=== PATIENT | female | born 1990 | race Caucasian/White ===

== ENCOUNTER 2023-04-08 10:06 | Outpatient (OUT) | payer OTHER, SELFPAY ==
--- NOTE | 2023-04-08 10:07 | US_ITS ---
[address] [address] Patient Name: AUDREY DOZIER MRN: [id number] date: 1990 Sex: F Assigned Patient Location: US Current Patient Location: US Accession/Order Number: [id number] Exam Date: 04/08/2023 10:09 Report Date: 04/08/2023 11:36 At the request of: CHEYENNE BLOOM Procedure: US OB transvaginal EXAMINATION: US OB transvaginal HISTORY: Missed menses COMPARISON: No relevant comparison available. FINDINGS: Torres intrauterine gestation Gestational sac: 3.4 cm, 8 weeks 4 days CRL: 1.9 cm, 8 weeks 3 days Yolk sac: 3.3 mm Heart rate: 160 beats minute Cervix: Closed, 4.6 cm The uterus is normal, anteverted The ovaries are normal. 2.2 cm right ovarian cystic lesion, favor a corpus luteal cyst Clinical age: 8 weeks 1 day Clinical GUNJAN: 11/17/2023 Ultrasound age: 8 weeks 3 days Ultrasound GUNJAN: 11/15/2023 US/US OB transvaginal IMPRESSION: Viable torres intrauterine gestation measuring 8 weeks 3 days Electronically authenticated by: ROSARIO GARRISON Date: 04/08/2023 11:36
[2023-04-08 14:03] LABS: Basophils Percent Auto 0.3 % (0.2-2.0); Eosinophils Absolute Auto 0.1 10^3/uL (0.0-0.7); Eosinophils Percent Auto 0.9 % (0.9-7.0); Hematocrit 36.7 % (36.0-48.0); Hemoglobin 12.5 g/dL (12.0-16.0); Immature Granulocytes Abs Auto 0.03 10^3/uL (0.00-0.03); Immature Granulocytes Pct Auto 0.3 % (0.0-0.5); Lymphocytes Absolute Auto 2.3 10^3/uL (1.2-3.8); Lymphocytes Percent Auto 20.1 % (20.5-60.0); Mean Corpuscular HGB Conc 34.1 g/dL (29.9-35.2); Mean Corpuscular Hemoglobin 29.1 pg (26.7-34.0); Mean Corpuscular Volume 85.3 fL (81.0-99.0); Mean Platelet Volume 10.6 fL (9.5-13.5); Monocytes Absolute Auto 0.6 10^3/uL (0.3-0.8); Monocytes Percent Auto 4.7 % (1.7-12.0); Neutrophils Absolute Auto 8.6 10^3/uL (1.4-6.5); Neutrophils Percent Auto 73.7 % (43.0-75.0); Platelet Count 349 10^3/uL (150-450); Red Cell Distribution Width 13.4 % (11.0-15.0); White Blood Count 11.6 10^3/uL (4.0-11.0)
[2023-04-08 14:07] LABS: Estimated Average Glucose 97 mg/dL
[2023-04-08 14:47] LABS: Thyroid Stimulating Hormone 1.054 uIU/mL (0.358-3.740)
[2023-04-09 07:41] LABS: Rubella Antibodies, IgG 1.45 index (Immune >0.99)
[2023-04-09 10:49] LABS: HBsAg Screen Negative (Negative); HCV Ab Non Reactive (Non Reactive); HIV Ab/p24 Ag Screen Non Reactive (Non Reactive)
[2023-04-09 11:04] LABS: Rapid Plasma Reagin, Quant Non Reactive titer (NonRea<1:1)
== END 2023-04-08 10:07 | disposition home or self-care (01) ==
LOC: US 10:06
PROVIDERS: Visit Provider Obstetrics & Gynecology
DX: Z34.91 Encounter for supervision of normal pregnancy, unspecified, first trimester (principal); Z3A.08 8 weeks gestation of pregnancy; N92.6 Irregular menstruation, unspecified
CPT/HCPCS: 36415; 76817; 83036; 84443; 85025; 86592; 86762; 86803; 86850; 86900; 86901; 87086; 87340; 87389

== ENCOUNTER 2023-05-17 20:18 | Emergency (ER) | payer OTHER, SELFPAY ==
[2023-05-17] VITALS (11 sets, daily range): BP systolic 99–110; BP diastolic 58–67; PULSE 76–96; RESP 13–20; O2SAT 96–100; BMI 25.1
--- OUTSIDE RECORDS SUMMARY | 2023-05-17 20:32 | XMS_ITS | CCD ---
Author Name Unknown Address [address] [place] [address] Organization [facility] Care Team Providers Care Customer Operations Manager Name Role Phone Nick Leonardo DO Primary Care Provider NICK LEONARDO Primary Care Unavailable YOGI MARQUEZ Referring Unavailable NICK LEONARDO Primary Care Unavailable YOGI MARQUEZ Referring Unavailable YOGI MARQUEZ Referring Unavailable JORDEN, NICK Abdullahi Primary Care Unavailable NICK LEONARDO Primary Care Unavailable YOGI MARQUEZ Referring Unavailable Cristal Guidry Unavailable WOLF ., DR QUINN Attending Unavailable WOLF ., DR QUINN Admitting Unavailable WOLF ., DR QUINN Consulting Unavailable JORDEN, DR TUCKER Primary Care Unavailable WOLF ., DR QUINN Consulting Unavailable WOLF ., DR QUINN Attending Unavailable JORDEN, DR TUCKER Primary Care Unavailable WOLF ., DR QUINN Admitting Unavailable WOLF ., DR QUINN Admitting Unavailable WOLF ., DR QUINN Attending Unavailable WOLF ., DR QUINN Consulting Unavailable JORDEN, DR TUCKER Primary Care Unavailable WOLF ., DR QUINN Consulting Unavailable WOLF ., DR QUINN Attending Unavailable WOLF ., DR QUINN Admitting Unavailable JORDEN, DR TUCKER Primary Care Unavailable ZIEBER, DR YOGI Witt Consulting Unavailable WOLF ., DR QUINN Consulting Unavailable WOLF ., DR QUINN Attending Unavailable WOLF ., DR QUINN Admitting Unavailable JORDEN, DR TUCKER Primary Care Unavailable WOLF ., DR QUINN Admitting Unavailable WOLF ., DR QUINN Attending Unavailable WOLF ., DR QUINN Consulting Unavailable JORDEN, DR TUCKER Primary Care Unavailable WOLF ., DR QUINN Admitting Unavailable WOLF ., DR QUINN Attending Unavailable JORDEN, DR TUCKER Primary Care Unavailable JC, DR CAMILO Witt Consulting Unavailable JC, DR CAMILO Witt Attending Unavailable JC, DR CAMILO Witt Admitting Unavailable JORDEN, DR TUCKER Primary Care Unavailable DERIC VO Consulting Unavailable GLENN ., BRENT Consulting Unavailable MARY, ROSARIO Consulting Unavailable JORDEN, DR TUCKER Primary Care Unavailable KARASIK ., DR DURHAM Admitting Unavailabl e KARASIK ., DR DURHAM Consulting Unavailabl e KARASIK ., DR DURHAM Attending Unavailabl e WOLF ., DR QUINN Consulting Unavailable GEMBUS, HOSEA Consulting Unavailable WOLF ., DR QUINN Procedure Practitioner Unavail able WOLF ., DR QUINN Consulting Unavailable WOLF ., DR QUINN Attending Unavailable WOLF ., DR QUINN Admitting Unavailable REQUEST, DR FLORES LISTED Primary Care Unavaila ana ZIALISA, DR YOGI Witt Consulting Unavailable WOLF ., DR QUINN Admitting Unavailable WOLF ., DR QUINN Consulting Unavailable WOLF ., DR QUINN Attending Unavailable BALL, DR TUCKER Primary Care Unavailable WOLF ., DR QUINN Attending Unavailable WOLF ., DR QUINN Admitting Unavailable WOLF ., DR QUINN Consulting Unavailable JORDEN, DR TUCKER Primary Care Unavailable GILBERTOEBGOKUL, DR YOGI Witt Consulting Unavailable WOLF ., DR QUINN Attending Unavailable WOLF ., DR QUINN Admitting Unavailable WOLF ., DR QUINN Consulting Unavailable JORDEN, DR TUCKER Primary Care Unavailable WAYNE, DR YOGI Witt Consulting Unavailable Jorden, Nick Unavailable CHEYENNE MEADE Attending Unavailable Medications Current Medications Medication Drug Class(es) Dates Sig (Normalized) Sig (Original) 24 hr metoprolol succinate 25 mg extended release oral tablet (3 sources) beta-Adrenergic Ekta take 1 tablet by mouth every twenty-four hours Metoprolol Succinate ER 25 MG 1 tablet Orally Once a day Active Metoprolol Succi brooke Active predniSONE 20 mg oral tablet (2 sources) Start: 07-28-2022 take 1 tablet by mouth twice daily predniSONE 20 MG 1 tablet Orally bid w/ food for 5 days July, Active (3 sources) Active Vit-Fe Fumarate-FA (PREPLUS) 27-1 MG TABS (1 source) Start: 02-10-2021 take 1 tablet by mouth once daily Vit-Fe Fumarate-FA (PREPLUS) 27-1 MG TABS TAKE ONE TABLET BY MOUTH ONCE DAILY FOR 30 DAYS 0 02/10/2021 Active Completed/Discontinued Medications Medication Drug Class(es) Dates Sig (Normalized) Sig (Original) omeprazole 20 mg delayed release oral capsule (2 sources) Proton Pump Inhibitor take 1 capsule by mouth once daily Omeprazole 20 MG 1 capsule 30 minutes before morning meal Orally Once a day Not-Taking Problems Active Problems Problem Classification Problem Date Documented Date Episodic/Chronic Anxiety disorders (2 sources) Generalized anxiety disorder; Translations: [Generalized anxiety disorder] Chronic Cardiac dysrhythmias (2 sources) Palpitations; Translations: [Palpitations] Episodic Conditions associated with dizziness or vertigo (2 sources) Lightheadedness; Translations: [Dizziness and giddiness] Episodic Immunizations and screening for infectious disease (6 sources) Contact with and (suspected) exposure to other viral communicable diseases; Translations: [Encounter for screening for human papillomavirus (HPV)] Onset: 08-20-2021 Episodic Lymphadenitis (1 source) Localized enlarged lymph nodes Episodic Other infections; including parasitic (1 source) 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; Translations: [Post-COVID syndrome] 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-2021 03-09-2021 Chronic Other skin disorders (1 source) Sebaceous cyst Episodic Other upper respiratory infections (2 sources) Acute pharyngitis, unspecified; Translations: [Acute upper respiratory infection, unspecified] Episodic Sprains and strains (1 source) Strain of muscle, fascia and tendon at neck level, initial encounter Episodic Unclassified (1 source) CONTACT W/AND (SUSP) EXPOS COVID-19; Translations: [CONTACT W/AND (SUSP) EXPOS COVID-19] Onset: 09-03-2021 Past or Other Problems Problem Classification Problem Date Documented Date Episodic/Chronic Diabetes mellitus without complication (4 sources) Other abnormal glucose; Translations: [OTHER ABNORMAL GLUCOSE] Onset: 12-11-2021 Episodic Hemorrhage during ; abruptio placenta; placenta previa (5 sources) Low lying placenta NOS or without hemorrhage, unspecified trimester; Translations: [Low lying placenta NOS or without hemorrhage, second trimester] Onset: 09-18-2021 Episodic OB-related trauma to perineum and vulva (1 source) Fourth degree perineal laceration during delivery; Translations: [FOURTH DEG PERINEAL LAC DUR DELIV] Onset: 02-04-2022 Episodic Other complications of (4 sources) Maternal care for excessive growth, third trimester, not applicable or unspecified; Translations: [MAT CARE EXCSS FTL GRTH 3RD TRI UNS] Onset: 01-15-2022 Episodic Other complications of (1 source) Other specified related conditions, second trimester; Translations: [OTH SPEC PREG RELATED COND 2ND TRI] Onset: 09-03-2021 Episodic Other female genital disorders (1 source) Other specified noninflammatory disorders of vagina; Translations: [OTH SPEC NONINFLAMMATORY D/O VAGINA] Onset: 08-20-2021 Episodic Other lower respiratory disease (2 sources) Dyspnea; Translations: [Shortness of breath] Onset: 08-22-2021 Episodic Other lower respiratory disease (2 sources) Shortness of breath; Translations: [SHORTNESS OF BREATH] Onset: 09-03-2021 Episodic Other lower respiratory disease (1 source) Other forms of dyspnea; Translations: [OTHER FORMS OF DYSPNEA] Onset: 09-03-2021 Episodic Other and delivery including normal (9 sources) Encounter for routine follow-up; Translations: [Single live ] Onset: 09-04-2021 Episodic Other screening for suspected conditions (not mental disorders or infectious disease) (16 sources) Encounter for screening for Streptococcus B; Translations: [Encounter for screening for diabetes mellitus] Onset: 08-18-2021 Episodic Residual codes; unclassified (1 source) 38 weeks gestation of ; Translations: [38 WEEKS GESTATION OF ] Onset: 02-04-2022 Episodic Residual codes; unclassified (1 source) 37 weeks gestation of ; Translations: [37 WEEKS GESTATION OF ] Onset: 01-15-2022 Episodic Residual codes; unclassified (1 source) 32 weeks gestation of ; Translations: [32 WEEKS GESTATION OF ] Onset: 12-13-2021 Episodic Residual codes; unclassified (1 source) 20 weeks gestation of ; Translations: [20 WEEKS GESTATION OF ] Onset: 09-18-2021 Episodic Residual codes; unclassified (1 source) 17 weeks gestation of ; Translations: [17 WEEKS GESTATION OF ] Onset: 09-03-2021 Episodic Results Test Name Value Interpretation Reference Range Facility COVID/FLU/RSV RT-PCRon 03-10 -2023 SARS-CoV-2 (COVID-19) RNA DEVIN+probe Ql (Unsp spec) Negative [facility] Other COVID/FLU/RSV RT-PCR Negative [employer] Other [facility] 06-04-2022 S. pyogenes Org specific cx Ql (Throat) Negative [facility] Other Quick St[facility] Other CBC AUTO DIFFon 01-24-2022 BASO # 0.1 103/ul Normal 0.0-0.1 [facility] Comment on above: Performed By: #### A FPTET #### [facility] [address] [place] [address] Dr. Belkys Fajardo Basophils/100 WBC (Bld) 0.3 % Normal 0.2-2.0 [facility] Comment on above: Performed By: #### A FPTET #### [facility] [address] [place] [address] Dr. Belkys Fajardo EO # 0.1 103/ul Normal 0.0-0.7 [facility] Comment on above: Performed By: #### A FPTET #### [facility] [address] [place] [address] Dr. Belkys Fajardo Eosinophils/100 WBC (Bld) 0.9 % Normal 0.9-7.0 [facility] Comment on above: Performed By: #### A FPTET #### [facility] [address] [place] [address] Dr. Belkys Fajardo Erythrocyte distribution width (RBC) [Ratio] 14.0 % Normal 11.0-15.0 [facility] Comment on above: Performed By: #### A FPTET #### [facility] [address] [place] [address] Dr. Belkys Fajardo Hematocrit (Bld) [Volume fraction] 24.8 % Critically low 36.0-48.0 [facility] Comment on above: Performed By: #### A FPTET #### [facility] [address] [place] [address] Dr. Belkys Fajardo Hemoglobin (Bld) [Mass/Vol] 8.2 g/dL Critically low 12.0-16.[address] [facility] Comment on above: Performed By: #### A FPTET #### [facility] [address] [place] [address] Dr. Belkys Fajardo IG # 0.23 10e3/ul Critically high 0.00-0.03 [facility] Comment on above: Performed By: #### A FPTET #### [facility] [address] [place] [address] Dr. Belkys Fajardo IG % 1.5 % Critically high 0.0-0.5 [facility] Comment on above: Performed By: #### A FPTET #### [facility] [address] [place] [address] Dr. Belkys Fajardo LYMPH # 2.4 103/ul Normal 1.2-3.8 [facility] Comment on above: Performed By: #### A FPTET #### [facility] [address] [place] [address] Dr. Belkys Fajardo Lymphocytes/100 WBC (Bld) 15.5 % Critically low 20.5-60.0 [facility] Comment on above: Performed By: #### A FPTET #### [facility] [address] [place] [address] Dr. Belkys Fajardo MANUAL DIFF REQ NO Normal [facility] Comment on above: Performed By: #### A FPTET #### [facility] [address] [place] [address] Dr. Belkys Fajardo MCH (RBC) [Entitic mass] 28.5 pg Normal 26.7-34.[address] [facility] Comment on above: Performed By: #### A FPTET #### [facility] [address] [place] [address] Dr. Beklys Fajardo MCHC (RBC) [Mass/Vol] 33.1 g/dL Normal 29.9-35.[address] [facility] Comment on above: Performed By: #### A FPTET #### [facility] [address] [address] [address] Belkys Fajardo MCV (RBC) [Entitic vol] 86.1 fL Normal 81.0-99.[address] [facility] Comment on above: Performed By: #### A FPTET #### [facility] [address] [address] [address] Belkys Fajardo MONO # 0.8 103/ul Normal 0.3-0.[address] [facility] Comment on above: Performed By: #### A FPTET #### [facility] [address] [place] [address] Dr. Belkys Fajardo Monocytes/100 WBC (Bld) 5.4 % Normal 1.7-12.[address] [facility] Comment on above: Performed By: #### A FPTET #### [facility] [address] [place] [address] Dr. Belkys Fajardo NEUT # 11.6 103/ul Critically high 1.4-6.[address] [facility] Comment on above: Performed By: #### A FPTET #### [facility] [address] [place] [address] Dr. Belkys Fajardo Neutrophils/100 WBC (Bld) 76.4 % Critically high 43.0-75.[address] [facility] Comment on above: Performed By: #### A FPTET #### [facility] [address] [place] [address] Dr. Belkys Fajardo Platelet mean volume (Bld) [Entitic vol] 10.2 fL Normal 9.5-13.[address] [facility] Comment on above: Performed By: #### A FPTET #### [facility] [address] [place] [address] Dr. Belkys Fajardo PLT 235 103/ul Normal 150-[address] [facility] Comment on above: Performed By: #### A FPTET #### [facility] [address] [place] [address] Dr. Belkys Fajardo RBC 2.88 106/ul Critically low 4.20-5.40 [facility] Comment on above: Performed By: #### A FPTET #### [facility] [address] [place] [address] Dr. Belkys Fajardo WBC 15.2 103/ul Critically high 4.0-11.[address] [facility] Comment on above: Performed By: #### A FPTET #### [facility] [address] [place] [address] Dr. Belkys Fajardo CBC AUTO DIFFon 01-23-2022 BASO # 0.1 103/ul Normal 0.0-0.[address] [facility] Comment on above: Performed By: #### A FPTET #### [facility] [address] [place] [address] Dr. Belkys Fajardo Basophils/100 WBC (Bld) 0.4 % Normal 0.2-2.0 [facility] Comment on above: Performed By: #### A FPTET #### [facility] [address] [place] [address] Dr. Belkys Fajardo EO # 0.1 103/ul Normal 0.0-0.7 [facility] Comment on above: Performed By: #### A FPTET #### [facility] [address] [place] [address] Dr. Belkys Fajardo Eosinophils/100 WBC (Bld) 0.5 % Critically low 0.9-7.[address] [facility] Comment on above: Performed By: #### A FPTET #### [facility] [address] [place] [address] Dr. Belkys Fajardo Erythrocyte distribution width (RBC) [Ratio] 13.8 % Normal 11.0-15.[address] [facility] Comment on above: Performed By: #### A FPTET #### [facility] [address] [place] [address] Dr. Belkys Fajardo Hematocrit (Bld) [Volume fraction] 32.5 % Critically low 36.0-48.[address] [facility] Comment on above: Performed By: #### A FPTET #### [facility] [address] [place] [address] Dr. Belkys Fajardo Hemoglobin (Bld) [Mass/Vol] 11.0 g/dL Critically low 12.0-16.0 [facility] Comment on above: Performed By: #### A FPTET #### [facility] [address] [address] [address] Belkys Fajardo IG # 0.31 10e3/ul Critically high 0.00-0.03 [facility] Comment on above: Performed By: #### A FPTET #### [facility] [address] [address] [address] Belkys Fajardo IG % 1.6 % Critically high 0.0-0.5 [facility] Comment on above: Performed By: #### A FPTET #### [facility] [address] [address] [address] Belkys Fajardo LYMPH # 2.0 103/ul Normal 1.2-3.8 [facility] Comment on above: Performed By: #### A FPTET #### [facility] [address] [place] [address] Dr. Belkys Fajardo Lymphocytes/100 WBC (Bld) 10.2 % Critically low 20.5-60.0 [facility] Comment on above: Performed By: #### A FPTET #### [facility] [address] [place] [address] Dr. Belkys Fajardo MANUAL DIFF REQ NO Normal [facility] Comment on above: Performed By: #### A FPTET #### [facility] [address] [address] [address] Belkys Fajardo MCH (RBC) [Entitic mass] 28.4 pg Normal 26.7-34.0 [facility] Comment on above: Performed By: #### A FPTET #### [facility] [address] [address] [address] Belkys Fajardo MCHC (RBC) [Mass/Vol] 33.8 g/dL Normal 29.9-35.2 [facility] Comment on above: Performed By: #### A FPTET #### [facility] [address] [place] [address] Dr. Belkys Fajardo MCV (RBC) [Entitic vol] 83.8 fL Normal 81.0-99.0 [facility] Comment on above: Performed By: #### A FPTET #### [facility] [address] [place] [address] Dr. Belkys Fajardo MONO # 0.9 103/ul Critically high 0.3-0.8 [facility] Comment on above: Performed By: #### A FPTET #### [facility] [address] [place] [address] Dr. Belkys Fajardo Monocytes/100 WBC (Bld) 4.8 % Normal 1.7-12.[address] [facility] Comment on above: Performed By: #### A FPTET #### [facility] [address] [place] [address] Dr. Belkys Fajardo NEUT # 16.0 103/ul Critically high 1.4-6.[address] [facility] Comment on above: Performed By: #### A FPTET #### [facility] [address] [place] [address] Dr. Belkys Fajardo Neutrophils/100 WBC (Bld) 82.5 % Critically high 43.0-75.[address] [facility] Comment on above: Performed By: #### A FPTET #### [facility] [address] [place] [address] Dr. Belkys Fajardo Platelet mean volume (Bld) [Entitic vol] 10.1 fL Normal 9.5-13.[address] [facility] Comment on above: Performed By: #### A FPTET #### [facility] [address] [place] [address] Dr. Belkys Fajardo PLT 301 103/ul Normal 150-[address] [facility] Comment on above: Performed By: #### A FPTET #### [facility] [address] [place] [address] Dr. Belkys Fajardo RBC 3.88 106/ul Critically low 4.20-5.40 [facility] Comment on above: Performed By: #### A FPTET #### [facility] [address] [place] [address] Dr. Belkys Fajardo WBC 19.3 103/ul Critically high 4.0-11.[address] [facility] Comment on above: Performed By: #### A FPTET #### [facility] [address] [place] [address] Dr. Belkys Fajardo CULTURE URINEon 01-23-2022 CULTURE URINE Culture Observations : LIGHT GROWTH OF MIXED GENITAL HEYDI. NO POTENTIAL PATHOGENS SEEN. Normal [facility] Comment on above: Performed By: #### U ACSIND, UMICRO #### [facility] [address] [address] [address] Belkys Fajardo Covid-19 PCR (CVDTBH)on 12-27 SARS-CoV-2 (COVID-19) RNA DEVIN+probe Ql (Unsp spec) Not detected Normal NOT DETECTED [facility] Comment on above: Result Comment: When diagnostic testing is negative, the possibility of a false negative should be considered in the context of a patient's recent exposures and the presence of clinical signs and symptoms consistent with SARS-CoV-2. This test is not yet approved or cleared by the [place] FDA. When there are no FDA-approved or cleared tests available, and other criteria are met, FDA can make tests available under an emergency access mechanism called an Emergency Use Authorization (EUA). The EUA for this test is supported by the [employer] of Health and Human Service's declaration that circumstances exist to justify the emergency use of in vitro diagnostics for the detection and/or diagnosis of the virus that causes COVID-19. This EUA will remain in effect for the duration of the COVID-19 declaration justifying emergency of IVDs, unless it is terminated or revoked by the FDA (after which the test may no longer be used). Performed By: #### C VDTBH #### [facility] [address] [place] [address] Dr. Belkys Fajardo DRUG SCREEN RAPID (URINE)on 01-23-2022 AMP Negative Normal NEGATIVE [facility] Comment on above: Performed By: #### A FPTET #### [facility] [address] [place] [address] [id number] [address] Belkys Fajardo BAR Negative Normal NEGATIVE [facility] Comment on above: Performed By: #### A FPTET #### [facility] [address] [place] [address] Dr. Belkys Fajardo BUP Negative Normal NEGATIVE [facility] Comment on above: Performed By: #### A FPTET #### [facility] [address] [place] [address] Dr. Belkys Fajardo BZO Negative Normal NEGATIVE [facility] Comment on above: Performed By: #### A FPTET #### [facility] [address] [place] [address] Dr. Belkys Fajardo VALENCIA Negative Normal NEGATIVE [facility] Comment on above: Performed By: #### A FPTET #### [facility] [address] [place] [address] Dr. Belkys Fajardo CUT-OFFS SEE BELOW Normal [facility] Comment on above: Result Comment: AMP (Amphetamine): 500ng/mL, BAR (Barbituates): 200 ng/mL, BZO (Benzodiazepines): 150 ng/mL, BUP (Buprenorphine): 10 ng/mL, VALENCIA (Cocaine): 150 ng/mL, mAMP (Methamphetamine): 500 ng/mL, MTD (Methadone): 200 ng/mL, OPI (Opiates): 100 ng/mL, OXY (Oxycodone): 100 ng/mL, PCP (Phencyclidine): 25 ng/mL, PPX (Propoxyphene): 300 ng/mL, THC (Cannabinoids): 50 ng/mL, TCA (Trycyclic Antidepressants): 300 ng/mL Performed By: #### A FPTET #### [facility] [address] [place] [address] Dr. Belkys Fajardo DRUG CUT HEADER DRUG CLASS TEST SYSTEM CUT-OFF CONCENTRATIONS ARE FOLLOWS: Normal [facility] Comment on above: Performed By: #### A FPTET #### [facility] [address] [place] [address] Dr. Belkys Fajardo mAMP Negative Normal NEGATIVE [facility] Comment on above: Performed By: #### A FPTET #### [facility] [address] [place] [address] Dr. Belkys Fajardo MTD Negative Normal NEGATIVE [facility] Comment on above: Performed By: #### A FPTET #### [facility] [address] [address] [address] Belkys Fajardo OPI Negative Normal NEGATIVE [facility] Comment on above: Performed By: #### A FPTET #### [facility] [address] [place] [address] Dr. Belkys Fajardo OXY Negative Normal NEGATIVE [facility] Comment on above: Performed By: #### A FPTET #### [facility] [address] [address] [address] Belkys Fajardo PCP Negative Normal NEGATIVE [facility] Comment on above: Performed By: #### A FPTET #### [facility] [address] [place] [address] Dr. Belkys Fajardo PPX Negative Normal NEGATIVE [facility] Comment on above: Performed By: #### A FPTET #### [facility] [address] [place] [address] Dr. Belkys Fajardo TCA Negative Normal NEGATIVE [facility] Comment on above: Performed By: #### A FPTET #### [facility] [address] [place] [address] Dr. Belkys Fajardo THC Negative Normal NEGATIVE [facility] Comment on above: Performed By: #### A FPTET #### [facility] [address] [place] [address] Dr. Belyks Fajardo TYPE AND SCREENon 01-23-2022 TYPE AND SCREEN Negative Normal [facility] Comment on above: Performed By: #### U MARIO UMICRO #### [facility] [address] [place] [address] Dr. Belkys Fajardo UA (CLEAN/CATCH) BIT SHARPENER/MICRO I F IND.on 01-23-2022 Bilirubin Ql (U) Negative Normal NEGATIVE [facility] Comment on above: Performed By: #### U MARIO UMICRO #### [facility] [address] [place] [address] Dr. Belkys Fajardo Clarity (U) CLEAR Normal CLEAR [facility] Comment on above: Performed By: #### U MARIO UMICRO #### [facility] [address] [address] [address] Belkys Fajardo Color (U) LT. YELLOW Normal YELLOW [facility] Comment on above: Performed By: #### U ACSIND, UMICRO #### [facility] [address] [address] [address] Belkys Fajardo Glucose Ql (U) Negative Normal NEGATIVE [facility] Comment on above: Performed By: #### U ACSIND, UMICRO #### [facility] [address] [address] [address] Belkys Fajardo Hemoglobin Ql (U) TRACE-INTACT Abnormal NEGATIVE [facility] Comment on above: Performed By: #### U ACSIND, UMICRO #### [facility] [address] [place] [address] Dr. Belkys Fajardo Ketones Ql (U) Negative Normal NEGATIVE [facility] Comment on above: Performed By: #### U ACSIND, UMICRO #### [facility] [address] [address] [address] Belkys Fajardo LEUKOCYTES MODERATE Abnormal NEGATIVE [facility] Comment on above: Performed By: #### U ACSTAMELA, UMICRO #### [facility] [address] [address] [address] Belkys Fajardo Nitrite Ql (U) Negative Normal NEGATIVE [facility] Comment on above: Performed By: #### U ACSIND, UMICRO #### [facility] [address] [address] [address] Belkys Fajardo pH (U) 6.5 [pH] Normal 5-9 [facility] Comment on above: Performed By: #### U ACSIND, UMICRO #### [facility] [address] [address] [address] Belkys Fajardo SPEC GRAVITY 1.015 Normal 1.005-<=1.025 [facility] Comment on above: Performed By: #### U ACSIND, UMICRO #### [facility] [address] [address] [address] Belkys Fajardo UA PROTEIN Negative Normal NEGATIVE/ TRACE [facility] Comment on above: Performed By: #### U ACSIND, UMICRO #### [facility] [address] [address] [address] Belkys Fajardo UR MICRO IND INDICATED Normal [facility] Comment on above: Performed By: #### U ACSIND, UMICRO #### [facility] [address] [address] [address] Belkys Fajardo Urobilinogen Qn (U) 0.2 {Jakob'U}/dL Normal 0.2 - 1. [address] [facility] Comment on above: Performed By: #### U ACSIND, UMICRO #### [facility] [address] [address] [address] Belkys Fajardo URINE MICROSCOPIC ONLYon BACTERIA SMALL Abnormal NONE SEEN [facility] Comment on above: Performed By: #### U ACSIND, UMICRO #### [facility] [address] [place] [address] Dr. Belkys Fajardo Bacteria identified Cx Nom (U) INDICATED Normal [facility] Comment on above: Performed By: #### U ACSIND, UMICRO #### [facility] [address] [place] [address] Dr. Belkys Fajardo CAST NONE SEEN Normal NONE SEEN [facility] Comment on above: Performed By: #### U ACSIND, UMICRO #### [facility] [address] [place] [address] Dr. Belkys Fajardo Crystals LM Nom (Urine sed) NONE SEEN Normal NONE SEEN [facility] Comment on above: Performed By: #### U ACSIND, UMICRO #### [facility] [address] [address] [address] Belkys Fajardo Epithelial cells LM Ql (Urine sed) FEW Abnormal NONE SEEN /RARE [facility] Comment on above: Performed By: #### U ACSIND, UMICRO #### [facility] [address] [address] [address] Belkys Fajardo MUCOUS NONE SEEN Normal NONE SEEN [facility] Comment on above: Performed By: #### U ACSIND, UMICRO #### [facility] [address] [address] [address] Belkys Fajardo RBC NONE SEEN Abnormal 0-2 [facility] Comment on above: Performed By: #### U JOSÉ ANTONIO MARTIN #### [facility] [address] [address] [address] Belkys Fajardo WBC 5-10 Abnormal NONE SEEN [facility] Comment on above: Performed By: #### U MARIO UMNARAYANRO #### [facility] [address] [address] [address] Belkys Fajardo US PREG GROWTHon 01-12-2022 US PREG GROWTH EXAMINATION: US PREG GROWTH HISTORY: Large for gestation age fetus COMPARISON: Ultrasound growth 12/08/2021 FINDINGS: Heart Rate: 149.0 bpm Number: 1.0 Position: CEPHALIC Amniotic Fluid Volume: 9.5 cm; between fifth and 95th percentile Maximum Vertical Pocket: 3.3 cm BIOMETRY: BPD: 8.9 cm cm; 36 weeks 0 days HC: 32.8 cmcm; 37 weeks 2 days AC: 33.8 cm cm; 37 weeks 5 days FL: 7.5 cm cm; 38 weeks 2 days EFW: 3256.7 grams; 67% FL/AC: 22.1 FL/BPD: 84.0 HC/AC: 1.0 GESTATIONAL AGE: Age by EDC: 37 weeks 2 days GUNJAN by EDC: 01/31/2022 Age by US: 37 weeks 2 days GUNJAN by US: 01/31/2022 IMPRESSION: 1. Single live intrauterine with growth detailed above. Electronically authenticated by: YOGI BLACK Date: 2022-01-12 21:[address] [facility] GROUP B STREP CULTUREon 12-26 S. agalactiae Ag Ql (Unsp spec) Culture Observations: NEGATIVE FOR GROUP B STREPTOCOCCUS. Normal [facility] Comment on above: Performed By: #### G BSCX #### [facility] [address] [place] [address] Dr. Belkys Fajardo GTT 3 HR PREGon 12-11-2021 Glucose [Mass/Vol] 91 mg/dL Normal 74-106 [facility] Comment on above: Performed By: #### G TT3P #### [facility] [address] [address] [address] Belkys Fajardo Glucose [Mass/Vol] 172 mg/dL Normal [facility] Comment on above: Performed By: #### G TT3P #### [facility] [address] [address] [address] Belkys Fajardo Glucose [Mass/Vol] 148 mg/dL Normal [facility] Comment on above: Performed By: #### G TT3P #### [facility] [address] [address] [address] Belkys Fajardo Glucose [Mass/Vol] 58 mg/dL Normal [facility] Comment on above: Performed By: #### G TT3P #### [facility] [address] [address] [address] Belkys Fajardo US PREG GROWTHon 12-08-2021 US PREG GROWTH EXAMINATION: US PREG GROWTH HISTORY: Large for gestation age fetus COMPARISON: Ultrasound anatomy 09/16/2021 FINDINGS: Heart Rate: 165.0 bpm Number: 1.0 Position: CEPHALIC Amniotic Fluid Volume: 14.4 cm Maximum Vertical Pocket: 4.9 cm BIOMETRY: BPD: 8.1 cm cm; 32 weeks 4 days; HC: 30.6 cmcm; 34 weeks 0 days AC: 29.5 cm cm; 33 weeks 3 days FL: 6.7 cm cm; 34 weeks 2 days EFW: 2247.3 grams; 82% FL/AC: 22.6 FL/BPD: 81.9 HC/AC: 1.0 GESTATIONAL AGE: Age by EDC: 32 weeks 2 days GUNJAN by EDC: 01/31/2022 Age by US: 33 weeks, 4 days GUNJAN by US: 01/22/2022 IMPRESSION: 1. Single live intrauterine with growth detailed above. Electronically authenticated by: YOGI BLACK Date: 2021-12-08 16:52 Normal [facility] GLUCOSE - 1HRon 11-12-2021 Glucose [Mass/Vol] 143 mg/dL Critically high 74-106 T [facility] Comment on above: Performed By: #### U ACSIND UMICRO #### [facility] [address] [address] [address] Belkys Fajardo HEMOGRAM AND PLATELon 2021 Hematocrit (Bld) [Volume fraction] 31.7 % Critically low 36.0-48.0 [facility] Comment on above: Performed By: #### A FPTET #### [facility] [address] [place] [address] Dr. Belkys Fajardo Hemoglobin (Bld) [Mass/Vol] 10.4 g/dL Critically low 12.0-16.[address] [facility] Comment on above: Performed By: #### A FPTET #### [facility] [address] [place] [address] Dr. Belkys Fajardo MCH (RBC) [Entitic mass] 28.8 pg Normal 26.7-34.0 [facility] Comment on above: Performed By: #### A FPTET #### [facility] [address] [place] [address] Dr. Belkys Fajardo MCHC (RBC) [Mass/Vol] 32.8 g/dL Normal 29.9-35.[address] [facility] Comment on above: Performed By: #### A FPTET #### [facility] [address] [place] [address] Dr. Belkys Fajardo MCV (RBC) [Entitic vol] 87.8 fL Normal 81.0-99.0 [facility] Comment on above: Performed By: #### A FPTET #### [facility] [address] [place] [address] Dr. Belkys Fajardo PLT 261 103/ul Normal 150-[address] [facility] Comment on above: Performed By: #### A FPTET #### [facility] [address] [place] [address] Dr. Belkys Fajardo RBC 3.61 106/ul Critically low 4.20-5.40 [facility] Comment on above: Performed By: #### A FPTET #### [facility] [address] [place] [address] Dr. Belkys Fajardo WBC 11.5 103/ul Critically high 4.0-11.[address] [facility] Comment on above: Performed By: #### A FPTET #### [facility] [address] [place] [address] Dr. Belkys Fajardo US PREG PLACENTAon 2 US PREG PLACENTA EXAMINATION: US PREG PLACENTA HISTORY: Low lying placenta COMPARISON: Ultrasound placenta 10/14/2021 FINDINGS: PLACENTA: Contains a small venous seth. Lower margin of placenta 3.5 cm from os. CERVIX LENGTH: 4.0 cm, closed. HEART RATE: 155 bpm OTHER: None. IMPRESSION: 1. Posterior placenta which is no longer low-lying. Electronically authenticated by: YOGI BLACK Date: 2021-11-10 21:[address] [facility] US PREG PLACENTAon 2 US PREG PLACENTA EXAMINATION: US PREG PLACENTA HISTORY: Low lying placenta COMPARISON: Ultrasound anatomy 09/16/2021 FINDINGS: PLACENTA: Posterior with lower margin 2.5 cm from os. CERVIX LENGTH: 4.4 cm, closed. HEART RATE: 157 bpm OTHER: None. IMPRESSION: 1. Low-lying posterior placenta; no appreciable change compared to prior study. Electronically authenticated by: YOGI BLACK Date: 2021-10-14 19:56 Normal [facility] US PREG ANATOMY SINGLEon US PREG ANATOMY SINGLE EXAMINATION: US PREG ANATOMY SINGLE HISTORY: screening COMPARISON: No relevant comparison available. TECHNIQUE: Transabdominal sonographic examination was performed for obstetrical and evaluation. FINDINGS: Number: 1 Heart Rate: 161.0 bpm H.B. /min Amniotic Fluid Volume: Subjectively normal Placental Location: POSTERIOR with lower margin 2.4 cm from internal os. Cervix Length: 4.4 cm, closed. ANATOMY: Normal Structures -cerebellum, choroid plexus, cisterna magna, lateral cerebral ventricles, orbits, midline falx, hard palate, four-chamber heart, RVOT, LVOT, stomach, kidneys, bladder, umbilical cord insertion into abdomen, three-vessel cord, cervical spine, thoracic spine, lumbar spine, sacral spine, right upper extremity, left upper extremity, right lower extremity, left lower extremity. SUBOPTIMALLY SEEN: None ABNORMALITIES: None BIOMETRY: BPD: 4.6 cm 20 weeks 0 days HC: 18.1 cm 20 weeks 4 days AC: 16.8 cm 21 weeks 6 days FL: 3.3 cm 20 weeks 3 days EFW:397.1 grams; 80% FL/AC: 19.8 FL/BPD: 71.8 HC/AC: 1.1 GESTATIONAL AGE: Age by EDC: 20 weeks 3 days GUNJAN by EDC: 01/31/2022 Age by current US: 20 weeks 5 days GUNJAN by current US: 01/29/2022 IMPRESSION: 1. Single live intrauterine with growth detailed above. 2. Low-lying posterior placenta; lower margin is 2.4 cm from internal os. Electronically authenticated by: YOGI BLACK Date: 2021-09-16 16:[address] [facility] AFP TETRA PROFILE (MATERNAL) on 09-06-2021 PDF . Normal [facility] Comment on above: Performed By: #### A FPTET #### [facility] [address] [address] [address] Belkys Fajardo AFP MoM 0.86 Normal [facility] Comment on above: Performed By: #### A FPTET #### [facility] [address] [address] [address] Belkys Fajardo AFP Value 39.7 ng/mL Normal [facility] Comment on above: Performed By: #### A FPTET #### [facility] [address] [address] [address] Belkys Fajardo Comment Comment Normal [facility] Comment on above: Result Comment: Geremias Greer, Ph.D., [facility] Director . References: Available Upon Request. . Multiples Of Median Cutoffs Abbreviation Definitions For AFP Elevations IDD- Insulin Dep Diabetes Granados 2.5 Black 2.8 OSBR- Open Spina Bifida IDD 2.0 Twins 4.5 Risk DSR Cutoff 1:270 DSR- Down Syndrome Risk T18 Cutoff 1:100 T18- Trisomy 18 . Down Syndrome and Trisomy 18 screening are considered Investigational . For further inquiries contact [employer] [facility] at [phone]. Performed By: #### A FPTET #### [facility] [address] [address] [address] Belkys Fajardo MONIE MoM 0.77 Normal [facility] Comment on above: Performed By: #### A FPTET #### [facility] [address] [place] [address] Dr. Belkys Fajardo MONIE Value 113.50 pg/mL Normal [facility] Comment on above: Performed By: #### A FPTET #### [facility] [address] [place] [address] Dr. Belkys Fajardo DSR (By Age) 1 [place] 765 Normal [facility] Comment on above: Performed By: #### A FPTET #### [facility] [address] [place] [address] Dr. Belkys Fajardo DSR (Second Trimester) 1 [place] [address] [facility] Comment on above: Performed By: #### A FPTET #### [facility] [address] [place] [address] Dr. Belkys Fajardo Gest. Age on Collection Date 18.7 WEEKS [facility] Comment on above: Performed By: #### A FPTET #### [facility] [address] [place] [address] Dr. Belkys Fajardo Gestat. Age Based On LMP [facility] Comment on above: Result Comment: 03/30 Performed By: #### A FPTET #### [facility] [address] [place] [address] Dr. Belkys Fajardo hCG MoM 0.78 Normal [facility] Comment on above: Performed By: #### A FPTET #### [facility] [address] [place] [address] [place] [address] m[IU]/mL [facility] Comment on above: Performed By: #### A FPTET #### [facility] [address] [place] [address] Dr. Belkys Fajardo Insulin Dep Diabetes No Normal [facility] Comment on above: Performed By: #### A FPTET #### [facility] [address] [place] [address] Dr. Belkys Fajardo Interpretation Comment Normal [facility] Comment on above: Result Comment: Inte rpretation: Screen Negative This result is screen negative for OSB, Down Syndrome and Trisomy 18. The AFP MoM and patient specific risks calculated are based on the gestational age and the clinical information provided. This test can identify up to 80% of open neural tube defects. Closed neural tube defects and some open defects may not be detected by this test. The combination of maternal age, AFP, hCG, uE3, and MONIE identifies 75-80% of Down Syndrome. The combination of maternal age, AFP, hCG and uE3 identifies 60% of Trisomy 18 pregnancies. The [employer] [employer] recommends amniocentesis be offered to women age 35 and older. Recalculations are not recommended when gestational dating by LMP and ultrasound are within 10 days. Performed By: #### A FPTET #### [facility] [address] [place] [address] Dr. Belkys Fajardo [age] Normal [facility] Comment on above: Performed By: #### A FPTET #### [facility] [address] [place] [address] Dr. Belkys Fajardo Multiple Gestation No Normal [facility] Comment on above: Performed By: #### A FPTET #### [facility] [address] [place] [address] Dr. Belkys Fajardo OS[place] 1 [place] [id number] Normal [facility] Comment on above: Performed By: #### A FPTET #### [facility] [address] [place] [address] Dr. Belkys Fajardo Race Normal [facility] Comment on above: Performed By: #### A FPTET #### [facility] [address] [place] [address] Dr. Belkys Fajardo Results Report Normal [facility] Comment on above: Performed By: #### A FPTET #### [facility] [address] [place] [address] Dr. Belkys Fajardo T18 (By Age) 1:2981 Normal [facility] Comment on above: Performed By: #### A FPTET #### [facility] [address] [place] [address] Dr. Belkys Fajardo T18 Risk Not increased Normal [facility] Comment on above: Performed By: #### A FPTET #### [facility] [address] [address] [address] Belkys Fajardo Test Results: Negative Normal [facility] Comment on above: Performed By: #### A FPTET #### [facility] [address] [address] [address] Belkys Fajardo uE3 MoM 1.43 [facility] Comment on above: Performed By: #### A FPTET #### [facility] [address] [address] [address] Belkys Fajardo uE3 Value 2.26 ng/mL Normal [facility] Comment on above: Performed By: #### A FPTET #### [facility] [address] [place] [address] Dr. Belkys Fajardo PAP ACOG PANEL 2: 21 to 29on 08-24-2021 . . Normal [facility] Comment on above: Result Comment: Perf ormed at: BA Performed By: #### [id number] #### [facility] [address] [place] [address] Dr. Belkys Fajardo Age Gdln ACOG Testing [facility] Comment on above: Performed By: #### [id number] #### [facility] [address] [place] [address] Dr. Belkys Fajardo DIAGNOSIS: Comment Normal [facility] Comment on above: Result Comment: NEGA TIVE FOR INTRAEPITHELIAL LESION OR MALIGNANCY. Performed at: BA Performed By: #### [id number] #### [facility] [address] [place] [address] Dr. Belkys Fajardo Methodology: Comment [facility] Comment on above: Result Comment: This liquid based ThinPrep(R) pap test was screened with the use of an image guided system. Performed at: WB Performed By: #### [id number] #### [facility] [address] [place] [address] Dr. Belkys Fajardo Note: Comment Normal [facility] Comment on above: Result Comment: The Pap smear is a screening test designed to aid in the detection of premalignant and malignant conditions of the uterine cervix. It is not a diagnostic procedure and should not be used as the sole means of detecting cervical cancer. Both false-positive and false-negative reports do occur. . Performed at: WB Performed By: #### [id number] #### [facility] [address] [place] [address] Dr. Belkys Fajardo Performed by: Comment Normal [facility] Comment on above: Result Comment: Vicky Avila, Suede Brusher (ASCP) Performed at: BA Performed By: #### [id number] #### [facility] [address] [place] [address] Dr. Belkys Fajardo Reflex Criteria: Comment Normal [facility] Comment on above: Result Comment: The HPV DNA reflex criteria were not met with this specimen result therefore, no HPV testing was performed. . Performed at: BA Performed By: #### [id number] #### [facility] [address] [place] [address] Dr. Belkys Fajardo Specimen adequacy: Comment Normal [facility] Comment on above: Result Comment: Sati sfactory for evaluation. No endocervical component is identified. Performed at: BA Performed By: #### [id number] #### [facility] [address] [place] [address] Dr. Belkys Fajardo CBC AUTO DIFFon 08-22-2021 BASO # 0.0 103/ul Normal 0.0-0.1 [facility] Comment on above: Performed By: #### C BC #### [facility] [address] [place] [address] Dr. Belkys Fajardo Basophils/100 WBC (Bld) 0.2 % Normal 0.2-2.0 [facility] Comment on above: Performed By: #### C BC #### [facility] [address] [place] [address] Dr. Belkys Fajardo EO # 0.2 103/ul Normal 0.0-0.7 [facility] Comment on above: Performed By: #### C BC #### [facility] [address] [place] [address] Dr. Belkys Fajardo Eosinophils/100 WBC (Bld) 1.9 % Normal 0.9-7.0 [facility] Comment on above: Performed By: #### C BC #### [facility] [address] [place] [address] Dr. Belkys Fajardo Erythrocyte distribution width (RBC) [Ratio] 13.4 % Normal 11.0-15.0 [facility] Comment on above: Performed By: #### C BC #### [facility] [address] [place] [address] Dr. Belkys Fajardo Hematocrit (Bld) [Volume fraction] 32.7 % Critically low 36.0-48.0 [facility] Comment on above: Performed By: #### C BC #### [facility] [address] [place] [address] Dr. Belkys Fajardo Hemoglobin (Bld) [Mass/Vol] 11.0 g/dL Critically low 12.0-16.0 [facility] Comment on above: Performed By: #### C BC #### [facility] [address] [place] [address] Dr. Belkys Fajardo IG # 0.05 10e3/ul Critically high 0.00-0.03 [facility] Comment on above: Performed By: #### C BC #### [facility] [address] [place] [address] Dr. Belkys Fajardo IG % 0.5 % Normal 0.0-0.5 [facility] Comment on above: Performed By: #### C BC #### [facility] [address] [place] [address] Dr. Belkys Fajardo LYMPH # 2.3 103/ul Normal 1.2-3.[address] [facility] Comment on above: Performed By: #### C BC #### [facility] [address] [place] [address] Dr. Belkys Fajardo Lymphocytes/100 WBC (Bld) 22.4 % Normal 20.5-60.0 [facility] Comment on above: Performed By: #### C BC #### [facility] [address] [place] [address] Dr. Belkys Fajardo MANUAL DIFF REQ NO Normal [facility] Comment on above: Performed By: #### C BC #### [facility] [address] [place] [address] Dr. Belkys Fajardo MCH (RBC) [Entitic mass] 29.3 pg Normal 26.7-34.0 [facility] Comment on above: Performed By: #### C BC #### [facility] [address] [place] [address] Dr. Belkys Fajardo MCHC (RBC) [Mass/Vol] 33.6 g/dL Normal 29.9-35.2 [facility] Comment on above: Performed By: #### C BC #### [facility] [address] [place] [address] Dr. Belkys Fajardo MCV (RBC) [Entitic vol] 87.2 fL Normal 81.0-99.0 [facility] Comment on above: Performed By: #### C BC #### [facility] [address] [place] [address] Dr. Belkys Fajardo MONO # 0.6 103/ul Normal 0.3-0.8 [facility] Comment on above: Performed By: #### C BC #### [facility] [address] [place] [address] Dr. Belkys Fajardo Monocytes/100 WBC (Bld) 5.5 % Normal 1.7-12.0 [facility] Comment on above: Performed By: #### C BC #### [facility] [address] [place] [address] Dr. Belkys Fajardo NEUT # 7.1 103/ul Critically high 1.4-6.5 [facility] [place] [facility] Comment on above: Performed By: #### C BC #### [facility] [address] [place] [address] Dr. Belkys Fajardo Neutrophils/100 WBC (Bld) 69.5 % Normal 43.0-75.0 [facility] Comment on above: Performed By: #### C BC #### [facility] [address] [place] [address] Dr. Belkys Fajardo Platelet mean volume (Bld) [Entitic vol] 10.3 fL Normal 9.5-13.5 [facility] Comment on above: Performed By: #### C BC #### [facility] [address] [place], [place] [address] Dr. Belkys Fajardo PLT 258 103/ul Normal 150-[address] [facility] Comment on above: Performed By: #### C BC #### [facility] [address] [place], [place] [address] Dr. Belkys Fajardo RBC 3.75 106/ul Critically low 4.20-5.40 [facility] [place] [facility] Comment on above: Performed By: #### C BC #### [facility] [address] [place], [place] [address] Dr. Belkys Fajardo WBC 10.2 103/ul Normal 4.0-11.0 [facility] Comment on above: Performed By: #### C BC #### [facility] [address] [place], [place] [address] Dr. Belkys Fajardo CTA CHEST WO W CONon 022 CTA CHEST WO W CON CTA CHEST WO W CON CLINICAL: CHEST PAIN, UNSPECIFIED . Shortness of breath and chest heaviness for one day. COMPARISON: Earlier same day chest radiograph, and CT 12/31/2020. TECHNIQUE: Thin section axial images were obtained from thoracic inlet to the diaphragms following the administration of intravenous contrast. CT angiographic reconstructions of the pulmonary arteries including multiple intensity projections in coronal and sagittal planes were performed. Dose reduction: mA and/or kV are were adjusted by automated exposure control software based upon patients height and weight. FINDINGS: Thoracic inlet and axillary structures are intact. Bilateral breast implants are in place. Heart size is within normal limits. No pericardial effusion or mediastinal fluid collection. Soft tissue density anterior mediastinum is consistent with thymic remnant in light of Pulmonary arterial tree is opacified and does not show filling defect to indicate pulmonary embolism. Limited upper abdominal images show no acute findings. Lung windows show no regional consolidation, pneumothorax or localizing infiltrate. Central airways are patent. Osseous structures show no acute traumatic or destructive lesion. IMPRESSION: 1. No evidence of pulmonary embolism. 2. No acute intrathoracic findings. Electronically authenticated by: ROSARIO HERNANDEZ Date: 2021-08-22 08:31 Normal [facility] Covid-19 PCR (CVDTBH)on 07-27 SARS-CoV-2 (COVID-19) RNA DEVIN+probe Ql (Unsp spec) Not detected Normal NOT DETECTED [facility] Comment on above: Result Comment: When diagnostic testing is negative, the possibility of a false negative should be considered in the context of a patient's recent exposures and the presence of clinical signs and symptoms consistent with SARS-CoV-2. This test is not yet approved or cleared by the [place] FDA. When there are no FDA-approved or cleared tests available, and other criteria are met, FDA can make tests available under an emergency access mechanism called an Emergency Use Authorization (EUA). The EUA for this test is supported by the [employer] of Health and Human Service's declaration that circumstances exist to justify the emergency use of in vitro diagnostics for the detection and/or diagnosis of the virus that causes COVID-19. This EUA will remain in effect for the duration of the COVID-19 declaration justifying emergency of IVDs, unless it is terminated or revoked by the FDA (after which the test may no longer be used). Performed By: #### C VDTB #### [facility] [address] [place] [address] Dr. Belkys Fajardo PROF 14(COMP METB)on 022 Albumin [Mass/Vol] 3.0 g/dL Critically low 3.4-5.0 [facility] Comment on above: Performed By: #### A FPTET #### [facility] [address] [place] [address] Dr. Belkys Fajardo Albumin/Globulin [Mass ratio] 0.8 {ratio} Normal [facility] Comment on above: Performed By: #### A FPTET #### [facility] [address] [place] [address] Dr. Belkys Fajardo ALP [Catalytic activity/Vol] 52 U/L Normal 46-116 [facility] Comment on above: Performed By: #### A FPTET #### [facility] [address] [place] [address] Dr. Belkys Fajardo ALT [Catalytic activity/Vol] 32 U/L Normal 14-59 [facility] Comment on above: Performed By: #### A FPTET #### [facility] [address] [address] [address] Belkys Fajardo Anion gap [Moles/Vol] 12.8 mmol/L Normal [facility] Comment on above: Performed By: #### A FPTET #### [facility] [address] [address] [address] Belkys Fajardo AST [Catalytic activity/Vol] 17 U/L Normal 15-37 [facility] Comment on above: Performed By: #### A FPTET #### [facility] [address] [address] [address] Belkys Fajardo Bilirubin [Mass/Vol] 0.3 mg/dL Normal 0.2-1.0 [facility] Comment on above: Performed By: #### A FPTET #### [facility] [address] [place] [address] Dr. Belkys Fajardo Calcium [Mass/Vol] 8.5 mg/dL Normal 8.5-10.1 [facility] Comment on above: Performed By: #### A FPTET #### [facility] [address] [place] [address] Dr. Belkys Fajardo Chloride [Moles/Vol] 103 mmol/L Normal 98-107 [facility] Comment on above: Performed By: #### A FPTET #### [facility] [address] [place] [address] Dr. Belkys Fajardo CO2 [Moles/Vol] 24.7 mmol/L Normal 21.0-32.0 [facility] Comment on above: Performed By: #### A FPTET #### [facility] [address] [place] [address] Dr. Belkys Fajardo Creatinine [Mass/Vol] 0.46 mg/dL Critically low 0.55-1.02 [facility] Comment on above: Performed By: #### A FPTET #### [facility] [address] [address] [address] Belkys Fajardo EGFR-AF SPANISH >60 Normal >=[address] [facility] Comment on above: Performed By: #### A FPTET #### [facility] [address] [address] [address] Belkys Fajardo EGFR-NON AF SPANISH >60 Normal >=60 [facility] Comment on above: Performed By: #### A FPTET #### [facility] [address] [address] [address] Belkys Fajardo Globulin (S) [Mass/Vol] 3.7 g/dL Normal [facility] Comment on above: Performed By: #### A FPTET #### [facility] [address] [address] [address] Belkys Fajardo Glucose [Mass/Vol] 84 mg/dL Normal 74-106 [facility] Comment on above: Performed By: #### A FPTET #### [facility] [address] [place] [address] Dr. Belkys Fajardo Potassium [Moles/Vol] 3.5 mmol/L Normal 3.5-5.1 [facility] Comment on above: Performed By: #### A FPTET #### [facility] [address] [place] [address] Dr. Belkys Fajardo Protein [Mass/Vol] 6.7 g/dL Normal 6.4-8.2 [facility] Comment on above: Performed By: #### A FPTET #### [facility] [address] [place] [address] Dr. Belkys Fajardo Sodium [Moles/Vol] 137 mmol/L Normal 136-145 [facility] Comment on above: Performed By: #### A FPTET #### [facility] [address] [address] [address] Belkys Fajardo Urea nitrogen [Mass/Vol] 7.0 mg/dL Normal 7.0-18.0 [facility] Comment on above: Performed By: #### A FPTET #### [facility] [address] [place] [address] Dr. Belkys Fajardo Urea nitrogen/Creatinine [Mass ratio] 15.2 mg/mg Normal [facility] Comment on above: Performed By: #### A FPTET #### [facility] [address] [place] [address] Dr. Belkys Fajardo TROPONIN, HIGH SENSITIVITYon 08-22-2021 HSTROP <4.0 Normal 4.0-51.[address] [facility] Comment on above: Result Comment: CUT- OFF POINTS HAVE BEEN ESTABLISHED BASED ON THE FOURTH UNIVERSAL DEFINITIONS OF MYOCARDIAL INFARCTION. THE UPPER REFERENCE LIMIT (URL) OF TROPONIN, DEFINED THE 99TH PERCENTILE OF cTnI DISTRIBUTION IN A REFERENCE POPULATION, HAS BEEN CONFIRMED THE DECISION THRESHOLD FOR MA DIAGNOSIS. Performed By: #### A FPTET #### [facility] [address] [place] [address] Dr. Belkys Fajardo CHLAMYDIA/GONOCOCCUS DEVIN (SW AB/URINE/PAPon 08-21-2021 Chlamydia trachomatis, DEVIN Negative Normal Negative [facility] Comment on above: Performed By: #### C T/NGNA #### [facility] [address] [place] [address] Dr. Belkys Fajardo Neisseria gonorrhoeae, DEVIN Negative Normal Negative [facility] Comment on above: Performed By: #### C T/NGNA #### [facility] [address] [place] [address] Dr. Belkys Fajardo VAGINITIS/VAGINOSIS DNA PROB Gab 08-20-2021 Lani species Negative Normal Negative [facility] Comment on above: Performed By: #### A FPTET #### [facility] [address] [place] [address] Dr. Belkys Fajardo Gardnerella vaginalis Negative Normal Negative [facility] Comment on above: Performed By: #### A FPTET #### [facility] [address] [place] [address] Dr. Belkys Fajardo Trichomonas vaginalis Negative Normal Negative [facility] Comment on above: Performed By: #### A FPTET #### [facility] [address] [place] [address] Dr. Belkys Fajardo TSH w/reflex to FT4on 2021 TSH Qn 1.58 m[IU]/L Normal 0.30-5.00 [facility] Comment on above: Performed By: #### T SHX #### [facility] [address] [place] [address] [place] [address] Housing Inspector: Rosario Linares MD TILT TABLE TESTon 04-13-2021 TILT TABLE TEST [address] [id number] TILT TABLE TEST PATIENT NAME: AUDREY DOZIER : 1990 MED REC NO: [id number] ROOM: ACCOUNT NO: [id number] ADMIT DATE: 04/10/2021 PROVIDER: Neelam Owen [facility] DATE OF PROCEDURE: 04/10/2021 ORDERING PROVIDER: Yogi Marquez MD PRIMARY CARE PROVIDER: Nick Leonardo DO INTERPRETING PHYSICIAN: Neelam Owen MD Diagnosis: Dizziness. Palpitations. PROCEDURE SUMMARY: After explaining the risk, benefits and alternatives to the procedure, informed written consent was obtained. The patient was brought to the tilt table laboratory in a fasting and resting state. The patient was placed on the tilt table in the supine position, ECG patches were applied and an IV was placed. The patient's baseline blood pressure was 110/68 mmHg with a heart rate of 89/minute. The patient was then raised to the 70 degree head upright tilt position with and pulse rate, blood pressure and cardiac rhythm were monitored and recorded each minute of the study for a maximum of 30 minutes. During the initial 20 minutes of the study, the patient's blood pressure ranged from a high of 131/72 mmHg to a low of 98/70 mmHg, while their heart rate ranged from a low of 90/minute to a high of 130/minute. During this period, the patient reported no symptoms. During the last 4 minutes of the study, nitroglycerin 0.3 mg was give sublingually. During this time, the patient's blood pressure ranged from a high of 117/88 mmHg to a low of 61/48 mmHg, while their heart rate ranged from a low of 109/minute to a high of 145/minute. During this period, the patient reported severe lightheadedness and feeling as if they were going to pass out. At this point, the patient was returned to the supine position and monitored for an additional ten minutes. Once the patient felt well enough to be discharged home, they were discharged home with instructions to follow up with their primary care physician and/or clinical research scientist as previously scheduled. STUDY CONCLUSIONS: Abnormal head upright tilt table study. The patient's heart rate, blood pressure response and symptoms were most consistent with orthostatic intolerance/postural orthostatic tachycardia syndrome. Combined with vigilant maintenance of euvolemia and maintaining a moderate salt intake, pharmacologic treatment with Florinef, and/or a Serotonin Selective Reuptake Inhibitor (SSRI) such as Lexapro, among other treatments have shown some effectiveness in the treatment of this condition. NEELAM OWEN JESSICA/DIOGENES_RICO Doc#: Unknown CC: Nick Marquez MD [facility] Vital Signs Date Time Vital Sign Value Performing Clinician Facility 07-28-2022 10:15-0400 Body height 170.18 cm Nick Jorden Other [facility] Other 07-28-2022 10:15-0400 Body mass index (BMI) [Ratio] 27.81 kg/m2 Nick Jorden Other [facility] Other 07-28-2022 10:15-0400 Body weight 80.56 kg Nick Jorden Other [facility] Other 07-28-2022 10:15-0400 Diastolic blood pressure 75 mm[Hg] Nick Jorden Other [facility] Other 07-28-2022 10:15-0400 Systolic blood pressure 112 mm[Hg] Nick Leonardo Other [facility] Other 06-04-2022 17:00-0500 Body height 170.18 cm Cristal Guidry Other [facility] Other 06-04-2022 17:00-0500 Body mass index (BMI) [Ratio] 28.19 kg/m2 Cristal Guidry Other [facility] Other 06-04-2022 17:00-0500 Body temperature 97.4 [degF] Cristal Guidry Other [facility] Other 06-04-2022 17:00-0500 Body weight 81.65 kg Cristal Guidry Other [facility] Other 06-04-2022 17:00-0500 Respiratory rate 18 /min Cristal Guidry Other [facility] Other 06-04-2022 17:00-0500 SaO2% (BldA) [Mass fraction] 98 % Cristal Guidry Other [facility] Other 09-06-2021 02:05-0400 Body weight 77.[address] CHEYENNE MEADE . [facility] Comment on above: Performed By: #### AFPTET #### [facility] [address] [place] [address] Dr. Belkys Fajardo Encounters Encounter Date Encounter Type Care Provider Facility Start: 05-16-2023 End: 05-16-2023 ambulatory CHEYENNE WOLF Not Available Start: 04-08-2023 End: 04-08-2023 ambulatory CHEYENNE WOLF Not Available Start: 07-28-2022 End: 07-28-2022 ambulatory Nick Leonardo Other [facility] Other Start: 07-28-2022 Office outpatient vi sit 15 minutes Nick Leonardo [facility] Start: 07-28-2022 Telephone encounter Nick Leonardo [facility] Start: 06-04-2022 End: 06-04-2022 ambulatory Cristal Guidry Other [facility] Other Start: 06-04-2022 Office outpatient ne w 20 minutes Cristal Guidry [facility] Start: 02-01-2022 End: 02-01-[address] CHEYENNE MEADE . Facility:[facility] Start: 01-23-2022 End: 01-27-2022 Evaluation and management of inpatient DR NICK LEONARDO Facility:[facility] Start: 01-12-2022 End: 01-13-[address] CHEYENNE MEADE . Facility:[facility] Start: 01-06-2022 End: 01-06-[address] CHEYENNE MEADE . Facility:[facility] Start: 12-11-2021 End: 12-12-[address] CHEYENNE MEADE . Facility:[facility] Start: 12-08-2021 End: 12-09-[address] CHEYENNE MEADE . Facility:[facility] Start: 11-12-2021 End: 11-13-[address] CHEYENNE MEADE . Facility:[facility] Start: 11-10-2021 End: 11-11-[address] CHEYENNE MEADE . Facility:[facility] Start: 10-14-2021 End: 10-15-[address] CHEYENNE MEADE . Facility:[facility] Start: 09-16-2021 End: 09-17-[address] CHEYENNE MEADE . Facility:[facility] Start: 09-04-2021 End: 09-05-[address] CHEYENNE MEADE . Facility:[facility] Start: 08-22-2021 End: 08-22-[address] CAMILO GREENE Facility:[facility] Start: 08-18-2021 End: 08-18-[address] CHEYENNE MEADE . Facility:[facility] Start: 04-15-2021 End: 04-16-2021 [facility] Start: 04-10-2021 End: 04-11-2021 ambulatory [facility] Start: 04-10-2021 End: 04-10-2021 Subsequent hospital visit by physician [facility] [employer] [facility] EKG Comment on above: Palpitations; Post-COVID chronic palpitations; Shortness of breath; Lightheaded; Dizziness Procedures Date Procedure Procedure Detail Performing Clinician Start: 01-23-2022 Repair Rectum, Open Approach DR CHEYENNE MEADE . Start: 01-23-2022 Delivery of Products of Conception, External Approach DR CHEYENNE MEADE . Start: 01-23-2022 Division of Female P erineum, External Approach DR CHEYENNE MEADE . Start: 01-23-2022 Drainage of Amniotic Fluid, Therapeutic from Products of Conception, Via Natural or Artificial Opening DR CHEYENNE MEADE . Plan of Treatment Date Care Activity Detail Author Start: 04-15-2021 End: 04-15-2021 Patient encounter procedure 04/15/2021 Office Visit Cardiology Yogi Marquez MD [address] [place] [address] [facility] Start: 11-26-2020 Influenza vaccination Flu vaccine (# 1) [facility] Start: 10-08-2020 DTaP/Tdap/Td vaccine (7 - Td or Tdap) DTaP/Tdap/Td vaccine (7 - Td or Tdap) [facility] Start: 2013 Screening for malign ant neoplasm of cervix Pap smear [facility] Start: 10-30-2007 HIV screening HIV screen [facility] Start: 2004 Depression Screen Depression Screen [facility] Start: 1997 COVID-19 Vaccine (1) COVID-19 Vaccin e (1) [facility] Start: 1993 Varicella vaccine (1 of 2 - 2-dose childhood series) Varicella vaccine (1 of 2 - 2-dose childhood series) [facility] Start: 1992 Hepatitis C screening Hepatitis C sc reen [facility] Payers Date Payer Category Payer Unknown [id number] 1990 Unknown [id number] 2.16.8 [id number] 1990 Unknown [id number] 2.16.8 40.1.805264.3.579.2.173 1990 Unknown [id number] 2.16.8 40.1.557221.3.579.2.173 1990 Unknown [id number] 2.16.8 40.1.614678.3.579.2.173 1990 Unknown [id number] 2.16.84 0.1.908379.3.579.2.593 1992 Unknown [id number] 2.16.84 0.1.039416.3.579.2.593 1992 Unknown [id number] 2.16.84 0.1.409855.3.579.2.593 1992 Unknown [id number] .16.84 0.1.308798.3.579.2.593 1992 Unknown [id number] 2.16.84 0.1.958791.3.579.2.593 1992 Unknown [id number] 2.16.84 0.1.492362.3.579.2.593 1992 Unknown [id number] 2.16.84 0.1.092078.3.579.2.593 1992 Unknown [id number] .16.84 0.1.141400.3.579.2.593 1992 Unknown [id number] 2.16.84 0.1.003423.3.579.2.593 1992 Unknown [id number] 2.16.84 0.1.833219.3.579.2.593 1992 Unknown [id number] .16.84 0.1.791121.3.579.2.593 1992 Unknown [id number] .16.84 0.1.670180.3.579.2.593 1992 Unknown [id number] .16.84 0.1.506677.3.579.2.593 1992 Unknown [id number] .16.84 0.1.702052.3.579.2.1259 1992 Unknown [id number] 2.16.84 0.1.263290.3.579.2.1259 1959 Unknown [id number] Social History Date Type Detail Facility Start: 08-29-2014 Tobacco smoking status NHIS Never smoked tobacco [employer] Phone: Start: 08-29-2014 Tobacco use and exposure Smokeless tobacco non-user [employer] Phone: Start: 03-09-2021 Alcohol intake Current drinke r of alcohol (finding) [employer] Phone: Start: 03-09-2021 Alcohol intake [employer] Phone: Start: 08-29-2014 History SDOH Alcohol Comment occ. [employer] Phone: Start: 1990 [facility]: Sex Assigned At Sex Assigned At Bir th [facility] Other Evaluation note 07-28-2022 Note Date & Type Note Facility 07-28-2022 Evaluation note Encounter Date Diagnosis Assessment Notes July, Strain of neck muscle, initial encounter (ICD-10 - S16.1XXA) ROM exercises, heat/ice and Tylenol Hold Motrin and trial Prednisone July, Occipital lymphadenopathy (ICD-10 - R59.0) Monitor for now. Soft and tender indicate inflammatory in character, should resolve July, Sebaceous cyst (ICD-10 - L72.3) Monitor for now may not need treatment [facility] Other Evaluation note 06-04-2022 Note Date & Type Note Facility 06-04-2022 Evaluation note Encounter Date Diagnosis Assessment Notes May, Sore throat (ICD-10 - J02.9) May, Viral URI (ICD-10 - J06.9) Advised patient that COVID/Influenza A/B test and rapid Strep test was negative today. Advised patient that will treat as viral URI. Supportive care as directed, increase fluids and rest, Tylenol/Motrin as directed, OTC cough/cold remedies as directed on packaging, cool mist humidifier, throat lozenges. Discussed infection control practices such as good hand washing and mask wearing. Patient to follow up with PCP if symptoms persist or worsen despite treatment. Immediate eval for SOB, difficulty breathing, chest pain, fevers that do not break with antipyretic or any other concerning symptoms as reviewed on patient education handout. Patient verbalizes understanding and is agreeable to treatment plan. Patient left in stable condition May, Contact with and (suspected) exposure to other viral communicable diseases (ICD-10 - Z20.828) [facility] Other Clinical Note 01-23-2022 Note Date & Type Note Facility 01-23-2022 Note OPERATIVE NOTE OPERATION DATE: 02/18/2022 PROCEDURE: Repair of fourth degree perineal laceration. PREOPERATIVE DIAGNOSIS: Fourth degree perineal laceration. POSTOPERATIVE DIAGNOSIS: Fourth degree perineal laceration. ANESTHESIA: Epidural SURGEON: Cheyenne Meade D.O. CREDIT ASSISTANT: BOBO Cole URINE OUTPUT: Yellow and clear. SPECIMEN: None. BLOOD LOSS: 400 mL. PROCEDURE: The patient was taken back to the operating room where epidural anesthesia was found to be adequate. Patient was positioned in the dorsal lithotomy position. The perineum and vagina were then prepped using Chlorhexidine. A sterile surgical drape was applied. Jacome catheter was in place. Please note that identification of the anal mucosa was identified and a running stitch with 4-0 Monocryl was then used. After the anal mucosa was re-approximated, the anal sphincter complex was identified and repaired with a simple running stitch using 3-0 Monocryl. The external anal sphincter was then identified and grasped with Allis clamps, as they has laterally retracted, and pulled toward the midline. With retraction, the external anal sphincter in an overlapping and end-to-end re-approximation using 3-0 Vicryl was then performed. The end-to-end anastomosis was then completed using a horizontal mattress stitch. Once the anal sphincter complex was then repaired, the remainder of the laceration was repaired like a typical second degree laceration. The deep layers of the vagina and perineal body were re-approximated with figure of eight sutures of 3-0 Monocryl in a running fashion. Once re-approximated, the supravaginal epithelium, perineal epithelium were repaired with single interrupted suture using 3-0 Vicryl. Hemostasis was excellent. Sponge, lap and needle counts were correct x2. Excellent repair of fourth degree laceration was performed. The patient was taken to recovery in stable condition. [facility] Clinical Note 01-23-2022 Note Date & Type Note Facility 01-23-2022 Note OP Note OPERATION DATE: 01/23/2022 PROCEDURE: Repair of fourth degree perineal laceration. PREOPERATIVE DIAGNOSIS: Fourth degree perineal laceration. POSTOPERATIVE DIAGNOSIS: Fourth degree perineal laceration. ANESTHESIA: Epidural SURGEON: Cheyenne Meade D.O. CREDIT ASSISTANT: BOBO Cole URINE OUTPUT: Yellow and clear. SPECIMEN: None. BLOOD LOSS: 400 mL. PROCEDURE: The patient was taken back to the operating room where epidural anesthesia was found to be adequate. Patient was positioned in the dorsal lithotomy position. The perineum and vagina were then prepped using Chlorhexidine. A sterile surgical drape was applied. Jacome catheter was in place. Please note that identification of the anal mucosa was identified and a running stitch with 4-0 Monocryl was then used. After the anal mucosa was re-approximated, the anal sphincter complex was identified and repaired with a simple running stitch using 3-0 Monocryl. The external anal sphincter was then identified and grasped with Allis clamps, as they has laterally retracted, and pulled toward the midline. With retraction, the external anal sphincter in an overlapping and end-to-end re-approximation using 3-0 Vicryl was then performed. The end-to-end anastomosis was then completed using a horizontal mattress stitch. Once the anal sphincter complex was then repaired, the remainder of the laceration was repaired like a typical second degree laceration. The deep layers of the vagina and perineal body were re-approximated with figure of eight sutures of 3-0 Monocryl in a running fashion. Once re-approximated, the supravaginal epithelium, perineal epithelium were repaired with single interrupted suture using 3-0 Vicryl. Hemostasis was excellent. Sponge, lap and needle counts were correct x2. Excellent repair of fourth degree laceration was performed. The patient was taken to recovery in stable condition. [facility] Clinical Note 01-23-2022 Note Date & Type Note Facility 01-23-2022 Note OPERATIVE NOTE OPERATION DATE: 02/10/2022 PROCEDURE: Repair of fourth degree laceration. PREOPERATIVE DIAGNOSIS: Fourth degree laceration. POSTOPERATIVE DIAGNOSIS: Fourth degree laceration. ANESTHESIA: General. SURGEON: Cheyenne Meade D.O. CREDIT ASSISTANT: BOBO URINE OUTPUT: Yellow and clear. BLOOD LOSS: 150 mL. SPECIMEN: None. PROCEDURE: The patient was taken back to the OR where she was given spinal anesthesia without difficulty. She was then placed in the dorsal lithotomy position. Identification of a fourth degree perineal laceration was then noted. The rectal mucosa was involved, a suture was placed 1 cm above the apex of the laceration and extended through the submucosa. The mucosa was closed in a running fashion. Next the anal sphincter was identified, the two edges were grasped with Allis clamps, these were then brought back together in the midline. When repairing the sphincter, the suture was placed through the fascial sheath and this was done in a eujzts-sp-tbtam fashion. This was performed using 3-0 Vicryl. Next the underlying rectal fascia layer was closed. This was done with 3-0 Vicryl. This was done to close space between the vaginal mucosa and rectum. At this point the procedure reached the level of repair and the need for a midline episiotomy with extension and a secondary laceration repair. A suture was placed approximately 1 cm above the apex of the vagina. The repair was made in a running locking fashion to the hymenal ring. . This was done with 3-0 Vicryl. At the hymen, careful approximation of the two edges was performed. At this point, the suture was then carried down to the perineal body in order to close any deep defect and space. At this point suture was then tied. Two sutures in an interrupted fashion were placed on both sites to repair any further defects. After this was approximated, the skin was then closed using 3-0 Vicryl in an interrupted fashion. The patient had excellent hemostasis. This repair was performed without difficulty. The patient was then taken out of the dorsal lithotomy position and placed in the supine position and taken to recovery. Sponge, lap and needle counts were correct x2. The patient tolerated this procedure well. [facility] Clinical Note 08-22-2021 Note Date & Type Note Facility 08-22-2021 Note PROCEDURE: XR CHEST 1 V, 08/22/2021 6:50 AM EDT CLINICAL INDICATIONS: Chest pain, COMPARISON: 12/31/2020 TECHNIQUE: Upright portable chest 0658 hours. Study is deemed medically necessary by the primary service. Informed consent obtained. FINDINGS: Heart and mediastinum are normal. Acute consolidation, pleural effusion, or pneumothorax is not demonstrated. No acute osseous abnormality is seen. Regional soft tissues are unremarkable. Opacity at the lung base regions considered related to breast attenuation. IMPRESSION: 1. No acute cardiopulmonary pathology Electronically authenticated by: DERIC VO Date: 2021-08-22 07:[address] [facility] Evaluation note Note Date & Type Note Facility Evaluation note Diagnosis Palpitations Post-COVID chronic palpitations Shortness of breath Lightheaded Dizziness and giddiness Dizziness Dizziness and giddiness documented in this encounter [email or web address] Phone: Evaluation note Note Date & Type Note Facility Evaluation note No Information REach Other History general Narrative - Reported Note Date & Type Note Facility History general Narrative - Reported Type Medical History POTS Medical History sinus tachycardia Surgical History 4th degree vaginal tear after g iving 2021 [employer] Other History general Narrative - Reported Note Date & Type Note Facility History general Narrative - Reported Type Medical History POTS Medical History sinus tachycardia Medical History Anxiety, generalized Surgical History 4th degree vaginal t ear after giving 2021 Surgical History MASTOPEXY OF BOTH BR EASTS WITH INSERTION OF SALINE IMPLANTS Hospitalization History SEE SURGICAL HX [employer] Other Reason for Referral Specialty Diagnoses / Procedures Referred By Willy smith Referred To Contact Cardiology Diagnoses Palpitations Post-COVID chronic palpitations Shortness of breath Lightheaded Dizziness Procedures Holter Monitor 24 Hour Yogi Marquez MD [address] [place] [id number] Referral ID Status Reason Start Date Expiration Date Visits Re quested Visits Authorized [id number] Open 03/09/2021 03/09/2022 1 1 Advance Directives No Advanced Directives Records FoundDocuments on File Type Date Recorded Patient Pastor Expl anation ACP-Advance Directive ACP-Power of Child Center Assistant Summary Purpose Family History No Family History Records FoundNo Family History Records FoundNo Family History Records Found Additional Source Comments Reason for Visit (unrecogniz ed section and content) Specialty Diagnoses / Procedures Referred By Willy smith Referred To Contact Cardiology Diagnoses Palpitations Post-COVID chronic palpitations Shortness of breath Lightheaded Dizziness Procedures Holter Monitor 24 Hour Yogi Marquez MD [address] [place] [address] Referral ID Status Reason Start Date Expiration Date Visits Re quested Visits Authorized [id number] Open 03/09/2021 03/09/2022 1 1 Care Teams (unrecognized sec tion and content) Customer Operations Manager Relationship Specialty Start Date End Date Nick Leonardo, [address] [place] [address] PCP - General Internal Medicine 03/09/21 INFORMATION SOURCE (unrecogn ized section and content) DATE CREATED AUTHOR 04/16/2021 [facility] DATE CREATED AUTHOR AUTHOR'S ORGANIZ ATION 07/01/2022 [facility] DATE CREATED AUTHOR AUTHOR'S ORGANIZ ATION 05/17/2023 [facility] Special[facility] FOR RECORDS PERTAINING TO PATIENTS WHO ARE OR HAVE BEEN ENROLLED IN A CHEMICAL DEPENDENCY/SUBSTANCEABUSE PROGRAM, SOME INFORMATION MAY BE OMITTED. This clinical summary was aggregated from multiple sources. Caution should be exercised in using it in the provision of clinical care. This summary normalizes information from multiple sources, and as a consequence, information in this document may materially change the coding, format and clinical context of patient data. In addition, data may be omitted in some cases. CLINICAL DECISIONS SHOULD BE BASED ON THE PRIMARY CLINICAL RECORDS. [facility] [employer] [facility]. provides no warranty or guarantee of the accuracy or completeness of information in this document.
--- NOTE | 2023-05-17 20:45 | ECG_ITS ---
[facility] Test Date: 2023-05-17 Pat Name: AUDREY DOZIER Department: Room: - Gender: Female Hand Laster: : 1990 Requested By: Joaquim Cespedes Order Number: [id number] Reading MD: GARRETT MCBRIDE Measurements Intervals [place] Rate: 72 P: 38 AL: 132 QRS: 91 QRSD: 74 T: 67 QT: 386 QTc: 410 Interpretive Statements 1100 Sinus rhythm 7102 Moderate right axis deviation 9110 normal ECG Compared to ECG 08/22/2021 05:37:09 Right-axis deviation now present Electronically Signed On 05-17-2023 23:16:35 EST by GARRETT MCBRIDE
--- NOTE | 2023-05-17 20:46 | ED_ITS ---
HPI - General Adult General Chief complaint: OB/Uterine Contractions Stated complaint: Hypotension and 12 weeks Time Seen by Provider: 05/17/23 20:19 Source: patient Mode of arrival: walk-in Limitations: no limitations History of Present Illness HPI narrative: Patient presents with dizziness and low BPs at home that started this morning. She has POTS and is about 12 weeks . She just saw her JEWELRY APPRAISER yesterday and had unremarkable US with normal HR. She admits to some URI symptoms - mild nasal congestion/runny nose. No ear pain or sore throat. No GI or symptoms. She has been eating normally and taking in plenty of fluids. She told me that this morning, when she stood to get ready to go to work, she felt dizzy. This continued to occur throughout the day - precipitated by turning her head and change in position. No prior history of vertigo. No current headache or blurred vision. Related Data Home Medications Medication Instructions Recorded Confirmed metoprolol succinate 25 mg 25 mg PO DAILY 05/17/23 05/17/23 tablet,extended release 24 hr ondansetron HCl 4 mg tablet 4 mg PO Q6H PRN nausea and vomiting 05/17/23 05/17/23 Allergies Allergy/AdvReac Type Severity Reaction Status Date / Time No Known Drug Allergies Allergy Verified 05/17/23 20:31 PFSH PFS Social History Smoking status: Never smoker Exam Narrative Exam Narrative: Nurses notes and vital signs reviewed and patient is not hypoxic. Afebrile General: Well-appearing and in no apparent distress. Skin: Warm, dry, no pallor noted. No rash. Head: Normocephalic, atraumatic. Neck: Supple, non-tender. No meningismus Eye: Pupils are equal, round and EOMI. No scleral icterus. No nystagmus Ears, Nose, Mouth, and Throat: Oral mucosa is moist Cardiovascular: Regular Rate and Rhythm without murmur, gallop or rub. Respiratory: No accessory muscle use or respiratory distress. Lungs are clear to auscultation, no wheezing, rales or rhonchi Musculoskeletal: normal ROM GI: Abdomen is soft, non-distended. Normal bowel sounds. No tenderness to palpation. No rebound, guarding, or rigidity noted. Neurological: A&O x4. No cranial nerve dysfunction observed. No truncal ataxia. Moves all extremities. Sensation intact. Psychiatric: Cooperative and interactive. Normal mood and affect. Constitutional Vital Signs, click to edit/add: Last Vital Signs Pulse 82 05/17/23 21:30 Resp 17 05/17/23 21:30 BP 99/64 05/17/23 21:30 Pulse Ox 97 05/17/23 21:30 O2 Del Method Room Air 05/17/23 20:32 Course Vital Signs Vital signs: Vital Signs Pulse Rate 79 05/17/23 20:32 Respiratory Rate 14 05/17/23 20:32 Blood Pressure 110/67 05/17/23 20:32 Pulse Oximetry 100 05/17/23 20:32 Oxygen Delivery Method Room Air 05/17/23 20:32 Pulse Rate 82 05/17/23 21:30 Respiratory Rate 17 05/17/23 21:30 Blood Pressure 99/64 05/17/23 21:30 Pulse Oximetry 97 05/17/23 21:30 Oxygen Delivery Method Room Air 05/17/23 20:32 Medical Decision Making MDM Narrative Medical decision making narrative: 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 Blood drawn and sent for evaluation. Urine was also ordered to be obtained and sent for testing. She was ordered to receive a liter of normal saline IV fluid while we awaited her test results. hearts tones 150s Long delay getting lab results. CBC unremarkable. CMP unremarkable. Patient's initial IV was positional - new one obtained and the patient had pressure bag for IV. She felt better after ED treatment. 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 Lab Data Lab results reviewed: Yes I reviewed the patient's lab results Labs: Lab Results 05/17/23 Range/Units 21:02 WBC 10.5 (4.0-11.0) 10^3/uL RBC 4.09 L (4.20-5.40) 10^6/uL Hgb 11.8 L (12.0-16.0) g/dL Hct 35.8 L (36.0-48.0) % MCV 87.5 (81.0-99.0) fL MCH 28.9 (26.7-34.0) pg MCHC 33.0 (29.9-35.2) g/dL RDW 13.4 (11.0-15.0) % Plt Count 285 (150-450) 10^3/uL MPV 10.9 (9.5-13.5) fL Neut % (Auto) 63.6 (43.0-75.0) % Lymph % (Auto) 28.4 (20.5-60.0) % [place] % (Auto) 5.7 (1.7-12.0) % Eos % (Auto) 1.7 (0.9-7.0) % Baso % (Auto) 0.2 (0.2-2.0) % Neut # (Auto) 6.7 H (1.4-6.5) 10^3/uL Lymph # (Auto) 3.0 (1.2-3.8) 10^3/uL [place] # (Auto) 0.6 (0.3-0.8) 10^3/uL Eos # (Auto) 0.2 (0.0-0.7) 10^3/uL Baso # (Auto) 0.0 (0.0-0.1) 10^3/uL Abs Immat Gran (auto) 0.04 H (0.00-0.03) 10^3/uL Imm/Tot Granulo (auto) 0.4 (0.0-0.5) % Sodium 141 (136-145) mmol/L Potassium 3.5 (3.5-5.1) mmol/L Chloride 105 (98-107) mmol/L Carbon Dioxide 24.3 (21.0-32.0) mmol/L Anion Gap 15.2 BUN 12.0 (7.0-18.0) mg/dL Creatinine 0.48 L (0.55-1.02) mg/dL Est GFR ( Amer) >60 (>=60) Est GFR (Non-Af Amer) >60 (>=60) BUN/Creatinine Ratio 25.0 Glucose 91 (74-106) mg/dL Calcium 9.0 (8.5-10.1) mg/dL Total Bilirubin 0.2 (0.2-1.0) mg/dL AST 14 L (15-37) U/L ALT 26 (14-59) U/L Alkaline Phosphatase 62 (46-116) U/L Total Protein 7.6 (6.4-8.2) g/dL Albumin 3.3 L (3.4-5.0) g/dL Globulin 4.3 g/dL Albumin/Globulin Ratio 0.8 ECG Data Attestation: I personally reviewed and interpreted this ECG as follows: Interpretation: EKG interpretation: Emergency Department physician interpretation. Normal sinus rhythm at 72bpm. Moderate right axis, normal intervals and no ST segment elevation or depression. Discharge Plan Discharge Chief Complaint: OB/Uterine Contractions Clinical Impression: Dizziness, POTS (postural orthostatic tachycardia syndrome) Patient Disposition: Home, Self-Care Time of Disposition Decision: 22:37 Prescriptions / Home Meds: No Action metoprolol succinate 25 mg tablet extended release 24 hr 25 mg PO DAILY ondansetron HCl 4 mg tablet 4 mg PO Q6H PRN (Reason: nausea and vomiting) Instructions: Dizziness (ED), POTS (Postural Orthostatic Tachycardia Syndrome) (ED) Stand Alone Forms: Portal Instructions Referrals: Physician,Non-Staff, MD [Primary Care Provider] - 1 week
[2023-05-17] MEDS: 0.9 % SODIUM CHLORIDE 1,000 ML 999 ML IV (21:19)
[2023-05-17 21:47] LABS: Basophils Percent Auto 0.2 % (0.2-2.0); Eosinophils Absolute Auto 0.2 10^3/uL (0.0-0.7); Eosinophils Percent Auto 1.7 % (0.9-7.0); Hematocrit 35.8 % (36.0-48.0); Hemoglobin 11.8 g/dL (12.0-16.0); Immature Granulocytes Abs Auto 0.04 10^3/uL (0.00-0.03); Immature Granulocytes Pct Auto 0.4 % (0.0-0.5); Lymphocytes Percent Auto 28.4 % (20.5-60.0); Mean Corpuscular Hemoglobin 28.9 pg (26.7-34.0); Mean Corpuscular Volume 87.5 fL (81.0-99.0); Mean Platelet Volume 10.9 fL (9.5-13.5); Monocytes Absolute Auto 0.6 10^3/uL (0.3-0.8); Monocytes Percent Auto 5.7 % (1.7-12.0); Neutrophils Absolute Auto 6.7 10^3/uL (1.4-6.5); Neutrophils Percent Auto 63.6 % (43.0-75.0); Platelet Count 285 10^3/uL (150-450); Red Blood Count 4.09 10^6/uL (4.20-5.40); Red Cell Distribution Width 13.4 % (11.0-15.0); White Blood Count 10.5 10^3/uL (4.0-11.0)
[2023-05-17 22:17] LABS: Alanine Aminotransferase 26 U/L (14-59); Albumin Globulin Ratio 0.8; Albumin Level 3.3 g/dL (3.4-5.0); Alkaline Phosphatase 62 U/L (46-116); Anion Gap 15.2; Aspartate Amino Transferase 14 U/L (15-37); Bilirubin Total 0.2 mg/dL (0.2-1.0); Carbon Dioxide 24.3 mmol/L (21.0-32.0); Chloride 105 mmol/L (98-107); Estimated GFR (African America >60 (>=60); Estimated GFR (Non-African Ame >60 (>=60); Globulin 4.3 g/dL; Glucose 91 mg/dL (74-106); Potassium 3.5 mmol/L (3.5-5.1); Sodium 141 mmol/L (136-145); Total Protein 7.6 g/dL (6.4-8.2)
== END 2023-05-17 22:58 | disposition home or self-care (01) ==
PROVIDERS: Emergency Provider Emergency Medicine
DX: O26.891 Other specified pregnancy related conditions, first trimester (principal); R42 Dizziness and giddiness; G90.A Postural orthostatic tachycardia syndrome [POTS]; Z3A.12 12 weeks gestation of pregnancy; Z79.899 Other long term (current) drug therapy
CPT/HCPCS: 36415; 80053; 85025; 93005; 99284

== ENCOUNTER 2023-06-15 21:01 | Outpatient (REF) | payer OTHER, SELFPAY ==
--- OUTSIDE RECORDS SUMMARY | 2023-06-15 21:07 | XMS_ITS | CCD ---
Author Organization [facility] Care Team Providers Care Fur Dry Cleaner Name Role Phone Nick Leonardo DO Primary Care Provider [phone] NICK LEONARDO Primary Care Unavailable YOGI MARQUEZ Referring Unavailable NICK LEONARDO Primary Care Unavailable YOGI MARQUEZ Referring Unavailable YOGI MARQUEZ Referring Unavailable NICK LEONARDO Primary Care Unavailable JORDEN, NICK Abdullahi Primary Care Unavailable YOGI MARQUEZ Referring Unavailable [...] Consulting Unavailable GLENN ., BRENT Consulting Unavailable ROSARIO HERNANDEZ Consulting Unavailable JORDEN, DR TUCKER Primary Care [...] Unavailable WOLF ., DR QUINN Consulting Unavailable BALL, DR TUCKER Primary Care Unavailable ZIEBER, DR [...] Value Interpretation Reference Range Facility COVID/FLU/RSV RT-PCRon 06-04 SARS-CoV-2 (COVID-19) RNA DEVIN+probe Ql (Unsp spec) Negative [facility] Other COVID/FLU/RSV RT-PCR Negative [facility] Other Quick Strepon 06-04-2022 S. pyogenes Org specific cx Ql (Throat) Negative [facility] Other Quick Strep Entrec [facility] Other CBC AUTO DIFFon 01-24-2022 BASO # 0.1 103/ul Normal 0.0-0.1 [facility] Comment on above: Performed By: #### A FPTET #### [facility] [address] [place] [address] Dr. Belkys Fajardo Basophils/100 WBC (Bld) 0.3 % Normal 0.2-2.0 [facility] Comment on above: Performed By: #### A FPTET #### [facility] [address] [place] [address] Dr. Belkys Fajardo EO # 0.1 103/ul Normal 0.0-0.7 [facility] Comment on above: Performed By: #### A FPTET #### [facility] [address] [address] [address] Belkys Fajardo Eosinophils/100 WBC (Bld) 0.9 % Normal 0.9-7.0 [facility] Comment on above: Performed By: #### A FPTET #### [facility] [address] [place] [address] Dr. Belkys Fajardo Erythrocyte distribution width (RBC) [Ratio] 14.0 % Normal 11.0-15.0 [facility] Comment on above: Performed By: #### A FPTET #### [facility] [address] [place] [address] Dr. Belkys Fajardo Hematocrit (Bld) [Volume fraction] 24.8 % Critically low 36.0-48.0 [facility] Comment on above: Performed By: #### A FPTET #### [facility] [address] [place] [address] Dr. Belkys Fajardo Hemoglobin (Bld) [Mass/Vol] 8.2 g/dL Critically low 12.0-16.0 [facility] Comment on above: Performed By: #### A FPTET #### [facility] [address] [place] [address] Dr. Belkys Fajardo IG # 0.23 10e3/ul Critically high 0.00-0.03 [facility] Comment on above: Performed By: #### A FPTET #### [facility] [address] [place] [address] Dr. Belkys Fajardo IG % 1.5 % Critically high 0.0-0.5 [facility] Comment on above: Performed By: #### A FPTET #### [facility] [address] [place] [address] Dr. Belkys Fajardo LYMPH # 2.4 103/ul Normal 1.2-3.8 [facility] Comment on above: Performed By: #### A FPTET #### [facility] [address] [place] [address] Dr. Belkys Fajardo Lymphocytes/100 WBC (Bld) 15.5 % Critically low 20.5-60.0 [facility] Comment on above: Performed By: #### A FPTET #### [facility] [address] [place] [address] Dr. Belkys Fajardo MANUAL DIFF REQ NO Normal [facility] Comment on above: Performed By: #### A FPTET #### [facility] [address] [place] [address] Dr. Belkys Fajardo MCH (RBC) [Entitic mass] 28.5 pg Normal 26.7-34.0 [facility] Comment on above: Performed By: #### A FPTET #### [facility] [address] [place] [address] Dr. Belkys Fajardo MCHC (RBC) [Mass/Vol] 33.1 g/dL Normal 29.9-35.2 [facility] Comment on above: Performed By: #### A FPTET #### [facility] [address] [place] [address] Dr. Belkys Fajardo MCV (RBC) [Entitic vol] 86.1 fL Normal 81.0-99.0 [facility] Comment on above: Performed By: #### A FPTET #### [facility] [address] [place] [address] Dr. Belkys Fajardo MONO # 0.8 103/ul Normal 0.3-0.8 [facility] Comment on above: Performed By: #### A FPTET #### [facility] [address] [place] [address] Dr. Belkys Fajardo Monocytes/100 WBC (Bld) 5.4 % Normal 1.7-12.0 [facility] Comment on above: Performed By: #### A FPTET #### [facility] [address] [place] [address] Dr. Belkys Fajardo NEUT # 11.6 103/ul Critically high 1.4-6.5 [facility] Comment on above: Performed By: #### A FPTET #### [facility] [address] [place] [address] Dr. Belkys Fajardo Neutrophils/100 WBC (Bld) 76.4 % Critically high 43.0-75.0 [facility] Comment on above: Performed By: #### A FPTET #### [facility] [address] [place] [address] Dr. Belkys Fajardo Platelet mean volume (Bld) [Entitic vol] 10.2 fL Normal 9.5-13.5 [facility] Comment on above: Performed By: #### A FPTET #### [facility] [address] [place] [address] Dr. Belkys Fajardo PLT 235 103/ul Normal 150-450 [facility] Comment on above: Performed By: #### A FPTET #### [facility] [address] [place] [address] Dr. Belkys Fajardo RBC 2.88 106/ul Critically low 4.20-5.40 [facility] Comment on above: Performed By: #### A FPTET #### [facility] [address] [place] [address] Dr. Belkys Fajardo WBC 15.2 103/ul Critically high 4.0-11.0 The [facility] Comment on above: Performed By: #### A FPTET #### [facility] [address] [place] [address] Dr. Belkys Fajardo CBC AUTO DIFFon 01-23-2022 BASO # 0.1 103/ul Normal 0.0-0.1 [facility] Comment on above: Performed By: #### A FPTET #### [facility] [address] [place] [address] Dr. Belkys Fajardo Basophils/100 WBC (Bld) 0.4 % Normal 0.2-2.0 [facility] Comment on above: Performed By: #### A FPTET #### [facility] [address] [place] [address] Dr. Belkys Fajardo EO # 0.1 103/ul Normal 0.0-0.7 [facility] Comment on above: Performed By: #### A FPTET #### [facility] [address] [place] [address] Dr. Belkys Fajardo Eosinophils/100 WBC (Bld) 0.5 % Critically low 0.9-7.0 [facility] Comment on above: Performed By: #### A FPTET #### [facility] [address] [place] [address] Dr. Belkys Fajardo Erythrocyte distribution width (RBC) [Ratio] 13.8 % Normal 11.0-15.0 [facility] Comment on above: Performed By: #### A FPTET #### [facility] [address] [place] [address] Dr. Belkys Fajardo Hematocrit (Bld) [Volume fraction] 32.5 % Critically low 36.0-48.0 [facility] Comment on above: Performed By: #### A FPTET #### [facility] [address] [place] [address] Dr. Belkys Fajardo Hemoglobin (Bld) [Mass/Vol] 11.0 g/dL Critically low 12.0-16.0 [facility] Comment on above: Performed By: #### A FPTET #### [facility] [address] [address] [address] Belkys Fajardo IG # 0.31 10e3/ul Critically high 0.00-0.03 [facility] Comment on above: Performed By: #### A FPTET #### [facility] [address] [address] [address] Belkys Fajardo IG % 1.6 % Critically high 0.0-0.5 [facility] Comment on above: Performed By: #### A FPTET #### [facility] [address] [address] [address] Belkys Fajardo LYMPH # 2.0 103/ul Normal 1.2-3.8 [facility] Comment on above: Performed By: #### A FPTET #### [facility] [address] [place] [address] Dr. Belkys Fajardo Lymphocytes/100 WBC (Bld) 10.2 % Critically low 20.5-60.0 [facility] Comment on above: Performed By: #### A FPTET #### [facility] [address] [place] [address] Dr. Belkys Fajardo MANUAL DIFF REQ NO Normal [facility] Comment on above: Performed By: #### A FPTET #### [facility] [address] [place] [address] Dr. Belkys Fajardo MCH (RBC) [Entitic mass] 28.4 pg Normal 26.7-34.0 [facility] Comment on above: Performed By: #### A FPTET #### [facility] [address] [place] [address] Dr. Belkys Fajardo MCHC (RBC) [Mass/Vol] 33.8 g/dL Normal 29.9-35.2 [facility] Comment on above: Performed By: #### A FPTET #### [facility] [address] [place] [address] Dr. Belkys Fajardo MCV (RBC) [Entitic vol] 83.8 fL Normal 81.0-99.0 [facility] Comment on above: Performed By: #### A FPTET #### [facility] [address] [address] [address] Belkys Fajardo MONO # 0.9 103/ul Critically high 0.3-0.8 [facility] Comment on above: Performed By: #### A FPTET #### [facility] [address] [address] [address] Belkys Fajardo Monocytes/100 WBC (Bld) 4.8 % Normal 1.7-12.0 [facility] Comment on above: Performed By: #### A FPTET #### [facility] [address] [place] [address] Dr. Belkys Fajardo NEUT # 16.0 103/ul Critically high 1.4-6.5 The [facility] Comment on above: Performed By: #### A FPTET #### [facility] [address] [place] [address] Dr. Belkys Fajardo Neutrophils/100 WBC (Bld) 82.5 % Critically high 43.0-75.0 [facility] Comment on above: Performed By: #### A FPTET #### [facility] [address] [place] [address] Dr. Belkys Fajardo Platelet mean volume (Bld) [Entitic vol] 10.1 fL Normal 9.5-13.5 [facility] Comment on above: Performed By: #### A FPTET #### [facility] [address] [place] [address] Dr. Belkys Fajardo PLT 301 103/ul Normal 150-450 [facility] Comment on above: Performed By: #### A FPTET #### [facility] [address] [place] [address] Dr. Belkys Fajardo RBC 3.88 106/ul Critically low 4.20-5.40 [facility] Comment on above: Performed By: #### A FPTET #### [facility] [address] [place] [address] Dr. Belkys Fajardo WBC 19.3 103/ul Critically high 4.0-11.0 The [facility] Comment on above: Performed By: #### A FPTET #### [facility] [address] [place] [address] Dr. Belkys Fajardo CULTURE URINEon 01-23-2022 CULTURE URINE Culture Observations : LIGHT GROWTH OF MIXED GENITAL HEYDI. NO POTENTIAL PATHOGENS SEEN. Normal [facility] Comment on above: Performed By: #### U ACSIND, UMICRO #### [facility] [address] [address] [address] Belkys Fajardo [facility] SARS-CoV-2 (COVID-19) RNA DEVIN+probe Ql (Unsp spec) Not detected Normal NOT DETECTED [facility] Comment on above: Result Comment: When [...] for this test is supported by the Depue of Health and Human Service's declaration that [...] used). Performed By: #### C VDTBH #### [facility] [address] [place] [address] Dr. Belkys Fajardo DRUG SCREEN RAPID (URINE)on 01-23-2022 AMP Negative Normal NEGATIVE [facility] Comment on above: Performed By: #### A FPTET #### [facility] [address] [place] [address] Dr. Belkys Fajardo BAR Negative Normal NEGATIVE [facility] Comment on above: Performed By: #### A FPTET #### [facility] [address] [place] [address] Dr. Belkys Fajardo BUP Negative Normal NEGATIVE [facility] Comment on above: Performed By: #### A FPTET #### [facility] [address] [place] [address] Dr. Belkys Fajardo BZO Negative Normal NEGATIVE [facility] Comment on above: Performed By: #### A FPTET #### [facility] [address] [place] [address] Dr. Belkys Fajardo VALENCIA Negative Normal NEGATIVE [facility] Comment on above: Performed By: #### A FPTET #### [facility] [address] [place] [address] Dr. Belkys Fajardo CUT-OFFS SEE BELOW Normal [facility] Comment on above: Result Comment: AMP [...] ng/mL Performed By: #### A FPTET #### [facility] [address] [place] [address] Dr. Belkys Fajardo DRUG CUT HEADER DRUG CLASS TEST SYSTEM CUT-OFF CONCENTRATIONS ARE FOLLOWS: Normal [facility] Comment on above: Performed By: #### A FPTET #### [facility] [address] [place] [address] Dr. Belkys Fajardo mAMP Negative Normal NEGATIVE [facility] Comment on above: Performed By: #### A FPTET #### [facility] [address] [place] [address] Dr. Belkys Fajardo MTD Negative Normal NEGATIVE [facility] Comment on above: Performed By: #### A FPTET #### [facility] [address] [place] [address] Dr. Belkys Fajardo OPI Negative Normal NEGATIVE [facility] Comment on above: Performed By: #### A FPTET #### [facility] [address] [place] [address] Dr. Belkys Fajardo OXY Negative Normal NEGATIVE [facility] Comment on above: Performed By: #### A FPTET #### [facility] [address] [place] [address] Dr. Belkys Fajardo PCP Negative Normal NEGATIVE [facility] Comment on above: Performed By: #### A FPTET #### [facility] [address] [place] [address] Dr. Belkys Fajardo PPX Negative Normal NEGATIVE [facility] Comment on above: Performed By: #### A FPTET #### [facility] [address] [place] [address] Dr. Belkys Fajardo TCA Negative Normal NEGATIVE [facility] Comment on above: Performed By: #### A FPTET #### [facility] [address] [place] [address] Dr. Belkys Fajardo THC Negative Normal NEGATIVE [facility] Comment on above: Performed By: #### A FPTET #### [facility] [address] [place] [address] Dr. Belkys Fajardo TYPE AND SCREENon 01-23-2022 TYPE AND SCREEN Negative Normal [facility] Comment on above: Performed By: #### U ACSTAMELA UMICRO #### [facility] [address] [place] [address] Dr. Belkys Fajardo UA (CLEAN/CATCH) CHALK MOLDING MACHINE OPERATOR/MICRO I F IND.on 01-23-2022 Bilirubin Ql (U) Negative Normal NEGATIVE [facility] Comment on above: Performed By: #### U ACSTAMELA UMICRO #### [facility] [address] [place] [address] Dr. Belkys Fajardo Clarity (U) CLEAR Normal CLEAR [facility] Comment on above: Performed By: #### U ACSIND, UMICRO #### [facility] [address] [place] [address] Dr. Belkys Fajardo Color (U) LT. YELLOW Normal YELLOW [facility] Comment on above: Performed By: #### U ACSIND, UMICRO #### [facility] [address] [address] [address] Belkys Fajardo Glucose Ql (U) Negative Normal NEGATIVE [facility] Comment on above: Performed By: #### U ACSIND, UMICRO #### [facility] [address] [address] [address] Belkys Fajardo Hemoglobin Ql (U) TRACE-INTACT Abnormal NEGATIVE [facility] Comment on above: Performed By: #### U ACSIND, UMICRO #### [facility] [address] [address] [address] Belkys Fajardo Ketones Ql (U) Negative Normal NEGATIVE [facility] Comment on above: Performed By: #### U ACSIND, UMICRO #### [facility] [address] [address] [address] Belkys Fajardo LEUKOCYTES MODERATE Abnormal NEGATIVE [facility] Comment on above: Performed By: #### U ACSIND, UMICRO #### [facility] [address] [address] [address] Belkys Fajardo Nitrite Ql (U) Negative Normal NEGATIVE [facility] Comment on above: Performed By: #### U ACSIND, UMICRO #### [facility] [address] [address] [address] Belkys Fajardo pH (U) 6.5 [pH] Normal 5-9 [facility] Comment on above: Performed By: #### U ACSIND, UMICRO #### [facility] [address] [address] [address] Belkys Fajardo SPEC GRAVITY 1.015 Normal 1.005-<=1.025 [facility] Comment on above: Performed By: #### U ACSIND, UMICRO #### [facility] [address] [address] [address] Belkys Fajardo UA PROTEIN Negative Normal NEGATIVE/ TRACE [facility] Comment on above: Performed By: #### U ACSIND, UMICRO #### [facility] [address] [place] [address] Dr. Belkys Fajardo UR MICRO IND INDICATED Normal [facility] Comment on above: Performed By: #### U ACSTAMELA, UMICRO #### [facility] [address] [place] [address] Dr. Belkys Fajardo Urobilinogen Qn (U) 0.2 {Jakob'U}/dL Normal 0.2 - 1. 0 [facility] Comment on above: Performed By: #### U ACSTAMELA, UMICRO #### [facility] [address] [place] [address] Dr. Belkys Fajardo URINE MICROSCOPIC ONLYon BACTERIA SMALL Abnormal NONE SEEN [facility] Comment on above: Performed By: #### U ACSTAMELA, UMICRO #### [facility] [address] [place] [address] Dr. Belkys Fajardo Bacteria identified Cx Nom (U) INDICATED Normal [facility] Comment on above: Performed By: #### U ACSTAMELA, UMICRO #### [facility] [address] [place] [address] Dr. Belkys Fajardo CAST NONE SEEN Normal NONE SEEN [facility] Comment on above: Performed By: #### U ACSTAMELA, UMICRO #### [facility] [address] [place] [address] Dr. Belkys Fajardo Crystals LM Nom (Urine sed) NONE SEEN Normal NONE SEEN [facility] Comment on above: Performed By: #### U ACSTAMELA, UMICRO #### [facility] [address] [place] [address] Dr. Belkys Fajardo Epithelial cells LM Ql (Urine sed) FEW Abnormal NONE SEEN /RARE [facility] Comment on above: Performed By: #### U ACSTAMELA, UMICRO #### [facility] [address] [place] [address] Dr. Belkys Fajardo MUCOUS NONE SEEN Normal NONE SEEN [facility] Comment on above: Performed By: #### U ACSIND, UMICRO #### [facility] [address] [place] [address] Dr. Belkys Fajardo RBC NONE SEEN Abnormal 0-2 [facility] Comment on above: Performed By: #### U ACSIND, UMICRO #### [facility] [address] [address] [address] Belkys Fajardo WBC 5-10 Abnormal NONE SEEN [facility] Comment on above: Performed By: #### U ACSIND, UMICRO #### [facility] [address] [address] [address] Belkys Fajardo US PREG GROWTHon 01-12-2022 [...] YOGI BLACK Date: 2022-01-12 21:15 Normal [facility] GROUP B STREP CULTUREon 12-26 S. agalactiae Ag Ql (Unsp spec) Culture Observations: NEGATIVE FOR GROUP B STREPTOCOCCUS. Normal [facility] Comment on above: Performed By: #### G BSCX #### [facility] [address] [place] [address] Dr. Belkys Fajardo GTT 3 HR PREGon 12-11-2021 Glucose [Mass/Vol] 91 mg/dL Normal 74-106 [facility] Comment on above: Performed By: #### G TT3P #### [facility] [address] [place] [address] Dr. Belkys Fajardo Glucose [Mass/Vol] 172 mg/dL Normal [facility] Comment on above: Performed By: #### G TT3P #### [facility] [address] [address] [address] Belkys Fajardo Glucose [Mass/Vol] 148 mg/dL Normal [facility] Comment on above: Performed By: #### G TT3P #### [facility] [address] [address] [address] Belkys Fajardo Glucose [Mass/Vol] 58 mg/dL Normal [facility] Comment on above: Performed By: #### G TT3P #### [facility] [address] [address] [address] Belkys Fajardo US PREG GROWTHon 12-08-2021 [...] by: YOGI BLACK Date: 2021-12-08 16:52 Normal [facility] GLUCOSE - 1HRon 11-12-2021 Glucose [Mass/Vol] 143 mg/dL Critically high 74-106 [facility] Comment on above: Performed By: #### U ACSIND, UMICRO #### [facility] [address] [address] [address] Belkys Fajardo HEMOGRAM AND PLATELon 2021 Hematocrit (Bld) [Volume fraction] 31.7 % Critically low 36.0-48.0 [facility] Comment on above: Performed By: #### A FPTET #### [facility] [address] [place] [address] Dr. Belkys Fajardo Hemoglobin (Bld) [Mass/Vol] 10.4 g/dL Critically low 12.0-16.0 [facility] Comment on above: Performed By: #### A FPTET #### [facility] [address] [place] [address] Dr. Belkys Fajardo MCH (RBC) [Entitic mass] 28.8 pg Normal 26.7-34.0 [facility] Comment on above: Performed By: #### A FPTET #### [facility] [address] [place] [address] Dr. Belkys Fajardo MCHC (RBC) [Mass/Vol] 32.8 g/dL Normal 29.9-35.2 [facility] Comment on above: Performed By: #### A FPTET #### [facility] [address] [place] [address] Dr. Belkys Fajardo MCV (RBC) [Entitic vol] 87.8 fL Normal 81.0-99.0 [facility] Comment on above: Performed By: #### A FPTET #### [facility] [address] [place] [address] Dr. Belkys Fajardo PLT 261 103/ul Normal 150-450 [facility] Comment on above: Performed By: #### A FPTET #### [facility] [address] [place] [address] Dr. Belkys Fajardo RBC 3.61 106/ul Critically low 4.20-5.40 [facility] Comment on above: Performed By: #### A FPTET #### [facility] [address] [place] [address] Dr. Belkys Fajardo WBC 11.5 103/ul Critically high 4.0-11.0 The [facility] Comment on above: Performed By: #### A FPTET #### [facility] [address] [place] [address] Dr. Belkys Fajardo US PREG PLACENTAon 2 [...] by: YOGI BLACK Date: 2021-11-10 21:07 Normal [facility] US PREG PLACENTAon 2 US PREG PLACENTA EXAMINATION: US PREG PLACENTA HISTORY: Low lying placenta COMPARISON: Ultrasound anatomy 09/16/2021 FINDINGS: PLACENTA: Posterior with lower margin 2.5 cm from os. CERVIX LENGTH: 4.4 cm, closed. HEART RATE: 157 bpm OTHER: None. IMPRESSION: 1. Low-lying posterior placenta; no appreciable change compared to prior study. Electronically authenticated by: YOGI BLACK Date: 2021-10-14 19:56 Normal [facility] US PREG ANATOMY SINGLEon US PREG [...] YOGI BLACK Date: 2021-09-16 16:54 Normal [facility] AFP TETRA PROFILE (MATERNAL) on 09-06-2021 PDF . Normal [facility] Comment on above: Performed By: #### A FPTET #### [facility] [address] [address] [address] Belkys Fajardo AFP MoM 0.86 Normal [facility] Comment on above: Performed By: #### A FPTET #### [facility] [address] [address] [address] Belkys Fajardo AFP Value 39.7 ng/mL Normal [facility] Comment on above: Performed By: #### A FPTET #### [facility] [address] [address] [address] Belkys Fajardo Comment Comment Normal [facility] Comment on above: Result Comment: Geremias Greer, Ph.D., [facility] Director . References: Available Upon Request. . Multiples Of Median Cutoffs Abbreviation Definitions For AFP Elevations IDD- Insulin Dep Diabetes Granados 2.5 Black 2.8 OSBR- Open Spina Bifida IDD 2.0 Twins 4.5 Risk DSR Cutoff 1:270 DSR- Down Syndrome Risk T18 Cutoff 1:100 T18- Trisomy 18 . Down Syndrome and Trisomy 18 screening are considered Investigational . For further inquiries contact [facility] at [phone]. Performed By: #### A FPTET #### [facility] [address] [address] [address] Belkys Fajardo MONIE MoM 0.77 Normal [facility] Comment on above: Performed By: #### A FPTET #### [facility] [address] [address] [address] Belkys Fajardo MONIE Value 113.50 pg/mL Normal [facility] Comment on above: Performed By: #### A FPTET #### [facility] [address] [place] [address] Dr. Belkys Fajardo DSR (By Age) 1 [place] 765 Normal [facility] Comment on above: Performed By: #### A FPTET #### [facility] [address] [place] [address] Dr. Belkys Fajardo DSR (Second Trimester) 1 [place] [address] [facility] Comment on above: Performed By: #### A FPTET #### [facility] [address] [place] [address] Dr. Belkys Fajardo Gest. Age on Collection Date 20.7 WEEKS [facility] Comment on above: Performed By: #### A FPTET #### [facility] [address] [place] [address] Dr. Belkys Fajardo Gestat. Age Based On LMP [facility] Comment on above: Result Comment: 03/30 Performed By: #### A FPTET #### [facility] [address] [place] [address] Dr. Belkys Fajardo hCG MoM 0.78 Normal [facility] Comment on above: Performed By: #### A FPTET #### [facility] [address] [place] [address] [place] [address] m[IU]/mL [facility] Comment on above: Performed By: #### A FPTET #### [facility] [address] [place] [address] Dr. Belkys Fajardo Insulin Dep Diabetes No Normal [facility] Comment on above: Performed By: #### A FPTET #### [facility] [address] [place] [address] Dr. Belkys Fajardo Interpretation Comment Normal [facility] Comment on above: Result Comment: Inte [...] identifies 60% of Trisomy 18 pregnancies. The [employer] recommends amniocentesis be offered to women age 35 and older. Recalculations are not recommended when gestational dating by LMP and ultrasound are within 10 days. Performed By: #### A FPTET #### [facility] [address] [place] [address] Dr. Belkys Fajardo [age] Normal [facility] Comment on above: Performed By: #### A FPTET #### [facility] [address] [place] [address] Dr. Belkys Fajardo Multiple Gestation No Normal [facility] Comment on above: Performed By: #### A FPTET #### [facility] [address] [place] [address] Dr. Belkys [place] [address] Normal [facility] Comment on above: Performed By: #### A FPTET #### [facility] [address] [place] [address] Dr. Belkys Fajardo Race Normal [facility] Comment on above: Performed By: #### A FPTET #### [facility] [address] [place] [address] Dr. Belkys Fajardo Results Report Normal [facility] Comment on above: Performed By: #### A FPTET #### [facility] [address] [place] [address] Dr. Belkys Fajardo T18 (By Age) 1:2981 Normal [facility] Comment on above: Performed By: #### A FPTET #### [facility] [address] [place] [address] Dr. Belkys Fajardo T18 Risk Not increased Normal [facility] Comment on above: Performed By: #### A FPTET #### [facility] [address] [place] [address] Dr. Belkys Fajardo Test Results: Negative Normal [facility] Comment on above: Performed By: #### A FPTET #### [facility] [address] [address] [address] Belkys Fajardo uE3 MoM 1.43 [facility] Comment on above: Performed By: #### A FPTET #### [facility] [address] [place] [address] Dr. Belkys Fajardo uE3 Value 2.26 ng/mL [facility] Comment on above: Performed By: #### A FPTET #### [facility] [address] [place] [address] Dr. Belkys Fajardo PAP ACOG PANEL 2: 21 to 29on 08-24-2021 . . Normal [facility] Comment on above: Result Comment: Perf ormed at: BA Performed By: #### [id number] #### [facility] [address] [place] [address] Dr. Belkys Fajardo Age Gdln ACOG Testing - [facility] Comment on above: Performed By: #### [id number] #### [facility] [address] [place] [address] Dr. eBlkys Fajardo DIAGNOSIS: Comment [facility] Comment on above: Result Comment: NEGA TIVE FOR INTRAEPITHELIAL LESION OR MALIGNANCY. Performed at: BA Performed By: #### [id number] #### [facility] [address] [place] [address] Dr. Belkys Fajardo Methodology: Comment [facility] Comment on above: Result Comment: This liquid based ThinPrep(R) pap test was screened with the use of an image guided system. Performed at: WB Performed By: #### [id number] #### [facility] [address] [place] [address] Dr. Belkys Fajardo Note: Comment Normal [facility] Comment on above: Result Comment: The Pap smear is a screening test designed to aid in the detection of premalignant and malignant conditions of the uterine cervix. It is not a diagnostic procedure and should not be used as the sole means of detecting cervical cancer. Both false-positive and false-negative reports do occur. . Performed at: WB Performed By: #### [id number] #### [facility] [address] [place] [address] Dr. Belkys Fajardo Performed by: Comment Normal [facility] Comment on above: Result Comment: Vicky Avila, Director Veterinary (ASCP) Performed at: BA Performed By: #### [id number] #### [facility] [address] [place] [address] Dr. Belkys Fajardo Reflex Criteria: Comment Normal [facility] Comment on above: Result Comment: The HPV DNA reflex criteria were not met with this specimen result therefore, no HPV testing was performed. . Performed at: BA Performed By: #### [id number] #### [facility] [address] [place] [address] Dr. Belkys Fajardo Specimen adequacy: Comment Normal [facility] Comment on above: Result Comment: Sati sfactory for evaluation. No endocervical component is identified. Performed at: BA Performed By: #### [id number] #### [facility] [address] [place] [address] Dr. Belkys Fajardo CBC AUTO DIFFon 08-22-2021 BASO # 0.0 103/ul Normal 0.0-0.1 [facility] Comment on above: Performed By: #### C BC #### [facility] [address] [place] [address] Dr. Belkys Fajardo Basophils/100 WBC (Bld) 0.2 % Normal 0.2-2.0 [facility] Comment on above: Performed By: #### C BC #### [facility] [address] [place] [address] Dr. Belkys Fajardo EO # 0.2 103/ul Normal 0.0-0.7 [facility] Comment on above: Performed By: #### C BC #### [facility] [address] [place] [address] Dr. Belkys Fajardo Eosinophils/100 WBC (Bld) 1.9 % Normal 0.9-7.0 [facility] Comment on above: Performed By: #### C BC #### [facility] [address] [place] [address] Dr. Belkys Fajardo Erythrocyte distribution width (RBC) [Ratio] 13.4 % Normal 11.0-15.0 [facility] Comment on above: Performed By: #### C BC #### [facility] [address] [place] [address] Dr. Belkys Fajardo Hematocrit (Bld) [Volume fraction] 32.7 % Critically low 36.0-48.0 [facility] Comment on above: Performed By: #### C BC #### [facility] [address] [place] [address] Dr. Belkys Fajardo Hemoglobin (Bld) [Mass/Vol] 11.0 g/dL Critically low 12.0-16.0 [facility] Comment on above: Performed By: #### C BC #### [facility] [address] [place] [address] Dr. Belkys Fajardo IG # 0.05 10e3/ul Critically high 0.00-0.03 [facility] Comment on above: Performed By: #### C BC #### [facility] [address] [place] [address] Dr. Belkys Fajardo IG % 0.5 % Normal 0.0-0.5 [facility] Comment on above: Performed By: #### C BC #### [facility] [address] [place] [address] Dr. Belkys Fajardo LYMPH # 2.3 103/ul Normal 1.2-3.8 [facility] Comment on above: Performed By: #### C BC #### [facility] [address] [place] [address] Dr. Belkys Fajardo Lymphocytes/100 WBC (Bld) 22.4 % Normal 20.5-60.0 [facility] Comment on above: Performed By: #### C BC #### [facility] [address] [place] [address] Dr. Belkys Fajardo MANUAL DIFF REQ NO Normal [facility] Comment on above: Performed By: #### C BC #### [facility] [address] [address] [address] Belkys Fajardo MCH (RBC) [Entitic mass] 29.3 pg Normal 26.7-34.0 [facility] Comment on above: Performed By: #### C BC #### [facility] [address] [place] [address] Dr. Belkys Fajardo MCHC (RBC) [Mass/Vol] 33.6 g/dL Normal 29.9-35.2 [facility] Comment on above: Performed By: #### C BC #### [facility] [address] [place] [address] Dr. Belkys Fajardo MCV (RBC) [Entitic vol] 87.2 fL Normal 81.0-99.0 [facility] Comment on above: Performed By: #### C BC #### [facility] [address] [place] [address] Dr. Belkys Fajardo MONO # 0.6 103/ul Normal 0.3-0.8 [facility] Comment on above: Performed By: #### C BC #### [facility] [address] [place] [address] Dr. Belkys Fajardo Monocytes/100 WBC (Bld) 5.5 % Normal 1.7-12.0 [facility] Comment on above: Performed By: #### C BC #### [facility] [address] [place] [address] Dr. Belkys Fajardo NEUT # 7.1 103/ul Critically high 1.4-6.5 [facility] Comment on above: Performed By: #### C BC #### [facility] [address] [place] [address] Dr. Belkys Fajardo Neutrophils/100 WBC (Bld) 69.5 % Normal 43.0-75.0 [facility] Comment on above: Performed By: #### C BC #### [facility] [address] [place] [address] Dr. Belkys Fajardo Platelet mean volume (Bld) [Entitic vol] 10.3 fL Normal 9.5-13.5 [facility] Comment on above: Performed By: #### C BC #### [facility] [address] [place], [place] [address] Dr. Belkys Fajardo PLT 258 103/ul Normal 150-450 [facility] Comment on above: Performed By: #### C BC #### [facility] [address] [place], [place] [address] Dr. Belkys Fajardo RBC 3.75 106/ul Critically low 4.20-5.40 [facility] Comment on above: Performed By: #### C BC #### [facility] [address] [place], [place] [address] Dr. Belkys Fajardo WBC 10.2 103/ul Normal 4.0-11.0 [facility] Comment on above: Performed By: #### C BC #### [facility] [address] [place], [place] [address] Dr. Belkys Fajardo CTA CHEST WO W [...] by: ROSARIO HERNANDEZ Date: 2021-08-22 08:31 Normal [facility] SARS-CoV-2 (COVID-19) RNA DEVIN+probe Ql (Unsp spec) Not detected Normal NOT DETECTED [facility] Comment on above: Result Comment: When [...] for this test is supported by the [employer] of Health and Human Service's declaration that [...] used). Performed By: #### C VDTB #### [facility] [address] [place] [address] Dr. Belkys Fajardo PROF 14(COMP METB)on 022 Albumin [Mass/Vol] 3.0 g/dL Critically low 3.4-5.0 [facility] Comment on above: Performed By: #### A FPTET #### [facility] [address] [place] [address] Dr. Belkys Fajardo Albumin/Globulin [Mass ratio] 0.8 {ratio} Normal [facility] Comment on above: Performed By: #### A FPTET #### [facility] [address] [place] [address] Dr. Belkys Fajardo ALP [Catalytic activity/Vol] 52 U/L Normal 46-116 [facility] Comment on above: Performed By: #### A FPTET #### [facility] [address] [place] [address] Dr. Belkys Fajardo ALT [Catalytic activity/Vol] 32 U/L Normal 14-59 [facility] Comment on above: Performed By: #### A FPTET #### [facility] [address] [place] [address] Dr. Belkys Fajardo Anion gap [Moles/Vol] 12.8 mmol/L Normal [facility] Comment on above: Performed By: #### A FPTET #### [facility] [address] [place] [address] Dr. Belkys Fajardo AST [Catalytic activity/Vol] 17 U/L Normal 15-37 [facility] Comment on above: Performed By: #### A FPTET #### [facility] [address] [place] [address] Dr. Belkys Fajardo Bilirubin [Mass/Vol] 0.3 mg/dL Normal 0.2-1.0 [facility] Comment on above: Performed By: #### A FPTET #### [facility] [address] [place] [address] Dr. Belkys Fajardo Calcium [Mass/Vol] 8.5 mg/dL Normal 8.5-10.1 [facility] Comment on above: Performed By: #### A FPTET #### [facility] [address] [place] [address] Dr. Belkys Fajardo Chloride [Moles/Vol] 103 mmol/L Normal 98-107 [facility] Comment on above: Performed By: #### A FPTET #### [facility] [address] [place] [address] Dr. Belkys Fajardo CO2 [Moles/Vol] 24.7 mmol/L Normal 21.0-32.0 The [facility] Comment on above: Performed By: #### A FPTET #### [facility] [address] [place] [address] Dr. Belkys Fajardo Creatinine [Mass/Vol] 0.46 mg/dL Critically low 0.55-1.02 [facility] Comment on above: Performed By: #### A FPTET #### [facility] [address] [place] [address] Dr. Belkys Fajardo EGFR-AF FIJIAN >60 Normal >=60 The [facility] Comment on above: Performed By: #### A FPTET #### [facility] [address] [place] [address] Dr. Belkys Fajardo EGFR-NON AF FIJIAN >60 Normal >=60 [facility] Comment on above: Performed By: #### A FPTET #### [facility] [address] [place] [address] Dr. Belkys Fajardo Globulin (S) [Mass/Vol] 3.7 g/dL Normal [facility] Comment on above: Performed By: #### A FPTET #### [facility] [address] [address] [address] Belkys Fajardo Glucose [Mass/Vol] 84 mg/dL Normal 74-106 [facility] Comment on above: Performed By: #### A FPTET #### [facility] [address] [place] [address] Dr. Belkys Fajardo Potassium [Moles/Vol] 3.5 mmol/L Normal 3.5-5.1 [facility] Comment on above: Performed By: #### A FPTET #### [facility] [address] [place] [address] Dr. Belkys Fajardo Protein [Mass/Vol] 6.7 g/dL Normal 6.4-8.2 [facility] Comment on above: Performed By: #### A FPTET #### [facility] [address] [place] [address] Dr. Belkys Fajardo Sodium [Moles/Vol] 137 mmol/L Normal 136-145 [facility] Comment on above: Performed By: #### A FPTET #### [facility] [address] [place] [address] Dr. Belkys Fajardo Urea nitrogen [Mass/Vol] 7.0 mg/dL Normal 7.0-18.0 [facility] Comment on above: Performed By: #### A FPTET #### [facility] [address] [place] [address] Dr. Belkys Fajardo Urea nitrogen/Creatinine [Mass ratio] 15.2 mg/mg Normal [facility] Comment on above: Performed By: #### A FPTET #### [facility] [address] [place] [address] Dr. Belkys Fajardo TROPONIN, HIGH SENSITIVITYon 08-22-2021 HSTROP <4.0 Normal 4.0-51.3 [facility] Comment on above: Result Comment: CUT- OFF POINTS HAVE BEEN ESTABLISHED BASED ON THE FOURTH UNIVERSAL DEFINITIONS OF MYOCARDIAL INFARCTION. THE UPPER REFERENCE LIMIT (URL) OF TROPONIN, DEFINED THE 99TH PERCENTILE OF cTnI DISTRIBUTION IN A REFERENCE POPULATION, HAS BEEN CONFIRMED THE DECISION THRESHOLD FOR [place] DIAGNOSIS. Performed By: #### A FPTET #### [facility] [address] [place] [address] Dr. Belkys Fajardo CHLAMYDIA/GONOCOCCUS DEVIN (SW AB/URINE/PAPon 08-21-2021 Chlamydia trachomatis, DEVIN Negative Normal Negative [facility] Comment on above: Performed By: #### C T/NGNA #### [facility] [address] [place] [address] Dr. Belkys Fajardo Neisseria gonorrhoeae, DEVIN Negative Normal Negative [facility] Comment on above: Performed By: #### C T/NGNA #### [facility] [address] [place] [address] Dr. Belkys Fajardo VAGINITIS/VAGINOSIS DNA PROB Gab 08-20-2021 Lani species Negative Normal Negative [facility] Comment on above: Performed By: #### A FPTET #### [facility] [address] [place] [address] Dr. Belkys Fajardo Gardnerella vaginalis Negative Normal Negative [facility] Comment on above: Performed By: #### A FPTET #### [facility] [address] [place] [address] Dr. Belkys Fajardo Trichomonas vaginalis Negative Normal Negative [facility] Comment on above: Performed By: #### A FPTET #### [facility] [address] [place] [address] Dr. Belkys Fajardo TSH w/reflex to FT4on 2021 TSH Qn 1.58 m[IU]/L Normal 0.30-5.00 [facility] Comment on above: Performed By: #### T SHX #### [facility] [address] [place] [address] [place] [address] Utilization Management Manager: Rosario Linares MD TILT TABLE TESTon 04-13-2021 TILT TABLE TEST [address] [id number] TILT TABLE TEST PATIENT NAME: AUDREY DOZIER : 1990 MED REC NO: [id number] ROOM: ACCOUNT NO: [id number] ADMIT DATE: 04/10/2021 PROVIDER: Neelam Owen Cardiovascular [...] up with their primary care physician and/or sponge maker as previously scheduled. STUDY CONCLUSIONS: Abnormal head [...] the treatment of this condition. NEELAM OWEN JESSICA/WADE Doc#: Unknown CC: [facility] Vital Signs Date Time Vital Sign Value Performing Clinician Facility 07-28-2022 10:15-0400 Body height 170.18 cm Nick Leonardo Other [facility] Other 07-28-2022 10:15-0400 Body mass index (BMI) [Ratio] 27.81 kg/m2 Nick Jorden Other [facility] Other 07-28-2022 10:15-0400 Body weight 80.56 kg Nick Leonardo Other [facility] Other 07-28-2022 10:15-0400 Diastolic blood pressure 75 mm[Hg] Nick Jorden Other [facility] Other 07-28-2022 10:15-0400 Systolic blood pressure 112 mm[Hg] Nick Leonardo Other [facility] Other 06-04-2022 17:00-0500 Body height 170.18 cm Cristal Guidry Other [facility] Other 06-04-2022 17:00-0500 Body mass index (BMI) [Ratio] 28.19 kg/m2 Cristal Guidry Other [facility] Other 06-04-2022 17:00-0500 Body temperature 97.4 [degF] Cristal Guidry Other [facility] Other 06-04-2022 17:00-0500 Body weight 81.65 kg Cristal Guidry Other [facility] Other 06-04-2022 17:00-0500 Respiratory rate 18 /min Cristal Guidry Other [facility] Other 06-04-2022 17:00-0500 SaO2% (BldA) [Mass fraction] 98 % Cristal Guidry Other [facility] Other 09-06-2021 02:05-0400 Body weight 77.[address] CHEYENNE MEADE . [facility] Comment on above: Performed By: #### AFPTET #### [facility] [address] [place] [address] Dr. Belkys Fajardo Encounters Encounter Date Encounter Type Care Provider Facility Start: 05-16-2023 End: 05-16-2023 ambulatory CHEYENNE MEADE Not Available Start: 04-08-2023 End: 04-08-2023 ambulatory CHEYENNE MEADE Not Available Start: 07-28-2022 End: 07-28-2022 ambulatory Nick Leonardo Other [facility] Other Start: 07-28-2022 Office outpatient vi sit 15 minutes Nick Leonardo [facility] Start: 07-28-2022 Telephone encounter Nick Leonardo [facility] Start: 06-04-2022 End: 06-04-2022 ambulatory Cristal Guidry Other [facility] Other Start: 06-04-2022 Office outpatient ne w 20 minutes Cristal Guidry [facility] Start: 02-01-2022 End: 02-01-[address] CHEYENNE MEADE . Facility: Start: 01-23-2022 End: 01-27-2022 Evaluation and management [...] End: 08-18-[address] CHEYENNE MEADE . Facility: Start: 04-15-2021 End: 04-16-2021 ambulatory NICK Gonzales [facility] Start: 04-10-2021 End: 04-11-2021 ambulatory NICK Gonzales [facility] Start: 04-10-2021 End: 04-10-2021 Subsequent hospital visit by physician [facility] [employer] [facility] EKG Comment on above: Palpitations; Post-COVID chronic [...] 04/15/2021 Office Visit Cardiology Yogi Marquez MD [address] [place] [address] [facility] Start: 11-26-2020 Influenza vaccination Flu vaccine (# 1) [facility] Start: 10-08-2020 DTaP/Tdap/Td vaccine (7 - Td or Tdap) DTaP/Tdap/Td vaccine (7 - Td or Tdap) [facility] Start: 2013 Screening for malign ant neoplasm of cervix Pap smear [facility] Start: 10-30-2007 HIV screening HIV screen [facility] Start: 2004 Depression Screen Depression Screen [facility] Start: 1997 COVID-19 Vaccine (1) COVID-19 Vaccin e (1) [facility] Start: 1993 Varicella vaccine (1 of 2 - 2-dose childhood series) Varicella vaccine (1 of 2 - 2-dose childhood series) [facility] Start: 1992 Hepatitis C screening Hepatitis C sc reen [facility] Payers Date Payer Category Payer Unknown [id number] 1990 Unknown [id number] 2.16.8 [id number] 1990 Unknown [id number] 2.16.8 40.1.277229.3.579.2.173 1990 Unknown [id number] 2.16.8 40.1.814801.3.579.2.173 1992 Unknown [id number] 2.16.8 40.1.171270.3.579.2.173 1992 Unknown [id number] 2.16.84 0.1.841690.3.579.2.593 1992 Unknown [id number] 2.16.84 0.1.742486.3.579.2.593 1992 Unknown [id number] 2.16.84 0.1.799446.3.579.2.593 1992 Unknown [id number] 2.16.84 0.1.782367.3.579.2.593 1992 Unknown [id number] 2.16.84 0.1.627340.3.579.2.593 1992 Unknown [id number] 2.16.84 0.1.784209.3.579.2.593 1992 Unknown [id number] 2.16.84 0.1.806573.3.579.2.593 1992 Unknown [id number] 2.16.84 0.1.511619.3.579.2.593 1992 Unknown [id number] 2.16.84 0.1.492583.3.579.2.593 1992 Unknown [id number] 2.16.84 0.1.700342.3.579.2.593 1992 Unknown [id number] 2.16.84 0.1.432248.3.579.2.593 1992 Unknown [id number] 2.16.84 0.1.585922.3.579.2.593 1992 Unknown [id number] 2.16.84 0.1.732420.3.579.2.593 1992 Unknown [id number] 2.16.84 0.1.653151.3.579.2.1259 1992 Unknown [id number] 2.16.84 0.1.710978.3.579.2.1259 1959 Unknown [id number] Social History Date Type Detail Facility Start: 08-29-2014 Tobacco smoking status UTIS Never smoked tobacco [employer] Phone: Start: 08-29-2014 Tobacco use and exposure Smokeless tobacco non-user [employer] Phone: Start: 03-09-2021 Alcohol intake Current drinke r of alcohol (finding) [employer] Phone: Start: 03-09-2021 Alcohol intake [employer] Phone: Start: 08-29-2014 History SDOH Alcohol Comment occ. [employer] Phone: Start: 1990 Sex Assigned At Not on file [facility] [facility]: Sex Assigned At Sex Assigned At Bir th [facility] Other Evaluation note 07-28-2022 Note Date & [...] Monitor for now may not need treatment [facility] Other Evaluation note 06-04-2022 Note Date & [...] other viral communicable diseases (ICD-10 - Z20.828) [facility] Other Clinical Note 01-23-2022 Note Date & Type Note Facility 01-23-2022 Note OPERATIVE NOTE OPERATION DATE: 02/18/2022 PROCEDURE: Repair of fourth degree perineal laceration. PREOPERATIVE DIAGNOSIS: Fourth degree perineal laceration. POSTOPERATIVE DIAGNOSIS: Fourth degree perineal laceration. ANESTHESIA: Epidural SURGEON: Cheyenne Meade D.O. RETAIL LOSS PREVENTION INVESTIGATOR: BOBO Cole URINE OUTPUT: Yellow and clear. [...] taken to recovery in stable condition. [facility] Clinical Note 2022 Note Date & Type Note Facility 01-23-2022 Note OP Note OPERATION DATE: 01/23/2022 PROCEDURE: Repair of fourth degree perineal laceration. PREOPERATIVE DIAGNOSIS: Fourth degree perineal laceration. POSTOPERATIVE DIAGNOSIS: Fourth degree perineal laceration. ANESTHESIA: Epidural SURGEON: Cheyenne Meade D.O. RETAIL LOSS PREVENTION INVESTIGATOR: BOBO Cole URINE OUTPUT: Yellow and clear. [...] taken to recovery in stable condition. [facility] Clinical Note 01-23-2022 Note Date & Type Note Facility 01-23-2022 Note OPERATIVE NOTE OPERATION DATE: 02/10/2022 PROCEDURE: Repair of fourth degree laceration. PREOPERATIVE DIAGNOSIS: Fourth degree laceration. POSTOPERATIVE DIAGNOSIS: Fourth degree laceration. ANESTHESIA: General. SURGEON: Cheyenne Meade D.O. RETAIL LOSS PREVENTION INVESTIGATOR: BOBO URINE OUTPUT: Yellow and clear. BLOOD [...] sheath and this was done in a [id number] fashion. This was performed using 3-0 Vicryl. [...] The patient tolerated this procedure well. [facility] Clinical Note 08-22-2021 Note Date & [...] by: DERIC VO Date: 2021-08-22 07:30 [facility] Evaluation note Note Date & Type Note Facility Evaluation note Diagnosis Palpitations Post-COVID chronic palpitations Shortness of breath Lightheaded Dizziness and giddiness Dizziness Dizziness and giddiness documented in this encounter [employer]: Evaluation note Note Date & Type Note Facility Evaluation note No Information [employer] [facility] Other History general Narrative - Reported Note Date & Type Note Facility History general Narrative - Reported Type Medical History POTS Medical History sinus tachycardia Surgical History 4th degree vaginal tear after g iving 2021 [facility] Other History general Narrative - Reported Note Date & Type Note Facility History general Narrative - Reported Type Medical History POTS Medical History sinus tachycardia Medical History Anxiety, generalized Surgical History 4th degree vaginal t ear after giving 2021 Surgical History MASTOPEXY OF BOTH BR EASTS WITH INSERTION OF SALINE IMPLANTS Hospitalization History SEE SURGICAL HX [facility] Other Reason for Referral Specialty Diagnoses / Procedures Referred By Willy smith Referred To Contact Cardiology Diagnoses Palpitations Post-COVID chronic palpitations Shortness of breath Lightheaded Dizziness Procedures Holter Monitor 24 Hour Yogi Marquez MD [address] [place] [address] Referral ID Status Reason Start Date Expiration Date Visits Re quested Visits Authorized [id number] Open 03/09/2021 03/09/2022 1 1 Advance Directives No Advanced Directives Records FoundDocuments on File Type Date Recorded Patient Supervisor Force Adjustment Expl anation ACP-Advance Directive ACP-Power of Tableau Analyst Summary Purpose Family History No Family History Records FoundNo Family History Records FoundNo Family History Records Found Additional Source Comments Reason for Visit (unrecogniz ed section and content) Specialty Diagnoses / Procedures Referred By Willy smith Referred To Contact Cardiology Diagnoses Palpitations Post-COVID chronic palpitations Shortness of breath Lightheaded Dizziness Procedures Holter Monitor 24 Hour Yogi Marquez MD [address] [place] [address] Referral ID Status Reason Start Date Expiration Date Visits Re quested Visits Authorized [id number] Open 03/09/2021 03/09/2022 1 1 Care Teams (unrecognized sec tion and content) [employer] Relationship Specialty Start Date End Date Nick Leonardo DO [address] [facility] [place] [address] PCP - General Internal Medicine 03/09/21 INFORMATION SOURCE (unrecogn ized section and content) DATE CREATED AUTHOR 04/16/2021 [facility] DATE CREATED AUTHOR AUTHOR'S ORGANIZ ATION 07/01/2022 [facility] DATE CREATED AUTHOR AUTHOR'S ORGANIZ ATION 05/17/2023 [facility] FOR RECORDS PERTAINING TO PATIENTS WHO ARE [...] BE BASED ON THE PRIMARY CLINICAL RECORDS. [employer] provides no warranty or guarantee of the accuracy or completeness of information in this document.
[2023-06-21 10:13] LABS: Age Gdln ACOG Testing Note (.); HPV Aptima Negative (Negative); IGP, Aptima HPV, rfx 16/18,45 Note (.)
== END 2023-06-15 21:02 | disposition home or self-care (01) ==
LOC: LAB 21:01
PROVIDERS: Visit Provider Obstetrics & Gynecology
DX: Z01.419 Encounter for gynecological examination (general) (routine) without abnormal findings (principal)
CPT/HCPCS: 87624; G0145

== ENCOUNTER 2023-06-30 16:44 | Outpatient (OUT) | payer OTHER, SELFPAY ==
--- NOTE | 2023-06-30 17:22 | US_ITS ---
[address] [address] Patient Name: AUDREY DOZIER MRN: [id number] date: 1990 Sex: F Assigned Patient Location: US Current Patient Location: Accession/Order Number: [id number] Exam Date: 06/30/2023 17:25 Report Date: 07/01/2023 09:17 At the request of: CHEYENNE BLOOM Procedure: US OB anatomy EXAMINATION: US OB anatomy, US OB cervical length HISTORY: SCREENING FOR ANATOMIC SURVEY Z36.89 COMPARISON: No relevant comparison available. TECHNIQUE: Transabdominal sonographic examination was performed for obstetrical and evaluation. FINDINGS: Number: 1 Heart Rate: 150.8 bpm H.B. /min Amniotic Fluid Volume: Subjectively normal Placental Location: POSTERIOR , grade 1, with lower margin 1.2 cm from os. 2.8 x 2.2 x 1.4 cm hypoechoic area suspected to represent a venous seth. Cervix Length: 6.0 cm, closed. ANATOMY: Normal Structures -cerebellum, choroid plexus, cisterna magna, lateral cerebral ventricles, orbits, midline falx, hard palate, four-chamber heart, RVOT, LVOT, stomach, kidneys, bladder, umbilical cord insertion into abdomen, three-vessel cord, cervical spine, thoracic spine, lumbar spine, sacral spine, right upper extremity, left upper extremity, right lower extremity, left lower extremity. SUBOPTIMALLY SEEN: None ABNORMALITIES: None BIOMETRY: BPD: 4.4 cm 19 weeks 3 days HC: 16.9 cm 19 weeks 4 days AC: 14.6 cm 19 weeks 6 days FL: 3.3 cm 20 weeks 2 days EFW:326.4 grams; 46% FL/AC: 22.5 FL/BPD: 74.2 HC/AC: 1.2 GESTATIONAL AGE: Age by EDC: 20 weeks 0 days GUNJAN by EDC: 11/17/2023 Age by current US: 19 weeks 6 days GUNJAN by current US: 11/18/2023 US/US OB anatomy IMPRESSION: 1. Single live intrauterine with growth detailed above. 2. Posterior low-lying placenta. Electronically authenticated by: AILYN BLACK Date: 07/01/2023 09:17
--- NOTE | 2023-06-30 17:22 | US_ITS ---
[address] [address] Patient Name: AUDREY DOZIER MRN: [id number] date: 1990 Sex: F Assigned Patient Location: US Current Patient Location: Accession/Order Number: [id number] Exam Date: 06/30/2023 17:25 Report Date: 07/01/2023 09:17 At the request of: CHEYENNE BLOOM Procedure: US OB cervical length EXAMINATION: US OB anatomy, US OB cervical length HISTORY: SCREENING FOR ANATOMIC SURVEY Z36.89 COMPARISON: No relevant comparison available. TECHNIQUE: Transabdominal sonographic examination was performed for obstetrical and evaluation. FINDINGS: Number: 1 Heart Rate: 150.8 bpm H.B. /min Amniotic Fluid Volume: Subjectively normal Placental Location: POSTERIOR , grade 1, with lower margin 1.2 cm from os. 2.8 x 2.2 x 1.4 cm hypoechoic area suspected to represent a venous seth. Cervix Length: 6.0 cm, closed. ANATOMY: Normal Structures -cerebellum, choroid plexus, cisterna magna, lateral cerebral ventricles, orbits, midline falx, hard palate, four-chamber heart, RVOT, LVOT, stomach, kidneys, bladder, umbilical cord insertion into abdomen, three-vessel cord, cervical spine, thoracic spine, lumbar spine, sacral spine, right upper extremity, left upper extremity, right lower extremity, left lower extremity. SUBOPTIMALLY SEEN: None ABNORMALITIES: None BIOMETRY: BPD: 4.4 cm 19 weeks 3 days HC: 16.9 cm 19 weeks 4 days AC: 14.6 cm 19 weeks 6 days FL: 3.3 cm 20 weeks 2 days EFW:326.4 grams; 46% FL/AC: 22.5 FL/BPD: 74.2 HC/AC: 1.2 GESTATIONAL AGE: Age by EDC: 20 weeks 0 days GUNJAN by EDC: 11/17/2023 Age by current US: 19 weeks 6 days GUNJAN by current US: 11/18/2023 US/US OB cervical length IMPRESSION: 1. Single live intrauterine with growth detailed above. 2. Posterior low-lying placenta. Electronically authenticated by: AILYN BLACK Date: 07/01/2023 09:17
== END 2023-06-30 16:45 | disposition home or self-care (01) ==
PROVIDERS: Visit Provider Obstetrics & Gynecology
DX: Z36.89 Encounter for other specified antenatal screening (principal); Z3A.19 19 weeks gestation of pregnancy; O44.42 Low lying placenta NOS or without hemorrhage, second trimester
CPT/HCPCS: 76805; 76817

== ENCOUNTER 2023-07-28 14:46 | Outpatient (OUT) | payer OTHER, SELFPAY ==
--- NOTE | 2023-07-28 14:50 | US_ITS ---
[address] [address] Patient Name: AUDREY DOZIER MRN: [id number] date: 1990 Sex: F Assigned Patient Location: [facility] Current Patient Location: [facility] Accession/Order Number: [id number] Exam Date: 07/28/2023 14:51 Report Date: 07/28/2023 15:58 At the request of: CHEYENNE BLOOM Procedure: US OB cervical length EXAM: US OB placenta, US OB cervical length HISTORY: LOW LYING PLACENTA COMPARISON: None. TECHNIQUE: Transabdominal and transvaginal images FINDINGS: position: Cephalic presentation, longitudinal lie The cervix is closed measuring 4.9 cm in length The placenta is posterior in location. No retroplacental echogenic abnormality to suggest abruption. Area of hypoechogenicity in the superficial placenta measuring 1.9 x 1.2 x 3.0 cm likely a placental seth. The placental edge is 3.7 cm from the internal cervical os Heart rate: 151 beats minute Clinical age: 24 weeks 0 days Clinical GUNJAN: 11/17/2023 US/US OB cervical length IMPRESSION: The placental edge is 3.7 cm from the internal cervical os The cervix is closed measuring 4.9 cm in length Electronically authenticated by: ROSARIO GARRISON Date: 07/28/2023 15:58
--- NOTE | 2023-07-28 14:50 | US_ITS ---
[address] [address] Patient Name: AUDREY DOZIER MRN: [id number] date: 1990 Sex: F Assigned Patient Location: [facility] Current Patient Location: [facility] Accession/Order Number: [id number] Exam Date: 07/28/2023 14:51 Report Date: 07/28/2023 15:58 At the request of: CHEYENNE BLOOM Procedure: US OB placenta EXAM: US OB placenta, US OB cervical length HISTORY: LOW LYING PLACENTA COMPARISON: None. TECHNIQUE: Transabdominal and transvaginal images FINDINGS: position: Cephalic presentation, longitudinal lie The cervix is closed measuring 4.9 cm in length The placenta is posterior in location. No retroplacental echogenic abnormality to suggest abruption. Area of hypoechogenicity in the superficial placenta measuring 1.9 x 1.2 x 3.0 cm likely a placental seth. The placental edge is 3.7 cm from the internal cervical os Heart rate: 151 beats minute Clinical age: 24 weeks 0 days Clinical GUNJAN: 11/17/2023 US/US OB placenta IMPRESSION: The placental edge is 3.7 cm from the internal cervical os The cervix is closed measuring 4.9 cm in length Electronically authenticated by: ROSARIO GARRISON Date: 07/28/2023 15:58
== END 2023-07-28 14:47 | disposition home or self-care (01) ==
LOC: NOMS 14:46
PROVIDERS: Visit Provider Obstetrics & Gynecology
DX: O44.40 Low lying placenta NOS or without hemorrhage, unspecified trimester (principal); Z3A.24 24 weeks gestation of pregnancy
CPT/HCPCS: 76815; 76817

== ENCOUNTER 2023-09-06 10:41 | Outpatient (OUT) | payer OTHER, SELFPAY ==
[2023-09-06 12:01] LABS: Basophils Percent Auto 0.3 % (0.2-2.0); Eosinophils Absolute Auto 0.1 10^3/uL (0.0-0.7); Eosinophils Percent Auto 0.7 % (0.9-7.0); Hematocrit 32.2 % (36.0-48.0); Hemoglobin 10.7 g/dL (12.0-16.0); Immature Granulocytes Abs Auto 0.11 10^3/uL (0.00-0.03); Lymphocytes Absolute Auto 1.9 10^3/uL (1.2-3.8); Lymphocytes Percent Auto 17.2 % (20.5-60.0); Mean Corpuscular HGB Conc 33.2 g/dL (29.9-35.2); Mean Corpuscular Hemoglobin 28.8 pg (26.7-34.0); Mean Corpuscular Volume 86.8 fL (81.0-99.0); Mean Platelet Volume 10.1 fL (9.5-13.5); Monocytes Absolute Auto 0.5 10^3/uL (0.3-0.8); Monocytes Percent Auto 4.7 % (1.7-12.0); Neutrophils Absolute Auto 8.3 10^3/uL (1.4-6.5); Neutrophils Percent Auto 76.1 % (43.0-75.0); Platelet Count 246 10^3/uL (150-450); Red Blood Count 3.71 10^6/uL (4.20-5.40); Red Cell Distribution Width 12.9 % (11.0-15.0); White Blood Count 10.9 10^3/uL (4.0-11.0)
[2023-09-06 12:03] LABS: Glucose 1 Hour 156 mg/dL (<130)
== END 2023-09-06 10:42 | disposition home or self-care (01) ==
LOC: LAB 10:41
PROVIDERS: Visit Provider Obstetrics & Gynecology
DX: Z13.1 Encounter for screening for diabetes mellitus (principal)
CPT/HCPCS: 36415; 82950; 85025

== ENCOUNTER 2023-09-17 08:13 | Outpatient (OUT) | payer OTHER, SELFPAY ==
--- OUTSIDE RECORDS SUMMARY | 2023-09-17 08:15 | XMS_ITS ---
Patient Summarization (C-CDA 2.1 CCD) Created on: September 17, 2023 TASIA VENTURA, Jess AUDREY N~TASIA : 1990 Sex: Female Author Organization Sample organization Care Team Providers Care Domestic Housekeeper Name Role Phone Jorden Nick Primary Care Provider [phone] Cristal Guidry Unavailable WOLF ., DR QUINN [...] Unavailable WOLF ., DR QUINN Admitting Unavailable BALL, DR TUCKER Primary Care Unavailable ZIEBER, DR YOGI Witt Consulting Unavailable WOLF ., DR QUINN Consulting Unavailable WOLF ., DR QUINN Attending Unavailable WOLF ., DR QUINN Admitting Unavailable BALL, DR TUCKER Primary Care Unavailable [...] ., DR QUINN Admitting Unavailable REQUEST, DR MARK LISTED Primary Care Unavaila ble ZIEBER, DR YOGI [employer] Unavailable WOLF [...] Unavailable ZIEBER, DR YOGI Witt Consulting Unavailable Ball, Nick Unavailable YOGI MARQUEZ Attending Unavailable DIANNE, YOGI Referring Unavailable DE LEON, LIS A Primary Care Unavailable BRUKE, YOGI Attending Unavailable BRUHL, YOGI Referring Unavailable DE LEON, LIS A Primary Care Unavailable DE LEON, LIS A Primary Care Unavailable WOLF, CHEYENNE Attending Unavailable WOLF, CHEYENNE Attending Unavailable WOLF, CHEYENNE Attending Unavailable WOLF, CHEYENNE Attending Unavailable WOLF, CHEYENNE Attending Unavailable WOLF, CHEYENNE Attending Unavailable Encounters Encounter Date Encounter Type Care Provider Facility Start: 09-07-2023 End: 09-07-2023 ambulatory CHEYENNE OWLF Not Available Start: 08-24-2023 End: 08-24-2023 ambulatory CHEYENNE WOLF Not Available Start: 08-10-2023 End: 08-10-2023 ambulatory CHEYENNE WOLF Not Available Start: 07-28-2023 End: 07-31-2023 ambulatory [facility] Start: 07-26-2023 End: 07-27-2023 Emergency department patient visit [facility] Start: 07-25-2023 End: 07-28-2023 ambulatory [facility] Start: 07-13-2023 End: 07-13-2023 ambulatory CHEYENNE WOLF Not Available Start: 06-15-2023 End: 06-15-2023 ambulatory CHEYENNE WOLF Not Available Start: 05-16-2023 End: 05-16-2023 ambulatory CHEYENNE WOLF Not Available Start: 04-08-2023 End: 04-08-2023 ambulatory CHEYENNE WOLF Not Available Start: 07-28-2022 End: 07-28-2022 ambulatory Nick Leonardo Other [email or web address] Other Start: 07-28-2022 Office outpatient vi sit 15 minutes Nick Leonardo [facility] Start: 07-28-2022 Telephone encounter Nick Leonardo [facility] Start: 06-04-2022 End: 06-04-2022 ambulatory Cristal Guidry Other [email or web address] Other Start: 06-04-2022 Office outpatient ne w 20 minutes Cristal Guidry [facility] Start: 02-01-2022 End: 02-01-2022 [...] ambulatory DR CHEYENNE MEADE . Facility:[facility] Start: 04-10-2021 End: 04-10-2021 Subsequent hospital visit by physician [facility] [employer] [facility] EKG Comment on above: Palpitations; Post-COVID chronic palpitations; Shortness of breath; Lightheaded; Dizziness Medications Current Medications Medication Drug Class(es) Dates [...] morning meal Orally Once a day Not-Taking Payers Date Payer Category Payer Unknown [id number] 1990 Unknown [id number] 2.16.84 [id number] 1990 Unknown [id number] 2.16.84 0.1.826235.3.579.2.593 1990 Unknown [id number] 2.16.84 0.1.903967.3.579.2.593 1990 Unknown [id number] 2.16.84 0.1.242753.3.579.2.593 1992 Unknown [id number] 2.16.84 0.1.505372.3.579.2.593 1992 Unknown [id number] 2.16.84 0.1.425508.3.579.2.593 1992 Unknown [id number] 2.16.84 0.1.140672.3.579.2.593 1992 Unknown [id number] 2.16.84 0.1.473266.3.579.2.593 1992 Unknown [id number] 2.16.84 0.1.441437.3.579.2.593 1990 Unknown [id number] 2.16.84 0.1.552877.3.579.2.593 1992 Unknown [id number] 2.16.84 0.1.689367.3.579.2.593 1992 Unknown [id number] 2.16.84 0.1.057957.3.579.2.593 1992 Unknown [id number] 2.16.84 0.1.179028.3.579.2.593 1992 Unknown [id number] 2.16.8 40.1.973826.3.579.2.173 1990 Unknown [id number] 2.16.8 40.1.937805.3.579.2.173 1990 Unknown [id number] 2.16.8 40.1.039685.3.579.2.173 1990 Unknown [id number] 2.16.84 0.1.644331.3.579.2.1259 1992 Unknown [id number] 2.16.84 0.1.228372.3.579.2.1259 1992 Unknown [id number] 2.16.84 0.1.689978.3.579.2.9 1992 Unknown [id number] 2.16.84 0.1.499890.3.579.2.9 1992 Unknown [id number] 2.16.84 0.1.157717.3.579.2.9 1992 Unknown [id number] 2.16.84 0.1.145392.3.579.2.9 1992 Unknown [id number] 2.16.84 0.1.198483.3.579.2.1259 1959 Unknown [id number] Plan of Treatment Date Care Activity Detail Author Start: 04-15-2021 End: 04-15-2021 Patient encounter procedure 04/15/2021 Office Visit Cardiology Yogi Marquez MD [address] [place] [address] [facility] Start: 11-26-2020 Influenza vaccination Flu vaccine (# 1) [facility] Start: 10-08-2020 DTaP/Tdap/Td vaccine (7 - Td or Tdap) DTaP/Tdap/Td vaccine (7 - Td or Tdap) [facility] Start: 2013 Screening for malign ant neoplasm of cervix Pap smear [facility] Start: 10-30-2007 HIV screening HIV screen [facility] Start: 2004 Depression Screen Depression Screen [facility] Start: 1997 COVID-19 Vaccine (1) COVID-19 Vaccin e (1) [facility] Start: 1993 Varicella vaccine (1 of 2 - 2-dose childhood series) Varicella vaccine (1 of 2 - 2-dose childhood series) [facility] Start: 1992 Hepatitis C [facility] Active Problems Problem Classification Problem Date Documented Date Episodic/Chronic Anxiety disorders (2 sources) Generalized anxiety disorder; Translations: [Generalized anxiety disorder] Chronic Cardiac dysrhythmias (2 sources) Palpitations; Translations: [Palpitations] Episodic Fluid and electrolyte disorders (2 sources) Hypokalemia; Translations: [Hypo-osmolality and hyponatremia] Onset: 07-26-2023 Episodic Immunizations and screening for infectious disease (6 sources) Contact with and (suspected) exposure to other viral communicable diseases; Translations: [Encounter for screening for human papillomavirus (HPV)] Onset: 08-20-2021 Episodic Lymphadenitis (1 source) Localized enlarged lymph nodes Episodic Nonspecific chest pain (1 source) Chest pain, unspecified; Translations: [Chest pain, unspecified] Onset: 07-28-2023 Episodic Other circulatory disease (1 source) Postural orthostatic tachycardia syndrome ; Translations: [Postural orthostatic tachycardia syndrome (POTS)] Onset: 07-25-2023 Episodic Other infections; including parasitic (1 source) 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; Translations: [Post-COVID syndrome] 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-2021 03-09-2021 Chronic Other and delivery including normal (10 sources) Encounter for routine follow-up; Translations: [Single live ] Onset: 09-04-2021 Episodic Other skin disorders (1 source) Sebaceous cyst Episodic Other upper respiratory infections (2 sources) Acute pharyngitis, unspecified; Translations: [Acute upper respiratory infection, unspecified] Episodic Residual codes; unclassified (1 source) Personal history of other specified conditions; Translations: [Personal history of other specified conditions] Onset: 07-25-2023 Episodic Sprains and strains (1 source) Strain of muscle, fascia and tendon at neck level, initial encounter Episodic Unclassified (1 source) CONTACT W/AND (SUSP) EXPOS COVID-19; Translations: [CONTACT W/AND (SUSP) EXPOS COVID-19] Onset: 09-03-2021 Past or Other Problems Problem Classification Problem Date Documented Date Episodic/Chronic Conditions associated with dizziness or vertigo (3 sources) Lightheadedness; Translations: [Dizziness and giddiness] 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-2023 Episodic Diabetes mellitus without complication (4 sources) Other [...] FORMS OF DYSPNEA] Onset: 09-03-2021 Episodic Other screening for suspected conditions (not [...] WEEKS GESTATION OF ] Onset: 09-03-2021 Episodic Procedures Date Procedure Procedure Detail Performing Clinician Start: 01-23-2022 Repair Rectum, Open Approach DR CHEYENNE MEADE . Start: 01-23-2022 Delivery of Products of Conception, External Approach DR CHEYENNE MEADE . Start: 01-23-2022 Division of Female P erineum, External Approach DR CHEYENNE MEADE . Start: 01-23-2022 Drainage of Amniotic Fluid, Therapeutic from Products of Conception, Via Natural or Artificial Opening DR CHEYENNE MEADE . Results Test Name Value Interpretation Reference Range Facility UA w/Reflex Cultureon 2023 Bilirubin, SemiQt,Ur Negative Normal NEG [facility] Comment on above: Performed By: #### U MICAO, UAX #### [facility] [address] [place] [address] [place] [address] Geology Professor: Rosario Linares MD Blood, Urine Negative Normal NEG [facility] Comment on above: Performed By: #### U MICAO, UAX #### [facility] [address] [place] [address] Dr. [place], [place] [id number] Geology Professor: Rosario Linares MD Clarity (U) Clear Normal CLEAR [facility] Comment on above: Performed By: #### U MICAO, UAX #### [facility] [address] [place] [address] Dr. [place], [place] [id number] Geology Professor: Rosario Linares MD Color (U) Yellow Normal YEL [facility] Comment on above: Performed By: #### U MICAO, UAX #### [facility] [address] [place], [place] [id number] Geology Professor: Rosario Linares MD Glucose Ql (U) Negative Normal NEG [facility] Comment on above: Performed By: #### U MICAO, UAX #### [facility] [address] [place] [address] Dr. [place], [place] 9992783 Geology Professor: Rosario Linares MD Ketones Ql (U) Negative Normal NEG [facility] Comment on above: Performed By: #### U MICAO, UAX #### [facility] [address] [place] [address] Geology Professor: Rosario Linares MD Leukocyte esterase Test strip Ql (U) SMALL Abnormal NEG [facility] Comment on above: Performed By: #### U MICAO, UAX #### [facility] [address] [place], [place] [id number] Geology Professor: Rosario Linares MD Nitrite,Ur Negative Normal NEG [facility] Comment on above: Performed By: #### U MICAO, UAX #### [facility] [address] [place], [place] 6463483 Geology Professor: Rosario Linares MD PH,Ur 8.0 Normal 5.0-9.0 [facility] Comment on above: Performed By: #### U MICAO, UAX #### [facility] [address] [place] [address] [place] [address] Geology Professor: Rosario Linares MD Protein Ql (U) Negative Normal NEG [facility] Comment on above: Performed By: #### U MICAO, UAX #### [address] [place], [place] 0085483 Geology Professor: Rosario Linares MD Spec. [place],Ur 1.015 Normal 1.010-1.020 [facility] Comment on above: Performed By: #### U MICAO, UAX #### [facility] [address] [place] [address] Dr. [place], [place] 3520983 Geology Professor: Rosario Linares MD Urobilinogen,Ur Normal Normal 0.0-1.0 [facility] Comment on above: Performed By: #### U MICAO, UAX #### [address] [place], [place] 8010183 Geology Professor: Rosario Linares MD Urinalysis,Microon 4 Bacteria TRACE Abnormal NONE [facility] Comment on above: Performed By: #### U MICAO, UAX #### [facility] [address] [place], [place] [phone] Geology Professor: Rosario Linares MD Epithelial cells LM Ql (Urine sed) 5 TO 10 Normal 0-25 [facility] Comment on above: Performed By: #### U MICAO, UAX #### [facility] [address] [place], [place] 3931983 Geology Professor: Rosario Linares MD Urine RBC's None Normal 0-2 [facility] Comment on above: Performed By: #### U MICAO, UAX #### [facility] [address] [place], [place] 4655183 Geology Professor: Rosario Linares MD Urine WBC's 2 TO 5 Normal 0-5 [facility] Comment on above: Performed By: #### U PAOLAO, UAX #### [facility] [address] [place], [place] [phone] Geology Professor: Rosario Linares MD Basic Metabolic Profon 07-25 Anion gap [Moles/Vol] 13 mmol/L Normal 9-17 [facility] Comment on above: Performed By: #### B MP, CDP #### [facility] [address] [place], [place] 9202983 Geology Professor: Rosario Linares MD BUN/CRE Ratio 18 Normal 9-20 [facility] Comment on above: Performed By: #### B MP, CDP #### [facility] [address] [place], [place] 2216083 Geology Professor: Rosario Linares MD Calcium [Mass/Vol] 8.7 mg/dL Normal 8.6-10.4 [facility] Comment on above: Performed By: #### B MP, CDP #### [facility] [address] [place] [address] Geology Professor: Rosario Linares MD Chloride [Moles/Vol] 100 mmol/L Normal 98-107 [facility] Comment on above: Performed By: #### B LAZ, CDP #### [facility] [address] [place] [address] Geology Professor: Rosario Linares MD CO2 [Moles/Vol] 21 mmol/L Normal 20-31 [facility] Comment on above: Performed By: #### B LAZ, CDP #### [facility] [address] [place] [address] Geology Professor: Rosario Linares MD Creatinine [Mass/Vol] 0.4 mg/dL Low 0.5-0.9 [facility] Comment on above: Performed By: #### B LAZ, CDP #### [facility] [address] [place] [address] Geology Professor: Rosario Linares MD GFR/1.73 sq M.predicted among non-blacks MDRD (S/P/Bld) [Vol rate/Area] mL/min/{1.73_m2} Normal >60 [facility] Comment on above: Result Comment: These results are not intended for use in patients <18 years of age. eGFR results are calculated without a race factor using the 2020 CKD-EPI equation. Careful clinical correlation is recommended, particularly when comparing to results calculated using previous equations. The CKD-EPI equation is less accurate in patients with extremes of muscle mass, extra-renal metabolism of creatine, excessive creatine ingestion, or following therapy that affects renal tubular secretion. Performed By: #### B LAZ, CDP #### [facility] [address] [place] [address] Geology Professor: Rosario Linares MD Glucose [Mass/Vol] 115 mg/dL High 70-99 [facility] Comment on above: Performed By: #### B LAZ, CDP #### [facility] [address] [place] [address] Geology Professor: Rosario Linares MD Potassium [Moles/Vol] 3.4 mmol/L Low 3.7-5.3 [facility] Comment on above: Performed By: #### B LAZ, CDP #### [facility] [address] [place], [place] 7142583 Geology Professor: Rosario Linares MD Sodium [Moles/Vol] 134 mmol/L Low 135-144 [facility] Comment on above: Performed By: #### B LAZ, CDP #### [facility] [address] [place], [place] [phone] Geology Professor: Rosario Linares MD Urea nitrogen [Mass/Vol] 7 mg/dL Normal 6-20 [facility] Comment on above: Performed By: #### B LAZ, CDP #### [facility] [address] [place] [address] Dr. [place], [place] [phone] Geology Professor: Rosario Linares MD CBC with Diffon 07-26-2023 Abs. Basophil 0.04 k/uL Normal 0.00-0.20 [facility] Comment on above: Performed By: #### B LAZ, CDP #### [facility] [address] [place] [address] [place] [address] Geology Professor: Rosario Linares MD Abs.Imm.Granulocyte 0.07 k/uL Normal 0.00-0.30 [facility] Comment on above: Performed By: #### B LAZ, CDP #### [facility] [address] [place] [address] [place] [address] Geology Professor: Rosario Linares MD Abs.Neutrophil (Seg) 8.51 k/uL High 1.50-8.10 [facility] Comment on above: Performed By: #### B LAZ, CDP #### [facility] [address] [place], [place] 3968183 Geology Professor: Rosario Linares MD Basophils/100 WBC (Bld) 0 % Normal 0-2 [facility] Comment on above: Performed By: #### B LAZ, CDP #### [facility] [address] [place] [address] Dr. [place], [place] [phone] Geology Professor: Rosario Linares MD Eosinophils (Bld) [#/Vol] 0.11 10*3/uL Normal 0.00-0.44 [facility] Comment on above: Performed By: #### B MP, CDP #### [address] [place], [facility] Geology Professor: Rosario Linares MD Eosinophils/100 WBC (Bld) 1 % Normal 1-4 [facility] Comment on above: Performed By: #### B MP, CDP #### [address] [place], [facility] Geology Professor: Rosario Linares MD Erythrocyte distribution width (RBC) [Ratio] 13.0 % Normal 11.8-14.4 [facility] Comment on above: Performed By: #### B MP, CDP #### [address] [place], [facility] Geology Professor: Rosario Linares MD Hematocrit (Bld) [Volume fraction] 36.2 % Low 36.3-47.1 [facility] Comment on above: Performed By: #### B MP, CDP #### [address] [place], [place] 2725383 Geology Professor: Rosario Linares MD Hemoglobin (Bld) [Mass/Vol] 12.2 g/dL Normal 11.9-15.1 [facility] Comment on above: Performed By: #### B MP, CDP #### [address] [place], [place] 7357983 Geology Professor: Rosario Linares MD Immature granulocytes/100 WBC (Bld) 1 % High 0 [facility] Comment on above: Performed By: #### B MP, CDP #### [address] [place], [facility] Geology Professor: Rosario Linares MD Lymphocytes (Bld) [#/Vol] 2.63 10*3/uL Normal 1.10-3.70 [facility] Comment on above: Performed By: #### B MP, CDP #### [facility] [address] [place], [place] 5880583 Geology Professor: Rosario Linares MD Lymphocytes/100 WBC (Bld) 22 % Low 24-43 [facility] Comment on above: Performed By: #### B MP, CDP #### [facility] [address] [place], [place] 4250183 Geology Professor: Rosario Linares MD MCH (RBC) [Entitic mass] 29.8 pg Normal 25.2-33.5 [facility] Comment on above: Performed By: #### B LAZ, CDP #### [address] [place], [facility] ( Geology Professor: Rosario Linares MD MCHC (RBC) [Mass/Vol] 33.7 g/dL Normal 28.4-34.8 [facility] Comment on above: Performed By: #### B LAZ, CDP #### [address] [place] [address] Geology Professor: Rosario Linares MD MCV (RBC) [Entitic vol] 88.5 fL Normal 82.6-102.9 [facility] Comment on above: Performed By: #### B MP, CDP #### [facility] [address] [place] [address] [place] [address] Geology Professor: Rosario Linares MD Monocytes (Bld) [#/Vol] 0.44 10*3/uL Normal 0.10-1.20 [facility] Comment on above: Performed By: #### B LAZ, CDP #### [facility] [address] [place], [place] 1317283 Geology Professor: Rosario Linares MD Monocytes/100 WBC (Bld) 4 % Normal 3-12 [facility] Comment on above: Performed By: #### B LAZ, CDP #### [facility] [address] [place], [place] 4012283 Geology Professor: Rosario Linares MD Neutrophil (Seg) 72 % High 36-65 [facility] Comment on above: Performed By: #### B MP, CDP #### [facility] [address] [place], [place] 9827283 Geology Professor: Rosario Linares MD NRBC Automated 0.0 per 100 WBC Normal 0.0 [facility] Comment on above: Performed By: #### B LAZ, CDP #### [facility] [address] [place], [place] 9640883 Geology Professor: Rosario Linares MD Platelet mean volume (Bld) [Entitic vol] 10.3 fL Normal 8.1-13.5 [facility] Comment on above: Performed By: #### B LAZ, CDP #### [address] [place], [place] 2352083 Geology Professor: Rosario Linares MD Platelets (Bld) [#/Vol] 289 10*3/uL Normal 138-453 [facility] Comment on above: Performed By: #### B LAZ, CDP #### [facility] [address] [place] [address] [place] [address] Geology Professor: Rosario Linares MD RBC (Bld) [#/Vol] 4.09 10*6/uL Normal 3.95-5.11 [facility] Comment on above: Performed By: #### B MP, CDP #### [address] [place], [place] 5190683 Geology Professor: Rosario Linares MD WBC (Bld) [#/Vol] 11.8 10*3/uL High 3.5-11.3 [facility] Comment on above: Performed By: #### B MP, CDP #### [facility] [address] [place] [address] Geology Professor: Rosario Linares MD Troponinon 07-26-2023 Troponin, High Sens 6 ng/L Normal 0-14 [facility] Comment on above: Result Comment: High Sensitivity Troponin values cannot be compared with other Troponin methodologies. Performed By: #### T ROPI #### [facility] [address] [place] [address] Geology Professor: Rosario Linares MD COVID/FLU/RSV RT-PCRon 06-04 SARS-CoV-2 (COVID-19) RNA DEVIN+probe Ql (Unsp spec) Negative [facility] [employer] Other COVID/FLU/RSV RT-PCR Negative [facility] [employer] Other Quick Strepon 06-04-2022 S. pyogenes Org specific cx Ql (Throat) Negative [facility] [employer] Other Quick Strep [facility] [employer] Other CBC AUTO DIFFon 01-24-2022 BASO # 0.1 103/ul Normal 0.0-0.1 [facility] Comment on above: Performed By: #### A FPTET #### [facility] [address] [place] [address] Dr. Belkys Fajardo Basophils/100 WBC (Bld) 0.3 % Normal 0.2-2.0 [facility] Comment on above: Performed By: #### A FPTET #### [facility] [address] [address] [address] Belkys Fajardo EO # 0.1 103/ul Normal 0.0-0.7 [facility] Comment on above: Performed By: #### A FPTET #### [facility] [address] [place] [address] Dr. Belkys Fajardo Eosinophils/100 WBC (Bld) 0.9 % Normal 0.9-7.0 [facility] Comment on above: Performed By: #### A FPTET #### [facility] [address] [address] [address] Belkys Fajardo Erythrocyte distribution width (RBC) [Ratio] 14.0 % Normal 11.0-15.0 [facility] Comment on above: Performed By: #### A FPTET #### [facility] [address] [place] [address] Dr. Belkys Fajardo Hematocrit (Bld) [Volume fraction] 24.8 % Critically low 36.0-48.0 [facility] Comment on above: Performed By: #### A FPTET #### [facility] [address] [place] [address] Dr. Belkys Fajardo Hemoglobin (Bld) [Mass/Vol] 8.2 g/dL Critically low 12.0-16.0 [facility] Comment on above: Performed By: #### A FPTET #### [facility] [address] [place] [address] Dr. Belkys Fajardo IG # 0.23 10e3/ul Critically high 0.00-0.03 [facility] Comment on above: Performed By: #### A FPTET #### [facility] [address] [place] [address] Dr. Belkys Fajardo IG % 1.5 % Critically high 0.0-0.5 [facility] Comment on above: Performed By: #### A FPTET #### [facility] [address] [place] [address] Dr. Belkys Fajardo LYMPH # 2.4 103/ul Normal 1.2-3.8 [facility] Comment on above: Performed By: #### A FPTET #### [facility] [address] [place] [address] Dr. Belkys Fajardo Lymphocytes/100 WBC (Bld) 15.5 % Critically low 20.5-60.0 [facility] Comment on above: Performed By: #### A FPTET #### [facility] [address] [place] [address] Dr. Belkys Fajardo MANUAL DIFF REQ NO Normal [facility] Comment on above: Performed By: #### A FPTET #### [facility] [address] [place] [address] Dr. Belkys Fajardo MCH (RBC) [Entitic mass] 28.5 pg Normal 26.7-34.0 [facility] Comment on above: Performed By: #### A FPTET #### [facility] [address] [place] [address] Dr. Belkys Fajardo MCHC (RBC) [Mass/Vol] 33.1 g/dL Normal 29.9-35.2 [facility] Comment on above: Performed By: #### A FPTET #### [facility] [address] [place] [address] Dr. Belkys Fajardo MCV (RBC) [Entitic vol] 86.1 fL Normal 81.0-99.0 [facility] Comment on above: Performed By: #### A FPTET #### [facility] [address] [place] [address] Dr. Belkys Fajardo MONO # 0.8 103/ul Normal 0.3-0.8 [facility] Comment on above: Performed By: #### A FPTET #### [facility] [address] [place] [address] Dr. Belkys Fajardo Monocytes/100 WBC (Bld) 5.4 % Normal 1.7-12.0 [facility] Comment on above: Performed By: #### A FPTET #### [facility] [address] [place] [address] Dr. Belkys Fajardo NEUT # 11.6 103/ul Critically high 1.4-6.5 [facility] Comment on above: Performed By: #### A FPTET #### [facility] [address] [place] [address] Dr. Belkys Fajardo Neutrophils/100 WBC (Bld) 76.4 % Critically high 43.0-75.0 [facility] Comment on above: Performed By: #### A FPTET #### [facility] [address] [place] [address] Dr. Belkys Fajardo Platelet mean volume (Bld) [Entitic vol] 10.2 fL Normal 9.5-13.5 [facility] Comment on above: Performed By: #### A FPTET #### [facility] [address] [place] [address] Dr. Belkys Fajardo PLT 235 103/ul Normal 150-[address] [facility] Comment on above: Performed By: #### A FPTET #### [facility] [address] [place] [address] Dr. Belkys Fajardo RBC 2.88 106/ul Critically low 4.20-5.40 [facility] Comment on above: Performed By: #### A FPTET #### [facility] [address] [place] [address] Dr. Belkys Fajardo WBC 15.2 103/ul Critically high 4.0-11.0 [facility] Comment on above: Performed By: #### A FPTET #### [facility] [address] [place] [address] Dr. Belkys Fajardo CBC AUTO DIFFon 01-23-2022 BASO # 0.1 103/ul Normal 0.0-0.1 [facility] Comment on above: Performed By: #### A FPTET #### [facility] [address] [place] [address] Dr. Belkys Fajardo Basophils/100 WBC (Bld) 0.4 % Normal 0.2-2.[address] [facility] Comment on above: Performed By: #### A FPTET #### [facility] [address] [place] [address] Dr. Belkys Fajardo EO # 0.1 103/ul Normal 0.0-0.[address] [facility] Comment on above: Performed By: #### A FPTET #### [facility] [address] [place] [address] Dr. Belkys Fajardo Eosinophils/100 WBC (Bld) 0.5 % Critically low 0.9-7.0 [facility] Comment on above: Performed By: #### A FPTET #### [facility] [address] [place] [address] Dr. Belkys Fajardo Erythrocyte distribution width (RBC) [Ratio] 13.8 % Normal 11.0-15.0 [facility] Comment on above: Performed By: #### A FPTET #### [facility] [address] [place] [address] Dr. Belkys Fajardo Hematocrit (Bld) [Volume fraction] 32.5 % Critically low 36.0-48.0 [facility] Comment on above: Performed By: #### A FPTET #### [facility] [address] [place] [address] Dr. Belkys Fajardo Hemoglobin (Bld) [Mass/Vol] 11.0 g/dL Critically low 12.0-16.0 [facility] Comment on above: Performed By: #### A FPTET #### [facility] [address] [place] [address] Dr. Belkys Fajardo IG # 0.31 10e3/ul Critically high 0.00-0.03 [facility] Comment on above: Performed By: #### A FPTET #### [facility] [address] [place] [address] Dr. Belkys Fajardo IG % 1.6 % Critically high 0.0-0.5 [facility] Comment on above: Performed By: #### A FPTET #### [facility] [address] [place] [address] Dr. Belkys Fajardo LYMPH # 2.0 103/ul Normal 1.2-3.[address] [facility] Comment on above: Performed By: #### A FPTET #### [facility] [address] [place] [address] Dr. Belkys Fajardo Lymphocytes/100 WBC (Bld) 10.2 % Critically low 20.5-60.0 [facility] Comment on above: Performed By: #### A FPTET #### [facility] [address] [place] [address] Dr. Belkys Fajardo MANUAL DIFF REQ NO Normal [facility] Comment on above: Performed By: #### A FPTET #### [facility] [address] [address] [address] Belkys Fajardo MCH (RBC) [Entitic mass] 28.4 pg Normal 26.7-34.[address] [facility] Comment on above: Performed By: #### A FPTET #### [facility] [address] [place] [address] Dr. Belkys Fajardo MCHC (RBC) [Mass/Vol] 33.8 g/dL Normal 29.9-35.[address] [facility] Comment on above: Performed By: #### A FPTET #### [facility] [address] [place] [address] Dr. Belkys Fajardo MCV (RBC) [Entitic vol] 83.8 fL Normal 81.0-99.[address] [facility] Comment on above: Performed By: #### A FPTET #### [facility] [address] [place] [address] Dr. Belkys Fajardo MONO # 0.9 103/ul Critically high 0.3-0.8 [facility] Comment on above: Performed By: #### A FPTET #### [facility] [address] [place] [address] Dr. Belkys Fajardo Monocytes/100 WBC (Bld) 4.8 % Normal 1.7-12.0 [facility] Comment on above: Performed By: #### A FPTET #### [facility] [address] [place] [address] Dr. Belkys Fajardo NEUT # 16.0 103/ul Critically high 1.4-6.5 [facility] Comment on above: Performed By: #### A FPTET #### [facility] [address] [place] [address] Dr. Belkys Fajardo Neutrophils/100 WBC (Bld) 82.5 % Critically high 43.0-75.[address] [facility] Comment on above: Performed By: #### A FPTET #### [facility] [address] [place] [address] Dr. Belkys Fajardo Platelet mean volume (Bld) [Entitic vol] 10.1 fL Normal 9.5-13.[address] [facility] Comment on above: Performed By: #### A FPTET #### [facility] [address] [place], [place] [address] Dr. Belkys Fajardo PLT 301 103/ul Normal 150-[address] [facility] Comment on above: Performed By: #### A FPTET #### [facility] [address] [place], [place] [address] Dr. Belkys Fajardo RBC 3.88 106/ul Critically low 4.20-5.40 [facility] Comment on above: Performed By: #### A FPTET #### [facility] [address] [place], [place] [address] Dr. Belkys Fajardo WBC 19.3 103/ul Critically high 4.0-11.0 [facility] Comment on above: Performed By: #### A FPTET #### [facility] [address] [address] [address] Belkys Fajrado CULTURE URINEon 01-23-2022 CULTURE URINE Culture Observations : LIGHT GROWTH OF MIXED GENITAL HEYDI. NO POTENTIAL PATHOGENS SEEN. Normal [facility] Comment on above: Performed By: #### U ACSIND, UMICRO #### [facility] [address] [address] [address] Belkys Fajardo [facility]27 SARS-CoV-2 (COVID-19) RNA DEVIN+probe Ql (Unsp spec) Not detected Normal NOT DETECTED [facility] Comment on above: Result Comment: When [...] for this test is supported by the [place] of Health and Human Service's declaration that [...] Performed By: #### C VDTBH #### [facility] [address] [place] [address] Dr. Belkys Fajardo DRUG SCREEN RAPID (URINE)on 01-23-2022 AMP Negative Normal NEGATIVE [facility] Comment on above: Performed By: #### A FPTET #### [facility] [address] [place] [address] Dr. Belkys Fajardo BAR Negative Normal NEGATIVE [facility] Comment on above: Performed By: #### A FPTET #### [facility] [address] [place] [address] Dr. Belkys Fajardo BUP Negative Normal NEGATIVE [facility] Comment on above: Performed By: #### A FPTET #### [facility] [address] [place] [address] Dr. Belkys Fajardo BZO Negative Normal NEGATIVE [facility] Comment on above: Performed By: #### A FPTET #### [facility] [address] [place] [address] Dr. Belkys Fajardo VALENCIA Negative Normal NEGATIVE [facility] Comment on above: Performed By: #### A FPTET #### [facility] [address] [place] [address] Dr. Belkys Fajardo CUT-OFFS SEE BELOW Normal [facility] Comment on above: Result Comment: AMP [...] Performed By: #### A FPTET #### [facility] [address] [place] [address] Dr. Belkys Fajardo DRUG CUT HEADER DRUG CLASS TEST SYSTEM CUT-OFF CONCENTRATIONS ARE FOLLOWS: Normal [facility] Comment on above: Performed By: #### A FPTET #### [facility] [address] [place] [address] Dr. Belkys Fajardo mAMP Negative Normal NEGATIVE [facility] Comment on above: Performed By: #### A FPTET #### [facility] [address] [place] [address] Dr. Belkys Fajardo MTD Negative Normal NEGATIVE [facility] Comment on above: Performed By: #### A FPTET #### [facility] [address] [place] [address] Dr. Belkys Fajardo OPI Negative Normal NEGATIVE [facility] Comment on above: Performed By: #### A FPTET #### [facility] [address] [place] [address] Dr. Belkys Fajardo OXY Negative Normal NEGATIVE [facility] Comment on above: Performed By: #### A FPTET #### [facility] [address] [address] [address] Belkys Fajardo PCP Negative Normal NEGATIVE [facility] Comment on above: Performed By: #### A FPTET #### [facility] [address] [place] [address] Dr. Belkys Fajardo PPX Negative Normal NEGATIVE [facility] Comment on above: Performed By: #### A FPTET #### [facility] [address] [place] [address] Dr. Belkys Fajardo TCA Negative Normal NEGATIVE [facility] Comment on above: Performed By: #### A FPTET #### [facility] [address] [place] [address] Dr. Belkys Fajardo THC Negative Normal NEGATIVE [facility] Comment on above: Performed By: #### A FPTET #### [facility] [address] [place] [address] Dr. Belkys Fajardo TYPE AND SCREENon 01-23-2022 TYPE AND SCREEN Negative Normal [facility] Comment on above: Performed By: #### U ACSIND, UMICRO #### [facility] [address] [address] [address] Belkys Fajardo UA (CLEAN/CATCH) COOK HELPER JUICE/MICRO I F IND.on 01-23-2022 Bilirubin Ql (U) Negative Normal NEGATIVE [facility] Comment on above: Performed By: #### U ACSIND, UMICRO #### [facility] [address] [address] [address] Belkys Fajardo Clarity (U) CLEAR Normal CLEAR [facility] Comment on above: Performed By: #### U ACSIND, UMICRO #### [facility] [address] [place] [address] Dr. Belkys Fajardo Color (U) LT. YELLOW Normal YELLOW [facility] Comment on above: Performed By: #### U ACSIND, UMICRO #### [facility] [address] [place] [address] Dr. Belkys Fajardo Glucose Ql (U) Negative Normal NEGATIVE [facility] Comment on above: Performed By: #### U ACSIND, UMICRO #### [facility] [address] [address] [address] Belkys Fajardo Hemoglobin Ql (U) TRACE-INTACT Abnormal NEGATIVE [facility] Comment on above: Performed By: #### U ACSIND, UMICRO #### [facility] [address] [place] [address] Dr. Belkys Fajardo Ketones Ql (U) Negative Normal NEGATIVE [facility] Comment on above: Performed By: #### U ACSIND, UMICRO #### [facility] [address] [address] [address] Belkys Fajardo LEUKOCYTES MODERATE Abnormal NEGATIVE [facility] Comment on above: Performed By: #### U ACSIND, UMICRO #### [facility] [address] [place] [address] Dr. Belkys Fajardo Nitrite Ql (U) Negative Normal NEGATIVE [facility] Comment on above: Performed By: #### U ACSIND, UMICRO #### [facility] [address] [address] [address] Belkys Fajardo pH (U) 6.5 [pH] Normal 5-[address] [facility] Comment on above: Performed By: #### U ACSTAMELA, UMICRO #### [facility] [address] [address] [address] Belkys Fajardo SPEC GRAVITY 1.015 Normal 1.005-<=1.025 [facility] Comment on above: Performed By: #### U ACSTAMELA, UMICRO #### [facility] [address] [address] [address] Belkys Fajardo UA PROTEIN Negative Normal NEGATIVE/ TRACE [facility] Comment on above: Performed By: #### U ACSTAMELA UMICRO #### [facility] [address] [place] [address] Dr. Belkys Fajardo UR MICRO IND INDICATED Normal [facility] Comment on above: Performed By: #### U ACSTAMELA UMICRO #### [facility] [address] [place] [address] Dr. Belkys Fajardo Urobilinogen Qn (U) 0.2 {Jakob'U}/dL Normal 0.2 - 1. 0 [facility] Comment on above: Performed By: #### U ACSTAMELA UMICRO #### [facility] [address] [place] [address] Dr. Belkys Fajardo URINE MICROSCOPIC ONLYon BACTERIA SMALL Abnormal NONE SEEN [facility] Comment on above: Performed By: #### U ACSTAMELA UMICRO #### [facility] [address] [place] [address] Dr. Belkys Fajardo Bacteria identified Cx Nom (U) INDICATED Normal [facility] Comment on above: Performed By: #### U ACSTAMELA UMICRO #### [facility] [address] [place] [address] Dr. Belkys Fajardo CAST NONE SEEN Normal NONE SEEN [facility] Comment on above: Performed By: #### U ACSTAMELA UMICRO #### [facility] [address] [place] [address] Dr. Belkys Fajardo Crystals LM Nom (Urine sed) NONE SEEN Normal NONE SEEN [facility] Comment on above: Performed By: #### U ACSIND, UMICRO #### [facility] [address] [address] [address] Belkys Fajardo Epithelial cells LM Ql (Urine sed) FEW Abnormal NONE SEEN /RARE [facility] Comment on above: Performed By: #### U ACSIND, UMICRO #### [facility] [address] [address] [address] Belkys Fajardo MUCOUS NONE SEEN Normal NONE SEEN [facility] Comment on above: Performed By: #### U ACSIND, UMICRO #### [facility] [address] [address] [address] Belkys Fajardo RBC NONE SEEN Abnormal 0-[address] [facility] Comment on above: Performed By: #### U ACSIND, UMICRO #### [facility] [address] [address] [address] Belkys Fajardo WBC 5-10 Abnormal NONE SEEN [facility] Comment on above: Performed By: #### U ACSIND, UMICRO #### [facility] [address] [place] [address] Dr. Belkys Fajardo US PREG GROWTHon 01-12-2022 [...] BLACK Date: 2022-01-12 21:[address] [facility] GROUP B STREP CULTUREon 12-26 S. agalactiae Ag Ql (Unsp spec) Culture Observations: NEGATIVE FOR GROUP B STREPTOCOCCUS. Normal [facility] Comment on above: Performed By: #### G BSCX #### [facility] [address] [place] [address] Dr. Belkys Fajardo GTT 3 HR PREGon 12-11-2021 Glucose [Mass/Vol] 91 mg/dL Normal 74-106 [facility] Comment on above: Performed By: #### G TT3P #### [facility] [address] [place] [address] Dr. Belkys Fajardo Glucose [Mass/Vol] 172 mg/dL Normal [facility] Comment on above: Performed By: #### G TT3P #### [facility] [address] [place] [address] Dr. Belkys Fajardo Glucose [Mass/Vol] 148 mg/dL Normal [facility] Comment on above: Performed By: #### G TT3P #### [facility] [address] [place] [address] Dr. Belkys Fajardo Glucose [Mass/Vol] 58 mg/dL Normal [facility] Comment on above: Performed By: #### G TT3P #### [facility] [address] [place] [address] Dr. Belkys Fajardo US PREG GROWTHon 12-08-2021 [...] YOGI BLACK Date: 2021-12-08 16:[address] [facility] GLUCOSE - 1HRon 11-12-2021 Glucose [Mass/Vol] 143 mg/dL Critically high 74-[address] [facility] Comment on above: Performed By: #### U ACSIND, UMICRO #### [facility] [address] [address] [address] Belkys Fajardo HEMOGRAM AND PLATELon 2021 Hematocrit (Bld) [Volume fraction] 31.7 % Critically low 36.0-48.0 [facility] Comment on above: Performed By: #### A FPTET #### [facility] [address] [place] [address] Dr. Belkys Fajardo Hemoglobin (Bld) [Mass/Vol] 10.4 g/dL Critically low 12.0-16.[address] [facility] Comment on above: Performed By: #### A FPTET #### [facility] [address] [place] [address] Dr. Belkys Fajardo MCH (RBC) [Entitic mass] 28.8 pg Normal 26.7-34.0 [facility] Comment on above: Performed By: #### A FPTET #### [facility] [address] [place] [address] Dr. Belkys Fajardo MCHC (RBC) [Mass/Vol] 32.8 g/dL Normal 29.9-35.[address] [facility] Comment on above: Performed By: #### A FPTET #### [facility] [address] [place] [address] Dr. Belyks Fajardo MCV (RBC) [Entitic vol] 87.8 fL Normal 81.0-99.0 [facility] Comment on above: Performed By: #### A FPTET #### [facility] [address] [address] [address] Belkys Fajardo PLT 261 103/ul Normal 150-450 [facility] Comment on above: Performed By: #### A FPTET #### [facility] [address] [address] [address] Belkys Fajardo RBC 3.61 106/ul Critically low 4.20-5.40 [facility] Comment on above: Performed By: #### A FPTET #### [facility] [address] [address] [address] Belkys Fajardo WBC 11.5 103/ul Critically high 4.0-11.0 [facility] Comment on above: Performed By: #### A FPTET #### [facility] [address] [address] [address] Belkys Fajardo US PREG PLACENTAon 2 [...] by: YOGI BLACK Date: 2021-11-10 21:07 Normal [facility] US PREG PLACENTAon 2 US PREG PLACENTA EXAMINATION: US PREG PLACENTA HISTORY: Low lying placenta COMPARISON: Ultrasound anatomy 09/16/2021 FINDINGS: PLACENTA: Posterior with lower margin 2.5 cm from os. CERVIX LENGTH: 4.4 cm, closed. HEART RATE: 157 bpm OTHER: None. IMPRESSION: 1. Low-lying posterior placenta; no appreciable change compared to prior study. Electronically authenticated by: YOGI BLACK Date: 2021-10-14 19:56 Normal [facility] US PREG ANATOMY SINGLEon US PREG ANATOMY [...] BLACK Date: 2021-09-16 16:[address] [facility] AFP TETRA PROFILE (MATERNAL) on 09-06-2021 AFP MoM 0.[address] [facility] Comment on above: Performed By: #### A FPTET #### [facility] [address] [address] [address] Belkys Fajardo AFP Value 39.7 ng/mL Normal [facility] Comment on above: Performed By: #### A FPTET #### [facility] [address] [address] [address] Belkys Fajardo Comment Comment Normal [facility] Comment on above: Result Comment: eGremias Greer, Ph.D., [facility] Director . References: [...] considered Investigational . For further inquiries contact [facility] at [phone]. Performed By: #### A FPTET #### [facility] [address] [place] [address] Dr. Belkys Fajardo MONIE MoM 0.77 Normal [facility] Comment on above: Performed By: #### A FPTET #### [facility] [address] [place] [address] Dr. Belkys Fajardo MONIE Value 113.50 pg/mL Normal [facility] Comment on above: Performed By: #### A FPTET #### [facility] [address] [place] [address] Dr. Belkys Fajardo DSR (By Age) 1 [place] 765 Normal [facility] Comment on above: Performed By: #### A FPTET #### [facility] [address] [place] [address] Dr. Belkys Fajardo DSR (Second Trimester) 1 [place] [address] [facility] Comment on above: Performed By: #### A FPTET #### [facility] [address] [place] [address] Dr. Belkys Gilliland [age] on Collection Date 20.7 WEE[age] Normal [facility] Comment on above: Performed By: #### A FPTET #### [facility] [address] [place] [address] Dr. Belkys Pablo. Age Based On LMP Normal [facility] Comment on above: Result Comment: 03/30 Performed By: #### A FPTET #### [facility] [address] [place] [address] Dr. Belkys Fajardo hCG MoM 0.78 Normal [facility] Comment on above: Performed By: #### A FPTET #### [facility] [address] [place] [address] [place] [address] m[IU]/mL Normal [facility] Comment on above: Performed By: #### A FPTET #### [facility] [address] [place] [address] Dr. Belkys Fajardo Insulin Dep Diabetes No Normal [facility] Comment on above: Performed By: #### A FPTET #### [facility] [address] [place] [address] Dr. Belkys Fajardo Interpretation Comment Normal [facility] Comment on above: Result Comment: Inte [...] identifies 60% of Trisomy 18 pregnancies. The [employer] recommends amniocentesis be offered to women age 35 and older. Recalculations are not recommended when gestational dating by LMP and ultrasound are within 10 days. Performed By: #### A FPTET #### [facility] [address] [place] [address] Dr. Belkys Fajardo [age] Normal [facility] Comment on above: Performed By: #### A FPTET #### [facility] [address] [place] [address] Dr. Belkys Fajardo Multiple Gestation No Normal [facility] Comment on above: Performed By: #### A FPTET #### [facility] [address] [place] [address] Dr. Belkys Fajardo OSBR Risk 1 [place] [id number] [facility] Comment on above: Performed By: #### A FPTET #### [facility] [address] [place] [address] Dr. Belkys Fajardo PDF . Normal [facility] Comment on above: Performed By: #### A FPTET #### [facility] [address] [place] [address] Dr. Belkys Fajardo Race Normal [facility] Comment on above: Performed By: #### A FPTET #### [facility] [address] [address] [address] Belkys Fajardo Results Report Normal [facility] Comment on above: Performed By: #### A FPTET #### [facility] [address] [place] [address] Dr. Belkys Fajardo T18 (By Age) 1:2981 Normal [facility] Comment on above: Performed By: #### A FPTET #### [facility] [address] [address] [address] Belkys Fajardo T18 Risk Not increased Normal [facility] Comment on above: Performed By: #### A FPTET #### [facility] [address] [place] [address] Dr. Belkys Fajardo Test Results: Negative Normal [facility] Comment on above: Performed By: #### A FPTET #### [facility] [address] [address] [address] Belkys Fajardo uE3 MoM 1.43 [facility] Comment on above: Performed By: #### A FPTET #### [facility] [address] [address] [address] Belkys Fajardo uE3 Value 2.26 ng/mL [facility] Comment on above: Performed By: #### A FPTET #### [facility] [address] [place] [address] Dr. Belkys Fajardo PAP ACOG PANEL 2: 21 to 29on 08-24-2021 . . Normal [facility] Comment on above: Result Comment: Perf ormed at: BA Performed By: #### [id number] #### [facility] [address] [place] [address] Dr. Belkys Fajardo Age Gdln ACOG Testing - [facility] Comment on above: Performed By: #### [id number] #### [facility] [address] [place] [address] Dr. Belkys Fajardo DIAGNOSIS: Comment Normal [facility] Comment on above: Result Comment: NEGA TIVE FOR INTRAEPITHELIAL LESION OR MALIGNANCY. Performed at: BA Performed By: #### [id number] #### [facility] [address] [place] [address] Dr. Belkys Fajardo Methodology: Comment Normal [facility] Comment on above: Result Comment: This liquid based ThinPrep(R) pap test was screened with the use of an image guided system. Performed at: WB Performed By: #### [id number] #### [facility] [address] [place] [address] Dr. Belkys Fajardo Note: Comment Normal [facility] Comment on above: Result Comment: The Pap smear is a screening test designed to aid in the detection of premalignant and malignant conditions of the uterine cervix. It is not a diagnostic procedure and should not be used as the sole means of detecting cervical cancer. Both false-positive and false-negative reports do occur. . Performed at: WB Performed By: #### [id number] #### [facility] [address] [place] [address] Dr. Belkys Fajardo Performed by: Comment Normal [facility] Comment on above: Result Comment: Vicky Avila, Senior Technical Support Engineer (ASCP) Performed at: BA Performed By: #### [id number] #### [facility] [address] [place] [address] Dr. Belkys Fajardo Reflex Criteria: Comment Normal [facility] Comment on above: Result Comment: The HPV DNA reflex criteria were not met with this specimen result therefore, no HPV testing was performed. . Performed at: BA Performed By: #### [id number] #### [facility] [address] [place] [address] Dr. Belkys Fajardo Specimen adequacy: Comment Normal [facility] Comment on above: Result Comment: Sati sfactory for evaluation. No endocervical component is identified. Performed at: BA Performed By: #### [id number] #### [facility] [address] [place] [address] Dr. Belkys Fajardo CBC AUTO DIFFon 08-22-2021 BASO # 0.0 103/ul Normal 0.0-0.1 [facility] Comment on above: Performed By: #### C BC #### [facility] [address] [address] [address] Belkys Fajardo Basophils/100 WBC (Bld) 0.2 % Normal 0.2-2.0 [facility] Comment on above: Performed By: #### C BC #### [facility] [address] [address] [address] Belkys Fajardo EO # 0.2 103/ul Normal 0.0-0.[address] [facility] Comment on above: Performed By: #### C BC #### [facility] [address] [address] [address] Belkys Fajardo Eosinophils/100 WBC (Bld) 1.9 % Normal 0.9-7.0 [facility] Comment on above: Performed By: #### C BC #### [facility] [address] [address] [address] Belkys Fajardo Erythrocyte distribution width (RBC) [Ratio] 13.4 % Normal 11.0-15.0 [facility] Comment on above: Performed By: #### C BC #### [facility] [address] [address] [address] Belkys Fajardo Hematocrit (Bld) [Volume fraction] 32.7 % Critically low 36.0-48.0 [facility] Comment on above: Performed By: #### C BC #### [facility] [address] [address] [address] Belkys Fajardo Hemoglobin (Bld) [Mass/Vol] 11.0 g/dL Critically low 12.0-16.0 [facility] Comment on above: Performed By: #### C BC #### [facility] [address] [address] [address] Belkys Fajardo IG # 0.05 10e3/ul Critically high 0.00-0.03 [facility] Comment on above: Performed By: #### C BC #### [facility] [address] [address] [address] Belkys Fajardo IG % 0.5 % Normal 0.0-0.5 [facility] Comment on above: Performed By: #### C BC #### [facility] [address] [place] [address] Dr. Belksy Fajardo LYMPH # 2.3 103/ul Normal 1.2-3.8 [facility] Comment on above: Performed By: #### C BC #### [facility] [address] [place] [address] Dr. Belkys Fajardo Lymphocytes/100 WBC (Bld) 22.4 % Normal 20.5-60.0 [facility] Comment on above: Performed By: #### C BC #### [facility] [address] [place] [address] Dr. Belkys Fajardo MANUAL DIFF REQ NO Normal [facility] Comment on above: Performed By: #### C BC #### [facility] [address] [place] [address] Dr. Belkys Fajardo MCH (RBC) [Entitic mass] 29.3 pg Normal 26.7-34.0 [facility] Comment on above: Performed By: #### C BC #### [facility] [address] [place] [address] Dr. Belkys Fajardo MCHC (RBC) [Mass/Vol] 33.6 g/dL Normal 29.9-35.2 [facility] Comment on above: Performed By: #### C BC #### [facility] [address] [place] [address] Dr. Belkys Fajardo MCV (RBC) [Entitic vol] 87.2 fL Normal 81.0-99.0 [facility] Comment on above: Performed By: #### C BC #### [facility] [address] [place] [address] Dr. Belkys Fajardo MONO # 0.6 103/ul Normal 0.3-0.[address] [facility] Comment on above: Performed By: #### C BC #### [facility] [address] [place] [address] Dr. Belkys Fajardo Monocytes/100 WBC (Bld) 5.5 % Normal 1.7-12.0 [facility] Comment on above: Performed By: #### C BC #### [facility] [address] [place] [address] Dr. Belkys Fajardo NEUT # 7.1 103/ul Critically high 1.4-6.5 [facility] Comment on above: Performed By: #### C BC #### [facility] [address] [place] [address] Dr. Belkys Fajardo Neutrophils/100 WBC (Bld) 69.5 % Normal 43.0-75.[address] [facility] Comment on above: Performed By: #### C BC #### [facility] [address] [place] [address] Dr. Belkys Fajardo Platelet mean volume (Bld) [Entitic vol] 10.3 fL Normal 9.5-13.5 [facility] Comment on above: Performed By: #### C BC #### [facility] [address] [place] [address] Dr. Belkys Fajardo PLT 258 103/ul Normal 150-[address] [facility] Comment on above: Performed By: #### C BC #### [facility] [address] [place] [address] Dr. Belkys Fajardo RBC 3.75 106/ul Critically low 4.20-5.40 [facility] Comment on above: Performed By: #### C BC #### [facility] [address] [place] [address] Dr. Belkys Fajardo WBC 10.2 103/ul Normal 4.0-11.[address] [facility] Comment on above: Performed By: #### C BC #### [facility] [address] [place] [address] Dr. Belkys Fajardo CTA CHEST WO W CONon 05-28-2 022 CTA CHEST WO W CON CTA [...] ROSARIO HERNANDEZ Date: 2021-08-22 08:[address] [facility] Covid-19 PCR (CVDTBH)on 07-27 SARS-CoV-2 (COVID-19) RNA DEVIN+probe Ql (Unsp spec) Not detected Normal NOT DETECTED [facility] Comment on above: Result Comment: When [...] for this test is supported by the [place] of Health and Human Service's declaration that [...] Performed By: #### C VDTBH #### [facility] [address] [place] [address] [id number] [address] Belkys Fajardo PROF 14(COMP METB)on 022 Albumin [Mass/Vol] 3.0 g/dL Critically low 3.4-5.0 [facility] Comment on above: Performed By: #### A FPTET #### [facility] [address] [place] [address] Dr. Belkys Fajardo Albumin/Globulin [Mass ratio] 0.8 {ratio} Normal [facility] Comment on above: Performed By: #### A FPTET #### [facility] [address] [place] [address] Dr. Belkys Fajardo ALP [Catalytic activity/Vol] 52 U/L Normal 46-116 [facility] Comment on above: Performed By: #### A FPTET #### [facility] [address] [place] [address] Dr. Belkys Fajardo ALT [Catalytic activity/Vol] 32 U/L Normal 14-59 [facility] Comment on above: Performed By: #### A FPTET #### [facility] [address] [place] [address] Dr. Belkys Fajardo Anion gap [Moles/Vol] 12.8 mmol/L Normal [facility] Comment on above: Performed By: #### A FPTET #### [facility] [address] [place] [address] Dr. Belkys Fajardo AST [Catalytic activity/Vol] 17 U/L Normal 15-37 [facility] Comment on above: Performed By: #### A FPTET #### [facility] [address] [place] [address] Dr. Belkys Fajardo Bilirubin [Mass/Vol] 0.3 mg/dL Normal 0.2-1.0 [facility] Comment on above: Performed By: #### A FPTET #### [facility] [address] [place] [address] Dr. Belkys Fajardo Calcium [Mass/Vol] 8.5 mg/dL Normal 8.5-10.1 [facility] Comment on above: Performed By: #### A FPTET #### [facility] [address] [place] [address] Dr. Belkys Fajardo Chloride [Moles/Vol] 103 mmol/L Normal 98-[address] [facility] Comment on above: Performed By: #### A FPTET #### [facility] [address] [place] [address] Dr. Belkys Fajardo CO2 [Moles/Vol] 24.7 mmol/L Normal 21.0-32.0 [facility] Comment on above: Performed By: #### A FPTET #### [facility] [address] [place] [address] Dr. Belkys Fajardo Creatinine [Mass/Vol] 0.46 mg/dL Critically low 0.55-1.[address] [facility] Comment on above: Performed By: #### A FPTET #### [facility] [address] [place] [address] Dr. Belkys Fajardo EGFR-AF GABONESE >60 Normal >=60 [facility] Comment on above: Performed By: #### A FPTET #### [facility] [address] [place] [address] Dr. Belkys Fajardo EGFR-NON AF GABONESE >60 Normal >=[address] [facility] Comment on above: Performed By: #### A FPTET #### [facility] [address] [place] [address] Dr. Belkys Fajardo Globulin (S) [Mass/Vol] 3.7 g/dL Normal [facility] Comment on above: Performed By: #### A FPTET #### [facility] [address] [place] [address] Dr. Belkys Fajardo Glucose [Mass/Vol] 84 mg/dL Normal 74-106 [facility] Comment on above: Performed By: #### A FPTET #### [facility] [address] [place] [address] Dr. Belkys Fajardo Potassium [Moles/Vol] 3.5 mmol/L Normal 3.5-5.[address] [facility] Comment on above: Performed By: #### A FPTET #### [facility] [address] [place] [address] Dr. Belkys Fajardo Protein [Mass/Vol] 6.7 g/dL Normal 6.4-8.2 [facility] Comment on above: Performed By: #### A FPTET #### [facility] [address] [place] [address] Dr. Belkys Fajardo Sodium [Moles/Vol] 137 mmol/L Normal 136-145 [facility] Comment on above: Performed By: #### A FPTET #### [facility] [address] [place] [address] Dr. Belkys Fajardo Urea nitrogen [Mass/Vol] 7.0 mg/dL Normal 7.0-18.0 [facility] Comment on above: Performed By: #### A FPTET #### [facility] [address] [place] [address] Dr. Belkys Fajardo Urea nitrogen/Creatinine [Mass ratio] 15.2 mg/mg Normal [facility] Comment on above: Performed By: #### A FPTET #### [facility] [address] [place] [address] Dr. Belkys Fajardo TROPONIN, HIGH SENSITIVITYon 08-22-2021 HSTROP <4.0 Normal 4.0-51.3 [facility] Comment on above: Result Comment: CUT- OFF POINTS HAVE BEEN ESTABLISHED BASED ON THE FOURTH UNIVERSAL DEFINITIONS OF MYOCARDIAL INFARCTION. THE UPPER REFERENCE LIMIT (URL) OF TROPONIN, DEFINED THE 99TH PERCENTILE OF cTnI DISTRIBUTION IN A REFERENCE POPULATION, HAS BEEN CONFIRMED THE DECISION THRESHOLD FOR [place] DIAGNOSIS. Performed By: #### A FPTET #### [facility] [address] [place] [address] Dr. Belkys Fajardo CHLAMYDIA/GONOCOCCUS DEVIN (SW AB/URINE/PAPon 08-21-2021 Chlamydia trachomatis, DEVIN Negative Normal Negative [facility] Comment on above: Performed By: #### C T/NGNA #### [facility] [address] [place] [address] Dr. Belkys Fajardo Neisseria gonorrhoeae, DEVIN Negative Normal Negative [facility] Comment on above: Performed By: #### C T/NGNA #### [facility] [address] [place], [place] [id number] Dr. Belkys Fajardo VAGINITIS/VAGINOSIS DNA PROB Gab 08-20-2021 Lani species Negative Normal Negative [facility] Comment on above: Performed By: #### A FPTET #### [facility] [address] [address] [address] Belkys Fajardo Gardnerella vaginalis Negative Normal Negative [facility] Comment on above: Performed By: #### A FPTET #### [facility] [address] [address] [address] Belkys Fajardo Trichomonas vaginalis Negative Normal Negative [facility] Comment on above: Performed By: #### A FPTET #### [facility] [address] [address] [address] Belkys Fajardo Social History Date Type Detail Facility Start: 03-09-2021 Alcohol intake Current drinke r of alcohol (finding) [employer] Phone: Start: 03-09-2021 Alcohol intake [employer] Phone: Start: 08-29-2014 Tobacco smoking status NHIS Never smoked tobacco [employer] Phone: Start: 08-29-2014 Tobacco use and exposure Smokeless tobacco non-user [employer] Phone: Start: 08-29-2014 History SDOH Alcohol Comment occ. [employer] Phone: Start: 1990 Sex Assigned At Not on file M [facility] of [facility] [employer] Phone: Sex Assigned At Sex Assigned At Bir th [email or web address] Other Vital Signs Date Time Vital Sign Value Performing Clinician Facility 07-28-2022 10:15-0400 Body height 170.18 cm [employer] Other [email or web address] Other 07-28-2022 10:15-0400 Body mass index (BMI) [Ratio] 27.81 kg/m2 [employer] Other [email or web address] Other 07-28-2022 10:15-0400 Body weight 80.56 kg Nick Cuipo Other [email or web address] Other 07-28-2022 10:15-0400 Diastolic blood pressure 75 mm[Hg] Nick Ball Other [email or web address] Other 07-28-2022 10:15-0400 Systolic blood pressure 112 mm[Hg] Nick Ball Other [email or web address] Other 06-04-2022 17:00-0500 Body height 170.18 cm Cristal Guidry Other [email or web address] Other 06-04-2022 17:00-0500 Body mass index (BMI) [Ratio] 28.19 kg/m2 Cristal Guidry Other [email or web address] Other 06-04-2022 17:00-0500 Body temperature 97.4 [degF] Cristal Guidry Other [email or web address] Other 06-04-2022 17:00-0500 Body weight 81.65 kg Cristal Chao Other [email or web address] Other 06-04-2022 17:00-0500 Respiratory rate 18 /min Cristal Guidry Other [email or web address] Other 06-04-2022 17:00-0500 SaO2% (BldA) [Mass fraction] 98 % Cristal Guidry Other [email or web address] Other 09-06-2021 02:05-0400 Body weight 77.[address] CHEYENNE MEADE . [facility] Comment on above: Performed By: #### AFPTET #### [facility] [address] [place] [address] Dr. Belkys Fajardo Evaluation note 07-28-2022 Note Date & Type [...] Monitor for now may not need treatment [email or web address] Other Evaluation note 06-04-2022 Note Date & [...] other viral communicable diseases (ICD-10 - Z20.828) [email or web address] Other Clinical Note 01-23-2022 Note Date & Type Note Facility 01-23-2022 Note OPERATIVE NOTE OPERATION DATE: 02/18/2022 PROCEDURE: Repair of fourth degree perineal laceration. PREOPERATIVE DIAGNOSIS: Fourth degree perineal laceration. POSTOPERATIVE DIAGNOSIS: Fourth degree perineal laceration. ANESTHESIA: Epidural SURGEON: Cheyenne Meade D.O. HOOD FITTER: BOBO Cole URINE OUTPUT: Yellow and clear. [...] to recovery in stable condition. [facility] Clinical Note 01-23-2022 Note Date & Type Note Facility 01-23-2022 Note OP Note OPERATION DATE: 01/23/2022 PROCEDURE: Repair of fourth degree perineal laceration. PREOPERATIVE DIAGNOSIS: Fourth degree perineal laceration. POSTOPERATIVE DIAGNOSIS: Fourth degree perineal laceration. ANESTHESIA: Epidural SURGEON: Cheyenne Meade D.O. HOOD FITTER: BOBO Cole URINE OUTPUT: Yellow and clear. [...] to recovery in stable condition. [facility] Clinical Note 01-23-2022 Note Date & Type Note Facility 01-23-2022 Note OPERATIVE NOTE OPERATION DATE: 02/10/2022 PROCEDURE: Repair of fourth degree laceration. PREOPERATIVE DIAGNOSIS: Fourth degree laceration. POSTOPERATIVE DIAGNOSIS: Fourth degree laceration. ANESTHESIA: General. SURGEON: Cheyenne Meade D.O. HOOD FITTER: BOBO URINE OUTPUT: Yellow and clear. BLOOD [...] sheath and this was done in a egroca-vq-[id number] fashion. This was performed using 3-0 Vicryl. [...] patient tolerated this procedure well. [facility] Clinical Note 08-22-2021 Note Date & [...] DERIC VO Date: 2021-08-22 07:[address] [facility] Evaluation note Note Date & Type Note Facility Evaluation note Diagnosis Palpitations Post-COVID chronic palpitations Shortness of breath Lightheaded Dizziness and giddiness Dizziness Dizziness and giddiness documented in this encounter [employer] Phone: Evaluation note Note Date & Type Note Facility Evaluation note No Information [email or web address] Other History general Narrative - Reported Note Date & Type Note Facility History general Narrative - Reported Type Medical History POTS Medical History sinus tachycardia Surgical History 4th degree vaginal tear after g iving 2021 [email or web address] Other History general Narrative - Reported Note Date & Type Note Facility History general Narrative - Reported Type Medical History POTS Medical History sinus tachycardia Medical History Anxiety, generalized Surgical History 4th degree vaginal t ear after giving 2021 Surgical History MASTOPEXY OF BOTH BR EASTS WITH INSERTION OF SALINE IMPLANTS Hospitalization History SEE SURGICAL HX [email or web address] Other Reason for Referral Specialty Diagnoses / Procedures Referred By Willy smith Referred To Contact Cardiology Diagnoses Palpitations Post-COVID chronic palpitations Shortness of breath Lightheaded Dizziness Procedures Holter Monitor 24 Hour Yogi Marquez MD [address] [place] [id number] Referral ID Status Reason Start Date Expiration Date Visits Re quested Visits Authorized [id number] Open 03/09/2021 03/09/2022 1 1 Advance Directives No Advanced Directives Records FoundDocuments on File Type Date Recorded 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 ACP-Advance Directive 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 Summary Purpose Family History No Family History Records FoundNo Family History Records FoundNo Family History Records Found Additional Source Comments Reason for Visit (unrecogniz ed section and content) Specialty Diagnoses / Procedures Referred By Willy smith Referred To Contact Cardiology Diagnoses Palpitations Post-COVID chronic palpitations Shortness of breath Lightheaded Dizziness Procedures Holter Monitor 24 Hour Yogi Marquez MD [address] [place] [id number] Referral ID Status Reason Start Date Expiration Date Visits Re quested Visits Authorized [id number] Open 03/09/2021 03/09/2022 1 1 Care Teams (unrecognized sec tion and content) Domestic Housekeeper Relationship Specialty Start Date End Date Nick Leonardo DO [address] [place] [address] PCP - General Internal Medicine 03/09/21 INFORMATION SOURCE (unrecogn ized section and content) DATE CREATED AUTHOR 07/01/2022 [facility] DATE CREATED AUTHOR AUTHOR'S ORGANIZ ATION 08/15/[address] [facility] DATE CREATED AUTHOR AUTHOR'S ORGANIZ ATION 09/08/2023 [facility] EPIC FOR RECORDS PERTAINING TO PATIENTS WHO ARE [...] BE BASED ON THE PRIMARY CLINICAL RECORDS. [employer] [facility]. provides no warranty or guarantee of the accuracy or completeness of information in this document.
[2023-09-17 08:45] LABS: Glucose Fasting 104 mg/dL (<95)
[2023-09-17 10:02] LABS: Glucose 1 Hour 116 mg/dL (<180)
[2023-09-17 10:52] LABS: Glucose 2 Hour 101 mg/dL (<155)
[2023-09-17 12:06] LABS: Glucose 3 Hour 66 mg/dL (<140)
== END 2023-09-17 08:14 | disposition home or self-care (01) ==
PROVIDERS: Visit Provider Obstetrics & Gynecology
DX: R73.09 Other abnormal glucose (principal)
CPT/HCPCS: 36415; 82951; 82952

== ENCOUNTER 2023-10-05 07:16 | Outpatient (OUT) | payer OTHER, SELFPAY ==
--- NOTE | 2023-10-05 19:11 | US_ITS ---
[address] [address] Patient Name: AUDREY DOZIER MRN: [id number] date: 1990 Sex: F Assigned Patient Location: [facility] Current Patient Location: Accession/Order Number: [id number] Exam Date: 10/05/2023 19:15 Report Date: 10/06/2023 07:13 At the request of: CHEYENNE BLOOM Procedure: US OB BPP w non-stress EXAMINATION: US OB BPP w non-stress HISTORY: POTS COMPARISON: No relevant comparison available. TECHNIQUE: Ultrasound biophysical profile was performed in the radiology department. non-reactive stress testing was performed by nursing staff in the birthing center. FINDINGS: BREATHING MOVEMENTS: 2 GROSS BODY MOVEMENTS: 2 TONE: 2 QUALITATIVE AMNIOTIC FLUID VOLUME: 2 PRESENTATION: CEPHALIC HEART RATE: 132.35 bpm AMNIOTIC FLUID VOLUME: 17.1 cm GESTATIONAL AGE: 33 weeks 6 days US/US OB BPP w non-stress IMPRESSION: Total biophysical profile score: 8 Electronically authenticated by: ROSARIO GARRISON Date: 10/06/2023 07:13
[2023-10-05 19:42] VITALS: TEMP 36.2
[2023-10-05 19:43] VITALS: BP 111/65; PULSE 89
== END 2023-10-05 20:42 | disposition home or self-care (01) ==
LOC: US 07:16 → FBC 19:10
PROVIDERS: Visit Provider Obstetrics & Gynecology
DX: O26.893 Other specified pregnancy related conditions, third trimester (principal); G90.A Postural orthostatic tachycardia syndrome [POTS]; Z3A.33 33 weeks gestation of pregnancy
CPT/HCPCS: 59025; 76818

== ENCOUNTER 2023-10-08 08:00 | Outpatient (OUT) | payer OTHER, SELFPAY ==
[2023-10-08 08:19] VITALS: BP 109/61; PULSE 93
== END 2023-10-08 08:50 | disposition home or self-care (01) ==
LOC: FBCO 08:15 → FBC 08:15
PROVIDERS: Visit Provider Obstetrics & Gynecology
DX: O26.893 Other specified pregnancy related conditions, third trimester (principal); G90.A Postural orthostatic tachycardia syndrome [POTS]; Z3A.34 34 weeks gestation of pregnancy
CPT/HCPCS: 59025

== ENCOUNTER 2023-10-11 20:01 | Observation (INO) | payer OTHER, SELFPAY ==
[2023-10-11 20:35] VITALS: BP 111/70; PULSE 101; TEMP 36.7
[2023-10-11 20:50] LABS: Bilirubin Urine NEGATIVE (NEGATIVE); Blood Urine NEGATIVE (NEGATIVE); Clarity Urine CLEAR (CLEAR); Color Urine LT. YELLOW (YELLOW); Glucose Urine UA 100 mg/dL (NEGATIVE); Ketones Urine 15 mg/dL (NEGATIVE); Leukocyte Esterase Urine NEGATIVE (NEGATIVE); Nitrite Urine NEGATIVE (NEGATIVE); Protein Urine NEGATIVE (NEG/TRACE); Urine Microscopic Indicated NO; Urobilinogen Urine 0.2 EU/dL (0.2-1.0)
--- NOTE | 2023-10-11 21:24 | US_ITS ---
[address] [address] Patient Name: AUDREY DOZIER MRN: [id number] date: 1990 Sex: F Assigned Patient Location: [facility] Current Patient Location: Accession/Order Number: [id number] Exam Date: 10/11/2023 21:33 Report Date: 10/12/2023 00:18 At the request of: [facility] [facility] Procedure: US OB cervical length ULTRASOUND OB CERVICAL LENGTH AND US OB BPPWITH NON-STRESS TEST HISTORY: . COMPARISON: Ultrasound OB 10/05/2023. FINDINGS: There is a single intrauterine in the cephalic presentation and longitudinal lie. The cervix measures 3.5 cm and is closed. There is a minimal amount of fluid in the cervical canal. There are heart tones of 147 bpm. The placenta tip is located 2.3 cm from the cervical os. Movement 2 Tone 2 Breathing 2 Fluid 2 US/US OB cervical length IMPRESSION: Single viable intrauterine privacy; BPP 8/8. Cervix measures 3.5 cm and is closed; minimal amount of fluid within the cervical canal. Electronically authenticated by: OLYA COLLINS Date: 10/12/2023 00:18
[2023-10-11 21:30] VITALS: BP 111/70; PULSE 101; TEMP 36.7
[2023-10-11] MEDS: 0.9 % SODIUM CHLORIDE 1,000 ML 999 ML IV (21:30)
--- NOTE | 2023-10-11 21:54 | US_ITS ---
[address] [address] Patient Name: AUDREY DOZIER MRN: [id number] date: 1990 Sex: F Assigned Patient Location: [facility] Current Patient Location: Accession/Order Number: [id number] Exam Date: 10/11/2023 21:57 Report Date: 10/12/2023 00:18 At the request of: [place] BLOOM Procedure: US OB BPP w non-stress ULTRASOUND OB CERVICAL LENGTH AND US OB BPPWITH NON-STRESS TEST HISTORY: . COMPARISON: Ultrasound OB 10/05/2023. FINDINGS: There is a single intrauterine in the cephalic presentation and longitudinal lie. The cervix measures 3.5 cm and is closed. There is a minimal amount of fluid in the cervical canal. There are heart tones of 147 bpm. The placenta tip is located 2.3 cm from the cervical os. Movement 2 Tone 2 Breathing 2 Fluid 2 US/US OB BPP w non-stress IMPRESSION: Single viable intrauterine privacy; BPP 8/8. Cervix measures 3.5 cm and is closed; minimal amount of fluid within the cervical canal. Electronically authenticated by: OLYA COLLINS Date: 10/12/2023 00:18
[2023-10-11 21:57] VITALS: BP 111/70
[2023-10-11] MEDS: NIFEdipine 10 MG CAPSULE 20 MG PO (21:57)
--- NOTE | 2023-10-11 22:23 | PC.NURSE ---
cervical length US cervix 3.5 and closed
== END 2023-10-11 23:00 | disposition home or self-care (01) ==
PROVIDERS: Admitting Provider Obstetrics & Gynecology; PCP Family Medicine; Visit Provider Obstetrics & Gynecology
DX: O47.9 False labor, unspecified (principal); Z3A.00 Weeks of gestation of pregnancy not specified
CPT/HCPCS: 59025; 76817; 76818; 81003; G0378; G0379

== ENCOUNTER 2023-10-15 08:12 | Outpatient (OUT) | payer OTHER, SELFPAY ==
--- OUTSIDE RECORDS SUMMARY | 2023-10-15 08:16 | XMS_ITS | CCD ---
Author Organization [facility] Care Team Providers Care Fire Services Plumber Name Role Phone Nick Leonardo DO Primary Care Provider Cristal Guidry Unavailable WOLF ., DR QUINN [...] DURHAM Attending Unavailabl e WOLF ., DR QIUNN Consulting Unavailable HOSEA FRAZIER Consulting Unavailable WOLF ., DR QUINN Procedure Practitioner Unavail able WOLF ., DR QUINN Consulting Unavailable WOLF ., DR QUINN Attending Unavailable WOLF ., DR QUINN Admitting Unavailable REQUEST, DR NONE LISTED Primary Care Unavaila ble ZIALISA, DR YOGI Witt Consulting Unavailable WOLF ., DR QUINN Admitting Unavailable WOLF ., DR QUINN Consulting Unavailable WOLF ., DR QUINN Attending Unavailable BALL, DR TUCKER Primary Care Unavailable WOLF ., DR QUINN Attending Unavailable WOLF ., DR QUINN Admitting Unavailable WOLF ., DR QUNIN Consulting Unavailable BALL, DR TUCKER Primary Care Unavailable ZIEBER, DR YOGI Witt Consulting Unavailable WOLF ., DR QUINN Attending Unavailable WOLF ., DR QUINN Admitting Unavailable WOLF ., DR QUINN Consulting Unavailable JORDEN, DR TUCKER Primary Care Unavailable ZIEBGOKUL, DR YOGI Witt Consulting Unavailable Jorden Nick Unavailable YOGI MARQUEZ Attending Unavailable YOGI MARQUEZ Referring Unavailable MOISES, LIS A Primary Care Unavailable DE LEON, LIS A Primary Care Unavailable SUSANNA WILLIAM Attending Unavailable MOISES, LIS A Primary Care Unavailable YOGI MARQUEZ Attending Unavailable YOGI MARQUEZ Referring Unavailable MOISES, LIS A Primary Care Unavailable CHEYENNE MEADE Attending Unavailable CHEYENNE MEADE Attending Unavailable CHEYENNE MEADE Attending Unavailable CHEYENNE MEADE Attending Unavailable CHEYENNE MEADE Attending Unavailable CHEYENNE MEADE Attending Unavailable WOLF, CHEYENNE Attending Unavailable WOLF, CHEYENNE Attending Unavailable Medications Current Medications Medication Drug [...] Translations: [Generalized anxiety disorder] Chronic Cardiac dysrhythmias (3 sources) Palpitations; Translations: [Palpitations] Onset: 09-20-2023 Episodic Fluid and electrolyte disorders (2 sources) [...] Translations: [Postural orthostatic tachycardia syndrome (POTS)] Onset: 07-28-2023 Episodic Other infections; including parasitic (1 source) [...] [Personal history of other specified conditions] Onset: 05-02-2024 Episodic Sprains and strains (1 source) Strain of muscle, fascia and tendon at neck level, initial encounter Episodic Unclassified (1 source) CONTACT W/AND (SUSP) EXPOS COVID-19; Translations: [CONTACT W/AND (SUSP) EXPOS COVID-19] Onset: 09-03-2021 Past or Other Problems Problem Classification Problem Date Documented Date Episodic/Chronic Conditions associated with dizziness or vertigo (3 sources) Lightheadedness; Translations: [Dizziness and giddiness] Onset: 03-08-2023 Episodic Diabetes mellitus without complication (4 sources) [...] Test Name Value Interpretation Reference Range Facility CT CHEST PULMONARY EMBOLISM W CONTRASTon 09-21-2023 CT CHEST PULMONARY EMBOLISM W CONTRAST EXAMINATION: CTA OF THE CHEST 09/20/2023 9:46 pm TECHNIQUE: CTA of the chest was performed after the administration of intravenous contrast. Multiplanar reformatted images are provided for review. MIP images are provided for review. Automated exposure control, iterative reconstruction, and/or weight based adjustment of the mA/kV was utilized to reduce the radiation dose to as low as reasonably achievable. COMPARISON: None. HISTORY: ORDERING SYSTEM PROVIDED HISTORY: Tachycardia; SOB; 32 wks TECHNOLOGIST PROVIDED HISTORY: Tachycardia; SOB; 32 wks Additional Contrast?->1 FINDINGS: Pulmonary Arteries: Pulmonary arteries are adequately opacified for evaluation. No evidence of intraluminal filling defect to suggest pulmonary embolism. Main pulmonary artery is normal in caliber. Mediastinum: No evidence of mediastinal lymphadenopathy. The heart and pericardium demonstrate no acute abnormality. There is no acute abnormality of the thoracic aorta. Lungs/pleura: The lungs are without acute process. No focal consolidation or pulmonary edema. No evidence of pleural effusion or pneumothorax. Upper Abdomen: Mild left hydronephrosis is likely related to gravid uterus. Soft Tissues/Bones: No acute bone or soft tissue abnormality. Bilateral breast implants are present. IMPRESSION: 1. No evidence of pulmonary embolism or acute pulmonary abnormality. 2. Mild left hydronephrosis is likely related to gravid uterus. Interpreted by: Cayla Thornton MD Signed by: Cayla Thornton MD 09/21/23 Final result Normal [facility] CBC with Diffon 09-20-2023 Abs. Basophil 0.05 k/uL Normal 0.00-0.20 [facility] Comment on above: Performed By: #### C DP, PT, MG #### [facility] [address] [place] [address] Boiler Tube Reamer: Rosario Linares MD Abs.Imm.Granulocyte 0.20 k/uL Normal 0.00-0.30 [facility] Comment on above: Performed By: #### C DP, PT, MG #### [facility] [address] [place] [address] Boiler Tube Reamer: Rosario Linares MD Abs.Neutrophil (Seg) 9.90 k/uL High 1.50-8.10 [facility] Comment on above: Performed By: #### C DP, PT, MG #### [address] [place], [place] [address] Boiler Tube Reamer: Rosario Linares MD Basophils/100 WBC (Bld) 0 % Normal 0-2 [facility] Comment on above: Performed By: #### C DP, PT, MG #### [address] [place], [place] [address] Boiler Tube Reamer: Rosario Linares MD Eosinophils (Bld) [#/Vol] 0.15 10*3/uL Normal 0.00-0.44 [facility] Comment on above: Performed By: #### C DP, PT, MG #### [facility] [address] [place] [address] Dr. [place], [place] [address] Boiler Tube Reamer: Rosario Linares MD Eosinophils/100 WBC (Bld) 1 % Normal 1-4 [facility] Comment on above: Performed By: #### C DP, PT, MG #### [facility] [address] [place], [facility]83 Boiler Tube Reamer: Rosario Linares MD Erythrocyte distribution width (RBC) [Ratio] 12.8 % Normal 11.8-14.4 [facility] Comment on above: Performed By: #### C DP, PT, MG #### [facility] [address] [place] [address] Dr. [place], [place] [address] Boiler Tube Reamer: Rosario Linares MD Hematocrit (Bld) [Volume fraction] 32.7 % Low 36.3-47.1 [facility] Comment on above: Performed By: #### C DP, PT, MG #### [address] [place], [place] [address] Boiler Tube Reamer: Rosario Linares MD Hemoglobin (Bld) [Mass/Vol] 11.3 g/dL Low 11.9-15.1 [facility] Comment on above: Performed By: #### C DP, PT, MG #### [address] [place], [place] [address] Boiler Tube Reamer: Rosario Linares MD Immature granulocytes/100 WBC (Bld) 2 % High 0 [facility] Comment on above: Performed By: #### C DP, PT, MG #### [address] [place], [place] [address] Boiler Tube Reamer: Rosario Linares MD Lymphocytes (Bld) [#/Vol] 2.23 10*3/uL Normal 1.10-3.70 [facility] Comment on above: Performed By: #### C DP, PT, MG #### [facility] [address] [place] [address] Dr. [place], [facility]83 Boiler Tube Reamer: Rosario Linares MD Lymphocytes/100 WBC (Bld) 17 % Low 24-43 [facility] Comment on above: Performed By: #### C DP, PT, MG #### [address] [place], [place] [id number] Boiler Tube Reamer: Rosario Linares MD MCH (RBC) [Entitic mass] 29.7 pg Normal 25.2-33.5 [facility] Comment on above: Performed By: #### C DP, PT, MG #### [address] [place], [place] 76[address]83 Boiler Tube Reamer: Rosario Linares MD MCHC (RBC) [Mass/Vol] 34.6 g/dL Normal 28.4-34.8 [facility] Comment on above: Performed By: #### C DP, PT, MG #### [address] [place], [facility]83 Boiler Tube Reamer: Rosario Linares MD MCV (RBC) [Entitic vol] 85.8 fL Normal 82.6-102.9 [facility] Comment on above: Performed By: #### C DP, PT, MG #### [address] [place] [address] Boiler Tube Reamer: Rosario Linaers MD Monocytes (Bld) [#/Vol] 0.72 10*3/uL Normal 0.10-1.20 [facility] Comment on above: Performed By: #### C DP, PT, MG #### [address] [place], [place] 1463783 Boiler Tube Reamer: Rosario Linares MD Monocytes/100 WBC (Bld) 5 % Normal 3-12 [facility] Comment on above: Performed By: #### C DP, PT, MG #### [address] [place], [facility]83 Boiler Tube Reamer: Rosario Linares MD Neutrophil (Seg) 75 % High 36-65 [facility] Comment on above: Performed By: #### C DP, PT, MG #### [address] [place] [address] Boiler Tube Reamer: Rosario Linares MD NRBC Automated 0.0 per 100 WBC Normal 0.0 [facility] Comment on above: Performed By: #### C DP, PT, MG #### [facility] [address] [place], [place] [id number] Boiler Tube Reamer: Rosario Linares MD Platelet mean volume (Bld) [Entitic vol] 10.2 fL Normal 8.1-13.5 [facility] Comment on above: Performed By: #### C DP, PT, MG #### [facility] [address] [place], [place] [address]8383 Boiler Tube Reamer: Rosario Linares MD Platelets (Bld) [#/Vol] 293 10*3/uL Normal 138-453 [facility] Comment on above: Performed By: #### C DP, PT, MG #### [address] [place], [place] 7077983 Boiler Tube Reamer: Rosario Linares MD RBC (Bld) [#/Vol] 3.81 10*6/uL Low 3.95-5.11 [facility] Comment on above: Performed By: #### C DP, PT, MG #### [address] [place], [place] 383[address]83 Boiler Tube Reamer: Rosario Linares MD WBC (Bld) [#/Vol] 13.3 10*3/uL High 3.5-11.3 [facility] Comment on above: Performed By: #### C DP, PT, MG #### [address] [place], [place] 5206783 Boiler Tube Reamer: Rosario Linares MD Comp Metabolic Profon 2023 Albumin [Mass/Vol] 3.5 g/dL Normal 3.5-5.2 [facility] Comment on above: Performed By: #### C P #### [address] [place], [place] [address]99883 Boiler Tube Reamer: Rosario Linares MD Albumin/Glob Ratio 1.1 Normal 1.0-2.5 [facility] Comment on above: Performed By: #### C P #### [facility] [address] [place], [place] [address]83 Boiler Tube Reamer: Rosario Linares MD Alkaline Phos 103 U/L Normal 35-104 [facility] Comment on above: Performed By: #### C P #### [facility] [address] [place], [place] [id number] Boiler Tube Reamer: Rosario Linares MD ALT [Catalytic activity/Vol] 16 U/L Normal 5-33 [facility] Comment on above: Performed By: #### C P #### [facility] [address] [place], [place] [address]4783 Boiler Tube Reamer: Rosario Linares MD Anion gap [Moles/Vol] 10 mmol/L Normal 9-17 [facility] Comment on above: Performed By: #### C P #### [facility] [address] [place], [place] 1508083 Boiler Tube Reamer: Rosario Linares MD AST [Catalytic activity/Vol] 16 U/L Normal <32 [facility] Comment on above: Performed By: #### C P #### [facility] [address] [place], [place] [address]83 Boiler Tube Reamer: Rosario Linares MD Bilirubin [Mass/Vol] 0.2 mg/dL Low 0.3-1.2 [facility] Comment on above: Performed By: #### C P #### [facility] [address] [place], [place] [address]168183 Boiler Tube Reamer: Rosario Linares MD BUN/CRE Ratio 18 Normal 9-20 [facility] Comment on above: Performed By: #### C P #### [facility] [address] [place], [place] 0390683 Boiler Tube Reamer: Rosario Linares MD Calcium [Mass/Vol] 8.4 mg/dL Low 8.6-10.4 [facility] Comment on above: Performed By: #### C P #### [facility] [address] [place] [address] Boiler Tube Reamer: Rosario Linares MD Chloride [Moles/Vol] 101 mmol/L Normal 98-107 [facility] Comment on above: Performed By: #### C P #### [facility] [address] [place] [address] Boiler Tube Reamer: Rosario Linares MD CO2 [Moles/Vol] 22 mmol/L Normal 20-31 [facility] Comment on above: Performed By: #### C P #### [facility] [address] [place] [address] Boiler Tube Reamer: Rosario Linares MD Creatinine [Mass/Vol] 0.4 mg/dL Low 0.5-0.9 [facility] Comment on above: Performed By: #### C P #### [facility] [address] [place] [address] Boiler Tube Reamer: Rosario Linares MD GFR/1.73 sq M.predicted among non-blacks MDRD (S/P/Bld) [Vol rate/Area] mL/min/{1.73_m2} Normal >60 [facility] Comment on above: Result Comment: These results [...] affects renal tubular secretion. Performed By: #### C P #### [facility] [address] [place] [address] Boiler Tube Reamer: Rosario Linares MD Glucose [Mass/Vol] 89 mg/dL Normal 70-99 [facility] Comment on above: Performed By: #### C P #### [facility] [address] [place], [place] 1874983 Boiler Tube Reamer: Rosario Linares MD Potassium [Moles/Vol] 3.7 mmol/L Normal 3.7-5.3 [facility] Comment on above: Performed By: #### C P #### [facility] [address] [place] [id number] Boiler Tube Reamer: Rosario Linares MD Protein [Mass/Vol] 6.7 g/dL Normal 6.4-8.3 [facility] Comment on above: Performed By: #### C P #### [facility] [address] [place] [address] [place] [address] Boiler Tube Reamer: Rosario Linares MD Sodium [Moles/Vol] 133 mmol/L Low 135-144 [facility] Comment on above: Performed By: #### C P #### [facility] [address] [place] [address] [place] [address] Boiler Tube Reamer: Rosario Linares MD Urea nitrogen [Mass/Vol] 7 mg/dL Normal 6-20 [facility] Comment on above: Performed By: #### C P #### [facility] [address] [place] [address] Dr. [place] [id number] Boiler Tube Reamer: Rosario Linares MD D-Dimer Teston 09-20-2023 D-Dimer Test 1.32 ug/mL FEU High 0.00-0.59 [facility] Comment on above: Result Comment: When combined with a low clinical probability, a D dimer value of <0.50 ug/mL FEU is considered negative for DVT and PE (negative predictive value of 98%, sensitivity of 97%). If this test is not being used to help rule out DVT and PE, then the following reference range should be utilized: 0.00 - 0.59 ug/mL FEU. The D-Dimer assay is intended for use as an aid in the diagnosis of venous thromboembolism (DVT and PE) and the results should be interpreted in conjunction with the patient's medical history, clinical presentation, and other findings. Elevated levels of D-dimer activity can be seen in any state of coagulation activation and is not recommended in patients with therapeutic dose anticoagulant therapy for >24 hours, fibrinolytic therapy within the previous 7 days, trauma or surgery within the previous 4 weeks, disseminated malignancies, aortic aneurysm, sepsis, severe infections, pneumonia, severe skin infections, liver cirrhosis, advanced age, coronary disease, diabetes, and . A very low percentage of patients with DVT may yield D-dimer results below the cutoff of 0.5 ug/mL FEU. This is known to be more prevalent in patients with distal DVT. Performed By: #### D PATI #### [address] [place] [id number] Boiler Tube Reamer: Rosario Linares MD Magnesiumon 09-20-2023 Magnesium [Mass/Vol] 1.8 mg/dL Normal 1.6-2.6 [facility] Comment on above: Performed By: #### C DP, PT, MG #### [address] [place], [facility]83 Boiler Tube Reamer: Rosario Linares MD PTon 09-20-2023 INR Coag (PPP) [Relative time] 1.0 {INR} Normal [facility] Comment on above: Result Comment: Therapeutic Range: Moderate Anticoagulant Intensity: INR = 2.0-3.0 High Anticoagulant Intensity: INR = 2.5-3.5 Performed By: #### C DP, PT, MG #### [address] [place], [facility]83 Boiler Tube Reamer: Rosario Linares MD PT Coag (PPP) [Time] 12.8 s Normal 11.7-14.1 [facility] Comment on above: Performed By: #### C DP, PT, MG #### [address] [place] [address] Boiler Tube Reamer: Rosario Linares MD Thyroid Stim. Horm.on 2023 Thyroid Stim. Horm. 2.11 uIU/mL Normal 0.30-5.00 [facility] Comment on above: Performed By: #### T SH #### [facility] [address] [place], [place] 8[address]83 Boiler Tube Reamer: Rosario Linares MD Troponinon 09-20-2023 Troponin, High Sens <6 Normal 0-14 [facility] Comment on above: Result Comment: High Sensitivity Troponin values cannot be compared with other Troponin methodologies. Performed By: #### T ROPI #### [facility] [address] [place], [place] [id number] Boiler Tube Reamer: Rosario Linares MD Basic Metabolic Profon 07-25 Anion gap [Moles/Vol] 13 mmol/L Normal 9-17 [facility] Comment on above: Performed By: #### C DP, BMP #### [facility] [address] [place] [address] Boiler Tube Reamer: Rosario Linares MD BUN/CRE Ratio 18 Normal 9-20 [facility] Comment on above: Performed By: #### C DP, BMP #### [facility] [address] [place] [address] Boiler Tube Reamer: Rosario Linares MD Calcium [Mass/Vol] 8.7 mg/dL Normal 8.6-10.4 [facility] Comment on above: Performed By: #### C DP, BMP #### [facility] [address] [place], [place] [id number] Boiler Tube Reamer: Rosario Linares MD Chloride [Moles/Vol] 100 mmol/L Normal 98-107 [facility] Comment on above: Performed By: #### C DP, BMP #### [facility] [address] [place] [address] Boiler Tube Reamer: Rosario Linares MD CO2 [Moles/Vol] 21 mmol/L Normal 20-31 [facility] Comment on above: Performed By: #### C DP, BMP #### [facility] [address] [place] [address] Boiler Tube Reamer: Rosario Linares MD Creatinine [Mass/Vol] 0.4 mg/dL Low 0.5-0.9 [facility] Comment on above: Performed By: #### C DP, BMP #### [facility] [address] [place] [address] Boiler Tube Reamer: Rosario Linares MD GFR/1.73 sq M.predicted among non-blacks MDRD (S/P/Bld) [Vol rate/Area] mL/min/{1.73_m2} Normal >60 [facility] Comment on above: Result Comment: These results [...] affects renal tubular secretion. Performed By: #### C DP, BMP #### [facility] [address] [place] [address] Boiler Tube Reamer: Rosario Linares MD Glucose [Mass/Vol] 115 mg/dL High 70-99 [facility] Comment on above: Performed By: #### C DP, BMP #### [facility] [address] [place], [place] 958[address]83 Boiler Tube Reamer: Rosario Linares MD Potassium [Moles/Vol] 3.4 mmol/L Low 3.7-5.3 [facility] Comment on above: Performed By: #### C DP, BMP #### [facility] [address] [place] [address] Boiler Tube Reamer: Rosario Linares MD Sodium [Moles/Vol] 134 mmol/L Low 135-144 [facility] Comment on above: Performed By: #### C DP, BMP #### [facility] [address] [place] [address] Boiler Tube Reamer: Rosario Linares MD Urea nitrogen [Mass/Vol] 7 mg/dL Normal 6-20 [facility] Comment on above: Performed By: #### C DP, BMP #### [facility] [address] [place], [place] [id number] Boiler Tube Reamer: Rosario Linares MD CBC with Diffon 07-26-2023 Abs. Basophil 0.04 k/uL Normal 0.00-0.20 [facility] Comment on above: Performed By: #### C DP, BMP #### [address] [place], [place] [address]68[address] Boiler Tube Reamer: Rosario Linares MD Abs.Imm.Granulocyte 0.07 k/uL Normal 0.00-0.30 [facility] Comment on above: Performed By: #### C DP, BMP #### [address] [place], [place] [address] Boiler Tube Reamer: Rosario Linares MD Abs.Neutrophil (Seg) 8.51 k/uL High 1.50-8.10 [facility] Comment on above: Performed By: #### C DP, BMP #### [address] [place], [place] 0491783 Boiler Tube Reamer: Rosario Linares MD Basophils/100 WBC (Bld) 0 % Normal 0-2 [facility] Comment on above: Performed By: #### C DP, BMP #### [facility] [address] [place] [address] Dr. [place], [place] 0345[address] Boiler Tube Reamer: Rosario Linares MD Eosinophils (Bld) [#/Vol] 0.11 10*3/uL Normal 0.00-0.44 [facility] Comment on above: Performed By: #### C DP, BMP #### [address] [place], [place] 4371083 Boiler Tube Reamer: Rosario Linares MD Eosinophils/100 WBC (Bld) 1 % Normal 1-4 [facility] Comment on above: Performed By: #### C DP, BMP #### [facility] [address] [place], [place] [address] Boiler Tube Reamer: Rosario Linares MD Erythrocyte distribution width (RBC) [Ratio] 13.0 % Normal 11.8-14.4 [facility] Comment on above: Performed By: #### C DP, BMP #### [address] [place], [place] [address] Boiler Tube Reamer: Rosario Linares MD Hematocrit (Bld) [Volume fraction] 36.2 % Low 36.3-47.1 [facility] Comment on above: Performed By: #### C DP, BMP #### [address] [place], [place] [address] Boiler Tube Reamer: Rosario Linares MD Hemoglobin (Bld) [Mass/Vol] 12.2 g/dL Normal 11.9-15.1 [facility] Comment on above: Performed By: #### C DP, BMP #### [address] [place], [place] [address] Boiler Tube Reamer: Rosario Linares MD Immature granulocytes/100 WBC (Bld) 1 % High 0 [facility] Comment on above: Performed By: #### C DP, BMP #### [address] [place], [place] [address] Boiler Tube Reamer: Rosario Linares MD Lymphocytes (Bld) [#/Vol] 2.63 10*3/uL Normal 1.10-3.70 [facility] Comment on above: Performed By: #### C DP, BMP #### [address] [place] [address] Boiler Tube Reamer: Rosario Linares MD Lymphocytes/100 WBC (Bld) 22 % Low 24-43 [facility] Comment on above: Performed By: #### C DP, BMP #### [facility] [address] [place] [address] Boiler Tube Reamer: Rosario Linares MD MCH (RBC) [Entitic mass] 29.8 pg Normal 25.2-33.5 [facility] Comment on above: Performed By: #### C DP, BMP #### [facility] [address] [place], [place] 4463583 Boiler Tube Reamer: Rosario Linares MD MCHC (RBC) [Mass/Vol] 33.7 g/dL Normal 28.4-34.8 [facility] Comment on above: Performed By: #### C DP, BMP #### [address] [place], [facility]83 Boiler Tube Reamer: Rosario Linares MD MCV (RBC) [Entitic vol] 88.5 fL Normal 82.6-102.9 [facility] Comment on above: Performed By: #### C DP, BMP #### [address] [place], [facility]83 [employer] Tube Reamer: Rosario Linares MD Monocytes (Bld) [#/Vol] 0.44 10*3/uL Normal 0.10-1.20 [facility] Comment on above: Performed By: #### C DP, BMP #### [address] [place] [address] Boiler Tube Reamer: Rosario Linares MD Monocytes/100 WBC (Bld) 4 % Normal 3-12 [facility] Comment on above: Performed By: #### C DP, BMP #### [facility] [address] [place], [place] [id number] Boiler Tube Reamer: Rosario Linares MD Neutrophil (Seg) 72 % High 36-65 [facility] Comment on above: Performed By: #### C DP, BMP #### [facility] [address] [place], [facility]83 Boiler Tube Reamer: Rosario Linares MD NRBC Automated 0.0 per 100 WBC Normal 0.0 [facility] Comment on above: Performed By: #### C DP, BMP #### [facility] [address] [place], [place] [id number] Boiler Tube Reamer: Rosario Linares MD Platelet mean volume (Bld) [Entitic vol] 10.3 fL Normal 8.1-13.5 [facility] Comment on above: Performed By: #### C DP, BMP #### [facility] [address] [place], [place] [id number] Boiler Tube Reamer: Rosario Linares MD Platelets (Bld) [#/Vol] 289 10*3/uL Normal 138-453 [facility] Comment on above: Performed By: #### C DP, BMP #### [address] [place], [place] [id number] [employer] Tube Reamer: Rosario Linares MD RBC (Bld) [#/Vol] 4.09 10*6/uL Normal 3.95-5.11 [facility] Comment on above: Performed By: #### C DP, BMP #### [address] [place], [place] [id number] [employer] Tube Reamer: Rosario Linares MD WBC (Bld) [#/Vol] 11.8 10*3/uL High 3.5-11.3 [facility] Comment on above: Performed By: #### C DP, BMP #### [address] [place], [place] [id number] [employer] Tube Reamer: Rosario Linares MD Troponinon 07-26-2023 Troponin, High Sens 6 ng/L Normal 0-14 [facility] Comment on above: Result Comment: High Sensitivity Troponin values cannot be compared with other Troponin methodologies. Performed By: #### T ROPI #### [facility] [address] [place], [place] [id number] Boiler Tube Reamer: Rosario Linares MD UA w/Reflex Cultureon 2023 Bilirubin, SemiQt,Ur Negative Normal [facility] Comment on above: Performed By: #### C DP, BMP #### [facility] [address] [place] [address] Dr. [place], [place] [id number] Boiler Tube Reamer: Rosario Linares MD Blood, Urine Negative Normal NEG [facility] Comment on above: Performed By: #### C DP, BMP #### [facility] [address] [place] [address] Bo[employer] Tube Reamer: Rosario Linares MD Clarity (U) Clear Normal CLEAR [facility] Comment on above: Performed By: #### C DP, BMP #### [address] [place], [place] [id number] Boiler Tube Reamer: Rosario Linares MD Color (U) Yellow Normal YEL [facility] Comment on above: Performed By: #### C DP, BMP #### [address] [place] [address] Boiler Tube Reamer: Rosario Linares MD Glucose Ql (U) Negative Normal NEG [facility] [place] [facility] Comment on above: Performed By: #### C DP, BMP #### [address] [place] [address] Boiler Tube Reamer: Rosario Linares MD Ketones Ql (U) Negative Normal NEG [facility] Comment on above: Performed By: #### C DP, BMP #### [facility] [address] [place] [address] [place] [address] Boiler Tube Reamer: Rosario Linares MD Leukocyte esterase Test strip Ql (U) SMALL Abnormal NEG [facility] Comment on above: Performed By: #### C DP, BMP #### [facility] [address] [place] [address] Dr. [place], [place] [id number] Boiler Tube Reamer: Rosario Linares MD Nitrite,Ur Negative Normal [facility] Comment on above: Performed By: #### C DP, BMP #### [facility] [address] [place], [place] 0111783 Boiler Tube Reamer: Rosario Linares MD PH,Ur 8.0 Normal 5.0-9.0 [facility] Comment on above: Performed By: #### C DP, BMP #### [facility] [address] [place], [place] [id number] Boiler Tube Reamer: Rosario Linares MD Protein Ql (U) Negative Normal NEG [facility] [place] [facility] Comment on above: Performed By: #### C DP, BMP #### [facility] [address] [place], [place] [id number] Boiler Tube Reamer: Rosario Linares MD Spec. [place],Ur 1.015 Normal 1.010-1.020 [facility] Comment on above: Performed By: #### C DP, BMP #### [facility] [address] [place], [place] 5892283 Boiler Tube Reamer: Rosario Linares MD Urobilinogen,Ur Normal Normal 0.0-1.0 [facility] Comment on above: Performed By: #### C DP, BMP #### [facility] [address] [place] [address] Dr. [place], [place] [id number] Boiler Tube Reamer: Rosario Linares MD Urinalysis,Microon 4 Bacteria TRACE Abnormal NONE [facility] Comment on above: Performed By: #### C DP, BMP #### [facility] [address] [place], [place] 7641983 Boiler Tube Reamer: Rosario Linares MD Epithelial cells LM Ql (Urine sed) 5 TO 10 Normal 0-25 [facility] Comment on above: Performed By: #### C DP, BMP #### [facility] [address] [place], [place] 2294083 [employer] Tube Reamer: Rosario Linares MD Urine RBC's None Normal 0-2 [facility] Comment on above: Performed By: #### C DP, BMP #### [facility] [address] [place] [address] Boiler Tube Reamer: Rosario Linares MD Urine WBC's 2 TO 5 Normal 0-5 [facility] Comment on above: Performed By: #### C DP, BMP #### [facility] [address] [place] [address] Boiler Tube Reamer: Rosario Linares MD COVID/FLU/RSV RT-PCRon 06-046 SARS-CoV-2 (COVID-19) RNA DEVIN+probe Ql (Unsp spec) Negative [facility] [employer] Other COVID/FLU/RSV RT-PCR Negative [facility] [employer] Other Quick Strepon 06-04-2022 S. pyogenes Org specific cx Ql (Throat) Negative [facility] [employer] Other Quick Strep [facility] [employer] Other CBC AUTO DIFFon 01-24-2022 BASO # 0.1 103/ul Normal 0.0-0.1 [facility] Comment on above: Performed By: #### A FPTET #### [facility] [address] [place] [address] Dr. Belkys Fajardo Basophils/100 WBC (Bld) 0.3 % Normal 0.2-2.0 [facility] Comment on above: Performed By: #### A FPTET #### [facility] [address] [place] [address] Dr. Belkys Fajardo EO # 0.1 103/ul Normal 0.0-0.7 [facility] Comment on above: Performed By: #### A FPTET #### [facility] [address] [place] [address] Dr. Belkys Fajardo Eosinophils/100 WBC (Bld) 0.9 % Normal 0.9-7.0 [facility] Comment on above: Performed By: #### A FPTET #### [facility] [address] [place] [address] Dr. Belkys Fajardo Erythrocyte distribution width (RBC) [Ratio] 14.0 % Normal 11.0-15.0 [facility] Comment on above: Performed By: #### A FPTET #### [facility] [address] [place] [address] Dr. Belkys Fajardo Hematocrit (Bld) [Volume fraction] 24.8 % Critically low 36.0-48.0 [facility] Comment on above: Performed By: #### A FPTET #### [facility] [address] [place] [address] Dr. Belkys Fajardo Hemoglobin (Bld) [Mass/Vol] 8.2 g/dL Critically low 12.0-16.0 [facility] Comment on above: Performed By: #### A FPTET #### [facility] [address] [place] [address] Dr. Belkys Fajardo IG # 0.23 10e3/ul Critically high 0.00-0.03 [facility] Comment on above: Performed By: #### A FPTET #### [facility] [address] [place] [address] Dr. Belkys Fajardo IG % 1.5 % Critically high 0.0-0.5 [facility] Comment on above: Performed By: #### A FPTET #### [facility] [address] [place] [address] Dr. Belkys Fajardo LYMPH # 2.4 103/ul Normal 1.2-3.8 [facility] Comment on above: Performed By: #### A FPTET #### [facility] [address] [place] [address] Dr. Belkys Fajardo Lymphocytes/100 WBC (Bld) 15.5 % Critically low 20.5-60.0 [facility] Comment on above: Performed By: #### A FPTET #### [facility] [address] [place] [address] Dr. Belkys Fajardo MANUAL DIFF REQ NO Normal [facility] Comment on above: Performed By: #### A FPTET #### [facility] [address] [address] [address] Belkys Fajardo MCH (RBC) [Entitic mass] 28.5 pg Normal 26.7-34.0 [facility] Comment on above: Performed By: #### A FPTET #### [facility] [address] [place] [address] Dr. Belkys Fajardo MCHC (RBC) [Mass/Vol] 33.1 g/dL Normal 29.9-35.2 [facility] Comment on above: Performed By: #### A FPTET #### [facility] [address] [place] [address] Dr. Belkys Fajardo MCV (RBC) [Entitic vol] 86.1 fL Normal 81.0-99.0 [facility] Comment on above: Performed By: #### A FPTET #### [facility] [address] [place] [address] Dr. Belkys Fajardo MONO # 0.8 103/ul Normal 0.3-0.8 [facility] Comment on above: Performed By: #### A FPTET #### [facility] [address] [place] [address] Dr. Belkys Fajardo Monocytes/100 WBC (Bld) 5.4 % Normal 1.7-12.0 [facility] Comment on above: Performed By: #### A FPTET #### [facility] [address] [place] [address] Dr. Belkys Fajardo NEUT # 11.6 103/ul Critically high 1.4-6.5 [facility] Comment on above: Performed By: #### A FPTET #### [facility] [address] [place] [address] Dr. Belkys Fajardo Neutrophils/100 WBC (Bld) 76.4 % Critically high 43.0-75.0 [facility] Comment on above: Performed By: #### A FPTET #### [facility] [address] [place] [address] Dr. Belkys Fajardo Platelet mean volume (Bld) [Entitic vol] 10.2 fL Normal 9.5-13.5 [facility] Comment on above: Performed By: #### A FPTET #### [facility] [address] [place] [address] Dr. Belkys Fajardo PLT 235 103/ul Normal 150-450 [facility] Comment on above: Performed By: #### A FPTET #### [facility] [address] [place] [address] Dr. Belkys Fajardo RBC 2.88 106/ul Critically low 4.20-5.40 [facility] Comment on above: Performed By: #### A FPTET #### [facility] [address] [place] [address] Dr. Belkys Fajardo WBC 15.2 103/ul Critically high 4.0-11.0 [facility] Comment on above: Performed By: #### A FPTET #### [facility] [address] [place] [address] Dr. Belkys Fajardo CBC AUTO DIFFon 01-23-2022 BASO # 0.1 103/ul Normal 0.0-0.1 [facility] Comment on above: Performed By: #### A FPTET #### [facility] [address] [place] [address] Dr. Belkys Fajardo Basophils/100 WBC (Bld) 0.4 % Normal 0.2-2.0 [facility] Comment on above: Performed By: #### A FPTET #### [facility] [address] [place] [address] Dr. Belkys Fajardo EO # 0.1 103/ul Normal 0.0-0.7 [facility] Comment on above: Performed By: #### A FPTET #### [facility] [address] [place] [address] Dr. Belkys Fajardo Eosinophils/100 WBC (Bld) 0.5 % Critically low 0.9-7.0 [facility] Comment on above: Performed By: #### A FPTET #### [facility] [address] [place] [address] Dr. Belkys Fajardo Erythrocyte distribution width (RBC) [Ratio] 13.8 % Normal 11.0-15.0 [facility] Comment on above: Performed By: #### A FPTET #### [facility] [address] [place] [address] Dr. Belkys Fajardo Hematocrit (Bld) [Volume fraction] 32.5 % Critically low 36.0-48.0 [facility] Comment on above: Performed By: #### A FPTET #### [facility] [address] [place] [address] Dr. Belkys Fajardo Hemoglobin (Bld) [Mass/Vol] 11.0 g/dL Critically low 12.0-16.0 [facility] Comment on above: Performed By: #### A FPTET #### [facility] [address] [place] [address] Dr. Belkys Fajardo IG # 0.31 10e3/ul Critically high 0.00-0.03 [facility] Comment on above: Performed By: #### A FPTET #### [facility] [address] [place] [address] Dr. Belkys Fajardo IG % 1.6 % Critically high 0.0-0.5 [facility] Comment on above: Performed By: #### A FPTET #### [facility] [address] [place] [address] Dr. Belkys Fajardo LYMPH # 2.0 103/ul Normal 1.2-3.8 [facility] Comment on above: Performed By: #### A FPTET #### [facility] [address] [place] [address] Dr. Belkys Fajardo Lymphocytes/100 WBC (Bld) 10.2 % Critically low 20.5-60.0 [facility] Comment on above: Performed By: #### A FPTET #### [facility] [address] [place] [address] Dr. Belkys Fajardo MANUAL DIFF REQ NO Normal [facility] Comment on above: Performed By: #### A FPTET #### [facility] [address] [place] [address] Dr. Belkys Fajardo MCH (RBC) [Entitic mass] 28.4 pg Normal 26.7-34.0 [facility] Comment on above: Performed By: #### A FPTET #### [facility] [address] [place] [address] Dr. Belkys Fajardo MCHC (RBC) [Mass/Vol] 33.8 g/dL Normal 29.9-35.2 [facility] Comment on above: Performed By: #### A FPTET #### [facility] [address] [place] [address] Dr. Belkys Fajardo MCV (RBC) [Entitic vol] 83.8 fL Normal 81.0-99.0 [facility] Comment on above: Performed By: #### A FPTET #### [facility] [address] [place] [address] Dr. Belkys Fajardo MONO # 0.9 103/ul Critically high 0.3-0.8 [facility] Comment on above: Performed By: #### A FPTET #### [facility] [address] [place] [address] Dr. Belkys Fajardo Monocytes/100 WBC (Bld) 4.8 % Normal 1.7-12.0 [facility] Comment on above: Performed By: #### A FPTET #### [facility] [address] [place] [address] Dr. Belkys Fajardo NEUT # 16.0 103/ul Critically high 1.4-6.5 [facility] Comment on above: Performed By: #### A FPTET #### [facility] [address] [place] [address] Dr. Belkys Fajardo Neutrophils/100 WBC (Bld) 82.5 % Critically high 43.0-75.0 [facility] Comment on above: Performed By: #### A FPTET #### [facility] [address] [place] [address] Dr. Belkys Fajardo Platelet mean volume (Bld) [Entitic vol] 10.1 fL Normal 9.5-13.5 [facility] Comment on above: Performed By: #### A FPTET #### [facility] [address], [place] [address] Dr. Belkys Fajardo PLT 301 103/ul Normal 150-450 [facility] Comment on above: Performed By: #### A FPTET #### [facility] [address], [place] [address] Dr. Belkys Fajardo RBC 3.88 106/ul Critically low 4.20-5.40 [facility] Comment on above: Performed By: #### A FPTET #### [facility] [address] [address] [address] Belkys Fajardo WBC 19.3 103/ul Critically high 4.0-11.0 [facility] Comment on above: Performed By: #### A FPTET #### [facility] [address] [address] [address] Belkys Fajardo CULTURE URINEon 01-23-2022 CULTURE URINE Culture Observations : LIGHT GROWTH OF MIXED GENITAL HEYDI. NO POTENTIAL PATHOGENS SEEN. Normal [facility] Comment on above: Performed By: #### U ACSIND, UMICRO #### [facility] [address], [place] [address] Dr. Belkys Fajardo Covid-19 PCR ([facility])on 12-27 SARS-CoV-2 (COVID-19) RNA DEVIN+probe Ql (Unsp spec) Not detected Normal NOT DETECTED [facility] Comment on above: Result Comment: When diagnostic [...] for this test is supported by the Rib Puller of Health and Human Service's declaration that [...] used). Performed By: #### C VDTBH #### [facility] [address] [place] [address] Dr. Belkys Fajardo DRUG SCREEN RAPID (URINE)on 01-23-2022 AMP Negative Normal NEGATIVE [facility] Comment on above: Performed By: #### A FPTET #### [facility] [address] [place] [address] Dr. Belkys Fajardo BAR Negative Normal NEGATIVE [facility] Comment on above: Performed By: #### A FPTET #### [facility] [address] [place] [address] Dr. Belkys Fajardo BUP Negative Normal NEGATIVE [facility] Comment on above: Performed By: #### A FPTET #### [facility] [address] [place] [address] Dr. Belkys Fajardo BZO Negative Normal NEGATIVE [facility] Comment on above: Performed By: #### A FPTET #### [facility] [address] [place] [address] Dr. Belkys Fajardo VALENCIA Negative Normal NEGATIVE [facility] Comment on above: Performed By: #### A FPTET #### [facility] [address] [place] [address] Dr. Belkys Fajardo CUT-OFFS SEE BELOW Normal [facility] Comment on above: Result Comment: AMP (Amphetamine): 500ng/mL, BAR (Barbituates): 200 ng/mL, BZO (Benzodiazepines): 150 ng/mL, BUP (Buprenorphine): 10 ng/mL, VALENCIA (Cocaine): 150 ng/mL, mAMP (Methamphetamine): 500 ng/mL, MTD (Methadone): 200 ng/mL, OPI (Opiates): 100 ng/mL, OXY (Oxycodone): 100 ng/mL, PCP (Phencyclidine): 25 ng/mL, PPX (Propoxyphene): 300 ng/mL, THC (Cannabinoids): 50 ng/mL, TCA (Trycyclic Antidepressants): 300 ng/mL Performed By: #### A FPTET #### [facility] [address] [place] [address] Dr. Belkys Fajardo DRUG CUT HEADER DRUG CLASS TEST SYSTEM CUT-OFF CONCENTRATIONS ARE FOLLOWS: Normal [facility] Comment on above: Performed By: #### A FPTET #### [facility] [address] [place] [address] Dr. Belkys Fajardo mAMP Negative Normal NEGATIVE [facility] Comment on above: Performed By: #### A FPTET #### [facility] [address] [address] [address] Belkys Fajardo MTD Negative Normal NEGATIVE [facility] Comment on above: Performed By: #### A FPTET #### [facility] [address] [place] [address] Dr. Belkys Fajardo OPI Negative Normal NEGATIVE [facility] Comment on above: Performed By: #### A FPTET #### [facility] [address] [place] [address] Dr. Belkys Fajardo OXY Negative Normal NEGATIVE [facility] Comment on above: Performed By: #### A FPTET #### [facility] [address] [place] [address] Dr. Belkys Fajardo PCP Negative Normal NEGATIVE [facility] Comment on above: Performed By: #### A FPTET #### [facility] [address] [place] [address] Dr. Belkys Fajardo PPX Negative Normal NEGATIVE [facility] Comment on above: Performed By: #### A FPTET #### [facility] [address] [place] [address] Dr. Belkys Fajardo TCA Negative Normal NEGATIVE [facility] Comment on above: Performed By: #### A FPTET #### [facility] [address] [address] [address] Belkys Fajardo THC Negative Normal NEGATIVE [facility] Comment on above: Performed By: #### A FPTET #### [facility] [address] [place] [address] Dr. Belkys Fajardo TYPE AND SCREENon 01-23-2022 TYPE AND SCREEN Negative Normal [facility] Comment on above: Performed By: #### U ACSIND, UMICRO #### [facility] [address] [address] [address] Belkys Fajardo UA (CLEAN/CATCH) METAL LOADER/MICRO I F IND.on 01-23-2022 Bilirubin Ql (U) Negative Normal NEGATIVE [facility] Comment on above: Performed By: #### U ACSIND, UMICRO #### [facility] [address] [address] [address] Belkys Fajardo Clarity (U) CLEAR Normal CLEAR [facility] Comment on above: Performed By: #### U ACSIND, UMICRO #### [facility] [address] [address] [address] Belkys Fajardo Color (U) LT. YELLOW Normal YELLOW [facility] Comment on above: Performed By: #### U ACSIND, UMICRO #### [facility] [address] [address] [address] Belkys Fajardo Glucose Ql (U) Negative Normal NEGATIVE [facility] Comment on above: Performed By: #### U ACSIND, UMICRO #### [facility] [address] [address] [address] Belkys Fajardo Hemoglobin Ql (U) TRACE-INTACT Abnormal NEGATIVE [facility] Comment on above: Performed By: #### U ACSIND, UMICRO #### [facility] [address] [address] [address] Belkys Fajardo Ketones Ql (U) Negative Normal NEGATIVE [facility] Comment on above: Performed By: #### U ACSIND, UMICRO #### [facility] [address] [address] [address] Belkys Fajardo LEUKOCYTES MODERATE Abnormal NEGATIVE [facility] Comment on above: Performed By: #### U ACSIND, UMICRO #### [facility] [address] [address] [address] Belkys Fajardo Nitrite Ql (U) Negative Normal NEGATIVE [facility] Comment on above: Performed By: #### U ACSIND, UMICRO #### [facility] [address] [address] [address] Belkys Fajardo pH (U) 6.5 [pH] Normal 5-9 [facility] Comment on above: Performed By: #### U ACSTAMELA UMICRO #### [facility] [address] [place] [address] Dr. Belkys Fajardo SPEC GRAVITY 1.015 Normal 1.005-<=1.025 [facility] Comment on above: Performed By: #### U ACSTAMELA UMICRO #### [facility] [address] [place] [address] Dr. Belkys Fajardo UA PROTEIN Negative Normal NEGATIVE/ TRACE [facility] Comment on above: Performed By: #### U ACSTAMELA UMICRO #### [facility] [address] [place] [address] Dr. Belkys Fajardo UR MICRO IND INDICATED Normal [facility] [place] Comment on above: Performed By: #### U ACSTAMELA UMICRO #### [facility] [place] [address] [place] [address] Dr. Belkys Fajardo Urobilinogen Qn (U) 0.2 {Jakob'U}/dL Normal 0.2 - 1. 0 [facility] [place] Comment on above: Performed By: #### U ACSTAMELA UMICRO #### [facility] [place] [facility] [address] [place] [address] Dr. Belkys Fajrado URINE MICROSCOPIC ONLYon BACTERIA SMALL Abnormal NONE SEEN The [facility] [place] Comment on above: Performed By: #### U ACSTAMELA UMICRO #### [facility] [place] [facility] [address] [place] [address] Dr. Belkys Fajardo Bacteria identified Cx Nom (U) INDICATED Normal [facility] [place] Comment on above: Performed By: #### U ACSTAMELA UMICRO #### [facility] [place] [facility] [address] [place] [address] Dr. Belkys Fajardo CAST NONE SEEN Normal NONE SEEN The [facility] [place] Comment on above: Performed By: #### U ACSTAMELA UMICRO #### [facility] [place] [facility] [address] [place] [address] Dr. Belkys Fajardo Crystals LM Nom (Urine sed) NONE SEEN Normal NONE SEEN The [facility] [place] Comment on above: Performed By: #### U ACSIND, UMICRO #### [facility] [place] [facility] [address] [address] [address] Belkys Fajardo Epithelial cells LM Ql (Urine sed) FEW Abnormal NONE SEEN /RARE The [facility] [place] Comment on above: Performed By: #### U ACSIND, UMICRO #### [facility] [place] [facility] [address] [address] [address] Belkys Fajardo MUCOUS NONE SEEN Normal NONE SEEN The [facility] [place] Comment on above: Performed By: #### U ACSIND, UMICRO #### [facility] [place] [facility] [address] [address] [address] Belkys Fajardo RBC NONE SEEN Abnormal 0-2 The [facility] [place] Comment on above: Performed By: #### U ACSIND, UMICRO #### [facility] [place] [facility] [address] [address] [address] Belkys Fajardo WBC 5-10 Abnormal NONE SEEN The [facility] [place] Comment on above: Performed By: #### U ACSIND, UMICRO #### [facility] [place] [facility] [address] [address] [address] Belkys Fajardo US PREG GROWTHon 01-12-2022 [...] by: YOGI BLACK Date: 2022-01-12 21:15 Normal [facility] GROUP B STREP CULTUREon 12-26 S. agalactiae Ag Ql (Unsp spec) Culture Observations: NEGATIVE FOR GROUP B STREPTOCOCCUS. Normal The [facility] [place] Comment on above: Performed By: #### G BSCX #### [facility] [place] [facility] [address] [address] [address] Belkys Fajardo GTT 3 HR PREGon 12-11-2021 Glucose [Mass/Vol] 91 mg/dL Normal 74-106 [facility] Comment on above: Performed By: #### G TT3P #### [facility] [place] [facility] [address] [address] [address] Belkys Fajardo Glucose [Mass/Vol] 172 mg/dL Normal [facility] Comment on above: Performed By: #### G TT3P #### [facility] [place] [facility] [address] [address] [address] Belkys Fajardo Glucose [Mass/Vol] 148 mg/dL Normal [facility] Comment on above: Performed By: #### G TT3P #### [facility] [place] [facility] [address] [address] [address] Belkys Fajardo Glucose [Mass/Vol] 58 mg/dL Normal [facility] Comment on above: Performed By: #### G TT3P #### [facility] [place] [facility] [address] [address] [address] Belkys Fajardo US PREG GROWTHon 12-08-2021 [...] growth detailed above. Electronically authenticated by: YOGI LEOBARDOGOKUL Date: 2021-12-08 16:52 Normal The [facility] [place] GLUCOSE - 1HRon 11-12-2021 Glucose [Mass/Vol] 143 mg/dL Critically high 74-106 [facility] Comment on above: Performed By: #### U ACSIND, UMICRO #### [facility] [place] [facility] [address] [place] [address] Dr. Belkys Fajardo HEMOGRAM AND PLATELon 2021 Hematocrit (Bld) [Volume fraction] 31.7 % Critically low 36.0-48.0 [facility] Comment on above: Performed By: #### A FPTET #### [facility] [place] [facility] [address] [place] [address] Dr. Belkys Fajardo Hemoglobin (Bld) [Mass/Vol] 10.4 g/dL Critically low 12.0-16.0 The [facility] [place] Comment on above: Performed By: #### A FPTET #### [facility] [place] [facility] [address] [place] [address] Dr. Belkys Fajardo MCH (RBC) [Entitic mass] 28.8 pg Normal 26.7-34.0 [facility] Comment on above: Performed By: #### A FPTET #### [facility] [place] [facility] [address] [place] [address] Dr. Belkys Fajardo MCHC (RBC) [Mass/Vol] 32.8 g/dL Normal 29.9-35.2 [facility] [place] Comment on above: Performed By: #### A FPTET #### [facility] [place] [facility] [address] [place] [address] Dr. Belkys Fajardo MCV (RBC) [Entitic vol] 87.8 fL Normal 81.0-99.0 [facility] Comment on above: Performed By: #### A FPTET #### [facility] [place] [facility] [address] [place] [address] Dr. Belkys Fajardo PLT 261 103/ul Normal 150-450 [facility] Comment on above: Performed By: #### A FPTET #### [facility] [place] [facility] [address] [place], [place] [address] Dr. Belkys Fajardo RBC 3.61 106/ul Critically low 4.20-5.40 [facility] Comment on above: Performed By: #### A FPTET #### [facility] [place] [facility] [address] [place], [place] [address] Dr. Belkys Fajardo WBC 11.5 103/ul Critically high 4.0-11.0 [facility] Comment on above: Performed By: #### A FPTET #### [facility] [place] [facility] [address] [address] [address] Belkys Fajardo US PREG PLACENTAon 2 [...] by: YOGI BLACK Date: 2021-11-10 21:07 Normal [facility] US PREG PLACENTAon 2 US PREG PLACENTA EXAMINATION: US PREG PLACENTA HISTORY: Low lying placenta COMPARISON: Ultrasound anatomy 09/16/2021 FINDINGS: PLACENTA: Posterior with lower margin 2.5 cm from os. CERVIX LENGTH: 4.4 cm, closed. HEART RATE: 157 bpm OTHER: None. IMPRESSION: 1. Low-lying posterior placenta; no appreciable change compared to prior study. Electronically authenticated by: YOGI BLACK Date: 2021-10-14 19:56 Normal [facility] US PREG ANATOMY SINGLEon US PREG [...] YOGI BLACK Date: 2021-09-16 16:54 Normal [facility] [place] AFP TETRA PROFILE (MATERNAL) on 09-06-2021 PDF . Normal [facility] [place] Comment on above: Performed By: #### A FPTET #### [facility] [place] [facility] [address] [address] [address] Belkys Fajardo AFP MoM 0.86 Normal [facility] [place] Comment on above: Performed By: #### A FPTET #### [facility] [place] [facility] [address] [address] [address] Belkys Fajardo AFP Value 39.7 ng/mL Normal [facility] Comment on above: Performed By: #### A FPTET #### [facility] [place] [facility] [address] [address] [address] Blekys Fajardo Comment Comment Normal [facility] Comment on above: Result Comment: Geremias Greer, Ph.D., [facility] Director . References: Available Upon Request. . Multiples Of Median Cutoffs Abbreviation Definitions For AFP Elevations IDD- Insulin Dep Diabetes Granados 2.5 Black 2.8 OSBR- Open Spina Bifida IDD 2.0 Twins 4.5 Risk DSR Cutoff 1:270 DSR- Down Syndrome Risk T18 Cutoff 1:100 T18- Trisomy 18 . Down Syndrome and Trisomy 18 screening are considered Investigational . For further inquiries contact [facility] at [phone]. Performed By: #### A FPTET #### [facility] [place] [facility] [address] [address] [address] Belkys Fajardo MONIE MoM 0.77 Normal [facility] Comment on above: Performed By: #### A FPTET #### [facility] [place] [facility] [address] [place] [address] Dr. Belkys Fajardo MONIE Value 113.50 pg/mL Normal [facility] Comment on above: Performed By: #### A FPTET #### [facility] [place] [facility] [address] [place] [address] Dr. Belkys Fajardo DSR (By Age) 1 IN 765 Normal [facility] Comment on above: Performed By: #### A FPTET #### [facility] [place] [facility] [address] [place] [address] Dr. Belkys Fajardo DSR (Second Trimester) 1 [place] [address] [facility] Comment on above: Performed By: #### A FPTET #### [facility] [place] [facility] [address] [place] [address] Dr. Belkys Doe. [age] on Collection Date 18.7 WEEKS Normal [facility] Comment on above: Performed By: #### A FPTET #### [facility] [place] [facility] [address] [place] [address] Dr. Belkys Pablo. Age Based On LMP [facility] Comment on above: Result Comment: 03/30 Performed By: #### A FPTET #### [facility] [place] [facility] [address] [place] [address] Dr. Belkys Fajardo hCG MoM 0.78 Normal [facility] Comment on above: Performed By: #### A FPTET #### [facility] [place] [facility] [address] [place] [address] [place] [address] m[IU]/mL Normal [facility] Comment on above: Performed By: #### A FPTET #### [facility] [place] [facility] [address] [place] [address] Dr. Belkys Fajardo Insulin Dep Diabetes No Normal [facility] Comment on above: Performed By: #### A FPTET #### [facility] [place] [facility] [address] [place] [address] Dr. Belkys Fajardo Interpretation Comment Normal [facility] Comment on above: Result Comment: Inte rpretation: [...] identifies 60% of Trisomy 18 pregnancies. The [employer] recommends amniocentesis be offered to women age 35 and older. Recalculations are not recommended when gestational dating by LMP and ultrasound are within 10 days. Performed By: #### A FPTET #### [facility] [place] [facility] [address] [place] [address] Dr. Belkys Fajardo [age] Normal [facility] Comment on above: Performed By: #### A FPTET #### [facility] [place] [facility] [address] [place] [address] Dr. Belkys Fajardo Multiple Gestation No Normal [facility] Comment on above: Performed By: #### A FPTET #### [facility] [place] [facility] [address] [place] [address] Dr. Belkys Fajardo OSBR [place] 1 [place] [address] Normal [facility] Comment on above: Performed By: #### A FPTET #### [facility] [place] [facility] [address] [place] [address] Dr. Belkys Fajardo Race Normal [facility] Comment on above: Performed By: #### A FPTET #### [facility] [place] [facility] [address] [place] [address] Dr. Belkys Fajardo Results Report Normal [facility] Comment on above: Performed By: #### A FPTET #### [facility] [place] [facility] [address] [place] [address] Dr. Belkys Fajardo T18 (By Age) 1:2981 Normal [facility] Comment on above: Performed By: #### A FPTET #### [facility] [place] [facility] [address] [place] [address] Dr. Belkys Fajardo T18 Risk Not increased [facility] Comment on above: Performed By: #### A FPTET #### [facility] [place] [facility] [address] [place] [address] Dr. Belkys Fajardo Test Results: Negative Normal [facility] Comment on above: Performed By: #### A FPTET #### [facility] [place] [facility] [address] [place] [address] Dr. Belkys Fajardo uE3 MoM 1.43 [facility] Comment on above: Performed By: #### A FPTET #### [facility] [place] [facility] [address] [place] [address] Dr. Belkys Fajardo uE3 Value 2.26 ng/mL [facility] Comment on above: Performed By: #### A FPTET #### [facility] [place] [facility] [address] [place] [address] Dr. Belkys Fajardo PAP ACOG PANEL 2: 21 to 29on 08-24-2021 . . Normal [facility] Comment on above: Result Comment: Perf ormed at: [facility] Performed By: #### [id number] #### [facility] [place] [facility] [address] [place] [address] Dr. Belkys Fajardo Age Gdln ACOG Testing - [facility] Comment on above: Performed By: #### [id number] #### [facility] [place] [facility] [address] [place] [address] Dr. Belkys Fajardo DIAGNOSIS: Comment Normal [facility] Comment on above: Result Comment: NEGA TIVE FOR INTRAEPITHELIAL LESION OR MALIGNANCY. Performed at: [facility] Performed By: #### [id number] #### [facility] [place] [facility] [address] [place] [address] Dr. Belkys Fajardo Methodology: Comment [facility] Comment on above: Result Comment: This liquid based ThinPrep(R) pap test was screened with the use of an image guided system. Performed at: [facility] Performed By: #### [id number] #### [facility] [place] [facility] [address] [place] [address] Dr. Belkys Fajardo Note: Comment Normal [facility] Comment on above: Result Comment: The Pap smear is a screening test designed to aid in the detection of premalignant and malignant conditions of the uterine cervix. It is not a diagnostic procedure and should not be used as the sole means of detecting cervical cancer. Both false-positive and false-negative reports do occur. . Performed at: [facility] Performed By: #### [id number] #### [facility] [place] [facility] [address] [place] [address] Dr. Belkys Fajardo Performed by: Comment Normal [facility] Comment on above: Result Comment: Vicky Avila, Shot Peening Operator (ASCP) Performed at: [facility] Performed By: #### [id number] #### [facility] [place] [facility] [address] [place] [address] Dr. Belkys Fajardo Reflex Criteria: Comment Normal [facility] Comment on above: Result Comment: The HPV DNA reflex criteria were not met with this specimen result therefore, no HPV testing was performed. . Performed at: [facility] Performed By: #### [id number] #### [facility] [place] [facility] [address] [place] [address] Dr. Belkys Fajardo Specimen adequacy: Comment Normal [facility] Comment on above: Result Comment: Sati sfactory for evaluation. No endocervical component is identified. Performed at: [facility] Performed By: #### [id number] #### [facility] [place] [facility] [address] [place] [address] Dr. Belkys Fajardo CBC AUTO DIFFon 08-22-2021 BASO # 0.0 103/ul Normal 0.0-0.1 [facility] Comment on above: Performed By: #### C BC #### [facility] [place] [facility] [address] [address] [address] Belkys Fajardo Basophils/100 WBC (Bld) 0.2 % Normal 0.2-2.0 [facility] Comment on above: Performed By: #### C BC #### [facility] [place] [facility] [address] [place] [address] Dr. Belkys Fajardo EO # 0.2 103/ul Normal 0.0-0.7 [facility] Comment on above: Performed By: #### C BC #### [facility] [place] [facility] [address] [place] [address] Dr. Belkys Fajardo Eosinophils/100 WBC (Bld) 1.9 % Normal 0.9-7.0 [facility] Comment on above: Performed By: #### C BC #### [facility] [place] [facility] [address] [place] [address] Dr. Belkys Fajardo Erythrocyte distribution width (RBC) [Ratio] 13.4 % Normal 11.0-15.0 [facility] Comment on above: Performed By: #### C BC #### [facility] [place] [facility] [address] [place] [address] Dr. Belkys Fajardo Hematocrit (Bld) [Volume fraction] 32.7 % Critically low 36.0-48.0 [facility] Comment on above: Performed By: #### C BC #### [facility] [place] [facility] [address] [place] [address] Dr. Belkys Fajardo Hemoglobin (Bld) [Mass/Vol] 11.0 g/dL Critically low 12.0-16.0 [facility] Comment on above: Performed By: #### C BC #### [facility] [place] [facility] [address] [place] [address] Dr. Belkys Fajardo IG # 0.05 10e3/ul Critically high 0.00-0.03 [facility] Comment on above: Performed By: #### C BC #### [facility] [place] [facility] [address] [place] [address] Dr. Belkys Fajardo IG % 0.5 % Normal 0.0-0.5 [facility] Comment on above: Performed By: #### C BC #### [facility] [place] [facility] [address] [place] [address] Dr. Belkys Fajardo LYMPH # 2.3 103/ul Normal 1.2-3.8 [facility] [place] Comment on above: Performed By: #### C BC #### [facility] [place] [address] [place] [address] Dr. Belkys Fajardo Lymphocytes/100 WBC (Bld) 22.4 % Normal 20.5-60.0 [facility] Comment on above: Performed By: #### C BC #### [facility] [place] [facility] [address] [place] [address] Dr. Belkys Fajardo MANUAL DIFF REQ NO Normal [facility] Comment on above: Performed By: #### C BC #### [facility] [place] [facility] [address] [place] [address] Dr. Belkys Fajardo MCH (RBC) [Entitic mass] 29.3 pg Normal 26.7-34.0 [facility] Comment on above: Performed By: #### C BC #### [facility] [place] [facility] [address] [place] [address] Dr. Belkys Fajardo MCHC (RBC) [Mass/Vol] 33.6 g/dL Normal 29.9-35.2 [facility] Comment on above: Performed By: #### C BC #### [facility] [place] [facility] [address] [place] [address] Dr. Belkys Fajardo MCV (RBC) [Entitic vol] 87.2 fL Normal 81.0-99.0 [facility] Comment on above: Performed By: #### C BC #### [facility] [place] [facility] [address] [place] [address] Dr. Belkys Fajardo MONO # 0.6 103/ul Normal 0.3-0.8 [facility] [place] Comment on above: Performed By: #### C BC #### [facility] [place] [facility] [address] [place] [address] Dr. Belkys Fajardo Monocytes/100 WBC (Bld) 5.5 % Normal 1.7-12.0 [facility] Comment on above: Performed By: #### C BC #### [facility] [place] [address] [place] [address] Dr. Belkys Fajardo NEUT # 7.1 103/ul Critically high 1.4-6.5 The [facility] Comment on above: Performed By: #### C BC #### [facility] [place] [address] [place] [address] Dr. Belkys Fajardo Neutrophils/100 WBC (Bld) 69.5 % Normal 43.0-75.0 [facility] [place] Comment on above: Performed By: #### C BC #### [facility] [place] [facility] [address] [place] [address] Dr. Belkys Fajardo Platelet mean volume (Bld) [Entitic vol] 10.3 fL Normal 9.5-13.5 [facility] [place] Comment on above: Performed By: #### C BC #### [facility] [place] [facility] [address] [place] [address] Dr. Belkys Fajardo PLT 258 103/ul Normal 150-450 [facility] [place] Comment on above: Performed By: #### C BC #### [facility] [place] [facility] [address] [place] [address] Dr. Belkys Fajardo RBC 3.75 106/ul Critically low 4.20-5.40 The [facility] Comment on above: Performed By: #### C BC #### [facility] [place] [facility] [address] [place] [address] Dr. Belkys Fajardo WBC 10.2 103/ul Normal 4.0-11.0 [facility] [place] Comment on above: Performed By: #### C BC #### [facility] [place] [facility] [address] [place] [address] Dr. Belkys Fajardo CTA CHEST WO W [...] ROSARIO HERNANDEZ Date: 2021-08-22 08:31 Normal [facility] [place] Covid-19 PCR (CVDTBH)on 07-27 SARS-CoV-2 (COVID-19) RNA DEVIN+probe Ql (Unsp spec) Not detected Normal NOT DETECTED [facility] [place] Comment on above: Result Comment: When diagnostic [...] for this test is supported by the [employer] of [employer] and Human Service's declaration that [...] used). Performed By: #### C VDTBH #### [facility] [place] [facility] [address] [place] [address] Dr. Belkys Fajardo PROF 14(COMP METB)on 022 Albumin [Mass/Vol] 3.0 g/dL Critically low 3.4-5.0 Th e [facility] [place] Comment on above: Performed By: #### A FPTET #### [facility] [place] [facility] [address] [address] [address] Belkys Fajardo Albumin/Globulin [Mass ratio] 0.8 {ratio} Normal [facility] Comment on above: Performed By: #### A FPTET #### [facility] [place] [facility] [address] [place] [address] Dr. Belkys Fajardo ALP [Catalytic activity/Vol] 52 U/L Normal 46-116 [facility] Comment on above: Performed By: #### A FPTET #### [facility] [place] [facility] [address] [place] [address] Dr. Belkys Fajardo ALT [Catalytic activity/Vol] 32 U/L Normal 14-59 [facility] Comment on above: Performed By: #### A FPTET #### [facility] [place] [facility] [address] [place] [address] Dr. Belkys Fajardo Anion gap [Moles/Vol] 12.8 mmol/L Normal [facility] Comment on above: Performed By: #### A FPTET #### [facility] [place] [facility] [address] [place] [address] Dr. Belkys Fajardo AST [Catalytic activity/Vol] 17 U/L Normal 15-37 [facility] Comment on above: Performed By: #### A FPTET #### [facility] [place] [facility] [address] [place] [address] Dr. Belkys Fajardo Bilirubin [Mass/Vol] 0.3 mg/dL Normal 0.2-1.0 [facility] Comment on above: Performed By: #### A FPTET #### [facility] [place] [address] [place] [address] Dr. Belkys Fajardo Calcium [Mass/Vol] 8.5 mg/dL Normal 8.5-10.1 [facility] Comment on above: Performed By: #### A FPTET #### [facility] [place] [address] [place] [address] Dr. Belkys Fajardo Chloride [Moles/Vol] 103 mmol/L Normal 98-107 [facility] Comment on above: Performed By: #### A FPTET #### [facility] [place] [address] [place] [address] Dr. Belkys Fajardo CO2 [Moles/Vol] 24.7 mmol/L Normal 21.0-32.0 [facility] Comment on above: Performed By: #### A FPTET #### [facility] [place] [address] [place] [address] Dr. Belkys Fajardo Creatinine [Mass/Vol] 0.46 mg/dL Critically low 0.55-1.02 [facility] Comment on above: Performed By: #### A FPTET #### [facility] [place] [address] [address] [address] Belkys Fajardo EGFR-AF TURKS AND CAICOS ISLANDER >60 Normal >=60 [facility] Comment on above: Performed By: #### A FPTET #### [facility] [place] [address] [place] [address] Dr. Belkys Fajardo EGFR-NON AF TURKS AND CAICOS ISLANDER >60 Normal >=60 [facility] Comment on above: Performed By: #### A FPTET #### [facility] [place] [address] [place] [address] Dr. Belkys Fajardo Globulin (S) [Mass/Vol] 3.7 g/dL Normal [facility] Comment on above: Performed By: #### A FPTET #### [facility] [place] [address] [address] [address] Belkys Fajardo Glucose [Mass/Vol] 84 mg/dL Normal 74-106 [facility] Comment on above: Performed By: #### A FPTET #### [facility] [place] [address] [place] [address] Dr. Belkys Fajardo Potassium [Moles/Vol] 3.5 mmol/L Normal 3.5-5.1 [facility] [place] Comment on above: Performed By: #### A FPTET #### [facility] [place] [address] [place] [address] Dr. Belkys Fajardo Protein [Mass/Vol] 6.7 g/dL Normal 6.4-8.2 [facility] Comment on above: Performed By: #### A FPTET #### [facility] [place] [address] [place] [address] Dr. Belkys Fajardo Sodium [Moles/Vol] 137 mmol/L Normal 136-145 [facility] Comment on above: Performed By: #### A FPTET #### [facility] [place] [address] [place] [address] Dr. Belkys Fajardo Urea nitrogen [Mass/Vol] 7.0 mg/dL Normal 7.0-18.0 [facility] Comment on above: Performed By: #### A FPTET #### [facility] [place] [address] [place] [address] Dr. Belkys Fajardo Urea nitrogen/Creatinine [Mass ratio] 15.2 mg/mg Normal [facility] Comment on above: Performed By: #### A FPTET #### [facility] [address] [place] [address] Dr. Belkys Fajardo TROPONIN, HIGH SENSITIVITYon 08-22-2021 HSTROP <4.0 Normal 4.0-51.3 [facility] Comment on above: Result Comment: CUT- OFF POINTS HAVE BEEN ESTABLISHED BASED ON THE FOURTH UNIVERSAL DEFINITIONS OF MYOCARDIAL INFARCTION. THE UPPER REFERENCE LIMIT (URL) OF TROPONIN, DEFINED THE 99TH PERCENTILE OF cTnI DISTRIBUTION IN A REFERENCE POPULATION, HAS BEEN CONFIRMED THE DECISION THRESHOLD FOR VA DIAGNOSIS. Performed By: #### A FPTET #### [facility] [address] [place] [address] Dr. Belkys Fajardo CHLAMYDIA/GONOCOCCUS DEVIN (SW AB/URINE/PAPon 08-21-2021 Chlamydia trachomatis, DEVIN Negative Normal Negative [facility] Comment on above: Performed By: #### C T/NGNA #### [facility] [address] [place] [address] Dr. Belkys Fajardo Neisseria gonorrhoeae, DEVIN Negative Normal Negative [facility] Comment on above: Performed By: #### C T/NGNA #### [facility] [address] [place] [address] Dr. Belkys Fajardo VAGINITIS/VAGINOSIS DNA PROB Gab 08-20-2021 Lani species Negative Normal Negative [facility] Comment on above: Performed By: #### A FPTET #### [facility] [address] [place] [address] Dr. eBlkys Fajardo Gardnerella vaginalis Negative Normal Negative [facility] Comment on above: Performed By: #### A FPTET #### [facility] [address] [address] [address] Belkys Fajardo Trichomonas vaginalis Negative Normal Negative [facility] Comment on above: Performed By: #### A FPTET #### [facility] [address] [place], [place] [address] Dr. Belkys Fajardo Vital Signs Date Time Vital Sign Value Performing Clinician Facility 07-28-2022 10:15-0400 Body height 170.18 cm Nick Ball Other [facility] Other 07-28-2022 10:15-0400 Body mass index (BMI) [Ratio] 27.81 kg/m2 Nick Ball Other [facility] Other 07-28-2022 10:15-0400 Body weight 80.56 kg Nick Ball Other [facility] Other 07-28-2022 10:15-0400 Diastolic blood pressure 75 mm[Hg] Nick Ball Other [facility] Other 07-28-2022 10:15-0400 Systolic blood pressure 112 mm[Hg] Nick Ball Other [facility] Other 06-04-2022 17:00-0500 Body height 170.18 cm Cristal Guidry Other [facility] Other 06-04-2022 17:00-0500 Body mass index (BMI) [Ratio] 28.19 kg/m2 Cristal Guidry Other [facility] Other 06-04-2022 17:00-0500 Body temperature 97.4 [degF] Cristal Guidry Other [facility] Other 06-04-2022 17:00-0500 Body weight 81.65 kg Cristal Guidry Other [facility] Other 06-04-2022 17:00-0500 Respiratory rate 18 /min Cristal Guidry Other [facility] Other 06-04-2022 17:00-0500 SaO2% (BldA) [Mass fraction] 98 % Cristal Guidry Other [facility] Other 09-06-2021 02:05-0400 Body weight 77.[address] CHEYENNE MEADE . [facility] Comment on above: Performed By: #### AFPTET #### [facility] [address] [place] [address] Dr. Belkys Fajardo Encounters Encounter Date Encounter Type Care Provider Facility Start: 10-05-2023 End: 10-05-2023 ambulatory CHEYENNE WOLF Not Available Start: 09-21-2023 End: 09-21-2023 ambulatory CHEYENNE WOLF Not Available Start: 09-20-2023 End: 09-21-2023 Emergency department patient visit [facility] Start: 09-07-2023 End: 09-07-2023 ambulatory CHEYENNE WOLF Not Available Start: 08-24-2023 End: 08-24-2023 ambulatory CHEYENNE WOLF Not Available Start: 08-10-2023 End: 08-10-2023 ambulatory CHEYENNE WOLF Not Available Start: 07-28-2023 End: 07-30-2023 ambulatory [facility] Start: 07-26-2023 End: 07-26-2023 Emergency department patient visit [facility] Start: 07-25-2023 End: 07-27-2023 ambulatory [facility] Start: 07-13-2023 End: 07-13-2023 ambulatory CHEYENNE WOLF Not Available Start: 06-15-2023 End: 06-15-2023 ambulatory CHEYENNE WOLF Not Available Start: 05-16-2023 End: 05-16-2023 ambulatory CHEYENNE CESPEDESO Not Available Start: 04-08-2023 End: 04-08-2023 ambulatory CHEYENNE CESPEDESO Not Available Start: 07-28-2022 End: 07-28-2022 ambulatory Nick Leonardo Other [facility] Other Start: 07-28-2022 Office outpatient vi sit 15 minutes Nick Leonardo [facility] Start: 07-28-2022 Telephone encounter Nick Leonardo [facility] Start: 06-04-2022 End: 06-04-2022 ambulatory Cristal Guidry Other [facility] Other Start: 06-04-2022 Office outpatient ne w 20 minutes Cristal Guidry [facility] Start: 02-01-2022 End: 02-01-[address] CHEYENNE MEADE . Facility:[facility] Start: 01-23-2022 End: 01-27-2022 Evaluation and management of inpatient DR NICK ELONARDO Facility:[facility] Start: 01-12-2022 End: 01-13-[address] [...] End: 04-10-2021 Subsequent hospital visit by physician [facility] Office Copy [employer] [facility] EKG Comment on above: Palpitations; Post-COVID chronic palpitations; Shortness of breath; Lightheaded; Dizziness Procedures Date Procedure Procedure Detail Performing Clinician Start: 01-23-2022 Repair Rectum, Open Approach DR CHEYENNE MEDAE . Start: 01-23-2022 Delivery of Products of [...] 04/15/2021 Office Visit Cardiology Yogi Marquez MD [address] [place] [address] [facility] Start: 11-26-2020 Influenza vaccination Flu vaccine (# 1) [facility] Start: 10-08-2020 DTaP/Tdap/Td vaccine (7 - Td or Tdap) DTaP/Tdap/Td vaccine (7 - Td or Tdap) [facility] Start: 2013 Screening for malign ant neoplasm of cervix Pap smear [facility] Start: 10-30-2007 HIV screening HIV screen [facility] Start: 2004 Depression Screen Depression Screen [facility] Start: 1997 COVID-19 Vaccine (1) COVID-19 Vaccin e (1) [facility] Start: 1993 Varicella vaccine (1 of 2 - 2-dose childhood series) Varicella vaccine (1 of 2 - 2-dose childhood series) [facility] Start: 1992 Hepatitis C screening Hepatitis C sc reen [facility] Payers Date Payer Category Payer Unknown [id number] 1992 Unknown [id number] 2.16.84 0.1.561073.3.579.2.593 1992 Unknown [id number] 2.16.84 0.1.557420.3.579.2.593 1992 Unknown [id number] 2.16.84 0.1.037269.3.579.2.593 1992 Unknown [id number] 2.16.84 0.1.101788.3.579.2.593 1992 Unknown [id number] 2.16.84 0.1.318622.3.579.2.593 1992 Unknown [id number] 2.16.84 0.1.186349.3.579.2.593 1992 Unknown [id number] 2.16.84 0.1.464710.3.579.2.593 1992 Unknown [id number] 2.16.84 0.1.143776.3.579.2.593 1992 Unknown [id number] 2.16.84 0.1.607499.3.579.2.593 1992 Unknown [id number] 2.16.84 0.1.141681.3.579.2.593 1992 Unknown [id number] 2.16.84 0.1.471957.3.579.2.593 1992 Unknown [id number] 2.16.84 0.1.236909.3.579.2.593 1992 Unknown [id number] 2.16.84 0.1.399816.3.579.2.593 1992 Unknown [id number] 2.16.8 40.1.739509.3.579.2.173 1992 Unknown [id number] 2.16.8 40.1.369394.3.579.2.173 1992 Unknown [id number] 2.16.8 40.1.891765.3.579.2.173 1992 Unknown [id number] 2.16.8 40.1.135709.3.579.2.173 1992 Unknown [id number] 2.16.84 0.1.588359.3.579.2.9 1992 Unknown [id number] 2.16.84 0.1.811168.3.579.2.9 1992 Unknown [id number] 2.16.84 0.1.399535.3.579.2.1258 1992 Unknown [id number] 2.16.84 0.1.338441.3.579.2.1258 1992 Unknown [id number] 2.16.84 0.1.399510.3.579.2.1258 1992 Unknown [id number] 2.16.84 0.1.589342.3.579.2.9 1992 Unknown [id number] 2.16.84 0.1.177749.3.579.2.1258 1992 Unknown [id number] 2.16.84 0.1.903352.3.579.2.9 1992 Unknown [id number] 2.16.84 0.1.464491.3.579.2.1259 1959 Unknown [id number] Social History Date Type Detail Facility Start: 08-29-2014 Tobacco smoking status [facility] Never smoked tobacco [facility] Phone: Start: 08-29-2014 Tobacco use and exposure Smokeless tobacco non-user [facility] Phone: Start: 03-09-2021 Alcohol intake Current drinke r of alcohol (finding) [facility] Phone: Start: 03-09-2021 Alcohol intake [employer] Phone: Start: 08-29-2014 History SDOH Alcohol Comment occ. Janet Swyzzle Work Phone: Start: 1990 Sex Assigned At Not on file M araceli [employer] Phone: Sex Assigned At Sex Assigned At Bir th [facility] Other Evaluation note 07-28-2022 Note Date & [...] Monitor for now may not need treatment [facility] Other Evaluation note 06-04-2022 Note Date & [...] other viral communicable diseases (ICD-10 - Z20.828) [facility] Other Clinical Note 01-23-2022 Note Date & Type Note Facility 01-23-2022 Note OPERATIVE NOTE OPERATION DATE: 02/18/2022 PROCEDURE: Repair of fourth degree perineal laceration. PREOPERATIVE DIAGNOSIS: Fourth degree perineal laceration. POSTOPERATIVE DIAGNOSIS: Fourth degree perineal laceration. ANESTHESIA: Epidural SURGEON: Cheyenne Meade D.O. LIGHT COIL WINDER: BOBO Cole URINE OUTPUT: Yellow and clear. [...] taken to recovery in stable condition. [facility] Note 01-23-2022 Note Date & Type Note Facility 01-23-2022 Note OP Note OPERATION DATE: 01/23/2022 PROCEDURE: Repair of fourth degree perineal laceration. PREOPERATIVE DIAGNOSIS: Fourth degree perineal laceration. POSTOPERATIVE DIAGNOSIS: Fourth degree perineal laceration. ANESTHESIA: Epidural SURGEON: Cheyenne Meade D.O. LIGHT COIL WINDER: BOBO Cole URINE OUTPUT: Yellow and clear. [...] taken to recovery in stable condition. [facility] Note 01-23-2022 Note Date & Type Note Facility 01-23-2022 Note OPERATIVE NOTE OPERATION DATE: 02/10/2022 PROCEDURE: Repair of fourth degree laceration. PREOPERATIVE DIAGNOSIS: Fourth degree laceration. POSTOPERATIVE DIAGNOSIS: Fourth degree laceration. ANESTHESIA: General. SURGEON: Cheyenne Meade D.O. LIGHT COIL WINDER: BOBO URINE OUTPUT: Yellow and clear. BLOOD [...] sheath and this was done in a [id number] fashion. This was performed using 3-0 Vicryl. [...] The patient tolerated this procedure well. [facility] Note 08-22-2021 Note Date & Type [...] by: DERIC VO Date: 2021-08-22 07:30 [facility] Evaluation note Note Date & Type Note Facility Evaluation note Diagnosis Palpitations Post-COVID chronic palpitations Shortness of breath Lightheaded Dizziness and giddiness Dizziness Dizziness and giddiness documented in this encounter [facility]: Evaluation note Note Date & Type Note Facility Evaluation note No Information [facility] Other History general Narrative - Reported Note Date & Type Note Facility History general Narrative - Reported Type Medical History POTS Medical History sinus tachycardia Surgical History 4th degree vaginal tear after g iving 2021 [facility] Other History general Narrative - Reported Note Date & Type Note Facility History general Narrative - Reported Type Medical History POTS Medical History sinus tachycardia Medical History Anxiety, generalized Surgical History 4th degree vaginal t ear after giving 2021 Surgical History MASTOPEXY OF BOTH BR EASTS WITH INSERTION OF SALINE IMPLANTS Hospitalization History SEE SURGICAL HX [facility] Other Reason for Referral Specialty Diagnoses / Procedures Referred By Willy smith Referred To Contact Cardiology Diagnoses Palpitations Post-COVID chronic palpitations Shortness of breath Lightheaded Dizziness Procedures Holter Monitor 24 Hour Yogi Marquez MD [address] [place] [id number] Referral ID Status Reason Start Date Expiration Date Visits Re quested Visits Authorized [id number] Open 03/09/2021 03/09/2022 1 1 Advance Directives No Advanced Directives Records FoundDocuments on File Type Date Recorded Patient Suspect Artist Expl anation ACP-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 Summary Purpose Family History No Family History Records FoundNo Family History Records FoundNo Family History Records Found Additional Source Comments Reason for Visit (unrecogniz ed section and content) Specialty Diagnoses / Procedures Referred By Willy smith Referred To Contact Cardiology Diagnoses Palpitations Post-COVID chronic palpitations Shortness of breath Lightheaded Dizziness Procedures Holter Monitor 24 Hour Yogi Marquez MD [address] [place] [id number] Referral ID Status Reason Start Date Expiration Date Visits Re quested Visits Authorized [id number] Open 03/09/2021 03/09/2022 1 1 Care Teams (unrecognized sec tion and content) Fire Services Plumber Relationship Specialty Start Date End Date Nick eLonardo DO [address] [place] [address] PCP - General Internal Medicine 03/09/21 INFORMATION SOURCE (unrecogn ized section and content) DATE CREATED AUTHOR 07/01/2022 [facility] DATE CREATED AUTHOR AUTHOR'S ORGANIZ ATION 09/22/2023 [facility] DATE CREATED AUTHOR AUTHOR'S ORGANIZ ATION 10/12/2023 [facility] [employer] FOR RECORDS PERTAINING TO PATIENTS [...] BE BASED ON THE PRIMARY CLINICAL RECORDS. [facility] [employer] [facility]. provides no warranty or guarantee of the accuracy or completeness of information in this document.
[2023-10-15 08:31] VITALS: BP 108/61; PULSE 85
== END 2023-10-15 09:04 | disposition home or self-care (01) ==
LOC: FBCO 08:14 → FBC 08:15
PROVIDERS: PCP Family Medicine; Visit Provider Obstetrics & Gynecology
DX: O99.283 Endocrine, nutritional and metabolic diseases complicating pregnancy, third trimester (principal)
CPT/HCPCS: 59025

== ENCOUNTER 2023-10-17 07:52 | Outpatient (OUT) | payer OTHER, SELFPAY ==
--- NOTE | 2023-10-17 17:25 | US_ITS ---
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 BREATHING MOVEMENTS: 2 GROSS BODY MOVEMENTS: 2 TONE: 2 QUALITATIVE AMNIOTIC FLUID VOLUME: 2 PRESENTATION: CEPHALIC HEART RATE: 128.57 bpm AMNIOTIC FLUID VOLUME: 13.09 cm GESTATIONAL AGE: 249 Day US/US OB BPP w non-stress IMPRESSION: Total biophysical profile score: 8 Electronically authenticated by: AILYN BLACK Date: 10/18/2023 07:50
[2023-10-17 17:59] VITALS: BP 110/69; PULSE 77
== END 2023-10-17 18:34 | disposition home or self-care (01) ==
LOC: US 07:52 → FBC 17:28
PROVIDERS: PCP Family Medicine; Visit Provider Obstetrics & Gynecology
DX: O99.413 Diseases of the circulatory system complicating pregnancy, third trimester (principal); G90.A Postural orthostatic tachycardia syndrome [POTS]; Z3A.00 Weeks of gestation of pregnancy not specified
CPT/HCPCS: 76818

== ENCOUNTER 2023-10-18 13:07 | Outpatient (OUT) | payer OTHER, SELFPAY ==
--- NOTE | 2023-10-18 13:10 | US_ITS ---
[address] [address] Patient Name: AUDREY DOZIER MRN: [id number] date: 1990 Sex: F Assigned Patient Location: [facility] Current Patient Location: [facility] Accession/Order Number: [id number] Exam Date: 10/18/2023 13:10 Report Date: 10/18/2023 14:11 At the request of: CHEYENNE BLOOM Procedure: US OB growth EXAMINATION: US OB growth HISTORY: SIZE INCONSISTENT WITH DATES COMPARISON: No relevant comparison available. FINDINGS: Heart Rate: 166 bpm Amniotic Fluid Volume: 10.0 cm; normal range. Number: 1 Position: CEPHALIC BIOMETRY: BPD: 8.70 cm; 35 weeks 1 day; 39 % HC: 32.11 cm; 36 weeks 2 days; 30.20 % AC: 33.28 cm; 37 weeks 1 day; 91.10 % FL: 7.25 cm; 37 weeks 1 day; 79.50 % EFW: 2882.49 g; 79.60 % FL/AC: 21.78 FL/BPD: 83.33 HC/AC: 0.96 GESTATIONAL AGE: Age by EDC: 35 weeks 5 days GUNJAN by EDC: 2023-11-17 Age by US: 36 weeks 3 days GUNJAN by US: 2023-11-12 US/US OB growth IMPRESSION: 1. Single live intrauterine with growth detailed above. Electronically authenticated by: AILYN BLACK Date: 10/18/2023 14:11
== END 2023-10-18 13:08 | disposition home or self-care (01) ==
LOC: NOMS 13:08
PROVIDERS: PCP Family Medicine; Visit Provider Obstetrics & Gynecology
DX: Z34.93 Encounter for supervision of normal pregnancy, unspecified, third trimester (principal); O26.843 Uterine size-date discrepancy, third trimester; Z3A.37 37 weeks gestation of pregnancy
CPT/HCPCS: 36415; 76816

== ENCOUNTER 2023-10-18 19:22 | Outpatient (REF) | payer OTHER, SELFPAY ==
--- OUTSIDE RECORDS SUMMARY | 2023-10-18 19:25 | XMS_ITS | CCD ---
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 Basophil 0.05 k/uL Normal 0.00-0.20 [facility] Comment on above: Performed By: #### C DP, PT, MG #### [facility] [address] [place] [address] Attendant [employer] Operated Laundry: Rosario Linares MD Abs.Imm.Granulocyte 0.20 k/uL Normal 0.00-0.30 [facility] Comment on above: Performed By: #### C DP, PT, MG #### [facility] [address] [place] [address] Attendant [employer] Operated Laundry: Rosario Linares MD Abs.Neutrophil (Seg) 9.90 k/uL High 1.50-8.10 [facility] Comment on above: Performed By: #### C DP, PT, MG #### [address] Chen, [place] [address] Attendant [employer] Operated Laundry: Rosario Linares MD Basophils/100 WBC (Bld) 0 % Normal 0-2 [facility] Comment on above: Performed By: #### C DP, PT, MG #### [address] Chen, [place] [address] Attendant [employer] Operated Laundry: Rosario Linares MD Eosinophils (Bld) [#/Vol] 0.15 10*3/uL Normal 0.00-0.44 [facility] Comment on above: Performed By: #### C DP, PT, MG #### [facility] [address] [place] [address] Dr. Chen, [place] [address] Attendant [employer] Operated Laundry: Rosario Linares MD Eosinophils/100 WBC (Bld) 1 % Normal 1-4 [facility] Comment on above: Performed By: #### C DP, PT, MG #### [facility] [address] [place], [facility] Attendant [employer] Operated Laundry: Rosario Linares MD Erythrocyte distribution width (RBC) [Ratio] 12.8 % Normal 11.8-14.4 [facility] Comment on above: Performed By: #### C DP, PT, MG #### [facility] [address] [place] [address] Dr. Chen, [place] [address] Attendant [employer] Operated Laundry: Rosario Linares MD Hematocrit (Bld) [Volume fraction] 32.7 % Low 36.3-47.1 [facility] Comment on above: Performed By: #### C DP, PT, MG #### [address] Chen, [place] [address] Attendant [employer] Operated Laundry: Rosario Linares MD Hemoglobin (Bld) [Mass/Vol] 11.3 g/dL Low 11.9-15.1 [facility] Comment on above: Performed By: #### C DP, PT, MG #### [address] Chen, [place] [address] Attendant [employer] Operated Laundry: Rosario Linares MD Immature granulocytes/100 WBC (Bld) 2 % High 0 [facility] Comment on above: Performed By: #### C DP, PT, MG #### [address] Chen, [place] [address] Attendant [employer] Operated Laundry: Rosario Linares MD Lymphocytes (Bld) [#/Vol] 2.23 10*3/uL Normal 1.10-3.70 [facility] Comment on above: Performed By: #### C DP, PT, MG #### [facility] [address] [place] [address] Dr. Chen, [facility]83 Attendant [employer] Operated [employer]undry: Rosario Linares MD Lymphocytes/100 WBC (Bld) 17 % Low 24-43 [facility] Comment on above: Performed By: #### C DP, PT, MG #### [address] [place], [place] 7675683 Attendant [employer] Operated Laundry: Rosario Linares MD MCH (RBC) [Entitic mass] 29.7 pg Normal 25.2-33.5 [facility] Comment on above: Performed By: #### C DP, PT, MG #### [address] [place], [place] [id number] Attendant [employer] Operated Laundry: Rosario Linares MD MCHC (RBC) [Mass/Vol] 34.6 g/dL Normal 28.4-34.8 [facility] Comment on above: Performed By: #### C DP, PT, MG #### [address] Chen, [facility]83 Attendant [employer] Operated Laundry: Rosario Linares MD MCV (RBC) [Entitic vol] 85.8 fL Normal 82.6-102.9 [facility] Comment on above: Performed By: #### C DP, PT, MG #### [address] [place] [address] Attendant Coin Operated Laundry: Rosario Linares MD Monocytes (Bld) [#/Vol] 0.72 10*3/uL Normal 0.10-1.20 [facility] Comment on above: Performed By: #### C DP, PT, MG #### [address] [place], [place] 4954383 Attendant [employer] Operated Laundry: Rosario Linares MD Monocytes/100 WBC (Bld) 5 % Normal 3-12 [facility] Comment on above: Performed By: #### C DP, PT, MG #### [address] Chen, [facility]83 Attendant [employer] Operated Laundry: Rosario Linares MD Neutrophil (Seg) 75 % High 36-65 [facility] Comment on above: Performed By: #### C DP, PT, MG #### [address] [place] [address] Attendant Coin Operated Laundry: Rosario Linares MD NRBC Automated 0.0 per 100 WBC Normal 0.0 [facility] Comment on above: Performed By: #### C DP, PT, MG #### [facility] [address] [place], [place] 4269983 Attendant [employer] Operated Laundry: Rosario Linares MD Platelet mean volume (Bld) [Entitic vol] 10.2 fL Normal 8.1-13.5 [facility] Comment on above: Performed By: #### C DP, PT, MG #### [facility] [address] [place], [place] 8942083 Attendant [employer] Operated Laundry: Rosario Linares MD Platelets (Bld) [#/Vol] 293 10*3/uL Normal 138-453 [facility] Comment on above: Performed By: #### C DP, PT, MG #### [address] [place], [place] 0045283 Attendant Coin Operated Laundry: Rosario Linares MD RBC (Bld) [#/Vol] 3.81 10*6/uL Low 3.95-5.11 [facility] Comment on above: Performed By: #### C DP, PT, MG #### [address] [place], [place] 8822383 Attendant [employer] Operated Laundry: Rosario Linares MD WBC (Bld) [#/Vol] 13.3 10*3/uL High 3.5-11.3 [facility] Comment on above: Performed By: #### C DP, PT, MG #### [address] [place], [place] 2010783 Attendant [employer] Operated Laundry: Rosario Linares MD Comp Metabolic Profon 2023 Albumin [Mass/Vol] 3.5 g/dL Normal 3.5-5.2 [facility] Comment on above: Performed By: #### C P #### [address] [place], [place] 8796083 Attendant [employer] Operated Laundry: Rosario Linares MD Albumin/Glob Ratio 1.1 Normal 1.0-2.5 [facility] Comment on above: Performed By: #### C P #### [facility] [address] [place], [place] 0029083 Attendant Coin Operated Laundry: Rosario Linares MD Alkaline Phos 103 U/L Normal 35-104 [facility] Comment on above: Performed By: #### C P #### [facility] [address] [place], [place] [id number] Attendant [employer] Operated Laundry: Rosario Linares MD ALT [Catalytic activity/Vol] 16 U/L Normal 5-33 [facility] Comment on above: Performed By: #### C P #### [facility] [address] [place], [place] 9393383 Attendant [employer] Operated Laundry: Rosario Linares MD Anion gap [Moles/Vol] 10 mmol/L Normal 9-17 [facility] Comment on above: Performed By: #### C P #### [facility] [address] [place], [place] 3627183 Attendant [employer] Operated Laundry: Rosario Linares MD AST [Catalytic activity/Vol] 16 U/L Normal <32 [facility] Comment on above: Performed By: #### C P #### [facility] [address] [place], [place] 3895483 Attendant [employer] Operated Laundry: Rosario Linares MD Bilirubin [Mass/Vol] 0.2 mg/dL Low 0.3-1.2 [facility] Comment on above: Performed By: #### C P #### [facility] [address] [place], [place] 7066583 Attendant [employer] Operated Laundry: Rosario Linares MD BUN/CRE Ratio 18 Normal 9-20 [facility] Comment on above: Performed By: #### C P #### [facility] [address] [place], [place] 0129383 Attendant [employer] Operated Laundry: Rosario Linares MD Calcium [Mass/Vol] 8.4 mg/dL Low 8.6-10.4 [facility] Comment on above: Performed By: #### C P #### [facility] [address] [place] [address] Attendant Coin Operated Laundry: Rosario Linares MD Chloride [Moles/Vol] 101 mmol/L Normal 98-107 [facility] Comment on above: Performed By: #### C P #### [facility] [address] [place] [address] Attendant Coin Operated Laundry: Rosario Linares MD CO2 [Moles/Vol] 22 mmol/L Normal 20-31 [facility] Comment on above: Performed By: #### C P #### [facility] [address] [place] [address] Attendant Coin Operated Laundry: Rosario Linares MD Creatinine [Mass/Vol] 0.4 mg/dL Low 0.5-0.9 [facility] Comment on above: Performed By: #### C P #### [facility] [address] [place] [address] Attendant Coin Operated Laundry: Rosario Linares MD GFR/1.73 sq M.predicted among non-blacks MDRD (S/P/Bld) [Vol rate/Area] mL/min/{1.73_m2} Normal >60 [facility] Comment on above: Result Comment: These [...] secretion. Performed By: #### C P #### [facility] [address] [place] [address] Attendant [employer] Operated Laundry: Rosario Linares MD Glucose [Mass/Vol] 89 mg/dL Normal 70-99 [facility] Comment on above: Performed By: #### C P #### [facility] [address] [place], [place] 4107483 Attendant [employer] Operated [employer]undry: Rosario Linares MD Potassium [Moles/Vol] 3.7 mmol/L Normal 3.7-5.3 [facility] Comment on above: Performed By: #### C P #### [facility] [address] [place] 4793783 Attendant [employer] Oper[employer]undry: Rosario Linares MD Protein [Mass/Vol] 6.7 g/dL Normal 6.4-8.3 [facility] Comment on above: Performed By: #### C P #### [facility] [address] [place] [address] [place] [address] Attendant [employer] Operated [employer]undry: Rosario Linares MD Sodium [Moles/Vol] 133 mmol/L Low 135-144 [facility] Comment on above: Performed By: #### C P #### [facility] [address] [place] [address] [place] [address] Attendant [employer] Operated Laundry: Rosario Linares MD Urea nitrogen [Mass/Vol] 7 mg/dL Normal 6-20 [facility] Comment on above: Performed By: #### C P #### [facility] [address] [place] [address] Dr. [place] 0459083 Attendant [employer] Operated Laundry: Rosario Linares MD D-Dimer Teston 09-20-2023 D-Dimer Test 1.32 ug/mL FEU High 0.00-0.59 [facility] Comment on above: Result Comment: When combined [...] DVT. Performed By: #### D PATI #### [address] [place] [id number] Attendant Coin Operated Laundry: Rosario Linares MD Magnesiumon 09-20-2023 Magnesium [Mass/Vol] 1.8 mg/dL Normal 1.6-2.6 [facility] Comment on above: Performed By: #### C DP, PT, MG #### [address] [place], [facility]83 Attendant [employer] Operated Laundry: Rosario Linares MD PTon 09-20-2023 INR Coag (PPP) [Relative time] 1.0 {INR} Normal [facility] Comment on above: Result Comment: Therapeutic Range: Moderate Anticoagulant Intensity: INR = 2.0-3.0 High Anticoagulant Intensity: INR = 2.5-3.5 Performed By: #### C DP, PT, MG #### [address] [place], [facility]83 Attendant [employer] Oper[employer] Laundry: Rosario Linares MD PT Coag (PPP) [Time] 12.8 s Normal 11.7-14.1 [facility] Comment on above: Performed By: #### C DP, PT, MG #### [address] [place] [address] Attendant [employer] Operated Laundry: Rosario Linares MD Thyroid Stim. Horm.on 2023 Thyroid Stim. Horm. 2.11 uIU/mL Normal 0.30-5.00 [facility] Comment on above: Performed By: #### T SH #### [facility] [address] [place], [place] 2096183 Attendant [employer] Operated Laundry: Rosario Linares MD Troponinon 09-20-2023 Troponin, High Sens <6 Normal 0-14 [facility] Comment on above: Result Comment: High Sensitivity Troponin values cannot be compared with other Troponin methodologies. Performed By: #### T ROPI #### [facility] [address] [place], [place] 3766883 Attendant Coin Operated Laundry: Rosario Linares MD Basic Metabolic Profon 07-25 Anion gap [Moles/Vol] 13 mmol/L Normal 9-17 [facility] Comment on above: Performed By: #### C DP, BMP #### [facility] [address] [place] [address] Attendant Coin Operated Laundry: Rosario Linares MD BUN/CRE Ratio 18 Normal 9-20 [facility] Comment on above: Performed By: #### C DP, BMP #### [facility] [address] [place] [address] Attendant [employer] Operated Laundry: Rosario Linares MD Calcium [Mass/Vol] 8.7 mg/dL Normal 8.6-10.4 [facility] Comment on above: Performed By: #### C DP, BMP #### [facility] [address] [place], [place] 0497583 Attendant Coin Operated Laundry: Rosario Linares MD Chloride [Moles/Vol] 100 mmol/L Normal 98-107 [facility] Comment on above: Performed By: #### C DP, BMP #### [facility] [address] [place] [address] Attendant Coin Operated Laundry: Rosario Linares MD CO2 [Moles/Vol] 21 mmol/L Normal 20-31 [facility] Comment on above: Performed By: #### C DP, BMP #### [facility] [address] [place] [address] Attendant Coin Operated Laundry: Rosario Linares MD Creatinine [Mass/Vol] 0.4 mg/dL Low 0.5-0.9 [facility] Comment on above: Performed By: #### C DP, BMP #### [facility] [address] [place] [address] Attendant Coin Operated Laundry: Rosario Linares MD GFR/1.73 sq M.predicted among non-blacks MDRD (S/P/Bld) [Vol rate/Area] mL/min/{1.73_m2} Normal >60 [facility] Comment on above: Result Comment: These [...] Performed By: #### C DP, BMP #### [facility] [address] [place] [address] Attendant [employer] Operated Laundry: Rosario Linares MD Glucose [Mass/Vol] 115 mg/dL High 70-99 [facility] Comment on above: Performed By: #### C DP, BMP #### [facility] [address] [place], [place] 8329683 Attendant [employer] Operated Laundry: Rosario Linares MD Potassium [Moles/Vol] 3.4 mmol/L Low 3.7-5.3 [facility] Comment on above: Performed By: #### C DP, BMP #### [facility] [address] [place] [address] Attendant [employer] Operated Laundry: Rosario Linares MD Sodium [Moles/Vol] 134 mmol/L Low 135-144 [facility] Comment on above: Performed By: #### C DP, BMP #### [facility] [address] [place] [address] Attendant [employer] Operated [employer]undry: Rosario Linares MD Urea nitrogen [Mass/Vol] 7 mg/dL Normal 6-20 [facility] Comment on above: Performed By: #### C DP, BMP #### [facility] [address] [place], [place] [address]999983 Attendant Coin Operated Laundry: Roasrio Linares MD CBC with Diffon 07-26-2023 Abs. Basophil 0.04 k/uL Normal 0.00-0.20 [facility] Comment on above: Performed By: #### C DP, BMP #### [address] [place], [place] 9079783 Attendant [employer] Operated Laundry: Rosario Linares MD Abs.Imm.Granulocyte 0.07 k/uL Normal 0.00-0.30 [facility] Comment on above: Performed By: #### C DP, BMP #### [address] [place], [place] [address] Attendant [employer] Operated Laundry: Rosario Linares MD Abs.Neutrophil (Seg) 8.51 k/uL High 1.50-8.10 [facility] Comment on above: Performed By: #### C DP, BMP #### [address] [place], [place] 4047883 Attendant [employer] Oper[employer] Laundry: Rosario Linares MD Basophils/100 WBC (Bld) 0 % Normal 0-2 [facility] Comment on above: Performed By: #### C DP, BMP #### [facility] [address] [place] [address] Dr. [place], [place] 7755583 Attendant [employer] Oper[employer]undry: Rosario Linares MD Eosinophils (Bld) [#/Vol] 0.11 10*3/uL Normal 0.00-0.44 [facility] Comment on above: Performed By: #### C DP, BMP #### [address] [place], [place] 7267883 Attendant [employer] Oper[employer]undry: Rosario Linares MD Eosinophils/100 WBC (Bld) 1 % Normal 1-4 [facility] Comment on above: Performed By: #### C DP, BMP #### [facility] [address] [place], [place] [address] Attendant [employer] Operated [employer]undry: Rosario Linares MD Erythrocyte distribution width (RBC) [Ratio] 13.0 % Normal 11.8-14.4 [facility] Comment on above: Performed By: #### C DP, BMP #### [address] [place], [place] [address] Attendant [employer] Operated Laundry: Rosario Linares MD Hematocrit (Bld) [Volume fraction] 36.2 % Low 36.3-47.1 [facility] Comment on above: Performed By: #### C DP, BMP #### [address] [place], [place] [address] Attendant [employer] Operated Laundry: Rosario Linares MD Hemoglobin (Bld) [Mass/Vol] 12.2 g/dL Normal 11.9-15.1 [facility] Comment on above: Performed By: #### C DP, BMP #### [address] [place], [place] [address] Attendant [employer] Operated Laundry: Rosario Linares MD Immature granulocytes/100 WBC (Bld) 1 % High 0 [facility] Comment on above: Performed By: #### C DP, BMP #### [address] [place], [place] [address] Attendant [employer] Operated Laundry: Rosario Linares MD Lymphocytes (Bld) [#/Vol] 2.63 10*3/uL Normal 1.10-3.70 [facility] Comment on above: Performed By: #### C DP, BMP #### [address] [place] [address] Attendant [employer] Oper[employer]undry: Rosario Linares MD Lymphocytes/100 WBC (Bld) 22 % Low 24-43 [facility] Comment on above: Performed By: #### C DP, BMP #### [facility] [address] [place] [address] Attendant [employer] Operated [employer]undry: Rosario Linares MD MCH (RBC) [Entitic mass] 29.8 pg Normal 25.2-33.5 [facility] Comment on above: Performed By: #### C DP, BMP #### [facility] [address] [place], [place] 2261883 Attendant [employer] Operated Laundry: Rosario Linares MD MCHC (RBC) [Mass/Vol] 33.7 g/dL Normal 28.4-34.8 [facility] Comment on above: Performed By: #### C DP, BMP #### [address] [place], [facility]83 Attendant [employer] Operated Laundry: Rosario Linares MD MCV (RBC) [Entitic vol] 88.5 fL Normal 82.6-102.9 [facility] Comment on above: Performed By: #### C DP, BMP #### [address] [place], [facility]83 Attendant [employer] Oper[employer] Laundry: Rosario Linares MD Monocytes (Bld) [#/Vol] 0.44 10*3/uL Normal 0.10-1.20 [facility] Comment on above: Performed By: #### C DP, BMP #### [address] [place] [address] Attendant [employer]: Rosario Linares MD Monocytes/100 WBC (Bld) 4 % Normal 3-12 [facility] Comment on above: Performed By: #### C DP, BMP #### [facility] [address] [place], [place] 8688583 Attendant [employer] Oper[employer]undry: Rosario Linares MD Neutrophil (Seg) 72 % High 36-65 [facility] Comment on above: Performed By: #### C DP, BMP #### [facility] [address] [place], [facility]83 Attendant [employer] Oper[employer]undry: Rosario Linares MD NRBC Automated 0.0 per 100 WBC Normal 0.0 [facility] Comment on above: Performed By: #### C DP, BMP #### [facility] [address] [place], [place] 0645883 Attendant [employer]: Rosario Linares MD Platelet mean volume (Bld) [Entitic vol] 10.3 fL Normal 8.1-13.5 [facility] Comment on above: Performed By: #### C DP, BMP #### [facility] [address] [place], [place] 0388983 Attendant [employer]undry: Rosario Linares MD Platelets (Bld) [#/Vol] 289 10*3/uL Normal 138-453 [facility] Comment on above: Performed By: #### C DP, BMP #### [address] [place], [place] 9248083 Attendant [employer] Oper[employer] Laundry: Rosario Linares MD RBC (Bld) [#/Vol] 4.09 10*6/uL Normal 3.95-5.11 [facility] Comment on above: Performed By: #### C DP, BMP #### [address] [place], [place] 3996383 Attendant [employer] Oper[employer]undry: Rosario Linares MD WBC (Bld) [#/Vol] 11.8 10*3/uL High 3.5-11.3 [facility] Comment on above: Performed By: #### C DP, BMP #### [address] [place], [place] 6091683 Attendant [employer]undry: Rosario Linares MD Troponinon 07-26-2023 Troponin, High Sens 6 ng/L Normal 0-14 [facility] Comment on above: Result Comment: High Sensitivity Troponin values cannot be compared with other Troponin methodologies. Performed By: #### T ROPI #### [facility] [address] [place], [place] 7081483 Attendant [employer]undry: Rosario Lianres MD UA w/Reflex Cultureon 2023 Bilirubin, SemiQt,Ur Negative Normal [facility] Comment on above: Performed By: #### C DP, BMP #### [facility] [address] [place] [address] Dr. [place], [place] 6315883 Attendant [employer] Oper[employer]undry: Rosario Linares MD Blood, Urine Negative Normal NEG [facility] Comment on above: Performed By: #### C DP, BMP #### [facility] [address] [place] [address] Attendant [employer]undry: Rosario Linares MD Clarity (U) Clear Normal CLEAR [facility] Comment on above: Performed By: #### C DP, BMP #### [address] [place], [place] 7710383 Attendant [employer]: Rosario Linares MD Color (U) Yellow Normal YEL [facility] Comment on above: Performed By: #### C DP, BMP #### [address] [place] [address] Attendant [employer]: Rosario Linares MD Glucose Ql (U) Negative Normal NEG [facility] Comment on above: Performed By: #### C DP, BMP #### [address] [place] [address] Attendant [employer]undry: Rosario Linares MD Ketones Ql (U) Negative Normal NEG [facility] Comment on above: Performed By: #### C DP, BMP #### [facility] [address] [place] [address] [place] [address] Attendant [employer]: Rosario Linares MD Leukocyte esterase Test strip Ql (U) SMALL Abnormal NEG [facility] Comment on above: Performed By: #### C DP, BMP #### [facility] [address] [place] [address] Dr. [place], [place] 9845483 Attendant [employer]undry: Rosario Linares MD Nitrite,Ur Negative Normal [facility] Comment on above: Performed By: #### C DP, BMP #### [facility] [address] [place], [place] 4763683 Attendant [employer] Laundry: Rosario Linares MD PH,Ur 8.0 Normal 5.0-9.0 [facility] Comment on above: Performed By: #### C DP, BMP #### [facility] [address] [place], [place] 6560083 Attendant [employer]undry: Rosario Linares MD Protein Ql (U) Negative Normal NEG [facility] Comment on above: Performed By: #### C DP, BMP #### [facility] [address] [place], [place] 5604283 Attendant [employer] Oper[employer] Laundry: Rosario Linares MD Spec. Breese,Ur 1.015 Normal 1.010-1.020 [facility] Comment on above: Performed By: #### C DP, BMP #### [facility] [address] [place], [place] 7820883 Attendant [employer]undry: Rosario Linares MD Urobilinogen,Ur Normal Normal 0.0-1.0 [facility] Comment on above: Performed By: #### C DP, BMP #### [facility] [address] [place] [address] Dr. [place], [place] 6476983 Attendant [employer]: Rosario Linares MD Urinalysis,Microon 4 Bacteria TRACE Abnormal NONE [facility] Comment on above: Performed By: #### C DP, BMP #### [facility] [address] [place], [place] 3352783 Attendant [employer]: Rosario Linares MD Epithelial cells LM Ql (Urine sed) 5 TO 10 Normal 0-25 [facility] Comment on above: Performed By: #### C DP, BMP #### [facility] [address] [place], [place] 2934683 Attendant [employer]undry: Rosario Linares MD Urine RBC's None Normal 0-2 [facility] Comment on above: Performed By: #### C DP, BMP #### [facility] [address] [place] [address] Attendant [employer]: Rosario Linares MD Urine WBC's 2 TO 5 Normal 0-5 [facility] Comment on above: Performed By: #### C DP, BMP #### [facility] [address] [place] [address] Attendant [employer]: Rosario Linares MD COVID/FLU/RSV RT-PCRon 06-045 SARS-CoV-2 (COVID-19) RNA DEVIN+probe Ql (Unsp spec) Negative [facility] Other COVID/FLU/RSV RT-PCR Negative [facility] Other Quick Strepon 06-04-2022 S. pyogenes Org specific cx Ql (Throat) Negative [facility] Other Quick Strep [facility] Other CBC AUTO DIFFon 01-24-2022 BASO # 0.1 103/ul Normal 0.0-0.1 [facility] Comment on above: Performed By: #### A FPTET #### [facility] [address] [place] [address] Dr. Belkys Fajardo Basophils/100 WBC (Bld) 0.3 % Normal 0.2-2.0 [facility] Comment on above: Performed By: #### A FPTET #### [facility] [address] [place] [address] Dr. Belkys Fajardo EO # 0.1 103/ul Normal 0.0-0.7 [facility] Comment on above: Performed By: #### A FPTET #### [facility] [address] [place] [address] Dr. Belkys Fajardo Eosinophils/100 WBC (Bld) 0.9 % Normal 0.9-7.0 [facility] Comment on above: Performed By: #### A FPTET #### [facility] [address] [place] [address] Dr. Belkys Fajardo Erythrocyte distribution width (RBC) [Ratio] 14.0 % Normal 11.0-15.0 [facility] Comment on above: Performed By: #### A FPTET #### [facility] [address] [place] [address] Dr. Belkys Fajardo Hematocrit (Bld) [Volume fraction] 24.8 % Critically low 36.0-48.0 [facility] Comment on above: Performed By: #### A FPTET #### [facility] [address] [place] [address] Dr. Belkys Fajardo Hemoglobin (Bld) [Mass/Vol] 8.2 g/dL Critically low 12.0-16.0 [facility] Comment on above: Performed By: #### A FPTET #### [facility] [address] [place] [address] Dr. Belkys Fajardo IG # 0.23 10e3/ul Critically high 0.00-0.03 [facility] Comment on above: Performed By: #### A FPTET #### [facility] [address] [place] [address] Dr. Belkys Fajardo IG % 1.5 % Critically high 0.0-0.5 [facility] Comment on above: Performed By: #### A FPTET #### [facility] [address] [place] [address] Dr. Belkys Fajardo LYMPH # 2.4 103/ul Normal 1.2-3.8 [facility] Comment on above: Performed By: #### A FPTET #### [facility] [address] [place] [address] Dr. Belkys Fajardo Lymphocytes/100 WBC (Bld) 15.5 % Critically low 20.5-60.0 [facility] Comment on above: Performed By: #### A FPTET #### [facility] [address] [place] [address] Dr. Belkys Fajardo MANUAL DIFF REQ NO Normal [facility] Comment on above: Performed By: #### A FPTET #### [facility] [address] [address] [address] Belkys Fajardo MCH (RBC) [Entitic mass] 28.5 pg Normal 26.7-34.0 [facility] Comment on above: Performed By: #### A FPTET #### [facility] [address] [place] [address] Dr. Belkys Fajardo MCHC (RBC) [Mass/Vol] 33.1 g/dL Normal 29.9-35.2 [facility] Comment on above: Performed By: #### A FPTET #### [facility] [address] [place] [address] Dr. Belkys Fajardo MCV (RBC) [Entitic vol] 86.1 fL Normal 81.0-99.0 [facility] Comment on above: Performed By: #### A FPTET #### [facility] [address] [place] [address] Dr. Belkys Fajardo MONO # 0.8 103/ul Normal 0.3-0.8 [facility] Comment on above: Performed By: #### A FPTET #### [facility] [address] [place] [address] Dr. Belkys Fajardo Monocytes/100 WBC (Bld) 5.4 % Normal 1.7-12.0 [facility] Comment on above: Performed By: #### A FPTET #### [facility] [address] [place] [address] Dr. Belkys Fajardo NEUT # 11.6 103/ul Critically high 1.4-6.5 [facility] Comment on above: Performed By: #### A FPTET #### [facility] [address] [place] [address] Dr. Belkys Fajardo Neutrophils/100 WBC (Bld) 76.4 % Critically high 43.0-75.0 [facility] Comment on above: Performed By: #### A FPTET #### [facility] [address] [place] [address] Dr. Belkys Fajardo Platelet mean volume (Bld) [Entitic vol] 10.2 fL Normal 9.5-13.5 [facility] Comment on above: Performed By: #### A FPTET #### [facility] [address] [place] [address] Dr. Belkys Fajardo PLT 235 103/ul Normal 150-450 [facility] Comment on above: Performed By: #### A FPTET #### [facility] [address] [place] [address] Dr. Belkys Fajardo RBC 2.88 106/ul Critically low 4.20-5.40 [facility] Comment on above: Performed By: #### A FPTET #### [facility] [address] [place] [address] Dr. Belkys Fajardo WBC 15.2 103/ul Critically high 4.0-11.0 [facility] Comment on above: Performed By: #### A FPTET #### [facility] [address] [place] [address] Dr. Belkys Fajardo CBC AUTO DIFFon 01-23-2022 BASO # 0.1 103/ul Normal 0.0-0.1 [facility] Comment on above: Performed By: #### A FPTET #### [facility] [address] [place] [address] Dr. Belkys Fajardo Basophils/100 WBC (Bld) 0.4 % Normal 0.2-2.0 [facility] Comment on above: Performed By: #### A FPTET #### [facility] [address] [place] [address] Dr. Belkys Fajardo EO # 0.1 103/ul Normal 0.0-0.7 [facility] Comment on above: Performed By: #### A FPTET #### [facility] [address] [place] [address] Dr. Belkys Fajardo Eosinophils/100 WBC (Bld) 0.5 % Critically low 0.9-7.0 [facility] Comment on above: Performed By: #### A FPTET #### [facility] [address] [place] [address] Dr. Belkys Fajardo Erythrocyte distribution width (RBC) [Ratio] 13.8 % Normal 11.0-15.0 [facility] Comment on above: Performed By: #### A FPTET #### [facility] [address] [place] [address] Dr. Belkys Fajardo Hematocrit (Bld) [Volume fraction] 32.5 % Critically low 36.0-48.0 [facility] Comment on above: Performed By: #### A FPTET #### [facility] [address] [place] [address] Dr. Belkys Fajardo Hemoglobin (Bld) [Mass/Vol] 11.0 g/dL Critically low 12.0-16.0 [facility] Comment on above: Performed By: #### A FPTET #### [facility] [address] [place] [address] Dr. Belkys Fajardo IG # 0.31 10e3/ul Critically high 0.00-0.03 [facility] Comment on above: Performed By: #### A FPTET #### [facility] [address] [place] [address] Dr. Belkys Fajardo IG % 1.6 % Critically high 0.0-0.5 [facility] Comment on above: Performed By: #### A FPTET #### [facility] [address] [place] [address] Dr. Belkys Fajardo LYMPH # 2.0 103/ul Normal 1.2-3.8 [facility] Comment on above: Performed By: #### A FPTET #### [facility] [address] [place] [address] Dr. Belkys Fajardo Lymphocytes/100 WBC (Bld) 10.2 % Critically low 20.5-60.0 [facility] Comment on above: Performed By: #### A FPTET #### [facility] [address] [place] [address] Dr. Belkys Fajardo MANUAL DIFF REQ NO Normal [facility] Comment on above: Performed By: #### A FPTET #### [facility] [address] [place] [address] Dr. Belkys Fajardo MCH (RBC) [Entitic mass] 28.4 pg Normal 26.7-34.0 [facility] Comment on above: Performed By: #### A FPTET #### [facility] [address] [place] [address] Dr. Belkys Fajardo MCHC (RBC) [Mass/Vol] 33.8 g/dL Normal 29.9-35.2 [facility] Comment on above: Performed By: #### A FPTET #### [facility] [address] [place] [address] Dr. Belkys Fajardo MCV (RBC) [Entitic vol] 83.8 fL Normal 81.0-99.0 [facility] Comment on above: Performed By: #### A FPTET #### [facility] [address] [place] [address] Dr. Belkys Fajardo MONO # 0.9 103/ul Critically high 0.3-0.8 [facility] Comment on above: Performed By: #### A FPTET #### [facility] [address] [place] [address] Dr. Belkys Fajardo Monocytes/100 WBC (Bld) 4.8 % Normal 1.7-12.0 [facility] Comment on above: Performed By: #### A FPTET #### [facility] [address] [place] [address] Dr. Belkys Fajardo NEUT # 16.0 103/ul Critically high 1.4-6.5 [facility] Comment on above: Performed By: #### A FPTET #### [facility] [address] [place] [address] Dr. Belkys Fajardo Neutrophils/100 WBC (Bld) 82.5 % Critically high 43.0-75.0 [facility] Comment on above: Performed By: #### A FPTET #### [facility] [address] [place] [address] Dr. Belkys Fajardo Platelet mean volume (Bld) [Entitic vol] 10.1 fL Normal 9.5-13.5 [facility] Comment on above: Performed By: #### A FPTET #### [facility] [address] [place], [place] [address] Dr. Belkys Fajardo PLT 301 103/ul Normal 150-450 [facility] Comment on above: Performed By: #### A FPTET #### [facility] [address] [place], [place] [address] Dr. Belkys Fajardo RBC 3.88 106/ul Critically low 4.20-5.40 [facility] Comment on above: Performed By: #### A FPTET #### [facility] [address] [address] [address] Belkys Fajardo WBC 19.3 103/ul Critically high 4.0-11.0 [facility] Comment on above: Performed By: #### A FPTET #### [facility] [address] [address] [address] Belkys Fajardo CULTURE URINEon 01-23-2022 CULTURE URINE Culture Observations : LIGHT GROWTH OF MIXED GENITAL HEYDI. NO POTENTIAL PATHOGENS SEEN. Normal [facility] Comment on above: Performed By: #### U ACSIND, UMICRO #### [facility] [address] [place], [place] [address] Dr. Belkys Fajardo Covid-19 PCR ([facility])on 12-27 SARS-CoV-2 (COVID-19) RNA DEVIN+probe Ql (Unsp spec) Not detected Normal NOT DETECTED [facility] Comment on above: Result Comment: When diagnostic [...] for this test is supported by the [employer] of Health and Human Service's declaration that [...] By: #### C VDTBH #### [facility] [address] [place] [address] Dr. Belkys Fajardo DRUG SCREEN RAPID (URINE)on 01-23-2022 AMP Negative Normal NEGATIVE [facility] Comment on above: Performed By: #### A FPTET #### [facility] [address] [place] [address] Dr. Belkys Fajardo BAR Negative Normal NEGATIVE [facility] Comment on above: Performed By: #### A FPTET #### [facility] [address] [place] [address] Dr. Belkys Fajardo BUP Negative Normal NEGATIVE [facility] Comment on above: Performed By: #### A FPTET #### [facility] [address] [place] [address] Dr. Belkys Fajardo BZO Negative Normal NEGATIVE [facility] Comment on above: Performed By: #### A FPTET #### [facility] [address] [place] [address] Dr. Belkys Fajardo VALENCIA Negative Normal NEGATIVE [facility] Comment on above: Performed By: #### A FPTET #### [facility] [address] [place] [address] Dr. Belkys Fajardo CUT-OFFS SEE BELOW Normal [facility] Comment on above: Result Comment: AMP (Amphetamine): [...] By: #### A FPTET #### [facility] [address] [place] [address] Dr. Belkys Fajardo DRUG CUT HEADER DRUG CLASS TEST SYSTEM CUT-OFF CONCENTRATIONS ARE FOLLOWS: Normal [facility] Comment on above: Performed By: #### A FPTET #### [facility] [address] [place] [address] Dr. Belkys Fajardo mAMP Negative Normal NEGATIVE [facility] Comment on above: Performed By: #### A FPTET #### [facility] [address] [address] [address] Belkys Fajardo MTD Negative Normal NEGATIVE [facility] Comment on above: Performed By: #### A FPTET #### [facility] [address] [place] [address] Dr. Belkys Fajardo OPI Negative Normal NEGATIVE [facility] Comment on above: Performed By: #### A FPTET #### [facility] [address] [place] [address] Dr. Belkys Fajardo OXY Negative Normal NEGATIVE [facility] Comment on above: Performed By: #### A FPTET #### [facility] [address] [place] [address] Dr. Belkys Fajardo PCP Negative Normal NEGATIVE [facility] Comment on above: Performed By: #### A FPTET #### [facility] [address] [place] [address] Dr. Belkys Fajardo PPX Negative Normal NEGATIVE [facility] Comment on above: Performed By: #### A FPTET #### [facility] [address] [place] [address] Dr. Belkys Fajardo TCA Negative Normal NEGATIVE [facility] Comment on above: Performed By: #### A FPTET #### [facility] [address] [address] [address] Belkys Fajardo THC Negative Normal NEGATIVE [facility] Comment on above: Performed By: #### A FPTET #### [facility] [address] [place] [address] Dr. Belkys Fajardo TYPE AND SCREENon 01-23-2022 TYPE AND SCREEN Negative Normal [facility] Comment on above: Performed By: #### U ACSIND, UMICRO #### [facility] [address] [address] [address] Belkys Fajardo UA (CLEAN/CATCH) PILOT CONTROL OPERATOR/MICRO I F IND.on 01-23-2022 Bilirubin Ql (U) Negative Normal NEGATIVE [facility] Comment on above: Performed By: #### U ACSIND, UMICRO #### [facility] [address] [address] [address] Belkys Fajardo Clarity (U) CLEAR Normal CLEAR [facility] Comment on above: Performed By: #### U ACSIND, UMICRO #### [facility] [address] [address] [address] Belkys Fajardo Color (U) LT. YELLOW Normal YELLOW [facility] Comment on above: Performed By: #### U ACSIND, UMICRO #### [facility] [address] [address] [address] Belkys Fajardo Glucose Ql (U) Negative Normal NEGATIVE [facility] Comment on above: Performed By: #### U ACSIND, UMICRO #### [facility] [address] [address] [address] Belkys Fajardo Hemoglobin Ql (U) TRACE-INTACT Abnormal NEGATIVE [facility] Comment on above: Performed By: #### U ACSIND, UMICRO #### [facility] [address] [address] [address] Belkys Fajardo Ketones Ql (U) Negative Normal NEGATIVE [facility] Comment on above: Performed By: #### U ACSIND, UMICRO #### [facility] [address] [address] [address] Belkys Fajardo LEUKOCYTES MODERATE Abnormal NEGATIVE [facility] Comment on above: Performed By: #### U ACSIND, UMICRO #### [facility] [address] [address] [address] Belkys Fajardo Nitrite Ql (U) Negative Normal NEGATIVE [facility] Comment on above: Performed By: #### U ACSIND, UMICRO #### [facility] [address] [address] [address] Belkys Fajardo pH (U) 6.5 [pH] Normal 5-9 [facility] Comment on above: Performed By: #### U ACSTAMELA UMICRO #### [facility] [address] [place] [address] Dr. Belkys Fajardo SPEC GRAVITY 1.015 Normal 1.005-<=1.025 [facility] Comment on above: Performed By: #### U ACSTAMELA UMICRO #### [facility] [address] [place] [address] Dr. Belkys Fajardo UA PROTEIN Negative Normal NEGATIVE/ TRACE [facility] Comment on above: Performed By: #### U ACSTAMELA UMICRO #### [facility] [address] [place] [address] Dr. Belkys Fajardo UR MICRO IND INDICATED Normal [facility] Comment on above: Performed By: #### U ACSTAMELA UMICRO #### [facility] [address] [place] [address] Dr. Belkys Fajardo Urobilinogen Qn (U) 0.2 {Jakob'U}/dL Normal 0.2 - 1. 0 [facility] Comment on above: Performed By: #### U ACSTAMELA UMICRO #### [facility] [address] [place] [address] Dr. Belkys Fajardo URINE MICROSCOPIC ONLYon BACTERIA SMALL Abnormal NONE SEEN [facility] Comment on above: Performed By: #### U ACSTAMELA UMICRO #### [facility] [address] [place] [address] Dr. Belkys Fajardo Bacteria identified Cx Nom (U) INDICATED Normal [facility] Comment on above: Performed By: #### U ACSTAMELA UMICRO #### [facility] [address] [place] [address] Dr. Belkys Fajardo CAST NONE SEEN Normal NONE SEEN [facility] Comment on above: Performed By: #### U ACSTAMELA UMICRO #### [facility] [address] [place] [address] Dr. Belkys Fajardo Crystals LM Nom (Urine sed) NONE SEEN Normal NONE SEEN [facility] Comment on above: Performed By: #### U ACSIND, UMICRO #### [facility] [address] [address] [address] Belkys Fajardo Epithelial cells LM Ql (Urine sed) FEW Abnormal NONE SEEN /RARE [facility] Comment on above: Performed By: #### U ACSIND, UMICRO #### [facility] [address] [address] [address] Belkys Fajardo MUCOUS NONE SEEN Normal NONE SEEN [facility] Comment on above: Performed By: #### U ACSIND, UMICRO #### [facility] [address] [address] [address] Belkys Fajardo RBC NONE SEEN Abnormal 0-2 [facility] Comment on above: Performed By: #### U ACSIND, UMICRO #### [facility] [address] [address] [address] Belkys Fajardo WBC 5-10 Abnormal NONE SEEN [facility] Comment on above: Performed By: #### U ACSIND, UMICRO #### [facility] [address] [address] [address] Belkys Fajardo US PREG GROWTHon 01-12-2022 [...] by: YOGI BLACK Date: 2022-01-12 21:15 Normal [facility] GROUP B STREP CULTUREon 12-26 S. agalactiae Ag Ql (Unsp spec) Culture Observations: NEGATIVE FOR GROUP B STREPTOCOCCUS. Normal [facility] Comment on above: Performed By: #### G BSCX #### [facility] [address] [address] [address] Belkys Fajardo GTT 3 HR PREGon 12-11-2021 Glucose [Mass/Vol] 91 mg/dL Normal 74-106 [facility] Comment on above: Performed By: #### G TT3P #### [facility] [address] [address] [address] Belkys Fajardo Glucose [Mass/Vol] 172 mg/dL Normal [facility] Comment on above: Performed By: #### G TT3P #### [facility] [address] [address] [address] Belkys Fajardo Glucose [Mass/Vol] 148 mg/dL Normal [facility] Comment on above: Performed By: #### G TT3P #### [facility] [address] [address] [address] Belkys Fajardo Glucose [Mass/Vol] 58 mg/dL Normal [facility] Comment on above: Performed By: #### G TT3P #### [facility] [address] [address] [address] Belkys Fajardo US PREG GROWTHon 12-08-2021 [...] Date: 2021-12-08 16:52 Normal [facility] GLUCOSE - 1HRon 11-12-2021 Glucose [Mass/Vol] 143 mg/dL Critically high 74-106 [facility] Comment on above: Performed By: #### U ACSIND, UMICRO #### [facility] [address] [place] [address] Dr. Belkys Fajardo HEMOGRAM AND PLATELon 2021 Hematocrit (Bld) [Volume fraction] 31.7 % Critically low 36.0-48.0 [facility] Comment on above: Performed By: #### A FPTET #### [facility] [address] [place] [address] Dr. Belkys Fajardo Hemoglobin (Bld) [Mass/Vol] 10.4 g/dL Critically low 12.0-16.0 [facility] Comment on above: Performed By: #### A FPTET #### [facility] [address] [place] [address] Dr. Belkys Fajardo MCH (RBC) [Entitic mass] 28.8 pg Normal 26.7-34.0 [facility] Comment on above: Performed By: #### A FPTET #### [facility] [address] [place] [address] Dr. Belkys Fajardo MCHC (RBC) [Mass/Vol] 32.8 g/dL Normal 29.9-35.2 [facility] Comment on above: Performed By: #### A FPTET #### [facility] [address] [place] [address] Dr. Belkys Fajardo MCV (RBC) [Entitic vol] 87.8 fL Normal 81.0-99.0 [facility] Comment on above: Performed By: #### A FPTET #### [facility] [address] [place] [address] Dr. Belkys Fajardo PLT 261 103/ul Normal 150-450 [facility] Comment on above: Performed By: #### A FPTET #### [facility] [address] [place], [place] [address] Dr. Belkys Fajardo RBC 3.61 106/ul Critically low 4.20-5.40 [facility] Comment on above: Performed By: #### A FPTET #### [facility] [address] [place], [place] [address] Dr. Belkys Fajardo WBC 11.5 103/ul Critically high 4.0-11.0 [facility] Comment on above: Performed By: #### A FPTET #### [facility] [address] [address] [address] Belkys Fajardo US PREG PLACENTAon 2 [...] by: YOGI BLACK Date: 2021-11-10 21:07 Normal [facility] US PREG PLACENTAon 2 US PREG PLACENTA EXAMINATION: US PREG PLACENTA HISTORY: Low lying placenta COMPARISON: Ultrasound anatomy 09/16/2021 FINDINGS: PLACENTA: Posterior with lower margin 2.5 cm from os. CERVIX LENGTH: 4.4 cm, closed. HEART RATE: 157 bpm OTHER: None. IMPRESSION: 1. Low-lying posterior placenta; no appreciable change compared to prior study. Electronically authenticated by: YOGI BLACK Date: 2021-10-14 19:56 Normal [facility] US PREG ANATOMY SINGLEon US PREG [...] Date: 2021-09-16 16:54 Normal [facility] AFP TETRA PROFILE (MATERNAL) on 09-06-2021 PDF . Normal [facility] Comment on above: Performed By: #### A FPTET #### [facility] [address] [address] [address] Belkys Fajardo AFP MoM 0.86 Normal [facility] Comment on above: Performed By: #### A FPTET #### [facility] [address] [address] [address] Belkys Fajardo AFP Value 39.7 ng/mL Normal [facility] Comment on above: Performed By: #### A FPTET #### [facility] [address] [address] [address] Belkys Fajardo Comment Comment Normal [facility] Comment on above: Result Comment: Geremias Greer, Ph.D., [employer] Director . References: Available Upon Request. . Multiples Of Median Cutoffs Abbreviation Definitions For AFP Elevations IDD- Insulin Dep Diabetes Granados 2.5 Black 2.8 OSBR- Open Spina Bifida IDD 2.0 Twins 4.5 Risk DSR Cutoff 1:270 DSR- Down Syndrome Risk T18 Cutoff 1:100 T18- Trisomy 18 . Down Syndrome and Trisomy 18 screening are considered Investigational . For further inquiries contact [facility] at [phone]. Performed By: #### A FPTET #### [facility] [address] [address] [address] Belkys Fajardo MONIE MoM 0.77 Normal [facility] Comment on above: Performed By: #### A FPTET #### [facility] [address] [place] [address] Dr. Belkys Fajardo MONIE Value 113.50 pg/mL Normal [facility] Comment on above: Performed By: #### A FPTET #### [facility] [address] [place] [address] Dr. Belkys Fajardo DSR (By Age) 1 [place] 765 Normal [facility] Comment on above: Performed By: #### A FPTET #### [facility] [address] [place] [address] Dr. Belkys Fajardo DSR (Second Trimester) 1 [place] [address] [facility] Comment on above: Performed By: #### A FPTET #### [facility] [address] [place] [address] Dr. Belkys Doe. Age on Collection Date 18.7 WEEKS Normal [facility] Comment on above: Performed By: #### A FPTET #### [facility] [address] [place] [address] Dr. Belkys Pablo. Age Based On LMP [facility] Comment on above: Result Comment: 03/30 Performed By: #### A FPTET #### [facility] [address] [place] [address] Dr. Belkys Fajardo hCG MoM 0.78 Normal [facility] Comment on above: Performed By: #### A FPTET #### [facility] [address] [place] [address] [place] [address] m[IU]/mL Normal [facility] Comment on above: Performed By: #### A FPTET #### [facility] [address] [place] [address] Dr. Belkys Fajardo Insulin Dep Diabetes No Normal [facility] Comment on above: Performed By: #### A FPTET #### [facility] [address] [place] [address] Dr. Belkys Fajardo Interpretation Comment Normal [facility] Comment on above: Result Comment: Inte rpretation: [...] identifies 60% of Trisomy 18 pregnancies. The [employer] recommends amniocentesis be offered to women age 35 and older. Recalculations are not recommended when gestational dating by LMP and ultrasound are within 10 days. Performed By: #### A FPTET #### [facility] [address] [place] [address] Dr. Belkys Fajardo [age] Normal [facility] Comment on above: Performed By: #### A FPTET #### [facility] [address] [place] [address] Dr. Belkys Fajardo Multiple Gestation No Normal [facility] Comment on above: Performed By: #### A FPTET #### [facility] [address] [place] [address] Dr. Belkys Fajardo [place] 1 [place] [address] Normal [facility] Comment on above: Performed By: #### A FPTET #### [facility] [address] [place] [address] Dr. Belkys Fajardo Race Normal [facility] Comment on above: Performed By: #### A FPTET #### [facility] [address] [place] [address] Dr. Belkys Fajardo Results Report Normal [facility] Comment on above: Performed By: #### A FPTET #### [facility] [address] [place] [address] Dr. Belkys Fajardo T18 (By Age) 1:2981 Normal [facility] Comment on above: Performed By: #### A FPTET #### [facility] [address] [place] [address] Dr. Belkys Fajardo T18 Risk Not increased [facility] Comment on above: Performed By: #### A FPTET #### [facility] [address] [place] [address] Dr. Belkys Fajardo Test Results: Negative Normal [facility] Comment on above: Performed By: #### A FPTET #### [facility] [address] [place] [address] Dr. Belkys Fajardo uE3 MoM 1.43 [facility] Comment on above: Performed By: #### A FPTET #### [facility] [address] [place] [address] Dr. Belkys Fajardo uE3 Value 2.26 ng/mL [facility] Comment on above: Performed By: #### A FPTET #### [facility] [address] [place] [address] Dr. Belkys Fajardo PAP ACOG PANEL 2: 21 to 29on 08-24-2021 . . Normal [facility] Comment on above: Result Comment: Perf ormed at: BA Performed By: #### [id number] #### [facility] [address] [place] [address] Dr. Belkys Fajardo Age Gdln ACOG Testing - [facility] Comment on above: Performed By: #### [id number] #### [facility] [address] [place] [address] Dr. Belkys Fajardo DIAGNOSIS: Comment Normal [facility] Comment on above: Result Comment: NEGA TIVE FOR INTRAEPITHELIAL LESION OR MALIGNANCY. Performed at: BA Performed By: #### [id number] #### [facility] [address] [place] [address] Dr. Belkys Fajardo Methodology: Comment [facility] Comment on above: Result Comment: This liquid based ThinPrep(R) pap test was screened with the use of an image guided system. Performed at: WB Performed By: #### [id number] #### [facility] [address] [place] [address] Dr. Belkys Fajardo Note: Comment Normal [facility] Comment on above: Result Comment: The Pap smear is a screening test designed to aid in the detection of premalignant and malignant conditions of the uterine cervix. It is not a diagnostic procedure and should not be used as the sole means of detecting cervical cancer. Both false-positive and false-negative reports do occur. . Performed at: WB Performed By: #### [id number] #### [facility] [address] [place] [address] Dr. Belkys Fjaardo Performed by: Comment Normal [facility] Comment on above: Result Comment: Vicky Avila, Se[employer] Delivery Vehicle Team Technician (ASCP) Performed at: BA Performed By: #### [id number] #### [facility] [address] [place] [address] Dr. Belkys Fajardo Reflex Criteria: Comment Normal [facility] Comment on above: Result Comment: The HPV DNA reflex criteria were not met with this specimen result therefore, no HPV testing was performed. . Performed at: BA Performed By: #### [id number] #### [facility] [address] [place] [address] Dr. Belkys Fajardo Specimen adequacy: Comment Normal [facility] Comment on above: Result Comment: Sati sfactory for evaluation. No endocervical component is identified. Performed at: BA Performed By: #### [id number] #### [facility] [address] [place] [address] Dr. Belkys Fajardo CBC AUTO DIFFon 08-22-2021 BASO # 0.0 103/ul Normal 0.0-0.1 [facility] Comment on above: Performed By: #### C BC #### [facility] [address] [address] [address] Belkys Fajardo Basophils/100 WBC (Bld) 0.2 % Normal 0.2-2.0 [facility] Comment on above: Performed By: #### C BC #### [facility] [address] [place] [address] Dr. Belkys Fajardo EO # 0.2 103/ul Normal 0.0-0.7 [facility] Comment on above: Performed By: #### C BC #### [facility] [address] [place] [address] Dr. Belkys Fajardo Eosinophils/100 WBC (Bld) 1.9 % Normal 0.9-7.0 [facility] Comment on above: Performed By: #### C BC #### [facility] [address] [place] [address] Dr. Belkys Fajardo Erythrocyte distribution width (RBC) [Ratio] 13.4 % Normal 11.0-15.0 [facility] Comment on above: Performed By: #### C BC #### [facility] [address] [place] [address] Dr. Belkys Fajardo Hematocrit (Bld) [Volume fraction] 32.7 % Critically low 36.0-48.0 [facility] Comment on above: Performed By: #### C BC #### [facility] [address] [place] [address] Dr. Belkys Fajardo Hemoglobin (Bld) [Mass/Vol] 11.0 g/dL Critically low 12.0-16.0 [facility] Comment on above: Performed By: #### C BC #### [facility] [address] [place] [address] Dr. Belkys Fajardo IG # 0.05 10e3/ul Critically high 0.00-0.03 [facility] Comment on above: Performed By: #### C BC #### [facility] [address] [place] [address] Dr. Belkys Fajardo IG % 0.5 % Normal 0.0-0.5 [facility] Comment on above: Performed By: #### C BC #### [facility] [address] [place] [address] Dr. Belkys Fajardo LYMPH # 2.3 103/ul Normal 1.2-3.8 [facility] Comment on above: Performed By: #### C BC #### [facility] [address] [place] [address] Dr. Belkys Fajardo Lymphocytes/100 WBC (Bld) 22.4 % Normal 20.5-60.0 [facility] Comment on above: Performed By: #### C BC #### [facility] [address] [place] [address] Dr. Belkys Fajardo MANUAL DIFF REQ NO Normal [facility] Comment on above: Performed By: #### C BC #### [facility] [address] [place] [address] Dr. Belkys Fajardo MCH (RBC) [Entitic mass] 29.3 pg Normal 26.7-34.0 [facility] Comment on above: Performed By: #### C BC #### [facility] [address] [place] [address] Dr. Belkys Fajardo MCHC (RBC) [Mass/Vol] 33.6 g/dL Normal 29.9-35.2 [facility] Comment on above: Performed By: #### C BC #### [facility] [address] [place] [address] Dr. Belkys Fajardo MCV (RBC) [Entitic vol] 87.2 fL Normal 81.0-99.0 [facility] Comment on above: Performed By: #### C BC #### [facility] [address] [place] [address] Dr. Belkys Fajardo MONO # 0.6 103/ul Normal 0.3-0.8 [facility] Comment on above: Performed By: #### C BC #### [facility] [address] [place] [address] Dr. Belkys Fajardo Monocytes/100 WBC (Bld) 5.5 % Normal 1.7-12.0 [facility] Comment on above: Performed By: #### C BC #### [facility] [address] [place] [address] Dr. Belkys Fajardo NEUT # 7.1 103/ul Critically high 1.4-6.5 [facility] Comment on above: Performed By: #### C BC #### [facility] [address] [place] [address] Dr. Belkys Fajardo Neutrophils/100 WBC (Bld) 69.5 % Normal 43.0-75.0 [facility] Comment on above: Performed By: #### C BC #### [facility] [address] [place] [address] Dr. Belkys Fajardo Platelet mean volume (Bld) [Entitic vol] 10.3 fL Normal 9.5-13.5 [facility] Comment on above: Performed By: #### C BC #### [facility] [address] [place] [address] Dr. Belkys Fajardo PLT 258 103/ul Normal 150-450 [facility] Comment on above: Performed By: #### C BC #### [facility] [address] [place] [address] Dr. Belkys Fajardo RBC 3.75 106/ul Critically low 4.20-5.40 [facility] Comment on above: Performed By: #### C BC #### [facility] [address] [place] [address] Dr. Belkys Fajardo WBC 10.2 103/ul Normal 4.0-11.0 [facility] Comment on above: Performed By: #### C BC #### [facility] [address] [place] [address] Dr. Belkys Fajardo CTA CHEST WO W [...] Date: 2021-08-22 08:31 Normal [facility] Covid-19 PCR (CVDTBH)on 07-27 SARS-CoV-2 (COVID-19) RNA DEVIN+probe Ql (Unsp spec) Not detected Normal NOT DETECTED [facility] Comment on above: Result Comment: When diagnostic [...] for this test is supported by the [employer] of Health and Human Service's declaration that [...] By: #### C VDTBH #### [facility] [address] [place] [address] Dr. Belkys Fajardo PROF 14(COMP METB)on 022 Albumin [Mass/Vol] 3.0 g/dL Critically low 3.4-5.0 Th e [facility] Comment on above: Performed By: #### A FPTET #### [facility] [address] [address] [address] Belkys Fajardo Albumin/Globulin [Mass ratio] 0.8 {ratio} Normal [facility] Comment on above: Performed By: #### A FPTET #### [facility] [address] [place] [address] Dr. Belkys Fajardo ALP [Catalytic activity/Vol] 52 U/L Normal 46-116 [facility] Comment on above: Performed By: #### A FPTET #### [facility] [address] [place] [address] Dr. Belkys Fajardo ALT [Catalytic activity/Vol] 32 U/L Normal 14-59 [facility] Comment on above: Performed By: #### A FPTET #### [facility] [address] [place] [address] Dr. Belkys Fajardo Anion gap [Moles/Vol] 12.8 mmol/L Normal [facility] Comment on above: Performed By: #### A FPTET #### [facility] [address] [place] [address] Dr. Belkys Fajardo AST [Catalytic activity/Vol] 17 U/L Normal 15-37 [facility] Comment on above: Performed By: #### A FPTET #### [facility] [address] [place] [address] Dr. Belkys Fajardo Bilirubin [Mass/Vol] 0.3 mg/dL Normal 0.2-1.0 [facility] Comment on above: Performed By: #### A FPTET #### [facility] [address] [place] [address] Dr. Belkys Fajardo Calcium [Mass/Vol] 8.5 mg/dL Normal 8.5-10.1 [facility] Comment on above: Performed By: #### A FPTET #### [facility] [address] [place] [address] Dr. Belkys Fajardo Chloride [Moles/Vol] 103 mmol/L Normal 98-107 [facility] Comment on above: Performed By: #### A FPTET #### [facility] [address] [place] [address] Dr. Belkys Fajardo CO2 [Moles/Vol] 24.7 mmol/L Normal 21.0-32.0 [facility] Comment on above: Performed By: #### A FPTET #### [facility] [address] [place] [address] Dr. Belkys Fajardo Creatinine [Mass/Vol] 0.46 mg/dL Critically low 0.55-1.02 [facility] Comment on above: Performed By: #### A FPTET #### [facility] [address] [address] [address] Belkys Fajardo EGFR-AF DOMINICAN >60 Normal >=60 The [facility] Comment on above: Performed By: #### A FPTET #### [facility] [address] [place] [address] Dr. Belkys Fajardo EGFR-NON AF DOMINICAN >60 Normal >=60 [facility] Comment on above: Performed By: #### A FPTET #### [facility] [address] [place] [address] Dr. Belkys Fajardo Globulin (S) [Mass/Vol] 3.7 g/dL Normal [facility] Comment on above: Performed By: #### A FPTET #### [facility] [address] [address] [address] Belkys Fajardo Glucose [Mass/Vol] 84 mg/dL Normal 74-106 [facility] Comment on above: Performed By: #### A FPTET #### [facility] [address] [place] [address] Dr. Belkys Fajardo Potassium [Moles/Vol] 3.5 mmol/L Normal 3.5-5.1 [facility] Comment on above: Performed By: #### A FPTET #### [facility] [address] [place] [address] Dr. Belkys Fajardo Protein [Mass/Vol] 6.7 g/dL Normal 6.4-8.2 [facility] Comment on above: Performed By: #### A FPTET #### [facility] [address] [place] [address] Dr. Belkys Fajardo Sodium [Moles/Vol] 137 mmol/L Normal 136-145 [facility] Comment on above: Performed By: #### A FPTET #### [facility] [address] [place] [address] Dr. Belkys Fajardo Urea nitrogen [Mass/Vol] 7.0 mg/dL Normal 7.0-18.0 [facility] Comment on above: Performed By: #### A FPTET #### [facility] [address] [place] [address] Dr. Belkys Fajardo Urea nitrogen/Creatinine [Mass ratio] 15.2 mg/mg Normal [facility] Comment on above: Performed By: #### A FPTET #### [facility] [address] [place] [address] Dr. Belkys Fajardo TROPONIN, HIGH SENSITIVITYon 08-22-2021 HSTROP <4.0 Normal 4.0-51.3 [facility] Comment on above: Result Comment: CUT- OFF POINTS HAVE BEEN ESTABLISHED BASED ON THE FOURTH UNIVERSAL DEFINITIONS OF MYOCARDIAL INFARCTION. THE UPPER REFERENCE LIMIT (URL) OF TROPONIN, DEFINED THE 99TH PERCENTILE OF cTnI DISTRIBUTION IN A REFERENCE POPULATION, HAS BEEN CONFIRMED THE DECISION THRESHOLD FOR PA DIAGNOSIS. Performed By: #### A FPTET #### [facility] [address] [place] [address] Dr. Belkys Fajardo CHLAMYDIA/GONOCOCCUS DEVIN (SW AB/URINE/PAPon 08-21-2021 Chlamydia trachomatis, DEVIN Negative Normal Negative [facility] Comment on above: Performed By: #### C T/NGNA #### [facility] [address] [place] [address] Dr. Belkys Fajardo Neisseria gonorrhoeae, DEVIN Negative Normal Negative [facility] Comment on above: Performed By: #### C T/NGNA #### [facility] [address] [place] [address] Dr. Belkys Fajardo VAGINITIS/VAGINOSIS DNA PROB Gab 08-20-2021 Lani species Negative Normal Negative [facility] Comment on above: Performed By: #### A FPTET #### [facility] [address] [place] [address] Dr. Belkys Fajardo Gardnerella vaginalis Negative Normal Negative [facility] Comment on above: Performed By: #### A FPTET #### [facility] [address] [address] [address] Belkys Fajardo Trichomonas vaginalis Negative Normal Negative [facility] Comment on above: Performed By: #### A FPTET #### [facility] [address] [place], [place] [address] Dr. Belkys Fajardo Vital Signs Date Time Vital Sign Value Performing Clinician Facility 07-28-2022 10:15-0400 Body height 170.18 cm Nick Ball Other [facility] Other 07-28-2022 10:15-0400 Body mass index (BMI) [Ratio] 27.81 kg/m2 Nick Ball Other [facility] Other 07-28-2022 10:15-0400 Body weight 80.56 kg Nick Ball Other [facility] Other 07-28-2022 10:15-0400 Diastolic blood pressure 75 mm[Hg] Nick Ball Other [facility] Other 07-28-2022 10:15-0400 Systolic blood pressure 112 mm[Hg] Nick Ball Other [facility] Other 06-04-2022 17:00-0500 Body height 170.18 cm Cristal Guidry Other [facility] Other 06-04-2022 17:00-0500 Body mass index (BMI) [Ratio] 28.19 kg/m2 Cristal Guidry Other [facility] Other 06-04-2022 17:00-0500 Body temperature 97.4 [degF] Cristal Guidry Other [facility] Other 06-04-2022 17:00-0500 Body weight 81.65 kg Cristal Guidry Other [facility] Other 06-04-2022 17:00-0500 Respiratory rate 18 /min Cristal Guidry Other [facility] Other 06-04-2022 17:00-0500 SaO2% (BldA) [Mass fraction] 98 % Cristal Guidry Other [facility] Other 09-06-2021 02:05-0400 Body weight 77.[address] CHEYENNE MEADE . [facility] Comment on above: Performed By: #### AFPTET #### [facility] [address] [place] [address] Dr. Belkys Fajardo Encounters Encounter Date Encounter Type Care Provider Facility Start: 10-05-2023 End: 10-05-2023 ambulatory CHEYENNE WOLF Not Available Start: 09-21-2023 End: 09-21-2023 ambulatory CHEYENNE WOLF Not Available Start: 09-20-2023 End: 09-21-2023 Emergency department patient visit [facility] Start: 09-07-2023 End: 09-07-2023 ambulatory CHEYENNE WOLF Not Available Start: 08-24-2023 End: 08-24-2023 ambulatory CHEYENNE WOLF Not Available Start: 08-10-2023 End: 08-10-2023 ambulatory CHEYENNE WOLF Not Available Start: 07-28-2023 End: 07-30-2023 ambulatory [facility] Start: 07-26-2023 End: 07-26-2023 Emergency department patient visit [facility] Start: 07-25-2023 End: 07-27-2023 ambulatory [facility] Start: 07-13-2023 End: 07-13-2023 ambulatory CHEYENNE WOLF Not Available Start: 06-15-2023 End: 06-15-2023 ambulatory CHEYENNE WOLF Not Available Start: 05-16-2023 End: 05-16-2023 ambulatory CHEYENNE CESPEDESO Not Available Start: 04-08-2023 End: 04-08-2023 ambulatory CHEYENNE CESPEDESO Not Available Start: 07-28-2022 End: 07-28-2022 ambulatory Nick Leonardo Other [facility] Other Start: 07-28-2022 Office outpatient vi sit 15 minutes Nikc Leonardo [facility] Start: 07-28-2022 Telephone encounter Nick Leonardo FP [facility] Start: 06-04-2022 End: 06-04-2022 ambulatory Cristal Guidry Other [facility] Other Start: 06-04-2022 Office outpatient ne w [...] End: 04-10-2021 Subsequent hospital visit by physician [facility] Supervisor [employer] [facility] EKG Comment on above: Palpitations; Post-COVID [...] 04/15/2021 Office Visit Cardiology Yogi Marquez MD [address] [place] [address] [facility] Start: 11-26-2020 Influenza vaccination Flu vaccine (# 1) [facility] Start: 10-08-2020 DTaP/Tdap/Td vaccine (7 - Td or Tdap) DTaP/Tdap/Td vaccine (7 - Td or Tdap) [facility] Start: 2013 Screening for malign ant neoplasm of cervix Pap smear [facility] Start: 10-30-2007 HIV screening HIV screen [facility] Start: 2004 Depression Screen Depression Screen [facility] Start: 1997 COVID-19 Vaccine (1) COVID-19 Vaccin e (1) [facility] Start: 1993 Varicella vaccine (1 of 2 - 2-dose childhood series) Varicella vaccine (1 of 2 - 2-dose childhood series) [facility] Start: 1992 Hepatitis C screening Hepatitis C sc reen [facility] Payers Date Payer Category Payer Unknown [id number]. [id number] 1992 Unknown [id number] 2.16.84 [id number] 1992 Unknown [id number] 2.16.84 [id number] 1992 Unknown [id number] 2.16.84 0.1.944527.3.579.2.593 1992 Unknown [id number] 2.16.84 0.1.682714.3.579.2.593 1992 Unknown [id number] 2.16.84 0.1.705220.3.579.2.593 1992 Unknown [id number] 2.16.84 0.1.773614.3.579.2.593 1992 Unknown [id number] 2.16.84 0.1.023134.3.579.2.593 1992 Unknown [id number] 2.16.84 0.1.625189.3.579.2.593 1992 Unknown [id number] 2.16.84 0.1.035822.3.579.2.593 1992 Unknown [id number] 2.16.84 0.1.700657.3.579.2.593 1992 Unknown [id number] 2.16.84 0.1.541466.3.579.2.593 1992 Unknown [id number] 2.16.84 0.1.534476.3.579.2.593 1992 Unknown [id number] 2.16.84 0.1.061061.3.579.2.593 1992 Unknown [id number] 2.16.8 40.1.779492.3.579.2.173 1992 Unknown [id number] 2.16.8 40.1.646983.3.579.2.173 1992 Unknown [id number] 2.16.8 40.1.457808.3.579.2.173 1992 Unknown [id number] 2.16.8 [id number] 1992 Unknown [id number] 2.16.84 [id number] 1992 Unknown [id number] 2.16.84 0.1.142009.3.579.2.9 1992 Unknown [id number] 2.16.84 0.1.749720.3.579.2.1258 1992 Unknown [id number] 2.16.84 0.1.072579.3.579.2.1258 1992 Unknown [id number] 2.16.84 0.1.329187.3.579.2.1258 1992 Unknown [id number] 2.16.84 0.1.030778.3.579.2.9 1992 Unknown [id number] 2.16.84 0.1.250958.3.579.2.1258 1992 Unknown [id number] 2.16.84 0.1.136789.3.579.2.9 1992 Unknown [id number] 2.16.84 0.1.647248.3.579.2.1259 1959 Unknown [id number] Social History Date Type Detail Facility Start: 08-29-2014 Tobacco smoking status [facility] Never smoked tobacco #[facility] Phone: Start: 08-29-2014 Tobacco use and exposure Smokeless tobacco non-user #[employer] Phone: Start: 03-09-2021 Alcohol intake Current drinke r of alcohol (finding) #[facility] Phone: Start: 03-09-2021 Alcohol intake [employer] Phone: Start: 08-29-2014 History SDOH Alcohol Comment occ. [employer] Phone: Start: 1990 Sex Assigned At Not on file M araceli [facility] Phone: Sex Assigned At Sex Assigned At Bir th [employer] [facility] Other Evaluation note 07-28-2022 Note Date & [...] Monitor for now may not need treatment [facility] Other Evaluation note 06-04-2022 Note Date & [...] other viral communicable diseases (ICD-10 - Z20.828) [facility] Other Clinical Note 01-23-2022 Note Date & Type Note Facility 01-23-2022 Note OPERATIVE NOTE OPERATION DATE: 02/18/2022 PROCEDURE: Repair of fourth degree perineal laceration. PREOPERATIVE DIAGNOSIS: Fourth degree perineal laceration. POSTOPERATIVE DIAGNOSIS: Fourth degree perineal laceration. ANESTHESIA: Epidural SURGEON: Cheyenne Meade D.O. SEISMOGRAPHER: BOBO Cole URINE OUTPUT: Yellow and clear. [...] recovery in stable condition. [facility] Clinical Note 01-23-2022 Note Date & Type Note Facility 01-23-2022 Note OP Note OPERATION DATE: 01/23/2022 PROCEDURE: Repair of fourth degree perineal laceration. PREOPERATIVE DIAGNOSIS: Fourth degree perineal laceration. POSTOPERATIVE DIAGNOSIS: Fourth degree perineal laceration. ANESTHESIA: Epidural SURGEON: Cheyenne Meade D.O. SEISMOGRAPHER: BOBO Cole URINE OUTPUT: Yellow and clear. [...] recovery in stable condition. [facility] Clinical Note 01-23-2022 Note Date & Type Note Facility 01-23-2022 Note OPERATIVE NOTE OPERATION DATE: 02/10/2022 PROCEDURE: Repair of fourth degree laceration. PREOPERATIVE DIAGNOSIS: Fourth degree laceration. POSTOPERATIVE DIAGNOSIS: Fourth degree laceration. ANESTHESIA: General. SURGEON: Cheyenne Meade D.O. SEISMOGRAPHER: BOBO URINE OUTPUT: Yellow and clear. BLOOD [...] sheath and this was done in a [id number]-xi-[id number] fashion. This was performed using 3-0 Vicryl. [...] tolerated this procedure well. [facility] Clinical Note 08-22-2021 Note Date & Type [...] VO Date: 2021-08-22 07:30 [facility] Evaluation note Note Date & Type Note Facility Evaluation note Diagnosis Palpitations Post-COVID chronic palpitations Shortness of breath Lightheaded Dizziness and giddiness Dizziness Dizziness and giddiness documented in this encounter #[facility] Phone: Evaluation note Note Date & Type Note Facility Evaluation note No Information [employer] Other History general Narrative - Reported Note Date & Type Note Facility History general Narrative - Reported Type Medical History POTS Medical History sinus tachycardia Surgical History 4th degree vaginal tear after g iving 2021 [employer] Other History general Narrative - Reported Note Date & Type Note Facility History general Narrative - Reported Type Medical History POTS Medical History sinus tachycardia Medical History Anxiety, generalized Surgical History 4th degree vaginal t ear after giving 2021 Surgical History MASTOPEXY OF BOTH BR EASTS WITH INSERTION OF SALINE IMPLANTS Hospitalization History SEE SURGICAL HX [facility] [facility] Other Reason for Referral Specialty Diagnoses / Procedures Referred By Willy smith Referred To Contact Cardiology Diagnoses Palpitations Post-COVID chronic palpitations Shortness of breath Lightheaded Dizziness Procedures Holter Monitor 24 Hour Yogi Marquez MD [address] [place] [id number] Referral ID Status Reason Start Date Expiration Date Visits Re quested Visits Authorized [id number] Open 03/09/2021 03/09/2022 1 1 Advance Directives No Advanced Directives Records FoundDocuments on File Type Date Recorded 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 Summary Purpose Family History No Family History Records FoundNo Family History Records FoundNo Family History Records Found Additional Source Comments Reason for Visit (unrecogniz ed section and content) Specialty Diagnoses / Procedures Referred By Willy smith Referred To Contact Cardiology Diagnoses Palpitations Post-COVID chronic palpitations Shortness of breath Lightheaded Dizziness Procedures Holter Monitor 24 Hour Yogi Marquez MD [address] [place] [id number] Referral ID Status Reason Start Date Expiration Date Visits Re quested Visits Authorized [id number] Open 03/09/2021 03/09/2022 1 1 Care Teams (unrecognized sec tion and content) 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 [facility] [employer] [facility]. provides no warranty or guarantee of the accuracy or completeness of information in this document.
== END 2023-10-18 19:23 | disposition home or self-care (01) ==
LOC: LAB 19:22
PROVIDERS: PCP Family Medicine; Visit Provider Physician Assistant
DX: Z34.93 Encounter for supervision of normal pregnancy, unspecified, third trimester (principal); Z3A.35 35 weeks gestation of pregnancy
CPT/HCPCS: 36415

== ENCOUNTER 2023-10-21 07:38 | Outpatient (OUT) | payer OTHER, SELFPAY ==
--- OUTSIDE RECORDS SUMMARY | 2023-10-21 07:41 | XMS_ITS | CCD ---
Author Organization [facility] Care Team Providers Care Job Order Clerk Name Role Phone Nick Leonardo DO Primary [...] Unavailable WOLF ., DR QUINN Consulting Unavailable WOFL ., DR QUINN Attending Unavailable WOLF ., [...] Unavailable WOLF ., DR QUINN Consulting Unavailable RAE, DR TUCKER Primary Care Unavailable WOLF ., DR QUINN Admitting Unavailable WOLF ., DR QUINN Attending Unavailable RAE, DR TUCKER Primary Care Unavailable JC, DR CAMILO Witt Consulting Unavailable JC, DR CAMILO Witt Attending Unavailable JC, DR CAMILO Witt Admitting Unavailable RAE, DR TUCKER Primary Care Unavailable DERIC VO Consulting Unavailable GLENN ., BRENT Consulting Unavailable ROSARIO HERNANDEZ Consulting Unavailable RAE, DR TUCKER Primary Care Unavailable KARASIK ., [...] Unavailable WOLF ., DR QUINN Consulting Unavailable RAE, DR TUCKER Primary Care Unavailable ZIEBGOKUL, DR YOGI Witt Consulting Unavailable Nick Leonardo Unavailable YOGI MARQUEZ Attending Unavailable YOGI MARQUEZ [...] MEADE Attending Unavailable CHEYENNE MEADE Attending Unavailable WOLFCHEYENNE Attending Unavailable WOLF, CHEYENNE Attending Unavailable VALERIE SADLER Attending Unavailable Medications Current Medications Medication Drug [...] [Personal history of other specified conditions] Onset: 07-28-2023 Episodic Sprains and strains (1 source) Strain [...] Cayla Thornton MD 09/21/23 Final result Normal [facility] CBC with Diffon 09-20-2023 Abs. Basophil 0.05 k/uL Normal 0.00-0.20 [facility] Comment on above: Performed By: #### C DP, PT, MG #### [facility] [address] [place] [address] [place] [address] [employer] Consultant: Rosario Linares MD Abs.Imm.Granulocyte 0.20 k/uL Normal 0.00-0.30 [facility] Comment on above: Performed By: #### C DP, PT, MG #### [address] [place] [id number] [employer] Consultant: Rosario Linares MD Abs.Neutrophil (Seg) 9.90 k/uL High 1.50-8.10 [facility] Comment on above: Performed By: #### C DP, PT, MG #### [facility] [address] [place] [address] [place] [address] [employer]: Rosario Linares MD Basophils/100 WBC (Bld) 0 % Normal 0-2 [facility] Comment on above: Performed By: #### C DP, PT, MG #### [address] [place], [facility]83 [employer] Consult[employer]: Rosario Linares MD Eosinophils (Bld) [#/Vol] 0.15 10*3/uL Normal 0.00-0.44 [facility] Comment on above: Performed By: #### C DP, PT, MG #### [facility] [address] [place] [address] Dr. [place], [facility]83 [employer]ant: Rosario Linares MD Eosinophils/100 WBC (Bld) 1 % Normal 1-4 [facility] Comment on above: Performed By: #### C DP, PT, MG #### [facility] [address] [place] [address] Dr. [place] [id number] [employer] Consultant: Rosario Linares MD Erythrocyte distribution width (RBC) [Ratio] 12.8 % Normal 11.8-14.4 [facility] Comment on above: Performed By: #### C DP, PT, MG #### [facility] [address] [place] [address] Dr. [place], [place] [id number] [employer] Consultant: Rosario Linares MD Hematocrit (Bld) [Volume fraction] 32.7 % Low 36.3-47.1 [facility] Comment on above: Performed By: #### C DP, PT, MG #### [facility] [address] [place] [address] Dr. [place], [place] [address] [employer] Consultant: Rosario Linares MD Hemoglobin (Bld) [Mass/Vol] 11.3 g/dL Low 11.9-15.1 [facility] Comment on above: Performed By: #### C DP, PT, MG #### [address] [place], [place] [address] [employer] Consultant: Rosario Linares MD Immature granulocytes/100 WBC (Bld) 2 % High 0 [facility] Comment on above: Performed By: #### C DP, PT, MG #### [address] [place], [facility]83 [employer] Consultant: Rosario Linares MD Lymphocytes (Bld) [#/Vol] 2.23 10*3/uL Normal 1.10-3.70 [facility] Comment on above: Performed By: #### C DP, PT, MG #### [facility] [address] [place] [address] [place] [address] [employer]: Rosario Linares MD Lymphocytes/100 WBC (Bld) 17 % Low 24-43 [facility] Comment on above: Performed By: #### C DP, PT, MG #### [facility] [address] [place] [address] Dr. [place], [place] [phone] [employer]: Rosario Linares MD MCH (RBC) [Entitic mass] 29.7 pg Normal 25.2-33.5 [facility] Comment on above: Performed By: #### C DP, PT, MG #### [address] [place], [place] [phone] [employer]: Rosario Linares MD MCHC (RBC) [Mass/Vol] 34.6 g/dL Normal 28.4-34.8 [facility] Comment on above: Performed By: #### C DP, PT, MG #### [address] [place] [address] [employer]: Rosario Linares MD MCV (RBC) [Entitic vol] 85.8 fL Normal 82.6-102.9 [facility] Comment on above: Performed By: #### C DP, PT, MG #### [address] [place], [facility]83 [employer] Consultant: Rosario Linares MD Monocytes (Bld) [#/Vol] 0.72 10*3/uL Normal 0.10-1.20 [facility] Comment on above: Performed By: #### C DP, PT, MG #### [address] [place], [place] [id number] [employer]: Rosario Linares MD Monocytes/100 WBC (Bld) 5 % Normal 3-12 [facility] Comment on above: Performed By: #### C DP, PT, MG #### [address] [place], [facility]83 [employer] Consultant: Rosario Linares MD Neutrophil (Seg) 75 % High 36-65 [facility] Comment on above: Performed By: #### C DP, PT, MG #### [address] [place] [address] [employer]ant: Rosario Linares MD NRBC Automated 0.0 per 100 WBC Normal 0.0 [facility] Comment on above: Performed By: #### C DP, PT, MG #### [facility] [address] [place], [place] [id number] [employer]: Rosario Linares MD Platelet mean volume (Bld) [Entitic vol] 10.2 fL Normal 8.1-13.5 [facility] Comment on above: Performed By: #### C DP, PT, MG #### [facility] [address] [place], [facility]83 [employer]ant: Rosario Linares MD Platelets (Bld) [#/Vol] 293 10*3/uL Normal 138-453 [facility] Comment on above: Performed By: #### C DP, PT, MG #### [address] [place], [place] [id number] [employer]: Rosario Linares MD RBC (Bld) [#/Vol] 3.81 10*6/uL Low 3.95-5.11 [facility] Comment on above: Performed By: #### C DP, PT, MG #### [address] [place], [place] 9809883 [employer]: Rosario Linares MD WBC (Bld) [#/Vol] 13.3 10*3/uL High 3.5-11.3 [facility] Comment on above: Performed By: #### C DP, PT, MG #### [address] [place], [place] 9673983 [employer]: Rosario Linares MD Comp Metabolic Profon 2023 Albumin [Mass/Vol] 3.5 g/dL Normal 3.5-5.2 [facility] Comment on above: Performed By: #### C P #### [address] [place], [place] 3096183 [employer]: Rosario Linares MD Albumin/Glob Ratio 1.1 Normal 1.0-2.5 [facility] Comment on above: Performed By: #### C P #### [facility] [address] [place] [address] [employer]: Rosario Linares MD Alkaline Phos 103 U/L Normal 35-104 [facility] Comment on above: Performed By: #### C P #### [facility] [address] [place] [address] [employer]ant: Rosario Linares MD ALT [Catalytic activity/Vol] 16 U/L Normal 5-33 [facility] Comment on above: Performed By: #### C P #### [facility] [address] [place], [place] 4469783 [employer]: Rosario Linares MD Anion gap [Moles/Vol] 10 mmol/L Normal 9-17 [facility] Comment on above: Performed By: #### C P #### [facility] [address] [place], [place] [phone] [employer]: Rosario Linares MD AST [Catalytic activity/Vol] 16 U/L Normal <32 [facility] Comment on above: Performed By: #### C P #### [facility] [address] [place], [place] [phone] [employer] Consultant: Rosario Linares MD Bilirubin [Mass/Vol] 0.2 mg/dL Low 0.3-1.2 [facility] Comment on above: Performed By: #### C P #### [facility] [address] [place], [place] 1698683 [employer] Consultant: Rosario Linares MD BUN/CRE Ratio 18 Normal 9-20 [facility] Comment on above: Performed By: #### C P #### [facility] [address] [place] [address] [employer]ant: Rosario Linares MD Calcium [Mass/Vol] 8.4 mg/dL Low 8.6-10.4 [facility] Comment on above: Performed By: #### C P #### [facility] [address] [place] [address] [employer] Consultant: Rosario Linares MD Chloride [Moles/Vol] 101 mmol/L Normal 98-107 [facility] Comment on above: Performed By: #### C P #### [facility] [address] [place] [address] [employer] Consultant: Rosario Linares MD CO2 [Moles/Vol] 22 mmol/L Normal 20-31 [facility] Comment on above: Performed By: #### C P #### [facility] [address] [place] [address] [employer] Consultant: Rosario Linares MD Creatinine [Mass/Vol] 0.4 mg/dL Low 0.5-0.9 [facility] Comment on above: Performed By: #### C P #### [facility] [address] [place] [address] [employer]ant: Rosario Linares MD GFR/1.73 sq M.predicted among non-blacks MDRD (S/P/Bld) [Vol rate/Area] mL/min/{1.73_m2} Normal >60 [facility] Comment on above: Result Comment: These [...] secretion. Performed By: #### C P #### [facility] [address] [place] [address] [employer]ant: Rosario Linares MD Glucose [Mass/Vol] 89 mg/dL Normal 70-99 [facility] Comment on above: Performed By: #### C P #### [facility] [address] [place] [address] [employer]ant: Rosario Linares MD Potassium [Moles/Vol] 3.7 mmol/L Normal 3.7-5.3 [facility] Comment on above: Performed By: #### C P #### [facility] [address] [place] [phone] [employer]: Rosario Linares MD Protein [Mass/Vol] 6.7 g/dL Normal 6.4-8.3 [facility] Comment on above: Performed By: #### C P #### [facility] [address] [place] [address] [employer]ant: Rosario Linares MD Sodium [Moles/Vol] 133 mmol/L Low 135-144 [facility] Comment on above: Performed By: #### C P #### [facility] [address] [place] [address] [place] [address] [employer]: Rosario Linares MD Urea nitrogen [Mass/Vol] 7 mg/dL Normal 6-20 [facility] Comment on above: Performed By: #### C P #### [facility] [address] [place] [address] Dr. [place], [place] 7429983 [employer]: Rosario Linares MD D-Dimer Teston 09-20-2023 D-Dimer Test 1.32 ug/mL FEU High 0.00-0.59 [facility] Comment on above: Result Comment: When [...] DVT. Performed By: #### D PATI #### [address] [place] [address] [employer]: Rosario Linares MD Magnesiumon 09-20-2023 Magnesium [Mass/Vol] 1.8 mg/dL Normal 1.6-2.6 [facility] Comment on above: Performed By: #### C DP, PT, MG #### [address] [place] [address] [employer]ant: Rosario Linares MD PTon 09-20-2023 INR Coag (PPP) [Relative time] 1.0 {INR} Normal [facility] Comment on above: Result Comment: Therapeutic Range: Moderate Anticoagulant Intensity: INR = 2.0-3.0 High Anticoagulant Intensity: INR = 2.5-3.5 Performed By: #### C DP, PT, MG #### [address] [place] [address] [employer]: Rosario Linares MD PT Coag (PPP) [Time] 12.8 s Normal 11.7-14.1 [facility] Comment on above: Performed By: #### C DP, PT, MG #### [address] [place] [address] [employer]: Rosario Linares MD Thyroid Stim. Horm.on 2023 Thyroid Stim. Horm. 2.11 uIU/mL Normal 0.30-5.00 [facility] Comment on above: Performed By: #### T SH #### [facility] [address] [place], [place] [phone] [employer]: Rosario Linares MD Troponinon 09-20-2023 Troponin, High Sens <6 Normal 0-14 [facility] Comment on above: Result Comment: High Sensitivity Troponin values cannot be compared with other Troponin methodologies. Performed By: #### T ROPI #### [facility] [address] [place], [place] [phone] [employer]: Rosario Linares MD Basic Metabolic Profon 07-25 Anion gap [Moles/Vol] 13 mmol/L Normal 9-17 [facility] Comment on above: Performed By: #### C DP, BMP #### [facility] [address] [place], [place] 3348283 [employer]ant: Rosario Linares MD BUN/CRE Ratio 18 Normal 9-20 [facility] Comment on above: Performed By: #### C DP, BMP #### [facility] [address] [place], [place] [phone] [employer]ant: Rosario Linares MD Calcium [Mass/Vol] 8.7 mg/dL Normal 8.6-10.4 [facility] Comment on above: Performed By: #### C DP, BMP #### [facility] [address] [place], [place] 6806383 [employer]ant: Rosario Linares MD Chloride [Moles/Vol] 100 mmol/L Normal 98-107 [facility] Comment on above: Performed By: #### C DP, BMP #### [facility] [address] [place] [address] [employer] Consultant: Rosario Linares MD CO2 [Moles/Vol] 21 mmol/L Normal 20-31 [facility] Comment on above: Performed By: #### C DP, BMP #### [facility] [address] [place] [address] [employer] Consultant: Rosario Linares MD Creatinine [Mass/Vol] 0.4 mg/dL Low 0.5-0.9 [facility] Comment on above: Performed By: #### C DP, BMP #### [facility] [address] [place], [place] 4488683 [employer] Consultant: Rosario Linares MD GFR/1.73 sq M.predicted among non-blacks MDRD (S/P/Bld) [Vol rate/Area] mL/min/{1.73_m2} Normal >60 [facility] Comment on above: Result Comment: These [...] Performed By: #### C DP, BMP #### [facility] [address] [place] [address] [employer] Consultant: Rosario Linares MD Glucose [Mass/Vol] 115 mg/dL High 70-99 [facility] Comment on above: Performed By: #### C DP, BMP #### [address] [place] [address] [employer] Consultant: Rosario Linares MD Potassium [Moles/Vol] 3.4 mmol/L Low 3.7-5.3 [facility] Comment on above: Performed By: #### C DP, BMP #### [facility] [address] [place] [address] [employer] Consultant: Rosario Linares MD Sodium [Moles/Vol] 134 mmol/L Low 135-144 [facility] Comment on above: Performed By: #### C DP, BMP #### [facility] [address] [place] [address] [employer]ant: Rosario Linares MD Urea nitrogen [Mass/Vol] 7 mg/dL Normal 6-20 [facility] Comment on above: Performed By: #### C DP, BMP #### [address] [place], [place] 2434883 [employer] Consultant: Rosario Linares MD CBC with Diffon 07-26-2023 Abs. Basophil 0.04 k/uL Normal 0.00-0.20 [facility] Comment on above: Performed By: #### C DP, BMP #### [address] [place], [place] 4173483 [employer]ant: Rosario Linares MD Abs.Imm.Granulocyte 0.07 k/uL Normal 0.00-0.30 [facility] Comment on above: Performed By: #### C DP, BMP #### [address] [place], [place] 9245583 [employer]: Rosario Linares MD Abs.Neutrophil (Seg) 8.51 k/uL High 1.50-8.10 [facility] Comment on above: Performed By: #### C DP, BMP #### [address] [place], [place] 0960983 [employer]ant: Rosario Linares MD Basophils/100 WBC (Bld) 0 % Normal 0-2 [facility] Comment on above: Performed By: #### C DP, BMP #### [address] [place], [place] 2449383 [employer] Consultant: Rosario Linares MD Eosinophils (Bld) [#/Vol] 0.11 10*3/uL Normal 0.00-0.44 [facility] Comment on above: Performed By: #### C DP, BMP #### [address] [place], [place] 7031383 [employer]ant: Rosario Linares MD Eosinophils/100 WBC (Bld) 1 % Normal 1-4 [facility] Comment on above: Performed By: #### C DP, BMP #### [facility] [address] [place] [address] [employer] Consultant: Rosario Linares MD Erythrocyte distribution width (RBC) [Ratio] 13.0 % Normal 11.8-14.4 [facility] Comment on above: Performed By: #### C DP, BMP #### [address] [place] [address] [employer] Consultant: Rosario Linares MD Hematocrit (Bld) [Volume fraction] 36.2 % Low 36.3-47.1 [facility] Comment on above: Performed By: #### C DP, BMP #### [address] [place] [address] [employer] Consultant: Rosario Linares MD Hemoglobin (Bld) [Mass/Vol] 12.2 g/dL Normal 11.9-15.1 [facility] Comment on above: Performed By: #### C DP, BMP #### [address] [place] [address] [employer] Consultant: Rosario Linares MD Immature granulocytes/100 WBC (Bld) 1 % High 0 [facility] Comment on above: Performed By: #### C DP, BMP #### [address] [place], [place] [address] [employer] Consultant: Rosario iLnares MD Lymphocytes (Bld) [#/Vol] 2.63 10*3/uL Normal 1.10-3.70 [facility] Comment on above: Performed By: #### C DP, BMP #### [address] [place] [address] [employer] Consultant: Rosario Linares MD Lymphocytes/100 WBC (Bld) 22 % Low 24-43 [facility] Comment on above: Performed By: #### C DP, BMP #### [facility] [address] [place] [address] [employer] Consultant: Rosario Linares MD MCH (RBC) [Entitic mass] 29.8 pg Normal 25.2-33.5 [facility] Comment on above: Performed By: #### C DP, BMP #### [facility] [address] [place] [address] [employer] Consultant: Rosario Linares MD MCHC (RBC) [Mass/Vol] 33.7 g/dL Normal 28.4-34.8 [facility] Comment on above: Performed By: #### C DP, BMP #### [address] [place] [address] [employer] Consultant: Roasrio Linares MD MCV (RBC) [Entitic vol] 88.5 fL Normal 82.6-102.9 [facility] Comment on above: Performed By: #### C DP, BMP #### [address] [place], [facility]83 [employer] Consultant: Rosario Linares MD Monocytes (Bld) [#/Vol] 0.44 10*3/uL Normal 0.10-1.20 [facility] Comment on above: Performed By: #### C DP, BMP #### [address] [place], [facility]83 [employer] Consultant: Rosario Linares MD Monocytes/100 WBC (Bld) 4 % Normal 3-12 [facility] Comment on above: Performed By: #### C DP, BMP #### [facility] [address] [place], [facility]83 [employer] Consultant: Rosario Linares MD Neutrophil (Seg) 72 % High 36-65 [facility] Comment on above: Performed By: #### C DP, BMP #### [facility] [address] [place], [facility]83 [employer] Consultant: Rosario Linares MD NRBC Automated 0.0 per 100 WBC Normal 0.0 [facility] Comment on above: Performed By: #### C DP, BMP #### [facility] [address] [place], [place] 0134683 [employer] Consultant: Rosario Linares MD Platelet mean volume (Bld) [Entitic vol] 10.3 fL Normal 8.1-13.5 [facility] Comment on above: Performed By: #### C DP, BMP #### [facility] [address] [place] [address] [employer] Consultant: Rosario Linares MD Platelets (Bld) [#/Vol] 289 10*3/uL Normal 138-453 [facility] Comment on above: Performed By: #### C DP, BMP #### [facility] [address] [place], [place] 77[address] ([address] [employer]ant: Rosario Linares MD RBC (Bld) [#/Vol] 4.09 10*6/uL Normal 3.95-5.11 [facility] Comment on above: Performed By: #### C DP, BMP #### [address] [place] [address] [employer]: Rosario Linares MD WBC (Bld) [#/Vol] 11.8 10*3/uL High 3.5-11.3 [facility] Comment on above: Performed By: #### C DP, BMP #### [facility] [address] [place] [address] [employer] Consultant: Rosario Linares MD Troponinon 07-26-2023 Troponin, High Sens 6 ng/L Normal 0-14 [facility] Comment on above: Result Comment: High Sensitivity Troponin values cannot be compared with other Troponin methodologies. Performed By: #### T ROPI #### [facility] [address] [place], [place] 4609183 [employer]: Rosario Linares MD UA w/Reflex Cultureon 2023 Bilirubin, SemiQt,Ur Negative Normal [facility] Comment on above: Performed By: #### C DP, BMP #### [facility] [address] [place], [place] [phone] [employer]: Rosario Linares MD Blood, Urine Negative Normal NEG [facility] Comment on above: Performed By: #### C DP, BMP #### [facility] [address] [place], [place] 0251683 [employer]: Rosario Linares MD Clarity (U) Clear Normal CLEAR [facility] Comment on above: Performed By: #### C DP, BMP #### [facility] [address] [place], [place] 9006383 [employer]: Rosario Linares MD Color (U) Yellow Normal YEL [facility] Comment on above: Performed By: #### C DP, BMP #### [facility] [address] [place], [place] 6274483 [employer]: Rosario Linares MD Glucose Ql (U) Negative Normal NEG [facility] Comment on above: Performed By: #### C DP, BMP #### [facility] [address] [place], [place] 7091883 [employer] Consultant: Rosario Linares MD Ketones Ql (U) Negative Normal NEG [facility] Comment on above: Performed By: #### C DP, BMP #### [facility] [address] [place], [place] 6606083 [employer]: Rosario Linares MD Leukocyte esterase Test strip Ql (U) SMALL Abnormal NEG [facility] Comment on above: Performed By: #### C DP, BMP #### [facility] [address] [place], [place] 8444783 [employer]ant: Rosario Linares MD Nitrite,Ur Negative Normal [facility] Comment on above: Performed By: #### C DP, BMP #### [facility] [address] [place], [place] 0353383 [employer]: Rosario Linares MD PH,Ur 8.0 Normal 5.0-9.0 [facility] Comment on above: Performed By: #### C DP, BMP #### [facility] [address] [place], [facility]83 [employer] Consultant: Rosario Linares MD Protein Ql (U) Negative Normal NEG [facility] Comment on above: Performed By: #### C DP, BMP #### [address] [place], [place] 2299783 [employer]: Rosario Linares MD Spec. [place],Ur 1.015 Normal 1.010-1.020 [facility] Comment on above: Performed By: #### C DP, BMP #### [facility] [address] [place] [address] Dr. [place], [place] 8078083 [employer]: Rosario Linares MD Urobilinogen,Ur Normal Normal 0.0-1.0 [facility] Comment on above: Performed By: #### C DP, BMP #### [address] [place] [address] [employer] Consult[employer]: Rosario Linares MD Urinalysis,Microon 4 Bacteria TRACE Abnormal NONE [facility] Comment on above: Performed By: #### C DP, BMP #### [facility] [address] [place], [place] 9343083 [employer]: Rosario Linares MD Epithelial cells LM Ql (Urine sed) 5 TO 10 Normal 0-25 [facility] Comment on above: Performed By: #### C DP, BMP #### [facility] [address] [place], [place] 7305483 [employer] Consult[employer]: Rosario Linares MD Urine RBC's None Normal 0-2 [facility] Comment on above: Performed By: #### C DP, BMP #### [facility] [address] [place] [address] [employer] Consultant: Rosario Linares MD Urine WBC's 2 TO 5 Normal 0-5 [facility] Comment on above: Performed By: #### C DP, BMP #### [facility] [address] [place] [address] [employer] Consultant: Rosario Linares MD COVID/FLU/RSV RT-PCRon 06-04 SARS-CoV-2 (COVID-19) RNA DEIVN+probe Ql (Unsp spec) Negative [facility] Other COVID/FLU/RSV RT-PCR Negative [facility] Other Quick Strepon 06-04-2022 S. pyogenes Org specific cx Ql (Throat) Negative [facility] Other Quick Strep [facility] Other CBC AUTO DIFFon 01-24-2022 BASO # 0.1 103/ul Normal 0.0-0.1 [facility] Comment on above: Performed By: #### A FPTET #### [facility] [address] [place] [address] Dr. Belkys Fajardo Basophils/100 WBC (Bld) 0.3 % Normal 0.2-2.0 [facility] Comment on above: Performed By: #### A FPTET #### [facility] [address] [address] [address] Belkys Fajardo EO # 0.1 103/ul Normal 0.0-0.7 [facility] Comment on above: Performed By: #### A FPTET #### [facility] [address] [place] [address] Dr. Belkys Fajardo Eosinophils/100 WBC (Bld) 0.9 % Normal 0.9-7.0 [facility] Comment on above: Performed By: #### A FPTET #### [facility] [address] [address] [address] Belkys Fajardo Erythrocyte distribution width (RBC) [Ratio] 14.0 % Normal 11.0-15.0 [facility] Comment on above: Performed By: #### A FPTET #### [facility] [address] [place] [address] Dr. Belkys Fajardo Hematocrit (Bld) [Volume fraction] 24.8 % Critically low 36.0-48.0 [facility] Comment on above: Performed By: #### A FPTET #### [facility] [address] [place] [address] Dr. Belkys Fajardo Hemoglobin (Bld) [Mass/Vol] 8.2 g/dL Critically low 12.0-16.0 [facility] Comment on above: Performed By: #### A FPTET #### [facility] [address] [place] [address] Dr. Belkys Fajardo IG # 0.23 10e3/ul Critically high 0.00-0.03 [facility] Comment on above: Performed By: #### A FPTET #### [facility] [address] [place] [address] Dr. Belkys Fajardo IG % 1.5 % Critically high 0.0-0.5 [facility] Comment on above: Performed By: #### A FPTET #### [facility] [address] [place] [address] Dr. Belkys Fajardo LYMPH # 2.4 103/ul Normal 1.2-3.8 [facility] Comment on above: Performed By: #### A FPTET #### [facility] [address] [place] [address] Dr. Belkys Fajardo Lymphocytes/100 WBC (Bld) 15.5 % Critically low 20.5-60.0 [facility] Comment on above: Performed By: #### A FPTET #### [facility] [address] [place] [address] Dr. Belkys Fajardo MANUAL DIFF REQ NO Normal [facility] Comment on above: Performed By: #### A FPTET #### [facility] [address] [place] [address] Dr. Belkys Fajardo MCH (RBC) [Entitic mass] 28.5 pg Normal 26.7-34.0 [facility] Comment on above: Performed By: #### A FPTET #### [facility] [address] [place] [address] Dr. Belkys Fajardo MCHC (RBC) [Mass/Vol] 33.1 g/dL Normal 29.9-35.2 [facility] Comment on above: Performed By: #### A FPTET #### [facility] [address] [place] [address] Dr. Belkys Faajrdo MCV (RBC) [Entitic vol] 86.1 fL Normal 81.0-99.0 [facility] Comment on above: Performed By: #### A FPTET #### [facility] [address] [place] [address] Dr. Belkys Fajardo MONO # 0.8 103/ul Normal 0.3-0.8 [facility] Comment on above: Performed By: #### A FPTET #### [facility] [address] [place] [address] Dr. Belkys Fajardo Monocytes/100 WBC (Bld) 5.4 % Normal 1.7-12.0 [facility] Comment on above: Performed By: #### A FPTET #### [facility] [address] [place] [address] Dr. Belkys Fajardo NEUT # 11.6 103/ul Critically high 1.4-6.5 [facility] Comment on above: Performed By: #### A FPTET #### [facility] [address] [place] [address] Dr. Belkys Fajardo Neutrophils/100 WBC (Bld) 76.4 % Critically high 43.0-75.0 [facility] Comment on above: Performed By: #### A FPTET #### [facility] [address] [place] [address] Dr. Belkys Fajardo Platelet mean volume (Bld) [Entitic vol] 10.2 fL Normal 9.5-13.5 [facility] Comment on above: Performed By: #### A FPTET #### [facility] [address] [place] [address] Dr. Belkys Fajardo PLT 235 103/ul Normal 150-450 [facility] Comment on above: Performed By: #### A FPTET #### [facility] [address] [place] [address] Dr. Belkys Fajardo RBC 2.88 106/ul Critically low 4.20-5.40 [facility] Comment on above: Performed By: #### A FPTET #### [facility] [address] [place] [address] Dr. Belkys Fajardo WBC 15.2 103/ul Critically high 4.0-11.0 [facility] Comment on above: Performed By: #### A FPTET #### [facility] [address] [place] [address] Dr. Belkys Fajardo CBC AUTO DIFFon 01-23-2022 BASO # 0.1 103/ul Normal 0.0-0.1 [facility] Comment on above: Performed By: #### A FPTET #### [facility] [address] [place] [address] Dr. Belkys Fajardo Basophils/100 WBC (Bld) 0.4 % Normal 0.2-2.0 [facility] Comment on above: Performed By: #### A FPTET #### [facility] [address] [place] [address] Dr. Belkys Fajardo EO # 0.1 103/ul Normal 0.0-0.7 [facility] Comment on above: Performed By: #### A FPTET #### [facility] [address] [place] [address] Dr. Belkys Fajarod Eosinophils/100 WBC (Bld) 0.5 % Critically low 0.9-7.0 [facility] Comment on above: Performed By: #### A FPTET #### [facility] [address] [place] [address] Dr. Belkys Fajardo Erythrocyte distribution width (RBC) [Ratio] 13.8 % Normal 11.0-15.0 [facility] Comment on above: Performed By: #### A FPTET #### [facility] [address] [place] [address] Dr. Belkys Fajardo Hematocrit (Bld) [Volume fraction] 32.5 % Critically low 36.0-48.0 [facility] Comment on above: Performed By: #### A FPTET #### [facility] [address] [place] [address] Dr. Belkys Fajardo Hemoglobin (Bld) [Mass/Vol] 11.0 g/dL Critically low 12.0-16.0 [facility] Comment on above: Performed By: #### A FPTET #### [facility] [address] [place] [address] Dr. Belkys Fajardo IG # 0.31 10e3/ul Critically high 0.00-0.03 [facility] Comment on above: Performed By: #### A FPTET #### [facility] [address] [place] [address] Dr. Belkys Fajardo IG % 1.6 % Critically high 0.0-0.5 [facility] Comment on above: Performed By: #### A FPTET #### [facility] [address] [place] [address] Dr. Belkys Fajardo LYMPH # 2.0 103/ul Normal 1.2-3.8 [facility] Comment on above: Performed By: #### A FPTET #### [facility] [address] [place] [address] Dr. Belkys Fajardo Lymphocytes/100 WBC (Bld) 10.2 % Critically low 20.5-60.0 [facility] Comment on above: Performed By: #### A FPTET #### [facility] [address] [place] [address] Dr. Belkys Fajardo MANUAL DIFF REQ NO Normal [facility] Comment on above: Performed By: #### A FPTET #### [facility] [address] [place] [address] Dr. Belkys Fajardo MCH (RBC) [Entitic mass] 28.4 pg Normal 26.7-34.0 [facility] Comment on above: Performed By: #### A FPTET #### [facility] [address] [place] [address] Dr. Belkys Fajardo MCHC (RBC) [Mass/Vol] 33.8 g/dL Normal 29.9-35.2 [facility] Comment on above: Performed By: #### A FPTET #### [facility] [address] [place] [address] Dr. Belkys Fajardo MCV (RBC) [Entitic vol] 83.8 fL Normal 81.0-99.0 [facility] Comment on above: Performed By: #### A FPTET #### [facility] [address] [place] [address] Dr. Belkys Fajardo MONO # 0.9 103/ul Critically high 0.3-0.8 [facility] Comment on above: Performed By: #### A FPTET #### [facility] [address] [place] [address] Dr. Belkys Fajardo Monocytes/100 WBC (Bld) 4.8 % Normal 1.7-12.0 [facility] Comment on above: Performed By: #### A FPTET #### [facility] [address] [place] [address] Dr. Belkys Fajardo NEUT # 16.0 103/ul Critically high 1.4-6.5 [facility] Comment on above: Performed By: #### A FPTET #### [facility] [address] [place] [address] Dr. Belkys Fajardo Neutrophils/100 WBC (Bld) 82.5 % Critically high 43.0-75.0 [facility] Comment on above: Performed By: #### A FPTET #### [facility] [address] [place] [address] Dr. Belkys Fajardo Platelet mean volume (Bld) [Entitic vol] 10.1 fL Normal 9.5-13.5 [facility] Comment on above: Performed By: #### A FPTET #### [facility] [address], [place] [address] Dr. eBlkys Fajardo PLT 301 103/ul Normal 150-450 [facility] Comment on above: Performed By: #### A FPTET #### [facility] [address], [place] [address] Dr. Belkys Fajardo RBC 3.88 106/ul Critically low 4.20-5.40 [facility] Comment on above: Performed By: #### A FPTET #### [facility] [address], [place] [address] Dr. Belkys Fajardo WBC 19.3 103/ul Critically high 4.0-11.0 [facility] Comment on above: Performed By: #### A FPTET #### [facility] [address] [address] [address] Belkys Fajardo CULTURE URINEon 01-23-2022 CULTURE URINE Culture Observations : LIGHT GROWTH OF MIXED GENITAL HEYDI. NO POTENTIAL PATHOGENS SEEN. Normal [facility] Comment on above: Performed By: #### U ACSIND, UMICRO #### [facility] [address], [place] [address] Dr. Belkys Fajardo Covid-19 PCR ([facility])on 12-27 SARS-CoV-2 (COVID-19) RNA DEVIN+probe Ql (Unsp spec) Not detected Normal NOT DETECTED [facility] Comment on above: Result Comment: When diagnostic [...] for this test is supported by the [place] of Health and Human Service's declaration that [...] used). Performed By: #### C VDTBH #### [facility] [address] [place] [address] Dr. Belkys Fajardo DRUG SCREEN RAPID (URINE)on 01-23-2022 AMP Negative Normal NEGATIVE [facility] Comment on above: Performed By: #### A FPTET #### [facility] [address] [place] [address] Dr. Belkys Fajardo BAR Negative Normal NEGATIVE [facility] Comment on above: Performed By: #### A FPTET #### [facility] [address] [place] [address] Dr. Belkys Fajardo BUP Negative Normal NEGATIVE [facility] Comment on above: Performed By: #### A FPTET #### [facility] [address] [place] [address] Dr. Belkys Fajardo BZO Negative Normal NEGATIVE [facility] Comment on above: Performed By: #### A FPTET #### [facility] [address] [place] [address] Dr. Belkys Fajardo VALENCIA Negative Normal NEGATIVE [facility] Comment on above: Performed By: #### A FPTET #### [facility] [address] [place] [address] Dr. Belkys Fajardo CUT-OFFS SEE BELOW Normal [facility] Comment on above: Result Comment: AMP (Amphetamine): 500ng/mL, BAR (Barbituates): 200 ng/mL, BZO (Benzodiazepines): 150 ng/mL, BUP (Buprenorphine): 10 ng/mL, VALENCIA (Cocaine): 150 ng/mL, mAMP (Methamphetamine): 500 ng/mL, MTD (Methadone): 200 ng/mL, OPI (Opiates): 100 ng/mL, OXY (Oxycodone): 100 ng/mL, PCP (Phencyclidine): 25 ng/mL, PPX (Propoxyphene): 300 ng/mL, THC (Cannabinoids): 50 ng/mL, TCA (Trycyclic Antidepressants): 300 ng/mL Performed By: #### A FPTET #### [facility] [address] [address] [address] Belkys Fajardo DRUG CUT HEADER DRUG CLASS TEST SYSTEM CUT-OFF CONCENTRATIONS ARE FOLLOWS: Normal [facility] Comment on above: Performed By: #### A FPTET #### [facility] [address] [address] [address] Belkys Fajardo mAMP Negative Normal NEGATIVE [facility] Comment on above: Performed By: #### A FPTET #### [facility] [address] [address] [address] Belkys Fajardo MTD Negative Normal NEGATIVE [facility] Comment on above: Performed By: #### A FPTET #### [facility] [address] [address] [address] Belkys Fajardo OPI Negative Normal NEGATIVE [facility] Comment on above: Performed By: #### A FPTET #### [facility] [address] [place] [address] Dr. Belkys Fajardo OXY Negative Normal NEGATIVE [facility] Comment on above: Performed By: #### A FPTET #### [facility] [address] [address] [address] Belkys Fajardo PCP Negative Normal NEGATIVE [facility] Comment on above: Performed By: #### A FPTET #### [facility] [address] [place] [address] Dr. Belkys Fajardo PPX Negative Normal NEGATIVE [facility] Comment on above: Performed By: #### A FPTET #### [facility] [address] [address] [address] Belkys Fajardo TCA Negative Normal NEGATIVE [facility] Comment on above: Performed By: #### A FPTET #### [facility] [address] [address] [address] Belkys Fajardo THC Negative Normal NEGATIVE [facility] Comment on above: Performed By: #### A FPTET #### [facility] [address] [address] [address] Belkys Fajardo TYPE AND SCREENon 01-23-2022 TYPE AND SCREEN Negative Normal [facility] Comment on above: Performed By: #### U ACSIND, UMICRO #### [facility] [address] [address] [address] Belkys Fajardo UA (CLEAN/CATCH) CAN MAKER/MICRO I F IND.on 01-23-2022 Bilirubin Ql (U) Negative Normal NEGATIVE [facility] Comment on above: Performed By: #### U ACSIND, UMICRO #### [facility] [address] [address] [address] Belkys Fajardo Clarity (U) CLEAR Normal CLEAR [facility] Comment on above: Performed By: #### U ACSIND, UMICRO #### [facility] [address] [address] [address] Belkys Fajardo Color (U) LT. YELLOW Normal YELLOW [facility] Comment on above: Performed By: #### U ACSIND, UMICRO #### [facility] [address] [address] [address] Belkys Fajardo Glucose Ql (U) Negative Normal NEGATIVE [facility] Comment on above: Performed By: #### U ACSIND, UMICRO #### [facility] [address] [address] [address] Belkys Fajardo Hemoglobin Ql (U) TRACE-INTACT Abnormal NEGATIVE [facility] Comment on above: Performed By: #### U ACSIND, UMICRO #### [facility] [address] [address] [address] Belkys Fajardo Ketones Ql (U) Negative Normal NEGATIVE [facility] Comment on above: Performed By: #### U ACSIND, UMICRO #### [facility] [address] [address] [address] Belkys Fajardo LEUKOCYTES MODERATE Abnormal NEGATIVE [facility] Comment on above: Performed By: #### U ACSIND, UMICRO #### [facility] [address] [address] [address] Belkys Fajardo Nitrite Ql (U) Negative Normal NEGATIVE [facility] Comment on above: Performed By: #### U ACSIND, UMICRO #### [facility] [address] [place] [address] Dr. Belkys Fajardo pH (U) 6.5 [pH] Normal 5-9 [facility] Comment on above: Performed By: #### U ACSTAMELA UMICRO #### [facility] [address] [place] [address] Dr. Belkys Fajardo SPEC GRAVITY 1.015 Normal 1.005-<=1.025 [facility] Comment on above: Performed By: #### U ACSTAMELA UMICRO #### [facility] [address] [place] [address] Dr. Belkys Fajardo UA PROTEIN Negative Normal NEGATIVE/ TRACE [facility] Comment on above: Performed By: #### U ACSTAMELA UMICRO #### [facility] [address] [place] [address] Dr. Belkys Fajardo UR MICRO IND INDICATED Normal [facility] Comment on above: Performed By: #### U ACSTAMELA UMICRO #### [facility] [address] [place] [address] Dr. Belkys Fajardo Urobilinogen Qn (U) 0.2 {Jakob'U}/dL Normal 0.2 - 1. 0 [facility] Comment on above: Performed By: #### U ACSTAMELA UMICRO #### [facility] [address] [place] [address] Dr. Belkys Fajardo URINE MICROSCOPIC ONLYon BACTERIA SMALL Abnormal NONE SEEN [facility] Comment on above: Performed By: #### U ACSTAMELA UMICRO #### [facility] [address] [place] [address] Dr. Belkys Fajardo Bacteria identified Cx Nom (U) INDICATED Normal [facility] Comment on above: Performed By: #### U ACSTAMELA UMICRO #### [facility] [address] [place] [address] Dr. Belkys Fajardo CAST NONE SEEN Normal NONE SEEN [facility] Comment on above: Performed By: #### U ACSTAMELA UMICRO #### [facility] [address] [place] [address] Dr. Belkys Fajardo Crystals LM Nom (Urine sed) NONE SEEN Normal NONE SEEN [facility] Comment on above: Performed By: #### U ACSIND, UMICRO #### [facility] [address] [address] [address] Belkys Fajardo Epithelial cells LM Ql (Urine sed) FEW Abnormal NONE SEEN /RARE [facility] Comment on above: Performed By: #### U ACSIND, UMICRO #### [facility] [address] [address] [address] Belkys Fajardo MUCOUS NONE SEEN Normal NONE SEEN [facility] Comment on above: Performed By: #### U ACSIND, UMICRO #### [facility] [address] [address] [address] Belkys Fajardo RBC NONE SEEN Abnormal 0-2 [facility] Comment on above: Performed By: #### U ACSIND, UMICRO #### [facility] [address] [address] [address] Belkys Fajardo WBC 5-10 Abnormal NONE SEEN [facility] Comment on above: Performed By: #### U ACSIND, UMICRO #### [facility] [address] [address] [address] Belkys Fajardo US PREG GROWTHon 01-12-2022 [...] YOGI BLACK Date: 2022-01-12 21:15 Normal [facility] GROUP B STREP CULTUREon 12-26 S. agalactiae Ag Ql (Unsp spec) Culture Observations: NEGATIVE FOR GROUP B STREPTOCOCCUS. Normal [facility] Comment on above: Performed By: #### G BSCX #### [facility] [address] [place] [address] Dr. Belkys Fajardo GTT 3 HR PREGon 12-11-2021 Glucose [Mass/Vol] 91 mg/dL Normal 74-106 [facility] Comment on above: Performed By: #### G TT3P #### [facility] [address] [place] [address] Dr. Belkys Fajardo Glucose [Mass/Vol] 172 mg/dL Normal [facility] Comment on above: Performed By: #### G TT3P #### [facility] [address] [place] [address] Dr. Belkys Fajardo Glucose [Mass/Vol] 148 mg/dL Normal [facility] Comment on above: Performed By: #### G TT3P #### [facility] [address] [address] [address] Belkys Fajardo Glucose [Mass/Vol] 58 mg/dL Normal [facility] Comment on above: Performed By: #### G TT3P #### [facility] [address] [place] [address] Dr. Belkys Fajardo US PREG GROWTHon 12-08-2021 [...] with growth detailed above. Electronically authenticated by: YOGIHERRERA BLACK Date: 2021-12-08 16:52 Normal [facility] GLUCOSE - 1HRon 11-12-2021 Glucose [Mass/Vol] 143 mg/dL Critically high 74-106 [facility] Comment on above: Performed By: #### U ACSIND, UMICRO #### [facility] [address] [place] [address] Dr. Belkys Fajardo HEMOGRAM AND PLATELon 2021 Hematocrit (Bld) [Volume fraction] 31.7 % Critically low 36.0-48.0 [facility] Comment on above: Performed By: #### A FPTET #### [facility] [address] [place] [address] Dr. Belkys Fajardo Hemoglobin (Bld) [Mass/Vol] 10.4 g/dL Critically low 12.0-16.0 [facility] Comment on above: Performed By: #### A FPTET #### [facility] [address] [place] [address] Dr. Belkys Fajardo MCH (RBC) [Entitic mass] 28.8 pg Normal 26.7-34.0 [facility] Comment on above: Performed By: #### A FPTET #### [facility] [address] [address] [address] Belkys Fajardo MCHC (RBC) [Mass/Vol] 32.8 g/dL Normal 29.9-35.2 [facility] Comment on above: Performed By: #### A FPTET #### [facility] [address] [place] [address] Dr. Belkys Fajardo MCV (RBC) [Entitic vol] 87.8 fL Normal 81.0-99.0 [facility] Comment on above: Performed By: #### A FPTET #### [facility] [address] [place], [place] [id number] Dr. Belkys Fajardo PLT 261 103/ul Normal 150-450 [facility] Comment on above: Performed By: #### A FPTET #### [facility] [address], [place] [address] Dr. Belkys Fajardo RBC 3.61 106/ul Critically low 4.20-5.40 [facility] Comment on above: Performed By: #### A FPTET #### [facility] [address], [place] [address] Dr. Belkys Fajardo WBC 11.5 103/ul Critically high 4.0-11.0 [facility] Comment on above: Performed By: #### A FPTET #### [facility] [address] [address] [address] Belkys Fajardo US PREG PLACENTAon 2 [...] by: YOGI BLACK Date: 2021-11-10 21:07 Normal [facility] US PREG PLACENTAon 2 US PREG PLACENTA EXAMINATION: US PREG PLACENTA HISTORY: Low lying placenta COMPARISON: Ultrasound anatomy 09/16/2021 FINDINGS: PLACENTA: Posterior with lower margin 2.5 cm from os. CERVIX LENGTH: 4.4 cm, closed. HEART RATE: 157 bpm OTHER: None. IMPRESSION: 1. Low-lying posterior placenta; no appreciable change compared to prior study. Electronically authenticated by: YOGI BLACK Date: 2021-10-14 19:56 Normal [facility] US PREG ANATOMY SINGLEon US PREG [...] YOGI BLACK Date: 2021-09-16 16:54 Normal [facility] AFP TETRA PROFILE (MATERNAL) on 09-06-2021 PDF . Normal [facility] Comment on above: Performed By: #### A FPTET #### [facility] [address] [address] [address] Belkys Fajardo AFP MoM 0.86 Normal [facility] Comment on above: Performed By: #### A FPTET #### [facility] [address], [place] [address] Dr. Belkys Fajardo AFP Value 39.7 ng/mL Normal [facility] Comment on above: Performed By: #### A FPTET #### [facility] [id number] Belkys Fajardo Comment Comment Normal [facility] Comment on above: Result Comment: Geremias Greer, Ph.D., [facility] Director . References: Available Upon Request. . Multiples Of Median Cutoffs Abbreviation Definitions For AFP Elevations IDD- Insulin Dep Diabetes Granados 2.5 Black 2.8 OSBR- Open Spina Bifida IDD 2.0 Twins 4.5 Risk DSR Cutoff 1:270 DSR- Down Syndrome Risk T18 Cutoff 1:100 T18- Trisomy 18 . Down Syndrome and Trisomy 18 screening are considered Investigational . For further inquiries contact [facility] at [phone]. Performed By: #### A FPTET #### [facility] [address] [address] [address] Belkys Fajardo MONIE MoM 0.77 Normal [facility] Comment on above: Performed By: #### A FPTET #### [facility] [address] [place] [address] Dr. Belkys Fajardo MONIE Value 113.50 pg/mL Normal [facility] Comment on above: Performed By: #### A FPTET #### [facility] [address] [place] [address] Dr. Belkys Fajardo DSR (By Age) 1 [place] 765 Normal [facility] Comment on above: Performed By: #### A FPTET #### [facility] [address] [place] [address] Dr. Belkys Fajardo DSR (Second Trimester) 1 [place] [address] [facility] Comment on above: Performed By: #### A FPTET #### [facility] [address] [place] [address] Dr. Belkys Gilliland Age on Collection Date 18.7 WEEKS Normal [facility] Comment on above: Performed By: #### A FPTET #### [facility] [address] [place] [address] Dr. Belkys Pablo. Age Based On LMP [facility] Comment on above: Result Comment: 03/30 Performed By: #### A FPTET #### [facility] [address] [place] [address] Dr. Belkys Fajardo hCG MoM 0.78 Normal [facility] Comment on above: Performed By: #### A FPTET #### [facility] [address] [place], [place] [id number] [place] [address] m[IU]/mL Normal [facility] Comment on above: Performed By: #### A FPTET #### [facility] [address] [place] [address] Dr. Belkys Fajardo Insulin Dep Diabetes No Normal [facility] Comment on above: Performed By: #### A FPTET #### [facility] [address] [place] [address] Dr. Belkys Fajardo Interpretation Comment Normal [facility] Comment on above: Result Comment: Inte rpretation: [...] identifies 60% of Trisomy 18 pregnancies. The [employer] recommends amniocentesis be offered to women age 35 and older. Recalculations are not recommended when gestational dating by LMP and ultrasound are within 10 days. Performed By: #### A FPTET #### [facility] [address] [place] [address] Dr. Belkys Fajardo Maternal Age At GUNJAN 31.[address] [facility] Comment on above: Performed By: #### A FPTET #### [facility] [address] [place] [address] Dr. Belkys Fajardo Multiple Gestation No Normal [facility] Comment on above: Performed By: #### A FPTET #### [facility] [address] [place] [address] Dr. Belkys Fajardo [place] 1 [place] [address] Normal [facility] Comment on above: Performed By: #### A FPTET #### [facility] [address] [place] [address] Dr. Belkys Fajardo Race Normal [facility] Comment on above: Performed By: #### A FPTET #### [facility] [address] [address] [address] Belkys Fajardo Results Report Normal [facility] Comment on above: Performed By: #### A FPTET #### [facility] [address] [address] [address] Belkys Fajardo T18 (By Age) 1:2981 Normal [facility] Comment on above: Performed By: #### A FPTET #### [facility] [address] [address] [address] Belkys Fajardo T18 Risk Not increased [facility] Comment on above: Performed By: #### A FPTET #### [facility] [address] [address] [address] Belkys Fajardo Test Results: Negative Normal [facility] Comment on above: Performed By: #### A FPTET #### [facility] [address] [place] [address] Dr. Belkys Fajardo uE3 MoM 1.43 [facility] Comment on above: Performed By: #### A FPTET #### [facility] [address] [place] [address] Dr. Belkys Fajardo uE3 Value 2.26 ng/mL [facility] Comment on above: Performed By: #### A FPTET #### [facility] [address] [place] [address] Dr. Belkys Fajardo PAP ACOG PANEL 2: 21 to 29on 08-24-2021 . . Normal [facility] Comment on above: Result Comment: Perf ormed at: BA Performed By: #### [id number] #### [facility] [address] [place] [address] Dr. Belkys Fajardo Age Gdln ACOG Testing - [facility] Comment on above: Performed By: #### [id number] #### [facility] [address] [place] [address] Dr. Belkys Fajardo DIAGNOSIS: Comment Normal [facility] Comment on above: Result Comment: NEGA TIVE FOR INTRAEPITHELIAL LESION OR MALIGNANCY. Performed at: BA Performed By: #### [id number] #### [facility] [address] [place] [address] Dr. Belkys Fajardo Methodology: Comment Normal [facility] Comment on above: Result Comment: This liquid based ThinPrep(R) pap test was screened with the use of an image guided system. Performed at: WB Performed By: #### [id number] #### [facility] [address] [place] [address] Dr. Belkys Fajardo Note: Comment Normal [facility] Comment on above: Result Comment: The Pap smear is a screening test designed to aid in the detection of premalignant and malignant conditions of the uterine cervix. It is not a diagnostic procedure and should not be used as the sole means of detecting cervical cancer. Both false-positive and false-negative reports do occur. . Performed at: WB Performed By: #### [id number] #### [facility] [address] [place] [address] Dr. Belkys Fajardo Performed by: Comment Normal [facility] Comment on above: Result Comment: Vicky Avila, Biomedical Engineering Technician (ASCP) Performed at: BA Performed By: #### [id number] #### [facility] [address] [place] [address] Dr. Belkys Fajardo Reflex Criteria: Comment [facility] Comment on above: Result Comment: The HPV DNA reflex criteria were not met with this specimen result therefore, no HPV testing was performed. . Performed at: BA Performed By: #### [id number] #### [facility] [address] [place] [address] Dr. Belkys Fajardo Specimen adequacy: Comment Normal [facility] Comment on above: Result Comment: Sati sfactory for evaluation. No endocervical component is identified. Performed at: BA Performed By: #### [id number] #### [facility] [address] [place] [address] Dr. Belkys Fajardo CBC AUTO DIFFon 08-22-2021 BASO # 0.0 103/ul Normal 0.0-0.1 [facility] Comment on above: Performed By: #### C BC #### [facility] [address] [place] [address] Dr. Belkys Fajardo Basophils/100 WBC (Bld) 0.2 % Normal 0.2-2.0 [facility] Comment on above: Performed By: #### C BC #### [facility] [address] [place] [address] Dr. Belkys Fajardo EO # 0.2 103/ul Normal 0.0-0.7 [facility] Comment on above: Performed By: #### C BC #### [facility] [address] [place] [address] Dr. Belkys Fajardo Eosinophils/100 WBC (Bld) 1.9 % Normal 0.9-7.0 [facility] Comment on above: Performed By: #### C BC #### [facility] [address] [place] [address] Dr. Belkys Fajardo Erythrocyte distribution width (RBC) [Ratio] 13.4 % Normal 11.0-15.0 [facility] Comment on above: Performed By: #### C BC #### [facility] [address] [place] [address] Dr. Belkys Fajardo Hematocrit (Bld) [Volume fraction] 32.7 % Critically low 36.0-48.0 [facility] Comment on above: Performed By: #### C BC #### [facility] [address] [place] [address] Dr. Belkys Fajardo Hemoglobin (Bld) [Mass/Vol] 11.0 g/dL Critically low 12.0-16.0 [facility] Comment on above: Performed By: #### C BC #### [facility] [address] [place] [address] Dr. Belkys Fajardo IG # 0.05 10e3/ul Critically high 0.00-0.03 [facility] Comment on above: Performed By: #### C BC #### [facility] [address] [place] [address] Dr. Belkys Fajardo IG % 0.5 % Normal 0.0-0.5 [facility] Comment on above: Performed By: #### C BC #### [facility] [address] [place] [address] Dr. Belkys Fajardo LYMPH # 2.3 103/ul Normal 1.2-3.8 [facility] Comment on above: Performed By: #### C BC #### [facility] [address] [place] [address] Dr. Belkys Fajardo Lymphocytes/100 WBC (Bld) 22.4 % Normal 20.5-60.0 [facility] Comment on above: Performed By: #### C BC #### [facility] [address] [place] [address] Dr. Belkys Fajardo MANUAL DIFF REQ NO Normal [facility] Comment on above: Performed By: #### C BC #### [facility] [address] [place] [address] Dr. Belkys Fajardo MCH (RBC) [Entitic mass] 29.3 pg Normal 26.7-34.0 [facility] Comment on above: Performed By: #### C BC #### [facility] [address] [place] [address] Dr. Belkys Fajardo MCHC (RBC) [Mass/Vol] 33.6 g/dL Normal 29.9-35.2 [facility] Comment on above: Performed By: #### C BC #### [facility] [address] [place] [address] Dr. Belkys Fajardo MCV (RBC) [Entitic vol] 87.2 fL Normal 81.0-99.0 [facility] Comment on above: Performed By: #### C BC #### [facility] [address] [place] [address] Dr. Belkys Fajardo MONO # 0.6 103/ul Normal 0.3-0.8 [facility] Comment on above: Performed By: #### C BC #### [facility] [address] [place] [address] Dr. Belkys Fajardo Monocytes/100 WBC (Bld) 5.5 % Normal 1.7-12.0 [facility] Comment on above: Performed By: #### C BC #### [facility] [address] [address] [address] Belkys Fajardo NEUT # 7.1 103/ul Critically high 1.4-6.5 [facility] Comment on above: Performed By: #### C BC #### [facility] [address] [place] [address] Dr. Belkys Fajardo Neutrophils/100 WBC (Bld) 69.5 % Normal 43.0-75.0 [facility] Comment on above: Performed By: #### C BC #### [facility] [address] [place] [address] Dr. Belkys Fajardo Platelet mean volume (Bld) [Entitic vol] 10.3 fL Normal 9.5-13.5 [facility] Comment on above: Performed By: #### C BC #### [facility] [address] [place] [address] Dr. Belkys Fajardo PLT 258 103/ul Normal 150-450 [facility] Comment on above: Performed By: #### C BC #### [facility] [address] [place] [address] Dr. Belkys Fajardo RBC 3.75 106/ul Critically low 4.20-5.40 [facility] Comment on above: Performed By: #### C BC #### [facility] [address] [place] [address] Dr. Belkys Fajardo WBC 10.2 103/ul Normal 4.0-11.0 [facility] Comment on above: Performed By: #### C BC #### [facility] [address] [place] [address] Dr. Belkys Fajardo CTA CHEST WO W [...] ROSARIO HERNANDEZ Date: 2021-08-22 08:31 Normal [facility] Covid-19 PCR (CVDTBH)on 07-27 SARS-CoV-2 (COVID-19) RNA DEVIN+probe Ql (Unsp spec) Not detected Normal NOT DETECTED [facility] Comment on above: Result Comment: When diagnostic [...] for this test is supported by the [employer] of Health and Human Service's declaration that [...] used). Performed By: #### C VDTBH #### [facility] [address] [place] [address] Dr. Belkys Fajardo PROF 14(COMP METB)on 022 Albumin [Mass/Vol] 3.0 g/dL Critically low 3.4-5.0 [facility] Comment on above: Performed By: #### A FPTET #### [facility] [address], [place] [address] Dr. Belkys Fajardo Albumin/Globulin [Mass ratio] 0.8 {ratio} Normal [facility] Comment on above: Performed By: #### A FPTET #### [facility] [address] [place] [address] Dr. Belkys Fajardo ALP [Catalytic activity/Vol] 52 U/L Normal 46-116 [facility] Comment on above: Performed By: #### A FPTET #### [facility] [address] [address] [address] Belkys Fajardo ALT [Catalytic activity/Vol] 32 U/L Normal 14-59 [facility] Comment on above: Performed By: #### A FPTET #### [facility] [address] [place] [address] Dr. Belkys Fajardo Anion gap [Moles/Vol] 12.8 mmol/L Normal [facility] Comment on above: Performed By: #### A FPTET #### [facility] [address] [place] [address] Dr. Belkys Fajardo AST [Catalytic activity/Vol] 17 U/L Normal 15-37 [facility] Comment on above: Performed By: #### A FPTET #### [facility] [address] [place] [address] Dr. Belkys Fajardo Bilirubin [Mass/Vol] 0.3 mg/dL Normal 0.2-1.0 [facility] Comment on above: Performed By: #### A FPTET #### [facility] [address] [place] [address] Dr. Belkys Fajardo Calcium [Mass/Vol] 8.5 mg/dL Normal 8.5-10.1 [facility] Comment on above: Performed By: #### A FPTET #### [facility] [address] [place] [address] Dr. Belkys Fajardo Chloride [Moles/Vol] 103 mmol/L Normal 98-107 [facility] Comment on above: Performed By: #### A FPTET #### [facility] [address] [place] [address] Dr. Belkys Fajardo CO2 [Moles/Vol] 24.7 mmol/L Normal 21.0-32.0 [facility] Comment on above: Performed By: #### A FPTET #### [facility] [address] [place] [address] Dr. Belkys Fajardo Creatinine [Mass/Vol] 0.46 mg/dL Critically low 0.55-1.02 [facility] Comment on above: Performed By: #### A FPTET #### [facility] [address] [address] [address] Belkys Fajardo EGFR-AF BELGIAN >60 Normal >=60 [facility] Comment on above: Performed By: #### A FPTET #### [facility] [address] [place] [address] Dr. Belkys Fajardo EGFR-NON AF BELGIAN >60 Normal >=60 [facility] Comment on above: Performed By: #### A FPTET #### [facility] [address] [place] [address] Dr. Belkys Fajardo Globulin (S) [Mass/Vol] 3.7 g/dL Normal [facility] Comment on above: Performed By: #### A FPTET #### [facility] [address] [place] [address] Dr. Belkys Fajardo Glucose [Mass/Vol] 84 mg/dL Normal 74-106 [facility] Comment on above: Performed By: #### A FPTET #### [facility] [address] [place] [address] Dr. Belkys Fajardo Potassium [Moles/Vol] 3.5 mmol/L Normal 3.5-5.1 [facility] Comment on above: Performed By: #### A FPTET #### [facility] [address] [place] [address] Dr. Belkys Fajardo Protein [Mass/Vol] 6.7 g/dL Normal 6.4-8.2 [facility] Comment on above: Performed By: #### A FPTET #### [facility] [address] [place] [address] Dr. Belkys Fajardo Sodium [Moles/Vol] 137 mmol/L Normal 136-145 [facility] Comment on above: Performed By: #### A FPTET #### [facility] [address] [place] [address] Dr. Belkys Fajardo Urea nitrogen [Mass/Vol] 7.0 mg/dL Normal 7.0-18.0 [facility] Comment on above: Performed By: #### A FPTET #### [facility] [address] [place] [address] Dr. Belkys Fajardo Urea nitrogen/Creatinine [Mass ratio] 15.2 mg/mg Normal [facility] Comment on above: Performed By: #### A FPTET #### [facility] [address] [place] [address] Dr. Belkys Fajardo TROPONIN, HIGH SENSITIVITYon 08-22-2021 HSTROP <4.0 Normal 4.0-51.3 [facility] Comment on above: Result Comment: CUT- OFF POINTS HAVE BEEN ESTABLISHED BASED ON THE FOURTH UNIVERSAL DEFINITIONS OF MYOCARDIAL INFARCTION. THE UPPER REFERENCE LIMIT (URL) OF TROPONIN, DEFINED THE 99TH PERCENTILE OF cTnI DISTRIBUTION IN A REFERENCE POPULATION, HAS BEEN CONFIRMED THE DECISION THRESHOLD FOR RI DIAGNOSIS. Performed By: #### A FPTET #### [facility] [address] [place] [address] Dr. Belkys Fajardo CHLAMYDIA/GONOCOCCUS DEVIN (SW AB/URINE/PAPon 08-21-2021 Chlamydia trachomatis, DEVIN Negative Normal Negative [facility] Comment on above: Performed By: #### C T/NGNA #### [facility] [address] [place] [address] Dr. Belkys Fajardo Neisseria gonorrhoeae, DEVIN Negative Normal Negative [facility] Comment on above: Performed By: #### C T/NGNA #### [facility] [address] [place] [address] Dr. Belkys Fajardo VAGINITIS/VAGINOSIS DNA PROB Gab 08-20-2021 Lani species Negative Normal Negative [facility] Comment on above: Performed By: #### A FPTET #### [facility] [address] [place] [address] Dr. Belkys Fajardo Gardnerella vaginalis Negative Normal Negative [facility] Comment on above: Performed By: #### A FPTET #### [facility] [address] [address] [address] Belkys Fajardo Trichomonas vaginalis Negative Normal Negative [facility] Comment on above: Performed By: #### A FPTET #### [facility] [address] [address] [address] Belkys Fajardo Vital Signs Date Time Vital Sign Value Performing Clinician Facility 07-28-2022 10:15-0400 Body height 170.18 cm Nick Engiver Other [facility] Other 07-28-2022 10:15-0400 Body mass index (BMI) [Ratio] 27.81 kg/m2 Nick Ball Other [facility] Other 07-28-2022 10:15-0400 Body weight 80.56 kg Nick Ball Other [facility] Other 07-28-2022 10:15-0400 Diastolic blood pressure 75 mm[Hg] Nick Ball Other [facility] Other 07-28-2022 10:15-0400 Systolic blood pressure 112 mm[Hg] Nick Ball Other [facility] Other 06-04-2022 17:00-0500 Body height 170.18 cm Cristal Guidry Other [facility] Other 06-04-2022 17:00-0500 Body mass index (BMI) [Ratio] 28.19 kg/m2 Cristal Guidry Other [facility] Other 06-04-2022 17:00-0500 Body temperature 97.4 [degF] Cristal Guidry Other [facility] Other 06-04-2022 17:00-0500 Body weight 81.65 kg Cristal Guidry Other [facility] Other 06-04-2022 17:00-0500 Respiratory rate 18 /min Cristal Guidry Other [facility] Other 06-04-2022 17:00-0500 SaO2% (BldA) [Mass fraction] 98 % Cristal Guidry Other [facility] Other 09-06-2021 02:05-0400 Body weight 77.[address] CHEYENNE MEADE . [facility] Comment on above: Performed By: #### AFPTET #### [facility] [address] [place] [address] Dr. Belkys Fajardo Encounters Encounter Date Encounter Type Care Provider Facility Start: 10-18-2023 End: 10-18-2023 ambulatory VALERIE DOROTEO Not Available Start: 10-05-2023 End: 10-05-2023 ambulatory CHEYENNE WOLF Not Available Start: 09-21-2023 End: 09-21-2023 ambulatory CHEYENNE WOLF Not Available Start: 09-20-2023 End: 09-21-2023 Emergency department patient visit [facility] Start: 09-07-2023 End: 09-07-2023 ambulatory CHEYENNE WOLF Not Available Start: 08-24-2023 End: 08-24-2023 ambulatory CHEYENNE WOLF Not Available Start: 08-10-2023 End: 08-10-2023 ambulatory CHEYENNE WOLF Not Available Start: 07-28-2023 End: 07-30-2023 ambulatory [facility] Start: 07-26-2023 End: 07-26-2023 Emergency department patient visit [facility] Start: 07-25-2023 End: 07-27-2023 ambulatory [facility] Start: 07-13-2023 End: 07-13-2023 ambulatory CHEYENNE WOLF Not Available Start: 06-15-2023 End: 06-15-2023 ambulatory CHEYENNE WOLF Not Available Start: 05-16-2023 End: 05-16-2023 ambulatory CHEYENNE WOLF Not Available Start: 04-08-2023 End: 04-08-2023 ambulatory CHEYENNE WOLF Not Available Start: 07-28-2022 End: 07-28-2022 ambulatory Nick Leonardo Other [facility] Other Start: 07-28-2022 Office outpatient vi sit 15 minutes Nick Leonardo [facility] Start: 07-28-2022 Telephone encounter Nick Leonardo FP G [facility] Start: 06-04-2022 End: 06-04-2022 ambulatory Cristal Guidry Other [facility] Other Start: 06-04-2022 Office outpatient ne w [...] End: 04-10-2021 Subsequent hospital visit by physician [facility] EKG Comment on above: Palpitations; Post-COVID [...] 04/15/2021 Office Visit Cardiology Yogi Marquez MD [address] [place] [address] [facility] Start: 11-26-2020 Influenza vaccination Flu vaccine (# 1) [facility] Start: 10-08-2020 DTaP/Tdap/Td vaccine (7 - Td or Tdap) DTaP/Tdap/Td vaccine (7 - Td or Tdap) [facility] Start: 2013 Screening for malign ant neoplasm of cervix Pap smear [facility] Start: 10-30-2007 HIV screening HIV screen [facility] Start: 2004 Depression Screen Depression Screen [facility] Start: 1997 COVID-19 Vaccine (1) COVID-19 Vaccin e (1) [facility] Start: 1993 Varicella vaccine (1 of 2 - 2-dose childhood series) Varicella vaccine (1 of 2 - 2-dose childhood series) [facility] Start: 1992 Hepatitis C screening Hepatitis C [facility] Payers Date Payer Category Payer Unknown [id number] 1992 Unknown [id number] [id number] 1992 Unknown [id number] 1992 Unknown [id number] [id number] 1992 Unknown [id number] 2.16.84 0.1.633398.3.579.2.593 1992 Unknown [id number] 2.16.84 0.1.012398.3.579.2.593 1992 Unknown [id number] 2.16.84 0.1.977963.3.579.2.593 1992 Unknown [id number] 2.16.84 0.1.483284.3.579.2.593 1992 Unknown [id number] 2.16.84 0.1.920791.3.579.2.593 1992 Unknown [id number] 2.16.84 0.1.470383.3.579.2.593 1992 Unknown [id number] 2.16.84 0.1.248235.3.579.2.593 1992 Unknown [id number] 2.16.84 0.1.773369.3.579.2.593 1992 Unknown [id number] 2.16.84 0.1.057769.3.579.2.593 1992 Unknown [id number] 2.16.84 0.1.276266.3.579.2.593 1992 Unknown [id number] 2.16.8 40.1.700188.3.579.2.173 1992 Unknown [id number] 2.16.8 40.1.789293.3.579.2.173 1992 Unknown [id number] 2.16.8 40.1.710219.3.579.2.173 1992 Unknown [id number] 2.16.8 40.1.263988.3.579.2.173 1992 Unknown [id number] 2.16.84 0.1.499628.3.579.2.1259 1992 Unknown [id number] 2.16.84 0.1.162518.3.579.2.1258 1992 Unknown [id number] 2.16.84 0.1.863288.3.579.2.9 1992 Unknown [id number] 2.16.84 0.1.430225.3.579.2.1258 1992 Unknown [id number] 2.16.84 0.1.487767.3.579.2.9 1992 Unknown [id number] 2.16.84 0.1.923466.3.579.2.1258 1992 Unknown [id number] 2.16.84 0.1.747209.3.579.2.9 1992 Unknown [id number] 2.16.84 0.1.436432.3.579.2.9 1992 Unknown [id number] 2.16.84 0.1.026068.3.579.2.9 1992 Unknown [id number] 2.16.84 0.1.218189.3.579.2.1259 1959 Unknown [id number] Social History Date Type Detail Facility Start: 08-29-2014 Tobacco smoking status [facility] Never smoked tobacco [facility] Phone: Start: 08-29-2014 Tobacco use and exposure Smokeless tobacco non-user [facility] Phone: Start: 03-09-2021 Alcohol intake Current drinke r of alcohol (finding) [facility] Phone: Start: 03-09-2021 Alcohol intake [facility] Phone: Start: 08-29-2014 History SDOH Alcohol Comment occ. [facility] Phone: Start: 1990 Sex Assigned At Not on file M Interview Phone: Sex Assigned At Sex Assigned At Bir th [facility] Other Evaluation note 07-28-2022 Note Date & [...] Monitor for now may not need treatment [facility] Other Evaluation note 06-04-2022 Note Date & [...] other viral communicable diseases (ICD-10 - Z20.828) [facility] Other Clinical Note 01-23-2022 Note Date & Type Note Facility 01-23-2022 Note OPERATIVE NOTE OPERATION DATE: 02/18/2022 PROCEDURE: Repair of fourth degree perineal laceration. PREOPERATIVE DIAGNOSIS: Fourth degree perineal laceration. POSTOPERATIVE DIAGNOSIS: Fourth degree perineal laceration. ANESTHESIA: Epidural SURGEON: Cheyenne Meade D.O. OUTREACH WORKER: BOBO Cole URINE OUTPUT: Yellow and clear. [...] taken to recovery in stable condition. [facility] Clinical Note 01-23-2022 Note Date & Type Note Facility 01-23-2022 Note OP Note OPERATION DATE: 01/23/2022 PROCEDURE: Repair of fourth degree perineal laceration. PREOPERATIVE DIAGNOSIS: Fourth degree perineal laceration. POSTOPERATIVE DIAGNOSIS: Fourth degree perineal laceration. ANESTHESIA: Epidural SURGEON: Cheyenne Meade D.O. OUTREACH WORKER: BOBO Cole URINE OUTPUT: Yellow and clear. [...] taken to recovery in stable condition. [facility] Clinical Note 01-23-2022 Note Date & Type Note Facility 01-23-2022 Note OPERATIVE NOTE OPERATION DATE: 02/10/2022 PROCEDURE: Repair of fourth degree laceration. PREOPERATIVE DIAGNOSIS: Fourth degree laceration. POSTOPERATIVE DIAGNOSIS: Fourth degree laceration. ANESTHESIA: General. SURGEON: Cheyenne Meade D.O. OUTREACH WORKER: BOBO URINE OUTPUT: Yellow and clear. BLOOD [...] sheath and this was done in a [id number]-at-[id number] fashion. This was performed using 3-0 Vicryl. [...] The patient tolerated this procedure well. [facility] Clinical Note 08-22-2021 Note Date & Type [...] by: DERIC VO Date: 2021-08-22 07:30 [facility] Evaluation note Note Date & Type Note Facility Evaluation note Diagnosis Palpitations Post-COVID chronic palpitations Shortness of breath Lightheaded Dizziness and giddiness Dizziness Dizziness and giddiness documented in this encounter [facility] Phone: Evaluation note Note Date & Type Note Facility Evaluation note No Information [facility] Other History general Narrative - Reported Note Date & Type Note Facility History general Narrative - Reported Type Medical History POTS Medical History sinus tachycardia Surgical History 4th degree vaginal tear after g iving 2021 [facility] Other History general Narrative - Reported Note Date & Type Note Facility History general Narrative - Reported Type Medical History POTS Medical History sinus tachycardia Medical History Anxiety, generalized Surgical History 4th degree vaginal t ear after giving 2021 Surgical History MASTOPEXY OF BOTH BR EASTS WITH INSERTION OF SALINE IMPLANTS Hospitalization History SEE SURGICAL HX [facility] Other Reason for Referral Specialty Diagnoses / Procedures Referred By Willy smith Referred To Contact Cardiology Diagnoses Palpitations Post-COVID chronic palpitations Shortness of breath Lightheaded Dizziness Procedures Holter Monitor 24 Hour Yogi Marquez MD [address] [place] [id number] Referral ID Status Reason Start Date Expiration Date Visits Re quested Visits Authorized [id number] Open 03/09/2021 03/09/2022 1 1 Advance Directives No Advanced Directives Records FoundDocuments on File Type Date Recorded 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 Expl anation ACP-Advance Directive ACP-Power of Process Improvement Analyst Summary Purpose Family History No Family History Records FoundNo Family History Records FoundNo Family History Records Found Additional Source Comments Reason for Visit (unrecogniz ed section and content) Specialty Diagnoses / Procedures Referred By Willy smith Referred To Contact Cardiology Diagnoses Palpitations Post-COVID chronic palpitations Shortness of breath Lightheaded Dizziness Procedures Holter Monitor 24 Hour Yogi Marquez MD [address] [place] [id number] Referral ID Status Reason Start Date Expiration Date Visits Re quested Visits Authorized [id number] Open 03/09/2021 03/09/2022 1 1 Care Teams (unrecognized sec tion and content) 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 FOR RECORDS PERTAINING TO PATIENTS WHO ARE [...] BE BASED ON THE PRIMARY CLINICAL RECORDS. [facility] [employer] [facility] provides no warranty or guarantee of the accuracy or completeness of information in this document.
[2023-10-21 17:20] VITALS: BP 116/68; PULSE 93
== END 2023-10-21 17:55 | disposition home or self-care (01) ==
LOC: FBCO 07:38 → FBC 17:16
PROVIDERS: PCP Family Medicine; Visit Provider Obstetrics & Gynecology
DX: O26.893 Other specified pregnancy related conditions, third trimester (principal)
CPT/HCPCS: 59025

== ENCOUNTER 2023-10-26 07:02 | Outpatient (OUT) | payer OTHER, SELFPAY ==
--- OUTSIDE RECORDS SUMMARY | 2023-10-26 07:05 | XMS_ITS ---
Patient Summarization (C-CDA 2.1 CCD) Created on: October 26, 2023 TASIA VENTURA, Jess AUDREY N~TASIA : 1990 Sex: Female Author Organization Sample organization Care Team Providers Care Chart Computer Name Role Phone Jorden Nick Primary Care Provider Cristal Guidry Unavailable WOLF ., DR QUINN Attending Unavailable WOLF ., DR QUINN Admitting Unavailable WOLF ., DR QUINN Consulting Unavailable BALL, DR TUCKER Primary Care Unavailable WOLF ., DR QUINN Consulting Unavailable WOLF ., DR QUINN Attending Unavailable BALL, DR TUCKER Primary Care Unavailable WOLF ., DR QUINN Admitting Unavailable WOLF ., DR QUINN Admitting Unavailable WOLF ., DR QIUNN Attending Unavailable WOLF ., DR QUINN Consulting [...] Unavailable JORDEN, DR TUCKER Primary Care Unavailable RAOUL ., DR DURHAM Admitting Unavailabl e KARJOHNNIE ., DR DURHAM Consulting Unavailabl e KARASIK [...] Unavailable ZIEBER, DR YOGI Witt Consulting Unavailable Jorden, Nick Unavailable YOGI MARQUEZ Attending Unavailable YOGI MARQUEZ Referring Unavailable DE LEON, LIS A Primary Care Unavailable DE LEON, LIS A Primary Care Unavailable WILLIAMSUSANNA Attending Unavailable DE LEON, LIS A Primary Care Unavailable DIANNE, YOGI Attending Unavailable YOGI MARQUEZ Referring Unavailable DE LEON, LIS A Primary Care Unavailable WOLF, CHEYENNE Attending Unavailable WOLF, CHEYENNE Attending Unavailable WOLF, CHEYENNE Attending Unavailable OWLF, CHEYENNE Attending Unavailable WOLF, CHEYENNE Attending Unavailable WOLF, CHEYENNE Attending Unavailable WOLF, CHEYENNE Attending Unavailable WOLF, CHEYENNE Attending Unavailable DOROTEO, VALERIE Attending Unavailable Encounters Encounter Date Encounter Type Care Provider Facility Start: 10-18-2023 End: 10-18-2023 ambulatory VALERIE SADLER Not Available Start: 10-05-2023 End: 10-05-2023 ambulatory CHEYENNE WOLF Not Available Start: 09-21-2023 End: 09-21-2023 ambulatory [place] WOLF Not Available Start: 09-20-2023 End: 09-21-2023 [facility]: 09-07-2023 End: 09-07-2023 ambulatory CHE[place]NE WOLF Not Available Start: 08-24-2023 End: 08-24-2023 ambulatory CHE[place]NE WOLF Not Available Start: 08-10-2023 End: 08-10-2023 ambulatory [place] WOLF Not Available Start: 07-28-2023 End: 07-30-2023 ambulatory YOGI [facility] Start: 07-26-2023 End: 07-26-2023 [facility]: 07-25-2023 End: 07-27-2023 ambulatory [facility] Start: 07-13-2023 End: 07-13-2023 ambulatory CHEY[place]NE WOLF Not Available Start: 06-15-2023 End: 06-15-2023 ambulatory [place]NE WOLF Not Available Start: 05-16-2023 End: 05-16-2023 ambulatory CHE[place]NE WOLF Not Available Start: 04-08-2023 End: 04-08-2023 ambulatory [place] WOLF Not Available Start: 07-28-2022 End: 07-28-2022 ambulatory Nick Leonardo Other [email or web address] Other Start: 07-28-2022 Office outpatient vi sit 15 minutes Nick Leonardo [facility] Start: 07-28-2022 Telephone encounter Nick Leonardo FP [facility] Start: 06-04-2022 End: 06-04-2022 ambulatory Cristal Guidry Other [email or web address] Other Start: 06-04-2022 Office outpatient ne w [...] End: 04-10-2021 Subsequent hospital visit by physician [facility] EKG Comment on above: Palpitations; Post-COVID chronic [...] Not-Taking Payers Date Payer Category Payer Unknown [id number] [id number]. [id number] 1990 Unknown [id number] 2.16.84 0.1.551750.3.579.2.593 1990 Unknown [id number] 2.16.84 0.1.302047.3.579.2.593 1992 Unknown [id number] 2.16.84 0.1.800170.3.579.2.593 1992 Unknown [id number] 2.16.84 0.1.685076.3.579.2.593 1992 Unknown [id number] 2.16.84 0.1.093706.3.579.2.593 1992 Unknown [id number] 2.16.84 0.1.462297.3.579.2.593 1992 Unknown [id number] 2.16.84 0.1.459323.3.579.2.593 1992 Unknown [id number] 2.16.84 0.1.960599.3.579.2.593 1992 Unknown [id number] 2.16.84 0.1.524130.3.579.2.593 1992 Unknown [id number] 2.16.84 0.1.835178.3.579.2.593 1992 Unknown [id number] 2.16.84 0.1.793304.3.579.2.593 1992 Unknown [id number] 2.16.84 0.1.406696.3.579.2.593 1992 Unknown [id number] 2.16.84 0.1.113776.3.579.2.593 1992 Unknown [id number] 2.16.8 40.1.331234.3.579.2.173 1992 Unknown [id number] 2.16.8 40.1.766160.3.579.2.173 1992 Unknown [id number] 2.16.8 40.1.511174.3.579.2.173 1992 Unknown [id number] 2.16.8 40.1.067717.3.579.2.173 1992 Unknown [id number] 2.16.84 0.1.319319.3.579.2.1259 1992 Unknown [id number] 2.16.84 0.1.420209.3.579.2.9 1992 Unknown [id number] 2.16.84 0.1.463905.3.579.2.9 1992 Unknown [id number] 2.16.84 0.1.235793.3.579.2.9 1992 Unknown [id number] 2.16.84 0.1.334106.3.579.2.1259 1992 Unknown [id number] 2.16.84 0.1.098603.3.579.2.9 1992 Unknown [id number] 2.16.84 0.1.037577.3.579.2.9 1992 Unknown [id number] 2.16.84 0.1.396722.3.579.2.9 1992 Unknown [id number] 2.16.84 0.1.116820.3.579.2.1259 1992 Unknown [id number] 2.16.84 0.1.899154.3.579.2.1259 1959 Unknown [id number] Plan of Treatment Date Care Activity Detail Author Start: 04-15-2021 End: 04-15-2021 Patient encounter procedure 04/15/2021 Office Visit Cardiology Yogi Marquez MD [address] [place] [id number] [facility] Start: 11-26-2020 Influenza vaccination Flu vaccine (# 1) [facility] Start: 10-08-2020 DTaP/Tdap/Td vaccine (7 - Td or Tdap) DTaP/Tdap/Td vaccine (7 - Td or Tdap) [facility] Start: 2013 Screening for malign ant neoplasm of cervix Pap smear [facility] Start: 10-30-2007 HIV screening HIV screen [facility] Start: 2004 Depression Screen Depression Screen [facility] Start: 1997 COVID-19 Vaccine (1) COVID-19 Vaccin e (1) [facility] Start: 1993 Varicella vaccine (1 of 2 - 2-dose childhood series) Varicella vaccine (1 of 2 - 2-dose childhood series) [facility] Start: 1992 Hepatitis C screening Hepatitis C sc reen [facility] Problems Active Problems Problem Classification Problem Date [...] Cayla Thornton MD 09/21/23 Final result Normal [facility] CBC with Diffon 09-20-2023 Abs. Basophil 0.05 k/uL Normal 0.00-0.20 [facility] Comment on above: Performed By: #### C DP, PT, MG #### [address] [place] [address] Treatment Specialist: Rosario Linares MD Abs.Imm.Granulocyte 0.20 k/uL Normal 0.00-0.30 [facility] Comment on above: Performed By: #### C DP, PT, MG #### [address] [place] [id number] Treatment Specialist: Rosario Linares MD Abs.Neutrophil (Seg) 9.90 k/uL High 1.50-8.10 [facility] Comment on above: Performed By: #### C DP, PT, MG #### [address] [place] [id number] Treatment Specialist: Rosario Linares MD Basophils/100 WBC (Bld) 0 % Normal 0-2 [facility] Comment on above: Performed By: #### C DP, PT, MG #### [address] [place], [facility] Treatment Specialist: Rosario Linares MD Eosinophils (Bld) [#/Vol] 0.15 10*3/uL Normal 0.00-0.44 [facility] Comment on above: Performed By: #### C DP, PT, MG #### [address] [place], [facility] Treatment Specialist: Rosario Linares MD Eosinophils/100 WBC (Bld) 1 % Normal 1-4 [facility] Comment on above: Performed By: #### C DP, PT, MG #### [address] [place], [facility] Treatment Specialist: Rosario Linares MD Erythrocyte distribution width (RBC) [Ratio] 12.8 % Normal 11.8-14.4 [facility] Comment on above: Performed By: #### C DP, PT, MG #### [address] [place], [facility] Treatment Specialist: Rosario Linares MD Hematocrit (Bld) [Volume fraction] 32.7 % Low 36.3-47.1 [facility] Comment on above: Performed By: #### C DP, PT, MG #### [address] [place], [facility] Treatment Specialist: Rosario Linares MD Hemoglobin (Bld) [Mass/Vol] 11.3 g/dL Low 11.9-15.1 [facility] Comment on above: Performed By: #### C DP, PT, MG #### [address] [place] [id number] Treatment Specialist: Rosario Linares MD Immature granulocytes/100 WBC (Bld) 2 % High 0 [facility] Comment on above: Performed By: #### C DP, PT, MG #### [address] [place], [place] [address] Treatment Specialist: Rosario Linares MD Lymphocytes (Bld) [#/Vol] 2.23 10*3/uL Normal 1.10-3.70 [facility] Comment on above: Performed By: #### C DP, PT, MG #### [facility] [address] [place] [address] Dr. [place], [place] [address] Treatment Specialist: Rosario Linares MD Lymphocytes/100 WBC (Bld) 17 % Low 24-43 [facility] Comment on above: Performed By: #### C DP, PT, MG #### [address] [place] [address] Treatment Specialist: Rosario Linares MD MCH (RBC) [Entitic mass] 29.7 pg Normal 25.2-33.5 [facility] Comment on above: Performed By: #### C DP, PT, MG #### [address] [place], [place] [address] Treatment Specialist: Rosario Linares MD MCHC (RBC) [Mass/Vol] 34.6 g/dL Normal 28.4-34.8 [facility] Comment on above: Performed By: #### C DP, PT, MG #### [address] [place] [id number] Treatment Specialist: Rosario Linares MD MCV (RBC) [Entitic vol] 85.8 fL Normal 82.6-102.9 [facility] Comment on above: Performed By: #### C DP, PT, MG #### [address] [place], [facility] Treatment Specialist: Rosario Linares MD Monocytes (Bld) [#/Vol] 0.72 10*3/uL Normal 0.10-1.20 [facility] Comment on above: Performed By: #### C DP, PT, MG #### [address] [place], [facility] Treatment Specialist: Rosario Linares MD Monocytes/100 WBC (Bld) 5 % Normal 3-12 [facility] Comment on above: Performed By: #### C DP, PT, MG #### [facility] [address] [place], [place] [id number] Treatment Specialist: Rosario Linares MD Neutrophil (Seg) 75 % High 36-65 [facility] Comment on above: Performed By: #### C DP, PT, MG #### [facility] [address] [place], [place] [id number] Treatment Specialist: Rosario Linares MD NRBC Automated 0.0 per 100 WBC Normal 0.0 [facility] Comment on above: Performed By: #### C DP, PT, MG #### [address] [place], [facility] Treatment Specialist: Rosario Linares MD Platelet mean volume (Bld) [Entitic vol] 10.2 fL Normal 8.1-13.5 [facility] Comment on above: Performed By: #### C DP, PT, MG #### [address] [place], [place] [id number] Treatment Specialist: Rosario Linares MD Platelets (Bld) [#/Vol] 293 10*3/uL Normal 138-453 [facility] Comment on above: Performed By: #### C DP, PT, MG #### [facility] [address] [place] [address] Dr. [place], [place] [id number] Treatment Specialist: Rosario Linares MD RBC (Bld) [#/Vol] 3.81 10*6/uL Low 3.95-5.11 [facility] Comment on above: Performed By: #### C DP, PT, MG #### [address] [place], [place] [id number] Treatment Specialist: Rosario Linares MD WBC (Bld) [#/Vol] 13.3 10*3/uL High 3.5-11.3 [facility] Comment on above: Performed By: #### C DP, PT, MG #### [facility] [address] [place], [place] [id number] Treatment Specialist: Rosario Linares MD Comp Metabolic Profon 2023 Albumin [Mass/Vol] 3.5 g/dL Normal 3.5-5.2 [facility] Comment on above: Performed By: #### C P #### [facility] [address] [place], [place] [id number] Treatment Specialist: Rosario Linares MD Albumin/Glob Ratio 1.1 Normal 1.0-2.5 [facility] Comment on above: Performed By: #### C P #### [facility] [address] [place], [place] [id number] Treatment Specialist: Rosario Linares MD Alkaline Phos 103 U/L Normal 35-104 [facility] Comment on above: Performed By: #### C P #### [facility] [address] [place] [address] Treatment Specialist: Rosario Linares MD ALT [Catalytic activity/Vol] 16 U/L Normal 5-33 [facility] Comment on above: Performed By: #### C P #### [facility] [address] [place], [place] 7[address]83 Treatment Specialist: Rosario Linares MD Anion gap [Moles/Vol] 10 mmol/L Normal 9-17 [facility] Comment on above: Performed By: #### C P #### [facility] [address] [place], [place] [phone] Treatment Specialist: Rosario Linares MD AST [Catalytic activity/Vol] 16 U/L Normal <32 [facility] Comment on above: Performed By: #### C P #### [facility] [address] [place] [address] Treatment Specialist: Rosario Linares MD Bilirubin [Mass/Vol] 0.2 mg/dL Low 0.3-1.2 [facility] Comment on above: Performed By: #### C P #### [facility] [address] [place], [place] [phone] Treatment Specialist: Rosario Linares MD BUN/CRE Ratio 18 Normal 9-20 [facility] Comment on above: Performed By: #### C P #### [facility] [address] [place], [place] [phone] Treatment Specialist: Rosario Linares MD Calcium [Mass/Vol] 8.4 mg/dL Low 8.6-10.4 [facility] Comment on above: Performed By: #### C P #### [facility] [address] [place], [place] [phone] Treatment Specialist: Rosario Linares MD Chloride [Moles/Vol] 101 mmol/L Normal 98-107 [facility] Comment on above: Performed By: #### C P #### [facility] [address] [place], [place] [phone] Treatment Specialist: Rosario Linares MD CO2 [Moles/Vol] 22 mmol/L Normal 20-31 [facility] Comment on above: Performed By: #### C P #### [facility] [address] [place], [place] [phone] Treatment Specialist: Rosario Linares MD Creatinine [Mass/Vol] 0.4 mg/dL Low 0.5-0.9 [facility] Comment on above: Performed By: #### C P #### [facility] [address] [place], [place] [phone] Treatment Specialist: Rosario Linares MD GFR/1.73 sq M.predicted among non-blacks MDRD (S/P/Bld) [Vol rate/Area] mL/min/{1.73_m2} Normal >60 [facility] Comment on above: Result Comment: These [...] secretion. Performed By: #### C P #### [facility] [address] [place] [address] Treatment Specialist: Rosario Linares MD Glucose [Mass/Vol] 89 mg/dL Normal 70-99 [facility] Comment on above: Performed By: #### C P #### [address] [place], [place] [phone] Treatment Specialist: Rosario Linares MD Potassium [Moles/Vol] 3.7 mmol/L Normal 3.7-5.3 [facility] Comment on above: Performed By: #### C P #### [address] [place], [place] [phone] Treatment Specialist: Rosario Linares MD Protein [Mass/Vol] 6.7 g/dL Normal 6.4-8.3 [facility] Comment on above: Performed By: #### C P #### [facility] [address] [place] [address] Dr. [place], [place] 1403683 Treatment Specialist: Rosario Linares MD Sodium [Moles/Vol] 133 mmol/L Low 135-144 [facility] Comment on above: Performed By: #### C P #### [facility] [address] [place] [address] Treatment Specialist: Rosario Linares MD Urea nitrogen [Mass/Vol] 7 mg/dL Normal 6-20 [facility] Comment on above: Performed By: #### C P #### [facility] [address] [place] [address] [place] [address] Treatment Specialist: Rosario Linares MD D-Dimer Teston 09-20-2023 D-Dimer Test 1.32 ug/mL FEU High 0.00-0.59 [facility] Comment on above: Result Comment: When [...] DVT. Performed By: #### D PATI #### [address] [place] [address] Treatment Specialist: Rosario Linares MD Magnesiumon 09-20-2023 Magnesium [Mass/Vol] 1.8 mg/dL Normal 1.6-2.6 [facility] Comment on above: Performed By: #### C DP, PT, MG #### [facility] [address] [place] [address] [place] [address] Treatment Specialist: Rosario Linares MD PTon 09-20-2023 INR Coag (PPP) [Relative time] 1.0 {INR} Normal [facility] Comment on above: Result Comment: Therapeutic Range: Moderate Anticoagulant Intensity: INR = 2.0-3.0 High Anticoagulant Intensity: INR = 2.5-3.5 Performed By: #### C DP, PT, MG #### [address] [place] [address] Treatment Specialist: Rosario Linares MD PT Coag (PPP) [Time] 12.8 s Normal 11.7-14.1 [facility] Comment on above: Performed By: #### C DP, PT, MG #### [address] [place], [place] [phone] Treatment Specialist: Rosario Linares MD Thyroid Stim. Horm.on 2023 Thyroid Stim. Horm. 2.11 uIU/mL Normal 0.30-5.00 [facility] Comment on above: Performed By: #### T SH #### [address] [place], [place] [phone] Treatment Specialist: Rosario Linares MD Troponinon 09-20-2023 Troponin, High Sens <6 Normal 0-14 [facility] Comment on above: Result Comment: High Sensitivity Troponin values cannot be compared with other Troponin methodologies. Performed By: #### T ROPI #### [address] [place] [address] Treatment Specialist: Rosario Linares MD Basic Metabolic Profon 07-25 Anion gap [Moles/Vol] 13 mmol/L Normal 9- [facility] Comment on above: Performed By: #### C DP, BMP #### [facility] [address] [place] [address] [place] [address] Treatment Specialist: Rosario Linares MD BUN/CRE Ratio 18 Normal - [facility] Comment on above: Performed By: #### C DP, BMP #### [address] [place] [address] Treatment Specialist: Rosario Linares MD Calcium [Mass/Vol] 8.7 mg/dL Normal 8.6-10.4 [facility] Comment on above: Performed By: #### C DP, BMP #### [facility] [address] [place], [place] [phone] Treatment Specialist: Rosario Linares MD Chloride [Moles/Vol] 100 mmol/L Normal 98-107 [facility] Comment on above: Performed By: #### C DP, BMP #### [facility] [address] [place] [address] Treatment Specialist: Rosario Linares MD CO2 [Moles/Vol] 21 mmol/L Normal 20-31 [facility] Comment on above: Performed By: #### C DP, BMP #### [facility] [address] [place], [place] [phone] Treatment Specialist: Rosario Linares MD Creatinine [Mass/Vol] 0.4 mg/dL Low 0.5-0.9 [facility] Comment on above: Performed By: #### C DP, BMP #### [facility] [address] [place] [address] Treatment Specialist: Rosario Linares MD GFR/1.73 sq M.predicted among non-blacks MDRD (S/P/Bld) [Vol rate/Area] mL/min/{1.73_m2} Normal >60 [facility] Comment on above: Result Comment: These [...] Performed By: #### C DP, BMP #### [facility] [address] [place] [address] Treatment Specialist: Rosario Linares MD Glucose [Mass/Vol] 115 mg/dL High 70-99 [facility] Comment on above: Performed By: #### C DP, BMP #### [facility] [address] [place], [place] [phone] Treatment Specialist: Rosario Linares MD Potassium [Moles/Vol] 3.4 mmol/L Low 3.7-5.3 [facility] Comment on above: Performed By: #### C DP, BMP #### [facility] [address] [place], [place] [phone] Treatment Specialist: Rosario Linares MD Sodium [Moles/Vol] 134 mmol/L Low 135-144 [facility] Comment on above: Performed By: #### C DP, BMP #### [address] [place], [place] [phone] Treatment Specialist: Rosario Linares MD Urea nitrogen [Mass/Vol] 7 mg/dL Normal 6-20 [facility] Comment on above: Performed By: #### C DP, BMP #### [address] [place], [place] 2955583 Treatment Specialist: Rosario Linares MD CBC with Diffon 07-26-2023 Abs. Basophil 0.04 k/uL Normal 0.00-0.20 [facility] Comment on above: Performed By: #### C DP, BMP #### [address] [place], [facility] Treatment Specialist: Rosario Linares MD Abs.Imm.Granulocyte 0.07 k/uL Normal 0.00-0.30 [facility] Comment on above: Performed By: #### C DP, BMP #### [address] [place], [place] [phone] Treatment Specialist: Rosario Linares MD Abs.Neutrophil (Seg) 8.51 k/uL High 1.50-8.10 [facility] Comment on above: Performed By: #### C DP, BMP #### [address] [place], [place] [phone] Treatment Specialist: Rosario Linares MD Basophils/100 WBC (Bld) 0 % Normal 0-2 [facility] Comment on above: Performed By: #### C DP, BMP #### [address] [place], [place] [phone] Treatment Specialist: Rosario Linares MD Eosinophils (Bld) [#/Vol] 0.11 10*3/uL Normal 0.00-0.44 [facility] Comment on above: Performed By: #### C DP, BMP #### [address] [place] [address] Treatment Specialist: Rosario Linares MD Eosinophils/100 WBC (Bld) 1 % Normal 1-4 [facility] Comment on above: Performed By: #### C DP, BMP #### [address] [place], [facility] Treatment Specialist: Rosario Linares MD Erythrocyte distribution width (RBC) [Ratio] 13.0 % Normal 11.8-14.4 [facility] Comment on above: Performed By: #### C DP, BMP #### [address] [place], [facility] Treatment Specialist: Rosario Linares MD Hematocrit (Bld) [Volume fraction] 36.2 % Low 36.3-47.1 [facility] Comment on above: Performed By: #### C DP, BMP #### [address] [place], [facility] Treatment Specialist: Rosario Linares MD Hemoglobin (Bld) [Mass/Vol] 12.2 g/dL Normal 11.9-15.1 [facility] Comment on above: Performed By: #### C DP, BMP #### [address] [place] [address] Treatment Specialist: Rosario Linares MD Immature granulocytes/100 WBC (Bld) 1 % High 0 [facility] Comment on above: Performed By: #### C DP, BMP #### [facility] [address] [place], [place] [phone] Treatment Specialist: Rosario Linares MD Lymphocytes (Bld) [#/Vol] 2.63 10*3/uL Normal 1.10-3.70 [facility] Comment on above: Performed By: #### C DP, BMP #### [facility] [address] [place] [address] Treatment Specialist: Rosario Linares MD Lymphocytes/100 WBC (Bld) 22 % Low 24-43 [facility] Comment on above: Performed By: #### C DP, BMP #### [address] [place], [place] [phone] Treatment Specialist: Rosario Linares MD MCH (RBC) [Entitic mass] 29.8 pg Normal 25.2-33.5 [facility] Comment on above: Performed By: #### C DP, BMP #### [address] [place], [place] 7103983 Treatment Specialist: Rosario Linares MD MCHC (RBC) [Mass/Vol] 33.7 g/dL Normal 28.4-34.8 [facility] Comment on above: Performed By: #### C DP, BMP #### [address] [place], [place] [phone] Treatment Specialist: Rosario Linares MD MCV (RBC) [Entitic vol] 88.5 fL Normal 82.6-102.9 [facility] Comment on above: Performed By: #### C DP, BMP #### [address] [place] [address] Treatment Specialist: Rosario Linares MD Monocytes (Bld) [#/Vol] 0.44 10*3/uL Normal 0.10-1.20 [facility] Comment on above: Performed By: #### C DP, BMP #### [facility] [address] [place], [place] 8952683 Treatment Specialist: Rosario Linares MD Monocytes/100 WBC (Bld) 4 % Normal 3-12 [facility] Comment on above: Performed By: #### C DP, BMP #### [facility] [address] [place], [place] [phone] Treatment Specialist: Rosario Linares MD Neutrophil (Seg) 72 % High 36-65 [facility] Comment on above: Performed By: #### C DP, BMP #### [facility] [address] [place], [place] 4563783 Treatment Specialist: Rosario Linares MD NRBC Automated 0.0 per 100 WBC Normal 0.0 [facility] Comment on above: Performed By: #### C DP, BMP #### [facility] [address] [place], [place] 6666083 Treatment Specialist: Rosario Linares MD Platelet mean volume (Bld) [Entitic vol] 10.3 fL Normal 8.1-13.5 [facility] Comment on above: Performed By: #### C DP, BMP #### [address] [place], [place] 2346983 Treatment Specialist: Rosario Linares MD Platelets (Bld) [#/Vol] 289 10*3/uL Normal 138-453 [facility] Comment on above: Performed By: #### C DP, BMP #### [facility] [address] [place], [place] [phone] Treatment Specialist: Rosario Linares MD RBC (Bld) [#/Vol] 4.09 10*6/uL Normal 3.95-5.11 [facility] Comment on above: Performed By: #### C DP, BMP #### [facility] [address] [place], [place] [id number] Treatment Specialist: Rosario Linares MD WBC (Bld) [#/Vol] 11.8 10*3/uL High 3.5-11.3 [facility] Comment on above: Performed By: #### C DP, BMP #### [facility] [address] [place], [place] [id number] Treatment Specialist: Rosario Linares MD Troponinon 07-26-2023 Troponin, High Sens 6 ng/L Normal 0-14 [facility] Comment on above: Result Comment: High Sensitivity Troponin values cannot be compared with other Troponin methodologies. Performed By: #### T ROPI #### [facility] [address] [place], [place] [id number] Treatment Specialist: Rosario Linares MD UA w/Reflex Cultureon 2023 Bilirubin, SemiQt,Ur Negative Normal NEG [facility] Comment on above: Performed By: #### C DP, BMP #### [facility] [address] [place], [place] [id number] Treatment Specialist: Rosario Linares MD Blood, Urine Negative Normal NEG [facility] Comment on above: Performed By: #### C DP, BMP #### [facility] [address] [place] [address] Dr. [place], [place] [id number] Treatment Specialist: Rosario Linares MD Clarity (U) Clear Normal CLEAR [facility] Comment on above: Performed By: #### C DP, BMP #### [facility] [address] [place], [place] [id number] Treatment Specialist: Rosario Linares MD Color (U) Yellow Normal YEL [facility] Comment on above: Performed By: #### C DP, BMP #### [facility] [address] [place], [place] [id number] Treatment Specialist: Rosario Linares MD Glucose Ql (U) Negative Normal NEG [facility] Comment on above: Performed By: #### C DP, BMP #### [facility] [address] [place] [address] Dr. [place], [facility] Treatment Specialist: Rosario Linares MD Ketones Ql (U) Negative Normal NEG [facility] Comment on above: Performed By: #### C DP, BMP #### [facility] [address] [place] [address] Dr. [place], [facility] Treatment Specialist: Rosario Linares MD Leukocyte esterase Test strip Ql (U) SMALL Abnormal NEG [facility] Comment on above: Performed By: #### C DP, BMP #### [address] [place] [address] Treatment Specialist: Rosario Linares MD Nitrite,Ur Negative Normal NEG [facility] Comment on above: Performed By: #### C DP, BMP #### [facility] [address] [place] [address] [place] [address] Treatment Specialist: Rosario Linares MD PH,Ur 8.0 Normal 5.0-9.0 [facility] Comment on above: Performed By: #### C DP, BMP #### [address] [place] [address] Treatment Specialist: Rosario Linares MD Protein Ql (U) Negative Normal NEG [facility] Comment on above: Performed By: #### C DP, BMP #### [facility] [address] [place] [address] Dr. [place], [place] [address] Treatment Specialist: Rosario Linares MD Spec. [place],Ur 1.015 Normal 1.010-1.020 [facility] Comment on above: Performed By: #### C DP, BMP #### [address] [place] [id number] Treatment Specialist: Rosario Linares MD Urobilinogen,Ur Normal Normal 0.0-1.0 [facility] Comment on above: Performed By: #### C DP, BMP #### [facility] [address] [place] [address] Treatment Specialist: Rosario Linares MD Urinalysis,Microon 4 Bacteria TRACE Abnormal NONE [facility] Comment on above: Performed By: #### C DP, BMP #### [facility] [address] [place], [place] [id number] Treatment Specialist: Rosario Linares MD Epithelial cells LM Ql (Urine sed) 5 TO 10 Normal 0-25 [facility] Comment on above: Performed By: #### C DP, BMP #### [facility] [address] [place], [place] [id number] Treatment Specialist: Rosario Linares MD Urine RBC's None Normal 0-2 [facility] Comment on above: Performed By: #### C DP, BMP #### [facility] [address] [place] [address] Treatment Specialist: Rosario Linares MD Urine WBC's 2 TO 5 Normal 0-5 [facility] Comment on above: Performed By: #### C DP, BMP #### [facility] [address] [place] [address] Treatment Specialist: Rosario Linares MD COVID/FLU/RSV RT-PCRon 06-04 SARS-CoV-2 (COVID-19) RNA DEVIN+probe Ql (Unsp spec) Negative [facility] Other COVID/FLU/RSV RT-PCR Negative [facility] Other Quick Strepon 06-04-2022 S. pyogenes Org specific cx Ql (Throat) Negative [facility] Other Quick Strep [facility] Other CBC AUTO DIFFon 01-24-2022 BASO # 0.1 103/ul Normal 0.0-0.1 [facility] Comment on above: Performed By: #### A FPTET #### [facility] [address] [place] [address] Dr. Belkys Fajardo Basophils/100 WBC (Bld) 0.3 % Normal 0.2-2.0 [facility] Comment on above: Performed By: #### A FPTET #### [facility] [address] [place] [address] Dr. Belkys Fajardo EO # 0.1 103/ul Normal 0.0-0.7 [facility] Comment on above: Performed By: #### A FPTET #### [facility] [address] [place] [address] Dr. Belkys Fajardo Eosinophils/100 WBC (Bld) 0.9 % Normal 0.9-7.0 [facility] Comment on above: Performed By: #### A FPTET #### [facility] [address] [place] [address] Dr. Belkys Fajardo Erythrocyte distribution width (RBC) [Ratio] 14.0 % Normal 11.0-15.0 [facility] Comment on above: Performed By: #### A FPTET #### [facility] [address] [place] [address] Dr. Belkys Fajardo Hematocrit (Bld) [Volume fraction] 24.8 % Critically low 36.0-48.0 [facility] Comment on above: Performed By: #### A FPTET #### [facility] [address] [place] [address] Dr. Belkys Fajardo Hemoglobin (Bld) [Mass/Vol] 8.2 g/dL Critically low 12.0-16.0 [facility] Comment on above: Performed By: #### A FPTET #### [facility] [address] [place] [address] Dr. Belkys Fajardo IG # 0.23 10e3/ul Critically high 0.00-0.03 [facility] Comment on above: Performed By: #### A FPTET #### [facility] [address] [place] [address] Dr. Belkys Fajardo IG % 1.5 % Critically high 0.0-0.5 [facility] Comment on above: Performed By: #### A FPTET #### [facility] [address] [address] [address] Belkys Fajardo LYMPH # 2.4 103/ul Normal 1.2-3.8 [facility] Comment on above: Performed By: #### A FPTET #### [facility] [address] [place] [address] [address] Belkys Fajardo Lymphocytes/100 WBC (Bld) 15.5 % Critically low 20.5-60.0 [facility] Comment on above: Performed By: #### A FPTET #### [facility] [address] [place] [address] Dr. Belkys Fajardo MANUAL DIFF REQ NO Normal [facility] Comment on above: Performed By: #### A FPTET #### [facility] [address] [place] [address] Dr. Belkys Fajardo MCH (RBC) [Entitic mass] 28.5 pg Normal 26.7-34.0 [facility] Comment on above: Performed By: #### A FPTET #### [facility] [address] [place] [address] Dr. Belkys Fajardo MCHC (RBC) [Mass/Vol] 33.1 g/dL Normal 29.9-35.2 [facility] Comment on above: Performed By: #### A FPTET #### [facility] [address] [place] [address] Dr. Belkys Fajardo MCV (RBC) [Entitic vol] 86.1 fL Normal 81.0-99.0 [facility] Comment on above: Performed By: #### A FPTET #### [facility] [address] [place] [address] Dr. Belkys Fajardo MONO # 0.8 103/ul Normal 0.3-0.8 [facility] Comment on above: Performed By: #### A FPTET #### [facility] [address] [place] [address] Dr. Belkys Fajardo Monocytes/100 WBC (Bld) 5.4 % Normal 1.7-12.0 [facility] Comment on above: Performed By: #### A FPTET #### [facility] [address] [place] [address] Dr. Belkys Fajardo NEUT # 11.6 103/ul Critically high 1.4-6.5 [facility] Comment on above: Performed By: #### A FPTET #### [facility] [address] [place] [address] Dr. Belkys Fajardo Neutrophils/100 WBC (Bld) 76.4 % Critically high 43.0-75.0 [facility] Comment on above: Performed By: #### A FPTET #### [facility] [address] [place] [address] Dr. Belkys Fajardo Platelet mean volume (Bld) [Entitic vol] 10.2 fL Normal 9.5-13.5 [facility] Comment on above: Performed By: #### A FPTET #### [facility] [address] [place] [address] Dr. Belkys Fajardo PLT 235 103/ul Normal 150-450 [facility] Comment on above: Performed By: #### A FPTET #### [facility] [address] [place] [address] Dr. Belkys Fajardo RBC 2.88 106/ul Critically low 4.20-5.40 [facility] Comment on above: Performed By: #### A FPTET #### [facility] [address] [place] [address] Dr. Belkys Fajardo WBC 15.2 103/ul Critically high 4.0-11.0 [facility] Comment on above: Performed By: #### A FPTET #### [facility] [address] [place] [address] Dr. Belkys Fajardo CBC AUTO DIFFon 01-23-2022 BASO # 0.1 103/ul Normal 0.0-0.1 [facility] Comment on above: Performed By: #### A FPTET #### [facility] [address] [place] [address] Dr. Belkys Fajardo Basophils/100 WBC (Bld) 0.4 % Normal 0.2-2.0 [facility] Comment on above: Performed By: #### A FPTET #### [facility] [address] [place] [address] Dr. Belkys Fajardo EO # 0.1 103/ul Normal 0.0-0.7 [facility] Comment on above: Performed By: #### A FPTET #### [facility] [address] [place] [address] Dr. Belkys Fajardo Eosinophils/100 WBC (Bld) 0.5 % Critically low 0.9-7.0 [facility] Comment on above: Performed By: #### A FPTET #### [facility] [address] [place] [address] Dr. Belkys Fajardo Erythrocyte distribution width (RBC) [Ratio] 13.8 % Normal 11.0-15.0 [facility] Comment on above: Performed By: #### A FPTET #### [facility] [address] [place] [address] Dr. Belkys Fajardo Hematocrit (Bld) [Volume fraction] 32.5 % Critically low 36.0-48.0 [facility] Comment on above: Performed By: #### A FPTET #### [facility] [address] [place] [address] Dr. Belkys Fajardo Hemoglobin (Bld) [Mass/Vol] 11.0 g/dL Critically low 12.0-16.0 [facility] Comment on above: Performed By: #### A FPTET #### [facility] [address] [place] [address] Dr. Belkys Fajardo IG # 0.31 10e3/ul Critically high 0.00-0.03 [facility] Comment on above: Performed By: #### A FPTET #### [facility] [address] [place] [address] Dr. Belkys Fajardo IG % 1.6 % Critically high 0.0-0.5 [facility] Comment on above: Performed By: #### A FPTET #### [facility] [address] [place] [address] [address] Belkys Fajardo LYMPH # 2.0 103/ul Normal 1.2-3.8 [facility] Comment on above: Performed By: #### A FPTET #### [facility] [address] [place] [address] Dr. Belkys Fajardo Lymphocytes/100 WBC (Bld) 10.2 % Critically low 20.5-60.0 [facility] Comment on above: Performed By: #### A FPTET #### [facility] [address] [place] [address] Dr. Belkys Fajardo MANUAL DIFF REQ NO Normal [facility] Comment on above: Performed By: #### A FPTET #### [facility] [address] [place] [address] Dr. Belkys Fajardo MCH (RBC) [Entitic mass] 28.4 pg Normal 26.7-34.0 [facility] Comment on above: Performed By: #### A FPTET #### [facility] [address] [place] [address] Dr. Belkys Fajardo MCHC (RBC) [Mass/Vol] 33.8 g/dL Normal 29.9-35.2 [facility] Comment on above: Performed By: #### A FPTET #### [facility] [address] [place] [address] Dr. Belkys Fajardo MCV (RBC) [Entitic vol] 83.8 fL Normal 81.0-99.0 [facility] Comment on above: Performed By: #### A FPTET #### [facility] [address] [place] [address] Dr. Belkys Fajardo MONO # 0.9 103/ul Critically high 0.3-0.8 [facility] Comment on above: Performed By: #### A FPTET #### [facility] [address] [place] [address] Dr. Belkys Fajardo Monocytes/100 WBC (Bld) 4.8 % Normal 1.7-12.0 [facility] Comment on above: Performed By: #### A FPTET #### [facility] [address] [address] [address] Belkys Fajardo NEUT # 16.0 103/ul Critically high 1.4-6.5 [facility] Comment on above: Performed By: #### A FPTET #### [facility] [address] [address] [address] Belkys Fajardo Neutrophils/100 WBC (Bld) 82.5 % Critically high 43.0-75.0 [facility] Comment on above: Performed By: #### A FPTET #### [facility] [address] [address] [address] Belkys Fajardo Platelet mean volume (Bld) [Entitic vol] 10.1 fL Normal 9.5-13.5 [facility] Comment on above: Performed By: #### A FPTET #### [facility] [address] [place] [address] Dr. Belkys Fajardo PLT 301 103/ul Normal 150-450 [facility] Comment on above: Performed By: #### A FPTET #### [facility] [address] [place] [address] Dr. Belkys Fajardo RBC 3.88 106/ul Critically low 4.20-5.40 [facility] Comment on above: Performed By: #### A FPTET #### [facility] [address] [place] [address] Dr. Belkys Fajardo WBC 19.3 103/ul Critically high 4.0-11.0 [facility] Comment on above: Performed By: #### A FPTET #### [facility] [address] [place] [address] Dr. Belkys Fajardo CULTURE URINEon 01-23-2022 CULTURE URINE Culture Observations : LIGHT GROWTH OF MIXED GENITAL HEYDI. NO POTENTIAL PATHOGENS SEEN. Normal [facility] Comment on above: Performed By: #### U ACSIND, UMICRO #### [facility] [address] [place] [address] Dr. Belkys Fajardo Covid-19 PCR (CVDTB)on 12-27 SARS-CoV-2 (COVID-19) RNA DEVIN+probe Ql (Unsp spec) Not detected Normal NOT DETECTED [facility] Comment on above: Result Comment: When [...] for this test is supported by the Shoulder Sawyer of Health and Human Service's declaration that [...] used). Performed By: #### C VDTBH #### [facility] [address] [place] [address] Dr. Belkys Fajardo DRUG SCREEN RAPID (URINE)on 01-23-2022 AMP Negative Normal NEGATIVE [facility] Comment on above: Performed By: #### A FPTET #### [facility] [address] [place] [address] Dr. Belkys Fajardo BAR Negative Normal NEGATIVE [facility] Comment on above: Performed By: #### A FPTET #### [facility] [address] [place] [address] Dr. Belkys Fajardo BUP Negative Normal NEGATIVE [facility] Comment on above: Performed By: #### A FPTET #### [facility] [address] [place] [address] Dr. Belkys Fajardo BZO Negative Normal NEGATIVE [facility] Comment on above: Performed By: #### A FPTET #### [facility] [address] [place] [address] Dr. Belkys Fajardo VALENCIA Negative Normal NEGATIVE [facility] Comment on above: Performed By: #### A FPTET #### [facility] [address] [place] [address] Dr. Belkys Fajardo CUT-OFFS SEE BELOW Normal [facility] Comment on above: Result Comment: [...] ng/mL Performed By: #### A FPTET #### [facility] [address] [place] [address] Dr. Belkys Fajardo DRUG CUT HEADER DRUG CLASS TEST SYSTEM CUT-OFF CONCENTRATIONS ARE FOLLOWS: Normal [facility] Comment on above: Performed By: #### A FPTET #### [facility] [address] [place] [address] Dr. Belkys Fajardo mAMP Negative Normal NEGATIVE [facility] Comment on above: Performed By: #### A FPTET #### [facility] [address] [place] [address] Dr. Belkys Fajardo MTD Negative Normal NEGATIVE [facility] Comment on above: Performed By: #### A FPTET #### [facility] [address] [place] [address] Dr. Belkys Fajardo OPI Negative Normal NEGATIVE [facility] Comment on above: Performed By: #### A FPTET #### [facility] [address] [place] [address] Dr. Belkys Fajardo OXY Negative Normal NEGATIVE [facility] Comment on above: Performed By: #### A FPTET #### [facility] [address] [place] [address] Dr. Belkys Fajardo PCP Negative Normal NEGATIVE [facility] Comment on above: Performed By: #### A FPTET #### [facility] [address] [place] [address] Dr. Belkys Fajardo PPX Negative Normal NEGATIVE [facility] Comment on above: Performed By: #### A FPTET #### [facility] [address] [place] [address] Dr. Belkys Fajardo TCA Negative Normal NEGATIVE [facility] Comment on above: Performed By: #### A FPTET #### [facility] [address] [place] [address] Dr. Belkys Fajardo THC Negative Normal NEGATIVE [facility] Comment on above: Performed By: #### A FPTET #### [facility] [address] [place] [address] Dr. Belkys Fajardo TYPE AND SCREENon 01-23-2022 TYPE AND SCREEN Negative Normal [facility] Comment on above: Performed By: #### U ACSIND, UMICRO #### [facility] [address] [place] [address] Dr. Belkys Fajardo UA (CLEAN/CATCH) DIRECTOR MULTIMEDIA/MICRO I F IND.on 01-23-2022 Bilirubin Ql (U) Negative Normal NEGATIVE [facility] Comment on above: Performed By: #### U ACSTAMELA UMICRO #### [facility] [address] [place] [address] Dr. Belkys Fajardo Clarity (U) CLEAR Normal CLEAR [facility] Comment on above: Performed By: #### U ACSIND UMICRO #### [facility] [address] [place] [address] Dr. Belkys Fajardo Color (U) LT. YELLOW Normal YELLOW [facility] Comment on above: Performed By: #### U ACSIND, UMICRO #### [facility] [address] [place] [address] Dr. Belkys Fajardo Glucose Ql (U) Negative Normal NEGATIVE [facility] Comment on above: Performed By: #### U ACSIND, UMICRO #### [facility] [address] [place] [address] Dr. Belkys Fajardo Hemoglobin Ql (U) TRACE-INTACT Abnormal NEGATIVE [facility] Comment on above: Performed By: #### U ACSIND, UMICRO #### [facility] [address] [address] [address] Belkys Fajardo Ketones Ql (U) Negative Normal NEGATIVE [facility] Comment on above: Performed By: #### U ACSIND, UMICRO #### [facility] [address] [address] [address] Belkys Fajardo LEUKOCYTES MODERATE Abnormal NEGATIVE [facility] Comment on above: Performed By: #### U ACSIND, UMICRO #### [facility] [address] [address] [address] Belkys Fajardo Nitrite Ql (U) Negative Normal NEGATIVE [facility] Comment on above: Performed By: #### U ACSIND, UMICRO #### [facility] [address] [address] [address] Belkys Fajardo pH (U) 6.5 [pH] Normal 5-9 [facility] Comment on above: Performed By: #### U ACSTAMELA, ICRO #### [facility] [address] [place] [address] Dr. Belkys Fajardo SPEC GRAVITY 1.015 Normal 1.005-<=1.025 [facility] Comment on above: Performed By: #### U ACSTAMELA, UMICRO #### [facility] [address] [place] [address] Dr. Belkys Fajardo UA PROTEIN Negative Normal NEGATIVE/ TRACE [facility] Comment on above: Performed By: #### U ACSTAMELA, UMICRO #### [facility] [address] [address] [address] Belkys Fajardo UR MICRO IND INDICATED Normal [facility] Comment on above: Performed By: #### U ACSTAMELA, UMICRO #### [facility] [address] [address] [address] Belkys Fajardo Urobilinogen Qn (U) 0.2 {Jakob'U}/dL Normal 0.2 - 1. 0 [facility] Comment on above: Performed By: #### U ACSIND, UMICRO #### [facility] [address] [address] [address] Belkys Fajardo URINE MICROSCOPIC ONLYon BACTERIA SMALL Abnormal NONE SEEN [facility] Comment on above: Performed By: #### U ACSTAMELA, UMICRO #### [facility] [address] [address] [address] Belkys Fajardo Bacteria identified Cx Nom (U) INDICATED Normal [facility] Comment on above: Performed By: #### U ACSTAMELA, UMICRO #### [facility] [address] [address] [address] Belkys Fajardo CAST NONE SEEN Normal NONE SEEN [facility] [facility] Comment on above: Performed By: #### U ACSTAMELA, UMICRO #### [facility] [address] [address] [address] Belkys Fajardo Crystals LM Nom (Urine sed) NONE SEEN Normal NONE SEEN [facility] Comment on above: Performed By: #### U ACSTAMELA UMICRO #### [facility] [address] [address] [address] Belkys Fajardo Epithelial cells LM Ql (Urine sed) FEW Abnormal NONE SEEN /RARE [facility] Comment on above: Performed By: #### U ACSTAMELA UMICRO #### [facility] [address] [address] [address] Belkys Fajardo MUCOUS NONE SEEN Normal NONE SEEN [facility] Comment on above: Performed By: #### U ACSTAMELA UMICRO #### [facility] [address] [address] [address] Belkys Fajardo RBC NONE SEEN Abnormal 0-2 [facility] Comment on above: Performed By: #### U ACSTAMELA UMICRO #### [facility] [address] [address] [address] Belkys Fajardo WBC 5-10 Abnormal NONE SEEN [facility] Comment on above: Performed By: #### U ACSTAMELA, UMICRO #### [facility] [address] [place] [address] Dr. Belkys Fajardo US PREG GROWTHon 01-12-2022 [...] YOGI BLACK Date: 2022-01-12 21:15 Normal [facility] GROUP B STREP CULTUREon 12-26 S. agalactiae Ag Ql (Unsp spec) Culture Observations: NEGATIVE FOR GROUP B STREPTOCOCCUS. Normal [facility] Comment on above: Performed By: #### G BSCX #### [facility] [address] [place] [address] Dr. Belkys Fajardo GTT 3 HR PREGon 12-11-2021 Glucose [Mass/Vol] 91 mg/dL Normal 74-106 [facility] Comment on above: Performed By: #### G TT3P #### [facility] [address] [address] [address] Belkys Fajardo Glucose [Mass/Vol] 172 mg/dL Normal [facility] Comment on above: Performed By: #### G TT3P #### [facility] [address] [address] [address] Belkys Fajardo Glucose [Mass/Vol] 148 mg/dL Normal [facility] Comment on above: Performed By: #### G TT3P #### [facility] [address] [address] [address] Belkys Fajardo Glucose [Mass/Vol] 58 mg/dL Normal [facility] Comment on above: Performed By: #### G TT3P #### [facility] [address] [address] [address] Belkys Fajardo PREG GROWTHon 12-08-2021 US PREG GROWTH EXAMINATION: [...] YOGI BLACK Date: 2021-12-08 16:52 Normal [facility] GLUCOSE - 1HRon 11-12-2021 Glucose [Mass/Vol] 143 mg/dL Critically high 74-[address] [facility] Comment on above: Performed By: #### U ACSTAMELA UMICRO #### [facility] [address] [address] [address] Belkys Fajardo HEMOGRAM AND PLATELon 2021 Hematocrit (Bld) [Volume fraction] 31.7 % Critically low 36.0-48.0 [facility] Comment on above: Performed By: #### A FPTET #### [facility] [address] [address] [address] Belkys Fajardo Hemoglobin (Bld) [Mass/Vol] 10.4 g/dL Critically low 12.0-16.0 [facility] Comment on above: Performed By: #### A FPTET #### [facility] [address] [place] [address] Dr. Belkys Fajardo MCH (RBC) [Entitic mass] 28.8 pg Normal 26.7-34.0 [facility] Comment on above: Performed By: #### A FPTET #### [facility] [address] [address] [address] Belkys Fajardo MCHC (RBC) [Mass/Vol] 32.8 g/dL Normal 29.9-35.2 [facility] Comment on above: Performed By: #### A FPTET #### [facility] [address] [address] [address] Belkys Fajardo MCV (RBC) [Entitic vol] 87.8 fL Normal 81.0-99.0 [facility] Comment on above: Performed By: #### A FPTET #### [facility] [address] [place] [address] Dr. Belkys Fajardo PLT 261 103/ul Normal 150-450 [facility] Comment on above: Performed By: #### A FPTET #### [facility] [address] [place] [address] Dr. Belkys Fajardo RBC 3.61 106/ul Critically low 4.20-5.40 [facility] Comment on above: Performed By: #### A FPTET #### [facility] [address] [place] [address] Dr. Belkys Fajardo WBC 11.5 103/ul Critically high 4.0-11.0 [facility] Comment on above: Performed By: #### A FPTET #### [facility] [address] [place] [address] Dr. Belkys Fajardo US PREG PLACENTAon 2 [...] YOGI BLACK Date: 2021-11-10 21:07 Normal [facility] US PREG PLACENTAon 2 US PREG PLACENTA EXAMINATION: US PREG PLACENTA HISTORY: Low lying placenta COMPARISON: Ultrasound anatomy 09/16/2021 FINDINGS: PLACENTA: Posterior with lower margin 2.5 cm from os. CERVIX LENGTH: 4.4 cm, closed. HEART RATE: 157 bpm OTHER: None. IMPRESSION: 1. Low-lying posterior placenta; no appreciable change compared to prior study. Electronically authenticated by: YOGI BLACK Date: 2021-10-14 19:56 Normal [facility] US PREG ANATOMY SINGLEon US [...] by: YOGI BLACK Date: 2021-09-16 16:54 Normal [facility] AFP TETRA PROFILE (MATERNAL) on 06-12-2022 AFP MoM 0.86 Normal [facility] Comment on above: Performed By: #### A FPTET #### [facility] [address] [address] [address] Belkys Fajardo AFP Value 39.7 ng/mL Normal [facility] Comment on above: Performed By: #### A FPTET #### [facility] [address] [address] [address] Belkys Fajardo Comment Comment Normal [facility] Comment on above: Result Comment: Geremias Greer, Ph.D., [facility] Director . References: Available Upon Request. . Multiples Of Median Cutoffs Abbreviation Definitions For AFP Elevations IDD- Insulin Dep Diabetes Granados 2.5 Black 2.8 OSBR- Open Spina Bifida IDD 2.0 Twins 4.5 Risk DSR Cutoff 1:270 DSR- Down Syndrome Risk T18 Cutoff 1:100 T18- Trisomy 18 . Down Syndrome and Trisomy 18 screening are considered Investigational . For further inquiries contact [facility] at [phone]. Performed By: #### A FPTET #### [facility] [address] [place] [address] Dr. Belkys Fajardo MONIE MoM 0.77 Normal [facility] Comment on above: Performed By: #### A FPTET #### [facility] [address] [place] [address] Dr. Belkys Fajardo MONIE Value 113.50 pg/mL Normal [facility] Comment on above: Performed By: #### A FPTET #### [facility] [address] [address] [address] Belkys Fajardo DSR (By Age) 1 [place] 765 Normal [facility] Comment on above: Performed By: #### A FPTET #### [facility] [address] [place] [address] Dr. Belkys Fajardo DSR (Second Trimester) 1 [place] [address] Normal [facility] Comment on above: Performed By: #### A FPTET #### [facility] [address] [place] [address] Dr. Belkys Fajardo Gest. Age on Collection Date 18.7 WEEKS Normal [facility] Comment on above: Performed By: #### A FPTET #### [facility] [address] [address] [address] Belkys Fajardo Gestat. Age Based On LMP Normal [facility] Comment on above: Result Comment: 03/30 Performed By: #### A FPTET #### [facility] [address] [place] [address] Dr. Belkys Fajardo hCG MoM 0.78 Normal [facility] Comment on above: Performed By: #### A FPTET #### [facility] [address] [address] [address] Belkys Fajardo HCG Qn m[IU]/mL Normal [facility] Comment on above: Performed By: #### A FPTET #### [facility] [address] [place] [address] Dr. Belkys Fajardo Insulin Dep Diabetes No Normal [facility] Comment on above: Performed By: #### A FPTET #### [facility] [address] [place] [address] Dr. Belkys Fajardo Interpretation Comment Normal [facility] Comment on above: Result Comment: Inte [...] identifies 60% of Trisomy 18 pregnancies. The [employer] recommends amniocentesis be offered to women age 35 and older. Recalculations are not recommended when gestational dating by LMP and ultrasound are within 10 days. Performed By: #### A FPTET #### [facility] [address] [place] [address] Dr. Belkys Fajardo [age] Normal [facility] Comment on above: Performed By: #### A FPTET #### [facility] [address] [address] [address] Belkys Fajardo Multiple Gestation No Normal [facility] Comment on above: Performed By: #### A FPTET #### [facility] [address] [address] [address] Belkys Fajardo OSBR [place] 1 [place] [address] Normal [facility] Comment on above: Performed By: #### A FPTET #### [facility] [address] [address] [address] Belkys Fajardo PDF . Normal [facility] Comment on above: Performed By: #### A FPTET #### [facility] [address] [address] [address] Belkys Fajardo Race [facility] Comment on above: Performed By: #### A FPTET #### [facility] [address] [address] [address] Belkys Fajardo Results Report [facility] Comment on above: Performed By: #### A FPTET #### [facility] [address] [address] [address] Belkys Fajardo T18 (By Age) 1:2981 Normal [facility] Comment on above: Performed By: #### A FPTET #### [facility] [address] [address] [address] Belkys Fajardo T18 Risk Not increased [facility] Comment on above: Performed By: #### A FPTET #### [facility] [address] [address] [address] Belkys Fajardo Test Results: Negative [facility] Comment on above: Performed By: #### A FPTET #### [facility] [address] [address] [address] Belkys Fajardo uE3 MoM 1.43 [facility] Comment on above: Performed By: #### A FPTET #### [facility] [address] [address] [address] Belkys Fajardo uE3 Value 2.26 ng/mL [facility] Comment on above: Performed By: #### A FPTET #### [facility] [address] [place] [address] Dr. Belkys Fajardo PAP ACOG PANEL 2: 21 to 29on 08-24-2021 . . Normal [facility] Comment on above: Result Comment: Perf ormed at: BA Performed By: #### [id number] #### [facility] [address] [place] [address] Dr. Belkys Fajardo Age Gdln ACOG Testing [facility] Comment on above: Performed By: #### [id number] #### [facility] [address] [place] [address] Dr. Belkys Fajardo DIAGNOSIS: Comment [facility] Comment on above: Result Comment: NEGA TIVE FOR INTRAEPITHELIAL LESION OR MALIGNANCY. Performed at: BA Performed By: #### [id number] #### [facility] [address] [place] [address] Dr. Belkys Fajardo Methodology: Comment [facility] Comment on above: Result Comment: This liquid based ThinPrep(R) pap test was screened with the use of an image guided system. Performed at: WB Performed By: #### [id number] #### [facility] [address] [place] [address] Dr. Belkys Fajardo Note: Comment [facility] Comment on above: Result Comment: The Pap smear is a screening test designed to aid in the detection of premalignant and malignant conditions of the uterine cervix. It is not a diagnostic procedure and should not be used as the sole means of detecting cervical cancer. Both false-positive and false-negative reports do occur. . Performed at: WB Performed By: #### [id number] #### [facility] [address] [place] [address] Dr. Belkys Fajardo Performed by: Comment Normal [facility] Comment on above: Result Comment: Vicky Avila, Certified Nutritionist (ASCP) Performed at: BA Performed By: #### [id number] #### [facility] [address] [place] [address] Dr. Belkys Fajardo Reflex Criteria: Comment Normal [facility] Comment on above: Result Comment: The HPV DNA reflex criteria were not met with this specimen result therefore, no HPV testing was performed. . Performed at: BA Performed By: #### [id number] #### [facility] [address] [place] [address] Dr. Belkys Fajardo Specimen adequacy: Comment Normal [facility] Comment on above: Result Comment: Sati sfactory for evaluation. No endocervical component is identified. Performed at: BA Performed By: #### [id number] #### [facility] [address] [place] [address] Dr. Belkys Fajardo CBC AUTO DIFFon 08-22-2021 BASO # 0.0 103/ul Normal 0.0-0.1 [facility] Comment on above: Performed By: #### C BC #### [facility] [address] [place] [address] Dr. Belkys Fajardo Basophils/100 WBC (Bld) 0.2 % Normal 0.2-2.0 [facility] Comment on above: Performed By: #### C BC #### [facility] [address] [place] [address] Dr. Belkys Fajardo EO # 0.2 103/ul Normal 0.0-0.7 [facility] Comment on above: Performed By: #### C BC #### [facility] [address] [place] [address] Dr. Belkys Fajardo Eosinophils/100 WBC (Bld) 1.9 % Normal 0.9-7.0 [facility] Comment on above: Performed By: #### C BC #### [facility] [address] [place] [address] Dr. Belkys Fajardo Erythrocyte distribution width (RBC) [Ratio] 13.4 % Normal 11.0-15.0 [facility] Comment on above: Performed By: #### C BC #### [facility] [address] [place] [address] Dr. Belkys Fajardo Hematocrit (Bld) [Volume fraction] 32.7 % Critically low 36.0-48.0 [facility] Comment on above: Performed By: #### C BC #### [facility] [address] [address] [address] Belkys Fajardo Hemoglobin (Bld) [Mass/Vol] 11.0 g/dL Critically low 12.0-16.0 [facility] Comment on above: Performed By: #### C BC #### [facility] [address] [address] [address] Belkys Fajardo IG # 0.05 10e3/ul Critically high 0.00-0.03 [facility] Comment on above: Performed By: #### C BC #### [facility] [address] [place] [address] Dr. Belkys Fajardo IG % 0.5 % Normal 0.0-0.5 [facility] Comment on above: Performed By: #### C BC #### [facility] [address] [place] [address] Dr. Belkys Fajardo LYMPH # 2.3 103/ul Normal 1.2-3.8 [facility] Comment on above: Performed By: #### C BC #### [facility] [address] [place] [address] Dr. Belkys Fajardo Lymphocytes/100 WBC (Bld) 22.4 % Normal 20.5-60.0 [facility] Comment on above: Performed By: #### C BC #### [facility] [address] [place] [address] Dr. Belkys Fajardo MANUAL DIFF REQ NO Normal [facility] Comment on above: Performed By: #### C BC #### [facility] [address] [place] [address] Dr. Belkys Fajardo MCH (RBC) [Entitic mass] 29.3 pg Normal 26.7-34.0 [facility] Comment on above: Performed By: #### C BC #### [facility] [address] [place] [address] Dr. Belkys Fajardo MCHC (RBC) [Mass/Vol] 33.6 g/dL Normal 29.9-35.2 [facility] Comment on above: Performed By: #### C BC #### [facility] [address] [address] [address] Belkys Fajardo MCV (RBC) [Entitic vol] 87.2 fL Normal 81.0-99.0 [facility] Comment on above: Performed By: #### C BC #### [facility] [address] [address] [address] Belkys Fajardo MONO # 0.6 103/ul Normal 0.3-0.8 [facility] Comment on above: Performed By: #### C BC #### [facility] [address] [address] [address] Belkys Fajardo Monocytes/100 WBC (Bld) 5.5 % Normal 1.7-12.0 [facility] Comment on above: Performed By: #### C BC #### [facility] [address] [place] [address] Dr. Belkys Fajardo NEUT # 7.1 103/ul Critically high 1.4-6.5 [facility] Comment on above: Performed By: #### C BC #### [facility] [address] [place] [address] Dr. Belkys Fajardo Neutrophils/100 WBC (Bld) 69.5 % Normal 43.0-75.0 [facility] Comment on above: Performed By: #### C BC #### [facility] [address] [place] [address] Dr. Belkys Fajardo Platelet mean volume (Bld) [Entitic vol] 10.3 fL Normal 9.5-13.5 [facility] Comment on above: Performed By: #### C BC #### [facility] [address] [place] [address] Dr. Belkys Fajardo PLT 258 103/ul Normal 150-450 [facility] Comment on above: Performed By: #### C BC #### [facility] [address] [place] [address] Dr. Belkys Fajardo RBC 3.75 106/ul Critically low 4.20-5.40 [facility] Comment on above: Performed By: #### C BC #### [facility] [address] [place], [place] [address] Dr. Belkys Fajardo WBC 10.2 103/ul Normal 4.0-11.0 [facility] Comment on above: Performed By: #### C #### [facility] [address] [place], [place] [address] Dr. Belkys Fajardo CTA CHEST WO W [...] ROSARIO HERNANDEZ Date: 2021-08-22 08:31 Normal [facility] SARS-CoV-2 (COVID-19) RNA DEVIN+probe Ql (Unsp spec) Not detected Normal NOT DETECTED [facility] Comment on above: Result Comment: When [...] for this test is supported by the Shoulder Sawyer of Health and Human Service's declaration that [...] used). Performed By: #### C VDTB #### [facility] [address] [place] [address] Dr. Belkys Fajardo PROF 14(COMP METB)on 022 Albumin [Mass/Vol] 3.0 g/dL Critically low 3.4-5.0 Th e [facility] Comment on above: Performed By: #### A FPTET #### [facility] [address] [place] [address] Dr. Belkys Fajardo Albumin/Globulin [Mass ratio] 0.8 {ratio} Normal [facility] Comment on above: Performed By: #### A FPTET #### [facility] [address] [place] [address] Dr. Belkys Fajardo ALP [Catalytic activity/Vol] 52 U/L Normal 46-116 [facility] Comment on above: Performed By: #### A FPTET #### [facility] [address] [place] [address] Dr. Belkys Fajardo ALT [Catalytic activity/Vol] 32 U/L Normal 14-59 [facility] Comment on above: Performed By: #### A FPTET #### [facility] [address] [place] [address] Dr. Belkys Fajardo Anion gap [Moles/Vol] 12.8 mmol/L Normal [facility] Comment on above: Performed By: #### A FPTET #### [facility] [address] [place] [address] Dr. Belkys Fajardo AST [Catalytic activity/Vol] 17 U/L Normal 15-37 [facility] Comment on above: Performed By: #### A FPTET #### [facility] [address] [place] [address] Dr. Belkys Fajardo Bilirubin [Mass/Vol] 0.3 mg/dL Normal 0.2-1.0 [facility] Comment on above: Performed By: #### A FPTET #### [facility] [address] [place] [address] Dr. Belkys Fajardo Calcium [Mass/Vol] 8.5 mg/dL Normal 8.5-10.1 [facility] Comment on above: Performed By: #### A FPTET #### [facility] [address] [address] [address] Belkys Fajardo Chloride [Moles/Vol] 103 mmol/L Normal 98-107 [facility] Comment on above: Performed By: #### A FPTET #### [facility] [address] [place] [address] Dr. Belkys Fajardo CO2 [Moles/Vol] 24.7 mmol/L Normal 21.0-32.0 [facility] Comment on above: Performed By: #### A FPTET #### [facility] [address] [place] [address] Dr. Belkys Fajardo Creatinine [Mass/Vol] 0.46 mg/dL Critically low 0.55-1.02 [facility] Comment on above: Performed By: #### A FPTET #### [facility] [address] [place] [address] Dr. Belkys Fajardo EGFR-AF ISRAELI >60 Normal >=60 [facility] Comment on above: Performed By: #### A FPTET #### [facility] [address] [place] [address] Dr. Belkys Fajardo EGFR-NON AF ISRAELI >60 Normal >=60 [facility] Comment on above: Performed By: #### A FPTET #### [facility] [address] [place] [address] Dr. Belkys Fajardo Globulin (S) [Mass/Vol] 3.7 g/dL Normal [facility] Comment on above: Performed By: #### A FPTET #### [facility] [address] [place] [address] Dr. Belkys Fajardo Glucose [Mass/Vol] 84 mg/dL Normal 74-106 [facility] Comment on above: Performed By: #### A FPTET #### [facility] [address] [place] [address] Dr. Belkys Fajardo Potassium [Moles/Vol] 3.5 mmol/L Normal 3.5-5.1 [facility] Comment on above: Performed By: #### A FPTET #### [facility] [address] [place] [address] Dr. Belkys Fajardo Protein [Mass/Vol] 6.7 g/dL Normal 6.4-8.2 [facility] [facility] Comment on above: Performed By: #### A FPTET #### [facility] [address] [place] [address] Dr. Belkys Fajardo Sodium [Moles/Vol] 137 mmol/L Normal 136-145 [facility] Comment on above: Performed By: #### A FPTET #### [facility] [address] [place] [address] Dr. Belkys Fajardo Urea nitrogen [Mass/Vol] 7.0 mg/dL Normal 7.0-18.0 [facility] Comment on above: Performed By: #### A FPTET #### [facility] [address] [place] [address] Dr. Belkys Fajardo Urea nitrogen/Creatinine [Mass ratio] 15.2 mg/mg Normal [facility] Comment on above: Performed By: #### A FPTET #### [facility] [address] [place] [address] Dr. Belkys Fajardo TROPONIN, HIGH SENSITIVITYon 08-22-2021 HSTROP <4.0 Normal 4.0-51.3 [facility] Comment on above: Result Comment: CUT- OFF POINTS HAVE BEEN ESTABLISHED BASED ON THE FOURTH UNIVERSAL DEFINITIONS OF MYOCARDIAL INFARCTION. THE UPPER REFERENCE LIMIT (URL) OF TROPONIN, DEFINED THE 99TH PERCENTILE OF cTnI DISTRIBUTION IN A REFERENCE POPULATION, HAS BEEN CONFIRMED THE DECISION THRESHOLD FOR WI DIAGNOSIS. Performed By: #### A FPTET #### [facility] [address] [place] [address] Dr. Belkys Fajardo CHLAMYDIA/GONOCOCCUS DEVIN (SW AB/URINE/PAPon 08-21-2021 Chlamydia trachomatis, DEVIN Negative Normal Negative [facility] Comment on above: Performed By: #### C T/NGNA #### [facility] [address] [place] [address] Dr. Belkys Fajardo Neisseria gonorrhoeae, DEVIN Negative Normal Negative [facility] Comment on above: Performed By: #### C T/NGNA #### [facility] [address] [address] [address] Belkys Fajardo VAGINITIS/VAGINOSIS DNA PROB Gab 08-20-2021 Lani species Negative Normal Negative [facility] Comment on above: Performed By: #### A FPTET #### [facility] [address] [place] [address] Dr. Belkys Fajardo Gardnerella vaginalis Negative Normal Negative [facility] Comment on above: Performed By: #### A FPTET #### [facility] [address] [address] [address] Belkys Fajardo Trichomonas vaginalis Negative Normal Negative [facility] Comment on above: Performed By: #### A FPTET #### [facility] [address] [place] [address] Dr. Belkys Fajardo Social History Date Type Detail Facility Start: 03-09-2021 Alcohol intake Current drinke r of alcohol (finding) [facility] Phone: Start: 03-09-2021 Alcohol intake [employer] Phone: Start: 08-29-2014 Tobacco smoking status NHIS Never smoked tobacco [facility] Phone: Start: 08-29-2014 Tobacco use and exposure Smokeless tobacco non-user [facility] Phone: Start: 08-29-2014 History SDOH Alcohol Comment occ. [facility] Phone: Start: 1990 [facility] Sex Assigned At Sex Assigned At Bir th [email or web address] Other Vital Signs Date Time Vital Sign Value Performing Clinician Facility 07-28-2022 10:15-0400 Body height 170.18 cm Nick Ball Other [email or web address] Other 07-28-2022 10:15-0400 Body mass index (BMI) [Ratio] 27.81 kg/m2 Nick Ball [email or web address] Other 07-28-2022 10:15-0400 Body weight 80.56 kg Nick Ball Other [email or web address] Other 07-28-2022 10:15-0400 Diastolic blood pressure 75 mm[Hg] Nick Ball Other [email or web address] Other 07-28-2022 10:15-0400 Systolic blood pressure 112 mm[Hg] Nick Ball Other [email or web address] Other 06-04-2022 17:00-0500 Body height 170.18 cm Cristal Guidry Other [email or web address] Other 06-04-2022 17:00-0500 Body mass index (BMI) [Ratio] 28.19 kg/m2 Cristal Guidry Other [email or web address] Other 06-04-2022 17:00-0500 Body temperature 97.4 [degF] Cristal Guidry Other [email or web address] Other 06-04-2022 17:00-0500 Body weight 81.65 kg Cristal Guidry Other [email or web address] Other 06-04-2022 17:00-0500 Respiratory rate 18 /min Cristal Guidry Other [email or web address] Other 06-04-2022 17:00-0500 SaO2% (BldA) [Mass fraction] 98 % Cristal Guidry Other [email or web address] Other 09-06-2021 02:05-0400 Body weight 77.[address] CHEYENNE MEADE . [facility] Comment on above: Performed By: #### AFPTET #### [facility] [address] [address] [address] Belkys Fajardo Evaluation note 07-28-2022 Note [...] Monitor for now may not need [email or web address] Other Evaluation note 06-04-2022 Note Date & [...] other viral communicable diseases (ICD-10 - Z20.828) [employer] Other Clinical Note 01-23-2022 Note Date & Type Note Facility 01-23-2022 Note OPERATIVE NOTE OPERATION DATE: 02/18/2022 PROCEDURE: Repair of fourth degree perineal laceration. PREOPERATIVE DIAGNOSIS: Fourth degree perineal laceration. POSTOPERATIVE DIAGNOSIS: Fourth degree perineal laceration. ANESTHESIA: Epidural SURGEON: Cheyenne Meade D.O. TIMBER CRUISER: BOBO Cole URINE OUTPUT: Yellow and clear. [...] taken to recovery in stable condition. [facility] Clinical Note 01-23-2022 Note Date & Type Note Facility 01-23-2022 Note OP Note OPERATION DATE: 01/23/2022 PROCEDURE: Repair of fourth degree perineal laceration. PREOPERATIVE DIAGNOSIS: Fourth degree perineal laceration. POSTOPERATIVE DIAGNOSIS: Fourth degree perineal laceration. ANESTHESIA: Epidural SURGEON: Cheyenne Meade D.O. TIMBER CRUISER: BOBO Cole URINE OUTPUT: Yellow and clear. [...] taken to recovery in stable condition. [facility] Clinical Note 01-23-2022 Note Date & Type Note Facility 01-23-2022 Note OPERATIVE NOTE OPERATION DATE: 02/10/2022 PROCEDURE: Repair of fourth degree laceration. PREOPERATIVE DIAGNOSIS: Fourth degree laceration. POSTOPERATIVE DIAGNOSIS: Fourth degree laceration. ANESTHESIA: General. SURGEON: Cheyenne Meade D.O. TIMBER CRUISER: BOBO URINE OUTPUT: Yellow and clear. BLOOD [...] sheath and this was done in a [id number] fashion. This was performed using 3-0 Vicryl. [...] The patient tolerated this procedure well. [facility] Clinical Note 08-22-2021 Note Date & [...] by: DERIC VO Date: 2021-08-22 07:30 [facility] Evaluation note Note Date & Type Note Facility Evaluation note Diagnosis Palpitations Post-COVID chronic palpitations Shortness of breath Lightheaded Dizziness and giddiness Dizziness Dizziness and giddiness documented in this encounter [facility] Phone: Evaluation note Note Date & Type Note Facility Evaluation note No Information [employer] Other History general Narrative - Reported Note Date & Type Note Facility History general Narrative - Reported Type Medical History POTS Medical History sinus tachycardia Surgical History 4th degree vaginal tear after g iving 2021 [email or web address] Other History general Narrative - Reported Note Date & Type Note Facility History general Narrative - Reported Type Medical History POTS Medical History sinus tachycardia Medical History Anxiety, generalized Surgical History 4th degree vaginal t ear after giving 2021 Surgical History MASTOPEXY OF BOTH BR EASTS WITH INSERTION OF SALINE IMPLANTS Hospitalization History SEE SURGICAL HX [facility] Other Reason for Referral Specialty Diagnoses / Procedures Referred By Willy smith Referred To Contact Cardiology Diagnoses Palpitations Post-COVID chronic palpitations Shortness of breath Lightheaded Dizziness Procedures Holter Monitor 24 Hour Yogi Marquez MD [address] [place] [id number] Referral ID Status Reason Start Date Expiration Date Visits Re quested Visits Authorized [id number] Open 03/09/2021 03/09/2022 1 1 Advance Directives No Advanced Directives Records FoundDocuments on File Type Date Recorded Patient [employer] Expl anation ACP-Advance Directive ACP-Power of Hand [employer] Summary Purpose Family History No Family History Records FoundNo Family History Records FoundNo Family History Records Found Additional Source Comments Reason for Visit (unrecogniz ed section and content) Specialty Diagnoses / Procedures Referred By Willy smith Referred To Contact Cardiology Diagnoses Palpitations Post-COVID chronic palpitations Shortness of breath Lightheaded Dizziness Procedures Holter Monitor 24 Hour Yogi Marquez MD [address] [place] [id number] Referral ID Status Reason Start Date Expiration Date Visits Re quested Visits Authorized [id number] Open 03/09/2021 03/09/2022 1 1 Care Teams (unrecognized sec tion and content) Chart Computer Relationship Specialty Start Date End Date Nick Leonardo, [address] [facility] [place] [address] PCP - General Internal Medicine 03/09/21 INFORMATION SOURCE (unrecogn ized section and content) DATE CREATED AUTHOR 07/01/2022 [facility] DATE CREATED AUTHOR AUTHOR'S ORGANIZ ATION 09/22/2023 [facility] DATE CREATED AUTHOR AUTHOR'S ORGANIZ ATION 10/21/2023 [facility] FOR RECORDS PERTAINING TO PATIENTS WHO [...] BE BASED ON THE PRIMARY CLINICAL RECORDS. [facility]. provides no warranty or guarantee of the accuracy or completeness of information in this document.
--- NOTE | 2023-10-26 17:16 | US_ITS ---
[address] [address] Patient Name: AUDREY DOZIER MRN: [id number] date: 1990 Sex: F Assigned Patient Location: [facility] Current Patient Location: Accession/Order Number: [id number] Exam Date: 10/26/2023 17:20 Report Date: 10/27/2023 05:29 At the request of: CHEYENNE BLOOM Procedure: US OB BPP w non-stress EXAMINATION: US OB BPP w non-stress HISTORY:THIRD TRIMESTER Z34.93 COMPARISON: Ultrasound OB biophysical 10/17/2023 TECHNIQUE: Ultrasound biophysical profile was performed in the radiology department. BREATHING MOVEMENTS: 2 GROSS BODY MOVEMENTS: 2 TONE: 2 QUALITATIVE AMNIOTIC FLUID VOLUME: 2 PRESENTATION: CEPHALIC HEART RATE: 137.06 bpm AMNIOTIC FLUID VOLUME: 12.54 cm GESTATIONAL AGE: 36 weeks 6 days US/US OB BPP w non-stress IMPRESSION: Total biophysical profile score: 8 Electronically authenticated by: AILYN BLACK Date: 10/27/2023 05:29
[2023-10-26 17:56] VITALS: BP 110/75; PULSE 94
== END 2023-10-26 18:35 | disposition home or self-care (01) ==
LOC: US 07:02 → FBC 17:12
PROVIDERS: PCP Family Medicine; Visit Provider Obstetrics & Gynecology
DX: Z34.93 Encounter for supervision of normal pregnancy, unspecified, third trimester (principal); G90.A Postural orthostatic tachycardia syndrome [POTS]; Z3A.36 36 weeks gestation of pregnancy
CPT/HCPCS: 76818

== ENCOUNTER 2023-10-29 08:04 | Outpatient (OUT) | payer OTHER, SELFPAY ==
--- OUTSIDE RECORDS SUMMARY | 2023-10-29 08:06 | XMS_ITS | CCD ---
Author Organization [facility] Care Team Providers Care Staff Anesthetist Name Role Phone Nick Leonardo DO Primary [...] DR NONE LISTED Primary Care Unavaila ble ZIEBGOKUL, DR YOGI Witt Consulting Unavailable WOLF ., [...] Unavailable BALL, DR TUCKER Primary Care Unavailable ZIEBGOKUL, DR YOGI Witt Consulting Unavailable Nick Leonardo Unavailable YOGI MARQUEZ Attending Unavailable YOGI MARQUEZ Referring Unavailable DE LEON, LIS A Primary Care Unavailable DE LEON, LIS A Primary Care Unavailable SUSANNA WILLIAM Attending Unavailable DE LEON, LIS A Primary Care Unavailable YOGI MARQUEZ Attending Unavailable YOGI MARQUEZ Referring Unavailable MOISES, LIS A Primary Care Unavailable CHEYENNE MEADE Attending Unavailable CHEYENNE MEADE Attending Unavailable CHEYENNE MEADE Attending Unavailable CHEYENNE MEADE Attending Unavailable CHEYENNE MEADE Attending Unavailable WOLFCHEYENNE Attending Unavailable WOLF, CHEYENNE Attending Unavailable WOLF, CHEYENNE Attending Unavailable VALERIE SADLER Attending Unavailable VALERIE SADLER Attending Unavailable Medications [...] Cayla Thornton MD 09/21/23 Final result Normal [facility] CBC with Diffon 09-20-2023 Abs. Basophil 0.05 k/uL Normal 0.00-0.20 [facility] Comment on above: Performed By: #### C DP, PT, MG #### [address] [place] [id number] [employer]: Rosario Linares MD Abs.Imm.Granulocyte 0.20 k/uL Normal 0.00-0.30 [facility] Comment on above: Performed By: #### C DP, PT, MG #### [address] [place] [address] [employer]: Rosario Linares MD Abs.Neutrophil (Seg) 9.90 k/uL High 1.50-8.10 [facility] Comment on above: Performed By: #### C DP, PT, MG #### [address] [place] [address] [employer]: Rosario Linares MD Basophils/100 WBC (Bld) 0 % Normal 0-2 [facility] Comment on above: Performed By: #### C DP, PT, MG #### [address] [place] [address] [employer]: Rosario Linares MD Eosinophils (Bld) [#/Vol] 0.15 10*3/uL Normal 0.00-0.44 [facility] Comment on above: Performed By: #### C DP, PT, MG #### [address] [place] [phone] [employer]: Rosario Linares MD Eosinophils/100 WBC (Bld) 1 % Normal 1-4 [facility] Comment on above: Performed By: #### C DP, PT, MG #### [address] [place] [phone] [employer]: Rosario Linares MD Erythrocyte distribution width (RBC) [Ratio] 12.8 % Normal 11.8-14.4 [facility] Comment on above: Performed By: #### C DP, PT, MG #### [facility] [address] [place] [address] [employer]: Rosario Linares MD Hematocrit (Bld) [Volume fraction] 32.7 % Low 36.3-47.1 [facility] Comment on above: Performed By: #### C DP, PT, MG #### [facility] [address] [place] [address] [employer]: Rosario Linares MD Hemoglobin (Bld) [Mass/Vol] 11.3 g/dL Low 11.9-15.1 [facility] Comment on above: Performed By: #### C DP, PT, MG #### [facility] [address] [place] [address] Dr. [place], [facility]83 [employer]: Rosario Linares MD Immature granulocytes/100 WBC (Bld) 2 % High 0 [facility] Comment on above: Performed By: #### C DP, PT, MG #### [address] [place], [facility]83 [employer]: Rosario Linares MD Lymphocytes (Bld) [#/Vol] 2.23 10*3/uL Normal 1.10-3.70 [facility] Comment on above: Performed By: #### C DP, PT, MG #### [facility] [address] [place], [place] [phone] [employer]: Rosario Linares MD Lymphocytes/100 WBC (Bld) 17 % Low 24-43 [facility] Comment on above: Performed By: #### C DP, PT, MG #### [facility] [address] [place] [address] [employer]: Rosario Linares MD MCH (RBC) [Entitic mass] 29.7 pg Normal 25.2-33.5 [facility] Comment on above: Performed By: #### C DP, PT, MG #### [address] [place], [place] [phone] [place] [employer]: Rosario Linares MD MCHC (RBC) [Mass/Vol] 34.6 g/dL Normal 28.4-34.8 [facility] Comment on above: Performed By: #### C DP, PT, MG #### [address] [place] [address] [employer]: Rosaroi Linares MD MCV (RBC) [Entitic vol] 85.8 fL Normal 82.6-102.9 [facility] Comment on above: Performed By: #### C DP, PT, MG #### [address] [place], [facility]83 [employer]: Rosario Linares MD Monocytes (Bld) [#/Vol] 0.72 10*3/uL Normal 0.10-1.20 [facility] Comment on above: Performed By: #### C DP, PT, MG #### [address] [place], [place] 2020[address] [employer]: Rosario Linares MD Monocytes/100 WBC (Bld) 5 % Normal 3-12 [facility] Comment on above: Performed By: #### C DP, PT, MG #### [address] [place], [place] [phone] [employer]: Rosario Linares MD Neutrophil (Seg) 75 % High 36-65 [facility] Comment on above: Performed By: #### C DP, PT, MG #### [address] [place] [address] [employer]: Rosario Linares MD NRBC Automated 0.0 per 100 WBC Normal 0.0 [facility] Comment on above: Performed By: #### C DP, PT, MG #### [facility] [address] [place], [place] [phone] [employer]: Rosario Linares MD Platelet mean volume (Bld) [Entitic vol] 10.2 fL Normal 8.1-13.5 [facility] Comment on above: Performed By: #### C DP, PT, MG #### [facility] [address] [place], [place] [phone] [employer]: Rosario Linares MD Platelets (Bld) [#/Vol] 293 10*3/uL Normal 138-453 [facility] Comment on above: Performed By: #### C DP, PT, MG #### [facility] [address] [place], [place] [phone] [employer]: Rosario Linares MD RBC (Bld) [#/Vol] 3.81 10*6/uL Low 3.95-5.11 [facility] Comment on above: Performed By: #### C DP, PT, MG #### [address] [place], [place] [phone] [employer]: Rosario Linares MD WBC (Bld) [#/Vol] 13.3 10*3/uL High 3.5-11.3 [facility] Comment on above: Performed By: #### C DP, PT, MG #### [facility] [address] [place] [address] Dr. [place], [facility]83 [employer]: Rosario Linares MD Comp Metabolic Profon 2023 Albumin [Mass/Vol] 3.5 g/dL Normal 3.5-5.2 [facility] Comment on above: Performed By: #### C P #### [facility] [address] [place], [place] [phone] [employer]: Rosario Linares MD Albumin/Glob Ratio 1.1 Normal 1.0-2.5 [facility] Comment on above: Performed By: #### C P #### [facility] [address] [place] [address] [employer]: Rosario Linares MD Alkaline Phos 103 U/L Normal 35-104 [facility] Comment on above: Performed By: #### C P #### [facility] [address] [place], [place] [phone] [employer]: Rosario Linares MD ALT [Catalytic activity/Vol] 16 U/L Normal 5-33 [facility] Comment on above: Performed By: #### C P #### [facility] [address] [place], [place] [id number] [employer]: Rosario Linares MD Anion gap [Moles/Vol] 10 mmol/L Normal 9-17 [facility] Comment on above: Performed By: #### C P #### [facility] [address] [place], [place] [phone] [employer]: Rosario Linares MD AST [Catalytic activity/Vol] 16 U/L Normal <32 [facility] Comment on above: Performed By: #### C P #### [facility] [address] [place], [place] [phone] [employer]: Rosario Linares MD Bilirubin [Mass/Vol] 0.2 mg/dL Low 0.3-1.2 [facility] Comment on above: Performed By: #### C P #### [facility] [address] [place], [place] [phone] [employer]: Rosario Linares MD BUN/CRE Ratio 18 Normal 9-20 [facility] Comment on above: Performed By: #### C P #### [facility] [address] [place], [place] [phone] [employer]: Rosario Linares MD Calcium [Mass/Vol] 8.4 mg/dL Low 8.6-10.4 [facility] Comment on above: Performed By: #### C P #### [facility] [address] [place] [address] [employer]: Rosario Linares MD Chloride [Moles/Vol] 101 mmol/L Normal 98-107 [facility] Comment on above: Performed By: #### C P #### [facility] [address] [place] [address] [employer]: Rosario Linares MD CO2 [Moles/Vol] 22 mmol/L Normal 20-31 [facility] Comment on above: Performed By: #### C P #### [facility] [address] [place] [address] [employer]: Rosario Linares MD Creatinine [Mass/Vol] 0.4 mg/dL Low 0.5-0.9 [facility] Comment on above: Performed By: #### C P #### [facility] [address] [place] [address] [employer]: Rosario Linares MD GFR/1.73 sq M.predicted among non-blacks MDRD (S/P/Bld) [Vol rate/Area] mL/min/{1.73_m2} Normal >60 [facility] Comment on above: Result Comment: These results [...] secretion. Performed By: #### C P #### [facility] [address] [place] [address] [employer]: Rosario Linares MD Glucose [Mass/Vol] 89 mg/dL Normal 70-99 [facility] Comment on above: Performed By: #### C P #### [facility] [address] [place] [address] [employer]: Rosario Linares MD Potassium [Moles/Vol] 3.7 mmol/L Normal 3.7-5.3 [facility] Comment on above: Performed By: #### C P #### [facility] [address] [place] [address] [employer]: Rosario Linares MD Protein [Mass/Vol] 6.7 g/dL Normal 6.4-8.3 [facility] Comment on above: Performed By: #### C P #### [facility] [address] [place] [address] [employer]: Rosario Linares MD Sodium [Moles/Vol] 133 mmol/L Low 135-144 [facility] Comment on above: Performed By: #### C P #### [facility] [address] [place] [address] [employer]: Rosario Linares MD Urea nitrogen [Mass/Vol] 7 mg/dL Normal 6-20 [facility] Comment on above: Performed By: #### C P #### [address] [place] [address] [employer]: Rosario Linares MD D-Dimer Teston 09-20-2023 D-Dimer Test 1.32 ug/mL FEU High 0.00-0.59 [facility] Comment on above: Result Comment: When combined [...] DVT. Performed By: #### D PATI #### [address] [place] [address] [employer]: Rosario Linares MD Magnesiumon 09-20-2023 Magnesium [Mass/Vol] 1.8 mg/dL Normal 1.6-2.6 [facility] Comment on above: Performed By: #### C DP, PT, MG #### [address] [place], [facility]83 [employer]: Rosario Linares MD PTon 09-20-2023 INR Coag (PPP) [Relative time] 1.0 {INR} Normal [facility] Comment on above: Result Comment: Therapeutic Range: Moderate Anticoagulant Intensity: INR = 2.0-3.0 High Anticoagulant Intensity: INR = 2.5-3.5 Performed By: #### C DP, PT, MG #### [address] [place] [address] [employer]: Rosario Linares MD PT Coag (PPP) [Time] 12.8 s Normal 11.7-14.1 [facility] Comment on above: Performed By: #### C DP, PT, MG #### [address] [place] [address] [employer]: Rosario Linares MD Thyroid Stim. Horm.on 2023 Thyroid Stim. Horm. 2.11 uIU/mL Normal 0.30-5.00 [facility] Comment on above: Performed By: #### T SH #### [facility] [address] [place], [place] [phone] [employer]: Rosario Linares MD Troponinon 09-20-2023 Troponin, High Sens <6 Normal 0-14 [facility] Comment on above: Result Comment: High Sensitivity Troponin values cannot be compared with other Troponin methodologies. Performed By: #### T ROPI #### [facility] [address] [place], [place] [phone] [employer]: Rosario Linares MD Basic Metabolic Profon 07-25 Anion gap [Moles/Vol] 13 mmol/L Normal 9-17 [facility] Comment on above: Performed By: #### C DP, BMP #### [facility] [address] [place], [place] [phone] [employer]: Rosario Linares MD BUN/CRE Ratio 18 Normal 9-20 [facility] Comment on above: Performed By: #### C DP, BMP #### [facility] [address] [place], [place] [phone] [employer]: Rosario Linares MD Calcium [Mass/Vol] 8.7 mg/dL Normal 8.6-10.4 [facility] Comment on above: Performed By: #### C DP, BMP #### [facility] [address] [place], [place] [phone] [employer]: Rosario Linares MD Chloride [Moles/Vol] 100 mmol/L Normal 98-107 [facility] Comment on above: Performed By: #### C DP, BMP #### [facility] [address] [place] [address] [employer]: Rosario Linares MD CO2 [Moles/Vol] 21 mmol/L Normal 20-31 [facility] Comment on above: Performed By: #### C DP, BMP #### [facility] [address] [place] [address] [employer]: Rosario Linares MD Creatinine [Mass/Vol] 0.4 mg/dL Low 0.5-0.9 [facility] Comment on above: Performed By: #### C DP, BMP #### [facility] [address] [place], [place] [phone] [employer]: Rosario Linares MD GFR/1.73 sq M.predicted among non-blacks MDRD (S/P/Bld) [Vol rate/Area] mL/min/{1.73_m2} Normal >60 [facility] Comment on above: Result Comment: These results [...] Performed By: #### C DP, BMP #### [facility] [address] [place] [address] [place] [address] [employer]: Rosario Linares MD Glucose [Mass/Vol] 115 mg/dL High 70-99 [facility] Comment on above: Performed By: #### C DP, BMP #### [facility] [address] [place] [address] [employer]: Rosario Linares MD Potassium [Moles/Vol] 3.4 mmol/L Low 3.7-5.3 [facility] Comment on above: Performed By: #### C DP, BMP #### [facility] [address] [place] [address] [employer]: Rosario Linares MD Sodium [Moles/Vol] 134 mmol/L Low 135-144 [facility] Comment on above: Performed By: #### C DP, BMP #### [facility] [address] [place], [place] [address] [employer]: Rosario Linares MD Urea nitrogen [Mass/Vol] 7 mg/dL Normal 6-20 [facility] Comment on above: Performed By: #### C DP, BMP #### [address] [place], [facility]83 [employer]: Rosario Linares MD CBC with Diffon 07-26-2023 Abs. Basophil 0.04 k/uL Normal 0.00-0.20 [facility] Comment on above: Performed By: #### C DP, BMP #### [address] [place], [place] [address] [employer]: Rosario Linares MD Abs.Imm.Granulocyte 0.07 k/uL Normal 0.00-0.30 [facility] Comment on above: Performed By: #### C DP, BMP #### [address] [place], [place] [address] [employer]: Rosario Linares MD Abs.Neutrophil (Seg) 8.51 k/uL High 1.50-8.10 [facility] Comment on above: Performed By: #### C DP, BMP #### [address] [place], [facility]83 [employer]: Rosario Linares MD Basophils/100 WBC (Bld) 0 % Normal 0-2 [facility] Comment on above: Performed By: #### C DP, BMP #### [facility] [address] [place] [address] Dr. [place], [facility]83 [employer]: Rosario Linares MD Eosinophils (Bld) [#/Vol] 0.11 10*3/uL Normal 0.00-0.44 [facility] Comment on above: Performed By: #### C DP, BMP #### [address] [place], [facility]83 [employer]: Rosario Linares MD Eosinophils/100 WBC (Bld) 1 % Normal 1-4 [facility] Comment on above: Performed By: #### C DP, BMP #### [facility] [address] [place] [address] [employer]: Rosario Linares MD Erythrocyte distribution width (RBC) [Ratio] 13.0 % Normal 11.8-14.4 [facility] Comment on above: Performed By: #### C DP, BMP #### [facility] [address] [place] [phone] [employer]: Rosario Linares MD Hematocrit (Bld) [Volume fraction] 36.2 % Low 36.3-47.1 [facility] Comment on above: Performed By: #### C DP, BMP #### [address] [place] [phone] [employer]: Rosario Linares MD Hemoglobin (Bld) [Mass/Vol] 12.2 g/dL Normal 11.9-15.1 [facility] Comment on above: Performed By: #### C DP, BMP #### [address] [place] [address] [employer]: Rosario Linares MD Immature granulocytes/100 WBC (Bld) 1 % High 0 [facility] Comment on above: Performed By: #### C DP, BMP #### [address] [place], [facility]83 [employer]: Rosario Linares MD Lymphocytes (Bld) [#/Vol] 2.63 10*3/uL Normal 1.10-3.70 [facility] Comment on above: Performed By: #### C DP, BMP #### [address] [place], [place] [phone] [employer]: Rosario Linares MD Lymphocytes/100 WBC (Bld) 22 % Low 24-43 [facility] Comment on above: Performed By: #### C DP, BMP #### [facility] [address] [place] [address] [employer]: Rosario Linares MD MCH (RBC) [Entitic mass] 29.8 pg Normal 25.2-33.5 [facility] Comment on above: Performed By: #### C DP, BMP #### [address] [place], [facility]83 [employer]: Rosario Linares MD MCHC (RBC) [Mass/Vol] 33.7 g/dL Normal 28.4-34.8 [facility] Comment on above: Performed By: #### C DP, BMP #### [address] [place] [phone] [employer]: Rosario Linares MD MCV (RBC) [Entitic vol] 88.5 fL Normal 82.6-102.9 [facility] Comment on above: Performed By: #### C DP, BMP #### [address] [place] [phone] [employer]: Rosario Linares MD Monocytes (Bld) [#/Vol] 0.44 10*3/uL Normal 0.10-1.20 [facility] Comment on above: Performed By: #### C DP, BMP #### [address] [place], [place] [address] [employer]: Rosario Linares MD Monocytes/100 WBC (Bld) 4 % Normal 3-12 [facility] Comment on above: Performed By: #### C DP, BMP #### [address] [place], [facility]83 [employer]: Rosario Linares MD Neutrophil (Seg) 72 % High 36-65 [facility] Comment on above: Performed By: #### C DP, BMP #### [address] [place], [place] [phone] [employer]: Rosario Linares MD NRBC Automated 0.0 per 100 WBC Normal 0.0 [facility] Comment on above: Performed By: #### C DP, BMP #### [facility] [address] [place], [place] [phone] [employer]: Rosario Linares MD Platelet mean volume (Bld) [Entitic vol] 10.3 fL Normal 8.1-13.5 [facility] Comment on above: Performed By: #### C DP, BMP #### [facility] [address] [place] [address] [employer]: Rosario Linares MD Platelets (Bld) [#/Vol] 289 10*3/uL Normal 138-453 [facility] Comment on above: Performed By: #### C DP, BMP #### [facility] [address] [place] [address] [employer]eder: Rosario Linares MD RBC (Bld) [#/Vol] 4.09 10*6/uL Normal 3.95-5.11 [facility] Comment on above: Performed By: #### C DP, BMP #### [address] [place], [place] [phone] [employer]eder: Rosario Linares MD WBC (Bld) [#/Vol] 11.8 10*3/uL High 3.5-11.3 [facility] Comment on above: Performed By: #### C DP, BMP #### [facility] [address] [place] [address] [employer]: Rosario Linares MD Troponinon 07-26-2023 Troponin, High Sens 6 ng/L Normal 0-14 [facility] Comment on above: Result Comment: High Sensitivity Troponin values cannot be compared with other Troponin methodologies. Performed By: #### T ROPI #### [facility] [address] [place], [place] [phone] [employer] [place]: Rosario Linares MD UA w/Reflex Cultureon 2023 Bilirubin, SemiQt,Ur Negative Normal NEG [facility] Comment on above: Performed By: #### C DP, BMP #### [facility] [address] [place], [place] [phone] [employer]: Rosario Linares MD Blood, Urine Negative Normal NEG [facility] Comment on above: Performed By: #### C DP, BMP #### [facility] [address] [place], [place] [phone] [employer]: Rosario Linares MD Clarity (U) Clear Normal CLEAR [facility] Comment on above: Performed By: #### C DP, BMP #### [facility] [address] [place], [place] [phone] [employer]: Rosario Linares MD Color (U) Yellow Normal YEL [facility] Comment on above: Performed By: #### C DP, BMP #### [facility] [address] [place], [place] [phone] [employer]: Rosario Linares MD Glucose Ql (U) Negative Normal NEG [facility] Comment on above: Performed By: #### C DP, BMP #### [facility] [address] [place], [place] [phone] [employer]: Rosario Linares MD Ketones Ql (U) Negative Normal NEG [facility] Comment on above: Performed By: #### C DP, BMP #### [facility] [address] [place], [place] [phone] [employer]: Rosario Linares MD Leukocyte esterase Test strip Ql (U) SMALL Abnormal NEG [facility] Comment on above: Performed By: #### C DP, BMP #### [facility] [address] [place], [place] [phone] [employer]: Rosario Linares MD Nitrite,Ur Negative Normal NEG [facility] Comment on above: Performed By: #### C DP, BMP #### [facility] [address] [place], [place] [phone] [employer]: Rosario Linares MD PH,Ur 8.0 Normal 5.0-9.0 [facility] Comment on above: Performed By: #### C DP, BMP #### [facility] [address] [place], [facility]83 [employer]: Rosario Linares MD Protein Ql (U) Negative Normal NEG [facility] Comment on above: Performed By: #### C DP, BMP #### [address] [place], [facility]83 [employer]: Rosario Linares MD Spec. [place],Ur 1.015 Normal 1.010-1.020 [facility] Comment on above: Performed By: #### C DP, BMP #### [facility] [address] [place] [address] [place] [address] [employer]: Rosario Linares MD Urobilinogen,Ur Normal Normal 0.0-1.0 [facility] Comment on above: Performed By: #### C DP, BMP #### [address] [place] [address] [employer]: Rosario Linares MD Urinalysis,Microon 4 Bacteria TRACE Abnormal NONE [facility] Comment on above: Performed By: #### C DP, BMP #### [facility] [address] [place], [place] [phone] [employer]: Rosario Linares MD Epithelial cells LM Ql (Urine sed) 5 TO 10 Normal 0-25 [facility] Comment on above: Performed By: #### C DP, BMP #### [facility] [address] [place], [place] [phone] [employer]: Rosario Linares MD Urine RBC's None Normal 0-2 [facility] Comment on above: Performed By: #### C DP, BMP #### [facility] [address] [place] [address] [employer]: Rosario Linares MD Urine WBC's 2 TO 5 Normal 0-5 [facility] Comment on above: Performed By: #### C DP, BMP #### [facility] [address] [place] [address] [employer]: Rosario Linares MD COVID/FLU/RSV RT-PCRon 06-04 SARS-CoV-2 (COVID-19) RNA DEVIN+probe Ql (Unsp spec) Negative [facility] [employer] Other COVID/FLU/RSV RT-PCR Negative [facility] [employer] Other Quick Strepon 06-04-2022 S. pyogenes Org specific cx Ql (Throat) Negative [facility] [employer] Other Quick Strep [facility] [employer] Other CBC AUTO DIFFon 01-24-2022 BASO # 0.1 103/ul Normal 0.0-0.1 [facility] [facility] Comment on above: Performed By: #### A FPTET #### [facility] [address] [place] [address] Dr. Belkys Fajardo Basophils/100 WBC (Bld) 0.3 % Normal 0.2-2.0 [facility] Comment on above: Performed By: #### A FPTET #### [facility] [address] [place] [address] Dr. Belkys Fajardo EO # 0.1 103/ul Normal 0.0-0.7 [facility] Comment on above: Performed By: #### A FPTET #### [facility] [address] [place] [address] Dr. Belkys Fajardo Eosinophils/100 WBC (Bld) 0.9 % Normal 0.9-7.0 [facility] Comment on above: Performed By: #### A FPTET #### [facility] [address] [address] [address] Belkys Fajardo Erythrocyte distribution width (RBC) [Ratio] 14.0 % Normal 11.0-15.0 [facility] Comment on above: Performed By: #### A FPTET #### [facility] [address] [place] [address] Dr. Belkys Fajardo Hematocrit (Bld) [Volume fraction] 24.8 % Critically low 36.0-48.0 [facility] Comment on above: Performed By: #### A FPTET #### [facility] [address] [place] [address] Dr. Belkys Fajardo Hemoglobin (Bld) [Mass/Vol] 8.2 g/dL Critically low 12.0-16.0 [facility] Comment on above: Performed By: #### A FPTET #### [facility] [address] [place] [address] Dr. Belkys Fajardo IG # 0.23 10e3/ul Critically high 0.00-0.03 [facility] Comment on above: Performed By: #### A FPTET #### [facility] [address] [place] [address] Dr. Belkys Fajardo IG % 1.5 % Critically high 0.0-0.5 [facility] Comment on above: Performed By: #### A FPTET #### [facility] [address] [place] [address] Dr. Belkys Fajardo LYMPH # 2.4 103/ul Normal 1.2-3.8 [facility] Comment on above: Performed By: #### A FPTET #### [facility] [address] [place] [address] Dr. Belkys Fajardo Lymphocytes/100 WBC (Bld) 15.5 % Critically low 20.5-60.0 [facility] Comment on above: Performed By: #### A FPTET #### [facility] [address] [place] [address] Dr. Belkys Fajardo MANUAL DIFF REQ NO Normal [facility] Comment on above: Performed By: #### A FPTET #### [facility] [address] [place] [address] Dr. Belkys Fajardo MCH (RBC) [Entitic mass] 28.5 pg Normal 26.7-34.0 [facility] Comment on above: Performed By: #### A FPTET #### [facility] [address] [place] [address] Dr. Belkys Fajardo MCHC (RBC) [Mass/Vol] 33.1 g/dL Normal 29.9-35.2 [facility] Comment on above: Performed By: #### A FPTET #### [facility] [address] [place] [address] Dr. Belkys Fajardo MCV (RBC) [Entitic vol] 86.1 fL Normal 81.0-99.0 [facility] Comment on above: Performed By: #### A FPTET #### [facility] [address] [place] [address] Dr. Belkys Fajardo MONO # 0.8 103/ul Normal 0.3-0.8 [facility] Comment on above: Performed By: #### A FPTET #### [facility] [address] [place] [address] Dr. Belkys Fajardo Monocytes/100 WBC (Bld) 5.4 % Normal 1.7-12.0 [facility] Comment on above: Performed By: #### A FPTET #### [facility] [address] [place] [address] Dr. Belkys Fajardo NEUT # 11.6 103/ul Critically high 1.4-6.5 [facility] Comment on above: Performed By: #### A FPTET #### [facility] [address] [place] [address] Dr. Belkys Fajardo Neutrophils/100 WBC (Bld) 76.4 % Critically high 43.0-75.0 [facility] Comment on above: Performed By: #### A FPTET #### [facility] [address] [place] [address] Dr. Belkys Fajardo Platelet mean volume (Bld) [Entitic vol] 10.2 fL Normal 9.5-13.5 [facility] Comment on above: Performed By: #### A FPTET #### [facility] [address] [place] [address] Dr. Belkys Fajardo PLT 235 103/ul Normal 150-450 [facility] Comment on above: Performed By: #### A FPTET #### [facility] [address] [place] [address] Dr. Belkys Fajardo RBC 2.88 106/ul Critically low 4.20-5.40 [facility] Comment on above: Performed By: #### A FPTET #### [facility] [address] [place] [address] Dr. Belkys Fajardo WBC 15.2 103/ul Critically high 4.0-11.0 [facility] Comment on above: Performed By: #### A FPTET #### [facility] [address] [place] [address] Dr. Belkys Fajardo CBC AUTO DIFFon 01-23-2022 BASO # 0.1 103/ul Normal 0.0-0.1 [facility] Comment on above: Performed By: #### A FPTET #### [facility] [address] [place] [address] Dr. Belkys Fajardo Basophils/100 WBC (Bld) 0.4 % Normal 0.2-2.0 [facility] Comment on above: Performed By: #### A FPTET #### [facility] [address] [place] [address] Dr. Belkys Fajardo EO # 0.1 103/ul Normal 0.0-0.7 [facility] Comment on above: Performed By: #### A FPTET #### [facility] [address] [place] [address] Dr. Belkys Fajardo Eosinophils/100 WBC (Bld) 0.5 % Critically low 0.9-7.0 [facility] Comment on above: Performed By: #### A FPTET #### [facility] [address] [place] [address] Dr. Belkys Fajardo Erythrocyte distribution width (RBC) [Ratio] 13.8 % Normal 11.0-15.0 [facility] Comment on above: Performed By: #### A FPTET #### [facility] [address] [place] [address] Dr. Belkys Fajardo Hematocrit (Bld) [Volume fraction] 32.5 % Critically low 36.0-48.0 [facility] Comment on above: Performed By: #### A FPTET #### [facility] [address] [place] [address] Dr. Belkys Fajardo Hemoglobin (Bld) [Mass/Vol] 11.0 g/dL Critically low 12.0-16.0 [facility] Comment on above: Performed By: #### A FPTET #### [facility] [address] [place] [address] Dr. Belkys Fajardo IG # 0.31 10e3/ul Critically high 0.00-0.03 [facility] Comment on above: Performed By: #### A FPTET #### [facility] [address] [place] [address] Dr. Belkys Fajardo IG % 1.6 % Critically high 0.0-0.5 [facility] Comment on above: Performed By: #### A FPTET #### [facility] [address] [place] [address] Dr. Belkys Fajardo LYMPH # 2.0 103/ul Normal 1.2-3.8 [facility] Comment on above: Performed By: #### A FPTET #### [facility] [address] [place] [address] Dr. Belkys Fajardo Lymphocytes/100 WBC (Bld) 10.2 % Critically low 20.5-60.0 [facility] Comment on above: Performed By: #### A FPTET #### [facility] [address] [place] [address] Dr. Belkys Fajardo MANUAL DIFF REQ NO Normal [facility] Comment on above: Performed By: #### A FPTET #### [facility] [address] [place], [place] [id number] Dr. Belkys Fajardo MCH (RBC) [Entitic mass] 28.4 pg Normal 26.7-34.0 [facility] Comment on above: Performed By: #### A FPTET #### [facility] [address] [place] [address] Dr. Belkys Fajardo MCHC (RBC) [Mass/Vol] 33.8 g/dL Normal 29.9-35.2 [facility] Comment on above: Performed By: #### A FPTET #### [facility] [address] [place] [address] Dr. Belkys Fajardo MCV (RBC) [Entitic vol] 83.8 fL Normal 81.0-99.0 [facility] Comment on above: Performed By: #### A FPTET #### [facility] [address] [place] [address] Dr. Belkys Fajardo MONO # 0.9 103/ul Critically high 0.3-0.8 [facility] Comment on above: Performed By: #### A FPTET #### [facility] [address] [place] [address] Dr. Belkys Fajardo Monocytes/100 WBC (Bld) 4.8 % Normal 1.7-12.0 [facility] Comment on above: Performed By: #### A FPTET #### [facility] [address] [place] [address] Dr. Belkys Fajardo NEUT # 16.0 103/ul Critically high 1.4-6.5 [facility] Comment on above: Performed By: #### A FPTET #### [facility] [address] [place] [address] Dr. Belkys Fajardo Neutrophils/100 WBC (Bld) 82.5 % Critically high 43.0-75.0 [facility] Comment on above: Performed By: #### A FPTET #### [facility] [address] [place] [address] Dr. Belkys Fajardo Platelet mean volume (Bld) [Entitic vol] 10.1 fL Normal 9.5-13.5 [facility] Comment on above: Performed By: #### A FPTET #### [facility] [address] [address] [address] Belkys Fajardo PLT 301 103/ul Normal 150-450 [facility] Comment on above: Performed By: #### A FPTET #### [facility] [address] [place], [place] [address] Dr. Belkys Fajardo RBC 3.88 106/ul Critically low 4.20-5.[address] [facility] Comment on above: Performed By: #### A FPTET #### [facility] [address] [place], [place] [address] Dr. Belkys Fajardo WBC 19.3 103/ul Critically high 4.0-11.0 [facility] Comment on above: Performed By: #### A FPTET #### [facility] [address] [address] [address] Belkys Fajardo CULTURE URINEon 01-23-2022 CULTURE URINE Culture Observations : LIGHT GROWTH OF MIXED GENITAL HEYDI. NO POTENTIAL PATHOGENS SEEN. Normal [facility] Comment on above: Performed By: #### U ACSIND, UMICRO #### [facility] [address] [address] [address] Belkys Fajardo Covid-19 PCR ([facility])on 12-27 SARS-CoV-2 (COVID-19) RNA DEVIN+probe Ql (Unsp spec) Not detected Normal NOT DETECTED [facility] Comment on above: Result Comment: When [...] for this test is supported by the [employer] of [employer] and [employer]'s declaration that [...] used). Performed By: #### C VDTBH #### [facility] [address] [place] [address] Dr. Belkys Fajardo DRUG SCREEN RAPID (URINE)on 01-23-2022 AMP Negative Normal NEGATIVE [facility] Comment on above: Performed By: #### A FPTET #### [facility] [address] [place] [address] Dr. Belkys Fajardo BAR Negative Normal NEGATIVE [facility] Comment on above: Performed By: #### A FPTET #### [facility] [address] [place] [address] Dr. Belkys Fajardo BUP Negative Normal NEGATIVE [facility] Comment on above: Performed By: #### A FPTET #### [facility] [address] [place] [address] Dr. Belkys Fajardo BZO Negative Normal NEGATIVE [facility] Comment on above: Performed By: #### A FPTET #### [facility] [address] [place] [address] Dr. Belkys Fajardo VALENCIA Negative Normal NEGATIVE [facility] Comment on above: Performed By: #### A FPTET #### [facility] [address] [place] [address] Dr. Belkys Fajardo CUT-OFFS SEE BELOW Normal [facility] Comment on above: Result Comment: AMP [...] ng/mL Performed By: #### A FPTET #### [facility] [address] [place] [address] Dr. Belkys Fajardo DRUG CUT HEADER DRUG CLASS TEST SYSTEM CUT-OFF CONCENTRATIONS ARE FOLLOWS: Normal [facility] Comment on above: Performed By: #### A FPTET #### [facility] [address] [place] [address] Dr. Belkys Fajardo mAMP Negative Normal NEGATIVE [facility] Comment on above: Performed By: #### A FPTET #### [facility] [address] [place] [address] Dr. Belkys Fajardo MTD Negative Normal NEGATIVE [facility] Comment on above: Performed By: #### A FPTET #### [facility] [address] [place] [address] Dr. Belkys Fajardo OPI Negative Normal NEGATIVE [facility] Comment on above: Performed By: #### A FPTET #### [facility] [address] [place] [address] Dr. Belkys Fajardo OXY Negative Normal NEGATIVE [facility] Comment on above: Performed By: #### A FPTET #### [facility] [address] [place] [address] Dr. Belkys Fajardo PCP Negative Normal NEGATIVE [facility] Comment on above: Performed By: #### A FPTET #### [facility] [address] [place] [address] Dr. Belkys Fajardo PPX Negative Normal NEGATIVE [facility] Comment on above: Performed By: #### A FPTET #### [facility] [address] [place] [address] Dr. Belkys Fajardo TCA Negative Normal NEGATIVE [facility] Comment on above: Performed By: #### A FPTET #### [facility] [address] [place] [address] Dr. Belkys Fajardo THC Negative Normal NEGATIVE [facility] Comment on above: Performed By: #### A FPTET #### [facility] [address] [place] [address] Dr. Belkys Fajardo TYPE AND SCREENon 2022 TYPE AND SCREEN Negative Normal [facility] Comment on above: Performed By: #### U ACSIND, UMICRO #### [facility] [address] [address] [address] Belkys Fajardo UA (CLEAN/CATCH) CONTAINER WASHER MACHINE/MICRO I F IND.on 01-23-2022 Bilirubin Ql (U) Negative Normal NEGATIVE [facility] Comment on above: Performed By: #### U ACSIND, UMICRO #### [facility] [address] [address] [address] Belkys Fajardo Clarity (U) CLEAR Normal CLEAR [facility] Comment on above: Performed By: #### U ACSIND, UMICRO #### [facility] [address] [place] [address] Dr. Belkys Fajardo Color (U) LT. YELLOW Normal YELLOW [facility] Comment on above: Performed By: #### U ACSIND, UMICRO #### [facility] [address] [address] [address] Belkys Fajardo Glucose Ql (U) Negative Normal NEGATIVE [facility] Comment on above: Performed By: #### U ACSIND, UMICRO #### [facility] [address] [address] [address] Belkys Fajardo Hemoglobin Ql (U) TRACE-INTACT Abnormal NEGATIVE [facility] Comment on above: Performed By: #### U ACSIND, UMICRO #### [facility] [address] [address] [address] Belkys Fajardo Ketones Ql (U) Negative Normal NEGATIVE [facility] Comment on above: Performed By: #### U ACSIND, UMICRO #### [facility] [address] [address] [address] Belkys Fajardo LEUKOCYTES MODERATE Abnormal NEGATIVE [facility] Comment on above: Performed By: #### U ACSIND, UMICRO #### [facility] [address] [address] [address] Belkys Fajardo Nitrite Ql (U) Negative Normal NEGATIVE [facility] Comment on above: Performed By: #### U ACSIND, UMICRO #### [facility] [address] [address] [address] Belkys Fajardo pH (U) 6.5 [pH] Normal 5-9 [facility] Comment on above: Performed By: #### U ACSTAMELA, UMICRO #### [facility] [address] [address] [address] Belkys Fajardo SPEC GRAVITY 1.015 Normal 1.005-<=1.[address] [facility] Comment on above: Performed By: #### U ACSTAMELA, UMICRO #### [facility] [address] [address] [address] Belkys Fajardo UA PROTEIN Negative Normal NEGATIVE/ TRACE [facility] Comment on above: Performed By: #### U ACSTAMELA UMICRO #### [facility] [address] [place] [address] Dr. Belkys Fajardo UR MICRO IND INDICATED Normal [facility] Comment on above: Performed By: #### U MARIO UMICRO #### [facility] [address] [address] [address] Belkys Fajardo Urobilinogen Qn (U) 0.2 {Jakob'U}/dL Normal 0.2 - 1. 0 [facility] Comment on above: Performed By: #### U ACSTAMELA, UMICRO #### [facility] [address] [place] [address] Dr. Belkys Fajardo URINE MICROSCOPIC ONLYon BACTERIA SMALL Abnormal NONE SEEN [facility] Comment on above: Performed By: #### U ACSTAMELA UMICRO #### [facility] [address] [place] [address] Dr. Belkys Fajardo Bacteria identified Cx Nom (U) INDICATED Normal [facility] Comment on above: Performed By: #### U ACSTAMELA UMICRO #### [facility] [address] [place] [address] Dr. Belkys Fajardo CAST NONE SEEN Normal NONE SEEN [facility] Comment on above: Performed By: #### U ACSTAMELA UMICRO #### [facility] [address] [place] [address] Dr. Belkys Fajardo Crystals LM Nom (Urine sed) NONE SEEN Normal NONE SEEN [facility] Comment on above: Performed By: #### U ACSIND, UMICRO #### [facility] [address] [address] [address] Belkys Fajardo Epithelial cells LM Ql (Urine sed) FEW Abnormal NONE SEEN /RARE [facility] Comment on above: Performed By: #### U ACSIND, UMICRO #### [facility] [address] [address] [address] Belkys Fajardo MUCOUS NONE SEEN Normal NONE SEEN [facility] Comment on above: Performed By: #### U ACSIND, UMICRO #### [facility] [address] [address] [address] Belkys Fajardo RBC NONE SEEN Abnormal 0-2 [facility] Comment on above: Performed By: #### U ACSIND, UMICRO #### [facility] [address] [address] [address] Belkys Fajardo WBC 5-10 Abnormal NONE SEEN [facility] Comment on above: Performed By: #### U ACSIND, UMICRO #### [facility] [address] [address] [address] Belkys Fajardo US PREG GROWTHon 01-12-2022 [...] YOGI BLACK Date: 2022-01-12 21:15 Normal [facility] GROUP B STREP CULTUREon 12-26 S. agalactiae Ag Ql (Unsp spec) Culture Observations: NEGATIVE FOR GROUP B STREPTOCOCCUS. Normal [facility] Comment on above: Performed By: #### G BSCX #### [facility] [address] [place] [address] Dr. Belkys Fajardo GTT 3 HR PREGon 12-11-2021 Glucose [Mass/Vol] 91 mg/dL Normal 74-106 [facility] Comment on above: Performed By: #### G TT3P #### [facility] [address] [place] [address] Dr. Belkys Fajardo Glucose [Mass/Vol] 172 mg/dL Normal [facility] Comment on above: Performed By: #### G TT3P #### [facility] [address] [place] [address] Dr. Belkys Fajardo Glucose [Mass/Vol] 148 mg/dL Normal [facility] Comment on above: Performed By: #### G TT3P #### [facility] [address] [place] [address] Dr. Belkys Fajardo Glucose [Mass/Vol] 58 mg/dL Normal [facility] Comment on above: Performed By: #### G TT3P #### [facility] [address] [place] [address] Dr. Belkys Fajardo US PREG GROWTHon 12-08-2021 [...] YOGI BLACK Date: 2021-12-08 16:52 Normal [facility] GLUCOSE - 1HRon 11-12-2021 Glucose [Mass/Vol] 143 mg/dL Critically high 74-106 T [facility] Comment on above: Performed By: #### U ACSIND, UMICRO #### [facility] [address] [address] [address] Belkys Fajardo HEMOGRAM AND PLATELon 2021 Hematocrit (Bld) [Volume fraction] 31.7 % Critically low 36.0-48.0 [facility] Comment on above: Performed By: #### A FPTET #### [facility] [address] [place] [address] Dr. Belkys Fajardo Hemoglobin (Bld) [Mass/Vol] 10.4 g/dL Critically low 12.0-16.0 [facility] Comment on above: Performed By: #### A FPTET #### [facility] [address] [place] [address] Dr. Belkys Fajardo MCH (RBC) [Entitic mass] 28.8 pg Normal 26.7-34.0 [facility] Comment on above: Performed By: #### A FPTET #### [facility] [address] [place] [address] Dr. Belkys Fajardo MCHC (RBC) [Mass/Vol] 32.8 g/dL Normal 29.9-35.2 [facility] Comment on above: Performed By: #### A FPTET #### [facility] [address] [place] [address] Dr. Belkys Fajardo MCV (RBC) [Entitic vol] 87.8 fL Normal 81.0-99.0 [facility] Comment on above: Performed By: #### A FPTET #### [facility] [address] [address] [address] Belkys Fajardo PLT 261 103/ul Normal 150-450 [facility] Comment on above: Performed By: #### A FPTET #### [facility] [address] [address] [address] Belkys Fajardo RBC 3.61 106/ul Critically low 4.20-5.[address] [facility] Comment on above: Performed By: #### A FPTET #### [facility] [address] [address] [address] Belkys Fajardo WBC 11.5 103/ul Critically high 4.0-11.0 [facility] Comment on above: Performed By: #### A FPTET #### [facility] [address] [address] [address] Belkys Fajardo US PREG PLACENTAon 2 [...] by: YOGI BLACK Date: 2021-11-10 21:[address] [facility] US PREG PLACENTAon 2 US PREG PLACENTA EXAMINATION: US PREG PLACENTA HISTORY: Low lying placenta COMPARISON: Ultrasound anatomy 09/16/2021 FINDINGS: PLACENTA: Posterior with lower margin 2.5 cm from os. CERVIX LENGTH: 4.4 cm, closed. HEART RATE: 157 bpm OTHER: None. IMPRESSION: 1. Low-lying posterior placenta; no appreciable change compared to prior study. Electronically authenticated by: YOGI BLACK Date: 2021-10-14 19:[address] [facility] US PREG ANATOMY SINGLEon US PREG [...] YOGI BLACK Date: 2021-09-16 16:54 Normal [facility] AFP TETRA PROFILE (MATERNAL) on 09-06-2021 PDF . Normal [facility] Comment on above: Performed By: #### A FPTET #### [facility] [address] [address] [address] Belkys Fajardo AFP MoM 0.[address] [facility] Comment on above: Performed By: #### A FPTET #### [facility] [address] [address] [address] Belkys Fajardo AFP Value 39.7 ng/mL Normal [facility] Comment on above: Performed By: #### A FPTET #### [facility] [address] [address] [address] Belkys Fajardo Comment Comment Normal [facility] Comment on above: Result Comment: Geremias Greer, Ph.D., [facility] Director . References: Available Upon Request. . Multiples Of Median Cutoffs Abbreviation Definitions For AFP Elevations IDD- Insulin Dep Diabetes Granados 2.5 Black 2.8 OSBR- Open Spina Bifida IDD 2.0 Twins 4.5 Risk DSR Cutoff 1:270 DSR- Down Syndrome Risk T18 Cutoff 1:100 T18- Trisomy 18 . Down Syndrome and Trisomy 18 screening are considered Investigational . For further inquiries contact [facility] at [phone]. Performed By: #### A FPTET #### [facility] [address] [place] [address] Dr. Belkys Fajardo MONIE MoM 0.77 [facility] Comment on above: Performed By: #### A FPTET #### [facility] [address] [place] [address] Dr. Belkys Fajardo MONIE Value 113.50 pg/mL [facility] Comment on above: Performed By: #### A FPTET #### [facility] [address] [place] [address] Dr. Belkys Fajardo DSR (By Age) 1 [place] 765 Normal [facility] Comment on above: Performed By: #### A FPTET #### [facility] [address] [place] [address] Dr. Belkys Fajardo DSR (Second Trimester) 1 [place] [address] [facility] Comment on above: Performed By: #### A FPTET #### [facility] [address] [place] [address] Dr. Belkys Gilliland Age on Collection Date 20.[address] [facility] Comment on above: Performed By: #### A FPTET #### [facility] [address] [place] [address] Dr. Belkys Pablo. Age Based On LMP [facility] Comment on above: Result Comment: 03/30 Performed By: #### A FPTET #### [facility] [address] [place] [address] Dr. Belkys Fajardo hCG MoM 0.[address] [facility] Comment on above: Performed By: #### A FPTET #### [facility] [address] [place] [address] [place] [address] m[IU]/mL Normal [facility] Comment on above: Performed By: #### A FPTET #### [facility] [address] [place] [address] Dr. Belkys Fajardo Insulin Dep Diabetes No Normal [facility] Comment on above: Performed By: #### A FPTET #### [facility] [address] [place] [address] Dr. Belkys Fajardo Interpretation Comment Normal [facility] Comment on above: Result Comment: Inte [...] identifies 60% of Trisomy 18 pregnancies. The [employer] recommends amniocentesis be offered to women age 35 and older. Recalculations are not recommended when gestational dating by LMP and ultrasound are within 10 days. Performed By: #### A FPTET #### [facility] [address] [place] [address] Dr. Belkys Fajardo [age] Normal [facility] Comment on above: Performed By: #### A FPTET #### [facility] [address] [place] [address] Dr. Belkys Fajardo Multiple Gestation No Normal [facility] Comment on above: Performed By: #### A FPTET #### [facility] [address] [place] [address] Dr. Belkys Fajardo OS[place] 1 [place] [address] Normal [facility] Comment on above: Performed By: #### A FPTET #### [facility] [address] [place] [address] Dr. Belkys Fajardo Race Normal [facility] Comment on above: Performed By: #### A FPTET #### [facility] [address] [address] [address] Belkys Fajardo Results Report Normal [facility] Comment on above: Performed By: #### A FPTET #### [facility] [address] [address] [address] Belkys Fajardo T18 (By Age) 1:[address] [facility] Comment on above: Performed By: #### A FPTET #### [facility] [address] [address] [address] Belkys Fajardo T18 Risk Not increased Normal [facility] Comment on above: Performed By: #### A FPTET #### [facility] [address] [place] [address] Dr. Belkys Fajardo Test Results: Negative Normal [facility] Comment on above: Performed By: #### A FPTET #### [facility] [address] [address] [address] Belkys Fajardo uE3 MoM 1.43 [facility] Comment on above: Performed By: #### A FPTET #### [facility] [address] [place] [address] Dr. Belkys Fajardo uE3 Value 2.26 ng/mL [facility] Comment on above: Performed By: #### A FPTET #### [facility] [address] [place] [address] Dr. Belkys Fajardo PAP ACOG PANEL 2: 21 to 29on 08-24-[address] [facility] Comment on above: Result Comment: Perf ormed at: BA Performed By: #### [id number] #### [facility] [address] [place] [address] Dr. Belkys Fajardo Age Gdln ACOG Testing - [facility] Comment on above: Performed By: #### [id number] #### [facility] [address] [place] [address] Dr. Belkys Fajardo DIAGNOSIS: Comment Normal [facility] Comment on above: Result Comment: NEGA TIVE FOR INTRAEPITHELIAL LESION OR MALIGNANCY. Performed at: BA Performed By: #### [id number] #### [facility] [address] [place] [address] Dr. Belkys Fajardo Methodology: Comment Normal [facility] Comment on above: Result Comment: This liquid based ThinPrep(R) pap test was screened with the use of an image guided system. Performed at: WB Performed By: #### [id number] #### [facility] [address] [place] [address] Dr. Belkys Fajardo Note: Comment Normal [facility] Comment on above: Result Comment: The Pap smear is a screening test designed to aid in the detection of premalignant and malignant conditions of the uterine cervix. It is not a diagnostic procedure and should not be used as the sole means of detecting cervical cancer. Both false-positive and false-negative reports do occur. . Performed at: WB Performed By: #### [id number] #### [facility] [address] [place] [address] Dr. Belkys Fajardo Performed by: Comment Normal [facility] Comment on above: Result Comment: Vicky Avila, Financial Professional (ASCP) Performed at: BA Performed By: #### [id number] #### [facility] [address] [place] [address] Dr. Belkys Fajardo Reflex Criteria: Comment Normal [facility] Comment on above: Result Comment: The HPV DNA reflex criteria were not met with this specimen result therefore, no HPV testing was performed. . Performed at: BA Performed By: #### [id number] #### [facility] [address] [place] [address] Dr. Belkys Fajardo Specimen adequacy: Comment Normal [facility] Comment on above: Result Comment: Sati sfactory for evaluation. No endocervical component is identified. Performed at: BA Performed By: #### [id number] #### [facility] [address] [place] [address] Dr. Belkys Fajardo CBC AUTO DIFFon 08-22-2021 BASO # 0.0 103/ul Normal 0.0-0.1 [facility] Comment on above: Performed By: #### C BC #### [facility] [address] [address] [address] Belkys Fajardo Basophils/100 WBC (Bld) 0.2 % Normal 0.2-2.0 [facility] Comment on above: Performed By: #### C BC #### [facility] [address] [address] [address] Belkys Fajardo EO # 0.2 103/ul Normal 0.0-0.7 [facility] Comment on above: Performed By: #### C BC #### [facility] [address] [address] [address] Belkys Fajardo Eosinophils/100 WBC (Bld) 1.9 % Normal 0.9-7.0 [facility] Comment on above: Performed By: #### C BC #### [facility] [address] [place] [address] Dr. Belkys Fajardo Erythrocyte distribution width (RBC) [Ratio] 13.4 % Normal 11.0-15.0 [facility] Comment on above: Performed By: #### C BC #### [facility] [address] [place] [address] Dr. Belkys Faajrdo Hematocrit (Bld) [Volume fraction] 32.7 % Critically low 36.0-48.0 [facility] Comment on above: Performed By: #### C BC #### [facility] [address] [address] [address] Belkys Fajardo Hemoglobin (Bld) [Mass/Vol] 11.0 g/dL Critically low 12.0-16.0 [facility] Comment on above: Performed By: #### C BC #### [facility] [address] [address] [address] Belkys Fajardo IG # 0.05 10e3/ul Critically high 0.00-0.03 [facility] Comment on above: Performed By: #### C BC #### [facility] [address] [address] [address] Belkys Fajardo IG % 0.5 % Normal 0.0-0.5 [facility] Comment on above: Performed By: #### C BC #### [facility] [address] [place] [address] Dr. Belkys Fajardo LYMPH # 2.3 103/ul Normal 1.2-3.8 [facility] Comment on above: Performed By: #### C BC #### [facility] [address] [place] [address] Dr. Belkys Fajardo Lymphocytes/100 WBC (Bld) 22.4 % Normal 20.5-60.0 [facility] Comment on above: Performed By: #### C BC #### [facility] [address] [place] [address] Dr. Belkys Fajardo MANUAL DIFF REQ NO Normal [facility] Comment on above: Performed By: #### C BC #### [facility] [address] [place] [address] Dr. Belkys Fajardo MCH (RBC) [Entitic mass] 29.3 pg Normal 26.7-34.0 [facility] Comment on above: Performed By: #### C BC #### [facility] [address] [place] [address] Dr. Belkys Fajardo MCHC (RBC) [Mass/Vol] 33.6 g/dL Normal 29.9-35.2 [facility] Comment on above: Performed By: #### C BC #### [facility] [address] [place] [address] Dr. Belkys Fajardo MCV (RBC) [Entitic vol] 87.2 fL Normal 81.0-99.0 [facility] Comment on above: Performed By: #### C BC #### [facility] [address] [place] [address] Dr. Belkys Fajardo MONO # 0.6 103/ul Normal 0.3-0.8 [facility] Comment on above: Performed By: #### C BC #### [facility] [address] [place] [address] Dr. Belkys Fajardo Monocytes/100 WBC (Bld) 5.5 % Normal 1.7-12.0 [facility] Comment on above: Performed By: #### C BC #### [facility] [address] [place] [address] Dr. Belkys Fajardo NEUT # 7.1 103/ul Critically high 1.4-6.[address] [facility] Comment on above: Performed By: #### C BC #### [facility] [address] [address] [address] Belkys Fajardo Neutrophils/100 WBC (Bld) 69.5 % Normal 43.0-75.0 [facility] Comment on above: Performed By: #### C BC #### [facility] [address] [place] [address] Dr. Belkys Fajardo Platelet mean volume (Bld) [Entitic vol] 10.3 fL Normal 9.5-13.5 [facility] Comment on above: Performed By: #### C BC #### [facility] [address] [place] [address] Dr. Belkys Fajardo PLT 258 103/ul Normal 150-450 [facility] Comment on above: Performed By: #### C BC #### [facility] [address] [place] [address] Dr. Belkys Fajardo RBC 3.75 106/ul Critically low 4.20-5.[address] [facility] Comment on above: Performed By: #### C BC #### [facility] [address] [place] [address] Dr. Belkys Fajardo WBC 10.2 103/ul Normal 4.0-11.0 [facility] Comment on above: Performed By: #### C BC #### [facility] [address] [place] [address] Dr. Belkys Fajardo CTA CHEST WO W [...] ROSARIO HERNANDEZ Date: 2021-08-22 08:31 Normal [facility] Covid-19 PCR (CVDTBH)on 07-27 SARS-CoV-2 (COVID-19) RNA DEVIN+probe Ql (Unsp spec) Not detected Normal NOT DETECTED [facility] Comment on above: Result Comment: When [...] for this test is supported by the [employer] of [employer] and Human Service's declaration that [...] used). Performed By: #### C VDTBH #### [facility] [address] [place] [address] [address] [address] Belkys Fajardo PROF 14(COMP METB)on 022 Albumin [Mass/Vol] 3.0 g/dL Critically low 3.4-5.0 [facility] Comment on above: Performed By: #### A FPTET #### [facility] [address] [place] [address] Dr. Belkys Fajardo Albumin/Globulin [Mass ratio] 0.8 {ratio} Normal [facility] Comment on above: Performed By: #### A FPTET #### [facility] [address] [place] [address] Dr. Belkys Fajardo ALP [Catalytic activity/Vol] 52 U/L Normal 46-116 [facility] Comment on above: Performed By: #### A FPTET #### [facility] [address] [place] [address] Dr. Belkys Fajardo ALT [Catalytic activity/Vol] 32 U/L Normal 14-59 [facility] Comment on above: Performed By: #### A FPTET #### [facility] [address] [place] [address] Dr. Belkys Fajardo Anion gap [Moles/Vol] 12.8 mmol/L Normal [facility] Comment on above: Performed By: #### A FPTET #### [facility] [address] [place] [address] Dr. Belkys Fajardo AST [Catalytic activity/Vol] 17 U/L Normal 15-37 [facility] Comment on above: Performed By: #### A FPTET #### [facility] [address] [place] [address] Dr. Belkys Fajardo Bilirubin [Mass/Vol] 0.3 mg/dL Normal 0.2-1.0 [facility] Comment on above: Performed By: #### A FPTET #### [facility] [address] [place] [address] Dr. Belkys Fajardo Calcium [Mass/Vol] 8.5 mg/dL Normal 8.5-10.1 [facility] Comment on above: Performed By: #### A FPTET #### [facility] [address] [place] [address] Dr. Belkys Fajardo Chloride [Moles/Vol] 103 mmol/L Normal 98-107 [facility] Comment on above: Performed By: #### A FPTET #### [facility] [address] [place] [address] Dr. Belkys Fajardo CO2 [Moles/Vol] 24.7 mmol/L Normal 21.0-32.0 [facility] Comment on above: Performed By: #### A FPTET #### [facility] [address] [place] [address] Dr. Belkys Fajardo Creatinine [Mass/Vol] 0.46 mg/dL Critically low 0.55-1.02 [facility] Comment on above: Performed By: #### A FPTET #### [facility] [address] [place] [address] Dr. Belkys Fajardo EGFR-AF [place] >60 Normal >=60 [facility] Comment on above: Performed By: #### A FPTET #### [facility] [address] [place] [address] Dr. Belkys Fajardo EGFR-NON AF [place] >60 Normal >=60 [facility] Comment on above: Performed By: #### A FPTET #### [facility] [address] [place] [address] Dr. Belkys Fajardo Globulin (S) [Mass/Vol] 3.7 g/dL Normal [facility] Comment on above: Performed By: #### A FPTET #### [facility] [address] [place] [address] Dr. Belkys Fajardo Glucose [Mass/Vol] 84 mg/dL Normal 74-106 [facility] Comment on above: Performed By: #### A FPTET #### [facility] [address] [place] [address] Dr. Belkys Fajardo Potassium [Moles/Vol] 3.5 mmol/L Normal 3.5-5.1 [facility] Comment on above: Performed By: #### A FPTET #### [facility] [address] [place] [address] Dr. Belkys Fajardo Protein [Mass/Vol] 6.7 g/dL Normal 6.4-8.2 [facility] Comment on above: Performed By: #### A FPTET #### [facility] [address] [place] [address] Dr. Belkys Fajardo Sodium [Moles/Vol] 137 mmol/L Normal 136-145 [facility] Comment on above: Performed By: #### A FPTET #### [facility] [address] [place] [address] Dr. Belkys Fajardo Urea nitrogen [Mass/Vol] 7.0 mg/dL Normal 7.0-18.0 [facility] Comment on above: Performed By: #### A FPTET #### [facility] [address] [place] [address] Dr. Belkys Fajardo Urea nitrogen/Creatinine [Mass ratio] 15.2 mg/mg Normal [facility] Comment on above: Performed By: #### A FPTET #### [facility] [address] [place] [address] Dr. Belkys Fajardo TROPONIN, HIGH SENSITIVITYon 08-22-2021 HSTROP <4.0 Normal 4.0-51.3 [facility] Comment on above: Result Comment: CUT- OFF POINTS HAVE BEEN ESTABLISHED BASED ON THE FOURTH UNIVERSAL DEFINITIONS OF MYOCARDIAL INFARCTION. THE UPPER REFERENCE LIMIT (URL) OF TROPONIN, DEFINED THE 99TH PERCENTILE OF cTnI DISTRIBUTION IN A REFERENCE POPULATION, HAS BEEN CONFIRMED THE DECISION THRESHOLD FOR [place] DIAGNOSIS. Performed By: #### A FPTET #### [facility] [address] [place] [address] Dr. Belkys Fajardo CHLAMYDIA/GONOCOCCUS DEVIN (SW AB/URINE/PAPon 08-21-2021 Chlamydia trachomatis, DEVIN Negative Normal Negative [facility] Comment on above: Performed By: #### C T/NGNA #### [facility] [address] [place] [address] Dr. Belkys Fajardo Neisseria gonorrhoeae, DEVIN Negative Normal Negative [facility] Comment on above: Performed By: #### C T/NGNA #### [facility] [address] [place] [address] Dr. Belkys Fajardo VAGINITIS/VAGINOSIS DNA PROB Gab 08-20-2021 Lani species Negative Normal Negative [facility] Comment on above: Performed By: #### A FPTET #### [facility] [address] [place] [address] Dr. Belkys Fajardo Gardnerella vaginalis Negative Normal Negative [facility] Comment on above: Performed By: #### A FPTET #### [facility] [address] [address] [address] Belkys Fajardo Trichomonas vaginalis Negative Normal Negative [facility] Comment on above: Performed By: #### A FPTET #### [facility] [address] [address] [address] Belkys Fajardo Vital Signs Date Time Vital Sign Value Performing Clinician Facility 07-28-2022 10:15-0400 Body height 170.18 cm Nick Ball Other [facility] Other 07-28-2022 10:15-0400 Body mass index (BMI) [Ratio] 27.81 kg/m2 Nick Ball Other [facility] Other 07-28-2022 10:15-0400 Body weight 80.56 kg Nick Ball Other [facility] Other 07-28-2022 10:15-0400 Diastolic blood pressure 75 mm[Hg] Nick Ball Other [facility] Other 07-28-2022 10:15-0400 Systolic blood pressure 112 mm[Hg] Nick Ball Other [facility] Other 06-04-2022 17:00-0500 Body height 170.18 cm Cristal Guidry Other [facility] Other 06-04-2022 17:00-0500 Body mass index (BMI) [Ratio] 28.19 kg/m2 Cristal Guidry Other [facility] Other 06-04-2022 17:00-0500 Body temperature 97.4 [degF] Cristal Guidry Other [facility] Other 06-04-2022 17:00-0500 Body weight 81.65 kg Cristal Guidry Other [facility] Other 06-04-2022 17:00-0500 Respiratory rate 18 /min Cristal Guidry Other [facility] Other 06-04-2022 17:00-0500 SaO2% (BldA) [Mass fraction] 98 % Cristal Guidry Other [facility] Other 09-06-2021 02:05-0400 Body weight 77.[address] CHEYENNE MEADE . [facility] Comment on above: Performed By: #### AFPTET #### [facility] [address] [place] [address] Dr. Belkys Fajardo Encounters Encounter Date Encounter Type Care Provider Facility Start: 10-26-2023 End: 10-26-2023 ambulatory VALERIE DOROTEO Not Available Start: 10-18-2023 End: 10-18-2023 ambulatory VALERIE SADLER Not Available Start: 10-05-2023 End: 10-05-2023 ambulatory CHEYENNE WOLF Not Available Start: 09-21-2023 End: 09-21-2023 ambulatory CHEYENNE WOLF Not Available Start: 09-20-2023 End: 09-21-2023 Emergency department patient visit [facility] Start: 09-07-2023 End: 09-07-2023 ambulatory CHEYENNE WOLF Not Available Start: 08-24-2023 End: 08-24-2023 ambulatory CHEYENNE WOLF Not Available Start: 08-10-2023 End: 08-10-2023 ambulatory CHEYENNE WOLF Not Available Start: 07-28-2023 End: 07-30-2023 ambulatory YOGI MARQUEZ [facility] Start: 07-26-2023 End: 07-26-2023 Emergency department patient visit [facility] Start: 07-25-2023 End: 07-27-2023 [facility] Start: 07-13-2023 End: 07-13-2023 ambulatory CHEYENNE WOLF Not Available Start: 06-15-2023 End: 06-15-2023 ambulatory CHEYENNE WOLF Not Available Start: 05-16-2023 End: 05-16-2023 ambulatory CHEYENNE WOLF Not Available Start: 04-08-2023 End: 04-08-2023 ambulatory CHEYENNE WOLF Not Available Start: 07-28-2022 End: 07-28-2022 ambulatory Nick Leonardo Other [facility] Other Start: 07-28-2022 Office outpatient vi sit 15 minutes Nick Leonardo [facility] Start: 07-28-2022 Telephone encounter Nick Leonardo [facility] Start: 06-04-2022 End: 06-04-2022 ambulatory Cristal Guidry Other [facility] Other Start: 06-04-2022 Office outpatient ne w [...] Facility:[facility] Start: 10-14-2021 End: 10-15-[address] HCEYENNE MEADE . Facility:[facility] Start: 09-16-2021 End: 09-17-[address] CHEYENNE MEADE . Facility:[facility] Start: 09-04-2021 End: 09-05-[address] CHEYENNE MEADE . Facility:[facility] Start: 08-22-2021 End: 08-22-[address] CAMILO GREENE Facility:[facility] Start: 08-18-2021 End: 08-18-[address] CHEYENNE MEADE . Facility:[facility] Start: 04-10-2021 End: 04-10-2021 Subsequent hospital visit by physician [facility] [employer] [facility] EKG Comment on above: Palpitations; Post-COVID chronic [...] 04/15/2021 Office Visit Cardiology Yogi Marquez MD [address] [place] [address] [facility] Start: 11-26-2020 Influenza vaccination Flu vaccine (# 1) [facility] Start: 10-08-2020 DTaP/Tdap/Td vaccine (7 - Td or Tdap) DTaP/Tdap/Td vaccine (7 - Td or Tdap) [facility] Start: 2013 Screening for malign ant neoplasm of cervix Pap smear [facility] Start: 10-30-2007 HIV screening HIV screen [facility] Start: 2004 Depression Screen Depression Screen [facility] Start: 1997 COVID-19 Vaccine (1) COVID-19 Vaccin e (1) [facility] Start: 1993 Varicella vaccine (1 of 2 - 2-dose childhood series) Varicella vaccine (1 of 2 - 2-dose childhood series) [facility] Start: 1992 Hepatitis C screening Hepatitis C [facility] Payers Date Payer Category Payer Unknown [id number]. [id number] 1992 Unknown [id number] 2.16.84 0.1.314856.3.579.2.593 1992 Unknown [id number] 2.16.84 0.1.831410.3.579.2.593 1992 Unknown [id number] 2.16.84 0.1.034000.3.579.2.593 1992 Unknown [id number] 2.16.84 0.1.183969.3.579.2.593 1992 Unknown [id number] 2.16.84 0.1.993493.3.579.2.593 1992 Unknown [id number] 2.16.84 0.1.735235.3.579.2.593 1992 Unknown [id number] 2.16.84 0.1.411465.3.579.2.593 1992 Unknown [id number] 2.16.84 0.1.953823.3.579.2.593 1992 Unknown [id number] 2.16.84 0.1.646783.3.579.2.593 1992 Unknown [id number] 2.16.84 0.1.003194.3.579.2.593 1992 Unknown [id number] 2.16.84 0.1.683877.3.579.2.593 1992 Unknown [id number] 2.16.84 0.1.414898.3.579.2.593 1992 Unknown [id number] 2.16.84 0.1.288580.3.579.2.593 1992 Unknown [id number] 2.16.8 40.1.401569.3.579.2.173 1992 Unknown [id number] 2.16.8 40.1.795558.3.579.2.173 1992 Unknown [id number] 2.16.8 40.1.255363.3.579.2.173 1992 Unknown [id number] 2.16.8 40.1.485683.3.579.2.173 1992 Unknown [id number] 2.16.84 0.1.565064.3.579.2.1259 1992 Unknown [id number] 2.16.84 0.1.346626.3.579.2.9 1992 Unknown [id number] 2.16.84 0.1.103493.3.579.2.1258 1992 Unknown [id number] 2.16.84 0.1.005559.3.579.2.9 1992 Unknown [id number] 2.16.84 0.1.434567.3.579.2.9 1992 Unknown [id number] 2.16.84 0.1.884969.3.579.2.9 1992 Unknown [id number] 2.16.84 0.1.818138.3.579.2.9 1992 Unknown [id number] 2.16.84 [id number] 1992 Unknown [id number] 2.16.84 [id number] 1992 Unknown [id number] 2.16.84 [id number] 1992 Unknown [id number] 2.16.84 [id number] 1959 Unknown [id number] Social History Date Type Detail Facility Start: 08-29-2014 Tobacco smoking status NHIS Never smoked tobacco [facility] Phone: Start: 08-29-2014 Tobacco use and exposure Smokeless tobacco non-user [facility] Phone: Start: 03-09-2021 Alcohol intake Current drinke r of alcohol (finding) [facility] Phone: Start: 03-09-2021 Alcohol intake [facility] [employer] [facility] Phone: Start: 08-29-2014 History SDOH Alcohol Comment occ. [facility] [facility] Phone: Start: 1990 [facility] Sex Assigned At Sex Assigned At Bir th [facility] Other Evaluation note 07-28-2022 Note Date & [...] Monitor for now may not need treatment [facility] Other Evaluation note 06-04-2022 Note Date & [...] other viral communicable diseases (ICD-10 - Z20.828) [facility] Other Clinical Note 01-23-2022 Note Date & Type Note Facility 01-23-2022 Note OPERATIVE NOTE OPERATION DATE: 02/18/2022 PROCEDURE: Repair of fourth degree perineal laceration. PREOPERATIVE DIAGNOSIS: Fourth degree perineal laceration. POSTOPERATIVE DIAGNOSIS: Fourth degree perineal laceration. ANESTHESIA: Epidural SURGEON: Cheyenne Meade D.O. HELP DESK AGENT: BOBO Cole URINE OUTPUT: Yellow and clear. [...] taken to recovery in stable condition. [facility] Clinical Note 01-23-2022 Note Date & Type Note Facility 01-23-2022 Note OP Note OPERATION DATE: 01/23/2022 PROCEDURE: Repair of fourth degree perineal laceration. PREOPERATIVE DIAGNOSIS: Fourth degree perineal laceration. POSTOPERATIVE DIAGNOSIS: Fourth degree perineal laceration. ANESTHESIA: Epidural SURGEON: Cheyenne Meade D.O. HELP DESK AGENT: BBOO Cole URINE OUTPUT: Yellow and clear. SPECIMEN: [...] taken to recovery in stable condition. [facility] Clinical Note 01-23-2022 Note Date & Type Note Facility 01-23-2022 Note OPERATIVE NOTE OPERATION DATE: 02/10/2022 PROCEDURE: Repair of fourth degree laceration. PREOPERATIVE DIAGNOSIS: Fourth degree laceration. POSTOPERATIVE DIAGNOSIS: Fourth degree laceration. ANESTHESIA: General. SURGEON: Cheyenne Meade D.O. HELP DESK AGENT: BOBO URINE OUTPUT: Yellow and clear. BLOOD [...] sheath and this was done in a [id number] fashion. This was performed using 3-0 Vicryl. [...] The patient tolerated this procedure well. [facility] Clinical Note 08-22-2021 Note Date & [...] by: DERIC VO Date: 2021-08-22 07:30 [facility] Evaluation note Note Date & Type Note Facility Evaluation note Diagnosis Palpitations Post-COVID chronic palpitations Shortness of breath Lightheaded Dizziness and giddiness Dizziness Dizziness and giddiness documented in this encounter [facility] Phone: Evaluation note Note Date & Type Note Facility Evaluation note No Information [employer] Other History general Narrative - Reported Note Date & Type Note Facility History general Narrative - Reported Type Medical History POTS Medical History sinus tachycardia Surgical History 4th degree vaginal tear after g iving 2021 [facility] Other History general Narrative - Reported Note Date & Type Note Facility History general Narrative - Reported Type Medical History POTS Medical History sinus tachycardia Medical History Anxiety, generalized Surgical History 4th degree vaginal t ear after giving 2021 Surgical History MASTOPEXY OF BOTH BR EASTS WITH INSERTION OF SALINE IMPLANTS Hospitalization History SEE SURGICAL HX [facility] Other Reason for Referral Specialty Diagnoses / Procedures Referred By Willy smith Referred To Contact Cardiology Diagnoses Palpitations Post-COVID chronic palpitations Shortness of breath Lightheaded Dizziness Procedures Holter Monitor 24 Hour Yogi Marquez MD [address] [place] [id number] Referral ID Status Reason Start Date Expiration Date Visits Re quested Visits Authorized [id number] Open 03/09/2021 03/09/2022 1 1 Advance Directives No Advanced Directives Records FoundDocuments on File Type Date Recorded Patient Collection Administrator Expl anation ACP-Advance Directive ACP-Power of Human Services Manager Summary Purpose Family History No Family History Records FoundNo Family History Records FoundNo Family History Records Found Additional Source Comments Reason for Visit (unrecogniz ed section and content) Specialty Diagnoses / Procedures Referred By Willy smith Referred To Contact Cardiology Diagnoses Palpitations Post-COVID chronic palpitations Shortness of breath Lightheaded Dizziness Procedures Holter Monitor 24 Hour Yogi Marquez MD [address] [place] [address] Referral ID Status Reason Start Date Expiration Date Visits Re quested Visits Authorized [id number] Open 03/09/2021 03/09/2022 1 1 Care Teams (unrecognized sec tion and content) Staff Anesthetist Relationship Specialty Start Date End Date JordenNick, [address] [place] [address] PCP - General Internal Medicine 03/09/21 INFORMATION SOURCE (unrecogn ized section and content) DATE CREATED AUTHOR 07/01/2022 [facility] DATE CREATED AUTHOR AUTHOR'S ORGANIZ ATION 09/22/2023 [facility] DATE CREATED AUTHOR AUTHOR'S ORGANIZ ATION [address] [facility] dicme Specialists [facility] FOR RECORDS PERTAINING TO PATIENTS WHO [...] BE BASED ON THE PRIMARY CLINICAL RECORDS. [facility] [employer] [facility]. provides no warranty or guarantee of the accuracy or completeness of information in this document.
[2023-10-29 08:30] VITALS: BP 112/70; PULSE 101
== END 2023-10-29 08:59 | disposition home or self-care (01) ==
LOC: FBCO 08:05 → FBC 08:25
PROVIDERS: PCP Family Medicine; Visit Provider Obstetrics & Gynecology
DX: O26.893 Other specified pregnancy related conditions, third trimester (principal)
CPT/HCPCS: 59025

== ENCOUNTER 2023-10-30 16:12 | Observation (INO) | payer OTHER, SELFPAY ==
--- OUTSIDE RECORDS SUMMARY | 2023-10-30 16:17 | XMS_ITS | CCD ---
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 Basophil 0.05 k/uL Normal 0.00-0.20 [facility] Comment on above: Performed By: #### C DP, PT, MG #### [address] [place] [id number] [employer] Services Professional: Rosario Linares MD Abs.Imm.Granulocyte 0.20 k/uL Normal 0.00-0.30 [facility] Comment on above: Performed By: #### C DP, PT, MG #### [address] [place] [address] [employer] Services Professional: Rosario Linares MD Abs.Neutrophil (Seg) 9.90 k/uL High 1.50-8.10 [facility] Comment on above: Performed By: #### C DP, PT, MG #### [address] [place] [address] [employer] Services Professional: Rosario Linares MD Basophils/100 WBC (Bld) 0 % Normal 0-2 [facility] Comment on above: Performed By: #### C DP, PT, MG #### [address] [place] [address] [employer] Services Professional: Rosario Linares MD Eosinophils (Bld) [#/Vol] 0.15 10*3/uL Normal 0.00-0.44 [facility] Comment on above: Performed By: #### C DP, PT, MG #### [address] [place] [phone] [employer] Professional: Rosario Linares MD Eosinophils/100 WBC (Bld) 1 % Normal 1-4 [facility] Comment on above: Performed By: #### C DP, PT, MG #### [address] [place] [phone] [employer] Professional: Rosario Linares MD Erythrocyte distribution width (RBC) [Ratio] 12.8 % Normal 11.8-14.4 [facility] Comment on above: Performed By: #### C DP, PT, MG #### [facility] [address] [place] [address] [employer] Professional: Rosario Linares MD Hematocrit (Bld) [Volume fraction] 32.7 % Low 36.3-47.1 [facility] Comment on above: Performed By: #### C DP, PT, MG #### [facility] [address] [place] [address] [employer] Services Professional: Rosario Linares MD Hemoglobin (Bld) [Mass/Vol] 11.3 g/dL Low 11.9-15.1 [facility] Comment on above: Performed By: #### C DP, PT, MG #### [facility] [address] [place] [address] Dr. [place], [facility]83 [employer] Professional: Rosario Linares MD Immature granulocytes/100 WBC (Bld) 2 % High 0 [facility] Comment on above: Performed By: #### C DP, PT, MG #### [address] [place], [facility]83 [employer] Professional: Rosario Linares MD Lymphocytes (Bld) [#/Vol] 2.23 10*3/uL Normal 1.10-3.70 [facility] Comment on above: Performed By: #### C DP, PT, MG #### [facility] [address] [place], [place] [phone] [employer] Professional: Rosario Linares MD Lymphocytes/100 WBC (Bld) 17 % Low 24-43 [facility] Comment on above: Performed By: #### C DP, PT, MG #### [facility] [address] [place] [address] [employer] Services Professional: Rosario Linares MD MCH (RBC) [Entitic mass] 29.7 pg Normal 25.2-33.5 [facility] Comment on above: Performed By: #### C DP, PT, MG #### [address] [place], [place] [phone] [employer] Professional: Rosario Linares MD MCHC (RBC) [Mass/Vol] 34.6 g/dL Normal 28.4-34.8 [facility] Comment on above: Performed By: #### C DP, PT, MG #### [address] [place] [address] [employer] Professional: Rosario Linares MD MCV (RBC) [Entitic vol] 85.8 fL Normal 82.6-102.9 [facility] Comment on above: Performed By: #### C DP, PT, MG #### [address] [place], [facility]83 [employer] Professional: Rosario Linares MD Monocytes (Bld) [#/Vol] 0.72 10*3/uL Normal 0.10-1.20 [facility] Comment on above: Performed By: #### C DP, PT, MG #### [address] [place], [place] [phone] [employer] Professional: Rosario Linares MD Monocytes/100 WBC (Bld) 5 % Normal 3-12 [facility] Comment on above: Performed By: #### C DP, PT, MG #### [address] [place], [place] [phone] [employer] Services Professional: Rosario Linares MD Neutrophil (Seg) 75 % High 36-65 [facility] Comment on above: Performed By: #### C DP, PT, MG #### [address] [place] [address] [employer] Services Professional: Rosario Linares MD NRBC Automated 0.0 per 100 WBC Normal 0.0 [facility] Comment on above: Performed By: #### C DP, PT, MG #### [facility] [address] [place], [place] [phone] [employer] Services Professional: Rosario Linares MD Platelet mean volume (Bld) [Entitic vol] 10.2 fL Normal 8.1-13.5 [facility] Comment on above: Performed By: #### C DP, PT, MG #### [facility] [address] [place], [place] [phone] [employer] Services Professional: Rosario Linares MD Platelets (Bld) [#/Vol] 293 10*3/uL Normal 138-453 [facility] Comment on above: Performed By: #### C DP, PT, MG #### [facility] [address] [place], [place] [phone] [employer] Services Professional: Rosario Linares MD RBC (Bld) [#/Vol] 3.81 10*6/uL Low 3.95-5.11 [facility] Comment on above: Performed By: #### C DP, PT, MG #### [address] [place], [place] [phone] [employer] Professional: Rosario Linares MD WBC (Bld) [#/Vol] 13.3 10*3/uL High 3.5-11.3 [facility] Comment on above: Performed By: #### C DP, PT, MG #### [facility] [address] [place] [address] Dr. [place], [facility]83 [employer] Services Professional: Rosario Linares MD Comp Metabolic Profon 2023 Albumin [Mass/Vol] 3.5 g/dL Normal 3.5-5.2 [facility] Comment on above: Performed By: #### C P #### [facility] [address] [place], [place] [phone] [employer] Services Professional: Rosario Linares MD Albumin/Glob Ratio 1.1 Normal 1.0-2.5 [facility] Comment on above: Performed By: #### C P #### [facility] [address] [place] [address] [employer] Services Professional: Rosario Linares MD Alkaline Phos 103 U/L Normal 35-104 [facility] Comment on above: Performed By: #### C P #### [facility] [address] [place], [place] [phone] [employer] Services Professional: Rosario Linares MD ALT [Catalytic activity/Vol] 16 U/L Normal 5-33 [facility] Comment on above: Performed By: #### C P #### [facility] [address] [place], [place] 9[address]3983 [employer] Professional: Rosario Linares MD Anion gap [Moles/Vol] 10 mmol/L Normal 9-17 [facility] Comment on above: Performed By: #### C P #### [facility] [address] [place], [place] 0382683 [employer] Services Professional: Rosario Linares MD AST [Catalytic activity/Vol] 16 U/L Normal <32 [facility] Comment on above: Performed By: #### C P #### [facility] [address] [place], [place] 6803983 [employer] Services Professional: Rosario Linares MD Bilirubin [Mass/Vol] 0.2 mg/dL Low 0.3-1.2 [facility] Comment on above: Performed By: #### C P #### [facility] [address] [place], [place] [phone] [employer] Services Professional: Rosario Linares MD BUN/CRE Ratio 18 Normal 9-20 [facility] Comment on above: Performed By: #### C P #### [facility] [address] [place], [place] 9063083 [employer] Professional: Rosario Linares MD Calcium [Mass/Vol] 8.4 mg/dL Low 8.6-10.4 [facility] Comment on above: Performed By: #### C P #### [facility] [address] [place] [address] [employer] Services Professional: Rosario Linares MD Chloride [Moles/Vol] 101 mmol/L Normal 98-107 [facility] Comment on above: Performed By: #### C P #### [facility] [address] [place] [address] Government Services Professional: Rosario Linares MD CO2 [Moles/Vol] 22 mmol/L Normal 20-31 [facility] Comment on above: Performed By: #### C P #### [facility] [address] [place] [address] Government Services Professional: Rosario Linares MD Creatinine [Mass/Vol] 0.4 mg/dL Low 0.5-0.9 [facility] Comment on above: Performed By: #### C P #### [facility] [address] [place] [address] [employer] Services Professional: Rosario Linares MD GFR/1.73 sq M.predicted among non-blacks MDRD (S/P/Bld) [Vol rate/Area] mL/min/{1.73_m2} Normal >60 [facility] Comment on above: Result Comment: These [...] secretion. Performed By: #### C P #### [facility] [address] [place] [address] [employer] Services Professional: Rosario Linares MD Glucose [Mass/Vol] 89 mg/dL Normal 70-99 [facility] Comment on above: Performed By: #### C P #### [facility] [address] [place] [address] [employer] Services Professional: Rosario Linares MD Potassium [Moles/Vol] 3.7 mmol/L Normal 3.7-5.3 [facility] Comment on above: Performed By: #### C P #### [facility] [address] [place] [address] [employer] Services Professional: Rosario Linares MD Protein [Mass/Vol] 6.7 g/dL Normal 6.4-8.3 [facility] Comment on above: Performed By: #### C P #### [facility] [address] [place] [address] [employer] Services Professional: Rosario Linares MD Sodium [Moles/Vol] 133 mmol/L Low 135-144 [facility] Comment on above: Performed By: #### C P #### [facility] [address] [place] [address] [employer] Services Professional: Rosario Linares MD Urea nitrogen [Mass/Vol] 7 mg/dL Normal 6-20 [facility] Comment on above: Performed By: #### C P #### [address] [place] [address] [employer] Services Professional: Rosario Linares MD D-Dimer Teston 09-20-2023 D-Dimer Test 1.32 ug/mL FEU High 0.00-0.59 [facility] Comment on above: Result Comment: When [...] DVT. Performed By: #### D PATI #### [address] [place] [address] [employer] Services Professional: Rosario Linares MD Magnesiumon 09-20-2023 Magnesium [Mass/Vol] 1.8 mg/dL Normal 1.6-2.6 [facility] Comment on above: Performed By: #### C DP, PT, MG #### [address] [place], [facility]83 [employer] Services Professional: Rosario Linares MD PTon 09-20-2023 INR Coag (PPP) [Relative time] 1.0 {INR} Normal [facility] Comment on above: Result Comment: Therapeutic Range: Moderate Anticoagulant Intensity: INR = 2.0-3.0 High Anticoagulant Intensity: INR = 2.5-3.5 Performed By: #### C DP, PT, MG #### [address] [place] [address] [employer] Services Professional: Rosario Linares MD PT Coag (PPP) [Time] 12.8 s Normal 11.7-14.1 [facility] Comment on above: Performed By: #### C DP, PT, MG #### [address] [place] [address] [employer] Services Professional: Rosario Linares MD Thyroid Stim. Horm.on 2023 Thyroid Stim. Horm. 2.11 uIU/mL Normal 0.30-5.00 [facility] Comment on above: Performed By: #### T SH #### [facility] [address] [place], [place] [phone] [employer] Services Professional: Rosario Linares MD Troponinon 09-20-2023 Troponin, High Sens <6 Normal 0-14 [facility] Comment on above: Result Comment: High Sensitivity Troponin values cannot be compared with other Troponin methodologies. Performed By: #### T ROPI #### [facility] [address] [place], [place] [phone] [employer] Services Professional: Rosario Linares MD Basic Metabolic Profon 07-25 Anion gap [Moles/Vol] 13 mmol/L Normal 9-17 [facility] Comment on above: Performed By: #### C DP, BMP #### [facility] [address] [place], [place] [phone] [employer] Services Professional: Rosario Linares MD BUN/CRE Ratio 18 Normal 9-20 [facility] Comment on above: Performed By: #### C DP, BMP #### [facility] [address] [place], [place] [address]83 [employer] Services Professional: Rosario Linares MD Calcium [Mass/Vol] 8.7 mg/dL Normal 8.6-10.4 [facility] Comment on above: Performed By: #### C DP, BMP #### [facility] [address] [place], [place] [phone] [employer] Services Professional: Rosario Linares MD Chloride [Moles/Vol] 100 mmol/L Normal 98-107 [facility] Comment on above: Performed By: #### C DP, BMP #### [facility] [address] [place] [address] [employer] Services Professional: Rosario Linares MD CO2 [Moles/Vol] 21 mmol/L Normal 20-31 [facility] Comment on above: Performed By: #### C DP, BMP #### [facility] [address] [place] [address] [employer] Services Professional: Rosario Linares MD Creatinine [Mass/Vol] 0.4 mg/dL Low 0.5-0.9 [facility] Comment on above: Performed By: #### C DP, BMP #### [facility] [address] [place], [place] [phone] [employer] Services Professional: Rosario Linares MD GFR/1.73 sq M.predicted among non-blacks MDRD (S/P/Bld) [Vol rate/Area] mL/min/{1.73_m2} Normal >60 [facility] Comment on above: Result Comment: These [...] Performed By: #### C DP, BMP #### [facility] [address] [place] [address] [place] [address] [employer] Professional: Rosario Linares MD Glucose [Mass/Vol] 115 mg/dL High 70-99 [facility] Comment on above: Performed By: #### C DP, BMP #### [facility] [address] [place] [address] [employer] Services Professional: Rosario Linares MD Potassium [Moles/Vol] 3.4 mmol/L Low 3.7-5.3 [facility] Comment on above: Performed By: #### C DP, BMP #### [facility] [address] [place] [address] [employer] Services Professional: Rosario Linares MD Sodium [Moles/Vol] 134 mmol/L Low 135-144 [facility] Comment on above: Performed By: #### C DP, BMP #### [facility] [address] [place], [place] [address] [employer] Services Professional: Rosario Linares MD Urea nitrogen [Mass/Vol] 7 mg/dL Normal 6-20 [facility] Comment on above: Performed By: #### C DP, BMP #### [address] [place], [facility]83 [employer] Services Professional: Rosario Linares MD CBC with Diffon 07-26-2023 Abs. Basophil 0.04 k/uL Normal 0.00-0.20 [facility] Comment on above: Performed By: #### C DP, BMP #### [address] [place], [place] [address] [employer] Services Professional: Rosario Linares MD Abs.Imm.Granulocyte 0.07 k/uL Normal 0.00-0.30 [facility] Comment on above: Performed By: #### C DP, BMP #### [address] [place], [place] [address] [employer] Services Professional: Rosario Linares MD Abs.Neutrophil (Seg) 8.51 k/uL High 1.50-8.10 [facility] Comment on above: Performed By: #### C DP, BMP #### [address] [place], [facility]83 [employer] Services Professional: Rosario Linares MD Basophils/100 WBC (Bld) 0 % Normal 0-2 [facility] Comment on above: Performed By: #### C DP, BMP #### [facility] [address] [place] [address] Dr. [place], [facility]83 [employer] Services Professional: Rosario Linares MD Eosinophils (Bld) [#/Vol] 0.11 10*3/uL Normal 0.00-0.44 [facility] Comment on above: Performed By: #### C DP, BMP #### [address] [place], [facility]83 [employer] Services Professional: Rosario Linares MD Eosinophils/100 WBC (Bld) 1 % Normal 1-4 [facility] Comment on above: Performed By: #### C DP, BMP #### [facility] [address] [place] [address] [employer] Services Professional: Rosario Linares MD Erythrocyte distribution width (RBC) [Ratio] 13.0 % Normal 11.8-14.4 [facility] Comment on above: Performed By: #### C DP, BMP #### [facility] [address] [place] [phone] [employer] Professional: Rosario Linares MD Hematocrit (Bld) [Volume fraction] 36.2 % Low 36.3-47.1 [facility] Comment on above: Performed By: #### C DP, BMP #### [address] [place] [phone] [employer] Services Professional: Rosario Linares MD Hemoglobin (Bld) [Mass/Vol] 12.2 g/dL Normal 11.9-15.1 [facility] Comment on above: Performed By: #### C DP, BMP #### [address] [place] [address] [employer] Services Professional: Rosario Linares MD Immature granulocytes/100 WBC (Bld) 1 % High 0 [facility] Comment on above: Performed By: #### C DP, BMP #### [address] [place], [facility]83 Government Services Professional: Rosario Linares MD Lymphocytes (Bld) [#/Vol] 2.63 10*3/uL Normal 1.10-3.70 [facility] Comment on above: Performed By: #### C DP, BMP #### [address] [place], [place] 2352383 [employer] Services Professional: Rosario Linares MD Lymphocytes/100 WBC (Bld) 22 % Low 24-43 [facility] Comment on above: Performed By: #### C DP, BMP #### [facility] [address] [place] [address] [employer] Services Professional: Rosario Linares MD MCH (RBC) [Entitic mass] 29.8 pg Normal 25.2-33.5 [facility] Comment on above: Performed By: #### C DP, BMP #### [address] [place], [facility]83 [employer] Services Professional: Rosario Linares MD MCHC (RBC) [Mass/Vol] 33.7 g/dL Normal 28.4-34.8 [facility] Comment on above: Performed By: #### C DP, BMP #### [address] [place] [phone] [employer] Services Professional: Rosario Linares MD MCV (RBC) [Entitic vol] 88.5 fL Normal 82.6-102.9 [facility] Comment on above: Performed By: #### C DP, BMP #### [address] [place] [phone] [employer] Services Professional: Rosario Linares MD Monocytes (Bld) [#/Vol] 0.44 10*3/uL Normal 0.10-1.20 [facility] Comment on above: Performed By: #### C DP, BMP #### [address] [place], [place] [address] [employer] Services Professional: Rosario Linares MD Monocytes/100 WBC (Bld) 4 % Normal 3-12 [facility] Comment on above: Performed By: #### C DP, BMP #### [address] [place], [facility]83 [employer] Services Professional: Rosario Linares MD Neutrophil (Seg) 72 % High 36-65 [facility] Comment on above: Performed By: #### C DP, BMP #### [address] [place], [place] 3707383 [employer] Services Professional: Rosario Linares MD NRBC Automated 0.0 per 100 WBC Normal 0.0 [facility] Comment on above: Performed By: #### C DP, BMP #### [facility] [address] [place], [place] 9[address]83 [employer] Services Professional: Rosario Linares MD Platelet mean volume (Bld) [Entitic vol] 10.3 fL Normal 8.1-13.5 [facility] Comment on above: Performed By: #### C DP, BMP #### [facility] [address] [place] [address] [employer] Services Professional: Rosario Linares MD Platelets (Bld) [#/Vol] 289 10*3/uL Normal 138-453 [facility] Comment on above: Performed By: #### C DP, BMP #### [facility] [address] [place] [address] [employer] Services Professional: Rosario Linares MD RBC (Bld) [#/Vol] 4.09 10*6/uL Normal 3.95-5.11 [facility] Comment on above: Performed By: #### C DP, BMP #### [address] [place], [place] [address] [employer] Services Professional: Rosario Linares MD WBC (Bld) [#/Vol] 11.8 10*3/uL High 3.5-11.3 [facility] Comment on above: Performed By: #### C DP, BMP #### [facility] [address] [place] [address] [employer] Services Professional: Rosario Linares MD Troponinon 07-26-2023 Troponin, High Sens 6 ng/L Normal 0-14 [facility] Comment on above: Result Comment: High Sensitivity Troponin values cannot be compared with other Troponin methodologies. Performed By: #### T ROPI #### [facility] [address] [place], [place] 5661283 [employer] Services Professional: Rosario Linares MD UA w/Reflex Cultureon 2023 Bilirubin, SemiQt,Ur Negative Normal NEG [facility] Comment on above: Performed By: #### C DP, BMP #### [facility] [address] [place], [place] 8491383 [employer] Services Professional: Rosario Linares MD Blood, Urine Negative Normal NEG [facility] Comment on above: Performed By: #### C DP, BMP #### [facility] [address] [place], [place] [phone] [employer] Services Professional: Rosario Linares MD Clarity (U) Clear Normal CLEAR [facility] Comment on above: Performed By: #### C DP, BMP #### [facility] [address] [place], [place] 4972883 [employer] Services Professional: Rosario Linares MD Color (U) Yellow Normal YEL [facility] Comment on above: Performed By: #### C DP, BMP #### [facility] [address] [place], [place] [phone] [employer] Services Professional: Rosario Linares MD Glucose Ql (U) Negative Normal NEG [facility] Comment on above: Performed By: #### C DP, BMP #### [facility] [address] [place], [place] 1452883 [employer] Services Professional: Rosario Linares MD Ketones Ql (U) Negative Normal NEG [facility] Comment on above: Performed By: #### C DP, BMP #### [facility] [address] [place], [place] [phone] [employer] Services Professional: Rosario Linares MD Leukocyte esterase Test strip Ql (U) SMALL Abnormal NEG [facility] Comment on above: Performed By: #### C DP, BMP #### [facility] [address] [place], [place] [phone] [employer] Services Professional: Rosario Linares MD Nitrite,Ur Negative Normal NEG [facility] Comment on above: Performed By: #### C DP, BMP #### [facility] [address] [place], [place] 1435383 [employer] Services Professional: Rosario Linares MD PH,Ur 8.0 Normal 5.0-9.0 [facility] Comment on above: Performed By: #### C DP, BMP #### [facility] [address] [place], [facility]83 [employer] Services Professional: Rosario Linares MD Protein Ql (U) Negative Normal NEG [facility] Comment on above: Performed By: #### C DP, BMP #### [address] [place], [facility] [employer] Services Professional: Rosario Linares MD Spec. [place],Ur 1.015 Normal 1.010-1.020 [facility] Comment on above: Performed By: #### C DP, BMP #### [facility] [address] [place] [address] [place] [address] [employer] Services Professional: Rosario Linares MD Urobilinogen,Ur Normal Normal 0.0-1.0 [facility] Comment on above: Performed By: #### C DP, BMP #### [address] [place] [address] [employer] Services Professional: Rosario Linares MD Urinalysis,Microon 4 Bacteria TRACE Abnormal NONE [facility] Comment on above: Performed By: #### C DP, BMP #### [facility] [address] [place], [place] [phone] [employer] Services Professional: Rosario Linares MD Epithelial cells LM Ql (Urine sed) 5 TO 10 Normal 0-25 [facility] Comment on above: Performed By: #### C DP, BMP #### [facility] [address] [place], [place] 3711283 [employer] Services Professional: Rosario Linares MD Urine RBC's None Normal 0-2 [facility] Comment on above: Performed By: #### C DP, BMP #### [facility] [address] [place] [address] [employer] Services Professional: Rosario Linares MD Urine WBC's 2 TO 5 Normal 0-5 [facility] Comment on above: Performed By: #### C DP, BMP #### [facility] [address] [place] [address] Government Services Professional: Rosario Linares MD COVID/FLU/RSV RT-PCRon 06-04 SARS-CoV-2 (COVID-19) RNA DEVIN+probe Ql (Unsp spec) Negative [facility] Other COVID/FLU/RSV RT-PCR Negative [facility] Other Quick Strepon 06-04-2022 S. pyogenes Org specific cx Ql (Throat) Negative [facility] Other Quick Strep [facility] Other CBC AUTO DIFFon 01-24-2022 BASO # 0.1 103/ul Normal 0.0-0.1 [facility] Comment on above: Performed By: #### A FPTET #### [facility] [address] [place] [address] Dr. Belkys Fajardo Basophils/100 WBC (Bld) 0.3 % Normal 0.2-2.0 [facility] Comment on above: Performed By: #### A FPTET #### [facility] [address] [place] [address] Dr. Belkys Fajardo EO # 0.1 103/ul Normal 0.0-0.7 [facility] Comment on above: Performed By: #### A FPTET #### [facility] [address] [place] [address] Dr. Belkys Fajardo Eosinophils/100 WBC (Bld) 0.9 % Normal 0.9-7.0 [facility] Comment on above: Performed By: #### A FPTET #### [facility] [address] [address] [address] Belkys Fajardo Erythrocyte distribution width (RBC) [Ratio] 14.0 % Normal 11.0-15.0 [facility] Comment on above: Performed By: #### A FPTET #### [facility] [address] [place] [address] Dr. Belkys Fajardo Hematocrit (Bld) [Volume fraction] 24.8 % Critically low 36.0-48.0 [facility] Comment on above: Performed By: #### A FPTET #### [facility] [address] [place] [address] Dr. Belkys Fajardo Hemoglobin (Bld) [Mass/Vol] 8.2 g/dL Critically low 12.0-16.0 [facility] Comment on above: Performed By: #### A FPTET #### [facility] [address] [place] [address] Dr. Belkys Fajardo IG # 0.23 10e3/ul Critically high 0.00-0.03 [facility] Comment on above: Performed By: #### A FPTET #### [facility] [address] [place] [address] Dr. Belkys Fajardo IG % 1.5 % Critically high 0.0-0.5 [facility] Comment on above: Performed By: #### A FPTET #### [facility] [address] [place] [address] Dr. Belkys Fajardo LYMPH # 2.4 103/ul Normal 1.2-3.8 [facility] Comment on above: Performed By: #### A FPTET #### [facility] [address] [place] [address] Dr. Belkys Fajardo Lymphocytes/100 WBC (Bld) 15.5 % Critically low 20.5-60.0 [facility] Comment on above: Performed By: #### A FPTET #### [facility] [address] [place] [address] Dr. Belkys Fajardo MANUAL DIFF REQ NO Normal [facility] Comment on above: Performed By: #### A FPTET #### [facility] [address] [place] [address] Dr. Belkys Fajardo MCH (RBC) [Entitic mass] 28.5 pg Normal 26.7-34.0 [facility] Comment on above: Performed By: #### A FPTET #### [facility] [address] [place] [address] Dr. Belkys Fajardo MCHC (RBC) [Mass/Vol] 33.1 g/dL Normal 29.9-35.2 [facility] Comment on above: Performed By: #### A FPTET #### [facility] [address] [place] [address] Dr. Belkys Fajardo MCV (RBC) [Entitic vol] 86.1 fL Normal 81.0-99.0 [facility] Comment on above: Performed By: #### A FPTET #### [facility] [address] [place] [address] Dr. Belkys Fajardo MONO # 0.8 103/ul Normal 0.3-0.8 [facility] Comment on above: Performed By: #### A FPTET #### [facility] [address] [place] [address] Dr. Blekys Fajardo Monocytes/100 WBC (Bld) 5.4 % Normal 1.7-12.0 [facility] Comment on above: Performed By: #### A FPTET #### [facility] [address] [place] [address] Dr. Belkys Fajardo NEUT # 11.6 103/ul Critically high 1.4-6.5 [facility] Comment on above: Performed By: #### A FPTET #### [facility] [address] [place] [address] Dr. Belkys Fajardo Neutrophils/100 WBC (Bld) 76.4 % Critically high 43.0-75.0 [facility] Comment on above: Performed By: #### A FPTET #### [facility] [address] [place] [address] Dr. Belkys Fajardo Platelet mean volume (Bld) [Entitic vol] 10.2 fL Normal 9.5-13.5 [facility] Comment on above: Performed By: #### A FPTET #### [facility] [address] [place] [address] Dr. Belkys Fajardo PLT 235 103/ul Normal 150-450 [facility] Comment on above: Performed By: #### A FPTET #### [facility] [address] [place] [address] Dr. Belkys Fajardo RBC 2.88 106/ul Critically low 4.20-5.40 [facility] Comment on above: Performed By: #### A FPTET #### [facility] [address] [place] [address] Dr. Belkys Fajardo WBC 15.2 103/ul Critically high 4.0-11.0 [facility] Comment on above: Performed By: #### A FPTET #### [facility] [address] [place] [address] Dr. Belkys Fajardo CBC AUTO DIFFon 01-23-2022 BASO # 0.1 103/ul Normal 0.0-0.1 [facility] Comment on above: Performed By: #### A FPTET #### [facility] [address] [place] [address] Dr. Belkys Fajardo Basophils/100 WBC (Bld) 0.4 % Normal 0.2-2.0 [facility] Comment on above: Performed By: #### A FPTET #### [facility] [address] [place] [address] Dr. Belkys Fajardo EO # 0.1 103/ul Normal 0.0-0.7 [facility] Comment on above: Performed By: #### A FPTET #### [facility] [address] [place] [address] Dr. Belkys Fajardo Eosinophils/100 WBC (Bld) 0.5 % Critically low 0.9-7.0 [facility] Comment on above: Performed By: #### A FPTET #### [facility] [address] [place] [address] Dr. Belkys Fajardo Erythrocyte distribution width (RBC) [Ratio] 13.8 % Normal 11.0-15.0 [facility] Comment on above: Performed By: #### A FPTET #### [facility] [address] [place] [address] Dr. Belkys Fajardo Hematocrit (Bld) [Volume fraction] 32.5 % Critically low 36.0-48.0 [facility] Comment on above: Performed By: #### A FPTET #### [facility] [address] [place] [address] Dr. Belkys Fajardo Hemoglobin (Bld) [Mass/Vol] 11.0 g/dL Critically low 12.0-16.0 [facility] Comment on above: Performed By: #### A FPTET #### [facility] [address] [place] [address] Dr. Belkys Fajardo IG # 0.31 10e3/ul Critically high 0.00-0.03 [facility] Comment on above: Performed By: #### A FPTET #### [facility] [address] [place] [address] Dr. Belkys Fajardo IG % 1.6 % Critically high 0.0-0.5 [facility] Comment on above: Performed By: #### A FPTET #### [facility] [address] [place] [address] Dr. Belkys Fajardo LYMPH # 2.0 103/ul Normal 1.2-3.8 [facility] Comment on above: Performed By: #### A FPTET #### [facility] [address] [place] [address] Dr. Belkys Fajardo Lymphocytes/100 WBC (Bld) 10.2 % Critically low 20.5-60.0 [facility] Comment on above: Performed By: #### A FPTET #### [facility] [address] [place] [address] Dr. Belkys Fajardo MANUAL DIFF REQ NO Normal [facility] Comment on above: Performed By: #### A FPTET #### [facility] [address] [place], [place] [id number] Dr. Belkys Fajardo MCH (RBC) [Entitic mass] 28.4 pg Normal 26.7-34.0 [facility] Comment on above: Performed By: #### A FPTET #### [facility] [address] [place] [address] Dr. Belkys Fajardo MCHC (RBC) [Mass/Vol] 33.8 g/dL Normal 29.9-35.2 [facility] Comment on above: Performed By: #### A FPTET #### [facility] [address] [place] [address] Dr. Belkys Fajardo MCV (RBC) [Entitic vol] 83.8 fL Normal 81.0-99.0 [facility] Comment on above: Performed By: #### A FPTET #### [facility] [address] [place] [address] Dr. Belkys Fajardo MONO # 0.9 103/ul Critically high 0.3-0.8 [facility] Comment on above: Performed By: #### A FPTET #### [facility] [address] [place] [address] Dr. Belkys Fajardo Monocytes/100 WBC (Bld) 4.8 % Normal 1.7-12.0 [facility] Comment on above: Performed By: #### A FPTET #### [facility] [address] [place] [address] Dr. Belkys Fajardo NEUT # 16.0 103/ul Critically high 1.4-6.5 [facility] Comment on above: Performed By: #### A FPTET #### [facility] [address] [place] [address] Dr. Belkys Fajardo Neutrophils/100 WBC (Bld) 82.5 % Critically high 43.0-75.0 [facility] Comment on above: Performed By: #### A FPTET #### [facility] [address] [place] [address] Dr. Belkys Fajardo Platelet mean volume (Bld) [Entitic vol] 10.1 fL Normal 9.5-13.5 [facility] Comment on above: Performed By: #### A FPTET #### [facility] [address] [address] [address] Belkys Fajardo PLT 301 103/ul Normal 150-450 [facility] Comment on above: Performed By: #### A FPTET #### [facility] [address] [place], [place] [address] Dr. Belkys Fajardo RBC 3.88 106/ul Critically low 4.20-5.40 [facility] Comment on above: Performed By: #### A FPTET #### [facility] [address] [place], [place] [address] Dr. Belkys Fajardo WBC 19.3 103/ul Critically high 4.0-11.0 [facility] Comment on above: Performed By: #### A FPTET #### [facility] [address] [address] [address] Belkys Fajardo CULTURE URINEon 01-23-2022 CULTURE URINE Culture Observations : LIGHT GROWTH OF MIXED GENITAL HEYDI. NO POTENTIAL PATHOGENS SEEN. Normal [facility] Comment on above: Performed By: #### U ACSIND, UMICRO #### [facility] [address] [address] [address] Belkys Fajardo Covid-19 PCR ([facility])on 12-27 SARS-CoV-2 (COVID-19) RNA DEVIN+probe Ql (Unsp spec) Not detected Normal NOT DETECTED [facility] Comment on above: Result Comment: When diagnostic [...] for this test is supported by the [place] of Health and Human Service's declaration that [...] used). Performed By: #### C VDTBH #### [facility] [address] [place] [address] Dr. Belkys Fajardo DRUG SCREEN RAPID (URINE)on 01-23-2022 AMP Negative Normal NEGATIVE [facility] Comment on above: Performed By: #### A FPTET #### [facility] [address] [place] [address] Dr. Belkys Fajardo BAR Negative Normal NEGATIVE [facility] Comment on above: Performed By: #### A FPTET #### [facility] [address] [place] [address] Dr. Belkys Fajardo BUP Negative Normal NEGATIVE [facility] Comment on above: Performed By: #### A FPTET #### [facility] [address] [place] [address] Dr. Belkys Fajardo BZO Negative Normal NEGATIVE [facility] Comment on above: Performed By: #### A FPTET #### [facility] [address] [place] [address] Dr. Belkys Fajardo VALENCIA Negative Normal NEGATIVE [facility] Comment on above: Performed By: #### A FPTET #### [facility] [address] [place] [address] Dr. Belkys Fajardo CUT-OFFS SEE BELOW Normal [facility] Comment on above: Result Comment: AMP (Amphetamine): 500ng/mL, BAR (Barbituates): 200 ng/mL, BZO (Benzodiazepines): 150 ng/mL, BUP (Buprenorphine): 10 ng/mL, VALENCIA (Cocaine): 150 ng/mL, mAMP (Methamphetamine): 500 ng/mL, MTD (Methadone): 200 ng/mL, OPI (Opiates): 100 ng/mL, OXY (Oxycodone): 100 ng/mL, PCP (Phencyclidine): 25 ng/mL, PPX (Propoxyphene): 300 ng/mL, THC (Cannabinoids): 50 ng/mL, TCA (Trycyclic Antidepressants): 300 ng/mL Performed By: #### A FPTET #### [facility] [address] [place] [address] Dr. Belkys Fajardo DRUG CUT HEADER DRUG CLASS TEST SYSTEM CUT-OFF CONCENTRATIONS ARE FOLLOWS: Normal [facility] Comment on above: Performed By: #### A FPTET #### [facility] [address] [place] [address] Dr. Belkys Fajardo mAMP Negative Normal NEGATIVE [facility] Comment on above: Performed By: #### A FPTET #### [facility] [address] [place] [address] Dr. Belkys Fajardo MTD Negative Normal NEGATIVE [facility] Comment on above: Performed By: #### A FPTET #### [facility] [address] [place] [address] Dr. Belkys Fajardo OPI Negative Normal NEGATIVE [facility] Comment on above: Performed By: #### A FPTET #### [facility] [address] [place] [address] Dr. Belkys Fajardo OXY Negative Normal NEGATIVE [facility] Comment on above: Performed By: #### A FPTET #### [facility] [address] [place] [address] Dr. Belkys Fajardo PCP Negative Normal NEGATIVE [facility] Comment on above: Performed By: #### A FPTET #### [facility] [address] [place] [address] Dr. Belkys Fajardo PPX Negative Normal NEGATIVE [facility] Comment on above: Performed By: #### A FPTET #### [facility] [address] [place] [address] Dr. Belkys Fajardo TCA Negative Normal NEGATIVE [facility] Comment on above: Performed By: #### A FPTET #### [facility] [address] [place] [address] Dr. Belkys Fajardo THC Negative Normal NEGATIVE [facility] Comment on above: Performed By: #### A FPTET #### [facility] [address] [place] [address] Dr. Belkys Fajardo TYPE AND SCREENon 2022 TYPE AND SCREEN Negative Normal [facility] Comment on above: Performed By: #### U ACSIND, UMICRO #### [facility] [address] [address] [address] Belkys Fajardo UA (CLEAN/CATCH) FITNESS MANAGER/MICRO I F IND.on 01-23-2022 Bilirubin Ql (U) Negative Normal NEGATIVE [facility] Comment on above: Performed By: #### U ACSIND, UMICRO #### [facility] [address] [address] [address] Belkys Fajardo Clarity (U) CLEAR Normal CLEAR [facility] Comment on above: Performed By: #### U ACSIND, UMICRO #### [facility] [address] [place] [address] Dr. Belkys Fajardo Color (U) LT. YELLOW Normal YELLOW [facility] Comment on above: Performed By: #### U ACSIND, UMICRO #### [facility] [address] [address] [address] Belkys Fajardo Glucose Ql (U) Negative Normal NEGATIVE [facility] Comment on above: Performed By: #### U ACSIND, UMICRO #### [facility] [address] [address] [address] Belkys Fajardo Hemoglobin Ql (U) TRACE-INTACT Abnormal NEGATIVE [facility] Comment on above: Performed By: #### U ACSIND, UMICRO #### [facility] [address] [address] [address] Belkys Fajardo Ketones Ql (U) Negative Normal NEGATIVE [facility] Comment on above: Performed By: #### U ACSIND, UMICRO #### [facility] [address] [address] [address] Belkys Fajardo LEUKOCYTES MODERATE Abnormal NEGATIVE [facility] Comment on above: Performed By: #### U ACSIND, UMICRO #### [facility] [address] [address] [address] Belkys Fajardo Nitrite Ql (U) Negative Normal NEGATIVE [facility] Comment on above: Performed By: #### U ACSIND, UMICRO #### [facility] [address] [address] [address] Belkys Fajardo pH (U) 6.5 [pH] Normal 5-9 [facility] Comment on above: Performed By: #### U ACSTAMELA, UMICRO #### [facility] [address] [address] [address] Belkys Fajardo SPEC GRAVITY 1.015 Normal 1.005-<=1.025 [facility] Comment on above: Performed By: #### U ACSTAMELA, UMICRO #### [facility] [address] [address] [address] Belkys Fajardo UA PROTEIN Negative Normal NEGATIVE/ TRACE [facility] Comment on above: Performed By: #### U ACSTAMELA UMICRO #### [facility] [address] [place] [address] Dr. Belkys Fajardo UR MICRO IND INDICATED Normal [facility] Comment on above: Performed By: #### U MARIO UMICRO #### [facility] [address] [address] [address] Belkys Fajardo Urobilinogen Qn (U) 0.2 {Jakob'U}/dL Normal 0.2 - 1. 0 [facility] Comment on above: Performed By: #### U ACSTAMELA, UMICRO #### [facility] [address] [place] [address] Dr. Belkys Fajardo URINE MICROSCOPIC ONLYon BACTERIA SMALL Abnormal NONE SEEN [facility] Comment on above: Performed By: #### U ACSTAMELA UMICRO #### [facility] [address] [place] [address] Dr. Belkys Fajardo Bacteria identified Cx Nom (U) INDICATED Normal [facility] Comment on above: Performed By: #### U ACSTAMELA UMICRO #### [facility] [address] [place] [address] Dr. Belkys Fajardo CAST NONE SEEN Normal NONE SEEN [facility] Comment on above: Performed By: #### U ACSTAMELA UMICRO #### [facility] [address] [place] [address] Dr. Belkys Fajardo Crystals LM Nom (Urine sed) NONE SEEN Normal NONE SEEN [facility] Comment on above: Performed By: #### U ACSIND, UMICRO #### [facility] [address] [address] [address] Belkys Fajardo Epithelial cells LM Ql (Urine sed) FEW Abnormal NONE SEEN /RARE [facility] Comment on above: Performed By: #### U ACSIND, UMICRO #### [facility] [address] [address] [address] Belkys Fajardo MUCOUS NONE SEEN Normal NONE SEEN [facility] Comment on above: Performed By: #### U ACSIND, UMICRO #### [facility] [address] [address] [address] Belkys Fajardo RBC NONE SEEN Abnormal 0-2 [facility] Comment on above: Performed By: #### U ACSIND, UMICRO #### [facility] [address] [address] [address] Belkys Fajardo WBC 5-10 Abnormal NONE SEEN [facility] Comment on above: Performed By: #### U ACSIND, UMICRO #### [facility] [address] [address] [address] Belkys Fajardo US PREG GROWTHon 01-12-2022 [...] YOGI BLACK Date: 2022-01-12 21:15 Normal [facility] GROUP B STREP CULTUREon 12-26 S. agalactiae Ag Ql (Unsp spec) Culture Observations: NEGATIVE FOR GROUP B STREPTOCOCCUS. Normal [facility] Comment on above: Performed By: #### G BSCX #### [facility] [address] [place] [address] Dr. Belkys Fajardo GTT 3 HR PREGon 12-11-2021 Glucose [Mass/Vol] 91 mg/dL Normal 74-106 [facility] Comment on above: Performed By: #### G TT3P #### [facility] [address] [place] [address] Dr. Belkys Fajardo Glucose [Mass/Vol] 172 mg/dL Normal [facility] Comment on above: Performed By: #### G TT3P #### [facility] [address] [place] [address] Dr. Belkys Fajardo Glucose [Mass/Vol] 148 mg/dL Normal [facility] Comment on above: Performed By: #### G TT3P #### [facility] [address] [place] [address] Dr. Belkys Fajardo Glucose [Mass/Vol] 58 mg/dL Normal [facility] Comment on above: Performed By: #### G TT3P #### [facility] [address] [place] [address] Dr. Belkys Fajardo US PREG GROWTHon 12-08-2021 [...] YOGI BLACK Date: 2021-12-08 16:52 Normal [facility] GLUCOSE - 1HRon 11-12-2021 Glucose [Mass/Vol] 143 mg/dL Critically high 74-106 [facility] Comment on above: Performed By: #### U ACSIND, UMICRO #### [facility] [address] [address] [address] Belkys Fajardo HEMOGRAM AND PLATELon 2021 Hematocrit (Bld) [Volume fraction] 31.7 % Critically low 36.0-48.0 [facility] Comment on above: Performed By: #### A FPTET #### [facility] [address] [place] [address] Dr. Belkys Fajardo Hemoglobin (Bld) [Mass/Vol] 10.4 g/dL Critically low 12.0-16.0 [facility] Comment on above: Performed By: #### A FPTET #### [facility] [address] [place] [address] Dr. Belkys Fajardo MCH (RBC) [Entitic mass] 28.8 pg Normal 26.7-34.0 [facility] Comment on above: Performed By: #### A FPTET #### [facility] [address] [place] [address] Dr. Belkys Fajardo MCHC (RBC) [Mass/Vol] 32.8 g/dL Normal 29.9-35.2 [facility] Comment on above: Performed By: #### A FPTET #### [facility] [address] [place] [address] Dr. Belkys Fajardo MCV (RBC) [Entitic vol] 87.8 fL Normal 81.0-99.0 [facility] Comment on above: Performed By: #### A FPTET #### [facility] [address] [address] [address] Belkys Fajardo PLT 261 103/ul Normal 150-450 [facility] Comment on above: Performed By: #### A FPTET #### [facility] [address] [address] [address] Belkys Fajardo RBC 3.61 106/ul Critically low 4.20-5.40 [facility] Comment on above: Performed By: #### A FPTET #### [facility] [address] [address] [address] Belkys Fajardo WBC 11.5 103/ul Critically high 4.0-11.0 [facility] Comment on above: Performed By: #### A FPTET #### [facility] [address] [address] [address] Belkys Fajardo US PREG PLACENTAon 2 [...] by: YOGI BLACK Date: 2021-11-10 21:07 Normal [facility] US PREG PLACENTAon 2 US PREG PLACENTA EXAMINATION: US PREG PLACENTA HISTORY: Low lying placenta COMPARISON: Ultrasound anatomy 09/16/2021 FINDINGS: PLACENTA: Posterior with lower margin 2.5 cm from os. CERVIX LENGTH: 4.4 cm, closed. HEART RATE: 157 bpm OTHER: None. IMPRESSION: 1. Low-lying posterior placenta; no appreciable change compared to prior study. Electronically authenticated by: YOGI BLACK Date: 2021-10-14 19:56 Normal [facility] US PREG ANATOMY SINGLEon US [...] YOGI BLACK Date: 2021-09-16 16:54 Normal [facility] AFP TETRA PROFILE (MATERNAL) on 09-06-2021 PDF . Normal [facility] Comment on above: Performed By: #### A FPTET #### [facility] [address] [address] [address] Belkys Fajardo AFP MoM 0.86 Normal [facility] Comment on above: Performed By: #### A FPTET #### [facility] [address] [address] [address] Belkys Fajardo AFP Value 39.7 ng/mL Normal [facility] Comment on above: Performed By: #### A FPTET #### [facility] [address] [address] [address] Belkys Fajardo Comment Comment Normal [facility] Comment on above: Result Comment: Geremias Greer, Ph.D., [facility] Director . References: Available Upon Request. . Multiples Of Median Cutoffs Abbreviation Definitions For AFP Elevations IDD- Insulin Dep Diabetes Granados 2.5 Black 2.8 OSBR- Open Spina Bifida IDD 2.0 Twins 4.5 Risk DSR Cutoff 1:270 DSR- Down Syndrome Risk T18 Cutoff 1:100 T18- Trisomy 18 . Down Syndrome and Trisomy 18 screening are considered Investigational . For further inquiries contact [facility] at [phone]. Performed By: #### A FPTET #### [facility] [address] [place] [address] Dr. Belkys Fajardo MONIE MoM 0.[address] [facility] Comment on above: Performed By: #### A FPTET #### [facility] [address] [place] [address] Dr. Belkys Fajardo MONIE Value 113.50 pg/mL [facility] Comment on above: Performed By: #### A FPTET #### [facility] [address] [place] [address] Dr. Belkys Fajardo DSR (By Age) 1 [place] 765 Normal [facility] Comment on above: Performed By: #### A FPTET #### [facility] [address] [place] [address] Dr. Belkys Fajardo DSR (Second Trimester) 1 [place] [address] [facility] Comment on above: Performed By: #### A FPTET #### [facility] [address] [place] [address] Dr. Belkys Gilliland Age on Collection Date 18.7 WEEKS Normal [facility] Comment on above: Performed By: #### A FPTET #### [facility] [address] [place] [address] Dr. Belkys Pablo. Age Based On LMP [facility] Comment on above: Result Comment: 03/30 Performed By: #### A FPTET #### [facility] [address] [place] [address] Dr. Belkys Fajardo hCG MoM 0.78 Normal [facility] Comment on above: Performed By: #### A FPTET #### [facility] [address] [place] [address] [place] [address] m[IU]/mL Normal [facility] Comment on above: Performed By: #### A FPTET #### [facility] [address] [place] [address] Dr. Belkys Fajardo Insulin Dep Diabetes No Normal [facility] Comment on above: Performed By: #### A FPTET #### [facility] [address] [place] [address] Dr. Belkys Fajardo Interpretation Comment Normal [place] [...] identifies 60% of Trisomy 18 pregnancies. The [employer] recommends amniocentesis be offered to women age 35 and older. Recalculations are not recommended when gestational dating by LMP and ultrasound are within 10 days. Performed By: #### A FPTET #### [facility] [address] [place] [address] Dr. Belkys Fajardo [age] Normal [facility] Comment on above: Performed By: #### A FPTET #### [facility] [address] [place] [address] Dr. Belkys Fajardo Multiple Gestation No Normal [facility] Comment on above: Performed By: #### A FPTET #### [facility] [address] [place] [address] Dr. Belkys Fajardo OS[place] 1 [place] [address] Normal [facility] Comment on above: Performed By: #### A FPTET #### [facility] [address] [place] [address] Dr. Belkys Fajardo Race Normal [facility] Comment on above: Performed By: #### A FPTET #### [facility] [address] [address] [address] Belkys Fajardo Results Report Normal [facility] Comment on above: Performed By: #### A FPTET #### [facility] [address] [address] [address] Belkys Fajardo T18 (By Age) 1:2981 Normal [facility] Comment on above: Performed By: #### A FPTET #### [facility] [address] [address] [address] Belkys Fajardo T18 Risk Not increased Normal [facility] Comment on above: Performed By: #### A FPTET #### [facility] [address] [place] [address] Dr. Belkys Fajardo Test Results: Negative Normal [facility] Comment on above: Performed By: #### A FPTET #### [facility] [address] [address] [address] Belkys Fajardo uE3 MoM 1.[address] [facility] Comment on above: Performed By: #### A FPTET #### [facility] [address] [place] [address] Dr. Belkys Fajardo uE3 Value 2.26 ng/mL [facility] Comment on above: Performed By: #### A FPTET #### [facility] [address] [place] [address] Dr. Belkys Fajardo PAP ACOG PANEL 2: 21 to 29on 08-24-2021 . . Normal [facility] Comment on above: Result Comment: Perf ormed at: BA Performed By: #### [id number] #### [facility] [address] [place] [address] Dr. Belkys Fajardo Age Gdln ACOG Testing - [facility] Comment on above: Performed By: #### [id number] #### [facility] [address] [place] [address] Dr. Belkys Fajardo DIAGNOSIS: Comment Normal [facility] Comment on above: Result Comment: NEGA TIVE FOR INTRAEPITHELIAL LESION OR MALIGNANCY. Performed at: BA Performed By: #### [id number] #### [facility] [address] [place] [address] Dr. Belkys Fajardo Methodology: Comment Normal [facility] Comment on above: Result Comment: This liquid based ThinPrep(R) pap test was screened with the use of an image guided system. Performed at: WB Performed By: #### [id number] #### [facility] [address] [place] [address] Dr. Belkys Fajardo Note: Comment Normal [facility] Comment on above: [...] Performed at: WB Performed By: #### [id number] #### [facility] [address] [place] [address] Dr. Belkys Fajardo Performed by: Comment Normal [facility] Comment on above: Result Comment: Vicky Avila, Diagnostic Sales Specialist (ASCP) Performed at: BA Performed By: #### [id number] #### [facility] [address] [place] [address] Dr. Belkys Fajardo Reflex Criteria: Comment Normal [facility] Comment on above: Result Comment: The HPV DNA reflex criteria were not met with this specimen result therefore, no HPV testing was performed. . Performed at: BA Performed By: #### [id number] #### [facility] [address] [place] [address] Dr. Belkys Fajardo Specimen adequacy: Comment Normal [facility] Comment on above: Result Comment: Sati sfactory for evaluation. No endocervical component is identified. Performed at: BA Performed By: #### [id number] #### [facility] [address] [place] [address] Dr. Belkys Fajardo CBC AUTO DIFFon 08-22-2021 BASO # 0.0 103/ul Normal 0.0-0.1 [facility] Comment on above: Performed By: #### C BC #### [facility] [address] [address] [address] Belkys Fajardo Basophils/100 WBC (Bld) 0.2 % Normal 0.2-2.0 [facility] Comment on above: Performed By: #### C BC #### [facility] [address] [address] [address] Belkys Fajardo EO # 0.2 103/ul Normal 0.0-0.7 [facility] Comment on above: Performed By: #### C BC #### [facility] [address] [address] [address] Belkys Fajardo Eosinophils/100 WBC (Bld) 1.9 % Normal 0.9-7.0 [facility] Comment on above: Performed By: #### C BC #### [facility] [address] [place] [address] Dr. Belkys Fajardo Erythrocyte distribution width (RBC) [Ratio] 13.4 % Normal 11.0-15.0 [facility] Comment on above: Performed By: #### C BC #### [facility] [address] [place] [address] Dr. Belkys Fajardo Hematocrit (Bld) [Volume fraction] 32.7 % Critically low 36.0-48.0 [facility] Comment on above: Performed By: #### C BC #### [facility] [address] [address] [address] Belkys Fajardo Hemoglobin (Bld) [Mass/Vol] 11.0 g/dL Critically low 12.0-16.0 [facility] Comment on above: Performed By: #### C BC #### [facility] [address] [address] [address] Belkys Fajardo IG # 0.05 10e3/ul Critically high 0.00-0.03 [facility] Comment on above: Performed By: #### C BC #### [facility] [address] [address] [address] Belkys Fajardo IG % 0.5 % Normal 0.0-0.5 [facility] Comment on above: Performed By: #### C BC #### [facility] [address] [place] [address] Dr. Belkys Fajardo LYMPH # 2.3 103/ul Normal 1.2-3.8 [facility] Comment on above: Performed By: #### C BC #### [facility] [address] [place] [address] Dr. Belkys Fajardo Lymphocytes/100 WBC (Bld) 22.4 % Normal 20.5-60.0 [facility] Comment on above: Performed By: #### C BC #### [facility] [address] [place] [address] Dr. Belkys Fajardo MANUAL DIFF REQ NO Normal [facility] Comment on above: Performed By: #### C BC #### [facility] [address] [place] [address] Dr. Belkys Fajardo MCH (RBC) [Entitic mass] 29.3 pg Normal 26.7-34.0 [facility] Comment on above: Performed By: #### C BC #### [facility] [address] [place] [address] Dr. Belkys Fajardo MCHC (RBC) [Mass/Vol] 33.6 g/dL Normal 29.9-35.2 [facility] Comment on above: Performed By: #### C BC #### [facility] [address] [place] [address] Dr. Belkys Fajardo MCV (RBC) [Entitic vol] 87.2 fL Normal 81.0-99.0 [facility] Comment on above: Performed By: #### C BC #### [facility] [address] [place] [address] Dr. Belkys Fajardo MONO # 0.6 103/ul Normal 0.3-0.8 [facility] Comment on above: Performed By: #### C BC #### [facility] [address] [place] [address] Dr. Belkys Fajardo Monocytes/100 WBC (Bld) 5.5 % Normal 1.7-12.0 [facility] Comment on above: Performed By: #### C BC #### [facility] [address] [place] [address] Dr. Belkys Fajardo NEUT # 7.1 103/ul Critically high 1.4-6.5 [facility] Comment on above: Performed By: #### C BC #### [facility] [address] [address] [address] Belkys Fajardo Neutrophils/100 WBC (Bld) 69.5 % Normal 43.0-75.0 [facility] Comment on above: Performed By: #### C BC #### [facility] [address] [place] [address] Dr. Belkys Fajardo Platelet mean volume (Bld) [Entitic vol] 10.3 fL Normal 9.5-13.5 [facility] Comment on above: Performed By: #### C BC #### [facility] [address] [place] [address] Dr. Belkys Fajardo PLT 258 103/ul Normal 150-450 [facility] Comment on above: Performed By: #### C BC #### [facility] [address] [place] [address] Dr. Belkys Fajardo RBC 3.75 106/ul Critically low 4.20-5.40 [facility] Comment on above: Performed By: #### C BC #### [facility] [address] [place] [address] Dr. Belkys Fajardo WBC 10.2 103/ul Normal 4.0-11.0 [facility] Comment on above: Performed By: #### C BC #### [facility] [address] [place] [address] Dr. Belkys Fajardo CTA CHEST WO W [...] ROSARIO HERNANDEZ Date: 2021-08-22 08:31 Normal [facility] Covid-19 PCR (CVDTBH)on 07-27 SARS-CoV-2 (COVID-19) RNA DEVIN+probe Ql (Unsp spec) Not detected Normal NOT DETECTED [facility] Comment on above: Result Comment: When diagnostic [...] for this test is supported by the [place] of [employer] and Human Service's declaration that [...] used). Performed By: #### C VDTBH #### [facility] [address] [place] [address] [id number] [address] Belkys Fajardo PROF 14(COMP METB)on 022 Albumin [Mass/Vol] 3.0 g/dL Critically low 3.4-5.0 [facility] Comment on above: Performed By: #### A FPTET #### [facility] [address] [place] [address] Dr. Belkys Fajardo Albumin/Globulin [Mass ratio] 0.8 {ratio} Normal [facility] Comment on above: Performed By: #### A FPTET #### [facility] [address] [place] [address] Dr. Belkys Fajardo ALP [Catalytic activity/Vol] 52 U/L Normal 46-116 [facility] Comment on above: Performed By: #### A FPTET #### [facility] [address] [place] [address] Dr. Belkys Fajardo ALT [Catalytic activity/Vol] 32 U/L Normal 14-59 [facility] Comment on above: Performed By: #### A FPTET #### [facility] [address] [place] [address] Dr. Belkys Fajardo Anion gap [Moles/Vol] 12.8 mmol/L Normal [facility] Comment on above: Performed By: #### A FPTET #### [facility] [address] [place] [address] Dr. Belkys Fajardo AST [Catalytic activity/Vol] 17 U/L Normal 15-37 [facility] Comment on above: Performed By: #### A FPTET #### [facility] [address] [place] [address] Dr. Belkys Fajardo Bilirubin [Mass/Vol] 0.3 mg/dL Normal 0.2-1.0 [facility] Comment on above: Performed By: #### A FPTET #### [facility] [address] [place] [address] Dr. Belkys Fajardo Calcium [Mass/Vol] 8.5 mg/dL Normal 8.5-10.1 [facility] Comment on above: Performed By: #### A FPTET #### [facility] [address] [place] [address] Dr. Belkys Fajardo Chloride [Moles/Vol] 103 mmol/L Normal 98-107 [facility] Comment on above: Performed By: #### A FPTET #### [facility] [address] [place] [address] Dr. Belkys Fajardo CO2 [Moles/Vol] 24.7 mmol/L Normal 21.0-32.0 [facility] Comment on above: Performed By: #### A FPTET #### [facility] [address] [place] [address] Dr. Belkys Fajardo Creatinine [Mass/Vol] 0.46 mg/dL Critically low 0.55-1.02 [facility] Comment on above: Performed By: #### A FPTET #### [facility] [address] [place] [address] Dr. Belkys Fajardo EGFR-AF AFGHAN >60 Normal >=60 [facility] Comment on above: Performed By: #### A FPTET #### [facility] [address] [place] [address] Dr. Belkys Fajardo EGFR-NON AF AFGHAN >60 Normal >=60 [facility] Comment on above: Performed By: #### A FPTET #### [facility] [address] [place] [address] Dr. Belkys Fajardo Globulin (S) [Mass/Vol] 3.7 g/dL Normal [facility] Comment on above: Performed By: #### A FPTET #### [facility] [address] [place] [address] Dr. Belkys Fajardo Glucose [Mass/Vol] 84 mg/dL Normal 74-106 [facility] Comment on above: Performed By: #### A FPTET #### [facility] [address] [place] [address] Dr. Belkys Fajardo Potassium [Moles/Vol] 3.5 mmol/L Normal 3.5-5.1 [facility] Comment on above: Performed By: #### A FPTET #### [facility] [address] [place] [address] Dr. Belkys Fajardo Protein [Mass/Vol] 6.7 g/dL Normal 6.4-8.2 [facility] Comment on above: Performed By: #### A FPTET #### [facility] [address] [place] [address] Dr. Belkys Fajardo Sodium [Moles/Vol] 137 mmol/L Normal 136-145 [facility] Comment on above: Performed By: #### A FPTET #### [facility] [address] [place] [address] Dr. Belkys Fajardo Urea nitrogen [Mass/Vol] 7.0 mg/dL Normal 7.0-18.0 [facility] Comment on above: Performed By: #### A FPTET #### [facility] [address] [place] [address] Dr. Belkys Fajardo Urea nitrogen/Creatinine [Mass ratio] 15.2 mg/mg Normal [facility] Comment on above: Performed By: #### A FPTET #### [facility] [address] [place] [address] Dr. Belkys Fajardo TROPONIN, HIGH SENSITIVITYon 08-22-2021 HSTROP <4.0 Normal 4.0-51.3 [facility] Comment on above: Result Comment: CUT- OFF POINTS HAVE BEEN ESTABLISHED BASED ON THE FOURTH UNIVERSAL DEFINITIONS OF MYOCARDIAL INFARCTION. THE UPPER REFERENCE LIMIT (URL) OF TROPONIN, DEFINED THE 99TH PERCENTILE OF cTnI DISTRIBUTION IN A REFERENCE POPULATION, HAS BEEN CONFIRMED THE DECISION THRESHOLD FOR MA DIAGNOSIS. Performed By: #### A FPTET #### [facility] [address] [place] [address] Dr. Belkys Fajardo CHLAMYDIA/GONOCOCCUS DEVIN (SW AB/URINE/PAPon 08-21-2021 Chlamydia trachomatis, DEVIN Negative Normal Negative [facility] Comment on above: Performed By: #### C T/NGNA #### [facility] [address] [place] [address] Dr. Belkys Fajardo Neisseria gonorrhoeae, DEVIN Negative Normal Negative [facility] Comment on above: Performed By: #### C T/NGNA #### [facility] [address] [place] [address] Dr. Belkys Fajardo VAGINITIS/VAGINOSIS DNA PROB Gab 08-20-2021 Lani species Negative Normal Negative [facility] Comment on above: Performed By: #### A FPTET #### [facility] [address] [place] [address] Dr. Belkys Fajardo Gardnerella vaginalis Negative Normal Negative [facility] Comment on above: Performed By: #### A FPTET #### [facility] [address] [address] [address] Belkys Fajardo Trichomonas vaginalis Negative Normal Negative [facility] Comment on above: Performed By: #### A FPTET #### [facility] [address] [address] [address] Belkys Fajardo Vital Signs Date Time Vital Sign Value Performing Clinician Facility 07-28-2022 10:15-0400 Body height 170.18 cm Nick Ball Other [facility] Other 07-28-2022 10:15-0400 Body mass index (BMI) [Ratio] 27.81 kg/m2 Ncik Ball Other [facility] Other 07-28-2022 10:15-0400 Body weight 80.56 kg Nick Ball Other [facility] Other 07-28-2022 10:15-0400 Diastolic blood pressure 75 mm[Hg] Nick Ball Other [facility] Other 07-28-2022 10:15-0400 Systolic blood pressure 112 mm[Hg] Nick Ball Other [facility] Other 06-04-2022 17:00-0500 Body height 170.18 cm Cristal Guidry Other [facility] Other 06-04-2022 17:00-0500 Body mass index (BMI) [Ratio] 28.19 kg/m2 Cristal Guidry Other [facility] Other 06-04-2022 17:00-0500 Body temperature 97.4 [degF] Cristal Guidry Other [facility] Other 06-04-2022 17:00-0500 Body weight 81.65 kg Cristal Guidry Other [facility] Other 06-04-2022 17:00-0500 Respiratory rate 18 /min Cristal Guidry Other [facility] Other 06-04-2022 17:00-0500 SaO2% (BldA) [Mass fraction] 98 % Cristal Guidry Other [facility] Other 09-06-2021 02:05-0400 Body weight 77.[address] CHEYENNE MEADE . [facility] Comment on above: Performed By: #### AFPTET #### [facility] [address] [place] [address] Dr. Belkys Fajardo Encounters Encounter Date Encounter Type Care Provider Facility Start: 10-26-2023 End: 10-26-2023 ambulatory VALERIE DOROTEO Not Available Start: 10-18-2023 End: 10-18-2023 ambulatory VALERIE SADLER Not Available Start: 10-05-2023 End: 10-05-2023 ambulatory CHEYENNE WOLF Not Available Start: 09-21-2023 End: 09-21-2023 ambulatory CHEYENNE WOLF Not Available Start: 09-20-2023 End: 09-21-2023 Emergency department patient visit [facility] Start: 09-07-2023 End: 09-07-2023 ambulatory CHEYENNE WOLF Not Available Start: 08-24-2023 End: 08-24-2023 ambulatory CHEYENNE WOLF Not Available Start: 08-10-2023 End: 08-10-2023 ambulatory CHEYENNE WOLF Not Available Start: 07-28-2023 End: 07-30-2023 ambulatory YOGI MARQUEZ [facility] Start: 07-26-2023 End: 07-26-2023 Emergency department patient visit [facility] Start: 07-25-2023 End: 07-27-2023 [facility]ulatory [facility] Start: 07-13-2023 End: 07-13-2023 ambulatory CHEYENNE WOLF Not Available Start: 06-15-2023 End: 06-15-2023 ambulatory CHEYENNE WOLF Not Available Start: 05-16-2023 End: 05-16-2023 ambulatory CHEYENNE WOLF Not Available Start: 04-08-2023 End: 04-08-2023 ambulatory CHEYENNE WOLF Not Available Start: 07-28-2022 End: 07-28-2022 ambulatory Nick Leonrado Other [facility] Other Start: 07-28-2022 Office outpatient vi sit 15 minutes Nick Leonardo [facility] Start: 07-28-2022 Telephone encounter Nick Leonardo [facility] Start: 06-04-2022 End: 06-04-2022 ambulatory Cristal Guidry Other [facility] Other Start: 06-04-2022 Office outpatient ne w [...] End: 04-10-2021 Subsequent hospital visit by physician [facility] Data Reporting Analyst [facility] EKG Comment on above: Palpitations; Post-COVID [...] 04/15/2021 Office Visit Cardiology Yogi Marquez MD [address] [place] [address] [facility] Start: 11-26-2020 Influenza vaccination Flu vaccine (# 1) [facility] Start: 10-08-2020 DTaP/Tdap/Td vaccine (7 - Td or Tdap) DTaP/Tdap/Td vaccine (7 - Td or Tdap) [facility] Start: 2013 Screening for malign ant neoplasm of cervix Pap smear [facility] Start: 10-30-2007 HIV screening HIV screen [facility] Start: 2004 Depression Screen Depression Screen [facility] Start: 1997 COVID-19 Vaccine (1) COVID-19 Vaccin e (1) [facility] Start: 1993 Varicella vaccine (1 of 2 - 2-dose childhood series) Varicella vaccine (1 of 2 - 2-dose childhood series) [facility] Start: 1992 Hepatitis C screening Hepatitis C [facility] Payers Date Payer Category Payer Unknown [id number] 1992 Unknown [id number] 2.16.84 0.1.287607.3.579.2.593 1992 Unknown [id number] 2.16.84 0.1.189705.3.579.2.593 1992 Unknown [id number] 2.16.84 0.1.896880.3.579.2.593 1992 Unknown [id number] 2.16.84 0.1.327457.3.579.2.593 1992 Unknown [id number] 2.16.84 0.1.976584.3.579.2.593 1992 Unknown [id number] 2.16.84 0.1.351929.3.579.2.593 1992 Unknown [id number] 2.16.84 0.1.248780.3.579.2.593 1992 Unknown [id number] 2.16.84 0.1.838341.3.579.2.593 1992 Unknown [id number] 2.16.84 0.1.103641.3.579.2.593 1992 Unknown [id number] 2.16.84 0.1.922950.3.579.2.593 1992 Unknown [id number] 2.16.84 0.1.502962.3.579.2.593 1992 Unknown [id number] 2.16.84 0.1.800657.3.579.2.593 1992 Unknown [id number] 2.16.84 0.1.962147.3.579.2.593 1992 Unknown [id number] 2.16.8 40.1.946528.3.579.2.173 1992 Unknown [id number] 2.16.8 40.1.008898.3.579.2.173 1992 Unknown [id number] 2.16.8 40.1.440639.3.579.2.173 1992 Unknown [id number] 2.16.8 40.1.516028.3.579.2.173 1992 Unknown [id number] 2.16.84 0.1.956512.3.579.2.1259 1992 Unknown [id number] 2.16.84 0.1.176246.3.579.2.9 1992 Unknown [id number] 2.16.84 0.1.471412.3.579.2.1258 1992 Unknown [id number] 2.16.84 0.1.244646.3.579.2.9 1992 Unknown [id number] 2.16.84 0.1.740221.3.579.2.9 1992 Unknown [id number] 2.16.84 0.1.348469.3.579.2.9 1992 Unknown [id number] 2.16.84 0.1.913062.3.579.2.9 1992 Unknown [id number] 2.16.84 0.1.287247.3.579.2.1258 1992 Unknown [id number] 2.16.84 0.1.459148.3.579.2.1259 1992 Unknown [id number] 2.16.84 0.1.428601.3.579.2.9 1992 Unknown [id number] 2.16.84 0.1.874395.3.579.2.1259 1959 Unknown [id number] Social History Date Type Detail Facility Start: 08-29-2014 Tobacco smoking status NHIS Never smoked tobacco [employer] [facility]: Start: 08-29-2014 Tobacco use and exposure Smokeless tobacco non-user [employer] [facility]: Start: 03-09-2021 Alcohol intake Current drinke r of alcohol (finding) [facility]: Start: 03-09-2021 Alcohol intake [employer] Work Phone: Start: 08-29-2014 History SDOH Alcohol Comment occ. [employer] Work Phone: Start: 1990 [facility] Assigned At Sex Assigned At Bir th [facility] Other Evaluation note 07-28-2022 Note Date & [...] Monitor for now may not need treatment [facility] Other Evaluation note 06-04-2022 Note Date & [...] other viral communicable diseases (ICD-10 - Z20.828) [facility] Other Clinical Note 01-23-2022 Note Date & Type Note Facility 01-23-2022 Note OPERATIVE NOTE OPERATION DATE: 02/18/2022 PROCEDURE: Repair of fourth degree perineal laceration. PREOPERATIVE DIAGNOSIS: Fourth degree perineal laceration. POSTOPERATIVE DIAGNOSIS: Fourth degree perineal laceration. ANESTHESIA: Epidural SURGEON: Cheyenne Meade D.O. TWISTER TENDER: BOBO Cole URINE OUTPUT: Yellow and clear. [...] taken to recovery in stable condition. [facility] Clinical Note 01-23-2022 Note Date & Type Note Facility 01-23-2022 Note OP Note OPERATION DATE: 01/23/2022 PROCEDURE: Repair of fourth degree perineal laceration. PREOPERATIVE DIAGNOSIS: Fourth degree perineal laceration. POSTOPERATIVE DIAGNOSIS: Fourth degree perineal laceration. ANESTHESIA: Epidural SURGEON: Cheyenne Meade D.O. TWISTER TENDER: BOBO Cole URINE OUTPUT: Yellow and clear. [...] taken to recovery in stable condition. [facility] Clinical Note 01-23-2022 Note Date & Type Note Facility 01-23-2022 Note OPERATIVE NOTE OPERATION DATE: 02/10/2022 PROCEDURE: Repair of fourth degree laceration. PREOPERATIVE DIAGNOSIS: Fourth degree laceration. POSTOPERATIVE DIAGNOSIS: Fourth degree laceration. ANESTHESIA: General. SURGEON: Cheyenne Meade D.O. TWISTER TENDER: BOBO URINE OUTPUT: Yellow and clear. BLOOD [...] sheath and this was done in a [id number] fashion. This was performed using 3-0 Vicryl. [...] The patient tolerated this procedure well. [facility] Clinical Note 08-22-2021 Note Date & Type [...] by: DERIC VO Date: 2021-08-22 07:30 [facility] Evaluation note Note Date & Type Note Facility Evaluation note Diagnosis Palpitations Post-COVID chronic palpitations Shortness of breath Lightheaded Dizziness and giddiness Dizziness Dizziness and giddiness documented in this encounter Strap Phone: Evaluation note Note Date & Type Note Facility Evaluation note No Information Sent[facility] Other History general Narrative - Reported Note Date & Type Note Facility History general Narrative - Reported Type Medical History POTS Medical History sinus tachycardia Surgical History 4th degree vaginal tear after g iving 2021 [facility] Other History general Narrative - Reported Note Date & Type Note Facility History general Narrative - Reported Type Medical History POTS Medical History sinus tachycardia Medical History Anxiety, generalized Surgical History 4th degree vaginal t ear after giving 2021 Surgical History MASTOPEXY OF BOTH BR EASTS WITH INSERTION OF SALINE IMPLANTS Hospitalization History SEE SURGICAL HX [facility] Other Reason for Referral Specialty Diagnoses / Procedures Referred By Willy smith Referred To Contact Cardiology Diagnoses Palpitations Post-COVID chronic palpitations Shortness of breath Lightheaded Dizziness Procedures Holter Monitor 24 Hour Yogi Marquez MD [address] [place] [id number] Referral ID Status Reason Start Date Expiration Date Visits Re quested Visits Authorized [id number] Open 03/09/2021 03/09/2022 1 1 Advance Directives No Advanced Directives Records FoundDocuments on File Type Date Recorded Patient [employer]er [employer] anation ACP-Advance Directive ACP-Power [employer] Summary Purpose Family History No Family History Records FoundNo Family History Records FoundNo Family History Records Found Additional Source Comments Reason for Visit (unrecogniz ed section and content) Specialty Diagnoses / Procedures Referred By Willy smith Referred To Contact Cardiology Diagnoses Palpitations Post-COVID chronic palpitations Shortness of breath Lightheaded Dizziness Procedures Holter Monitor 24 Hour Yogi Marquez MD [address] [place] [address] Referral ID Status Reason Start Date Expiration Date Visits Re quested Visits Authorized [id number] Open 03/09/2021 03/09/2022 1 1 Care Teams (unrecognized sec tion and content) [employer] 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 [facility] [employer] [facility]. provides no warranty or guarantee of the accuracy or completeness of information in this document.
[2023-10-30 16:39] VITALS: BP 111/71; PULSE 92
[2023-10-30 16:50] LABS: Bilirubin Urine NEGATIVE (NEGATIVE); Blood Urine NEGATIVE (NEGATIVE); Clarity Urine CLEAR (CLEAR); Color Urine LT. YELLOW (YELLOW); Glucose Urine UA NEGATIVE (NEGATIVE); Ketones Urine NEGATIVE (NEGATIVE); Leukocyte Esterase Urine MODERATE (NEGATIVE); Nitrite Urine NEGATIVE (NEGATIVE); Protein Urine NEGATIVE (NEG/TRACE); Urobilinogen Urine 0.2 EU/dL (0.2-1.0); pH Urine 6.5 (5.0-9.0)
[2023-10-30 16:59] LABS: Urine Microscopic Indicated YES
[2023-10-30 17:04] LABS: Bacteria Urine SMALL #/HPF (NONE SEEN); Cast Seen? NONE SEEN #/LPF (NONE SEEN); Crystals Seen? None Seen #/HPF (None Seen); Mucus Urine TRACE (NONE SEEN); RBC Urine 0-2 #/HPF (0-2); Squamous Epithelial Cell Urine MANY #/LPF (NONE/RARE); Transitional Epi Cells Urine RARE #/LPF (NONE SEEN); Urine Culture Indicated YES
[2023-10-30] MEDS: CEPHALEXIN 500 MG CAPSULE PO (17:59)
== END 2023-10-30 18:43 | disposition home or self-care (01) ==
PROVIDERS: Admitting Provider Obstetrics & Gynecology; PCP Family Medicine; Visit Provider Obstetrics & Gynecology
DX: O47.1 False labor at or after 37 completed weeks of gestation (principal); Z3A.37 37 weeks gestation of pregnancy
CPT/HCPCS: 59025; 81001; 87086; G0378; G0379

== ENCOUNTER 2023-11-02 07:58 | Outpatient (OUT) | payer OTHER, SELFPAY ==
--- OUTSIDE RECORDS SUMMARY | 2023-11-02 08:02 | XMS_ITS | CCD ---
Author Organization [facility] Care Team Providers Care Cardiac Nurse Specialist Name Role Phone Nick Leonardo DO Primary [...] Primary Care Unavailable YOGI MARQUEZ Attending Unavailable OYGI MARQUEZ Referring Unavailable MOISES, LIS A Primary [...] Cayla Thornton MD 09/21/23 Final result [facility] CBC with Diffon 09-20-2023 Abs. Basophil 0.05 k/uL Normal 0.00-0.20 [facility] Comment on above: Performed By: #### C DP, PT, MG #### [address] [place] [id number] Power Lineman Technician: Rosario Linares MD Abs.Imm.Granulocyte 0.20 k/uL Normal 0.00-0.30 [facility] Comment on above: Performed By: #### C DP, PT, MG #### [address] [place] [address] Power Lineman Technician: Rosario Linares MD Abs.Neutrophil (Seg) 9.90 k/uL High 1.50-8.10 [facility] Comment on above: Performed By: #### C DP, PT, MG #### [address] [place] [address] Power Lineman Technician: Rosario Linares MD Basophils/100 WBC (Bld) 0 % Normal 0-2 [facility] Comment on above: Performed By: #### C DP, PT, MG #### [address] [place] [address] Power Lineman Technician: Rosario Linares MD Eosinophils (Bld) [#/Vol] 0.15 10*3/uL Normal 0.00-0.44 [facility] Comment on above: Performed By: #### C DP, PT, MG #### [address] [place] [id number] Power Lineman Technician: Rosario Linares MD Eosinophils/100 WBC (Bld) 1 % Normal 1-4 [facility] Comment on above: Performed By: #### C DP, PT, MG #### [address] [place] [phone] Power Lineman Technician: Rosario Linares MD Erythrocyte distribution width (RBC) [Ratio] 12.8 % Normal 11.8-14.4 [facility] Comment on above: Performed By: #### C DP, PT, MG #### [facility] [address] [place] [address] Power Lineman Technician: Rosario Linares MD Hematocrit (Bld) [Volume fraction] 32.7 % Low 36.3-47.1 [facility] Comment on above: Performed By: #### C DP, PT, MG #### [facility] [address] [place] [address] Power Lineman Technician: Rosario Linares MD Hemoglobin (Bld) [Mass/Vol] 11.3 g/dL Low 11.9-15.1 [facility] Comment on above: Performed By: #### C DP, PT, MG #### [facility] [address] [place] [address] Dr. [place], [facility]83 [employer] Lineman Technician: Rosario Linares MD Immature granulocytes/100 WBC (Bld) 2 % High 0 [facility] Comment on above: Performed By: #### C DP, PT, MG #### [address] [place], [facility]83 Power Lineman Technician: Rosario Linares MD Lymphocytes (Bld) [#/Vol] 2.23 10*3/uL Normal 1.10-3.70 [facility] Comment on above: Performed By: #### C DP, PT, MG #### [facility] [address] [place], [place] 3005783 Power Lineman Technician: Rosario Linares MD Lymphocytes/100 WBC (Bld) 17 % Low 24-43 [facility] Comment on above: Performed By: #### C DP, PT, MG #### [facility] [address] [place] [address] Power Lineman Technician: Rosario Linares MD MCH (RBC) [Entitic mass] 29.7 pg Normal 25.2-33.5 [facility] Comment on above: Performed By: #### C DP, PT, MG #### [address] [place], [place] [id number] Power Lineman Technician: Rosario Linares MD MCHC (RBC) [Mass/Vol] 34.6 g/dL Normal 28.4-34.8 [facility] Comment on above: Performed By: #### C DP, PT, MG #### [address] [place] [address] Power Lineman Technician: Rosario Linares MD MCV (RBC) [Entitic vol] 85.8 fL Normal 82.6-102.9 [facility] Comment on above: Performed By: #### C DP, PT, MG #### [address] [place], [facility]83 Power Lineman Technician: Rosario Linares MD Monocytes (Bld) [#/Vol] 0.72 10*3/uL Normal 0.10-1.20 [facility] Comment on above: Performed By: #### C DP, PT, MG #### [address] [place], [place] [id number] Power Lineman Technician: Rosario Linares MD Monocytes/100 WBC (Bld) 5 % Normal 3-12 [facility] Comment on above: Performed By: #### C DP, PT, MG #### [address] [place], [place] [phone] Power Lineman Technician: Rosario Linares MD Neutrophil (Seg) 75 % High 36-65 [facility] Comment on above: Performed By: #### C DP, PT, MG #### [address] [place] [address] Power Lineman Technician: Rosario Linares MD NRBC Automated 0.0 per 100 WBC Normal 0.0 [facility] Comment on above: Performed By: #### C DP, PT, MG #### [facility] [address] [place], [place] 9503283 Power Lineman Technician: Rosario Linares MD Platelet mean volume (Bld) [Entitic vol] 10.2 fL Normal 8.1-13.5 [facility] Comment on above: Performed By: #### C DP, PT, MG #### [facility] [address] [place], [place] [id number] Power Lineman Technician: Rosario Linares MD Platelets (Bld) [#/Vol] 293 10*3/uL Normal 138-453 [facility] Comment on above: Performed By: #### C DP, PT, MG #### [facility] [address] [place], [place] [phone] Power Lineman Technician: Rosario Linares MD RBC (Bld) [#/Vol] 3.81 10*6/uL Low 3.95-5.11 [facility] Comment on above: Performed By: #### C DP, PT, MG #### [address] [place], [place] [phone] Power Lineman Technician: Rosario Linares MD WBC (Bld) [#/Vol] 13.3 10*3/uL High 3.5-11.3 [facility] Comment on above: Performed By: #### C DP, PT, MG #### [facility] [address] [place] [address] Dr. [place], [facility]83 Power Lineman Technician: Rosario Linares MD Comp Metabolic Profon 2023 Albumin [Mass/Vol] 3.5 g/dL Normal 3.5-5.2 [facility] Comment on above: Performed By: #### C P #### [facility] [address] [place], [place] [id number] Power Lineman Technician: Rosario Linares MD Albumin/Glob Ratio 1.1 Normal 1.0-2.5 [facility] Comment on above: Performed By: #### C P #### [facility] [address] [place] [address] Power Lineman Technician: Rosario Linares MD Alkaline Phos 103 U/L Normal 35-104 [facility] Comment on above: Performed By: #### C P #### [facility] [address] [place], [place] [address]100883 Power Lineman Technician: Rosario Linares MD ALT [Catalytic activity/Vol] 16 U/L Normal 5-33 [facility] Comment on above: Performed By: #### C P #### [facility] [address] [place], [place] [id number] Power Lineman Technician: Rosario Linares MD Anion gap [Moles/Vol] 10 mmol/L Normal 9-17 [facility] Comment on above: Performed By: #### C P #### [facility] [address] [place], [place] 3741583 Power Lineman Technician: Rosario Linares MD AST [Catalytic activity/Vol] 16 U/L Normal <32 [facility] Comment on above: Performed By: #### C P #### [facility] [address] [place], [place] [phone] Power Lineman Technician: Rosario Linares MD Bilirubin [Mass/Vol] 0.2 mg/dL Low 0.3-1.2 [facility] Comment on above: Performed By: #### C P #### [facility] [address] [place], [place] 1259983 Power Lineman Technician: Rosario Linares MD BUN/CRE Ratio 18 Normal 9-20 [facility] Comment on above: Performed By: #### C P #### [facility] [address] [place], [place] 9[address]8583 Power Lineman Technician: Rosario Linares MD Calcium [Mass/Vol] 8.4 mg/dL Low 8.6-10.4 [facility] Comment on above: Performed By: #### C P #### [facility] [address] [place] [address] Power Lineman Technician: Rosario Linares MD Chloride [Moles/Vol] 101 mmol/L Normal 98-107 [facility] Comment on above: Performed By: #### C P #### [facility] [address] [place] [address] Power Lineman Technician: Rosario Linares MD CO2 [Moles/Vol] 22 mmol/L Normal 20-31 [facility] Comment on above: Performed By: #### C P #### [facility] [address] [place] [address] Power Lineman Technician: Rosario Linares MD Creatinine [Mass/Vol] 0.4 mg/dL Low 0.5-0.9 [facility] Comment on above: Performed By: #### C P #### [facility] [address] [place] [address] Power Lineman Technician: Rosario Linares MD GFR/1.73 sq M.predicted among non-blacks MDRD (S/P/Bld) [Vol rate/Area] mL/min/{1.73_m2} Normal >60 [facility] Comment on above: Result Comment: These [...] secretion. Performed By: #### C P #### [facility] [address] [place] [address] Power Lineman Technician: Rosario Linares MD Glucose [Mass/Vol] 89 mg/dL Normal 70-99 [facility] Comment on above: Performed By: #### C P #### [facility] [address] [place] [address] Power Lineman Technician: Rosario Linares MD Potassium [Moles/Vol] 3.7 mmol/L Normal 3.7-5.3 [facility] Comment on above: Performed By: #### C P #### [facility] [address] [place] [address] Power Lineman Technician: Rosario Linares MD Protein [Mass/Vol] 6.7 g/dL Normal 6.4-8.3 [facility] Comment on above: Performed By: #### C P #### [facility] [address] [place] [address] Power Lineman Technician: Rosario Linares MD Sodium [Moles/Vol] 133 mmol/L Low 135-144 [facility] Comment on above: Performed By: #### C P #### [facility] [address] [place] [address] Power Lineman Technician: Rosario Linares MD Urea nitrogen [Mass/Vol] 7 mg/dL Normal 6-20 [facility] Comment on above: Performed By: #### C P #### [address] [place] [address] Power Lineman Technician: Rosario Linares MD D-Dimer Teston 09-20-2023 D-Dimer Test 1.32 ug/mL FEU High 0.00-0.59 [facility] Comment on above: Result Comment: [...] DVT. Performed By: #### D PATI #### [address] [place] [address] Power Lineman Technician: Rosario Linares MD Magnesiumon 09-20-2023 Magnesium [Mass/Vol] 1.8 mg/dL Normal 1.6-2.6 [facility] Comment on above: Performed By: #### C DP, PT, MG #### [address] [place], [facility]83 Power Lineman Technician: Rosario Linares MD PTon 09-20-2023 INR Coag (PPP) [Relative time] 1.0 {INR} Normal [facility] Comment on above: Result Comment: Therapeutic Range: Moderate Anticoagulant Intensity: INR = 2.0-3.0 High Anticoagulant Intensity: INR = 2.5-3.5 Performed By: #### C DP, PT, MG #### [address] [place] [address] Power Lineman Technician: Rosario Linares MD PT Coag (PPP) [Time] 12.8 s Normal 11.7-14.1 [facility] Comment on above: Performed By: #### C DP, PT, MG #### [address] [place] [address] Power Lineman Technician: Rosario Linares MD Thyroid Stim. Horm.on 2023 Thyroid Stim. Horm. 2.11 uIU/mL Normal 0.30-5.00 [facility] Comment on above: Performed By: #### T SH #### [facility] [address] [place], [place] [id number] Power Lineman Technician: Rosario Linares MD Troponinon 09-20-2023 Troponin, High Sens <6 Normal 0-14 [facility] Comment on above: Result Comment: High Sensitivity Troponin values cannot be compared with other Troponin methodologies. Performed By: #### T ROPI #### [facility] [address] [place], [place] 228[address]83 Power Lineman Technician: Rosario Linares MD Basic Metabolic Profon 07-25 Anion gap [Moles/Vol] 13 mmol/L Normal 9-17 [facility] Comment on above: Performed By: #### C DP, BMP #### [facility] [address] [place], [place] [phone] Power Lineman Technician: Rosario Linares MD BUN/CRE Ratio 18 Normal 9-20 [facility] Comment on above: Performed By: #### C DP, BMP #### [facility] [address] [place], [place] [phone] Power Lineman Technician: Rosario Linares MD Calcium [Mass/Vol] 8.7 mg/dL Normal 8.6-10.4 [facility] Comment on above: Performed By: #### C DP, BMP #### [facility] [address] [place], [place] 3352883 Power Lineman Technician: Rosario Linares MD Chloride [Moles/Vol] 100 mmol/L Normal 98-107 [facility] Comment on above: Performed By: #### C DP, BMP #### [facility] [address] [place] [address] Power Lineman Technician: Rosario Linares MD CO2 [Moles/Vol] 21 mmol/L Normal 20-31 [facility] Comment on above: Performed By: #### C DP, BMP #### [facility] [address] [place] [address] Power Lineman Technician: Rosario Linares MD Creatinine [Mass/Vol] 0.4 mg/dL Low 0.5-0.9 [facility] Comment on above: Performed By: #### C DP, BMP #### [facility] [address] [place], [place] [phone] Power Lineman Technician: Rosario Linares MD GFR/1.73 sq M.predicted among non-blacks MDRD (S/P/Bld) [Vol rate/Area] mL/min/{1.73_m2} Normal >60 [facility] Comment on above: Result Comment: These [...] Performed By: #### C DP, BMP #### [facility] [address] [place] [address] [place] [address] Power Lineman Technician: Rosario Linares MD Glucose [Mass/Vol] 115 mg/dL High 70-99 [facility] Comment on above: Performed By: #### C DP, BMP #### [facility] [address] [place] [address] Power Lineman Technician: Rosario Linares MD Potassium [Moles/Vol] 3.4 mmol/L Low 3.7-5.3 [facility] Comment on above: Performed By: #### C DP, BMP #### [facility] [address] [place] [address] Power Lineman Technician: Rosario Linares MD Sodium [Moles/Vol] 134 mmol/L Low 135-144 [facility] Comment on above: Performed By: #### C DP, BMP #### [facility] [address] [place], [place] [address] Power Lineman Technician: Rosario Linares MD Urea nitrogen [Mass/Vol] 7 mg/dL Normal 6-20 [facility] Comment on above: Performed By: #### C DP, BMP #### [address] [place], [facility]83 Power Lineman Technician: Rosario Linares MD CBC with Diffon 07-26-2023 Abs. Basophil 0.04 k/uL Normal 0.00-0.20 [facility] Comment on above: Performed By: #### C DP, BMP #### [address] [place], [place] [address] Power Lineman Technician: Rosario Linares MD Abs.Imm.Granulocyte 0.07 k/uL Normal 0.00-0.30 [facility] Comment on above: Performed By: #### C DP, BMP #### [address] [place], [place] [address] Power Lineman Technician: Rosario Linares MD Abs.Neutrophil (Seg) 8.51 k/uL High 1.50-8.10 [facility] Comment on above: Performed By: #### C DP, BMP #### [address] [place], [facility]83 Power Lineman Technician: Rosario Linares MD Basophils/100 WBC (Bld) 0 % Normal 0-2 [facility] Comment on above: Performed By: #### C DP, BMP #### [facility] [address] [place] [address] Dr. [place], [facility]83 Power Lineman Technician: Rosario Linares MD Eosinophils (Bld) [#/Vol] 0.11 10*3/uL Normal 0.00-0.44 [facility] Comment on above: Performed By: #### C DP, BMP #### [address] [place], [facility]83 Power Lineman Technician: Rosario Linares MD Eosinophils/100 WBC (Bld) 1 % Normal 1-4 [facility] Comment on above: Performed By: #### C DP, BMP #### [facility] [address] [place] [address] Power Lineman Technician: Rosario Linares MD Erythrocyte distribution width (RBC) [Ratio] 13.0 % Normal 11.8-14.4 [facility] Comment on above: Performed By: #### C DP, BMP #### [facility] [address] [place] [address] Power Lineman Technician: Rosario Linares MD Hematocrit (Bld) [Volume fraction] 36.2 % Low 36.3-47.1 [facility] Comment on above: Performed By: #### C DP, BMP #### [address] [place] [address] Power Lineman Technician: Rosario Linares MD Hemoglobin (Bld) [Mass/Vol] 12.2 g/dL Normal 11.9-15.1 [facility] Comment on above: Performed By: #### C DP, BMP #### [address] [place] [address] Power Lineman Technician: Rosario Linares MD Immature granulocytes/100 WBC (Bld) 1 % High 0 [facility] Comment on above: Performed By: #### C DP, BMP #### [address] [place], [facility]83 Power Lineman Technician: Rosario Linares MD Lymphocytes (Bld) [#/Vol] 2.63 10*3/uL Normal 1.10-3.70 [facility] Comment on above: Performed By: #### C DP, BMP #### [address] [place], [place] [id number] Power Lineman Technician: Rosario Linares MD Lymphocytes/100 WBC (Bld) 22 % Low 24-43 [facility] Comment on above: Performed By: #### C DP, BMP #### [facility] [address] [place] [address] Power Lineman Technician: Rosario Linares MD MCH (RBC) [Entitic mass] 29.8 pg Normal 25.2-33.5 [facility] Comment on above: Performed By: #### C DP, BMP #### [address] [place], [facility]83 Power Lineman Technician: Rosario Linares MD MCHC (RBC) [Mass/Vol] 33.7 g/dL Normal 28.4-34.8 [facility] Comment on above: Performed By: #### C DP, BMP #### [address] [place] [address]74183 Power Lineman Technician: Rosario Linares MD MCV (RBC) [Entitic vol] 88.5 fL Normal 82.6-102.9 [facility] Comment on above: Performed By: #### C DP, BMP #### [address] [place] [address]183 Power Lineman Technician: Rosario Linares MD Monocytes (Bld) [#/Vol] 0.44 10*3/uL Normal 0.10-1.20 [facility] Comment on above: Performed By: #### C DP, BMP #### [address] [place], [place] [address] Power Lineman Technician: Rosario Linares MD Monocytes/100 WBC (Bld) 4 % Normal 3-12 [facility] Comment on above: Performed By: #### C DP, BMP #### [address] [place], [facility]83 Power Lineman Technician: Rosario Linares MD Neutrophil (Seg) 72 % High 36-65 [facility] Comment on above: Performed By: #### C DP, BMP #### [address] [place], [place] [phone] Power Lineman Technician: Rosario Linares MD NRBC Automated 0.0 per 100 WBC Normal 0.0 [facility] Comment on above: Performed By: #### C DP, BMP #### [facility] [address] [place], [place] 675[address]83 Power Lineman Technician: Rosario Linares MD Platelet mean volume (Bld) [Entitic vol] 10.3 fL Normal 8.1-13.5 [facility] Comment on above: Performed By: #### C DP, BMP #### [facility] [address] [place] [address] Power Lineman Technician: Rosario Linares MD Platelets (Bld) [#/Vol] 289 10*3/uL Normal 138-453 [facility] Comment on above: Performed By: #### C DP, BMP #### [facility] [address] [place] [address] Power Lineman Technician: Rosario Linares MD RBC (Bld) [#/Vol] 4.09 10*6/uL Normal 3.95-5.11 [facility] Comment on above: Performed By: #### C DP, BMP #### [address] [place], [place] [id number] [address] Power Lineman Technician: Rosario Linares MD WBC (Bld) [#/Vol] 11.8 10*3/uL High 3.5-11.3 [facility] Comment on above: Performed By: #### C DP, BMP #### [facility] [address] [place] [address] Power Lineman Technician: Rosario Linares MD Troponinon 07-26-2023 Troponin, High Sens 6 ng/L Normal 0-14 [facility] Comment on above: Result Comment: High Sensitivity Troponin values cannot be compared with other Troponin methodologies. Performed By: #### T ROPI #### [facility] [address] [place], [place] 4082783 Power Lineman Technician: Rosario Linares MD UA w/Reflex Cultureon 2023 Bilirubin, SemiQt,Ur Negative Normal NEG [facility] Comment on above: Performed By: #### C DP, BMP #### [facility] [address] [place], [place] [phone] Power Lineman Technician: Rosario Linares MD Blood, Urine Negative Normal NEG [facility] Comment on above: Performed By: #### C DP, BMP #### [facility] [address] [place], [place] 8397483 Power Lineman Technician: Rosario Linares MD Clarity (U) Clear Normal CLEAR [facility] Comment on above: Performed By: #### C DP, BMP #### [facility] [address] [place], [place] 9614983 Power Lineman Technician: Rosario Linares MD Color (U) Yellow Normal YEL [facility] Comment on above: Performed By: #### C DP, BMP #### [facility] [address] [place], [place] [phone] Power Lineman Technician: Rosario Linares MD Glucose Ql (U) Negative Normal NEG [facility] Comment on above: Performed By: #### C DP, BMP #### [facility] [address] [place], [place] 2922783 Power Lineman Technician: Rosario Linares MD Ketones Ql (U) Negative Normal NEG [facility] Comment on above: Performed By: #### C DP, BMP #### [facility] [address] [place], [place] 5548383 Power Lineman Technician: Rosario Linares MD Leukocyte esterase Test strip Ql (U) SMALL Abnormal NEG [facility] Comment on above: Performed By: #### C DP, BMP #### [facility] [address] [place], [place] 6046383 Power Lineman Technician: Rosario Linares MD Nitrite,Ur Negative Normal NEG [facility] Comment on above: Performed By: #### C DP, BMP #### [facility] [address] [place], [place] 1212183 Power Lineman Technician: Rosario Linares MD PH,Ur 8.0 Normal 5.0-9.0 [facility] Comment on above: Performed By: #### C DP, BMP #### [facility] [address] [place], [facility]83 Power Lineman Technician: Rosario Linares MD Protein Ql (U) Negative Normal NEG [facility] Comment on above: Performed By: #### C DP, BMP #### [address] [place], [facility]83 Power Lineman Technician: Rosario Linares MD Spec. [place],Ur 1.015 Normal 1.010-1.020 [facility] Comment on above: Performed By: #### C DP, BMP #### [facility] [address] [place] [address] [place] [address] Power Lineman Technician: Rosario Linares MD Urobilinogen,Ur Normal Normal 0.0-1.0 [facility] Comment on above: Performed By: #### C DP, BMP #### [address] [place] [address] Power Lineman Technician: Rosario Linares MD Urinalysis,Microon 4 Bacteria TRACE Abnormal NONE [facility] Comment on above: Performed By: #### C DP, BMP #### [facility] [address] [place], [place] [phone] Power Lineman Technician: Rosario Linares MD Epithelial cells LM Ql (Urine sed) 5 TO 10 Normal 0-25 [facility] Comment on above: Performed By: #### C DP, BMP #### [facility] [address] [place], [place] 932[address]83 Power Lineman Technician: Rosario Linares MD Urine RBC's None Normal 0-2 [facility] Comment on above: Performed By: #### C DP, BMP #### [facility] [address] [place] [address] Power Lineman Technician: Rosario Linares MD Urine WBC's 2 TO 5 Normal 0-5 [facility] Comment on above: Performed By: #### C DP, BMP #### [facility] [address] [place] [address] Power Lineman Technician: Rosario Linares MD COVID/FLU/RSV RT-PCRon 06-04 SARS-CoV-2 (COVID-19) RNA DEVIN+probe Ql (Unsp spec) Negative [facility] [employer] Other COVID/FLU/RSV RT-PCR Negative [facility] [employer] Other Quick Strepon 06-04-2022 S. pyogenes Org specific cx Ql (Throat) Negative [facility] [employer] Other Quick Strep [facility] [employer] Other CBC AUTO DIFFon 01-24-2022 BASO # 0.1 103/ul Normal 0.0-0.1 [facility] Comment on above: Performed By: #### A FPTET #### [facility] [address] [place] [address] Dr. Belkys Fajardo Basophils/100 WBC (Bld) 0.3 % Normal 0.2-2.0 [facility] Comment on above: Performed By: #### A FPTET #### [facility] [address] [place] [address] Dr. Belkys Fajardo EO # 0.1 103/ul Normal 0.0-0.7 [facility] Comment on above: Performed By: #### A FPTET #### [facility] [address] [place] [address] Dr. Belkys Fajardo Eosinophils/100 WBC (Bld) 0.9 % Normal 0.9-7.0 [facility] Comment on above: Performed By: #### A FPTET #### [facility] [address] [place] [address] [address] Belkys Fajardo Erythrocyte distribution width (RBC) [Ratio] 14.0 % Normal 11.0-15.0 [facility] Comment on above: Performed By: #### A FPTET #### [facility] [address] [place] [address] Dr. Belkys Fajardo Hematocrit (Bld) [Volume fraction] 24.8 % Critically low 36.0-48.0 [facility] Comment on above: Performed By: #### A FPTET #### [facility] [address] [place] [address] Dr. Belkys Fajardo Hemoglobin (Bld) [Mass/Vol] 8.2 g/dL Critically low 12.0-16.0 [facility] Comment on above: Performed By: #### A FPTET #### [facility] [address] [place] [address] Dr. Belkys Fajardo IG # 0.23 10e3/ul Critically high 0.00-0.03 [facility] Comment on above: Performed By: #### A FPTET #### [facility] [address] [place] [address] Dr. Belkys Fajardo IG % 1.5 % Critically high 0.0-0.5 [facility] Comment on above: Performed By: #### A FPTET #### [facility] [address] [place] [address] Dr. Belkys Fajardo LYMPH # 2.4 103/ul Normal 1.2-3.8 [facility] Comment on above: Performed By: #### A FPTET #### [facility] [address] [place] [address] Dr. Belkys Fajardo Lymphocytes/100 WBC (Bld) 15.5 % Critically low 20.5-60.0 [facility] Comment on above: Performed By: #### A FPTET #### [facility] [address] [place] [address] Dr. Belkys Fajardo MANUAL DIFF REQ NO Normal [facility] Comment on above: Performed By: #### A FPTET #### [facility] [address] [place] [address] Dr. Belkys Fajardo MCH (RBC) [Entitic mass] 28.5 pg Normal 26.7-34.0 [facility] Comment on above: Performed By: #### A FPTET #### [facility] [address] [place] [address] Dr. Belkys Fajardo MCHC (RBC) [Mass/Vol] 33.1 g/dL Normal 29.9-35.2 [facility] Comment on above: Performed By: #### A FPTET #### [facility] [address] [place] [address] Dr. Belkys Fajardo MCV (RBC) [Entitic vol] 86.1 fL Normal 81.0-99.0 [facility] Comment on above: Performed By: #### A FPTET #### [facility] [address] [place] [address] Dr. Belkys Fajardo MONO # 0.8 103/ul Normal 0.3-0.8 [facility] Comment on above: Performed By: #### A FPTET #### [facility] [address] [place] [address] Dr. Belkys Fajardo Monocytes/100 WBC (Bld) 5.4 % Normal 1.7-12.0 [facility] Comment on above: Performed By: #### A FPTET #### [facility] [address] [place] [address] Dr. Belkys Fajardo NEUT # 11.6 103/ul Critically high 1.4-6.5 [facility] Comment on above: Performed By: #### A FPTET #### [facility] [address] [place] [address] Dr. Belkys Fajardo Neutrophils/100 WBC (Bld) 76.4 % Critically high 43.0-75.0 [facility] Comment on above: Performed By: #### A FPTET #### [facility] [address] [place] [address] Dr. Belkys Fajardo Platelet mean volume (Bld) [Entitic vol] 10.2 fL Normal 9.5-13.5 [facility] Comment on above: Performed By: #### A FPTET #### [facility] [address] [place] [address] Dr. Belkys Fajardo PLT 235 103/ul Normal 150-450 [facility] Comment on above: Performed By: #### A FPTET #### [facility] [address] [place] [address] Dr. Belkys Fajardo RBC 2.88 106/ul Critically low 4.20-5.40 [facility] Comment on above: Performed By: #### A FPTET #### [facility] [address] [place] [address] Dr. Belkys Fajardo WBC 15.2 103/ul Critically high 4.0-11.0 [facility] Comment on above: Performed By: #### A FPTET #### [facility] [address] [place] [address] Dr. Belkys Fajardo CBC AUTO DIFFon 01-23-2022 BASO # 0.1 103/ul Normal 0.0-0.1 [facility] Comment on above: Performed By: #### A FPTET #### [facility] [address] [place] [address] Dr. Belkys Fajardo Basophils/100 WBC (Bld) 0.4 % Normal 0.2-2.0 [facility] Comment on above: Performed By: #### A FPTET #### [facility] [address] [place] [address] Dr. Belkys Fajardo EO # 0.1 103/ul Normal 0.0-0.7 [facility] Comment on above: Performed By: #### A FPTET #### [facility] [address] [place] [address] Dr. Belkys Fajardo Eosinophils/100 WBC (Bld) 0.5 % Critically low 0.9-7.0 [facility] Comment on above: Performed By: #### A FPTET #### [facility] [address] [place] [address] Dr. Belkys Fjaardo Erythrocyte distribution width (RBC) [Ratio] 13.8 % Normal 11.0-15.0 [facility] Comment on above: Performed By: #### A FPTET #### [facility] [address] [place] [address] Dr. Belkys Fajardo Hematocrit (Bld) [Volume fraction] 32.5 % Critically low 36.0-48.0 [facility] Comment on above: Performed By: #### A FPTET #### [facility] [address] [place] [address] Dr. Belkys Fajardo Hemoglobin (Bld) [Mass/Vol] 11.0 g/dL Critically low 12.0-16.0 [facility] Comment on above: Performed By: #### A FPTET #### [facility] [address] [place] [address] Dr. Belkys Fajardo IG # 0.31 10e3/ul Critically high 0.00-0.03 [facility] Comment on above: Performed By: #### A FPTET #### [facility] [address] [place] [address] Dr. Belkys Fajardo IG % 1.6 % Critically high 0.0-0.5 [facility] Comment on above: Performed By: #### A FPTET #### [facility] [address] [place] [address] Dr. Belkys Fajardo LYMPH # 2.0 103/ul Normal 1.2-3.8 [facility] Comment on above: Performed By: #### A FPTET #### [facility] [address] [place] [address] Dr. Belkys Fajardo Lymphocytes/100 WBC (Bld) 10.2 % Critically low 20.5-60.0 [facility] Comment on above: Performed By: #### A FPTET #### [facility] [address] [place] [address] Dr. Belkys Fajardo MANUAL DIFF REQ NO Normal [facility] Comment on above: Performed By: #### A FPTET #### [facility] [address] [place], [place] [id number] Dr. Belkys Fajardo MCH (RBC) [Entitic mass] 28.4 pg Normal 26.7-34.0 [facility] Comment on above: Performed By: #### A FPTET #### [facility] [address] [place] [address] Dr. Belkys Fajardo MCHC (RBC) [Mass/Vol] 33.8 g/dL Normal 29.9-35.2 [facility] Comment on above: Performed By: #### A FPTET #### [facility] [address] [place] [address] Dr. Belkys Fajardo MCV (RBC) [Entitic vol] 83.8 fL Normal 81.0-99.0 [facility] Comment on above: Performed By: #### A FPTET #### [facility] [address] [place] [address] Dr. Belkys Fajardo MONO # 0.9 103/ul Critically high 0.3-0.8 [facility] Comment on above: Performed By: #### A FPTET #### [facility] [address] [place] [address] Dr. Belkys Fajardo Monocytes/100 WBC (Bld) 4.8 % Normal 1.7-12.0 [facility] Comment on above: Performed By: #### A FPTET #### [facility] [address] [place] [address] Dr. Belkys Fajardo NEUT # 16.0 103/ul Critically high 1.4-6.5 [facility] Comment on above: Performed By: #### A FPTET #### [facility] [address] [place] [address] Dr. Belkys Fajardo Neutrophils/100 WBC (Bld) 82.5 % Critically high 43.0-75.0 [facility] Comment on above: Performed By: #### A FPTET #### [facility] [address] [place] [address] Dr. Belkys Fajardo Platelet mean volume (Bld) [Entitic vol] 10.1 fL Normal 9.5-13.5 [facility] Comment on above: Performed By: #### A FPTET #### [facility] [address] [address] [address] Belkys Fajardo PLT 301 103/ul Normal 150-450 [facility] Comment on above: Performed By: #### A FPTET #### [facility] [address] [place], [place] [address] Dr. Belkys Fajardo RBC 3.88 106/ul Critically low 4.20-5.40 [facility] Comment on above: Performed By: #### A FPTET #### [facility] [address] [place], [place] [address] Dr. Belkys Fajardo WBC 19.3 103/ul Critically high 4.0-11.0 [facility] Comment on above: Performed By: #### A FPTET #### [facility] [address] [address] [address] Belkys Fajardo CULTURE URINEon 01-23-2022 CULTURE URINE Culture Observations : LIGHT GROWTH OF MIXED GENITAL HEYDI. NO POTENTIAL PATHOGENS SEEN. Normal [facility] Comment on above: Performed By: #### U ACSIND, UMICRO #### [facility] [address] [address] [address] Belkys Fajardo Covid-19 PCR ([facility])on 12-27 SARS-CoV-2 (COVID-19) RNA DEVIN+probe Ql (Unsp spec) Not detected Normal NOT DETECTED [facility] Comment on above: Result Comment: [...] for this test is supported by the [place] of [employer] and Human Service's declaration that [...] used). Performed By: #### C VDTBH #### [facility] [address] [place] [address] Dr. Belkys Fajardo DRUG SCREEN RAPID (URINE)on 01-23-2022 AMP Negative Normal NEGATIVE [facility] Comment on above: Performed By: #### A FPTET #### [facility] [address] [place] [address] Dr. Belkys Fajardo BAR Negative Normal NEGATIVE [facility] Comment on above: Performed By: #### A FPTET #### [facility] [address] [place] [address] Dr. Belkys Fajardo BUP Negative Normal NEGATIVE [facility] Comment on above: Performed By: #### A FPTET #### [facility] [address] [place] [address] Dr. Belkys Fajardo BZO Negative Normal NEGATIVE [facility] Comment on above: Performed By: #### A FPTET #### [facility] [address] [place] [address] Dr. Belkys Fajardo VALENCIA Negative Normal NEGATIVE [facility] Comment on above: Performed By: #### A FPTET #### [facility] [address] [place] [address] Dr. Belkys Fajardo CUT-OFFS SEE BELOW Normal [facility] Comment on above: Result Comment: [...] ng/mL Performed By: #### A FPTET #### [facility] [address] [place] [address] Dr. Belkys Fajardo DRUG CUT HEADER DRUG CLASS TEST SYSTEM CUT-OFF CONCENTRATIONS ARE FOLLOWS: Normal [facility] Comment on above: Performed By: #### A FPTET #### [facility] [address] [place] [address] Dr. Belkys Fajardo mAMP Negative Normal NEGATIVE [facility] Comment on above: Performed By: #### A FPTET #### [facility] [address] [place] [address] Dr. Belkys Fajardo MTD Negative Normal NEGATIVE [facility] Comment on above: Performed By: #### A FPTET #### [facility] [address] [place] [address] Dr. Belkys Fajardo OPI Negative Normal NEGATIVE [facility] Comment on above: Performed By: #### A FPTET #### [facility] [address] [place] [address] Dr. Belkys Fajardo OXY Negative Normal NEGATIVE [facility] Comment on above: Performed By: #### A FPTET #### [facility] [address] [place] [address] Dr. Belkys Fajardo PCP Negative Normal NEGATIVE [facility] Comment on above: Performed By: #### A FPTET #### [facility] [address] [place] [address] Dr. Belkys Fajardo PPX Negative Normal NEGATIVE [facility] Comment on above: Performed By: #### A FPTET #### [facility] [address] [place] [address] Dr. Belkys Fajardo TCA Negative Normal NEGATIVE [facility] Comment on above: Performed By: #### A FPTET #### [facility] [address] [place] [address] Dr. Belkys Fajardo THC Negative Normal NEGATIVE [facility] Comment on above: Performed By: #### A FPTET #### [facility] [address] [place] [address] Dr. Belkys Fajardo TYPE AND SCREENon 2022 TYPE AND SCREEN Negative Normal [facility] Comment on above: Performed By: #### U ACSIND, UMICRO #### [facility] [address] [address] [address] Belkys Fajardo UA (CLEAN/CATCH) COMPUTER ANALYST SUPERVISOR/MICRO I F IND.on 01-23-2022 Bilirubin Ql (U) Negative Normal NEGATIVE [facility] Comment on above: Performed By: #### U ACSIND, UMICRO #### [facility] [address] [address] [address] Belkys Fajardo Clarity (U) CLEAR Normal CLEAR [facility] Comment on above: Performed By: #### U ACSIND, UMICRO #### [facility] [address] [place] [address] Dr. Belkys Fajardo Color (U) LT. YELLOW Normal YELLOW [facility] Comment on above: Performed By: #### U ACSIND, UMICRO #### [facility] [address] [address] [address] Belkys Fajardo Glucose Ql (U) Negative Normal NEGATIVE [facility] Comment on above: Performed By: #### U ACSIND, UMICRO #### [facility] [address] [address] [address] Belkys Fajardo Hemoglobin Ql (U) TRACE-INTACT Abnormal NEGATIVE [facility] Comment on above: Performed By: #### U ACSIND, UMICRO #### [facility] [address] [address] [address] Belkys Fajardo Ketones Ql (U) Negative Normal NEGATIVE [facility] Comment on above: Performed By: #### U ACSIND, UMICRO #### [facility] [address] [address] [address] Belkys Fajardo LEUKOCYTES MODERATE Abnormal NEGATIVE [facility] Comment on above: Performed By: #### U ACSIND, UMICRO #### [facility] [address] [address] [address] Belkys Fajardo Nitrite Ql (U) Negative Normal NEGATIVE [facility] Comment on above: Performed By: #### U ACSIND, UMICRO #### [facility] [address] [address] [address] Belkys Fajardo pH (U) 6.5 [pH] Normal 5-9 [facility] Comment on above: Performed By: #### U ACSTAMELA, UMICRO #### [facility] [address] [address] [address] Belkys Fajardo SPEC GRAVITY 1.015 Normal 1.005-<=1.025 [facility] Comment on above: Performed By: #### U ACSTAMELA, UMICRO #### [facility] [address] [address] [address] Belkys Fajardo UA PROTEIN Negative Normal NEGATIVE/ TRACE [facility] Comment on above: Performed By: #### U ACSTAMELA UMICRO #### [facility] [address] [place] [address] Dr. Belkys Fajardo UR MICRO IND INDICATED Normal [facility] Comment on above: Performed By: #### U MARIO UMICRO #### [facility] [address] [address] [address] Belkys Fajardo Urobilinogen Qn (U) 0.2 {Jakob'U}/dL Normal 0.2 - 1. 0 [facility] Comment on above: Performed By: #### U ACSTAMELA, UMICRO #### [facility] [address] [place] [address] Dr. Belkys Fajardo URINE MICROSCOPIC ONLYon BACTERIA SMALL Abnormal NONE SEEN [facility] Comment on above: Performed By: #### U ACSTAMELA UMICRO #### [facility] [address] [place] [address] Dr. Belkys Fajardo Bacteria identified Cx Nom (U) INDICATED Normal [facility] Comment on above: Performed By: #### U ACSTAMELA UMICRO #### [facility] [address] [place] [address] Dr. Belkys Fajardo CAST NONE SEEN Normal NONE SEEN [facility] Comment on above: Performed By: #### U ACSTAMELA UMICRO #### [facility] [address] [place] [address] Dr. Belkys Fjaardo Crystals LM Nom (Urine sed) NONE SEEN Normal NONE SEEN [facility] Comment on above: Performed By: #### U ACSIND, UMICRO #### [facility] [address] [address] [address] Belkys Fajardo Epithelial cells LM Ql (Urine sed) FEW Abnormal NONE SEEN /RARE [facility] Comment on above: Performed By: #### U ACSIND, UMICRO #### [facility] [address] [address] [address] Belkys Fajardo MUCOUS NONE SEEN Normal NONE SEEN [facility] Comment on above: Performed By: #### U ACSIND, UMICRO #### [facility] [address] [address] [address] Belkys Fajardo RBC NONE SEEN Abnormal 0-2 [facility] Comment on above: Performed By: #### U ACSIND, UMICRO #### [facility] [address] [address] [address] Belkys Fajardo WBC 5-10 Abnormal NONE SEEN [facility] Comment on above: Performed By: #### U ACSIND, UMICRO #### [facility] [address] [address] [address] Belkys Fajardo US PREG GROWTHon 01-12-2022 [...] YOGI BLACK Date: 2022-01-12 21:15 Normal [facility] GROUP B STREP CULTUREon 12-26 S. agalactiae Ag Ql (Unsp spec) Culture Observations: NEGATIVE FOR GROUP B STREPTOCOCCUS. Normal [facility] Comment on above: Performed By: #### G BSCX #### [facility] [address] [place] [address] Dr. Belkys Fajardo GTT 3 HR PREGon 12-11-2021 Glucose [Mass/Vol] 91 mg/dL Normal 74-106 [facility] Comment on above: Performed By: #### G TT3P #### [facility] [address] [place] [address] Dr. Belkys Fajardo Glucose [Mass/Vol] 172 mg/dL Normal [facility] Comment on above: Performed By: #### G TT3P #### [facility] [address] [place] [address] Dr. Belkys Fajardo Glucose [Mass/Vol] 148 mg/dL Normal [facility] Comment on above: Performed By: #### G TT3P #### [facility] [address] [place] [address] Dr. Belkys Fajardo Glucose [Mass/Vol] 58 mg/dL Normal [facility] Comment on above: Performed By: #### G TT3P #### [facility] [address] [place] [address] Dr. Belkys Fajardo US PREG GROWTHon 12-08-2021 [...] YOGI BLACK Date: 2021-12-08 16:52 Normal [facility] GLUCOSE - 1HRon 11-12-2021 Glucose [Mass/Vol] 143 mg/dL Critically high 74-106 T [facility] Comment on above: Performed By: #### U ACSIND, UMICRO #### [facility] [address] [address] [address] Belkys Fajardo HEMOGRAM AND PLATELon 2021 Hematocrit (Bld) [Volume fraction] 31.7 % Critically low 36.0-48.0 [facility] Comment on above: Performed By: #### A FPTET #### [facility] [address] [place] [address] Dr. Belkys Fajardo Hemoglobin (Bld) [Mass/Vol] 10.4 g/dL Critically low 12.0-16.0 [facility] Comment on above: Performed By: #### A FPTET #### [facility] [address] [place] [address] Dr. Belkys Fajardo MCH (RBC) [Entitic mass] 28.8 pg Normal 26.7-34.0 [facility] Comment on above: Performed By: #### A FPTET #### [facility] [address] [place] [address] Dr. Belkys Fajardo MCHC (RBC) [Mass/Vol] 32.8 g/dL Normal 29.9-35.2 [facility] Comment on above: Performed By: #### A FPTET #### [facility] [address] [place] [address] Dr. Belkys Fajardo MCV (RBC) [Entitic vol] 87.8 fL Normal 81.0-99.0 [facility] Comment on above: Performed By: #### A FPTET #### [facility] [address] [address] [address] Belkys Fajardo PLT 261 103/ul Normal 150-450 [facility] Comment on above: Performed By: #### A FPTET #### [facility] [address] [address] [address] Belkys Fajardo RBC 3.61 106/ul Critically low 4.20-5.40 [facility] Comment on above: Performed By: #### A FPTET #### [facility] [address] [address] [address] Belkys Fajardo WBC 11.5 103/ul Critically high 4.0-11.0 [facility] Comment on above: Performed By: #### A FPTET #### [facility] [address] [address] [address] Belkys Fajardo US PREG PLACENTAon 2 [...] by: YOGI BLACK Date: 2021-11-10 21:07 Normal [facility] US PREG PLACENTAon 2 US PREG PLACENTA EXAMINATION: US PREG PLACENTA HISTORY: Low lying placenta COMPARISON: Ultrasound anatomy 09/16/2021 FINDINGS: PLACENTA: Posterior with lower margin 2.5 cm from os. CERVIX LENGTH: 4.4 cm, closed. HEART RATE: 157 bpm OTHER: None. IMPRESSION: 1. Low-lying posterior placenta; no appreciable change compared to prior study. Electronically authenticated by: YOGI BLACK Date: 2021-10-14 19:56 Normal [facility] US PREG ANATOMY SINGLEon US PREG ANATOMY [...] YOGI BLACK Date: 2021-09-16 16:54 Normal [facility] AFP TETRA PROFILE (MATERNAL) on 09-06-2021 PDF . Normal [facility] Comment on above: Performed By: #### A FPTET #### [facility] [address] [address] [address] Belkys Fajardo AFP MoM 0.86 Normal [facility] Comment on above: Performed By: #### A FPTET #### [facility] [address] [address] [address] Belkys Fajardo AFP Value 39.7 ng/mL Normal [facility] Comment on above: Performed By: #### A FPTET #### [facility] [address] [address] [address] Belkys Fajardo Comment Comment Normal [facility] Comment on above: Result Comment: Geremias Greer, Ph.D., [facility] Director . References: Available Upon Request. . Multiples Of Median Cutoffs Abbreviation Definitions For AFP Elevations IDD- Insulin Dep Diabetes Granados 2.5 Black 2.8 OSBR- Open Spina Bifida IDD 2.0 Twins 4.5 Risk DSR Cutoff 1:270 DSR- Down Syndrome Risk T18 Cutoff 1:100 T18- Trisomy 18 . Down Syndrome and Trisomy 18 screening are considered Investigational . For further inquiries [facility] at [phone]. Performed By: #### A FPTET #### [facility] [address] [place] [address] Dr. Belkys Fajardo MONIE MoM 0.[address] [facility] Comment on above: Performed By: #### A FPTET #### [facility] [address] [place] [address] Dr. Belkys Fajardo MONIE Value 113.50 pg/mL [facility] Comment on above: Performed By: #### A FPTET #### [facility] [address] [place] [address] Dr. Belkys Fajardo DSR (By Age) 1 IN 765 Normal [facility] Comment on above: Performed By: #### A FPTET #### [facility] [address] [place] [address] Dr. Belkys Fajardo DSR (Second Trimester) 1 [place] [address] [facility] Comment on above: Performed By: #### A FPTET #### [facility] [address] [place] [address] Dr. Belkys Gilliland Age on Collection Date 20.7 WEEKS Normal [facility] Comment on above: Performed By: #### A FPTET #### [facility] [address] [place] [address] Dr. Belkys Pablo. Age Based On LMP [facility] Comment on above: Result Comment: 03/30 Performed By: #### A FPTET #### [facility] [address] [place] [address] Dr. Belkys Fajardo hCG MoM 0.78 Normal [facility] Comment on above: Performed By: #### A FPTET #### [facility] [address] [place] [address] [place] [address] m[IU]/mL Normal [facility] [facility] Comment on above: Performed By: #### A FPTET #### [facility] [address] [place] [address] Dr. Belkys Fajardo Insulin Dep Diabetes No Normal [facility] Comment on above: Performed By: #### A FPTET #### [facility] [address] [place] [address] Dr. Belkys Fajardo Interpretation Comment Normal [facility] Comment on above: Result Comment: Inte [...] identifies 60% of Trisomy 18 pregnancies. The [employer] recommends amniocentesis be offered to women age 35 and older. Recalculations are not recommended when gestational dating by LMP and ultrasound are within 10 days. Performed By: #### A FPTET #### [facility] [address] [place] [address] Dr. Belkys Fajardo [age] Normal [facility] Comment on above: Performed By: #### A FPTET #### [facility] [address] [place] [address] Dr. Belkys Fajardo Multiple Gestation No Normal [facility] Comment on above: Performed By: #### A FPTET #### [facility] [address] [place] [address] Dr. Belkys Fajardo [place] 1 [place] [address] Normal [facility] Comment on above: Performed By: #### A FPTET #### [facility] [address] [place] [address] Dr. Belkys Fajardo Race Normal [facility] Comment on above: Performed By: #### A FPTET #### [facility] [address] [address] [address] Belkys Fajardo Results Report Normal [facility] Comment on above: Performed By: #### A FPTET #### [facility] [address] [address] [address] Belkys Fajardo T18 (By Age) 1:2981 Normal [facility] Comment on above: Performed By: #### A FPTET #### [facility] [address] [address] [address] Belkys Fajardo T18 Risk Not increased Normal [facility] Comment on above: Performed By: #### A FPTET #### [facility] [address] [place] [address] Dr. Belkys Fajardo Test Results: Negative Normal [facility] Comment on above: Performed By: #### A FPTET #### [facility] [address] [address] [address] Belkys Fajardo uE3 MoM 1.[address] [facility] Comment on above: Performed By: #### A FPTET #### [facility] [address] [place] [address] Dr. Belkys Fajardo uE3 Value 2.26 ng/mL [facility] Comment on above: Performed By: #### A FPTET #### [facility] [address] [place] [address] Dr. Belkys Fajardo PAP ACOG PANEL 2: 21 to 29on 08-24-2021 . . Normal [facility] Comment on above: Result Comment: Perf ormed at: BA Performed By: #### [id number] #### [facility] [address] [place] [address] Dr. Belkys Fajardo Age Gdln ACOG Testing - [facility] Comment on above: Performed By: #### [id number] #### [facility] [address] [place] [address] Dr. Belkys Fajardo DIAGNOSIS: Comment Normal [facility] Comment on above: Result Comment: NEGA TIVE FOR INTRAEPITHELIAL LESION OR MALIGNANCY. Performed at: BA Performed By: #### [id number] #### [facility] [address] [place] [address] Dr. Belkys Fajardo Methodology: Comment Normal [facility] Comment on above: Result Comment: This liquid based ThinPrep(R) pap test was screened with the use of an image guided system. Performed at: WB Performed By: #### [id number] #### [facility] [address] [place] [address] Dr. Belkys Fajardo Note: Comment Normal [facility] Comment on above: Result Comment: The Pap smear is a screening test designed to aid in the detection of premalignant and malignant conditions of the uterine cervix. It is not a diagnostic procedure and should not be used as the sole means of detecting cervical cancer. Both false-positive and false-negative reports do occur. . Performed at: WB Performed By: #### [id number] #### [facility] [address] [place] [address] Dr. Belkys Fajardo Performed by: Comment Normal [facility] Comment on above: Result Comment: Vicky Avila, Benefits Advisor (ASCP) Performed at: BA Performed By: #### [id number] #### [facility] [address] [place] [address] Dr. Belkys Fajardo Reflex Criteria: Comment Normal [facility] Comment on above: Result Comment: The HPV DNA reflex criteria were not met with this specimen result therefore, no HPV testing was performed. . Performed at: BA Performed By: #### [id number] #### [facility] [address] [place] [address] Dr. Belkys Fajardo Specimen adequacy: Comment Normal [facility] Comment on above: Result Comment: Sati sfactory for evaluation. No endocervical component is identified. Performed at: BA Performed By: #### [id number] #### [facility] [address] [place] [address] Dr. Belkys Fajardo CBC AUTO DIFFon 08-22-2021 BASO # 0.0 103/ul Normal 0.0-0.1 [facility] Comment on above: Performed By: #### C BC #### [facility] [address] [address] [address] Belkys Fajardo Basophils/100 WBC (Bld) 0.2 % Normal 0.2-2.0 [facility] Comment on above: Performed By: #### C BC #### [facility] [address] [address] [address] Belkys Fajardo EO # 0.2 103/ul Normal 0.0-0.7 [facility] Comment on above: Performed By: #### C BC #### [facility] [address] [address] [address] Belkys Fajardo Eosinophils/100 WBC (Bld) 1.9 % Normal 0.9-7.0 [facility] Comment on above: Performed By: #### C BC #### [facility] [address] [place] [address] Dr. Belkys Fajardo Erythrocyte distribution width (RBC) [Ratio] 13.4 % Normal 11.0-15.0 [facility] Comment on above: Performed By: #### C BC #### [facility] [address] [place] [address] Dr. Belkys Fajardo Hematocrit (Bld) [Volume fraction] 32.7 % Critically low 36.0-48.0 [facility] Comment on above: Performed By: #### C BC #### [facility] [address] [address] [address] Belkys Fajardo Hemoglobin (Bld) [Mass/Vol] 11.0 g/dL Critically low 12.0-16.0 [facility] Comment on above: Performed By: #### C BC #### [facility] [address] [address] [address] Belkys Fajardo IG # 0.05 10e3/ul Critically high 0.00-0.03 [facility] Comment on above: Performed By: #### C BC #### [facility] [address] [address] [address] Belkys Fajardo IG % 0.5 % Normal 0.0-0.5 [facility] Comment on above: Performed By: #### C BC #### [facility] [address] [place] [address] Dr. Belkys Fajardo LYMPH # 2.3 103/ul Normal 1.2-3.8 [facility] Comment on above: Performed By: #### C BC #### [facility] [address] [place] [address] Dr. Belkys Fajardo Lymphocytes/100 WBC (Bld) 22.4 % Normal 20.5-60.0 [facility] Comment on above: Performed By: #### C BC #### [facility] [address] [place] [address] Dr. Belkys Fajardo MANUAL DIFF REQ NO Normal [facility] Comment on above: Performed By: #### C BC #### [facility] [address] [place] [address] Dr. Belkys Fajardo MCH (RBC) [Entitic mass] 29.3 pg Normal 26.7-34.0 [facility] Comment on above: Performed By: #### C BC #### [facility] [address] [place] [address] Dr. Belkys Fajardo MCHC (RBC) [Mass/Vol] 33.6 g/dL Normal 29.9-35.2 [facility] Comment on above: Performed By: #### C BC #### [facility] [address] [place] [address] Dr. Belkys Fajardo MCV (RBC) [Entitic vol] 87.2 fL Normal 81.0-99.0 [facility] Comment on above: Performed By: #### C BC #### [facility] [address] [place] [address] Dr. Belkys Fajardo MONO # 0.6 103/ul Normal 0.3-0.8 [facility] Comment on above: Performed By: #### C BC #### [facility] [address] [place] [address] Dr. Belkys Fajardo Monocytes/100 WBC (Bld) 5.5 % Normal 1.7-12.0 [facility] Comment on above: Performed By: #### C BC #### [facility] [address] [place] [address] Dr. Belkys Fajardo NEUT # 7.1 103/ul Critically high 1.4-6.5 [facility] Comment on above: Performed By: #### C BC #### [facility] [address] [address] [address] Belkys Fajardo Neutrophils/100 WBC (Bld) 69.5 % Normal 43.0-75.0 [facility] Comment on above: Performed By: #### C BC #### [facility] [address] [place] [address] Dr. Belkys Fajardo Platelet mean volume (Bld) [Entitic vol] 10.3 fL Normal 9.5-13.5 [facility] Comment on above: Performed By: #### C BC #### [facility] [address] [place] [address] Dr. Belkys Fajardo PLT 258 103/ul Normal 150-450 [facility] Comment on above: Performed By: #### C BC #### [facility] [address] [place] [address] Dr. Belkys Fajardo RBC 3.75 106/ul Critically low 4.20-5.40 [facility] Comment on above: Performed By: #### C BC #### [facility] [address] [place] [address] Dr. Belkys Fajardo WBC 10.2 103/ul Normal 4.0-11.0 [facility] Comment on above: Performed By: #### C BC #### [facility] [address] [place] [address] Dr. Belkys Fajardo CTA CHEST WO W [...] ROSARIO HERNANDEZ Date: 2021-08-22 08:31 Normal [facility] Covid-19 PCR (CVDTBH)on 07-27 SARS-CoV-2 (COVID-19) RNA DEVIN+probe Ql (Unsp spec) Not detected Normal NOT DETECTED [facility] Comment on above: Result Comment: [...] for this test is supported by the [place] of [employer] and Human Service's declaration that [...] used). Performed By: #### C VDTBH #### [facility] [address] [place] [id number] [address] Belkys Fajardo PROF 14(COMP METB)on 022 Albumin [Mass/Vol] 3.0 g/dL Critically low 3.4-5.0 [facility] Comment on above: Performed By: #### A FPTET #### [facility] [address] [place] [address] Dr. Belkys Fajardo Albumin/Globulin [Mass ratio] 0.8 {ratio} Normal [facility] Comment on above: Performed By: #### A FPTET #### [facility] [address] [place] [address] Dr. Belkys Fajardo ALP [Catalytic activity/Vol] 52 U/L Normal 46-116 [facility] Comment on above: Performed By: #### A FPTET #### [facility] [address] [place] [address] Dr. Belkys Fajardo ALT [Catalytic activity/Vol] 32 U/L Normal 14-59 [facility] Comment on above: Performed By: #### A FPTET #### [facility] [address] [place] [address] Dr. Belkys Fajardo Anion gap [Moles/Vol] 12.8 mmol/L Normal [facility] Comment on above: Performed By: #### A FPTET #### [facility] [address] [place] [address] Dr. Belkys Fajardo AST [Catalytic activity/Vol] 17 U/L Normal 15-37 [facility] Comment on above: Performed By: #### A FPTET #### [facility] [address] [place] [address] Dr. Belkys Fajardo Bilirubin [Mass/Vol] 0.3 mg/dL Normal 0.2-1.0 [facility] Comment on above: Performed By: #### A FPTET #### [facility] [address] [place] [address] Dr. Belkys Fajardo Calcium [Mass/Vol] 8.5 mg/dL Normal 8.5-10.1 [facility] Comment on above: Performed By: #### A FPTET #### [facility] [address] [place] [address] Dr. Belkys Fajardo Chloride [Moles/Vol] 103 mmol/L Normal 98-107 [facility] Comment on above: Performed By: #### A FPTET #### [facility] [address] [place] [address] Dr. Belkys Fajardo CO2 [Moles/Vol] 24.7 mmol/L Normal 21.0-32.0 [facility] Comment on above: Performed By: #### A FPTET #### [facility] [address] [place] [address] Dr. Belkys Fajardo Creatinine [Mass/Vol] 0.46 mg/dL Critically low 0.55-1.02 [facility] Comment on above: Performed By: #### A FPTET #### [facility] [address] [place] [address] Dr. Belkys Fajardo EGFR-AF PARAGUAYAN >60 Normal >=60 [facility] Comment on above: Performed By: #### A FPTET #### [facility] [address] [place] [address] Dr. Belkys Fajardo EGFR-NON AF PARAGUAYAN >60 Normal >=60 [facility] Comment on above: Performed By: #### A FPTET #### [facility] [address] [place] [address] Dr. Belkys Fajardo Globulin (S) [Mass/Vol] 3.7 g/dL Normal [facility] Comment on above: Performed By: #### A FPTET #### [facility] [address] [place] [address] Dr. Belkys Fajardo Glucose [Mass/Vol] 84 mg/dL Normal 74-106 [facility] Comment on above: Performed By: #### A FPTET #### [facility] [address] [place] [address] Dr. Belkys Fajardo Potassium [Moles/Vol] 3.5 mmol/L Normal 3.5-5.1 [facility] Comment on above: Performed By: #### A FPTET #### [facility] [address] [place] [address] Dr. Belkys Fajardo Protein [Mass/Vol] 6.7 g/dL Normal 6.4-8.2 [facility] Comment on above: Performed By: #### A FPTET #### [facility] [address] [place] [address] Dr. Belkys Fajardo Sodium [Moles/Vol] 137 mmol/L Normal 136-145 [facility] Comment on above: Performed By: #### A FPTET #### [facility] [address] [place] [address] Dr. Belkys Fajardo Urea nitrogen [Mass/Vol] 7.0 mg/dL Normal 7.0-18.0 [facility] Comment on above: Performed By: #### A FPTET #### [facility] [address] [place] [address] Dr. Belkys Fajardo Urea nitrogen/Creatinine [Mass ratio] 15.2 mg/mg Normal [facility] Comment on above: Performed By: #### A FPTET #### [facility] [address] [place] [address] Dr. Belkys Fajardo TROPONIN, HIGH SENSITIVITYon 08-22-2021 HSTROP <4.0 Normal 4.0-51.3 [facility] Comment on above: Result Comment: CUT- OFF POINTS HAVE BEEN ESTABLISHED BASED ON THE FOURTH UNIVERSAL DEFINITIONS OF MYOCARDIAL INFARCTION. THE UPPER REFERENCE LIMIT (URL) OF TROPONIN, DEFINED THE 99TH PERCENTILE OF cTnI DISTRIBUTION IN A REFERENCE POPULATION, HAS BEEN CONFIRMED THE DECISION THRESHOLD FOR ND DIAGNOSIS. Performed By: #### A FPTET #### [facility] [address] [place] [address] Dr. Belkys Fajardo CHLAMYDIA/GONOCOCCUS DEVIN (SW AB/URINE/PAPon 08-21-2021 Chlamydia trachomatis, DEVIN Negative Normal Negative [facility] Comment on above: Performed By: #### C T/NGNA #### [facility] [address] [place] [address] Dr. Belkys Fajardo Neisseria gonorrhoeae, DEVIN Negative Normal Negative [facility] Comment on above: Performed By: #### C T/NGNA #### [facility] [address] [place] [address] Dr. Belkys Fajrado VAGINITIS/VAGINOSIS DNA PROB Gab 08-20-2021 Lani species Negative Normal Negative [facility] Comment on above: Performed By: #### A FPTET #### [facility] [address] [place] [address] Dr. Belkys Fajardo Gardnerella vaginalis Negative Normal Negative [facility] Comment on above: Performed By: #### A FPTET #### [facility] [address] [address] [address] Belkys Fajardo Trichomonas vaginalis Negative Normal Negative [facility] Comment on above: Performed By: #### A FPTET #### [facility] [address] [address] [address] Belkys Fajardo Vital Signs Date Time Vital Sign Value Performing Clinician Facility 07-28-2022 10:15-0400 Body height 170.18 cm Nick Ball Other [facility] Other 07-28-2022 10:15-0400 Body mass index (BMI) [Ratio] 27.81 kg/m2 Nick Ball Other [facility] Other 07-28-2022 10:15-0400 Body weight 80.56 kg Nick Ball Other [facility] Other 07-28-2022 10:15-0400 Diastolic blood pressure 75 mm[Hg] Nick Ball Other [facility] Other 07-28-2022 10:15-0400 Systolic blood pressure 112 mm[Hg] Nick Ball Other [facility] Other 06-04-2022 17:00-0500 Body height 170.18 cm Cristal Guidry Other [facility] Other 06-04-2022 17:00-0500 Body mass index (BMI) [Ratio] 28.19 kg/m2 Cristal Guidry Other [facility] Other 06-04-2022 17:00-0500 Body temperature 97.4 [degF] Cristal Guidry Other [facility] Other 06-04-2022 17:00-0500 Body weight 81.65 kg Cristal Guidry Other [facility] Other 06-04-2022 17:00-0500 Respiratory rate 18 /min Cristal Guidry Other [facility] Other 06-04-2022 17:00-0500 SaO2% (BldA) [Mass fraction] 98 % Cristal Guidry Other [facility] Other 09-06-2021 02:05-0400 Body weight 77.[address] CHEYENNE MEADE . [facility] Comment on above: Performed By: #### AFPTET #### [facility] [address] [place] [address] Dr. Belkys Fajardo Encounters Encounter Date Encounter Type Care Provider Facility Start: 10-26-2023 End: 10-26-2023 ambulatory VALERIE DOROTEO Not Available Start: 10-18-2023 End: 10-18-2023 ambulatory VALERIE SADLER Not Available Start: 10-05-2023 End: 10-05-2023 ambulatory CHEYENNE WOLF Not Available Start: 09-21-2023 End: 09-21-2023 ambulatory CHEYENNE WOLF Not Available Start: 09-20-2023 End: 09-21-2023 Emergency department patient visit [facility] Start: 09-07-2023 End: 09-07-2023 ambulatory CHEYENNE WOLF Not Available Start: 08-24-2023 End: 08-24-2023 ambulatory CEHYENNE WOLF Not Available Start: 08-10-2023 End: 08-10-2023 ambulatory CHEYENNE WOLF Not Available Start: 07-28-2023 End: 07-30-2023 ambulatory YOGI MARQUEZ [facility] Start: 07-26-2023 End: 07-26-2023 Emergency department patient visit [facility] Start: 07-25-2023 End: 07-27-2023 [facility]ulatory [facility] Start: 07-13-2023 End: 07-13-2023 ambulatory CHEYENNE WOLF Not Available Start: 06-15-2023 End: 06-15-2023 ambulatory CHEYENNE WOLF Not Available Start: 05-16-2023 End: 05-16-2023 ambulatory CHEYENNE WOFL Not Available Start: 04-08-2023 End: 04-08-2023 ambulatory CHEYENNE WOLF Not Available Start: 07-28-2022 End: 07-28-2022 ambulatory Nick Leonardo Other [facility] Other Start: 07-28-2022 Office outpatient vi sit 15 minutes Nick Leonardo [facility] Start: 07-28-2022 Telephone encounter Nick Leonardo [facility] Start: 06-04-2022 End: 06-04-2022 ambulatory Cristal Guidry Other [facility] Other Start: 06-04-2022 Office outpatient ne w [...] End: 04-10-2021 Subsequent hospital visit by physician [facility] [employer] [facility] [facility] EKG Comment on above: Palpitations; [...] 04/15/2021 Office Visit Cardiology Yogi Marquez MD [address] [place] [address] [facility] Start: 11-26-2020 Influenza vaccination Flu vaccine (# 1) [facility] Start: 10-08-2020 DTaP/Tdap/Td vaccine (7 - Td or Tdap) DTaP/Tdap/Td vaccine (7 - Td or Tdap) [facility] Start: 2013 Screening for malign ant neoplasm of cervix Pap smear [facility] Start: 10-30-2007 HIV screening HIV screen [facility] Start: 2004 Depression Screen Depression Screen [facility] Start: 1997 COVID-19 Vaccine (1) COVID-19 Vaccin e (1) [facility] Start: 1993 Varicella vaccine (1 of 2 - 2-dose childhood series) Varicella vaccine (1 of 2 - 2-dose childhood series) [facility] Start: 1992 Hepatitis C screening Hepatitis C [facility] Payers Date Payer Category Payer Unknown [id number]. [id number] 1992 Unknown [id number] 2.16.84 0.1.792556.3.579.2.593 1992 Unknown [id number] 2.16.84 0.1.342291.3.579.2.593 1992 Unknown [id number] 2.16.84 0.1.483068.3.579.2.593 1992 Unknown [id number] 2.16.84 0.1.606948.3.579.2.593 1992 Unknown [id number] 2.16.84 0.1.657125.3.579.2.593 1992 Unknown [id number] 2.16.84 0.1.201620.3.579.2.593 1992 Unknown [id number] 2.16.84 0.1.056269.3.579.2.593 1992 Unknown [id number] 2.16.84 0.1.650955.3.579.2.593 1992 Unknown [id number] 2.16.84 0.1.452388.3.579.2.593 1992 Unknown [id number] 2.16.84 0.1.409359.3.579.2.593 1992 Unknown [id number] 2.16.84 0.1.033526.3.579.2.593 1992 Unknown [id number] 2.16.84 0.1.346979.3.579.2.593 1992 Unknown [id number] 2.16.84 0.1.634501.3.579.2.593 1992 Unknown [id number] 2.16.8 40.1.628131.3.579.2.173 1992 Unknown [id number] 2.16.8 40.1.721543.3.579.2.173 1992 Unknown [id number] 2.16.8 40.1.727359.3.579.2.173 1992 Unknown [id number] 2.16.8 40.1.324857.3.579.2.173 1992 Unknown [id number] 2.16.84 0.1.530432.3.579.2.1259 1992 Unknown [id number] 2.16.84 0.1.695995.3.579.2.9 1992 Unknown [id number] 2.16.84 0.1.184530.3.579.2.1258 1992 Unknown [id number] 2.16.84 0.1.065668.3.579.2.9 1992 Unknown [id number] 2.16.84 0.1.395375.3.579.2.9 1992 Unknown [id number] 2.16.84 0.1.922797.3.579.2.9 1992 Unknown [id number] 2.16.84 0.1.834861.3.579.2.9 1992 Unknown [id number] 2.16.84 0.1.601414.3.579.2.1258 1992 Unknown [id number] 2.16.84 0.1.349325.3.579.2.1259 1992 Unknown [id number] 2.16.84 0.1.714172.3.579.2.9 1992 Unknown [id number] 2.16.84 0.1.153486.3.579.2.1259 1959 Unknown [id number] Social History Date Type Detail Facility Start: 08-29-2014 Tobacco smoking status NHIS Never smoked tobacco [employer] Phone: Start: 08-29-2014 Tobacco use and exposure Smokeless tobacco non-user [employer] Phone: Start: 03-09-2021 Alcohol intake Current drinke r of alcohol (finding) [employer] Phone: Start: 03-09-2021 Alcohol intake [employer] Phone: Start: 08-29-2014 History SDOH Alcohol Comment occ. [employer] Work Phone: Start: 1990 [facility] At [facility] Sex Assigned At Sex Assigned At Bir th [facility] Other Evaluation note 07-28-2022 Note Date & [...] Monitor for now may not need treatment [facility] Other Evaluation note 06-04-2022 Note Date & [...] other viral communicable diseases (ICD-10 - Z20.828) [facility] Other Clinical Note 01-23-2022 Note Date & Type Note Facility 01-23-2022 Note OPERATIVE NOTE OPERATION DATE: 02/18/2022 PROCEDURE: Repair of fourth degree perineal laceration. PREOPERATIVE DIAGNOSIS: Fourth degree perineal laceration. POSTOPERATIVE DIAGNOSIS: Fourth degree perineal laceration. ANESTHESIA: Epidural SURGEON: Cheyenne Meade D.O. LABOR UTILIZATION SUPERINTENDENT: BOBO Cole URINE OUTPUT: Yellow and clear. [...] taken to recovery in stable condition. [facility] Clinical Note 01-23-2022 Note Date & Type Note Facility 01-23-2022 Note OP Note OPERATION DATE: 01/23/2022 PROCEDURE: Repair of fourth degree perineal laceration. PREOPERATIVE DIAGNOSIS: Fourth degree perineal laceration. POSTOPERATIVE DIAGNOSIS: Fourth degree perineal laceration. ANESTHESIA: Epidural SURGEON: Cheyenne Meade D.O. LABOR UTILIZATION SUPERINTENDENT: BOBO Cole URINE OUTPUT: Yellow and clear. [...] taken to recovery in stable condition. [facility] Clinical Note 01-23-2022 Note Date & Type Note Facility 01-23-2022 Note OPERATIVE NOTE OPERATION DATE: 02/10/2022 PROCEDURE: Repair of fourth degree laceration. PREOPERATIVE DIAGNOSIS: Fourth degree laceration. POSTOPERATIVE DIAGNOSIS: Fourth degree laceration. ANESTHESIA: General. SURGEON: Cheyenne Meade D.O. LABOR UTILIZATION SUPERINTENDENT: BOBO URINE OUTPUT: Yellow and clear. BLOOD [...] sheath and this was done in a [id number] fashion. This was performed using 3-0 Vicryl. [...] The patient tolerated this procedure well. [facility] Clinical Note 08-22-2021 Note Date [...] by: DERIC VO Date: 2021-08-22 07:30 [facility] Evaluation note Note Date & Type Note Facility Evaluation note Diagnosis Palpitations Post-COVID chronic palpitations Shortness of breath Lightheaded Dizziness and giddiness Dizziness Dizziness and giddiness documented in this encounter [employer]: Evaluation note Note Date & Type Note Facility Evaluation note No Information Metail Other History general Narrative - Reported Note Date & Type Note Facility History general Narrative - Reported Type Medical History POTS Medical History sinus tachycardia Surgical History 4th degree vaginal tear after g iving 2021 [facility] Other History general Narrative - Reported Note Date & Type Note Facility History general Narrative - Reported Type Medical History POTS Medical History sinus tachycardia Medical History Anxiety, generalized Surgical History 4th degree vaginal t ear after giving 2021 Surgical History MASTOPEXY OF BOTH BR EASTS WITH INSERTION OF SALINE IMPLANTS Hospitalization History SEE SURGICAL HX [facility] Other Reason for Referral Specialty Diagnoses / Procedures Referred By Willy smith Referred To Contact Cardiology Diagnoses Palpitations Post-COVID chronic palpitations Shortness of breath Lightheaded Dizziness Procedures Holter Monitor 24 Hour Yogi Marquez MD [address] [place] [id number] Referral ID Status Reason Start Date Expiration Date Visits Re quested Visits Authorized [id number] Open 03/09/2021 03/09/2022 1 1 Advance Directives No Advanced Directives Records FoundDocuments on File Type Date Recorded 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 Expl 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 ACP-Advance Directive ACP-Power of Room Manager Summary Purpose Family History No Family History Records FoundNo Family History Records FoundNo Family History Records Found Additional Source Comments Reason for Visit (unrecogniz ed section and content) Specialty Diagnoses / Procedures Referred By Willy smith Referred To Contact Cardiology Diagnoses Palpitations Post-COVID chronic palpitations Shortness of breath Lightheaded Dizziness Procedures Holter Monitor 24 Hour Yogi Marquez MD [address] [place] [address] Referral ID Status Reason Start Date Expiration Date Visits Re quested Visits Authorized [id number] Open 03/09/2021 03/09/2022 1 1 Care Teams (unrecognized sec tion and content) Cardiac Nurse Specialist Relationship Specialty Start Date End Date JordenNick, [address] [place] [address] PCP - General Internal Medicine 03/09/21 INFORMATION SOURCE (unrecogn ized section and content) DATE CREATED AUTHOR 07/01/2022 [facility] DATE CREATED AUTHOR AUTHOR'S ORGANIZ ATION 09/22/2023 [facility] DATE CREATED AUTHOR AUTHOR'S ORGANIZ ATION 2023 [facility] FOR RECORDS PERTAINING TO PATIENTS WHO [...] BE BASED ON THE PRIMARY CLINICAL RECORDS. [facility]. provides no warranty or guarantee of the accuracy or completeness of information in this document.
[2023-11-02 17:32] VITALS: BP 119/77; PULSE 83
--- NOTE | 2023-11-02 18:00 | US_ITS ---
[address] [address] Patient Name: AUDREY DOZIER MRN: [id number] date: 1990 Sex: F Assigned Patient Location: US Current Patient Location: Accession/Order Number: [id number] Exam Date: 11/02/2023 18:38 Report Date: 11/03/2023 05:37 At the request of: CHEYENNE BLOOM Procedure: US OB BPP w non-stress EXAMINATION: US OB BPP w non-stress HISTORY:THIRD TRIMESTER Z34.93 COMPARISON: Ultrasound OB biophysical 10/26/2023 TECHNIQUE: Ultrasound biophysical profile was performed in the radiology department. BREATHING MOVEMENTS: 2 GROSS BODY MOVEMENTS: 2 TONE: 2 QUALITATIVE AMNIOTIC FLUID VOLUME: 2 PRESENTATION: CEPHALIC HEART RATE: 150 bpm AMNIOTIC FLUID VOLUME: 9.39 cm GESTATIONAL AGE: 89 Day US/US OB BPP w non-stress IMPRESSION: Total biophysical profile score: 8 Electronically authenticated by: AILYN BLACK Date: 11/03/2023 05:37
== END 2023-11-02 19:15 | disposition home or self-care (01) ==
LOC: US 07:58 → FBC 17:23
PROVIDERS: PCP Family Medicine; Visit Provider Obstetrics & Gynecology
DX: Z34.93 Encounter for supervision of normal pregnancy, unspecified, third trimester (principal); G90.A Postural orthostatic tachycardia syndrome [POTS]; Z3A.37 37 weeks gestation of pregnancy
CPT/HCPCS: 76818

== ENCOUNTER 2023-11-05 06:35 | Outpatient (OUT) | payer OTHER, SELFPAY ==
--- OUTSIDE RECORDS SUMMARY | 2023-11-05 06:40 | XMS_ITS | CCD ---
Author Organization [facility] Care Team Providers Care Supervisor Type Bar And Segment Name Role Phone Nick Leonardo DO Primary Care Provider [phone] Cristal Guidry Unavailable WOLF ., DR QUINN [...] Primary Care Unavaila ble ZIEBGOKUL, DR YOGI [employer] Unavailable WOLF ., DR QUINN Admitting [...] Cayla Thornton MD 09/21/23 Final result Normal [facility] CBC with Diffon 09-20-2023 Abs. Basophil 0.05 k/uL Normal 0.00-0.20 [facility] Comment on above: Performed By: #### C DP, PT, MG #### [address] [place] [id number] Logistics Assistant: Rosario Linares MD Abs.Imm.Granulocyte 0.20 k/uL Normal 0.00-0.30 [facility] Comment on above: Performed By: #### C DP, PT, MG #### [address] [place] [address] Logistics Assistant: Rosario Linares MD Abs.Neutrophil (Seg) 9.90 k/uL High 1.50-8.10 [facility] Comment on above: Performed By: #### C DP, PT, MG #### [address] [place] [address] Logistics Assistant: Rosario Linares MD Basophils/100 WBC (Bld) 0 % Normal 0-2 [facility] Comment on above: Performed By: #### C DP, PT, MG #### [address] [place] [address] Logistics Assistant: Rosario Linares MD Eosinophils (Bld) [#/Vol] 0.15 10*3/uL Normal 0.00-0.44 [facility] Comment on above: Performed By: #### C DP, PT, MG #### [address] [place] [id number] Logistics Assistant: Rosario Linares MD Eosinophils/100 WBC (Bld) 1 % Normal 1-4 [facility] Comment on above: Performed By: #### C DP, PT, MG #### [address] [place] [id number] Logistics Assistant: Rosario Linares MD Erythrocyte distribution width (RBC) [Ratio] 12.8 % Normal 11.8-14.4 [facility] Comment on above: Performed By: #### C DP, PT, MG #### [facility] [address] [place] [address] Logistics Assistant: Rosario Linares MD Hematocrit (Bld) [Volume fraction] 32.7 % Low 36.3-47.1 [facility] Comment on above: Performed By: #### C DP, PT, MG #### [facility] [address] [place] [address] Logistics Assistant: Rosario Linares MD Hemoglobin (Bld) [Mass/Vol] 11.3 g/dL Low 11.9-15.1 [facility] Comment on above: Performed By: #### C DP, PT, MG #### [facility] [address] [place] [address] Dr. [place], [facility]83 Logistics Assistant: Rosario Linares MD Immature granulocytes/100 WBC (Bld) 2 % High 0 [facility] Comment on above: Performed By: #### C DP, PT, MG #### [address] [place], [facility]83 Logistics Assistant: Rosario Linares MD Lymphocytes (Bld) [#/Vol] 2.23 10*3/uL Normal 1.10-3.70 [facility] Comment on above: Performed By: #### C DP, PT, MG #### [facility] [address] [place], [place] [id number] Logistics Assistant: Rosario Linares MD Lymphocytes/100 WBC (Bld) 17 % Low 24-43 [facility] Comment on above: Performed By: #### C DP, PT, MG #### [facility] [address] [place] [address] Logistics Assistant: Rosario Linares MD MCH (RBC) [Entitic mass] 29.7 pg Normal 25.2-33.5 [facility] Comment on above: Performed By: #### C DP, PT, MG #### [address] [place], [place] [id number] Logistics Assistant: Rosario Linares MD MCHC (RBC) [Mass/Vol] 34.6 g/dL Normal 28.4-34.8 [facility] Comment on above: Performed By: #### C DP, PT, MG #### [address] [place] [address] Logistics Assistant: Rosario Linares MD MCV (RBC) [Entitic vol] 85.8 fL Normal 82.6-102.9 [facility] Comment on above: Performed By: #### C DP, PT, MG #### [address] [place], [facility]83 Logistics Assistant: Rosario Linares MD Monocytes (Bld) [#/Vol] 0.72 10*3/uL Normal 0.10-1.20 [facility] Comment on above: Performed By: #### C DP, PT, MG #### [address] [place], [place] 1135783 Logistics Assistant: Rosario Linares MD Monocytes/100 WBC (Bld) 5 % Normal 3-12 [facility] Comment on above: Performed By: #### C DP, PT, MG #### [address] [place], [place] [id number] Logistics Assistant: Rosario Linares MD Neutrophil (Seg) 75 % High 36-65 [facility] Comment on above: Performed By: #### C DP, PT, MG #### [address] [place] [address] Logistics Assistant: Rosario Linares MD NRBC Automated 0.0 per 100 WBC Normal 0.0 [facility] Comment on above: Performed By: #### C DP, PT, MG #### [facility] [address] [place], [place] [id number] Logistics Assistant: Rosario Linares MD Platelet mean volume (Bld) [Entitic vol] 10.2 fL Normal 8.1-13.5 [facility] Comment on above: Performed By: #### C DP, PT, MG #### [facility] [address] [place], [place] [id number] Logistics Assistant: Rosario Linares MD Platelets (Bld) [#/Vol] 293 10*3/uL Normal 138-453 [facility] Comment on above: Performed By: #### C DP, PT, MG #### [facility] [address] [place], [place] [id number] Logistics Assistant: Rosario Linares MD RBC (Bld) [#/Vol] 3.81 10*6/uL Low 3.95-5.11 [facility] Comment on above: Performed By: #### C DP, PT, MG #### [address] [place], [place] 8389083 Logistics Assistant: Rosario Linares MD WBC (Bld) [#/Vol] 13.3 10*3/uL High 3.5-11.3 [facility] Comment on above: Performed By: #### C DP, PT, MG #### [facility] [address] [place] [address] Dr. [place], [facility]83 Logistics Assistant: Rosario Linares MD Comp Metabolic Profon 2023 Albumin [Mass/Vol] 3.5 g/dL Normal 3.5-5.2 [facility] Comment on above: Performed By: #### C P #### [facility] [address] [place], [place] [id number] Logistics Assistant: Rosario Linares MD Albumin/Glob Ratio 1.1 Normal 1.0-2.5 [facility] Comment on above: Performed By: #### C P #### [facility] [address] [place] [address] Logistics Assistant: Rosario Linares MD Alkaline Phos 103 U/L Normal 35-104 [facility] Comment on above: Performed By: #### C P #### [facility] [address] [place], [place] 9997183 Logistics Assistant: Rosario Linares MD ALT [Catalytic activity/Vol] 16 U/L Normal 5-33 [facility] Comment on above: Performed By: #### C P #### [facility] [address] [place], [place] [phone] Logistics Assistant: Rosario Linares MD Anion gap [Moles/Vol] 10 mmol/L Normal 9-17 [facility] Comment on above: Performed By: #### C P #### [facility] [address] [place], [place] 6688083 Logistics Assistant: Rosario Linares MD AST [Catalytic activity/Vol] 16 U/L Normal <32 [facility] Comment on above: Performed By: #### C P #### [facility] [address] [place], [place] 8554983 Logistics Assistant: Rosario Linares MD Bilirubin [Mass/Vol] 0.2 mg/dL Low 0.3-1.2 [facility] Comment on above: Performed By: #### C P #### [facility] [address] [place], [place] 436[address] Logistics Assistant: Rosario Linares MD BUN/CRE Ratio 18 Normal 9-20 [facility] Comment on above: Performed By: #### C P #### [facility] [address] [place], [place] [id number] Logistics Assistant: Rosario Linares MD Calcium [Mass/Vol] 8.4 mg/dL Low 8.6-10.4 [facility] Comment on above: Performed By: #### C P #### [facility] [address] [place] [address] Logistics Assistant: Rosario Linares MD Chloride [Moles/Vol] 101 mmol/L Normal 98-107 [facility] Comment on above: Performed By: #### C P #### [facility] [address] [place] [address] Logistics Assistant: Rosario Linares MD CO2 [Moles/Vol] 22 mmol/L Normal 20-31 [place] Comment on above: Performed By: #### C P #### [facility] [address] [place] [address] Logistics Assistant: Rosario Linares MD Creatinine [Mass/Vol] 0.4 mg/dL Low 0.5-0.9 [facility] Comment on above: Performed By: #### C P #### [facility] [address] [place] [address] Logistics Assistant: Rosario Linares MD GFR/1.73 sq M.predicted among non-blacks MDRD (S/P/Bld) [Vol rate/Area] mL/min/{1.73_m2} Normal >60 [facility] Comment on above: Result Comment: These results [...] secretion. Performed By: #### C P #### [facility] [address] [place] [address] Logistics Assistant: Rosario Linares MD Glucose [Mass/Vol] 89 mg/dL Normal 70-99 [facility] Comment on above: Performed By: #### C P #### [facility] [address] [place] [address] Logistics Assistant: Rosario Linares MD Potassium [Moles/Vol] 3.7 mmol/L Normal 3.7-5.3 [facility] Comment on above: Performed By: #### C P #### [facility] [address] [place] [address] Logistics Assistant: Rosario Linares MD Protein [Mass/Vol] 6.7 g/dL Normal 6.4-8.3 [facility] Comment on above: Performed By: #### C P #### [facility] [address] [place] [address] Logistics Assistant: Rosario Linares MD Sodium [Moles/Vol] 133 mmol/L Low 135-144 [facility] Comment on above: Performed By: #### C P #### [facility] [address] [place] [address] Logistics Assistant: Rosario Linares MD Urea nitrogen [Mass/Vol] 7 mg/dL Normal 6-20 [facility] Comment on above: Performed By: #### C P #### [address] [place] [address] Logistics Assistant: Rosario Linares MD D-Dimer Teston 09-20-2023 D-Dimer Test 1.32 ug/mL FEU High 0.00-0.59 [facility] Comment on above: Result Comment: [...] DVT. Performed By: #### D PATI #### [address] [place] [address] Logistics Assistant: Rosario Linares MD Magnesiumon 09-20-2023 Magnesium [Mass/Vol] 1.8 mg/dL Normal 1.6-2.6 [facility] Comment on above: Performed By: #### C DP, PT, MG #### [address] [place], [facility]83 Logistics Assistant: Rosario Linares MD PTon 09-20-2023 INR Coag (PPP) [Relative time] 1.0 {INR} Normal [facility] Comment on above: Result Comment: Therapeutic Range: Moderate Anticoagulant Intensity: INR = 2.0-3.0 High Anticoagulant Intensity: INR = 2.5-3.5 Performed By: #### C DP, PT, MG #### [address] [place] [address] Logistics Assistant: Rosario Linares MD PT Coag (PPP) [Time] 12.8 s Normal 11.7-14.1 [facility] Comment on above: Performed By: #### C DP, PT, MG #### [address] [place] [address] Logistics Assistant: Rosario Linares MD Thyroid Stim. Horm.on 2023 Thyroid Stim. Horm. 2.11 uIU/mL Normal 0.30-5.00 [facility] Comment on above: Performed By: #### T SH #### [facility] [address] [place], [place] 0498383 Logistics Assistant: Rosario Linares MD Troponinon 09-20-2023 Troponin, High Sens <6 Normal 0-14 [facility] Comment on above: Result Comment: High Sensitivity Troponin values cannot be compared with other Troponin methodologies. Performed By: #### T ROPI #### [facility] [address] [place], [place] [id number] Logistics Assistant: Rosario Linares MD Basic Metabolic Profon 07-25 Anion gap [Moles/Vol] 13 mmol/L Normal 9-17 [facility] Comment on above: Performed By: #### C DP, BMP #### [facility] [address] [place], [place] [id number] Logistics Assistant: Rosario Linares MD BUN/CRE Ratio 18 Normal 9-20 [facility] Comment on above: Performed By: #### C DP, BMP #### [facility] [address] [place], [place] 9791783 Logistics Assistant: Rosario Linares MD Calcium [Mass/Vol] 8.7 mg/dL Normal 8.6-10.4 [facility] Comment on above: Performed By: #### C DP, BMP #### [facility] [address] [place], [place] 5583783 Logistics Assistant: Rosario Linares MD Chloride [Moles/Vol] 100 mmol/L Normal 98-107 [facility] Comment on above: Performed By: #### C DP, BMP #### [facility] [address] [place] [address] Logistics Assistant: Rosario Linares MD CO2 [Moles/Vol] 21 mmol/L Normal 20-31 [place] Comment on above: Performed By: #### C DP, BMP #### [facility] [address] [place] [address] Logistics Assistant: Rosario Linares MD Creatinine [Mass/Vol] 0.4 mg/dL Low 0.5-0.9 [facility] Comment on above: Performed By: #### C DP, BMP #### [facility] [address] [place], [place] 4771183 Logistics Assistant: Rosario Linares MD GFR/1.73 sq M.predicted among non-blacks MDRD (S/P/Bld) [Vol rate/Area] mL/min/{1.73_m2} Normal >60 [facility] Comment on above: Result Comment: These results [...] Performed By: #### C DP, BMP #### [facility] [address] [place] [address] [place] [address] Logistics Assistant: Rosario Linares MD Glucose [Mass/Vol] 115 mg/dL High 70-99 [facility] Comment on above: Performed By: #### C DP, BMP #### [facility] [address] [place] [address] Logistics Assistant: Rosario Linares MD Potassium [Moles/Vol] 3.4 mmol/L Low 3.7-5.3 [facility] Comment on above: Performed By: #### C DP, BMP #### [facility] [address] [place] [address] Logistics Assistant: Rosario Linares MD Sodium [Moles/Vol] 134 mmol/L Low 135-144 [facility] Comment on above: Performed By: #### C DP, BMP #### [facility] [address] [place], [place] [address] Logistics Assistant: Rosario Linares MD Urea nitrogen [Mass/Vol] 7 mg/dL Normal 6-20 [facility] Comment on above: Performed By: #### C DP, BMP #### [address] [place], [facility]83 Logistics Assistant: Rosario Linares MD CBC with Diffon 07-26-2023 Abs. Basophil 0.04 k/uL Normal 0.00-0.20 [facility] Comment on above: Performed By: #### C DP, BMP #### [address] [place], [place] [address] Logistics Assistant: Rosario Linares MD Abs.Imm.Granulocyte 0.07 k/uL Normal 0.00-0.30 [facility] Comment on above: Performed By: #### C DP, BMP #### [address] [place], [place] [address] Logistics Assistant: Rosario Linares MD Abs.Neutrophil (Seg) 8.51 k/uL High 1.50-8.10 [facility] Comment on above: Performed By: #### C DP, BMP #### [address] [place], [facility]83 Logistics Assistant: Rosario Linares MD Basophils/100 WBC (Bld) 0 % Normal 0-2 [facility] Comment on above: Performed By: #### C DP, BMP #### [facility] [address] [place] [address] Dr. [place], [facility]83 Logistics Assistant: Rosario Linares MD Eosinophils (Bld) [#/Vol] 0.11 10*3/uL Normal 0.00-0.44 [facility] Comment on above: Performed By: #### C DP, BMP #### [address] [place], [facility]83 Logistics Assistant: Rosario Linares MD Eosinophils/100 WBC (Bld) 1 % Normal 1-4 [facility] Comment on above: Performed By: #### C DP, BMP #### [facility] [address] [place] [address] Logistics Assistant: Rosario Linares MD Erythrocyte distribution width (RBC) [Ratio] 13.0 % Normal 11.8-14.4 [facility] Comment on above: Performed By: #### C DP, BMP #### [facility] [address] [place] [id number] Logistics Assistant: Rosario Linares MD Hematocrit (Bld) [Volume fraction] 36.2 % Low 36.3-47.1 [facility] Comment on above: Performed By: #### C DP, BMP #### [address] [place] [phone] Logistics Assistant: Rosario Linares MD Hemoglobin (Bld) [Mass/Vol] 12.2 g/dL Normal 11.9-15.1 [facility] Comment on above: Performed By: #### C DP, BMP #### [address] [place] [address] Logistics Assistant: Rosario Lianres MD Immature granulocytes/100 WBC (Bld) 1 % High 0 [facility] Comment on above: Performed By: #### C DP, BMP #### [address] [place], [facility]83 Logistics Assistant: Rosario Linares MD Lymphocytes (Bld) [#/Vol] 2.63 10*3/uL Normal 1.10-3.70 [facility] Comment on above: Performed By: #### C DP, BMP #### [address] [place], [place] 6592883 Logistics Assistant: Rosario Linares MD Lymphocytes/100 WBC (Bld) 22 % Low 24-43 [facility] Comment on above: Performed By: #### C DP, BMP #### [facility] [address] [place] [address] Logistics Assistant: Rosario Linares MD MCH (RBC) [Entitic mass] 29.8 pg Normal 25.2-33.5 [facility] Comment on above: Performed By: #### C DP, BMP #### [address] [place], [facility]83 Logistics Assistant: Rosario Linares MD MCHC (RBC) [Mass/Vol] 33.7 g/dL Normal 28.4-34.8 [facility] Comment on above: Performed By: #### C DP, BMP #### [address] [place] [phone] Logistics Assistant: Rosario Linares MD MCV (RBC) [Entitic vol] 88.5 fL Normal 82.6-102.9 [facility] Comment on above: Performed By: #### C DP, BMP #### [address] [place] [id number] Logistics Assistant: Rosario Linares MD Monocytes (Bld) [#/Vol] 0.44 10*3/uL Normal 0.10-1.20 [facility] Comment on above: Performed By: #### C DP, BMP #### [address] [place], [place] [address] Logistics Assistant: Rosario Linares MD Monocytes/100 WBC (Bld) 4 % Normal 3-12 [facility] Comment on above: Performed By: #### C DP, BMP #### [address] [place], [facility]83 Logistics Assistant: Rosario Linares MD Neutrophil (Seg) 72 % High 36-65 [facility] Comment on above: Performed By: #### C DP, BMP #### [address] [place], [place] 6193883 Logistics Assistant: Rosario Linares MD NRBC Automated 0.0 per 100 WBC Normal 0.0 [facility] Comment on above: Performed By: #### C DP, BMP #### [facility] [address] [place], [place] [id number] Logistics Assistant: Rosario Linares MD Platelet mean volume (Bld) [Entitic vol] 10.3 fL Normal 8.1-13.5 [facility] Comment on above: Performed By: #### C DP, BMP #### [facility] [address] [place] [address] Logistics Assistant: Rosario Linares MD Platelets (Bld) [#/Vol] 289 10*3/uL Normal 138-453 [facility] Comment on above: Performed By: #### C DP, BMP #### [facility] [address] [place] [address] Logistics Assistant: Rosario Linares MD RBC (Bld) [#/Vol] 4.09 10*6/uL Normal 3.95-5.11 [facility] Comment on above: Performed By: #### C DP, BMP #### [address] [place], [place] 575[address]15 ([address] Logistics Assistant: Rosario Linares MD WBC (Bld) [#/Vol] 11.8 10*3/uL High 3.5-11.3 [facility] Comment on above: Performed By: #### C DP, BMP #### [facility] [address] [place] [address] Logistics Assistant: Rosario Linares MD Troponinon 07-26-2023 Troponin, High Sens 6 ng/L Normal 0-14 [facility] Comment on above: Result Comment: High Sensitivity Troponin values cannot be compared with other Troponin methodologies. Performed By: #### T ROPI #### [facility] [address] [place], [place] 1803883 Logistics Assistant: Rosario Linares MD UA w/Reflex Cultureon 2023 Bilirubin, SemiQt,Ur Negative Normal NEG [facility] Comment on above: Performed By: #### C DP, BMP #### [facility] [address] [place], [place] 3282183 Logistics Assistant: Rosario Linares MD Blood, Urine Negative Normal NEG [facility] Comment on above: Performed By: #### C DP, BMP #### [facility] [address] [place], [place] 6843983 Logistics Assistant: Rosario Linares MD Clarity (U) Clear Normal CLEAR [facility] Comment on above: Performed By: #### C DP, BMP #### [facility] [address] [place], [place] 9765983 Logistics Assistant: Rosario Linares MD Color (U) Yellow Normal YEL [facility] Comment on above: Performed By: #### C DP, BMP #### [facility] [address] [place], [place] 0365083 Logistics Assistant: Rosario Linares MD Glucose Ql (U) Negative Normal NEG [facility] Comment on above: Performed By: #### C DP, BMP #### [facility] [address] [place], [place] 8328183 Logistics Assistant: Rosario Linares MD Ketones Ql (U) Negative Normal NEG [facility] Comment on above: Performed By: #### C DP, BMP #### [facility] [address] [place], [place] 4564683 Logistics Assistant: Rosario Linares MD Leukocyte esterase Test strip Ql (U) SMALL Abnormal NEG [facility] Comment on above: Performed By: #### C DP, BMP #### [facility] [address] [place], [place] 5302383 Logistics Assistant: Rosario Linares MD Nitrite,Ur Negative Normal NEG [facility] Comment on above: Performed By: #### C DP, BMP #### [facility] [address] [place], [place] 2800883 Logistics Assistant: Rosario Linares MD PH,Ur 8.0 Normal 5.0-9.0 [facility] Comment on above: Performed By: #### C DP, BMP #### [facility] [address] [place], [facility]83 Logistics Assistant: Rosario Linares MD Protein Ql (U) Negative Normal NEG [facility] [place] Comment on above: Performed By: #### C DP, BMP #### [address] [place], [facility]83 Logistics Assistant: Rosario Linares MD Spec. [place],Ur 1.015 Normal 1.010-1.020 [facility] Comment on above: Performed By: #### C DP, BMP #### [facility] [address] [place] [address] [place] [address] Logistics Assistant: Rosario Linares MD Urobilinogen,Ur Normal Normal 0.0-1.0 [place] Comment on above: Performed By: #### C DP, BMP #### [address] [place] [address] Logistics Assistant: Rosario Linares MD Urinalysis,Microon 4 Bacteria TRACE Abnormal NONE [facility] Comment on above: Performed By: #### C DP, BMP #### [facility] [address] [place], [place] 1998283 Logistics Assistant: Rosario Linares MD Epithelial cells LM Ql (Urine sed) 5 TO 10 Normal 0-25 [facility] Comment on above: Performed By: #### C DP, BMP #### [facility] [address] [place], [place] 1993283 Logistics Assistant: Rosario Linares MD Urine RBC's None Normal 0-2 [facility] Comment on above: Performed By: #### C DP, BMP #### [facility] [address] [place] [address] Logistics Assistant: Rosario Linares MD Urine WBC's 2 TO 5 Normal 0-5 [facility] Comment on above: Performed By: #### C DP, BMP #### [facility] [address] [place] [address] Logistics Assistant: Rosario Linares MD COVID/FLU/RSV RT-PCRon 06-04 SARS-CoV-2 (COVID-19) RNA DEVIN+probe Ql (Unsp spec) Negative [facility] [employer] Other COVID/FLU/RSV RT-PCR Negative [facility] [employer] Other Quick Strepon 06-04-2022 S. pyogenes Org specific cx Ql (Throat) Negative [facility] [employer] Other Quick Strep [facility] [employer] Other CBC AUTO DIFFon 01-24-2022 BASO # 0.1 103/ul Normal 0.0-0.1 [facility] Comment on above: Performed By: #### A FPTET #### [facility] [address] [place] [address] Dr. Belkys Fajardo Basophils/100 WBC (Bld) 0.3 % Normal 0.2-2.0 [facility] Comment on above: Performed By: #### A FPTET #### [facility] [address] [place] [address] Dr. Belkys Fajardo EO # 0.1 103/ul Normal 0.0-0.7 [facility] Comment on above: Performed By: #### A FPTET #### [facility] [address] [place] [address] Dr. Belkys Fajardo Eosinophils/100 WBC (Bld) 0.9 % Normal 0.9-7.0 [facility] Comment on above: Performed By: #### A FPTET #### [facility] [address] [address] [address] Belkys Fajardo Erythrocyte distribution width (RBC) [Ratio] 14.0 % Normal 11.0-15.0 [facility] Comment on above: Performed By: #### A FPTET #### [facility] [address] [place] [address] Dr. Belkys Fajardo Hematocrit (Bld) [Volume fraction] 24.8 % Critically low 36.0-48.0 [facility] Comment on above: Performed By: #### A FPTET #### [facility] [address] [place] [address] Dr. Belkys Fajardo Hemoglobin (Bld) [Mass/Vol] 8.2 g/dL Critically low 12.0-16.0 [facility] Comment on above: Performed By: #### A FPTET #### [facility] [address] [place] [address] Dr. Belkys Fajardo IG # 0.23 10e3/ul Critically high 0.00-0.03 [facility] Comment on above: Performed By: #### A FPTET #### [facility] [address] [place] [address] Dr. Belkys Fajardo IG % 1.5 % Critically high 0.0-0.5 [facility] Comment on above: Performed By: #### A FPTET #### [facility] [address] [place] [address] Dr. Belkys Fajardo LYMPH # 2.4 103/ul Normal 1.2-3.8 [facility] Comment on above: Performed By: #### A FPTET #### [facility] [address] [place] [address] Dr. Belkys Fajardo Lymphocytes/100 WBC (Bld) 15.5 % Critically low 20.5-60.0 [facility] Comment on above: Performed By: #### A FPTET #### [facility] [address] [place] [address] Dr. Belkys Fajardo MANUAL DIFF REQ NO Normal [facility] Comment on above: Performed By: #### A FPTET #### [facility] [address] [place] [address] Dr. Belkys Fajardo MCH (RBC) [Entitic mass] 28.5 pg Normal 26.7-34.0 [facility] Comment on above: Performed By: #### A FPTET #### [facility] [address] [place] [address] Dr. Belkys Fajardo MCHC (RBC) [Mass/Vol] 33.1 g/dL Normal 29.9-35.2 [facility] Comment on above: Performed By: #### A FPTET #### [facility] [address] [place] [address] Dr. Belkys Fajardo MCV (RBC) [Entitic vol] 86.1 fL Normal 81.0-99.0 [facility] Comment on above: Performed By: #### A FPTET #### [facility] [address] [place] [address] Dr. Belkys Fajardo MONO # 0.8 103/ul Normal 0.3-0.8 [facility] Comment on above: Performed By: #### A FPTET #### [facility] [address] [place] [address] Dr. Belkys Fajardo Monocytes/100 WBC (Bld) 5.4 % Normal 1.7-12.0 [facility] Comment on above: Performed By: #### A FPTET #### [facility] [address] [place] [address] Dr. Belkys Fajardo NEUT # 11.6 103/ul Critically high 1.4-6.5 [facility] Comment on above: Performed By: #### A FPTET #### [facility] [address] [place] [address] Dr. Belkys Fajardo Neutrophils/100 WBC (Bld) 76.4 % Critically high 43.0-75.0 [facility] Comment on above: Performed By: #### A FPTET #### [facility] [address] [place] [address] Dr. Belkys Fajardo Platelet mean volume (Bld) [Entitic vol] 10.2 fL Normal 9.5-13.5 [facility] Comment on above: Performed By: #### A FPTET #### [facility] [address] [place] [address] Dr. Belkys Fajardo PLT 235 103/ul Normal 150-450 [facility] Comment on above: Performed By: #### A FPTET #### [facility] [address] [place] [address] Dr. Belkys Fajardo RBC 2.88 106/ul Critically low 4.20-5.40 [facility] Comment on above: Performed By: #### A FPTET #### [facility] [address] [place] [address] Dr. Belkys Fajardo WBC 15.2 103/ul Critically high 4.0-11.0 [facility] Comment on above: Performed By: #### A FPTET #### [facility] [address] [place] [address] Dr. Belkys Fajardo CBC AUTO DIFFon 01-23-2022 BASO # 0.1 103/ul Normal 0.0-0.1 [facility] Comment on above: Performed By: #### A FPTET #### [facility] [address] [place] [address] Dr. Belkys Fajardo Basophils/100 WBC (Bld) 0.4 % Normal 0.2-2.0 [facility] Comment on above: Performed By: #### A FPTET #### [facility] [address] [place] [address] Dr. Belkys Fajardo EO # 0.1 103/ul Normal 0.0-0.7 [facility] Comment on above: Performed By: #### A FPTET #### [facility] [address] [place] [address] Dr. Belkys Fajardo Eosinophils/100 WBC (Bld) 0.5 % Critically low 0.9-7.0 [facility] Comment on above: Performed By: #### A FPTET #### [facility] [address] [place] [address] Dr. Belkys Fajardo Erythrocyte distribution width (RBC) [Ratio] 13.8 % Normal 11.0-15.0 [facility] Comment on above: Performed By: #### A FPTET #### [facility] [address] [place] [address] Dr. Belkys Fajardo Hematocrit (Bld) [Volume fraction] 32.5 % Critically low 36.0-48.0 [facility] Comment on above: Performed By: #### A FPTET #### [facility] [address] [place] [address] Dr. Belkys Fajardo Hemoglobin (Bld) [Mass/Vol] 11.0 g/dL Critically low 12.0-16.0 [facility] Comment on above: Performed By: #### A FPTET #### [facility] [address] [place] [address] Dr. Belkys Fajardo IG # 0.31 10e3/ul Critically high 0.00-0.03 [facility] Comment on above: Performed By: #### A FPTET #### [facility] [address] [place] [address] Dr. Belkys Fajardo IG % 1.6 % Critically high 0.0-0.5 [facility] Comment on above: Performed By: #### A FPTET #### [facility] [address] [place] [address] Dr. Belkys Fajardo LYMPH # 2.0 103/ul Normal 1.2-3.8 [facility] Comment on above: Performed By: #### A FPTET #### [facility] [address] [place] [address] Dr. Belkys Fajardo Lymphocytes/100 WBC (Bld) 10.2 % Critically low 20.5-60.0 [facility] Comment on above: Performed By: #### A FPTET #### [facility] [address] [place] [address] Dr. Belkys Fajardo MANUAL DIFF REQ NO Normal [facility] Comment on above: Performed By: #### A FPTET #### [facility] [address] [place], [place] [id number] Dr. Belkys Fajardo MCH (RBC) [Entitic mass] 28.4 pg Normal 26.7-34.0 [facility] Comment on above: Performed By: #### A FPTET #### [facility] [address] [place] [address] Dr. Belkys Fajardo MCHC (RBC) [Mass/Vol] 33.8 g/dL Normal 29.9-35.2 [facility] Comment on above: Performed By: #### A FPTET #### [facility] [address] [place] [address] Dr. Belkys Fajardo MCV (RBC) [Entitic vol] 83.8 fL Normal 81.0-99.0 [facility] Comment on above: Performed By: #### A FPTET #### [facility] [address] [place] [address] Dr. Belkys Fajardo MONO # 0.9 103/ul Critically high 0.3-0.8 [facility] Comment on above: Performed By: #### A FPTET #### [facility] [address] [place] [address] Dr. Belkys Fajardo Monocytes/100 WBC (Bld) 4.8 % Normal 1.7-12.0 [facility] Comment on above: Performed By: #### A FPTET #### [facility] [address] [place] [address] Dr. Belkys Fajardo NEUT # 16.0 103/ul Critically high 1.4-6.5 [facility] Comment on above: Performed By: #### A FPTET #### [facility] [address] [place] [address] Dr. Belkys Fajardo Neutrophils/100 WBC (Bld) 82.5 % Critically high 43.0-75.0 [facility] Comment on above: Performed By: #### A FPTET #### [facility] [address] [place] [address] Dr. Belkys Fajardo Platelet mean volume (Bld) [Entitic vol] 10.1 fL Normal 9.5-13.5 [facility] Comment on above: Performed By: #### A FPTET #### [facility] [address] [address] [address] Belkys Fajardo PLT 301 103/ul Normal 150-450 [facility] Comment on above: Performed By: #### A FPTET #### [facility] [address] [place], [place] [address] Dr. Belkys Fajardo RBC 3.88 106/ul Critically low 4.20-5.40 [facility] Comment on above: Performed By: #### A FPTET #### [facility] [address] [place], [place] [address] Dr. Belkys Fajardo WBC 19.3 103/ul Critically high 4.0-11.0 [facility] Comment on above: Performed By: #### A FPTET #### [facility] [address] [address] [address] Belkys Fajardo CULTURE URINEon 01-23-2022 CULTURE URINE Culture Observations : LIGHT GROWTH OF MIXED GENITAL HEYDI. NO POTENTIAL PATHOGENS SEEN. Normal [facility] Comment on above: Performed By: #### U ACSIND, UMICRO #### [facility] [address] [address] [address] Belkys Fajardo Covid-19 PCR ([facility])on 12-27 SARS-CoV-2 (COVID-19) RNA DEVIN+probe Ql (Unsp spec) Not detected Normal NOT DETECTED [facility] Comment on above: Result Comment: When diagnostic [...] for this test is supported by the [place] of Health and Human Service's declaration that [...] used). Performed By: #### C VDTBH #### [facility] [address] [place] [address] Dr. Belkys Fajardo DRUG SCREEN RAPID (URINE)on 01-23-2022 AMP Negative Normal NEGATIVE [facility] Comment on above: Performed By: #### A FPTET #### [facility] [address] [place] [address] Dr. Belkys Fajardo BAR Negative Normal NEGATIVE [facility] Comment on above: Performed By: #### A FPTET #### [facility] [address] [place] [address] Dr. Belkys Fajardo BUP Negative Normal NEGATIVE [facility] Comment on above: Performed By: #### A FPTET #### [facility] [address] [place] [address] Dr. Belkys Fajardo BZO Negative Normal NEGATIVE [facility] Comment on above: Performed By: #### A FPTET #### [facility] [address] [place] [address] Dr. Belkys Fajardo VALENCIA Negative Normal NEGATIVE [facility] Comment on above: Performed By: #### A FPTET #### [facility] [address] [place] [address] Dr. Belkys Fajardo CUT-OFFS SEE BELOW Normal [facility] Comment on above: Result Comment: AMP (Amphetamine): 500ng/mL, BAR (Barbituates): 200 ng/mL, BZO (Benzodiazepines): 150 ng/mL, BUP (Buprenorphine): 10 ng/mL, VALENCIA (Cocaine): 150 ng/mL, mAMP (Methamphetamine): 500 ng/mL, MTD (Methadone): 200 ng/mL, OPI (Opiates): 100 ng/mL, OXY (Oxycodone): 100 ng/mL, PCP (Phencyclidine): 25 ng/mL, PPX (Propoxyphene): 300 ng/mL, THC (Cannabinoids): 50 ng/mL, TCA (Trycyclic Antidepressants): 300 ng/mL Performed By: #### A FPTET #### [facility] [address] [place] [address] Dr. Belkys Fajardo DRUG CUT HEADER DRUG CLASS TEST SYSTEM CUT-OFF CONCENTRATIONS ARE FOLLOWS: Normal [facility] Comment on above: Performed By: #### A FPTET #### [facility] [address] [place] [address] Dr. Belkys Fajardo mAMP Negative Normal NEGATIVE [facility] Comment on above: Performed By: #### A FPTET #### [facility] [address] [place] [address] Dr. Belkys Fajardo MTD Negative Normal NEGATIVE [facility] Comment on above: Performed By: #### A FPTET #### [facility] [address] [place] [address] Dr. Belkys Fajardo OPI Negative Normal NEGATIVE [facility] Comment on above: Performed By: #### A FPTET #### [facility] [address] [place] [address] Dr. Belkys Fajardo OXY Negative Normal NEGATIVE [facility] Comment on above: Performed By: #### A FPTET #### [facility] [address] [place] [address] Dr. Belkys Fajardo PCP Negative Normal NEGATIVE [facility] Comment on above: Performed By: #### A FPTET #### [facility] [address] [place] [address] Dr. Belkys Fajardo PPX Negative Normal NEGATIVE [facility] Comment on above: Performed By: #### A FPTET #### [facility] [address] [place] [address] Dr. Belkys Fajardo TCA Negative Normal NEGATIVE [facility] Comment on above: Performed By: #### A FPTET #### [facility] [address] [place] [address] Dr. Belkys Fajardo THC Negative Normal NEGATIVE [facility] Comment on above: Performed By: #### A FPTET #### [facility] [address] [place] [address] Dr. Belkys Fajardo TYPE AND SCREENon 2022 TYPE AND SCREEN Negative Normal [facility] Comment on above: Performed By: #### U ACSIND, UMICRO #### [facility] [address] [address] [address] Belkys Fajardo UA (CLEAN/CATCH) DISTRIBUTION COLLECTION OPERATOR/MICRO I F IND.on 01-23-2022 Bilirubin Ql (U) Negative Normal NEGATIVE [facility] Comment on above: Performed By: #### U ACSIND, UMICRO #### [facility] [address] [address] [address] Belkys Fajardo Clarity (U) CLEAR Normal CLEAR [facility] Comment on above: Performed By: #### U ACSIND, UMICRO #### [facility] [address] [place] [address] Dr. Belkys Fajardo Color (U) LT. YELLOW Normal YELLOW [facility] Comment on above: Performed By: #### U ACSIND, UMICRO #### [facility] [address] [address] [address] Belkys Fajardo Glucose Ql (U) Negative Normal NEGATIVE [facility] Comment on above: Performed By: #### U ACSIND, UMICRO #### [facility] [address] [address] [address] Belkys Fajardo Hemoglobin Ql (U) TRACE-INTACT Abnormal NEGATIVE [facility] Comment on above: Performed By: #### U ACSIND, UMICRO #### [facility] [address] [address] [address] Belkys Fajardo Ketones Ql (U) Negative Normal NEGATIVE [facility] Comment on above: Performed By: #### U ACSIND, UMICRO #### [facility] [address] [address] [address] Belkys Fajardo LEUKOCYTES MODERATE Abnormal NEGATIVE [facility] Comment on above: Performed By: #### U ACSIND, UMICRO #### [facility] [address] [address] [address] Belkys Fajardo Nitrite Ql (U) Negative Normal NEGATIVE [facility] Comment on above: Performed By: #### U ACSIND, UMICRO #### [facility] [address] [address] [address] Belkys Fajardo pH (U) 6.5 [pH] Normal 5-9 [facility] Comment on above: Performed By: #### U ACSTAMELA, UMICRO #### [facility] [address] [address] [address] Belkys Fajardo SPEC GRAVITY 1.015 Normal 1.005-<=1.025 [facility] Comment on above: Performed By: #### U ACSTAMELA, UMICRO #### [facility] [address] [address] [address] Belkys Fajardo UA PROTEIN Negative Normal NEGATIVE/ TRACE [facility] Comment on above: Performed By: #### U ACSTAMELA UMICRO #### [facility] [address] [place] [address] Dr. Belkys Fajardo UR MICRO IND INDICATED Normal [facility] Comment on above: Performed By: #### U MARIO UMICRO #### [facility] [address] [address] [address] Belkys Fajardo Urobilinogen Qn (U) 0.2 {Jakob'U}/dL Normal 0.2 - 1. 0 [facility] Comment on above: Performed By: #### U ACSTAMELA, UMICRO #### [facility] [address] [place] [address] Dr. Belkys Fajardo URINE MICROSCOPIC ONLYon BACTERIA SMALL Abnormal NONE SEEN The [facility] Comment on above: Performed By: #### U ACSTAMELA UMICRO #### [facility] [address] [place] [address] Dr. Belkys Fajardo Bacteria identified Cx Nom (U) INDICATED Normal [facility] Comment on above: Performed By: #### U ACSTAMELA UMICRO #### [facility] [address] [place] [address] Dr. Belkys Fajardo CAST NONE SEEN Normal NONE SEEN The [facility] Comment on above: Performed By: #### U ACSTAMELA UMICRO #### [facility] [address] [place] [address] Dr. Belkys Fajardo Crystals LM Nom (Urine sed) NONE SEEN Normal NONE SEEN The [facility] Comment on above: Performed By: #### U ACSIND, UMICRO #### [facility] [address] [address] [address] Belkys Fajardo Epithelial cells LM Ql (Urine sed) FEW Abnormal NONE SEEN /RARE [facility] Comment on above: Performed By: #### U ACSIND, UMICRO #### [facility] [address] [address] [address] Belkys Fajardo MUCOUS NONE SEEN Normal NONE SEEN The [facility] Comment on above: Performed By: #### U ACSIND, UMICRO #### [facility] [address] [address] [address] Belkys Fajardo RBC NONE SEEN Abnormal 0-2 [facility] Comment on above: Performed By: #### U ACSIND, UMICRO #### [facility] [address] [address] [address] Belkys Fajardo WBC 5-10 Abnormal NONE SEEN The [facility] Comment on above: Performed By: #### U ACSIND, UMICRO #### [facility] [address] [address] [address] Belkys Fajardo US PREG GROWTHon 01-12-2022 [...] YOGI BLACK Date: 2022-01-12 21:15 Normal [facility] GROUP B STREP CULTUREon 12-26 S. agalactiae Ag Ql (Unsp spec) Culture Observations: NEGATIVE FOR GROUP B STREPTOCOCCUS. Normal The [facility] Comment on above: Performed By: #### G BSCX #### [facility] [address] [place] [address] Dr. Belkys Fajardo GTT 3 HR PREGon 12-11-2021 Glucose [Mass/Vol] 91 mg/dL Normal 74-106 [facility] Comment on above: Performed By: #### G TT3P #### [facility] [address] [place] [address] Dr. Belkys Fajardo Glucose [Mass/Vol] 172 mg/dL Normal [facility] Comment on above: Performed By: #### G TT3P #### [facility] [address] [place] [address] Dr. Belkys Fajardo Glucose [Mass/Vol] 148 mg/dL Normal [facility] Comment on above: Performed By: #### G TT3P #### [facility] [address] [place] [address] Dr. Belkys Fajardo Glucose [Mass/Vol] 58 mg/dL Normal [facility] Comment on above: Performed By: #### G TT3P #### [facility] [address] [place] [address] Dr. Belkys Fajardo US PREG GROWTHon 12-08-2021 [...] YOGI BLACK Date: 2021-12-08 16:52 Normal [facility] GLUCOSE - 1HRon 11-12-2021 Glucose [Mass/Vol] 143 mg/dL Critically high 74-106 T he [facility] Comment on above: Performed By: #### U ACSIND, UMICRO #### [facility] [address] [address] [address] Belkys Fajardo HEMOGRAM AND PLATELon 2021 Hematocrit (Bld) [Volume fraction] 31.7 % Critically low 36.0-48.0 [facility] Comment on above: Performed By: #### A FPTET #### [facility] [address] [place] [address] Dr. Belkys Fajardo Hemoglobin (Bld) [Mass/Vol] 10.4 g/dL Critically low 12.0-16.0 [facility] Comment on above: Performed By: #### A FPTET #### [facility] [address] [place] [address] Dr. Belkys Fajardo MCH (RBC) [Entitic mass] 28.8 pg Normal 26.7-34.0 [facility] Comment on above: Performed By: #### A FPTET #### [facility] [address] [place] [address] Dr. Belkys Fajardo MCHC (RBC) [Mass/Vol] 32.8 g/dL Normal 29.9-35.2 [facility] Comment on above: Performed By: #### A FPTET #### [facility] [address] [place] [address] Dr. Belkys Fajardo MCV (RBC) [Entitic vol] 87.8 fL Normal 81.0-99.0 [facility] Comment on above: Performed By: #### A FPTET #### [facility] [address] [address] [address] Belkys Fajardo PLT 261 103/ul Normal 150-450 [facility] Comment on above: Performed By: #### A FPTET #### [facility] [address] [address] [address] Belkys Fajardo RBC 3.61 106/ul Critically low 4.20-5.40 [facility] Comment on above: Performed By: #### A FPTET #### [facility] [address] [address] Dr. Belkys Fajardo WBC 11.5 103/ul Critically high 4.0-11.0 [facility] Comment on above: Performed By: #### A FPTET #### [facility] [address] [address] [address] Belkys Fajardo US PREG PLACENTAon 2 [...] by: YOGI BLACK Date: 2021-11-10 21:07 Normal [facility] US PREG PLACENTAon 2 US PREG PLACENTA EXAMINATION: US PREG PLACENTA HISTORY: Low lying placenta COMPARISON: Ultrasound anatomy 09/16/2021 FINDINGS: PLACENTA: Posterior with lower margin 2.5 cm from os. CERVIX LENGTH: 4.4 cm, closed. HEART RATE: 157 bpm OTHER: None. IMPRESSION: 1. Low-lying posterior placenta; no appreciable change compared to prior study. Electronically authenticated by: YOGI BLACK Date: 2021-10-14 19:56 Normal [facility] US PREG ANATOMY SINGLEon US PREG [...] YOGI BLACK Date: 2021-09-16 16:54 Normal [facility] AFP TETRA PROFILE (MATERNAL) on 09-06-2021 PDF . Normal [facility] Comment on above: Performed By: #### A FPTET #### [facility] [address] [address] [address] Belkys Fajardo AFP MoM 0.86 Normal [facility] Comment on above: Performed By: #### A FPTET #### [facility] [address] [address] [address] Belkys Fajardo AFP Value 39.7 ng/mL Normal [facility] Comment on above: Performed By: #### A FPTET #### [facility] [address] [address] [address] Belkys Fajardo Comment Comment Normal [facility] Comment on above: Result Comment: Geremias Greer, Ph.D., [facility] Director . References: Available Upon Request. . Multiples Of Median Cutoffs Abbreviation Definitions For AFP Elevations IDD- Insulin Dep Diabetes Granados 2.5 Black 2.8 OSBR- Open Spina Bifida IDD 2.0 Twins 4.5 Risk DSR Cutoff 1:270 DSR- Down Syndrome Risk T18 Cutoff 1:100 T18- Trisomy 18 . Down Syndrome and Trisomy 18 screening are considered Investigational . For further [facility] at [phone]. Performed By: #### A FPTET #### [facility] [address] [place] [address] Dr. Belkys Fajardo MONIE MoM 0.77 [facility] Comment on above: Performed By: #### A FPTET #### [facility] [address] [place] [address] Dr. Belkys Fajardo MONIE Value 113.50 pg/mL [facility] Comment on above: Performed By: #### A FPTET #### [facility] [address] [place] [address] Dr. Belkys Fajardo DSR (By Age) 1 IN 765 Normal [facility] Comment on above: Performed By: #### A FPTET #### [facility] [address] [place] [address] Dr. Belkys Fajardo DSR (Second Trimester) 1 [place] [address] [facility] Comment on above: Performed By: #### A FPTET #### [facility] [address] [place] [address] Dr. Belkys Gilliland Age on Collection Date 18.7 WEEKS Normal [facility] Comment on above: Performed By: #### A FPTET #### [facility] [address] [place] [address] Dr. Belkys Pablo. Age Based On LMP [facility] Comment on above: Result Comment: 03/30 Performed By: #### A FPTET #### [facility] [address] [place] [address] Dr. Belkys Fajardo hCG MoM 0.78 Normal [facility] Comment on above: Performed By: #### A FPTET #### [facility] [address] [place] [address] [place] [address] m[IU]/mL Normal [facility] Comment on above: Performed By: #### A FPTET #### [facility] [address] [place] [address] Dr. Belkys Fajardo Insulin Dep Diabetes No Normal [facility] Comment on above: Performed By: #### A FPTET #### [facility] [address] [place] [address] Dr. Belkys Fajardo Interpretation Comment Normal [facility] Comment on [...] identifies 60% of Trisomy 18 pregnancies. The [employer] [place] [employer] recommends amniocentesis be offered to women age 35 and older. Recalculations are not recommended when gestational dating by LMP and ultrasound are within 10 days. Performed By: #### A FPTET #### [facility] [address] [place] [address] Dr. Belkys Fajardo [age] Normal [facility] Comment on above: Performed By: #### A FPTET #### [facility] [address] [place] [address] Dr. Belkys Fajardo Multiple Gestation No Normal [facility] Comment on above: Performed By: #### A FPTET #### [facility] [address] [place] [address] Dr. Belkys [place]ajardo [place] 1 [place] [address] Normal [facility] Comment on above: Performed By: #### A FPTET #### [facility] [address] [place] [address] Dr. Belkys Fajardo Race Normal [facility] Comment on above: Performed By: #### A FPTET #### [facility] [address] [address] [address] Belkys Fajardo Results Report Normal [facility] Comment on above: Performed By: #### A FPTET #### [facility] [address] [address] [address] Belkys Fajardo T18 (By Age) 1:2981 Normal [facility] Comment on above: Performed By: #### A FPTET #### [facility] [address] [address] [address] Belkys Fajardo T18 Risk Not increased Normal [facility] Comment on above: Performed By: #### A FPTET #### [facility] [address] [place] [address] Dr. Belkys Fajardo Test Results: Negative Normal [facility] Comment on above: Performed By: #### A FPTET #### [facility] [address] [address] [address] Belkys Fajardo uE3 MoM 1.43 [facility] Comment on above: Performed By: #### A FPTET #### [facility] [address] [place] [address] Dr. Belkys Fajardo uE3 Value 2.26 ng/mL [facility] Comment on above: Performed By: #### A FPTET #### [facility] [address] [place] [address] Dr. Belkys Fajardo PAP ACOG PANEL 2: 21 to 29on 08-24-2021 . . Normal [facility] Comment on above: Result Comment: Perf ormed at: [facility] Performed By: #### [id number] #### [facility] [address] [place] [address] Dr. Belkys Fajardo Age Gdln ACOG Testing - [facility] Comment on above: Performed By: #### [id number] #### [facility] [address] [place] [address] Dr. Belkys Fajardo DIAGNOSIS: Comment Normal [facility] Comment on above: Result Comment: NEGA TIVE FOR INTRAEPITHELIAL LESION OR MALIGNANCY. Performed at: [facility] Performed By: #### [id number] #### [facility] [address] [place] [address] Dr. Belkys Fajardo Methodology: Comment Normal [facility] Comment on above: Result Comment: This liquid based ThinPrep(R) pap test was screened with the use of an image guided system. Performed at: WB Performed By: #### [id number] #### [facility] [address] [place] [address] Dr. Belkys Fajardo Note: Comment Normal [facility] Comment on above: Result Comment: The Pap smear is a screening test designed to aid in the detection of premalignant and malignant conditions of the uterine cervix. It is not a diagnostic procedure and should not be used as the sole means of detecting cervical cancer. Both false-positive and false-negative reports do occur. . Performed at: WB Performed By: #### [id number] #### [facility] [address] [place] [address] Dr. Belkys Fajardo Performed by: Comment Normal [facility] Comment on above: Result Comment: Vicky Avila, Human Resources Hr Representative (ASCP) Performed at: BA Performed By: #### [id number] #### [facility] [address] [place] [address] Dr. Belkys Fajardo Reflex Criteria: Comment Normal [facility] Comment on above: Result Comment: The HPV DNA reflex criteria were not met with this specimen result therefore, no HPV testing was performed. . Performed at: BA Performed By: #### [id number] #### [facility] [address] [place] [address] Dr. Belkys Fajardo Specimen adequacy: Comment Normal [facility] Comment on above: Result Comment: Sati sfactory for evaluation. No endocervical component is identified. Performed at: BA Performed By: #### [id number] #### [facility] [address] [place] [address] Dr. Belkys Fajardo CBC AUTO DIFFon 08-22-2021 BASO # 0.0 103/ul Normal 0.0-0.1 [facility] Comment on above: Performed By: #### C BC #### [facility] [address] [address] [address] Belkys Fajardo Basophils/100 WBC (Bld) 0.2 % Normal 0.2-2.0 [facility] Comment on above: Performed By: #### C BC #### [facility] [address] [address] [address] Belkys Fajardo EO # 0.2 103/ul Normal 0.0-0.7 [facility] Comment on above: Performed By: #### C BC #### [facility] [address] [address] [address] Belkys Fajardo Eosinophils/100 WBC (Bld) 1.9 % Normal 0.9-7.0 [facility] Comment on above: Performed By: #### C BC #### [facility] [address] [place] [address] Dr. Belkys Fajardo Erythrocyte distribution width (RBC) [Ratio] 13.4 % Normal 11.0-15.0 [facility] Comment on above: Performed By: #### C BC #### [facility] [address] [place] [address] Dr. Belkys Fajardo Hematocrit (Bld) [Volume fraction] 32.7 % Critically low 36.0-48.0 [facility] Comment on above: Performed By: #### C BC #### [facility] [address] [address] [address] Belkys Fajardo Hemoglobin (Bld) [Mass/Vol] 11.0 g/dL Critically low 12.0-16.0 [facility] Comment on above: Performed By: #### C BC #### [facility] [address] [address] [address] Belkys Fajardo IG # 0.05 10e3/ul Critically high 0.00-0.03 [facility] Comment on above: Performed By: #### C BC #### [facility] [address] [address] [address] Belkys Fajardo IG % 0.5 % Normal 0.0-0.5 [facility] Comment on above: Performed By: #### C BC #### [facility] [address] [place] [address] Dr. Belkys Fajardo LYMPH # 2.3 103/ul Normal 1.2-3.8 [facility] Comment on above: Performed By: #### C BC #### [facility] [address] [place] [address] Dr. Belkys Fajardo Lymphocytes/100 WBC (Bld) 22.4 % Normal 20.5-60.0 [facility] Comment on above: Performed By: #### C BC #### [facility] [address] [place] [address] Dr. Belkys Fajardo MANUAL DIFF REQ NO Normal [facility] Comment on above: Performed By: #### C BC #### [facility] [address] [place] [address] Dr. Belkys Fajardo MCH (RBC) [Entitic mass] 29.3 pg Normal 26.7-34.0 [facility] Comment on above: Performed By: #### C BC #### [facility] [address] [place] [address] Dr. Belkys Fajardo MCHC (RBC) [Mass/Vol] 33.6 g/dL Normal 29.9-35.2 [facility] Comment on above: Performed By: #### C BC #### [facility] [address] [place] [address] Dr. Belkys Fajardo MCV (RBC) [Entitic vol] 87.2 fL Normal 81.0-99.0 [facility] Comment on above: Performed By: #### C BC #### [facility] [address] [place] [address] Dr. Belkys Fajardo MONO # 0.6 103/ul Normal 0.3-0.8 [facility] Comment on above: Performed By: #### C BC #### [facility] [address] [place] [address] Dr. Belkys Fajardo Monocytes/100 WBC (Bld) 5.5 % Normal 1.7-12.0 [facility] Comment on above: Performed By: #### C BC #### [facility] [address] [place] [address] Dr. Belkys Fajardo NEUT # 7.1 103/ul Critically high 1.4-6.5 [facility] Comment on above: Performed By: #### C BC #### [facility] [address] [address] [address] Belkys Fajardo Neutrophils/100 WBC (Bld) 69.5 % Normal 43.0-75.0 [facility] Comment on above: Performed By: #### C BC #### [facility] [address] [place] [address] Dr. Belkys Fajardo Platelet mean volume (Bld) [Entitic vol] 10.3 fL Normal 9.5-13.5 [facility] Comment on above: Performed By: #### C BC #### [facility] [address] [place] [address] Dr. Belkys Fajardo PLT 258 103/ul Normal 150-450 [facility] Comment on above: Performed By: #### C BC #### [facility] [address] [place] [address] Dr. Belkys Fajardo RBC 3.75 106/ul Critically low 4.20-5.40 [facility] Comment on above: Performed By: #### C BC #### [facility] [address] [place] [address] Dr. Belkys Fajardo WBC 10.2 103/ul Normal 4.0-11.0 [facility] Comment on above: Performed By: #### C BC #### [facility] [address] [place] [address] Dr. Belkys Fajardo CTA CHEST WO W [...] ROSARIO HERNANDEZ Date: 2021-08-22 08:31 Normal [facility] Covid-19 PCR (CVDTBH)on 07-27 SARS-CoV-2 (COVID-19) RNA DEVIN+probe Ql (Unsp spec) Not detected Normal NOT DETECTED [facility] Comment on above: Result Comment: When diagnostic [...] for this test is supported by the [place] of Health and Human Service's declaration that [...] used). Performed By: #### C VDTBH #### [facility] [address] [place] [address] [address] [address] Belkys Fajardo PROF 14(COMP METB)on 022 Albumin [Mass/Vol] 3.0 g/dL Critically low 3.4-5.0 Th e [facility] Comment on above: Performed By: #### A FPTET #### [facility] [address] [place] [address] Dr. Belkys Fajardo Albumin/Globulin [Mass ratio] 0.8 {ratio} Normal [facility] Comment on above: Performed By: #### A FPTET #### [facility] [address] [place] [address] Dr. Belkys Fajardo ALP [Catalytic activity/Vol] 52 U/L Normal 46-116 [facility] Comment on above: Performed By: #### A FPTET #### [facility] [address] [place] [address] Dr. Belkys Fajardo ALT [Catalytic activity/Vol] 32 U/L Normal 14-59 [facility] Comment on above: Performed By: #### A FPTET #### [facility] [address] [place] [address] Dr. Belkys Fajardo Anion gap [Moles/Vol] 12.8 mmol/L Normal [facility] Comment on above: Performed By: #### A FPTET #### [facility] [address] [place] [address] Dr. Belkys Fajardo AST [Catalytic activity/Vol] 17 U/L Normal 15-37 [facility] Comment on above: Performed By: #### A FPTET #### [facility] [address] [place] [address] Dr. Belkys Fajardo Bilirubin [Mass/Vol] 0.3 mg/dL Normal 0.2-1.0 [facility] Comment on above: Performed By: #### A FPTET #### [facility] [address] [place] [address] Dr. Belkys Fajardo Calcium [Mass/Vol] 8.5 mg/dL Normal 8.5-10.1 [facility] Comment on above: Performed By: #### A FPTET #### [facility] [address] [place] [address] Dr. Belkys Fajardo Chloride [Moles/Vol] 103 mmol/L Normal 98-107 [facility] Comment on above: Performed By: #### A FPTET #### [facility] [address] [place] [address] Dr. Belkys Fajardo CO2 [Moles/Vol] 24.7 mmol/L Normal 21.0-32.0 [facility] Comment on above: Performed By: #### A FPTET #### [facility] [address] [place] [address] Dr. Belkys Fajardo Creatinine [Mass/Vol] 0.46 mg/dL Critically low 0.55-1.02 [facility] Comment on above: Performed By: #### A FPTET #### [facility] [address] [place] [address] Dr. Belkys Fajardo EGFR-AF CYMRO >60 Normal >=60 [facility] Comment on above: Performed By: #### A FPTET #### [facility] [address] [place] [address] Dr. Belkys Fajardo EGFR-NON AF CYMRO >60 Normal >=60 [facility] Comment on above: Performed By: #### A FPTET #### [facility] [address] [place] [address] Dr. Belkys Fajardo Globulin (S) [Mass/Vol] 3.7 g/dL Normal [facility] Comment on above: Performed By: #### A FPTET #### [facility] [address] [place] [address] Dr. Belkys Fajardo Glucose [Mass/Vol] 84 mg/dL Normal 74-106 [facility] Comment on above: Performed By: #### A FPTET #### [facility] [address] [place] [address] Dr. Belkys Fajardo Potassium [Moles/Vol] 3.5 mmol/L Normal 3.5-5.1 [facility] Comment on above: Performed By: #### A FPTET #### [facility] [address] [place] [address] Dr. Belkys Fajardo Protein [Mass/Vol] 6.7 g/dL Normal 6.4-8.2 [facility] Comment on above: Performed By: #### A FPTET #### [facility] [address] [place] [address] Dr. Belkys Fajardo Sodium [Moles/Vol] 137 mmol/L Normal 136-145 [facility] Comment on above: Performed By: #### A FPTET #### [facility] [address] [place] [address] Dr. Belkys Fajardo Urea nitrogen [Mass/Vol] 7.0 mg/dL Normal 7.0-18.0 [facility] Comment on above: Performed By: #### A FPTET #### [facility] [address] [place] [address] Dr. Belkys Fajardo Urea nitrogen/Creatinine [Mass ratio] 15.2 mg/mg Normal [facility] Comment on above: Performed By: #### A FPTET #### [facility] [address] [place] [address] Dr. Belkys Fajardo TROPONIN, HIGH SENSITIVITYon 08-22-2021 HSTROP <4.0 Normal 4.0-51.3 [facility] Comment on above: Result Comment: CUT- OFF POINTS HAVE BEEN ESTABLISHED BASED ON THE FOURTH UNIVERSAL DEFINITIONS OF MYOCARDIAL INFARCTION. THE UPPER REFERENCE LIMIT (URL) OF TROPONIN, DEFINED THE 99TH PERCENTILE OF cTnI DISTRIBUTION IN A REFERENCE POPULATION, HAS BEEN CONFIRMED THE DECISION THRESHOLD FOR MT DIAGNOSIS. Performed By: #### A FPTET #### [facility] [address] [place] [address] Dr. Belkys Fajardo CHLAMYDIA/GONOCOCCUS DEVIN (SW AB/URINE/PAPon 08-21-2021 Chlamydia trachomatis, DEVIN Negative Normal Negative [facility] Comment on above: Performed By: #### C T/NGNA #### [facility] [address] [place] [address] Dr. Belkys Fajardo Neisseria gonorrhoeae, DEVIN Negative Normal Negative [facility] Comment on above: Performed By: #### C T/NGNA #### [facility] [address] [place] [address] Dr. Belkys Fajardo VAGINITIS/VAGINOSIS DNA PROB Gab 08-20-2021 Lani species Negative Normal Negative [facility] Comment on above: Performed By: #### A FPTET #### [facility] [address] [place] [address] Dr. Belkys Fajardo Gardnerella vaginalis Negative Normal Negative [facility] Comment on above: Performed By: #### A FPTET #### [facility] [address] [address] [address] Belkys Fajardo Trichomonas vaginalis Negative Normal Negative [facility] Comment on above: Performed By: #### A FPTET #### [facility] [address] [address] [address] Belkys Fajardo Vital Signs Date Time Vital Sign Value Performing Clinician Facility 07-28-2022 10:15-0400 Body height 170.18 cm Nick Ball Other [facility] Other 07-28-2022 10:15-0400 Body mass index (BMI) [Ratio] 27.81 kg/m2 Nick Ball Other [facility] Other 07-28-2022 10:15-0400 Body weight 80.56 kg Nick Ball Other [facility] Other 07-28-2022 10:15-0400 Diastolic blood pressure 75 mm[Hg] Nick Ball Other [facility] Other 07-28-2022 10:15-0400 Systolic blood pressure 112 mm[Hg] Nick Ball Other [facility] Other 06-04-2022 17:00-0500 Body height 170.18 cm Cristal Guidry Other [facility] Other 06-04-2022 17:00-0500 Body mass index (BMI) [Ratio] 28.19 kg/m2 Cristal Guidry Other [facility] Other 06-04-2022 17:00-0500 Body temperature 97.4 [degF] Cristal Guidry Other [facility] Other 06-04-2022 17:00-0500 Body weight 81.65 kg Cristal Guidry Other [facility] Other 06-04-2022 17:00-0500 Respiratory rate 18 /min Cristal Guidry Other [facility] Other 06-04-2022 17:00-0500 SaO2% (BldA) [Mass fraction] 98 % Cristal Guidry Other [facility] Other 09-06-2021 02:05-0400 Body weight 77.[address] CHEYENNE MEADE . [facility] Comment on above: Performed By: #### AFPTET #### [facility] [address] [place] [address] Dr. Belkys Fajardo Encounters Encounter Date Encounter Type Care Provider Facility Start: 10-26-2023 End: 10-26-2023 ambulatory VALERIE DOROTEO Not Available Start: 10-18-2023 End: 10-18-2023 ambulatory VALERIE SADLER Not Available Start: 10-05-2023 End: 10-05-2023 ambulatory CHEYENNE WOLF Not Available Start: 09-21-2023 End: 09-21-2023 ambulatory CHEYENNE WOLF Not Available Start: 09-20-2023 End: 09-21-2023 Emergency department patient visit [facility] Start: 09-07-2023 End: 09-07-2023 ambulatory CHEYENNE WOLF Not Available Start: 08-24-2023 End: 08-24-2023 ambulatory CHEYENNE WOLF Not Available Start: 08-10-2023 End: 08-10-2023 ambulatory CHEYENNE WOLF Not Available Start: 07-28-2023 End: 07-30-2023 ambulatory YOGI MARQUEZ [facility] Start: 07-26-2023 End: 07-26-2023 Emergency department patient visit [facility] Start: 07-25-2023 End: 07-27-2023 [facility]ulatory [facility] Start: 07-13-2023 End: 07-13-2023 ambulatory CHEYENNE WOLF Not Available Start: 06-15-2023 End: 06-15-2023 ambulatory CHEYENNE WOLF Not Available Start: 05-16-2023 End: 05-16-2023 ambulatory CHEYENNE WOLF Not Available Start: 04-08-2023 End: 04-08-2023 ambulatory CHEYENNE WOLF Not Available Start: 07-28-2022 End: 07-28-2022 ambulatory Nick Leonardo Other [facility] Other Start: 07-28-2022 Office outpatient vi sit 15 minutes Nick Leonardo [facility] [facility] Start: 07-28-2022 Telephone encounter Nick Leonardo FP [facility] Start: 06-04-2022 End: 06-04-2022 ambulatory Cristal Guidry Other [facility] Other Start: 06-04-2022 Office outpatient ne w [...] End: 04-10-2021 Subsequent hospital visit by physician [facility] 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 [facility] EKG Comment on above: Palpitations; [...] 04/15/2021 Office Visit Cardiology Yogi Marquez MD [address] [place] [address] [facility] Start: 11-26-2020 Influenza vaccination Flu vaccine (# 1) [facility] Start: 10-08-2020 DTaP/Tdap/Td vaccine (7 - Td or Tdap) DTaP/Tdap/Td vaccine (7 - Td or Tdap) [facility] Start: 2013 Screening for malign ant neoplasm of cervix Pap smear [facility] Start: 10-30-2007 HIV screening HIV screen [facility] Start: 2004 Depression Screen Depression Screen [facility] Start: 1997 COVID-19 Vaccine (1) COVID-19 Vaccin e (1) [facility] Start: 1993 Varicella vaccine (1 of 2 - 2-dose childhood series) Varicella vaccine (1 of 2 - 2-dose childhood series) [facility] Start: 1992 Hepatitis C screening Hepatitis C [facility] Payers Date Payer Category Payer Unknown [id number] 1.2. [id number] 1992 Unknown [id number] 2.16.84 0.1.795624.3.579.2.593 1992 Unknown [id number] 2.16.84 0.1.199144.3.579.2.593 1992 Unknown [id number] 2.16.84 0.1.820903.3.579.2.593 1992 Unknown [id number] 2.16.84 0.1.448812.3.579.2.593 1992 Unknown [id number] 2.16.84 0.1.634339.3.579.2.593 1992 Unknown [id number] 2.16.84 0.1.843294.3.579.2.593 1992 Unknown [id number] 2.16.84 0.1.970725.3.579.2.593 1992 Unknown [id number] 2.16.84 0.1.404443.3.579.2.593 1992 Unknown [id number] 2.16.84 0.1.470433.3.579.2.593 1992 Unknown [id number] 2.16.84 0.1.300345.3.579.2.593 1992 Unknown [id number] 2.16.84 0.1.186905.3.579.2.593 1992 Unknown [id number] 2.16.84 0.1.882139.3.579.2.593 1992 Unknown [id number] 2.16.84 0.1.170047.3.579.2.593 1992 Unknown [id number] 2.16.8 40.1.029344.3.579.2.173 1992 Unknown [id number] 2.16.8 40.1.371443.3.579.2.173 1992 Unknown [id number] 2.16.8 40.1.467932.3.579.2.173 1992 Unknown [id number] 2.16.8 40.1.561055.3.579.2.173 1992 Unknown [id number] 2.16.84 0.1.318041.3.579.2.1259 1992 Unknown [id number] 2.16.84 0.1.101890.3.579.2.9 1992 Unknown [id number] 2.16.84 0.1.630184.3.579.2.1258 1992 Unknown [id number] 2.16.84 0.1.502465.3.579.2.9 1992 Unknown [id number] 2.16.84 0.1.591621.3.579.2.9 1992 Unknown [id number] 2.16.84 0.1.893875.3.579.2.9 1992 Unknown [id number] 2.16.84 0.1.780408.3.579.2.9 1992 Unknown [id number] 2.16.84 0.1.223664.3.579.2.1258 1992 Unknown [id number] 2.16.84 0.1.489911.3.579.2.1259 1992 Unknown [id number] 2.16.84 0.1.497972.3.579.2.9 1992 Unknown [id number] 2.16.84 0.1.050874.3.579.2.1259 1959 Unknown [id number] Social History Date Type Detail Facility Start: 08-29-2014 Tobacco smoking status NHIS Never smoked tobacco [facility] Phone: Start: 08-29-2014 Tobacco use and exposure Smokeless tobacco non-user [facility]: Start: 03-09-2021 Alcohol intake Current drinke r of alcohol (finding) [facility] Phone: Start: 03-09-2021 Alcohol intake [facility] Phone: Start: 08-29-2014 History SDOH Alcohol Comment occ. [facility] Work Phone: Start: 1992 [facility] Sex Assigned At Sex Assigned At Bir th [facility] Other Evaluation note 07-28-2022 Note Date & [...] Monitor for now may not need treatment [facility] Other Evaluation note 06-04-2022 Note Date & [...] other viral communicable diseases (ICD-10 - Z20.828) [facility] Other Clinical Note 01-23-2022 Note Date & Type Note Facility 01-23-2022 Note OPERATIVE NOTE OPERATION DATE: 02/18/2022 PROCEDURE: Repair of fourth degree perineal laceration. PREOPERATIVE DIAGNOSIS: Fourth degree perineal laceration. POSTOPERATIVE DIAGNOSIS: Fourth degree perineal laceration. ANESTHESIA: Epidural SURGEON: Cheyenne Meade D.O. [employer] BUS DRIVER: BOBO Cole URINE OUTPUT: Yellow and clear. [...] taken to recovery in stable condition. [facility] Clinical Note 01-23-2022 Note Date & Type Note Facility 01-23-2022 Note OP Note OPERATION DATE: 01/23/2022 PROCEDURE: Repair of fourth degree perineal laceration. PREOPERATIVE DIAGNOSIS: Fourth degree perineal laceration. POSTOPERATIVE DIAGNOSIS: Fourth degree perineal laceration. ANESTHESIA: Epidural SURGEON: Cheyenne Meade D.O. [employer] BUS DRIVER: BOBO Cole URINE OUTPUT: Yellow and clear. [...] taken to recovery in stable condition. [facility] Clinical Note 01-23-2022 Note Date & Type Note Facility 01-23-2022 Note OPERATIVE NOTE OPERATION DATE: 02/10/2022 PROCEDURE: Repair of fourth degree laceration. PREOPERATIVE DIAGNOSIS: Fourth degree laceration. POSTOPERATIVE DIAGNOSIS: Fourth degree laceration. ANESTHESIA: General. SURGEON: Cheyenne Meade D.O. [employer] BUS DRIVER: BOBO URINE OUTPUT: Yellow and clear. BLOOD [...] sheath and this was done in a [id number] fashion. This was performed using 3-0 Vicryl. [...] The patient tolerated this procedure well. [facility] Clinical Note 08-22-2021 Note Date & Type [...] by: DERIC VO Date: 2021-08-22 07:30 [facility] Evaluation note Note Date & Type Note Facility Evaluation note Diagnosis Palpitations Post-COVID chronic palpitations Shortness of breath Lightheaded Dizziness and giddiness Dizziness Dizziness and giddiness documented in this encounter [facility]: Evaluation note Note Date & Type Note Facility Evaluation note No Information [email or web address] Other History general Narrative - Reported Note Date & Type Note Facility History general Narrative - Reported Type Medical History POTS Medical History sinus tachycardia Surgical History 4th degree vaginal tear after g iving 2021 [facility] Other History general Narrative - Reported Note Date & Type Note Facility History general Narrative - Reported Type Medical History POTS Medical History sinus tachycardia Medical History Anxiety, generalized Surgical History 4th degree vaginal t ear after giving 2021 Surgical History MASTOPEXY OF BOTH BR EASTS WITH INSERTION OF SALINE IMPLANTS Hospitalization History SEE SURGICAL HX [facility] Other Reason for Referral Specialty Diagnoses / Procedures Referred By Willy smith Referred To Contact Cardiology Diagnoses Palpitations Post-COVID chronic palpitations Shortness of breath Lightheaded Dizziness Procedures Holter Monitor 24 Hour Yogi Marquez MD [address] [place] [id number] Referral ID Status Reason Start Date Expiration Date Visits Re quested Visits Authorized [id number] Open 03/09/2021 03/09/2022 1 1 Advance Directives No Advanced Directives Records FoundDocuments on File Type Date Recorded Patient Sanitarian Expl anation ACP-Advance Directive ACP-Power of Callisthenics Instructor Summary Purpose Family History No Family History Records FoundNo Family History Records FoundNo Family History Records Found Additional Source Comments Reason for Visit (unrecogniz ed section and content) Specialty Diagnoses / Procedures Referred By Willy smith Referred To Contact Cardiology Diagnoses Palpitations Post-COVID chronic palpitations Shortness of breath Lightheaded Dizziness Procedures Holter Monitor 24 Hour Yogi Marquez MD [address] [place] [address] Referral ID Status Reason Start Date Expiration Date Visits Re quested Visits Authorized [id number] Open 03/09/2021 03/09/2022 1 1 Care Teams (unrecognized sec tion and content) Supervisor Type Bar And Segment Relationship Specialty Start Date End Date JordenNick, [address] [place] [address] PCP - General Internal Medicine 03/09/21 INFORMATION SOURCE (unrecogn ized section and content) DATE CREATED AUTHOR 07/01/2022 [facility] DATE CREATED AUTHOR AUTHOR'S ORGANIZ ATION 09/22/2023 [facility] DATE CREATED AUTHOR AUTHOR'S ORGANIZ ATION 2023 [facility] FOR RECORDS PERTAINING [...] BE BASED ON THE PRIMARY CLINICAL RECORDS. [facility] [employer] [facility]. provides no warranty or guarantee of the accuracy or completeness of information in this document.
[2023-11-05 08:27] VITALS: BP 114/73; PULSE 96
== END 2023-11-05 08:54 | disposition home or self-care (01) ==
LOC: FBCO 06:36 → FBC 08:17
PROVIDERS: PCP Family Medicine; Visit Provider Obstetrics & Gynecology
DX: O26.893 Other specified pregnancy related conditions, third trimester (principal)
CPT/HCPCS: 59025

== ENCOUNTER 2023-11-09 07:02 | Outpatient (OUT) | payer OTHER, SELFPAY ==
--- OUTSIDE RECORDS SUMMARY | 2023-11-09 07:04 | XMS_ITS | CCD ---
Author Organization [facility] Care Team Providers Care Home Improvement Advisor Name Role Phone Nick Leonardo DO Primary [...] DE LEON, LIS A Primary Care Unavailable WOLFCHEYENNE OLGUIN Attending Unavailable CHEYENNE MEADE Attending Unavailable CHEYENNE MEADE Attending Unavailable CHEYENNE MEADE Attending Unavailable CHEYENNE MEADE Attending Unavailable WOLFCHEYENNE Attending Unavailable WOLF, CHEYENNE Attending Unavailable WOLF, CHEYENNE Attending Unavailable VALERIE SADLER Attending Unavailable VALERIE SADLER Attending Unavailable WOLF, CHEYENNE Attending Unavailable Medications [...] Cayla Thornton MD 09/21/23 Final result Normal [place] CBC with Diffon 09-20-2023 Abs. Basophil 0.05 k/uL Normal 0.00-0.20 [facility] Comment on above: Performed By: #### C DP, PT, MG #### [address] [place] [address] Mat Inspector: Rosario Linares MD Abs.Imm.Granulocyte 0.20 k/uL Normal 0.00-0.30 [place] Comment on above: Performed By: #### C DP, PT, MG #### [address] [place] [address] Mat Inspector: Rosario Linares MD Abs.Neutrophil (Seg) 9.90 k/uL High 1.50-8.10 [place] Comment on above: Performed By: #### C DP, PT, MG #### [address] [place] [place] [address] Mat Inspector: Rosario Linares MD Basophils/100 WBC (Bld) 0 % Normal 0-2 [place] Comment on above: Performed By: #### C DP, PT, MG #### [address] [place] [place] [address] Mat Inspector: Rosario Linares MD Eosinophils (Bld) [#/Vol] 0.15 10*3/uL Normal 0.00-0.44 [place] Comment on above: Performed By: #### C DP, PT, MG #### [address] [place] [place] [address] Mat Inspector: Rosario Linares MD Eosinophils/100 WBC (Bld) 1 % Normal 1-4 [place] Comment on above: Performed By: #### C DP, PT, MG #### [address] [place], [place] [id number] Mat Inspector: Rosario Linares MD Erythrocyte distribution width (RBC) [Ratio] 12.8 % Normal 11.8-14.4 [place] Comment on above: Performed By: #### C DP, PT, MG #### [facility] [address] [place], [facility] Mat Inspector: Rosario Linares MD Hematocrit (Bld) [Volume fraction] 32.7 % Low 36.3-47.1 [place] Comment on above: Performed By: #### C DP, PT, MG #### [facility] [address] [place] [address] Mat Inspector: Rosario Linares MD Hemoglobin (Bld) [Mass/Vol] 11.3 g/dL Low 11.9-15.1 [place] Comment on above: Performed By: #### C DP, PT, MG #### [facility] [address] [place] [address] Dr. [place], [place] [address] Mat Inspector: Rosario Linares MD Immature granulocytes/100 WBC (Bld) 2 % High 0 [place] Comment on above: Performed By: #### C DP, PT, MG #### [address] Chen, [facility] Mat Inspector: Rosario Linares MD Lymphocytes (Bld) [#/Vol] 2.23 10*3/uL Normal 1.10-3.70 [place] Comment on above: Performed By: #### C DP, PT, MG #### [facility] [address] [place], [facility] Mat Inspector: Rosario Linares MD Lymphocytes/100 WBC (Bld) 17 % Low 24-43 [place] Comment on above: Performed By: #### C DP, PT, MG #### [facility] [address] [place], [facility] Mat Inspector: Rosario Linares MD MCH (RBC) [Entitic mass] 29.7 pg Normal 25.2-33.5 [place] Comment on above: Performed By: #### C DP, PT, MG #### [facility] [address] [place] [address] Dr. [place], [place] [id number] Mat Inspector: Rosario Linares MD MCHC (RBC) [Mass/Vol] 34.6 g/dL Normal 28.4-34.8 [place] Comment on above: Performed By: #### C DP, PT, MG #### [address] [place], [place] 9242883 Mat Inspector: Rosario Linares MD MCV (RBC) [Entitic vol] 85.8 fL Normal 82.6-102.9 [place] Comment on above: Performed By: #### C DP, PT, MG #### [address] [place], [place] [id number] Mat Inspector: Rosario Linares MD Monocytes (Bld) [#/Vol] 0.72 10*3/uL Normal 0.10-1.20 [place] Comment on above: Performed By: #### C DP, PT, MG #### [address] [place], [place] [id number] Mat Inspector: Rosario Linares MD Monocytes/100 WBC (Bld) 5 % Normal 3-12 [place] Comment on above: Performed By: #### C DP, PT, MG #### [facility] [address] [place] [address] [place] [address] Mat Inspector: Rosario Linares MD Neutrophil (Seg) 75 % High 36-65 [facility] Comment on above: Performed By: #### C DP, PT, MG #### [facility] [address] [place], [place] [id number] Mat Inspector: Rosario Linares MD NRBC Automated 0.0 per 100 WBC Normal 0.0 [place] Comment on above: Performed By: #### C DP, PT, MG #### [facility] [address] [place], [place] [id number] Mat Inspector: Rosario Linares MD Platelet mean volume (Bld) [Entitic vol] 10.2 fL Normal 8.1-13.5 [place] Comment on above: Performed By: #### C DP, PT, MG #### [address] [place], [place] [id number] Mat Inspector: Rosario Linares MD Platelets (Bld) [#/Vol] 293 10*3/uL Normal 138-453 [place] Comment on above: Performed By: #### C DP, PT, MG #### [address] [place], [place] [id number] Mat Inspector: Rosario Linares MD RBC (Bld) [#/Vol] 3.81 10*6/uL Low 3.95-5.11 [place] Comment on above: Performed By: #### C DP, PT, MG #### [address] [place], [place] 1869083 Mat Inspector: Rosario Linares MD WBC (Bld) [#/Vol] 13.3 10*3/uL High 3.5-11.3 [place] Comment on above: Performed By: #### C DP, PT, MG #### [address] [place], [place] 1728283 Mat Inspector: Rosario Linares MD Comp Metabolic Profon 2023 Albumin [Mass/Vol] 3.5 g/dL Normal 3.5-5.2 [place] Comment on above: Performed By: #### C P #### [address] [place], [place] 7377483 Mat Inspector: Rosario Linares MD Albumin/Glob Ratio 1.1 Normal 1.0-2.5 [place] Comment on above: Performed By: #### C P #### [facility] [address] [place], [place] [id number] Mat Inspector: Rosario Linares MD Alkaline Phos 103 U/L Normal 35-104 [facility] Comment on above: Performed By: #### C P #### [facility] [address] [place], [place] 9521683 Mat Inspector: Rosario Linares MD ALT [Catalytic activity/Vol] 16 U/L Normal 5-33 [place] Comment on above: Performed By: #### C P #### [facility] [address] [place], [place] 2569983 Mat Inspector: Rosario Linares MD Anion gap [Moles/Vol] 10 mmol/L Normal 9-17 [place] Comment on above: Performed By: #### C P #### [facility] [address] [place], [place] 7384883 Mat Inspector: Rosario Linares MD AST [Catalytic activity/Vol] 16 U/L Normal <32 [place] Comment on above: Performed By: #### C P #### [facility] [address] [place], [place] [id number] Mat Inspector: Rosario Linares MD Bilirubin [Mass/Vol] 0.2 mg/dL Low 0.3-1.2 [place] Comment on above: Performed By: #### C P #### [facility] [address] [place], [place] 1217583 Mat Inspector: Rosario Linares MD BUN/CRE Ratio 18 Normal 9-20 [facility] Comment on above: Performed By: #### C P #### [facility] [address] [place], [place] 1223983 Mat Inspector: Rosario Linares MD Calcium [Mass/Vol] 8.4 mg/dL Low 8.6-10.4 [place] Comment on above: Performed By: #### C P #### [facility] [address] [place] [address] Mat Inspector: Rosario Linares MD Chloride [Moles/Vol] 101 mmol/L Normal 98-107 [place] Comment on above: Performed By: #### C P #### [facility] [address] [place] [address] Mat Inspector: Rosario Linares MD CO2 [Moles/Vol] 22 mmol/L Normal 20-31 [facility] Comment on above: Performed By: #### C P #### [facility] [address] [place] [address] Mat Inspector: Rosario Linares MD Creatinine [Mass/Vol] 0.4 mg/dL Low 0.5-0.9 [place] Comment on above: Performed By: #### C P #### [facility] [address] [place] [address] Mat Inspector: Rosario Linares MD GFR/1.73 sq M.predicted among non-blacks MDRD (S/P/Bld) [Vol rate/Area] mL/min/{1.73_m2} Normal >60 [place] Comment on above: Result Comment: These results [...] secretion. Performed By: #### C P #### [facility] [address] [place] [address] Mat Inspector: Rosario Linares MD Glucose [Mass/Vol] 89 mg/dL Normal 70-99 [place] Comment on above: Performed By: #### C P #### [facility] [address] [place] [address] Mat Inspector: Rosario Linares MD Potassium [Moles/Vol] 3.7 mmol/L Normal 3.7-5.3 [place] Comment on above: Performed By: #### C P #### [facility] [address] [place] [id number] Mat Inspector: Rosario Linares MD Protein [Mass/Vol] 6.7 g/dL Normal 6.4-8.3 [place] Comment on above: Performed By: #### C P #### [facility] [address] [place], [place] 2667683 Mat Inspector: Rosario Linares MD Sodium [Moles/Vol] 133 mmol/L Low 135-144 [place] Comment on above: Performed By: #### C P #### [facility] [address] [place] [address] Mat Inspector: Rosario Linares MD Urea nitrogen [Mass/Vol] 7 mg/dL Normal 6-20 [place] Comment on above: Performed By: #### C P #### [facility] [address] [place] [address] Dr. [place], [place] [id number] Mat Inspector: Rosario Linares MD D-Dimer Teston 09-20-2023 D-Dimer Test 1.32 ug/mL FEU High 0.00-0.59 [facility] Comment on [...] DVT. Performed By: #### D PATI #### [address] [place] [address] Mat Inspector: Rosario Linares MD Magnesiumon 09-20-2023 Magnesium [Mass/Vol] 1.8 mg/dL Normal 1.6-2.6 [place] Comment on above: Performed By: #### C DP, PT, MG #### [address] [place] [address] Mat Inspector: Rosario Linares MD PTon 09-20-2023 INR Coag (PPP) [Relative time] 1.0 {INR} Normal [place] Comment on above: Result Comment: Therapeutic Range: Moderate Anticoagulant Intensity: INR = 2.0-3.0 High Anticoagulant Intensity: INR = 2.5-3.5 Performed By: #### C DP, PT, MG #### [address] [place] [address] Mat Inspector: Rosario Linares MD PT Coag (PPP) [Time] 12.8 s Normal 11.7-14.1 [place] Comment on above: Performed By: #### C DP, PT, MG #### [address] [place] [address] Mat Inspector: Rosario Linares MD Thyroid Stim. Horm.on 2023 Thyroid Stim. Horm. 2.11 uIU/mL Normal 0.30-5.00 [facility] Comment on above: Performed By: #### T SH #### [facility] [address] [place] [address] Mat Inspector: Rosario Linares MD Troponinon 09-20-2023 Troponin, High Sens <6 Normal 0-14 [place] Comment on above: Result Comment: High Sensitivity Troponin values cannot be compared with other Troponin methodologies. Performed By: #### T ROPI #### [facility] [address] [place], [place] [id number] Mat Inspector: Rosario Linares MD Basic Metabolic Profon 07-25 Anion gap [Moles/Vol] 13 mmol/L Normal 9-17 [place] Comment on above: Performed By: #### C DP, BMP #### [facility] [address] [place], [place] 9261883 Mat Inspector: Rosario Linares MD BUN/CRE Ratio 18 Normal 9-20 [facility] Comment on above: Performed By: #### C DP, BMP #### [facility] [address] [place], [place] [id number] Mat Inspector: Rosario Linares MD Calcium [Mass/Vol] 8.7 mg/dL Normal 8.6-10.4 [place] Comment on above: Performed By: #### C DP, BMP #### [facility] [address] [place], [place] 6445683 Mat Inspector: Rosario Linares MD Chloride [Moles/Vol] 100 mmol/L Normal 98-107 [place] Comment on above: Performed By: #### C DP, BMP #### [facility] [address] [place] [address] Mat Inspector: Rosario Linares MD CO2 [Moles/Vol] 21 mmol/L Normal 20-31 [facility] Comment on above: Performed By: #### C DP, BMP #### [facility] [address] [place] [address] Mat Inspector: Rosario Linares MD Creatinine [Mass/Vol] 0.4 mg/dL Low 0.5-0.9 [place] Comment on above: Performed By: #### C DP, BMP #### [facility] [address] [place] [address] Mat Inspector: Rosario Linares MD GFR/1.73 sq M.predicted among non-blacks MDRD (S/P/Bld) [Vol rate/Area] mL/min/{1.73_m2} Normal >60 [place] Comment on above: Result Comment: These results [...] Performed By: #### C DP, BMP #### [facility] [address] [place] [address] [place] [address] Mat Inspector: Rosario Linares MD Glucose [Mass/Vol] 115 mg/dL High 70-99 [place] Comment on above: Performed By: #### C DP, BMP #### [facility] [address] [place] [address] Mat Inspector: Rosario Linares MD Potassium [Moles/Vol] 3.4 mmol/L Low 3.7-5.3 [place] Comment on above: Performed By: #### C DP, BMP #### [facility] [address] [place] [address] Mat Inspector: Rosario Linares MD Sodium [Moles/Vol] 134 mmol/L Low 135-144 [place] Comment on above: Performed By: #### C DP, BMP #### [facility] [address] [place] [address] Mat Inspector: Rosario Linares MD Urea nitrogen [Mass/Vol] 7 mg/dL Normal 6-20 [place] Comment on above: Performed By: #### C DP, BMP #### [facility] [address] [place] [address] Mat Inspector: Rosario Linares MD CBC with Diffon 07-26-2023 Abs. Basophil 0.04 k/uL Normal 0.00-0.20 [facility] Comment on above: Performed By: #### C DP, BMP #### [address] [place], [facility] Mat Inspector: Rosario Linares MD Abs.Imm.Granulocyte 0.07 k/uL Normal 0.00-0.30 [place] Comment on above: Performed By: #### C DP, BMP #### [address] [place], [facility] Mat Inspector: Rosario Linares MD Abs.Neutrophil (Seg) 8.51 k/uL High 1.50-8.10 [place] Comment on above: Performed By: #### C DP, BMP #### [address] [place] [address] Mat Inspector: Rosario Linares MD Basophils/100 WBC (Bld) 0 % Normal 0-2 [place] Comment on above: Performed By: #### C DP, BMP #### [facility] [address] [place], [place] [id number] Mat Inspector: Rosario Linares MD Eosinophils (Bld) [#/Vol] 0.11 10*3/uL Normal 0.00-0.44 [place] Comment on above: Performed By: #### C DP, BMP #### [facility] [address] [place] [address] [place] [address] Mat Inspector: Rosario Linares MD Eosinophils/100 WBC (Bld) 1 % Normal 1-4 [place] Comment on above: Performed By: #### C DP, BMP #### [facility] [address] [place], [place] [id number] Mat Inspector: Rosario Linares MD Erythrocyte distribution width (RBC) [Ratio] 13.0 % Normal 11.8-14.4 [place] Comment on above: Performed By: #### C DP, BMP #### [facility] [address] [place], [place] 9692383 Mat Inspector: Rosario Linares MD Hematocrit (Bld) [Volume fraction] 36.2 % Low 36.3-47.1 [place] Comment on above: Performed By: #### C DP, BMP #### [address] [place], [facility] Mat Inspector: Rosario Linares MD Hemoglobin (Bld) [Mass/Vol] 12.2 g/dL Normal 11.9-15.1 [place] Comment on above: Performed By: #### C DP, BMP #### [address] [place], [place] 5154683 Mat Inspector: Rosario Linares MD Immature granulocytes/100 WBC (Bld) 1 % High 0 [place] Comment on above: Performed By: #### C DP, BMP #### [facility] [address] [place] [address] Dr. [place], [facility] Mat Inspector: Rosario Linares MD Lymphocytes (Bld) [#/Vol] 2.63 10*3/uL Normal 1.10-3.70 [place] Comment on above: Performed By: #### C DP, BMP #### [address] [place] [address] Mat Inspector: Rosario Linares MD Lymphocytes/100 WBC (Bld) 22 % Low 24-43 [place] Comment on above: Performed By: #### C DP, BMP #### [facility] [address] [place] [address] Mat Inspector: Rosario Linares MD MCH (RBC) [Entitic mass] 29.8 pg Normal 25.2-33.5 [place] Comment on above: Performed By: #### C DP, BMP #### [facility] [address] [place] [address] Mat Inspector: Rosario Linares MD MCHC (RBC) [Mass/Vol] 33.7 g/dL Normal 28.4-34.8 [place] Comment on above: Performed By: #### C DP, BMP #### [facility] [address] [place] [address] Mat Inspector: Rosario Linares MD MCV (RBC) [Entitic vol] 88.5 fL Normal 82.6-102.9 [place] Comment on above: Performed By: #### C DP, BMP #### [facility] [address] [place] [address] Mat Inspector: Rosario Linares MD Monocytes (Bld) [#/Vol] 0.44 10*3/uL Normal 0.10-1.20 [place] Comment on above: Performed By: #### C DP, BMP #### [facility] [address] [place] [address] Mat Inspector: Rosario Linares MD Monocytes/100 WBC (Bld) 4 % Normal 3-12 [place] Comment on above: Performed By: #### C DP, BMP #### [facility] [address] [place] [address] Mat Inspector: Rosario Linares MD Neutrophil (Seg) 72 % High 36-65 [facility] Comment on above: Performed By: #### C DP, BMP #### [facility] [address] [place] [address] Mat Inspector: Rosario Linares MD NRBC Automated 0.0 per 100 WBC Normal 0.0 [place] Comment on above: Performed By: #### C DP, BMP #### [facility] [address] [place], [place] [id number] Mat Inspector: Rosario Linares MD Platelet mean volume (Bld) [Entitic vol] 10.3 fL Normal 8.1-13.5 [place] Comment on above: Performed By: #### C DP, BMP #### [facility] [address] [place], [place] [id number] Mat Inspector: Rosario Linares MD Platelets (Bld) [#/Vol] 289 10*3/uL Normal 138-453 [place] Comment on above: Performed By: #### C DP, BMP #### [facility] [address] [place], [place] 3906983 Mat Inspector: Rosario Linares MD RBC (Bld) [#/Vol] 4.09 10*6/uL Normal 3.95-5.11 [place] Comment on above: Performed By: #### C DP, BMP #### [facility] [address] [place], [place] 6263783 Mat Inspector: Rosario Linares MD WBC (Bld) [#/Vol] 11.8 10*3/uL High 3.5-11.3 [place] Comment on above: Performed By: #### C DP, BMP #### [facility] [address] [place], [place] 1706483 Mat Inspector: Rosario Linares MD Troponinon 07-26-2023 Troponin, High Sens 6 ng/L Normal 0-14 [place] Comment on above: Result Comment: High Sensitivity Troponin values cannot be compared with other Troponin methodologies. Performed By: #### T ROPI #### [facility] [address] [place] [address] Mat Inspector: Rosario Linares MD UA w/Reflex Cultureon 2023 Bilirubin, SemiQt,Ur Negative Normal NEG [place] Comment on above: Performed By: #### C DP, BMP #### [facility] [address] [place] [address] Mat Inspector: Rosario Linares MD Blood, Urine Negative Normal NEG [place] Comment on above: Performed By: #### C DP, BMP #### [facility] [address] [place] [address] Mat Inspector: Rosario Linares MD Clarity (U) Clear Normal CLEAR [place] Comment on above: Performed By: #### C DP, BMP #### [facility] [address] [place] [address] Mat Inspector: Rosario Linares MD Color (U) Yellow Normal YEL [place] Comment on above: Performed By: #### C DP, BMP #### [facility] [address] [place] [address] Mat Inspector: Rosario Linares MD Glucose Ql (U) Negative Normal NEG [facility] Comment on above: Performed By: #### C DP, BMP #### [facility] [address] [place] [address] Mat Inspector: Rosario Linares MD Ketones Ql (U) Negative Normal NEG [facility] Comment on above: Performed By: #### C DP, BMP #### [facility] [address] [place] [address] Mat Inspector: Rosario Linares MD Leukocyte esterase Test strip Ql (U) SMALL Abnormal NEG [place] Comment on above: Performed By: #### C DP, BMP #### [facility] [address] [place], [place] 1773483 Mat Inspector: Rosario Linares MD Nitrite,Ur Negative Normal NEG [place] Comment on above: Performed By: #### C DP, BMP #### [facility] [address] [place] [address] Dr. [place], [place] 1401983 Mat Inspector: Rosario Linares MD PH,Ur 8.0 Normal 5.0-9.0 [place] Comment on above: Performed By: #### C DP, BMP #### [facility] [address] [place], [facility] Mat Inspector: Rosario Linares MD Protein Ql (U) Negative Normal NEG [facility] Comment on above: Performed By: #### C DP, BMP #### [address] [place], [facility] Mat Inspector: Rosario Linares MD Spec. [place],Ur 1.015 Normal 1.010-1.020 [facility] Comment on above: Performed By: #### C DP, BMP #### [facility] [address] [place] [address] Dr. [place], [place] [id number] Mat Inspector: Rosario Linares MD Urobilinogen,Ur Normal Normal 0.0-1.0 [facility] Comment on above: Performed By: #### C DP, BMP #### [address] [place], [place] 1297683 Mat Inspector: Rosario Linares MD Urinalysis,Microon 4 Bacteria TRACE Abnormal NONE [place] Comment on above: Performed By: #### C DP, BMP #### [facility] [address] [place] [address] Dr. [place], [place] 5506683 Mat Inspector: Rosario Linares MD Epithelial cells LM Ql (Urine sed) 5 TO 10 Normal 0-25 [place] Comment on above: Performed By: #### C DP, BMP #### [facility] [address] [place] [address] Dr. [place], [facility] Mat Inspector: Rosario Linares MD Urine RBC's None Normal 0-2 [place] Comment on above: Performed By: #### C DP, BMP #### [facility] [address] [place] [address] Mat Inspector: Rosario Linares MD Urine WBC's 2 TO 5 Normal 0-5 [place] Comment on above: Performed By: #### C DP, BMP #### [facility] [address] [place] [address] Mat Inspector: Rosario Linares MD COVID/FLU/RSV RT-PCRon 06-049 SARS-CoV-2 (COVID-19) RNA DEVIN+probe Ql (Unsp spec) Negative [facility] [employer] Other COVID/FLU/RSV RT-PCR Negative [facility] [employer] Other Quick Strepon 06-04-2022 S. pyogenes Org specific cx Ql (Throat) Negative [facility] [employer] Other Quick Strep [facility] [employer] Other CBC AUTO DIFFon 01-24-2022 BASO # 0.1 103/ul Normal 0.0-0.1 [facility] Comment on above: Performed By: #### A FPTET #### [facility] [address] [place] [address] Dr. Belkys Fajardo Basophils/100 WBC (Bld) 0.3 % Normal 0.2-2.0 [facility] Comment on above: Performed By: #### A FPTET #### [facility] [address] [place] [address] [address] Belkys Fajardo EO # 0.1 103/ul Normal 0.0-0.7 [facility] Comment on above: Performed By: #### A FPTET #### [facility] [address] [place] [address] [address] Belkys Fajardo Eosinophils/100 WBC (Bld) 0.9 % Normal 0.9-7.0 [facility] Comment on above: Performed By: #### A FPTET #### [facility] [address] [address] [address] Belkys Fajardo Erythrocyte distribution width (RBC) [Ratio] 14.0 % Normal 11.0-15.0 [facility] Comment on above: Performed By: #### A FPTET #### [facility] [address] [place] [address] Dr. Belkys Fajardo Hematocrit (Bld) [Volume fraction] 24.8 % Critically low 36.0-48.0 [facility] Comment on above: Performed By: #### A FPTET #### [facility] [address] [place] [address] Dr. Belkys Fajardo Hemoglobin (Bld) [Mass/Vol] 8.2 g/dL Critically low 12.0-16.0 [facility] Comment on above: Performed By: #### A FPTET #### [facility] [address] [place] [address] Dr. Belkys Fajardo IG # 0.23 10e3/ul Critically high 0.00-0.03 [facility] Comment on above: Performed By: #### A FPTET #### [facility] [address] [place] [address] Dr. Belkys Fajardo IG % 1.5 % Critically high 0.0-0.5 [facility] Comment on above: Performed By: #### A FPTET #### [facility] [address] [place] [address] Dr. Belkys Fajardo LYMPH # 2.4 103/ul Normal 1.2-3.8 [facility] Comment on above: Performed By: #### A FPTET #### [facility] [address] [place] [address] Dr. Belkys Fajardo Lymphocytes/100 WBC (Bld) 15.5 % Critically low 20.5-60.0 [facility] Comment on above: Performed By: #### A FPTET #### [facility] [address] [place] [address] Dr. Belkys Fajardo MANUAL DIFF REQ NO Normal [facility] Comment on above: Performed By: #### A FPTET #### [facility] [address] [place] [address] Dr. Belkys Fajardo MCH (RBC) [Entitic mass] 28.5 pg Normal 26.7-34.0 [facility] Comment on above: Performed By: #### A FPTET #### [facility] [address] [place] [address] Dr. Belkys Fajardo MCHC (RBC) [Mass/Vol] 33.1 g/dL Normal 29.9-35.2 [facility] Comment on above: Performed By: #### A FPTET #### [facility] [address] [place] [address] Dr. Belkys Fajardo MCV (RBC) [Entitic vol] 86.1 fL Normal 81.0-99.0 [facility] Comment on above: Performed By: #### A FPTET #### [facility] [address] [place] [address] Dr. Belkys Fajardo MONO # 0.8 103/ul Normal 0.3-0.8 [facility] Comment on above: Performed By: #### A FPTET #### [facility] [address] [place] [address] Dr. Belkys Fajardo Monocytes/100 WBC (Bld) 5.4 % Normal 1.7-12.0 [facility] Comment on above: Performed By: #### A FPTET #### [facility] [address] [place] [address] Dr. Belkys Fajardo NEUT # 11.6 103/ul Critically high 1.4-6.5 [facility] Comment on above: Performed By: #### A FPTET #### [facility] [address] [place] [address] Dr. Belkys Fajardo Neutrophils/100 WBC (Bld) 76.4 % Critically high 43.0-75.0 [facility] Comment on above: Performed By: #### A FPTET #### [facility] [address] [place] [address] Dr. Belkys Fajardo Platelet mean volume (Bld) [Entitic vol] 10.2 fL Normal 9.5-13.5 [facility] Comment on above: Performed By: #### A FPTET #### [facility] [address] [place] [address] Dr. Belkys Fajardo PLT 235 103/ul Normal 150-450 [facility] Comment on above: Performed By: #### A FPTET #### [facility] [address] [place] [address] Dr. Belkys Fajardo RBC 2.88 106/ul Critically low 4.20-5.40 [facility] Comment on above: Performed By: #### A FPTET #### [facility] [address] [place] [address] Dr. Belkys Fajardo WBC 15.2 103/ul Critically high 4.0-11.0 [facility] Comment on above: Performed By: #### A FPTET #### [facility] [address] [place] [address] Dr. Belkys Fajardo CBC AUTO DIFFon 01-23-2022 BASO # 0.1 103/ul Normal 0.0-0.1 [facility] Comment on above: Performed By: #### A FPTET #### [facility] [address] [place] [address] Dr. Belkys Fajardo Basophils/100 WBC (Bld) 0.4 % Normal 0.2-2.0 [facility] Comment on above: Performed By: #### A FPTET #### [facility] [address] [place] [address] Dr. Belkys Fajardo EO # 0.1 103/ul Normal 0.0-0.7 [facility] Comment on above: Performed By: #### A FPTET #### [facility] [address] [place] [address] Dr. Belkys Fajardo Eosinophils/100 WBC (Bld) 0.5 % Critically low 0.9-7.0 [facility] Comment on above: Performed By: #### A FPTET #### [facility] [address] [place] [address] Dr. Belkys Fajardo Erythrocyte distribution width (RBC) [Ratio] 13.8 % Normal 11.0-15.0 [facility] Comment on above: Performed By: #### A FPTET #### [facility] [address] [place] [address] Dr. Belkys Fajardo Hematocrit (Bld) [Volume fraction] 32.5 % Critically low 36.0-48.0 [facility] Comment on above: Performed By: #### A FPTET #### [facility] [address] [place] [address] Dr. Belkys Fajardo Hemoglobin (Bld) [Mass/Vol] 11.0 g/dL Critically low 12.0-16.0 [facility] Comment on above: Performed By: #### A FPTET #### [facility] [address] [place] [address] Dr. Belkys Fajardo IG # 0.31 10e3/ul Critically high 0.00-0.03 [facility] Comment on above: Performed By: #### A FPTET #### [facility] [address] [place] [address] Dr. Belkys Fajardo IG % 1.6 % Critically high 0.0-0.5 [facility] Comment on above: Performed By: #### A FPTET #### [facility] [address] [place] [address] Dr. Belkys Fajardo LYMPH # 2.0 103/ul Normal 1.2-3.8 [facility] Comment on above: Performed By: #### A FPTET #### [facility] [address] [place] [address] Dr. Belkys Fajardo Lymphocytes/100 WBC (Bld) 10.2 % Critically low 20.5-60.0 [facility] Comment on above: Performed By: #### A FPTET #### [facility] [address] [place] [address] Dr. Belkys Fajardo MANUAL DIFF REQ NO Normal [facility] Comment on above: Performed By: #### A FPTET #### [facility] [address] [address] [address] Belkys Fajardo MCH (RBC) [Entitic mass] 28.4 pg Normal 26.7-34.0 [facility] Comment on above: Performed By: #### A FPTET #### [facility] [address] [place] [address] Dr. Belkys Fajardo MCHC (RBC) [Mass/Vol] 33.8 g/dL Normal 29.9-35.2 [facility] Comment on above: Performed By: #### A FPTET #### [facility] [address] [place] [address] Dr. Belkys Fajardo MCV (RBC) [Entitic vol] 83.8 fL Normal 81.0-99.0 [facility] Comment on above: Performed By: #### A FPTET #### [facility] [address] [place] [address] Dr. Belkys Fajardo MONO # 0.9 103/ul Critically high 0.3-0.8 [facility] Comment on above: Performed By: #### A FPTET #### [facility] [address] [place] [address] Dr. Belkys Fajardo Monocytes/100 WBC (Bld) 4.8 % Normal 1.7-12.0 [facility] Comment on above: Performed By: #### A FPTET #### [facility] [address] [place] [address] Dr. Belkys Fajardo NEUT # 16.0 103/ul Critically high 1.4-6.5 [facility] Comment on above: Performed By: #### A FPTET #### [facility] [address] [place] [address] Dr. Belkys Fajardo Neutrophils/100 WBC (Bld) 82.5 % Critically high 43.0-75.0 [facility] Comment on above: Performed By: #### A FPTET #### [facility] [address] [place] [address] Dr. Belkys Fajardo Platelet mean volume (Bld) [Entitic vol] 10.1 fL Normal 9.5-13.5 [facility] Comment on above: Performed By: #### A FPTET #### [facility] [address] [address] [address] Belkys Fajardo PLT 301 103/ul Normal 150-450 [facility] Comment on above: Performed By: #### A FPTET #### [facility] [address] [address] [address] Belkys Fajardo RBC 3.88 106/ul Critically low 4.20-5.40 [facility] Comment on above: Performed By: #### A FPTET #### [facility] [address] [address] [address] Belkys Fajardo WBC 19.3 103/ul Critically high 4.0-11.0 [facility] Comment on above: Performed By: #### A FPTET #### [facility] [address] [place] [address] Dr. Belkys Fajardo CULTURE URINEon 01-23-2022 CULTURE URINE Culture Observations : LIGHT GROWTH OF MIXED GENITAL HEYDI. NO POTENTIAL PATHOGENS SEEN. Normal [facility] Comment on above: Performed By: #### U ACSIND, UMICRO #### [facility] [address] [address] [address] Belkys Fajardo [facility] SARS-CoV-2 (COVID-19) RNA DEVIN+probe Ql (Unsp spec) Not detected Normal NOT DETECTED [facility] Comment on above: Result Comment: When [...] for this test is supported by the [employer] of [employer] and Human Service's declaration that [...] used). Performed By: #### C VDTBH #### [facility] [address] [place] [address] Dr. Belkys Fajardo DRUG SCREEN RAPID (URINE)on 01-23-2022 AMP Negative Normal NEGATIVE [facility] Comment on above: Performed By: #### A FPTET #### [facility] [address] [place] [address] Dr. Belkys Fajardo BAR Negative Normal NEGATIVE [facility] Comment on above: Performed By: #### A FPTET #### [facility] [address] [place] [address] Dr. Belkys Fajardo BUP Negative Normal NEGATIVE [facility] Comment on above: Performed By: #### A FPTET #### [facility] [address] [place] [address] Dr. Belkys Fajardo BZO Negative Normal NEGATIVE [facility] Comment on above: Performed By: #### A FPTET #### [facility] [address] [place] [address] Dr. Belkys Fajardo VALENCIA Negative Normal NEGATIVE [facility] Comment on above: Performed By: #### A FPTET #### [facility] [address] [place] [address] Dr. Belkys Fajardo CUT-OFFS SEE BELOW Normal [facility] Comment on above: Result Comment: AMP [...] ng/mL Performed By: #### A FPTET #### [facility] [address] [place] [address] Dr. Belkys Fajardo DRUG CUT HEADER DRUG CLASS TEST SYSTEM CUT-OFF CONCENTRATIONS ARE FOLLOWS: Normal [facility] Comment on above: Performed By: #### A FPTET #### [facility] [address] [place] [address] Dr. Belkys Fajardo mAMP Negative Normal NEGATIVE [facility] Comment on above: Performed By: #### A FPTET #### [facility] [address] [place] [address] Dr. Belkys Fajardo MTD Negative Normal NEGATIVE [facility] Comment on above: Performed By: #### A FPTET #### [facility] [address] [place] [address] Dr. Belkys Fajardo OPI Negative Normal NEGATIVE [facility] Comment on above: Performed By: #### A FPTET #### [facility] [address] [place] [address] Dr. Belkys Fajardo OXY Negative Normal NEGATIVE [facility] Comment on above: Performed By: #### A FPTET #### [facility] [address] [place] [address] Dr. Belkys Fajardo PCP Negative Normal NEGATIVE [facility] Comment on above: Performed By: #### A FPTET #### [facility] [address] [place] [address] Dr. Belkys Fajardo PPX Negative Normal NEGATIVE [facility] Comment on above: Performed By: #### A FPTET #### [facility] [address] [place] [address] Dr. eBlkys Fajardo TCA Negative Normal NEGATIVE [facility] Comment on above: Performed By: #### A FPTET #### [facility] [address] [place] [address] Dr. Belkys Fajardo THC Negative Normal NEGATIVE [facility] Comment on above: Performed By: #### A FPTET #### [facility] [address] [place] [address] Dr. Belkys Fajardo TYPE AND SCREENon 01-23-2022 TYPE AND SCREEN Negative Normal [facility] Comment on above: Performed By: #### U ACSIND, UMICRO #### [facility] [address] [place] [address] Dr. Belkys Fajardo UA (CLEAN/CATCH) ASSISTANT MEN'S LACROSSE COACH/MICRO I F IND.on 01-23-2022 Bilirubin Ql (U) Negative Normal NEGATIVE [facility] Comment on above: Performed By: #### U ACSIND, UMICRO #### [facility] [address] [address] [address] Belkys Fajardo Clarity (U) CLEAR Normal CLEAR [facility] Comment on above: Performed By: #### U ACSIND, UMICRO #### [facility] [address] [place] [address] Dr. Belkys Fajardo Color (U) LT. YELLOW Normal YELLOW [facility] Comment on above: Performed By: #### U ACSIND, UMICRO #### [facility] [address] [address] [address] Belkys Fajardo Glucose Ql (U) Negative Normal NEGATIVE [facility] Comment on above: Performed By: #### U ACSIND, UMICRO #### [facility] [address] [place] [address] Dr. Belkys Fajardo Hemoglobin Ql (U) TRACE-INTACT Abnormal NEGATIVE [facility] Comment on above: Performed By: #### U ACSIND, UMICRO #### [facility] [address] [address] [address] Belkys Fajrado Ketones Ql (U) Negative Normal NEGATIVE [facility] Comment on above: Performed By: #### U ACSIND, UMICRO #### [facility] [address] [address] [address] Belkys Fajardo LEUKOCYTES MODERATE Abnormal NEGATIVE [facility] Comment on above: Performed By: #### U ACSIND, UMICRO #### [facility] [address] [place] [address] Dr. Belkys Fajardo Nitrite Ql (U) Negative Normal NEGATIVE [facility] Comment on above: Performed By: #### U ACSIND, UMICRO #### [facility] [address] [address] [address] Belkys Fajardo pH (U) 6.5 [pH] Normal 5-9 [facility] Comment on above: Performed By: #### U ACSIND, UMICRO #### [facility] [address] [address] [address] Belkys Fajardo SPEC GRAVITY 1.015 Normal 1.005-<=1.025 [facility] Comment on above: Performed By: #### U ACSIND, UMICRO #### [facility] [address] [place] [address] Dr. Belkys Fajardo UA PROTEIN Negative Normal NEGATIVE/ TRACE [facility] Comment on above: Performed By: #### U ACSTAMELA, UMICRO #### [facility] [address] [place] [address] Dr. Belkys Fajardo UR MICRO IND INDICATED Normal [facility] Comment on above: Performed By: #### U ACSTAMELA, ICRO #### [facility] [address] [place] [address] Dr. Belkys Fajardo Urobilinogen Qn (U) 0.2 {Jakob'U}/dL Normal 0.2 - 1. 0 [facility] Comment on above: Performed By: #### U ACSTAMELA, UMICRO #### [facility] [address] [place] [address] Dr. Belkys Fajardo URINE MICROSCOPIC ONLYon BACTERIA SMALL Abnormal NONE SEEN [facility] Comment on above: Performed By: #### U ACSIND, UMICRO #### [facility] [address] [place] [address] Dr. Belkys Fajardo Bacteria identified Cx Nom (U) INDICATED Normal [facility] Comment on above: Performed By: #### U ACSTAMELA, UMICRO #### [facility] [address] [place] [address] Dr. Belkys Fajardo CAST NONE SEEN Normal NONE SEEN [facility] Comment on above: Performed By: #### U ACSIND, UMICRO #### [facility] [address] [address] [address] Belkys Fajardo Crystals LM Nom (Urine sed) NONE SEEN Normal NONE SEEN [facility] Comment on above: Performed By: #### U ACSIND, UMICRO #### [facility] [address] [place] [address] Dr. Belkys Fajardo Epithelial cells LM Ql (Urine sed) FEW Abnormal NONE SEEN /RARE [facility] Comment on above: Performed By: #### U ACSIND, UMICRO #### [facility] [address] [place] [address] Dr. Belkys Fajardo MUCOUS NONE SEEN Normal NONE SEEN [facility] Comment on above: Performed By: #### U ACSIND, UMICRO #### [facility] [address] [place] [address] Dr. Belkys Fajardo RBC NONE SEEN Abnormal 0-2 [facility] Comment on above: Performed By: #### U ACSTAMELA, UMICRO #### [facility] [address] [place] [address] Dr. Belkys Fajardo WBC 5-10 Abnormal NONE SEEN [facility] Comment on above: Performed By: #### U ACSTAMELA, UMICRO #### [facility] [address] [place] [address] Dr. Belkys Fajardo US PREG GROWTHon 01-12-2022 [...] growth detailed above. Electronically authenticated by: YOGI BLAKC Date: 2022-01-12 21:15 Normal [facility] GROUP B STREP CULTUREon 12-26 S. agalactiae Ag Ql (Unsp spec) Culture Observations: NEGATIVE FOR GROUP B STREPTOCOCCUS. Normal [facility] Comment on above: Performed By: #### G BSCX #### [facility] [address] [place] [address] Dr. Belkys Fajardo GTT 3 HR PREGon 12-11-2021 Glucose [Mass/Vol] 91 mg/dL Normal 74-106 [facility] Comment on above: Performed By: #### G TT3P #### [facility] [address] [place] [address] Dr. Belkys Fajardo Glucose [Mass/Vol] 172 mg/dL Normal [facility] Comment on above: Performed By: #### G TT3P #### [facility] [address] [place] [address] Dr. Belkys Fajardo Glucose [Mass/Vol] 148 mg/dL Normal [facility] Comment on above: Performed By: #### G TT3P #### [facility] [address] [place] [address] Dr. Belkys Fajardo Glucose [Mass/Vol] 58 mg/dL Normal [facility] Comment on above: Performed By: #### G TT3P #### [facility] [address] [place] [address] Dr. Belkys Fajardo US PREG GROWTHon 12-08-2021 [...] growth detailed above. Electronically authenticated by: YOGI WAYNE Date: 2021-12-08 16:52 Normal [facility] GLUCOSE - 1HRon 11-12-2021 Glucose [Mass/Vol] 143 mg/dL Critically high 74-106 T [facility] Comment on above: Performed By: #### U ACSIND, UMICRO #### [facility] [address] [place] [address] Dr. Belkys Fajardo HEMOGRAM AND PLATELon 2021 Hematocrit (Bld) [Volume fraction] 31.7 % Critically low 36.0-48.0 [facility] Comment on above: Performed By: #### A FPTET #### [facility] [address] [address] [address] Belkys Fajardo Hemoglobin (Bld) [Mass/Vol] 10.4 g/dL Critically low 12.0-16.0 [facility] Comment on above: Performed By: #### A FPTET #### [facility] [address] [place] [address] Dr. Belkys Fajardo MCH (RBC) [Entitic mass] 28.8 pg Normal 26.7-34.0 [facility] Comment on above: Performed By: #### A FPTET #### [facility] [address] [place] [address] Dr. Belkys Fajardo MCHC (RBC) [Mass/Vol] 32.8 g/dL Normal 29.9-35.2 [facility] Comment on above: Performed By: #### A FPTET #### [facility] [address] [place] [address] Dr. Belkys Fajardo MCV (RBC) [Entitic vol] 87.8 fL Normal 81.0-99.0 [facility] Comment on above: Performed By: #### A FPTET #### [facility] [address] [place], [place] [address] Dr. Belkys Fajardo PLT 261 103/ul Normal 150-450 [facility] Comment on above: Performed By: #### A FPTET #### [facility] [address] [place], [place] [address] Dr. Belkys Fajardo RBC 3.61 106/ul Critically low 4.20-5.40 [facility] Comment on above: Performed By: #### A FPTET #### [facility] [address] [place], [place] [address] Dr. Belkys Fajardo WBC 11.5 103/ul Critically high 4.0-11.0 [facility] Comment on above: Performed By: #### A FPTET #### [facility] [address] [address] [address] Belkys Fajardo US PREG PLACENTAon 2 [...] by: YOGI BLACK Date: 2021-11-10 21:07 Normal [facility] US PREG PLACENTAon 2 US PREG PLACENTA EXAMINATION: US PREG PLACENTA HISTORY: Low lying placenta COMPARISON: Ultrasound anatomy 09/16/2021 FINDINGS: PLACENTA: Posterior with lower margin 2.5 cm from os. CERVIX LENGTH: 4.4 cm, closed. HEART RATE: 157 bpm OTHER: None. IMPRESSION: 1. Low-lying posterior placenta; no appreciable change compared to prior study. Electronically authenticated by: YOGI BLACK Date: 2021-10-14 19:56 Normal [facility] US PREG ANATOMY SINGLEon US PREG ANATOMY [...] YOGI BLACK Date: 2021-09-16 16:54 Normal [facility] AFP TETRA PROFILE (MATERNAL) on 09-06-2021 PDF . Normal [facility] Comment on above: Performed By: #### A FPTET #### [facility] [address] [address] [address] Belkys Fajardo AFP MoM 0.86 Normal [facility] Comment on above: Performed By: #### A FPTET #### [facility] [address] [address] [address] Belkys Fajardo AFP Value 39.7 ng/mL Normal [facility] Comment on above: Performed By: #### A FPTET #### [facility] [address] [address] [address] Belkys Fajardo Comment Comment Normal [facility] Comment on above: Result Comment: Geremias Greer, Ph.D., [facility] Director . References: Available Upon Request. . Multiples Of Median Cutoffs Abbreviation Definitions For AFP Elevations IDD- Insulin Dep Diabetes Granados 2.5 Black 2.8 OSBR- Open Spina Bifida IDD 2.0 Twins 4.5 Risk DSR Cutoff 1:270 DSR- Down Syndrome Risk T18 Cutoff 1:100 T18- Trisomy 18 . Down Syndrome and Trisomy 18 screening are considered Investigational . For further inquiries contact [facility] at [phone]. Performed By: #### A FPTET #### [facility] [address] [place] [address] Dr. Belkys Fajardo MONIE MoM 0.77 [facility] Comment on above: Performed By: #### A FPTET #### [facility] [address] [place] [address] Dr. Belkys Fajardo MONIE Value 113.50 pg/mL [facility] Comment on above: Performed By: #### A FPTET #### [facility] [address] [place] [address] Dr. Belkys Fajardo DSR (By Age) 1 [place] 765 Normal [facility] Comment on above: Performed By: #### A FPTET #### [facility] [address] [place] [address] Dr. Belkys Fajardo DSR (Second Trimester) 1 [place] [address] [facility] Comment on above: Performed By: #### A FPTET #### [facility] [address] [place] [address] Dr. Belkys Gilliland Age on Collection Date 18.7 WEEKS Normal [facility] Comment on above: Performed By: #### A FPTET #### [facility] [address] [place] [address] Dr. Belkys Pablo. Age Based On LMP [facility] Comment on above: Result Comment: 03/30 Performed By: #### A FPTET #### [facility] [address] [place] [address] Dr. Belkys Fajardo hCG MoM 0.78 Normal [facility] Comment on above: Performed By: #### A FPTET #### [facility] [address] [address] [place] [address] m[IU]/mL Normal [facility] Comment on above: Performed By: #### A FPTET #### [facility] [address] [place] [address] Dr. Belkys Fajardo Insulin Dep Diabetes No Normal [facility] Comment on above: Performed By: #### A FPTET #### [facility] [address] [place] [address] Dr. Belkys Fajardo Interpretation Comment [facility] [...] identifies 60% of Trisomy 18 pregnancies. The [employer] recommends amniocentesis be offered to women age 35 and older. Recalculations are not recommended when gestational dating by LMP and ultrasound are within 10 days. Performed By: #### A FPTET #### [facility] [address] [place] [address] Dr. Belkys Fajardo Maternal Age At GUNJAN 31.[address] [age] [address] [facility] Comment on above: Performed By: #### A FPTET #### [facility] [address] [place] [address] Dr. Belkys Fajardo Multiple Gestation No Normal [facility] Comment on above: Performed By: #### A FPTET #### [facility] [address] [place] [address] Dr. Belkys Fajardo OSBR [place] 1 [place] [address] Normal [facility] Comment on above: Performed By: #### A FPTET #### [facility] [address] [place] [address] Dr. Belkys Fajardo Race Normal [facility] Comment on above: Performed By: #### A FPTET #### [facility] [address] [address] [address] Belkys Fajardo Results Report Normal [facility] Comment on above: Performed By: #### A FPTET #### [facility] [address] [place] [address] Dr. Belkys Fajardo T18 (By Age) 1:2981 Normal [facility] Comment on above: Performed By: #### A FPTET #### [facility] [address] [place] [address] Dr. Belkys Fajardo T18 Risk Not increased [facility] Comment on above: Performed By: #### A FPTET #### [facility] [address] [place] [address] Dr. Belkys Fajardo Test Results: Negative Normal [facility] Comment on above: Performed By: #### A FPTET #### [facility] [address] [place] [address] Dr. Belkys Fajardo uE3 MoM 1.43 [facility] Comment on above: Performed By: #### A FPTET #### [facility] [address] [place] [address] Dr. Belkys Fajardo uE3 Value 2.26 ng/mL [facility] Comment on above: Performed By: #### A FPTET #### [facility] [address] [place] [address] Dr. Belkys Fajardo PAP ACOG PANEL 2: 21 to 29on 08-24-2021 . . Normal [facility] Comment on above: Result Comment: Perf ormed at: BA Performed By: #### [id number] #### [facility] [address] [place] [address] Dr. Belkys Fajardo Age Gdln ACOG Testing - [facility] Comment on above: Performed By: #### [id number] #### [facility] [address] [place] [address] Dr. Belkys Fajardo DIAGNOSIS: Comment Normal [facility] Comment on above: Result Comment: NEGA TIVE FOR INTRAEPITHELIAL LESION OR MALIGNANCY. Performed at: BA Performed By: #### [id number] #### [facility] [address] [place] [address] Dr. Belkys Fajardo Methodology: Comment Normal [facility] Comment on above: Result Comment: This liquid based ThinPrep(R) pap test was screened with the use of an image guided system. Performed at: WB Performed By: #### [id number] #### [facility] [address] [place] [address] Dr. Belkys Fajardo Note: Comment Normal [facility] Comment on above: Result Comment: The Pap smear is a screening test designed to aid in the detection of premalignant and malignant conditions of the uterine cervix. It is not a diagnostic procedure and should not be used as the sole means of detecting cervical cancer. Both false-positive and false-negative reports do occur. . Performed at: WB Performed By: #### [id number] #### [facility] [address] [place] [address] Dr. Belkys Fajardo Performed by: Comment Normal [facility] Comment on above: Result Comment: Vicky Avila, Substance Abuse Clinician (ASCP) Performed at: BA Performed By: #### [id number] #### [facility] [address] [place] [address] Dr. Belkys Fajardo Reflex Criteria: Comment Normal [facility] Comment on above: Result Comment: The HPV DNA reflex criteria were not met with this specimen result therefore, no HPV testing was performed. . Performed at: BA Performed By: #### [id number] #### [facility] [address] [place] [address] Dr. Belkys Fajardo Specimen adequacy: Comment Normal [facility] Comment on above: Result Comment: Sati sfactory for evaluation. No endocervical component is identified. Performed at: BA Performed By: #### [id number] #### [facility] [address] [place] [address] Dr. Belkys Fajardo CBC AUTO DIFFon 08-22-2021 BASO # 0.0 103/ul Normal 0.0-0.1 [facility] Comment on above: Performed By: #### C BC #### [facility] [address] [address] [address] Belkys Fajardo Basophils/100 WBC (Bld) 0.2 % Normal 0.2-2.0 [facility] Comment on above: Performed By: #### C BC #### [facility] [address] [address] [address] Belkys Fajardo EO # 0.2 103/ul Normal 0.0-0.7 [facility] Comment on above: Performed By: #### C BC #### [facility] [address] [address] [address] Belkys Fajardo Eosinophils/100 WBC (Bld) 1.9 % Normal 0.9-7.0 [facility] Comment on above: Performed By: #### C BC #### [facility] [address] [place] [address] Dr. Belkys Fajardo Erythrocyte distribution width (RBC) [Ratio] 13.4 % Normal 11.0-15.0 [facility] Comment on above: Performed By: #### C BC #### [facility] [address] [place] [address] Dr. Belkys Fajardo Hematocrit (Bld) [Volume fraction] 32.7 % Critically low 36.0-48.0 [facility] Comment on above: Performed By: #### C BC #### [facility] [address] [place] [address] Dr. Belkys Fajardo Hemoglobin (Bld) [Mass/Vol] 11.0 g/dL Critically low 12.0-16.0 [facility] Comment on above: Performed By: #### C BC #### [facility] [address] [place] [address] Dr. Belkys Fajardo IG # 0.05 10e3/ul Critically high 0.00-0.03 [facility] Comment on above: Performed By: #### C BC #### [facility] [address] [address] [address] Belkys Fajardo IG % 0.5 % Normal 0.0-0.5 [facility] Comment on above: Performed By: #### C BC #### [facility] [address] [place] [address] Dr. Belkys Fajardo LYMPH # 2.3 103/ul Normal 1.2-3.8 [facility] Comment on above: Performed By: #### C BC #### [facility] [address] [place] [address] Dr. Belkys Fajardo Lymphocytes/100 WBC (Bld) 22.4 % Normal 20.5-60.0 [facility] Comment on above: Performed By: #### C BC #### [facility] [address] [place] [address] Dr. Belkys Fajardo MANUAL DIFF REQ NO Normal [facility] Comment on above: Performed By: #### C BC #### [facility] [address] [place] [address] Dr. Belkys Fajardo MCH (RBC) [Entitic mass] 29.3 pg Normal 26.7-34.0 [facility] Comment on above: Performed By: #### C BC #### [facility] [address] [place] [address] Dr. Belkys Fajardo MCHC (RBC) [Mass/Vol] 33.6 g/dL Normal 29.9-35.2 [facility] Comment on above: Performed By: #### C BC #### [facility] [address] [place] [address] Dr. Belkys Fajardo MCV (RBC) [Entitic vol] 87.2 fL Normal 81.0-99.0 [facility] Comment on above: Performed By: #### C BC #### [facility] [address] [place] [address] Dr. Belkys Fajardo MONO # 0.6 103/ul Normal 0.3-0.8 [facility] Comment on above: Performed By: #### C BC #### [facility] [address] [place] [address] Dr. Belkys Fajardo Monocytes/100 WBC (Bld) 5.5 % Normal 1.7-12.0 [facility] Comment on above: Performed By: #### C BC #### [facility] [address] [address] [address] Belkys Fajardo NEUT # 7.1 103/ul Critically high 1.4-6.5 [facility] Comment on above: Performed By: #### C BC #### [facility] [address] [address] [address] Belkys Fajardo Neutrophils/100 WBC (Bld) 69.5 % Normal 43.0-75.0 [facility] Comment on above: Performed By: #### C BC #### [facility] [address] [place] [address] Dr. Belkys Fajardo Platelet mean volume (Bld) [Entitic vol] 10.3 fL Normal 9.5-13.5 [facility] Comment on above: Performed By: #### C BC #### [facility] [address] [place] [address] Dr. Belkys Fajardo PLT 258 103/ul Normal 150-450 [facility] Comment on above: Performed By: #### C BC #### [facility] [address] [place] [address] Dr. Belkys Fajardo RBC 3.75 106/ul Critically low 4.20-5.40 [facility] Comment on above: Performed By: #### C BC #### [facility] [address] [place] [address] Dr. Belkys Fajardo WBC 10.2 103/ul Normal 4.0-11.0 [facility] Comment on above: Performed By: #### C BC #### [facility] [address] [place] [address] Dr. Belkys Fajardo CTA CHEST WO W [...] ROSARIO HERNANDEZ Date: 2021-08-22 08:31 Normal [facility] Covid-19 PCR (CVDTB)on 07-27 SARS-CoV-2 (COVID-19) RNA DEVIN+probe Ql (Unsp spec) Not detected Normal NOT DETECTED [facility] Comment on above: Result Comment: When [...] for this test is supported by the [employer] and Human Service's declaration that [...] used). Performed By: #### C VDTBH #### [facility] [address] [place] [address] Dr. Belkys Fajardo PROF 14(COMP METB)on 022 Albumin [Mass/Vol] 3.0 g/dL Critically low 3.4-5.0 [facility] Comment on above: Performed By: #### A FPTET #### [facility] [address] [address] [address] Belkys Fajardo Albumin/Globulin [Mass ratio] 0.8 {ratio} Normal [facility] Comment on above: Performed By: #### A FPTET #### [facility] [address] [address] [address] Belkys Fajardo ALP [Catalytic activity/Vol] 52 U/L Normal 46-116 [facility] Comment on above: Performed By: #### A FPTET #### [facility] [address] [place] [address] Dr. Belkys Fajardo ALT [Catalytic activity/Vol] 32 U/L Normal 14-59 [facility] Comment on above: Performed By: #### A FPTET #### [facility] [address] [place] [address] Dr. Belkys Fajardo Anion gap [Moles/Vol] 12.8 mmol/L Normal [facility] Comment on above: Performed By: #### A FPTET #### [facility] [address] [place] [address] Dr. Belkys Fajardo AST [Catalytic activity/Vol] 17 U/L Normal 15-37 [facility] Comment on above: Performed By: #### A FPTET #### [facility] [address] [place] [address] Dr. Belkys Fajardo Bilirubin [Mass/Vol] 0.3 mg/dL Normal 0.2-1.0 [facility] Comment on above: Performed By: #### A FPTET #### [facility] [address] [place] [address] Dr. Belkys Fajardo Calcium [Mass/Vol] 8.5 mg/dL Normal 8.5-10.1 [facility] Comment on above: Performed By: #### A FPTET #### [facility] [address] [place] [address] Dr. Belkys Fajardo Chloride [Moles/Vol] 103 mmol/L Normal 98-107 [facility] Comment on above: Performed By: #### A FPTET #### [facility] [address] [address] [address] Belkys Fajardo CO2 [Moles/Vol] 24.7 mmol/L Normal 21.0-32.0 [facility] Comment on above: Performed By: #### A FPTET #### [facility] [address] [place] [address] Dr. Belkys Fajardo Creatinine [Mass/Vol] 0.46 mg/dL Critically low 0.55-1.02 [facility] Comment on above: Performed By: #### A FPTET #### [facility] [address] [place] [address] Dr. Belkys Fajardo EGFR-AF GUAMANIAN >60 Normal >=60 [facility] Comment on above: Performed By: #### A FPTET #### [facility] [address] [place] [address] Dr. Belkys Fajardo EGFR-NON AF GUAMANIAN >60 Normal >=60 [facility] Comment on above: Performed By: #### A FPTET #### [facility] [address] [place] [address] Dr. Belkys Fajardo Globulin (S) [Mass/Vol] 3.7 g/dL Normal [facility] Comment on above: Performed By: #### A FPTET #### [facility] [address] [place] [address] Dr. Belkys Fajardo Glucose [Mass/Vol] 84 mg/dL Normal 74-106 [facility] Comment on above: Performed By: #### A FPTET #### [facility] [address] [place] [address] Dr. Belkys Fajardo Potassium [Moles/Vol] 3.5 mmol/L Normal 3.5-5.1 [facility] Comment on above: Performed By: #### A FPTET #### [facility] [address] [place] [address] Dr. Belkys Fajardo Protein [Mass/Vol] 6.7 g/dL Normal 6.4-8.2 [facility] Comment on above: Performed By: #### A FPTET #### [facility] [address] [place] [address] Dr. Belkys Fajardo Sodium [Moles/Vol] 137 mmol/L Normal 136-145 [facility] Comment on above: Performed By: #### A FPTET #### [facility] [address] [place] [address] Dr. Belkys Fajardo Urea nitrogen [Mass/Vol] 7.0 mg/dL Normal 7.0-18.0 [facility] Comment on above: Performed By: #### A FPTET #### [facility] [address] [place] [address] Dr. Belkys Fajardo Urea nitrogen/Creatinine [Mass ratio] 15.2 mg/mg Normal [facility] Comment on above: Performed By: #### A FPTET #### [facility] [address] [place] [address] Dr. Belkys Fajardo TROPONIN, HIGH SENSITIVITYon 08-22-2021 HSTROP <4.0 Normal 4.0-51.3 [facility] Comment on above: Result Comment: CUT- OFF POINTS HAVE BEEN ESTABLISHED BASED ON THE FOURTH UNIVERSAL DEFINITIONS OF MYOCARDIAL INFARCTION. THE UPPER REFERENCE LIMIT (URL) OF TROPONIN, DEFINED THE 99TH PERCENTILE OF cTnI DISTRIBUTION IN A REFERENCE POPULATION, HAS BEEN CONFIRMED THE DECISION THRESHOLD FOR ID DIAGNOSIS. Performed By: #### A FPTET #### [facility] [address] [place] [address] Dr. Belkys Fajardo CHLAMYDIA/GONOCOCCUS DEVIN (SW AB/URINE/PAPon 08-21-2021 Chlamydia trachomatis, DEVIN Negative Normal Negative [facility] Comment on above: Performed By: #### C T/NGNA #### [facility] [address] [place] [address] Dr. Belkys Fajardo Neisseria gonorrhoeae, DEVIN Negative Normal Negative [facility] Comment on above: Performed By: #### C T/NGNA #### [facility] [address] [place] [address] Dr. Belkys Fajardo VAGINITIS/VAGINOSIS DNA PROB Gab 08-20-2021 Lani species Negative Normal Negative [facility] Comment on above: Performed By: #### A FPTET #### [facility] [address] [address] [address] Belkys Fajardo Gardnerella vaginalis Negative Normal Negative [facility] Comment on above: Performed By: #### A FPTET #### [facility] [address] [address] [address] Belkys Fajardo Trichomonas vaginalis Negative Normal Negative [facility] Comment on above: Performed By: #### A FPTET #### [facility] [address] [address] [address] Belkys Fajardo Vital Signs Date Time Vital Sign Value Performing Clinician Facility 07-28-2022 10:15-0400 Body height 170.18 cm Nick Ball Other [facility] Other 07-28-2022 10:15-0400 Body mass index (BMI) [Ratio] 27.81 kg/m2 Nick Ball Other [facility] Other 07-28-2022 10:15-0400 Body weight 80.56 kg Nick Ball Other [facility] Other 07-28-2022 10:15-0400 Diastolic blood pressure 75 mm[Hg] Nick Ball Other [facility] Other 07-28-2022 10:15-0400 Systolic blood pressure 112 mm[Hg] Nick Ball Other [facility] Other 06-04-2022 17:00-0500 Body height 170.18 cm Cristal Guidry Other [facility] Other 06-04-2022 17:00-0500 Body mass index (BMI) [Ratio] 28.19 kg/m2 Cristal Guidry Other [facility] Other 06-04-2022 17:00-0500 Body temperature 97.4 [degF] Cristal Guidry Other [facility] Other 06-04-2022 17:00-0500 Body weight 81.65 kg Cristal Guidry Other [facility] Other 06-04-2022 17:00-0500 Respiratory rate 18 /min Cristal Guidry Other [facility] Other 06-04-2022 17:00-0500 SaO2% (BldA) [Mass fraction] 98 % Cristal Guidry Other [facility] Other 09-06-2021 02:05-0400 Body weight 77.[address] CHEYENNE MEADE . [facility] Comment on above: Performed By: #### AFPTET #### [facility] [address] [place] [address] Dr. Belkys Fajardo Encounters Encounter Date Encounter Type Care Provider Facility Start: 11-02-2023 End: 11-02-2023 ambulatory CHEYENNE WOLF Not Available Start: 10-26-2023 End: 10-26-2023 ambulatory VALERIE SADLER Not Available Start: 10-18-2023 End: 10-18-2023 ambulatory VALERIE SADLER Not Available Start: 10-05-2023 End: 10-05-2023 ambulatory CHEYENNE WOLF Not Available Start: 09-21-2023 End: 09-21-2023 ambulatory CHEYENNE WOLF Not Available Start: 09-20-2023 End: 09-21-2023 [facility]: 09-07-[facility]23 End: 09-07-2023 ambulatory CHEYENNE WOLF Not Available Start: 08-24-2023 End: 08-24-2023 ambulatory CHEYENNE WOLF Not Available Start: 08-10-2023 End: 08-10-2023 ambulatory CHEYENNE WOLF Not Available Start: 07-28-2023 End: 07-30-2023 ambulatory YOGI MARQUEZ [facility] Start: 07-26-2023 End: 07-26-2023 Emergency department patient visit LIS DE LEON [place] Start: 07-25-2023 End: 07-27-2023 ambulatory YOGI MARQUEZ [facility] Start: 07-13-2023 End: 07-13-2023 ambulatory CHEYENNE WOLF Not Available Start: 06-15-2023 End: 06-15-2023 ambulatory CHEYENNE WOLF Not Available Start: 05-16-2023 End: 05-16-2023 ambulatory CHEYENNE WOLF Not Available Start: 04-08-2023 End: 04-08-2023 ambulatory CHEYENNE WOLF Not Available Start: 07-28-2022 End: 07-28-2022 ambulatory Nick Leonardo Other [facility] Start: 07-28-2022 Office outpatient vi sit 15 minutes Nick Leonardo [facility] Start: 07-28-2022 Telephone encounter Nick Leonardo [facility] Start: 06-04-2022 End: 06-04-2022 ambulatory Cristal Guidry Other [facility] Start: 06-04-2022 Office outpatient ne w 20 minutes Cristal Guidry 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 Start: 2004 Depression Screen Depression Screen [facility] Start: 1997 COVID-19 Vaccine (1) COVID-19 Vaccin e (1) [facility] Start: 1993 Varicella vaccine (1 of 2 - 2-dose childhood series) Varicella vaccine (1 of 2 - 2-dose childhood series) [facility] Start: 1992 Hepatitis C screening Hepatitis C [facility] Payers Date Payer Category Payer Unknown [id number] 1.2. [id number] 1992 Unknown [id number] 2.16.84 0.1.429407.3.579.2.593 1992 Unknown [id number] 2.16.84 0.1.388671.3.579.2.593 1992 Unknown [id number] 2.16.84 0.1.245218.3.579.2.593 1992 Unknown [id number] 2.16.84 0.1.904283.3.579.2.593 1992 Unknown [id number] 2.16.84 0.1.920207.3.579.2.593 1992 Unknown [id number] 2.16.84 0.1.860176.3.579.2.593 1992 Unknown [id number] 2.16.84 0.1.240285.3.579.2.593 1992 Unknown [id number] 2.16.84 0.1.011588.3.579.2.593 1992 Unknown [id number] 2.16.84 0.1.260999.3.579.2.593 1992 Unknown [id number] 2.16.84 0.1.677372.3.579.2.593 1992 Unknown [id number] 2.16.84 0.1.468922.3.579.2.593 1992 Unknown [id number] 2.16.84 0.1.346033.3.579.2.593 1992 Unknown [id number] 2.16.84 0.1.775419.3.579.2.593 1992 Unknown [id number] 2.16.8 40.1.858662.3.579.2.173 1992 Unknown [id number] 2.16.8 40.1.414419.3.579.2.173 1992 Unknown [id number] 2.16.8 40.1.580681.3.579.2.173 1992 Unknown [id number] 2.16.8 40.1.147273.3.579.2.173 1992 Unknown [id number] 2.16.84 0.1.583314.3.579.2.9 1992 Unknown [id number] 2.16.84 0.1.739148.3.579.2.1258 1992 Unknown [id number] 2.16.84 0.1.588151.3.579.2.1258 1992 Unknown [id number] 2.16.84 0.1.123657.3.579.2.1258 1992 Unknown [id number] 2.16.84 0.1.896297.3.579.2.9 1992 Unknown [id number] 2.16.84 0.1.263311.3.579.2.1258 1992 Unknown [id number] 2.16.84 0.1.457906.3.579.2.1258 1992 Unknown [id number] 2.16.84 0.1.028315.3.579.2.1258 1992 Unknown [id number] 2.16.84 0.1.203535.3.579.2.1258 1992 Unknown [id number] 2.16.84 0.1.331084.3.579.2.9 1992 Unknown [id number] 2.16.84 0.1.006705.3.579.2.1259 1992 Unknown [id number] 2.16.84 0.1.119894.3.579.2.1259 1959 Unknown [id number] Social History Date Type Detail Facility Start: 08-29-2014 Tobacco smoking status NHIS Never smoked tobacco [facility] Phone: Start: 08-29-2014 Tobacco use and exposure Smokeless tobacco non-user [facility] Phone: Start: 03-09-2021 Alcohol intake Current drinke r of alcohol (finding) [facility] Phone: Start: 03-09-2021 Alcohol intake [employer] Phone: Start: 08-29-2014 History SDOH Alcohol Comment occ. [facility] Phone: Start: 1990 Sex Assigned At Not on file [facility] [employer] Phone: Sex Assigned At Sex Assigned At Bir th [facility] Evaluation note 07-28-2022 Note Date & [...] Monitor for now may not need treatment [facility] Evaluation note 06-04-2022 Note Date & [...] other viral communicable diseases (ICD-10 - Z20.828) [facility] Clinical Note 01-23-2022 Note Date & Type Note Facility 01-23-2022 Note OPERATIVE NOTE OPERATION DATE: 02/18/2022 PROCEDURE: Repair of fourth degree perineal laceration. PREOPERATIVE DIAGNOSIS: Fourth degree perineal laceration. POSTOPERATIVE DIAGNOSIS: Fourth degree perineal laceration. ANESTHESIA: Epidural SURGEON: Cheyenne Meade D.O. POWERSAW SUPERVISOR: BOBO Cole URINE OUTPUT: Yellow and clear. [...] taken to recovery in stable condition. [facility] Clinical Note 01-23-2022 Note Date & Type Note Facility 01-23-2022 Note OP Note OPERATION DATE: 01/23/2022 PROCEDURE: Repair of fourth degree perineal laceration. PREOPERATIVE DIAGNOSIS: Fourth degree perineal laceration. POSTOPERATIVE DIAGNOSIS: Fourth degree perineal laceration. ANESTHESIA: Epidural SURGEON: Cheyenne Meade D.O. POWERSAW SUPERVISOR: BOBO Cole URINE OUTPUT: Yellow and clear. [...] taken to recovery in stable condition. [facility] Clinical Note 01-23-2022 Note Date & Type Note Facility 01-23-2022 Note OPERATIVE NOTE OPERATION DATE: 02/10/2022 PROCEDURE: Repair of fourth degree laceration. PREOPERATIVE DIAGNOSIS: Fourth degree laceration. POSTOPERATIVE DIAGNOSIS: Fourth degree laceration. ANESTHESIA: General. SURGEON: Cheyenne Meade D.O. POWERSAW SUPERVISOR: BOBO URINE OUTPUT: Yellow and clear. BLOOD [...] sheath and this was done in a [id number]-ix-efdpt fashion. This was performed using 3-0 Vicryl. [...] The patient tolerated this procedure well. [facility] Clinical Note 08-22-2021 Note Date & [...] by: DERIC VO Date: 2021-08-22 07:30 [facility] Evaluation note Note Date & Type Note Facility Evaluation note Diagnosis Palpitations Post-COVID chronic palpitations Shortness of breath Lightheaded Dizziness and giddiness Dizziness Dizziness and giddiness documented in this encounter [facility] Phone: Evaluation note Note Date & Type Note Facility Evaluation note No Information [employer] Other History general Narrative - Reported Note Date & Type Note Facility History general Narrative - Reported Type Medical History POTS Medical History sinus tachycardia Surgical History 4th degree vaginal tear after g iving 2021 [facility] Other History general Narrative - Reported Note Date & Type Note Facility History general Narrative - Reported Type Medical History POTS Medical History sinus tachycardia Medical History Anxiety, generalized Surgical History 4th degree vaginal t ear after giving 2021 Surgical History MASTOPEXY OF BOTH BR EASTS WITH INSERTION OF SALINE IMPLANTS Hospitalization History SEE SURGICAL HX [facility] Other Reason for Referral Specialty Diagnoses / Procedures Referred By Willy smith Referred To Contact Cardiology Diagnoses Palpitations Post-COVID chronic palpitations Shortness of breath Lightheaded Dizziness Procedures Holter Monitor 24 Hour Yogi Marquez MD [address] [place] [id number] Referral ID Status Reason Start Date Expiration Date Visits Re quested Visits Authorized [id number] Open 03/09/2021 03/09/2022 1 1 Advance Directives No Advanced Directives Records FoundDocuments on File Type Date Recorded 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 ACP-Advance Directive ACP-Power of Printer [employer] Summary Purpose Family History No Family History Records FoundNo Family History Records FoundNo Family History Records Found Additional Source Comments Reason for Visit (unrecogniz ed section and content) Specialty Diagnoses / Procedures Referred By Willy smith Referred To Contact Cardiology Diagnoses Palpitations Post-COVID chronic palpitations Shortness of breath Lightheaded Dizziness Procedures Holter Monitor 24 Hour Yogi Marquez MD [address] [place] [address] Referral ID Status Reason Start Date Expiration Date Visits Re quested Visits Authorized [id number] Open 03/09/2021 03/09/2022 1 1 Care Teams (unrecognized sec tion and content) Home Improvement Advisor Relationship Specialty Start Date End Date Nick Leonardo, [address] [place] [address] PCP - General Internal Medicine 03/09/21 INFORMATION SOURCE (unrecogn ized section and content) DATE CREATED AUTHOR 07/01/2022 [facility] DATE CREATED AUTHOR AUTHOR'S ORGANIZ ATION 09/22/2023 [facility] DATE CREATED AUTHOR AUTHOR'S ORGANIZ ATION 11/05/2023 [facility] Special[facility] EPIC FOR RECORDS PERTAINING TO [...] BE BASED ON THE PRIMARY CLINICAL RECORDS. [employer] provides no warranty or guarantee of the accuracy or completeness of information in this document.
--- NOTE | 2023-11-09 17:36 | US_ITS ---
[address] [address] Patient Name: AUDREY DOZIER MRN: [id number] date: 1990 Sex: F Assigned Patient Location: [facility] Current Patient Location: [facility] Accession/Order Number: [id number] Exam Date: 11/09/2023 17:45 Report Date: 11/10/2023 06:18 At the request of: CHEYENNE BLOOM Procedure: US OB BPP w non-stress EXAMINATION: US OB BPP w non-stress HISTORY:THIRD TRIMESTER Z34.93 COMPARISON: Ultrasound OB biophysical 11/02/2023 TECHNIQUE: Ultrasound biophysical profile was performed in the radiology department. BREATHING MOVEMENTS: 2 GROSS BODY MOVEMENTS: 2 TONE: 2 QUALITATIVE AMNIOTIC FLUID VOLUME: 2 PRESENTATION: CEPHALIC HEART RATE: 131.71 bpm AMNIOTIC FLUID VOLUME: 12.57 cm GESTATIONAL AGE: 38 weeks 6 days US/US OB BPP w non-stress IMPRESSION: Total biophysical profile score: 8 Electronically authenticated by: AILYN BLACK Date: 11/10/2023 06:18
[2023-11-09 18:10] VITALS: BP 103/60; PULSE 81
== END 2023-11-09 18:30 | disposition home or self-care (01) ==
LOC: US 07:02 → FBC 17:13
PROVIDERS: PCP Family Medicine; Visit Provider Obstetrics & Gynecology
DX: O26.893 Other specified pregnancy related conditions, third trimester (principal); Z3A.38 38 weeks gestation of pregnancy
CPT/HCPCS: 76818

== ENCOUNTER 2023-11-10 05:33 | Inpatient (IN) | payer OTHER, SELFPAY ==
[2023-11-10] VITALS (61 sets, daily range): BP systolic 82–111; BP diastolic 40–66; PULSE 82–100; TEMP 36.2–36.7; O2SAT 94–100
--- OUTSIDE RECORDS SUMMARY | 2023-11-10 05:37 | XMS_ITS | CCD ---
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 Basophil 0.05 k/uL Normal 0.00-0.20 [facility] Comment on above: Performed By: #### C DP, PT, MG #### [address] [place] [address] Electrical Solderer: Rosario Linares MD Abs.Imm.Granulocyte 0.20 k/uL Normal 0.00-0.30 [facility] Comment on above: Performed By: #### C DP, PT, MG #### [address] [place] [address] Electrical Solderer: Rosario Linares MD Abs.Neutrophil (Seg) 9.90 k/uL High 1.50-8.10 [facility] Comment on above: Performed By: #### C DP, PT, MG #### [address] [place] [address] Electrical Solderer: Rosario Linares MD Basophils/100 WBC (Bld) 0 % Normal 0-2 [facility] Comment on above: Performed By: #### C DP, PT, MG #### [address] [place] [address] Electrical Solderer: Rosario Linares MD Eosinophils (Bld) [#/Vol] 0.15 10*3/uL Normal 0.00-0.44 [facility] Comment on above: Performed By: #### C DP, PT, MG #### [address] [place] [address] Electrical Solderer: Rosario Linares MD Eosinophils/100 WBC (Bld) 1 % Normal 1-4 [facility] Comment on above: Performed By: #### C DP, PT, MG #### [address] [place], [place] [id number] Electrical Solderer: Rosario Linares MD Erythrocyte distribution width (RBC) [Ratio] 12.8 % Normal 11.8-14.4 [facility] Comment on above: Performed By: #### C DP, PT, MG #### [facility] [address] Chen, [facility] Electrical Solderer: Roasrio Linares MD Hematocrit (Bld) [Volume fraction] 32.7 % Low 36.3-47.1 [facility] Comment on above: Performed By: #### C DP, PT, MG #### [facility] [address] [place] [address] Electrical Solderer: Rosario Linares MD Hemoglobin (Bld) [Mass/Vol] 11.3 g/dL Low 11.9-15.1 [facility] Comment on above: Performed By: #### C DP, PT, MG #### [facility] [address] [place] [address] Dr. Chen, [place] [address] Electrical Solderer: Rosario Linares MD Immature granulocytes/100 WBC (Bld) 2 % High 0 [facility] Comment on above: Performed By: #### C DP, PT, MG #### [address] Chen, [facility] Electrical Solderer: Rosario Linares MD Lymphocytes (Bld) [#/Vol] 2.23 10*3/uL Normal 1.10-3.70 [facility] Comment on above: Performed By: #### C DP, PT, MG #### [facility] [address] Chen, [facility] Electrical Solderer: Rosario Linares MD Lymphocytes/100 WBC (Bld) 17 % Low 24-43 [facility] Comment on above: Performed By: #### C DP, PT, MG #### [facility] [address] Chen, [facility] Electrical Solderer: Rosario Linares MD MCH (RBC) [Entitic mass] 29.7 pg Normal 25.2-33.5 [facility] Comment on above: Performed By: #### C DP, PT, MG #### [facility] [address] [place] [address] Dr. Chen, [place] [id number] Electrical Solderer: Rosario Linares MD MCHC (RBC) [Mass/Vol] 34.6 g/dL Normal 28.4-34.8 [facility] Comment on above: Performed By: #### C DP, PT, MG #### [address] [place], [place] [id number] Electrical Solderer: Rosario Linares MD MCV (RBC) [Entitic vol] 85.8 fL Normal 82.6-102.9 [facility] Comment on above: Performed By: #### C DP, PT, MG #### [address] [place], [place] [id number] Electrical Solderer: Rosario Linares MD Monocytes (Bld) [#/Vol] 0.72 10*3/uL Normal 0.10-1.20 [facility] Comment on above: Performed By: #### C DP, PT, MG #### [address] [place], [place] 6955683 Electrical Solderer: Rosario Linares MD Monocytes/100 WBC (Bld) 5 % Normal 3-12 [facility] Comment on above: Performed By: #### C DP, PT, MG #### [facility] [address] [place] [address] [place] [address] Electrical Solderer: Rosario Linares MD Neutrophil (Seg) 75 % High 36-65 [facility] Comment on above: Performed By: #### C DP, PT, MG #### [facility] [address] [place], [place] [id number] Electrical Solderer: Rosario Linares MD NRBC Automated 0.0 per 100 WBC Normal 0.0 [facility] Comment on above: Performed By: #### C DP, PT, MG #### [facility] [address] [place], [place] [phone] Electrical Solderer: Rosario Linares MD Platelet mean volume (Bld) [Entitic vol] 10.2 fL Normal 8.1-13.5 [facility] Comment on above: Performed By: #### C DP, PT, MG #### [address] [place], [place] [id number] Electrical Solderer: Rosario Linares MD Platelets (Bld) [#/Vol] 293 10*3/uL Normal 138-453 [facility] Comment on above: Performed By: #### C DP, PT, MG #### [address] [place], [place] 1782183 Electrical Solderer: Rosario Linares MD RBC (Bld) [#/Vol] 3.81 10*6/uL Low 3.95-5.11 [facility] Comment on above: Performed By: #### C DP, PT, MG #### [address] [place], [place] 1773383 Electrical Solderer: Rosario Linares MD WBC (Bld) [#/Vol] 13.3 10*3/uL High 3.5-11.3 [facility] Comment on above: Performed By: #### C DP, PT, MG #### [address] [place], [place] 8714983 Electrical Solderer: Rosario Linares MD Comp Metabolic Profon 2023 Albumin [Mass/Vol] 3.5 g/dL Normal 3.5-5.2 [facility] Comment on above: Performed By: #### C P #### [address] [place], [place] 7877483 Electrical Solderer: Rosario Linares MD Albumin/Glob Ratio 1.1 Normal 1.0-2.5 [facility] Comment on above: Performed By: #### C P #### [facility] [address] [place], [place] [phone] Electrical Solderer: Rosario Linares MD Alkaline Phos 103 U/L Normal 35-104 [facility] Comment on above: Performed By: #### C P #### [facility] [address] [place], [place] 7462983 Electrical Solderer: Rosario Linares MD ALT [Catalytic activity/Vol] 16 U/L Normal 5-33 [facility] Comment on above: Performed By: #### C P #### [facility] [address] [place], [place] [phone] Electrical Solderer: Rosario Linares MD Anion gap [Moles/Vol] 10 mmol/L Normal 9-17 [facility] Comment on above: Performed By: #### C P #### [facility] [address] [place], [place] 8219883 Electrical Solderer: Rosario Linares MD AST [Catalytic activity/Vol] 16 U/L Normal <32 [facility] Comment on above: Performed By: #### C P #### [facility] [address] [place], [place] 6623283 Electrical Solderer: Rosario Linares MD Bilirubin [Mass/Vol] 0.2 mg/dL Low 0.3-1.2 [facility] Comment on above: Performed By: #### C P #### [facility] [address] [place], [place] 8932483 Electrical Solderer: Rosario Linares MD BUN/CRE Ratio 18 Normal 9-20 [facility] Comment on above: Performed By: #### C P #### [facility] [address] [place], [place] 0693683 Electrical Solderer: Rosario Linares MD Calcium [Mass/Vol] 8.4 mg/dL Low 8.6-10.4 [facility] Comment on above: Performed By: #### C P #### [facility] [address] [place] [address] Electrical Solderer: Rosario Linares MD Chloride [Moles/Vol] 101 mmol/L Normal 98-107 [facility] Comment on above: Performed By: #### C P #### [facility] [address] [place] [address] Electrical Solderer: Rosario Linares MD CO2 [Moles/Vol] 22 mmol/L Normal 20-31 [facility] Comment on above: Performed By: #### C P #### [facility] [address] [place] [address] Electrical Solderer: Rosario Linares MD Creatinine [Mass/Vol] 0.4 mg/dL Low 0.5-0.9 [facility] Comment on above: Performed By: #### C P #### [facility] [address] [place] [address] Electrical Solderer: Rosario Linares MD GFR/1.73 sq M.predicted among non-blacks MDRD (S/P/Bld) [Vol rate/Area] mL/min/{1.73_m2} Normal >60 [facility] Comment on above: Result Comment: [...] secretion. Performed By: #### C P #### [facility] [address] [place] [address] Electrical Solderer: Rosario Linares MD Glucose [Mass/Vol] 89 mg/dL Normal 70-99 [facility] Comment on above: Performed By: #### C P #### [facility] [address] [place] [address] Electrical Solderer: Rosario Linares MD Potassium [Moles/Vol] 3.7 mmol/L Normal 3.7-5.3 [facility] Comment on above: Performed By: #### C P #### [facility] [address] [place] 7791483 Electrical Solderer: Rosario Linares MD Protein [Mass/Vol] 6.7 g/dL Normal 6.4-8.3 [facility] Comment on above: Performed By: #### C P #### [facility] [address] [place], [place] [phone] Electrical Solderer: Rosario Linares MD Sodium [Moles/Vol] 133 mmol/L Low 135-144 [facility] Comment on above: Performed By: #### C P #### [facility] [address] [place] [address] Electrical Solderer: Rosario Linares MD Urea nitrogen [Mass/Vol] 7 mg/dL Normal 6-20 [facility] Comment on above: Performed By: #### C P #### [facility] [address] [place] [address] Dr. [place], [place] 1798483 Electrical Solderer: Rosario Linares MD D-Dimer Teston 09-20-2023 D-Dimer Test 1.32 ug/mL FEU High 0.00-0.59 [facility] Comment on above: Result Comment: [...] DVT. Performed By: #### D PATI #### [address] [place] [address] Electrical Solderer: Rosario Linares MD Magnesiumon 09-20-2023 Magnesium [Mass/Vol] 1.8 mg/dL Normal 1.6-2.6 [facility] Comment on above: Performed By: #### C DP, PT, MG #### [address] [place] [address] Electrical Solderer: Rosario Linares MD PTon 09-20-2023 INR Coag (PPP) [Relative time] 1.0 {INR} Normal [facility] Comment on above: Result Comment: Therapeutic Range: Moderate Anticoagulant Intensity: INR = 2.0-3.0 High Anticoagulant Intensity: INR = 2.5-3.5 Performed By: #### C DP, PT, MG #### [address] [place] [address] Electrical Solderer: Rosario Linares MD PT Coag (PPP) [Time] 12.8 s Normal 11.7-14.1 [facility] Comment on above: Performed By: #### C DP, PT, MG #### [address] [place] [address] Electrical Solderer: Rosario Linares MD Thyroid Stim. Horm.on 2023 Thyroid Stim. Horm. 2.11 uIU/mL Normal 0.30-5.00 [facility] Comment on above: Performed By: #### T SH #### [facility] [address] [place] [address] Electrical Solderer: Rosario Linares MD Troponinon 09-20-2023 Troponin, High Sens <6 Normal 0-14 [facility] Comment on above: Result Comment: High Sensitivity Troponin values cannot be compared with other Troponin methodologies. Performed By: #### T ROPI #### [facility] [address] [place], [place] [phone] Electrical Solderer: Rosario Linares MD Basic Metabolic Profon 07-25 Anion gap [Moles/Vol] 13 mmol/L Normal 9-17 [facility] Comment on above: Performed By: #### C DP, BMP #### [facility] [address] [place], [place] 1238483 Electrical Solderer: Rosario Linares MD BUN/CRE Ratio 18 Normal 9-20 [facility] Comment on above: Performed By: #### C DP, BMP #### [facility] [address] [place], [place] [phone] Electrical Solderer: Rosario Linares MD Calcium [Mass/Vol] 8.7 mg/dL Normal 8.6-10.4 [facility] Comment on above: Performed By: #### C DP, BMP #### [facility] [address] [place], [place] 7871883 Electrical Solderer: Rosario Linares MD Chloride [Moles/Vol] 100 mmol/L Normal 98-107 [facility] Comment on above: Performed By: #### C DP, BMP #### [facility] [address] [place] [address] Electrical Solderer: Rosario Linares MD CO2 [Moles/Vol] 21 mmol/L Normal 20-31 [facility] Comment on above: Performed By: #### C DP, BMP #### [facility] [address] [place] [address] Electrical Solderer: Rosario Linares MD Creatinine [Mass/Vol] 0.4 mg/dL Low 0.5-0.9 [facility] Comment on above: Performed By: #### C DP, BMP #### [facility] [address] [place] [address] Electrical Solderer: Rosario Linares MD GFR/1.73 sq M.predicted among non-blacks MDRD (S/P/Bld) [Vol rate/Area] mL/min/{1.73_m2} Normal >60 [facility] Comment on above: Result Comment: [...] Performed By: #### C DP, BMP #### [facility] [address] [place] [address] [place] [address] Electrical Solderer: Rosario Linares MD Glucose [Mass/Vol] 115 mg/dL High 70-99 [facility] Comment on above: Performed By: #### C DP, BMP #### [facility] [address] [place] [address] Electrical Solderer: Rosario Linares MD Potassium [Moles/Vol] 3.4 mmol/L Low 3.7-5.3 [facility] Comment on above: Performed By: #### C DP, BMP #### [facility] [address] [place] [address] Electrical Solderer: Rosario Linares MD Sodium [Moles/Vol] 134 mmol/L Low 135-144 [facility] Comment on above: Performed By: #### C DP, BMP #### [facility] [address] [place] [address] Electrical Solderer: Rosario Linares MD Urea nitrogen [Mass/Vol] 7 mg/dL Normal 6-20 [facility] Comment on above: Performed By: #### C DP, BMP #### [facility] [address] [place] [address] Electrical Solderer: Rosario Linares MD CBC with Diffon 07-26-2023 Abs. Basophil 0.04 k/uL Normal 0.00-0.20 [facility] Comment on above: Performed By: #### C DP, BMP #### [address] [place], [facility]83 Electrical Solderer: Rosario Linares MD Abs.Imm.Granulocyte 0.07 k/uL Normal 0.00-0.30 [facility] Comment on above: Performed By: #### C DP, BMP #### [address] [place], [facility] Electrical Solderer: Rosario Linares MD Abs.Neutrophil (Seg) 8.51 k/uL High 1.50-8.10 [facility] Comment on above: Performed By: #### C DP, BMP #### [address] [place] [address] Electrical Solderer: Rosario Linares MD Basophils/100 WBC (Bld) 0 % Normal 0-2 [facility] Comment on above: Performed By: #### C DP, BMP #### [facility] [address] [place], [place] [phone] Electrical Solderer: Rosario Linares MD Eosinophils (Bld) [#/Vol] 0.11 10*3/uL Normal 0.00-0.44 [facility] Comment on above: Performed By: #### C DP, BMP #### [facility] [address] [place] [address] [place] [address]3683 Electrical Solderer: Rosario Linares MD Eosinophils/100 WBC (Bld) 1 % Normal 1-4 [facility] Comment on above: Performed By: #### C DP, BMP #### [facility] [address] [place], [place] 5998583 Electrical Solderer: Rosario Linares MD Erythrocyte distribution width (RBC) [Ratio] 13.0 % Normal 11.8-14.4 [facility] Comment on above: Performed By: #### C DP, BMP #### [facility] [address] [place], [place] 0779783 Electrical Solderer: Rosario Linares MD Hematocrit (Bld) [Volume fraction] 36.2 % Low 36.3-47.1 [facility] Comment on above: Performed By: #### C DP, BMP #### [address] [place], [facility] Electrical Solderer: Rosario Linares MD Hemoglobin (Bld) [Mass/Vol] 12.2 g/dL Normal 11.9-15.1 [facility] Comment on above: Performed By: #### C DP, BMP #### [address] [place], [place] 2535783 Electrical Solderer: Rosario Linares MD Immature granulocytes/100 WBC (Bld) 1 % High 0 [facility] Comment on above: Performed By: #### C DP, BMP #### [facility] [address] [place] [address] Dr. Chen, [facility] Electrical Solderer: Rosario Linares MD Lymphocytes (Bld) [#/Vol] 2.63 10*3/uL Normal 1.10-3.70 [facility] Comment on above: Performed By: #### C DP, BMP #### [address] [place] [address] Electrical Solderer: Rosario Linares MD Lymphocytes/100 WBC (Bld) 22 % Low 24-43 [facility] Comment on above: Performed By: #### C DP, BMP #### [facility] [address] [place] [address] Electrical Solderer: Rosario Linares MD MCH (RBC) [Entitic mass] 29.8 pg Normal 25.2-33.5 [facility] Comment on above: Performed By: #### C DP, BMP #### [facility] [address] [place] [address] Electrical Solderer: Rosario Linares MD MCHC (RBC) [Mass/Vol] 33.7 g/dL Normal 28.4-34.8 [facility] Comment on above: Performed By: #### C DP, BMP #### [facility] [address] [place] [address] Electrical Solderer: Rosario Linares MD MCV (RBC) [Entitic vol] 88.5 fL Normal 82.6-102.9 [facility] Comment on above: Performed By: #### C DP, BMP #### [facility] [address] [place] [address] Electrical Solderer: Rosario Linares MD Monocytes (Bld) [#/Vol] 0.44 10*3/uL Normal 0.10-1.20 [facility] Comment on above: Performed By: #### C DP, BMP #### [facility] [address] [place] [address] Electrical Solderer: Rosario Linares MD Monocytes/100 WBC (Bld) 4 % Normal 3-12 [facility] Comment on above: Performed By: #### C DP, BMP #### [facility] [address] [place] [address] Electrical Solderer: Rosario Linares MD Neutrophil (Seg) 72 % High 36-65 [facility] Comment on above: Performed By: #### C DP, BMP #### [facility] [address] [place] [address] Electrical Solderer: Rosario Linares MD NRBC Automated 0.0 per 100 WBC Normal 0.0 [facility] Comment on above: Performed By: #### C DP, BMP #### [facility] [address] [place], [place] 8841483 Electrical Solderer: Rosario Linares MD Platelet mean volume (Bld) [Entitic vol] 10.3 fL Normal 8.1-13.5 [facility] Comment on above: Performed By: #### C DP, BMP #### [facility] [address] [place], [place] 5387983 Electrical Solderer: Rosario Linares MD Platelets (Bld) [#/Vol] 289 10*3/uL Normal 138-453 [facility] Comment on above: Performed By: #### C DP, BMP #### [facility] [address] [place], [place] 5193883 Electrical Solderer: Rosario Linares MD RBC (Bld) [#/Vol] 4.09 10*6/uL Normal 3.95-5.11 [facility] Comment on above: Performed By: #### C DP, BMP #### [facility] [address] [place], [place] 3498683 Electrical Solderer: Rosario Linares MD WBC (Bld) [#/Vol] 11.8 10*3/uL High 3.5-11.3 [facility] Comment on above: Performed By: #### C DP, BMP #### [facility] [address] [place], [place] 2209283 Electrical Solderer: Rosario Linares MD Troponinon 07-26-2023 Troponin, High Sens 6 ng/L Normal 0-14 [facility] Comment on above: Result Comment: High Sensitivity Troponin values cannot be compared with other Troponin methodologies. Performed By: #### T ROPI #### [facility] [address] [place] [address] Electrical Solderer: Rosario Linares MD UA w/Reflex Cultureon 2023 Bilirubin, SemiQt,Ur Negative Normal NEG [facility] Comment on above: Performed By: #### C DP, BMP #### [facility] [address] [place] [address] Electrical Solderer: Rosario Linares MD Blood, Urine Negative Normal NEG [facility] Comment on above: Performed By: #### C DP, BMP #### [facility] [address] [place] [address] Electrical Solderer: Rosario Linares MD Clarity (U) Clear Normal CLEAR [facility] Comment on above: Performed By: #### C DP, BMP #### [facility] [address] [place] [address] Electrical Solderer: Rosario Linares MD Color (U) Yellow Normal YEL [facility] Comment on above: Performed By: #### C DP, BMP #### [facility] [address] [place] [address] Electrical Solderer: Rosario Linares MD Glucose Ql (U) Negative Normal NEG [facility] Comment on above: Performed By: #### C DP, BMP #### [facility] [address] [place] [address] Electrical Solderer: Rosario Linarse MD Ketones Ql (U) Negative Normal NEG [facility] Comment on above: Performed By: #### C DP, BMP #### [facility] [address] [place] [address] Electrical Solderer: Rosario Linares MD Leukocyte esterase Test strip Ql (U) SMALL Abnormal NEG [facility] Comment on above: Performed By: #### C DP, BMP #### [facility] [address] [place], [place] 9251283 Electrical Solderer: Rosario Linares MD Nitrite,Ur Negative Normal NEG [facility] Comment on above: Performed By: #### C DP, BMP #### [facility] [address] [place] [address] Dr. [place], [place] 8172083 Electrical Solderer: Rosario Linares MD PH,Ur 8.0 Normal 5.0-9.0 [facility] Comment on above: Performed By: #### C DP, BMP #### [facility] [address] [place], [facility] Electrical Solderer: Rosario Linares MD Protein Ql (U) Negative Normal NEG [facility] Comment on above: Performed By: #### C DP, BMP #### [address] [place], [facility] Electrical Solderer: Rosario Linares MD Spec. Ezel,Ur 1.015 Normal 1.010-1.020 [facility] Comment on above: Performed By: #### C DP, BMP #### [facility] [address] [place] [address] Dr. [place], [place] 9992883 Electrical Solderer: Rosario Linares MD Urobilinogen,Ur Normal Normal 0.0-1.0 [facility] Comment on above: Performed By: #### C DP, BMP #### [address] [place], [place] 9915083 Electrical Solderer: Rosario Linares MD Urinalysis,Microon 4 Bacteria TRACE Abnormal NONE [facility] Comment on above: Performed By: #### C DP, BMP #### [facility] [address] [place] [address] Dr. [place], [place] 3878583 Electrical Solderer: Rosario Linares MD Epithelial cells LM Ql (Urine sed) 5 TO 10 Normal 0-25 [facility] Comment on above: Performed By: #### C DP, BMP #### [facility] [address] [place] [address] Dr. [place], [facility] [id number] [employer]: Rosario Linares MD Urine RBC's None Normal 0-2 [facility] Comment on above: Performed By: #### C DP, BMP #### [facility] [address] [place] [address] Electrical Solderer: Rosario Linares MD Urine WBC's 2 TO 5 Normal 0-5 [facility] Comment on above: Performed By: #### C DP, BMP #### [facility] [address] [place] [address] Electrical Solderer: Rosario Linares MD COVID/FLU/RSV RT-PCRon 06-047 SARS-CoV-2 (COVID-19) RNA DEVIN+probe Ql (Unsp spec) Negative [facility] [employer] Other COVID/FLU/RSV RT-PCR Negative [facility] [employer] Other Quick Strepon 06-04-2022 S. pyogenes Org specific cx Ql (Throat) Negative [facility] [employer] Other Quick Strep [facility] [employer] Other CBC AUTO DIFFon 01-24-2022 BASO # 0.1 103/ul Normal 0.0-0.1 [facility] Comment on above: Performed By: #### A FPTET #### [facility] [address] [place] [address] Dr. Belkys Fajardo Basophils/100 WBC (Bld) 0.3 % Normal 0.2-2.0 [facility] Comment on above: Performed By: #### A FPTET #### [facility] [address] [address] [address] Belkys Fajardo EO # 0.1 103/ul Normal 0.0-0.7 [facility] Comment on above: Performed By: #### A FPTET #### [facility] [address] [address] [address] Belkys Fajardo Eosinophils/100 WBC (Bld) 0.9 % Normal 0.9-7.0 [facility] Comment on above: Performed By: #### A FPTET #### [facility] [address] [address] [address] Belkys Fajardo Erythrocyte distribution width (RBC) [Ratio] 14.0 % Normal 11.0-15.0 [facility] Comment on above: Performed By: #### A FPTET #### [facility] [address] [place] [address] Dr. Belkys Fajardo Hematocrit (Bld) [Volume fraction] 24.8 % Critically low 36.0-48.0 [facility] Comment on above: Performed By: #### A FPTET #### [facility] [address] [place] [address] Dr. Belkys Fajardo Hemoglobin (Bld) [Mass/Vol] 8.2 g/dL Critically low 12.0-16.0 [facility] Comment on above: Performed By: #### A FPTET #### [facility] [address] [place] [address] Dr. Belkys Fajardo IG # 0.23 10e3/ul Critically high 0.00-0.03 [facility] Comment on above: Performed By: #### A FPTET #### [facility] [address] [place] [address] Dr. Belkys Fajardo IG % 1.5 % Critically high 0.0-0.5 [facility] Comment on above: Performed By: #### A FPTET #### [facility] [address] [place] [address] Dr. Belkys Fajardo LYMPH # 2.4 103/ul Normal 1.2-3.8 [facility] Comment on above: Performed By: #### A FPTET #### [facility] [address] [place] [address] Dr. Belkys Fajardo Lymphocytes/100 WBC (Bld) 15.5 % Critically low 20.5-60.0 [facility] Comment on above: Performed By: #### A FPTET #### [facility] [address] [place] [address] Dr. Belkys Fajardo MANUAL DIFF REQ NO Normal [facility] Comment on above: Performed By: #### A FPTET #### [facility] [address] [place] [address] Dr. Belkys Fajardo MCH (RBC) [Entitic mass] 28.5 pg Normal 26.7-34.0 [facility] Comment on above: Performed By: #### A FPTET #### [facility] [address] [place] [address] Dr. Belkys Fajardo MCHC (RBC) [Mass/Vol] 33.1 g/dL Normal 29.9-35.2 [facility] Comment on above: Performed By: #### A FPTET #### [facility] [address] [place] [address] Dr. Belkys Fajardo MCV (RBC) [Entitic vol] 86.1 fL Normal 81.0-99.0 [facility] Comment on above: Performed By: #### A FPTET #### [facility] [address] [place] [address] Dr. Belkys Fajardo MONO # 0.8 103/ul Normal 0.3-0.8 [facility] Comment on above: Performed By: #### A FPTET #### [facility] [address] [place] [address] Dr. Belkys Fajardo Monocytes/100 WBC (Bld) 5.4 % Normal 1.7-12.0 [facility] Comment on above: Performed By: #### A FPTET #### [facility] [address] [place] [address] Dr. Belkys Fajardo NEUT # 11.6 103/ul Critically high 1.4-6.[address] [facility] Comment on above: Performed By: #### A FPTET #### [facility] [address] [place] [address] Dr. Belkys Fajardo Neutrophils/100 WBC (Bld) 76.4 % Critically high 43.0-75.0 [facility] Comment on above: Performed By: #### A FPTET #### [facility] [address] [place] [address] Dr. Belkys Fajardo Platelet mean volume (Bld) [Entitic vol] 10.2 fL Normal 9.5-13.5 [facility] Comment on above: Performed By: #### A FPTET #### [facility] [address] [place] [address] Dr. Belkys Fajardo PLT 235 103/ul Normal 150-450 [facility] Comment on above: Performed By: #### A FPTET #### [facility] [address] [place] [address] Dr. Belkys Fajardo RBC 2.88 106/ul Critically low 4.20-5.40 [facility] Comment on above: Performed By: #### A FPTET #### [facility] [address] [place] [address] Dr. Belkys Fajardo WBC 15.2 103/ul Critically high 4.0-11.[address] [facility] Comment on above: Performed By: #### A FPTET #### [facility] [address] [place] [address] Dr. Belkys Fajardo CBC AUTO DIFFon 01-23-2022 BASO # 0.1 103/ul Normal 0.0-0.1 [facility] Comment on above: Performed By: #### A FPTET #### [facility] [address] [place] [address] Dr. Belkys Fajardo Basophils/100 WBC (Bld) 0.4 % Normal 0.2-2.0 [facility] Comment on above: Performed By: #### A FPTET #### [facility] [address] [place] [address] Dr. Belkys Fajardo EO # 0.1 103/ul Normal 0.0-0.7 [facility] Comment on above: Performed By: #### A FPTET #### [facility] [address] [place] [address] Dr. Belkys Fajardo Eosinophils/100 WBC (Bld) 0.5 % Critically low 0.9-7.0 [facility] Comment on above: Performed By: #### A FPTET #### [facility] [address] [place] [address] Dr. Belkys Fajardo Erythrocyte distribution width (RBC) [Ratio] 13.8 % Normal 11.0-15.0 [facility] Comment on above: Performed By: #### A FPTET #### [facility] [address] [place] [address] Dr. Belkys Fajardo Hematocrit (Bld) [Volume fraction] 32.5 % Critically low 36.0-48.0 [facility] Comment on above: Performed By: #### A FPTET #### [facility] [address] [place] [address] Dr. Belkys Fajardo Hemoglobin (Bld) [Mass/Vol] 11.0 g/dL Critically low 12.0-16.0 [facility] Comment on above: Performed By: #### A FPTET #### [facility] [address] [place] [address] Dr. Belkys Fajardo IG # 0.31 10e3/ul Critically high 0.00-0.03 [facility] Comment on above: Performed By: #### A FPTET #### [facility] [address] [place] [address] Dr. Belkys Fajardo IG % 1.6 % Critically high 0.0-0.5 [facility] Comment on above: Performed By: #### A FPTET #### [facility] [address] [place] [address] Dr. Belkys Fajardo LYMPH # 2.0 103/ul Normal 1.2-3.8 [facility] Comment on above: Performed By: #### A FPTET #### [facility] [address] [place] [address] Dr. Belkys Fajardo Lymphocytes/100 WBC (Bld) 10.2 % Critically low 20.5-60.0 [facility] Comment on above: Performed By: #### A FPTET #### [facility] [address] [place] [address] Dr. Belkys Fajardo MANUAL DIFF REQ NO Normal [facility] Comment on above: Performed By: #### A FPTET #### [facility] [address] [address] [address] Belkys Fajardo MCH (RBC) [Entitic mass] 28.4 pg Normal 26.7-34.0 [facility] Comment on above: Performed By: #### A FPTET #### [facility] [address] [place] [address] Dr. Belkys Fajardo MCHC (RBC) [Mass/Vol] 33.8 g/dL Normal 29.9-35.2 [facility] Comment on above: Performed By: #### A FPTET #### [facility] [address] [place] [address] Dr. Belkys Fajardo MCV (RBC) [Entitic vol] 83.8 fL Normal 81.0-99.0 [facility] Comment on above: Performed By: #### A FPTET #### [facility] [address] [place] [address] Dr. Belkys Fajardo MONO # 0.9 103/ul Critically high 0.3-0.8 [facility] Comment on above: Performed By: #### A FPTET #### [facility] [address] [place] [address] Dr. Belkys Fajardo Monocytes/100 WBC (Bld) 4.8 % Normal 1.7-12.0 [facility] Comment on above: Performed By: #### A FPTET #### [facility] [address] [place] [address] Dr. Belkys Fajardo NEUT # 16.0 103/ul Critically high 1.4-6.[address] [facility] Comment on above: Performed By: #### A FPTET #### [facility] [address] [place] [address] Dr. Belkys Fajardo Neutrophils/100 WBC (Bld) 82.5 % Critically high 43.0-75.0 [facility] Comment on above: Performed By: #### A FPTET #### [facility] [address] [place] [address] Dr. Belkys Fajardo Platelet mean volume (Bld) [Entitic vol] 10.1 fL Normal 9.5-13.5 [facility] Comment on above: Performed By: #### A FPTET #### [facility] [address] [address] [address] Belkys Fajardo PLT 301 103/ul Normal 150-450 [facility] Comment on above: Performed By: #### A FPTET #### [facility] [address] [address] [address] Belkys Fajardo RBC 3.88 106/ul Critically low 4.20-5.40 [facility] Comment on above: Performed By: #### A FPTET #### [facility] [address] [address] [address] Belkys Fajardo WBC 19.3 103/ul Critically high 4.0-11.0 [facility] Comment on above: Performed By: #### A FPTET #### [facility] [address] [place] [address] Dr. Belkys Fajardo CULTURE URINEon 01-23-2022 CULTURE URINE Culture Observations : LIGHT GROWTH OF MIXED GENITAL HEYDI. NO POTENTIAL PATHOGENS SEEN. Normal [facility] Comment on above: Performed By: #### U ACSIND, UMICRO #### [facility] [address] [address] [address] Belkys Fajardo [facility] SARS-CoV-2 (COVID-19) RNA DEVIN+probe Ql (Unsp spec) Not detected Normal NOT DETECTED [facility] Comment on above: Result [...] for this test is supported by the [employer] and Human Service's declaration that [...] used). Performed By: #### C VDTBH #### [facility] [address] [place] [address] Dr. Belkys Fajardo DRUG SCREEN RAPID (URINE)on 01-23-2022 AMP Negative Normal NEGATIVE [facility] Comment on above: Performed By: #### A FPTET #### [facility] [address] [place] [address] Dr. Belkys Fajardo BAR Negative Normal NEGATIVE [facility] Comment on above: Performed By: #### A FPTET #### [facility] [address] [place] [address] Dr. Belkys Fajardo BUP Negative Normal NEGATIVE [facility] Comment on above: Performed By: #### A FPTET #### [facility] [address] [place] [address] Dr. Belkys Fajardo BZO Negative Normal NEGATIVE [facility] Comment on above: Performed By: #### A FPTET #### [facility] [address] [place] [address] Dr. Belkys Fajardo VALENCIA Negative Normal NEGATIVE [facility] Comment on above: Performed By: #### A FPTET #### [facility] [address] [place] [address] Dr. Belkys Fajardo CUT-OFFS SEE BELOW Normal [facility] Comment on above: Result [...] ng/mL Performed By: #### A FPTET #### [facility] [address] [place] [address] Dr. Belkys Fajardo DRUG CUT HEADER DRUG CLASS TEST SYSTEM CUT-OFF CONCENTRATIONS ARE FOLLOWS: Normal [facility] Comment on above: Performed By: #### A FPTET #### [facility] [address] [place] [address] Dr. Belkys Fajardo mAMP Negative Normal NEGATIVE [facility] Comment on above: Performed By: #### A FPTET #### [facility] [address] [place] [address] Dr. Belkys Fajardo MTD Negative Normal NEGATIVE [facility] Comment on above: Performed By: #### A FPTET #### [facility] [address] [place] [address] Dr. Belkys Fajardo OPI Negative Normal NEGATIVE [facility] Comment on above: Performed By: #### A FPTET #### [facility] [address] [place] [address] Dr. Belkys Fajardo OXY Negative Normal NEGATIVE [facility] Comment on above: Performed By: #### A FPTET #### [facility] [address] [place] [address] Dr. Belkys Fajardo PCP Negative Normal NEGATIVE [facility] Comment on above: Performed By: #### A FPTET #### [facility] [address] [place] [address] Dr. Belkys Fajardo PPX Negative Normal NEGATIVE [facility] Comment on above: Performed By: #### A FPTET #### [facility] [address] [place] [address] Dr. Belkys Fajardo TCA Negative Normal NEGATIVE [facility] Comment on above: Performed By: #### A FPTET #### [facility] [address] [place] [address] Dr. Belkys Fajardo THC Negative Normal NEGATIVE [facility] Comment on above: Performed By: #### A FPTET #### [facility] [address] [place] [address] Dr. Belkys Fajardo TYPE AND SCREENon 01-23-2022 TYPE AND SCREEN Negative Normal [facility] Comment on above: Performed By: #### U ACSIND, UMICRO #### [facility] [address] [place] [address] Dr. Belkys Fajardo UA (CLEAN/CATCH) CLIENT REPORTING ASSOCIATE/MICRO I F IND.on 01-23-2022 Bilirubin Ql (U) Negative Normal NEGATIVE [facility] Comment on above: Performed By: #### U ACSIND, UMICRO #### [facility] [address] [address] [address] Belkys Fajardo Clarity (U) CLEAR Normal CLEAR [facility] Comment on above: Performed By: #### U ACSIND, UMICRO #### [facility] [address] [place] [address] Dr. Belkys Fajardo Color (U) LT. YELLOW Normal YELLOW [facility] Comment on above: Performed By: #### U ACSIND, UMICRO #### [facility] [address] [address] [address] Belkys Fajardo Glucose Ql (U) Negative Normal NEGATIVE [facility] Comment on above: Performed By: #### U ACSIND, UMICRO #### [facility] [address] [place] [address] Dr. Belkys Fajardo Hemoglobin Ql (U) TRACE-INTACT Abnormal NEGATIVE [facility] Comment on above: Performed By: #### U ACSIND, UMICRO #### [facility] [address] [address] [address] Belkys Fajardo Ketones Ql (U) Negative Normal NEGATIVE [facility] Comment on above: Performed By: #### U ACSIND, UMICRO #### [facility] [address] [address] [address] Belkys Fajardo LEUKOCYTES MODERATE Abnormal NEGATIVE [facility] Comment on above: Performed By: #### U ACSIND, UMICRO #### [facility] [address] [place] [address] Dr. Belkys Fajardo Nitrite Ql (U) Negative Normal NEGATIVE [facility] Comment on above: Performed By: #### U ACSIND, UMICRO #### [facility] [address] [address] [address] Belkys Fajardo pH (U) 6.5 [pH] Normal 5-9 [facility] Comment on above: Performed By: #### U ACSIND, UMICRO #### [facility] [address] [address] [address] Belkys Fajardo SPEC GRAVITY 1.015 Normal 1.005-<=1.025 [facility] Comment on above: Performed By: #### U ACSIND, UMICRO #### [facility] [address] [place] [address] Dr. Belkys Fajardo UA PROTEIN Negative Normal NEGATIVE/ TRACE [facility] Comment on above: Performed By: #### U ACSTAMELA, UMICRO #### [facility] [address] [place] [address] Dr. Belkys Fajardo UR MICRO IND INDICATED Normal [facility] Comment on above: Performed By: #### U ACSTAMELA, ICRO #### [facility] [address] [place] [address] Dr. Belkys Fajardo Urobilinogen Qn (U) 0.2 {Jakob'U}/dL Normal 0.2 - 1. 0 [facility] Comment on above: Performed By: #### U ACSTAMELA, UMICRO #### [facility] [address] [place] [address] Dr. Belkys Fajardo URINE MICROSCOPIC ONLYon BACTERIA SMALL Abnormal NONE SEEN [facility] Comment on above: Performed By: #### U ACSIND, UMICRO #### [facility] [address] [place] [address] Dr. Belkys Fajardo Bacteria identified Cx Nom (U) INDICATED Normal [facility] Comment on above: Performed By: #### U ACSTAMELA, UMICRO #### [facility] [address] [place] [address] Dr. Belkys Fajardo CAST NONE SEEN Normal NONE SEEN [facility] Comment on above: Performed By: #### U ACSIND, UMICRO #### [facility] [address] [address] [address] Belkys Fajardo Crystals LM Nom (Urine sed) NONE SEEN Normal NONE SEEN [facility] Comment on above: Performed By: #### U ACSIND, UMICRO #### [facility] [address] [place] [address] Dr. Belkys Fajardo Epithelial cells LM Ql (Urine sed) FEW Abnormal NONE SEEN /RARE [facility] Comment on above: Performed By: #### U ACSIND, UMICRO #### [facility] [address] [place] [address] Dr. Belkys Fajardo MUCOUS NONE SEEN Normal NONE SEEN [facility] Comment on above: Performed By: #### U ACSIND, UMICRO #### [facility] [address] [place] [address] Dr. Belkys Fajardo RBC NONE SEEN Abnormal 0-2 [facility] Comment on above: Performed By: #### U ACSTAMELA, UMICRO #### [facility] [address] [place] [address] Dr. Belkys Fajardo WBC 5-10 Abnormal NONE SEEN [facility] Comment on above: Performed By: #### U ACSTAMELA, UMICRO #### [facility] [address] [place] [address] Dr. Belkys Fajardo US PREG GROWTHon 01-12-2022 [...] YOGI BLACK Date: 2022-01-12 21:15 Normal [facility] GROUP B STREP CULTUREon 12-26 S. agalactiae Ag Ql (Unsp spec) Culture Observations: NEGATIVE FOR GROUP B STREPTOCOCCUS. Normal [facility] Comment on above: Performed By: #### G BSCX #### [facility] [address] [place] [address] Dr. Belkys Fajardo GTT 3 HR PREGon 12-11-2021 Glucose [Mass/Vol] 91 mg/dL Normal 74-106 [facility] Comment on above: Performed By: #### G TT3P #### [facility] [address] [place] [address] Dr. Belkys Fajardo Glucose [Mass/Vol] 172 mg/dL Normal [facility] Comment on above: Performed By: #### G TT3P #### [facility] [address] [place] [address] Dr. Belkys Fajardo Glucose [Mass/Vol] 148 mg/dL Normal [facility] Comment on above: Performed By: #### G TT3P #### [facility] [address] [place] [address] Dr. Belkys Fajardo Glucose [Mass/Vol] 58 mg/dL Normal [facility] Comment on above: Performed By: #### G TT3P #### [facility] [address] [place] [address] Dr. Belkys Fajardo US PREG GROWTHon 12-08-2021 [...] YOGI WAYNE Date: 2021-12-08 16:52 Normal [facility] GLUCOSE - 1HRon 11-12-2021 Glucose [Mass/Vol] 143 mg/dL Critically high 74-106 [facility] Comment on above: Performed By: #### U ACSIND, UMICRO #### [facility] [address] [place] [address] Dr. Belkys Fajardo HEMOGRAM AND PLATELon 2021 Hematocrit (Bld) [Volume fraction] 31.7 % Critically low 36.0-48.0 [facility] Comment on above: Performed By: #### A FPTET #### [facility] [address] [address] [address] Belkys Fajardo Hemoglobin (Bld) [Mass/Vol] 10.4 g/dL Critically low 12.0-16.0 [facility] Comment on above: Performed By: #### A FPTET #### [facility] [address] [place] [address] Dr. Belkys Fajardo MCH (RBC) [Entitic mass] 28.8 pg Normal 26.7-34.0 [facility] Comment on above: Performed By: #### A FPTET #### [facility] [address] [place] [address] Dr. Belkys Fajardo MCHC (RBC) [Mass/Vol] 32.8 g/dL Normal 29.9-35.2 [facility] Comment on above: Performed By: #### A FPTET #### [facility] [address] [place] [address] Dr. Belkys Fajardo MCV (RBC) [Entitic vol] 87.8 fL Normal 81.0-99.0 [facility] Comment on above: Performed By: #### A FPTET #### [facility] [address] [place], [place] [address] Dr. Belkys Fajardo PLT 261 103/ul Normal 150-450 [facility] Comment on above: Performed By: #### A FPTET #### [facility] [address], [place] [address] Dr. Belkys Fajardo RBC 3.61 106/ul Critically low 4.20-5.40 [facility] Comment on above: Performed By: #### A FPTET #### [facility] [address] [place], [place] [address] Dr. Belkys Fajardo WBC 11.5 103/ul Critically high 4.0-11.[address] [facility] Comment on above: Performed By: #### A FPTET #### [facility] [address] [address] [address] Belkys Fajardo US PREG PLACENTAon 2 [...] by: YOGI BLACK Date: 2021-11-10 21:07 Normal [facility] US PREG PLACENTAon 2 US PREG PLACENTA EXAMINATION: US PREG PLACENTA HISTORY: Low lying placenta COMPARISON: Ultrasound anatomy 09/16/2021 FINDINGS: PLACENTA: Posterior with lower margin 2.5 cm from os. CERVIX LENGTH: 4.4 cm, closed. HEART RATE: 157 bpm OTHER: None. IMPRESSION: 1. Low-lying posterior placenta; no appreciable change compared to prior study. Electronically authenticated by: YOGI BLACK Date: 2021-10-14 19:56 Normal [facility] US PREG ANATOMY SINGLEon US PREG ANATOMY [...] YOGI BLACK Date: 2021-09-16 16:54 Normal [facility] AFP TETRA PROFILE (MATERNAL) on 09-06-2021 PDF . Normal [facility] Comment on above: Performed By: #### A FPTET #### [facility] [address] [address] [address] Belkys Fajardo AFP MoM 0.86 Normal [facility] Comment on above: Performed By: #### A FPTET #### [facility] [address] [address] [address] Belkys Fajardo AFP Value 39.7 ng/mL Normal [facility] Comment on above: Performed By: #### A FPTET #### [facility] [address] [address] [address] Belkys Fajardo Comment Comment Normal [facility] Comment on above: Result Comment: Geremias Greer, Ph.D., [facility] Director . References: Available Upon Request. . Multiples Of Median Cutoffs Abbreviation Definitions For AFP Elevations IDD- Insulin Dep Diabetes Granados 2.5 Black 2.8 OSBR- Open Spina Bifida IDD 2.0 Twins 4.5 Risk DSR Cutoff 1:270 DSR- Down Syndrome Risk T18 Cutoff 1:100 T18- Trisomy 18 . Down Syndrome and Trisomy 18 screening are considered Investigational . For further inquiries contact [facility] at [phone]. Performed By: #### A FPTET #### [facility] [address] [place] [address] Dr. Belkys Fajardo MONIE MoM 0.77 [facility] Comment on above: Performed By: #### A FPTET #### [facility] [address] [place] [address] Dr. Belkys Fajardo MONIE Value 113.50 pg/mL [facility] Comment on above: Performed By: #### A FPTET #### [facility] [address] [place] [address] Dr. Belkys Fajardo DSR (By Age) 1 IN 765 Normal [facility] Comment on above: Performed By: #### A FPTET #### [facility] [address] [place] [address] Dr. Belkys Fajardo DSR (Second Trimester) 1 [place] [address] [facility] Comment on above: Performed By: #### A FPTET #### [facility] [address] [place] [address] Dr. Belkys Gilliland Age on Collection Date 18.7 WEEKS Normal [facility] Comment on above: Performed By: #### A FPTET #### [facility] [address] [place] [address] Dr. Belkys Pablo. Age Based On LMP [facility] Comment on above: Result Comment: 03/30 Performed By: #### A FPTET #### [facility] [address] [place] [address] Dr. Belkys Fajardo hCG MoM 0.78 Normal [facility] Comment on above: Performed By: #### A FPTET #### [facility] [address] [address] [place] [address] m[IU]/mL Normal [facility] Comment on above: Performed By: #### A FPTET #### [facility] [address] [place] [address] Dr. Belkys Fajardo Insulin Dep Diabetes No Normal [facility] Comment on above: Performed By: #### A FPTET #### [facility] [address] [place] [address] Dr. Belkys Fajardo Interpretation Comment Normal [facility] Comment on above: Result Comment: Inte [...] identifies 60% of Trisomy 18 pregnancies. The [employer] recommends amniocentesis be offered to women age 35 and older. Recalculations are not recommended when gestational dating by LMP and ultrasound are within 10 days. Performed By: #### A FPTET #### [facility] [address] [place] [address] Dr. Belkys Fajardo [age] Normal [facility] Comment on above: Performed By: #### A FPTET #### [facility] [address] [place] [address] Dr. Belkys Fajardo Multiple Gestation No Normal [facility] Comment on above: Performed By: #### A FPTET #### [facility] [address] [place] [address] Dr. Belkys Fajardo OSBR [place] 1 [place] [address] Normal [facility] Comment on above: Performed By: #### A FPTET #### [facility] [address] [place] [address] Dr. Belkys Fajardo Race Normal [facility] Comment on above: Performed By: #### A FPTET #### [facility] [address] [address] [address] Belkys Fajardo Results Report Normal [facility] Comment on above: Performed By: #### A FPTET #### [facility] [address] [place] [address] Dr. Belkys Fajardo T18 (By Age) 1:2981 Normal [facility] Comment on above: Performed By: #### A FPTET #### [facility] [address] [place] [address] Dr. Belkys Fajadro T18 Risk Not increased [facility] Comment on above: Performed By: #### A FPTET #### [facility] [address] [place] [address] Dr. Belkys Fajardo Test Results: Negative Normal [facility] Comment on above: Performed By: #### A FPTET #### [facility] [address] [place] [address] Dr. Belkys Fajardo uE3 MoM 1.43 [facility] Comment on above: Performed By: #### A FPTET #### [facility] [address] [place] [address] Dr. Belkys Fajardo uE3 Value 2.26 ng/mL [facility] Comment on above: Performed By: #### A FPTET #### [facility] [address] [place] [address] Dr. Belkys Fajardo PAP ACOG PANEL 2: 21 to 29on 08-24-2021 . . Normal [facility] Comment on above: Result Comment: Perf ormed at: BA Performed By: #### [id number] #### [facility] [address] [place] [address] Dr. Belkys Fajardo Age Gdln ACOG Testing - [facility] Comment on above: Performed By: #### [id number] #### [facility] [address] [place] [address] Dr. Belkys Fajardo DIAGNOSIS: Comment Normal [facility] Comment on above: Result Comment: NEGA TIVE FOR INTRAEPITHELIAL LESION OR MALIGNANCY. Performed at: BA Performed By: #### [id number] #### [facility] [address] [place] [address] Dr. Belkys Fajardo Methodology: Comment Normal [facility] Comment on above: Result Comment: This liquid based ThinPrep(R) pap test was screened with the use of an image guided system. Performed at: WB Performed By: #### [id number] #### [facility] [address] [place] [address] Dr. Belkys Fajardo Note: Comment Normal [facility] Comment on above: Result Comment: The Pap smear is a screening test designed to aid in the detection of premalignant and malignant conditions of the uterine cervix. It is not a diagnostic procedure and should not be used as the sole means of detecting cervical cancer. Both false-positive and false-negative reports do occur. . Performed at: WB Performed By: #### [id number] #### [facility] [address] [place] [address] Dr. Belkys Fajardo Performed by: Comment Normal [facility] Comment on above: Result Comment: Vicky Avila, Wire Welder (ASCP) Performed at: BA Performed By: #### [id number] #### [facility] [address] [place] [address] Dr. Belkys Fajardo Reflex Criteria: Comment Normal [facility] Comment on above: Result Comment: The HPV DNA reflex criteria were not met with this specimen result therefore, no HPV testing was performed. . Performed at: BA Performed By: #### [id number] #### [facility] [address] [place] [address] Dr. Belkys Fajardo Specimen adequacy: Comment Normal [facility] Comment on above: Result Comment: Sati sfactory for evaluation. No endocervical component is identified. Performed at: BA Performed By: #### [id number] #### [facility] [address] [place] [address] Dr. Belkys Fajardo CBC AUTO DIFFon 08-22-2021 BASO # 0.0 103/ul Normal 0.0-0.1 [facility] Comment on above: Performed By: #### C BC #### [facility] [address] [address] [address] Belkys Fajardo Basophils/100 WBC (Bld) 0.2 % Normal 0.2-2.0 [facility] Comment on above: Performed By: #### C BC #### [facility] [address] [address] [address] Belkys Fajardo EO # 0.2 103/ul Normal 0.0-0.7 [facility] Comment on above: Performed By: #### C BC #### [facility] [address] [address] [address] Belkys Fajardo Eosinophils/100 WBC (Bld) 1.9 % Normal 0.9-7.0 [facility] Comment on above: Performed By: #### C BC #### [facility] [address] [place] [address] Dr. Belkys Fajardo Erythrocyte distribution width (RBC) [Ratio] 13.4 % Normal 11.0-15.0 [facility] Comment on above: Performed By: #### C BC #### [facility] [address] [place] [address] Dr. Belkys Fajardo Hematocrit (Bld) [Volume fraction] 32.7 % Critically low 36.0-48.0 [facility] Comment on above: Performed By: #### C BC #### [facility] [address] [place] [address] Dr. Belkys Fajardo Hemoglobin (Bld) [Mass/Vol] 11.0 g/dL Critically low 12.0-16.0 [facility] Comment on above: Performed By: #### C BC #### [facility] [address] [place] [address] Dr. Belkys Fajardo IG # 0.05 10e3/ul Critically high 0.00-0.03 [facility] Comment on above: Performed By: #### C BC #### [facility] [address] [address] [address] Belkys Fajardo IG % 0.5 % Normal 0.0-0.5 [facility] Comment on above: Performed By: #### C BC #### [facility] [address] [place] [address] Dr. Belkys Fajardo LYMPH # 2.3 103/ul Normal 1.2-3.8 [facility] Comment on above: Performed By: #### C BC #### [facility] [address] [place] [address] Dr. Belkys Fajardo Lymphocytes/100 WBC (Bld) 22.4 % Normal 20.5-60.0 [facility] Comment on above: Performed By: #### C BC #### [facility] [address] [place] [address] Dr. Belkys Fajardo MANUAL DIFF REQ NO Normal [facility] Comment on above: Performed By: #### C BC #### [facility] [address] [place] [address] Dr. Belkys Fajardo MCH (RBC) [Entitic mass] 29.3 pg Normal 26.7-34.0 [facility] Comment on above: Performed By: #### C BC #### [facility] [address] [place] [address] Dr. Belkys Fajardo MCHC (RBC) [Mass/Vol] 33.6 g/dL Normal 29.9-35.2 [facility] Comment on above: Performed By: #### C BC #### [facility] [address] [place] [address] Dr. Belkys Fajardo MCV (RBC) [Entitic vol] 87.2 fL Normal 81.0-99.0 [facility] Comment on above: Performed By: #### C BC #### [facility] [address] [place] [address] Dr. Belkys Fajardo MONO # 0.6 103/ul Normal 0.3-0.8 [facility] Comment on above: Performed By: #### C BC #### [facility] [address] [place] [address] Dr. Belkys Fajardo Monocytes/100 WBC (Bld) 5.5 % Normal 1.7-12.0 [facility] Comment on above: Performed By: #### C BC #### [facility] [address] [address] [address] Belkys Fajardo NEUT # 7.1 103/ul Critically high 1.4-6.5 [facility] Comment on above: Performed By: #### C BC #### [facility] [address] [address] [address] Belkys Fajardo Neutrophils/100 WBC (Bld) 69.5 % Normal 43.0-75.0 [facility] Comment on above: Performed By: #### C BC #### [facility] [address] [place] [address] Dr. Belkys Fajardo Platelet mean volume (Bld) [Entitic vol] 10.3 fL Normal 9.5-13.5 [facility] Comment on above: Performed By: #### C BC #### [facility] [address] [place] [address] Dr. Belkys Fajardo PLT 258 103/ul Normal 150-450 [facility] Comment on above: Performed By: #### C BC #### [facility] [address] [place] [address] Dr. Belkys Fajardo RBC 3.75 106/ul Critically low 4.20-5.40 [facility] Comment on above: Performed By: #### C BC #### [facility] [address] [place] [address] Dr. Belkys Fajardo WBC 10.2 103/ul Normal 4.0-11.0 [facility] Comment on above: Performed By: #### C BC #### [facility] [address] [place] [address] Dr. Belkys Fajardo CTA CHEST WO W [...] ROSARIO HERNANDEZ Date: 2021-08-22 08:31 Normal [facility] Covid-19 PCR (CVDTB)on 07-27 SARS-CoV-2 (COVID-19) RNA DEVIN+probe Ql (Unsp spec) Not detected Normal NOT DETECTED [facility] Comment on above: Result [...] for this test is supported by the [place] of [employer] and Human Service's declaration that [...] used). Performed By: #### C VDTBH #### [facility] [address] [place] [address] Dr. Belkys Fajardo PROF 14(COMP METB)on 022 Albumin [Mass/Vol] 3.0 g/dL Critically low 3.4-5.0 [facility] Comment on above: Performed By: #### A FPTET #### [facility] [address] [address] [address] Belkys Fajardo Albumin/Globulin [Mass ratio] 0.8 {ratio} Normal [facility] Comment on above: Performed By: #### A FPTET #### [facility] [address] [address] [address] Belkys Fajardo ALP [Catalytic activity/Vol] 52 U/L Normal 46-116 [facility] Comment on above: Performed By: #### A FPTET #### [facility] [address] [place] [address] Dr. Belkys Fajardo ALT [Catalytic activity/Vol] 32 U/L Normal 14-59 [facility] Comment on above: Performed By: #### A FPTET #### [facility] [address] [place] [address] Dr. Belkys Fajardo Anion gap [Moles/Vol] 12.8 mmol/L Normal [facility] Comment on above: Performed By: #### A FPTET #### [facility] [address] [place] [address] Dr. Belkys Fajardo AST [Catalytic activity/Vol] 17 U/L Normal 15-37 [facility] Comment on above: Performed By: #### A FPTET #### [facility] [address] [place] [address] Dr. Belkys Fajardo Bilirubin [Mass/Vol] 0.3 mg/dL Normal 0.2-1.0 [facility] Comment on above: Performed By: #### A FPTET #### [facility] [address] [place] [address] Dr. Belkys Fajardo Calcium [Mass/Vol] 8.5 mg/dL Normal 8.5-10.1 [facility] Comment on above: Performed By: #### A FPTET #### [facility] [address] [place] [address] Dr. Belkys Fajardo Chloride [Moles/Vol] 103 mmol/L Normal 98-107 [facility] Comment on above: Performed By: #### A FPTET #### [facility] [address] [address] [address] Belkys Fajardo CO2 [Moles/Vol] 24.7 mmol/L Normal 21.0-32.[address] [facility] Comment on above: Performed By: #### A FPTET #### [facility] [address] [place] [address] Dr. Belkys Fajardo Creatinine [Mass/Vol] 0.46 mg/dL Critically low 0.55-1.02 [facility] Comment on above: Performed By: #### A FPTET #### [facility] [address] [place] [address] Dr. Belkys Fajardo EGFR-AF ALBANIAN >60 Normal >=[address] [facility] Comment on above: Performed By: #### A FPTET #### [facility] [address] [place] [address] Dr. Belkys Fajardo EGFR-NON AF ALBANIAN >60 Normal >=60 [facility] Comment on above: Performed By: #### A FPTET #### [facility] [address] [place] [address] Dr. Belkys Fajardo Globulin (S) [Mass/Vol] 3.7 g/dL Normal [facility] Comment on above: Performed By: #### A FPTET #### [facility] [address] [place] [address] Dr. Belkys Fajardo Glucose [Mass/Vol] 84 mg/dL Normal 74-106 [facility] Comment on above: Performed By: #### A FPTET #### [facility] [address] [place] [address] Dr. Belkys Fajardo Potassium [Moles/Vol] 3.5 mmol/L Normal 3.5-5.1 [facility] Comment on above: Performed By: #### A FPTET #### [facility] [address] [place] [address] Dr. Belkys Fajardo Protein [Mass/Vol] 6.7 g/dL Normal 6.4-8.2 [facility] Comment on above: Performed By: #### A FPTET #### [facility] [address] [place] [address] Dr. Belkys Fajardo Sodium [Moles/Vol] 137 mmol/L Normal 136-145 [facility] Comment on above: Performed By: #### A FPTET #### [facility] [address] [place] [address] Dr. Belkys Fajardo Urea nitrogen [Mass/Vol] 7.0 mg/dL Normal 7.0-18.0 [facility] Comment on above: Performed By: #### A FPTET #### [facility] [address] [place] [address] Dr. Belkys Fajardo Urea nitrogen/Creatinine [Mass ratio] 15.2 mg/mg Normal [facility] Comment on above: Performed By: #### A FPTET #### [facility] [address] [place] [address] Dr. Belkys Fajardo TROPONIN, HIGH SENSITIVITYon 08-22-2021 HSTROP <4.0 Normal 4.0-51.3 [facility] Comment on above: Result Comment: CUT- OFF POINTS HAVE BEEN ESTABLISHED BASED ON THE FOURTH UNIVERSAL DEFINITIONS OF MYOCARDIAL INFARCTION. THE UPPER REFERENCE LIMIT (URL) OF TROPONIN, DEFINED THE 99TH PERCENTILE OF cTnI DISTRIBUTION IN A REFERENCE POPULATION, HAS BEEN CONFIRMED THE DECISION THRESHOLD FOR AL DIAGNOSIS. Performed By: #### A FPTET #### [facility] [address] [place] [address] Dr. Belkys Fajardo CHLAMYDIA/GONOCOCCUS DEVIN (SW AB/URINE/PAPon 08-21-2021 Chlamydia trachomatis, DEVIN Negative Normal Negative [facility] Comment on above: Performed By: #### C T/NGNA #### [facility] [address] [place] [address] Dr. Belkys Fajardo Neisseria gonorrhoeae, DEVIN Negative Normal Negative [facility] Comment on above: Performed By: #### C T/NGNA #### [facility] [address] [place] [address] Dr. Belkys Fajardo VAGINITIS/VAGINOSIS DNA PROB Gab 08-20-2021 Lani species Negative Normal Negative [facility] Comment on above: Performed By: #### A FPTET #### [facility] [address] [address] [address] Belkys Fajardo Gardnerella vaginalis Negative Normal Negative [facility] Comment on above: Performed By: #### A FPTET #### [facility] [address] [address] [address] Belkys Fajardo Trichomonas vaginalis Negative Normal Negative [facility] Comment on above: Performed By: #### A FPTET #### [facility] [address] [address] [address] Belkys Fajardo Vital Signs Date Time Vital Sign Value Performing Clinician Facility 07-28-2022 10:15-0400 Body height 170.18 cm Nick Ball Other [facility] Other 07-28-2022 10:15-0400 Body mass index (BMI) [Ratio] 27.81 kg/m2 Nick Ball Other [facility] Other 07-28-2022 10:15-0400 Body weight 80.56 kg Nick Ball Other [facility] Other 07-28-2022 10:15-0400 Diastolic blood pressure 75 mm[Hg] Nick Ball Other [facility] Other 07-28-2022 10:15-0400 Systolic blood pressure 112 mm[Hg] Nick Ball Other [facility] Other 06-04-2022 17:00-0500 Body height 170.18 cm Cristal Guidry Other [facility] Other 06-04-2022 17:00-0500 Body mass index (BMI) [Ratio] 28.19 kg/m2 Cristal Guidry Other [facility] Other 06-04-2022 17:00-0500 Body temperature 97.4 [degF] Cristal Guidry Other [facility] Other 06-04-2022 17:00-0500 Body weight 81.65 kg Cristal Guidry Other [facility] Other 06-04-2022 17:00-0500 Respiratory rate 18 /min Cristal Guidry Other [facility] Other 06-04-2022 17:00-0500 SaO2% (BldA) [Mass fraction] 98 % Cristal Guidry Other [facility] Other 09-06-2021 02:05-0400 Body weight 77.[address] CHEYENNE MEADE . [facility] Comment on above: Performed By: #### AFPTET #### [facility] [address] [place] [address] Dr. Belkys Fajardo Encounters Encounter Date Encounter [...] [facility]: [facility] End: 09-07-2023 ambulatory CHEYENNE WOLF Not Available Start: 08-24-2023 End: 08-24-2023 ambulatory CHEYENNE WOLF Not Available Start: 08-10-2023 End: 08-10-2023 ambulatory CHEYENNE WOLF Not Available Start: 07-28-2023 End: 07-30-2023 ambulatory YOGI MARQUEZ [facility] Start: 07-26-2023 End: 07-26-2023 Emergency department patient visit LIS DE LEON [facility] Start: 07-25-2023 End: 07-27-2023 ambulatory YOGI MARQUEZ [facility] Start: 07-13-2023 End: 07-13-2023 ambulatory CHEYENNE WOLF Not Available Start: 06-15-2023 End: 06-15-2023 ambulatory CHEYENNE WOLF Not Available Start: 05-16-2023 End: 05-16-2023 ambulatory CHEYENNE WOLF Not Available Start: 04-08-2023 End: 04-08-2023 ambulatory CHEYENNE WOLF Not Available Start: 07-28-2022 End: 07-28-2022 ambulatory Nick Leonardo Other [facility] Other Start: 07-28-2022 Office outpatient vi sit 15 minutes Nick Leonardo [facility] Start: 07-28-2022 Telephone encounter Nick Leonardo FP [facility] Start: 06-04-2022 End: 06-04-2022 ambulatory Cristal Guidry Other [facility] Other Start: 06-04-2022 Office outpatient ne w [address] [facility] Start: 02-01-2022 End: 02-01-2022 [...] End: 04-10-2021 Subsequent hospital visit by physician [facility] [employer] EKG Comment on above: Palpitations; [...] Patient encounter procedure 04/15/2021 Office Visit Cardiology Ygoi Marquez MD [address] [place] [address] [facility] Start: 11-26-2020 Influenza vaccination Flu vaccine (# 1) [facility] Start: 10-08-2020 DTaP/Tdap/Td vaccine (7 - Td or Tdap) DTaP/Tdap/Td vaccine (7 - Td or Tdap) [facility] Start: 2013 Screening for malign ant neoplasm of cervix Pap smear [facility] Start: 10-30-2007 HIV screening HIV screen [facility] Start: 2004 Depression Screen Depression Screen [facility] Start: 1997 COVID-19 Vaccine (1) COVID-19 Vaccin e (1) [facility] Start: 1993 Varicella vaccine (1 of 2 - 2-dose childhood series) Varicella vaccine (1 of 2 - 2-dose childhood series) [facility] Start: 1992 Hepatitis C screening Hepatitis C [facility] Payers Date Payer Category Payer Unknown [id number] 1.2. [id number] 1992 Unknown [id number] 2.16.84 0.1.173233.3.579.2.593 1992 Unknown [id number] 2.16.84 0.1.029809.3.579.2.593 1992 Unknown [id number] 2.16.84 0.1.403204.3.579.2.593 1992 Unknown [id number] 2.16.84 0.1.716536.3.579.2.593 1992 Unknown [id number] 2.16.84 0.1.307111.3.579.2.593 1992 Unknown [id number] 2.16.84 0.1.963783.3.579.2.593 1992 Unknown [id number] 2.16.84 0.1.604056.3.579.2.593 1992 Unknown [id number] 2.16.84 0.1.391948.3.579.2.593 1992 Unknown [id number] 2.16.84 0.1.417305.3.579.2.593 1992 Unknown [id number] 2.16.84 0.1.660558.3.579.2.593 1992 Unknown [id number] 2.16.84 0.1.782979.3.579.2.593 1992 Unknown [id number] 2.16.84 0.1.116449.3.579.2.593 1992 Unknown [id number] 2.16.84 0.1.385586.3.579.2.593 1992 Unknown [id number] 2.16.8 40.1.455099.3.579.2.173 1992 Unknown [id number] 2.16.8 40.1.432341.3.579.2.173 1992 Unknown [id number] 2.16.8 40.1.510483.3.579.2.173 1992 Unknown [id number] 2.16.8 40.1.827722.3.579.2.173 1992 Unknown [id number] 2.16.84 0.1.476756.3.579.2.9 1992 Unknown [id number] 2.16.84 0.1.039938.3.579.2.1258 1992 Unknown [id number] 2.16.84 0.1.011762.3.579.2.1258 1992 Unknown [id number] 2.16.84 0.1.883794.3.579.2.1258 1992 Unknown [id number] 2.16.84 0.1.707127.3.579.2.9 1992 Unknown [id number] 2.16.84 0.1.723070.3.579.2.1258 1992 Unknown [id number] 2.16.84 0.1.178771.3.579.2.1258 1992 Unknown [id number] 2.16.84 0.1.336316.3.579.2.1258 1992 Unknown [id number] 2.16.84 0.1.458903.3.579.2.1258 1992 Unknown [id number] 2.16.84 0.1.736191.3.579.2.9 1992 Unknown [id number] 2.16.84 0.1.926172.3.579.2.1259 1992 Unknown [id number] 2.16.84 0.1.732256.3.579.2.1259 1959 Unknown [id number] Social History Date Type Detail Facility Start: 08-29-2014 Tobacco smoking status NHIS Never smoked tobacco [facility] Phone: Start: 08-29-2014 Tobacco use and exposure Smokeless tobacco non-user [facility] Phone: Start: 03-09-2021 Alcohol intake Current drinke r of alcohol (finding) [facility] Phone: Start: 03-09-2021 Alcohol intake [employer] [facility] Phone: Start: 08-29-2014 History SDOH Alcohol Comment occ. [facility] Phone: Start: 1992 Sex Assigned At Not on file [facility] Phone: Sex Assigned At Sex Assigned At Bir th [facility] Other Evaluation note 07-28-2022 Note Date & [...] Monitor for now may not need treatment [facility] Other Evaluation note 06-04-2022 Note Date & [...] other viral communicable diseases (ICD-10 - Z20.828) [facility] Other Clinical Note 01-23-2022 Note Date & Type Note Facility 01-23-2022 Note OPERATIVE NOTE OPERATION DATE: 02/18/2022 PROCEDURE: Repair of fourth degree perineal laceration. PREOPERATIVE DIAGNOSIS: Fourth degree perineal laceration. POSTOPERATIVE DIAGNOSIS: Fourth degree perineal laceration. ANESTHESIA: Epidural SURGEON: Cheyenne Meade D.O. LABORATORY TECHNICAL SPECIALIST: BOBO Cole URINE OUTPUT: Yellow and clear. [...] taken to recovery in stable condition. [facility] Clinical Note 01-23-2022 Note Date & Type Note Facility 01-23-2022 Note OP Note OPERATION DATE: 01/23/2022 PROCEDURE: Repair of fourth degree perineal laceration. PREOPERATIVE DIAGNOSIS: Fourth degree perineal laceration. POSTOPERATIVE DIAGNOSIS: Fourth degree perineal laceration. ANESTHESIA: Epidural SURGEON: Cheyenne Meade D.O. LABORATORY TECHNICAL SPECIALIST: BOBO Cole URINE OUTPUT: Yellow and clear. [...] taken to recovery in stable condition. [facility] Clinical Note 01-23-2022 Note Date & Type Note Facility 01-23-2022 Note OPERATIVE NOTE OPERATION DATE: 02/10/2022 PROCEDURE: Repair of fourth degree laceration. PREOPERATIVE DIAGNOSIS: Fourth degree laceration. POSTOPERATIVE DIAGNOSIS: Fourth degree laceration. ANESTHESIA: General. SURGEON: Cheyenne Meade D.O. LABORATORY TECHNICAL SPECIALIST: BOBO URINE OUTPUT: Yellow and clear. BLOOD [...] sheath and this was done in a [id number] fashion. This was performed using 3-0 Vicryl. [...] The patient tolerated this procedure well. [facility] Clinical Note 08-22-2021 Note Date [...] by: DERIC VO Date: 2021-08-22 07:30 [facility] Evaluation note Note Date & Type Note Facility Evaluation note Diagnosis Palpitations Post-COVID chronic palpitations Shortness of breath Lightheaded Dizziness and giddiness Dizziness Dizziness and giddiness documented in this encounter [facility]: Evaluation note Note Date & Type Note Facility Evaluation note No Information [facility] Other History general Narrative - Reported Note Date & Type Note Facility History general Narrative - Reported Type Medical History POTS Medical History sinus tachycardia Surgical History 4th degree vaginal tear after g iving 2021 [facility] Other History general Narrative - Reported Note Date & Type Note Facility History general Narrative - Reported Type Medical History POTS Medical History sinus tachycardia Medical History Anxiety, generalized Surgical History 4th degree vaginal t ear after giving 2021 Surgical History MASTOPEXY OF BOTH BR EASTS WITH INSERTION OF SALINE IMPLANTS Hospitalization History SEE SURGICAL HX [facility] Other Reason for Referral Specialty Diagnoses / Procedures Referred By Willy smith Referred To Contact Cardiology Diagnoses Palpitations Post-COVID chronic palpitations Shortness of breath Lightheaded Dizziness Procedures Holter Monitor 24 Hour Yogi Marquez MD [address] [place] [id number] Referral ID Status Reason Start Date Expiration Date Visits Re quested Visits Authorized [id number] Open 03/09/2021 03/09/2022 1 1 Advance Directives No Advanced Directives Records FoundDocuments on File Type Date Recorded 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 ACP-Advance Directive ACP-Power of Internet Marketing Director Summary Purpose Family History No Family History Records FoundNo Family History Records FoundNo Family History Records Found Additional Source Comments Reason for Visit (unrecogniz ed section and content) Specialty Diagnoses / Procedures Referred By Willy smith Referred To Contact Cardiology Diagnoses Palpitations Post-COVID chronic palpitations Shortness of breath Lightheaded Dizziness Procedures Holter Monitor 24 Hour Yogi Marquez MD [address] [place] [address] Referral ID Status Reason Start Date Expiration Date Visits Re quested Visits Authorized [id number] Open 03/09/2021 03/09/2022 1 1 Care Teams (unrecognized sec tion and content) 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 [employer] provides no warranty or guarantee of the accuracy or completeness of information in this document.
[2023-11-10] MEDS: 0.9 % SODIUM CHLORIDE 1,000 ML 1000 ML IV ×2 (06:00→07:10)
[2023-11-10 06:45] LABS: Basophils Percent Auto 0.4 % (0.2-2.0); Eosinophils Absolute Auto 0.2 10^3/uL (0.0-0.7); Eosinophils Percent Auto 1.3 % (0.9-7.0); Hemoglobin 10.2 g/dL (12.0-16.0); Immature Granulocytes Abs Auto 0.14 10^3/uL (0.00-0.03); Immature Granulocytes Pct Auto 1.2 % (0.0-0.5); Lymphocytes Absolute Auto 2.7 10^3/uL (1.2-3.8); Lymphocytes Percent Auto 23.9 % (20.5-60.0); Mean Corpuscular HGB Conc 32.9 g/dL (29.9-35.2); Mean Corpuscular Hemoglobin 28.5 pg (26.7-34.0); Mean Corpuscular Volume 86.6 fL (81.0-99.0); Mean Platelet Volume 10.9 fL (9.5-13.5); Monocytes Absolute Auto 0.7 10^3/uL (0.3-0.8); Monocytes Percent Auto 6.4 % (1.7-12.0); Neutrophils Absolute Auto 7.5 10^3/uL (1.4-6.5); Neutrophils Percent Auto 66.8 % (43.0-75.0); Platelet Count 213 10^3/uL (150-450); Red Blood Count 3.58 10^6/uL (4.20-5.40); Red Cell Distribution Width 13.5 % (11.0-15.0); White Blood Count 11.3 10^3/uL (4.0-11.0)
[2023-11-10 07:22] LABS: Amphetamine Screen Urine NEGATIVE (NEGATIVE); Barbiturates Screen Urine NEGATIVE (NEGATIVE); Benzodiazepines Screen Urine NEGATIVE (NEGATIVE); Buprenorphine Screen Urine NEGATIVE (NEGATIVE); Cannabinoid Screen Urine NEGATIVE (NEGATIVE); Cocaine Screen Urine NEGATIVE (NEGATIVE); Methadone Screen Urine NEGATIVE (NEGATIVE); Methamphetamines Screen Urine NEGATIVE (NEGATIVE); Opiate Screen Urine NEGATIVE (NEGATIVE); Oxycodone Screen Urine NEGATIVE (NEGATIVE); Phencyclidine Screen Urine NEGATIVE (NEGATIVE); Tricyclic Antidepressant Urine NEGATIVE (NEGATIVE)
[2023-11-10] MEDS: METOCLOPRAMIDE HCL 10 MG/2 ML VIAL IVP (07:22)
[2023-11-10] MEDS: FAMOTIDINE/PF 20 MG/2 ML VIAL IV (07:22)
[2023-11-10] MEDS: CITRIC ACID/SODIUM CITRATE 30 ML SOLUTION ORACIT SHOHL'S SOLN PO (07:22)
[2023-11-10] MEDS: CEFAZOLIN SODIUM/DEXTROSE,ISO 2 GM/50 ML PIGGYBACK IV ×2 (07:32→14:06)
--- NOTE | 2023-11-10 08:16 | PM.OBPRCCS ---
Procedure Pre-op/Post-op diagnoses: Pre-Op/Post-Op Diagnoses Operation Date: 11/10/23 07:30 <No data on this case meets the specified criteria> Procedure: Procedures Operation Date: 11/10/23 07:30 Actual Procedure Side Surgeon p Not Applicable Jordan Meade DO Provider Engagement Executive: Rhea Deshpande Estimated blood loss (mL): 575 Disposition: floor Anesthesia type: Spinal
--- NOTE | 2023-11-10 08:17 | P.ON_ITS ---
Brief Operative Note Date of procedure: 11/10/23 Pre-op diagnosis general: iup at 39wks, ho 4th degree vaginal laceration, magdi res section Post-op diagnosis: same as pre-op Procedure: NAME OF PROCEDURE: [ section ] PROCEDURE: Patient was taken back to the Operating Room where she was given a spinal anesthesia with Duramorph without difficulty. She was prepped and draped in the normal sterile fashion. A Pfannenstiel skin incision was then made 2 cm above the symphysis pubis and carried down to underlying rectus fascia using a Bovie. The fascia was incised in the midline and extended laterally using Bill scissors. Two Brenton clamps were placed on the superior aspect of the fascia and dissected off the underlying rectus muscles. The same was performed on the inferior aspect as well. The muscles were then in the midline. Peritoneum was identified and entered bluntly. The peritoneum was then extended superiorly and inferiorly with good visualization of the bladder. The bladder blade was inserted. A low transverse incision was made on the patient's uterus and extended laterally digitally. The infant was then delivered atraumatically after the bladder blade was removed in the cephalic position. The cord was clamped and cut. Cord blood was obtained. The infant was handed off to awaiting team. The patient's placenta was spontaneously delivered. The uterus was then exteriorized. The uterus was cleared of all clots and debris. The bladder blade was reinserted. The patient's uterine incision was closed using #0 Vicryl in a running lock fashion. Excellent hemostasis was assured. The uterus was then returned to the patient's abdomen. The patient's abdomen was copiously irrigated using warm saline. Peritoneal gutters were cleared of all clots and debris. Again excellent hemostasis was assured. The patient's peritoneum was closed using 3-0 Vicryl in a running fashion. The patient's fascia was closed using #0 Vicryl in a running fashion. The patient's skin was closed using 4-0 Vicryl subcuticularly. The patient tolerated the procedure well. Sponge, lap, and needle counts were correct x2. The patient was taken to the Recovery Room in stable condition. Anesthesia: spinal Surgeon: Jordan Meade Asbestos Brake Lining Finisher Helper: Rhea Deshpande Estimated blood loss (mL): 575 Pathology: none sent Condition: stable Disposition: floor Urinary Catheter Management Urinary Catheter Management Urethral: Cath placed during this visit: no
[2023-11-10] MEDS: LACTATED RINGER'S SOLUTION 1,000 ML 50 ML IV ×2 (08:24→08:25)
[2023-11-10] MEDS: OXYTOCIN/0.9 % SODIUM CHLORIDE 20 UNITS/1,000 ML PLAST..BAG 125 UNIT IV (09:21)
[2023-11-10] MEDS: KETOROLAC TROMETHAMINE 30 MG/ML VIAL IVP (14:06)
[2023-11-10] MEDS: ACETAMINOPHEN 500 MG TABLET 1000 MG PO ×2 (16:09→23:48)
[2023-11-10] MEDS: ENOXAPARIN SODIUM 40 MG/0.4 ML SYRINGE SUBQ (20:16)
[2023-11-10] MEDS: IBUPROFEN 400 MG TABLET 800 MG PO (20:51)
[2023-11-11] VITALS (7 sets, daily range): BP systolic 113–124; BP diastolic 72–79; PULSE 86–106; TEMP 36.7–36.8; O2SAT 96
[2023-11-11] MEDS: IBUPROFEN 400 MG TABLET 800 MG PO ×3 (04:51→22:23)
[2023-11-11 06:37] LABS: Basophils Percent Auto 0.2 % (0.2-2.0); Eosinophils Absolute Auto 0.1 10^3/uL (0.0-0.7); Eosinophils Percent Auto 0.3 % (0.9-7.0); Hemoglobin 8.4 g/dL (12.0-16.0); Immature Granulocytes Abs Auto 0.27 10^3/uL (0.00-0.03); Immature Granulocytes Pct Auto 1.5 % (0.0-0.5); Lymphocytes Absolute Auto 2.6 10^3/uL (1.2-3.8); Lymphocytes Percent Auto 14.5 % (20.5-60.0); Mean Corpuscular HGB Conc 33.6 g/dL (29.9-35.2); Mean Corpuscular Volume 86.2 fL (81.0-99.0); Mean Platelet Volume 10.8 fL (9.5-13.5); Monocytes Percent Auto 5.4 % (1.7-12.0); Neutrophils Absolute Auto 13.9 10^3/uL (1.4-6.5); Neutrophils Percent Auto 78.1 % (43.0-75.0); Platelet Count 208 10^3/uL (150-450); Red Cell Distribution Width 13.6 % (11.0-15.0); White Blood Count 17.8 10^3/uL (4.0-11.0)
[2023-11-11] MEDS: ACETAMINOPHEN 500 MG TABLET 1000 MG PO ×2 (07:35→20:16)
--- NOTE | 2023-11-11 12:01 | P.OBPN_ITS ---
OB - PN: Subj Subjective Patient comments: no complaints and pain well controlled [place] status: doing well Exam Constitutional Vital Signs, click to edit/add: Last Vital Signs Temp 98.0 F 11/11/23 04:52 Pulse 86 11/11/23 08:36 Resp 14 11/11/23 08:36 BP 114/72 11/11/23 08:36 Pulse Ox 99 11/10/23 16:18 O2 Del Method Room Air 11/11/23 08:37 Documenting provider has reviewed patient's vital signs: yes Common normals: no apparent distress Respiratory Common normals: normal respiratory effort and clear to auscultation bilaterally Cardio Common normals: regular rate and regular rhythm GI Common normals: Normal to inspection, nondistended, normoactive bowel sounds present Extremity Common normals: no clubbing, cyanosis or edema and no calf tenderness Results Labs Labs: Short CBC 11/11/23 Range/Units 06:22 WBC 17.8 H (4.0-11.0) 10^3/uL Hgb 8.4 L (12.0-16.0) g/dL Hct 25.0 L (36.0-48.0) % Plt Count 208 (150-450) 10^3/uL Urinary Catheter Management Urinary Catheter Management Urethral: Cath placed during this visit: yes, but has since been removed by the lori se Removal date: 11/11/23 Removal time: 05:00 OB - PN: A/P Plan - day: 1 Plan: routine postop care Time Spent with Patient Time: Total time spent is greater than 50% in coordination of care (as documented) at patient's floor/unit and/or counseling patient: Total time spent with greater than 50% in coordination of care (as documented) at patient's floor/unit and/or counseling patient: less than 15 minutes
[2023-11-11] MEDS: OXYCODONE HCL/ACETAMINOPHEN 5MG/325MG 1 TAB PO (15:17)
--- NOTE | 2023-11-11 18:16 | RESP.RT ---
done per nursing
[2023-11-11] MEDS: ENOXAPARIN SODIUM 40 MG/0.4 ML SYRINGE SUBQ (20:15)
[2023-11-11] MEDS: DOCUSATE SODIUM 100 MG CAPSULE PO (20:16)
[2023-11-12] VITALS (7 sets, daily range): BP systolic 109–117; BP diastolic 67–79; PULSE 87–94; TEMP 36.1–37.3; O2SAT 98
[2023-11-12] MEDS: OXYCODONE HCL/ACETAMINOPHEN 5MG/325MG 1 TAB PO (01:51)
[2023-11-12] MEDS: IBUPROFEN 400 MG TABLET 800 MG PO ×3 (06:27→23:12)
[2023-11-12] MEDS: DOCUSATE SODIUM 100 MG CAPSULE PO ×2 (09:43→21:23)
[2023-11-12] MEDS: ACETAMINOPHEN 500 MG TABLET 1000 MG PO ×2 (09:43→17:52)
--- NOTE | 2023-11-12 17:26 | RESP.RT ---
Done per nursing
--- NOTE | 2023-11-12 19:28 | PC.NURSE ---
1728 All charting by Mary DYE agreed with by this RN.
[2023-11-12] MEDS: ENOXAPARIN SODIUM 40 MG/0.4 ML SYRINGE SUBQ (21:23)
[2023-11-13] MEDS: IBUPROFEN 400 MG TABLET 800 MG PO (06:55)
--- NOTE | 2023-11-13 09:16 | P.OBPN_ITS ---
OB - PN: Subj Subjective Patient comments: no complaints Exam Narrative Exam Narrative: THIS NOTE REFERS TO YESTERDAY WHEN SHE WAS ROUNDED ON HOWEVER SOMEHOW THE NOTED DID NOT GET SAVED Constitutional Vital Signs, click to edit/add: Last Vital Signs Temp 97.0 F L 11/12/23 23:14 Pulse 87 11/12/23 23:14 Resp 18 11/12/23 23:15 BP 110/67 11/12/23 23:14 Pulse Ox 98 11/12/23 10:00 O2 Del Method Room Air 11/12/23 23:15 Documenting provider has reviewed patient's vital signs: yes Common normals: no apparent distress, average body habitus, oriented x3, no limitations, healthy appearing, alert and well nourished HENMT Common normals: normocephalic and head/scalp atraumatic Eye Pupil: PERRL and accommodation reflex normal Neck & C-Spine Common normals: full ROM and supple Respiratory Common normals: normal respiratory effort Cardio Common normals: regular rate and regular rhythm GI Common normals: Normal to inspection, nondistended, normoactive bowel sounds pre sent Common normals: no CVA tenderness Back & Pelvis Common normals: no thoracic nor lumbar tenderness Extremity Common normals: normal to inspection, full ROM and no calf tenderness Neuro Common normals: CN's II-XII intact bilaterally, no focal motor deficits and no sensory deficits noted Motor exam: strength 5/5 throughout Psych Common normals: mental status grossly normal, thought process normal, cooperative, affect normal and speech normal Urinary Catheter Management Urinary Catheter Management Urethral: Cath placed during this visit: yes, but has since been removed by the nurse Removal date: 11/11/23 Removal time: 05:00 OB - PN: A/P Assessment and Plan (1) delivery delivered: Assessment and Plan: HAD PRIMARY CS FOR HISTORY OF FOUTH DEGREE REPAIR IN PRIOR DELIVERY. DOING WELL. BREAST FEEDING WITH SUPPLEMENTATION. EXAM NONFOCAL. INCISION DRY AND INTACT. Plan - day: 1 Time Spent with Patient Time: Total time spent is greater than 50% in coordination of care (as documented) at patient's floor/unit and/or counseling patient: Total time spent with greater than 50% in coordination of care (as documented) at patient's floor/unit and/or counseling patient: less than 15 minutes
--- NOTE | 2023-11-13 09:25 | PM.OBDS ---
DS: Providers Provider Date of admission: 11/10/23 05:33 Primary care physician: LIS DE LEON Admitting clinician: Jordan Meade Consults: 11/10/23 Consult to Anesthesiology Routine Consulting Provider: Ean Burt Reason for consultation: epidural Discharging clinician: Cadence Cui Anticipated date of discharge: 11/13/23 DS: Diagnosis Discharge Diagnosis (1) delivery delivered: Assessment and plan: EXAM NORMAL. VSS. NO COMPLAINTS. EATING, VOIDING AND AMBULATING NORMALLY. Plan DISCHARGE INSTRUCTIONS GIVEN WITH STATED UNDERSTANDING. GENERAL COVID AND RSV INSTRUCTIONS GIVEN. TO SCHEDULE INCISION CHECK IN ONE WEEK WITH PROVIDER. CALL FOR PROBLEM OR CONCERN OB - DS: Summary Hospital Course Hospital Course: UNCOMPLICATED Time spent discussing smoking cessation with patient: more than 10 minutes Peripartum Data - Procedures: Procedures Operation Date: 11/10/23 07:30 Actual Procedure Side Surgeon p Not Applicable Jordan Meade DO Peripartum Data - Vaginal Delivery Procedures: Procedures Operation Date: 11/10/23 07:30 Actual Procedure Side Surgeon p Not Applicable Jordan Meade DO Complications complications: none Delivery method: elective section Discharge plan: home Status at Discharge Cognitive/behavioral status at discharge: WNL Functional status at discharge: independent ambulation Overall status at discharge: patient is progressing back to baseline Time Spent with Patient Time attestation: Total time spent providing and/or coordinating discharge services: Time spent: less than 30 minutes Specific discharge activities: NO SWIMMING SIX WEEKS, MAY CLIMB STAIRS, WALKING ONLY EXERCISE FOR SIX WEEKS, NO SEX SIX WEEKS, SPORTS BRA 18/10 IF DECIDES TO STOP BREAST FEEDING, LIMIT CAR TRAVEL FOUR WEEKS, SCRIPTS PROVIDED FOR PERCOCET AND MOTRIN Exam Narrative Exam Narrative: VOICING NO COMPLAINTS Constitutional Vital Signs, click to edit/add: Last Vital Signs Temp 97.0 F L 11/12/23 23:14 Pulse 87 11/12/23 23:14 Resp 18 11/12/23 23:15 BP 110/67 11/12/23 23:14 Pulse Ox 98 11/12/23 10:00 O2 Del Method Room Air 11/12/23 23:15 Documenting provider has reviewed patient's vital signs: yes Common normals: no apparent distress, average body habitus, oriented x3, no limitations, healthy appearing and alert HENMT Common normals: normocephalic and head/scalp atraumatic Eye Pupil: PERRL and accommodation reflex normal Neck & C-Spine Common normals: full ROM and supple Respiratory Common normals: normal respiratory effort Cardio Common normals: regular rate and regular rhythm GI Common normals: Normal to inspection, nondistended, normoactive bowel sounds present Common normals: no CVA tenderness Back & Pelvis Common normals: no thoracic nor lumbar tenderness Extremity Common normals: normal to inspection, full ROM and no calf tenderness Neuro Common normals: CN's II-XII intact bilaterally, moves all extremities, no focal motor deficits and no sensory deficits noted Motor exam: strength 5/5 throughout Psych Common normals: mental status grossly normal, thought process normal, cooperative, affect normal and speech normal Discharge Plan Discharge Disposition: Home, Self-Care Condition: Good Assessment: CLINICAL EXAM NONFOCAL. BONDING WELL WITH BABY. MILK HAS STARTED TO COME IN. VOICING NO COMPLAINTS. VSS. Health Concerns: NONE Plan of Treatment: DISCHARGE HOME Discharge Medications: Continued omeprazole 20 mg tablet,delayed release (DR/EC) 20 mg PO DAILY metoprolol succinate 25 mg tablet extended release 24 hr 25 mg PO DAILY ondansetron HCl 4 mg tablet 4 mg PO Q6H PRN (Reason: nausea and vomiting) Print Language: Tongan Forms: Portal Instructions
[2023-11-13] MEDS: DOCUSATE SODIUM 100 MG CAPSULE PO (10:29)
[2023-11-13 10:31] VITALS: BP 110/79; PULSE 112; TEMP 36.5
[2023-11-13] MEDS: OXYCODONE HCL/ACETAMINOPHEN 5MG/325MG 1 TAB PO (14:13)
--- OUTSIDE RECORDS SUMMARY | 2023-11-14 09:31 | XMS_ITS | CCD ---
Author Organization [facility] Care Team Providers Care Crystal Inspector Name Role Phone Nick Leonardo DO Primary Care Provider [phone] Cristal Guidry Unavailable WOLF ., DR QUINN [...] Unavailable WOLF ., DR QIUNN Attending Unavailable RAE, DR TUCKER Primary Care [...] Cayla Thornton MD 09/21/23 Final result Normal [facility] CBC with Diffon 09-20-2023 Abs. Basophil 0.05 k/uL Normal 0.00-0.20 [facility] Comment on above: Performed By: #### C DP, PT, MG #### [address] [place] [address] Reptile Farmer: Rosario Linares MD Abs.Imm.Granulocyte 0.20 k/uL Normal 0.00-0.30 [facility] Comment on above: Performed By: #### C DP, PT, MG #### [address] [place] [address] Reptile Farmer: Rosario Linares MD Abs.Neutrophil (Seg) 9.90 k/uL High 1.50-8.10 [facility] Comment on above: Performed By: #### C DP, PT, MG #### [address] [place] [address] Reptile Farmer: Rosario Linares MD Basophils/100 WBC (Bld) 0 % Normal 0-2 [facility] Comment on above: Performed By: #### C DP, PT, MG #### [address] [place] [address] Reptile Farmer: Rosario Linares MD Eosinophils (Bld) [#/Vol] 0.15 10*3/uL Normal 0.00-0.44 [facility] Comment on above: Performed By: #### C DP, PT, MG #### [address] [place] [address] Reptile Farmer: Rosario Linares MD Eosinophils/100 WBC (Bld) 1 % Normal 1-4 [facility] Comment on above: Performed By: #### C DP, PT, MG #### [address] [place], [place] [id number] Reptile Farmer: Rosario Linares MD Erythrocyte distribution width (RBC) [Ratio] 12.8 % Normal 11.8-14.4 [facility] Comment on above: Performed By: #### C DP, PT, MG #### [facility] [address] [place], [facility] Reptile Farmer: Rosario Linares MD Hematocrit (Bld) [Volume fraction] 32.7 % Low 36.3-47.1 [facility] Comment on above: Performed By: #### C DP, PT, MG #### [facility] [address] [place] [address] Reptile Farmer: Rosario Linares MD Hemoglobin (Bld) [Mass/Vol] 11.3 g/dL Low 11.9-15.1 [facility] Comment on above: Performed By: #### C DP, PT, MG #### [facility] [address] [place] [address] Dr. [place], [place] [address] Reptile Farmer: Rosario Linares MD Immature granulocytes/100 WBC (Bld) 2 % High 0 [facility] Comment on above: Performed By: #### C DP, PT, MG #### [address] [place], [facility] Reptile Farmer: Rosario Linares MD Lymphocytes (Bld) [#/Vol] 2.23 10*3/uL Normal 1.10-3.70 [facility] Comment on above: Performed By: #### C DP, PT, MG #### [facility] [address] [place], [facility] Reptile Farmer: Rosario Linares MD Lymphocytes/100 WBC (Bld) 17 % Low 24-43 [facility] Comment on above: Performed By: #### C DP, PT, MG #### [facility] [address] [place], [facility] Reptile Farmer: Rosario Linares MD MCH (RBC) [Entitic mass] 29.7 pg Normal 25.2-33.5 [facility] Comment on above: Performed By: #### C DP, PT, MG #### [facility] [address] [place] [address] Dr. [place], [place] [id number] Reptile Farmer: Rosario Linares MD MCHC (RBC) [Mass/Vol] 34.6 g/dL Normal 28.4-34.8 [facility] Comment on above: Performed By: #### C DP, PT, MG #### [address] [place], [place] [id number] Reptile Farmer: Rosario Linares MD MCV (RBC) [Entitic vol] 85.8 fL Normal 82.6-102.9 [facility] Comment on above: Performed By: #### C DP, PT, MG #### [address] [place], [place] 9794683 Reptile Farmer: Rosario Linares MD Monocytes (Bld) [#/Vol] 0.72 10*3/uL Normal 0.10-1.20 [facility] Comment on above: Performed By: #### C DP, PT, MG #### [address] [place], [place] 1021383 Reptile Farmer: Rosario Linares MD Monocytes/100 WBC (Bld) 5 % Normal 3-12 [facility] Comment on above: Performed By: #### C DP, PT, MG #### [facility] [address] [place] [address] [place] [address] Reptile Farmer: Rosario Linares MD Neutrophil (Seg) 75 % High 36-65 [facility] Comment on above: Performed By: #### C DP, PT, MG #### [facility] [address] [place], [place] 8294083 Reptile Farmer: Rosario Linares MD NRBC Automated 0.0 per 100 WBC Normal 0.0 [facility] Comment on above: Performed By: #### C DP, PT, MG #### [facility] [address] [place], [place] [id number] Reptile Farmer: Rosario Linares MD Platelet mean volume (Bld) [Entitic vol] 10.2 fL Normal 8.1-13.5 [facility] Comment on above: Performed By: #### C DP, PT, MG #### [address] [place], [place] 2395583 Reptile Farmer: Rosario Linares MD Platelets (Bld) [#/Vol] 293 10*3/uL Normal 138-453 [facility] Comment on above: Performed By: #### C DP, PT, MG #### [address] [place], [place] [id number] Reptile Farmer: Rosario Linares MD RBC (Bld) [#/Vol] 3.81 10*6/uL Low 3.95-5.11 [facility] Comment on above: Performed By: #### C DP, PT, MG #### [address] [place], [place] 7541383 Reptile Farmer: Rosario Linares MD WBC (Bld) [#/Vol] 13.3 10*3/uL High 3.5-11.3 [facility] Comment on above: Performed By: #### C DP, PT, MG #### [address] [place], [place] [id number] Reptile Farmer: Rosario Linares MD Comp Metabolic Profon 2023 Albumin [Mass/Vol] 3.5 g/dL Normal 3.5-5.2 [facility] Comment on above: Performed By: #### C P #### [address] [place], [place] 0843983 Reptile Farmer: Rosario Linares MD Albumin/Glob Ratio 1.1 Normal 1.0-2.5 [facility] Comment on above: Performed By: #### C P #### [facility] [address] [place], [place] [id number] Reptile Farmer: Rosario Linares MD Alkaline Phos 103 U/L Normal 35-104 [facility] Comment on above: Performed By: #### C P #### [facility] [address] [place], [place] 8185583 Reptile Farmer: Rosario Linares MD ALT [Catalytic activity/Vol] 16 U/L Normal 5-33 [facility] Comment on above: Performed By: #### C P #### [facility] [address] [place], [place] 1661483 Reptile Farmer: Rosario Linares MD Anion gap [Moles/Vol] 10 mmol/L Normal 9-17 [facility] Comment on above: Performed By: #### C P #### [facility] [address] [place], [place] 6484883 Reptile Farmer: Rosario Linares MD AST [Catalytic activity/Vol] 16 U/L Normal <32 [facility] Comment on above: Performed By: #### C P #### [facility] [address] [place], [place] 4094483 Reptile Farmer: Rosario Linares MD Bilirubin [Mass/Vol] 0.2 mg/dL Low 0.3-1.2 [facility] Comment on above: Performed By: #### C P #### [facility] [address] [place], [place] 7864583 Reptile Farmer: Rosario Linares MD BUN/CRE Ratio 18 Normal 9-20 [facility] Comment on above: Performed By: #### C P #### [facility] [address] [place], [place] 2809583 Reptile Farmer: Rosario Linares MD Calcium [Mass/Vol] 8.4 mg/dL Low 8.6-10.4 [facility] Comment on above: Performed By: #### C P #### [facility] [address] [place] [address] Reptile Farmer: Rosario Linares MD Chloride [Moles/Vol] 101 mmol/L Normal 98-107 [facility] Comment on above: Performed By: #### C P #### [facility] [address] [place] [address] Reptile Farmer: Rosario Linares MD CO2 [Moles/Vol] 22 mmol/L Normal 20-31 [facility] Comment on above: Performed By: #### C P #### [facility] [address] [place] [address] Reptile Farmer: Rosario Linares MD Creatinine [Mass/Vol] 0.4 mg/dL Low 0.5-0.9 [facility] Comment on above: Performed By: #### C P #### [facility] [address] [place] [address] Reptile Farmer: Rosario Linares MD GFR/1.73 sq M.predicted among non-blacks MDRD (S/P/Bld) [Vol rate/Area] mL/min/{1.73_m2} Normal >60 [facility] Comment on above: Result Comment: These results [...] secretion. Performed By: #### C P #### [facility] [address] [place] [address] Reptile Farmer: Rosario Linares MD Glucose [Mass/Vol] 89 mg/dL Normal 70-99 [facility] Comment on above: Performed By: #### C P #### [facility] [address] [place] [address] Reptile Farmer: Rosario Linares MD Potassium [Moles/Vol] 3.7 mmol/L Normal 3.7-5.3 [facility] Comment on above: Performed By: #### C P #### [facility] [address] [place] [id number] Reptile Farmer: Rosario Linares MD Protein [Mass/Vol] 6.7 g/dL Normal 6.4-8.3 [facility] Comment on above: Performed By: #### C P #### [facility] [address] [place], [place] 7197983 Reptile Farmer: Rosario Linares MD Sodium [Moles/Vol] 133 mmol/L Low 135-144 [facility] Comment on above: Performed By: #### C P #### [facility] [address] [place] [address] Reptile Farmer: Rosario Linares MD Urea nitrogen [Mass/Vol] 7 mg/dL Normal 6-20 [facility] Comment on above: Performed By: #### C P #### [facility] [address] [place] [address] Dr. [place], [place] 5389983 Reptile Farmer: Rosario Linares MD D-Dimer Teston 09-20-2023 D-Dimer Test 1.32 ug/mL FEU High 0.00-0.59 [facility] Comment on above: Result Comment: When [...] Performed By: #### D PATI #### [address] [place] [address] Reptile Farmer: Rosario Linares MD Magnesiumon 09-20-2023 Magnesium [Mass/Vol] 1.8 mg/dL Normal 1.6-2.6 [facility] Comment on above: Performed By: #### C DP, PT, MG #### [address] [place] [address] Reptile Farmer: Rosario Linares MD PTon 09-20-2023 INR Coag (PPP) [Relative time] 1.0 {INR} Normal [facility] Comment on above: Result Comment: Therapeutic Range: Moderate Anticoagulant Intensity: INR = 2.0-3.0 High Anticoagulant Intensity: INR = 2.5-3.5 Performed By: #### C DP, PT, MG #### [address] [place] [address] Reptile Farmer: Rosario Linares MD PT Coag (PPP) [Time] 12.8 s Normal 11.7-14.1 [facility] Comment on above: Performed By: #### C DP, PT, MG #### [address] [place] [address] Reptile Farmer: Rosario Linares MD Thyroid Stim. Horm.on 2023 Thyroid Stim. Horm. 2.11 uIU/mL Normal 0.30-5.00 [facility] Comment on above: Performed By: #### T SH #### [facility] [address] [place] [address] Reptile Farmer: Rosario Linares MD Troponinon 09-20-2023 Troponin, High Sens <6 Normal 0-14 [facility] Comment on above: Result Comment: High Sensitivity Troponin values cannot be compared with other Troponin methodologies. Performed By: #### T ROPI #### [facility] [address] [place], [place] [id number] Reptile Farmer: Rosario Linares MD Basic Metabolic Profon 07-25 Anion gap [Moles/Vol] 13 mmol/L Normal 9-17 [facility] Comment on above: Performed By: #### C DP, BMP #### [facility] [address] [place], [place] 7706683 Reptile Farmer: Rosario Linares MD BUN/CRE Ratio 18 Normal 9-20 [facility] Comment on above: Performed By: #### C DP, BMP #### [facility] [address] [place], [place] 2511883 Reptile Farmer: Rosario Linares MD Calcium [Mass/Vol] 8.7 mg/dL Normal 8.6-10.4 [facility] Comment on above: Performed By: #### C DP, BMP #### [facility] [address] [place], [place] 1671083 Reptile Farmer: Rosario Linares MD Chloride [Moles/Vol] 100 mmol/L Normal 98-107 [facility] Comment on above: Performed By: #### C DP, BMP #### [facility] [address] [place] [address] Reptile Farmer: Rosario Linares MD CO2 [Moles/Vol] 21 mmol/L Normal 20-31 [facility] Comment on above: Performed By: #### C DP, BMP #### [facility] [address] [place] [address] Reptile Farmer: Rosario Linares MD Creatinine [Mass/Vol] 0.4 mg/dL Low 0.5-0.9 [facility] Comment on above: Performed By: #### C DP, BMP #### [facility] [address] [place] [address] Reptile Farmer: Rosario Linares MD GFR/1.73 sq M.predicted among non-blacks MDRD (S/P/Bld) [Vol rate/Area] mL/min/{1.73_m2} Normal >60 [facility] Comment on above: Result Comment: These results [...] Performed By: #### C DP, BMP #### [facility] [address] [place] [address] [place] [address] Reptile Farmer: Rosario Linares MD Glucose [Mass/Vol] 115 mg/dL High 70-99 [facility] Comment on above: Performed By: #### C DP, BMP #### [facility] [address] [place] [address] Reptile Farmer: Rosario Linares MD Potassium [Moles/Vol] 3.4 mmol/L Low 3.7-5.3 [facility] Comment on above: Performed By: #### C DP, BMP #### [facility] [address] [place] [address] Reptile Farmer: Rosario Linares MD Sodium [Moles/Vol] 134 mmol/L Low 135-144 [facility] Comment on above: Performed By: #### C DP, BMP #### [facility] [address] [place] [address] Reptile Farmer: Rosario Linares MD Urea nitrogen [Mass/Vol] 7 mg/dL Normal 6-20 [facility] Comment on above: Performed By: #### C DP, BMP #### [facility] [address] [place] [address] Reptile Farmer: Rosario Linares MD CBC with Diffon 07-26-2023 Abs. Basophil 0.04 k/uL Normal 0.00-0.20 [facility] Comment on above: Performed By: #### C DP, BMP #### [address] [place], [facility]83 Reptile Farmer: Rosario Linares MD Abs.Imm.Granulocyte 0.07 k/uL Normal 0.00-0.30 [facility] Comment on above: Performed By: #### C DP, BMP #### [address] [place], [facility]83 Reptile Farmer: Rosario Linares MD Abs.Neutrophil (Seg) 8.51 k/uL High 1.50-8.10 [facility] Comment on above: Performed By: #### C DP, BMP #### [address] [place] [address] Reptile Farmer: Rosario Linares MD Basophils/100 WBC (Bld) 0 % Normal 0-2 [facility] Comment on above: Performed By: #### C DP, BMP #### [facility] [address] [place], [place] [phone] Reptile Farmer: Rosario Linares MD Eosinophils (Bld) [#/Vol] 0.11 10*3/uL Normal 0.00-0.44 [facility] Comment on above: Performed By: #### C DP, BMP #### [facility] [address] [place] [address] [address]. [place] [id number] Reptile Farmer: Rosario Linares MD Eosinophils/100 WBC (Bld) 1 % Normal 1-4 [facility] Comment on above: Performed By: #### C DP, BMP #### [facility] [address] [place], [place] 0327583 Reptile Farmer: Rosario Linares MD Erythrocyte distribution width (RBC) [Ratio] 13.0 % Normal 11.8-14.4 [facility] Comment on above: Performed By: #### C DP, BMP #### [facility] [address] [place], [place] 1230183 Reptile Farmer: Rosario Linares MD Hematocrit (Bld) [Volume fraction] 36.2 % Low 36.3-47.1 [facility] Comment on above: Performed By: #### C DP, BMP #### [address] [place], [facility]83 Reptile Farmer: Rosario Linares MD Hemoglobin (Bld) [Mass/Vol] 12.2 g/dL Normal 11.9-15.1 [facility] Comment on above: Performed By: #### C DP, BMP #### [address] [place], [place] 5484383 Reptile Farmer: Rosario Linares MD Immature granulocytes/100 WBC (Bld) 1 % High 0 [facility] Comment on above: Performed By: #### C DP, BMP #### [facility] [address] [place] [address] Dr. [place], [facility] Reptile Farmer: Rosario Linares MD Lymphocytes (Bld) [#/Vol] 2.63 10*3/uL Normal 1.10-3.70 [facility] Comment on above: Performed By: #### C DP, BMP #### [address] [place] [address] Reptile Farmer: Rosario Linares MD Lymphocytes/100 WBC (Bld) 22 % Low 24-43 [facility] Comment on above: Performed By: #### C DP, BMP #### [facility] [address] [place] [address] Reptile Farmer: Rosario Linares MD MCH (RBC) [Entitic mass] 29.8 pg Normal 25.2-33.5 [facility] Comment on above: Performed By: #### C DP, BMP #### [facility] [address] [place] [address] Reptile Farmer: Rosario Linares MD MCHC (RBC) [Mass/Vol] 33.7 g/dL Normal 28.4-34.8 [facility] Comment on above: Performed By: #### C DP, BMP #### [facility] [address] [place] [address] Reptile Farmer: Rosario Linares MD MCV (RBC) [Entitic vol] 88.5 fL Normal 82.6-102.9 [facility] Comment on above: Performed By: #### C DP, BMP #### [facility] [address] [place] [address] Reptile Farmer: Rosario Linares MD Monocytes (Bld) [#/Vol] 0.44 10*3/uL Normal 0.10-1.20 [facility] Comment on above: Performed By: #### C DP, BMP #### [facility] [address] [place] [address] Reptile Farmer: Rosario Linares MD Monocytes/100 WBC (Bld) 4 % Normal 3-12 [facility] Comment on above: Performed By: #### C DP, BMP #### [facility] [address] [place] [address] Reptile Farmer: Rosario Linares MD Neutrophil (Seg) 72 % High 36-65 [facility] Comment on above: Performed By: #### C DP, BMP #### [facility] [address] [place] [address] Reptile Farmer: Rosario Linares MD NRBC Automated 0.0 per 100 WBC Normal 0.0 [facility] Comment on above: Performed By: #### C DP, BMP #### [facility] [address] [place], [place] 8348583 Reptile Farmer: Rosario Linares MD Platelet mean volume (Bld) [Entitic vol] 10.3 fL Normal 8.1-13.5 [facility] Comment on above: Performed By: #### C DP, BMP #### [facility] [address] [place], [place] 9662283 Reptile Farmer: Rosario Linares MD Platelets (Bld) [#/Vol] 289 10*3/uL Normal 138-453 [facility] Comment on above: Performed By: #### C DP, BMP #### [facility] [address] [place], [place] [id number] Reptile Farmer: Rosario Linares MD RBC (Bld) [#/Vol] 4.09 10*6/uL Normal 3.95-5.11 [facility] Comment on above: Performed By: #### C DP, BMP #### [facility] [address] [place], [place] 5586783 Reptile Farmer: Rosario Linares MD WBC (Bld) [#/Vol] 11.8 10*3/uL High 3.5-11.3 [facility] Comment on above: Performed By: #### C DP, BMP #### [facility] [address] [place], [place] [id number] Reptile Farmer: Rosario Linares MD Troponinon 07-26-2023 Troponin, High Sens 6 ng/L Normal 0-14 [facility] Comment on above: Result Comment: High Sensitivity Troponin values cannot be compared with other Troponin methodologies. Performed By: #### T ROPI #### [facility] [address] [place] [address] Reptile Farmer: Rosario Linares MD UA w/Reflex Cultureon 2023 Bilirubin, SemiQt,Ur Negative Normal NEG [facility] Comment on above: Performed By: #### C DP, BMP #### [facility] [address] [place] [address] Reptile Farmer: Rosario Linares MD Blood, Urine Negative Normal NEG [facility] Comment on above: Performed By: #### C DP, BMP #### [facility] [address] [place] [address] Reptile Farmer: Rosario Linares MD Clarity (U) Clear Normal CLEAR [facility] Comment on above: Performed By: #### C DP, BMP #### [facility] [address] [place] [address] Reptile Farmer: Rosario Linares MD Color (U) Yellow Normal YEL [facility] Comment on above: Performed By: #### C DP, BMP #### [facility] [address] [place] [address] Reptile Farmer: Rosario Linares MD Glucose Ql (U) Negative Normal NEG [facility] Comment on above: Performed By: #### C DP, BMP #### [facility] [address] [place] [address] Reptile Farmer: Rosario Linares MD Ketones Ql (U) Negative Normal NEG [facility] Comment on above: Performed By: #### C DP, BMP #### [facility] [address] [place] [address] Reptile Farmer: Rosario Linares MD Leukocyte esterase Test strip Ql (U) SMALL Abnormal NEG [facility] Comment on above: Performed By: #### C DP, BMP #### [facility] [address] [place], [place] 1874583 Reptile Farmer: Rosario Linares MD Nitrite,Ur Negative Normal NEG [facility] Comment on above: Performed By: #### C DP, BMP #### [facility] [address] [place] [address] Dr. [place], [place] 0486583 Reptile Farmer: Rosario Linares MD PH,Ur 8.0 Normal 5.0-9.0 [facility] Comment on above: Performed By: #### C DP, BMP #### [facility] [address] [place], [facility] Reptile Farmer: Rosario Linares MD Protein Ql (U) Negative Normal NEG [facility] Comment on above: Performed By: #### C DP, BMP #### [address] [place], [facility] Reptile Farmer: Rosario Linares MD Spec. Letcher,Ur 1.015 Normal 1.010-1.020 [facility] Comment on above: Performed By: #### C DP, BMP #### [facility] [address] [place] [address] Dr. [place], [place] [id number] Reptile Farmer: Rosario Linares MD Urobilinogen,Ur Normal Normal 0.0-1.0 [facility] Comment on above: Performed By: #### C DP, BMP #### [address] [place], [place] 6308183 Reptile Farmer: Rosario Linares MD Urinalysis,Microon 4 Bacteria TRACE Abnormal NONE [facility] Comment on above: Performed By: #### C DP, BMP #### [facility] [address] [place] [address] Dr. [place], [place] 6092383 Reptile Farmer: Rosario Linares MD Epithelial cells LM Ql (Urine sed) 5 TO 10 Normal 0-25 [facility] Comment on above: Performed By: #### C DP, BMP #### [facility] [address] [place] [address] Dr. [place], [facility] Reptile Farmer: Rosario Linares MD Urine RBC's None Normal 0-2 [facility] Comment on above: Performed By: #### C DP, BMP #### [facility] [address] [place] [address] Reptile Farmer: Rosario Linares MD Urine WBC's 2 TO 5 Normal 0-5 [facility] Comment on above: Performed By: #### C DP, BMP #### [facility] [address] [place] [address] Reptile Farmer: Rosario Linares MD COVID/FLU/RSV RT-PCRon 06-048 SARS-CoV-2 (COVID-19) RNA DEVIN+probe Ql (Unsp spec) Negative [facility] [employer] Other COVID/FLU/RSV RT-PCR Negative [facility] [employer] Other Quick Strepon 06-04-2022 S. pyogenes Org specific cx Ql (Throat) Negative [facility] [employer] Other Quick Strep [facility] [employer] Other CBC AUTO DIFFon 01-24-2022 BASO # 0.1 103/ul Normal 0.0-0.1 [facility] Comment on above: Performed By: #### A FPTET #### [facility] [address] [place] [address] Dr. Belkys Fajardo Basophils/100 WBC (Bld) 0.3 % Normal 0.2-2.0 [facility] Comment on above: Performed By: #### A FPTET #### [facility] [address] [place] [address] [address] Belkys Fajardo EO # 0.1 103/ul Normal 0.0-0.7 [facility] Comment on above: Performed By: #### A FPTET #### [facility] [address] [place] [address] [address] Belkys Fajardo Eosinophils/100 WBC (Bld) 0.9 % Normal 0.9-7.0 [facility] Comment on above: Performed By: #### A FPTET #### [facility] [address] [place] [address] [address] Belkys Fajardo Erythrocyte distribution width (RBC) [Ratio] 14.0 % Normal 11.0-15.0 [facility] Comment on above: Performed By: #### A FPTET #### [facility] [address] [place] [address] Dr. Belkys Fajardo Hematocrit (Bld) [Volume fraction] 24.8 % Critically low 36.0-48.0 [facility] Comment on above: Performed By: #### A FPTET #### [facility] [address] [place] [address] Dr. Belkys Fajardo Hemoglobin (Bld) [Mass/Vol] 8.2 g/dL Critically low 12.0-16.0 [facility] Comment on above: Performed By: #### A FPTET #### [facility] [address] [place] [address] Dr. Belkys Fajardo IG # 0.23 10e3/ul Critically high 0.00-0.03 [facility] Comment on above: Performed By: #### A FPTET #### [facility] [address] [place] [address] Dr. Belkys Fajardo IG % 1.5 % Critically high 0.0-0.5 [facility] Comment on above: Performed By: #### A FPTET #### [facility] [address] [place] [address] Dr. Belkys Fajardo LYMPH # 2.4 103/ul Normal 1.2-3.8 [facility] Comment on above: Performed By: #### A FPTET #### [facility] [address] [place] [address] Dr. Belkys Fajardo Lymphocytes/100 WBC (Bld) 15.5 % Critically low 20.5-60.0 [facility] Comment on above: Performed By: #### A FPTET #### [facility] [address] [place] [address] Dr. Belkys Fajardo MANUAL DIFF REQ NO Normal [facility] Comment on above: Performed By: #### A FPTET #### [facility] [address] [place] [address] Dr. Belkys Fajardo MCH (RBC) [Entitic mass] 28.5 pg Normal 26.7-34.0 [facility] Comment on above: Performed By: #### A FPTET #### [facility] [address] [place] [address] Dr. Belkys Fajardo MCHC (RBC) [Mass/Vol] 33.1 g/dL Normal 29.9-35.2 [facility] Comment on above: Performed By: #### A FPTET #### [facility] [address] [place] [address] Dr. Belkys Fajardo MCV (RBC) [Entitic vol] 86.1 fL Normal 81.0-99.0 [facility] Comment on above: Performed By: #### A FPTET #### [facility] [address] [place] [address] Dr. Belkys Fajardo MONO # 0.8 103/ul Normal 0.3-0.8 [facility] Comment on above: Performed By: #### A FPTET #### [facility] [address] [place] [address] Dr. Belkys Fajardo Monocytes/100 WBC (Bld) 5.4 % Normal 1.7-12.0 [facility] Comment on above: Performed By: #### A FPTET #### [facility] [address] [place] [address] Dr. Belkys Fajardo NEUT # 11.6 103/ul Critically high 1.4-6.5 [facility] Comment on above: Performed By: #### A FPTET #### [facility] [address] [place] [address] Dr. Belkys Fajardo Neutrophils/100 WBC (Bld) 76.4 % Critically high 43.0-75.0 [facility] Comment on above: Performed By: #### A FPTET #### [facility] [address] [place] [address] Dr. Belkys Fajardo Platelet mean volume (Bld) [Entitic vol] 10.2 fL Normal 9.5-13.5 [facility] Comment on above: Performed By: #### A FPTET #### [facility] [address] [place] [address] Dr. Belkys Fajardo PLT 235 103/ul Normal 150-450 [facility] Comment on above: Performed By: #### A FPTET #### [facility] [address] [place] [address] Dr. Belkys Fajardo RBC 2.88 106/ul Critically low 4.20-5.40 [facility] Comment on above: Performed By: #### A FPTET #### [facility] [address] [place] [address] Dr. Belkys Fajardo WBC 15.2 103/ul Critically high 4.0-11.0 [facility] Comment on above: Performed By: #### A FPTET #### [facility] [address] [place] [address] Dr. Belkys Fajardo CBC AUTO DIFFon 01-23-2022 BASO # 0.1 103/ul Normal 0.0-0.1 [facility] Comment on above: Performed By: #### A FPTET #### [facility] [address] [place] [address] Dr. Belkys Fajardo Basophils/100 WBC (Bld) 0.4 % Normal 0.2-2.0 [facility] Comment on above: Performed By: #### A FPTET #### [facility] [address] [place] [address] Dr. Belkys Fajardo EO # 0.1 103/ul Normal 0.0-0.7 [facility] Comment on above: Performed By: #### A FPTET #### [facility] [address] [place] [address] Dr. Belkys Fajardo Eosinophils/100 WBC (Bld) 0.5 % Critically low 0.9-7.0 [facility] Comment on above: Performed By: #### A FPTET #### [facility] [address] [place] [address] Dr. Belkys Fajardo Erythrocyte distribution width (RBC) [Ratio] 13.8 % Normal 11.0-15.0 [facility] Comment on above: Performed By: #### A FPTET #### [facility] [address] [place] [address] Dr. Belkys Fajardo Hematocrit (Bld) [Volume fraction] 32.5 % Critically low 36.0-48.0 [facility] Comment on above: Performed By: #### A FPTET #### [facility] [address] [place] [address] Dr. Belkys Fajardo Hemoglobin (Bld) [Mass/Vol] 11.0 g/dL Critically low 12.0-16.0 [facility] Comment on above: Performed By: #### A FPTET #### [facility] [address] [place] [address] Dr. Belkys Fajardo IG # 0.31 10e3/ul Critically high 0.00-0.03 [facility] Comment on above: Performed By: #### A FPTET #### [facility] [address] [place] [address] Dr. Belkys Fajardo IG % 1.6 % Critically high 0.0-0.5 [facility] Comment on above: Performed By: #### A FPTET #### [facility] [address] [place] [address] Dr. Belkys Fajardo LYMPH # 2.0 103/ul Normal 1.2-3.8 [facility] Comment on above: Performed By: #### A FPTET #### [facility] [address] [place] [address] Dr. Belkys Fajardo Lymphocytes/100 WBC (Bld) 10.2 % Critically low 20.5-60.0 [facility] Comment on above: Performed By: #### A FPTET #### [facility] [address] [place] [address] Dr. Belkys Fajardo MANUAL DIFF REQ NO Normal [facility] Comment on above: Performed By: #### A FPTET #### [facility] [address] [address] [address] Belkys Fajardo MCH (RBC) [Entitic mass] 28.4 pg Normal 26.7-34.0 [facility] Comment on above: Performed By: #### A FPTET #### [facility] [address] [place] [address] Dr. Belkys Fajardo MCHC (RBC) [Mass/Vol] 33.8 g/dL Normal 29.9-35.2 [facility] Comment on above: Performed By: #### A FPTET #### [facility] [address] [place] [address] Dr. Belkys Fajardo MCV (RBC) [Entitic vol] 83.8 fL Normal 81.0-99.0 [facility] Comment on above: Performed By: #### A FPTET #### [facility] [address] [place] [address] Dr. Belkys Fajardo MONO # 0.9 103/ul Critically high 0.3-0.8 [facility] Comment on above: Performed By: #### A FPTET #### [facility] [address] [place] [address] Dr. Belkys Fajardo Monocytes/100 WBC (Bld) 4.8 % Normal 1.7-12.0 [facility] Comment on above: Performed By: #### A FPTET #### [facility] [address] [place] [address] Dr. Belkys Fajardo NEUT # 16.0 103/ul Critically high 1.4-6.5 [facility] Comment on above: Performed By: #### A FPTET #### [facility] [address] [place] [address] Dr. Belkys Fajardo Neutrophils/100 WBC (Bld) 82.5 % Critically high 43.0-75.0 [facility] Comment on above: Performed By: #### A FPTET #### [facility] [address] [place] [address] Dr. Belkys Fajardo Platelet mean volume (Bld) [Entitic vol] 10.1 fL Normal 9.5-13.5 [facility] Comment on above: Performed By: #### A FPTET #### [facility] [address] [address] [address] Belkys Fajardo PLT 301 103/ul Normal 150-450 [facility] Comment on above: Performed By: #### A FPTET #### [facility] [address] [address] [address] Belkys Fajardo RBC 3.88 106/ul Critically low 4.20-5.40 [facility] Comment on above: Performed By: #### A FPTET #### [facility] [address] [address] [address] Belkys Fajardo WBC 19.3 103/ul Critically high 4.0-11.0 [facility] Comment on above: Performed By: #### A FPTET #### [facility] [address] [place] [address] Dr. Belkys Fajardo CULTURE URINEon 01-23-2022 CULTURE URINE Culture Observations : LIGHT GROWTH OF MIXED GENITAL HEYDI. NO POTENTIAL PATHOGENS SEEN. Normal [facility] Comment on above: Performed By: #### U ACSIND, UMICRO #### [facility] [address] [address] [address] Belkys Fajardo [facility]27 SARS-CoV-2 (COVID-19) RNA DEVIN+probe Ql (Unsp spec) Not detected Normal NOT DETECTED [facility] Comment on above: Result Comment: When [...] for this test is supported by the Sample Clerk of Health and Human Service's declaration that [...] Performed By: #### C VDTBH #### [facility] [address] [place] [address] Dr. Belkys Fajardo DRUG SCREEN RAPID (URINE)on 01-23-2022 AMP Negative Normal NEGATIVE [facility] Comment on above: Performed By: #### A FPTET #### [facility] [address] [place] [address] Dr. Belkys Fajardo BAR Negative Normal NEGATIVE [facility] Comment on above: Performed By: #### A FPTET #### [facility] [address] [place] [address] Dr. Belkys Fajardo BUP Negative Normal NEGATIVE [facility] Comment on above: Performed By: #### A FPTET #### [facility] [address] [place] [address] Dr. Belkys Fajardo BZO Negative Normal NEGATIVE [facility] Comment on above: Performed By: #### A FPTET #### [facility] [address] [place] [address] Dr. Belkys Fajardo VALENCIA Negative Normal NEGATIVE [facility] Comment on above: Performed By: #### A FPTET #### [facility] [address] [place] [address] Dr. Belkys Fajardo CUT-OFFS SEE BELOW Normal [facility] Comment on above: Result Comment: AMP [...] Performed By: #### A FPTET #### [facility] [address] [place] [address] Dr. Belkys Fajardo DRUG CUT HEADER DRUG CLASS TEST SYSTEM CUT-OFF CONCENTRATIONS ARE FOLLOWS: Normal [facility] Comment on above: Performed By: #### A FPTET #### [facility] [address] [place] [address] Dr. Belkys Fajardo mAMP Negative Normal NEGATIVE [facility] Comment on above: Performed By: #### A FPTET #### [facility] [address] [place] [address] Dr. Belkys Fajardo MTD Negative Normal NEGATIVE [facility] Comment on above: Performed By: #### A FPTET #### [facility] [address] [place] [address] Dr. Belkys Fajardo OPI Negative Normal NEGATIVE [facility] Comment on above: Performed By: #### A FPTET #### [facility] [address] [place] [address] Dr. Belkys Fajardo OXY Negative Normal NEGATIVE [facility] Comment on above: Performed By: #### A FPTET #### [facility] [address] [place] [address] Dr. Belkys Fajardo PCP Negative Normal NEGATIVE [facility] Comment on above: Performed By: #### A FPTET #### [facility] [address] [place] [address] Dr. Belkys Fajardo PPX Negative Normal NEGATIVE [facility] Comment on above: Performed By: #### A FPTET #### [facility] [address] [place] [address] Dr. Belkys Fajardo TCA Negative Normal NEGATIVE [facility] Comment on above: Performed By: #### A FPTET #### [facility] [address] [place] [address] Dr. Belkys Fajardo THC Negative Normal NEGATIVE [facility] Comment on above: Performed By: #### A FPTET #### [facility] [address] [place] [address] Dr. Belkys Fajardo TYPE AND SCREENon 01-23-2022 TYPE AND SCREEN Negative Normal [facility] Comment on above: Performed By: #### U ACSIND, UMICRO #### [facility] [address] [place] [address] Dr. Belkys Fajardo UA (CLEAN/CATCH) HAND COREMAKER/MICRO I F IND.on 01-23-2022 Bilirubin Ql (U) Negative Normal NEGATIVE [facility] Comment on above: Performed By: #### U ACSIND, UMICRO #### [facility] [address] [address] [address] Belkys Fajardo Clarity (U) CLEAR Normal CLEAR [facility] Comment on above: Performed By: #### U ACSIND, UMICRO #### [facility] [address] [place] [address] Dr. Belkys Fajardo Color (U) LT. YELLOW Normal YELLOW [facility] Comment on above: Performed By: #### U ACSIND, UMICRO #### [facility] [address] [address] [address] Belkys Fajardo Glucose Ql (U) Negative Normal NEGATIVE [facility] Comment on above: Performed By: #### U ACSIND, UMICRO #### [facility] [address] [place] [address] Dr. Belkys Fajardo Hemoglobin Ql (U) TRACE-INTACT Abnormal NEGATIVE [facility] Comment on above: Performed By: #### U ACSIND, UMICRO #### [facility] [address] [address] [address] Belkys Fajardo Ketones Ql (U) Negative Normal NEGATIVE [facility] Comment on above: Performed By: #### U ACSIND, UMICRO #### [facility] [address] [address] [address] Belkys Fajardo LEUKOCYTES MODERATE Abnormal NEGATIVE [facility] Comment on above: Performed By: #### U ACSIND, UMICRO #### [facility] [address] [place] [address] Dr. Belkys Fajardo Nitrite Ql (U) Negative Normal NEGATIVE [facility] Comment on above: Performed By: #### U ACSIND, UMICRO #### [facility] [address] [address] [address] Belkys Fajardo pH (U) 6.5 [pH] Normal 5-9 [facility] Comment on above: Performed By: #### U ACSIND, UMICRO #### [facility] [address] [address] [address] Belkys Fajardo SPEC GRAVITY 1.015 Normal 1.005-<=1.025 [facility] Comment on above: Performed By: #### U ACSIND, UMICRO #### [facility] [address] [place] [address] Dr. Belkys Fajardo UA PROTEIN Negative Normal NEGATIVE/ TRACE [facility] Comment on above: Performed By: #### U ACSTAMELA, UMICRO #### [facility] [address] [place] [address] Dr. Belkys Faajrdo UR MICRO IND INDICATED Normal [facility] Comment on above: Performed By: #### U ACSTAMELA, ICRO #### [facility] [address] [place] [address] Dr. Belkys Fajardo Urobilinogen Qn (U) 0.2 {Jakob'U}/dL Normal 0.2 - 1. 0 [facility] Comment on above: Performed By: #### U ACSTAMELA, UMICRO #### [facility] [address] [place] [address] Dr. Belkys Fajardo URINE MICROSCOPIC ONLYon BACTERIA SMALL Abnormal NONE SEEN [facility] Comment on above: Performed By: #### U ACSIND, UMICRO #### [facility] [address] [place] [address] Dr. Belkys Fajardo Bacteria identified Cx Nom (U) INDICATED Normal [facility] Comment on above: Performed By: #### U ACSTAMELA, UMICRO #### [facility] [address] [place] [address] Dr. Belkys Fajardo CAST NONE SEEN Normal NONE SEEN [facility] Comment on above: Performed By: #### U ACSIND, UMICRO #### [facility] [address] [address] [address] Belkys Fajardo Crystals LM Nom (Urine sed) NONE SEEN Normal NONE SEEN [facility] Comment on above: Performed By: #### U ACSIND, UMICRO #### [facility] [address] [place] [address] Dr. Belkys Fajardo Epithelial cells LM Ql (Urine sed) FEW Abnormal NONE SEEN /RARE [facility] Comment on above: Performed By: #### U ACSIND, UMICRO #### [facility] [address] [place] [address] Dr. Belkys Fajardo MUCOUS NONE SEEN Normal NONE SEEN [facility] Comment on above: Performed By: #### U ACSIND, UMICRO #### [facility] [address] [place] [address] Dr. Belkys Fajardo RBC NONE SEEN Abnormal 0-2 [facility] Comment on above: Performed By: #### U ACSTAMELA, UMICRO #### [facility] [address] [place] [address] Dr. Belkys Fajardo WBC 5-10 Abnormal NONE SEEN [facility] Comment on above: Performed By: #### U ACSTAMELA, UMICRO #### [facility] [address] [place] [address] Dr. Belkys Fajardo US PREG GROWTHon 01-12-2022 [...] BLACK Date: 2022-01-12 21:15 Normal [facility] GROUP B STREP CULTUREon 12-26 S. agalactiae Ag Ql (Unsp spec) Culture Observations: NEGATIVE FOR GROUP B STREPTOCOCCUS. Normal [facility] Comment on above: Performed By: #### G BSCX #### [facility] [address] [place] [address] Dr. Belkys Fajardo GTT 3 HR PREGon 12-11-2021 Glucose [Mass/Vol] 91 mg/dL Normal 74-106 [facility] Comment on above: Performed By: #### G TT3P #### [facility] [address] [place] [address] Dr. Belkys Fajardo Glucose [Mass/Vol] 172 mg/dL Normal [facility] Comment on above: Performed By: #### G TT3P #### [facility] [address] [place] [address] Dr. Belkys Fajardo Glucose [Mass/Vol] 148 mg/dL Normal [facility] Comment on above: Performed By: #### G TT3P #### [facility] [address] [place] [address] Dr. Belkys Fajardo Glucose [Mass/Vol] 58 mg/dL Normal [facility] Comment on above: Performed By: #### G TT3P #### [facility] [address] [place] [address] Dr. Belkys Fajardo US PREG GROWTHon 12-08-2021 [...] YOGI WAYNE Date: 2021-12-08 16:52 Normal [facility] GLUCOSE - 1HRon 11-12-2021 Glucose [Mass/Vol] 143 mg/dL Critically high 74-106 [facility] Comment on above: Performed By: #### U ACSIND, UMICRO #### [facility] [address] [place] [address] Dr. Belkys Fajardo HEMOGRAM AND PLATELon 2021 Hematocrit (Bld) [Volume fraction] 31.7 % Critically low 36.0-48.0 [facility] Comment on above: Performed By: #### A FPTET #### [facility] [address] [address] [address] Belkys Fajardo Hemoglobin (Bld) [Mass/Vol] 10.4 g/dL Critically low 12.0-16.0 [facility] Comment on above: Performed By: #### A FPTET #### [facility] [address] [place] [address] Dr. Belkys Fajardo MCH (RBC) [Entitic mass] 28.8 pg Normal 26.7-34.0 [facility] Comment on above: Performed By: #### A FPTET #### [facility] [address] [place] [address] Dr. Belkys Fajardo MCHC (RBC) [Mass/Vol] 32.8 g/dL Normal 29.9-35.2 [facility] Comment on above: Performed By: #### A FPTET #### [facility] [address] [place] [address] Dr. Belkys Fajardo MCV (RBC) [Entitic vol] 87.8 fL Normal 81.0-99.0 [facility] Comment on above: Performed By: #### A FPTET #### [facility] [address] [place], [place] [address] Dr. Belkys Fajardo PLT 261 103/ul Normal 150-450 [facility] Comment on above: Performed By: #### A FPTET #### [facility] [address] [place], [place] [address] Dr. Belkys Fajardo RBC 3.61 106/ul Critically low 4.20-5.40 [facility] Comment on above: Performed By: #### A FPTET #### [facility] [address] [place], [place] [address] Dr. Belkys Fajardo WBC 11.5 103/ul Critically high 4.0-11.0 [facility] Comment on above: Performed By: #### A FPTET #### [facility] [address] [address] [address] Belkys Fajardo US PREG PLACENTAon 2 [...] by: YOGI BLACK Date: 2021-11-10 21:07 Normal [facility] US PREG PLACENTAon 2 US PREG PLACENTA EXAMINATION: US PREG PLACENTA HISTORY: Low lying placenta COMPARISON: Ultrasound anatomy 09/16/2021 FINDINGS: PLACENTA: Posterior with lower margin 2.5 cm from os. CERVIX LENGTH: 4.4 cm, closed. HEART RATE: 157 bpm OTHER: None. IMPRESSION: 1. Low-lying posterior placenta; no appreciable change compared to prior study. Electronically authenticated by: YOGI BLACK Date: 2021-10-14 19:56 Normal [facility] US PREG ANATOMY SINGLEon US [...] BLACK Date: 2021-09-16 16:54 Normal [facility] AFP TETRA PROFILE (MATERNAL) on 09-06-2021 PDF . Normal [facility] Comment on above: Performed By: #### A FPTET #### [facility] [address] [address] [address] Belkys Fajardo AFP MoM 0.86 Normal [facility] Comment on above: Performed By: #### A FPTET #### [facility] [address] [address] [address] Belkys Fajardo AFP Value 39.7 ng/mL Normal [facility] Comment on above: Performed By: #### A FPTET #### [facility] [address] [address] [address] Belkys Fajrado Comment Comment Normal [facility] Comment on above: Result Comment: Geremias Greer, Ph.D., [facility] Director . References: Available Upon Request. . Multiples Of Median Cutoffs Abbreviation Definitions For AFP Elevations IDD- Insulin Dep Diabetes Granados 2.5 Black 2.8 OSBR- Open Spina Bifida IDD 2.0 Twins 4.5 Risk DSR Cutoff 1:270 DSR- Down Syndrome Risk T18 Cutoff 1:100 T18- Trisomy 18 . Down Syndrome and Trisomy 18 screening are considered Investigational . For further inquiries contact [facility] at [phone]. Performed By: #### A FPTET #### [facility] [address] [place] [address] Dr. Belkys Fajardo MONIE MoM 0.77 [facility] Comment on above: Performed By: #### A FPTET #### [facility] [address] [place] [address] Dr. Belkys Fajardo MONIE Value 113.50 pg/mL [facility] Comment on above: Performed By: #### A FPTET #### [facility] [address] [place] [address] Dr. Belkys Fajardo DSR (By Age) 1 IN 765 Normal [facility] Comment on above: Performed By: #### A FPTET #### [facility] [facility] [address] [place] [address] Dr. Belkys Fajardo DSR (Second Trimester) 1 [place] [address] [facility] Comment on above: Performed By: #### A FPTET #### [facility] [address] [place] [address] Dr. Belkys Gilliland Age on Collection Date 18.7 WEEKS Normal [facility] Comment on above: Performed By: #### A FPTET #### [facility] [address] [place] [address] Dr. Belkys Pablo. Age Based On LMP [facility] Comment on above: Result Comment: 03/30 Performed By: #### A FPTET #### [facility] [address] [place] [address] Dr. Belkys Fajardo hCG MoM 0.78 Normal [facility] Comment on above: Performed By: #### A FPTET #### [facility] [address] [address] [place] [address] m[IU]/mL Normal [facility] Comment on above: Performed By: #### A FPTET #### [facility] [address] [place] [address] Dr. Belkys Fajardo Insulin Dep Diabetes No Normal [facility] Comment on above: Performed By: #### A FPTET #### [facility] [address] [place] [address] Dr. Belkys Fajardo Interpretation Comment Normal [facility] Comment on above: Result Comment: Inte [...] identifies 60% of Trisomy 18 pregnancies. The [employer] recommends amniocentesis be offered to women age 35 and older. Recalculations are not recommended when gestational dating by LMP and ultrasound are within 10 days. Performed By: #### A FPTET #### [facility] [address] [place] [address] Dr. Belkys Fajardo [age] Normal [facility] Comment on above: Performed By: #### A FPTET #### [facility] [address] [place] [address] Dr. Belkys Fajardo Multiple Gestation No Normal [facility] Comment on above: Performed By: #### A FPTET #### [facility] [address] [place] [address] Dr. Belkys Fajardo [place] 1 [place] [address] Normal [facility] Comment on above: Performed By: #### A FPTET #### [facility] [address] [place] [address] Dr. Belkys Fajardo Race Normal [facility] Comment on above: Performed By: #### A FPTET #### [facility] [address] [address] [address] Belkys Fajardo Results Report Normal [facility] Comment on above: Performed By: #### A FPTET #### [facility] [address] [place] [address] Dr. Belkys Fajardo T18 (By Age) 1:2981 Normal [facility] Comment on above: Performed By: #### A FPTET #### [facility] [address] [place] [address] Dr. Belkys Fajardo T18 Risk Not increased [facility] Comment on above: Performed By: #### A FPTET #### [facility] [address] [place] [address] Dr. Belkys Fajardo Test Results: Negative Normal [facility] Comment on above: Performed By: #### A FPTET #### [facility] [address] [place] [address] Dr. Belkys Fajardo uE3 MoM 1.43 [facility] Comment on above: Performed By: #### A FPTET #### [facility] [address] [place] [address] Dr. Belkys Fajardo uE3 Value 2.26 ng/mL [facility] Comment on above: Performed By: #### A FPTET #### [facility] [address] [place] [address] Dr. Belkys Fajardo PAP ACOG PANEL 2: 21 to 29on 08-24-2021 . . Normal [facility] Comment on above: Result Comment: Perf ormed at: BA Performed By: #### [id number] #### [facility] [address] [place] [address] Dr. Belkys Fajardo Age Gdln ACOG Testing - [facility] Comment on above: Performed By: #### [id number] #### [facility] [address] [place] [address] Dr. Belkys Fajardo DIAGNOSIS: Comment Normal [facility] Comment on above: Result Comment: NEGA TIVE FOR INTRAEPITHELIAL LESION OR MALIGNANCY. Performed at: BA Performed By: #### [id number] #### [facility] [address] [place] [address] Dr. Belkys Fajardo Methodology: Comment Normal [facility] Comment on above: Result Comment: This liquid based ThinPrep(R) pap test was screened with the use of an image guided system. Performed at: WB Performed By: #### [id number] #### [facility] [address] [place] [address] Dr. Belkys Fajardo Note: Comment Normal [facility] Comment on [...] Performed at: WB Performed By: #### [id number] #### [facility] [address] [place] [address] Dr. Belkys Fajardo Performed by: Comment Normal [facility] Comment on above: Result Comment: Vicky Avila, Roll Press Operator (ASCP) Performed at: BA Performed By: #### [id number] #### [facility] [address] [place] [address] Dr. Belkys Fajardo Reflex Criteria: Comment Normal [facility] Comment on above: Result Comment: The HPV DNA reflex criteria were not met with this specimen result therefore, no HPV testing was performed. . Performed at: BA Performed By: #### [id number] #### [facility] [address] [place] [address] Dr. Belkys Fajardo Specimen adequacy: Comment Normal [facility] Comment on above: Result Comment: Sati sfactory for evaluation. No endocervical component is identified. Performed at: BA Performed By: #### [id number] #### [facility] [address] [place] [address] Dr. Belkys Fajardo CBC AUTO DIFFon 08-22-2021 BASO # 0.0 103/ul Normal 0.0-0.1 [facility] Comment on above: Performed By: #### C BC #### [facility] [address] [address] [address] Belkys Fajardo Basophils/100 WBC (Bld) 0.2 % Normal 0.2-2.0 [facility] Comment on above: Performed By: #### C BC #### [facility] [address] [address] [address] Belkys Fajardo EO # 0.2 103/ul Normal 0.0-0.7 [facility] Comment on above: Performed By: #### C BC #### [facility] [address] [address] [address] Belkys Fajardo Eosinophils/100 WBC (Bld) 1.9 % Normal 0.9-7.0 [facility] Comment on above: Performed By: #### C BC #### [facility] [address] [place] [address] Dr. Belkys Fajardo Erythrocyte distribution width (RBC) [Ratio] 13.4 % Normal 11.0-15.0 [facility] Comment on above: Performed By: #### C BC #### [facility] [address] [place] [address] Dr. Belkys Fajardo Hematocrit (Bld) [Volume fraction] 32.7 % Critically low 36.0-48.0 [facility] Comment on above: Performed By: #### C BC #### [facility] [address] [place] [address] Dr. Belkys Faajrdo Hemoglobin (Bld) [Mass/Vol] 11.0 g/dL Critically low 12.0-16.0 [facility] Comment on above: Performed By: #### C BC #### [facility] [address] [place] [address] Dr. Belkys Fajardo IG # 0.05 10e3/ul Critically high 0.00-0.03 [facility] Comment on above: Performed By: #### C BC #### [facility] [address] [address] [address] Belkys Fajardo IG % 0.5 % Normal 0.0-0.5 [facility] Comment on above: Performed By: #### C BC #### [facility] [address] [place] [address] Dr. Belkys Fajardo LYMPH # 2.3 103/ul Normal 1.2-3.8 [facility] Comment on above: Performed By: #### C BC #### [facility] [address] [place] [address] Dr. Belkys Fajardo Lymphocytes/100 WBC (Bld) 22.4 % Normal 20.5-60.0 [facility] Comment on above: Performed By: #### C BC #### [facility] [address] [place] [address] Dr. Belkys Fajardo MANUAL DIFF REQ NO Normal [facility] Comment on above: Performed By: #### C BC #### [facility] [address] [place] [address] Dr. Belkys Fajardo MCH (RBC) [Entitic mass] 29.3 pg Normal 26.7-34.0 [facility] Comment on above: Performed By: #### C BC #### [facility] [address] [place] [address] Dr. Belkys Fajardo MCHC (RBC) [Mass/Vol] 33.6 g/dL Normal 29.9-35.2 [facility] Comment on above: Performed By: #### C BC #### [facility] [address] [place] [address] Dr. Belkys Fajardo MCV (RBC) [Entitic vol] 87.2 fL Normal 81.0-99.0 [facility] Comment on above: Performed By: #### C BC #### [facility] [address] [place] [address] Dr. Belkys Fajardo MONO # 0.6 103/ul Normal 0.3-0.8 [facility] Comment on above: Performed By: #### C BC #### [facility] [address] [place] [address] Dr. Belkys Fajardo Monocytes/100 WBC (Bld) 5.5 % Normal 1.7-12.0 [facility] Comment on above: Performed By: #### C BC #### [facility] [address] [address] [address] Belkys Fajardo NEUT # 7.1 103/ul Critically high 1.4-6.5 [facility] Comment on above: Performed By: #### C BC #### [facility] [address] [address] [address] Belkys Fajardo Neutrophils/100 WBC (Bld) 69.5 % Normal 43.0-75.0 [facility] Comment on above: Performed By: #### C BC #### [facility] [address] [place] [address] Dr. Belkys Fajardo Platelet mean volume (Bld) [Entitic vol] 10.3 fL Normal 9.5-13.5 [facility] Comment on above: Performed By: #### C BC #### [facility] [address] [place] [address] Dr. Belkys Fajardo PLT 258 103/ul Normal 150-450 [facility] Comment on above: Performed By: #### C BC #### [facility] [address] [place] [address] Dr. Belkys Fajardo RBC 3.75 106/ul Critically low 4.20-5.40 [facility] Comment on above: Performed By: #### C BC #### [facility] [address] [place] [address] Dr. Belkys Fajardo WBC 10.2 103/ul Normal 4.0-11.0 [facility] Comment on above: Performed By: #### C BC #### [facility] [address] [place] [address] Dr. Belkys Fajardo CTA CHEST WO W [...] HERNANDEZ Date: 2021-08-22 08:31 Normal [facility] Covid-19 PCR (CVDTB)on 07-27 SARS-CoV-2 (COVID-19) RNA DEVIN+probe Ql (Unsp spec) Not detected Normal NOT DETECTED [facility] Comment on above: Result Comment: When [...] for this test is supported by the Sample Clerk of Health and Human Service's declaration that [...] Performed By: #### C VDTBH #### [facility] [address] [place] [address] Dr. Belkys Fajardo PROF 14(COMP METB)on 022 Albumin [Mass/Vol] 3.0 g/dL Critically low 3.4-5.0 [facility] Comment on above: Performed By: #### A FPTET #### [facility] [address] [address] [address] Belkys Fajardo Albumin/Globulin [Mass ratio] 0.8 {ratio} Normal [facility] Comment on above: Performed By: #### A FPTET #### [facility] [address] [address] [address] Belkys Fajardo ALP [Catalytic activity/Vol] 52 U/L Normal 46-116 [facility] Comment on above: Performed By: #### A FPTET #### [facility] [address] [place] [address] Dr. Belkys Fajardo ALT [Catalytic activity/Vol] 32 U/L Normal 14-59 [facility] Comment on above: Performed By: #### A FPTET #### [facility] [address] [place] [address] Dr. Belkys Fajardo Anion gap [Moles/Vol] 12.8 mmol/L Normal [facility] Comment on above: Performed By: #### A FPTET #### [facility] [address] [place] [address] Dr. Belkys Fajardo AST [Catalytic activity/Vol] 17 U/L Normal 15-37 [facility] Comment on above: Performed By: #### A FPTET #### [facility] [address] [place] [address] Dr. Belkys Fajardo Bilirubin [Mass/Vol] 0.3 mg/dL Normal 0.2-1.0 [facility] Comment on above: Performed By: #### A FPTET #### [facility] [address] [place] [address] Dr. Belkys Fajardo Calcium [Mass/Vol] 8.5 mg/dL Normal 8.5-10.1 [facility] Comment on above: Performed By: #### A FPTET #### [facility] [address] [place] [address] Dr. Belkys Fajardo Chloride [Moles/Vol] 103 mmol/L Normal 98-107 [facility] Comment on above: Performed By: #### A FPTET #### [facility] [address] [address] [address] Belkys Fajardo CO2 [Moles/Vol] 24.7 mmol/L Normal 21.0-32.0 [facility] Comment on above: Performed By: #### A FPTET #### [facility] [address] [place] [address] Dr. Belkys Fajardo Creatinine [Mass/Vol] 0.46 mg/dL Critically low 0.55-1.02 [facility] Comment on above: Performed By: #### A FPTET #### [facility] [address] [place] [address] Dr. Belkys Fajardo EGFR-AF CITIZEN [place] >60 Normal >=60 [facility] Comment on above: Performed By: #### A FPTET #### [facility] [address] [place] [address] Dr. Belkys aFjardo EGFR-NON AF CITIZEN OF [place] >60 Normal >=60 [facility] Comment on above: Performed By: #### A FPTET #### [facility] [address] [place] [address] Dr. Belkys Fajardo Globulin (S) [Mass/Vol] 3.7 g/dL Normal [facility] Comment on above: Performed By: #### A FPTET #### [facility] [address] [place] [address] Dr. Belkys Fajardo Glucose [Mass/Vol] 84 mg/dL Normal 74-106 [facility] Comment on above: Performed By: #### A FPTET #### [facility] [address] [place] [address] Dr. Belkys Fajardo Potassium [Moles/Vol] 3.5 mmol/L Normal 3.5-5.1 [facility] Comment on above: Performed By: #### A FPTET #### [facility] [address] [place] [address] Dr. Belkys Fajardo Protein [Mass/Vol] 6.7 g/dL Normal 6.4-8.2 [facility] Comment on above: Performed By: #### A FPTET #### [facility] [address] [place] [address] Dr. Belkys Fajardo Sodium [Moles/Vol] 137 mmol/L Normal 136-145 [facility] Comment on above: Performed By: #### A FPTET #### [facility] [address] [place] [address] Dr. Belkys Fajardo Urea nitrogen [Mass/Vol] 7.0 mg/dL Normal 7.0-18.0 [facility] Comment on above: Performed By: #### A FPTET #### [facility] [address] [place] [address] Dr. Belkys Fajardo Urea nitrogen/Creatinine [Mass ratio] 15.2 mg/mg Normal [facility] Comment on above: Performed By: #### A FPTET #### [facility] [address] [place] [address] Dr. Belkys Fajardo TROPONIN, HIGH SENSITIVITYon 08-22-2021 HSTROP <4.0 Normal 4.0-51.3 [facility] Comment on above: Result Comment: CUT- OFF POINTS HAVE BEEN ESTABLISHED BASED ON THE FOURTH UNIVERSAL DEFINITIONS OF MYOCARDIAL INFARCTION. THE UPPER REFERENCE LIMIT (URL) OF TROPONIN, DEFINED THE 99TH PERCENTILE OF cTnI DISTRIBUTION IN A REFERENCE POPULATION, HAS BEEN CONFIRMED THE DECISION THRESHOLD FOR [place] DIAGNOSIS. Performed By: #### A FPTET #### [facility] [address] [place] [address] Dr. Belkys Fajardo CHLAMYDIA/GONOCOCCUS DEVIN (SW AB/URINE/PAPon 08-21-2021 Chlamydia trachomatis, DEVIN Negative Normal Negative [facility] Comment on above: Performed By: #### C T/NGNA #### [facility] [address] [place] [address] Dr. Belkys Fajardo Neisseria gonorrhoeae, DEVIN Negative Normal Negative [facility] Comment on above: Performed By: #### C T/NGNA #### [facility] [address] [place] [address] Dr. Belkys Fajardo VAGINITIS/VAGINOSIS DNA PROB Gab 08-20-2021 Lani species Negative Normal Negative [facility] Comment on above: Performed By: #### A FPTET #### [facility] [address] [address] [address] Belkys Fajardo Gardnerella vaginalis Negative Normal Negative [facility] Comment on above: Performed By: #### A FPTET #### [facility] [address] [address] [address] Belkys Fajardo Trichomonas vaginalis Negative Normal Negative [facility] Comment on above: Performed By: #### A FPTET #### [facility] [address] [address] [address] Belkys Fajardo Vital Signs Date Time Vital Sign Value Performing Clinician Facility 07-28-2022 10:15-0400 Body height 170.18 cm Nick Ball Other [facility] Other 07-28-2022 10:15-0400 Body mass index (BMI) [Ratio] 27.81 kg/m2 Nick Ball Other [facility] Other 07-28-2022 10:15-0400 Body weight 80.56 kg Nick Ball Other [facility] Other 07-28-2022 10:15-0400 Diastolic blood pressure 75 mm[Hg] Nick Ball Other [facility] Other 07-28-2022 10:15-0400 Systolic blood pressure 112 mm[Hg] Nick Ball Other [facility] Other 06-04-2022 17:00-0500 Body height 170.18 cm Cristal Guidry Other [facility] Other 06-04-2022 17:00-0500 Body mass index (BMI) [Ratio] 28.19 kg/m2 Cristal Guidry Other [facility] Other 06-04-2022 17:00-0500 Body temperature 97.4 [degF] Cristal Guidry Other [facility] Other 06-04-2022 17:00-0500 Body weight 81.65 kg Cristal Guidry Other [facility] Other 06-04-2022 17:00-0500 Respiratory rate 18 /min Cristal Guidry Other [facility] Other 06-04-2022 17:00-0500 SaO2% (BldA) [Mass fraction] 98 % Cristal Guidry Other [facility] Other 09-06-2021 02:05-0400 Body weight 77.[address] CHEYENNE MEADE . [facility] Comment on above: Performed By: #### AFPTET #### [facility] [address] [place] [address] Dr. Belkys Fajardo Encounters Encounter Date Encounter [...] [facility]: [facility]-07-[facility]23 End: 09-07-2023 ambulatory CHEYENNE WOLF Not Available Start: 08-24-2023 End: 08-24-2023 ambulatory CHEYENNE WOLF Not Available Start: 08-10-2023 End: 08-10-2023 ambulatory CHEYENNE WOLF Not Available Start: 07-28-2023 End: 07-30-2023 ambulatory YOGI MARQUEZ [facility] Start: 07-26-2023 End: 07-26-2023 Emergency department patient visit LIS DE LEON [facility] Start: 07-25-2023 End: 07-27-2023 ambulatory YOGI MARQUEZ [facility] Start: 07-13-2023 End: 07-13-2023 ambulatory CHEYENNE WOLF Not Available Start: 06-15-2023 End: 06-15-2023 ambulatory CHEYENNE WOLF Not Available Start: 05-16-2023 End: 05-16-2023 ambulatory CHEYENNE WOLF Not Available Start: 04-08-2023 End: 04-08-2023 ambulatory CHEYENNE WOLF Not Available Start: 07-28-2022 End: 07-28-2022 ambulatory Nick Leonardo Other [facility] Other Start: 07-28-2022 Office outpatient vi sit 15 minutes Nick Leonardo [facility] Start: 07-28-2022 Telephone encounter Nick Leonardo FP G [facility] Start: 06-04-2022 End: 06-04-2022 ambulatory Cristal Guidry Other [facility] Other Start: 06-04-2022 Office outpatient ne w 20 minutes Cristal Guidry [facility] Start: 02-01-2022 [...] End: 04-10-2021 Subsequent hospital visit by physician [facility] EKG Comment on above: Palpitations; Post-COVID chronic [...] 04/15/2021 Office Visit Cardiology Yogi Marquez MD [address] [place] [address] [facility] of [facility] Start: 11-26-2020 Influenza vaccination Flu vaccine (# 1) [facility] Start: 10-08-2020 DTaP/Tdap/Td vaccine (7 - Td or Tdap) DTaP/Tdap/Td vaccine (7 - Td or Tdap) [facility] Start: 2013 Screening for malign ant neoplasm of cervix Pap smear [facility] Start: 10-30-2007 HIV screening HIV screen [facility] Start: 2004 Depression Screen Depression Screen [facility] Start: 1997 COVID-19 Vaccine (1) COVID-19 Vaccin e (1) [facility] Start: 1993 Varicella vaccine (1 of 2 - 2-dose childhood series) Varicella vaccine (1 of 2 - 2-dose childhood series) [facility] Start: 1992 Hepatitis C screening Hepatitis C [facility] Payers Date Payer Category Payer Unknown [id number] [id number]. [id number] 1992 Unknown [id number] 2.16.84 0.1.159954.3.579.2.593 1992 Unknown [id number] 2.16.84 0.1.433198.3.579.2.593 1992 Unknown [id number] 2.16.84 0.1.049828.3.579.2.593 1992 Unknown [id number] 2.16.84 0.1.181265.3.579.2.593 1992 Unknown [id number] 2.16.84 0.1.795712.3.579.2.593 1992 Unknown [id number] 2.16.84 0.1.046956.3.579.2.593 1992 Unknown [id number] 2.16.84 0.1.848443.3.579.2.593 1992 Unknown [id number] 2.16.84 0.1.842121.3.579.2.593 1992 Unknown [id number] 2.16.84 0.1.057824.3.579.2.593 1992 Unknown [id number] 2.16.84 0.1.279323.3.579.2.593 1992 Unknown [id number] 2.16.84 0.1.479706.3.579.2.593 1992 Unknown [id number] 2.16.84 0.1.539721.3.579.2.593 1992 Unknown [id number] 2.16.84 0.1.523612.3.579.2.593 1992 Unknown [id number] 2.16.8 40.1.568584.3.579.2.173 1992 Unknown [id number] 2.16.8 40.1.138945.3.579.2.173 1992 Unknown [id number] 2.16.8 40.1.046309.3.579.2.173 1992 Unknown [id number] 2.16.8 40.1.135706.3.579.2.173 1992 Unknown [id number] 2.16.84 0.1.033033.3.579.2.9 1992 Unknown [id number] 2.16.84 0.1.087237.3.579.2.1258 1992 Unknown [id number] 2.16.84 0.1.682140.3.579.2.1258 1992 Unknown [id number] 2.16.84 0.1.445825.3.579.2.1258 1992 Unknown [id number] 2.16.84 0.1.632662.3.579.2.9 1992 Unknown [id number] 2.16.84 0.1.387533.3.579.2.1258 1992 Unknown [id number] 2.16.84 0.1.986247.3.579.2.1258 1992 Unknown [id number] 2.16.84 0.1.336406.3.579.2.1258 1992 Unknown [id number] 2.16.84 0.1.214175.3.579.2.1258 1992 Unknown [id number] 2.16.84 0.1.423254.3.579.2.9 1992 Unknown [id number] 2.16.84 0.1.525233.3.579.2.1259 1992 Unknown [id number] 2.16.84 0.1.992265.3.579.2.1259 1959 Unknown [id number] Social History Date Type Detail Facility Start: 08-29-2014 Tobacco smoking status NHIS Never smoked tobacco [facility] Phone: Start: 08-29-2014 Tobacco use and exposure Smokeless tobacco non-user [facility] Phone: Start: 03-09-2021 Alcohol intake Current drinke r of alcohol (finding) [facility] Phone: Start: 03-09-2021 Alcohol intake [facility] Phone: Start: 08-29-2014 History SDOH Alcohol Comment occ. [facility] Phone: Start: 1990 Sex Assigned At Not on file M [employer] Phone: Sex Assigned At Sex Assigned At Bir th [facility] Other Evaluation note 07-28-2022 Note Date & [...] Monitor for now may not need treatment [facility] Other Evaluation note 06-04-2022 Note Date & [...] other viral communicable diseases (ICD-10 - Z20.828) [facility] Other Clinical Note 01-23-2022 Note Date & Type Note Facility 01-23-2022 Note OPERATIVE NOTE OPERATION DATE: 02/18/2022 PROCEDURE: Repair of fourth degree perineal laceration. PREOPERATIVE DIAGNOSIS: Fourth degree perineal laceration. POSTOPERATIVE DIAGNOSIS: Fourth degree perineal laceration. ANESTHESIA: Epidural SURGEON: Cheyenne Meade D.O. LEGAL RECEPTIONIST: BOBO Cole URINE OUTPUT: Yellow and clear. [...] to recovery in stable condition. [facility] Clinical Note 01-23-2022 Note Date & Type Note Facility 01-23-2022 Note OP Note OPERATION DATE: 01/23/2022 PROCEDURE: Repair of fourth degree perineal laceration. PREOPERATIVE DIAGNOSIS: Fourth degree perineal laceration. POSTOPERATIVE DIAGNOSIS: Fourth degree perineal laceration. ANESTHESIA: Epidural SURGEON: Cheyenne Meade D.O. LEGAL RECEPTIONIST: BOBO Cole URINE OUTPUT: Yellow and clear. [...] to recovery in stable condition. [facility] Clinical Note 01-23-2022 Note Date & Type Note Facility 01-23-2022 Note OPERATIVE NOTE OPERATION DATE: 02/10/2022 PROCEDURE: Repair of fourth degree laceration. PREOPERATIVE DIAGNOSIS: Fourth degree laceration. POSTOPERATIVE DIAGNOSIS: Fourth degree laceration. ANESTHESIA: General. SURGEON: Cheyenne Meade D.O. LEGAL RECEPTIONIST: BOBO URINE OUTPUT: Yellow and clear. BLOOD [...] sheath and this was done in a [id number] fashion. This was performed using 3-0 Vicryl. [...] patient tolerated this procedure well. [facility] Clinical Note 08-22-2021 Note Date & [...] DERIC VO Date: 2021-08-22 07:30 [facility] Evaluation note Note Date & Type Note Facility Evaluation note Diagnosis Palpitations Post-COVID chronic palpitations Shortness of breath Lightheaded Dizziness and giddiness Dizziness Dizziness and giddiness documented in this encounter [facility] Phone: Evaluation note Note Date & Type Note Facility Evaluation note No Information [email or web address] Other History general Narrative - Reported Note Date & Type Note Facility History general Narrative - Reported Type Medical History POTS Medical History sinus tachycardia Surgical History 4th degree vaginal tear after g iving 2021 [facility] Other History general Narrative - Reported Note Date & Type Note Facility History general Narrative - Reported Type Medical History POTS Medical History sinus tachycardia Medical History Anxiety, generalized Surgical History 4th degree vaginal t ear after giving 2021 Surgical History MASTOPEXY OF BOTH BR EASTS WITH INSERTION OF SALINE IMPLANTS Hospitalization History SEE SURGICAL HX [facility] Other Reason for Referral Specialty Diagnoses / Procedures Referred By Willy smith Referred To Contact Cardiology Diagnoses Palpitations Post-COVID chronic palpitations Shortness of breath Lightheaded Dizziness Procedures Holter Monitor 24 Hour Yogi Marquez MD [address] [place] [id number] Referral ID Status Reason Start Date Expiration Date Visits Re quested Visits Authorized [id number] Open 03/09/2021 03/09/2022 1 1 Advance Directives No Advanced Directives Records FoundDocuments on File Type Date Recorded Patient Inserting Operator Expl anation 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 Summary Purpose Family History No Family History Records FoundNo Family History Records FoundNo Family History Records Found Additional Source Comments Reason for Visit (unrecogniz ed section and content) Specialty Diagnoses / Procedures Referred By Willy smith Referred To Contact Cardiology Diagnoses Palpitations Post-COVID chronic palpitations Shortness of breath Lightheaded Dizziness Procedures Holter Monitor 24 Hour Yogi Marquez MD [address] [place] [address] Referral ID Status Reason Start Date Expiration Date Visits Re quested Visits Authorized [id number] Open 03/09/2021 03/09/2022 1 1 Care Teams (unrecognized sec tion and content) Crystal Inspector Relationship Specialty Start Date End Date Nick Leonardo, [address] [place] [address] PCP - General Internal Medicine 03/09/21 INFORMATION SOURCE (unrecogn ized section and content) DATE CREATED AUTHOR 07/01/2022 [facility] DATE CREATED AUTHOR AUTHOR'S ORGANIZ ATION 09/22/2023 [facility] DATE CREATED AUTHOR AUTHOR'S ORGANIZ ATION 11/05/2023 [facility] EPIC FOR RECORDS [...] BE BASED ON THE PRIMARY CLINICAL RECORDS. [employer] provides no warranty or guarantee of the accuracy or completeness of information in this document.
== END 2023-11-13 15:10 | disposition home or self-care (01) | DRG 788 ==
PROVIDERS: Admitting Provider Obstetrics & Gynecology; PCP Family Medicine; Visit Provider Obstetrics & Gynecology
PROC: 10D00Z1 Extraction of Products of Conception, Low, Open Approach (ICD-10-PCS; CPT 59514; principal; 2023-11-10 07:30)
DX: O82 Encounter for cesarean delivery without indication (principal); Z3A.39 39 weeks gestation of pregnancy; Z37.0 Single live birth; Z87.59 Personal history of other complications of pregnancy, childbirth and the puerperium; Z86.79 Personal history of other diseases of the circulatory system
CPT/HCPCS: 36415; 64488; 80307; 85025; 86850; 86900; 86901; 94667; 94668; 96372; 96374; 96375; J0131; J0665; J0690; J1100; J1650; J1885; J2274; J2405; J2590; J2765

== ENCOUNTER 2024-07-11 20:37 | Outpatient (REF) | payer OTHER, SELFPAY ==
--- OUTSIDE RECORDS SUMMARY | 2024-07-11 20:47 | XMS_ITS | CCD ---
Author Organization [facility] Care Team Providers Care Rn Gyn Name Role Phone Jorden LOPEZ Nick Primary Care Provider Cristal Guidry Unavailable DESHAUN ., DR QUINN Attending Unavailable DESHAUN ., DR QUINN Admitting Unavailable DESHAUN ., DR QUINN Consulting Unavailable BALL, DR TUCKER Primary Care Unavailable DESHAUN ., DR QUINN Consulting Unavailable DESHAUN ., DR QUINN Attending Unavailable BALL, DR TUCKER Primary Care Unavailable DESHAUN ., DR QUINN Admitting Unavailable DESHAUN ., DR QUINN Admitting Unavailable DESHAUN ., DR QUINN Attending Unavailable DESHAUN ., DR QUINN Consulting Unavailable BALL, DR TUCKER Primary Care Unavailable DESHAUN ., DR QUINN Consulting Unavailable DESHAUN ., DR QUINN Attending Unavailable DESHAUN ., DR QUINN Admitting Unavailable BALL, DR TUCKER Primary Care Unavailable ZIEBER, DR YOGI Witt Consulting Unavailable DESHAUN ., DR QUINN Consulting Unavailable DESHAUN ., DR QUINN Attending Unavailable DESHAUN ., DR QUINN Admitting Unavailable BALL, DR TUCKER Primary Care Unavailable DESHAUN ., DR QUINN Admitting Unavailable DESHAUN ., DR QUINN Attending Unavailable DESHAUN ., DR QUINN Consulting Unavailable JORDEN, DR TUCKER Primary Care Unavailable DESHAUN ., DR QUINN Admitting Unavailable DESHAUN ., DR QUINN Attending Unavailable JORDEN, DR TUCKER Primary Care Unavailable JC, DR CAMILO Witt Consulting Unavailable JC, DR CAMILO Witt Attending Unavailable JC, DR CAMILO Witt Admitting Unavailable JORDEN, DR TUCKER Primary Care Unavailable DERIC VO Consulting Unavailable GLENN ., BRENT Consulting Unavailable ROSARIO HERNANDEZ Consulting Unavailable JORDEN, DR TUCKER Primary Care Unavailable KARASIK ., DR DURHAM Admitting Unavailabl e KARASIAdolfo ., DR DURHAM Consulting Unavailabl e KARASIK ., DR DURHAM Attending Unavailabl e DESHAUN ., DR QUINN Consulting Unavailable HOSEA FRAZIER Consulting Unavailable DESHAUN ., DR QUINN Procedure Practitioner Unavail able DESHAUN ., DR QUINN Consulting Unavailable DESHAUN ., DR QUINN Attending Unavailable DESHAUN ., DR QUINN Admitting Unavailable REQUEST, DR NONE LISTED Primary Care Unavaila ble ZIEBER, DR YOGI Witt Consulting Unavailable DESHAUN ., DR QUINN Admitting Unavailable DESHAUN ., DR QUINN Consulting Unavailable DESHAUN ., DR QUINN Attending Unavailable BALL, DR TUCKER Primary Care Unavailable DESHAUN ., DR QUINN Attending Unavailable DESHAUN ., DR QUINN Admitting Unavailable DESHAUN ., DR QUINN Consulting Unavailable BALL, DR TUCKER Primary Care Unavailable ZIEBER, DR YOGI Witt Consulting Unavailable DESHAUN ., DR QUINN Attending Unavailable DESHAUN ., DR QUINN Admitting Unavailable DESHAUN ., DR QUINN Consulting Unavailable BALL, DR TUCKER Primary Care Unavailable ZIEBER, DR YOGI Witt Consulting Unavailable Jorden, Nick Unavailable YOGI MARQUEZ Attending Unavailable YOGI MARQUEZ Referring Unavailable LIS CRISTINA Primary Care Unavailable MOISES, LIS Singh Primary Care Unavailable SUSANNA WILLIAM Attending Unavailable MOISES, LIS A Primary Care Unavailable YOGI MARQUEZ Attending Unavailable YOGI MARQUEZ Referring Unavailable MOISES, LIS A Primary Care Unavailable DESHAUN, CHEYENNE Attending Unavailable DESHAUN, CHEYENNE Attending Unavailable DESHAUN, CHEYENNE Attending Unavailable DESHAUN, CHEYENNE Attending Unavailable DESHAUN, CHEYENNE Attending Unavailable DESHAUN, CHEYENNE Attending Unavailable DESHAUN, CHEYENNE Attending Unavailable DESHAUN, CHEYENNE Attending Unavailable VALERIE SADLER Attending Unavailable VALERIE SADLER Attending Unavailable DESHAUN, CHEYENNE Attending Unavailable DESHAUN, CHEYENNE Attending Unavailable DESHAUN, CHEYENNE Attending Unavailable Unavailable Primary Care Provider Unavailwyatt Cristina MD, Lis Singh Primary Care Provider Medications Current Medications Medication Drug Class(es) Dates Sig (Normalized) Sig (Original) drospirenone 4 mg oral tablet (5 sources) Progestin Start: 04-03-2024 End: 07-11-2025 take 1 tablet by mouth once daily Drospirenone (Slynd) 4 MG tablet Indications: Abnormal uterine bleeding (AUB) Take 4 mg by mouth Daily 28 tablet 11 07/11/2024 07/11/2025 Active ibuprofen 800 mg oral tablet (5 sources) Nonsteroidal Anti-inflammatory Drug Start: 01-11-2024 take 1 tablet by mouth once Ibuprofen (Ibu) 800 mg tablet Active 800 MG PO Once January 11, 2024 12:00am Start: 11-15-2023 End: 12-20-2023 take 1 tablet by mouth every eight hours ibuprofen 800 MG tablet Take 800 mg by mouth every 8 (eight) hours 11/15/2023 12/20/2023 Discontinued (Other) metoprolol tartrate 25 mg oral tablet (13 sources) beta-Adrenergic Ekta Start: 01-11-2024 take 25 mg by mouth once daily Metoprolol Succinate Active 25 MG PO Daily January 11, 2024 12:00am Start: 03-08-2023 take 1 tablet by rayne th once daily metoprolol succinate (TOPROL XL) 25 MG extended release tablet Indications: POTS (postural orthostatic tachycardia syndrome) Take 1 tablet by mouth daily 90 tablet 3 03/08/2023 Active take 1 tablet by rayne th every twenty-four hours in the morning metoprolol succinate XL (Toprol-XL) 25 MG 24 hr tablet Take 25 mg by mouth in the morning. Active take 1 tablet by rayne th every twenty-four hours Metoprolol Succinate ER 25 MG 1 tablet Orally Once a day Active Metoprolol Succi brooke Active Pnv,Calcium 39-Rkaf-Byusq Acid ( Vitamin Plus Low Iron) 27 mg iron- 1 mg tablet (1 source) Start: 01-11-2024 take 1 tablet by mouth once daily Pnv,Calcium 44-Utve-Aqvde Acid ( Vitamin Plus Low Iron) 27 mg iron- 1 mg tablet Active 1 TAB PO Daily January 11, 2024 12:00am polysaccharide iron complex 391 mg oral capsule (1 source) Start: 11-17-2021 take 1 capsule by mouth once daily PROFE 391.3 (180 Fe) MG CAPS TAKE ONE CAPSULE BY MOUTH DAILY 0 11/17/2021 Active predniSONE 20 mg oral tablet (2 sources) Start: 07-28-2022 take 1 tablet by mouth twice daily predniSONE 20 MG 1 tablet Orally bid w/ food for 5 days July, Active (3 sources) Active Vit-Fe Fumarate-FA ( Vitamins) 28-0.8 MG tablet (7 sources) Start: 11-17-2023 End: 11-16-2024 take 1 tablet by mouth once daily Vit-Fe Fumarate-FA ( Vitamins) 28-0.8 MG tablet Indications: Mother currently breast-feeding Take 1 tablet by mouth Daily 30 tablet 11 11/17/2023 11/16/2024 Active Start: 11-16-2023 End: 11-15-2024 take 1 tablet by mouth once daily Vit-Fe Fumarate-FA ( Vitamins) 28-0.8 MG tablet Indications: S/P section Take 1 tablet by mouth Daily 30 tablet 11 11/16/2023 11/15/2024 Active Vit-Fe Fumarate-FA (PREPLUS) 27-1 MG TABS (2 sources) Start: 02-10-2021 take 1 tablet by mouth once daily Vit-Fe Fumarate-FA (PREPLUS) 27-1 MG TABS TAKE ONE TABLET BY MOUTH ONCE DAILY FOR 30 DAYS 0 02/10/2021 Active Completed/Discontinued Medications Medication Drug Class(es) Dates Sig (Normalized) Sig (Original) acetaminophen 325 mg / oxyCODONE hydrochloride 5 mg oral tablet (4 sources) Opioid Agonist Start: 11-14-2023 End: 12-20-2023 take 1 tablet by mouth every four hours as needed for pain oxyCODONE-acetamin ophen (Percocet) 5-325 MG tablet Take 1 tablet by mouth every 4 (four) hours if needed for moderate pain 11/14/2023 12/20/2023 Discontinued (Other) cephalexin 500 mg oral capsule (3 sources) Cephalosporin Antibacterial Start: 10-31-2023 End: 11-16-2023 take 1 capsule by mouth three times daily cephalexin (Keflex) 500 MG capsule TAKE ONE CAPSULE BY MOUTH THREE TIMES A DAY FOR 7 DAYS 10/31/2023 11/16/2023 Discontinued ferrous sulfate 325 mg oral tablet (3 sources) Start: 01-11-2024 End: 01-11-2024 take 1 tablet by mouth once daily Ferrous Sulfate (Ferosul) 325 mg (65 mg iron) tablet Discontinued 325 MG PO Daily January 11, 2024 12:00am January 11, 2024 10:51am Start: 11-14-2023 End: 12-20-2023 take 1 tablet by mouth once daily FeroSul 325 (65 Fe) MG tablet Take 1 tablet by mouth Daily 11/14/2023 12/20/2023 Discontinued (Other) iopamidol (ISOVUE-370) 76 % injection 75 mL (1 source) Start: 09-20-2023 End: 09-20-2023 iopamidol (ISOVUE-370) 76 % injection 75 mL norethindrone 0.35 mg oral tablet (6 sources) Start: 12-20-2023 End: 12-19-2024 take 1 tablet by mouth once daily norethindrone (Micronor) 0.35 MG tablet Indications: Encounter for female control Take 1 tablet (0.35 mg) by mouth Daily 28 tablet 11 12/20/2023 07/11/2024 Discontinued (Therapy completed) omeprazole 20 mg delayed release oral capsule (5 sources) Proton Pump Inhibitor End: 11-16-2023 take 1 capsule by mouth once daily omeprazole (PriLOSEC) [address] capsule Take 1 capsule by mouth Daily 11/16/2023 Discontinued 27-1 MG tablet (2 sources) Start: 12-15-2023 End: 12-20-2023 take 1 tablet by mouth once daily 27-1 MG tablet Take 1 tablet by mouth Daily 12/15/2023 12/20/2023 Discontinued (Other) Uujuzaxc-Tfq-Ic-FA (, w/Iron & FA,) 27-0.8 MG tablet (5 sources) End: 12-20-2023 take 1 tablet by mouth once daily Zcjfzgod-Zuq-Sy-FA (, w/Iron & FA,) 27-0.8 MG tablet Take 1 each by mouth 1 (one) time each day at the same time 12/20/2023 Discontinued (Other) take 1 tablet by mouth once poli y Gwrsegob-Ikx-Jz-FA (, w/Iron & FA,) 27-0.8 MG tablet Take 1 each by mouth 1 (one) time each day at the same time Active Problems Active Problems Problem Classification Problem Date Documented Date Episodic/Chronic Anxiety disorders (4 sources) Generalized anxiety disorder; Translations: [Generalized anxiety disorder] Onset: 08-10-2017 01-11-2024 Chronic Cardiac dysrhythmias (4 sources) Ventricular premature complex; Translations: [Ventricular premature depolarization] Onset: 07-16-2016 01-11-2024 Chronic Cardiac dysrhythmias (7 sources) Palpitations; Translations: [Palpitations] Onset: 07-12-2016 Episodic Contraceptive and procreative management (2 sources) Contraception status; Translations: [Encounter for initial prescription of contraceptives, unspecified] 12-20-2023 Episodic Diabetes mellitus without complication (5 sources) Other abnormal glucose; Translations: [Abnormal glucose level] Onset: 12-11-2021 Episodic Fluid and electrolyte disorders (2 sources) Hypokalemia; Translations: [Hypo-osmolality and hyponatremia] Onset: 07-26-2023 Episodic Immunizations and screening for infectious disease (7 sources) Contact with and (suspected) exposure to other viral communicable diseases; Translations: [Encounter for screening for human papillomavirus (HPV)] Onset: 08-20-2021 Episodic Lymphadenitis (1 source) Localized enlarged lymph nodes Episodic Nausea and vomiting (1 source) Nausea; Translations: [Nausea] 01-11-2024 Episodic Other circulatory disease (1 source) Postural orthostatic tachycardia syndrome ; Translations: [Postural orthostatic tachycardia syndrome (POTS)] Onset: 07-28-2023 Episodic Other complications of (1 source) Anemia of ; Translations: [Anemia complicating , unspecified trimester] 01-11-2024 Chronic Other female genital disorders (2 sources) Abnormal uterine bleeding; Translations: [Abnormal uterine and vaginal bleeding, unspecified] 07-11-2024 Chronic Other infections; including parasitic (1 source) 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; Translations: [Post-COVID syndrome] 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-2021 03-09-2021 Chronic Other infections; including parasitic (1 source) Post-viral disorder; Translations: [Post-COVID syndrome] 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-2021 03-09-2021 Chronic Other and delivery including normal (12 sources) Encounter for routine follow-up; Translations: [Single live ] Onset: 09-04-2021 Episodic Other skin disorders (1 source) Sebaceous cyst Episodic Other upper respiratory infections (4 sources) Acute pharyngitis, unspecified; Translations: [Acute upper respiratory infection, unspecified] Episodic Residual codes; unclassified (1 source) Personal history of other specified conditions; Translations: [Personal history of other specified conditions] Onset: 07-28-2023 Episodic Skin and subcutaneous tissue infections (1 source) Abscess of skin and/or subcutaneous tissue; Translations: [Cutaneous abscess, unspecified] 01-11-2024 Episodic Sprains and strains (1 source) Strain of muscle, fascia and tendon at neck level, initial encounter Episodic Unclassified (1 source) CONTACT W/AND (SUSP) EXPOS COVID-19; Translations: [CONTACT W/AND (SUSP) EXPOS COVID-19] Onset: 09-03-2021 Past or Other Problems Problem Classification Problem Date Documented Date Episodic/Chronic Conditions associated with dizziness or vertigo (4 sources) Lightheadedness; Translations: [Dizziness and giddiness] Onset: 03-08-2023 Episodic Hemorrhage during ; abruptio placenta; placenta previa (5 sources) Low lying placenta NOS or without hemorrhage, unspecified trimester; Translations: [Low lying placenta NOS or without hemorrhage, second trimester] Onset: 09-18-2021 Episodic Nonspecific chest pain (2 sources) Chest pain, unspecified; Translations: [Chest pain] Onset: 07-12-2016 01-11-2024 Episodic OB-related trauma to perineum and vulva [...] WEEKS GESTATION OF ] Onset: 09-03-2021 Episodic Syncope (1 source) Syncope and collapse; Translations: [Syncope and collapse] Onset: 07-16-2016 01-11-2024 Episodic Results Test Name Value Interpretation Reference Range Facility HCG ( test) Ql (U)o n 07-11-2024 Interpretation and review of laboratory results Normal [facility] re Preg Test, Ur Negative Negative [facility] Urinalysis macro (dipstick) panel (U)on 07-11-2024 Bilirubin, UA Negative Negative - 4(70) +++ mg/dL [facility] Blood, UA Negative Negative - 50 Drake/mcL [facility] Clarity, UA Clear [facility] re Color, UA Yellow [facility] Glucose, [facility]A Negative Negative - 2000(110) ++++ mg/dL [facility] Interpretation and review of laboratory results Normal [facility] re Ketones, UA Negative Negative - 160(16) ++++ mg/dL [facility] Leukocytes, UA Positive Negative - 500+++ Dasia/mcL [facility] Comment on above: small Nitrite, UA Negative Negative - Positive [facility] pH, UA 6 5 - 9 [facility] Protein, UA Negative Negative - 1999(20) ++++ mg/dL [facility] Spec Grav, UA 1.025 1 - 1.03 [facility] Urobilinogen, UA 0.2 0.2 - 12 mg/dL [facility] UR[facility] CULTUREon 11-17-2023 Bacteria identified Cx Nom (U) FINAL Normal (. - .) [facility] Comment on above: Order Comment: [facility] FACILITY: DR CRISTINA - OFFICE [id number] Result Comment: LISA N CATCH MID-STREAM URINE > 10,000 BUT < 100,000 CFU/ML RESEMBLES A CONTAMINATED URINE COLLECTION Performed By: #### C -UR #### [facility] [address] [facility], [address] [address] CHEST PULMONARY EMBOLISM W CONTRASTon 09-21-2023 [...] MD 09/21/23 Final result Normal [facility] CBC with Auto Differentialon 09-20-2023 Basophils (Bld) [#/Vol] 0.05 10*3/uL [facility] Basophils/100 WBC (Bld) 0 % 0 - 2 % [facility] Eosinophils (Bld) [#/Vol] 0.15 10*3/uL [facility] Eosinophils/100 WBC (Bld) 1 % 1 - 4 % [facility] Erythrocyte distribution width (RBC) [Ratio] 12.8 % 11.8 - 14.4 % [facility] Hematocrit (Bld) [Volume fraction] 32.7 % Low 36.3 - 47.1 % [facility] Hemoglobin (Bld) [Mass/Vol] 11.3 g/dL Low 11.9 - 15.1 g/dL [facility] Immature granulocytes (Bld) [#/Vol] 0.20 10*3/uL [facility] Immature granulocytes/100 WBC (Bld) 2 % High 0 [facility] Interpretation and review of laboratory results Abnormal [facility] Lymphocytes/100 WBC (Bld) 17 % Low 24 - 43 % [facility] Lymphocytes/100 WBC (Bld) 2.23 % [facility] MCH (RBC) [Entitic mass] 29.7 pg 25.2 - 33.5 pg [facility] MCHC (RBC) [Mass/Vol] 34.6 g/dL 28.4 - 34.8 g/dL [facility] MCV (RBC) [Entitic vol] 85.8 fL 82.6 - 102.9 fL [facility] Monocytes/100 WBC (Bld) 5 % 3 - 12 % [facility] Monocytes/100 WBC (Bld) 0.72 % [facility] Neutrophils/100 WBC (Bld) 75 % High 36 - 65 % [facility] Nucleated RBC/100 WBC (Bld) [Ratio] 0.0 % 0.0 per 100 WBC [facility] Platelet mean volume (Bld) [Entitic vol] 10.2 fL 8.1 - 13.5 fL [facility] Platelets (Bld) [#/Vol] 293 10*3/uL [facility] RBC (Bld) [#/Vol] 3.81 10*6/uL Low 3.95 - 5.1 1 m/uL [facility] Segmented neutrophils/100 WBC (Bld) 9.90 % High [facility] WBC other (Bld) [#/Vol] 13.3 High [facility] CBC with Diffon 09-20-2023 Abs. Basophil 0.05 k/uL Normal 0.00-0.20 [facility] Comment on above: Performed By: #### C DP, PT, MG #### [facility] [address] [place] [address] [place] [address] Retail Buyer: Rosario Linares MD Abs.Imm.Granulocyte 0.20 k/uL Normal 0.00-0.30 [facility] Comment on above: Performed By: #### C DP, PT, MG #### [facility] [address] [place] [address] [place] [address] Retail Buyer: Rosario Linares MD Abs.Neutrophil (Seg) 9.90 k/uL High 1.50-8.10 [facility] Comment on above: Performed By: #### C DP, PT, MG #### [address] [place] [address] Retail Buyer: Rosario Linares MD Basophils/100 WBC (Bld) 0 % Normal 0-2 [facility] Comment on above: Performed By: #### C DP, PT, MG #### [address] [place] [id number] Retail Buyer: Rosario Linares MD Eosinophils (Bld) [#/Vol] 0.15 10*3/uL Normal 0.00-0.44 [facility] Comment on above: Performed By: #### C DP, PT, MG #### [address] [place] [id number] Retail Buyer: Rosario Linares MD Eosinophils/100 WBC (Bld) 1 % Normal 1-4 [facility] Comment on above: Performed By: #### C DP, PT, MG #### [address] [place], [place] [id number] Retail Buyer: Rosario Linares MD Erythrocyte distribution width (RBC) [Ratio] 12.8 % Normal 11.8-14.4 [facility] Comment on above: Performed By: #### C DP, PT, MG #### [address] [place], [place] [id number] Retail Buyer: Rosario Linares MD Hematocrit (Bld) [Volume fraction] 32.7 % Low 36.3-47.1 [facility] Comment on above: Performed By: #### C DP, PT, MG #### [address] [place], [facility]83 Retail Buyer: Rosario Linares MD Hemoglobin (Bld) [Mass/Vol] 11.3 g/dL Low 11.9-15.1 [facility] Comment on above: Performed By: #### C DP, PT, MG #### [address] [place], [place] [id number] Retail Buyer: Rosario iLnares MD Immature granulocytes/100 WBC (Bld) 2 % High 0 [facility] Comment on above: Performed By: #### C DP, PT, MG #### [address] [place], [place] [id number] Retail Buyer: Rosario Linares MD Lymphocytes (Bld) [#/Vol] 2.23 10*3/uL Normal 1.10-3.70 [facility] Comment on above: Performed By: #### C DP, PT, MG #### [address] [place] [address] Retail Buyer: Rosario Linares MD Lymphocytes/100 WBC (Bld) 17 % Low 24-43 [facility] Comment on above: Performed By: #### C DP, PT, MG #### [address] [place], [facility]83 Retail Buyer: Rosario Linares MD MCH (RBC) [Entitic mass] 29.7 pg Normal 25.2-33.5 [facility] Comment on above: Performed By: #### C DP, PT, MG #### [address] [place], [facility]83 Retail Buyer: Rosario Linares MD MCHC (RBC) [Mass/Vol] 34.6 g/dL Normal 28.4-34.8 [facility] Comment on above: Performed By: #### C DP, PT, MG #### [address] [place], [facility]83 Retail Buyer: Rosario Linares MD MCV (RBC) [Entitic vol] 85.8 fL Normal 82.6-102.9 [facility] Comment on above: Performed By: #### C DP, PT, MG #### [address] [place], [facility]83 Retail Buyer: Rosario Linares MD Monocytes (Bld) [#/Vol] 0.72 10*3/uL Normal 0.10-1.20 [facility] Comment on above: Performed By: #### C DP, PT, MG #### [address] [place], [place] [phone] Retail Buyer: Rosario Linares MD Monocytes/100 WBC (Bld) 5 % Normal 3-12 [facility] Comment on above: Performed By: #### C DP, PT, MG #### [address] [place] [address] Retail Buyer: Rosario Linares MD Neutrophil (Seg) 75 % High 36-65 [facility] Comment on above: Performed By: #### C DP, PT, MG #### [facility] [address] [place], [place] [phone] Retail Buyer: Rosario Linares MD NRBC Automated 0.0 per 100 WBC Normal 0.0 [facility] Comment on above: Performed By: #### C DP, PT, MG #### [facility] [address] [place], [facility]83 Retail Buyer: Rosario Linares MD Platelet mean volume (Bld) [Entitic vol] 10.2 fL Normal 8.1-13.5 [facility] Comment on above: Performed By: #### C DP, PT, MG #### [facility] [address] [place], [facility]83 Retail Buyer: oRsario Linares MD Platelets (Bld) [#/Vol] 293 10*3/uL Normal 138-453 [facility] Comment on above: Performed By: #### C DP, PT, MG #### [address] [place], [place] [id number] Retail Buyer: Rosario Linares MD RBC (Bld) [#/Vol] 3.81 10*6/uL Low 3.95-5.11 [facility] Comment on above: Performed By: #### C DP, PT, MG #### [address] [place], [facility]83 Retail Buyer: Rosario Linares MD WBC (Bld) [#/Vol] 13.3 10*3/uL High 3.5-11.3 [facility] Comment on above: Performed By: #### C DP, PT, MG #### [facility] [address] [place], [place] [phone] Retail Buyer: Rosario Linares MD [facility] Albumin [Mass/Vol] 3.5 g/dL 3.5 - 5.2 g/dL [facility] Albumin/Globulin [Mass ratio] 1.1 {ratio} 1.0 - 2.5 [facility] ALP [Catalytic activity/Vol] 103 U/L 35 - 104 U/L [facility] ALT [Catalytic activity/Vol] 16 U/L 5 - 33 U/L [facility] Anion gap [Moles/Vol] 10 mmol/L 9 - 17 mmol/L [facility] AST [Catalytic activity/Vol] 16 U/L NINF - 32 U/L [facility] Bilirubin [Mass/Vol] 0.2 mg/dL Low 0.3 - 1.2 mg/dL [facility] Calcium [Mass/Vol] 8.4 mg/dL Low 8.6 - 10. 4 mg/dL [facility] Chloride [Moles/Vol] 101 mmol/L 98 - 107 mmol/L [facility] CO2 [Moles/Vol] 22 mmol/L 20 - 31 mmol/L [facility] Creatinine [Mass/Vol] 0.4 mg/dL Low 0.5 - 0.9 mg/dL [facility] Est, Glom Filt Rate - [facility] Comment on above: These results are not intended for use [...] following therapy that affects renal tubular secretion. Glucose [Mass/Vol] 89 mg/dL 70 - 99 mg/dL [facility] Interpretation and review of laboratory results Abnormal [facility] Potassium [Moles/Vol] 3.7 mmol/L 3.7 - 5.3 mmol/L [facility] Protein [Mass/Vol] 6.7 g/dL 6.4 - 8.3 g/dL [facility] Sodium [Moles/Vol] 133 mmol/L Low 135 - 144 mmol/L [facility] Urea nitrogen [Mass/Vol] 7 mg/dL 6 - 20 mg/dL [facility] Urea nitrogen/Creatinine [Mass ratio] 18 mg/mg 9 - [address] [facility] Comp Metabolic Profon 2023 Albumin [Mass/Vol] 3.5 g/dL Normal 3.5-5.2 [facility] Comment on above: Performed By: #### C P #### [facility] [address] [place], [place] [id number] Retail Buyer: Rosario Linares MD Albumin/Glob Ratio 1.1 Normal 1.0-2.5 [facility] Comment on above: Performed By: #### C P #### [facility] [address] [place], [place] [phone] Retail Buyer: Rosario Linares MD Alkaline Phos 103 U/L Normal 35-104 [facility] Comment on above: Performed By: #### C P #### [facility] [address] [place], [place] [id number] Retail Buyer: Rosario Linares MD ALT [Catalytic activity/Vol] 16 U/L Normal 5-33 [facility] Comment on above: Performed By: #### C P #### [facility] [address] [place], [place] [id number] Retail Buyer: Rosario Linares MD Anion gap [Moles/Vol] 10 mmol/L Normal 9-17 [facility] Comment on above: Performed By: #### C P #### [facility] [address] [place], [place] [phone] Retail Buyer: Rosario Linares MD AST [Catalytic activity/Vol] 16 U/L Normal <32 [facility] Comment on above: Performed By: #### C P #### [facility] [address] [place], [place] [id number] Retail Buyer: Rosario Linares MD Bilirubin [Mass/Vol] 0.2 mg/dL Low 0.3-1.2 [facility] Comment on above: Performed By: #### C P #### [facility] [address] [place] [address] Retail Buyer: Rosario Linares MD BUN/CRE Ratio 18 Normal 9-20 [facility] Comment on above: Performed By: #### C P #### [facility] [address] [place] [id number] Retail Buyer: Rosario Linares MD Calcium [Mass/Vol] 8.4 mg/dL Low 8.6-10.4 [facility] Comment on above: Performed By: #### C P #### [facility] [address] [place], [place] [phone] Retail Buyer: Rosario Linares MD Chloride [Moles/Vol] 101 mmol/L Normal 98-107 [facility] Comment on above: Performed By: #### C P #### [facility] [address] [place], [place] [phone] Retail Buyer: Rosario Linares MD CO2 [Moles/Vol] 22 mmol/L Normal 20-31 [facility] Comment on above: Performed By: #### C P #### [facility] [address] [place], [place] [phone] Retail Buyer: Rosario Linares MD Creatinine [Mass/Vol] 0.4 mg/dL Low 0.5-0.9 [facility] Comment on above: Performed By: #### C P #### [facility] [address] [place], [place] 484[address]83 Retail Buyer: Rosario Linares MD GFR/1.73 sq M.predicted among non-blacks MDRD (S/P/Bld) [Vol rate/Area] mL/min/{1.73_m2} Normal >60 [facility] Comment on above: Result Comment: These [...] secretion. Performed By: #### C P #### [facility] [address] [place] [address] Retail Buyer: Rosario Linares MD Glucose [Mass/Vol] 89 mg/dL Normal 70-99 [facility] Comment on above: Performed By: #### C P #### [facility] [address] [place] [address] Retail Buyer: Rosario Linares MD Potassium [Moles/Vol] 3.7 mmol/L Normal 3.7-5.3 [facility] Comment on above: Performed By: #### C P #### [facility] [address] [place], [place] [phone] Retail Buyer: Rosario Linares MD Protein [Mass/Vol] 6.7 g/dL Normal 6.4-8.3 [facility] Comment on above: Performed By: #### C P #### [address] [place] [address] Retail Buyer: Rosario Linares MD Sodium [Moles/Vol] 133 mmol/L Low 135-144 [facility] Comment on above: Performed By: #### C P #### [facility] [address] [place] [address] Retail Buyer: Rosario Linares MD Urea nitrogen [Mass/Vol] 7 mg/dL Normal 6-20 [facility] Comment on above: Performed By: #### C P #### [facility] [address] [place], [place] [phone] Retail Buyer: Rosario Linares MD D-Dimer Teston 09-20-2023 D-Dimer Test 1.32 ug/mL FEU High 0.00-0.59 [facility] Comment on above: Result Comment: When [...] DVT. Performed By: #### D PATI #### [facility] [address] [place] [address] Retail Buyer: Rosario Linares MD D-Dimer, Quantitativeon - Fibrin D-dimer FEU (PPP) [Mass/Vol] 1.32 [facility] Comment on above: When combined with a low clinical probability, [...] more prevalent in patients with distal DVT. Interpretation and review of laboratory results Abnormal [facility] Magnesiumon 09-20-2023 Magnesium [Mass/Vol] 1.8 mg/dL 1.6 - 2.6 mg/dL [facility] Magnesium [Mass/Vol] 1.8 mg/dL Normal 1.6-2.6 [facility] Comment on above: Performed By: #### C DP, PT, MG #### [facility] [address] [place] [address] [place] [address] Retail Buyer: Rosario Linares MD PTon 09-20-2023 INR Coag (PPP) [Relative time] 1.0 {INR} Normal [facility] Comment on above: Result Comment: Therapeutic Range: Moderate Anticoagulant Intensity: INR = 2.0-3.0 High Anticoagulant Intensity: INR = 2.5-3.5 Performed By: #### C DP, PT, MG #### [address] [place] [address] Retail Buyer: Rosario Linares MD Therapeutic Range: Moderate Anticoagulant Intensity: INR = 2.0-3.0 High Anticoagulant Intensity: INR = 2.5-3.5 PT Coag (PPP) [Time] 12.8 s Normal 11.7-14.1 [facility] Comment on above: Performed By: #### C DP, PT, MG #### [address] [place] [address] Retail Buyer: Rosario Linares MD Protime-INRon 09-20-2023 [facility] TSHon 06-25-2024 TSH Qn 2.11 m[IU]/L [facility] Thyroid Stim. Horm.on 2023 Thyroid Stim. Horm. 2.11 uIU/mL Normal 0.30-5.00 [facility] Comment on above: Performed By: #### T SH #### [facility] [address] [place] [address] Retail Buyer: Rosario Linares MD Troponinon 09-20-2023 Troponin I.cardiac High sensitivity method [Mass/Vol] ng/L 0 - 14 ng/L [facility] Comment on above: High Sensitivity Tro ponin values cannot be compared with other Troponin methodologies. [facility] Troponin, High Sens <6 Normal 0-14 [facility] Comment on above: Result Comment: High Sensitivity Troponin values cannot be compared with other Troponin methodologies. Performed By: #### T ROPI #### [facility] [address] [place] [address] Retail Buyer: Rosario Linares MD Basic Metabolic Profon 07-25 Anion gap [Moles/Vol] 13 mmol/L Normal 9-17 [facility] Comment on above: Performed By: #### C DP, BMP #### [facility] [address] [place] [address] Retail Buyer: Rosario Linares MD BUN/CRE Ratio 18 Normal 9-20 [facility] Comment on above: Performed By: #### C DP, BMP #### [facility] [address] [place] [address] Retail Buyer: Rosario Linares MD Calcium [Mass/Vol] 8.7 mg/dL Normal 8.6-10.4 [facility] Comment on above: Performed By: #### C DP, BMP #### [facility] [address] [place] [address] Retail Buyer: Rosario Linares MD Chloride [Moles/Vol] 100 mmol/L Normal 98-107 [facility] Comment on above: Performed By: #### C DP, BMP #### [facility] [address] [place] [address] Retail Buyer: Rosario Linares MD CO2 [Moles/Vol] 21 mmol/L Normal 20-31 [facility] Comment on above: Performed By: #### C DP, BMP #### [facility] [address] [place] [address] Retail Buyer: Rosario Linares MD Creatinine [Mass/Vol] 0.4 mg/dL Low 0.5-0.9 [facility] Comment on above: Performed By: #### C DP, BMP #### [facility] [address] [place] [address] Retail Buyer: Rosario Linares MD GFR/1.73 sq M.predicted among non-blacks MDRD (S/P/Bld) [Vol rate/Area] mL/min/{1.73_m2} Normal >60 [facility] Comment on above: Result Comment: These [...] Performed By: #### C DP, BMP #### [facility] [address] [place] [address] Retail Buyer: Rosario Linarse MD Glucose [Mass/Vol] 115 mg/dL High 70-99 [facility] Comment on above: Performed By: #### C DP, BMP #### [facility] [address] [place] [address] Retail Buyer: Rosario Linares MD Potassium [Moles/Vol] 3.4 mmol/L Low 3.7-5.3 [facility] Comment on above: Performed By: #### C DP, BMP #### [facility] [address] [place], [place] [phone] Retail Buyer: Rosario Linares MD Sodium [Moles/Vol] 134 mmol/L Low 135-144 [facility] Comment on above: Performed By: #### C DP, BMP #### [facility] [address] [place], [facility]83 Retail Buyer: Rosario Linares MD Urea nitrogen [Mass/Vol] 7 mg/dL Normal 6-20 [facility] Comment on above: Performed By: #### C DP, BMP #### [facility] [address] [place], [facility]83 Retail Buyer: Rosario Linares MD CBC with Diffon 07-26-2023 Abs. Basophil 0.04 k/uL Normal 0.00-0.20 [facility] Comment on above: Performed By: #### C DP, BMP #### [facility] [address] [place] [address] Dr. [place], [facility]83 Retail Buyer: Rosario Linares MD Abs.Imm.Granulocyte 0.07 k/uL Normal 0.00-0.30 [facility] Comment on above: Performed By: #### C DP, BMP #### [address] [place], [facility]83 Retail Buyer: Rosario Linares MD Abs.Neutrophil (Seg) 8.51 k/uL High 1.50-8.10 [facility] Comment on above: Performed By: #### C DP, BMP #### [facility] [address] [place], [facility]83 Retail Buyer: Rosario Linares MD Basophils/100 WBC (Bld) 0 % Normal 0-2 [facility] Comment on above: Performed By: #### C DP, BMP #### [facility] [address] [place], [place] [phone] Retail Buyer: Rosario Linares MD Eosinophils (Bld) [#/Vol] 0.11 10*3/uL Normal 0.00-0.44 [facility] Comment on above: Performed By: #### C DP, BMP #### [facility] [address] [place] [address] Dr. [place], [facility]83 Retail Buyer: Rosario Linares MD Eosinophils/100 WBC (Bld) 1 % Normal 1-4 [facility] Comment on above: Performed By: #### C DP, BMP #### [address] [place] [id number] Retail Buyer: Rosario Linares MD Erythrocyte distribution width (RBC) [Ratio] 13.0 % Normal 11.8-14.4 [facility] Comment on above: Performed By: #### C DP, BMP #### [address] [place], [place] [address] Retail Buyer: Rosario Linares MD Hematocrit (Bld) [Volume fraction] 36.2 % Low 36.3-47.1 [facility] Comment on above: Performed By: #### C DP, BMP #### [address] [place], [facility]83 Retail Buyer: Rosario Linares MD Hemoglobin (Bld) [Mass/Vol] 12.2 g/dL Normal 11.9-15.1 [facility] Comment on above: Performed By: #### C DP, BMP #### [address] [place], [facility]83 Retail Buyer: Rosario Linares MD Immature granulocytes/100 WBC (Bld) 1 % High 0 [facility] Comment on above: Performed By: #### C DP, BMP #### [address] [place], [place] 5356083 Retail Buyer: Rosario Linares MD Lymphocytes (Bld) [#/Vol] 2.63 10*3/uL Normal 1.10-3.70 [facility] Comment on above: Performed By: #### C DP, BMP #### [address] [place], [place] 5803683 Retail Buyer: Rosario Linares MD Lymphocytes/100 WBC (Bld) 22 % Low 24-43 [facility] Comment on above: Performed By: #### C DP, BMP #### [address] [place] [phone] Retail Buyer: Rosario Linares MD MCH (RBC) [Entitic mass] 29.8 pg Normal 25.2-33.5 [facility] Comment on above: Performed By: #### C DP, BMP #### [address] [place] [phone] Retail Buyer: Rosario Linares MD MCHC (RBC) [Mass/Vol] 33.7 g/dL Normal 28.4-34.8 [facility] Comment on above: Performed By: #### C DP, BMP #### [address] [place] [address] Retail Buyer: Rosario Linares MD MCV (RBC) [Entitic vol] 88.5 fL Normal 82.6-102.9 [facility] Comment on above: Performed By: #### C DP, BMP #### [address] [place], [facility]83 Retail Buyer: Rosario Linares MD Monocytes (Bld) [#/Vol] 0.44 10*3/uL Normal 0.10-1.20 [facility] Comment on above: Performed By: #### C DP, BMP #### [address] [place] [address] Retail Buyer: Rosario Linares MD Monocytes/100 WBC (Bld) 4 % Normal 3-12 [facility] Comment on above: Performed By: #### C DP, BMP #### [facility] [address] [place], [place] 3057483 Retail Buyer: Rosario Linares MD Neutrophil (Seg) 72 % High 36-65 [facility] Comment on above: Performed By: #### C DP, BMP #### [facility] [address] [place], [place] 1731883 Retail Buyer: Rosario Linares MD NRBC Automated 0.0 per 100 WBC Normal 0.0 [facility] Comment on above: Performed By: #### C DP, BMP #### [address] [place], [place] [address]3 Retail Buyer: Rosario Linares MD Platelet mean volume (Bld) [Entitic vol] 10.3 fL Normal 8.1-13.5 [facility] Comment on above: Performed By: #### C DP, BMP #### [address] [place], [place] 5238883 Retail Buyer: Rosario Linares MD Platelets (Bld) [#/Vol] 289 10*3/uL Normal 138-453 [facility] Comment on above: Performed By: #### C DP, BMP #### [address] [place], [place] [phone] Retail Buyer: Rosario Linares MD RBC (Bld) [#/Vol] 4.09 10*6/uL Normal 3.95-5.11 [facility] Comment on above: Performed By: #### C DP, BMP #### [address] [place], [place] 3615583 Retail Buyer: Rosario Linares MD WBC (Bld) [#/Vol] 11.8 10*3/uL High 3.5-11.3 [facility] Comment on above: Performed By: #### C DP, BMP #### [address] [place] 9146083 Retail Buyer: Rosario Linares MD Troponinon 07-26-2023 Troponin, High Sens 6 ng/L Normal 0-14 [facility] Comment on above: Result Comment: High Sensitivity Troponin values cannot be compared with other Troponin methodologies. Performed By: #### T ROPI #### [facility] [address] [place], [place] 5862483 Retail Buyer: Rosario Linares MD UA w/Reflex Cultureon 2023 Bilirubin, SemiQt,Ur Negative Normal NEG [facility] Comment on above: Performed By: #### C DP, BMP #### [facility] [address] [place], [facility]83 Retail Buyer: Rosario Linares MD Blood, Urine Negative Normal NEG [facility] Comment on above: Performed By: #### C DP, BMP #### [facility] [address] [place], [facility]83 Retail Buyer: Rosario Linares MD Clarity (U) Clear Normal CLEAR [facility] Comment on above: Performed By: #### C DP, BMP #### [facility] [address] [place], [facility]83 Retail Buyer: Rosario Linares MD Color (U) Yellow Normal YEL [facility] Comment on above: Performed By: #### C DP, BMP #### [facility] [address] [place], [facility]83 Retail Buyer: Rosario Linares MD Glucose Ql (U) Negative Normal NEG [facility] Comment on above: Performed By: #### C DP, BMP #### [facility] [address] [place], [place] [phone] Retail Buyer: Rosario Linares MD Ketones Ql (U) Negative Normal NEG [facility] Comment on above: Performed By: #### C DP, BMP #### [facility] [address] [place], [place] 5676783 Retail Buyer: Rosario Linares MD Leukocyte esterase Test strip Ql (U) SMALL Abnormal NEG [facility] Comment on above: Performed By: #### C DP, BMP #### [facility] [address] [place] [address] Retail Buyer: Rosario Linares MD Nitrite,Ur Negative Normal NEG [facility] Comment on above: Performed By: #### C DP, BMP #### [facility] [address] [place], [facility]83 Retail Buyer: Rosario Linares MD PH,Ur 8.0 Normal 5.0-9.0 [facility] Comment on above: Performed By: #### C DP, BMP #### [address] [place], [place] [address] Retail Buyer: Rosario Linares MD Protein Ql (U) Negative Normal NEG [facility] Comment on above: Performed By: #### C DP, BMP #### [address] [place], [place] [address] Retail Buyer: Rosario Linares MD Spec. [place],Ur 1.015 Normal 1.010-1.020 [facility] Comment on above: Performed By: #### C DP, BMP #### [facility] [address] [place], [facility]83 Retail Buyer: Rosario Linares MD Urobilinogen,Ur Normal Normal 0.0-1.0 [facility] Comment on above: Performed By: #### C DP, BMP #### [facility] [address] [place], [place] [phone] Retail Buyer: Rosario Linares MD Urinalysis,Microon 4 Bacteria TRACE Abnormal NONE [facility] Comment on above: Performed By: #### C DP, BMP #### [facility] [address] [place] [address] Retail Buyer: Rosario Linares MD Epithelial cells LM Ql (Urine sed) 5 TO 10 Normal 0-25 [facility] Comment on above: Performed By: #### C DP, BMP #### [facility] [address] [place], [place] [address]26[address]83 Retail Buyer: Rosario Linares MD Urine RBC's None Normal 0-2 [facility] Comment on above: Performed By: #### C DP, BMP #### [facility] [address] [place] [address] Retail Buyer: Rosario Linares MD Urine WBC's 2 TO 5 Normal 0-5 [facility] Comment on above: Performed By: #### C DP, BMP #### [facility] [address] [place] [address] Retail Buyer: Rosario Linares MD COVID/FLU/RSV RT-PCRon 06-04 SARS-CoV-2 (COVID-19) RNA DEVIN+probe Ql (Unsp spec) Negative [facility] Other COVID/FLU/RSV RT-PCR Negative [facility] Other Quick Strepon 06-04-2022 S. pyogenes Org specific cx Ql (Throat) Negative [facility] Other Quick Strep [facility] Other CBC AUTO DIFFon 01-24-2022 BASO # 0.1 103/ul Normal 0.0-0.1 [facility] Comment on above: Performed By: #### A FPTET #### [facility] [address] [place], [place] [address] Dr. Belkys Fajardo Basophils/100 WBC (Bld) 0.3 % Normal 0.2-2.0 [facility] Comment on above: Performed By: #### A FPTET #### [facility] [address] [place] [address] [address] Belkys Fajardo EO # 0.1 103/ul Normal 0.0-0.7 [facility] Comment on above: Performed By: #### A FPTET #### [facility] [address] [place] [address] Dr. Belkys Fajardo Eosinophils/100 WBC (Bld) 0.9 % Normal 0.9-7.0 [facility] Comment on above: Performed By: #### A FPTET #### [facility] [address] [place] [address] Dr. Belkys Fajardo Erythrocyte distribution width (RBC) [Ratio] 14.0 % Normal 11.0-15.0 [facility] Comment on above: Performed By: #### A FPTET #### [facility] [address] [place] [address] Dr. Belkys Fajardo Hematocrit (Bld) [Volume fraction] 24.8 % Critically low 36.0-48.0 [facility] Comment on above: Performed By: #### A FPTET #### [facility] [address] [place] [address] Dr. Belkys Fajardo Hemoglobin (Bld) [Mass/Vol] 8.2 g/dL Critically low 12.0-16.0 [facility] Comment on above: Performed By: #### A FPTET #### [facility] [address] [place] [address] Dr. Belkys Fajardo IG # 0.23 10e3/ul Critically high 0.00-0.03 [facility] Comment on above: Performed By: #### A FPTET #### [facility] [address] [place] [address] Dr. Belkys Fajardo IG % 1.5 % Critically high 0.0-0.5 [facility] Comment on above: Performed By: #### A FPTET #### [facility] [address] [place] [address] Dr. Belkys Fajardo LYMPH # 2.4 103/ul Normal 1.2-3.8 [facility] Comment on above: Performed By: #### A FPTET #### [facility] [address] [place] [address] Dr. Belkys Fajardo Lymphocytes/100 WBC (Bld) 15.5 % Critically low 20.5-60.0 [facility] Comment on above: Performed By: #### A FPTET #### [facility] [address] [place] [address] Dr. Belkys Fajardo MANUAL DIFF REQ NO Normal [facility] Comment on above: Performed By: #### A FPTET #### [facility] [address] [place] [address] Dr. Belkys Fajardo MCH (RBC) [Entitic mass] 28.5 pg Normal 26.7-34.0 [facility] Comment on above: Performed By: #### A FPTET #### [facility] [address] [place] [address] Dr. Belkys Fajardo MCHC (RBC) [Mass/Vol] 33.1 g/dL Normal 29.9-35.2 [facility] Comment on above: Performed By: #### A FPTET #### [facility] [address] [place] [address] Dr. Belkys Fajardo MCV (RBC) [Entitic vol] 86.1 fL Normal 81.0-99.0 [facility] Comment on above: Performed By: #### A FPTET #### [facility] [address] [place] [address] Dr. Belkys Fajardo MONO # 0.8 103/ul Normal 0.3-0.8 [facility] Comment on above: Performed By: #### A FPTET #### [facility] [address] [place] [address] Dr. Belkys Fajardo Monocytes/100 WBC (Bld) 5.4 % Normal 1.7-12.0 [facility] Comment on above: Performed By: #### A FPTET #### [facility] [address] [place] [address] Dr. Belkys Fajardo NEUT # 11.6 103/ul Critically high 1.4-6.5 [facility] Comment on above: Performed By: #### A FPTET #### [facility] [address] [place] [address] [address] Belkys Fajardo Neutrophils/100 WBC (Bld) 76.4 % Critically high 43.0-75.0 [facility] Comment on above: Performed By: #### A FPTET #### [facility] [address] [place] [address] [address] Belkys Fajardo Platelet mean volume (Bld) [Entitic vol] 10.2 fL Normal 9.5-13.5 [facility] Comment on above: Performed By: #### A FPTET #### [facility] [address] [place] [address] [address] Belkys Fajardo PLT 235 103/ul Normal 150-450 [facility] Comment on above: Performed By: #### A FPTET #### [facility] [address] [place] [address] Dr. Belkys Fajardo RBC 2.88 106/ul Critically low 4.20-5.40 [facility] Comment on above: Performed By: #### A FPTET #### [facility] [address] [place] [address] [address] Belkys Fajardo WBC 15.2 103/ul Critically high 4.0-11.0 [facility] Comment on above: Performed By: #### A FPTET #### [facility] [address] [place] [address] [address] Belkys Fajardo CBC AUTO DIFFon 01-23-2022 BASO # 0.1 103/ul Normal 0.0-0.1 [facility] Comment on above: Performed By: #### A FPTET #### [facility] [address] [place] [address] [address] Belkys Fajardo Basophils/100 WBC (Bld) 0.4 % Normal 0.2-2.0 [facility] Comment on above: Performed By: #### A FPTET #### [facility] [address] [place] [address] [address] Belkys Fajardo EO # 0.1 103/ul Normal 0.0-0.7 [facility] Comment on above: Performed By: #### A FPTET #### [facility] [address] [place] [address] Dr. Belkys Fajardo Eosinophils/100 WBC (Bld) 0.5 % Critically low 0.9-7.0 [facility] Comment on above: Performed By: #### A FPTET #### [facility] [address] [place] [address] Dr. Belkys Fajardo Erythrocyte distribution width (RBC) [Ratio] 13.8 % Normal 11.0-15.0 [facility] Comment on above: Performed By: #### A FPTET #### [facility] [address] [place] [address] Dr. Belkys Fajardo Hematocrit (Bld) [Volume fraction] 32.5 % Critically low 36.0-48.0 [facility] Comment on above: Performed By: #### A FPTET #### [facility] [address] [place] [address] Dr. Belkys Fajardo Hemoglobin (Bld) [Mass/Vol] 11.0 g/dL Critically low 12.0-16.0 [facility] Comment on above: Performed By: #### A FPTET #### [facility] [address] [place] [address] Dr. Belkys Fajardo IG # 0.31 10e3/ul Critically high 0.00-0.03 [facility] Comment on above: Performed By: #### A FPTET #### [facility] [address] [place] [address] Dr. Belkys Fajardo IG % 1.6 % Critically high 0.0-0.5 [facility] Comment on above: Performed By: #### A FPTET #### [facility] [address] [place] [address] Dr. Belkys Fajardo LYMPH # 2.0 103/ul Normal 1.2-3.8 [facility] Comment on above: Performed By: #### A FPTET #### [facility] [address] [place] [address] Dr. Belkys Fajardo Lymphocytes/100 WBC (Bld) 10.2 % Critically low 20.5-60.0 [facility] Comment on above: Performed By: #### A FPTET #### [facility] [address] [place] [address] Dr. Belkys Fajardo MANUAL DIFF REQ NO Normal [facility] Comment on above: Performed By: #### A FPTET #### [facility] [address] [place] [address] Dr. Belkys Fajardo MCH (RBC) [Entitic mass] 28.4 pg Normal 26.7-34.0 [facility] Comment on above: Performed By: #### A FPTET #### [facility] [address] [place] [address] Dr. Belkys Fajardo MCHC (RBC) [Mass/Vol] 33.8 g/dL Normal 29.9-35.2 [facility] Comment on above: Performed By: #### A FPTET #### [facility] [address] [place] [address] Dr. Belkys Fajardo MCV (RBC) [Entitic vol] 83.8 fL Normal 81.0-99.0 [facility] Comment on above: Performed By: #### A FPTET #### [facility] [address] [place] [address] Dr. Belkys Fajardo MONO # 0.9 103/ul Critically high 0.3-0.8 [facility] Comment on above: Performed By: #### A FPTET #### [facility] [address] [place] [address] Dr. Belkys Fajardo Monocytes/100 WBC (Bld) 4.8 % Normal 1.7-12.0 [facility] Comment on above: Performed By: #### A FPTET #### [facility] [address] [place] [address] Dr. Belkys Fajardo NEUT # 16.0 103/ul Critically high 1.4-6.5 [facility] Comment on above: Performed By: #### A FPTET #### [facility] [address] [place] [address] Dr. Belkys Fajardo Neutrophils/100 WBC (Bld) 82.5 % Critically high 43.0-75.0 [facility] Comment on above: Performed By: #### A FPTET #### [facility] [address] [address] [address] Belkys Fajardo Platelet mean volume (Bld) [Entitic vol] 10.1 fL Normal 9.5-13.5 [facility] Comment on above: Performed By: #### A FPTET #### [facility] [address] [address] [address] Belkys Fajardo PLT 301 103/ul Normal 150-450 [facility] Comment on above: Performed By: #### A FPTET #### [facility] [address] [address] [address] Belkys Fajardo RBC 3.88 106/ul Critically low 4.20-5.40 [facility] Comment on above: Performed By: #### A FPTET #### [facility] [address] [place] [address] Dr. Belkys Fajardo WBC 19.3 103/ul Critically high 4.0-11.0 [facility] Comment on above: Performed By: #### A FPTET #### [facility] [address] [place] [address] Dr. Belkys Fajardo CULTURE URINEon 01-23-2022 CULTURE URINE Culture Observations : LIGHT GROWTH OF MIXED GENITAL HEYDI. NO POTENTIAL PATHOGENS SEEN. Normal [facility] Comment on above: Performed By: #### U ACSIND, UMICRO #### [facility] [address] [place] [address] Dr. Belkys Fajardo Covid-19 PCR ([facility])on 12-27 SARS-CoV-2 (COVID-19) RNA DEVIN+probe Ql (Unsp spec) Not detected Normal NOT DETECTED [facility] Comment on above: Result Comment: When [...] for this test is supported by the [place] [employer] and Human Service's declaration that [...] used). Performed By: #### C VDTBH #### [facility] [address] [place] [address] Dr. Belkys Fajardo DRUG SCREEN RAPID (URINE)on 01-23-2022 AMP Negative Normal NEGATIVE [facility] Comment on above: Performed By: #### A FPTET #### [facility] [address] [place] [address] Dr. Belkys Fajardo BAR Negative Normal NEGATIVE [facility] Comment on above: Performed By: #### A FPTET #### [facility] [address] [place] [address] Dr. Belkys Fajardo BUP Negative Normal NEGATIVE [facility] Comment on above: Performed By: #### A FPTET #### [facility] [address] [place] [address] Dr. Belkys Fajardo BZO Negative Normal NEGATIVE [facility] Comment on above: Performed By: #### A FPTET #### [facility] [address] [place] [address] Dr. Belkys Fajardo VALENCIA Negative Normal NEGATIVE [facility] Comment on above: Performed By: #### A FPTET #### [facility] [address] [place] [address] Dr. Belkys Fajardo CUT-OFFS SEE BELOW Normal [facility] Comment on above: Result Comment: AMP (Amphetamine): 500ng/mL, BAR (Barbituates): 200 ng/mL, BZO (Benzodiazepines): 150 ng/mL, BUP (Buprenorphine): 10 ng/mL, VALENCIA (Cocaine): 150 ng/mL, mAMP (Methamphetamine): 500 ng/mL, MTD (Methadone): 200 ng/mL, OPI (Opiates): 100 ng/mL, OXY (Oxycodone): 100 ng/mL, PCP (Phencyclidine): 25 ng/mL, PPX (Propoxyphene): 300 ng/mL, THC (Cannabinoids): 50 ng/mL, TCA (Trycyclic Antidepressants): 300 ng/mL Performed By: #### A FPTET #### [facility] [address] [place] [address] Dr. Belkys Fajardo DRUG CUT HEADER DRUG CLASS TEST SYSTEM CUT-OFF CONCENTRATIONS ARE FOLLOWS: Normal [facility] Comment on above: Performed By: #### A FPTET #### [facility] [address] [place] [address] Dr. Belkys Fajardo mAMP Negative Normal NEGATIVE [facility] Comment on above: Performed By: #### A FPTET #### [facility] [address] [place] [address] Dr. Belkys Fajardo MTD Negative Normal NEGATIVE [facility] Comment on above: Performed By: #### A FPTET #### [facility] [address] [place] [address] Dr. Belkys Fajardo OPI Negative Normal NEGATIVE [facility] Comment on above: Performed By: #### A FPTET #### [facility] [address] [place] [address] Dr. Belkys Fajardo OXY Negative Normal NEGATIVE [facility] Comment on above: Performed By: #### A FPTET #### [facility] [address] [place] [address] Dr. Belkys Fajardo PCP Negative Normal NEGATIVE [facility] Comment on above: Performed By: #### A FPTET #### [facility] [address] [place] [address] Dr. Belkys Fajardo PPX Negative Normal NEGATIVE [facility] Comment on above: Performed By: #### A FPTET #### [facility] [address] [place] [address] Dr. Belkys Fajardo TCA Negative Normal NEGATIVE [facility] Comment on above: Performed By: #### A FPTET #### [facility] [address] [address] [address] Belkys Fajardo THC Negative Normal NEGATIVE [facility] Comment on above: Performed By: #### A FPTET #### [facility] [address] [address] [address] Belkys Fajardo TYPE AND SCREENon 01-23-2022 TYPE AND SCREEN Negative Normal [facility] Comment on above: Performed By: #### U ACSIND, UMICRO #### [facility] [address] [address] [address] Belkys Fajardo UA (CLEAN/CATCH) GIS SOFTWARE ENGINEER/MICRO I F IND.on 01-23-2022 Bilirubin Ql (U) Negative Normal NEGATIVE [facility] Comment on above: Performed By: #### U ACSIND, UMICRO #### [facility] [address] [place] [address] Dr. Belkys Fajardo Clarity (U) CLEAR Normal CLEAR [facility] Comment on above: Performed By: #### U ACSIND, UMICRO #### [facility] [address] [address] [address] Belkys Fajardo Color (U) LT. YELLOW Normal YELLOW [facility] Comment on above: Performed By: #### U ACSIND, UMICRO #### [facility] [address] [place] [address] Dr. Belkys Fajardo Glucose Ql (U) Negative Normal NEGATIVE [facility] Comment on above: Performed By: #### U ACSIND, UMICRO #### [facility] [address] [address] [address] Belkys Fajardo Hemoglobin Ql (U) TRACE-INTACT Abnormal NEGATIVE [facility] Comment on above: Performed By: #### U ACSIND, UMICRO #### [facility] [address] [address] [address] Belkys Fajardo Ketones Ql (U) Negative Normal NEGATIVE [facility] Comment on above: Performed By: #### U ACSIND, UMICRO #### [facility] [address] [place] [address] Dr. Belkys Fajardo LEUKOCYTES MODERATE Abnormal NEGATIVE [facility] Comment on above: Performed By: #### U ACSTAMELA UMICRO #### [facility] [address] [address] [address] Belkys Fajardo Nitrite Ql (U) Negative Normal NEGATIVE [facility] Comment on above: Performed By: #### U ACSTAMELA UMICRO #### [facility] [address] [place] [address] Dr. Belkys Fajardo pH (U) 6.5 [pH] Normal 5-9 [facility] Comment on above: Performed By: #### U MARIO UMICRO #### [facility] [address] [place] [address] Dr. Belkys Fajardo SPEC GRAVITY 1.015 Normal 1.005-<=1.025 [facility] Comment on above: Performed By: #### U MARIO UMICRO #### [facility] [address] [place] [address] Dr. Belkys Fajardo UA PROTEIN Negative Normal NEGATIVE/ TRACE [facility] Comment on above: Performed By: #### U MARIO UMICRO #### [facility] [address] [place] [address] Dr. Belkys Fajardo UR MICRO IND INDICATED Normal [facility] Comment on above: Performed By: #### U MARIO UMICRO #### [facility] [address] [place] [address] Dr. Belkys Fajardo Urobilinogen Qn (U) 0.2 {Jakob'U}/dL Normal 0.2 - 1. 0 [facility] Comment on above: Performed By: #### U MARIO UMICRO #### [facility] [address] [place] [address] Dr. Belkys Fajardo URINE MICROSCOPIC ONLYon BACTERIA SMALL Abnormal NONE SEEN [facility] Comment on above: Performed By: #### U MARIO UMICRO #### [facility] [address] [place] [address] Dr. Belkys Fajardo Bacteria identified Cx Nom (U) INDICATED Normal [facility] Comment on above: Performed By: #### U ACSIND, UMICRO #### [facility] [address] [place] [address] Dr. Belkys Fajardo CAST NONE SEEN Normal NONE SEEN [facility] Comment on above: Performed By: #### U ACSIND, UMICRO #### [facility] [address] [address] [address] Belkys Fajardo Crystals LM Nom (Urine sed) NONE SEEN Normal NONE SEEN [facility] Comment on above: Performed By: #### U ACSIND, UMICRO #### [facility] [address] [address] [address] Belkys Fajardo Epithelial cells LM Ql (Urine sed) FEW Abnormal NONE SEEN /RARE [facility] Comment on above: Performed By: #### U ACSIND, UMICRO #### [facility] [address] [place] [address] Dr. Belkys Fajardo MUCOUS NONE SEEN Normal NONE SEEN [facility] Comment on above: Performed By: #### U ACSIND, UMICRO #### [facility] [address] [address] [address] Belkys Fajardo RBC NONE SEEN Abnormal 0-2 [facility] Comment on above: Performed By: #### U ACSIND, UMICRO #### [facility] [address] [place] [address] Dr. Belkys Fajardo WBC 5-10 Abnormal NONE SEEN [facility] Comment on above: Performed By: #### U ACSIND, UMICRO #### [facility] [address] [place] [address] Dr. Belkys Fajardo US PREG GROWTHon 01-12-2022 [...] YOGI BLACK Date: 2022-01-12 21:15 Normal [facility] GROUP B STREP CULTUREon 12-26 S. agalactiae Ag Ql (Unsp spec) Culture Observations: NEGATIVE FOR GROUP B STREPTOCOCCUS. Normal [facility] Comment on above: Performed By: #### G BSCX #### [facility] [address] [place] [address] Dr. Belkys Fajardo GTT 3 HR PREGon 12-11-2021 Glucose [Mass/Vol] 91 mg/dL Normal 74-106 [facility] Comment on above: Performed By: #### G TT3P #### [facility] [address] [address] [address] Belkys Fajardo Glucose [Mass/Vol] 172 mg/dL Normal [facility] Comment on above: Performed By: #### G TT3P #### [facility] [address] [address] [address] Belkys Fajardo Glucose [Mass/Vol] 148 mg/dL Normal [facility] Comment on above: Performed By: #### G TT3P #### [facility] [address] [address] [address] Belkys Fajardo Glucose [Mass/Vol] 58 mg/dL Normal [facility] Comment on above: Performed By: #### G TT3P #### [facility] [address] [place] [address] Dr. Belkys Fajardo US PREG GROWTHon 12-08-2021 [...] by: YOGI BLACK Date: 2021-12-08 16:52 Normal [facility] GLUCOSE - 1HRon 11-12-2021 Glucose [Mass/Vol] 143 mg/dL Critically high 74-106 [facility] Comment on above: Performed By: #### U ACSIND, UMICRO #### [facility] [address] [address] [address] Belkys Fajardo HEMOGRAM AND PLATELon 2021 Hematocrit (Bld) [Volume fraction] 31.7 % Critically low 36.0-48.0 [facility] Comment on above: Performed By: #### A FPTET #### [facility] [address] [address] [address] Belkys Fajardo Hemoglobin (Bld) [Mass/Vol] 10.4 g/dL Critically low 12.0-16.0 [facility] Comment on above: Performed By: #### A FPTET #### [facility] [address] [address] [address] Belkys Fajardo MCH (RBC) [Entitic mass] 28.8 pg Normal 26.7-34.0 [facility] Comment on above: Performed By: #### A FPTET #### [facility] [address] [address] [address] Belkys Fajardo MCHC (RBC) [Mass/Vol] 32.8 g/dL Normal 29.9-35.2 [facility] Comment on above: Performed By: #### A FPTET #### [facility] [address] [address] [address] Belkys Fajardo MCV (RBC) [Entitic vol] 87.8 fL Normal 81.0-99.0 [facility] Comment on above: Performed By: #### A FPTET #### [facility] [address] [place] [address] Dr. Belkys Fajardo PLT 261 103/ul Normal 150-450 [facility] Comment on above: Performed By: #### A FPTET #### [facility] [address] [place] [address] Dr. Belkys Fajardo RBC 3.61 106/ul Critically low 4.20-5.40 [facility] Comment on above: Performed By: #### A FPTET #### [facility] [address] [place] [address] Dr. Belkys Fajardo WBC 11.5 103/ul Critically high 4.0-11.0 [facility] Comment on above: Performed By: #### A FPTET #### [facility] [address] [place] [address] Dr. Belkys Fajardo US PREG PLACENTAon 2 [...] YOGI BLACK Date: 2021-11-10 21:07 Normal [facility] US PREG PLACENTAon 2 US PREG PLACENTA EXAMINATION: US PREG PLACENTA HISTORY: Low lying placenta COMPARISON: Ultrasound anatomy 09/16/2021 FINDINGS: PLACENTA: Posterior with lower margin 2.5 cm from os. CERVIX LENGTH: 4.4 cm, closed. HEART RATE: 157 bpm OTHER: None. IMPRESSION: 1. Low-lying posterior placenta; no appreciable change compared to prior study. Electronically authenticated by: YOGI BLACK Date: 2021-10-14 19:56 Normal [facility] US PREG ANATOMY SINGLEon US PREG [...] YOGI BLACK Date: 2021-09-16 16:54 Normal [facility] AFP TETRA PROFILE (MATERNAL) on 09-06-2021 PDF . Normal [facility] Comment on above: Performed By: #### A FPTET #### [facility] [address] [place], [place] [address] Dr. Belkys Fajardo AFP MoM 0.86 Normal [facility] Comment on above: Performed By: #### A FPTET #### [facility] [address] [address] [address] Belkys Fajardo AFP Value 39.7 ng/mL Normal [facility] Comment on above: Performed By: #### A FPTET #### [facility] [address] [address] [address] Belkys Fajardo Comment Comment Normal [facility] Comment on above: Result Comment: Geremias Greer, Ph.D., [facility] Director . References: Available Upon Request. . Multiples Of Median Cutoffs Abbreviation Definitions For AFP Elevations IDD- Insulin Dep Diabetes Granados 2.5 Black 2.8 OSBR- Open Spina Bifida IDD 2.0 Twins 4.5 Risk DSR Cutoff 1:270 DSR- Down Syndrome Risk T18 Cutoff 1:100 T18- Trisomy 18 . Down Syndrome and Trisomy 18 screening are considered Investigational . For further inquiries contact [employer] [facility] at [phone]. Performed By: #### A FPTET #### [facility] [address] [place] [address] Dr. Belkys Fajardo MONIE MoM 0.77 [facility] Comment on above: Performed By: #### A FPTET #### [facility] [address] [place] [address] Dr. Belkys Fajardo MONIE Value 113.50 pg/mL Normal [facility] Comment on above: Performed By: #### A FPTET #### [facility] [address] [place] [address] Dr. Belkys Fajardo DSR (By Age) 1 IN 765 Normal [facility] Comment on above: Performed By: #### A FPTET #### [facility] [address] [place] [address] Dr. Belkys Fajardo DSR (Second Trimester) 1 [place] [address] Normal [facility] Comment on above: Performed By: #### A FPTET #### [facility] [address] [place] [address] Dr. Belkys Fajardo Gest. [age] on Collection Date 18.7 WEEKS Normal [facility] Comment on above: Performed By: #### A FPTET #### [facility] [address] [place] [address] Dr. Belkys Fajardo Gestat. Age Based On LMP Normal [facility] Comment on above: Result Comment: 03/30 Performed By: #### A FPTET #### [facility] [address] [place] [address] Dr. Belkys Fajardo hCG MoM 0.78 Normal [facility] Comment on above: Performed By: #### A FPTET #### [facility] [address] [place] [address] Dr. Belkys Fajardo HCG Qn m[IU]/mL Normal [facility] Comment on above: Performed By: #### A FPTET #### [facility] [address] [place] [address] Dr. Belkys Fajardo Insulin Dep Diabetes No Normal [facility] Comment on above: Performed By: #### A FPTET #### [facility] [address] [place] [address] Dr. Belkys Fajardo Interpretation Comment Normal [facility] Comment on above: Result Comment: Inte [...] identifies 60% of Trisomy 18 pregnancies. The [place] [employer] recommends amniocentesis be offered to women age 35 and older. Recalculations are not recommended when gestational dating by LMP and ultrasound are within 10 days. Performed By: #### A FPTET #### [facility] [address] [place] [address] Dr. Belkys Fajardo [age] Normal [facility] Comment on above: Performed By: #### A FPTET #### [facility] [address] [place] [address] Dr. Belkys Fajardo Multiple Gestation No Normal [facility] Comment on above: Performed By: #### A FPTET #### [facility] [address] [address] [address] Belkys Fajardo OS[place] [address] Normal [facility] Comment on above: Performed By: #### A FPTET #### [facility] [address] [place] [address] Dr. Belkys Fajardo Race Normal [facility] Comment on above: Performed By: #### A FPTET #### [facility] [address] [address] [address] Belkys Fajardo Results Report [facility] Comment on above: Performed By: #### A FPTET #### [facility] [address] [place] [address] Dr. Belkys Fajardo T18 (By Age) 1:2981 Normal [facility] Comment on above: Performed By: #### A FPTET #### [facility] [address] [address] [address] Belkys Fajardo T18 Risk Not increased [facility] Comment on above: Performed By: #### A FPTET #### [facility] [address] [place] [address] Dr. Belkys Fajardo Test Results: Negative Normal [facility] Comment on above: Performed By: #### A FPTET #### [facility] [address] [place] [address] Dr. Belkys Fajardo uE3 MoM 1.43 Normal [facility] Comment on above: Performed By: #### A FPTET #### [facility] [address] [place] [address] Dr. Belkys Fajardo uE3 Value 2.26 ng/mL [facility] Comment on above: Performed By: #### A FPTET #### [facility] [address] [place] [address] Dr. Belkys Fajardo PAP ACOG PANEL 2: 21 to 29on 08-24-2021 . . Normal [facility] Comment on above: Result Comment: Perf ormed at: [facility] Performed By: #### [id number] #### [facility] [address] [place] [address] Dr. Belkys Fajardo Age Gdln ACOG Testing 21-29 [facility] Comment on above: Performed By: #### [id number] #### [facility] [address] [place] [address] Dr. Belkys Fajardo DIAGNOSIS: Comment Normal [facility] Comment on above: Result Comment: NEGA TIVE FOR INTRAEPITHELIAL LESION OR MALIGNANCY. Performed at: [facility] Performed By: #### [id number] #### [facility] [address] [place] [address] Dr. Belkys Fajardo Methodology: Comment [facility] Comment on above: Result Comment: This liquid based ThinPrep(R) pap test was screened with the use of an image guided system. Performed at: [facility] Performed By: #### [id number] #### [facility] [address] [place] [address] Dr. Belkys Fajardo Note: Comment [facility] Comment on above: Result Comment: The Pap smear is a screening test designed to aid in the detection of premalignant and malignant conditions of the uterine cervix. It is not a diagnostic procedure and should not be used as the sole means of detecting cervical cancer. Both false-positive and false-negative reports do occur. . Performed at: [facility] Performed By: #### [id number] #### [facility] [address] [place] [address] Dr. Belkys Fajardo Performed by: Comment Normal [facility] Comment on above: Result Comment: Vicky Avila, Telephone Directory Distributor Driver (ASCP) Performed at: [facility] Performed By: #### [id number] #### [facility] [address] [place] [address] Dr. Belkys Fajardo Reflex Criteria: Comment [facility] Comment on above: Result Comment: The HPV DNA reflex criteria were not met with this specimen result therefore, no HPV testing was performed. . Performed at: [facility] Performed By: #### [id number] #### [facility] [address] [place] [address] Dr. Belkys Fajardo Specimen adequacy: Comment Normal [facility] Comment on above: Result Comment: Sati sfactory for evaluation. No endocervical component is identified. Performed at: Performed By: #### [id number] #### [facility] [address] [place] [address] Dr. Belkys Fajardo CBC AUTO DIFFon 08-22-2021 BASO # 0.0 103/ul Normal 0.0-0.1 [facility] Comment on above: Performed By: #### C BC #### [facility] [address] [place] [address] Dr. Belkys Fajardo Basophils/100 WBC (Bld) 0.2 % Normal 0.2-2.0 [facility] Comment on above: Performed By: #### C BC #### [facility] [address] [place] [address] Dr. Belkys Fajardo EO # 0.2 103/ul Normal 0.0-0.7 [facility] Comment on above: Performed By: #### C BC #### [facility] [address] [place] [address] Dr. Belkys Fajardo Eosinophils/100 WBC (Bld) 1.9 % Normal 0.9-7.0 [facility] Comment on above: Performed By: #### C BC #### [facility] [address] [place] [address] Dr. Belkys Fajardo Erythrocyte distribution width (RBC) [Ratio] 13.4 % Normal 11.0-15.0 [facility] Comment on above: Performed By: #### C BC #### [facility] [address] [place] [address] Dr. Belkys Fajardo Hematocrit (Bld) [Volume fraction] 32.7 % Critically low 36.0-48.0 [facility] Comment on above: Performed By: #### C BC #### [facility] [address] [place] [address] Dr. Belkys Fajardo Hemoglobin (Bld) [Mass/Vol] 11.0 g/dL Critically low 12.0-16.0 [facility] Comment on above: Performed By: #### C BC #### [facility] [address] [place] [address] Dr. Belkys Fajardo IG # 0.05 10e3/ul Critically high 0.00-0.03 [facility] Comment on above: Performed By: #### C BC #### [facility] [address] [place] [address] Dr. Belkys Fajardo IG % 0.5 % Normal 0.0-0.5 [facility] Comment on above: Performed By: #### C BC #### [facility] [address] [place] [address] Dr. Belkys Fajardo LYMPH # 2.3 103/ul Normal 1.2-3.8 [facility] Comment on above: Performed By: #### C BC #### [facility] [address] [place] [address] Dr. Belkys Fajardo Lymphocytes/100 WBC (Bld) 22.4 % Normal 20.5-60.0 [facility] Comment on above: Performed By: #### C BC #### [facility] [address] [place] [address] Dr. Belkys Fajardo MANUAL DIFF REQ NO Normal [facility] Comment on above: Performed By: #### C BC #### [facility] [address] [place] [address] Dr. Belkys Fajardo MCH (RBC) [Entitic mass] 29.3 pg Normal 26.7-34.0 [facility] Comment on above: Performed By: #### C BC #### [facility] [address] [place] [address] Dr. Belkys Fajardo MCHC (RBC) [Mass/Vol] 33.6 g/dL Normal 29.9-35.2 [facility] Comment on above: Performed By: #### C BC #### [facility] [address] [place] [address] Dr. Belkys Fajardo MCV (RBC) [Entitic vol] 87.2 fL Normal 81.0-99.0 [facility] Comment on above: Performed By: #### C BC #### [facility] [address] [place] [address] Dr. Belkys Fajardo MONO # 0.6 103/ul Normal 0.3-0.8 [facility] Comment on above: Performed By: #### C BC #### [facility] [address] [place] [address] Dr. Belkys Fajardo Monocytes/100 WBC (Bld) 5.5 % Normal 1.7-12.0 [facility] Comment on above: Performed By: #### C BC #### [facility] [address] [place] [address] Dr. Belkys Fajardo NEUT # 7.1 103/ul Critically high 1.4-6.5 [facility] Comment on above: Performed By: #### C BC #### [facility] [address] [place] [address] Dr. Belkys Fajardo Neutrophils/100 WBC (Bld) 69.5 % Normal 43.0-75.0 [facility] Comment on above: Performed By: #### C BC #### [facility] [address] [place] [address] Dr. Belkys Fajardo Platelet mean volume (Bld) [Entitic vol] 10.3 fL Normal 9.5-13.5 [facility] Comment on above: Performed By: #### C BC #### [facility] [address] [place] [address] Dr. Belkys Fajardo PLT 258 103/ul Normal 150-450 [facility] Comment on above: Performed By: #### C BC #### [facility] [address] [place] [address] Dr. Belkys Fajardo RBC 3.75 106/ul Critically low 4.20-5.40 [facility] Comment on above: Performed By: #### C BC #### [facility] [address] [place] [address] Dr. Belkys Fajardo WBC 10.2 103/ul Normal 4.0-11.0 [facility] Comment on above: Performed By: #### C BC #### [facility] [address] [place] [address] Dr. Belkys Fajardo CTA CHEST WO W [...] ROSARIO HERNANDEZ Date: 2021-08-22 08:31 Normal [facility]on 07-27 SARS-CoV-2 (COVID-19) RNA DEVIN+probe Ql (Unsp spec) Not detected Normal NOT DETECTED [facility] Comment on above: Result Comment: When [...] for this test is supported by the [place] of Health and Human Service's declaration that [...] used). Performed By: #### C VDTBH #### [facility] [address] [place] [address] Dr. Belkys Fajardo PROF 14(COMP METB)on 022 Albumin [Mass/Vol] 3.0 g/dL Critically low 3.4-5.0 [facility] Comment on above: Performed By: #### A FPTET #### [facility] [address] [place] [address] Dr. Belkys Fajardo Albumin/Globulin [Mass ratio] 0.8 {ratio} Normal [facility] Comment on above: Performed By: #### A FPTET #### [facility] [address] [place] [address] Dr. Belkys Fajardo ALP [Catalytic activity/Vol] 52 U/L Normal 46-116 [facility] Comment on above: Performed By: #### A FPTET #### [facility] [address] [place] [address] Dr. Belkys Fajardo ALT [Catalytic activity/Vol] 32 U/L Normal 14-59 [facility] Comment on above: Performed By: #### A FPTET #### [facility] [address] [place] [address] Dr. Belkys Fajardo Anion gap [Moles/Vol] 12.8 mmol/L Normal [facility] Comment on above: Performed By: #### A FPTET #### [facility] [address] [place] [address] Dr. Belkys Fajardo AST [Catalytic activity/Vol] 17 U/L Normal 15-37 [facility] Comment on above: Performed By: #### A FPTET #### [facility] [address] [place] [address] Dr. Belkys Fajardo Bilirubin [Mass/Vol] 0.3 mg/dL Normal 0.2-1.0 [facility] Comment on above: Performed By: #### A FPTET #### [facility] [address] [place] [address] Dr. Belkys Fajardo Calcium [Mass/Vol] 8.5 mg/dL Normal 8.5-10.1 [facility] Comment on above: Performed By: #### A FPTET #### [facility] [address] [address] [address] Belkys Fajardo Chloride [Moles/Vol] 103 mmol/L Normal 98-107 [facility] Comment on above: Performed By: #### A FPTET #### [facility] [address] [address] [address] Belkys Fajardo CO2 [Moles/Vol] 24.7 mmol/L Normal 21.0-32.0 [facility] Comment on above: Performed By: #### A FPTET #### [facility] [address] [address] [address] Belkys Fajardo Creatinine [Mass/Vol] 0.46 mg/dL Critically low 0.55-1.02 [facility] Comment on above: Performed By: #### A FPTET #### [facility] [address] [place] [address] Dr. Belkys Fajardo EGFR-AF GREEK >60 Normal >=60 [facility] Comment on above: Performed By: #### A FPTET #### [facility] [address] [place] [address] Dr. Belkys Fajardo EGFR-NON AF GREEK >60 Normal >=60 [facility] Comment on above: Performed By: #### A FPTET #### [facility] [address] [place] [address] Dr. eBlkys Fajardo Globulin (S) [Mass/Vol] 3.7 g/dL Normal [facility] Comment on above: Performed By: #### A FPTET #### [facility] [address] [address] [address] Belkys Fajardo Glucose [Mass/Vol] 84 mg/dL Normal 74-106 [facility] Comment on above: Performed By: #### A FPTET #### [facility] [address] [place] [address] Dr. Belkys Fajardo Potassium [Moles/Vol] 3.5 mmol/L Normal 3.5-5.1 [facility] Comment on above: Performed By: #### A FPTET #### [facility] [address] [address] [address] Belkys Fajardo Protein [Mass/Vol] 6.7 g/dL Normal 6.4-8.2 [facility] Comment on above: Performed By: #### A FPTET #### [facility] [address] [address] [address] Belkys Fajardo Sodium [Moles/Vol] 137 mmol/L Normal 136-145 [facility] Comment on above: Performed By: #### A FPTET #### [facility] [address] [address] [address] Belkys Fajardo Urea nitrogen [Mass/Vol] 7.0 mg/dL Normal 7.0-18.0 [facility] Comment on above: Performed By: #### A FPTET #### [facility] [address] [address] [address] Belkys Fajardo Urea nitrogen/Creatinine [Mass ratio] 15.2 mg/mg Normal [facility] Comment on above: Performed By: #### A FPTET #### [facility] [address] [address] [address] Belkys Fajardo TROPONIN, HIGH SENSITIVITYon 08-22-2021 HSTROP <4.0 Normal 4.0-51.3 [facility] Comment on above: Result Comment: CUT- OFF POINTS HAVE BEEN ESTABLISHED BASED ON THE FOURTH UNIVERSAL DEFINITIONS OF MYOCARDIAL INFARCTION. THE UPPER REFERENCE LIMIT (URL) OF TROPONIN, DEFINED THE 99TH PERCENTILE OF cTnI DISTRIBUTION IN A REFERENCE POPULATION, HAS BEEN CONFIRMED THE DECISION THRESHOLD FOR VT DIAGNOSIS. Performed By: #### A FPTET #### [facility] [address] [address] [address] Belkys Fajardo CHLAMYDIA/GONOCOCCUS DEVIN (SW AB/URINE/PAPon 08-21-2021 Chlamydia trachomatis, DEVIN Negative Normal Negative [facility] Comment on above: Performed By: #### C T/NGNA #### [facility] [address] [address] [address] Belkys Fajardo Neisseria gonorrhoeae, DEVIN Negative Normal Negative [facility] Comment on above: Performed By: #### C T/NGNA #### [facility] [address] [address] [address] Belkys Fajardo VAGINITIS/VAGINOSIS DNA PROB Gab 08-20-2021 Lani species Negative Normal Negative [facility] Comment on above: Performed By: #### A FPTET #### [facility] [address] [address] [address] Belkys Fajardo Gardnerella vaginalis Negative Normal Negative [facility] Comment on above: Performed By: #### A FPTET #### [facility] [address] [address] [address] Belkys Fajardo Trichomonas vaginalis Negative Normal Negative [facility] Comment on above: Performed By: #### A FPTET #### [facility] [address] [address] [address] Belkys Fajardo Vital Signs Date Time Vital Sign Value Performing Clinician Facility 07-11-2024 16:16-0400 Body mass index (BMI) [Ratio] 26.31 kg/m2 bepretty DO Work Phone: [facility] 07-11-2024 16:16-0400 Body weight 76.2 kg Cheyenne Deshaun DO Work Phone: [facility] 07-11-2024 16:16-0400 Diastolic blood pressure 74 mm[Hg] Cheyenne Deshaun DO Work Phone: [facility] 07-11-2024 16:16-0400 Systolic blood pressure 120 mm[Hg] Cheyenne Deshaun [employer] Work Phone: [facility] 01-11-2024 10:49-0400 Body height 172.72 cm [facility] 01-11-2024 10:49-0400 Body mass index (BMI) [Ratio] 26.9 kg/m2 [facility] 01-11-2024 10:49-0400 Body temperature 98.2 [degF] [facility] 01-11-2024 10:49-0400 Body weight 80.28 kg [facility] 01-11-2024 10:49-0400 Diastolic blood pressure 73 mm[Hg] [facility] 01-11-2024 10:49-0400 Heart rate 84 /min [facility] 01-11-2024 10:49-0400 Respiratory rate 18 /min [facility] 01-11-2024 10:49-0400 SaO2% (BldA) [Mass fraction] 97 % [facility] 01-11-2024 10:49-0400 Systolic blood pressure 111 mm[Hg] [facility] 12-20-2023 10:27-0400 Body mass index (BMI) [Ratio] 28.72 kg/m2 Cheyenne Deshaun DO Work Phone: [facility] 12-20-2023 10:27-0400 Body weight 83.19 kg Cheyenne Deshaun DO Work Phone: [facility] 12-20-2023 10:27-0400 Diastolic blood pressure 78 mm[Hg] Cheyenne Deshaun DO Work Phone: [facility] 12-20-2023 10:27-0400 Systolic blood pressure 116 mm[Hg] Cheyenne Deshaun DO Work Phone: [facility] 11-16-2023 11:43-0400 Body mass index (BMI) [Ratio] 29.88 kg/m2 Cheyenne Deshaun DO Work Phone: [facility] 11-16-2023 11:43-0400 Body weight 86.55 kg Cheyenne Deshaun DO Work Phone: [facility] 11-16-2023 11:43-0400 Diastolic blood pressure 60 mm[Hg] Cheyenne Deshaun DO Work Phone: [facility] 11-16-2023 11:43-0400 Systolic blood pressure 110 mm[Hg] Cheyenne Deshaun DO Work Phone: [facility] 09-20-2023 23:41-0400 Heart rate 94 /min Susanna William DO Work Phone: [facility] 09-20-2023 23:41-0400 SaO2% (BldA) [Mass fraction] 98 % Susanna William DO Work Phone: [employer] 09-20-2023 23:38-0400 Diastolic blood pressure 71 mm[Hg] Susanna William DO Work Phone: [employer] 09-20-2023 23:38-0400 Systolic blood pressure 125 mm[Hg] Susanna William DO Work Phone: [employer] 09-20-2023 21:18-0400 Body temperature 98.6 [degF] Susanna William DO Work Phone: [facility] [employer] 09-20-2023 21:18-0400 Respiratory rate 20 /min Susanna Yibal DO Work Phone: [facility] [employer] 09-20-2023 21:16-0400 Body height 172.7 cm Susanna William DO Work Phone: [facility] [employer] 09-20-2023 21:16-0400 Body mass index (BMI) [Ratio] 27.67 kg/m2 Susanna William DO Work Phone: [facility] [employer] 09-20-2023 21:16-0400 Body weight 82.56 kg Susanna Yibal DO Work Phone: [facility] [employer] 07-28-2022 10:15-0400 Body height 170.18 cm Nick Ball Other [employer] Other 07-28-2022 10:15-0400 Body mass index (BMI) [Ratio] 27.81 kg/m2 Nick Ball Other [employer] Other 07-28-2022 10:15-0400 Body weight 80.56 kg Nick Ball Other [employer] Other 07-28-2022 10:15-0400 Diastolic blood pressure 75 mm[Hg] Nick Leonardo Other [employer] Other 07-28-2022 10:15-0400 Systolic blood pressure 112 mm[Hg] Nick Leonardo Other [employer] Other 06-04-2022 17:00-0500 Body height 170.18 cm Cristal Guidry Other [employer] Other 06-04-2022 17:00-0500 Body mass index (BMI) [Ratio] 28.19 kg/m2 Cristal Guidry Other [employer] Other 06-04-2022 17:00-0500 Body temperature 97.4 [degF] Cristal Guidry Other [employer] Other 06-04-2022 17:00-0500 Body weight 81.65 kg Cristal Chao Other [employer] Other 06-04-2022 17:00-0500 Respiratory rate 18 /min Cristal Guidry Other [employer] Other 06-04-2022 17:00-0500 SaO2% (BldA) [Mass fraction] 98 % Cristal Guidry Other [employer] Other 09-06-2021 02:05-0400 Body weight 77.[address] CHEYENNE MEADE . [facility] Comment on above: Performed By: #### AFPTET #### [facility] [address] [place] [address] Dr. Belkys Fajardo Encounters Encounter Date Encounter Type Care Provider Facility Start: 07-11-2024 End: 07-11-2024 Patient encounter procedure Cheyenne Meade DO Work Phone: [facility] Start: 07-11-2024 End: 07-11-2024 Periodic preventive med est patient 18-39 yrs Cheyenne Deshaun DO Work Phone: [facility] Comment on above: Well woman exam with routine gynecological exam; Abnormal uterine bleeding (AUB) Start: 07-11-2024 End: 07-11-2024 Bamboo flowsheet Cheyenne Deshaun DO Work Phone: [facility] Start: 07-11-2024 End: 07-11-2024 Bamboo flowsheet Cheyenne Deshaun DO Work Phone: [facility] Start: 01-11-2024 End: 01-11-2024 ambulatory [facility] Work Phone: Start: 01-11-2024 End: 01-11-2024 Patient encounter procedure [facility] Work Phone: Start: 12-20-2023 End: 12-20-2023 ambulatory CHEYENNE DESHAUN Not Available Start: 12-20-2023 End: 12-20-2023 care visit Cheyenne Deshaun DO Work Phone: [facility] Comment on above: 6 weeks f ollow-up; Encounter for female control Start: 11-16-2023 End: 11-16-2023 Bamboo flowsheet Cheyenne Deshaun DO Work Phone: [facility] Start: 11-16-2023 End: 11-16-2023 Bamboo flowsheet Cheyenne Deshaun DO Work Phone: [facility] Start: 11-16-2023 End: 11-16-2023 ambulatory CHEYENNE DESHAUN Not Available Start: 11-16-2023 End: 11-16-2023 Postop follow up visit related to original px Cheyenne Dsehaun DO Work Phone: [facility] Comment on above: S/P section Start: 11-02-2023 End: 11-02-2023 ambulatory CHEYENNE DESHAUN Not Available Start: 10-26-2023 End: 10-26-2023 ambulatory VALERIE HARDENEY Not Available Start: 10-18-2023 End: 10-18-2023 ambulatory VALERIE HARDENEY Not Available Start: 10-05-2023 End: 10-05-2023 ambulatory HCEYENNE DESHAUN Not Available Start: 09-21-2023 End: 09-21-2023 ambulatory CHEYENNE DESHAUN Not Available Start: 09-20-2023 End: 09-21-2023 Emergency department patient visit [facility] Comment on above: Tachycardia (Primary Dx); POTS (postural orthostatic tachycardia syndrome) Start: 09-07-2023 End: 09-07-2023 ambulatory CHEYENNE DESHAUN Not Available Start: 08-24-2023 End: 08-24-2023 ambulatory CHEYENNE DESHAUN Not Available Start: 08-10-2023 End: 08-10-2023 ambulatory CHEYENNE DESHAUN Not Available Start: 07-28-2023 End: 07-30-2023 ambulatory [facility] Start: 07-26-2023 End: 07-26-2023 Emergency department patient visit [facility] Start: 07-25-2023 End: 07-27-2023 ambulatory [facility] Start: 07-13-2023 End: 07-13-2023 ambulatory CHEYENNE DESHAUN Not Available Start: 06-15-2023 End: 06-15-2023 ambulatory CHEYENNE DESHAUN Not Available Start: 05-16-2023 End: 05-16-2023 ambulatory CHEYENNE DESHAUN Not Available Start: 04-08-2023 End: 04-08-2023 ambulatory CHEYENNE DESHAUN Not Available Start: 07-28-2022 End: 07-28-2022 ambulatory Nick Leonardo Other [employer] Other Start: 07-28-2022 Office outpatient vi sit 15 minutes Nick Leonardo [facility] Start: 07-28-2022 Telephone encounter Nick Leonardo [facility] Start: 06-04-2022 End: 06-04-2022 ambulatory Cristal Guidry Other [employer] Other Start: 06-04-2022 Office outpatient ne w [...] 04-10-2021 Subsequent hospital visit by physician [facility] [employer] [employer] [facility] EKG Comment on above: Palpitations; Post-COVID chronic palpitations; Shortness of breath; Lightheaded; Dizziness Procedures Date Procedure Procedure Detail Performing Clinician Start: 07-11-2024 Urnls dip stick/tabl et rgnt non-auto w/o micrscp Cheyenne Meade DO Work Phone: Start: 09-20-2023 Ct thorax w/contrast material Susanna William DO Work Phone: Start: 09-20-2023 Ecg routine ecg w/le ast 12 lds w/i&r Susanna Adriana William DO Work Phone: Start: 09-20-2023 End: 09-20-2023 Comprehensive metabolic panel Susanna William DO Work Phone: Start: 01-23-2022 Repair Rectum, Open Approach DR CHEYENNE MEADE . Start: 01-23-2022 Delivery of Products of Conception, External Approach DR CHEYENNE MEADE . Start: 01-23-2022 Division of Female Perineum, External Approach DR CHEYENNE MEADE . Start: 01-23-2022 Drainage of Amniotic Fluid, Therapeutic from Products of Conception, Via Natural or Artificial Opening DR CHEYENNE MEADE . H/O: section S/P sectio n Cheyenne Meade DO Work Phone: Plan of Treatment Date Care Activity Detail Author Start: 2052 Respiratory Syncytia l Virus (RSV) or age 60 yrs+ (1 - 1-dose 60+ series) Respiratory Syncytial Virus (RSV) or age 60 yrs+ (1 - 1-dose 60+ series) [facility] Start: 07-11-2024 End: 07-11-2024 Patient encounter procedure 07/11/2024 4:00 PM EDT Office Visit [facility] [address] [place] [address] Cheyenne Meade DO [address] [place] [place] [address] [facility] Start: 12-20-2023 End: 12-20-2023 ambulatory 12/20/2023 10:10 AM EDT Visit [facility] [address] [place] [id number] Cheyenne Meade DO [address] [place], [place] [id number] [facility] Start: 10-31-2023 End: 10-31-2023 Patient encounter procedure 10/31/2023 1:20 PM EDT Office Visit [facility] [address] [phone] Yogi Marquez MD [address] [place] [id number] 8 week [facility] Comment on above: 8 week Start: 10-27-2023 Influenza vaccination Flu vacc ine (Season Ended) [facility] Start: 2022 Screening for malign ant neoplasm of cervix [facility] Start: 04-15-2021 End: 04-15-2021 Patient encounter procedure 04/15/2021 Office Visit Cardiology Yogi Marquez MD [address] [place] [id number] [facility] Start: 11-26-2020 Influenza vaccination Flu vaccine (# 1) [facility] Start: 10-08-2020 DTaP/Tdap/Td vaccine (7 - Td or Tdap) DTaP/Tdap/Td vaccine (7 - Td or Tdap) [facility] Start: 2013 Screening for malign ant neoplasm of cervix Pap smear [facility] Start: 2010 Hepatitis C screening Hepatitis C sc [facility] Start: 10-30-2007 HIV screening HIV screen [facility] Start: 2004 Depression Screen Depression Screen [facility] Start: 1997 COVID-19 Vaccine (1) COVID-19 Vaccin e (1) [facility] Start: 1993 Varicella vaccine (1 of 2 - 2-dose childhood series) Varicella vaccine (1 of 2 - 2-dose childhood series) [facility] Start: 05-01-1993 COVID-19 Vaccine (#1) COVID-19 Vacci ne (#1) [facility] Start: 1992 Hepatitis C screening Hepatitis C sc reen [facility] Ct thorax w/contrast material CT CHEST PULMONARY EMBOLISM W CONTRAST Imaging STAT 09/20/2023 9:55 PM EDT [employer] [facility] Cervical or vaginal smear or scraping study Pap Smear Pathology and Cytology Routine Well woman exam with routine gynecological exam Ordered: 07/11/2024 [facility] [employer] Work Phone: Comment on above: Ordered: 07/11/2024 EKG 12 Lead EKG 12 Lead ECG STAT 09/20/2023 9:21 PM EDT [employer] Human papilloma viru s DNA [Presence] in Unspecified specimen by Probe with amplification HPV DNA probe, amplified Microbiology Routine Well woman exam with routine gynecological exam Ordered: 07/11/2024 [facility] [employer] Comment on above: Ordered: 07/11/2024 Payers Date Payer Category Payer Private Health Insurance [employer] TH [id number] 2022 Unknown FRONTPATH FRONTP ATH [id number] 2022-Present [phone] [address] [id number] 2018 Unknown [id number] 1992 Unknown [id number] [id number] .2.593 1992 Unknown [id number] [id number] .2.593 1992 Unknown [id number] [id number] .2.593 1992 Unknown [id number] [id number] .2.593 1992 Unknown [id number] [id number] .2.593 1992 Unknown [id number] [id number] .2.593 1992 Unknown [id number] [id number] .2.593 1992 Unknown [id number] [id number] .2.593 1992 Unknown [id number] [id number] .2.593 1992 Unknown [id number] 2.16840.1.372858.3.579 .2.593 1990 Unknown [id number] 2.16840.1.891990.3.579 .2.593 1992 Unknown [id number] 2.16840.1.895822.3.579 .2.593 1992 Unknown [id number] 2.16840.1.232407.3.579 .2.593 1992 Unknown [id number] 2.16840.1.195428.3.579 .2.173 1992 Unknown [id number] 2.16840.1.070387.3.579 .2.173 1992 Unknown [id number] 2.16840.1.297910.3.579 .2.173 1992 Unknown [id number] 2.16840.1.641682.3.579 .2.173 1992 Unknown [id number] 2.16840.1.282958.3.579 .2.1258 1992 Unknown [id number] 2.16.840.1.103285.3.579 .2.1258 1992 Unknown [id number] 2.16.840.1.491187.3.579 .2.1258 1992 Unknown [id number] 2.16.840.1.980716.3.579 .2.1258 1992 Unknown [id number] 2.16.840.1.581848.3.579 .2.1258 1992 Unknown [id number] 2.16.840.1.589376.3.579 .2.1258 1992 Unknown [id number] 2.16.840.1.797085.3.579 .2.1258 1992 Unknown [id number] 2.16840.1.119176.3.579 .2.1258 1992 Unknown [id number] 2.16840.1.701077.3.579 .2.1258 1992 Unknown [id number] 2.16.840.1.924501.3.579 .2.1258 1992 Unknown [id number] 2.16840.1.598074.3.579 .2.1258 1992 Unknown [id number] 2.16840.1.614175.3.579 .2.1258 1992 Unknown [id number] 2.16840.1.181889.3.579 .2.1258 1992 Unknown [id number] 2.16840.1.437402.3.579 .2.1258 1959 Unknown [id number] Social History Date Type Detail Facility Start: 08-29-2014 End: 04-14-2023 Tobacco smoking status CAIS Never smoked tobacco [facility]: Start: 08-29-2014 End: 04-14-2023 Tobacco use and exposure Smokeless tobacco non-user [employer]: Start: 03-09-2021 End: 07-11-2024 Alcohol intake Current drinker of alcohol (finding) [facility]: Start: 03-09-2021 End: 07-13-2023 Alcohol intake [facility] Start: 08-29-2014 History SDOH Alcohol Comment occ. [facility] Phone: Start: 1990 Sex Assigned At Not on file [facility] Phone: Start: 04-14-2023 End: 07-13-2023 Sex Assigned At [employer] Start: 01-11-2024 Tobacco smoking status NHIS Ex-smoker (finding) [facility] Start: 1990 Sex Assigned At Female F [facility] Start: 04-14-2023 Alcohol Comment caffeine: occa sional soda [facility] Start: 02-24-2023 [facility] Read-Only, Retired: Physical Abuse Denies [employer] Clinical Notes 08-22-2021 to 07-11-2024 Wilma Betancur, TAM - 07/11/2024 4:00 PM Lindy Betancur LPN - 12/20/2023 10:10 AM Lindy Betancur, TAM - 11/16/2023 11:10 AM EDTDischarge InstructionsAttachments Note Date & Type Note Facility 07-11-2024 History of Presen t illness Narrative Reason for Appointment: Patient ID: Rossy Gutierrez is a 33 y.o. female who presents for Gynecologic Exam Patient presents today for Annual Exam. MEDICATIONS Current Outpatient Medications Medication Instructions metoprolol succinate XL (TOPROL-XL) 25 mg, Oral, Daily Vit-Fe Fumarate-FA ( Vitamins) 28-0.8 MG tablet 1 tablet, Oral, Daily Slynd 4 mg, Oral, Daily ALLERGIES No Known Allergies PROBLEMS Active Ambulatory Problems Diagnosis Date Noted No Active Ambulatory Problems Resolved Ambulatory Problems Diagnosis Date Noted No Resolved Ambulatory Problems Past Medical History: Diagnosis Date Anxiety attack (CMS/HCC) Broken arm 1997 Chronic constipation H/O bilateral breast implants Intermittent palpitations Near syncope Postural orthostatic tachycardia syndrome Sinus tachycardia Supraventricular tachycardia Varicella zoster Ventricular ectopy HISTORY PAST MEDICAL HISTORY SOCIAL HISTORY Past Medical History: Diagnosis Date Anxiety attack (CMS/HCC) Broken arm 1997 Chronic constipation in childhood H/O bilateral breast implants Intermittent palpitations Near syncope Postural orthostatic tachycardia syndrome Sinus tachycardia Supraventricular tachycardia Varicella zoster Ventricular ectopy Social History Tobacco Use Smoking status: Never Smokeless tobacco: Never Substance Use Topics Alcohol use: Yes Comment: caffeine: occasional soda Drug use: Never FAMILY HISTORY Family History Problem Relation Name Age of Onset Heart disease Mother arteriosclerotic Other (placenta previa) Mother Hyperlipidemia Mother Osteoporosis Mother Heart disease Father Heart disease Sister Heart disease Brother Heart disease Maternal Grandfather Diabetes Maternal Grandfather Heart disease Paternal Grandfather Diverticulosis Paternal Grandfather Ovarian cancer Other Maternal great aunt SURGICAL HISTORY Past Surgical History: Procedure Laterality Date FEMINIZING AUGMENTATION MAMMOPLASTY 2018 REVIEW OF SYSTEMS Review of Systems: Review of Systems Constitutional: Negative. HENT: Negative. Eyes: Negative. Respiratory: Negative. Cardiovascular: Negative. Gastrointestinal: Negative. Genitourinary: Negative. Musculoskeletal: Negative. Skin: Negative. Neurological: Negative. All other systems reviewed and are negative. Hematological: Negative. Endocrine: Negative. Allergic/Immunologic: Negative. OBJECTIVE Objective: Physical Exam Constitutional: Appearance: Normal appearance. She is well-developed. Genitourinary: Vulva normal. Breasts: Breasts are soft. Right: Normal. Left: Normal. Cardiovascular: Rate and Rhythm: Normal rate and regular rhythm. Pulmonary: Effort: Pulmonary effort is normal. Breath sounds: Normal breath sounds. Abdominal: General: Bowel sounds are normal. There is no distension. Palpations: Abdomen is soft. Tenderness: There is no abdominal tenderness. There is no guarding or rebound. Musculoskeletal: General: No swelling. Normal range of motion. Right lower leg: No edema. Left lower leg: No edema. Neurological: Mental Status: She is alert and oriented to person, place, and time. Skin: General: Skin is warm and dry. Psychiatric: Mood and Affect: Mood normal. Behavior: Behavior normal. Vitals and nursing note reviewed. Exam conducted with a vp of customer experience strategy present. Vitals: Estimated body mass index is 26.31 kg/m as calculated from the following: Height as of 03/09/22: 5' 7 . Weight as of this encounter: 168 lb. BP: 120/74 No LMP recorded. ASSESSMENT & PLAN ICD-10-CM 1. Well woman exam with routine gynecological exam Z01.419 Pap Smear HPV DNA probe, amplified POCT urinalysis dipstick manually resulted POCT , urine manually resulted 2. Abnormal uterine bleeding (AUB) N93.9 Drospirenone (Slynd) 4 MG tablet Annual Exam: Patient presents today for an annual exam. Patient states she is doing well and has no complaints. Pap was obtained without difficulty. Refills faxed to pharmacy for Slynd. Orders Placed This Encounter Procedures HPV DNA probe, amplified POCT urinalysis dipstick manually resulted POCT , urine manually resulted Follow Up: Patient is to return in one year for annual unless needed otherwise. Documented by Wilma Betancur LPN on behalf of: Cheyenne Meade DO documented in this encounter [facility] 12-20-2023 History of Presen t illness Narrative Reason for Appointment: Patient ID: Rossy Gutierrez is a 33 y.o. female who presents for Care Patient presents today for Post Follow Up appointment. MEDICATIONS Current Outpatient Medications Medication Instructions metoprolol succinate XL (TOPROL-XL) 25 mg, Oral, Daily Vit-Fe Fumarate-FA ( Vitamins) 28-0.8 MG tablet 1 tablet, Oral, Daily ALLERGIES No Known Allergies PROBLEMS Active Ambulatory Problems Diagnosis Date Noted No Active Ambulatory Problems Resolved Ambulatory Problems Diagnosis Date Noted No Resolved Ambulatory Problems Past Medical History: Diagnosis Date Anxiety attack (CMS/HCC) Broken arm 1997 Chronic constipation H/O bilateral breast implants Intermittent palpitations Near syncope Postural orthostatic tachycardia syndrome Sinus tachycardia Supraventricular tachycardia (CMS/HCC) Varicella zoster Ventricular ectopy HISTORY PAST MEDICAL HISTORY SOCIAL HISTORY Past Medical History: Diagnosis Date Anxiety attack (CMS/HCC) Broken arm 1997 Chronic constipation in childhood H/O bilateral breast implants Intermittent palpitations Near syncope Postural orthostatic tachycardia syndrome Sinus tachycardia Supraventricular tachycardia (CMS/HCC) Varicella zoster Ventricular ectopy Social History Tobacco Use Smoking status: Never Smokeless tobacco: Never Substance Use Topics Alcohol use: Yes Comment: caffeine: occasional soda Drug use: Never FAMILY HISTORY Family History Problem Relation Name Age of Onset Heart disease Mother arteriosclerotic Other (placenta previa) Mother Hyperlipidemia Mother Osteoporosis Mother Heart disease Father Heart disease Sister Heart disease Brother Heart disease Maternal Grandfather Diabetes Maternal Grandfather Heart disease Paternal Grandfather Diverticulosis Paternal Grandfather Ovarian cancer Other Maternal great aunt SURGICAL HISTORY Past Surgical History: Procedure Laterality Date FEMINIZING AUGMENTATION MAMMOPLASTY 2018 REVIEW OF SYSTEMS Review of Systems: Review of Systems Constitutional: Negative. HENT: Negative. Eyes: Negative. Respiratory: Negative. Cardiovascular: Negative. Gastrointestinal: Negative. Genitourinary: Negative. Musculoskeletal: Negative. Skin: Negative. Neurological: Negative. All other systems reviewed and are negative. Hematological: Negative. Endocrine: Negative. Allergic/Immunologic: Negative. OBJECTIVE Objective: Physical Exam Constitutional: Appearance: Normal appearance. She is well-developed. Cardiovascular: Rate and Rhythm: Normal rate and regular rhythm. Pulmonary: Effort: Pulmonary effort is normal. Breath sounds: Normal breath sounds. Abdominal: General: Bowel sounds are normal. There is no distension. Palpations: Abdomen is soft. Tenderness: There is no abdominal tenderness. There is no guarding or rebound. Musculoskeletal: General: No swelling. Normal range of motion. Right lower leg: No edema. Left lower leg: No edema. Neurological: Mental Status: She is alert and oriented to person, place, and time. Skin: General: Skin is warm and dry. Psychiatric: Mood and Affect: Mood normal. Behavior: Behavior normal. Vitals and nursing note reviewed. Exam conducted with a vp of customer experience strategy present. Vitals: Estimated body mass index is 28.72 kg/m as calculated from the following: Height as of 03/09/22: 5' 7 . Weight as of this encounter: 183 lb 6.4 oz. BP: 116/78 Patient's last menstrual period was 02/10/2023. ASSESSMENT & PLAN ICD-10-CM 1. 6 weeks follow-up Z39.2 Post Follow Up: Patient is doing well but has complaints of no feeling below umbilicus to section scar. Patient presents today for 6 week visit. Patient is s/p delivery. Patient states depression but denies suicidal and homicidal ideations. All options were discussed with the patient regarding control and patient desires oral contraception . Follow Up: Patient is to return for annual unless needed otherwise. Documented by Wilma Betancur LPN on behalf of: Cheyenne Meade DO documented in this encounter [facility] 11-16-2023 History of Presen t illness Narrative Reason for Appointment: Patient ID: Rossy Gutierrez is a 33 y.o. female who presents for 1 week s/p c section Patient presents today for 1 Week Post Op Follow Up appointment. MEDICATIONS Current Outpatient Medications Medication Instructions ibuprofen 800 mg, Oral, Every 8 hours metoprolol succinate XL (TOPROL-XL) 25 mg, Oral, Daily oxyCODONE-acetaminophen (Percocet) 5-325 MG tablet 1 tablet, Oral, Every 4 hours PRN Ugzmnuqs-Oxw-Be-FA (, w/Iron & FA,) 27-0.8 MG tablet 1 each, Oral, Every 24 hours ALLERGIES No Known Allergies PROBLEMS Active Ambulatory Problems Diagnosis Date Noted No Active Ambulatory Problems Resolved Ambulatory Problems Diagnosis Date Noted No Resolved Ambulatory Problems Past Medical History: Diagnosis Date Anxiety attack (CMS/HCC) Broken arm 1997 Chronic constipation H/O bilateral breast implants Intermittent palpitations Near syncope Postural orthostatic tachycardia syndrome Sinus tachycardia Supraventricular tachycardia (CMS/HCC) Varicella zoster Ventricular ectopy HISTORY PAST MEDICAL HISTORY SOCIAL HISTORY Past Medical History: Diagnosis Date Anxiety attack (CMS/HCC) Broken arm 1997 Chronic constipation in childhood H/O bilateral breast implants Intermittent palpitations Near syncope Postural orthostatic tachycardia syndrome Sinus tachycardia Supraventricular tachycardia (CMS/HCC) Varicella zoster Ventricular ectopy Social History Tobacco Use Smoking status: Never Smokeless tobacco: Never Substance Use Topics Alcohol use: Yes Comment: caffeine: occasional soda Drug use: Never FAMILY HISTORY Family History Problem Relation Name Age of Onset Heart disease Mother arteriosclerotic Other (placenta previa) Mother Hyperlipidemia Mother Osteoporosis Mother Heart disease Father Heart disease Sister Heart disease Brother Heart disease Maternal Grandfather Diabetes Maternal Grandfather Heart disease Paternal Grandfather Diverticulosis Paternal Grandfather Ovarian cancer Other Maternal great aunt SURGICAL HISTORY Past Surgical History: Procedure Laterality Date FEMINIZING AUGMENTATION MAMMOPLASTY 2018 REVIEW OF SYSTEMS Review of Systems: Review of Systems Constitutional: Negative. HENT: Negative. Eyes: Negative. Respiratory: Negative. Cardiovascular: Negative. Gastrointestinal: Negative. Genitourinary: Negative. Musculoskeletal: Negative. Skin: Negative. Neurological: Negative. All other systems reviewed and are negative. Hematological: Negative. Endocrine: Negative. Allergic/Immunologic: Negative. OBJECTIVE Objective: Physical Exam Constitutional: Appearance: Normal appearance. She is well-developed. Cardiovascular: Rate and Rhythm: Normal rate and regular rhythm. Pulmonary: Effort: Pulmonary effort is normal. Breath sounds: Normal breath sounds. Abdominal: General: Bowel sounds are normal. There is no distension. Palpations: Abdomen is soft. Tenderness: There is no abdominal tenderness. There is no guarding or rebound. Musculoskeletal: General: No swelling. Normal range of motion. Right lower leg: No edema. Left lower leg: No edema. Neurological: Mental Status: She is alert and oriented to person, place, and time. Skin: General: Skin is warm and dry. Psychiatric: Mood and Affect: Mood normal. Behavior: Behavior normal. Vitals and nursing note reviewed. Exam conducted with a vp of customer experience strategy present. Vitals: Estimated body mass index is 29.88 kg/m as calculated from the following: Height as of 22: 5' 7 . Weight as of this encounter: 190 lb 12.8 oz. BP: 110/60 Patient's last menstrual period was 02/10/2023. ASSESSMENT & PLAN ICD-10-CM 1. S/P section Z98.891 Patient presents today for a one week postop section check. Patient is doing well with minor complaints of pain. Incision has been noted as healing well with no signs and symptoms of infection. Follow Up: Patient is to return in 5 weeks for 6 week evaluation. Documented by Wilma Betancur LPN on behalf of: Cheyenne Meade DO documented in this encounter [facility] 09-21-2023 [facility] Discharg e instructions Susanna William DO - 09/21/2023 12:24 AM EDT Continue to drink plenty of fluids. Follow-up with your doctor in the next 2 to 3 days. Return if you have any worsening symptoms. The following attachments cannot be sent through Care Everywhere.POTS (Postural Orthostatic Tachycardia Syndrome): General Info (Yi)documented in this encounter [facility] 07-28-2022 Evaluation note Encounter Date Diagnosis Assessment Notes July, Strain of neck muscle, initial encounter (ICD-10 - S16.1XXA) ROM exercises, heat/ice and Tylenol Hold Motrin and trial Prednisone July, Occipital lymphadenopathy (ICD-10 - R59.0) Monitor for now. Soft and tender indicate inflammatory in character, should resolve July, Sebaceous cyst (ICD-10 - L72.3) Monitor for now may not need treatment [employer] Other 03-10-2023 Evaluation note* Encounter Date Diagnosis Assessment Notes Treatment Notes Treatment Clinical Notes May, Sore throat (ICD-10 - J02.9) [...] other viral communicable diseases (ICD-10 - Z20.828) [employer] Other 2022 NoteOPERATIVE NOTE OPERATION DATE: 02/18/2022 PROCEDURE: Repair of fourth degree perineal laceration. PREOPERATIVE DIAGNOSIS: Fourth degree perineal laceration. POSTOPERATIVE DIAGNOSIS: Fourth degree perineal laceration. ANESTHESIA: Epidural SURGEON: Cheyenne Meade D.O. DIRECTOR PUBLIC POLICY: BOBO Cole URINE OUTPUT: Yellow and clear. [...] patient was taken to recovery in stable condition.[id number] NoteOP Note OPERATION DATE: 01/23/2022 PROCEDURE: Repair of fourth degree perineal laceration. PREOPERATIVE DIAGNOSIS: Fourth degree perineal laceration. POSTOPERATIVE DIAGNOSIS: Fourth degree perineal laceration. ANESTHESIA: Epidural SURGEON: Cheyenne Meade D.O. DIRECTOR PUBLIC POLICY: BOBO Cole URINE OUTPUT: Yellow and clear. [...] patient was taken to recovery in stable condition.[id number] NoteOPERATIVE NOTE OPERATION DATE: 02/10/2022 PROCEDURE: Repair of fourth degree laceration. PREOPERATIVE DIAGNOSIS: Fourth degree laceration. POSTOPERATIVE DIAGNOSIS: Fourth degree laceration. ANESTHESIA: General. SURGEON: Cheyenne Meade D.O. DIRECTOR PUBLIC POLICY: BOBO URINE OUTPUT: Yellow and clear. BLOOD [...] sheath and this was done in a kvwyrr-rt-[id number] fashion. This was performed using 3-0 Vicryl. [...] correct x2. The patient tolerated this procedure well.[facility] 08-22-2021 NotePROCEDURE: XR CHEST 1 V, 08/22/2021 6:50 AM [...] Electronically authenticated by: DERIC VO Date: 2021-08-22 07:30[facility] Diagnosis Palpitations Post-COVID chronic palpitations Shortness of breath Lightheaded Dizziness and giddiness Dizziness Dizziness and giddiness documented in this encounter [employer] Work Phone: evaluation noteNo [facility] [employer] Other Evaluation note* Diagnosis Onset Date Resolution Status Viral URI with cough acute Contact with and (suspected) exposure to covid-19 noneactive [facility] Work Phone: Evaluation note* Diagnosis S/P section Other postprocedural status documented in this encounter [facility]* Diagnosis 6 weeks follow-up Encounter for female control documented in this encounter [facility] Healthcare[facility] note* Diagnosis Tachycardia- Primary Tachycardia, unspecified POTS (postural orthostatic tachycardia syndrome) Tachycardia, unspecified documented in this encounter [facility] note* Diagnosis Well woman exam with routine gynecological exam Routine gynecological examination Abnormal uterine bleeding (AUB) [facility] N[facility] - Reported* Type Description Date Medical History POTS Medical History sinus tachycardia Surgical History 4th degree vaginal tear after g iving 2021 [employer] Other History general Narrative - Reported* Type Description Date Medical History POTS Medical History sinus tachycardia Medical History Anxiety, generalized Surgical History 4th degree vaginal tear after g iving 2021 Surgical History MASTOPEXY OF BOTH BR EASTS WITH INSERTION OF SALINE IMPLANTS Hospitalization History SEE SURGICAL HX [employer] Other Reason for Referral Specialty Diagnoses / Procedures Referred By Willy smith Referred To Contact Cardiology Diagnoses Palpitations Post-COVID chronic palpitations Shortness of breath Lightheaded Dizziness Procedures Holter Monitor 24 Hour Yogi Marquez MD [address] [place] [phone] Referral ID Status Reason Start Date Expiration Date Visits Re quested Visits Authorized [id number] Open 03/09/2021 03/09/2022 1 1 Advance Directives Documents on File Type Date Recorded 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 ACP-Advance Directive ACP-Power of Manager Qa Advance Directive Response Recorded Date/ Time Advance Directives No July 30, 2023 10:42am Summary Purpose Family History Relationship Condition Age at Onset Recorded Date/T pati mother Heart disease Unknown father Supraventricular tachycardia Unknown Chief Complaint and Reason for Visit Chief Complaint Sinus congestion, so re throat Reason for Visit Viral URI with cough Contact with and (suspected) exposure to covid-19 Additional Source Comments Reason for Visit (unrecogniz ed section and content) Specialty Diagnoses / Procedures Referred By Willy smith Referred To Contact Cardiology Diagnoses Palpitations Post-COVID chronic palpitations Shortness of breath Lightheaded Dizziness Procedures Holter Monitor 24 Hour Yogi Marquez MD [address] [place] [id number] Referral ID Status Reason Start Date Expiration Date Visits Re quested Visits Authorized [id number] Open 03/09/2021 03/09/2022 1 1 Reason Comments 1 week s/p c section Reason Comments Care Reason Comments Shortness of Breath For the past three h ours. Hx of POTS, sent by [facility] for rule out PE. Patient is appox. 32 weeks Tachycardia Patient reports inte rmittent high heart rates for the past three hours Reason Comments Gynecologic Exam Care Teams (unrecognized sec tion and content) Rn Gyn Relationship Specialty Start Date End Date Nick Leonardo DO [address] [place] [address] PCP - General Internal Medicine 03/09/21 Team Status: Active Member Role Status Dates Lis Cristina MD Primary Care Provider Active Team Status: Inactive Member Role Status Dates Gini Alvarado APRN Attending Provider Active S tart: January 11, 2024 End: January 11, 2024 Lis Cristina MD Primary Care Provider Active Start: January 11, 2024 End: January 11, 2024 Rn Gyn Relationship Specialty Start Date End Date Lis Cristina MD [address] [place] [address] PCP - General Family Medicine 07/25/23 INFORMATION SOURCE (unrecogn ized section and content) DATE CREATED AUTHOR 07/01/2022 [facility] DATE CREATED AUTHOR AUTHOR'S ORGANIZ ATION 09/22/2023 [facility] DATE CREATED AUTHOR AUTHOR'S ORGANIZ ATION 12/11/2023 [facility] DATE CREATED AUTHOR AUTHOR'S ORGANIZ ATION 12/22/2023 [facility] EPIC Goals (unrecognized section and content) Goals may be documented in a n alternate section PRN Active and Recently Administ ered Medications (unrecognized section and content) Medication Order 09/19/2023 09/20/2023 09/21/2023 iopamidol (ISOVUE-370) 76 % injection 75 mL (COMPLETED) 75 mL, IntraVENous, IMG ONCE PRN, 1 dose, Starting on Tue09/20/23 at 2155, Until Discontinued, Other 2231 (Given - Provider: Zoila Mir) FOR RECORDS PERTAINING TO PATIENTS WHO ARE [...] BE BASED ON THE PRIMARY CLINICAL RECORDS. [facility] [employer] [facility]. provides no warranty or guarantee of the accuracy or completeness of information in this document.
[2024-07-16 14:08] LABS: Age Gdln ACOG Testing Note (.); HPV Aptima Negative (Negative); IGP, Aptima HPV, rfx 16/18,45 Note (.)
== END 2024-07-11 20:38 | disposition home or self-care (01) ==
LOC: LAB 20:37
PROVIDERS: PCP Family Medicine; Visit Provider Obstetrics & Gynecology
DX: Z01.419 Encounter for gynecological examination (general) (routine) without abnormal findings (principal)
CPT/HCPCS: 87624; 88175

== ENCOUNTER 2024-12-31 13:43 | Emergency (ER) | payer OTHER, SELFPAY ==
--- OUTSIDE RECORDS SUMMARY | 2024-11-16 06:15 | XMS_ITS ---
Author Organization [facility] in [place] Address [address] [place] [address] Care Team Providers Care Rubber Washer Name Role Phone Opal Cristina Primary Care Provider [phone] REASON FOR VISIT -1 Month Follow Up- Encounters Encounter Location Date Provider Diagnosis [place] [address] [place] [address] 11/16/2024 Opal Cristina Plan Of Treatment No Information Progress Notes * Rossy GUTIERREZDOB: [birth year] (34 yo F)Acc No.[id number]:11/16/2024 UNLOCKED PROGRESS NOTE Established Patient: Rossy ALEX Provider: Parish Cristina MD :1990 A ge:34 Y S ex:Female Date:11/16/2024 Address:[address] [place], [place] [id number] Subjective: * Chief Complaints: * 1 . -1 Month Follow Up-. * Medical History: Objective: * Vitals: Assessment: Plan: * Treatment: * * Electronic signature of Leandro Cristina MD, [id number] on 12/31/2024 at 02:04 PM EDT Sign off status: Pending Visit Status: C ANC (Cancelled) * Provider: Parish Cristina MD Date: 0 11/16/2024 Generated for Printi ng/Faxing/eTransmitting on: 1 02:04 PM EDT
--- OUTSIDE RECORDS SUMMARY | 2024-12-20 14:00 | XMS_ITS | Encounter Summary ---
Author Organization [facility] Address [address] [facility] [place] [address] Care Team Providers Care Painter Ordnance Name Role Phone Unavailable Primary Care Provider Unavailabl e Encounter Details Date Type Department Care Team (Latest Contact Info) Description 12/20/2024 2:00 PM EDT Ancillary Procedure [facility] [address] Twin gestation in first trimester, unspecified multiple gestation type ([facility]) Social History Tobacco Use Types Packs/Day Years Used Date Smoking Tobacco: Never Smokeless Tobacco: Never Alcohol Use Standard Drinks/Week Comments Yes 0 (1 standard drink = 0.6 oz pur e alcohol) caffeine: occasional soda Estimated Date of Delivery Comme nts Yes 07/24/2025 Based on last me nstrual period of 10/17/2024 Sex and Gender Information Value Date Recorded Sex Assigned at Not on file Legal Sex Female 7:01 PM EDT Gender Identity Not on file Sexual Orientation Not on file documented as of this encounter Plan of Treatment Upcoming Encounters Date Type Department Care Team (Late st Contact Info) Description 01/16/2025 3:00 PM EDT Routine NOMNicole VITALE [facility] [place] [address] Jordan Meade DO [address], [place] [address] documented as of this encounter Procedures Procedure Name Priority Date/Time Associated Diagnosis Comments US OB TRANSVAGINAL Routine 12/20/2024 2: 30 PM EDT Twin gestation in first trimester, unspecified multiple gestation type ([facility]) documented in this encounter Results * US OB transvaginal (12/20/2024 2:30 PM EDT) Anatomical Region Laterality Modality Body Ultrasound 12/20/2024 2:39 PM EDT Impressions 12/20/2024 3:05 PM EDT Findings consistent with a live intrauterine gestation, current sonographic age of 8 weeks and 4 days resulting in an estimated date of delivery of July 28, 2025. TRANSCRIBED BY: ELECTRONICALLY SIGNED BY: Kalpesh Louis MD Narrative 12/20/2024 3:05 PM EDT FINDINGS: A single intrauterine gestational sac is present. No subchorionic hemorrhage. A single pole is present. Normal heart rate at 173 beats per minute. Yolk sac also is seen. Current sonographic age is 8 weeks and 4 days based on the crown-rump length measurement of 2.0 cm. Based on this age, current estimated date of delivery is July 28, 2025. No pelvic fluid or adnexal mass present. Cervical length is 5.0 cm. Procedure Note Kalpesh Louis MD - 12/20/2024 FINDINGS: A single intrauterine gestational sac is present. No subchorionichemorrhage. A single pole is present. Normal heart rate at173 beats per minute. Yolk sac also is seen. Current sonographic age is8 weeks and 4 days based on the crown-rump length measurement of 2.0 cm.Based on this age, current estimated date of delivery is July 28, 2025.No pelvic fluid or adnexal mass present. Cervical length is 5.0 cm. IMPRESSION: Findings consistent with a live intrauterine gestation, currentsonographic age of 8 weeks and 4 days resulting in an estimated date ofdelivery of July 28, 2025. TRANSCRIBED BY: ELECTRONICALLY SIGNED BY: Kalpesh Louis MD us Jordan Meade DO [facility] OB US PROCEDURES Final Resul t documented in this encounter Visit Diagnoses Diagnosis Twin gestation in first trimester, unspecified multiple gestation type ([facility]HS-HCC) documented in this encounter
--- OUTSIDE RECORDS SUMMARY | 2024-12-20 14:30 | XMS_ITS | Encounter Summary ---
Author Organization [facility] Address [address] [facility] [place] [address] Care Team Providers Care Ad Operations Coordinator Name Role Phone Unavailable Primary Care Provider Unavailabl e Reason for Visit * Reason Comments Amenorrhea Encounter Details Date Type Department Care Team (Late st Contact Info) Description 12/20/2024 2:30 PM EDT Initial [facility] [address] [place] [address] [place] [phone] GA: 9w1d Social History Tobacco Use Types Packs/Day Years [...] on file documented as of this encounter Last Filed Vital Signs Vital Sign Reading Time Taken Comments Blood Pressure 118/72 12/20/2024 3:01 PM EDT Pulse - - Temperature - - Respiratory Rate - - Oxygen Saturation - - Inhaled Oxygen Concentration - - Weight 73.9 kg (163 lb) 12/20/2024 3:01 PM EDT Height - - Body Mass Index 25.53 03/09/2022 12:00 PM EST documented in this encounter Progress Notes * Huma Young MA - 12/20/2024 2:30 PM EDT Reason for Appointment: Patient ID: Rossy Gutierrez is a 34 y.o. female who presents for Amenorrhea Patient presents today for a Nurse OB Intake appointment. Patient is 9w1d with a Estimated Date of Delivery: 07/24/25 OB History Para Term AB Living 3 2 2 2 SAB IAB Ectopic Multiple Live Births 2 # Outcome Date GA Lbr Anjel/2nd Weight Sex Type Anes PTL Lv 3 Current 2 Term 11/10/23 39w0d 8 lb 5 oz F CS-LTranv PETER 1 Term 01/23/22 8 lb 8 oz M Vag-Spont PETER Current Medications: has a current medication list which includes the following prescription(s): metoprolol succinate xland ondansetron odt. Medical History: Active Ambulatory Problems Diagnosis Date Noted No Active Ambulatory Problems Resolved Ambulatory Problems Diagnosis Date Noted No Resolved Ambulatory Problems Past Medical History: Diagnosis Date Anxiety attack Broken arm 1997 Chronic constipation H/O bilateral breast implants Intermittent palpitations Near syncope Postural orthostatic tachycardia syndrome Sinus tachycardia Supraventricular tachycardia (HCC) Varicella zoster Ventricular ectopy Family History Problem Relation Name Age of Onset Heart disease Mother arteriosclerotic Other (placenta previa) Mother Hyperlipidemia Mother Osteoporosis Mother Heart disease Father Heart disease Sister Heart disease Brother Heart disease Maternal Grandfather Diabetes Maternal Grandfather Heart disease Paternal Grandfather Diverticulosis Paternal Grandfather Ovarian cancer Other Maternal great aunt Social History Tobacco Use Smoking status: Never Smokeless tobacco: Never Substance Use Topics Alcohol use: Yes Comment: caffeine: occasional soda Drug use: Never Past Surgical History: Procedure Laterality Date FEMINIZING AUGMENTATION MAMMOPLASTY 2018 No Known Allergies Vitals: Estimated body mass index is 25.53 kg/m?? as calculated from the following: Height as of 03/09/22: 5' 7 . Weight as of this encounter: 163 lb. BP: 118/72 Patient's last menstrual period was 10/17/2024. Assessment/Plan Diagnoses and all orders for this visit: Twin gestation in first trimester, unspecified multiple gestation type (HHS-HCC) - OB transvaginal; Future Amenorrhea 9 weeks gestation of (HHS-HCC) First trimester (HHS-HCC) Missed menses - Type and screen; Future - ABO/Rh; Future - CBC and differential - Hemoglobin A1c - RPR - Rubella antibody, IgG - Hepatitis B surface antigen - Hepatitis C antibody - HIV-1 and HIV-2 antibodies - Urine culture - POCT , urine manually resulted - POCT urinalysis dipstick manually resulted , unspecified gestational age ([facility]HS-HCC) - Type and screen; Future - ABO/Rh; Future - CBC and differential - Hemoglobin A1c - RPR - Rubella antibody, IgG - Hepatitis B surface antigen - Hepatitis C antibody - HIV-1 and HIV-2 antibodies - Rapid drug screen, urine; Future Encounter for supervision of normal first in first trimester ([facility]HS-HCC) - Rapid drug screen, urine; Future Nurse Note: Pt was given Anselmo billion to one was advised to take both labs and unity to [facility]. PVU. Follow Up: Patient is to have labs drawn at directed and return to office for initial OB appointment with provider. Patient may call office as needed with any concerns or questions. Nurse Visit Completed by: Huma Young MA documented in this encounter Plan of Treatment Upcoming Encounters Date Type Department Care Team (Late st Contact Info) Description 01/16/2025 3:00 PM EDT Routine [facility]BG[facility] [address] [facility] [place] [phone] Jordan Meade DO [address] [facility] [place] [address] Scheduled Orders Name Type Priority Associated Diagnoses Orde r Schedule Type and screen Lab Routine Missed menses , unspecified gestational age ([facility]HS-HCC) Expected: 12/20/2024 (Approximate), Expires: 12/20/2025 ABO/Rh Lab Routine Missed menses , unspecified gestational age ([facility]HS-HCC) Expected: 12/20/2024 (Approximate), Expires: 12/20/2025 CBC and differential Lab Routine Missed menses , unspecified gestational age ([facility]HS-HCC) Ordered: 12/20/2024 Hemoglobin A1c Lab Routine Missed menses , unspecified gestational age (HHS-HCC) Ordered: 12/20/2024 RPR Lab Routine Missed menses , unspecified gestational age ([facility]HS-HCC) Ordered: 12/20/2024 Rubella antibody, IgG Lab Routine Missed menses , unspecified gestational age ([facility]) Ordered: 12/20/2024 Hepatitis B surface antigen Lab Routine Missed menses , unspecified gestational age ([facility]) Ordered: 12/20/2024 Hepatitis C antibody Lab Routine Missed menses , unspecified gestational age ([facility]) Ordered: 12/20/2024 HIV-1 and HIV-2 antibodies Lab Routine Missed menses , unspecified gestational age ([facility]) Ordered: 12/20/2024 Urine culture Microbiology Routine Missed menses Ordered: 12/20/2024 Rapid drug screen, urine Lab Routine , unspecified gestational age ([facility]) Encounter for supervision of normal first in first trimester ([facility]) Expected: 12/20/2024 (Approximate), Expires: 12/20/2025 documented as of this encounter Procedures Procedure Name Priority Date/Time Associated Diagnosis Comments POCT , URINE Routine 12/20/2024 3:06 PM EDT Missed menses POCT URINALYSIS DIPSTICK Routine 12/20/2024 3:06 PM EDT Missed menses documented in this encounter Results * (ABNORMAL) POCT urinalysis dipstick manually resulted (12/20/2024 3:06 PM EDT) Color, UA Yellow Clarity, UA Clear Glucose, UA Negative Negative - 1999(110) ++++ mg/dL Bilirubin, UA Negative Negative - 4(70) +++ mg/dL Ketones, UA Negative Negative - 160(16) ++++ mg/dL Spec Grav, UA 1.025 1 - 1.03 Blood, UA Negative Negative - 50 Drake/mcL pH, UA 6.0 5 - 9 Protein, UA Negative Negative - 1999(20) ++++ mg/dL Urobilinogen, UA 1.0 0.2 - 12 mg/dL Leukocytes, UA 2+ Negative - 500+++ Dasia/mcL Nitrite, UA Negative Negative - Positive Urine 12/20/2024 3:06 PM EDT Jordan Deshaun DO POINT OF CARE TEST ENTER/EDIT OR DERABLES Final Result * (ABNORMAL) POCT , urine manually resulted (12/20/2024 3:06 PM EDT) Preg Test, Ur Positive Negative Urine 12/20/2024 3:06 PM EDT Jordan Deshaun DO POINT OF CARE TEST ENTER/EDIT OR DERABLES Final Result * US OB transvaginal (12/20/2024 2:30 PM [...] Kalpesh Louis MD us Jordan Meade DO [facility] OB US PROCEDURES Final Resul t documented in this encounter Visit Diagnoses Diagnosis Twin gestation in first trimester, unspecified multiple gestation type ([facility]) Twin gestation in first trimester, unspecified multiple gestation type ([facility]) Amenorrhea Absence of menstruation 9 weeks gestation of ([facility]) First trimester ([facility]) state, incidental Missed menses , unspecified gestational age ([facility]) Encounter for supervision of normal first in first trimester ([facility]) documented in this encounter
[2024-12-31] VITALS (23 sets, daily range): BP systolic 90–117; BP diastolic 50–78; PULSE 82–102; TEMP 36.6; O2SAT 99; BMI 24.3
--- OUTSIDE RECORDS SUMMARY | 2024-12-31 14:04 | XMS_ITS | Encounter Summary ---
Author Organization [facility] Address [address] [facility] [place] [address] Care Team Providers Care Cytogenetics Laboratory Manager Name Role Phone Unavailable Primary Care Provider Unavailabl e Encounter Details Date Type Department Care Team (Late Contact Info) Description 07/19/2024 Orders Only CEFERINO VITALE [address] [place] [address] [place] [phone] Huma Young MA [address] [facility] [place] [address] Social History Tobacco Use Types Packs/Day Years Used Date Smoking Tobacco: Never Smokeless Tobacco: Never Alcohol Use Standard Drinks/Week Comments Yes 0 (1 standard drink = 0.6 oz pur e alcohol) caffeine: occasional soda Comments Unknown Sex and Gender Information Value Date Recorded Sex Assigned at Not on file Legal Sex Female 7:01 PM EDT Gender Identity Not on file Sexual Orientation Not on file documented as of this encounter Plan of Treatment Upcoming Encounters Date Type Department Care Team (Late st Contact Info) Description 01/16/2025 3:00 PM EDT Routine N[facility]S Dexter VITALE [address] [place] [phone] Jordan Meade DO [address] [place], [place] [phone] documented as of this encounter Procedures Procedure Name Priority Date/Time Associated Diagnosis Comments PAP SMEAR Routine 07/11/2024 12:00 AM EDT documented in this encounter Results * Pap Smear (07/11/2024 12:00 AM EDT) Swab Cervical swab / Unknown us Jordan Meade DO LAB CYTOLOGY ORDERABLES Final Re sult EXTERNAL LAB documented in this encounter Visit Diagnoses Not on filedocumented in this encounter
--- OUTSIDE RECORDS SUMMARY | 2024-12-31 14:04 | XMS_ITS | Encounter Summary ---
Author Organization [facility] Address [address] [facility] [place] [address] Care Team Providers Care Glass Technologist Name Role Phone Unavailable Primary Care Provider Unavailabl e Encounter Details Date Type Department Care Team (Late st Contact Info) Description 10/31/2023 Abstract NOMNicole VITALE [address] [place] [address] [place] [phone] Jordan Meade DO [address], [place] [address] Social History Tobacco Use Types Packs/Day Years Used Date Smoking Tobacco: Never Smokeless Tobacco: Never Alcohol Use Standard Drinks/Week Comments Yes 0 (1 standard drink = 0.6 oz pur e alcohol) caffeine: occasional soda Comments Yes Sex and Gender Information Value Date Recorded Sex Assigned at Not on file Legal Sex Female 7:01 PM EDT Gender Identity Not on file Sexual Orientation Not on file documented as of this encounter Plan of Treatment Upcoming Encounters Date Type Department Care Team (Late st Contact Info) Description 01/16/2025 3:00 PM EDT Routine CEFERINO VITALE [facility] [place] [phone] Jordan Meade DO [address], [facility] documented as of this encounter Visit Diagnoses Not on filedocumented in this encounter
--- OUTSIDE RECORDS SUMMARY | 2024-12-31 14:04 | XMS_ITS | Encounter Summary ---
Author Organization [facility] Address [address] [facility] [place] [address] Care Team Providers Care Percussion Instructor Name Role Phone Unavailable Primary Care Provider Unavailabl e Encounter Details Date Type Department Care Team (Late st Contact Info) Description 11/10/2023 Clinisync Result Encounter NOMS External Department Unsolicited Cheyenne Meade DO [facility] [address] [place] [phone] Social History Tobacco Use Types Packs/Day Years [...] 01/16/2025 3:00 PM EDT Routine N[facility]S Dexter OBGYJess [address] [place] [phone] Cheyenne Meade DO [address] [place] [address] [place] [address] documented as of this encounter Procedures Procedure Name Priority Date/Time Associated Diagnosis Comments ALL CBC WITH AUTO DIFF Routine 11/10/2023 6:30 AM EDT US OB BPP W NON-STRESS 11/10/2023 6:18 AM EDT TB DRUG SCREEN RAPID (URINE) Routine 11/10/2023 5:45 AM EDT documented in this encounter Results * (ABNORMAL) ALL CBC WITH AUTO DIFF (11/10/2023 6:30 AM EDT) TBH WBC 11.3(H) 4.0 - 11.0 10 3/uL TBH TBH RBC 3.58(L) 4.20 - 5.40 10 6/uL TBH TBH HGB 10.2(L) 12.0 - 16.0 g/dL TBH TBH HCT 31.0(L) 36.0 - 48.0 % TBH TBH MCV 86.6 81.0 - 99.0 fL TBH TBH MCH 28.5 26.7 - 34.0 pg TBH TBH MCHC 32.9 29.9 - 35.2 g/dL TBH TBH RDW 13.5 11.0 - 15.0 % TBH TBH PLT 213 150 - 450 10 3/uL TBH TBH MPV 10.9 9.5 - 13.5 fL TBH NEUTROPHILS PERCENT AUTO 66.8 43.0 - 75.0 % TBH LYMPHOCYTES PERCENT AUTO 23.9 20.5 - 60.0 % TBH MONOCYTES PERCENT AUTO 6.4 1.7 - 12.0 % TBH TBH EO % 1.3 0.9 - 7.0 % TBH BASOPHILS PERCENT AUTO 0.4 0.2 - 2.0 % TBH IMMATURE GRANULOCYTES PCT AUTO 1.2(H) 0.0 - 0.5 % TBH NEUTROPHILS ABSOLUTE AUTO 7.5(H) 1.4 - 6.5 10 3/uL TBH LYMPHOCYTES ABSOLUTE AUTO 2.7 1.2 - 3.8 10 3/uL TBH MONOCYTES ABSOLUTE AUTO 0.7 0.3 - 0.8 10 3/uL TBH TBH EO # 0.2 0.0 - 0.7 10 3/uL TBH BASOPHILS ABSOLUTE AUTO 0.0 0.0 - 0.1 10 3/uL TBH IMMATURE GRANULOCYTES ABS AUTO 0.14(H) 0.00 - 0.03 10 3/uL TBH 11/10/2023 6:30 AM EDT 11/10/2023 6:42 AM EDT Narrative [facility] - 11/10/2023 6:52 AM EDT us Cheyenne Meade DO [facility]IN[facility] Final Result [facility] * US OB BPP W NON-STRESS (11/10/2023 6:18 AM EDT) Anatomical Region Laterality Modality Other 11/10/2023 6:18 AM EDT Narrative 11/10/2023 6:21 [place] [address] Ultrasound Report Signed Patient: ROSSY DOZIER MR#: [id number] : 1990 Acct:[id number] Age/Sex: 33 / F ADM Date: 11/09/23 Loc: US Attending Dr: Cheyenne Meade D.O. Ordering Physician: Cheyenne Meade D.O. Date of Service: 11/09/23 Procedure(s): US OB BPP w non-stress Accession Number(s): [id number] cc: Cheyenne Meade D.O.; [place] [address] [address] Patient Name: ROSSY DOZIER MRN: [id number]:[id number] date: 1990 Sex: F Assigned Patient Location: [facility] Current Patient Location: [facility] Accession/Order Number: [id number] Exam Date: 11/09/2023 17:45 Report Date: 11/10/2023 06:18 At the request of: CHEYENNE MEADE Procedure: US OB BPP w non-stress EXAMINATION: US OB BPP w non-stress HISTORY:THIRD TRIMESTER Z34.93 COMPARISON: Ultrasound OB biophysical 11/02/2023 TECHNIQUE: Ultrasound biophysical profile was performed in the radiology department. BREATHING MOVEMENTS: 2 GROSS BODY MOVEMENTS: 2 TONE: 2 QUALITATIVE AMNIOTIC FLUID VOLUME: 2 PRESENTATION: CEPHALIC HEART RATE: 131.71 bpm AMNIOTIC FLUID VOLUME: 12.57 cm GESTATIONAL AGE: 38 weeks 6 days US/US OB BPP w non-stress IMPRESSION: Total biophysical profile score: 8 Electronically authenticated by: YOGI HUBBARD Date: 11/10/2023 06:18 Dictated By: Yogi Hubbard M.D. Signed By: 11/10/23620 DD/ 7 TD/TT: Concrete Rubber: Procedure Note Radiology, Radiologist, MD - 11/10/2023 [place] [address] Ultrasound Report Signed Patient: ROSSY DOZIER NMR#: [id number] : 1990Acct:[id number] Age/Sex: 33 / FADM Date: 11/09/23 Loc: US Attending Dr: Cheyenne Meade D.O. Ordering Physician: Cheyenne Meade D.O. Date of Service: 11/09/23 Procedure(s): US OB BPP w non-stress Accession Number(s): [id number] cc: Cheyenne Meade D.O.; [place] [address] Patient Name: ROSSY DOZIER MRN: [facility]:[id number] date: 1990 Sex: F Assigned Patient Location: [facility] Current Patient Location: [facility] Accession/Order Number: [id number] Exam Date: 11/09/2023 17:45 Report Date: 11/10/2023 06:18 At the request of: CHEYENNE MEAED Procedure: US OB BPP w non-stress EXAMINATION: US OB BPP w non-stress HISTORY:THIRD TRIMESTER Z34.93 COMPARISON: Ultrasound OB biophysical 11/02/2023 TECHNIQUE: Ultrasound biophysical profile was performed in the radiology department. BREATHING MOVEMENTS: 2 GROSS BODY MOVEMENTS: 2 TONE: 2 QUALITATIVE AMNIOTIC FLUID VOLUME: 2 PRESENTATION: CEPHALIC HEART RATE: 131.71 bpm AMNIOTIC FLUID VOLUME: 12.57 cm GESTATIONAL AGE: 38 weeks 6 days US/US OB BPP w non-stress IMPRESSION: Total biophysical profile score: 8 Electronically authenticated by: YOGI HUBBARD Date: 11/10/2023 06:18 Dictated By: Yogi Hubbard M.D. Signed By:11/10/23620 DD/ 7 TD/TT: Concrete Rubber: us Cheyenne Deshaun DO [facility] IMAGING Final Result * TB DRUG SCREEN RAPID (URINE) (11/10/2023 5:45 AM EDT) CANNABINOID SCREEN URINE NEGATIVE NEGATIVE TBH PHENCYCLIDINE SCREEN URINE NEGATIVE NEGATIVE TBH COCAINE SCREEN URINE NEGATIVE NEGATIVE TBH METHAMPHETAMINES SCREEN URINE NEGATIVE NEGATIVE TBH OPIATE SCREEN URINE NEGATIVE NEGATIVE TBH AMPHETAMINE SCREEN URINE NEGATIVE NEGATIVE TBH BENZODIAZEPINES SCREEN URINE NEGATIVE NEGATIVE TBH TRICYCLIC ANTIDEPRESSANT URINE NEGATIVE NEGATIVE TBH METHADONE SCREEN URINE NEGATIVE NEGATIVE TBH BARBITURATES SCREEN URINE NEGATIVE NEGATIVE TBH OXYCODONE SCREEN URINE NEGATIVE NEGATIVE TBH BUPRENORPHINE SCREEN URINE NEGATIVE NEGATIVE TBH Comment: DRUG CLASS TEST SYSTEM CUT-OFF CONCENTRATIONS ARE FOLLOWS: AMP (Amphetamine): 500 ng/mL BAR (Barbiturates): 200 ng/mL BZO (Benzodiazepines): 150 ng/mL BUP (Buprenorphine): 10 ng/mL VALENCIA (Cocaine): 150 ng/mL mAMP (Methamphetamine): 500 ng/mL MTD (Methadone): 200 ng/mL OPI (Opiates): 100 ng/mL OXY (Oxycodone): 100 ng/mL PCP (Phencyclidine): 25 ng/mL THC (Cannabinoids): 50 ng/mL TCA (Trycyclic Antidepressants): 300 ng/mL 11/10/2023 5:45 AM EDT 11/10/2023 6:42 AM EDT Narrative [facility] - 11/10/2023 7:22 AM EDT us Cheyenne Deshaun DO [facility] Final Result [facility] documented in this encounter Visit Diagnoses Not on filedocumented in this encounter
--- OUTSIDE RECORDS SUMMARY | 2024-12-31 14:04 | XMS_ITS | Encounter Summary ---
Author Organization [facility] Address [address] [facility] [place] [address] Care Team Providers Care Dam Attendant Name Role Phone Unavailable Primary Care Provider Unavailabl e Encounter Details Date Type Department Care Team (Late Contact Info) Description 10/27/2023 Clinisync Result Encounter NOMS External Department Unsolicited Cheyenne Meade DO [facility] [address] [place] [id number] Social History Tobacco Use Types Packs/Day Years [...] PM EDT Routine [facility] [address] [place] [phone] Cheyenne Meade DO [address] [place] [address] documented as of this encounter Procedures Procedure Name Priority Date/Time Associated Diagnosis Comments US OB BPP W NON-STRESS 10/27/2023 5:29 AM EDT documented in this encounter Results * US OB BPP W NON-STRESS (10/27/2023 5:29 AM EDT) Anatomical Region Laterality Modality Other 10/27/2023 5:29 AM EDT Narrative 10/27/2023 5:31 [place] [address] Ultrasound Report Signed Patient: ROSSY DOZIER MR#: [id number] : 1990 Acct:[id number] Age/Sex: 32 / F ADM Date: 10/26/23 Loc: US Attending Dr: Cheyenne Meade D.O. Ordering Physician: Cheyenne Meade D.O. Date of Service: 10/26/23 Procedure(s): US OB BPP w non-stress Accession Number(s): [id number] cc: Cheyenne Meade D.O.; [place] [address] Patient Name: ROSSY DOZIER MRN: [id number] date: 1990 Sex: F Assigned Patient Location: [facility] Current Patient Location: Accession/Order Number: [id number] Exam Date: 10/26/2023 17:20 Report Date: 10/27/2023 05:29 At the request of: CHEYENNE MEADE Procedure: US OB BPP w non-stress EXAMINATION: US OB BPP w non-stress HISTORY:THIRD TRIMESTER Z34.93 COMPARISON: Ultrasound OB biophysical 10/17/2023 TECHNIQUE: Ultrasound biophysical profile was performed in the radiology department. BREATHING MOVEMENTS: 2 GROSS BODY MOVEMENTS: 2 TONE: 2 QUALITATIVE AMNIOTIC FLUID VOLUME: 2 PRESENTATION: CEPHALIC HEART RATE: 137.06 bpm AMNIOTIC FLUID VOLUME: 12.54 cm GESTATIONAL AGE: 36 weeks 6 days US/US OB BPP w non-stress IMPRESSION: Total biophysical profile score: 8 Electronically authenticated by: YOGI HUBBARD Date: 10/27/2023 05:29 Dictated By: Yogi Hubbard M.D. Signed By: 10/27/23530 DD/ 8 TD/TT: Head Bander And Liner Operator: Procedure Note Radiology, Radiologist, - 10/27/[address] [place] [address] Ultrasound Report Signed Patient: ROSSY DOZIER NMR#: [id number] : 1990Acct:[id number] Age/Sex: 32 / FADM Date: 10/26/23 Loc: US Attending Dr: Cheyenne Meade D.O. Ordering Physician: Cheyenne Meade D.O. Date of Service: 10/26/23 Procedure(s): US OB BPP w non-stress Accession Number(s): [id number] cc: Cheyenne Meade D.O.; [place] [address] Patient Name: ROSSY DOZIER MRN: [id number] date: 1990 Sex: F Assigned Patient Location: [facility] Current Patient Location: Accession/Order Number: [id number] Exam Date: 10/26/2023 17:20 Report Date: 10/27/2023 05:29 At the request of: CHEYENNE MEADE Procedure: US OB BPP w non-stress EXAMINATION: US OB BPP w non-stress HISTORY:THIRD TRIMESTER Z34.93 COMPARISON: Ultrasound OB biophysical 10/17/2023 TECHNIQUE: Ultrasound biophysical profile was performed in the radiology department. BREATHING MOVEMENTS: 2 GROSS BODY MOVEMENTS: 2 TONE: 2 QUALITATIVE AMNIOTIC FLUID VOLUME: 2 PRESENTATION: CEPHALIC HEART RATE: 137.06 bpm AMNIOTIC FLUID VOLUME: 12.54 cm GESTATIONAL AGE: 36 weeks 6 days US/US OB BPP w non-stress IMPRESSION: Total biophysical profile score: 8 Electronically authenticated by: YOGI HUBBARD Date: 10/27/2023 05:29 Dictated By: Yogi Hubbard M.D. Signed By:10/27/23530 DD/ 8 TD/TT: Head Bander And Liner Operator: us Cheyenne Meade DO [facility] Final Result documented in this encounter Visit Diagnoses Not on filedocumented in this encounter
--- OUTSIDE RECORDS SUMMARY | 2024-12-31 14:04 | XMS_ITS | Encounter Summary ---
Author Organization [facility] Address [address] [facility] [place] [address] Care Team Providers Care Odd Ticket Clerk Name Role Phone Unavailable Primary Care Provider Unavailabl e Encounter Details Date Type Department Care Team (Late st Contact Info) Description 07/01/2023 Clinisync Result Encounter [facility] External Department Unsolicited Cheyenne Meade DO [address] [place] [address] Social History Tobacco Use Types Packs/Day Years [...] on file documented as of this encounter Miscellaneous Notes * Result Encounter Note - Dianna Patel LPN - 07/01/2023 9:22 AM EDT Done! documented in this encounter Plan of Treatment Upcoming Encounters Date Type Department Care Team (Late st Contact Info) Description 01/16/2025 3:00 PM EDT Routine [facility] [address] [place] [address] Cheyenne Meade DO [address] [place] [address] [place] [address] documented as of this encounter Procedures Procedure Name Priority Date/Time Associated Diagnosis Comments US OB CERVICAL LENGTH 07/01/2023 9:17 AM EDT documented in this encounter Results * US OB CERVICAL LENGTH (07/01/2023 9:17 AM EDT) Anatomical Region Laterality Modality Other 07/01/2023 9:17 AM EDT Narrative 07/01/2023 9:20 AM EDT [address] [address] Ultrasound Report Signed Patient: ROSSY DOZIER MR#: [id number] : 1990 Acct:[id number] Age/Sex: 32 / F ADM Date: 06/30/23 Loc: US Attending Dr: Cheyenne Meade D.O. Ordering Physician: Cheyenne Meade D.O. Date of Service: 06/30/23 Procedure(s): US OB cervical length Accession Number(s): [id number] cc: Cheyenne Meade D.O.; Physician,Non-Staff M.DAlfredo [address] [address] Patient Name: ROSSY DOZIER MRN: [id number] date: 1990 Sex: F Assigned Patient Location: US Current Patient Location: Accession/Order Number: [id number] Exam Date: 06/30/2023 17:25 Report Date: 07/01/2023 09:17 At the request of: CHEYENNE MEADE Procedure: US OB cervical length EXAMINATION: US OB anatomy, US OB cervical length HISTORY: SCREENING FOR ANATOMIC SURVEY Z36.89 COMPARISON: No relevant comparison available. TECHNIQUE: Transabdominal sonographic examination was performed for obstetrical and evaluation. FINDINGS: Number: 1 Heart Rate: 150.8 bpm H.B. /min Amniotic Fluid Volume: Subjectively normal Placental Location: POSTERIOR , grade 1, with lower margin 1.2 cm from os. 2.8 x 2.2 x 1.4 cm hypoechoic area suspected to represent a venous seth. Cervix Length: 6.0 cm, closed. ANATOMY: Normal Structures -cerebellum, choroid plexus, cisterna magna, lateral cerebral ventricles, orbits, midline falx, hard palate, four-chamber heart, RVOT, LVOT, stomach, kidneys, bladder, umbilical cord insertion into abdomen, three-vessel cord, cervical spine, thoracic spine, lumbar spine, sacral spine, right upper extremity, left upper extremity, right lower extremity, left lower extremity. SUBOPTIMALLY SEEN: None ABNORMALITIES: None BIOMETRY: BPD: 4.4 cm 19 weeks 3 days HC: 16.9 cm 19 weeks 4 days AC: 14.6 cm 19 weeks 6 days FL: 3.3 cm 20 weeks 2 days EFW:326.4 grams; 46% FL/AC: 22.5 FL/BPD: 74.2 HC/AC: 1.2 GESTATIONAL AGE: Age by EDC: 20 weeks 0 days GUNJAN by EDC: 11/17/2023 Age by current US: 19 weeks 6 days GUNJAN by current US: 11/18/2023 US/US OB cervical length IMPRESSION: 1. Single live intrauterine with growth detailed above. 2. Posterior low-lying placenta. Electronically authenticated by: YOGI HUBBARD Date: 07/01/2023 09:17 Dictated By: Yogi Hubbard M.D. Signed By: 07/01/23919 DD/ 6 TD/TT: Software Sales Consultant: Procedure Note Radiology, Radiologist, - 07/01/2023 [place] [address] Ultrasound Report Signed Patient: ROSSY DOZIER [facility]#: [id number] : 1990Acct:[id number] Age/Sex: 32 / FADM Date: 06/30/23 Loc: US Attending Dr: Cheyenne Meade D.O. Ordering Physician: Cheyenne Meade D.O. Date of Service: 06/30/23 Procedure(s): US OB cervical length Accession Number(s): [id number] cc: Cheyenne Meade D.O.; Physician,Non-Staff Eze The [place] [address] Patient Name: ROSSY DOZIER MRN: [id number] date: 1990 Sex: F Assigned Patient Location: US Current Patient Location: Accession/Order Number: [id number] Exam Date: 06/30/2023 17:25 Report Date: 07/01/2023 09:17 At the request of: CHEYENNE MEADE Procedure: US OB cervical length EXAMINATION: US OB anatomy, US OB cervical length HISTORY: SCREENING FOR ANATOMIC SURVEY Z36.89 COMPARISON: No relevant comparison available. TECHNIQUE: Transabdominal sonographic examination was performed for obstetrical and evaluation. FINDINGS: Number: 1 Heart Rate: 150.8 bpm H.B. /min Amniotic Fluid Volume: Subjectively normal Placental Location: POSTERIOR , grade 1, with lower margin 1.2 cm from os.2.8 x 2.2 x 1.4 cm hypoechoic area suspected to represent a venous seth. Cervix Length: 6.0 cm, closed. ANATOMY: Normal Structures -cerebellum, choroid plexus, cisterna magna, lateral cerebral ventricles, orbits, midline falx, hard palate, four-chamberheart, RVOT, LVOT, stomach, kidneys, bladder, umbilical cord insertion intoabdomen, three-vessel cord, cervical spine, thoracic spine, lumbar spine, sacralspine, right upper extremity, left upper extremity, right lower extremity, leftlower extremity. SUBOPTIMALLY SEEN: None ABNORMALITIES: None BIOMETRY: BPD: 4.4 cm 19 weeks 3 days HC: 16.9 cm 19 weeks 4 days AC: 14.6 cm 19 weeks 6 days FL: 3.3 cm 20 weeks 2 days EFW:326.4 grams; 46% FL/AC: 22.5 FL/BPD: 74.2 HC/AC: 1.2 GESTATIONAL AGE: Age by EDC: 20 weeks 0 days GUNJAN by EDC: 11/17/2023 Age by current US: 19 weeks 6 days GUNJAN by current US: 11/18/2023 US/US OB cervical length IMPRESSION: 1. Single live intrauterine with growth detailed above. 2. Posterior low-lying placenta. Electronically authenticated by: YOGI HUBBARD Date: 07/01/2023 09:17 Dictated By: Yogi Hubbard M.D. Signed By:07/01/23919 DD/ 6 TD/TT: Software Sales Consultant: us Cheyenne Meade DO [facility] Final Result documented in this encounter Visit Diagnoses Not on filedocumented in this encounter
--- OUTSIDE RECORDS SUMMARY | 2024-12-31 14:04 | XMS_ITS | Encounter Summary ---
Author Organization [facility] Address [address] [facility] [place] [address] Care Team Providers Care Sock Knitter Name Role Phone Unavailable Primary Care Provider Unavailabl e Encounter Details Date Type Department Care Team (Late st Contact Info) Description 10/19/2023 Abstract [facility] [address] [place] [address] [place] [phone] Jordan Meade DO [address], [place] [address] Social History Tobacco Use Types Packs/Day Years [...] 01/16/2025 3:00 PM EDT Routine [facility] [place] [phone] Jordan Meade DO [address], [facility]11 documented as of this encounter Visit Diagnoses Not on filedocumented in this encounter
--- OUTSIDE RECORDS SUMMARY | 2024-12-31 14:04 | XMS_ITS | Encounter Summary ---
Author Organization [facility] Address [address] [facility] [place] [address] Care Team Providers Care Global Transportation Manager Name Role Phone Unavailable Primary Care Provider Unavailabl e Encounter Details Date Type Department Care Team (Late st Contact Info) Description 11/10/2023 Abstract [facility] [address] [place] [address] [place] [phone] Jordan Meade DO [address], [place] [address] Social History Tobacco Use Types Packs/Day Years [...] 01/16/2025 3:00 PM EDT Routine [facility] [place] [phone] Jordan Meade DO [address], [facility]11 documented as of this encounter Visit Diagnoses Not on filedocumented in this encounter
--- OUTSIDE RECORDS SUMMARY | 2024-12-31 14:04 | XMS_ITS | Encounter Summary ---
Author Organization [facility] Address [address] [facility] [place] [address] Care Team Providers Care Lab Scientist Name Role Phone Unavailable Primary Care Provider Unavailabl e Encounter Details Date Type Department Care Team (Late st Contact Info) Description 11/29/2024 Abstract [facility] [address] [facility] [place] [phone] Dalila Weiss MA Social History Tobacco Use Types Packs/Day Years [...] 01/16/2025 3:00 PM EDT Routine [facility] [address] [place] [phone] Jordan Meade DO [address] [place] [address] documented as of this encounter Visit Diagnoses Not on filedocumented in this encounter
--- OUTSIDE RECORDS SUMMARY | 2024-12-31 14:04 | XMS_ITS | Encounter Summary ---
Author Organization [facility] Address [address] [facility] [place] [address] Care Team Providers Care Custom Frame Assembler Name Role Phone Unavailable Primary Care Provider Unavailabl e Encounter Details Date Type Department Care Team (Late st Contact Info) Description 10/24/2023 Abstract [facility] [address] [place] [address] [place] [phone] Jordan Meade DO [address], [place] [address] Social History Tobacco Use Types Packs/Day Years [...] 01/16/2025 3:00 PM EDT Routine [facility] [place] [phone] Jordan Meade DO [address], [facility]11 documented as of this encounter Visit Diagnoses Not on filedocumented in this encounter
--- OUTSIDE RECORDS SUMMARY | 2024-12-31 14:04 | XMS_ITS | Encounter Summary ---
Author Organization [facility] Address [address] [facility] [place] [address] Care Team Providers Care Clean Up Helper Banquet Name Role Phone Unavailable Primary Care Provider Unavailabl e Encounter Details Date Type Department Care Team (Late st Contact Info) Description 11/10/2023 Abstract [facility] [address] [place] [address] [place] [phone] Jordan Meade DO [address], [place] [address] Social History Tobacco Use Types Packs/Day Years [...] 01/16/2025 3:00 PM EDT Routine [facility] [place] [phone] Jordan Meade DO [address], [facility]11 documented as of this encounter Visit Diagnoses Not on filedocumented in this encounter
--- OUTSIDE RECORDS SUMMARY | 2024-12-31 14:04 | XMS_ITS | Encounter Summary ---
Author Organization [facility] Address [address] [facility] [place] [address] Care Team Providers Care Senior Media Planner Name Role Phone Unavailable Primary Care Provider Unavailabl e Encounter Details Date Type Department Care Team (Late st Contact Info) Description 11/03/2023 Clinisync Result Encounter NOMS External Department Unsolicited Cheyenne Meade DO [facility] [place] [phone] Social History Tobacco Use Types Packs/Day Years [...] Routine [facility] [address] [place] [phone] Cheyenne Meade DO [address] [place] [address] documented as of this encounter Procedures Procedure Name Priority Date/Time Associated Diagnosis Comments US OB BPP W NON-STRESS 11/03/2023 5:37 AM EDT documented in this encounter Results * US OB BPP W NON-STRESS (11/03/2023 5:37 AM EDT) Anatomical Region Laterality Modality Other 11/03/2023 5:37 AM EDT Narrative 11/03/2023 5:40 [place] [address] Ultrasound Report Signed Patient: ROSSY DOZIER MR#: [id number] : 1990 Acct:[id number] Age/Sex: 33 / F ADM Date: 11/02/23 Loc: US Attending Dr: Cheyenne Meade D.O. Ordering Physician: Cheyenne Meade D.O. Date of Service: 11/02/23 Procedure(s): US OB BPP w non-stress Accession Number(s): [id number] cc: Cheyenne Meade D.O.; L[place] [address] Patient Name: ROSSY DOZIER MRN: [id number] date: 1990 Sex: F Assigned Patient Location: US Current Patient Location: Accession/Order Number: [id number] Exam Date: 11/02/2023 18:38 Report Date: 11/03/2023 05:37 At the request of: CHEYENNE MEADE Procedure: US OB BPP w non-stress EXAMINATION: US OB BPP w non-stress HISTORY:THIRD TRIMESTER Z34.93 COMPARISON: Ultrasound OB biophysical 10/26/2023 TECHNIQUE: Ultrasound biophysical profile was performed in the radiology department. BREATHING MOVEMENTS: 2 GROSS BODY MOVEMENTS: 2 TONE: 2 QUALITATIVE AMNIOTIC FLUID VOLUME: 2 PRESENTATION: CEPHALIC HEART RATE: 150 bpm AMNIOTIC FLUID VOLUME: 9.39 cm GESTATIONAL AGE: 265 Day US/US OB BPP w non-stress IMPRESSION: Total biophysical profile score: 8 Electronically authenticated by: YOGI HUBBARD Date: 11/03/2023 05:37 Dictated By: Yogi Hubbard M.D. Signed By: 11/03/23539 DD/ 6 TD/TT: Metal Furniture Assembly Supervisor: Procedure Note Radiology, Radiologist, - 11/03/2023 [place] [address] Ultrasound Report Signed Patient: ROSSY DOZIER NMR#: [id number] : 1990Acct:[id number] Age/Sex: Date: 11/02/23 Loc: US Attending Dr: Cheyenne Meade D.O. Ordering Physician: Cheyenne Meade D.O. Date of Service: 11/02/23 Procedure(s): US OB BPP w non-stress Accession Number(s): [id number] cc: Cheyenne Meade D.O.; L[place] DE LEON [place] [address] Patient Name: ROSSY DOZIER MRN: [id number] date: 1990 Sex: F Assigned Patient Location: US Current Patient Location: Accession/Order Number: [id number] Exam Date: 11/02/2023 18:38 Report Date: 11/03/2023 05:37 At the request of: CHEYENNE MEADE Procedure: US OB BPP w non-stress EXAMINATION: US OB BPP w non-stress HISTORY:THIRD TRIMESTER Z34.93 COMPARISON: Ultrasound OB biophysical 10/26/2023 TECHNIQUE: Ultrasound biophysical profile was performed in the radiology department. BREATHING MOVEMENTS: 2 GROSS BODY MOVEMENTS: 2 TONE: 2 QUALITATIVE AMNIOTIC FLUID VOLUME: 2 PRESENTATION: CEPHALIC HEART RATE: 150 bpm AMNIOTIC FLUID VOLUME: 9.39 cm GESTATIONAL AGE: 89 Day US/US OB BPP w non-stress IMPRESSION: Total biophysical profile score: 8 Electronically authenticated by: YOGI HUBBARD Date: 11/03/2023 05:37 Dictated By: Yogi Hubbard M.D. Signed By:11/03/23539 DD/ 6 TD/TT: Metal Furniture Assembly Supervisor: us Cheyenne Meade DO [facility] Final Result documented in this encounter Visit Diagnoses Not on filedocumented in this encounter
--- OUTSIDE RECORDS SUMMARY | 2024-12-31 14:04 | XMS_ITS | Encounter Summary ---
Author Organization [facility] Address [address] [facility] [place] [address] Care Team Providers Care Hole Digger Truck Driver Name Role Phone Unavailable Primary Care Provider Unavailabl e Encounter Details Date Type Department Care Team (Late st Contact Info) Description 07/28/2023 Clinisync Result Encounter NOMS External Department Unsolicited Cheyenne Meade DO [address] [place] [phone] Social History Tobacco Use Types Packs/Day Years [...] Routine [facility] [address] [place] [phone] Cheyenne Meade DO [address] [place] [address] documented as of this encounter Procedures Procedure Name Priority Date/Time Associated Diagnosis Comments US OB CERVICAL LENGTH 07/28/2023 3:58 PM EDT documented in this encounter Results * US OB CERVICAL LENGTH (07/28/2023 3:58 PM EDT) Anatomical Region Laterality Modality Other 07/28/2023 3:58 PM EDT Narrative 07/28/2023 4:01 [place] [address] Ultrasound Report Signed Patient: ROSSY DOZIER MR#: [id number] : 1990 Acct:[id number] Age/Sex: 32 / F ADM Date: 07/28/23 Loc: NOMS Attending Dr: Cheyenne Meade D.O. Ordering Physician: Cheyenne Meade D.O. Date of Service: 07/28/23 Procedure(s): US OB cervical length Accession Number(s): [id number] cc: Cheyenne Meade D.O.; Physician,Non-Staff M.DAlfredo [place] [id number] Patient Name: ROSSY DOZIER MRN: [id number] date: 1990 Sex: F Assigned Patient Location: [facility] Current Patient Location: [facility] Accession/Order Number: [id number] Exam Date: 07/28/2023 14:51 Report Date: 07/28/2023 15:58 At the request of: CHEYENNE MEADE Procedure: US OB cervical length EXAM: US OB placenta, US OB cervical length HISTORY: LOW LYING PLACENTA COMPARISON: None. TECHNIQUE: Transabdominal and transvaginal images FINDINGS: position: Cephalic presentation, longitudinal lie The cervix is closed measuring 4.9 cm in length The placenta is posterior in location. No retroplacental echogenic abnormality to suggest abruption. Area of hypoechogenicity in the superficial placenta measuring 1.9 x 1.2 x 3.0 cm likely a placental seth. The placental edge is 3.7 cm from the internal cervical os Heart rate: 151 beats minute Clinical age: 24 weeks 0 days Clinical GUNJAN: 11/17/2023 US/US OB cervical length IMPRESSION: The placental edge is 3.7 cm from the internal cervical os The cervix is closed measuring 4.9 cm in length Electronically authenticated by: ROSARIO GARRISON Date: 07/28/2023 15:58 Dictated By: Rosario Garrison M.D. Signed By: 07/28/23 1601 DD/ 1558 TD/TT: Client Relationship Executive: Procedure Note Radiology, Radiologist, MD - 07/28/2023 [place] [address] Ultrasound Report Signed Patient: ROSSY DOZIER NMR#: [id number] : 1990Acct:[id number] Age/Sex: 32 / FADM Date: 07/28/23 Loc: NOMS Attending Dr: Cheyenne Meade D.O. Ordering Physician: Cheyenne Meade D.O. Date of Service: 07/28/23 Procedure(s): US OB cervical length Accession Number(s): [id number] cc: Cheyenne Meade D.O.; Physician,Non-Staff Eze The [address] [address] Patient Name: ROSSY DOZIER MRN: [facility]:[id number] date: 1990 Sex: F Assigned Patient Location: [facility] Current Patient Location: [facility] Accession/Order Number: [id number] Exam Date: 07/28/2023 14:51 Report Date: 07/28/2023 15:58 At the request of: CHEYENNE MEADE Procedure: US OB cervical length EXAM: US OB placenta, US OB cervical length HISTORY: LOW LYING PLACENTA COMPARISON: None. TECHNIQUE: Transabdominal and transvaginal images FINDINGS: position: Cephalic presentation, longitudinal lie The cervix is closed measuring 4.9 cm in length The placenta is posterior in location. No retroplacental echogenicabnormality to suggest abruption. Area of hypoechogenicity in the superficial placenta measuring 1.9 x 1.2 x 3.0 cm likely a placental seth. The placental edge is 3.7 cm from the internal cervical os Heart rate: 151 beats minute Clinical age: 24 weeks 0 days Clinical GUNJAN: 11/17/2023 US/US OB cervical length IMPRESSION: The placental edge is 3.7 cm from the internal cervical os The cervix is closed measuring 4.9 cm in length Electronically authenticated by: ROSARIO GARRISON Date: 07/28/2023 15:58 Dictated By: Rosario Garrison M.D. Signed By:07/28/23 1601 DD/ 1558 TD/TT: Client Relationship Executive: us Cheyenne Meade DO [facility] Final Result documented in this encounter Visit Diagnoses Not on filedocumented in this encounter
--- OUTSIDE RECORDS SUMMARY | 2024-12-31 14:04 | XMS_ITS | Encounter Summary ---
Author Organization [facility] Address [address] [facility] [place] [address] Care Team Providers Care Load Out Worker Name Role Phone Unavailable Primary Care Provider Unavailabl e Encounter Details Date Type Department Care Team (Late st Contact Info) Description 07/28/2023 Clinisync Result Encounter NOMS External Department Unsolicited Cheyenne Meade DO [address] [place] [phone] Social History Tobacco Use Types Packs/Day Years [...] [facility] [address] [place] [phone] Cheyenne Meade DO [address] [place] [address] documented as of this encounter Procedures Procedure Name Priority Date/Time Associated Diagnosis Comments US OB PLACENTA 07/28/2023 3:58 PM EDT documented in this encounter Results * US OB PLACENTA (07/28/2023 3:58 PM EDT) Anatomical Region Laterality Modality Other 07/28/2023 3:58 PM EDT Narrative 07/28/2023 4:01 [place] [address] Ultrasound Report Signed Patient: ROSSY DOZIER MR#: [id number] : 1990 Acct:[id number] Age/Sex: 32 / F ADM Date: 07/28/23 Loc: [facility] Attending Dr: Cheyenne Meade D.O. Ordering Physician: Cheyenne Meade D.O. Date of Service: 07/28/23 Procedure(s): US OB placenta Accession Number(s): [id number] cc: Cheyenne Meade D.O.; Physician,Non-Staff M.DAlfredo [place] [id number] Patient Name: ROSSY DOZIER MRN: [id number] date: 1990 Sex: F Assigned Patient Location: [facility] Current Patient Location: [facility] Accession/Order Number: [id number] Exam Date: 07/28/2023 14:51 Report Date: 07/28/2023 15:58 At the request of: CHEYENNE MEADE Procedure: US OB placenta EXAM: US OB placenta, US OB cervical [...] 0 days Clinical GUNJAN: 11/17/2023 US/US OB placenta IMPRESSION: The placental edge is 3.7 cm from the internal cervical os The cervix is closed measuring 4.9 cm in length Electronically authenticated by: ROSARIO GARRISON Date: 07/28/2023 15:58 Dictated By: Rosario Garrison M.D. Signed By: 07/28/23 1602 DD/ 1558 TD/TT: Forest Worker: Procedure Note Radiology, Radiologist, - 07/28/2023 [place] [address] Ultrasound Report Signed Patient: ROSSY DOZIER NMR#: [id number] : 1990Acct:[id number] Age/Sex: 32 / FADM Date: 07/28/23 Loc: [facility] Attending Dr: Cheyenne Meade D.O. Ordering Physician: Cheyenne Meade D.O. Date of Service: 07/28/23 Procedure(s): US OB placenta Accession Number(s): [id number] cc: Cheyenne Meade D.O.; Physician,Non-Staff Eze The [place] [id number] Patient Name: ROSSY DOIZER MRN: [id number] date: 1990 Sex: F Assigned Patient Location: [facility] Current Patient Location: [facility] Accession/Order Number: [id number] Exam Date: 07/28/2023 14:51 Report Date: 07/28/2023 15:58 At the request of: CHEYENNE MEADE Procedure: US OB placenta EXAM: US OB placenta, US OB cervical [...] 0 days Clinical GUNJAN: 11/17/2023 US/US OB placenta IMPRESSION: The placental edge is 3.7 cm from the internal cervical os The cervix is closed measuring 4.9 cm in length Electronically authenticated by: ROSARIO GARRISON Date: 07/28/2023 15:58 Dictated By: Rosario Garrison M.D. Signed By:07/28/23 1601 DD/ 1558 TD/TT: Forest Worker: us Cheyenne Meade DO [facility] Final Result documented in this encounter Visit Diagnoses Not on filedocumented in this encounter
--- OUTSIDE RECORDS SUMMARY | 2024-12-31 14:04 | XMS_ITS | Encounter Summary ---
Author Organization [facility] Address [address] [facility] [place] [address] Care Team Providers Care Shipyard Painter Name Role Phone Unavailable Primary Care Provider Unavailabl e Encounter Details Date Type Department Care Team (Late st Contact Info) Description 11/08/2023 Orders Only CEFERINO VITALE [address] [place] [phone] Loyda Muhammad LPN [address] [facility] Agustin [place] [address] Social History Tobacco Use Types Packs/Day Years [...] 3:00 PM EDT Routine NOMNicole VITALE [address] [facility] [place] [address] Jordan Meade DO [address] [facility] [address] [place]ustin [place] [phone] documented as of this encounter Procedures Procedure Name Priority Date/Time Associated Diagnosis Comments PAP SMEAR Routine 06/15/2023 12:00 AM EDT documented in this encounter Results * Pap Smear (06/15/2023 12:00 AM EDT) Swab Cervical swab / Unknown us Deshaun Nurse [facility] Ob LAB CYTOLOGY ORDERABLES Final Result EXTERNAL LAB documented in this encounter Visit Diagnoses Not on filedocumented in this encounter
--- OUTSIDE RECORDS SUMMARY | 2024-12-31 14:04 | XMS_ITS | Encounter Summary ---
Author Organization [facility] Address [address] [facility] [place] [address] Care Team Providers Care Biopharmaceutical Rep Name Role Phone Unavailable Primary Care Provider Unavailabl e Encounter Details Date Type Department Care Team (Late st Contact Info) Description 04/06/2024 Abstract NOMNicole VITALE [address] [place] [address] [place] [phone] Jordan Meade DO [address], [place] [address] Social History Tobacco Use Types Packs/Day Years Used Date Smoking Tobacco: Never Smokeless Tobacco: Never Alcohol Use Standard Drinks/Week Comments Yes 0 (1 standard drink = 0.6 oz pur e alcohol) caffeine: occasional soda Comments No Sex and Gender Information Value Date Recorded Sex Assigned at Not on file Legal Sex Female 7:01 PM EDT Gender Identity Not on file Sexual Orientation Not on file documented as of this encounter Plan of Treatment Upcoming Encounters Date Type Department Care Team (Late st Contact Info) Description 01/16/2025 3:00 PM EDT Routine CEFERINO VITALE [facility] [place] [phone] Jordan Meade DO [address], [facility] documented as of this encounter Visit Diagnoses Not on filedocumented in this encounter
--- OUTSIDE RECORDS SUMMARY | 2024-12-31 14:04 | XMS_ITS | Encounter Summary ---
Author Organization [facility] Address [address] [facility] [place] [address] Care Team Providers Care Delivery Crew Member Name Role Phone Unavailable Primary Care Provider Unavailabl e Encounter Details Date Type Department Care Team (Late st Contact Info) Description 07/01/2023 Clinisync Result Encounter [facility]S External Department Unsolicited Cheyenne Meade DO [address] [place] [phone] Social History Tobacco Use Types Packs/Day Years [...] Routine [facility] [address] [place] [phone] Cheyenne Meade DO [address] [place] [address] [place] [address] documented as of this encounter Procedures Procedure Name Priority Date/Time Associated Diagnosis Comments US OB ANATOMY 07/01/2023 9:17 AM EDT documented in this encounter Results * US OB ANATOMY (07/01/2023 9:17 AM EDT) Anatomical Region Laterality Modality Other 07/01/2023 9:17 AM EDT Narrative 07/01/2023 9:20 [place] [address] Ultrasound Report Signed Patient: ROSSY DOZIER MR#: [id number] : 1990 Acct:[id number] Age/Sex: 32 / F ADM Date: 06/30/23 Loc: US Attending Dr: Cheyenne Meade D.O. Ordering Physician: Cheyenne Meade D.O. Date of Service: 06/30/23 Procedure(s): US OB anatomy Accession Number(s): [id number] cc: Cheyenne Meade D.O.; Physician,Non-Staff M.DAlfredo [place] [id number] Patient Name: ROSSY DOZIER MRN: [id number] date: 1990 Sex: F Assigned Patient Location: US Current Patient Location: Accession/Order Number: [id number] Exam Date: 06/30/2023 17:25 Report Date: 07/01/2023 09:17 At the request of: CHEYENNE MEADE Procedure: US OB anatomy EXAMINATION: US OB anatomy, US OB cervical [...] GUNJAN by current US: 11/18/2023 US/US OB anatomy IMPRESSION: 1. Single live intrauterine with growth detailed above. 2. Posterior low-lying placenta. Electronically authenticated by: YOGI HUBBARD Date: 07/01/2023 09:17 Dictated By: Yogi Hubbard M.D. Signed By: 07/01/23919 DD/ 6 TD/TT: Assistant Auto Center Manager: Procedure Note Radiology, Radiologist, MD - 07/01/2023 [place] [address] Ultrasound Report Signed Patient: ROSSY DOZIER NMR#: [id number] : 1990Acct:[id number] Age/Sex: 32 FADM Date: 06/30/23 Loc: US Attending Dr: Cheyenne Meade D.O. Ordering Physician: Cheyenne Meade D.O. Date of Service: 06/30/23 Procedure(s): US OB anatomy Accession Number(s): [id number] cc: Cheyenne Meade D.O.; Physician,Non-Staff Eze The [place] [phone] Patient Name: ROSSY DOZIER MRN: [id number] date: 1990 Sex: F Assigned Patient Location: US Current Patient Location: Accession/Order Number: [id number] Exam Date: 06/30/2023 17:25 Report Date: 07/01/2023 09:17 At the request of: CHEYENNE MEADE Procedure: US OB anatomy EXAMINATION: US OB anatomy, US OB cervical [...] GUNJAN by current US: 11/18/2023 US/US OB anatomy IMPRESSION: 1. Single live intrauterine with growth detailed above. 2. Posterior low-lying placenta. Electronically authenticated by: YOGI HUBBARD Date: 07/01/2023 09:17 Dictated By: Yogi Hubbard M.D. Signed By:07/01/23919 DD/ 6 TD/TT: Assistant Auto Center Manager: Cheyenne Meade DO [facility] Final Result documented in this encounter Visit Diagnoses Not on filedocumented in this encounter
--- OUTSIDE RECORDS SUMMARY | 2024-12-31 14:04 | XMS_ITS | Encounter Summary ---
Author Organization [facility] Address [address] [facility] [place] [address] Care Team Providers Care Teletype Mechanic Name Role Phone Unavailable Primary Care Provider Unavailabl e Encounter Details Date Type Department Care Team (Late st Contact Info) Description 04/08/2023 Clinisync Result Encounter NOMS External Department Unsolicited Cheyenne Meade DO [address], [facility]11 Social History Tobacco Use Types Packs/Day Years Used Date Smoking Tobacco: Never Assessed Comments Yes Sex and Gender Information Value Date Recorded Sex Assigned at Not on file Legal Sex Female 7:01 PM EDT Gender Identity Not on file Sexual Orientation Not on file documented as of this encounter Plan of Treatment Upcoming Encounters Date Type Department Care Team (Late st Contact Info) Description 01/16/2025 3:00 PM EDT Routine NOMNicole [place] OBGYN [address] [facility] [place] [phone] Cheyenne Meade DO [address] [place] [address] documented as of this encounter Procedures Procedure Name Priority Date/Time Associated Diagnosis Comments HBSAG SCREEN Routine 04/08/2023 1:36 PM EST RAPID PLASMA REAGIN, QUANT Routine 04/08/2023 1:36 PM EST HIV AB/P24 AG WITH REFLEX Routine 04/08/2023 1:36 PM EST HCV ANTIBODY RFX TO QUANT PCR Routine 04/08/2023 1:36 PM EST MLR HEMOGLOBIN A1C Routine 04/08/2023 1: 36 PM EST ALL THYROID STIM HORMONE Routine 04/08/2023 1:36 PM EST ALL RUBELLA IGG AB Routine 04/08/2023 1: 36 PM EST ALL CBC WITH AUTO DIFF Routine 04/08/2023 1:36 PM EST US OB TRANSVAGINAL 04/08/2023 11 :36 AM EST documented in this encounter Results * HBSAG SCREEN (04/08/2023 1:36 PM EST) HBSAG SCREEN Negative Negative [facility] Comment: Performed at: - [place] [id number] Teacher Emotionally Impaired: Jordan Ordonez PhD, Phone: [phone] 04/08/2023 1:36 PM EST 04/08/2023 1:44 PM EST Narrative [facility] - 04/09/2023 11:04 AM EST us Cheyenne Meade DO LAB BLOOD ORDERABLES Final Resul t [facility]IN[facility]NC [facility] * RAPID PLASMA REAGIN, QUANT (04/08/2023 1:36 PM EST) RAPID PLASMA REAGIN, QUANT Non Reactive NonRea<1: 1 titer [facility] Comment: Please Note: This test does not meet current guidelines for screening and diagnosis of syphilis. This test is intended for following treatment response in patients being treated for syphilis infection. To screen for syphilis infection, a reflex cascade that includes both RPR and a treponema-specific assay should be utilized, such as Treponema pallidum (Syphilis) Screening [place] (471470) or Rapid Plasma Reagin (RPR) Test With Reflex to Quantitative RPR and Confirmatory Treponema pallidum Antibodies (838967). Performed at: [address] [id number] Teacher Emotionally Impaired: Jordan Ordonez PhD, Phone: [phone] 04/08/2023 1:36 PM EST 04/08/2023 1:44 PM EST Narrative [facility] - 04/09/2023 11:04 AM EST Cheyenne Deshaun LAB BLOOD ORDERABLES Final Resul t Performing Organization Address [facility] Co de Phone Number [facility] * HCV ANTIBODY RFX TO QUANT PCR (04/08/2023 1:36 PM EST) HCV AB Non Reactive Non Reactive [facility] INTERPRETATION: Comment . [facility] Comment: Not infected with HCV unless early or acute infection is suspected (which may be delayed in an immunocompromised individual), or other evidence exists to indicate HCV infection. 04/08/2023 1:36 PM EST 04/08/2023 1:44 PM EST Narrative [facility] - 04/09/2023 10:49 AM EST Cheyenne Deshaun LAB BLOOD ORDERABLES Final Resul t Performing Organization Address City/[facility]/ZIP Co de Phone Number [facility] * HIV AB/P24 AG WITH REFLEX (04/08/2023 1:36 PM EST) HIV AB/P24 AG SCREEN Non Reactive Non Reactive [facility] Comment: HIV Negative HIV-1/HIV-2 antibodies and HIV-1 p24 antigen were NOT detected. There is no laboratory evidence of HIV infection. Performed at: [address] [id number] Teacher Emotionally Impaired: Jordan Ordonez PhD, Phone: [phone] 04/08/2023 1:36 PM EST 04/08/2023 1:44 PM EST Narrative CLIN[facility]YNC - 04/09/2023 10:49 AM EST [facility] DO LAB BLOOD ORDERABLES Final Resul t Performing Organization Address [facility] de Phone Number [facility] * ALL RUBELLA IGG AB (04/08/2023 1:36 PM EST) RUBELLA ANTIBODIES, IGG 1.45 Immune >0.99 index TB Comment: Non-immune <0.90 Equivocal 0.90 - 0.99 Immune >0.99 Performed at: [facility] Lab[address] [id number] Teacher Emotionally Impaired: Jordan Ordonez PhD, Phone: [phone] 04/08/2023 1:36 PM EST 04/08/2023 1:44 PM EST Narrative CLIN[facility]NC - 04/09/2023 10:49 AM EST [facility] [place] [facility] Final Result Performing Organization Address [facility] Phone Number [facility] * ALL THYROID STIM HORMONE (04/08/2023 1:36 PM EST) Pathologist [facility] THYROID STIMULATING HORMONE 1.054 0.358 - 3.740 uIU/mL TB 04/08/2023 1:36 PM EST 04/08/2023 1:44 PM EST Narrative CLINISYNC - 04/08/2023 3:04 PM EST [facility] [place] DO [facility] Final Result Performing Organization Address [facility] Phone Number [facility] * MLR HEMOGLOBIN A1C (04/08/2023 1:36 PM EST) Pathologist [facility] GLYCOHEMOGLOBIN A1C 5.0 4.5 - 6.2 % [facility] Comment: ADA RECOMMENDED LIMIT 4.0 - 6.0 ADA THERAPEUTIC TARGET < 7.0 ACTION SUGGESTED > 7.0 ESTIMATED AVERAGE GLUCOSE 97 mg/dL [facility] 04/08/2023 1:36 PM EST 04/08/2023 1:44 PM EST Narrative CLIN[facility] - 04/08/2023 2:13 PM EST Cheyenne Meade DO CLINISYNC Final Result [facility]IN[facility]ELICA [facility] * (ABNORMAL) ALL CBC WITH AUTO DIFF (04/08/2023 1:36 PM EST) TB WBC 11.6(H) 4.0 - 11.0 10 3/uL TBH TBH RBC 4.30 4.20 - 5.40 10 6/uL TBH TBH HGB 12.5 12.0 - 16.0 g/dL TBH TBH HCT 36.7 36.0 - 48.0 % TBH TBH MCV 85.3 81.0 - 99.0 fL TBH TBH MCH 29.1 26.7 - 34.0 pg TBH TBH MCHC 34.1 29.9 - 35.2 g/dL TBH TBH RDW 13.4 11.0 - 15.0 % TBH TBH PLT 349 150 - 450 10 3/uL TBH TBH MPV 10.6 9.5 - 13.5 fL TBH NEUTROPHILS PERCENT AUTO 73.7 43.0 - 75.0 % TBH LYMPHOCYTES PERCENT AUTO 20.1(L) 20.5 - 60.0 % TBH MONOCYTES PERCENT AUTO 4.7 1.7 - 12.0 % TBH TBH EO % 0.9 0.9 - 7.0 % TBH BASOPHILS PERCENT AUTO 0.3 0.2 - 2.0 % [facility]H IMMATURE GRANULOCYTES PCT AUTO 0.3 0.0 - 0.5 % TBH NEUTROPHILS ABSOLUTE AUTO 8.6(H) 1.4 - 6.5 10 3/uL TBH LYMPHOCYTES ABSOLUTE AUTO 2.3 1.2 - 3.8 10 3/uL TBH MONOCYTES ABSOLUTE AUTO 0.6 0.3 - 0.8 10 3/uL TBH TBH EO # 0.1 0.0 - 0.7 10 3/uL TBH BASOPHILS ABSOLUTE AUTO 0.0 0.0 - 0.1 10 3/uL [facility] IMMATURE GRANULOCYTES ABS AUTO 0.03 0.00 - 0.03 10 3/uL [facility] 04/08/2023 1:36 PM EST 04/08/2023 1:44 PM EST Narrative [facility]IN[facility]YNC - 04/08/2023 2:08 PM EST us Cheyenne Meade DO CLINISYVALENTE Final Result [facility] * US OB TRANSVAGINAL (04/08/2023 11:36 AM EST) Anatomical Region Laterality Modality Other 04/08/2023 11:3 6 AM EST Narrative 04/08/2023 11:39 [place] [address] Ultrasound Report Signed Patient: Rossy Dozier MR#: [id number] : 1990 Acct:[id number] Age/Sex: 32 / F ADM Date: 04/08/23 Loc: US Attending Dr: Cheyenne Meade D.O. Ordering Physician: Cheyenne Meade D.O. Date of Service: 04/08/23 Procedure(s): US OB transvaginal Accession Number(s): [id number] cc: Cheyenne Meade D.O.; Physician,Non-Staff [place] [address] Patient Name: ROSSY DOZIER MRN: [facility]:[id number] date: 1990 Sex: F Assigned Patient Location: US Current Patient Location: US Accession/Order Number: [id number] Exam Date: 04/08/2023 10:09 Report Date: 04/08/2023 11:36 At the request of: CHEYENNE MEADE Procedure: US OB transvaginal EXAMINATION: US OB transvaginal HISTORY: Missed menses COMPARISON: No relevant comparison available. FINDINGS: Torres intrauterine gestation Gestational sac: 3.4 cm, 8 weeks 4 days CRL: 1.9 cm, 8 weeks 3 days Yolk sac: 3.3 mm Heart rate: 160 beats minute Cervix: Closed, 4.6 cm The uterus is normal, anteverted The ovaries are normal. 2.2 cm right ovarian cystic lesion, favor a corpus luteal cyst Clinical age: 8 weeks 1 day Clinical GUNJAN: 11/17/2023 Ultrasound age: 8 weeks 3 days Ultrasound GUNJAN: 11/15/2023 US/US OB transvaginal IMPRESSION: Viable torres intrauterine gestation measuring 8 weeks 3 days Electronically authenticated by: ROSARIO GARRISON Date: 04/08/2023 11:36 Dictated By: Rosario Garrison M.D. Signed By: 04/08/23 1139 DD/ 1136 TD/TT: Booster Station Operator: Procedure Note Radiology, Radiologist, MD - 04/08/2023 [place] [address] Ultrasound Report Signed Patient: Rossy Dozier NMR#: [id number] : 1990Acct:[id number] Age/Sex: 32 / FADM Date: 04/08/23 Loc: US Attending Dr: Cheyenne Meade D.O. Ordering Physician: Cheyenne Meade D.O. Date of Service: 04/08/23 Procedure(s): US OB transvaginal Accession Number(s): [id number] cc: Cheyenne Meade D.O.; Physician,Non-Staff Eze The [place] [id number] Patient Name: ROSSY DOZIER MRN: TBH:[id number] date: 1990 Sex: F Assigned Patient Location: US Current Patient Location: US Accession/Order Number: [id number] Exam Date: 04/08/2023 10:09 Report Date: 04/08/2023 11:36 At the request of: CHEYENNE MEADE Procedure: US OB transvaginal EXAMINATION: US OB transvaginal HISTORY: Missed menses COMPARISON: No relevant comparison available. FINDINGS: Torres intrauterine gestation Gestational sac: 3.4 cm, 8 weeks 4 days CRL: 1.9 cm, 8 weeks 3 days Yolk sac: 3.3 mm Heart rate: 160 beats minute Cervix: Closed, 4.6 cm The uterus is normal, anteverted The ovaries are normal. 2.2 cm right ovarian cystic lesion, favor a corpus luteal cyst Clinical age: 8 weeks 1 day Clinical GUNJAN: 11/17/2023 Ultrasound age: 8 weeks 3 days Ultrasound GUNJAN: 11/15/2023 US/US OB transvaginal IMPRESSION: Viable torres intrauterine gestation measuring 8 weeks 3 days Electronically authenticated by: ROSARIO GARRISON Date: 04/08/2023 11:36 Dictated By: Rosario Garrison M.D. Signed By:04/08/23 1139 DD/ 1136 TD/TT: Booster Station Operator: us Cheyenne Deshaun DO [facility] Final Result documented in this encounter Visit Diagnoses Not on filedocumented in this encounter
--- OUTSIDE RECORDS SUMMARY | 2024-12-31 14:04 | XMS_ITS | Clinical Summary ---
Author Organization [facility] Address [address] [facility] [facility] [place] [address] Care Team Providers Care Correction Lieutenant Name Role Phone Unavailable Primary Care Provider Unavailabl e Allergies No known active allergies Medications metoprolol succinate XL (Toprol-XL) 25 MG 24 hr tablet Take 25 mg by mouth in the morning. Active ondansetron ODT (Zofran-ODT) 4 MG disintegrating tabletIndications: Nausea Take 1 tablet (4 mg) by mouth every 6 (six) hours if needed for nausea or vomiting 30 tablet 2 5 025 Active Drospirenone (Slynd) 4 MG tabletIndications: Abnormal uterine bleeding (AUB) Take 4 mg by mouth Daily 28 tablet 11 5 025 Discontin ued(Thera py completed ) Encounters Date Type Department Care Team Description 12/20/2024 2:30 PM EDT [place] [address] [place]: 9w1d 12/20/2024 2:00 PM EDT Ancillary [place] [address] Twin gestation in first trimester, unspecified multiple gestation type ([facility]) 12/12/2024 [place] [address] Huma Young MA 12/06/2024 2:00 PM EDT Office Visit [facility] [address] [place] [phone] Reanna Bowman PA Bleeding in early ([facility]); Nausea 12/06/2024 1:30 PM EDT Ancillary Procedure [facility] [address] [place] [phone] Bleeding in early ([facility]); Missed menses; Positive urine test ([facility]) 11/29/2024 Abstract [facility] [address] [place] [address] [place] [phone] Dalila Weiss MA 11/29/2024 Telephone [facility] [address] [place] [address] [place] [address] Dalila Weiss MA from Last 3 Months Family History Medical History Relation Name Comments Heart disease Brother Heart disease Father Diabetes Maternal Grandfather Heart disease Maternal Grandfather Heart disease Mother arteriosclerot ic Hyperlipidemia Mother Osteoporosis Mother placenta previa Mother Ovarian cancer Other Maternal grea t aunt Diverticulosis Paternal Grandfather Heart disease Paternal Grandfather Heart disease Sister Relation Name Status Comments Brother Father Maternal Grandfather Mother Other Paternal Grandfather Sister Social History Tobacco Use Types Packs/Day Years [...] on file Sexual Orientation Not on file Last Filed Vital Signs Vital Sign Reading Time Taken Comments Blood Pressure 118/72 12/20/2024 3:01 PM EDT Pulse - - Temperature - - Respiratory Rate - - Oxygen Saturation - - Inhaled Oxygen Concentration - - Weight 73.9 kg (163 lb) 12/20/2024 3:01 PM EDT Height 170.2 cm (5' 7 ) 03/09/2022 12:00 PM EST Body Mass Index 25.53 03/09/2022 12:00 PM EST Plan of Treatment Upcoming Encounters Date Type Department Care Team (Late st Contact Info) Description 01/16/2025 3:00 PM EDT Routine [facility] [address] [place] [address] Jordan Meade DO [address] [place] [address] Procedures Procedure Name Priority Date/Time Associated Diagnosis Comments POCT URINALYSIS DIPSTICK Routine 12/20/2024 3:06 PM EDT Missed menses POCT , URINE Routine 12/20/2024 3:06 PM EDT Missed menses OB TRANSVAGINAL Routine 12/20/2024 2: 30 PM EDT Twin gestation in first trimester, unspecified multiple gestation type ([facility]) POCT , URINE Routine 12/06/2024 2:30 PM EDT Bleeding in early ([facility]) US OB TRANSVAGINAL Routine 12/06/2024 2: 11 PM EDT Bleeding in early ([facility]) Missed menses Positive urine test ([facility]) from Last 3 Months Results * (ABNORMAL) POCT , urine manually resulted (12/20/2024 3:06 PM EDT) Only the most recent of2 resultswithin the time period is included. Preg Test, Ur Positive Negative Urine 12/20/2024 3:06 PM EDT us Jordan Meade DO POINT OF CARE TEST ENTER/EDIT OR DERABLES Final Result * (ABNORMAL) POCT urinalysis dipstick manually resulted (12/20/2024 3:06 PM EDT) Color, UA Yellow Clarity, UA Clear Glucose, UA Negative Negative - 2000(110) ++++ mg/dL Bilirubin, UA Negative Negative - 4(70) +++ mg/dL Ketones, UA Negative Negative - 160(16) ++++ mg/dL Spec Grav, UA 1.025 1 - 1.03 Blood, UA Negative Negative - 50 Drake/mcL pH, UA 6.0 5 - 9 Protein, UA Negative Negative - 2000(20) ++++ mg/dL Urobilinogen, UA 1.0 0.2 - 12 mg/dL Leukocytes, UA 2+ Negative - 500+++ Dasia/mcL Nitrite, UA Negative Negative - Positive Urine 12/20/2024 3:06 PM EDT us Jordan Deshaun DO POINT OF CARE TEST ENTER/EDIT OR DERABLES Final Result * US OB transvaginal (12/20/2024 2:30 PM EDT) Only the most recent of2 resultswithin the time period is included. Anatomical Region Laterality Modality Body Ultrasound 12/20/2024 [...] cm. Procedure Note Kalpesh Louis MD - 09/25/2025 FINDINGS: A single intrauterine gestational sac is [...] Kalpesh Louis MD us Jordan Meade DO IMG OB US PROCEDURES Final Resul t from Last 3 Months Insurance FRONTPATH
--- OUTSIDE RECORDS SUMMARY | 2024-12-31 14:05 | XMS_ITS | Encounter Summary ---
Author Organization [facility] Address [address] [facility] [[email or web address]] [place] [address] Care Team Providers Care Dry Finisher Name Role Phone Unavailable Primary Care Provider Unavailabl e Encounter Details Date Type Department Care Team (Late st Contact Info) Description 10/06/2023 Clinisync Result Encounter [facility] External Department Unsolicited Cheyenne Meade DO [facility] [place] [address] Social History Tobacco Use Types Packs/Day Years [...] [facility] [address] [place] [phone] Cheyenne Meade DO [address] [place] [address] documented as of this encounter Procedures Procedure Name Priority Date/Time Associated Diagnosis Comments US OB BPP W NON-STRESS 10/06/2023 7:13 AM EDT documented in this encounter Results * US OB BPP W NON-STRESS (10/06/2023 7:13 AM EDT) Anatomical Region Laterality Modality Other 10/06/2023 7:13 AM EDT Narrative 10/06/2023 7:15 [place] [address] Ultrasound Report Signed Patient: ROSSY DOZIER MR#: [id number] : 1990 Acct:[id number] Age/Sex: 32 / F ADM Date: 10/05/23 Loc: US Attending Dr: Cheyenne Meade D.O. Ordering Physician: Cheyenne Meade D.O. Date of Service: 10/05/23 Procedure(s): US OB BPP w non-stress Accession Number(s): [id number] cc: Cheyenne Meade D.O.; Physician,Non-Staff M.DAlfrdeo The [place] [address] Patient Name: ROSSY DOZIER MRN: [id number] date: 1990 Sex: F Assigned Patient Location: [facility] Current Patient Location: Accession/Order Number: [id number] Exam Date: 10/05/2023 19:15 Report Date: 10/06/2023 07:13 At the request of: CHEYENNE MEADE Procedure: US OB BPP w non-stress EXAMINATION: US OB BPP w non-stress HISTORY: POTS COMPARISON: No relevant comparison available. TECHNIQUE: Ultrasound biophysical profile was performed in the radiology department. non-reactive stress testing was performed by nursing staff in the birthing center. FINDINGS: BREATHING MOVEMENTS: 2 GROSS BODY MOVEMENTS: 2 TONE: 2 QUALITATIVE AMNIOTIC FLUID VOLUME: 2 PRESENTATION: CEPHALIC HEART RATE: 132.35 bpm AMNIOTIC FLUID VOLUME: 17.1 cm GESTATIONAL AGE: 33 weeks 6 days US/US OB BPP w non-stress IMPRESSION: Total biophysical profile score: 8 Electronically authenticated by: ROSARIO GARRISON Date: 10/06/2023 07:13 Dictated By: Rosario Garrison M.D. Signed By: 10/06/23714 DD/ 2 TD/TT: Remedial Masseur: Procedure Note Radiology, Radiologist, - 10/06/2023 [place] [address] Ultrasound Report Signed Patient: ROSSY DOZIER NMR#: [id number] : 1990Acct:[id number] Age/Sex: 32 / FADM Date: 10/05/23 Loc: US Attending Dr: Cheyenne Meade D.O. Ordering Physician: Cheyenne Meade D.O. Date of Service: 10/05/23 Procedure(s): US OB BPP w non-stress Accession Number(s): [id number] cc: Cheyenne Meade D.O.; Physician,Non-Staff Eze [place] [address] Patient Name: ROSSY DOZIER MRN: [id number] date: 1990 Sex: F Assigned Patient Location: [facility] Current Patient Location: Accession/Order Number: [id number] Exam Date: 10/05/2023 19:15 Report Date: 10/06/2023 07:13 At the request of: CHEYENNE MEADE Procedure: US OB BPP w non-stress EXAMINATION: US OB BPP w non-stress HISTORY: POTS COMPARISON: No relevant comparison available. TECHNIQUE: Ultrasound biophysical profile was performed in the radiology department. non-reactive stress testing was performed by nursingstaff in the birthing center. FINDINGS: BREATHING MOVEMENTS: 2 GROSS BODY MOVEMENTS: 2 TONE: 2 QUALITATIVE AMNIOTIC FLUID VOLUME: 2 PRESENTATION: CEPHALIC HEART RATE: 132.35 bpm AMNIOTIC FLUID VOLUME: 17.1 cm GESTATIONAL AGE: 33 weeks 6 days US/US OB BPP w non-stress IMPRESSION: Total biophysical profile score: 8 Electronically authenticated by: ROSARIO GARRISON Date: 10/06/2023 07:13 Dictated By: Rosario Garrison M.D. Signed By:10/06/23714 DD/ 2 TD/TT: Remedial Masseur: us Cheyenne Meade DO [facility] Final Result documented in this encounter Visit Diagnoses Not on filedocumented in this encounter
--- OUTSIDE RECORDS SUMMARY | 2024-12-31 14:05 | XMS_ITS | Encounter Summary ---
Author Organization [facility] Address [address] [facility] [place] [address] Care Team Providers Care Cavity Pump Operator Name Role Phone Unavailable Primary Care Provider Unavailabl e Encounter Details Date Type Department Care Team (Late st Contact Info) Description 10/21/2023 Abstract [facility] [address] [facility] [place] [address] Dianna Patel LPN [address] [place] [phone] Social History Tobacco Use Types Packs/Day Years [...] 3:00 PM EDT Routine [facility] [address] [place] [address] Jordan Meade DO [address] [place], [facility] documented as of this encounter Visit Diagnoses Not on filedocumented in this encounter
--- OUTSIDE RECORDS SUMMARY | 2024-12-31 14:05 | XMS_ITS | Encounter Summary ---
Author Organization [facility] Address [address] [facility] [place] [address] Care Team Providers Care Director Data Processing Name Role Phone Unavailable Primary Care Provider Unavailabl e Encounter Details Date Type Department Care Team (Late st Contact Info) Description 10/12/2023 Clinisync Result Encounter N[facility] External Department Unsolicited Cheyenne Meade DO [facility] [place] [phone] Social History Tobacco Use Types Packs/Day Years [...] [facility] [address] [place] [phone] Cheyenne Meade DO [address] [place] [address] [place] [address] documented as of this encounter Procedures Procedure Name Priority Date/Time Associated Diagnosis Comments US OB BPP W NON-STRESS 10/12/2023 12:18 AM EDT documented in this encounter Results * US OB BPP W NON-STRESS (10/12/2023 12:18 AM EDT) Anatomical Region Laterality Modality Other 10/12/2023 12:1 8 AM EDT Narrative 10/12/2023 12:21 [place] [address] Ultrasound Report Signed Patient: ROSSY DOZIER MR#: [id number] : 1990 Acct:[id number] Age/Sex: 32 / F ADM Date: Loc: [facility] 251-[address]: Cheyenne Meade D.O. Ordering Physician: Cheyenne Meade D.O. Date of Service: 10/11/23 Procedure(s): US OB BPP w non-stress Accession Number(s): [id number] cc: Cheyenne Meade D.O.; [place] [address] Patient Name: ROSSY DOZIER MRN: [id number] date: 1990 Sex: F Assigned Patient Location: [facility] Current Patient Location: Accession/Order Number: [id number] Exam Date: 10/11/2023 21:57 Report Date: 10/12/2023 00:18 At the request of: CHEYENNE MEADE Procedure: US OB BPP w non-stress ULTRASOUND OB CERVICAL LENGTH AND US OB BPPWITH NON-STRESS TEST HISTORY: . COMPARISON: Ultrasound OB 10/05/2023. FINDINGS: There is a single intrauterine in the cephalic presentation and longitudinal lie. The cervix measures 3.5 cm and is closed. There is a minimal amount of fluid in the cervical canal. There are heart tones of 147 bpm. The placenta tip is located 2.3 cm from the cervical os. Movement 2 Tone 2 Breathing 2 Fluid 2 US/US OB BPP w non-stress IMPRESSION: Single viable intrauterine privacy; BPP 8/8. Cervix measures 3.5 cm and is closed; minimal amount of fluid within the cervical canal. Electronically authenticated by: OLYA COLLINS Date: 10/12/2023 00:18 Dictated By: Olya Collins M.D. Signed By: 10/12/23 0021 DD/ 0018 TD/TT: Cheese Pancake Roller: Procedure Note Radiology, Radiologist, - 10/12/2023 [place] [address] Ultrasound Report Signed Patient: ROSSY DOZIER NMR#: [id number] : 1990Acct:[id number] Age/Sex: 32 / FADM Date: Loc: [facility] 251-[address]: Cheyenne Meade D.O. Ordering Physician: Cheyenne Meade D.O. Date of Service: 10/11/23 Procedure(s): US OB BPP w non-stress Accession Number(s): [id number] cc: Cheyenne Meade D.O.; [place] [address] Patient Name: ROSSY DOZIER MRN: [id number] date: 1990 Sex: F Assigned Patient Location: [facility] Current Patient Location: Accession/Order Number: [id number] Exam Date: 10/11/2023 21:57 Report Date: 10/12/2023 00:18 At the request of: CHEYENNE MEADE Procedure: US OB BPP w non-stress ULTRASOUND OB CERVICAL LENGTH AND US OB BPPWITH NON-STRESS TEST HISTORY: . COMPARISON: Ultrasound OB 10/05/2023. FINDINGS: There is a single intrauterine in the cephalic presentation and longitudinal lie. The cervix measures 3.5 cm and is closed. There is aminimal amount of fluid in the cervical canal. There are heart tones of 147bpm. The placenta tip is located 2.3 cm from the cervical os. Movement 2 Tone 2 Breathing 2 Fluid 2 US/US OB BPP w non-stress IMPRESSION: Single viable intrauterine privacy; BPP 8/8. Cervix measures 3.5 cm and is closed; minimal amount of fluid within the cervical canal. Electronically authenticated by: OLYA COLLINS Date: 10/12/2023 00:18 Dictated By: Olya Collins M.D. Signed By:10/12/23 0021 DD/ 0018 TD/TT: Cheese Pancake Roller: us Cheyenne Deshaun DO [facility] Final Result documented in this encounter Visit Diagnoses Not on filedocumented in this encounter
--- OUTSIDE RECORDS SUMMARY | 2024-12-31 14:05 | XMS_ITS | Clinical Summary ---
Author Organization [facility] Address [address], [address] [place] [address] Care Team Providers Care Telecommunications Engineer Name Role Phone Opal Cristina MD Primary Care Provider + [phone] Allergies No known active allergies Medications Vit-Fe Fumarate-FA (PREPLUS) 27-1 MG TABS TAKE ONE TABLET BY MOUTH ONCE DAILY FOR 30 DAYS 02/10/2021 Active PROFE 391.3 (180 Fe) MG CAPS TAKE ONE CAPSULE BY MOUTH DAILY 11/17/2021 Active metoprolol succinate (TOPROL XL) 25 MG extended release tabletIndication s:POTS (postural orthostatic tachycardia syndrome) Take 1 tablet by mouth daily 90 tablet 3 10/31/2023 Active omeprazole (PRILOSEC) 20 MG delayed release capsule Take 1 capsule by mouth daily Active Active Problems Problem Noted Date Diagnosed Date BPV (benign positional vertigo) 03/08/2023 Post-COVID syndrome 03/09/2021 Family History Medical History Relation Name Comments Hypertension Brother 3 High Cholesterol Father Hypertension Father Osteoarthritis Father Supraventricular tachycardia Father Diabetes Maternal Grandfather IDDM Diabetes Maternal Grandmother IDDM Aortic Stenosis Mother Coronary Art Dis Mother Diabetes Paternal Grandfather IDDM Stroke Paternal Grandfather Relation Name Status Comments Brother 1 Alive half Brother 2 Alive half Brother 3 Father Alive Maternal Grandfather Maternal Grandmother Mother Alive Paternal Grandfather Paternal Grandmother Sister 1 Alive half Sister 2 Alive half Social History Tobacco Use Types Packs/Day Years Used Date Smoking Tobacco: Never Smokeless Tobacco: Never Alcohol Use Standard Drinks/Week Comments Yes 0 (1 standard drink = 0.6 oz pur e alcohol) occ. Interpersonal Safety Domain Source: IP Abuse Scr eening Answer Date Recorded Read-Only, Retired: Physical Abuse Denies 07/26/2023 Read-Only, Retired: Verbal Abuse Denies 07/26/2023 Read-Only, Retired: Emotional abuse Denies 07/26/2023 Read-Only, Retired: Financial Abuse Denies 07/26/2023 Read-Only, Retired: Sexual abuse Denies 07/26/2023 Comments Unknown Sex and Gender Information Value Date Recorded Sex Assigned at Not on file Legal Sex Female 7:03 AM EDT Gender Identity Not on file Sexual Orientation Not on file Last Filed Vital Signs Vital Sign Reading Time Taken Comments Blood Pressure 114/74 10/31/2023 1:27 PM EDT Pulse 100 10/31/2023 1:27 PM EDT Temperature 37 C (98.6 F) 09/20/2023 9:18 PM EDT Respiratory Rate 18 10/31/2023 1:27 PM EDT Oxygen Saturation 98% 09/20/2023 11:41 PM EDT Inhaled Oxygen Concentration - - Weight 91.2 kg (201 lb) 10/31/2023 1:27 PM EDT Height 172.7 cm (5' 8 ) 10/31/2023 1:27 PM EDT Body Mass Index 30.56 10/31/2023 1:27 PM EDT Plan of Treatment Health Maintenance Due Date Last Done Comments Depression Screen 2004 Varicella vaccine (1 of 2 - 13+ 2-dose series) 2005 HIV screen 10/30/2007 Hepatitis C screen 2010 Pap smear 2013 DTaP/Tdap/Td vaccine (7 - Td or Tdap) 10/08/2020 10/08/2010, 11/18/1997, 01/14/1995, Additional history exists Cervical cancer screen 2022 HPV (without or with Pap) 2022 Flu vaccine (#1) 10/26/2024 COVID-19 Vaccine ( season) 2024 Hepatitis B vaccine Completed 10/28/1993, 05/22/1993, 03/04/1993 Hib vaccine Completed 01/14/1995, 05/1993, 05/22/1993, Additional history exists Polio vaccine Completed 11/18/1997, 05/1993, 05/22/1993, Additional history exists Meningococcal (ACWY) vaccine Completed 10/08/2010 HPV vaccine Completed 04/19/2011, 05/2010, 10/08/2010 Hepatitis A vaccine Completed 04/19/2011, 1 Meningococcal B vaccine Aged Out No l onger eligible based on patient's age to complete this topic Pneumococcal 0-49 years Vaccine Aged Out No longer eligible based on patient's age to complete this topic Insurance [facility] [employer]ON[employer] Care Teams Telecommunications Engineer Relationship Specialty Start Date End Date Opal Cristina MD [address] [place] [address] PCP - General Family Medicine 07/25/23
--- OUTSIDE RECORDS SUMMARY | 2024-12-31 14:05 | XMS_ITS | Encounter Summary ---
Author Organization [facility] Address [address] [facility] [place] [address] Care Team Providers Care Manager Administrative Services Name Role Phone Unavailable Primary Care Provider Unavailabl e Encounter Details Date Type Department Care Team (Late st Contact Info) Description 10/12/2023 Clinisync Result Encounter NOMS External Department Unsolicited Cheyenne Meade DO [address] [place] [phone] Social History Tobacco Use Types Packs/Day Years [...] Description 01/16/2025 3:00 PM EDT Routine [facility] [address] [place] [phone] Cheyenne Meade DO [address] [place] [address] [place] [address] documented as of this encounter Procedures Procedure Name Priority Date/Time Associated Diagnosis Comments US OB CERVICAL LENGTH 10/12/2023 12:18 AM EDT documented in this encounter Results * US OB CERVICAL LENGTH (10/12/2023 12:18 AM EDT) Anatomical Region Laterality Modality Other 10/12/2023 12:1 8 AM EDT Narrative 10/12/2023 12:21 [place] [address] Ultrasound Report Signed Patient: ROSSY DOZIER MR#: [id number] : 1990 Acct:[id number] Age/Sex: 32 / F ADM Date: Loc: [facility] 251-[address]: Cheyenne Meade D.O. Ordering Physician: Cheyenne Meade D.O. Date of Service: 10/11/23 Procedure(s): US OB cervical length Accession Number(s): [id number] cc: Cheyenne Meade D.O.; [place] [address] Patient Name: ROSSY DOZIER MRN: [id number] date: 1990 Sex: F Assigned Patient Location: [facility] Current Patient Location: Accession/Order Number: [id number] Exam Date: 10/11/2023 21:33 Report Date: 10/12/2023 00:18 At the request of: CHEYENNE MEADE Procedure: US OB cervical length ULTRASOUND OB CERVICAL LENGTH AND US OB [...] 2 Breathing 2 Fluid 2 US/US OB cervical length IMPRESSION: Single viable intrauterine privacy; BPP 8/8. Cervix measures 3.5 cm and is closed; minimal amount of fluid within the cervical canal. Electronically authenticated by: OLYA COLLINS Date: 10/12/2023 00:18 Dictated By: Olya Collins M.D. Signed By: 10/12/23 0021 DD/ 0018 TD/TT: Valve Maker: Procedure Note Radiology, Radiologist, - 10/12/2023 [place] [address] Ultrasound Report Signed Patient: ROSSY DOZIER NMR#: [id number] : 1990Acct:[id number] Age/Sex: 32 / FADM Date: Loc: [facility] 251-[address]: Cheyenne Meade D.O. Ordering Physician: Cheyenne Meade D.O. Date of Service: 10/11/23 Procedure(s): US OB cervical length Accession Number(s): [id number] cc: Cheyenne Meade D.O.; [place] [address] Patient Name: ROSSY DOZIER MRN: [id number] date: 1990 Sex: F Assigned Patient Location: [facility] Current Patient Location: Accession/Order Number: [id number] Exam Date: 10/11/2023 21:33 Report Date: 10/12/2023 00:18 At the request of: CHEYENNE MEADE Procedure: US OB cervical length ULTRASOUND OB CERVICAL LENGTH AND US OB [...] 2 Breathing 2 Fluid 2 US/US OB cervical length IMPRESSION: Single viable intrauterine privacy; BPP 8/8. Cervix measures 3.5 cm and is closed; minimal amount of fluid within the cervical canal. Electronically authenticated by: OLYA COLLINS Date: 10/12/2023 00:18 Dictated By: Olya Collins M.D. Signed By:10/12/23 0021 DD/ 0018 TD/TT: Valve Maker: us Cheyenne Meade DO [facility] Final Result documented in this encounter Visit Diagnoses Not on filedocumented in this encounter
--- OUTSIDE RECORDS SUMMARY | 2024-12-31 14:05 | XMS_ITS | Encounter Summary ---
Author Organization [facility] Address [address] [facility] [place] [address] Care Team Providers Care Planer Chain Offbearer Name Role Phone Unavailable Primary Care Provider Unavailabl e Encounter Details Date Type Department Care Team (Late st Contact Info) Description 10/18/2023 Clinisync Result Encounter [facility] External Department Unsolicited Cheyenne Meade DO [address] [place] [id number] Social History Tobacco Use Types Packs/Day Years [...] Routine [facility] [address] [place] [phone] Cheyenne Meade DO [address] [place] [address] documented as of this encounter Procedures Procedure Name Priority Date/Time Associated Diagnosis Comments US OB BPP W NON-STRESS 10/18/2023 7:50 AM EDT documented in this encounter Results * US OB BPP W NON-STRESS (10/18/2023 7:50 AM EDT) Anatomical Region Laterality Modality Other 10/18/2023 7:50 AM EDT Narrative 10/18/2023 7:52 [place] [address] Ultrasound Report Signed Patient: ROSSY DOZIER MR#: [id number] : 1990 Acct:[id number] Age/Sex: 32 / F ADM Date: 10/17/23 Loc: US Attending Dr: Cheyenne Meade D.O. Ordering Physician: Cheyenne Meade D.O. Date of Service: 10/17/23 Procedure(s): US OB BPP w non-stress Accession Number(s): [id number] cc: Cheyenne Meade D.O.; [place] [address] Patient Name: ROSSY DOZIER MRN: [id number] date: 1990 Sex: F Assigned Patient Location: [facility] Current Patient Location: Accession/Order Number: [id number] Exam Date: 10/17/2023 17:33 Report Date: 10/18/2023 07:50 At the request of: CHEYENNE MEADE Procedure: US OB BPP w non-stress EXAMINATION: US OB BPP w non-stress HISTORY:THIRD TRIMESTER Z34.93 COMPARISON: Ultrasound OB biophysical 10/11/2023 TECHNIQUE: Ultrasound biophysical profile was performed in the radiology department. BREATHING MOVEMENTS: 2 GROSS BODY MOVEMENTS: 2 TONE: 2 QUALITATIVE AMNIOTIC FLUID VOLUME: 2 PRESENTATION: CEPHALIC HEART RATE: 128.57 bpm AMNIOTIC FLUID VOLUME: 13.09 cm GESTATIONAL AGE: 89 Day US/US OB BPP w non-stress IMPRESSION: Total biophysical profile score: 8 Electronically authenticated by: YOGI HUBBARD Date: 10/18/2023 07:50 Dictated By: Yogi Hubbard M.D. Signed By: 10/18/23751 DD/ 9 TD/TT: Barrel Plater: Procedure Note Radiology, Radiologist, - 10/18/2023 [place] [address] Ultrasound Report Signed Patient: ROSSY DOZIER NMR#: [id number] : 1990Acct:[id number] Age/Sex: 32 / FADM Date: 10/17/23 Loc: US Attending Dr: Cheyenne Meade D.O. Ordering Physician: Cheyenne Meade D.O. Date of Service: 10/17/23 Procedure(s): US OB BPP w non-stress Accession Number(s): [id number] cc: Cheyenne Meade D.O.; [place] [address] Patient Name: ROSSY DOZIER MRN: [id number] date: 1990 Sex: F Assigned Patient Location: [facility] Current Patient Location: Accession/Order Number: [id number] Exam Date: 10/17/2023 17:33 Report Date: 10/18/2023 07:50 At the request of: CHEYENNE MEADE Procedure: US OB BPP w non-stress EXAMINATION: US OB BPP w non-stress HISTORY:THIRD TRIMESTER Z34.93 COMPARISON: Ultrasound OB biophysical 10/11/2023 TECHNIQUE: Ultrasound biophysical profile was performed in the radiology department. BREATHING MOVEMENTS: 2 GROSS BODY MOVEMENTS: 2 TONE: 2 QUALITATIVE AMNIOTIC FLUID VOLUME: 2 PRESENTATION: CEPHALIC HEART RATE: 128.57 bpm AMNIOTIC FLUID VOLUME: 13.09 cm GESTATIONAL AGE: 89 Day US/US OB BPP w non-stress IMPRESSION: Total biophysical profile score: 8 Electronically authenticated by: YGOI HUBBARD Date: 10/18/2023 07:50 Dictated By: Yogi Hubbard M.D. Signed By:10/18/23751 DD/ 9 TD/TT: Barrel Plater: us Cheyenne Meade DO [facility] Final Result documented in this encounter Visit Diagnoses Not on filedocumented in this encounter
--- OUTSIDE RECORDS SUMMARY | 2024-12-31 14:05 | XMS_ITS | Encounter Summary ---
Author Organization [facility] Address [address] [facility] [[email or web address]] [place] [address] Care Team Providers Care Frame Tender Name Role Phone Unavailable Primary Care Provider Unavailabl e Encounter Details Date Type Department Care Team (Late st Contact Info) Description 10/18/2023 Clinisync Result Encounter [facility] External Department Unsolicited Cheyenne Meade DO [address] [place] [phone] Social History Tobacco Use Types Packs/Day Years [...] Routine [facility] [address] [place] [phone] Cheyenne Meade DO [address] [place] [address] [place] [address] documented as of this encounter Procedures Procedure Name Priority Date/Time Associated Diagnosis Comments US OB GROWTH 10/18/2023 2:11 PM EDT [facility] BOX TEST SENT OUT Routine 10/18/2023 1:41 PM EDT documented in this encounter Results * US OB GROWTH (10/18/2023 2:11 PM EDT) Anatomical Region Laterality Modality Other 10/18/2023 2:11 PM EDT Narrative 10/18/2023 2:14 [place] [address] Ultrasound Report Signed Patient: ROSSY DOZIER MR#: [id number] : 1990 Acct:[id number] Age/Sex: 32 / F ADM Date: 10/18/23 Loc: NOMS Attending Dr: Cheyenne Meade D.O. Ordering Physician: Cheyenne Meade D.O. Date of Service: 10/18/23 Procedure(s): US OB growth Accession Number(s): [id number] cc: Cheyenne Meade D.O.; [place] [address] Patient Name: ROSSY DOZIER MRN: [facility]:[id number] date: 1990 Sex: F Assigned Patient Location: [facility] Current Patient Location: [facility] Accession/Order Number: [id number] Exam Date: 10/18/2023 13:10 Report Date: 10/18/2023 14:11 At the request of: CHEYENNE MEADE Procedure: US OB growth EXAMINATION: US OB growth HISTORY: SIZE INCONSISTENT WITH DATES COMPARISON: No relevant comparison available. FINDINGS: Heart Rate: 166 bpm Amniotic Fluid Volume: 10.0 cm; normal range. Number: 1 Position: CEPHALIC BIOMETRY: BPD: 8.70 cm; 35 weeks 1 day; 39 % HC: 32.11 cm; 36 weeks 2 days; 30.20 % AC: 33.28 cm; 37 weeks 1 day; 91.10 % FL: 7.25 cm; 37 weeks 1 day; 79.50 % EFW: 2882.49 g; 79.60 % FL/AC: 21.78 FL/BPD: 83.33 HC/AC: 0.96 GESTATIONAL AGE: Age by EDC: 35 weeks 5 days GUNJAN by EDC: 2023-11-17 Age by US: 36 weeks 3 days GUNJAN by US: 2023-11-12 US/US OB growth IMPRESSION: 1. Single live intrauterine with growth detailed above. Electronically authenticated by: YOGI HUBBARD Date: 10/18/2023 14:11 Dictated By: Yogi Hubbard M.D. Signed By: 10/18/23 1414 DD/ 10 TD/TT: Pediatric Dietician: Procedure Note Radiology, Radiologist, MD - 10/18/2023 [place] [address] Ultrasound Report Signed Patient: ROSSY DOZIER NMR#: [id number] : 1990Acct:[id number] Age/Sex: 32 / FADM Date: 10/18/23 Loc: [facility]OMS Attending Dr: Cheyenne Meade D.O. Ordering Physician: Cheyenne Meade D.O. Date of Service: 10/18/23 Procedure(s): US OB growth Accession Number(s): [id number] cc: Cheyenne Meade D.O.; [place] [address] Patient Name: ROSSY DOZIER MRN: [id number] date: 1990 Sex: F Assigned Patient Location: [facility] Current Patient Location: [facility] Accession/Order Number: [id number] Exam Date: 10/18/2023 13:10 Report Date: 10/18/2023 14:11 At the request of: CHEYENNE MEADE Procedure: US OB growth EXAMINATION: US OB growth HISTORY: SIZE INCONSISTENT WITH DATES COMPARISON: No relevant comparison available. FINDINGS: Heart Rate: 166 bpm Amniotic Fluid Volume: 10.0 cm; normal range. Number: 1 Position: CEPHALIC BIOMETRY: BPD: 8.70 cm; 35 weeks 1 day; 39 % HC: 32.11 cm; 36 weeks 2 days; 30.20 % AC: 33.28 cm; 37 weeks 1 day; 91.10 % FL: 7.25 cm; 37 weeks 1 day; 79.50 % EFW: 2882.49 g; 79.60 % FL/AC: 21.78 FL/BPD: 83.33 HC/AC: 0.96 GESTATIONAL AGE: Age by EDC: 35 weeks 5 days GUNJAN by EDC: 2023-11-17 Age by US: 36 weeks 3 days GUNJAN by US: 2023-11-12 US/US OB growth IMPRESSION: 1. Single live intrauterine with growth detailed above. Electronically authenticated by: YOGI HUBBARD Date: 10/18/2023 14:11 Dictated By: Yogi Hubbard M.D. Signed By:10/18/231413 DD/ 10 TD/TT: Pediatric Dietician: us Cheyenne Meade DO [facility] Final Result * TB BOX TEST SENT OUT (10/18/2023 1:41 PM EDT) BOX TEST SENT OUT [facility] Comment:SEE SCANNED REPORT 10/18/2023 1:41 PM EDT 10/19/2023 7:33 AM EDT Narrative [facility] - 10/26/2023 2:51 PM EDT [id number] Reanna PUENTE [facility] documented in this encounter Visit Diagnoses Not on filedocumented in this encounter
--- OUTSIDE RECORDS SUMMARY | 2024-12-31 14:05 | XMS_ITS | Patient Health Record ---
Author Organization [facility] [place] Address [address] [place] [address] Care Team Providers Care Billing Adjudicator Name Role Phone Cristina Opal Primary Care Provider Allergies No Known Allergies Reason For Referral No Information Medications Medication SIG (Take, Route, Frequency, Duration) Notes Start Date End Date Status Metoprolol Succinate ER 25 MG 1 tablet Oral Once a day; Duration: 30 days Active Ibuprofen 800 MG 1 tablet with food o r milk as needed Orally every 8 hrs; Duration: 30 days 11/15/2023 Active Azithromycin 250 MG 2 tabs today, then 1 tab daily for 4 more days Orally Once a day; Duration: 5 day(s) 04/23/2024 Not-Taking Amoxicillin-Pot Clavulanate 875-125 MG 1 tablet Orally every 12 hrs; Duration: 10 days 05/30/2024 Not-Taking Vitamin D Active Active Social History Tobacco Use: Social History Observation Description Date Details (start date - stop date) Never Smoker NA - NA Tobacco Use/Smoking Question Answer Notes Patient is a nonsmoker Alcohol Screen (Audit-C) Question Answer Notes Did you have a drink containing alcohol in the p ast year? No Points 0 Interpretation Negative Problems Problem Type SNOMED Code ICD Code Onset Dates Problem Status W/U Status Risk Notes Problem Paresthesia (finding) (14529341) Paresthesia of skin (R20.2) Active confirmed Problem Postural orthostatic tachycardia syndrome (disorder) (990756076) Postural orthostatic tachycardia syndrome [POTS] (G90.A) Active confirmed Vital Signs Heart Rate 89 /min 10/03/2024 weight down 15 pounds in last 6months Respiratory Rate 16 /min 10/03/2024 weight down 15 pounds in last 6months Oximetry 96 % 10/03/2024 weight down 15 pounds in last 6months Blood pressure diastolic 72 mm Hg 10/03/2024 palma ght down 15 pounds in last 6months Height 68 in 10/03/2024 weight down 15 pounds in last 6months Blood pressure systolic 102 mm Hg 10/03/2024 weig ht down 15 pounds in last 6months Weight 164.8 lbs 10/03/2024 weight down 15 pounds in last 6months BMI 25.06 kg/m2 10/03/2024 weight down 15 pounds in last 6months Encounters Encounter Location Date Provider Diagnosis [place] [address] [place] [address] 10/03/2024 Opal Cristina Postural orthostatic tachycardia syndrome [POTS] G90.A ; Anesthesia of skin R20.0 ; Paresthesia of skin R20.2 and Other fatigue R53.83 [place] [address] [place] [address] 04/23/2024 Opal Cristina Acute recurrent maxillary sinusitis J01.01 [place] [address] [place] [address] 05/30/2024 Opal Cristina Assessments Encounter Date Diagnosis (ICD Code) Assessment Notes Treatment Notes Treatment Clinical Notes Section Notes 04/23/2024 Acute recurrent maxillary sinusitis (ICD-10 - J01.01) 10/03/2024 Postural orthostatic tachycardia syndrome [POTS] (ICD-10 - G90.A) 10/03/2024 Anesthesia of skin (ICD-10 - R20.0) 10/03/2024 Paresthesia of skin (ICD-10 - R20.2) 10/03/2024 Other fatigue (ICD-10 - R53.83) Plan Of Treatment Pending Test Test Name Order Date VITAMIN D, 25 LEVEL (TOTAL) 10/03/2024 T4 FREE and TSH 10/03/2024 SED RATE and CRP 10/03/2024 CMP (COMP [place]) w/eGFR CKD-EPI 2024 CBC WITH DIFF 10/03/2024 Insurance Providers Payer Name Payer Address Payer Phone Subscriber Number Group Number Insured Name Patient Relationship to Insured Coverage Start Date Coverage End Date [employer] [address] [place] [id number] Rossy Gutierrez Self - patient is the insured 2 Medical (General) History Medical History History ICD Code POTS Right neck/scalp lymphadenopathy - 08/17 Surgical History Surgery Date(Month/Year) 4th degree tear repari Dr Meade 01/16 Breast augmentation- Dr Goodman 07/14
--- OUTSIDE RECORDS SUMMARY | 2024-12-31 14:05 | XMS_ITS | Encounter Summary ---
Author Organization [facility] Address [address] [facility] [place] [address] Care Team Providers Care Eggs Inspector Name Role Phone Unavailable Primary Care Provider Unavailabl e Encounter Details Date Type Department Care Team (Late st Contact Info) Description 10/19/2023 Abstract [facility] [address] [place] [address] [place] [id number] Jordan Meade DO [address], [place] [address] Social History Tobacco Use Types Packs/Day Years [...] 01/16/2025 3:00 PM EDT Routine [facility] [place] [phone] Jordan Meade DO [address], [facility] documented as of this encounter Visit Diagnoses Not on filedocumented in this encounter
--- OUTSIDE RECORDS SUMMARY | 2024-12-31 14:11 | XMS_ITS | CCD ---
Author Organization [facility] Care Team Providers Care Wheel Blocker Name Role Phone Rae LOPEZ Nick Primary Care Provider Cristal Guidry [...] DR TUCKER Primary Care Unavailable ZIEBER, DR AILYN Witt Consulting Unavailable DESHAUN ., DR QUINN Consulting Unavailable DESHAUN ., DR QUINN Attending Unavailable DESHAUN ., DR QUINN Admitting Unavailable BALL, DR TUCKER Primary Care Unavailable DESHAUN ., DR QUINN Admitting Unavailable DESHAUN ., DR QUINN Attending Unavailable DESHAUN ., DR QUINN Consulting Unavailable RAE, DR TUCKER Primary Care Unavailable DESHAUN ., DR QUINN Admitting Unavailable DESHAUN ., DR QUINN Attending Unavailable RAE, DR TUCKER Primary Care Unavailable JC, DR CAMILO Witt Consulting Unavailable JC, DR CAMILO Witt Attending Unavailable JC, DR CAMILO Witt Admitting Unavailable RAE, DR TUCKER Primary Care Unavailable DERIC VO Consulting Unavailable GLENN ., BRENT Consulting Unavailable ROSARIO HERNANDEZ Consulting Unavailable ARE, DR TUCKER Primary Care Unavailable KARASIK ., [...] DR MARK LISTED Primary Care Unavaila ble ZIALISA, DR AILYN Witt Consulting Unavailable DESHAUN ., DR QUINN Admitting Unavailable DESHAUN ., DR QUINN Consulting Unavailable DESHAUN ., DR QUINN Attending Unavailable BALL, DR TUCKER Primary Care Unavailable DESHAUN ., DR QUINN Attending Unavailable DESHAUN ., DR QUINN Admitting Unavailable DESHAUN ., DR QUINN Consulting Unavailable BALL, DR TUCKER Primary Care Unavailable ZIEBER, DR AILYN Witt Consulting Unavailable DESHAUN ., DR QUINN Attending Unavailable DESHAUN ., DR QUINN Admitting Unavailable DESHAUN ., DR QUINN Consulting Unavailable BALL, DR TUCKER Primary Care Unavailable ZIEBER, DR AILYN Witt Consulting Unavailable Nick Leonardo Unavailable AILYN MARQUEZ Attending Unavailable AILYN MARQUEZ Referring Unavailable MOISES OPAL A Primary Care Unavailable MOISES, POAL A Primary Care Unavailable BRITTNI WILLIAM Attending Unavailable OPAL CRISTINA Primary Care Unavailable AILYN MARQUEZ Attending Unavailable AILYN MARQUEZ Referring Unavailable MOISES OPAL Samantha Primary Care Unavailable Unavailable Primary Care Provider UnavailOpal Vann MD Primary Care Provider [phone] Antonio Emery Attending Unavailable Antonio Emery Attending Unavailable JORDAN MEADE Attending Unavailable JORDAN MEADE Referring Unavailable REANNA SADLER Attending Unavailable Medications Current Medications Medication Drug Class(es) Dates Sig (Normalized) Sig (Original) ibuprofen 800 mg oral tablet (5 sources) [...] (Other) metoprolol tartrate 25 mg oral tablet (17 sources) beta-Adrenergic Ekta Start: 01-11-2024 take 25 [...] a day Active Metoprolol Succi brooke Active ondansetron 4 mg disintegrating oral tablet (3 sources) Serotonin-3 Receptor Antagonist Start: 12-06-2024 End: 01-05-2025 take 1 tablet by mouth every six hours as needed for nausea and vomiting and nausea and nausea ondansetron ODT (Zofran-ODT) 4 MG disintegrating tablet Indications: Nausea Take 1 tablet (4 mg) by mouth every 6 (six) hours if needed for nausea or vomiting 30 tablet 2 12/06/2024 01/05/2025 Active Pnv,Calcium 08-Hxhe-Fsdkr Acid ( Vitamin Plus Low Iron) 27 mg iron- 1 mg tablet (1 source) Start: 01-11-2024 take 1 tablet by mouth once daily Pnv,Calcium 35-Kfkc-Uuyju Acid ( Vitamin Plus Low Iron) 27 [...] Vit-Fe Fumarate-FA ( Vitamins) 28-0.8 MG tablet (8 sources) Start: 11-17-2023 End: 11-16-2024 take 1 [...] DAY FOR 7 DAYS 10/31/2023 11/16/2023 Discontinued drospirenone 4 mg oral tablet (9 sources) Progestin Start: 04-03-2024 End: 07-11-2025 take 1 tablet by mouth once daily Drospirenone (Slynd) 4 MG tablet Indications: Abnormal uterine bleeding (AUB) Take 4 mg by mouth Daily 28 tablet 11 07/11/2024 12/20/2024 Discontinued (Therapy completed) ferrous sulfate 325 mg oral tablet (3 [...] by mouth Daily 12/15/2023 12/20/2023 Discontinued (Other) Arwyrqei-Tzu-Hq-FA (, w/Iron & FA,) 27-0.8 MG tablet (5 sources) End: 12-20-2023 take 1 tablet by mouth once daily Mutqjhtk-Tuf-Yj-FA (, w/Iron & FA,) 27-0.8 MG tablet Take 1 each by mouth 1 (one) time each day at the same time 12/20/2023 Discontinued (Other) take 1 tablet by mouth once poli y Jponhncl-Jdl-Wd-FA (, w/Iron & FA,) 27-0.8 MG tablet [...] Translations: [Hypo-osmolality and hyponatremia] Onset: 07-26-2023 Episodic Hemorrhage during ; abruptio placenta; placenta previa (7 sources) Low lying placenta NOS or without hemorrhage, unspecified trimester; Translations: [Low lying placenta NOS or without hemorrhage, second trimester] Onset: 09-18-2021 Episodic Immunizations and screening for infectious disease (7 sources) Contact with and (suspected) exposure to other viral communicable diseases; Translations: [Encounter for screening for human papillomavirus (HPV)] Onset: 08-20-2021 Episodic Lymphadenitis (1 source) Localized enlarged lymph nodes Episodic Menstrual disorders (2 sources) Amenorrhea; Translations: [Amenorrhea, unspecified] 12-20-2024 Chronic Nausea and vomiting (3 sources) Nausea; Translations: [Nausea] 01-11-2024 Episodic Other circulatory [...] 03-09-2021 Chronic Other and delivery including normal (16 sources) Encounter for routine follow-up; Translations: [Single live ] Onset: 09-04-2021 Episodic Other skin disorders (1 source) Sebaceous cyst Episodic Other upper respiratory infections (4 sources) Acute pharyngitis, unspecified; Translations: [Acute upper respiratory infection, unspecified] Episodic Residual codes; unclassified (1 source) Personal history of other specified conditions; Translations: [Personal history of other specified conditions] Onset: 07-28-2023 Episodic Residual codes; unclassified (1 source) Gestation period, 9 weeks; Translations: [9 weeks gestation of ] 12-20-2024 Episodic Skin and subcutaneous tissue infections (1 [...] Translations: [Dizziness and giddiness] Onset: 03-08-2023 Episodic Nonspecific chest pain (2 sources) Chest [...] Facility HCG ( test) Ql (U)o n 12-20-2024 Interpretation and review of laboratory results Abnormal [facility] Preg Test, Ur Positive Negative [facility] Health [facility] US OB TRANSVAGINALon 025 US OB TRANSVAGINAL FINDINGS: A single intrauterine gestational sac is [...] BY: ELECTRONICALLY SIGNED BY: Kalpesh Louis MD Normal Not Available Comment on above: Order Comment: US OB VIABILITY PLEASE PERFORM TRANSVAGINAL ULTRASOUND IF INDICATED Patient's last menstrual period was 10/17/2024. US Pelvis transvaginalon Findings consistent with a live intrauterine gestation, current sonographic age of 8 weeks and 4 days resulting in an estimated date of delivery of July 28, 2025. TRANSCRIBED BY: ELECTRONICALLY SIGNED BY: Kalpesh Louis MD IMAGING FINDINGS: A single intrauterine gestational sac is [...] mass present. Cervical length is 5.0 cm. IMAGING Kalpesh Louis MD - 12/20/2024 FINDINGS: A [...] BY: ELECTRONICALLY SIGNED BY: Kalpesh Louis MD [facility] Radiology Study observation (narrative) [facility] US Pelvis transvaginalOrdere d By: Kalpesh Louis on 12-20-2024 [facility] Work Phone: Urinalysis macro (dipstick) panel (U)on 12-20-2024 Bilirubin, UA Negative Negative - 4(70) +++ mg/dL [facility] Blood, UA Negative Negative - 50 Drake/mcL [facility] Clarity, UA Clear [facility] Color, UA Yellow [facility] Glucose, UA Negative Negative - 1999(110) ++++ mg/dL [facility] Interpretation and review of laboratory results Abnormal [facility] Ketones, UA Negative Negative - 160(16) ++++ mg/dL [facility] Leukocytes, UA 2+ Negative - 500+++ Dasia/mcL [facility] Nitrite, UA Negative Negative - Positive [facility] pH, UA 6 5 - 9 [facility] Protein, UA Negative Negative - 1999(20) ++++ mg/dL [facility] Spec Grav, UA 1.025 1 - 1.03 [facility] Urobilinogen, UA 1.0 0.2 - 12 mg/dL [facility] 12-14-19 ED Note-Physician ED Note-Physician Basic Information Time Seen: Arpit ABREU, Keny Wright. 11/28/2024 21:32 Chief Complaint Pt. is 6 weeks reporting vaginal bleeding/spotting and cramping started 2 hours ago. History of Present Illness A 34-year-old female who is G3, P2 reports to the ED with concerns of vaginal bleeding and spotting. Reports that she is approximately 6 weeks . Does follow-up with Dr. Meade. Reports that the bleeding and spotting started about 2 hours ago. Reports that he also had cramping. Reports the cramping is, gone away, but now having heavier bleeding. Reports not on any medications. Has never had anything like this before with her pregnancies. Denies any nausea or vomiting. No urinary symptoms. No back pain. Has never had a RhoGAM shot. Review of Systems No other aggravating or relieving factors no other associated symptoms no other prior treatments or complaints. Family: Reviewed and noncontributory Social: lives at home Review of systems negative unless otherwise specified in the HPI. Physical Exam Vitals & Measurements T: 36.5 ???C(Oral) HR: 91(Peripheral) RR: 18 BP: 108/65 SpO2: 100% HT: 170 cm WT: 75.3 kg BMI: 26.06 General: The patient appears well and in no apparent distress. Patient is resting comfortably on bed. Afebrile.. Skin: Warm, dry, no pallor noted. Head: Normocephalic, atraumatic Neck: No JVD Eye: PERRLA, EOMI ENT: Moist mucus membranes Cardiovascular: Regular rate. normal peripheral perfusion Respiratory: No respiratory distress. no accessory muscle use. no obvious audible wheezing Chest Wall: no deformity Musculoskeletal: normal ROM, no deformity, no swelling GI: No obvious distention. Abdomen soft. No rebound tenderness or guarding noted. Neurological: A&O. moves all extremities equal strength and symmetry Psychiatric: Cooperative and appropriate Medical Decision Making 34-year-old female reports to the ED with concerns of bleeding during her first trimester. She is approximately 6 weeks . The started about 2 hours ago./Cramping associated with this, but has decreased. Exam here is relatively benign. No acute findings. Due to concerns though, we did do lab work as well as ultrasound. Lab work reviewed noted. Her beta quantitative level is 5866. Urinalysis is concerning for mild UTI. Will treat with Keflex. We did do an ultrasound that did show yolk sac intact. The cervix is closed. There was a heterogeneous area per pest control chemical technician, but no obvious at this time. I discussed these findings with the patient. I discussed that she needs to continue to trend her beta quantitative levels. Discussed return precautions. Discussed follow-up with LEATHER CRAFTSMAN. She was understanding and grateful. Follow-up with your primary care provider in 3 to 5 days. If symptoms worsen, do not improve, or new symptoms arise please report back to emergency department for further evaluation. The patient was understanding and agreeable to plan moving forward. Assessment/Plan First trimester bleeding (O20.9: Hemorrhage in early , unspecified) UTI (urinary tract infection) (N39.0: Urinary tract infection, site not specified) Orders: cephalexin, 500 mg = 1 cap(s), Oral, q12hr, # 20 cap(s), Refills(s) 0, Pharmacy: [facility], 170, cm, 11/28/24 21:20:00 EDT, Height/Length Dosing, 75.3, kg, 11/28/24 21:20:00 EDT, Weight Dosing cephalexin, 500 mg = 1 cap(s), Cap, Oral, Once, Stop date 11/28/24 23:48:00 EDT, STAT, Start date 11/28/24 23:48:00 EDT, 11/28/24 23:48:00 EDT ABO/Rh Basic Metabolic Panel CBC w/ Auto Diff eGFR UA with Cult Rflx Urine Culture US 1st Trimester Disposition Plan Patient Discharge Condition stable Discharge Disposition to home Discharge Prescription List Prescriptions Keflex 500 mg Cap, 500 mg= 1 cap(s), Oral, q12hr Follow-up With When Contact Information Jordan MEADE In 3 days 12/01/[address] [place] [address] Business (1) Additional Instructions: Call Dr for diagnosis based follow up. Try to get a repeat Beta hCG quantitative level drawn in 2 days. Patient Education Vaginal Bleeding During , First Trimester Attestation Patient seen and evaluated by the physician bilingual sales assistant. Attending physician was present in the emergency department and supervised care. This visit was performed by both the physician and an APC. I performed all aspects of the MDM as documented. This report was transcribed using voice recognition software. Every effort was made to ensure accuracy, however, inadvertently computerized architectural draftsperson mistakes may be present. Appropriate healthcare PPE was used in evaluating this patient. The patient was placed in a mask. The healthcare provider was wearing mask, gloves, and utilizing proper hand hygiene. All equipment was properly cleansed. I performed a substantive part of the MDM during the patient???s E/M visit. I personally m (more content not included)... Normal [facility] Comment on above: Result Comment: Elec tronically Signed By: Keny Munson PA-C\.br\Date and Time Signed: 11/28/24 23:53 EDT\.br\Electronically Co-Signed By: Antonio Emery MD\.br\Date and Time Co-Signed: 12/13/24 07:09 EDT HCG ( test) Ql (U)o n 12-06-2024 Interpretation and review of laboratory results Abnormal [facility] Preg Test, Ur Positive Negative [facility] US OB TRANSVAGINALon 025 US OB TRANSVAGINAL FINDINGS: Two intrauterine gestational sacs, both containing a double decidual reaction which can be normal for this age. Only one (1.7 cm length ) contains a yolk sac and pole crown-rump length 7 mm consistent with a 6 week and 4 day gestational age, cardiac activity identified 118 bpm. The second sac demonstrates a slight reduction in size (1.5 cm) and demonstrates no pole or gestational sac located close to the closed internal cervical os. Cervical length 4.3 cm IMPRESSION: One intrauterine gestational sac that contains a viable pole, 6 weeks and 3 days resulting in estimate delivery of July 29, 2025. TRANSCRIBED BY: ELECTRONICALLY SIGNED BY: Kalpesh Louis MD Normal Not Available Comment on above: Order Comment: US OB TRANSVAGINAL No LMP recorded. C Urineon 12-01-2024 Bacteria identified Cx Nom (U) Microbiology PROCEDURE: Urine Culture [R1] SOURCE: U CleanCatch BODY SITE: COLLECTED DATE/TIME: 11/28/2024 21:59 EDT RECEIVED DATE/TIME: 11/29/2024 00:21 EDT START DATE/TIME: 11/29/2024 00:21 EDT FREE TEXT SOURCE: Arpit ABREU, Keny Wright. Arpit ABREU, Keny Wright. FINAL REPORTS Final Report [] Verified Date/Time: 12/01/2024 06:42 EDT 600 cfu/ml Mixed skin contaminants Performing Locations R1: This test was performed at: [facility], [address] [place] [address], [address] , [place], Normal [facility] Comment on above: Performed By: #### 2 [id number] #### [facility] [address] [place] [address] 1st Trimesteron 11-29-2024 US 1st Trimester Exam Date/Time: 11/28/2024 23:49 EDT Reason for Exam: Vaginal bleeding Report IMPRESSION: EARLY INTRAUTERINE CORRESPONDING TO Composite Ultrasound Age: 5 weeks, 1 days, BY MEAN SAC DIAMETER. UP TO APPROXIMATELY 2.7 CM SUBCHORIONIC HEMORRHAGE/HEMATOMA INFERIOR TO THE GESTATIONAL SAC. NO OTHER FINDINGS OF CONCERN IDENTIFIED. EXAM: US 1st Trimester, US Transvaginal DATE: 11/28/2024 11:01 PM CLINICAL HISTORY: Vaginal bleeding. LMP: 10/17/2024. Gestational Age by LMP: 6 weeks, 0 days Technologist Comments: Pt c/o spotting with pelvic cramping this evening. HX C section x 1 COMPARISON: None available for this . TECHNIQUE: Transabdominal ultrasound was performed to visualize the entirety of the pelvis. Transvaginal scanning was performed to provide better detail of the uterus and ovaries. FINDINGS: The study is mild to moderately limited by the patient's body habitus. A first trimester gestational sac is present within the central aspect of the uterine body/fundus, without with an approximately 2.7 x 1.7 x 1.2 cm subchorionic hemorrhage inferiorly. The mean sac diameter is 0.5 cm, which corresponds Composite Ultrasound Age: 5 weeks, 1 days, +/- 1 week. The estimated date of delivery by measurements is: GUNJAN from average ultrasound age: 0507/30/2025. The GUNJAN from LMP: 07/24/2025. There is no discrete pole, yolk sac or cardiac activity identified. There is no significant free pelvic fluid, or other findings of concern identified. Both ovaries appear within normal limits, with an approximately 1.7 cm probable left ovarian corpus luteum cyst. Report Equivalent blood flow is demonstrated on Doppler analysis. Prominent vasculature in noted both adnexa is probably within normal limits. The uterus measurements and an estimated volume are: Uterus Length: 10.0 cm Uterus Width: 6.6 cm Uterus Height: 4.3 cm Uterus Volume: 147.5 cm3 The right ovary measurements and estimated volume are: Right Ovary Length: 2.4 cm Right Ovary Width: 1.5 cm Right Ovary Height: 1.6 cm Right Ovary Volume: 2.9 cm3 The left ovary measurements and estimated volume are: Left Ovary Length: 3.1 cm Left Ovary Width: 1.8 cm Left Ovary Height: 2.6 cm Left Ovary Volume: 7.5 cm3 Ordering Provider: Keny Munson FINAL REPORT Dictated: 11/29/2024 9:44 am Lyndon Garcia MD Signed (Electronic Signature): 11/29/2024 9:44 am Signed by: Lyndon Garcia MD Transcribed by: VANESA Technologist: KAELA Santizo [facility] US Transvaginalon 11-29-2024 US Transvaginal Exam Date/Time: 11/28/2024 23:53 EDT Reason for Exam: Vaginal Bleeding Report PLEASE SEE US 1st Trimester REPORT DATED: 11/28/2024. Ordering Provider: Keny Munson FINAL REPORT Dictated: 11/29/2024 9:44 am Lyndon Garcia MD Signed (Electronic Signature): 11/29/2024 9:44 am Signed by: Lyndon Garcia MD Transcribed by: VANESA Technologist: KAELA [facility] ABO/Rhon 11-28-2024 ABO/Rh Positive Invalid Interpretation Code [facility] Comment on above: Performed By: #### 2 [id number] #### [facility] [address] [place] [address] BMPon 11-28-2024 Anion gap [Moles/Vol] 10 mmol/L Normal 6-16 [facility] Comment on above: Performed By: #### 2 [id number] #### [facility] [address] [place] [address] BUN/Creat Ratio 20 No Units Normal 10-20 [facility] Comment on above: Performed By: #### 2 [id number] #### [facility] [address] [place] [address] Calcium [Mass/Vol] 8.9 mg/dL Normal 8.9-11.1 [facility] Comment on above: Performed By: #### 2 [id number] #### [facility] [address] [place] [address] Chloride [Moles/Vol] 106 mmol/L Normal 101-111 [facility] Comment on above: Performed By: #### 2 [id number] #### [facility] [address] [place] [address] CO2 [Moles/Vol] 24 mmol/L Normal 21-31 [facility] Comment on above: Performed By: #### 2 [id number] #### [facility] [address] [place] [address] Creatinine [Mass/Vol] 0.6 mg/dL Normal 0.5-1.3 [facility] Comment on above: Performed By: #### 2 [id number] #### [facility] [address] [place] [address] Glucose [Mass/Vol] 112 mg/dL Normal 55-199 [facility] Comment on above: Performed By: #### 2 [id number] #### [facility] [address] [place] [address] Potassium [Moles/Vol] 3.2 mmol/L Low 3.5-5.3 [facility] Comment on above: Performed By: #### 2 [id number] #### [facility] [address] [place] [address] Sodium [Moles/Vol] 137 mmol/L Normal 135-145 [facility] Comment on above: Performed By: #### 2 [id number] #### [facility] [address] [place] [address] Urea nitrogen [Mass/Vol] 12 mg/dL Normal 5-21 [facility] Comment on above: Performed By: #### 2 [id number] #### [facility] [address] [place] [address] BhCG Quanton 11-28-2024 Beta hCG Qnt 5866 mIU/mL High 1-[address] [facility] Comment on above: Result Comment: 'F N ON < 1 - 3' ' 0.2 - 1 WEEK = 5 TO 50' ' 1 - 2 WEEKS = 50 - 500' ' 2 - 3 WEEKS = 100 - 5000' ' 3 - 4 WEEKS = 500 - 47046' ' 4 - 5 WEEKS = 1000 - 36876' ' 5 - 6 WEEKS = 32461 - 368019' ' 6 - 8 WEEKS = 57213 - 291242' ' 8 - 12 WEEKS = 87062 - 685005' Performed By: #### 2 [id number] #### [facility] [address] [place] [address] CBC w/ Auto Diffon 5 Basophil Absolute 0.0 E9/L Normal 0.0-0.2 [facility] Comment on above: Performed By: #### 2 [id number] #### [facility] [address] [place] [address] Basophils/100 WBC (Bld) 0.4 % Normal 0.0-2.0 [facility] Comment on above: Performed By: #### 2 [id number] #### [facility] [address] [place] [address] Eos Absolute 0.2 E9/L Normal 0.0-0.5 [facility] Comment on above: Performed By: #### 2 [id number] #### [facility] [address] [place] [address] Eosinophils/100 WBC (Bld) 1.8 % Normal 0.0-8.0 [facility] Comment on above: Performed By: #### 2 [id number] #### [facility] [address] [place] [address] Erythrocyte distribution width (RBC) [Ratio] 13.8 % Normal 10.9-14.2 [facility] Comment on above: Performed By: #### 2 [id number] #### [facility] [address] [place] [address] Hematocrit (Bld) [Volume fraction] 34.3 % Normal 34.0-46.0 [facility] Comment on above: Performed By: #### 2 [id number] #### [facility] [address] [place] [address] Hemoglobin (Bld) [Mass/Vol] 12.1 g/dL Normal 12.0-16.0 [facility] Comment on above: Performed By: #### 2 [id number] #### [facility] [address] [place] [address] Lymph Absolute 2.1 E9/L Normal 1.0-4.0 [facility] Comment on above: Performed By: #### 2 [id number] #### [facility] [address] [place] [address] Lymphocytes/100 WBC (Bld) 25.3 % Normal 14.0-50.0 [facility] Comment on above: Performed By: #### 2 [id number] #### [facility] [address] [place] [address] MCH (RBC) [Entitic mass] 29.9 pg Normal 27.0-34.0 [facility] Comment on above: Performed By: #### 2 [id number] #### [facility] [address] [place] [address] MCHC (RBC) [Mass/Vol] 35.2 g/dL Normal 31.4-36.0 [facility] Comment on above: Performed By: #### 2 [id number] #### [facility] [address] [place] [address] MCV (RBC) [Entitic vol] 84.9 fL Normal 80.0-100.0 [facility] Comment on above: Performed By: #### 2 [id number] #### [facility] [address] [place] [address] Porter Absolute 0.8 E9/L Normal 0.2-1.[address] [facility] Comment on above: Performed By: #### 2 [id number] #### [facility] [address] [place] [address] Monocytes/100 WBC (Bld) 9.0 % Normal 4.0-14.0 [facility] Comment on above: Performed By: #### 2 [id number] #### [facility] [address] [place] [address] Neutro Absolute 5.3 E9/L Normal 2.0-7.5 [facility] Comment on above: Performed By: #### 2 [id number] #### [facility] [address] [place] [address] Neutro Auto 63.5 % Normal 36.0-75.0 [facility] Comment on above: Performed By: #### 2 [id number] #### [facility] [address] [place] [address] Platelet 307.0 E9/L Normal 150.0-500.0 [facility] Comment on above: Performed By: #### 2 [id number] #### [facility] [address] [place] [address] Platelet mean volume (Bld) [Entitic vol] 8.1 fL Normal 6.4-10.8 [facility] Comment on above: Performed By: #### 2 [id number] #### [facility] [address] [place] [address] RBC 4.0 E12/L Low 4.3-5.9 [facility] Comment on above: Performed By: #### 2 [id number] #### [facility] [address] [place] [address] WBC 8.4 E9/L Normal 4.0-11.0 [facility] Comment on above: Performed By: #### 2 [id number] #### [facility] [address] [place] [address] ED Clinical Summaryon 2024 ED Clinical Summary ED Clinical Summary [address] [address] ED Clinical Summary Person Information Name: ROSSY DOZIER [facility] Age: 34 Years : 1990 Sex: Female Language: Guamanian PCP: NONE, XXXX Marital Status: Phone: [phone] Visit Id: Visit Reason: Abdominal pain - ; Vaginal bleeding; VAGINAL BLEEDING, ABD PAIN-PT IS 6 WKS PREG Speciality: Acuity: 3 Enc Type: Emergency Med Service: Emergency Arrival: 11/28/2024 21:10:18 Discharge: 11/28/2024 23:56:57 LOS: 000 02:46 Checkin: 11/28/2024 21:10:18 Checkout: 11/28/2024 23:56:57 Dispo Type: Home (Routine DC) EVENTS: Event Name Event Status Request Date/Time Start Date/Time Complete Date/Time Arrive Complete 11/28/2024 21:10:18 11/28/2024 21:10:18 11/28/2024 21:10:18 Document Home Meds Request 11/28/2024 21:10:18 Triage Complete 11/28/2024 21:10:18 11/28/2024 21:20:21 11/28/2024 21:20:21 Registration Complete 11/28/2024 21:15:22 11/28/2024 21:15:22 11/28/2024 21:15:22 Reg Complete Request 11/28/2024 21:15:22 Reg Bed Request Complete 11/28/2024 21:15:22 11/28/2024 21:15:22 11/28/2024 21:15:22 Bed Assign Complete 11/28/2024 21:24:06 11/28/2024 21:24:06 11/28/2024 21:24:06 Dr Exam Complete 11/28/2024 21:24:06 11/28/2024 21:32:29 11/28/2024 21:32:29 RN Exam Complete 11/28/2024 21:24:06 11/28/2024 22:04:43 11/28/2024 22:04:43 Registration Request 11/28/2024 21:32:29 Pending Labs Complete 11/28/2024 21:37:04 11/28/2024 22:02:53 11/28/2024 22:28:50 Lab Complete 11/28/2024 21:37:04 11/28/2024 22:28:50 Blood Collect Request 11/28/2024 21:37:04 US Complete 11/28/2024 21:37:22 11/28/2024 23:01:10 11/28/2024 23:49:35 Pending Labs Complete 11/28/2024 22:01:47 11/28/2024 22:01:47 11/28/2024 22:28:50 Lab Complete 11/28/2024 22:01:47 11/28/2024 22:01:47 11/28/2024 22:28:50 Pending Labs Complete 11/28/2024 22:03:47 11/28/2024 22:03:47 11/28/2024 22:57:52 Lab Complete 11/28/2024 22:03:47 11/28/2024 22:03:47 11/28/2024 22:57:52 Pending Labs Collected 11/28/2024 22:14:11 11/28/2024 22:14:11 Lab Collected 11/28/2024 22:14:11 11/28/2024 22:14:11 Discharge Complete 11/28/2024 23:48:49 11/28/2024 23:57:01 11/28/2024 23:57:01 Meds Admin Complete 11/28/2024 23:49:08 11/28/2024 23:56:02 US Complete 11/28/2024 23:52:56 11/28/2024 23:53:29 Transfer Complete 11/28/2024 23:57:01 11/28/2024 23:57:01 11/28/2024 23:57:01 ADDRESS: [address] [place] [phone] PHYS DOC NOTES: MEDICAL INFORMATION: Prescriptions Given: [facility], [address] [place], [place] [id number], [phone] cephalexin (Keflex 500 mg Cap) 1 Capsules By Mouth every 12 hours. Refills: 0. PATIENT EDUCATION INFORMATION: Instructions: Vaginal Bleeding During , First Trimester Follow up: With: Address: When: [facility], [address] [place] [address] [place] [address] Business (1) In 3 days 12/01/2024 Comments: Call for diagnosis based follow up. Try to get a repeat Beta hCG quantitative level drawn in 2 days. DIAGNOSIS: First trimester bleeding; UTI (urinary tract infection) Normal [facility] ED Patient Summaryon 025 ED Patient Summary ED Patient Summary [address] [address] Patient Discharge Instructions Person Information Name: ROSSY DOZIER Age: 34 Years Arrival Date: 11/28/2024 21:10:18 Discharge Diagnosis: First trimester bleeding; UTI (urinary tract infection) Primary Care Physician: NONE, XXXX Provider Information Primary Provider: [employer]:Keny Munson PA-C The exam and treatment you received in the Emergency Department were for an urgent problem and are not intended as complete care. It is important that you follow up with a doctor, nurse practitioner, or physician???s bilingual sales assistant for ongoing care. If your symptoms become worse or you do not improve as expected and you are unable to reach your usual health care provider, you should return to the Emergency Department. We are available 24 hours a day. ROSSY DOZIER has been given the following list of patient education materials, prescriptions and follow-up instructions: Follow-up Instructions: With: Address: [facility], [address] [place] [address] [place] [address] Business (1) In 3 days 12/01/2024 Comments: Call Dr for diagnosis based follow up. Try to get a repeat Beta hCG quantitative level drawn in 2 days. In the event that this physician does not participate in your insurance network, please consult with your insurance company to find a nearby participating provider. Patient Education Materials: Vaginal Bleeding During , First Trimester A MESSAGE TO ALL PATIENTS REGARDING OPIOIDS PRESCRIPTION OPIOIDS: WHAT YOU NEED TO KNOW Prescription opioids can be used to help relieve atktffkb-ml-[id number] pain and are often prescribed following a surgery or injury, or for certain health conditions. These medications can be an important part of the treatment but also come with serious risks. It is important to work with your healthcare provider to make sure you are getting the safest, most effective care. WHAT ARE THE RISKS AND SIDE EFFECTS OF OPIOID USE? Prescription opioids carry serious risks of addiction and overdose, especially with prolonged use. An opioid overdose, often marked by slowed breathing, can cause sudden . The use of prescription opioids can have a number of side effects as well, even when taken as directed: ??? Tolerance???meaning you might need to take more of the medication for the same pain relief ??? Physical dependence???meanin g you have symptoms of withdrawal when a medication is stopped ??? Increased sensitivity to pain ??? Constipation ??? Nausea, vomiting, and dry mouth ??? Sleepiness and dizziness ??? Confusion ??? Depression ??? Low levels of testosterone that can result in lower sex drive, energy, and strength ??? Itching and sweating RISKS ARE GREATER WITH: ??? History of drug misuse, substance use disorder, or overdose ??? Mental health conditions (such as depression or anxiety) ??? Sleep apnea ??? Older age (65 years and older) ??? Avoid alcohol while taking prescription opioids. Also, unless specifically advised by your health care provider, medications to avoid include: ??? Benzodiazepines (such as Xanax or Valium) ??? Muscle relaxants (such as Soma or Flexeril) ??? Hypnotics (such as Ambien or Lunesta) ??? Other prescription opioids KNOW YOUR OPTIONS Talk to your health care provider about ways to manage your pain that don???t involve prescription opioids. Some of these options may actually work better and have fewer risks and side effects. Options may include: ??? Pain relievers such as acetaminophen, ibuprofen, and naproxen ??? Some medication that are also used for depression or seizures ??? Physical therapy and exercise ??? Cognitive behavioral therapy, a psychological, goal-directed approach, in which patients learn how to modify physical, behavioral, and emotional triggers of pain and stress. IF YOU ARE PRESCRIBED OPIOIDS FOR PAIN: ??? Never take opioids in greater amounts or more often than prescribed. ??? Follow up with your primary health care provider. o Work together to create a plan on how to manage your pain. o Talk about ways to help manage your pain that don???t involve prescription opioids. o Talk about any and all concerns and side effects. ??? Help prevent misuse and abuse o Never sell or share prescription opioids. o Never use another person???s prescription opioids. ??? Store prescription opioids in a secure place and out of reach of others (this may include visitors, children, friends, and family). ??? Safely dispose of unused prescription opioids: Find your community drug take-back program or your pharmacy mail-back program, or flush them down the toilet, following guidance from the Food and Drug Administration (www.fda.gov/Drugs/ ResourcesForYou). (more content not included)... Normal [facility] UA with Cult Rflxon 11-29-19 25 Color (U) Colorless Abnormal Yellow [facility] Comment on above: Result Comment: Micr oscopic readings are only performed on those samples that meet specific criteria set forth by [facility]. Performed By: #### 4 [id number] #### [facility] [address] [place] [address] Glucose (U) [Mass/Vol] Negative Normal Negative [facility] Comment on above: Performed By: #### 4 [id number] #### [facility] [address] [place] [address] Ketones Ql (U) Negative Normal Negative [facility] Comment on above: Performed By: #### 4 [id number] #### [facility] [address] [place] [address] UA Blood 3+ mg/dL Abnormal Negative [facility] Comment on above: Performed By: #### 4 [id number] #### [facility] [address] [place] [address] UA Bacteria 1+ /HPF Abnormal Trace [facility] Comment on above: Performed By: #### 4 [id number] #### [facility] [address] [place] [address] UA Clarity Clear Normal Clear [facility] Comment on above: Performed By: #### 4 [id number] #### [facility] [address] [place] [address] UA Leuk Est 75 Dasia/uL Abnormal Negative [facility] Comment on above: Performed By: #### 4 [id number] #### [facility] [address] [place] [address] UA Mucous Negative Normal Negative [facility] Comment on above: Performed By: #### 4 [id number] #### [facility] [address] [place] [address] UA Nitrite Negative Normal Negative [facility] Comment on above: Performed By: #### 4 [id number] #### [facility] [address] [place] [address] UA pH 6.0 Invalid Interpretation Code 5.0-9.0 [facility] Comment on above: Performed By: #### 4 [id number] #### [facility] [address] [place] [address] UA Protein Negative Normal Negative [facility] Comment on above: Performed By: #### 4 [id number] #### [facility] [address] [place] [address] UA RBC 4-20 Abnormal 0-3 [facility] Comment on above: Performed By: #### 4 [id number] #### [facility] [address] [place] [address] UA Spec Grav 1.005 Invalid Interpretation Code 1.005-1.030 [facility] Comment on above: Performed By: #### 4 [id number] #### [facility] [address] [place] [address] UA Squam Epithelial 0-2 Invalid Interpretation Code [facility] Comment on above: Performed By: #### 4 [id number] #### [facility] [address] [place] [address] UA Urobilinogen Negative Normal Negative [facility] Comment on above: Performed By: #### 4 [id number] #### [facility] [address] [place] [address] UA WBC 16-25 Abnormal 0-5 [facility] Comment on above: Performed By: #### 4 [id number] #### [facility] [address] [place] [address] Urobilinogen (U) [Mass/Vol] Negative Normal Negative [facility] Comment on above: Performed By: #### 4 [id number] #### [facility] [address] [place] [address] UA Spec Desc Clean Catch Normal [facility] Comment on above: Performed By: #### 4 [id number] #### [facility] [address] [place] [address] eGFRon 11-28-2024 eGFR 122 mL/min/1.73 m2 Normal >=59 [facility] Comment on above: Performed By: #### 1 [id number] #### [facility] [address] [place] [address] IGP,APTIMA HPV,AGE GDLNon AGE GDLN ACOG TESTING Note . [facility] Comment on above: TESTS RESULT FLAG UN ITS REF RANGE LAB Clinician Provided Cytology Information Source.............Cervix;Endocervix No. of containers..01 ThinPrep Vial Age Algo ACOG Tracey... FLAG LEGEND: L-Low Normal,H-High Normal,LL-Alert Low,HH-Alert High <-Panic Low,>-Panic High,A-Abnormal,AA-Critical Abnormal Performed at: 01 =G [facility] [address] Christa Chavez MD, HPV APTIMA Negative Negative [facility] Comment on above: This nucleic acid am plification test detects fourteen high- risk HPV types (16,18,31,33,35,39,45,51,52,56,58,59,66,68) without differentiation. Performed at: =G - [facility] [id number] [employer] Flight Engineer: Christa Chavez MD, Phone: [phone] Performed at: [facility] [address] [address] [place], [place] [id number] [employer] Flight Engineer: Duncan Ashraf MD, Phone: [phone] IGP, APTIMA HPV, RFX 16/18,45 Note . [facility] Comment on above: TESTS RESULT FLAG UN ITS REF RANGE LAB DIAGNOSIS: 02 NEGATIVE FOR INTRAEPITHELIAL LESION OR MALIGNANCY. Specimen adequacy: 02 Satisfactory for evaluation. Endocervical and/or squamous metaplastic cells (endocervical component) are present. Performed by: Valery Scott, Environmental Assistant ([facility]) . 02 Note: Note 03 The Pap smear is a screening test designed to aid in the detection of premalignant and malignant conditions of the uterine cervix. It is not a diagnostic procedure and should not be used as the sole means of detecting cervical cancer. Both false-positive and false-negative reports do occur. Test Methodology: Note 03 This liquid based ThinPrep(R) pap test was screened with the use of an image guided system. HPV Genotype Reflex Note 02 Criteria not met, HPV Genotype not performed. FLAG LEGEND: L-Low Normal,H-High Normal,LL-Alert Low,HH-Alert High <-Panic Low,>-Panic High,A-Abnormal,AA-Critical Abnormal Performed at: 02 [facility] [address] [address] [place] [address] Dnucan Ashraf MD, [address] [facility] [address] [address] Christa Chavez MD, BRUSH-SPATULA CERVIX ENDOCERVIX [facility] HCG ( test) Ql (U)o n 07-11-2024 Interpretation and review of laboratory results Normal [facility] Preg Test, Ur Negative Negative [facility] Health care [facility] Urinalysis macro (dipstick) panel (U)on 07-11-2024 Bilirubin, UA Negative Negative - 4(70) +++ mg/dL [facility] Blood, UA Negative Negative - 50 Drake/mcL [facility] Clarity, UA Clear [facility] Healthct re Color, UA Yellow [facility] Glucose, UA Negative Negative - 2000(110) ++++ mg/dL [facility] Interpretation and review of laboratory results Normal [facility] Ketones, UA Negative Negative - 160(16) ++++ mg/dL [facility] Leukocytes, UA Positive Negative - 500+++ Dasia/mcL [facility] Comment on above: small Nitrite, UA Negative Negative - Positive [facility] pH, UA 6 5 - 9 [facility] Healthcar e Protein, UA Negative Negative - 2000(20) ++++ mg/dL [facility] Spec Grav, UA 1.025 1 - 1.03 [facility] Urobilinogen, UA 0.2 0.2 - 12 mg/dL [facility] URINE CULTUREon 11-17-2023 Bacteria identified Cx Nom (U) FINAL Normal (. - .) [facility] Comment on above: Order Comment: [facility] FACILITY: DR CRISTINA - OFFICE [id number] Result Comment: LISA Mercado CATCH MID-STREAM URINE > 10,000 BUT < 100,000 CFU/ML RESEMBLES A CONTAMINATED URINE COLLECTION Performed By: #### C -UR #### [facility] [address] [facility] [place], [address] CT CHEST PULMONARY EMBOLISM W CONTRASTon [...] 09/21/23 Final result Normal [facility] CBC with Auto Differentialon 09-20-2023 Basophils (Bld) [#/Vol] 0.05 10*3/uL [facility] Basophils/100 WBC (Bld) 0 % 0 - 2 % [facility] Eosinophils (Bld) [#/Vol] 0.15 10*3/uL [facility] Eosinophils/100 WBC (Bld) 1 % 1 - 4 % [facility] Erythrocyte distribution width (RBC) [Ratio] 12.8 % 11.8 - 14.4 % [facility] Hematocrit (Bld) [Volume fraction] 32.7 % Low 36.3 - 47.1 % [facility] Hemoglobin (Bld) [Mass/Vol] 11.3 g/dL Low 11.9 - 15.1 g/dL [facility] Immature granulocytes (Bld) [#/Vol] 0.20 10*3/uL [facility] Immature granulocytes/100 WBC (Bld) 2 % High 0 [facility] Interpretation and review of laboratory results Abnormal [facility] Lymphocytes/100 WBC (Bld) 17 % Low 24 - 43 % [facility] Lymphocytes/100 WBC (Bld) 2.23 % [facility] MCH (RBC) [Entitic mass] 29.7 pg 25.2 - 33.5 pg [facility] MCHC (RBC) [Mass/Vol] 34.6 g/dL 28.4 - 34.8 g/dL [facility] MCV (RBC) [Entitic vol] 85.8 fL 82.6 - 102.9 fL [facility] Monocytes/100 WBC (Bld) 5 % 3 - 12 % [facility] Monocytes/100 WBC (Bld) 0.72 % [facility] Neutrophils/100 WBC (Bld) 75 % High 36 - 65 % [facility] Nucleated RBC/100 WBC (Bld) [Ratio] 0.0 % 0.0 per 100 WBC [facility] Platelet mean volume (Bld) [Entitic vol] 10.2 fL 8.1 - 13.5 fL [facility] Platelets (Bld) [#/Vol] 293 10*3/uL [facility] RBC (Bld) [#/Vol] 3.81 10*6/uL Low 3.95 - 5.1 1 m/uL [facility] Segmented neutrophils/100 WBC (Bld) 9.90 % High [facility] WBC other (Bld) [#/Vol] 13.3 High [facility] CBC with Diffon 09-20-2023 Abs. Basophil 0.05 k/uL Normal 0.00-0.20 [facility] Comment on above: Performed By: #### C DP, PT, MG #### [facility] [address] [place] [address] [employer] Wing Aircraft Flight Engineer: Rosario Linares MD Abs.Imm.Granulocyte 0.20 k/uL Normal 0.00-0.30 [facility] Comment on above: Performed By: #### C DP, PT, MG #### [facility] [address] [place], [place] [address] [employer] Flight Engineer: Rosario Linares MD Abs.Neutrophil (Seg) 9.90 k/uL High 1.50-8.10 [facility] Comment on above: Performed By: #### C DP, PT, MG #### [facility] [address] [place] [address] Dr[address] [place], [place] [address] [employer] Flight Engineer: Rosario Linares MD Basophils/100 WBC (Bld) 0 % Normal 0-2 [facility] Comment on above: Performed By: #### C DP, PT, MG #### [address] [place], [place] [address] [employer] Flight Engineer: Rosario Linares MD Eosinophils (Bld) [#/Vol] 0.15 10*3/uL Normal 0.00-0.44 [facility] Comment on above: Performed By: #### C DP, PT, MG #### [address] [place], [place] [address] [employer] Flight Engineer: Rosario Linares MD Eosinophils/100 WBC (Bld) 1 % Normal 1-4 [facility] Comment on above: Performed By: #### C DP, PT, MG #### [address] [place], [facility] [employer] Flight Engineer: Rosario Linares MD Erythrocyte distribution width (RBC) [Ratio] 12.8 % Normal 11.8-14.4 [facility] Comment on above: Performed By: #### C DP, PT, MG #### [address] [place], [facility] [employer] Flight Engineer: Rosario Linares MD Hematocrit (Bld) [Volume fraction] 32.7 % Low 36.3-47.1 [facility] Comment on above: Performed By: #### C DP, PT, MG #### [address] [place] [id number] [employer] Flight Engineer: Rosario Linares MD Hemoglobin (Bld) [Mass/Vol] 11.3 g/dL Low 11.9-15.1 [facility] Comment on above: Performed By: #### C DP, PT, MG #### [address] [place], [place] [id number] [employer] Flight Engineer: Rosario Linares MD Immature granulocytes/100 WBC (Bld) 2 % High 0 [facility] Comment on above: Performed By: #### C DP, PT, MG #### [address] [place] [address] [employer] Wing [employer] Flight Engineer: Rosario Linares MD Lymphocytes (Bld) [#/Vol] 2.23 10*3/uL Normal 1.10-3.70 [facility] Comment on above: Performed By: #### C DP, PT, MG #### [address] [place], [facility] [employer] Flight Engineer: Rosario Linares MD Lymphocytes/100 WBC (Bld) 17 % Low 24-43 [facility] Comment on above: Performed By: #### C DP, PT, MG #### [address] [place], [place] [id number] [employer] Flight Engineer: Rosario Linares MD MCH (RBC) [Entitic mass] 29.7 pg Normal 25.2-33.5 [facility] Comment on above: Performed By: #### C DP, PT, MG #### [address] [place], [place] [id number] [employer] Flight Engineer: Rosario Linares MD MCHC (RBC) [Mass/Vol] 34.6 g/dL Normal 28.4-34.8 [facility] Comment on above: Performed By: #### C DP, PT, MG #### [address] [place] [address] [employer] Flight Engineer: Rosario Linares MD MCV (RBC) [Entitic vol] 85.8 fL Normal 82.6-102.9 [facility] Comment on above: Performed By: #### C DP, PT, MG #### [address] [place] [address] [employer] Flight Engineer: Rosario Linares MD Monocytes (Bld) [#/Vol] 0.72 10*3/uL Normal 0.10-1.20 [facility] Comment on above: Performed By: #### C DP, PT, MG #### [address] [place], [facility] [employer] Flight Engineer: Rosario Linares MD Monocytes/100 WBC (Bld) 5 % Normal 3-12 [facility] Comment on above: Performed By: #### C DP, PT, MG #### [address] [place], [facility] [employer] Flight Engineer: Rosario Linares MD Neutrophil (Seg) 75 % High 36-65 [facility] Comment on above: Performed By: #### C DP, PT, MG #### [address] [place], [facility] [employer] Flight Engineer: Rosario Linares MD NRBC Automated 0.0 per 100 WBC Normal 0.0 [facility] Comment on above: Performed By: #### C DP, PT, MG #### [address] [place], [facility] [employer] Flight Engineer: Rosario Linares MD Platelet mean volume (Bld) [Entitic vol] 10.2 fL Normal 8.1-13.5 [facility] Comment on above: Performed By: #### C DP, PT, MG #### [address] [place] [address] [employer] Flight Engineer: Rosario Linares MD Platelets (Bld) [#/Vol] 293 10*3/uL Normal 138-453 [facility] Comment on above: Performed By: #### C DP, PT, MG #### [facility] [address] [place] [address] [employer] Flight Engineer: Rosario Linares MD RBC (Bld) [#/Vol] 3.81 10*6/uL Low 3.95-5.11 [facility] Comment on above: Performed By: #### C DP, PT, MG #### [facility] [address] [place] [address] [employer] Flight Engineer: Rosario Linares MD WBC (Bld) [#/Vol] 13.3 10*3/uL High 3.5-11.3 [facility] Comment on above: Performed By: #### C DP, PT, MG #### [facility] [address] [place], [place] [id number] [employer] Flight Engineer: Rosario Linares MD [facility] 09-20-2023 Albumin [Mass/Vol] 3.5 g/dL 3.5 - 5.2 g/dL [facility] Albumin/Globulin [Mass ratio] 1.1 {ratio} 1.0 - 2.5 [facility] ALP [Catalytic activity/Vol] 103 U/L 35 - 104 U/L [facility] ALT [Catalytic activity/Vol] 16 U/L 5 - 33 U/L [facility] Anion gap [Moles/Vol] 10 mmol/L 9 - 17 mmol/L [facility] AST [Catalytic activity/Vol] 16 U/L NINF - 32 U/L [facility] Bilirubin [Mass/Vol] 0.2 mg/dL Low 0.3 - 1 .2 mg/dL [facility] Calcium [Mass/Vol] 8.4 mg/dL Low 8.6 - 10. 4 mg/dL [facility] Chloride [Moles/Vol] 101 mmol/L 98 - 10 7 mmol/L [facility] CO2 [Moles/Vol] 22 mmol/L 20 - 31 mmol/L [facility] Creatinine [Mass/Vol] 0.4 mg/dL Low 0.5 - 0.9 mg/dL [facility] Est, Sheela Cumminst Rate - [facility] Comment on above: These results are not [...] [Mass/Vol] 89 mg/dL 70 - 99 mg/dL [facility] Interpretation and review of laboratory results Abnormal [facility] Potassium [Moles/Vol] 3.7 mmol/L 3.7 - 5.3 mmol/L [facility] Protein [Mass/Vol] 6.7 g/dL 6.4 - 8.3 g/dL [facility] Sodium [Moles/Vol] 133 mmol/L Low 135 - 144 mmol/L [facility] Urea nitrogen [Mass/Vol] 7 mg/dL 6 - 20 mg/dL [facility] Urea nitrogen/Creatinine [Mass ratio] 18 mg/mg 9 - 20 [facility] Comp Metabolic Profon 2023 Albumin [Mass/Vol] 3.5 g/dL Normal 3.5-5.2 [facility] Comment on above: Performed By: #### C P #### [facility] [address] [place] [address] [employer]: Rosario Linares MD Albumin/Glob Ratio 1.1 Normal 1.0-2.5 [facility] Comment on above: Performed By: #### C P #### [facility] [address] [place] [address] [employer]: Rosario Linares MD Alkaline Phos 103 U/L Normal 35-104 [facility] Comment on above: Performed By: #### C P #### [facility] [address] [place] [address] [employer]: Rosario Linares MD ALT [Catalytic activity/Vol] 16 U/L Normal 5-33 [facility] Comment on above: Performed By: #### C P #### [facility] [address] [place] [address] [employer]: Rosario Linares MD Anion gap [Moles/Vol] 10 mmol/L Normal 9-17 [facility] Comment on above: Performed By: #### C P #### [facility] [address] [place] [id number] [employer]: Rosario Linares MD AST [Catalytic activity/Vol] 16 U/L Normal <32 [facility] Comment on above: Performed By: #### C P #### [facility] [address] [place], [place] [id number] [employer]: Rosario Linares MD Bilirubin [Mass/Vol] 0.2 mg/dL Low 0.3-1.2 [facility] Comment on above: Performed By: #### C P #### [facility] [address] [place], [place] [id number] [employer]: Rosario Linares MD BUN/CRE Ratio 18 Normal 9-20 [facility] Comment on above: Performed By: #### C P #### [facility] [address] [place], [place] [id number] [employer]: Rosario Linares MD Calcium [Mass/Vol] 8.4 mg/dL Low 8.6-10.4 [facility] Comment on above: Performed By: #### C P #### [facility] [address] [place], [place] [id number] [employer]: Rosario Linares MD Chloride [Moles/Vol] 101 mmol/L Normal 98-107 [facility] Comment on above: Performed By: #### C P #### [facility] [address] [place] [address] [employer]: Rosario Linares MD CO2 [Moles/Vol] 22 mmol/L Normal 20-[address] [facility] Comment on above: Performed By: #### C P #### [facility] [address] [place] [address] [employer] Engineer: Rosario Linares MD Creatinine [Mass/Vol] 0.4 mg/dL Low 0.5-0.9 [facility] Comment on above: Performed By: #### C P #### [facility] [address] [place] [address] [employer] Engineer: Rosario Linares MD GFR/1.73 sq M.predicted among non-blacks MDRD (S/P/Bld) [Vol rate/Area] mL/min/{1.73_m2} Normal >60 [facility] Comment on above: Result Comment: These results [...] secretion. Performed By: #### C P #### [facility] [address] [place] [address] [employer] Engineer: Rosario Linares MD Glucose [Mass/Vol] 89 mg/dL Normal 70-99 [facility] Comment on above: Performed By: #### C P #### [facility] [address] [place] [address] [employer] Engineer: Rosario Linares MD Potassium [Moles/Vol] 3.7 mmol/L Normal 3.7-5.3 [facility] Comment on above: Performed By: #### C P #### [facility] [address] [place] [address] [employer] Engineer: Rosario Linares MD Protein [Mass/Vol] 6.7 g/dL Normal 6.4-8.3 [facility] Comment on above: Performed By: #### C P #### [facility] [address] [place] [id number] [employer] Engineer: Rosario Linares MD Sodium [Moles/Vol] 133 mmol/L Low 135-144 [facility] Comment on above: Performed By: #### C P #### [facility] [address] [place] [id number] [employer] Engineer: Rosario Linares MD Urea nitrogen [Mass/Vol] 7 mg/dL Normal 6-20 [facility] Comment on above: Performed By: #### C P #### [facility] [address] [place] [id number] [employer]: Rosario Linares MD D-Dimer Teston 09-20-2023 D-Dimer Test 1.32 ug/mL FEU High 0.00-0.59 [facility] Comment on above: Result Comment: When [...] with distal DVT. Performed By: #### D BETTYE #### [facility] [address] [place] [address] [employer]: Rosario Linares MD D-Dimer, Quantitativeon 08-27 Fibrin D-dimer FEU (PPP) [Mass/Vol] 1.32 High [facility] Comment on above: When combined with a [...] Interpretation and review of laboratory results Abnormal [facility] Magnesiumon 09-20-2023 Magnesium [Mass/Vol] 1.8 mg/dL 1.6 - 2 .6 mg/dL [facility] Magnesium [Mass/Vol] 1.8 mg/dL Normal 1.6-2.6 [facility] Comment on above: Performed By: #### C DP, PT, MG #### [facility] [address] [place] [address] [employer]: Rosario Linares MD PTon 09-20-2023 INR Coag (PPP) [Relative time] 1.0 {INR} Normal [facility] Comment on above: Result Comment: Therapeutic Range: Moderate Anticoagulant Intensity: INR = 2.0-3.0 High Anticoagulant Intensity: INR = 2.5-3.5 Performed By: #### C DP, PT, MG #### [facility] [address] [place] [address] [place] [address] [employer]: Rosario Linares MD Therapeutic Range: Moderate Anticoagulant Intensity: INR = 2.0-3.0 High Anticoagulant Intensity: INR = 2.5-3.5 PT Coag (PPP) [Time] 12.8 s Normal 11.7-14.1 [facility] Comment on above: Performed By: #### C DP, PT, MG #### [address] [place] [address] [employer]: Rosario Linares MD Protime-INRon 09-20-2023 [facility] TSHon 09-20-2023 TSH Qn 2.11 m[IU]/L [facility] Thyroid Stim. Horm.on 2023 Thyroid Stim. Horm. 2.11 uIU/mL Normal 0.30-5.00 [facility] Comment on above: Performed By: #### T SH #### [address] [place] [address] [employer]: Rosario Linares MD Troponinon 09-20-2023 Troponin I.cardiac High sensitivity method [Mass/Vol] ng/L 0 - 14 ng/L [facility] Comment on above: High Sensitivity Tro ponin values cannot be compared with other Troponin methodologies. [facility] Troponin, High Sens <6 Normal 0-14 [facility] Comment on above: Result Comment: High Sensitivity Troponin values cannot be compared with other Troponin methodologies. Performed By: #### T ROPI #### [facility] [address] [place] [address] [place] [address] [employer]: Rosario Linares MD Basic Metabolic Profon 07-25 Anion gap [Moles/Vol] 13 mmol/L Normal 9-17 [facility] Comment on above: Performed By: #### C DP, BMP #### [facility] [address] [place] [address] [employer] Engineer: Rosario Linares MD BUN/CRE Ratio 18 Normal 9-20 [facility] Comment on above: Performed By: #### C DP, BMP #### [facility] [address] [place], [place] [id number] [employer] Engineer: Rosario Linares MD Calcium [Mass/Vol] 8.7 mg/dL Normal 8.6-10.4 [facility] Comment on above: Performed By: #### C DP, BMP #### [facility] [address] [place] [address] [employer] Engineer: Rosario Linares MD Chloride [Moles/Vol] 100 mmol/L Normal 98-107 [facility] Comment on above: Performed By: #### C DP, BMP #### [facility] [address] [place], [place] [phone] [employer]: Rosario Linares MD CO2 [Moles/Vol] 21 mmol/L Normal 20-[address] [facility] Comment on above: Performed By: #### C DP, BMP #### [facility] [address] [place], [place] [id number] [employer]: Rosario Linares MD Creatinine [Mass/Vol] 0.4 mg/dL Low 0.5-0.9 [facility] Comment on above: Performed By: #### C DP, BMP #### [facility] [address] [place] [address] [employer]: Rosario Linares MD GFR/1.73 sq M.predicted among non-blacks MDRD (S/P/Bld) [Vol rate/Area] mL/min/{1.73_m2} Normal >60 [facility] Comment on above: Result Comment: These results [...] By: #### C DP, BMP #### [facility] [address] [place] [address] [place] [address] [employer]: Rosario Linares MD Glucose [Mass/Vol] 115 mg/dL High 70-99 [facility] Comment on above: Performed By: #### C DP, BMP #### [address] [place], [place] [id number] [employer] Engineer: Rosario Linares MD Potassium [Moles/Vol] 3.4 mmol/L Low 3.7-5.3 [facility] Comment on above: Performed By: #### C DP, BMP #### [address] [place], [place] [phone] [employer]: Rosario Linares MD Sodium [Moles/Vol] 134 mmol/L Low 135-144 [facility] Comment on above: Performed By: #### C DP, BMP #### [facility] [address] [place] [address] [place], [place] [phone] [employer]: Rosario Linares MD Urea nitrogen [Mass/Vol] 7 mg/dL Normal 6-20 [facility] Comment on above: Performed By: #### C DP, BMP #### [address] [place] [address] [employer]: Rosario Linares MD CBC with Diffon 07-26-2023 Abs. Basophil 0.04 k/uL Normal 0.00-0.20 [facility] Comment on above: Performed By: #### C DP, BMP #### [facility] [address] [place] [address] Dr. [place], [place] [address] [employer]: Rosario Linares MD Abs.Imm.Granulocyte 0.07 k/uL Normal 0.00-0.30 [facility] Comment on above: Performed By: #### C DP, BMP #### [address] [place] [address] [employer]: Rosario Linares MD Abs.Neutrophil (Seg) 8.51 k/uL High 1.50-8.10 [facility] Comment on above: Performed By: #### C DP, BMP #### [address] [place] [address] [employer]: Rosario Linares MD Basophils/100 WBC (Bld) 0 % Normal 0-2 [facility] Comment on above: Performed By: #### C DP, BMP #### [address] [place] [address] [employer]: Rosario Linares MD Eosinophils (Bld) [#/Vol] 0.11 10*3/uL Normal 0.00-0.44 [facility] Comment on above: Performed By: #### C DP, BMP #### [address] [place] [phone] [employer] Engineer: Rosario Linares MD Eosinophils/100 WBC (Bld) 1 % Normal 1-4 [facility] Comment on above: Performed By: #### C DP, BMP #### [address] [place] [phone] [employer] Engineer: Rosario Linares MD Erythrocyte distribution width (RBC) [Ratio] 13.0 % Normal 11.8-14.4 [facility] Comment on above: Performed By: #### C DP, BMP #### [address] [place] [phone] [employer]: Rosario Linares MD Hematocrit (Bld) [Volume fraction] 36.2 % Low 36.3-47.1 [facility] Comment on above: Performed By: #### C DP, BMP #### [facility] [address] [place] [address] [place] [address] [employer] Engineer: Rosario Linares MD Hemoglobin (Bld) [Mass/Vol] 12.2 g/dL Normal 11.9-15.1 [facility] Comment on above: Performed By: #### C DP, BMP #### [address] [place] [address] [employer] Engineer: Rosario Linares MD Immature granulocytes/100 WBC (Bld) 1 % High 0 [facility] Comment on above: Performed By: #### C DP, BMP #### [address] [place], [place] [phone] [employer] Engineer: Rosario Linares MD Lymphocytes (Bld) [#/Vol] 2.63 10*3/uL Normal 1.10-3.70 [facility] Comment on above: Performed By: #### C DP, BMP #### [address] [place], [place] 136[address]83 [employer] Engineer: Rosario Linares MD Lymphocytes/100 WBC (Bld) 22 % Low 24-43 [facility] Comment on above: Performed By: #### C DP, BMP #### [facility] [address] [place] [address] [place] [address] [employer] Engineer: Rosario Linares MD MCH (RBC) [Entitic mass] 29.8 pg Normal 25.2-33.5 [facility] Comment on above: Performed By: #### C DP, BMP #### [address] [place] [address] [employer] Engineer: Rosario Linares MD MCHC (RBC) [Mass/Vol] 33.7 g/dL Normal 28.4-34.8 [facility] Comment on above: Performed By: #### C DP, BMP #### [address] [place], [place] [address] [employer]: Rosario Linares MD MCV (RBC) [Entitic vol] 88.5 fL Normal 82.6-102.9 [facility] Comment on above: Performed By: #### C DP, BMP #### [address] [place], [place] [address] [employer] Engineer: Rosario Linares MD Monocytes (Bld) [#/Vol] 0.44 10*3/uL Normal 0.10-1.20 [facility] Comment on above: Performed By: #### C DP, BMP #### [address] [place] [phone] [employer] Engineer: Rosario Linares MD Monocytes/100 WBC (Bld) 4 % Normal 3-12 [facility] Comment on above: Performed By: #### C DP, BMP #### [address] [place] [address] [employer] Engineer: Rosario Linares MD Neutrophil (Seg) 72 % High 36-65 [facility] Comment on above: Performed By: #### C DP, BMP #### [address] [place], [place] [address] [employer] Engineer: Rosario Linares MD NRBC Automated 0.0 per 100 WBC Normal 0.0 [facility] Comment on above: Performed By: #### C DP, BMP #### [address] [place] [phone] [employer] Engineer: Rosario Linares MD Platelet mean volume (Bld) [Entitic vol] 10.3 fL Normal 8.1-13.5 [facility] Comment on above: Performed By: #### C DP, BMP #### [facility] [address] [place], [place] [phone] [employer] Engineer: Rosario Linares MD Platelets (Bld) [#/Vol] 289 10*3/uL Normal 138-453 [facility] Comment on above: Performed By: #### C DP, BMP #### [facility] [address] [place], [place] [phone] [employer] Engineer: Rosario Linares MD RBC (Bld) [#/Vol] 4.09 10*6/uL Normal 3.95-5.11 [facility] Comment on above: Performed By: #### C DP, BMP #### [address] [place], [place] [address]57[address]83 [employer] Engineer: Rosario Linares MD WBC (Bld) [#/Vol] 11.8 10*3/uL High 3.5-11.3 [facility] Comment on above: Performed By: #### C DP, BMP #### [address] [place], [place] 2589383 [employer]: Rosario Linares MD Troponinon 07-26-2023 Troponin, High Sens 6 ng/L Normal 0-14 [facility] Comment on above: Result Comment: High Sensitivity Troponin values cannot be compared with other Troponin methodologies. Performed By: #### T ROPI #### [facility] [address] [place] [address] [place], [place] [phone] [employer]: Rosario Linares MD UA w/Reflex Cultureon 2023 Bilirubin, SemiQt,Ur Negative Normal NEG [facility] Comment on above: Performed By: #### C DP, BMP #### [facility] [address] [place] [address] [employer] Engineer: Rosario Linares MD Blood, Urine Negative Normal NEG [facility] Comment on above: Performed By: #### C DP, BMP #### [facility] [address] [place], [place] [phone] [employer] Engineer: Rosario Linares MD Clarity (U) Clear Normal CLEAR [facility] Comment on above: Performed By: #### C DP, BMP #### [facility] [address] [place] [address] [employer] Engineer: Rosario Linares MD Color (U) Yellow Normal YEL [facility] Comment on above: Performed By: #### C DP, BMP #### [facility] [address] [place] [address] Dr. [place], [place] [phone] [employer]: Rosario Linares MD Glucose Ql (U) Negative Normal NEG [facility] Comment on above: Performed By: #### C DP, BMP #### [address] [place], [place] [phone] [employer]: Rosario Linares MD Ketones Ql (U) Negative Normal NEG [facility] Comment on above: Performed By: #### C DP, BMP #### [facility] [address] [place] [address] Dr. [place], [place] [phone] [employer]: Rosario Linares MD Leukocyte esterase Test strip Ql (U) SMALL Abnormal NEG [facility] Comment on above: Performed By: #### C DP, BMP #### [facility] [address] [place] [address] Dr. [place], [place] [phone] [employer]: Rosario Linares MD Nitrite,Ur Negative Normal NEG [facility] Comment on above: Performed By: #### C DP, BMP #### [facility] [address] [place], [place] [phone] [employer] Engineer: Rosario Linares MD PH,Ur 8.0 Normal 5.0-9.0 [facility] Comment on above: Performed By: #### C DP, BMP #### [facility] [address] [place], [place] [phone] [employer] Engineer: Rosario Linares MD Protein Ql (U) Negative Normal NEG [facility] Comment on above: Performed By: #### C DP, BMP #### [facility] [address] [place], [place] [phone] [employer] Engineer: Rosario Linares MD Spec. [place],Ur 1.015 Normal 1.010-1.020 [facility] Comment on above: Performed By: #### C DP, BMP #### [facility] [address] [place], [facility] [employer]: Rosario Linares MD Urobilinogen,Ur Normal Normal 0.0-1.[address] [facility] Comment on above: Performed By: #### C DP, BMP #### [address] [place], [facility] [employer]: Rosario Linares MD Urinalysis,Microon 4 Bacteria TRACE Abnormal NONE [facility] Comment on above: Performed By: #### C DP, BMP #### [facility] [address] [place] [address] Dr. [place], [place] [phone] [employer]: Rosario Linares MD Epithelial cells LM Ql (Urine sed) 5 TO 10 Normal 0-25 [facility] Comment on above: Performed By: #### C DP, BMP #### [address] [place] [address] [employer] Engineer: Rosario Linares MD Urine RBC's None Normal 0-2 [facility] Comment on above: Performed By: #### C DP, BMP #### [facility] [address] [place], [place] [phone] [employer] Engineer: Rosario Linares MD Urine WBC's 2 TO 5 Normal 0-5 [facility] Comment on above: Performed By: #### C DP, BMP #### [facility] [address] [place], [place] [phone] [employer]: Rosario Linares MD COVID/FLU/RSV RT-PCRon 06-04 SARS-CoV-2 (COVID-19) RNA DEVIN+probe Ql (Unsp spec) Negative [facility] [employer] Other COVID/FLU/RSV RT-PCR Negative [facility] [employer] Other Quick Strepon 06-04-2022 S. pyogenes Org specific cx Ql (Throat) Negative [facility] [employer] Other Quick Strep [facility] [employer] Other CBC AUTO DIFFon 01-24-2022 BASO # 0.1 103/ul Normal 0.0-0.1 [facility] Comment on above: Performed By: #### A FPTET #### [facility] [address] [place] [address] Dr. Belkys Fajardo Basophils/100 WBC (Bld) 0.3 % Normal 0.2-2.0 [facility] Comment on above: Performed By: #### A FPTET #### [facility] [address] [place] [address] Dr. Belkys Fajardo EO # 0.1 103/ul Normal 0.0-0.7 [facility] Comment on above: Performed By: #### A FPTET #### [facility] [address] [place] [address] Dr. Belkys Fajardo Eosinophils/100 WBC (Bld) 0.9 % Normal 0.9-7.0 [facility] Comment on above: Performed By: #### A FPTET #### [facility] [address] [place] [address] [address] Belkys Fajardo Erythrocyte distribution width (RBC) [Ratio] 14.0 % Normal 11.0-15.0 [facility] Comment on above: Performed By: #### A FPTET #### [facility] [address] [place] [address] Dr. Belkys Fajardo Hematocrit (Bld) [Volume fraction] 24.8 % Critically low 36.0-48.0 [facility] Comment on above: Performed By: #### A FPTET #### [facility] [address] [place] [address] [address] Belkys Fajardo Hemoglobin (Bld) [Mass/Vol] 8.2 g/dL Critically low 12.0-16.0 [facility] Comment on above: Performed By: #### A FPTET #### [facility] [address] [place] [address] [address] Belkys Fajardo IG # 0.23 10e3/ul Critically high 0.00-0.03 [facility] Comment on above: Performed By: #### A FPTET #### [facility] [address] [place] [address] Dr. Belkys Fajardo IG % 1.5 % Critically high 0.0-0.5 [facility] Comment on above: Performed By: #### A FPTET #### [facility] [address] [place] [address] Dr. Belkys Fajardo LYMPH # 2.4 103/ul Normal 1.2-3.8 [facility] Comment on above: Performed By: #### A FPTET #### [facility] [address] [place] [address] Dr. Belkys Fajardo Lymphocytes/100 WBC (Bld) 15.5 % Critically low 20.5-60.0 [facility] Comment on above: Performed By: #### A FPTET #### [facility] [address] [place] [address] Dr. Belkys Fajardo MANUAL DIFF REQ NO Normal [facility] Comment on above: Performed By: #### A FPTET #### [facility] [address] [place] [address] Dr. Belkys Fajardo MCH (RBC) [Entitic mass] 28.5 pg Normal 26.7-34.0 [facility] Comment on above: Performed By: #### A FPTET #### [facility] [address] [place] [address] Dr. Belkys Fajardo MCHC (RBC) [Mass/Vol] 33.1 g/dL Normal 29.9-35.2 [facility] Comment on above: Performed By: #### A FPTET #### [facility] [address] [address] [address] Belkys Fajardo MCV (RBC) [Entitic vol] 86.1 fL Normal 81.0-99.0 [facility] Comment on above: Performed By: #### A FPTET #### [facility] [address] [address] [address] Belkys Fajardo MONO # 0.8 103/ul Normal 0.3-0.8 [facility] Comment on above: Performed By: #### A FPTET #### [facility] [address] [address] [address] Belkys Fajardo Monocytes/100 WBC (Bld) 5.4 % Normal 1.7-12.0 [facility] Comment on above: Performed By: #### A FPTET #### [facility] [address] [place] [address] Dr. Belkys Fajardo NEUT # 11.6 103/ul Critically high 1.4-6.5 [facility] Comment on above: Performed By: #### A FPTET #### [facility] [address] [place] [address] Dr. Belkys Fajardo Neutrophils/100 WBC (Bld) 76.4 % Critically high 43.0-75.0 [facility] Comment on above: Performed By: #### A FPTET #### [facility] [address] [address] [address] Belkys Fajardo Platelet mean volume (Bld) [Entitic vol] 10.2 fL Normal 9.5-13.5 [facility] Comment on above: Performed By: #### A FPTET #### [facility] [address] [place] [address] Dr. Belkys Fajardo PLT 235 103/ul Normal 150-450 [facility] Comment on above: Performed By: #### A FPTET #### [facility] [address] [address] [address] Belkys Fajardo RBC 2.88 106/ul Critically low 4.20-5.40 [facility] Comment on above: Performed By: #### A FPTET #### [facility] [address] [place] [address] Dr. Belkys Fajardo WBC 15.2 103/ul Critically high 4.0-11.0 [facility] Comment on above: Performed By: #### A FPTET #### [facility] [address] [place] [address] Dr. Belkys Fajardo CBC AUTO DIFFon 01-23-2022 BASO # 0.1 103/ul Normal 0.0-0.1 [facility] Comment on above: Performed By: #### A FPTET #### [facility] [address] [place] [address] Dr. Belkys Fajardo Basophils/100 WBC (Bld) 0.4 % Normal 0.2-2.0 [facility] Comment on above: Performed By: #### A FPTET #### [facility] [address] [place] [address] Dr. Belkys Fajardo EO # 0.1 103/ul Normal 0.0-0.7 [facility] Comment on above: Performed By: #### A FPTET #### [facility] [address] [place] [address] Dr. Belkys Fajardo Eosinophils/100 WBC (Bld) 0.5 % Critically low 0.9-7.0 [facility] Comment on above: Performed By: #### A FPTET #### [facility] [address] [place] [address] Dr. Belkys Fajardo Erythrocyte distribution width (RBC) [Ratio] 13.8 % Normal 11.0-15.0 [facility] Comment on above: Performed By: #### A FPTET #### [facility] [address] [place] [address] Dr. Belkys Fajardo Hematocrit (Bld) [Volume fraction] 32.5 % Critically low 36.0-48.0 [facility] Comment on above: Performed By: #### A FPTET #### [facility] [address] [place] [address] Dr. Belkys Fajardo Hemoglobin (Bld) [Mass/Vol] 11.0 g/dL Critically low 12.0-16.0 [facility] Comment on above: Performed By: #### A FPTET #### [facility] [address] [place] [address] Dr. Belkys Fajardo IG # 0.31 10e3/ul Critically high 0.00-0.03 [facility] Comment on above: Performed By: #### A FPTET #### [facility] [address] [place] [address] Dr. Belkys Fajardo IG % 1.6 % Critically high 0.0-0.5 [facility] Comment on above: Performed By: #### A FPTET #### [facility] [address] [place] [address] Dr. Belkys Fajardo LYMPH # 2.0 103/ul Normal 1.2-3.8 [facility] Comment on above: Performed By: #### A FPTET #### [facility] [address] [place] [address] Dr. Belkys Fajardo Lymphocytes/100 WBC (Bld) 10.2 % Critically low 20.5-60.0 [facility] Comment on above: Performed By: #### A FPTET #### [facility] [address] [place] [address] Dr. Belkys Fajardo MANUAL DIFF REQ NO Normal [facility] Comment on above: Performed By: #### A FPTET #### [facility] [address] [place] [address] Dr. Belkys Fajrado MCH (RBC) [Entitic mass] 28.4 pg Normal 26.7-34.0 [facility] Comment on above: Performed By: #### A FPTET #### [facility] [address] [place] [address] Dr. Belkys Fajardo MCHC (RBC) [Mass/Vol] 33.8 g/dL Normal 29.9-35.2 [facility] Comment on above: Performed By: #### A FPTET #### [facility] [address] [place] [address] Dr. Belkys Fajardo MCV (RBC) [Entitic vol] 83.8 fL Normal 81.0-99.0 [facility] Comment on above: Performed By: #### A FPTET #### [facility] [address] [address] [address] Belkys Fajardo MONO # 0.9 103/ul Critically high 0.3-0.8 [facility] Comment on above: Performed By: #### A FPTET #### [facility] [address] [place] [address] Dr. Belkys Fajardo Monocytes/100 WBC (Bld) 4.8 % Normal 1.7-12.0 [facility] Comment on above: Performed By: #### A FPTET #### [facility] [address] [place] [address] Dr. Belkys Fajardo NEUT # 16.0 103/ul Critically high 1.4-6.5 [facility] Comment on above: Performed By: #### A FPTET #### [facility] [address] [place] [address] Dr. Belkys Fajardo Neutrophils/100 WBC (Bld) 82.5 % Critically high 43.0-75.0 [facility] Comment on above: Performed By: #### A FPTET #### [facility] [address] [place] [address] Dr. Belkys Fajardo Platelet mean volume (Bld) [Entitic vol] 10.1 fL Normal 9.5-13.5 [facility] Comment on above: Performed By: #### A FPTET #### [facility] [address] [place] [address] Dr. Belkys Fajardo PLT 301 103/ul Normal 150-450 [facility] Comment on above: Performed By: #### A FPTET #### [facility] [address] [place] [address] Dr. Belkys Fajardo RBC 3.88 106/ul Critically low 4.20-5.40 [facility] Comment on above: Performed By: #### A FPTET #### [facility] [address] [address] [address] Belkys Fajardo WBC 19.3 103/ul Critically high 4.0-11.0 [facility] Comment on above: Performed By: #### A FPTET #### [facility] [address] [address] [address] Belkys Fajardo CULTURE URINEon 01-23-2022 CULTURE URINE Culture Observations: LIGHT GROWTH OF MIXED GENITAL HEYDI. NO POTENTIAL PATHOGENS SEEN. Normal [facility] Comment on above: Performed By: #### U ACSIND, UMICRO #### [facility] [address] [address] [address] Belkys Fajardo Covid-19 PCR (CVDTBH)on 12-27 SARS-CoV-2 (COVID-19) RNA DEVIN+probe Ql (Unsp spec) Not detected Normal NOT DETECTED [facility] Comment on above: Result [...] for this test is supported by the Orthopedic Coder of Health and Human Service's declaration that [...] used). Performed By: #### C VDTBH #### [facility] [address] [place], [place] [id number] Dr. Belkys Fajardo DRUG SCREEN RAPID (URINE)on 01-23-2022 AMP Negative Normal NEGATIVE [facility] Comment on above: Performed By: #### A FPTET #### [facility] [address] [id number] [address] Belkys Fajardo BAR Negative Normal NEGATIVE [facility] Comment on above: Performed By: #### A FPTET #### [facility] [address] [place] [address] Dr. Belkys Fajardo BUP Negative Normal NEGATIVE [facility] Comment on above: Performed By: #### A FPTET #### [facility] [address] [place] [address] Dr. Belkys Fajardo BZO Negative Normal NEGATIVE [facility] Comment on above: Performed By: #### A FPTET #### [facility] [address] [place] [address] Dr. Belkys Fajardo VALENCIA Negative Normal NEGATIVE [facility] Comment on above: Performed By: #### A FPTET #### [facility] [address] [place] [address] Dr. Belkys Fajardo CUT-OFFS SEE BELOW Normal [facility] Comment on above: Result Comment: AMP [...] ng/mL Performed By: #### A FPTET #### [facility] [address] [place] [address] Dr. Belkys Fajardo DRUG CUT HEADER DRUG CLASS TEST SYSTEM CUT-OFF CONCENTRATIONS ARE FOLLOWS: Normal [facility] Comment on above: Performed By: #### A FPTET #### [facility] [address] [place] [address] Dr. Belkys Fajardo mAMP Negative Normal NEGATIVE [facility] Comment on above: Performed By: #### A FPTET #### [facility] [address] [place] [address] Dr. Belkys Fajardo MTD Negative Normal NEGATIVE [facility] Comment on above: Performed By: #### A FPTET #### [facility] [address] [address] [address] Belkys Fajardo OPI Negative Normal NEGATIVE [facility] Comment on above: Performed By: #### A FPTET #### [facility] [address] [address] [address] Belkys Fajardo OXY Negative Normal NEGATIVE [facility] Comment on above: Performed By: #### A FPTET #### [facility] [address] [address] [address] Belkys Fajardo PCP Negative Normal NEGATIVE [facility] Comment on above: Performed By: #### A FPTET #### [facility] [address] [place] [address] Dr. Belkys Fajardo PPX Negative Normal NEGATIVE [facility] Comment on above: Performed By: #### A FPTET #### [facility] [address] [address] [address] Belkys Fajardo TCA Negative Normal NEGATIVE [facility] Comment on above: Performed By: #### A FPTET #### [facility] [address] [place] [address] Dr. Belkys Fajardo THC Negative Normal NEGATIVE [facility] Comment on above: Performed By: #### A FPTET #### [facility] [address] [place] [address] Dr. Belkys Fajardo TYPE AND SCREENon 01-23-2022 TYPE AND SCREEN Negative Normal [facility] Comment on above: Performed By: #### U ACSIND, UMICRO #### [facility] [address] [address] [address] Belkys Fajardo UA (CLEAN/CATCH) GANG PUNCH OPERATOR/MICRO I F IND.on 01-23-2022 Bilirubin Ql (U) Negative Normal NEGATIVE [facility] Comment on above: Performed By: #### U ACSTAMELA, UMICRO #### [facility] [address] [place] [address] Dr. Belkys Fajardo Clarity (U) CLEAR Normal CLEAR [facility] Comment on above: Performed By: #### U ACSIND, UMICRO #### [facility] [address] [address] [address] Belkys Fajardo Color (U) LT. YELLOW Normal YELLOW [facility] Comment on above: Performed By: #### U ACSIND, UMICRO #### [facility] [address] [address] [address] Belkys Fajardo Glucose Ql (U) Negative Normal NEGATIVE [facility] Comment on above: Performed By: #### U ACSIND, UMICRO #### [facility] [address] [address] [address] Belkys Fajardo Hemoglobin Ql (U) TRACE-INTACT Abnormal NEGATIVE [facility] Comment on above: Performed By: #### U ACSTAMELA, UMICRO #### [facility] [address] [place] [address] Dr. Belkys Fajardo Ketones Ql (U) Negative Normal NEGATIVE [facility] Comment on above: Performed By: #### U ACSTAMELA, UMICRO #### [facility] [address] [place] [address] Dr. Belkys Fajardo LEUKOCYTES MODERATE Abnormal NEGATIVE [facility] Comment on above: Performed By: #### U ACSTAMELA, UMICRO #### [facility] [address] [place] [address] Dr. Belkys Fajardo Nitrite Ql (U) Negative Normal NEGATIVE [facility] Comment on above: Performed By: #### U ACSTAMELA UMICRO #### [facility] [address] [place] [address] Dr. Belkys Fajardo pH (U) 6.5 [pH] Normal 5-9 [facility] Comment on above: Performed By: #### U ACSTAMELA UMICRO #### [facility] [address] [place] [address] Dr. Belkys Fajardo SPEC GRAVITY 1.015 Normal 1.005-<=1.02 5 [facility] Comment on above: Performed By: #### U ACSTAMELA UMICRO #### [facility] [address] [place], [place] [id number] Dr. Belkys Fajardo UA PROTEIN Negative Normal NEGATIVE/ TRACE [facility] Comment on above: Performed By: #### U ACSTAMELA, UMICRO #### [facility] [address] [place] [address] Dr. Belkys Fajardo UR MICRO IND INDICATED Normal [facility] Comment on above: Performed By: #### U ACSTAMELA, UMICRO #### [facility] [address] [place] [address] Dr. Belkys Fajardo Urobilinogen Qn (U) 0.2 {Jakob'U}/dL Normal 0.2 - 1. 0 [facility] Comment on above: Performed By: #### U ACSTAMELA, UMICRO #### [facility] [address] [place] [address] Dr. Belkys Fajardo URINE MICROSCOPIC ONLYon BACTERIA SMALL Abnormal NONE SEEN [facility] Comment on above: Performed By: #### U ACSTAMELA, UMICRO #### [facility] [address] [place] [address] Dr. Belkys Fajardo Bacteria identified Cx Nom (U) INDICATED Normal [facility] Comment on above: Performed By: #### U ACSTAMELA, UMICRO #### [facility] [address] [place] [address] Dr. Belkys Fajardo CAST NONE SEEN Normal NONE SEEN [facility] Comment on above: Performed By: #### U ACSTAMELA, UMICRO #### [facility] [address] [place] [address] Dr. Belkys Fajardo Crystals LM Nom (Urine sed) NONE SEEN Normal NONE SEEN [facility] Comment on above: Performed By: #### U ACSIND, UMICRO #### [facility] [address] [place] [address] Dr. Belkys Fajardo Epithelial cells LM Ql (Urine sed) FEW Abnormal NONE SEEN /RARE [facility] Comment on above: Performed By: #### U ACSIND, UMICRO #### [facility] [address] [place] [address] Dr. Belkys Fajardo MUCOUS NONE SEEN Normal NONE SEEN [facility] Comment on above: Performed By: #### U ACSIND, UMICRO #### [facility] [address] [address] [address] Belkys Fajardo RBC NONE SEEN Abnormal 0-2 [facility] Comment on above: Performed By: #### U ACSIND, UMICRO #### [facility] [address] [address] [address] Belkys Fajardo WBC 5-10 Abnormal NONE SEEN [facility] Comment on above: Performed By: #### U ACSIND, UMICRO #### [facility] [address] [address] [address] Belkys Fajardo US PREG GROWTHon 01-12-2022 [...] with growth detailed above. Electronically authenticated by: AILYN LBACK Date: 2022-01-12 21:15 Normal [facility] GROUP B STREP CULTUREon 12-26 S. agalactiae Ag Ql (Unsp spec) Culture Observations: NEGATIVE FOR GROUP B STREPTOCOCCUS. Normal [facility] Comment on above: Performed By: #### G BSCX #### [facility] [address] [address] [address] Belkys Fajardo GTT 3 HR PREGon 12-11-2021 Glucose [Mass/Vol] 91 mg/dL Normal 74-106 [facility] Comment on above: Performed By: #### G TT3P #### [facility] [address] [address] [address] Belkys Fajardo Glucose [Mass/Vol] 172 mg/dL Normal [facility] Comment on above: Performed By: #### G TT3P #### [facility] [address] [address] [address] Belkys Fajardo Glucose [Mass/Vol] 148 mg/dL Normal [facility] Comment on above: Performed By: #### G TT3P #### [facility] [address] [address] [address] Belkys Fajardo Glucose [Mass/Vol] 58 mg/dL Normal [facility] Comment on above: Performed By: #### G TT3P #### [facility] [address] [place] [address] Dr. Belkys Fajardo PREG GROWTHon 12-08-2021 US [...] with growth detailed above. Electronically authenticated by: AILYN BLACK Date: 2021-12-08 16:52 Normal [facility] GLUCOSE - 1HRon 11-12-2021 Glucose [Mass/Vol] 143 mg/dL Critically high 74-106 [facility] Comment on above: Performed By: #### U ACSIND, JENNIFERRO #### [facility] [address] [place] [address] Dr. Belkys Fajardo HEMOGRAM AND PLATELon 2021 Hematocrit (Bld) [Volume fraction] 31.7 % Critically low 36.0-48.0 [facility] Comment on above: Performed By: #### A FPTET #### [facility] [address] [place] [address] Dr. Belkys Fajardo Hemoglobin (Bld) [Mass/Vol] 10.4 g/dL Critically low 12.0-16.0 [facility] Comment on above: Performed By: #### A FPTET #### [facility] [address] [place] [address] Dr. Belkys Fajardo MCH (RBC) [Entitic mass] 28.8 pg Normal 26.7-34.0 [facility] Comment on above: Performed By: #### A FPTET #### [facility] [address] [place] [address] Dr. Belkys Fajardo MCHC (RBC) [Mass/Vol] 32.8 g/dL Normal 29.9-35.2 [facility] Comment on above: Performed By: #### A FPTET #### [facility] [address] [place] [address] Dr. Belkys Fajardo MCV (RBC) [Entitic vol] 87.8 fL Normal 81.0-99.0 [facility] Comment on above: Performed By: #### A FPTET #### [facility] [address] [place] [address] Dr. Belkys Fajardo PLT 261 103/ul Normal 150-450 [facility] Comment on above: Performed By: #### A FPTET #### [facility] [address] [place] [address] Dr. Belkys Fajardo RBC 3.61 106/ul Critically low 4.20-5.40 [facility] Comment on above: Performed By: #### A FPTET #### [facility] [address] [place] [address] Dr. Belkys Fajardo WBC 11.5 103/ul Critically high 4.0-11.0 [facility] Comment on above: Performed By: #### A FPTET #### [facility] [address] [place] [address] Dr. Belkys Fajardo US PREG PLACENTAon 2 US PREG PLACENTA EXAMINATION: US PREG PLACENTA HISTORY: Low lying placenta COMPARISON: Ultrasound placenta 10/14/2021 FINDINGS: PLACENTA: Contains a small venous seth. Lower margin of placenta 3.5 cm from os. CERVIX LENGTH: 4.0 cm, closed. HEART RATE: 155 bpm OTHER: None. IMPRESSION: 1. Posterior placenta which is no longer low-lying. Electronically authenticated by: AILYN BLACK Date: 2021-11-10 21:07 Normal [facility] US PREG PLACENTAon 2 US PREG PLACENTA EXAMINATION: US PREG PLACENTA HISTORY: Low lying placenta COMPARISON: Ultrasound anatomy 09/16/2021 FINDINGS: PLACENTA: Posterior with lower margin 2.5 cm from os. CERVIX LENGTH: 4.4 cm, closed. HEART RATE: 157 bpm OTHER: None. IMPRESSION: 1. Low-lying posterior placenta; no appreciable change compared to prior study. Electronically authenticated by: AILYN BLACK Date: 2021-10-14 19:56 Normal [facility] US PREG ANATOMY SINGLEon US PREG [...] cm from internal os. Electronically authenticated by: AILYN BLACK Date: 2021-09-16 16:54 Normal [facility] AFP TETRA PROFILE (MATERNAL) on 09-06-2021 PDF . Normal [facility] Comment on above: Performed By: #### A FPTET #### [facility] [address] [address] [address] Belkys Fajardo AFP MoM 0.86 Normal [facility] Comment on above: Performed By: #### A FPTET #### [facility] [address] [address] [address] Belkys Fajardo AFP Value 39.7 ng/mL Normal [facility] Comment on above: Performed By: #### A FPTET #### [facility] [address] [address] [address] Belkys Fajardo Comment Comment Normal [facility] Comment on above: Result Comment: Geremias Greer, Ph.D., [facility] Director . References: Available Upon Request. . Multiples Of Median Cutoffs Abbreviation Definitions For AFP Elevations IDD- Insulin Dep Diabetes Granados 2.5 Black 2.8 OSBR- Open Spina Bifida IDD 2.0 Twins 4.5 Risk DSR Cutoff 1:270 DSR- Down Syndrome Risk T18 Cutoff 1:100 T18- Trisomy 18 . Down Syndrome and Trisomy 18 screening are considered Investigational . For further inquiries contact [facility] at [phone]. Performed By: #### A FPTET #### [facility] [address] [address] [address] Belkys Fajardo MONIE MoM 0.77 Normal [facility] Comment on above: Performed By: #### A FPTET #### [facility] [address] [address] [address] Belkys Fajardo MONIE Value 113.50 pg/mL Normal [facility] Comment on above: Performed By: #### A FPTET #### [facility] [address] [address] [address] Belkys Fajardo DSR (By Age) 1 [place] 765 Normal [facility] Comment on above: Performed By: #### A FPTET #### [facility] [address] [address] [address] Belkys Fajardo DSR (Second Trimester) [address] [place] [address] [facility] Comment on above: Performed By: #### A FPTET #### [facility] [address] [place] [address] Dr. Belkys Doe. Age on Collection Date 20.[address] [facility] Comment on above: Performed By: #### A FPTET #### [facility] [address] [place] [address] Dr. Belkys Fajardo Gestat. Age Based On LMP [facility] Comment on above: Result Comment: 03/30 Performed By: #### A FPTET #### [facility] [address] [place] [address] Dr. Belkys Fajardo hCG MoM 0.78 Normal [facility] Comment on above: Performed By: #### A FPTET #### [facility] [address] [address] [address] Belkys Fajardo HCG Qn m[IU]/mL [facility] Comment on above: Performed By: #### A FPTET #### [facility] [address] [place] [address] Dr. Belkys Fajardo Insulin Dep Diabetes No Normal [facility] Comment on above: Performed By: #### A FPTET #### [facility] [address] [place] [address] Dr. Belkys Fajardo Interpretation Comment Normal [facility] Comment on above: Result Comment: Inte [...] identifies 60% of Trisomy 18 pregnancies. The [place] recommends amniocentesis be offered to women age 35 and older. Recalculations are not recommended when gestational dating by LMP and ultrasound are within 10 days. Performed By: #### A FPTET #### [facility] [address] [place] [address] Dr. Belkys Fajardo [age] Normal [facility] Comment on above: Performed By: #### A FPTET #### [facility] [address] [place] [address] Dr. Belkys Fajardo Multiple Gestation No Normal [facility] Comment on above: Performed By: #### A FPTET #### [facility] [address] [place] [address] Dr. Belkys Fajardo OSBR [place] 1 [place] [address] Normal [facility] Comment on above: Performed By: #### A FPTET #### [facility] [address] [place] [address] Dr. Belkys Fajardo Race Normal [facility] Comment on above: Performed By: #### A FPTET #### [facility] [address] [place] [address] Dr. Belkys Fajardo Results Report Normal [facility] Comment on above: Performed By: #### A FPTET #### [facility] [address] [place] [address] Dr. Belkys Fajardo T18 (By Age) 1:2981 Normal [facility] Comment on above: Performed By: #### A FPTET #### [facility] [address] [place], [place] [id number] Dr. Belkys Fajardo T18 Risk Not increased Normal [facility] Comment on above: Performed By: #### A FPTET #### [facility] [address] [place] [address] Dr. Belkys Fajardo Test Results: Negative Normal [facility] Comment on above: Performed By: #### A FPTET #### [facility] [address] [place] [address] Dr. Belkys Fajardo uE[address] MoM [address] [facility] Comment on above: Performed By: #### A FPTET #### [facility] [address] [place] [address] Dr. Belkys Fajardo uE3 Value 2.26 ng/mL [facility] Comment on above: Performed By: #### A FPTET #### [facility] [address] [place] [address] Dr. Belkys Fajardo PAP ACOG PANEL 2: 21 to 29on 08-24-2021 . . Normal [facility] Comment on above: Result Comment: Perf ormed at: BA Performed By: #### [id number] #### [facility] [address] [place] [address] Dr. Belkys Fajardo Age Gdln ACOG Testing [facility] Comment on above: Performed By: #### [id number] #### [facility] [address] [place] [address] Dr. Belkys Fajardo DIAGNOSIS: Comment Normal [facility] Comment on above: Result Comment: NEGA TIVE FOR INTRAEPITHELIAL LESION OR MALIGNANCY. Performed at: BA Performed By: #### [id number] #### [facility] [address] [place] [address] Dr. Belkys Fajardo Methodology: Comment [facility] Comment on above: Result Comment: This liquid based ThinPrep(R) pap test was screened with the use of an image guided system. Performed at: WB Performed By: #### [id number] #### [facility] [address] [place] [address] Dr. Belkys Fajardo Note: Comment [facility] Comment on above: Result Comment: The Pap smear is a screening test designed to aid in the detection of premalignant and malignant conditions of the uterine cervix. It is not a diagnostic procedure and should not be used as the sole means of detecting cervical cancer. Both false-positive and false-negative reports do occur. . Performed at: WB Performed By: #### [id number] #### [facility] [address] [place] [address] Dr. Belkys Fajardo Performed by: Comment Normal [facility] Comment on above: Result Comment: Vicky Avila, Consumer Loan Underwriter (ASCP) Performed at: BA Performed By: #### [id number] #### [facility] [address] [place] [address] Dr. Belkys Fajardo Reflex Criteria: Comment Normal [facility] Comment on above: Result Comment: The HPV DNA reflex criteria were not met with this specimen result therefore, no HPV testing was performed. . Performed at: BA Performed By: #### [id number] #### [facility] [address] [place] [address] Dr. Belkys Fajardo Specimen adequacy: Comment Normal [facility] Comment on above: Result Comment: Sati sfactory for evaluation. No endocervical component is identified. Performed at: BA Performed By: #### [id number] #### [facility] [address] [place] [address] Dr. Belkys Fajardo CBC AUTO DIFFon 08-22-2021 BASO # 0.0 103/ul Normal 0.0-0.1 [facility] Comment on above: Performed By: #### C BC #### [facility] [address] [place] [address] Dr. Belkys Fajardo Basophils/100 WBC (Bld) 0.2 % Normal 0.2-2.0 [facility] Comment on above: Performed By: #### C BC #### [facility] [address] [place] [address] Dr. Belkys Fajardo EO # 0.2 103/ul Normal 0.0-0.7 [facility] Comment on above: Performed By: #### C BC #### [facility] [address] [place] [address] Dr. Belkys Fajardo Eosinophils/100 WBC (Bld) 1.9 % Normal 0.9-7.0 [facility] Comment on above: Performed By: #### C BC #### [facility] [address] [place] [address] Dr. Belkys Fajardo Erythrocyte distribution width (RBC) [Ratio] 13.4 % Normal 11.0-15.0 [facility] Comment on above: Performed By: #### C BC #### [facility] [address] [place] [address] Dr. Belkys Fajardo Hematocrit (Bld) [Volume fraction] 32.7 % Critically low 36.0-48.0 [facility] Comment on above: Performed By: #### C BC #### [facility] [address] [place] [address] Dr. Belkys Fajardo Hemoglobin (Bld) [Mass/Vol] 11.0 g/dL Critically low 12.0-16.0 [facility] Comment on above: Performed By: #### C BC #### [facility] [address] [place] [address] Dr. Belkys Fajardo IG # 0.05 10e3/ul Critically high 0.00-0.03 [facility] Comment on above: Performed By: #### C BC #### [facility] [address] [place] [address] Dr. Belkys Fajardo IG % 0.5 % Normal 0.0-0.5 [facility] Comment on above: Performed By: #### C BC #### [facility] [address] [place] [address] Dr. Belkys Fajardo LYMPH # 2.3 103/ul Normal 1.2-3.8 [facility] Comment on above: Performed By: #### C BC #### [facility] [address] [place] [address] Dr. Belkys Fajardo Lymphocytes/100 WBC (Bld) 22.4 % Normal 20.5-60.0 [facility] Comment on above: Performed By: #### C BC #### [facility] [address] [place] [address] Dr. Belkys Fajardo MANUAL DIFF REQ NO Normal [facility] Comment on above: Performed By: #### C BC #### [facility] [address] [place] [address] Dr. Belkys Fajardo MCH (RBC) [Entitic mass] 29.3 pg Normal 26.7-34.0 [facility] Comment on above: Performed By: #### C BC #### [facility] [address] [place] [address] Dr. Belkys Fajardo MCHC (RBC) [Mass/Vol] 33.6 g/dL Normal 29.9-35.2 [facility] Comment on above: Performed By: #### C BC #### [facility] [address] [place] [address] Dr. Belkys Fajardo MCV (RBC) [Entitic vol] 87.2 fL Normal 81.0-99.0 [facility] Comment on above: Performed By: #### C BC #### [facility] [address] [place] [address] Dr. Belkys Fajardo MONO # 0.6 103/ul Normal 0.3-0.8 [facility] Comment on above: Performed By: #### C BC #### [facility] [address] [place] [address] Dr. Belkys Fajardo Monocytes/100 WBC (Bld) 5.5 % Normal 1.7-12.0 [facility] Comment on above: Performed By: #### C BC #### [facility] [address] [place] [address] Dr. Belkys Fajardo NEUT # 7.1 103/ul Critically high 1.4-6.5 [facility] Comment on above: Performed By: #### C BC #### [facility] [address] [place] [address] Dr. Belkys Fajardo Neutrophils/100 WBC (Bld) 69.5 % Normal 43.0-75.0 [facility] Comment on above: Performed By: #### C BC #### [facility] [address] [address] [address] Belkys Fajardo Platelet mean volume (Bld) [Entitic vol] 10.3 fL Normal 9.5-13.5 [facility] Comment on above: Performed By: #### C BC #### [facility] [address] [place] [address] Dr. Belkys Fajardo PLT 258 103/ul Normal 150-450 [facility] Comment on above: Performed By: #### C BC #### [facility] [address] [address] [address] Belkys Fajardo RBC 3.75 106/ul Critically low 4.20-5.40 [facility] Comment on above: Performed By: #### C BC #### [facility] [address] [place] [address] Dr. Belkys Fajardo WBC 10.2 103/ul Normal 4.0-11.0 [facility] Comment on above: Performed By: #### C BC #### [facility] [address] [place] [address] Dr. Belkys Fajardo CTA CHEST WO W CONon 08-22-2 022 CTA CHEST WO W CON CTA [...] ROSARIO HERNANDEZ Date: 2021-08-22 08:31 Normal [facility] Covid-19 PCR (CVDTB)on 07-27 SARS-CoV-2 (COVID-19) RNA DEVIN+probe Ql (Unsp spec) Not detected Normal NOT DETECTED [facility] Comment on above: Result [...] for this test is supported by the [place] of Health and Human Service's declaration that [...] used). Performed By: #### C VDTBH #### [facility] [address] [place] [address] Dr. Belkys Fajardo PROF 14(COMP METB)on 022 Albumin [Mass/Vol] 3.0 g/dL Critically low 3.4-5.0 [facility] Comment on above: Performed By: #### A FPTET #### [facility] [address] [place] [address] Dr. Belkys Fajardo Albumin/Globulin [Mass ratio] 0.8 {ratio} Normal [facility] Comment on above: Performed By: #### A FPTET #### [facility] [address] [place] [address] Dr. Belkys Fajardo ALP [Catalytic activity/Vol] 52 U/L Normal 46-116 [facility] Comment on above: Performed By: #### A FPTET #### [facility] [address] [place] [address] Dr. Belkys Fajardo ALT [Catalytic activity/Vol] 32 U/L Normal 14-59 [facility] Comment on above: Performed By: #### A FPTET #### [facility] [address] [place] [address] Dr. Belkys Fajardo Anion gap [Moles/Vol] 12.8 mmol/L Normal [facility] Comment on above: Performed By: #### A FPTET #### [facility] [address] [place] [address] Dr. Belkys Fajardo AST [Catalytic activity/Vol] 17 U/L Normal 15-37 [facility] Comment on above: Performed By: #### A FPTET #### [facility] [address] [place] [address] Dr. Belkys Fajardo Bilirubin [Mass/Vol] 0.3 mg/dL Normal 0.2-1.0 [facility] Comment on above: Performed By: #### A FPTET #### [facility] [address] [place] [address] Dr. Belkys Fajardo Calcium [Mass/Vol] 8.5 mg/dL Normal 8.5-10.[address] [facility] Comment on above: Performed By: #### A FPTET #### [facility] [address] [place] [address] Dr. Belkys Fajardo Chloride [Moles/Vol] 103 mmol/L Normal 98-107 [facility] Comment on above: Performed By: #### A FPTET #### [facility] [address] [place] [address] Dr. Belkys Fajardo CO2 [Moles/Vol] 24.7 mmol/L Normal 21.0-32.0 [facility] Comment on above: Performed By: #### A FPTET #### [facility] [address] [place] [address] Dr. Belkys Fajardo Creatinine [Mass/Vol] 0.46 mg/dL Critically low 0.55-1.02 [facility] Comment on above: Performed By: #### A FPTET #### [facility] [address] [place] [address] Dr. Belkys Fajardo EGFR-AF BARBADIAN >60 Normal >=60 [facility] Comment on above: Performed By: #### A FPTET #### [facility] [address] [place] [address] Dr. Belkys Fajardo EGFR-NON AF BARBADIAN >60 Normal >=60 [facility] Comment on above: Performed By: #### A FPTET #### [facility] [address] [address] [address] Belkys Fajardo Globulin (S) [Mass/Vol] 3.7 g/dL Normal [facility] Comment on above: Performed By: #### A FPTET #### [facility] [address] [address] [address] Belkys Fajardo Glucose [Mass/Vol] 84 mg/dL Normal 74-[address] [facility] Comment on above: Performed By: #### A FPTET #### [facility] [address] [place] [address] Dr. Belkys Fajardo Potassium [Moles/Vol] 3.5 mmol/L Normal 3.5-5.1 [facility] Comment on above: Performed By: #### A FPTET #### [facility] [address] [place] [address] Dr. Belkys Fajardo Protein [Mass/Vol] 6.7 g/dL Normal 6.4-8.2 [facility] Comment on above: Performed By: #### A FPTET #### [facility] [address] [place] [address] Dr. Belkys Fajardo Sodium [Moles/Vol] 137 mmol/L Normal 136-145 [facility] Comment on above: Performed By: #### A FPTET #### [facility] [address] [address] [address] Belkys Fajardo Urea nitrogen [Mass/Vol] 7.0 mg/dL Normal 7.0-18.0 [facility] Comment on above: Performed By: #### A FPTET #### [facility] [address] [place] [address] Dr. Belkys Fajardo Urea nitrogen/Creatinine [Mass ratio] 15.2 mg/mg Normal [facility] Comment on above: Performed By: #### A FPTET #### [facility] [address] [place] [address] Dr. Belkys Fajardo TROPONIN, HIGH SENSITIVITYon 08-22-2021 HSTROP <4.0 Normal 4.0-51.3 [facility] Comment on above: Result Comment: CUT- OFF POINTS HAVE BEEN ESTABLISHED BASED ON THE FOURTH UNIVERSAL DEFINITIONS OF MYOCARDIAL INFARCTION. THE UPPER REFERENCE LIMIT (URL) OF TROPONIN, DEFINED THE 99TH PERCENTILE OF cTnI DISTRIBUTION IN A REFERENCE POPULATION, HAS BEEN CONFIRMED THE DECISION THRESHOLD FOR OR DIAGNOSIS. Performed By: #### A FPTET #### [facility] [address] [place] [address] Dr. Belkys Fajardo CHLAMYDIA/GONOCOCCUS DEVIN (SW AB/URINE/PAPon 08-21-2021 Chlamydia trachomatis, DEVIN Negative Normal Negative [facility] Comment on above: Performed By: #### C T/NGNA #### [facility] [address] [place] [address] Dr. Belkys Fajardo Neisseria gonorrhoeae, DEVIN Negative Normal Negative [facility] Comment on above: Performed By: #### C T/NGNA #### [facility] [address] [place] [address] Dr. Belkys Fajardo VAGINITIS/VAGINOSIS DNA PROB Gab 08-20-2021 Lani species Negative Normal Negative [facility] Comment on above: Performed By: #### A FPTET #### [facility] [address] [place] [address] Dr. Belkys Fajardo Gardnerella vaginalis Negative Normal Negative [facility] Comment on above: Performed By: #### A FPTET #### [facility] [address] [place] [address] Dr. Belkys Fajardo Trichomonas vaginalis Negative Normal Negative [facility] Comment on above: Performed By: #### A FPTET #### [facility] [address] [place] [address] Dr. Belkys Fajardo Vital Signs Date Time Vital Sign Value Performing Clinician Facility 12-20-2024 15:01-0400 Body mass index (BMI) [Ratio] 25.53 kg/m2 Deshaun Ob [facility] 12-20-2024 15:01-0400 Body weight 73.94 kg Deshaun Ob [facility] 12-20-2024 15:01-0400 Diastolic blood pressure 72 mm[Hg] Deshaun Ob [facility] 12-20-2024 15:01-0400 Systolic blood pressure 118 mm[Hg] Deshaun Ob [facility] 12-06-2024 14:32-0400 Body mass index (BMI) [Ratio] 25.97 kg/m2 Reanna PUENTE Work Phone: [facility] 12-06-2024 14:32-0400 Body weight 75.21 kg Reanna PUENTE Work Phone: [facility] 12-06-2024 14:32-0400 Diastolic blood pressure 68 mm[Hg] Reanna PUENTE Work Phone: [facility] 12-06-2024 14:32-0400 Systolic blood pressure 120 mm[Hg] Reanna PUENTE Work Phone: [facility] 07-11-2024 16:16-0400 Body mass index (BMI) [Ratio] 26.31 kg/m2 Jordan Deshaun DO Work Phone: [facility] 07-11-2024 16:16-0400 Body weight 76.2 kg Jordan Deshaun DO Work Phone: [facility] 07-11-2024 16:16-0400 Diastolic blood pressure 74 mm[Hg] Jordan Deshaun DO Work Phone: [facility] 07-11-2024 16:16-0400 Systolic blood pressure 120 mm[Hg] Jordan Deshaun DO Work Phone: [facility] 01-11-2024 10:49-0400 Body height 172.72 cm [facility] 01-11-2024 10:49-0400 Body mass index (BMI) [Ratio] 26.9 kg/m2 [facility] 01-11-2024 10:49-0400 Body temperature 98.2 [degF] [facility] 01-11-2024 10:49-0400 Body weight 80.28 kg [facility] 01-11-2024 10:49-0400 Diastolic blood pressure 73 mm[Hg] [facility] 01-11-2024 10:49-0400 Heart rate 84 /min [facility] 01-11-2024 10:49-0400 Respiratory rate 18 /min [facility] 01-11-2024 10:49-0400 SaO2% (BldA) [Mass fraction] 97 % [facility] 01-11-2024 10:49-0400 Systolic blood pressure 111 mm[Hg] [facility] 12-20-2023 10:27-0400 Body mass index (BMI) [Ratio] 28.72 kg/m2 Jordan Deshaun DO Work Phone: [facility] 12-20-2023 10:27-0400 Body weight 83.19 kg Jordan Deshaun DO Work Phone: [facility] 12-20-2023 10:27-0400 Diastolic blood pressure 78 mm[Hg] Jordan Deshaun DO Work Phone: [facility] 12-20-2023 10:27-0400 Systolic blood pressure 116 mm[Hg] Jordan Deshaun DO Work Phone: [facility] 11-16-2023 11:43-0400 Body mass index (BMI) [Ratio] 29.88 kg/m2 Jordan Deshaun DO Work Phone: [facility] 11-16-2023 11:43-0400 Body weight 86.55 kg Jordan Deshaun DO Work Phone: [facility] 11-16-2023 11:43-0400 Diastolic blood pressure 60 mm[Hg] Jordan Deshaun DO Work Phone: [facility] 11-16-2023 11:43-0400 Systolic blood pressure 110 mm[Hg] Jordan Deshaun DO Work Phone: [facility] 06-25-2024 23:41-0400 Heart rate 94 /min Brittni Yibal DO Work Phone: [facility] 09-20-2023 23:41-0400 SaO2% (BldA) [Mass fraction] 98 % Brittni William DO Work Phone: [facility] 09-20-2023 23:38-0400 Diastolic blood pressure 71 mm[Hg] Brittni William DO Work Phone: [facility] 09-20-2023 23:38-0400 Systolic blood pressure 125 mm[Hg] Brittni William DO Work Phone: [facility] 09-20-2023 21:18-0400 Body temperature 98.6 [degF] Brittni William DO Work Phone: [facility] 09-20-2023 21:18-0400 Respiratory rate 20 /min Brittni Yibal DO Work Phone: [facility] 09-20-2023 21:16-0400 Body height 172.7 cm Brittni William DO Work Phone: [facility] 09-20-2023 21:16-0400 Body mass index (BMI) [Ratio] 27.67 kg/m2 Brittni William DO Work Phone: [facility] 09-20-2023 21:16-0400 Body weight 82.56 kg Brittni William DO Work Phone: [facility] 07-28-2022 10:15-0400 Body height 170.18 cm Nick Ball Other [facility] Other 07-28-2022 10:15-0400 Body mass index (BMI) [Ratio] 27.81 kg/m2 Nick Ball Other [facility] Other 07-28-2022 10:15-0400 Body weight 80.56 kg Nick Ball Other [facility] Other 07-28-2022 10:15-0400 Diastolic blood pressure 75 mm[Hg] Nick Leonardo Other [facility] Other 07-28-2022 10:15-0400 Systolic blood pressure 112 mm[Hg] Nick Leonardo Other [facility] Other 06-04-2022 17:00-0500 Body height 170.18 cm Cristal Chao Other [facility] Other 06-04-2022 17:00-0500 Body mass index (BMI) [Ratio] 28.19 kg/m2 Cristal Guidry Other [facility] Other 06-04-2022 17:00-0500 Body temperature 97.4 [degF] Cristal Guidry Other [facility] Other 06-04-2022 17:00-0500 Body weight 81.65 kg Cristal Guidry Other [facility] Other 06-04-2022 17:00-0500 Respiratory rate 18 /min Cristal Guidry Other [facility] Other 06-04-2022 17:00-0500 SaO2% (BldA) [Mass fraction] 98 % Cristal Guidry Other [facility] Other 09-06-2021 02:05-0400 Body weight 77.[address] JORDAN MEADE . [facility] Comment on above: Performed By: #### AFPTET #### [facility] [address] [place] [address] Dr. Belkys Fajardo Encounters Encounter Date Encounter Type Care Provider Facility Start: 12-20-2024 End: 12-20-2024 ambulatory Deshaun Nurse [facility] Comment on above: GA: 9w1d Start: 12-06-2024 End: 12-06-2024 Office outpatient visit 15 minutes Reanna PUENTE Work Phone: [facility] Comment on above: Bleeding in early pr egnancy (HHS-HCC); Nausea Start: 12-06-2024 End: 12-06-2024 ambulatory REANNA SADLER Not Available Start: 11-28-2024 End: 11-28-2024 Emergency department patient visit Antonio Emery Facility:[facility] Start: 07-11-2024 End: 07-11-2024 ambulatory JORDAN DESHAUN Not Available Start: 07-11-2024 End: 07-11-2024 Patient encounter procedure Jordan Deshaun DO Work Phone: [facility] Start: 07-11-2024 End: 07-11-2024 Periodic preventive med est patient 18-39 yrs Jordan Deshaun DO Work Phone: [facility] Comment on above: Well woman exam with routine gynecological exam; Abnormal uterine bleeding (AUB) Start: 07-11-2024 End: 07-11-2024 Bamboo flowsheet Jordan Deshaun DO Work Phone: [facility] Start: 07-11-2024 End: 07-16-2024 Bamboo flowsheet Jordan Deshaun DO Work Phone: [facility] Start: 07-11-2024 End: 07-16-2024 Clinisync Result Encounter Jordan Deshaun DO Work Phone: [facility] Unsolicited Start: 01-11-2024 End: 01-11-2024 ambulatory [facility] Work Phone: Start: 01-11-2024 End: 01-11-2024 Patient encounter procedure [facility] Work Phone: Start: 12-20-2023 End: 12-20-2023 care visit Jordan Deshaun DO Work Phone: [facility] Comment on above: 6 weeks f ollow-up; Encounter for female control Start: 11-16-2023 End: 11-16-2023 Bamboo flowsheet Jordan Deshaun DO Work Phone: [facility] Start: 11-16-2023 End: 11-16-2023 Bamboo flowsheet Jordan Deshaun DO Work Phone: [facility] Start: 11-16-2023 End: 11-16-2023 Postop follow up visit related to original px Jordan Deshaun DO Work Phone: [facility] Comment on above: S/P section Start: 09-20-2023 End: 09-21-2023 Emergency department patient visit [facility] Comment on above: Tachycardia (Primary Dx); POTS (postural orthostatic tachycardia syndrome) Start: 07-28-2023 End: 07-30-2023 ambulatory [facility] Start: 07-26-2023 End: 07-26-2023 Emergency department patient visit [facility] Start: 07-25-2023 End: 07-27-2023 ambulatory [facility] Start: 07-28-2022 End: 07-28-2022 ambulatory Nick Leonardo Other [facility] Other Start: 07-28-2022 Office outpatient vi sit 15 minutes Nick Leonardo [facility] Start: 07-28-2022 Telephone encounter Nick Leonardo [facility] Start: 06-04-2022 End: 06-04-2022 ambulatory Cristal Guidry Other [facility] Other Start: 06-04-2022 Office outpatient ne w 20 minutes Cristal Guidry [facility] Start: 02-01-2022 End: 02-01-[address] JORDAN MEADE . Facility: Start: 01-23-2022 End: 01-27-2022 Evaluation and management of inpatient DR NICK LEONARDO Facility:[facility] Start: 01-12-2022 End: 01-13-[address] JORDAN MEADE . Facility:[facility] Start: 01-06-2022 End: 01-06-[address] JORDAN MEADE . Facility:[facility] Start: 12-11-2021 End: 12-12-[address] JORDAN MEADE . Facility:[facility] Start: 12-08-2021 End: 12-09-[address] JORDAN MEADE . Facility:[facility] Start: 11-12-2021 End: 11-13-[address] JORDAN MEADE . Facility:[facility] Start: 11-10-2021 End: 11-11-[address] JORDAN MEADE . Facility:[facility] Start: 10-14-2021 End: 10-15-[address] JORDAN MEADE . Facility:[facility] Start: 09-16-2021 End: 09-17-[address] JORDAN MEADE . Facility:[facility] Start: 09-04-2021 End: 09-05-[address] JORDAN MEADE . Facility:[facility] Start: 08-22-2021 End: 08-22-[address] CAMILO GREENE Facility:[facility] Start: 08-18-2021 End: 08-18-[address] JORDAN MEADE . Facility:[facility] Start: 04-10-2021 End: 04-10-2021 Subsequent hospital visit by physician [facility] Traffic [employer] [facility] EKG Comment on above: Palpitations; Post-COVID chronic palpitations; Shortness of breath; Lightheaded; Dizziness Procedures Date Procedure Procedure Detail Performing Clinician Start: 12-20-2024 Urnls dip stick/tabl et rgnt non-auto w/o micrscp Jordan Deshaun DO Work Phone: Start: 12-06-2024 Urine test visual color cmprsn meths Reanna PUENTE Work Phone: Start: 07-11-2024 Urnls dip stick/tabl et rgnt non-auto w/o micrscp Jordan Deshaun DO Work Phone: Start: 07-11-2024 IGP,APTIMA HPV,AGE GDLN Jordan Maede DO Work Phone: Start: 09-20-2023 Ct thorax w/contrast material Brittni William DO Work Phone: Start: 09-20-2023 Ecg routine ecg w/le ast 12 lds w/i&r Brittni William DO Work Phone: Start: 09-20-2023 End: 09-20-2023 Comprehensive metabolic panel Brittni William DO Work Phone: Start: 01-23-2022 Repair Rectum, Open Approach DR JORDAN MEADE . Start: 01-23-2022 Delivery of Products of Conception, External Approach DR JORDAN MEADE . Start: 01-23-2022 Division of Female Perineum, External Approach DR JORDAN MEADE . Start: 01-23-2022 Drainage of Amniotic Fluid, Therapeutic from Products of Conception, Via Natural or Artificial Opening DR JORDAN MEADE . H/O: section S/P sectio n Jordan Meade DO Work Phone: Plan of Treatment Date Care Activity Detail Author Start: 2052 Respiratory Syncytia l Virus (RSV) or age 60 yrs+ (1 - 1-dose 60+ series) Respiratory Syncytial Virus (RSV) or age 60 yrs+ (1 - 1-dose 60+ series) [facility] Start: 01-16-2025 End: 01-16-2025 Patient encounter procedure 01/16/2025 3:00 PM EDT Routine [facility] [address] [place] [address] Jordan Meade DO [address] [place] [address] [facility] Start: 12-20-2024 End: 12-20-2024 ambulatory 12/20/2024 2:30 PM EDT Initial [facility] [address] [place] [address] [facility] Start: 12-20-2024 End: 12-20-2025 ABO/Rh ABO/Rh Lab Routine Missed menses , unspecified gestational age ([facility]) Expected: 12/20/2024 (Approximate), Expires: 12/20/2025 [facility] Comment on above: Expected: 12/20/2024 (Approximate), Expires: 12/20/2025 Start: 12-20-2024 End: 12-20-2025 Blood type and Indirect antibody screen panel - Blood Type and screen Lab Routine Missed menses , unspecified gestational age ([facility]) Expected: 12/20/2024 (Approximate), Expires: 12/20/2025 [facility] Work Phone: Comment on above: Expected: 12/20/2024 (Approximate), Expires: 12/20/2025 Start: 12-20-2024 End: 12-20-2025 Drugs of abuse panel - Urine by Screen method Rapid drug screen, urine Lab Routine , unspecified gestational age ([facility]) Encounter for supervision of normal first in first trimester ([facility]) Expected: 12/20/2024 (Approximate), Expires: 12/20/2025 [facility] Comment on above: Expected: 12/20/2024 (Approximate), Expires: 12/20/2025 Start: 12-20-2024 End: 12-20-2024 Professional / ancillary services management 12/20/2024 2:00 PM EDT Ancillary Procedure [facility] [address] [place] [id number] [facility] Start: 07-11-2024 End: 07-11-2024 Patient encounter procedure 07/11/2024 4:00 PM EDT Office Visit [facility] [address] [place] [id number] Jordan Meade DO [address] [place] [address] [facility] Start: 12-20-2023 End: 12-20-2023 ambulatory 12/20/2023 10:10 AM EDT Visit [facility] [address] [place] [address] Jordan Meade DO [address] [place] [address] [facility] Start: 10-31-2023 End: 10-31-2023 Patient encounter procedure 10/31/2023 1:20 PM EDT Office Visit [facility] [address] [address] Ailyn Marquez MD [address] [place] [id number] 8 week [facility] Comment on above: 8 week Start: 10-27-2023 Influenza vaccination Flu vacc ine (Season Ended) [facility] Start: 2022 Screening for malign ant neoplasm of cervix [facility] Start: 04-15-2021 End: 04-15-2021 Patient encounter procedure 04/15/2021 Office Visit Cardiology Ailyn Marquez MD [address] [place] [id number] [facility] Start: 11-26-2020 Influenza vaccination Flu vaccine (# 1) [facility] Start: 10-08-2020 DTaP/Tdap/Td vaccine (7 - Td or Tdap) DTaP/Tdap/Td vaccine (7 - Td or Tdap) [facility] Start: 2013 Screening for malign ant neoplasm of cervix Pap smear [facility] Start: 2010 Hepatitis C screening Hepatitis C sc reen [facility] Start: 10-30-2007 HIV screening HIV screen [facility] Start: 2004 Depression Screen Depression Screen [facility] Start: 1997 COVID-19 Vaccine (1) COVID-19 Vaccin e (1) [facility] Start: 1993 Varicella vaccine (1 of 2 - 2-dose childhood series) Varicella vaccine (1 of 2 - 2-dose childhood series) [facility] Start: 05-01-1993 COVID-19 Vaccine (#1) COVID-19 Vacci ne (#1) [facility] Start: 1992 Hepatitis C screening Hepatitis C [facility] Bacteria identified in Urine by Culture Urine culture Microbiology Routine Missed menses Ordered: 12/20/2024 [facility] Comment on above: Ordered: 12/20/2024 CBC W Auto Different ial panel - Blood CBC and differential Lab Routine Missed menses , unspecified gestational age (HHS-HCC) Ordered: 12/20/2024 [facility] Comment on above: Ordered: 12/20/2024 Ct thorax w/contrast material CT CHEST PULMONARY EMBOLISM W CONTRAST Imaging STAT 09/20/2023 9:55 PM EDT [facility] Cytology Cervical or vaginal smear or scraping study Pap Smear Pathology and Cytology Routine Well woman exam with routine gynecological exam Ordered: 07/11/2024 [facility] Work Phone: Comment on above: Ordered: 07/11/2024 EKG 12 Lead EKG 12 Lead ECG STAT 09/20/2023 9:21 PM EDT [facility] Hemoglobin A1c/Hemoglobin.total in Blood Hemoglobin A1c Lab Routine Missed menses , unspecified gestational age (HHS-HCC) Ordered: 12/20/2024 [facility] Comment on above: Ordered: 12/20/2024 Hepatitis B virus surface Ag [Presence] in Serum or Plasma by Immunoassay Hepatitis B surface antigen Lab Routine Missed menses , unspecified gestational age (HHS-HCC) Ordered: 12/20/2024 [facility] Comment on above: Ordered: 12/20/2024 Hepatitis C virus Ab [Presence] in Serum or Plasma by Immunoassay Hepatitis C antibody Lab Routine Missed menses , unspecified gestational age (HHS-HCC) Ordered: 12/20/2024 [facility] Comment on above: Ordered: 12/20/2024 HIV-1/HIV-2 antigen/antibody combination immunoassay HIV-1 and HIV-2 antibodies Lab Routine Missed menses , unspecified gestational age (HHS-HCC) Ordered: 12/20/2024 [facility] Comment on above: Ordered: 12/20/2024 Human papilloma viru s DNA [Presence] in Unspecified specimen by Probe with amplification HPV DNA probe, amplified Microbiology Routine Well woman exam with routine gynecological exam Ordered: 07/11/2024 [facility] Comment on above: Ordered: 07/11/2024 Reagin Ab [Presence] in Serum by RPR RPR Lab Routine Missed menses , unspecified gestational age ([facility]) Ordered: 12/20/2024 [facility] Comment on above: Ordered: 12/20/2024 Rubella antibody, IgG Rubella an tibody, IgG Lab Routine Missed menses , unspecified gestational age ([facility]) Ordered: 12/20/2024 [facility] Comment on above: Ordered: 12/20/2024 Payers Date Payer Category Payer [facility] Health [facility] [id number] 2022 Unknown [facility] [id number] 2022-Present [phone] [address] [id number] .[id number] 2018 Unknown [id number] .[id number] 1992 Unknown [id number] 2.16.840.1.998249.3.579 .2.593 1992 Unknown [id number] 2.16.840.1.600338.3.579 .2.593 1992 Unknown [id number] 2.16.840.1.094366.3.579 .2.593 1992 Unknown [id number] 2.16.840.1.290623.3.579 .2.593 1992 Unknown [id number] 2.16.840.1.303929.3.579 .2.593 1992 Unknown [id number] 2.16.840.1.703577.3.579 .2.593 1992 Unknown [id number] 2.16.840.1.489519.3.579 .2.593 1992 Unknown [id number] 2.16.840.1.608022.3.579 .2.593 1992 Unknown [id number] 2.16.840.1.858464.3.579 .2.593 1992 Unknown [id number] 2.16840.1.190692.3.579 .2.593 1992 Unknown [id number] 2.16840.1.255419.3.579 .2.593 1992 Unknown [id number] 2.16840.1.241969.3.579 .2.593 1992 Unknown [id number] 2.16840.1.830739.3.579 .2.593 1992 Unknown [id number] 2.16840.1.010159.3.579 .2.173 1992 Unknown [id number] 2.16.840.1.761508.3.579 .2.173 1992 Unknown [id number] 2.16.840.1.935331.3.579 .2.173 1992 Unknown [id number] 2.16.840.1.383428.3.579 .2.173 1992 Unknown [id number] 2.16840.1.006608.3.579 .2.727 1992 Unknown [id number] 2.16.840.1.991255.3.579 .2.727 1992 Unknown [id number] 2.16.840.1.009410.3.579 .2.9 1992 Unknown [id number] 2.16.840.1.451101.3.579 .2.9 1992 Unknown [id number] 2.16.840.1.273454.3.579 .2.9 1992 Unknown [id number] 2.16.840.1.538460.3.579 .2.9 1992 Unknown [id number] 2.16.840.1.414386.3.579 .2.1259 1959 Unknown [id number] Social History Date Type Detail Facility Start: 08-29-2014 End: 04-14-2023 Tobacco smoking status [facility] Never smoked tobacco [facility] Phone: Start: 08-29-2014 End: 04-14-2023 Tobacco use and exposure Smokeless tobacco non-user [facility] Phone: Start: 03-09-2021 End: 12-20-2024 Alcohol intake Current drinker of alcohol (finding) [facility] Phone: Start: 03-09-2021 End: 12-20-2023 Alcohol intake [facility] Start: 08-29-2014 History SDOH Alcohol Comment occ. [facility] Phone: Start: 1990 Sex Assigned At Not on file [facility] Phone: Start: 04-14-2023 End: 12-20-2023 Sex Assigned At [facility] Start: 01-11-2024 Tobacco smoking status [facility] Ex-smoker (finding) [facility] Start: 1992 Sex Assigned At Female F [facility] Start: 04-14-2023 Alcohol Comment caffeine: occa sional soda [facility] Start: 02-24-2023 [facility] Read-Only, Retired: Physical Abuse Denies [facility] Clinical Notes 08-22-2021 to 12-20-2024 Huma Young MA - 12/20/2024 2:30 PM CINDI Byrnes - 12/06/2024 2:00 PM Lindy Betancur LPN - 07/11/2024 4:00 PM Lindy Betancur LPN - 12/20/2023 10:10 AM EDTDischarge InstructionsAttachments Note Date & Type Note Facility 12-20-2024 History of Presen t illness Narrative Reason for Appointment: Patient ID: Rossy Dozier is a 34 y.o. female who presents [...] which includes the following prescription(s): metoprolol succinate xl and ondansetron odt. Medical History: Active Ambulatory Problems [...] Vitals: Estimated body mass index is 25.53 kg/m as calculated from the following: Height as of 22: 5' 7 . Weight as of this encounter: 163 lb. BP: 118/72 Patient's last menstrual period was 10/17/2024. Assessment/Plan Diagnoses and all orders for this visit: Twin gestation in first trimester, unspecified multiple gestation type ([facility]) - US OB transvaginal; Future Amenorrhea 9 weeks gestation of ([facility]) First trimester ([facility]) Missed menses - Type and screen; Future - ABO/Rh; Future - CBC and differential - Hemoglobin A1c - RPR - Rubella antibody, IgG - Hepatitis B surface antigen - Hepatitis C antibody - HIV-1 and HIV-2 antibodies - Urine culture - POCT , urine manually resulted - POCT urinalysis dipstick manually resulted , unspecified gestational age ([facility]) - Type and screen; Future - ABO/Rh; Future - CBC and differential - Hemoglobin A1c - RPR - Rubella antibody, IgG - Hepatitis B surface antigen - Hepatitis C antibody - HIV-1 and HIV-2 antibodies - Rapid drug screen, urine; Future Encounter for supervision of normal first in first trimester ([facility]) - Rapid drug screen, urine; Future Nurse Note: Pt was given [place] billion to one was advised to take both labs and unity to [facility]. [facility]U. Follow Up: Patient is to have labs drawn at directed and return to office for initial OB appointment with provider. Patient may call office as needed with any concerns or questions. Nurse Visit Completed by: Huma Young MA documented in this encounter [facility] 12-06-2024 History of Presen t illness Narrative Reason for Appointment: Patient ID: Rossy Dozier is a 34 y.o. female who presents for Bleeding in early Patient presents today for Return OB appointment. MEDICATIONS Current Outpatient Medications Medication Instructions metoprolol succinate XL (TOPROL-XL) 25 mg, Daily ondansetron ODT (ZOFRAN-ODT) 4 mg, Oral, Every 6 hours PRN Slynd 4 mg, Oral, Daily ALLERGIES No Known Allergies PROBLEMS Active Ambulatory Problems Diagnosis Date Noted No Active Ambulatory Problems Resolved Ambulatory Problems Diagnosis Date Noted No Resolved Ambulatory Problems Past Medical History: Diagnosis Date Anxiety attack Broken arm 1997 Chronic constipation H/O bilateral breast implants Intermittent palpitations Near syncope Postural orthostatic tachycardia syndrome Sinus tachycardia Supraventricular tachycardia (HCC) Varicella zoster Ventricular ectopy HISTORY PAST MEDICAL HISTORY SOCIAL HISTORY Past Medical History: Diagnosis Date Anxiety attack Broken arm 1997 Chronic constipation in childhood H/O bilateral breast implants Intermittent palpitations Near syncope Postural orthostatic tachycardia syndrome Sinus tachycardia Supraventricular tachycardia (HCC) Varicella zoster Ventricular ectopy Social History Tobacco [...] Exam Constitutional: Appearance: Normal appearance. She is normal weight. HENT: Head: Normocephalic. Cardiovascular: Rate and Rhythm: Normal rate. Pulses: Normal pulses. Pulmonary: Effort: Pulmonary effort is normal. Breath sounds: Normal breath sounds. Abdominal: Palpations: Abdomen is soft. Musculoskeletal: General: Normal range of motion. Neurological: General: No focal deficit present. Mental Status: She is alert and oriented to person, place, and time. Psychiatric: Mood and Affect: Mood normal. Behavior: Behavior normal. Thought Content: Thought content normal. Judgment: Judgment normal. Vitals and nursing note reviewed. Vitals: Estimated body mass index is 25.97 kg/m as calculated from the following: Height as of 03/09/22: 5' 7 . Weight as of this encounter: 165 lb 12.8 oz. BP: 120/68 Patient's last menstrual period was 10/17/2024. ASSESSMENT & PLAN ICD-10-CM 1. Bleeding in early ([facility]) O20.9 POCT , urine manually resulted 2. Nausea R11.0 ondansetron ODT (Zofran-ODT) 4 MG disintegrating tablet Patient presents for an er follow up due to vaginal bleeding in new . Pt found to have UTI and on keflex. Bleeding has since stopped. Pt for intact in two weeks. Documented by CINDI Manning on behalf of: CINDI Manning documented in this encounter [facility] 11-28-2024 Note ED Patient Education Note Obstetrics and Gynecology Vaginal Bleeding During , First Trimester A small amount of bleeding from the vagina, or spotting, is common during early . Some bleeding may be related to the , and some may not. In many cases, the bleeding is normal and is not a problem. However, bleeding can also be a sign of something serious. Normal things that may cause bleeding during the first trimester: ??? Implantation of the fertilized egg in the lining of the uterus. ??? Rapid changes in blood vessels. This is caused by changes that are happening to the body during . ??? Sex. ??? Pelvic exams. Abnormal things that may cause bleeding during the first trimester include: ??? Infection or inflammation of the cervix. ??? Growths or polyps on the cervix. ??? Miscarriage or threatened miscarriage. ??? that is growing outside of the uterus (ectopic ). ??? A fertilized egg that becomes a mass of tissue (molar ). Tell your health care provider right away if there is any bleeding from your vagina. Follow these instructions at home: Monitoring your bleeding Monitor your bleeding. ??? Pay attention to any changes in your symptoms. Let your health care provider know about any concerns. ??? Try to understand when the bleeding occurs. Does the bleeding start on its own, or does it start after something is done, such as sex or a pelvic exam? Use a diary to record the things you see about your bleeding, including: ? The kind of bleeding you are having. Does the bleeding start and stop irregularly, or is it a constant flow? ? The severity of your bleeding. Is the bleeding heavy or light? ? The number of pads you use each day, how often you change them, and how soaked they are. ??? Tell your health care provider if you pass tissue. He or she may want to see it. Activity ??? Follow instructions from your health care provider about limiting your activity. Ask what activities are safe for you. ??? Do not have sex until your health care provider says that this is safe. ??? If needed, make plans for someone to help with your regular activities. General instructions ??? Take gjwk-std-gbdomyv and prescription medicines only as told by your health care provider. ??? Do not take aspirin because it can cause bleeding. ??? Do not use tampons or douche. ??? Keep all follow-up visits. This is important. Contact a health care provider if: ??? You have vaginal bleeding during any part of your . ??? You have cramps or labor pains. ??? You have a fever or chills. Get help right away if: ??? You have severe cramps in your back or abdomen. ??? You pass large clots or a large amount of tissue from your vagina. ??? Your bleeding increases. ??? You feel light-headed or weak, or you faint. ??? You are leaking fluid or have a gush of fluid from your vagina. Summary ??? A small amount of bleeding from the vagina is common during early . ??? Be sure to tell your health care provider about any vaginal bleeding right away. ??? Try to understand when bleeding occurs. Does bleeding occur on its own, or does it occur after something is done, such as sex or pelvic exams? Keep all follow-up visits. This is important. This information is not intended to replace advice given to you by your health care provider. Make sure you discuss any questions you have with your health care provider. Document Revised: 12/04/2020 Document Reviewed: 12/04/2020 Quantitative Medicine Patient Education ? 2023 [employer] [facility] 07-11-2024 History of Presen t illness Narrative Reason for Appointment: Patient ID: Rossy Dozier is a 33 y.o. female who presents [...] nursing note reviewed. Exam conducted with a director for beauty school present. Vitals: Estimated body mass index is [...] by Wilma Betancur LPN on behalf of: Jordan Meade DO documented in this encounter [facility] 12-20-2023 History of Presen t illness Narrative Reason for Appointment: Patient ID: Rossy Dozier is a 33 y.o. female who presents [...] nursing note reviewed. Exam conducted with a director for beauty school present. Vitals: Estimated body mass index is [...] by Wilma Betancur LPN on behalf of: Jordan Meade DO documented in this encounter [facility] 11-16-2023 History of Presen t illness Narrative Reason for Appointment: Patient ID: Rossy Dozier is a 33 y.o. female who presents for 1 week s/p c section Patient presents today for 1 Week Post Op Follow Up appointment. MEDICATIONS Current Outpatient Medications Medication Instructions ibuprofen 800 mg, Oral, Every 8 hours metoprolol succinate XL (TOPROL-XL) 25 mg, Oral, Daily oxyCODONE-acetaminophen (Percocet) 5-325 MG tablet 1 tablet, Oral, Every 4 hours PRN Zntlhpgw-Hij-Yc-FA (, w/Iron & FA,) 27-0.8 MG tablet [...] nursing note reviewed. Exam conducted with a director for beauty school present. Vitals: Estimated body mass index is [...] by Wilma Betancur LPN on behalf of: Jordan Meade DO documented in this encounter [facility] 09-21-2023 Hospital Discharg e instructions Brittni William DO - 09/21/2023 12:24 AM EDT Continue to drink plenty of fluids. Follow-up with your doctor in the next 2 to 3 days. Return if you have any worsening symptoms. The following attachments cannot be sent through Care Everywhere.POTS (Postural Orthostatic Tachycardia Syndrome): General Info (Guamanian)documented in this encounter [facility] 07-28-2022 Evaluation note Encounter Date Diagnosis Assessment Notes July, Strain of neck muscle, initial encounter (ICD-10 - S16.1XXA) ROM exercises, heat/ice and Tylenol Hold Motrin and trial Prednisone July, Occipital lymphadenopathy (ICD-10 - R59.0) Monitor for now. Soft and tender indicate inflammatory in character, should resolve July, Sebaceous cyst (ICD-10 - L72.3) Monitor for now may not need treatment [facility] Other 03-10-2023 Evaluation note* Encounter Date Diagnosis [...] other viral communicable diseases (ICD-10 - Z20.828) [facility] Other 2022 NoteOPERATIVE NOTE OPERATION DATE: 02/18/2022 PROCEDURE: Repair of fourth degree perineal laceration. PREOPERATIVE DIAGNOSIS: Fourth degree perineal laceration. POSTOPERATIVE DIAGNOSIS: Fourth degree perineal laceration. ANESTHESIA: Epidural SURGEON: Jordan Meade D.O. FIBER TECHNOLOGIST: BOBO Cole URINE OUTPUT: Yellow and clear. [...] was taken to recovery in stable condition.[facility] [id number] NoteOP Note OPERATION DATE: 01/23/2022 PROCEDURE: Repair of fourth degree perineal laceration. PREOPERATIVE DIAGNOSIS: Fourth degree perineal laceration. POSTOPERATIVE DIAGNOSIS: Fourth degree perineal laceration. ANESTHESIA: Epidural SURGEON: Jordan Meade D.O. FIBER TECHNOLOGIST: BOBO Cole URINE OUTPUT: Yellow and clear. [...] was taken to recovery in stable condition.[facility] [phone] NoteOPERATIVE NOTE OPERATION DATE: 02/10/2022 PROCEDURE: Repair of fourth degree laceration. PREOPERATIVE DIAGNOSIS: Fourth degree laceration. POSTOPERATIVE DIAGNOSIS: Fourth degree laceration. ANESTHESIA: General. SURGEON: Jordan Meade D.O. FIBER TECHNOLOGIST: BOBO URINE OUTPUT: Yellow and clear. BLOOD [...] sheath and this was done in a zuxazz-kt-etwun fashion. This was performed using 3-0 Vicryl. [...] x2. The patient tolerated this procedure well.[facility] 08-22-2021 NotePROCEDURE: XR CHEST 1 V, 08/22/2021 [...] authenticated by: DERIC VO Date: 2021-08-22 07:30[facility]* Diagnosis Palpitations Post-COVID chronic palpitations Shortness of breath Lightheaded Dizziness and giddiness Dizziness Dizziness and giddiness documented in this encounter [facility] Phone: evaluation noteNo InformationNoripley [facility] Healthy [employer] Other Evaluation note* Diagnosis Onset Date Resolution Status Viral URI with cough acute Contact with and (suspected) exposure to covid-19 noneactive [facility] Work Phone: Evaluation note* Diagnosis S/P section Other postprocedural status documented in this encounter [facility] HealthcareEvaluation note* Diagnosis 6 weeks follow-up Encounter for female control documented in this encounter [facility] HealthcareEvaluation note* Diagnosis Tachycardia- Primary Tachycardia, unspecified POTS (postural orthostatic tachycardia syndrome) Tachycardia, unspecified [facility]* Diagnosis Well woman exam with routine gynecological exam Routine gynecological examination Abnormal uterine bleeding (AUB) documented in this encounter [facility] HealthcareEvaluation note* Diagnosis Bleeding in early ([facility]) Unspecified hemorrhage in early , unspecified as to episode of care Nausea Nausea alone documented in this encounter [facility] HealthcareEvaluation note* Diagnosis Twin gestation in first trimester, unspecified multiple gestation type ([facility]) Twin gestation in first trimester, unspecified multiple gestation type ([facility]) Amenorrhea Absence of menstruation 9 weeks gestation of ([facility]) First trimester ([facility]) state, incidental Missed menses , unspecified gestational age ([facility]) Encounter for supervision of normal first in first trimester ([facility]) documented in this encounter [facility] HealthcareHistory general Narrative - Reported* Type Description Date Medical History POTS Medical History sinus tachycardia Surgical History 4th degree vaginal tear after g iving 2021 [facility] Other History general Narrative - Reported* Type Description Date Medical History POTS Medical History sinus tachycardia Medical History Anxiety, generalized Surgical History 4th degree vaginal tear after g iving 2021 Surgical History MASTOPEXY OF BOTH BR EASTS WITH INSERTION OF SALINE IMPLANTS Hospitalization History SEE SURGICAL HX [facility] Other Reason for Referral Specialty Diagnoses / Procedures Referred By Willy smith Referred To Contact Cardiology Diagnoses Palpitations Post-COVID chronic palpitations Shortness of breath Lightheaded Dizziness Procedures Holter Monitor 24 Hour Ailyn Marquez MD [address] [place] [phone] Referral ID Status Reason Start Date Expiration Date Visits Re quested Visits Authorized [id number] Open 03/09/2021 03/09/2022 1 1 Advance Directives No Advanced Directives Records FoundDocuments on File Type Date Recorded Patient Relocation Director Expl anation ACP-Advance Directive ACP-Power of Merchandise Worker Advance Directive Response Recorded Date/ Time Advance Directives No July 30, 2023 10:42am Summary Purpose Family History No Family History Records Found Relationship Condition Age at Onset Recorded Date/T bettye mother Heart disease Unknown father Supraventricular tachycardia Unknown Chief Complaint and Reason for Visit Chief Complaint Sinus congestion, so re throat Reason for Visit Viral URI with cough Contact with and (suspected) exposure to covid-19 Additional Source Comments Reason for Visit (unrecogniz ed section and content) Specialty Diagnoses / Procedures Referred By Contac t Referred To Contact Cardiology Diagnoses Palpitations Post-COVID chronic palpitations Shortness of breath Lightheaded Dizziness Procedures Holter Monitor 24 Hour Ailyn Marquez MD [address] [place] [id number] Referral ID Status Reason Start Date Expiration Date Visits Re quested Visits Authorized [id number] Open 03/09/2021 03/09/2022 1 1 Reason Comments 1 week s/p c section Reason Comments Care Reason Comments Shortness of Breath For the past three h ours. Hx of POTS, sent by Laura for rule out PE. Patient is appox. 32 weeks Tachycardia Patient reports inte rmittent high heart rates for the past three hours Reason Comments Gynecologic Exam Reason Comments Bleeding in early Reason Comments Amenorrhea Care Teams (unrecognized sec tion and content) Wheel Blocker Relationship Specialty Start Date End Date Nick Leonardo DO [address] [place] [address] PCP - General Internal Medicine 03/09/21 Team Status: Active Member Role Status Dates Opal Cristina MD Primary Care Provider Active Team Status: Inactive Member Role Status Dates Gini Alvarado APRN Attending Provider Active S tart: January 11, 2024 End: January 11, 2024 Opal Cristina MD Primary Care Provider Active Start: January 11, 2024 End: January 11, 2024 Wheel Blocker Relationship Specialty Start Date End Date Opal Cristina MD [address] [place] [address] PCP - General Family Medicine 07/25/23 INFORMATION SOURCE (unrecogn ized section and content) DATE CREATED AUTHOR 07/01/2022 [facility] DATE CREATED AUTHOR AUTHOR'S ORGANIZ ATION 09/22/2023 [facility] DATE CREATED AUTHOR AUTHOR'S ORGANIZ ATION 12/11/2023 [facility] DATE CREATED AUTHOR AUTHOR'S ORGANIZ ATION 11/30/2024 [facility] DATE CREATED AUTHOR AUTHOR'S ORGANIZ ATION 12/14/2024 [facility] DATE CREATED AUTHOR AUTHOR'S ORGANIZ ATION 12/27/2024 [facility] EPIC Goals (unrecognized section [...] BE BASED ON THE PRIMARY CLINICAL RECORDS. [employer] provides no warranty or guarantee of the accuracy or completeness of information in this document.
--- NOTE | 2024-12-31 14:12 | ECG_ITS ---
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 Measurements Intervals [place] Rate: 82 P: 33 WA: 126 QRS: 94 QRSD: 78 T: 55 QT: 368 QTc: 407 Interpretive Statements 1100 Sinus rhythm 7102 Moderate right axis deviation 9110 normal ECG Compared to ECG 05/17/2023 21:08:04 No significant changes Electronically Signed On 12-31-2024 18:30:29 EDT by YVETTE KOEHLER M.D.
--- NOTE | 2024-12-31 14:43 | ED_ITS ---
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 It was found to be low. She normally has blood pressure around 120/80. The readings they got in the office just before the patient was brought to our emergency department for evaluation were closer to 100/52 - after being 108/54 in the morning when the symptoms began. This is her third . She told me that during her second , especially during the third trimester, she had similar symptoms. I saw her during that last when she was about 12 weeks with similar symptoms. She sees a digital solutions architect regularly and her echocardiogram and other testing have been normal with the exception of resting tachycardia which sometimes will get up to [address] 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 Related Data Home Medications ?Medication ?Instructions ?Recorded ?Confirmed metoprolol succinate 25 mg 25 mg PO DAILY 05/17/2309/19 tablet,extended release 24 hr ondansetron HCl 4 mg tablet 4 mg PO Q6H PRN nausea and vomiting 05/17/23 12/31/24 vitamins with calcium 1 tab PO DAILY 12/31/24 12/31/24 no.72-iron 27 mg-folic acid 1 mg tablet (M- Plus) Previous Rx's ?Medication ?Instructions ?Recorded cephalexin 500 mg capsule 500 mg PO BID 7 days #14 cap s 12/31/24 Allergies Allergy/AdvReac Type Severity Reaction Status Date / Time No Known Drug Allergies Allergy Verified 05/17/23 20:31 Opioid HPI Opioid Management Most Recent Opioid Data: Last Pain Scale 6 11/13/23, 14:13 Ur Phencyclidine Scrn, (NEGATIVE) Negative , 05:45 PFSH PFSH Medical History (Updated 12/31/24 @ 16:07 by Joaquim Cespedes) delivery delivered ?O82 - Encounter for delivery without indication (ICD-10) Social History Smoking status: Never smoker Little interest or pleasure in doing things: not at all Feeling down, depressed, or hopeless: not at all Exam Narrative Exam Narrative: Nurses notes and vital signs reviewed and patient is not hypoxic. afebrile General: Well-appearing and in no apparent distress. Skin: Warm, dry, no pallor noted. No rash. Eye: Pupils are equal, round and EOMI. No scleral icterus. Ears, Nose, Mouth, and Throat: TM are clear, no posterior oropharynx erythema or nasal mucosal hypertrophy, uvula is mid-line Oral mucosa is moist Cardiovascular: Regular Rate and Rhythm without murmur, gallop or rub. Respiratory: No accessory muscle use or respiratory distress. Lungs are clear to auscultation, no wheezing, rales or rhonchi Musculoskeletal: normal ROM, no calf or popliteal tenderness, no lower extremity edema/swelling GI: Abdomen is soft, non-distended. Normal bowel sounds. No solid or pulsatile masses appreciated. No tenderness to palpation. No rebound, guarding, or rigidity noted. Neurological: A&O x4. No cranial nerve dysfunction observed. No truncal ataxia. Moves all extremities. Sensation intact. Psychiatric: Cooperative and interactive. Normal mood and affect. Constitutional Vital Signs, click to edit/add: Last Vital Signs Temp 97.9 F 12/31/24 13:52 Pulse 88 12/31/24 16:10 Resp 16 12/31/24 16:10 BP 112/66 12/31/24 16:07 Pulse Ox 99 12/31/24 13:52 O2 Del Method Room Air 12/31/24 13:52 Course Vital Signs Vital signs: Vital Signs Temperature 97.9 F 12/31/24 13:52 Pulse Rate 98 H 12/31/24 13:52 Respiratory Rate 18 12/31/24 13:52 Blood Pressure 110/78 12/31/24 13:52 Pulse Oximetry 99 12/31/24 13:52 Oxygen Delivery Method Room Air 12/31/24 13:52 Temperature 97.9 F 12/31/24 13:52 Pulse Rate 88 12/31/24 16:10 Respiratory Rate 16 12/31/24 16:10 Blood Pressure 112/66 12/31/24 16:07 Pulse Oximetry 99 12/31/24 13:52 Oxygen Delivery Method Room Air 12/31/24 13:52 Medical Decision Making MDM Narrative Medical decision making narrative: Patient was placed on monitoring and evaluation advisor and EKG obtained. Blood drawn and sent for evaluation. Orthostatics were obtained and were abnormal -blood pressure decreased to 98/50 on standing. she was ordered to receive a liter of normal saline IV fluid. I also asked her to give us a urine sample for testing. CBC and BMP were normal. Normal Mag. Urinalysis reveals trace ketones, large leukocyte esterase, elevated white cells , elevated blood. There is an elevated amount of squamous epithelial cells. But I will go ahead and treat this patient prophylactically and we will use a culture to decide on any additional intervention. Patient family informed of our findings and plan for treatment as well as diagnosis and need for follow-up. She was given a 2nd liter of NS IVF before discharge when BP recheck was 112/66. Medical Records Medical records reviewed: Yes I reviewed the patient's medical records Medical records narrative: As detailed in HPI Lab Data Lab results reviewed: Yes I reviewed the patient's lab results Labs: Lab Results 12/31/24 12/31/24 Range/Units 14:51 15:48 WBC 11.3 H (4.0-11.0) 10^3/uL RBC 3.98 L (4.20-5.40) 10^6/uL Hgb 11.6 L (12.0-16.0) g/dL Hct 34.1 L (36.0-48.0) % MCV 85.7 (81.0-99.0) fL MCH 29.1 (26.7-34.0) pg MCHC 34.0 (29.9-35.2) g/dL RDW 13.0 (11.0-15.0) % Plt Count 314 (150-450) 10^3/uL MPV 10.4 (9.5-13.5) fL Neut % (Auto) 67.1 (43.0-75.0) % Lymph % (Auto) 24.9 (20.5-60.0) % Throckmorton % (Auto) 5.9 (1.7-12.0) % Eos % (Auto) 1.5 (0.9-7.0) % Baso % (Auto) 0.2 (0.2-2.0) % Neut # (Auto) 7.6 H (1.4-6.5) 10^3/uL Lymph # (Auto) 2.8 (1.2-3.8) 10^3/uL Throckmorton # (Auto) 0.7 (0.3-0.8) 10^3/uL Eos # (Auto) 0.2 (0.0-0.7) 10^3/uL Baso # (Auto) 0.0 (0.0-0.1) 10^3/uL Abs Immat Gran (auto) 0.04 H (0.00-0.03) 10^3/uL Imm/Tot Granulo (auto) 0.4 (0.0-0.5) % Sodium 138 (136-145) mmol/L Potassium 3.5 (3.5-5.1) mmol/L Chloride 102 (98-107) mmol/L Carbon Dioxide 25.8 (21.0-32.0) mmol/L Anion Gap 13.7 BUN 11.0 (7.0-18.0) mg/dL Creatinine 0.50 L (0.55-1.02) mg/dL Est GFR ( Amer) >60 (>=60 mL/min/1.73m^2) Est GFR (Non-Af Amer) >60 (>=60 mL/min/1.73m^2) BUN/Creatinine Ratio 22.0 Glucose 85 (74-106) mg/dL Calcium 8.5 (8.5-10.1) mg/dL Magnesium 2.0 (1.8-2.4) mg/dL Urine Color Lt. yellow (YELLOW) Urine Clarity Clear (CLEAR) Urine pH 6.5 (5.0-9.0) Ur Specific Strang 1.010 (1.005-1.025) Urine Protein Negative (NEG/TRACE) mg/dL Urine Glucose (UA) Negative (NEGATIVE) mg/dL Urine Ketones Trace A (NEGATIVE) mg/dL Urine Occult Blood Negative (NEGATIVE) Urine Nitrite Negative (NEGATIVE) Urine Bilirubin Negative (NEGATIVE) Urine Urobilinogen 0.2 (0.2-1.0) EU/dL Ur Leukocyte Esterase Large A (NEGATIVE) Urine RBC 0-2 (0-2) #/HPF Urine WBC 5-10 A (NONE SEEN) #/HPF Ur Squamous Epith Cells Few A (NONE/RARE) #/LPF Urine Crystals None seen (None Seen) #/HPF Urine Bacteria Moderate A (NONE SEEN) #/HPF Urine Casts None seen (NONE SEEN) #/LPF Urine Mucus None seen (NONE SEEN) Ur Culture Indicated? [place] [place] Data Attestation: I personally reviewed and interpreted this ECG as follows: Interpretation: EKG interpretation:Emergency Department physician interpretation.Normal sinus rhythm at 82bpm.moderate right axis deviation, normal intervals and no ST segment elevation or depression. Discharge Plan Discharge Chief Complaint: Recheck/Abnormal Lab/Rx Clinical Impression: Orthostatic hypotension, POTS (postural orthostatic tachycardia syndrome), UTI (urinary tract infection) Patient Disposition: Home, Self-Care Time of Disposition Decision: 15:20 Prescriptions / Home Meds: New cephalexin 500 mg capsule 500 mg PO BID 7 Days Qty: 14 0RF No Action metoprolol succinate 25 mg tablet extended release 24 hr 25 mg PO DAILY ondansetron HCl 4 mg tablet 4 mg PO Q6H PRN (Reason: nausea and vomiting) M-[place] Plus 27 mg iron- 1 mg tablet 1 tab PO DAILY Print Language: Luxembourger Instructions: Hypotension (ED), Urinary Tract Infection in (ED), POTS (Postural Orthostatic Tachycardia Syndrome) (ED) Referrals: Jordan Meade DO [Physician, OIL WELL DIRECTIONAL SURVEYOR] - As soon as possible
[2024-12-31] MEDS: 0.9 % SODIUM CHLORIDE 1,000 ML 999 ML IV (14:56)
[2024-12-31 15:02] LABS: Hematocrit 34.1 % (36.0-48.0); Hemoglobin 11.6 g/dL (12.0-16.0); Immature Granulocytes Abs Auto 0.04 10^3/uL (0.00-0.03); Immature Granulocytes Pct Auto 0.4 % (0.0-0.5); Lymphocytes Absolute Auto 2.8 10^3/uL (1.2-3.8); Mean Corpuscular HGB Conc 34.0 g/dL (29.9-35.2); Mean Corpuscular Hemoglobin 29.1 pg (26.7-34.0); Mean Corpuscular Volume 85.7 fL (81.0-99.0); Platelet Count 314 10^3/uL (150-450); Red Blood Count 3.98 10^6/uL (4.20-5.40); White Blood Count 11.3 10^3/uL (4.0-11.0)
[2024-12-31 15:10] LABS: Anion Gap 13.7; Blood Urea Nitrogen 11.0 mg/dL (7.0-18.0); Calcium 8.5 mg/dL (8.5-10.1); Carbon Dioxide 25.8 mmol/L (21.0-32.0); Chloride 102 mmol/L (98-107); Estimated GFR (African America >60 (>=60 mL/min/1.73m^2); Estimated GFR (Non-African Ame >60 (>=60 mL/min/1.73m^2); Glucose 85 mg/dL (74-106); Magnesium 2.0 mg/dL (1.8-2.4); Potassium 3.5 mmol/L (3.5-5.1); Sodium 138 mmol/L (136-145)
[2024-12-31 16:00] LABS: Glucose Urine UA NEGATIVE (NEGATIVE)
[2024-12-31] MEDS: 0.9 % SODIUM CHLORIDE 1,000 ML 1000 ML IV (16:16)
[2024-12-31 16:18] LABS: Cast Seen? NONE SEEN #/LPF (NONE SEEN); Crystals Seen? None Seen #/HPF (None Seen); Urine Culture Indicated YES-FRMC
[2024-12-31] MEDS: CEPHALEXIN 500 MG CAPSULE PO (17:26)
== END 2024-12-31 17:36 | disposition home or self-care (01) ==
PROVIDERS: Emergency Provider Emergency Medicine; PCP Family Medicine
DX: O23.41 Unspecified infection of urinary tract in pregnancy, first trimester (principal); N39.0 Urinary tract infection, site not specified; Z3A.10 10 weeks gestation of pregnancy; O99.411 Diseases of the circulatory system complicating pregnancy, first trimester; G90.A Postural orthostatic tachycardia syndrome [POTS]; I95.1 Orthostatic hypotension
CPT/HCPCS: 36415; 80048; 81001; 83735; 85025; 87086; 93005; 99285

== ENCOUNTER 2025-01-16 16:09 | Outpatient (OUT) | payer OTHER, SELFPAY ==
--- OUTSIDE RECORDS SUMMARY | 2024-11-16 06:15 | XMS_ITS ---
Author Organization [facility] [place] Address [address] [place] [address] Care Team Providers Care Bracer Name Role Phone Opal Cristina Primary Care Provider [phone] REASON FOR VISIT -1 Month Follow Up- Encounters Encounter Location Date Provider Diagnosis [address] [address] 11/16/2024 Opal Cristina Plan Of Treatment No Information Progress Notes * Rossy GUTIERREZDOB: [birth year] (34 yo F)Acc No.[id number]:11/16/2024 UNLOCKED PROGRESS NOTE Established Patient: Rossy ALEX :?Opal Cristina MDDOB:1990???Age:34 Y ???Sex:FemaleDate:11/16/2024Phone:[phone]:[address] [place] [phone] Subjective: * Chief Complaints: * 1 . -1 Month Follow Up-. * Medical History: Objective: * Vitals: Assessment: Plan: * Treatment: * * Electronic signature of Opal Cristina MD, [id number] on 01/16/2025 at 03:03 PM EDTSign off status: PendingVisit Status:?CANC (Cancelled) * Provider: Parish Cristina MD Date: 0 11/16/2024 Generated for Printing/Faxing/eTransmitting on:?01/16/2025 03:03 PM EDT
--- OUTSIDE RECORDS SUMMARY | 2025-01-16 15:00 | XMS_ITS | Encounter Summary ---
Author Organization [facility] Address [address] [place] [address] Care Team Providers Care Thread Laster Name Role Phone Unavailable Primary Care Provider Unavailabl e Reason for Visit * ReasonCommentsRoutine Visit Encounter Details DateTypeDepartmentCare Team (Latest Contact Info)Tphppkystym13/22/2025 3:00 PM EDTRoutine [facility] [address] [place] [id number] Jordan Meade DO [address] [place] [id number] Second trimester ([facility]); 13 weeks gestation of ([facility]); POTS (postural orthostatic tachycardia syndrome) Social History Tobacco UseTypesPacks/DayYears UsedDateSmoking Tobacco: NeverSmokeless Tobacco: NeverAlcohol UseStandard Drinks/WeekCommentsYes0 (1 standard drink = 0.6 oz pure alcohol)caffeine: occasional sodaEstimated Date of DeliveryCommentsYes 07/24/2025ased on last menstrual period of 10/17/2024Sex and Gender Information ValueDate RecordedSex Assigned at BirthNot on fileLegal NnqRelvtg61/15/2023 7:01 PM EDTGender IdentityNot on fileSexual OrientationNot on filedocumented as of this encounter Last Filed Vital Signs Vital SignReadingTime TakenCommentsBlood Socgzfmr417/7201/16/2025 3:19 PM EDT Pulse--Temperature--Respiratory Rate--Oxygen Saturation--Inhaled Oxygen Concentration--Rjlnal61.9 kg (165 lb 1.9 oz)01/16/2025 3:19 PM EDTHeight--Body Mass Index25.8603/09/2022 12:00 PM ESTdocumented in this encounter Progress Notes * Wilma Betancur, MANAGING MANAGER - 01/16/2025 3:00 PM EDT Reason for Appointment: Patient ID: Rossy Gutierrez is a 34 y.o. female who presents for Routine Visit Patient presents today for Return OB appointment. MEDICATIONS Current Outpatient Medications Medication Instructions metoprolol succinate XL (TOPROL-XL) 25 mg, Daily ALLERGIES No Known Allergies PROBLEMS Active [...] nursing note reviewed. Exam conducted with a manifold operator present. Vitals: Estimated body mass index is 25.86 kg/m?? as calculated from the following: Height as of 03/09/22: 5' 7 . Weight as of this encounter: 165 lb 1.9 oz. BP: 110/72 Patient's last menstrual period was 10/17/2024. Assessment/Plan ICD-10-CM 1. Second trimester ([facility]) Z34.92 2. 13 weeks gestation of ([facility]) Z3A.13 POCT urinalysis dipstick manually resulted 3. POTS (postural orthostatic tachycardia syndrome) G90.A New OB: Patient presents today for 1st time obstetrics appointment with provider. Patient is currently 13w0d . Patients history has been reviewed in great detail including any potential risks. Patient stated she currently has no complaints. Expectations throughout regarding labs, ultrasounds, and appointments have been discussed with the patient in detail. It was reiterated that the patient is to drink 6-8 glasses of water a day, eat 6 small meals a day, do not consume raw or undercooked meat, and stay away from [facility]. Patient has been consulted regarding any further do's and don'tsof . Patient voiced understanding and all questions and concerns were answered. Pt has POTS- went to ED for 2 bags of fluid. Pt advised to drink water and gatroade lyte. Pt voiced understanding. Orders Placed This Encounter Procedures POCT urinalysis dipstick manually resulted Follow Up: Patient is to return in 4 weeks for routine OB appointment. Documented by Wilma Betancur LPN on behalf of: Jordan Meade DO documented in this encounter Plan of Treatment DateTypeDepartmentCare Team (Latest Contact Info)Emlkepvdcli42/19/2025 3:30 PM ESTRoutine [facility] [address] [address] Jordan Meade DO [address] [place] [address] documented as of this encounter Procedures Procedure NamePriorityDate/TimeAssociated DiagnosisCommentsPOCT URINALYSIS VOUCSGHOSbcqdtm75/22/2025 3:31 PM EDT 13 weeks gestation of ([facility]) documented in this encounter Results * (ABNORMAL) POCT urinalysis dipstick manually resulted (01/16/2025 3:31 PM EDT) ComponentValueRef RangeTest MethodAnalysis TimePerformed AtPathologist SignatureColor, UAYellowClarity, UAClearGlucose, UANegativeNegative - 2000(110) ++++ mg/dLBilirubin, UANegativeNegative - 4(70) +++ mg/dLKetones, UA NegativeNegative - 160(16) ++++ mg/dLSpec Grav, UA1.0101 - 1.03Blood, UA NegativeNegative - 50 Drake/mcLpH, UA6.55 - 9Protein, UANegativeNegative - 2000(20) ++++ mg/dLUrobilinogen, UA2.00.2 - 12 mg/dLLeukocytes, UATrace Negative - 500+++ Dasia/mcLNitrite, UANegativeNegative - PositiveSpecimen (Source)Anatomical Location / LateralityCollection Method / VolumeCollection TimeReceived EawjHeqfd39/22/2025 3:31 PM EDT Narrative Authorizing ProviderResult TypeResult StatusCorey Deshaun DOPOINT OF CARE TEST ENTER/EDIT ORDERABLESFinal Result documented in this encounter Visit Diagnoses Diagnosis Second trimester ([facility]) state, incidental 13 weeks gestation of ([facility]) POTS (postural orthostatic tachycardia syndrome) Unspecified tachycardia documented in this encounter
--- OUTSIDE RECORDS SUMMARY | 2025-01-16 16:14 | XMS_ITS | CCD ---
Author Organization [facility] CliniSyoh Care Team Providers Care Postdoctoral Research Associate Name Role Phone Nick Leonardo DO Primary Care Provider Chao Cristal Unavailable DESHAUN ., DR QUINN Attending Unavailable [...] DR QUINN Admitting Unavailable DESHAUN ., DR QUNIN Attending Unavailable DESHAUN ., DR QUINN Consulting [...] REQUEST, DR FLORES LISTED Primary Care Unavaila ble ZIEBER, DR AILYN Witt Consulting Unavailable DESHAUN [...] DR TUCKER Primary Care Unavailable ZIEBGOKUL, DR AILYN Witt Consulting Unavailable Rae, Nick Unavailable AILYN MARQUEZ Attending Unavailable AILYN MARQUEZ Referring Unavailable OPAL CRISTINA Primary Care Unavailable OPAL CRISTINA Primary Care Unavailable BRITTNI WILLIAM Attending Unavailable OPAL CRISTINA Primary Care Unavailable AILYN MARQUEZ Attending Unavailable AILYN MARQUEZ Referring Unavailable OPAL CRISTINA Primary Care Unavailable Unavailable Primary Care Provider UnavailOpal Vann MD Primary Care Provider Antonio Emery Attending Unavailable Antonio Emery Attending Unavailable JORDAN MEADE Attending Unavailable JORDAN MEADE Referring Unavailable REANNA BOWMAN Attending Unavailable Joaquim Cespedes DO Attending Provider Joaquim Cespedes Attending Unavailable Joaquim Cespedes Admitting Unavailable Medications Current Medications MedicationDrug Class(es)DatesSig (Normalized)Sig (Original)ibuprofen 800 mg oral tablet (6 sources)Nonsteroidal Anti-inflammatory DrugStart: 01-39-7190rhrd 1 tablet by mouth onceStart: 11-15-2023 End: 29-93-6354lxal 1 tablet by mouth every eight hoursibuprofen 800 MG tablet Take 800 mg by mouth every 8 (eight) hours 11/15/2023 12/20/2023 Discontinued (Other)24 hr metoprolol succinate 25 mg extended release oral tablet (18 sources)beta-Adrenergic BlockerStart: 94-23-8156kble 1 tablet by mouth once dailyStart: 51-26-8162udjl 25 mg by mouth once dailyMetoprolol Succinate Active 25 MG PO Daily January 11, 2024 12:00amStart: 68-79-9619sfau 1 tablet by mouth once dailymetoprolol succinate (TOPROL XL) 25 MG extended release tablet Indications: POTS (postural orthostatic tachycardia syndrome) Take 1 tablet by mouth daily 90 tablet 3 03/08/2023 Activetake 1 tablet by mouth every twenty- four hours in the morningmetoprolol succinate XL (Toprol-XL) 25 MG 24 hr tablet Take 25 mg by mouth in the morning. Activetake 1 tablet by mouth every twenty- four hoursMetoprolol Succinate ER 25 MG 1 tablet Orally Once a day Active Metoprolol Succinate Activeondansetron 4 mg disintegrating oral tablet (3 sources)Serotonin-3 Receptor AntagonistStart: 12-06-2024 End: 55-02-0570kshy 1 tablet by mouth every six hours as needed for nausea and vomiting and nausea and nauseaondansetron ODT (Zofran-ODT) 4 MG disintegrating tablet Indications: Nausea Take 1 tablet (4 mg) bymouth every 6 (six) hours if needed for nausea or vomiting 30 tablet 2 12/06/2024 01/05/2025 Active Pnv,Calcium 39-Kpbo-Xsnou Acid ( Vitamin Plus Low Iron) 27 mg iron- 1 mg tablet (2 sources)Start: 63-38-3082gvjy 1 tablet by mouth once dailyStart: 01-11-2024 take 1 tablet by mouth once dailyPnv,Calcium 27-Hirs-Xewez Acid ( Vitamin Plus Low Iron) 27 mg iron- 1 mg tablet Active 1 TAB PO Daily January 11, 2024 12:00ampolysaccharide iron complex 391 mg oral capsule (1 source)Start: 02-55-6201ufmu 1 capsule by mouth once dailyPROFE 391.3 (180 Fe) MG CAPS TAKE ONE CAPSULE BY MOUTH DAILY 0 11/17/2021 ActivepredniSONE 20 mg oral tablet (2 sources)Start: 36-11-0886slml 1 tablet by mouth twice dailypredniSONE 20 MG 1 tablet Orally bid w/ food for 5 days July, ActivePrenatal (3 sources) ActivePrenatal Vit-Fe Fumarate-FA ( Vitamins) 28-0.8 MG tablet (8 sources)Start: 11-17-2023 End: 89-73-9060tivm 1 tablet by mouth once dailyPrenatal Vit-Fe Fumarate-FA ( Vitamins) 28-0.8 MG tablet Indications: Mother currently breast- feeding Take 1 tablet by mouth Daily 30 tablet 11 11/17/2023 11/16/2024 Active Start: 11-16-2023 End: 00-01-7086bgod 1 tablet by mouth once dailyPrenatal Vit-Fe Fumarate-FA ( Vitamins) 28-0.8 MG tablet Indications: S/P section Take 1 tablet by mouth Daily 30 tablet 11 11/16/2023 11/15/2024 ActivePrenatal Vit-Fe Fumarate-FA (PREPLUS) 27-1 MG TABS (2 sources)Start: 83-89-0270jazj 1 tablet by mouth once dailyPrenatal Vit-Fe Fumarate-FA (PREPLUS) 27-1 MG TABS TAKE ONE TABLET BY MOUTH ONCE DAILY FOR 30 DAYS 0 02/10/2021 Active Completed/Discontinued Medications MedicationDrug Class(es)DatesSig (Normalized)Sig (Original)acetaminophen 325 mg / oxyCODONE hydrochloride 5 mg oral tablet (4 sources)Opioid AgonistStart: 11-14-2023 End: 34-91-8386ggca 1 tablet by mouth every four hours as needed for pain oxyCODONE-acetaminophen (Percocet) 5-325 MG tablet Take 1 tablet by mouth every 4 (four) hours if needed for moderate pain 11/14/2023 12/20/2023 Discontinued (Other)cephalexin 500 mg oral capsule (3 sources)Cephalosporin AntibacterialStart: 10-31-2023 End: 90-55-4225hdxr 1 capsule by mouth three times dailycephalexin (Keflex) 500 MG capsule TAKE ONE CAPSULE BY MOUTH THREE TIMES A DAY FOR 7 DAYS 10/31/2023 11/16/2023 Discontinueddrospirenone 4 mg oral tablet (9 sources)ProgestinStart: 04-03-2024 End: 22-13-3429nobk 1 tablet by mouth once dailyDrospirenone (Slynd) 4 MG tablet Indications: Abnormal uterine bleeding (AUB) Take 4 mg by mouth Daily 28 tablet 11 07/11/2024 12/20/2024 Discontinued (Therapy completed)ferrous sulfate 325 mg oral tablet (4 sources)Start: 01-11-2024 End: 98-52-6090btxf 1 tablet by mouth once dailyFerrous Sulfate (Ferosul) 325 mg (65 mg iron) tablet Discontinued 325 MG PO Daily January 11, 2024 12:00am January 11, 2024 10:51amStart: 11-14-2023 End: 36-71-5212rivf 1 tablet by mouth once dailyFeroSul 325 (65 Fe) MG tablet Take 1 tablet by mouth Daily 11/14/2023 12/20/2023 Discontinued (Other)iopamidol (ISOVUE-370) 76 % injection 75 mL (1 source)Start: 09-20-2023 End: 64-91-2882exorgbarr (ISOVUE-370) 76 % injection 75 mLnorethindrone 0.35 mg oral tablet (7 sources)Start: 12-20-2023 End: 15-48-0889eycp 1 tablet by mouth once dailyNorethindrone (Contraceptive) (Jencycla) 0.35 mg tablet Discontinued 0.35 MG PO Daily December 12:00am January 11, 2024 10:51amomeprazole 20 mg delayed release oral capsule (5 sources)Proton Pump Inhibitor End: 70-06-4521qtqb 1 capsule by mouth once dailyomeprazole (PriLOSEC) [address] capsule Take 1 capsule by mouth Daily 11/16/2023 DiscontinuedPrenatal 27-1 MG tablet (2 sources)Start: 12-15-2023 End: 93-93-4859solg 1 tablet by mouth once dailyPrenatal 27-1 MG tablet Take 1 tablet by mouth Daily 12/15/2023 12/20/2023 Discontinued (Other) Zwzztgeo-Sdf-Xw-FA (, w/Iron & FA,) 27-0.8 MG tablet (5 sources) End: 31-58-5921hhtt 1 tablet by mouth once dailyPrenatal Zccejfce-Oec-Wn-FA (, w/Iron & FA,) 27-0.8 MG tablet Take 1 each by mouth 1 (one) time each day at the same time 12/20/2023 Discontinued (Other)take 1 tablet by mouth once dailyPrenatal Ajkijsbh-Ump-Gr-FA (, w/Iron & FA,) 27-0.8 MG tablet Take 1 each by mouth 1 (one) time each day at the same time Active Problems Active Problems Problem ClassificationProblemDateDocumented DateEpisodic/ChronicAnxiety disorders (6 sources)Generalized anxiety disorder; Translations: [Generalized anxiety disorder]Onset: 958005-80-9768MgpeoliZadzayr dysrhythmias (7 sources)Ventricular premature complex; Translations: [Ventricular premature depolarization]Onset: 580355-16-9971VuzqrrkTfgkytv dysrhythmias (10 sources)Palpitations; Translations: [Palpitations]Onset: 38-55-2441Uxvaxuji Contraceptive and procreative management (2 sources)Contraception status; Translations: [Encounter for initial prescription of contraceptives, unspecified]55-63-9118GamdkhyiHhfrokfy mellitus without complication (6 sources)Other abnormal glucose; Translations: [Abnormal glucose level]Onset: 09-39-9753KdwhiarwAxitv and electrolyte disorders (2 sources)Hypokalemia; Translations: [Hypo-osmolality and hyponatremia]Onset: 73-30-6045CnlumnbaSajyhbyygv during ; abruptio placenta; placenta previa (7 sources)Low lying placenta NOS or without hemorrhage, unspecified trimester; Translations: [Low lying placenta NOS or without hemorrhage, second trimester] Onset: 00-78-1429RqcfpyhkCexppskurysbl and screening for infectious disease (7 sources)Contact with and (suspected) exposure to other viral communicable diseases; Translations: [Encounter for screening for human papillomavirus (HPV)] Onset: 14-45-1001OuqgncyjXtngjebyktsyq (1 source)Localized enlarged lymph nodesEpisodicMenstrual disorders (2 sources)Amenorrhea; Translations: [Amenorrhea, unspecified]28-33-5182Bcpkabn Nausea and vomiting (4 sources)Nausea; Translations: [Nausea]81-21-3653LxfvntbrQautn circulatory disease (1 source)Postural orthostatic tachycardia syndrome ; Translations: [Postural orthostatic tachycardia syndrome (POTS)]Onset: 96-74-9311DiprzpnoFcjwb complications of (2 sources)Anemia of ; Translations: [Anemia complicating , unspecified trimester]24-46-0019OzscscpWrhok female genital disorders (2 sources)Abnormal uterine bleeding; Translations: [Abnormal uterine and vaginal bleeding, unspecified]70-04-4827OelmellUcdke infections; including parasitic (1 source)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; Translations: [Post-COVID syndrome]Onset: 353169-83-4394PpvafbbKjdyn infections; including parasitic (1 source)Post-viral disorder; Translations: [Post-COVID syndrome]Onset: 636083-88-4976JmjbunaNrauw and delivery including normal (16 sources)Encounter for routine follow-up; Translations: [Single live ]Onset: 81-61-1173TzqzorrdUkxdx skin disorders (1 source)Sebaceous cystEpisodicOther upper respiratory infections (5 sources)Acute pharyngitis, unspecified; Translations: [Acute upper respiratory infection, unspecified]EpisodicResidual codes; unclassified (1 source)Personal history of other specified conditions; Translations: [Personal history of other specified conditions]Onset: 45-01-7687Jqqkrrok Residual codes; unclassified (1 source)Gestation period, 9 weeks; Translations: [9 weeks gestation of ]23-48-9327ByajmlzwFjex and subcutaneous tissue infections (2 sources)Abscess of skin and/or subcutaneous tissue; Translations: [Cutaneous abscess, unspecified]61-74-3008CkvfawyqYdolami and strains (1 source)Strain of muscle, fascia and tendon at neck level, initial encounter EpisodicUnclassified (1 source)CONTACT W/AND (SUSP) EXPOS COVID-19; Translations: [CONTACT W/AND (SUSP) EXPOS COVID-19]Onset: 09-03-2021 Past or Other Problems Problem ClassificationProblemDateDocumented DateEpisodic/ChronicConditions associated with dizziness or vertigo (4 sources)Lightheadedness; Translations: [Dizziness and giddiness]Onset: 49-40-3126RfovjckrTjokzyvgflq chest pain (3 sources)Chest pain, unspecified; Translations: [Chest pain]Onset: 07-12-2016 78-33-7386HcutvmbhCH-related trauma to perineum and vulva (1 source)Fourth degree perineal laceration during delivery; Translations: [FOURTH DEG PERINEAL LAC DUR DELIV]Onset: 27-41-3211CburgiozUqezx complications of (4 sources)Maternal care for excessive growth, third trimester, not applicable or unspecified; Translations: [MAT CARE EXCSS FTL GRTH 3RD TRI UNS] Onset: 15-94-4603KiflfaeyYcyjs complications of (1 source)Other specified related conditions, second trimester; Translations: [OTH SPEC PREG RELATED COND 2ND TRI]Onset: 14-28-1198KhxwkoitJzvum female genital disorders (1 source)Other specified noninflammatory disorders of vagina; Translations: [OTH SPEC NONINFLAMMATORY D/O VAGINA]Onset: 50-44-5032HcehxobkPxxao lower respiratory disease (2 sources)Dyspnea; Translations: [Shortness of breath]Onset: 51-28-7312Onndempl Other lower respiratory disease (2 sources)Shortness of breath; Translations: [SHORTNESS OF BREATH]Onset: 42-57-3881SpkkvozmDnqao lower respiratory disease (1 source)Other forms of dyspnea; Translations: [OTHER FORMS OF DYSPNEA]Onset: 90-38-8486DeckqbytNwtxo screening for suspected conditions (not mental disorders or infectious disease) (16 sources)Encounter for screening for Streptococcus B; Translations: [Encounter for screening for diabetes mellitus]Onset: 12-66-2600FehpudflPjgmhxwy codes; unclassified (1 source)38 weeks gestation of ; Translations: [38 WEEKS GESTATION OF ]Onset: 95-54-2414XpggayjdXgfpzvdn codes; unclassified (1 source)37 weeks gestation of ; Translations: [37 WEEKS GESTATION OF ]Onset: 97-43-7029AyvaoocmMlzmcejt codes; unclassified (1 source)32 weeks gestation of ; Translations: [32 WEEKS GESTATION OF ]Onset: 62-44-1000OqkdsgymMnpjeqin codes; unclassified (1 source)20 weeks gestation of ; Translations: [20 WEEKS GESTATION OF ]Onset: 75-94-1385AwlxhdkxIugojold codes; unclassified (1 source)17 weeks gestation of ; Translations: [17 WEEKS GESTATION OF ]Onset: 24-02-5180RiifrawxLbbuuwd (2 sources)Syncope and collapse; Translations: [Syncope and collapse]Onset: 660832-62-3881Vqjsykrp Results Test NameValueInterpretationReference RangeFacilityUrine Cultureon 12-31-2024 Bacteria identified Cx Nom (U)50,000 colonies/ml mixed bacterial skin contaminants 2 Days PERFORMED BY: [place] [address] PATHOLOGIST SKID MACHINE OPERATOR RIKKI DAS M.D.NormalBaptist Health Bethesda Hospital West Physician GroupComment on above: Performed By: #### CUU #### [place] [address] USAHCG ( test) Ql (U)on 18-39-4072Yajfrtldadmdxl and review of laboratory resultsAbnormalNOMS HealthcarePreg Test, UrPositiveNegative NOMS HealthcareNOMS HealthcareUS OB TRANSVAGINALon 93-59-2393YX OB TRANSVAGINAL FINDINGS: A single intrauterine gestational [...] 28, 2025. TRANSCRIBED BY: ELECTRONICALLY SIGNED BY: Katy Dupree AvailableComment on above:Order Comment: US OB VIABILITY PLEASE PERFORM TRANSVAGINAL ULTRASOUND IF INDICATED Patient's last menstrual period was 10/17/2024.US Pelvis transvaginalon 23-81-6490Talakjjf consistent with a live intrauterine gestation, current sonographic age of 8 weeks and 4 days resulting in an estimated date of delivery of July 28, 2025. TRANSCRIBED BY: ELECTRONICALLY SIGNED BY: Kalpesh Louis MDIMAGINGFINDINGS: A single intrauterine gestational sac is present. [...] mass present. Cervical length is 5.0 cm. IMAGINGSpKalpesh zamorano MD - 12/20/2024 FINDINGS: A single intrauterine [...] BY: ELECTRONICALLY SIGNED BY: Kalpesh Louis MD [facility] HealthcareRadiology Study observation (narrative)NOMS HealthcareUS Pelvis transvaginalOrdered By: Kalpesh Louis on 52-10-9769LCWA Healthcare Work Phone: Urinalysis macro (dipstick) panel (U)on 12-20-2024 Bilirubin, UANegativeNegative - 4(70) +++ mg/dLNOMS HealthcareBlood, UANegative Negative - 50 Drake/mcLNOMS HealthcareClarity, UAClearNOMS HealthcareColor, UA YellowNOMS HealthcareGlucose, UANegativeNegative - 2000(110) ++++ mg/dLNOMS HealthcareInterpretation and review of laboratory resultsAbnormalNOMS Healthcare Ketones, UANegativeNegative - 160(16) ++++ mg/dLNOMS HealthcareLeukocytes, UA2+ Negative - 500+++ Dasia/mcLNOMS HealthcareNitrite, UANegativeNegative - Positive NOMS HealthcarepH, UA65 - 9NOMS HealthcareProtein, UANegativeNegative - 1999(20) ++++ mg/dLNODC HealthcareSpec Grav, UA1.0251 - 1.03NODC HealthcareUrobilinogen, UA1.00.2 - 12 mg/dLNOHarry S. [facility] HealthcareED Note-Physicianon 12-13-2024 ED Note-PhysicianED Note-Physician Basic Information Time Seen: Keny Munson PA-C 11/28/2024 21:32 Chief Complaint Pt. is 8 [...] Reports not on any medications. Has never hadanything like this before with her pregnancies. Denies any nausea or vomiting. No urinary symptoms.No back pain. Has never had a RhoGAM shot. Review of Systems No other aggravating or relieving factors no other associated symptoms no other prior treatments orcomplaints. Family: Reviewed and noncontributory Social: lives at [...] 2 hours ago./Cramping associated with this, but hasdecreased. Exam here is relatively benign. No acute findings. Due to concerns though, we did do labwork as well as ultrasound. Lab work reviewed noted. Her beta quantitative level is 5866. Urinalysis is concerning for mild UTI. Will treat with Keflex. We did do an ultrasound that did show yolk sacintact. The cervix is closed. There was a heterogeneous area per diesel truck technician, but no obvious at this time. I discussed these findings with the patient. I discussed that she needs to talyor nue to trend her beta quantitative levels. Discussed return precautions. Discussed follow-up with BEHAVIORAL GENETICIST. She was understanding and grateful. Follow-up with your primary care provider in 3 to 5 days.If symptoms worsen, do not improve, or new [...] q12hr, # 20 cap(s), Refills(s) 0, Pharmacy: [facility], 170, cm, 11/28/24 21:20:00 EDT, Height/Length [...] Jordan MEADE In 3 days 12/01/2024 EDT [place] [address] [place] [address] Business (1) Additional Instructions: Call for diagnosis based follow up. Try to get a repeat Beta hCG quantitative level drawn in 2 days. Patient Education Vaginal Bleeding During , First Trimester Attestation Patient seen and evaluated by the physician treasury assistant. Attending physician was present in the emergency department and supervised care. This visit was performed by both the physician and an APC. I performed all aspects of the MDM as documented. This report was transcribed using voice recognition software. Every effort was made to ensure accuracy, however, inadvertently computerized building mechanic mistakes may be present. Appropriate healthcare PPE was used in evaluating this patient. The patient was placed in a mask. The healthcare provider was wearing mask, gloves, and utilizing proper hand hygiene. All equipment was properly cleansed. I performed a substantive part of the MDM during the patient???s E/M visit. I personally m (more content not included)...[facility] Comment on above:Result Comment: Electronically Signed By: Keny Munson PA-C\.br\Date and Time Signed: 11/28/2522:53 EDT\.br\Electronically Co-Signed By: Rupert HERNANDEZ, Antonio\.br\Date and Time Co-Signed: 12/13/24 07:09 EDTHCG ( test) Ql (U)on 43-50-8799Bljaumnysdbrqg and review of laboratory resultsAbnormal NOMS HealthcarePreg Test, UrPositiveNegativeNOMS Wilson Street HospitalNODC HealthcareUS OB TRANSVAGINALon 89-44-6807SL OB TRANSVAGINALFINDINGS: Two intrauterine gestational sacs, both containing a double decidual reaction which can be normal for this age. Only one (1.7 cm length ) contains a yolk sac and pole crown-rump length 7 mm consistent with a 6 week and 4 day gestational age, cardiac activity identified 118 bpm. The second sacdemonstrates a slight reduction in size (1.5 cm) and demonstrates no pole or gestational sac located close to the closed internal cervical os. Cervical length 4.3 cm IMPRESSION: One intrauterine gestational sac that contains a viable pole, 6 weeks and 3 days resulting inestimate delivery of July 29, 2025. TRANSCRIBED BY: ELECTRONICALLY SIGNED BY: Katy Dupree AvailableComment on above:Order Comment: US OB TRANSVAGINAL No LMP recorded.C Urineon 21-35-1398Retpljut identified Cx Nom (U)Microbiology PROCEDURE: Urine Culture [R1] SOURCE: U CleanCatch BODY SITE: COLLECTED DATE/TIME: 11/28/2024 21:59 EDT RECEIVED DATE/TIME: 11/29/2024 00:21 EDT START DATE/TIME: 11/29/2024 00:21 EDT FREE TEXT SOURCE: Arpit ABREU, Keny Wright. Arpit ABREU, Keny Wright. FINAL REPORTS Final Report [] Verified Date/Time: 12/01/2024 06:42 EDT 600 cfu/ml Mixed skin contaminants Performing Locations R1: This test was performed at: [facility], [address] [place] [address], [id number] , , FlonelCyvriaDayton VA Medical CenterComment on above:Performed By: #### [id number] #### [facility] [address] [place] [id number] 1st Trimesteron [id number] 1st TrimesterExam Date/Time: 11/28/2024 23:49 EDT Reason for Exam: [...] Lyndon Garcia MD Transcribed by: VANESA Technologist: [facility] Medical CenterUS Transvaginalon 58-54-7512CR TransvaginalExam Date/Time: 11/28/2024 23:53 EDT Reason for Exam: Vaginal Bleeding Report PLEASE SEE US 1st Trimester REPORT DATED: 11/28/2024. Ordering Provider: Keny Munson FINAL REPORT Dictated: 11/29/2024 9:44 am Lyndon Garcia MD Signed (Electronic Signature): 11/29/2024 9:44 am Signed by: Lyndon Garcia MD Transcribed by: VANESA Technologist: DeonteajWexner Medical CenterABO/Rhon 67-29-4998GSB/RhPositiveInvalid Interpretation CodeWexner Medical Center Comment on above:Performed By: #### [id number] #### [facility] [address] [place], [place] [address]UFFuf 04-17-9403Ihrlb gap [Moles/Vol]10 mmol/LNormal6-16Wexner Medical CenterComment on above:Performed By: #### [id number] #### [facility] [address], [place] [address]KEN/Creat Ratio20 No QwetwKvspvs67-22JgsjciWexner Medical CenterComment on above:Performed By: #### [id number] #### [facility] [address] [place], [place] [address]Csqbtad [Mass/Vol]8.9 mg/dLNormal8.9-11.1FGreene Memorial HospitalComment on above:Performed By: #### [id number] #### [facility] [address], [place] [address]Wxpakpty [Moles/Vol]106 mmol/DJjgqzx209-518OsbxpeWexner Medical CenterComment on above:Performed By: #### [id number] #### [facility] [address], [place] [address]IH1 [Moles/Vol]24 mmol/RBvqgxm63-85SnlbgnWexner Medical Center Comment on above:Performed By: #### [id number] #### [facility] [address], [place] [address]Fkmlbcefca [Mass/Vol]0.6 mg/dLNormal0.5-1.3FGreene Memorial HospitalComment on above:Performed By: #### [id number] #### [facility] [address], [place] [address]Tdcaacz [Mass/Vol]112 mg/tOPpqvmc16-173MxvzvvWexner Medical CenterComment on above:Performed By: #### [id number] #### [facility] [address], [place] [address]Wzbokpgdj [Moles/Vol]3.2 mmol/LLow3.5-5.3FGreene Memorial HospitalComment on above:Performed By: #### [id number] #### [facility] [address], [place] [address]Hpkpxa [Moles/Vol]137 mmol/YYjbusy159-550JszcwuWexner Medical CenterComment on above:Performed By: #### [id number] #### [facility] [address], [place] [address]Uzxc nitrogen [Mass/Vol]12 mg/dLNormal5-21Wexner Medical CenterComment on above:Performed By: #### [id number] #### [facility] [address], [place] [address]SuKJ Quanton 24-57-5753Tlny hCG Cfs5449 mIU/mLHigh1-3FGreene Memorial HospitalComment on above:Result Comment: 'F NON < 1 - 3' ' 0.2 - 1 WEEK = 5 TO 50' ' 1 - 2 WEEKS = 50 - 500' ' 2 - 3 WEEKS = 100 - 5000' ' 3 - 4 WEEKS = 500 - 12817' ' 4 - 5 WEEKS = 1000 - 42561' ' 5 - 6 WEEKS = 01971 - 071293' ' 6 - 8 WEEKS = 46934 - 333676' ' 8 - 12 WEEKS = 31570 - 072578'Performed By: #### [id number] #### [facility] [address], [place] [address]KMQ w/ Auto Diffon 66-24-2897Wnxxuhkn Absolute0.0 E9/LNormal 0.0-0.2FGreene Memorial HospitalComment on above:Performed By: #### [id number] #### [facility] [address], [place] [address]Qobpskbuj/100 WBC (Bld)0.4 %Normal0.0-2.0Wexner Medical CenterComment on above:Performed By: #### [id number] #### [facility] [address], [place] [address]Gsu Absolute0.2 E9/LNormal0.0-0.5FGreene Memorial Hospital Comment on above:Performed By: #### [id number] #### [facility] [address], [place] [address]Mhjqvmpwiwo/100 WBC (Bld)1.8 %Normal0.0-8.0Wexner Medical CenterComment on above:Performed By: #### [id number] #### [facility] [address], [place] [address]Moqdstaiely distribution width (RBC) [Ratio]13.8 %Normal 10.9-14.2FGreene Memorial HospitalComment on above:Performed By: #### [id number] #### [facility] [address], [place] [address]Ymfasttgud (Bld) [Volume fraction]34.3 %Tldlsd84.0-46.0Wexner Medical CenterComment on above:Performed By: #### [id number] #### [facility] [address], [place] [address]Xxrlvqzpjz (Bld) [Mass/Vol]12.1 g/oQLeslsn59.0-16.0Wexner Medical CenterComment on above:Performed By: #### [id number] #### [facility] [address] [place], [place] [address]Vvplk Absolute2.1 E9/LNormal1.0-4.0[facility] Comment on above:Performed By: #### [id number] #### [facility] [address], [place] [address]Lxtrzuhcamq/100 WBC (Bld)25.3 %Xaswoj38.0-50.0[facility] Medical CenterComment on above:Performed By: #### [id number] #### [facility] [address], [place] [address]FHL (RBC) [Entitic mass]29.9 siJhpieu31.0-34.0[facility] CenterComment on above:Performed By: #### [id number] #### [facility] [address] [place] [address] 70365JYKD (RBC) [Mass/Vol]35.2 g/hPMytzpk01.4-36.0[facility] Medical CenterComment on above:Performed By: #### [id number] #### [facility] [address] [place] [address] 21281KKQ (RBC) [Entitic vol]84.9 ePDnkifj80.0-100.0[facility] Medical CenterComment on above:Performed By: #### [id number] #### [facility] [address] [place] [address] 40850Pfdo Absolute0.8 E9/LNormal0.2-1.0[facility] Comment on above:Performed By: #### [id number] #### [facility] [address] [place] [address] 905[address]Dwjuurphx/100 WBC (Bld)9.0 %Normal4.0-14.0[facility] CenterComment on above:Performed By: #### [id number] #### [facility] [address] [place] [address] 75697Vnvlsj Absolute5.3 E9/LNormal2.0-7.5FGreene Memorial Hospital Comment on above:Performed By: #### [id number] #### [facility] [address] [place] [address] 14111Tzhurl Auto63.5 %Ykfcdv05.0-75.0[facility] Comment on above:Performed By: #### [id number] #### [facility] [address] [place] [address] 28510Ddoeqjmo838.0 E9/KDveaeg235.0-500.0[facility] Comment on above:Performed By: #### [id number] #### [facility] [address] [place] [address] 17935Sgsimlno mean volume (Bld) [Entitic vol]8.1 fLNormal6.4-10.8 [facility] Medical CenterComment on above:Performed By: #### [id number] #### [facility] [address] [place] [address] 41806WEB6.0 E12/LLow4.3-5.9[facility] Medical CenterComment on above:Performed By: #### [id number] #### [facility] [address] [place] [address] 28432FYU4.4 E9/LNormal4.0-11.0[facility] Medical CenterComment on above:Performed By: #### [id number] #### [facility] [address] [place] [address] 87615RB Clinical Summaryon [id number] Clinical SummaryED Clinical Summary [address] [address] ED Clinical Summary Person Information Name: ROSSY GUTIERREZ [facility] Age: 34 Years : 1990 Sex: Female Language: Belarusian PCP: NONE, XXXX Marital Status: Phone: [phone] Visit Id: Visit Reason: Abdominal pain - [...] 11/28/2024 23:57:01 11/28/2024 23:57:01 11/28/2024 23:57:01 ADDRESS: [address] [place] [phone] PHYS DOC NOTES: MEDICAL INFORMATION: Prescriptions Given: [facility], [address] [place], [place] [id number], [phone] cephalexin (Keflex 500 mg Cap) 1 Capsules By Mouth every 12 hours. Refills: 0. PATIENT EDUCATION INFORMATION: Instructions: Vaginal Bleeding During , First Trimester Follow up: With: Address: When: [facility] DESHAUN [facility], [address] [place] [address] , [place] [address] Business (1) In 3 days 12/01/2024 Comments: Call Dr for diagnosis based follow up. Try to get a repeat Beta hCG quantitative level drawn in 2 days. DIAGNOSIS: First trimester bleeding; UTI (urinary tract infection)[facility] Patient Summaryon [id number] Patient SummaryED Patient Summary [address] [address] Patient Discharge Instructions Person Information Name: ROSSY GUTIERREZ Age: 34 Years Arrival Date: 11/28/2024 21:10:18 Discharge Diagnosis: First trimester bleeding; UTI (urinary tract infection) Primary Care Physician: NONE, XXXX Provider Information Primary Provider: [facility] Psychiatrist:Keny Munson PA-C The exam and treatment you received in the Emergency Department were for an urgent problem and are not intended as complete care. It is important that you follow up with a doctor, nurse practitioner,or physician???s treasury assistant for ongoing care. If your symptoms become worse or you do not improve asexpected and you are unable to reach your usual health care provider, you should return to the Emergency Department. We are available 24 hours a day. ROSSY GUTIERREZ has been given the following list of patient education materials, prescriptionsand follow-up instructions: Follow-up Instructions: With: Address: When: [facility] DESHAUN [facility], [address] [place] [address] [place] [address] Retroficiency (1) In 3 days 12/01/2024 Comments: Call [...] opioids can be used to help relieve elkflfeg-vb-ryofeu pain and are often prescribed following a [...] for the same pain relief ??? Physical dependence???meaning you have symptoms of withdrawal when a [...] guidance from the Food and Drug Administration (www.fda.gov/Drugs/ResourcesForYou). (more content not included)...NormalWexner Medical CenterUA with Cult Rflxon 83-68-0059Ooyrb (U)ColorlessAbnormal YellowWexner Medical CenterComment on above:Result Comment: Microscopic readings are only performed on those samples that meet specific criteria set forth by [facility].Performed By: #### [id number] #### [facility] [address], [place] [address]Yhdazbq (U) [Mass/Vol]NegativeNormalNegativeWexner Medical CenterComment on above:Performed By: #### [id number] #### [facility] [address], [place] [address]Mghcfjw Ql (U)NegativeNormalNegativeWexner Medical Center Comment on above:Performed By: #### [id number] #### [facility] [address], [place] [address]ZK Blood3+ mg/dLAbnormalNegMercy Health St. Vincent Medical Center Comment on above:Performed By: #### [id number] #### [facility] [address], [place] [address]SY Bacteria1+ /HPFAbnormalSt. Francis HospitalceW[facility]ner Medical Center Comment on above:Performed By: #### [id number] #### [facility] [address], [place] [address]NZ ClarityClearNormalClearWexner Medical CenterComment on above:Performed By: #### [id number] #### [facility] [address], [place] [address]QJ Leuk Est75 Dasia/uLAbnormalNegMercy Health St. Vincent Medical Center Comment on above:Performed By: #### [id number] #### [facility] [address], [place] [address]SL MucousNegativeNormalNegMercy Health St. Vincent Medical Center Comment on above:Performed By: #### [id number] #### [facility] [address], [place] [address]SZ NitriteNegativeNormalNegMercy Health St. Vincent Medical Center Comment on above:Performed By: #### [id number] #### [facility] [address], [place] [address]YL pH6.0Invalid Interpretation Code5.0-9.0[facility] Medical CenterComment on above:Performed By: #### [id number] #### [facility] [address], [place] [address]JE ProteinNegativeNormalNegativeWexner Medical Center Comment on above:Performed By: #### [id number] #### [facility] [address], [place] [address]MM MSR6-59Lksbiszi1-6HjyxcaGreene Memorial HospitalComment on above:Performed By: #### [id number] #### [facility] [address], [place] [address]XX Spec Grav1.005Invalid Interpretation Code1.005-1.030[facility] Medical CenterComment on above:Performed By: #### [id number] #### [facility] [address], [place] [address]GB Squam Epithelial0-2Invalid Interpretation CodeWexner Medical CenterComment on above:Performed By: #### [id number] #### [facility] [address], [place] [address]GY UrobilinogenNegativeNocone health women's hospitalNegMercy Health St. Vincent Medical CenterComment on above:Performed By: #### [id number] #### [facility] [address] [place] [address] HEC54-44Qauxoduo7-8OfcuvmGreene Memorial HospitalComment on above:Performed By: #### [id number] #### [facility] [address] [place] [address]Jfimiebclmax (U) [Mass/Vol]NegativeNormalNegMercy Health St. Vincent Medical CenterComment on above:Performed By: #### [id number] #### [facility] [address], [place] [address]YC Spec DescClean CatchNormMagruder HospitalComment on above:Performed By: #### [id number] #### [facility] [address], [place] [address]hFSKrv 83-72-6275vISD559 mL/min/1.73 a4Zemykg>=59[facility] Medical CenterComment on above:Performed By: #### [id number] #### [facility] [address] [place] [address]IHL,APTIMA HPV,AGE GDLNon 08-66-4824PVY GDLN ACOG TESTINGNote. NOMS HealthcareComment on above:TESTS RESULT FLAG UNITS REF RANGE LAB Clinician Provided Cytology Information Source.............Cervix;Endocervix No. of containers..01 ThinPrep Vial Age Algo ACOG Tracey... FLAG LEGEND: L-Low Normal,H-High Normal,LL-Alert Low,HH-Alert High <-Panic Low,>-Panic High,A-Abnormal,AA-Critical Abnormal Performed at: 01 =[address] [place] [address] Christa Chavez MD, HPV APTIMANegativeNegativeNOMS HealthcareComment on above:This nucleic acid amplification test detects fourteen high- risk HPV types (16,18,31,33,35,39,45,51,52,56,58,59,66,68) without differentiation. Performed at: =[address], [place] [id number] Mine Promotor: Christa Chavez MD, Phone: [phone] Performed at: [facility] [address] [place] [address] [place] [id number] Mine Promotor: Duncan Ashraf MD, Phone: [phone] IGP, APTIMA HPV, RFX 16/18,45Note.NOMS HealthcareComment on above:TESTS RESULT FLAG UNITS REF RANGE LAB DIAGNOSIS: 02 NEGATIVE FOR INTRAEPITHELIAL LESION OR MALIGNANCY. Specimen adequacy: 02 Satisfactory for evaluation. Endocervical and/or squamous metaplastic cells (endocervical component) are present. Performed by: 02 Jessi Scott, Software Validation Engineer ([facility]) . 02 Note: Note 03 The [...] <-Panic Low,>-Panic High,A-Abnormal,AA-Critical Abnormal Performed at: 02 KWCYT [facility] [facility] [address] [place] [address] Duncan Ashraf MD, 03 WB [facility] [address] [address] Christa Chavez MD, BRUSH-SPATULA CERVIX ENDOCERVIX CLINISYNCNODC HealthcareHCG ( test) Ql (U)on 93-90-3874Khwxixrqqojygp and review of laboratory resultsNormalNODC HealthcarePreg Test, UrNegative NegativeNOMS HealthcareNOMS HealthcareUrinalysis macro (dipstick) panel (U)on 61-87-9578Gxdddqyas, UANegativeNegative - 4(70) +++ mg/dLNOMS HealthcareBlood, UANegativeNegative - 50 Drake/mcLNOMS HealthcareClarity, UAClearNOMS Healthcare Color, UAYellowNOMS HealthcareGlucose, UANegativeNegative - 2000(110) ++++ mg/dL NOMS HealthcareInterpretation and review of laboratory resultsNormalNODC HealthcareKetones, UANegativeNegative - 160(16) ++++ mg/dLNOMS Healthcare Leukocytes, UAPositiveNegative - 500+++ Dasia/mcLNOMS HealthcareComment on above: smallNitrite, UANegativeNegative - PositiveNOMS HealthcarepH, UA65 - 9NOMS HealthcareProtein, UANegativeNegative - 2000(20) ++++ mg/dLNOMS HealthcareSpec Grav, UA1.0251 - 1.03NOMS HealthcareUrobilinogen, UA0.20.2 - 12 mg/dLNOMS HealthcareNOMS HealthcareURINE CULTUREon 47-38-9226Bqydbkpa identified Cx Nom (U)FINALNormal(. - .)[facility]erson ClinicComment on above:Order Comment: [facility]: DR CRISTINA - OFFICE [id number] Comment: CLEAN CATCH MID-STREAM URINE > 10,000 BUT < 100,000 CFU/ML RESEMBLES A CONTAMINATED URINE COLLECTIONPerformed By: #### C-UR #### [facility] [address] [facility], [address] [place] CHEST PULMONARY EMBOLISM W CONTRASTon [id number] CHEST PULMONARY EMBOLISM W CONTRASTEXAMINATION: CTA OF THE CHEST 09/20/2023 9:46 pm [...] Signed by: Cayla Thornton MD 09/21/23 Final resultNormalPremier Health Upper [facility] with Auto Differentialon 09-20-2023 Basophils (Bld) [#/Vol]0.05 10*3/uLBON SECOURS MERCY HEALTHBasophils/100 WBC (Bld)0 %0 - 2 %[facility] HEALTHEosinophils (Bld) [#/Vol]0.15 10*3/uLBON SECOURS MERCY HEALTHEosinophils/100 WBC (Bld)1 %1 - 4 %[facility] Erythrocyte distribution width (RBC) [Ratio]12.8 %11.8 - 14.4 %[facility] HEALTHHematocrit (Bld) [Volume fraction]32.7 %Low36.3 - 47.1 %[facility] HEALTHHemoglobin (Bld) [Mass/Vol]11.3 g/dLLow11.9 - 15.1 g/dLBON SECOURS MERCY HEALTHImmature granulocytes (Bld) [#/Vol]0.20 10*3/uLBON SECOURS MERCY HEALTH Immature granulocytes/100 WBC (Bld)2 %Bzef6GEESMYTH COUNTY COMMUNITY HOSPITAL Interpretation and review of laboratory resultsAbnormalSMYTH COUNTY COMMUNITY HOSPITAL Lymphocytes/100 WBC (Bld)17 %Low24 - 43 %[facility] COMMUNITY HOSPITALLymphocytes/100 WBC (Bld)2.23 %[facility]HENANDO[facility] MEMORIAL HOSPITALH (RBC) [Entitic mass]29.7 pg25.2 - 33.5 pgBON DELAWARE COUNTY HOSPITALHC (RBC) [Mass/Vol]34.6 g/dL28.4 - 34.8 g/dLBON DELAWARE COUNTY HOSPITALV (RBC) [Entitic vol]85.8 fL82.6 - 102.9 fLSMYTH COUNTY COMMUNITY HOSPITALMonocytes/100 WBC (Bld)5 %3 - 12 %[facility] Monocytes/100 WBC (Bld)0.72 %[facility] COMMUNITY HOSPITALNeutrophils/100 WBC (Bld)75 %High36 - 65 %[facility] COMMUNITY HOSPITALNucleated RBC/100 WBC (Bld) [Ratio]0.0 % 0.0 per 100 WBCSMYTH COUNTY COMMUNITY HOSPITALPlatelet mean volume (Bld) [Entitic vol] 10.2 fL8.1 - 13.5 fLSMYTH COUNTY COMMUNITY HOSPITALPlatelets (Bld) [#/Vol]293 10*3/uL SM[facility] COUNTY COMMUNITY HOSPITALRBC (Bld) [#/Vol]3.81 10*6/uLLow3.95 - 5.11 m/uLSMYTH COUNTY COMMUNITY HOSPITALSegmented neutrophils/100 WBC (Bld)9.90 %HighSMYTH COUNTY COMMUNITY HOSPITALWBC other (Bld) [#/Vol]13.3HighBON SECOURS HEALTH SYSTEMCBC with Diffon 51-18-7799Tdd. Basophil0.05 k/uLNormal0.00-0.20[facility] County Health CenterComment on above:Performed By: #### CDP, PT, MG #### [facility] [address] [place] [address] Mine Promotor: Michaela Stuart.Imm.Granulocyte0.20 k/uLNormal0.00-0.30[facility] HospitalComment on above:Performed By: #### CDP, PT, MG #### [address] [place] [address] Mine Promotor: Michaela Stuart.Neutrophil (Seg)9.90 k/uLHigh1.50-8.10[facility] HospitalComment on above:Performed By: #### CDP, PT, MG #### [address] [place] [address] Mine Promotor: Rosario Linares MDBasophils/100 WBC (Bld)0 %Normal0-2MSelect Medical Specialty Hospital - Boardman, Inc HospitalComment on above:Performed By: #### CDP, PT, MG #### [address] [place] [address] Mine Promotor: Rosario Linares MDEosinophils (Bld) [#/Vol]0.15 10*3/uLNormal 0.00-0.44[facility] HospitalComment on above:Performed By: #### ALESIA, PT, MG #### [address] [place] [address] Mine Promotor: Rosario Linares MDEosinophils/100 WBC (Bld)1 %Normal1-4MerVeterans Administration Medical CenterComment on above:Performed By: #### CDP, PT, MG #### [address] [place] [address] Mine Promotor: Rosario Linares MDErythrocyte distribution width (RBC) [Ratio]12.8 % Nlbdwx31.8-14.4[facility] HospitalComment on above:Performed By: #### CDP, PT, MG #### [address] [place] [address] Mine Promotor: Rosario Linares MDHematocrit (Bld) [Volume fraction]32.7 %Low 36.3-47.1Mercy Mina HospitalComment on above:Performed By: #### CDP, PT, MG #### [address] [place], [place] [address] Mine Promotor: Rosario Linares MDHemoglobin (Bld) [Mass/Vol]11.3 g/dLLow11.9-15.1 [facility] HospitalComment on above:Performed By: #### CDP, PT, MG #### [address] [place], [place] [id number] Mine Promotor: Donis Stuartmature granulocytes/100 WBC (Bld)2 %Hrvm2OvldkFulton County Health CenterComment on above:Performed By: #### CDP, PT, MG #### [address] [place] [address] Mine Promotor: Rosario Linares MDLymphocytes (Bld) [#/Vol]2.23 10*3/uLNormal 1.10-3.70[facility] HospitalComment on above:Performed By: #### ALESIA, PT, MG #### [address] [place], [place] [address] Mine Promotor: Theodore Stuartmphocytes/100 WBC (Bld)17 %Tmt94-47UtazmFulton County Health CenterComment on above:Performed By: #### CDP, PT, MG #### [address] [place], [place] [address] Mine Promotor: BALDOMERO StuartCH (RBC) [Entitic mass]29.7 nnFwdpwp23.2-33.5 [facility] HospitalComment on above:Performed By: #### CDP, PT, MG #### [address] [place], [place] [address] Mine Promotor: BALDOMERO StuartCHC (RBC) [Mass/Vol]34.6 g/rONfliza35.4-34.8[facility] Health CenterComment on above:Performed By: #### CDP, PT, MG #### [address] [place] [address] Mine Promotor: BALDOMERO StuartCV (RBC) [Entitic vol]85.8 dDWmmaal95.6-102.9 [facility] CenterComment on above:Performed By: #### CDP, PT, MG #### [address] [place] [address] Mine Promotor: BALDOMERO Stuartonocytes (Bld) [#/Vol]0.72 10*3/uLNormal0.10-1.20 [facility] CenterComment on above:Performed By: #### ALESIA, PT, MG #### [address] [place], [place] [address] Mine Promotor: BALDOMERO Stuartonocytes/100 WBC (Bld)5 %Normal3-12[facility] Health CenterComment on above:Performed By: #### ALESIA, PT, MG #### [address] [place], [facility]83 Mine Promotor: Rosario Linares MDNeutrophil (Seg)75 %Aljg58-98EorzoFulton County Health Center Comment on above:Performed By: #### ALESIA, PT, MG #### [address] [place], [facility]83 Mine Promotor: Rosario Linares MDNRBC Automated0.0 per 100 WBCNormal0.0[facility] Health CenterComment on above:Performed By: #### CDP, PT, MG #### [address] [place] [address] Mine Promotor: MARIA DEL CARMEN Stuartlatelet mean volume (Bld) [Entitic vol]10.2 fL Normal8.1-13.5[facility] Health CenterComment on above:Performed By: #### CDP, PT, MG #### [facility] [address] [place] [address] Mine Promotor: Alexandre Stuart ([facility]) [#/Vol]293 10*3/bXMokexh063-208 [facility] CenterComment on above:Performed By: #### CDP, PT, MG #### [facility] [address] [place] [address] Mine Promotor: LAURA Stuart ([facility]) [#/Vol]3.81 10*6/uLLow3.95-5.11[facility] Health CenterComment on above:Performed By: #### CDP, PT, MG #### [address] [place], [facility]83 Mine Promotor: RENATA Stuart ([facility]) [#/Vol]13.3 10*3/uLHigh3.5-11.3MMadison HealthComment on above:Performed By: #### CDP, PT, MG #### [address] [place] [address] Mine Promotor: IRENE Stuartnia 69-99-8452Tmpsfjc [Mass/Vol]3.5 g/dL3.5 - 5.2 g/dLBON PROTESTANT DEACONESS HOSPITALAlbumin/Globulin [Mass ratio]1.1 {ratio}1.0 - 2.5BON PROTESTANT DEACONESS HOSPITALALP [Catalytic activity/Vol]103 U/L35 - 104 U/LBON PROTESTANT DEACONESS HOSPITALALT [Catalytic activity/Vol]16 U/L5 - 33 U/LBON PROTESTANT DEACONESS HOSPITALAnion gap [Moles/Vol]10 mmol/L9 - 17 mmol/LBON [facility] AST [Catalytic activity/Vol]16 U/LNINF - 32 U/LBON [facility]OTESTANT DEACONESS HOSPITALBilirubin [Mass/Vol]0.2 mg/dLLow0.3 - 1.2 mg/dLBON PROTESTANT DEACONESS HOSPITALCalcium [Mass/Vol] 8.4 mg/dLLow8.6 - 10.4 mg/dLBON PROTESTANT DEACONESS HOSPITALChloride [Moles/Vol]101 mmol/L98 - 107 mmol/LBON PROTESTANT DEACONESS HOSPITALCO2 [Moles/Vol]22 mmol/L20 - 31 mmol/LBON [facility]OTEST[facility] DEACONESS HOSPITALCreatinine [Mass/Vol]0.4 mg/dLLow0.5 - 0.9 mg/dL B[facility]AC[facility]ESS HOSPITALEst, Glom Filt Rate- PINFBON PROTESTANT DEACONESS HOSPITALComment on above: These results are not intended [...] therapy that affects renal tubular secretion. Glucose [Mass/Vol]89 mg/dL70 - 99 mg/dLBON PROTESTANT DEACONESS HOSPITALInterpretation and review of laboratory resultsAbnormalSMYTH COUNTY COMMUNITY HOSPITALPotassium [Moles/Vol]3.7 mmol/L3.7 - 5.3 mmol/LBON PROTESTANT DEACONESS HOSPITALProtein [Mass/Vol] 6.7 g/dL6.4 - 8.3 g/dLBON PROTESTANT DEACONESS HOSPITALSodium [Moles/Vol]133 mmol/AGfe643 - 144 mmol/LBON PROTESTANT DEACONESS HOSPITALUrea nitrogen [Mass/Vol]7 mg/dL6 - 20 mg/dL SM[facility] COMMUNITY HOSPITALUrea nitrogen/Creatinine [Mass ratio]18 mg/mg9 - 20[facility] Hospitalp Metabolic Profon 09-20-2023 Albumin [Mass/Vol]3.5 g/dLNormal3.5-5.2[facility] HospitalComment on above: Performed By: #### CP #### [facility] [address] [place] [address] Mine Promotor: Rosario Linares, MDAlbumin/Glob Ratio1.6Zhgxjn3.0-2.5[facility] Health CenterComment on above:Performed By: #### CP #### [facility] [address] [place] [address] Mine Promotor: Xochitl Stuart Ipmr034 U/GGxwttd71-801Xqfot [facility]iffin HospitalComment on above:Performed By: #### CP #### [facility] [address] [place] [address] Mine Promotor: Rosario Linares MDALT [Catalytic activity/Vol]16 U/LNormal5-33[facility] Health CenterComment on above:Performed By: #### CP #### [facility] [address] [place] [address] [place] [address] Mine Promotor: Rosario Linares MDAnion gap [Moles/Vol]10 mmol/LNormal9-17[facility] CenterComment on above:Performed By: #### CP #### [facility] [address] [place] [address] [place] [address] Mine Promotor: Rosario Linares MDAST [Catalytic activity/Vol]16 U/LNormal<32[facility] Health CenterComment on above:Performed By: #### CP #### [address] [place] [address] Mine Promotor: Rosario Linares MDBilirubin [Mass/Vol]0.2 mg/dLLow0.3-1.2MMadison HealthComment on above:Performed By: #### CP #### [facility] [address] [place] [address] Mine Promotor: Rosario Linares MDBUN/CRE Mfdee36Anevgo8-14Dsnzp [facility] Comment on above:Performed By: #### CP #### [facility] [address] [place] [address] [place] [address] Mine Promotor: IRENE Stuartalcium [Mass/Vol]8.4 mg/dLLow8.6-10.4[facility] CenterComment on above:Performed By: #### CP #### [address] [place] [address] Mine Promotor: IRENE Stuarthloride [Moles/Vol]101 mmol/OOhlsyz83-327XtojcFulton County Health CenterComment on above:Performed By: #### CP #### [address] [place], [place] [address] Mine Promotor: Rosario Linares MDCO2 [Moles/Vol]22 mmol/IMcfzep77-81MrvieFulton County Health CenterComment on above:Performed By: #### CP #### [address] [place], [place] [address]338383 Mine Promotor: IRENE Stuartreatinine [Mass/Vol]0.4 mg/dLLow0.5-0.9[facility] CenterComment on above:Performed By: #### CP #### [address] [place], [place] [address]83 Mine Promotor: Rosario Linares MDGFR/1.73 sq M.predicted among non-blacks MDRD (S/P/Bld) [Vol rate/Area]mL/min/{1.73_m2}Normal>60[facility] Health CenterComment on above:Result Comment: These results are not intended for [...] or following therapy that affects renal tubular secretion.Performed By: #### CP #### [address] [place] [address] Mine Promotor: Rosario Linares MDGlucose [Mass/Vol]89 mg/jNRwqwqn49-17Lyaqj Mina HospitalComment on above:Performed By: #### CP #### [address] [place], [place] [address] Mine Promotor: MARIA DEL CARMEN Stuartotassium [Moles/Vol]3.7 mmol/LNormal3.7-5.3Mer[facility] Mina HospitalComment on above:Performed By: #### CP #### [address] [place], [facility]83 Mine Promotor: Rosario Linares MDProtein [Mass/Vol]6.7 g/dLNormal6.4-8.3[facility]ina HospitalComment on above:Performed By: #### CP #### [address] [place], [place] [address]483 Mine Promotor: Rosario Linares MDSodium [Moles/Vol]133 mmol/DPbf347-386Iqasp [facility] HospitalComment on above:Performed By: #### CP #### [address] [place], [place] [address]83 Mine Promotor: Rosario Linares MDUrea nitrogen [Mass/Vol]7 mg/dLNormal6-20[facility] HospitalComment on above:Performed By: #### CP #### [address] [place] [address] Mine Promotor: TANK Stuart-Dimer Teston 54-94-0634H-Dimer Test1.32 ug/mL FEUHigh0.00-0.59[facility] HospitalComment on above:Result Comment: When combined with a low clinical [...] be more prevalent in patients with distal DVT.Performed By: #### KARLY #### [facility] [address] [place] [address] Mine Promotor: Karen Stuart, [facility] [id number] D-dimer FEU (PPP) [Mass/Vol]1.32[facility] on above: When combined with a low [...] distal DVT. Interpretation and review of laboratory resultsAbnormSentara RMH Medical Center [id number] [Mass/Vol]1.8 mg/dL1.6 - 2.6 mg/dLBON BEN[facility]URSING HOMEMagnesium [Mass/Vol] 1.8 mg/dLNormal1.6-2.6[facility] on above:Performed By: #### CDP, PT, MG #### [address] [place] [id number] Mine Promotor: Po Stuart [id number] Coag (PPP) [Relative time]1.0 {INR}NormalSMYTH COUNTY COMMUNITY HOSPITALComschoolcraft memorial hospital on above:Result Comment: Therapeutic Range: Moderate Anticoagulant Intensity: INR = 2.0-3.0 High Anticoagulant Intensity: INR = 2.5-3.5Performed By: #### CDP, PT, MG #### [address] [place] [id number] Mine Promotor: Rosario Linares MD Therapeutic Range: Moderate Anticoagulant Intensity: INR = 2.0-3.0 High Anticoagulant Intensity: INR = 2.5-3.5 PT Coag (PPP) [Time]12.8 oYxplmv88.7-14.1[facility] on above:Performed By: #### CDP, PT, MG #### [address] [place] [id number] Mine Promotor: Krista Stuart-INRon 36-10-0116[facility] TSHon 99-09-7284NCV Qn2.11 m[IU]/LBON BENNETT COUNTY [facility]OSPITAL AND NURSING HOMEThyroid Stim. Horm.on 97-55-7027Glpspbp Stim. Horm.2.11 uIU/mLNormal 0.30-5.00[facility] on above:Performed By: #### TSH #### [address] [place] [address] Mine Promotor: Senia Stuartninon 67-46-3230Wdstqpyh I.cardiac High sensitivity method [Mass/Vol]ng/L0 - 14 ng/LBON PROTESTANT DEACONESS HOSPITALComment on above:High Sensitivity Troponin values cannot be compared with other Troponin methodologies.ISIDRO PROTESTANT DEACONESS HOSPITALRoderick, High Sens<1Blpfce5-32SgwglFulton County Health CenterComment on above:Result Comment: High Sensitivity Troponin values cannot be compared with other Troponin methodologies.Performed By: #### TROPI #### [address] [place] [address] Mine Promotor: Letty Stuart Metabolic Profon 14-51-2440Rzpbh gap [Moles/Vol]13 mmol/LNormal9-17Fult[facility] County Health CenterComment on above:Performed By: #### CDP, BMP #### [address] [place] [address] Mine Promotor: Rosario Linares MDBUN/CRE Fhpkw40Wwxdoj2-51Bemll [facility] Comment on above:Performed By: #### CDP, BMP #### [address] [place] [address] Mine Promotor: Rosario Linares MDCalcium [Mass/Vol]8.7 mg/dLNormal8.6-10.4[facility] County Health CenterComment on above:Performed By: #### CDP, BMP #### [address] [place] [address] Mine Promotor: Rosario Linares, MDChloride [Moles/Vol]100 mmol/BQfbzfs85-469LmiksFulton County Health CenterComment on above:Performed By: #### CDP, BMP #### [address] [place], [place] [id number] Mine Promotor: Rosario Linares MDCO2 [Moles/Vol]21 mmol/QGmsqvp08-10RdgorFulton County Health CenterComment on above:Performed By: #### CDP, BMP #### [address] [place], [place] 0297383 Mine Promotor: IRENE Stuartreatinine [Mass/Vol]0.4 mg/dLLow0.5-0.9[facility] County Health CenterComment on above:Performed By: #### CDP, BMP #### [address] [place], [place] [id number] Mine Promotor: Rosario Linares MDGFR/1.73 sq M.predicted among non-blacks MDRD (S/P/Bld) [Vol rate/Area]mL/min/{1.73_m2}Normal>60F[facility] County Health CenterComment on above:Result Comment: These results are not intended for [...] or following therapy that affects renal tubular secretion.Performed By: #### ALSEIA, BMP #### [address] [place], [place] 014[address]83 Mine Promotor: oRsario Linares MDGlucose [Mass/Vol]115 mg/pRRlyv97-56Fgcvv [facility] HospitalComment on above:Performed By: #### CDP, BMP #### [address] [place], [place] 9300383 Mine Promotor: MARIA DEL CARMEN Stuartotassium [Moles/Vol]3.4 mmol/LLow3.7-5.3Mercy Mina HospitalComment on above:Performed By: #### CDP, BMP #### [address] [place] [address] Mine Promotor: Rosario Linares MDSodium [Moles/Vol]134 mmol/PRhh391-404Zwdzc [facility] HospitalComment on above:Performed By: #### CDP, BMP #### [address] [place], [place] [address] Mine Promotor: Rosario Linares MDUrea nitrogen [Mass/Vol]7 mg/dLNormal6-20[facility] HospitalComment on above:Performed By: #### CDP, BMP #### [address] [place], [place] [address] Mine Promotor: IRENE Stuart with Diffon 01-80-5408Rzp. Basophil0.04 k/uL Normal0.00-0.20MerMorrow County Hospital HospitalComment on above:Performed By: #### ALESIA, BMP #### [address] [place], [place] [address] Mine Promotor: Michaela Stuart.Imm.Granulocyte0.07 k/uLNormal0.00-0.30MerMorrow County Hospital HospitalComment on above:Performed By: #### ALESIA, BMP #### [address] [place], [place] [address] Mine Promotor: Micheala Stuart.Neutrophil (Seg)8.51 k/uLHigh1.50-8.10[facility] HospitalComment on above:Performed By: #### ALESIA, BMP #### [address] [place], [place] [address] Mine Promotor: Rosario Linares MDBasophils/100 WBC (Bld)0 %Normal0-2MercBlanchard Valley Health System HospitalComment on above:Performed By: #### ALESIA, BMP #### [address] [place], [facility]83 Mine Promotor: Rosario Linares MDEosinophils (Bld) [#/Vol]0.11 10*3/uLNormal 0.00-0.44[facility] HospitalComment on above:Performed By: #### CDP, BMP #### [address] [place], [place] 1207083 Mine Promotor: Rosario Linares MDEosinophils/100 WBC (Bld)1 %Normal1-4MerMorrow County Hospital HospitalComment on above:Performed By: #### CDP, BMP #### [address] [place], [facility]83 Mine Promotor: Rosario Linares MDErythrocyte distribution width (RBC) [Ratio]13.0 % Klzxxp07.8-14.4MerMorrow County Hospital HospitalComment on above:Performed By: #### CDP, BMP #### [address] [place] [id number] Mine Promotor: Rosario Linares MDHematocrit (Bld) [Volume fraction]36.2 %Low 36.3-47.1Mercy Mina HospitalComment on above:Performed By: #### CDP, BMP #### [address] [place], [place] [address] Mine Promotor: Rosario Linares MDHemoglobin (Bld) [Mass/Vol]12.2 g/dLNormal 11.9-15.1[facility] Mina HospitalComment on above:Performed By: #### CDP, BMP #### [address] [place], [facility]83 Mine Promotor: Rosario Linares MDImmature granulocytes/100 WBC (Bld)1 %Wzbk6Uzbrx [facility] HospitalComment on above:Performed By: #### CDP, BMP #### [address] [place], [facility]83 Mine Promotor: Rosario Linares MDLymphocytes (Bld) [#/Vol]2.63 10*3/uLNormal 1.10-3.70MerMorrow County Hospital HospitalComment on above:Performed By: #### CDP, BMP #### [address] [place], [facility]83 Mine Promotor: Rosario Linares MDLymphocytes/100 WBC (Bld)22 %Imu78-94Ohftm [facility] HospitalComment on above:Performed By: #### CDP, BMP #### [address] [place] [address] Mine Promotor: BALDOMERO StuartCH (RBC) [Entitic mass]29.8 mxExoadi35.2-33.5 [facility] HospitalComment on above:Performed By: #### CDP, BMP #### [address] [place], [facility]83 Mine Promotor: BALDOMERO StuartCHC (RBC) [Mass/Vol]33.7 g/lGSrzdba10.4-34.8[facility] HospitalComment on above:Performed By: #### CDP, BMP #### [address] [place], [facility]83 Mine Promotor: BALDOMERO StuartCV (RBC) [Entitic vol]88.5 uBDuqpfl49.6-102.9 [facility] HospitalComment on above:Performed By: #### CDP, BMP #### [address] [place], [facility]83 Mine Promotor: BALDOMERO Stuartonocytes (Bld) [#/Vol]0.44 10*3/uLNormal0.10-1.20 [facility] CenterComment on above:Performed By: #### CDP, BMP #### [address] [place], [facility]83 Mine Promotor: BALDOMERO Stuartonocytes/100 WBC (Bld)4 %Normal3-12[facility] HospitalComment on above:Performed By: #### CDP, BMP #### [address] [place], [facility]83 Mine Promotor: Kelley Stuart (Seg)72 %Wrhp23-45OurqiFulton County Health Center Comment on above:Performed By: #### ALESIA, BMP #### [address] [place], [place] 2153883 Mine Promotor: CASEY Stuart Automated0.0 per 100 WBCNormal0.0[facility] County Health CenterComment on above:Performed By: #### ALESIA, BMP #### [address] [place], [place] [id number] Mine Promotor: Robert Stuart mean volume (Bld) [Entitic vol]10.3 fL Normal8.1-13.5[facility] County Health CenterComment on above:Performed By: #### ALESIA, BMP #### [address] [place] [address] Mine Promotor: Alexandre Stuart (Bld) [#/Vol]289 10*3/mLNzksph313-321 [facility] HospitalComment on above:Performed By: #### ALESIA, BMP #### [address] [place], [place] 2147983 Mine Promotor: LAURA Stuart (Bld) [#/Vol]4.09 10*6/uLNormal3.95-5.11[facility] Health CenterComment on above:Performed By: #### ALESIA, BMP #### [address] [place] [address] Mine Promotor: RENATA Stuart (Bld) [#/Vol]11.8 10*3/uLHigh3.5-11.3MMadison HealthComment on above:Performed By: #### ALESIA, BMP #### [address] [place], [place] 9256383 Mine Promotor: Los Stuart 42-86-7707Fydddxsk, High Sens6 ng/L Normal0-14[facility] County Health CenterComment on above:Result Comment: High Sensitivity Troponin values cannot be compared with other Troponin methodologies.Performed By: #### TROPI #### [facility] [address] [place], [place] [id number] Mine Promotor: AJITH Stuart w/Reflex Cultureon 94-82-0708Zdjctypsa, SemiQt,UrNegativeNormalNEGFulton County Health CenterComment on above:Performed By: #### CDP, BMP #### [address] [place] [address] Mine Promotor: Addy Stuart, UrineNegMadison Health Comment on above:Performed By: #### CDP, BMP #### [facility] [address] [place] [address] [place] [address] Mine Promotor: IRENE Stuartlarity (ClearNoalCGrand Lake Joint Township District Memorial Hospital Comment on above:Performed By: #### CDP, BMP #### [address] [place], [place] 6990483 Mine Promotor: IRENE Stuartolor ()YellowNoalYLima Memorial Hospital Comment on above:Performed By: #### CDP, BMP #### [facility] [address] [place] [address] Mine Promotor: Rosario Linares MDGlucose Ql (U)NegativeNormalShelby Memorial HospitalComment on above:Performed By: #### CDP, BMP #### [facility] [address] [place] [address] Dr. [place], [place] 1244183 Mine Promotor: Rosario Linares MDKetones Ql (U)NegativeNormalShelby Memorial HospitalComment on above:Performed By: #### CDP, BMP #### [facility] [address] [place] [address] [place] [address] Mine Promotor: Rosario Linares MDLeukocyte esterase Test strip Ql (U)SMALLAbnormal NEGFulton County Health CenterComment on above:Performed By: #### CDP, BMP #### [facility] [address] [place] [address] [place] [address] Mine Promotor: Fareed Stuarttrite,UrNegativeNormalNEGFulton County Health Center Comment on above:Performed By: #### CDP, BMP #### [facility] [address] [place] [address] [place] [address] Mine Promotor: MARIA DEL CARMEN Stuart,Ur8.2Veffwc7.0-9.0[facility] Health CenterComment on above:Performed By: #### CDP, BMP #### [address] [place], [place] [address] Mine Promotor: MARIA DEL CARMEN Stuartrotein Ql (U)NegativeNormalNEGFulton County Health CenterComment on above:Performed By: #### CDP, BMP #### [facility] [address] [place] [address] Dr. [place], [place] [address] Mine Promotor: SAMANTHA Stuartpec. [place],Ur1.218Rrnikn7.010-1.020[facility] Health CenterComment on above:Performed By: #### CDP, BMP #### [facility] [address] [place] [address] [place] [address] Mine Promotor: Rosario Linares MDUrobilinogen,UrNormalNormal0.0-1.0[facility] HospitalComment on above:Performed By: #### CDP, BMP #### [facility] [address] [place] [address] [place] [address] Mine Promotor: Rosario Linares MDUrinalysis,Microon [id number]jg NONETwin City Hospital HospitalComment on above:Performed By: #### CDP, BMP #### [facility] [address] [place], [place] 1489283 Mine Promotor: Rosario Linares MDEpithelial cells LM Ql (Urine sed)5 TO 10Normal 0-25[facility] Health CenterComment on above:Performed By: #### CDP, BMP #### [facility] [address] [place], [place] [address]83 Mine Promotor: Ifeanyi Stuart RBC'sNoneNormal0-2MMadison Health Comment on above:Performed By: #### ALESIA, BMP #### [facility] [address] [place], [place] 3566383 Mine Promotor: Ifeanyi Stuart WBC's2 TO 5Aeegbp3-8RkrhtFulton County Health Center Comment on above:Performed By: #### ALESIA, BMP #### [facility] [address] [place], [place] 428[address]83 Mine Promotor: IRENE StuartOVID/FLU/RSV RT-PCRon [id number]-CoV-2 (COVID-19) RNA DEVIN+probe Ql (Unsp spec)NegativeSkyline Hospital ClaytonStress.com Other COVID/FLU/RSV RT-PCRNegativeHollandale MatchMine Other Quick Strepon 06-04-2022S. pyogenes Org specific cx Ql (Throat)NegativeSkyline Hospital ClaytonStress.com Other Qubjx CeQurSanovia CorporationFriends Hospital ClaytonStress.com Other CBC AUTO DIFFon [id number] #0.1 103/ulNormal 0.0-0.1[facility] HospitalComment on above:Performed By: #### AFPTET #### [facility] [address] [place], [place] [address] Dr. Belkys FajardoBasophils/100 WBC (Bld)0.3 %Normal0.2-2.0The [facility] Comment on above:Performed By: #### AFPTET #### [facility] [address] [place] [address] Dr. Belkys Gimenez #0.1 103/ulNormal0.0-0.7The [facility] Medical CenterComment on above: Performed By: #### AFPTET #### [facility] [address] [place] [address] Dr. Belkys Thomasosinophils/100 WBC (Bld)0.9 %Normal0.9-7.0[facility] Comment on above:Performed By: #### AFPTET #### [facility] [address] [place] [address] Dr. Belkys Campuzanothrocyte distribution width (RBC) [Ratio]14.0 %Wgoiof59.0-15.0 [facility] HospitalComment on above:Performed By: #### AFPTET #### [facility] [address] [place] [address] Dr. Belkys FajardoHematocrit (Bld) [Volume fraction]24.8 %Critically low36.0-48.0 [facility] HospitalComment on above:Performed By: #### AFPTET #### [facility] [address] [place] [address] Dr. Belkys FajardoHemoglobin (Bld) [Mass/Vol]8.2 g/dLCritically low12.0-16.0[facility] HospitalComment on above:Performed By: #### AFPTET #### [facility] [address] [place] [address] Dr. Belkys Ortega #0.23 10e3/ulCritically high0.00-0.03[facility] Comment on above:Performed By: #### AFPTET #### [facility] [address] [place] [address] Dr. Belkys Ortega %1.5 %Critically high0.0-0.5The [facility] CenterComment on above:Performed By: #### AFPTET #### [facility] [address] [place] [address] Dr. Belkys Morales #2.4 103/ulNormal1.2-3.8The [facility] CenterComment on above:Performed By: #### AFPTET #### [facility] [address] [place] [address] Dr. Belkys Chancehocytes/100 WBC (Bld)15.5 %Critically low20.5-60.0The [facility] CenterComment on above:Performed By: #### AFPTET #### [facility] [address] [place] [address] Dr. Belkys Waite DIFF REQNONormalThe [facility] Medical CenterComment on above: Performed By: #### AFPTET #### [facility] [address] [place] [address] Dr. Belkys Guerra (RBC) [Entitic mass]28.5 oaTdapdz15.7-34.0The [facility] CenterComment on above:Performed By: #### AFPTET #### [facility] [address] [place] [address] Dr. Belkys Guerra (RBC) [Mass/Vol]33.1 g/hNRixwew40.9-35.2The [facility] CenterComment on above:Performed By: #### AFPTET #### [facility] [address] [place] [address] Dr. Belkys Guerra (RBC) [Entitic vol]86.1 wCNfgoer92.0-99.0The [facility] CenterComment on above:Performed By: #### AFPTET #### [facility] [address] [place] [address] Dr. Belkys Johnson #0.8 103/ulNormal0.3-0.8The [facility] CenterComment on above:Performed By: #### AFPTET #### [facility] [address] [place] [address] Dr. Belkys Mooreocytes/100 WBC (Bld)5.4 %Normal1.7-12.0The [facility] Comment on above:Performed By: #### AFPTET #### [facility] [address] [place] [address] Dr. Belkys Dwyer #11.6 103/ulCritically high1.4-6.5The [facility] Comment on above:Performed By: #### AFPTET #### [facility] [address] [place] [address] Dr. Belkys Muñizutrophils/100 WBC (Bld)76.4 %Critically high43.0-75.0The [facility] CenterComment on above:Performed By: #### AFPTET #### [facility] [address] [place] [address] Dr. Belkys FajardoPlatelet mean volume (Bld) [Entitic vol]10.2 fLNormal9.5-13.5The [facility] CenterComment on above:Performed By: #### AFPTET #### [facility] [address] [place] [address] Dr. Belkys FajardoPLT235 103/ecJoeaoh353-171Gqg [facility] CenterComment on above: Performed By: #### AFPTET #### [facility] [address] [place] [address] Dr. Belkys FajardoRBC2.88 106/ulCritically low4.20-5.40The [facility] CenterComment on above:Performed By: #### AFPTET #### [facility] [address] [place] [address] Dr. Belkys FajardoWBC15.2 103/ulCritically high4.0-11.0The [facility] CenterComment on above:Performed By: #### AFPTET #### [facility] [address] [place] [address] Dr. Belkys Maddox AUTO DIFFon [id number] #0.1 103/ulNormal0.0-0.1The [facility] CenterComschoolcraft memorial hospital on above:Performed By: #### AFPTET #### [facility] [address] [place] [address] Dr. Belkys FajardoBasophils/100 WBC (Bld)0.4 %Normal0.2-2.0The [facility] Comment on above:Performed By: #### AFPTET #### [facility] [address] [place] [address] Dr. Belkys Gimenez #0.1 103/ulNormal0.0-0.7The [facility] CenterComment on above: Performed By: #### AFPTET #### [facility] [address] [place] [address] Dr. Belkys Thomasosinophils/100 WBC (Bld)0.5 %Critically low0.9-7.0The [facility] CenterComment on above:Performed By: #### AFPTET #### [facility] [address] [place] [address] Dr. Belkys Thomasrythrocyte distribution width (RBC) [Ratio]13.8 %Wwrxym27.0-15.0 [facility] HospitalComment on above:Performed By: #### AFPTET #### [facility] [address] [place] [address] Dr. Belkys FajardoHematocrit (Bld) [Volume fraction]32.5 %Critically low36.0-48.0 The [facility] CenterComment on above:Performed By: #### AFPTET #### [facility] [address] [place] [address] Dr. Belkys FajardoHemoglobin (Bld) [Mass/Vol]11.0 g/dLCritically low12.0-16.0The [facility] CenterComment on above:Performed By: #### AFPTET #### [facility] [address] [place] [address] Dr. Belkys Ortega #0.31 10e3/ulCritically high0.00-0.03The [facility] Comment on above:Performed By: #### AFPTET #### [facility] [address] [place] [address] Dr. Belkys Ortega %1.6 %Critically high0.0-0.5The [facility] CenterComment on above:Performed By: #### AFPTET #### [facility] [address] [place] [address] [address] Belkys Morales #2.0 103/ulNormal1.2-3.8The [facility] CenterComment on above:Performed By: #### AFPTET #### [facility] [address] [place] [address] Dr. Belkys Brennanmphocytes/100 WBC (Bld)10.2 %Critically low20.5-60.0The [facility] CenterComment on above:Performed By: #### AFPTET #### [facility] [address] [place] [address] Dr. Belkys RobertsUAL DIFF REQNONormalThe [facility] CenterComment on above: Performed By: #### AFPTET #### [facility] [address] [place] [address] Dr. Belkys Guerra (RBC) [Entitic mass]28.4 okQbgauo68.7-34.0The [facility] CenterComment on above:Performed By: #### AFPTET #### [facility] [address] [place] [address] Dr. Belkys Guerra (RBC) [Mass/Vol]33.8 g/hTUwthqy30.9-35.2The [facility] CenterComment on above:Performed By: #### AFPTET #### [facility] [address] [place] [address] Dr. Belkys Guerra (RBC) [Entitic vol]83.8 lLTibnll56.0-99.0The [facility] CenterComment on above:Performed By: #### AFPTET #### [facility] [address] [place] [address] Dr. Belkys Johnson #0.9 103/ulCritically high0.3-0.8The [facility] Comment on above:Performed By: #### AFPTET #### [facility] [address] [place] [address] Dr. Belkys Mooreocytes/100 WBC (Bld)4.8 %Normal1.7-12.0The [facility] Comment on above:Performed By: #### AFPTET #### [facility] [address] [place] [address] Dr. Belkys Dwyer #16.0 103/ulCritically high1.4-6.5The [facility] Comment on above:Performed By: #### AFPTET #### [facility] [address] [place] [address] Dr. Belkys Muñizutrophils/100 WBC (Bld)82.5 %Critically high43.0-75.0The [facility] CenterComment on above:Performed By: #### AFPTET #### [facility] [address] [place] [address] Dr. Belkys Joelet mean volume (Bld) [Entitic vol]10.1 fLNormal9.5-13.5The [facility] CenterComment on above:Performed By: #### AFPTET #### [facility] [address] [place] [address] Dr. Belkys FajardoPLT301 103/yhVahtor952-785Tow [facility] CenterComment on above: Performed By: #### AFPTET #### [facility] [address] [place] [address] Dr. Belkys FajardoRBC3.88 106/ulCritically low4.20-5.40The [facility] CenterComment on above:Performed By: #### AFPTET #### [facility] [address] [place] [address] Dr. Belkys FajardoWBC19.3 103/ulCritically high4.0-11.0The [facility] CenterComment on above:Performed By: #### AFPTET #### [facility] [address] [place] [address] Dr. Belkys Mistry URINEon [id number] URINECulture Observations: LIGHT GROWTH OF MIXED GENITAL HEYID. NO POTENTIAL PATHOGENS SEEN.NormalThe [facility]point Medical CenterComment on above:Performed By: #### FLORES UMNARAYANRO #### [facility] [address] [place] [address] Dr. Belkys FajardoCovid-19 PCR (CVDTBH)on [id number]-CoV-2 (COVID-19) RNA DEVIN+probe Ql (Unsp spec)Not detectedNormalNOT DETECTEDMercy Health Perrysburg Hospital Comment on above:Result Comment: When diagnostic testing is negative, the [...] for this test is supported by the [employer] of Health and Human Service's declaration that circumstances exist to justify the emergency use of in vitro diagnostics for the detection and/or diagnosis of the virus that causes COVID-19. This EUA will remain in effect for the duration of the COVID-19 declaration justifying emergency of IVDs, unless it is terminated or revoked by the FDA (after which the test may no longer be used).Performed By: #### CVDTBH #### [facility] [address] [place] [address] Dr. Belkys FajardoDRUG SCREEN RAPID (URINE)on [id number]B [facility] HospitalComment on above:Performed By: #### AFPTET #### [facility] [address] [place] [address] Dr. Belkys FajardoBARNegativeNormalNEGATIVEMercy Health Perrysburg HospitalComment on above: Performed By: #### AFPTET #### [facility] [address] [place] [address] Dr. Belkys DamicoPNegativeNormalNEGATIVEMercy Health Perrysburg HospitalComment on above: Performed By: #### AFPTET #### [facility] [address] [place] [address] Dr. Belkys FajardoBZONegativeNormalNEGATIVEMercy Health Perrysburg HospitalComment on above: Performed By: #### AFPTET #### [facility] [address] [place] [address] Dr. Blekys HendersonCNegativeNormalNEGATIVEMercy Health Perrysburg HospitalComment on above: Performed By: #### AFPTET #### [facility] [address] [place] [address] Dr. Belkys ParsonThe Surgical Hospital at SouthwoodsComment on above: Result Comment: AMP (Amphetamine): 500ng/mL, BAR (Barbituates): 200 ng/mL, BZO (Benzodiazepines): 150 ng/mL, BUP (Buprenorphine): 10 ng/mL, VALENCIA (Cocaine): 150 ng/mL, mAMP (Methamphetamine): 500 ng/mL, MTD (Methadone): 200 ng/mL, OPI (Opiates): 100 ng/mL, OXY (Oxycodone): 100 ng/mL, PCP (Phencyclidine): 25 ng/mL, PPX (Propoxyphene): 300 ng/mL, THC (Cannabinoids): 50 ng/mL, TCA (Trycyclic Antidepressants): 300 ng/mLPerformed By: #### AFPTET #### [facility] [address] [place] [address] Dr. Belkys FajardoDRUG CUT HEADERDRUG CLASS TEST SYSTEM CUT-OFF CONCENTRATIONS ARE FOLLOWS:NormalThe [facility] on above:Performed By: #### AFPTET #### [facility] [address] [place] [address] Dr. Belkys FajardomAMPNegativeNormalNEGATIVEMercy Health Perrysburg HospitalComschoolcraft memorial hospital on above: Performed By: #### AFPTET #### [facility] [address] [place] [address] Dr. Belkys FajardoMTDNegativeNormalNEGATIVEMercy Health Perrysburg HospitalComschoolcraft memorial hospital on above: Performed By: #### AFPTET #### [facility] [address] [place] [address] Dr. Belkys DukegativeNormalNEGATIVEMercy Health Perrysburg HospitalComschoolcraft memorial hospital on above: Performed By: #### AFPTET #### [facility] [address] [place] [address] Dr. Yilan ChangOXYNegativeNormalNEGATIVEMercy Health Perrysburg HospitalComment on above: Performed By: #### AFPTET #### [facility] [address] [address] [address] Belkys FajardoPCPNegativeNormalNEGATIVEMercy Health Perrysburg HospitalComschoolcraft memorial hospital on above: Performed By: #### AFPTET #### [facility] [address] [address] [address] Belkys FajardoPPXNegativeNormalNEGATIVEMercy Health Perrysburg HospitalComschoolcraft memorial hospital on above: Performed By: #### AFPTET #### [facility] [address] [address] [address] Blekys FajardoTCANegativeNormalNEGATIVEMercy Health Perrysburg HospitalComschoolcraft memorial hospital on above: Performed By: #### AFPTET #### [facility] [address] [place] [address] Dr. Belkys FajardoTHCNegativeNormalNEGATIVEMercy Health Perrysburg HospitalComschoolcraft memorial hospital on above: Performed By: #### AFPTET #### [facility] [address] [place] [address] Dr. Belkys FajardoTYPE AND SCREENon [id number] AND SCREENNegativeNormalThe [facility] on above:Performed By: #### FLORES UMICRO #### [facility] [address] [place] [address] Dr. Belkys Gusman (CLEAN/CATCH) DRAIN TILE PRESS OPERATOR/MICRO IF IND.on [id number] Ql (U) NegativeNormalNEGATIVEMercy Health Perrysburg HospitalComment on above:Performed By: #### FLORES UMICRO #### [facility] [address] [place] [address] Dr. Belkys Bellarity (U)CLEARNormalCLEARMercy Health Perrysburg HospitalComschoolcraft memorial hospital on above: Performed By: #### AZCSTAMELA, UMICRO #### [facility] [address] [place] [address] Dr. Belkys Avila (U)LT. YELLOWNormalYELLOWMercy Health Perrysburg HospitalComment on above:Performed By: #### UACSIND, UMICRO #### [facility] [address] [address] [address] Belkys FajardoGlucose Ql (U)NegativeNormalNEGATIVEThe [facility] Medical CenterComment on above:Performed By: #### FLORES, UMICRO #### [facility] [address] [address] [address] Belkys FajardoHemoglobin Ql (U)TRACE-INTACTAbnormalNEGATIVEThe [facility] Medical CenterComment on above:Performed By: #### FLORES UMICRO #### [facility] [address] [address] [address] Belkys FajardoKetones Ql (U)NegativeNormalNEGATIVEThe [facility] Medical CenterComment on above:Performed By: #### FLORES UMICRO #### [facility] [address] [address] [address] Belkys FajardoLEUKOCYTESMODERATEAbnormalNEGATIVEThe [facility] Medical CenterComment on above:Performed By: #### FLORES UMICRO #### [facility] [address] [address] [address] Belkys Sancheztrite Ql (U)NegativeNormalNEGATIVEMercy Health Perrysburg HospitalComment on above:Performed By: #### FLORES UMICRO #### [facility] [address] [address] [address] Belkys FajardopH (U)6.5 [pH]Normal5-9The [facility] Medical CenterComment on above: Performed By: #### FLORES UMICRO #### [facility] [address] [address] [address] Belkys FajardoSPEC GRAVITY1.663Omvict6.005-<=1.025The [facility] Medical CenterComment on above:Performed By: #### FLORES, UMICRO #### [facility] [address] [address] [address] Belkys FajardoUA PROTEINNegativeNormalNEGATIVE/ TRACEThe [facility] on above:Performed By: #### FLORES UMICRO #### [facility] [address] [address] [address] Belkys LUCIANO INDINDICATEDMercy Memorial HospitalComment on above: Performed By: #### FLORES UMICRO #### [facility] [address] [address] [address] Belkys Jason Qn (U)0.2 {Jakob'U}/dLNormal0.2 - 1.0The [facility] Medical CenterComment on above:Performed By: #### FLORES UMICRO #### [facility] [address] [address] [address] Belkys WALLACE ONLYon [id number]W SEEN The [facility] CenterComschoolcraft memorial hospital on above:Performed By: #### FLORES UMICRO #### [facility] [address] [address] [address] Belkys Herrera identified Cx Nom (U)INDICATEDNoUniversity Hospitals Portage Medical CenterComment on above:Performed By: #### FLORES UMICRO #### [facility] [address] [address] [address] Belkys Lockhart SEENNormalNONE SEENMercy Health Perrysburg HospitalComschoolcraft memorial hospital on above:Performed By: #### FLORES UMICRO #### [facility] [address] [address] [address] Belkys Cantrell LM Nom (Urine sed)NONE SEENNormalNONE SEENThe [facility] Medical CenterComschoolcraft memorial hospital on above:Performed By: #### FLORES UMICRO #### [facility] [address] [address] [address] Belkys Quintanillathelial cells LM Ql (Urine sed)FEWAbnormalNONE SEEN /RAREThe [facility] Medical CenterComschoolcraft memorial hospital on above:Performed By: #### FLORES UMICRO #### [facility] [address] [address] [address] Belkys Sawyer SEENNormalNONE SEENMercy Health Perrysburg HospitalComment on above:Performed By: #### UACSIND, UMICRO #### [facility] [address] [address] [address] Belkys FajardoRBRABIA SEENAbnormal0-2[facility] HospitalComment on above: Performed By: #### UACSIND, UMICRO #### [facility] [address] [address] [address] Belkys FajardoWBC5-10AbnormalNONE SEENMercy Health Perrysburg HospitalComment on above: Performed By: #### UACSIND, UMICRO #### [facility] [address] [address] [address] Belkys Ennis PREG GROWTHon [id number] PREG GROWTHEXAMINATION: US PREG GROWTH HISTORY: Large for gestation [...] above. Electronically authenticated by: AILYN BLACK Date: 2022-01-12 21:15NormalMercy Health Perrysburg HospitalGROUP B STREP CULTUREon 01-06-2022. agalactiae Ag Ql (Unsp spec)Culture Observations: NEGATIVE FOR GROUP B STREPTOCOCCUS.NormalMercy Health Perrysburg HospitalComment on above: Performed By: #### GBSCX #### [facility] [address] [address] [address] Belkys FajardoGTT 3 HR PREGon 09-13-5556Ymskuqv [Mass/Vol]91 mg/cCXnzduh67-535 [facility] HospitalComment on above:Performed By: #### GTT3P #### [facility] [address] [place] [address] Dr. Belkys FajardoGlucose [Mass/Vol]172 mg/dLMercy Memorial HospitalComment on above:Performed By: #### GTT3P #### [facility] [address] [place] [address] Dr. Belkys FajardoGlucose [Mass/Vol]148 mg/dLNoUniversity Hospitals Portage Medical CenterComment on above:Performed By: #### GTT3P #### [facility] [address] [place] [address] Dr. Belkys FajardoGlucose [Mass/Vol]58 mg/dLNoUniversity Hospitals Portage Medical CenterComment on above:Performed By: #### GTT3P #### [facility] [address] [place] [address] Dr. Belkys Ennis PREG GROWTHon [id number] PREG GROWTHEXAMINATION: US PREG GROWTH HISTORY: Large for gestation [...] Electronically authenticated by: AILYN BLACK Date: 2021-12-08 16:52Mercy Memorial HospitalGLUCOSE - 1HRon 98-54-4794Fsksfdp [Mass/Vol]143 mg/dLCritically jmvx22-105Log [facility] CenterComment on above:Performed By: #### UACSJENNIFER RAPPRO #### [facility] [address] [place] [address] Dr. Belkys FajardoHEMOGRAM AND PLATELoabel 98-81-0589Uwfkvfqkgx (Bld) [Volume fraction]31.7 %Critically low36.0-48.0The [facility] Medical CenterComment on above: Performed By: #### AFPTET #### [facility] [address] [place] [address] Dr. Belkys FajardoHemoglobin (Bld) [Mass/Vol]10.4 g/dLCritically low12.0-16.0The [facility] Medical CenterComment on above:Performed By: #### AFPTET #### [facility] [address] [place] [address] Dr. Belkys GuerraH (RBC) [Entitic mass]28.8 aoOnvjal03.7-34.0The [facility] Medical CenterComment on above:Performed By: #### AFPTET #### [facility] [address] [place] [address] Dr. Belkys GuerraHC (RBC) [Mass/Vol]32.8 g/lOPdmohk84.9-35.2The [facility] Medical CenterComment on above:Performed By: #### AFPTET #### [facility] [address] [place] [address] Dr. Belkys GuerraV (RBC) [Entitic vol]87.8 wCJnwgyc29.0-99.0The [facility] Medical CenterComment on above:Performed By: #### AFPTET #### [facility] [address] [place] [address] Dr. Belkys FajardoPLT261 103/fdTxmvwe752-602Drt [facility] CenterComment on above: Performed By: #### AFPTET #### [facility] [address] [place] [address] Dr. Belkys FajardoRBC3.61 106/ulCritically low4.20-5.40The [facility] Medical CenterComment on above:Performed By: #### AFPTET #### [facility] [address] [place], [place] [address] Dr. Belkys FajardoWBC11.5 103/ulCritically high4.0-11.0The [facility] on above:Performed By: #### AFPTET #### [facility] [address] [place], [place] [address] Dr. Belkys Ennis PREG PLACENTAon [id number] PREG PLACENTAEXAMINATION: US PREG PLACENTA HISTORY: Low lying placenta COMPARISON: Ultrasound placenta 10/14/2021 FINDINGS: PLACENTA: Contains a small venous seth. Lower margin of placenta 3.5 cm from os. CERVIX LENGTH: 4.0 cm, closed. HEART RATE: 155 bpm OTHER: None. IMPRESSION: 1. Posterior placenta which is no longer low-lying. Electronically authenticated by: AILYN BLACK Date: 2021-11-10 21:07NoUniversity Hospitals Portage Medical CenterUS PREG PLACENTAon [id number] PREG PLACENTAEXAMINATION: US PREG PLACENTA HISTORY: Low lying placenta COMPARISON: Ultrasound anatomy 09/16/2021 FINDINGS: PLACENTA: Posterior with lower margin 2.5 cm from os. CERVIX LENGTH: 4.4 cm, closed. HEART RATE: 157 bpm OTHER: None. IMPRESSION: 1. Low-lying posterior placenta; no appreciable change compared to prior study. Electronically authenticated by: AILYN BLACK Date: 2021-10-14 19:56Mer[facility] Memorial HospitalUS PREG ANATOMY SINGLEon [id number] PREG ANATOMY SINGLE EXAMINATION: US PREG ANATOMY [...] Electronically authenticated by: AILYN BLACK Date: 2021-09-16 16:54[facility] TETRA PROFILE (MATERNAL)on [id number].NormalThe [facility] Medical CenterComment on above:Performed By: #### AFPTET #### [facility] [address] [address] [address] Belkys Wang MoM0.86NoUniversity Hospitals Portage Medical CenterComment on above:Performed By: #### AFPTET #### [facility] [address] [address] [address] Belkys Wang Value39.7 ng/mLNormalMercy Health Perrysburg HospitalComment on above: Performed By: #### AFPTET #### [facility] [address] [address] [address] Belkys SpauldingCommentMercy Memorial HospitalComment on above:Result Comment: Martina Greer, Ph.D., [facility] Director . References: Available Upon Request. . Multiples Of Median Cutoffs Abbreviation Definitions For AFP Elevations IDD- Insulin Dep Diabetes Granados 2.5 Black 2.8 OSBR- Open Spina Bifida IDD 2.0 Twins 4.5 Risk DSR Cutoff 1:270 DSR- Down Syndrome Risk T18 Cutoff 1:100 T18- Trisomy 18 . Down Syndrome and Trisomy 18 screening are considered Investigational . For further inquiries contact [facility] at [phone].Performed By: #### AFPTET #### [facility] [address] [address] [address] Belkys Beltran MoM0.77Mer[facility] Memorial HospitalComment on above:Performed By: #### AFPTET #### [facility] [address] [address] [address] Belkys Beltran Fszpl383.50 pg/mLNormalMercy Health Perrysburg HospitalComment on above: Performed By: #### AFPTET #### [facility] [address] [place] [address] Dr. Belkys Goodson (By Age) 1 [id number] [facility] Hospital on above: Performed By: #### AFPTET #### [facility] [address] [place] [address] Dr. Belkys Goodson (Second Trimester) 1 [id number] Memorial Hospital Comment on above:Performed By: #### AFPTET #### [facility] [address] [place] [address] Dr. Belkys Maldonado. Age on Collection Date18.7 WEEKSMercy Memorial Hospital Comment on above:Performed By: #### AFPTET #### [facility] [address] [place] [address] Dr. Belkys Sanon. Age Based OnLMPNMarietta Osteopathic ClinicComschoolcraft memorial hospital on above:Result Comment: 2Performed By: #### AFPTET #### [facility] [address] [place] [address] Dr. Belkys Heller MoM0.78Mer[facility] Memorial HospitalComment on above:Performed By: #### AFPTET #### [facility] [address] [place] [address] Dr. Belkys Heller Vy07450 m[IU]/mLNMarietta Osteopathic ClinicComment on above: Performed By: #### AFPTET #### [facility] [address] [place] [address] Dr. Belkys FajardoInsulin Dep Providence HospitalComment on above:Performed By: #### AFPTET #### [facility] [address] [place] [address] Dr. Belkys FajardoInterpretationKettering Health Hamilton on above: Result Comment: Interpretation: Screen Negative This result is screen negative [...] identifies 60% of Trisomy 18 pregnancies. The [employer] recommends amniocentesis be offered to women age 35 and older. Recalculations are not recommended when gestational dating by LMP and ultrasound are within 10 days.Performed By: #### AFPTET #### [facility] [address] [place] [address] Dr. Belkys FajardoMaternakari Age At EDD29.2 yrMercy Memorial HospitalComschoolcraft memorial hospital on above:Performed By: #### AFPTET #### [facility] [address] [place] [address] Dr. Belkys Thomson [facility] Memorial HospitalComschoolcraft memorial hospital on above: Performed By: #### AFPTET #### [facility] [address] [place] [address] Dr. Belkys FajardoOSBR Risk 1 [id number] Memorial HospitalComschoolcraft memorial hospital on above: Performed By: #### AFPTET #### [facility] [address] [place] [address] Dr. Belkys DesirucaOhioHealth Grady Memorial HospitalComschoolcraft memorial hospital on above: Performed By: #### AFPTET #### [facility] [address] [place] [address] Dr. Belkys FajardoResultsReportMercy Memorial HospitalComment on above: Performed By: #### AFPTET #### [facility] [address] [address] [address] Belkys Rose8 (By Age)1:2981Mercy Memorial HospitalComschoolcraft memorial hospital on above: Performed By: #### AFPTET #### [facility] [address] [address] [address] Belkys Garcia RiskNot increasedMercy Memorial HospitalComment on above: Performed By: #### AFPTET #### [facility] [address] [address] [address] Belkys Buchanan Results:NegativeOhio Valley Hospital on above: Performed By: #### AFPTET #### [facility] [address] [address] [address] Belkys Negrete3 MoM1.43NoUniversity Hospitals Portage Medical CenterComment on above:Performed By: #### AFPTET #### [facility] [address] [place] [address] Dr. Belkys Negrete3 Value2.26 ng/mLNSelect Medical Specialty Hospital [facility] [place] on above: Performed By: #### AFPTET #### [facility] [address] [place] [address] Dr. Beklys Moon ACOG PANEL 2: 21 to 29on 08-24-2021..NormalKeenan Private Hospital on above:Result Comment: Performed at: BAPerformed By: #### [id number] #### [facility] [address] [place] [address] Dr. Belkys Vanegas Gdln ACOG Zvuubtz23-28TgpqjhBiaOhio Valley Hospital on above:Performed By: #### [id number] #### [facility] [address] [place] [address] Dr. Belkys FajardoDIAGNOSIS:CommentOhio Valley Hospital on above: Result Comment: NEGATIVE FOR INTRAEPITHELIAL LESION OR MALIGNANCY. Performed at: BAPerformed By: #### [id number] #### [facility] [address] [place] [address] Dr. Belkys FajardoMethodology:CommentOhio Valley Hospital on above: Result Comment: This liquid based ThinPrep(R) pap test was screened with the use of an image guided system. Performed at: Performed By: #### [id number] #### [place] [address] Dr[address] Belkys FajardoNote:CommentOhio Valley Hospital on above:Result Comment: The Pap smear is a screening test designed to aid in the detection of premalignant and malignant conditions of the uterine cervix. It is not a diagnostic procedure and should not be used as the sole means of detecting cervical cancer. Both false-positive and false-negative reports do occur. . Performed at: Performed By: #### [id number] #### [place] [address] Dr[address] Belkys FajardoPerformed by:CommentOhio Valley Hospital on above: Result Comment: Vicky Avila, Early Intervention School Psychologist (ASCP) Performed at: [facility] Hospitalformed By: #### [id number] #### [place] [address] Dr[address] Belkys FajardoReflex Criteria:CommentOhio Valley Hospital on above:Result Comment: The HPV DNA reflex criteria were not met with this specimen result therefore, no HPV testing was performed. . Performed at: BAPerformed By: #### [id number] #### [facility] [address] [place] [address] Dr. eBlkys FajardoSpecimen adequacy:CommentOhio Valley Hospital on above:Result Comment: Satisfactory for evaluation. No endocervical component is identified. Performed at: BAPerformed By: #### [id number] #### [place] [address] Dr[address] Belkys FajardoLyndon AUTO DIFFon 12-66-5126ZCNW #0.0 103/ulNormal0.0-0.1The [facility] on above:Performed By: #### CBC #### [facility] [address] [address] [address] Belkys FajardoBasophils/100 WBC (Bld)0.2 %Normal0.2-2.0The [facility] Comment on above:Performed By: #### CBC #### [facility] [address] [place] [address] Dr. Belkys Gimenez #0.2 103/ulNormal0.0-0.7The [facility] Medical CenterComment on above: Performed By: #### CBC #### [facility] [address] [place] [address] Dr. Belkys Thomasosinophils/100 WBC (Bld)1.9 %Normal0.9-7.0The [facility] Comment on above:Performed By: #### CBC #### [facility] [address] [place] [address] Dr. Belkys Thomasrythrocyte distribution width (RBC) [Ratio]13.4 %Ygdicw32.0-15.0 [facility] HospitalComment on above:Performed By: #### CBC #### [facility] [address] [place] [address] Dr. Belkys FajardoHematocrit (Bld) [Volume fraction]32.7 %Critically low36.0-48.0 [facility] HospitalComment on above:Performed By: #### CBC #### [facility] [address] [place] [address] Dr. Belkys FajardoHemoglobin (Bld) [Mass/Vol]11.0 g/dLCritically low12.0-16.0The [facility] CenterComment on above:Performed By: #### CBC #### [facility] [address] [place] [address] Dr. Belkys Ortega #0.05 10e3/ulCritically high0.00-0.03The [facility] Comment on above:Performed By: #### CBC #### [facility] [address] [place] [address] Dr. Belkys Ortega %0.5 %Normal0.0-0.5The [facility] CenterComment on above: Performed By: #### CBC #### [facility] [address] [address] [address] Belkys Morales #2.3 103/ulNormal1.2-3.8The [facility] CenterComment on above:Performed By: #### CBC #### [facility] [address] [address] [address] Belkys Chancehocytes/100 WBC (Bld)22.4 %Hmdiqp57.5-60.0The [facility] CenterComment on above:Performed By: #### CBC #### [facility] [address] [place] [address] Dr. Belkys Waite DIFF REQNONormalThe [facility] CenterComment on above: Performed By: #### CBC #### [facility] [address] [place] [address] Dr. Belkys Guerra (RBC) [Entitic mass]29.3 fdMgusfg80.7-34.0The [facility] CenterComment on above:Performed By: #### CBC #### [facility] [address] [place] [address] Dr. Belkys Guerra (RBC) [Mass/Vol]33.6 g/eRIbxfpl02.9-35.2The [facility] CenterComment on above:Performed By: #### CBC #### [facility] [address] [place] [address] Dr. Belkys Guerra (RBC) [Entitic vol]87.2 jIDqesds85.0-99.0The [facility] CenterComment on above:Performed By: #### CBC #### [facility] [address] [place] [address] Dr. Belkys Johnson #0.6 103/ulNormal0.3-0.8The [facility] CenterComment on above:Performed By: #### CBC #### [facility] [address] [place] [address] Dr. Belkys Mooreocytes/100 WBC (Bld)5.5 %Normal1.7-12.0The [facility] Comment on above:Performed By: #### CBC #### [facility] [address] [place] [address] Dr. Belkys Dwyer #7.1 103/ulCritically high1.4-6.5ThPro[facility] Comment on above:Performed By: #### CBC #### [facility] [address] [place] [address] Dr. Belkys Muñizutrophils/100 WBC (Bld)69.5 %Vkexyn01.0-75.0The [facility] CenterComment on above:Performed By: #### CBC #### [facility] [address] [place] [address] Dr. Belkys Guevara mean volume (Bld) [Entitic vol]10.3 fLNormal9.5-13.5The [facility] CenterComment on above:Performed By: #### CBC #### [facility] [address] [place] [address] Dr. Belkys FajardoPLT258 103/rrJhcciz501-070Fgd [facility] CenterComment on above: Performed By: #### CBC #### [facility] [address] [place] [address] Dr. Belkys FajardoRBC3.75 106/ulCritically low4.20-5.40The [facility] CenterComment on above:Performed By: #### CBC #### [facility] [address] [place] [address] Dr. Belkys FajardoWBC10.2 103/ulNormal4.0-11.0The [facility] CenterComment on above:Performed By: #### CBC #### [facility] [address] [place] [address] Dr. Belkys Lisa CHEST WO W CONon 93-80-6600SXW CHEST WO W CONCTA CHEST WO W CON CLINICAL: CHEST PAIN, [...] Electronically authenticated by: ROSARIO HERNANDEZ Date: 2021-08-22 08:31NoUniversity Hospitals Portage Medical CenterCovid-19 PCR (CVDTBH)on 58-40-3475XKYY-CoV-2 (COVID-19) RNA DEVIN+probe Ql (Unsp spec)Not detectedNormalNOT DETECTEDThe [facility] Comment on above:Result Comment: When diagnostic testing is negative, the [...] for this test is supported by the [employer] of Health and Human Service's declaration that circumstances exist to justify the emergency use of in vitro diagnostics for the detection and/or diagnosis of the virus that causes COVID-19. This EUA will remain in effect for the duration of the COVID-19 declaration justifying emergency of IVDs, unless it is terminated or revoked by the FDA (after which the test may no longer be used).Performed By: #### CVDTBH #### [facility] [address] [address] [address] Belkys Felix 14(COMP METB)on 24-89-7219Jwtmxde [Mass/Vol]3.0 g/dL Critically low3.4-5.0The [facility] CenterComment on above:Performed By: #### AFPTET #### [facility] [address] [address] [address] Belkys FajardoAlbumin/Globulin [Mass ratio]0.8 {ratio}NormalThe [facility] CenterComment on above:Performed By: #### AFPTET #### [facility] [address] [address] [address] Belkys Eisenberg [Catalytic activity/Vol]52 U/RXyhplw04-581Zgn [facility] CenterComment on above:Performed By: #### AFPTET #### [facility] [address] [address] [address] Belkys Harper [Catalytic activity/Vol]32 U/ARmyljg20-47Tbj [facility] CenterComment on above:Performed By: #### AFPTET #### [facility] [address] [address] [address] Belkys Floreson gap [Moles/Vol]12.8 mmol/LNormalThe [facility] Comment on above:Performed By: #### AFPTET #### [facility] [address] [address] [address] Belkys FajardoAST [Catalytic activity/Vol]17 U/SQxkpuh44-02Vts [facility] CenterComschoolcraft memorial hospital on above:Performed By: #### AFPTET #### [facility] [address] [address] [address] Belkys FajardoBilirubin [Mass/Vol]0.3 mg/dLNormal0.2-1.0The [facility] Comment on above:Performed By: #### AFPTET #### [facility] [address] [address] [address] Belkys FajardoCalcium [Mass/Vol]8.5 mg/dLNormal8.5-10.1The [facility] Comment on above:Performed By: #### AFPTET #### [facility] [address] [address] [address] Belkys FajardoChloride [Moles/Vol]103 mmol/WTpsnme84-177Tuw [facility] Comment on above:Performed By: #### AFPTET #### [facility] [address] [address] [address] Belkys FajardoCO2 [Moles/Vol]24.7 mmol/UHgcaia78.0-32.0The [facility] Comment on above:Performed By: #### AFPTET #### [facility] [address] [address] [address] Belkys FajardoCreatinine [Mass/Vol]0.46 mg/dLCritically low0.55-1.02[facility] HospitalComment on above:Performed By: #### AFPTET #### [facility] [address] [address] [address] Belkys ThomasGFR-AF BAHRAINI>60Normal>=60The [facility] CenterComment on above:Performed By: #### AFPTET #### [facility] [address] [address] [address] Belkys ThomasGFR-NON AF BAHRAINI>60Normal>=60The [facility] CenterComment on above:Performed By: #### AFPTET #### [facility] [address] [address] [address] Belkys FajardoGlobulin (S) [Mass/Vol]3.7 g/dLNormalThe [facility] CenterComment on above:Performed By: #### AFPTET #### [facility] [address] [address] [address] Belkys FajardoGlucose [Mass/Vol]84 mg/nIHrkfjk15-984JtdMercy Health Perrysburg Hospital Comment on above:Performed By: #### AFPTET #### [facility] [address] [address] [address] Belkys FajardoPotassium [Moles/Vol]3.5 mmol/LNormal3.5-5.1The [facility] Comment on above:Performed By: #### AFPTET #### [facility] [address] [address] [address] Belkys FajardoProtein [Mass/Vol]6.7 g/dLNormal6.4-8.2The [facility] Comment on above:Performed By: #### AFPTET #### [facility] [address] [place] [address] Dr. Belkys FajardoSodium [Moles/Vol]137 mmol/BMrajmj055-659Gbi [facility] Comment on above:Performed By: #### AFPTET #### [facility] [address] [place] [address] Dr. Belkys FajardoUrea nitrogen [Mass/Vol]7.0 mg/dLNormal7.0-18.0[facility] HospitalComment on above:Performed By: #### AFPTET #### [facility] [address] [place] [address] nitrogen/Creatinine [Mass ratio]15.2 mg/mgNoalThe [facility] CenterComment on above:Performed By: #### AFPTET #### [facility] [address] [place] [address] Dr. Belkys Hay, HIGH SENSITIVITYon 87-63-5924XIJNRK<4.6Rnlqta2.0-51.3 The [facility] Medical CenterComment on above:Result Comment: CUT-OFF POINTS HAVE BEEN ESTABLISHED BASED ON THE FOURTH UNIVERSAL DEFINITIONS OF MYOCARDIAL INFARCTION. THE UPPER REFERENCE LIMIT (URL) OF TROPONIN, DEFINED THE 99TH PERCENTILE OF cTnI DISTRIBUTION IN A REFERENCE POPULATION, HAS BEEN CONFIRMED THE DECISION THRESHOLD FOR [place] DIAGNOSIS.Performed By: #### AFPTET #### [facility] [address] [place] [address] Dr. Belkys FajardoCHLAMYDIA/GONOCOCCUS DEVIN (SWAB/URINE/PAPon 38-75-5745Muktslzzp trachomatis, NAANegativeNormalNegativeMercy Health Perrysburg HospitalComment on above: Performed By: #### CT/NGNA #### [facility] [address] [place] [address] Dr. Belkys FajardoNeisseria gonorrhoeae, NAANegativeNormalNegativeThe [facility] CenterComment on above:Performed By: #### CT/NGNA #### [facility] [address] [place] [address] Dr. Belkys FajardoVAGINITIS/VAGINOSIS DNA PROBEon 50-77-7054Ekarxxq speciesNegative NormalNegativeMercy Health Perrysburg HospitalComment on above:Performed By: #### AFPTET #### [facility] [address] [address] [address] Belkys Husseinerella vaginalisNegativeNormalNegativeMercy Health [facility] Hospital Comment on above:Performed By: #### AFPTET #### [facility] [address] [address] [address] Belkys FajardoTrichomonas vaginalisNegativeNormalNegativeMercy Health Perrysburg Hospital Comment on above:Performed By: #### AFPTET #### [facility] [address] [address] [address] Belkys Fajardo Vital Signs Date TimeVital SignValuePerforming DwsfefdoeLpbygmuh26-02-3441 15:01-0400Body mass index (BMI) [Ratio]25.53 kg/r8XaltcSt. [facility]09-25-2025 15:01-0400 Body .94 kgSt. [facility]'s [facility]09-25-2025 15:01-0400Diastolic blood rhezwzyh79 mm[Hg][facility]09-25-2025 15:01-0400Systolic blood werzvrcz859 mm[Hg][facility]09-11-2025 14:32-0400Body mass index (BMI) [Ratio]25.97 kg/m2Reanna PUENTE Work Phone: [phone] HospitalIfxytagejw69-28-0337 14:32-0400Body pnxupd62.21 kgReanna PUENTE Work Phone: [phone] HospitalAgbygljwfh72-03-6585 14:32-0400Diastolic blood kxbpdutu94 mm[Hg]Reanna PUENTE Work Phone: [phone]-[facility] HospitalSaint [facility]'s HospitalNurtfhaoht65-18-4072 14:32-0400Systolic blood hiuztxun125 mm[Hg]Reanna PUENTE Work Phone: [facility] HospitalHnyagbzmvc40-15-4275 16:16-0400Body mass index (BMI) [Ratio]26.31 kg/x4Znjtm Deshaun DO Work Phone: [facility] HospitalBwcaxrstit52-34-4452 16:16-0400Body ezgokp24.2 kg Jordan Deshaun DO Work Phone: [facility] HospitalWfycccszxb59-52-6337 16:16-0400Diastolic blood eqaekdsz76 mm[Hg]Jordan Deshaun DO Work Phone: [facility] HospitalJsefhnoown91-13-9091 16:16-0400Systolic blood sbirlsww026 mm[Hg]Jordan Deshaun DO Work Phone: [facility] HospitalBejawfavsa36-08-3396 10:49-0400Body rnkoda648.72 cmThe [facility]10-16-2024 10:49-0400Body mass index (BMI) [Ratio]26.9 kg/u8VekaqfprcThe [facility]10-16-2024 10:49-0400Body lwwmyojskdv88.2 [degF][facility]10-16-2024 10:49-0400Body djihce52.28 kgThe [facility]10-16-2024 10:49-0400Diastolic blood ovcucmuj93 mm[Hg][facility]10-16-2024 10:49-0400 Heart rate84 /[facility]10-16-2024 10:49-0400 Respiratory rate18 /[facility]10-16-2024 10:49-0400 SaO2% (BldA) [Mass fraction]97 %[facility]10-16-2024 10:49-0400Systolic blood mm[Hg][facility] 12-20-2023 10:27-0400Body mass index (BMI) [Ratio]28.72 kg/n0Pofau Deshaun DO Work Phone: [facility] HospitalEzaikajaas35-21-9091 10:27-0400Body pyucck75.19 kgCorey Deshaun DO Work Phone: [facility] HospitalUlxdsrxnto54-05-5226 10:27-0400Diastolic blood srueddee86 mm[Hg]Jordan Deshaun DO Work Phone: [facility] HospitalGtgdeirjgg71-05-7835 10:27-0400Systolic blood pjokliys350 mm[Hg]Jordan Deshaun DO Work Phone: [facility] HospitalRksiojfjmg68-99-0709 11:43-0400Body mass index (BMI) [Ratio]29.88 kg/s5Wecau Deshaun DO Work Phone: [facility] HospitalMlndbukggm62-16-7643 11:43-0400Body ptsecn23.55 kgCorebrit Riggso DO Work Phone: [facility] HospitalHxqoigxqyq10-63-8530 11:43-0400Diastolic blood sihmsyne83 mm[Hg]Jordan Riggso DO Work Phone: [facility] HospitalOtzyyefief33-98-1342 11:43-0400Systolic blood bghyjvyj759 mm[Hg]Jordan Riggso DO Work Phone: [facility] HospitalZfhcoknqrv18-16-5248 23:41-0400Heart rate94 /min Brittni William DO Work Phone: [employer] [facility]PITALSecure SoftwareYKXTMR26-69-0808 23:41-7187ZsM9% (BldA) [Mass fraction]98 %Brittni William DO Work Phone: [employer] [facility]ITALSecure SoftwareCYSTMB55-57-2675 23:38-0400Diastolic blood jlouwnor43 mm[Hg]Brittni William DO Work Phone: [employer] [facility]ITALSecure SoftwareUIMUVJ98-25-9202 23:38-0400Systolic blood oxydogxz145 mm[Hg]Brittni William DO Work Phone: [employer] [facility]ITALSecure SoftwareGOLACE15-17-7768 21:18-0400Body jujmcefkyel81.6 [degF]Brittni William DO Work Phone: [employer] [facility]ITALSecure SoftwareSHEFVW97-20-2003 21:18-0400 Respiratory rate20 /minJaveria William DO Work Phone: [employer] [facility]ITALSecure SoftwareNZUVZP87-38-4522 21:16-0400Body nzlwop612.7 cmJaveria William DO Work Phone: [employer]06-25-2024 21:16-0400Body mass index (BMI) [Ratio]27.67 kg/y0Dcimwsr William DO Work Phone: [employer]06-25-2024 21:16-0400Body lbmegz09.56 kgJaveria William DO Work Phone: [employer]05-03-2023 10:15-0400Body jkmohs098.18 cmBenjamin Ball Other [employer] Other 05-03-2023 10:15-0400Body mass index (BMI) [Ratio] 27.81 kg/y3Wyamyusr Ball Other [employer] Other 05-03-2023 10:15-0400Body .56 kgBenjamin Ball Other [employer] Other 05-03-2023 10:15-0400Diastolic blood levxwovm23 mm[Hg] Nick Ball Other [employer] Other 05-03-2023 10:15-0400Systolic blood ebnolhjh194 mm[Hg] Nick Ball Other [employer] Other 03-10-2023 17:00-0500Body kkqqaq777.18 Jaqui Guidry Other [employer] Other 03-10-2023 17:00-0500Body mass index (BMI) [Ratio] 28.19 kg/g7OsxzcCristal Guidry Other [employer] Other 03-10-2023 17:00-0500Body kfstqgueshy87.4 [degF]Cristal Guidry Other [employer] Other 03-10-2023 17:00-0500Body jmmuil43.65 kgCristal Guidry Other [employer] Other 03-10-2023 17:00-0500Respiratory rate18 /minCristal Guidry Other [employer] Other 03-10-2023 17:00-1169IfW2% (BldA) [Mass fraction]98 % Cristal Guidry Other [employer] Other 06-12-2022 02:05-0400Body .112 kgDR JORDAN MEADE .The [facility] CenterComment on above:Performed By: #### AFPTET #### [facility] [address] [place] [address] Dr. Belkys Fajardo Encounters Encounter DateEncounter TypeCare ProviderFacilityStart: 12-31-2024 End: 78-09-7859jeorixsgnhVgehToribio Capone [facility] Work Phone: Start: 12-31-2024 End: 07-92-3842Axwqitof Johnny Cespedes DO-LAB Path Spec [facility] HospStart: 12-20-2024 End: 72-81-9684guewlvtosvLsfia Nurse N[facility] Bcp ObNOMS Dexter OBGYNComment on above:GA: 1f8cGncms: 12-06-2024 End: 89-93-1499Dlwifi outpatient visit 15 minutesReanna PUENTE Work Phone: [facility]ter OBGYNComment on above:Bleeding in early (HHS-HCC); NauseaStart: 12-06-2024 End: 07-66-4152extvleeksrGYW RAMEYNot AvailableStart: 11-28-2024 End: 10-51-4751Eosuwtiuy department patient visitTim RupertFacility:FTMCStart: 07-11-2024 End: 13-92-0004ajsyztzuorAZTCW FAZIONot AvailableStart: 07-11-2024 End: 76-07-8960Wfznjdv encounter procedureCorey Deshaun DO Work Phone: noMS HealthcareStart: 07-11-2024 End: 18-53-4612Bfszlcmm preventive med est patient 18-39 yrsCorey Deshaun DO Work Phone: [facility] BCP OBComment on above:Well woman exam with routine gynecological exam; Abnormal uterine bleeding (AUB)Start: 07-11-2024 End: 52-52-4260Hqjcgk flowsheetCorey Deshaun DO Work Phone: [facility] BCP OBStart: 07-11-2024 End: 05-73-8629Qvewsy flowsheetCorey Deshaun DO Work Phone: [facility] BCP OBStart: 07-11-2024 End: 69-81-5274Sxsjawdjq Result EncounterCorey Deshaun DO Work Phone: noms External Department UnsolicitedStart: 01-11-2024 End: 53-65-8873bviztjsgrpBxexyiopkMcCullough-Hyde [facility] Hospital Work Phone: Start: 01-11-2024 End: 32-46-3550Qwmvyxl encounter procedureAt[facility] Work Phone: Start: 12-20-2023 End: 20-75-6655Pqhzgeyzve care visitCorey Deshaun DO Work Phone: noMS BCP OBComment on above:6 weeks follow-up; Encounter for female controlStart: 11-16-2023 End: 60-66-9434Xwluxo flowsheetCorey Deshaun DO Work Phone: [facility] BCP OBStart: 11-16-2023 End: 63-61-3960Lemtub flowsheetCorey Deshaun DO Work Phone: [phone] [facility] OBStart: 11-16-2023 End: 26-67-0651Nwfhrb follow up visit related to original Cruz Meade DO Work Phone: noms [facility] OBComment on above:S/P sectionStart: 09-20-2023 End: 05-83-1292Zcacdlzdx department patient visitHEATHER A MOISESSMYTH COUNTY COMMUNITY HOSPITALComment on above:Tachycardia (Primary Dx); POTS (postural orthostatic tachycardia syndrome)Start: 07-28-2023 End: 44-79-9603rfefifpnwhXEZYOZMorrow County Hospitaltart: 07-26-2023 End: 79-22-4098Bvbvudcpv department patient visitHEATHER A [facility] Centertart: 07-25-2023 End: 61-42-8073ecncbbasexZFLFZWSelect Medical Cleveland Clinic Rehabilitation Hospital, Beachwoodtart: 07-28-2022 End: 17-06-8994ktlsqiwvhiExbbdqym Ball Other [employer] Other Start: 82-21-0143Fcvrng outpatient visit 15 minutes [facility] ClinicStart: 98-62-1193Imlhivfvk encounterNick Leonardo [facility] ClinicStart: 06-04-2022 End: 17-00-9729uoxyananhsDtfar Keller Other [employer] Other Start: 70-57-5812Htjnyr outpatient new 20 minutesAmber ChaoGwen Urgent Care ClydeStart: 02-01-2022 End: 81-34-3682hxhotgdltrJP JORDAN DESHAUN .Facility:Q6Relqt: 01-23-2022 End: 87-89-0781Lmxtoirlai and management of inpatientDR NICK Barbosaity:H1 Start: 01-12-2022 End: 78-99-9984ojmcexliuoBN JORDAN DESHAUN .Facility:T8Yzeit: 01-06-2022 End: 85-04-9264etoawvpdftWK JORDAN DESHAUN .Facility:U9Oxghv: 12-11-2021 End: 47-16-8724bdxjugnfbtEE JORDAN DESHAUN .Facility:M6Plcxg: 12-08-2021 End: 50-37-0289hqrcdsdprrWJ JORDAN DESHAUN .Facility:V8Pbpxz: 11-12-2021 End: 56-46-2418mlwpvrkxlcIH JORDAN DESHAUN .Facility:K4Bkyrn: 11-10-2021 End: 86-37-5602aowejubcmyAC JORDAN DESHAUN .Facility:A0Gdrhk: 10-14-2021 End: 95-05-2097strecrsfzbAC JORDAN DESHAUN .Facility:F9Buzdi: 09-16-2021 End: 61-22-4469doosiqgqzvXQ JORDAN DESHAUN .Facility:R9Vobdb: 09-04-2021 End: 89-38-2941jqizxyygztOL JORDAN DESHAUN .Facility:R4Qiivq: 08-22-2021 End: 83-10-5510zlsirnpqcrJB CAMILO Mccoycility:W9Kvjeg: 08-18-2021 End: 54-44-8343cxkykgwimeBH JORDAN DESHAUN .Facility:T3Gjmxv: 04-10-2021 End: 22-46-7038Lnqraydixb hospital visit by [facility] Machine Pack As[employer]er [facility] EKG Comment on above:Palpitations; Post-COVID chronic palpitations; Shortness of breath; Lightheaded; Dizziness Procedures DateProcedureProcedure DetailPerforming ClinicianStart: 07-23-6552Nxjsv dip stick/tablet rgnt non-auto w/o micrscpCorey Deshaun DO Work Phone: Start: 47-24-5914Cxtxb test visual color cmprsn Alfonso Bowman PA Work Phone: Start: 04-65-9815Ighhf dip stick/tablet rgnt non-auto w/o micrscpCorey Deshaun DO Work Phone: Start: 83-19-2339PZN,APTIMA HPV,AGE GDLNCorey Deshaun DO Work Phone: Start: 77-52-3074Kj thorax w/contrast materialJaveria J William DO Work Phone: Start: 44-42-8015Xin routine ecg w/least 12 lds w/i&r Brittni Adriana William DO Work Phone: Start: 09-20-2023 End: 37-55-0449Ekmszgoezmwwh metabolic panelJaveria Adriana William DO Work Phone: Start: 45-56-8373Bnscme Rectum, Open ApproachDR JORDAN RIGGSO .Start: 30-77-5871Efbskuau of Products of Conception, External ApproachDR JORDAN DESHAUN .Start: 50-27-9309Uatllbfs of Female Perineum, External ApproachDR JORDAN MEADE .Start: 11-89-3669Avoslyoa of Amniotic Fluid, Therapeutic from Products of Conception, Via Natural or Artificial OpeningDR JORDAN MEADE .H/O: sectionS/P sectionCorey Deshaun DO Work Phone: Plan of Treatment DateCare ActivityDetailAuthorStart: 82-07-8916Vkaxeojhcuy Syncytial Virus (RSV) or age 60 yrs+ (1 - 1-dose 60+ series)Respiratory Syncytial Virus (RSV) or age 60 yrs+ (1 - 1-dose 60+ series)[facility]OS[facility]ITALStart: 01-16-2025 End: 37-51-7714Rtzqimz encounter yjpvnuqmw51/22/2025 3:00 PM EDT Routine [facility] [address], [id number] Jordan Meade, DO [address] [place] [address] [facility] GUERRAtart: 29-08-2121Wgqui [facility] Medical Centertart: 92-80-3614Vkaxetjk identified in Urine by CultureUrine [facility] Centertart: 12-20-2024 End: 59-29-6073mkkuwwmdnl58/25/2025 2:30 PM EDT Initial [facility] [address], [id number] [phone] [facility] OBGYNStart: 12-20-2024 End: 24-34-8630PEH/RhABO/Rh Lab Routine Missed menses , unspecified gestational age ([facility]) Expected: 12/20/2024 (Approximate), Expires: 12/20/2025NOMS HealthcareComment on above:Expected: 12/20/2024 (Approximate), Expires: 12/20/2025Start: 12-20-2024 End: 96-98-3934Zhilf type and Indirect antibody screen panel - BloodType and screen Lab Routine Missed menses , unspecified gestational age ([facility]) Expected: 12/20/2024 (Approximate), Expires: 12/20/2025[facility] Work Phone: comment on above:Expected: 12/20/2024 (Approximate), Expires: 12/20/2025Start: 12-20-2024 End: 97-66-8060Wzhne of abuse panel - Urine by Screen methodRapid drug screen, urine Lab Routine , unspecified gestational age ([facility]) Encounter for supervision of normal first in first trimester ([facility]) Expected: 12/20/2024 (Approximate), Expires: 12/20/2025[facility] HealthcareComment on above: Expected: 12/20/2024 (Approximate), Expires: 12/20/2025Start: 12-20-2024 End: 40-61-0521Caaoklhgsoxv / ancillary services ojswbhzoea05/25/2025 2:00 PM EDT Ancillary Procedure [facility] [address]ARD[address]N [address] [place] [id number] [phone] [facility] OBGYNStart: 07-11-2024 End: 96-86-5769Ldljmna encounter djzvloixf98/16/2025 4:00 PM EDT Office Visit [facility] [address] [place] [id number] Jordan Meade, [address] [place] [address] [facility] BCP OBStart: 12-20-2023 End: 70-84-2105ugdxjyuvxy85/24/2024 10:10 AM EDT Visit [facility] [address] [place] [address] Jordan Meade, DO [address] [facility] [place] [address] NOMS BCP OBStart: 10-31-2023 End: 49-73-9772Wjomgbk encounter mgigujnwx68/05/2024 1:20 PM EDT Office Visit [facility] [address] [address] Ailyn Marquez MD [address] [place] [address] [phone] weekFostoria City HospitalComment on above:8 weekStart: 10-84-5940Oryusidth vaccinationFlu vaccine (Season Ended)[facility]: 07-52-0679Taryinwqj for malignant neoplasm of cervixBON [facility]: 04-15-2021 End: 03-81-2572Jldrprt encounter ljlemrsjw82/19/2022 Office Visit Cardiology Ailyn Marquez MD [address] [place] [address] [facility] 00-64-8563Hasaaqyta vaccinationFlu vaccine (#1)[facility]: 10-08-2020 DTaP/Tdap/Td vaccine (7 - Td or Tdap)DTaP/Tdap/Td vaccine (7 - Td or Tdap)[facility]: 53-96-9045Csnwjpzpl for malignant neoplasm of cervixPap smearFlower Hospital: 71-61-7772Cgncbjgkw C screeningHepatitis C screenBON [facility]: 43-31-1575WRE screeningHIV screenFlower Hospital: 2004 Depression ScreenDepression ScreenFlower Hospital: 66-71-3655LPOJN-19 Vaccine (1)COVID-19 Vaccine (1)[facility]: 10-28-9266Buaeyxajr vaccine (1 of 2 - 2-dose childhood series)Varicella vaccine (1 of 2 - 2-dose childhood series) [facility]: 74-37-5921EJAWW-19 Vaccine (#1)COVID-19 Vaccine (#1)[facility]: 13-00-9737Jzrbysozf C screeningHepatitis C screen [facility] CenterBacteria identified in Urine by CultureUrine culture Microbiology Routine Missed menses Ordered: 12/20/2024[facility] HealthcareComment on above: Ordered: 12/20/2024BC W Auto Differential panel - BloodCBC and differential Lab Routine Missed menses , unspecified gestational age ([facility]) Ordered: 12/20/2024[facility] HealthcareComment on above:Ordered: 12/20/2024t thorax w/contrast materialCT CHEST PULMONARY EMBOLISM W CONTRAST Imaging STAT 09/20/2023 9:55 PM [facility]yt[facility] Cervical or vaginal smear or scraping studyPap Smear Pathology and Cytology Routine Well woman exam with routine gynecological exam Ordered: 07/11/2024[facility] Work Phone: comment on above:Ordered: 07/11/2024EKG 12 LeadEKG 12 Lead ECG STAT 09/20/2023 9:21 PM EDWINCHE[facility] CENTERHemoglobin A1c/Hemoglobin.total in BloodHemoglobin A1c Lab Routine Missed menses , unspecified gestational age ([facility]) Ordered: 12/20/2024[facility] HealthcareComment on above:Ordered: 12/20/2024Hepatitis B virus surface Ag [Presence] in Serum or Plasma by ImmunoassayHepatitis B surface antigen Lab Routine Missed menses , unspecified gestational age ([facility]) Ordered: 12/20/2024[facility] HealthcareComment on above:Ordered: 12/20/2024Hepatitis C virus Ab [Presence] in Serum or Plasma by ImmunoassayHepatitis C antibody Lab Routine Missed menses , unspecified gestational age ([facility]) Ordered: 12/20/2024[facility] HealthcareComment on above:Ordered: 12/20/2024HIV-1/HIV-2 antigen/antibody combination immunoassayHIV-1 and HIV-2 antibodies Lab Routine Missed menses , unspecified gestational age ([facility]) Ordered: 12/20/2024[facility] HealthcareComment on above:Ordered: 12/20/2024Human papilloma virus DNA [Presence] in Unspecified specimen by Probe with amplificationHPV DNA probe, amplified Microbiology Routine Well woman exam with routine gynecological exam Ordered: 07/11/2024[facility] HealthcareComment on above:Ordered: 07/11/2024Reagin Ab [Presence] in Serum by RPRRPR Lab Routine Missed menses , unspecified gestational age ([facility]) Ordered: 12/20/2024[facility] HealthcareComment on above: Ordered: 12/20/2024Rubella antibody, IgGRubella antibody, IgG Lab Routine Missed menses , unspecified gestational age ([facility]) Ordered: 12/20/2024[facility] HealthcareComment on above:Ordered: 12/20/2024 Payers DatePayer CategoryPayerPolicy [id number] Health InsuranceFRONTPATH Member Subscriber Plan / Payer (Effective 2022-Present) Name: Rossy Gutierrez Relation to Subscriber: Self Name: Rossy Gutierrez Payer ID: Not on file Type: Not on file Address: [address] [id number] FRONTPATH FRONTPATH [id number] 2022-Present [phone] [place] [id number] 1.2.840.757672.1.13.239.2.7.3.534[id number] 2.840.1.451000.3.579.[id number] 2.840.1.135528.3.579.[id number] 2.840.1.210208.3.579.2.75429-90-8637Jozxwnx5754812 2..1.060599.3.579.2.90629-96-8133Asyxnpi5110557 2.0.1.723577.3.579.2.96013-06-1124Ayvmeft7919088 2..1.448093.3.579.2.37180-11-2660Yzzsajt1015970 2..1.398419.3.579.2.79222-69-3970Jlgtfzm8608453 2..1.175476.3.579.2.79369-72-7918Oazkgre9620995 2.0.1.696881.3.579.2.00160-59-2897Bhzoqxh3552220 2..1.327054.3.579.2.25759-40-5807Mcohuff5139891 2.0.1.194058.3.579.2.83652-74-5577Buajfpz2401802 2..1.272693.3.579.2.44024-83-7602Lvfmmxu9446061 2.840.1.654803.3.579.2.64371-19-0187Aycrldz47671810 2.840.1.626868.3.579.2.48172-85-8877Csuohpu81723392 2.16840.1.093169.3.579.2.1[id number] 2.16.840.1.117044.3.579.2.03148-27-1449Prqurbz03452783 2.16840.1.784322.3.579.2.89668-09-5722Vpthrbg37145301 2.16840.1.464463.3.579.2.10115-82-2295Nqhxvyl00156685 2.16840.1.678584.3.579.2.02624-54-9178Roqzbwi16912911 2.16840.1.455892.3.579.2.583833-21-7445Hrszbfn63163222 2.840.1.925320.3.579.2.673503-94-4455Uhvklpf32721193 2.16840.1.910412.3.579.2.180505-13-7239Cjluxjz84404908 2.16840.1.354440.3.579.2.945751-48-5467Qgrizzc6859763 2.840.1.720702.3.579.2.194807-91-4896UegskgrFL85650352Eejmnwz51972564 2.840.1.217312.3.579.2.531 Social History DateTypeDetailFacilityStart: 08-29-2014 End: 02-42-9053Gsmkwwb smoking status NHISNever smoked tobaccoMercy Health Work Phone: start: 08-29-2014 End: 50-86-1029Rytlaih use and exposureSmokeless tobacco non-userMercy Health Work Phone: start: 03-09-2021 End: 68-01-4996Gxrqpxz intakeCurrent drinker of alcohol (finding)[facility] Phone: start: 03-09-2021 End: 21-56-2878Qudznvg intakeSMYTH COUNTY COMMUNITY HOSPITALStart: 70-34-5181Vuflpyg SDOH Alcohol Commentocc.[employer] Work Phone: start: 10-23-2949Wbi Assigned At BirthNot on [facility] [employer] Work Phone: start: 04-14-2023 End: 26-78-2722Xbi Assigned At [facility] CenterStart: 01-11-2024 Tobacco smoking status NHISEx-smoker (finding)[facility] Start: 85-43-7064Mpf Assigned At [facility] Start: 79-09-6934Abpxisx Commentcaffeine: occasional sodaNOMS HealthcareStart: 24-25-7391JbquccqmzBHOB HealthcareRead-Only, Retired: Physical AbuseDeniesSovah Health - DanvillexFemale (finding)[facility] Clinical Notes 08-22-2021 to 12-20-2024 Note Date & XeucFzplVlithuwi59-73-5194 History of Present illness Narrative* Huma Young MA - 12/20/2024 2:30 PM [...] in first trimester, unspecified multiple gestation type ([facility]) - OB transvaginal; Future Amenorrhea 9 weeks gestation of ([facility]) First trimester ([facility]) Missed menses - Type and screen; Future - ABO/Rh; Future - CBC and differential - Hemoglobin A1c - RPR - Rubella antibody, IgG - Hepatitis B surface antigen - Hepatitis C antibody - HIV-1 and HIV-2 antibodies - Urine culture - POCT , urine manually resulted - POCT urinalysis dipstick manually resulted , unspecified gestational age ([facility]) - Type and screen; Future - ABO/Rh; Future - CBC and differential - Hemoglobin A1c - RPR - Rubella antibody, IgG - Hepatitis B surface antigen - Hepatitis C antibody - HIV-1 and HIV-2 antibodies - Rapid drug screen, urine; Future Encounter for supervision of normal first in first trimester ([facility]) - Rapid drug screen, urine; Future Nurse Note: Pt was given [place] [employer] to one was advised to take both labs and unity to [facility]. PVU. Follow Up: Patient is to have labs drawn at directed and return to office for initial OB appointment with provider. Patient may call office as needed with any concerns or questions. Nurse Visit Completed by: Huma Young MA documented in this encounterSaint Luke's HospitalWvguhiixqy85-14-8960 History of Present illness Narrative* CINDI Manning - 12/06/2024 2:00 PM EDT Reason for Appointment: Patient ID: [...] History: Procedure Laterality Date FEMINIZING AUGMENTATION MAMMOPLASTY 2019 REVIEW OF SYSTEMS Review of Systems: Review [...] & PLAN ICD-10-CM 1. Bleeding in early ([facility]) O20.9 POCT , urine manually resulted 2. Nausea R11.0 ondansetron ODT (Zofran-ODT) 4 MG disintegrating tablet Patient presents for an er follow up due to vaginal bleeding in new . Pt found to have UTIand on keflex. Bleeding has since stopped. Pt for intact in two weeks. Documented by CINDI Manning on behalf of: CINDI Manning documented in this encounterSaint Luke's HospitalJatfyspedj38-65-7444 NoteED Patient Education Note Obstetrics and Gynecology Vaginal [...] changes that are happening to the body duringpregnancy. ??? Sex. ??? Pelvic exams. Abnormal things [...] your regular activities. General instructions ??? Take txhv-ljp-rbnmpij and prescription medicines only as told by [...] provider. Document Revised: 12/04/2020 Document Reviewed: 12/04/2020 [employer] Patient Education ? 2023 [employer] 07-11-2024 History of Present illness Narrative* Wilma Betancur, TAM - 07/11/2024 4:00 PM EDT Reason for Appointment: Patient ID: [...] History: Procedure Laterality Date FEMINIZING AUGMENTATION MAMMOPLASTY 2019 REVIEW OF SYSTEMS Review of Systems: Review [...] nursing note reviewed. Exam conducted with a books salesperson present. Vitals: Estimated body mass index is [...] Wilma Betancur LPN on behalf of: Jordan Deshaun, DO documented in this encounterSaint Luke's HospitalLdtofzmwax18-08-8187 History of Present illness Narrative* Wilma Betancur LPN - 12/20/2023 10:10 AM EDT Reason for Appointment: Patient ID: Rossy [...] nursing note reviewed. Exam conducted with a books salesperson present. Vitals: Estimated body mass index is [...] of: Jordan Meade DO documented in this encounterSaint Luke's HospitalHrkhczzczh11-26-2430 History of Present illness Narrative* Wilma Betancur LPN - 11/16/2023 11:10 AM EDT Reason for Appointment: Patient ID: Rossy [...] 1 tablet, Oral, Every 4 hours PRN Fhpghkgi-Lnk-Po-FA (, w/Iron & FA,) 27-0.8 MG tablet [...] nursing note reviewed. Exam conducted with a books salesperson present. Vitals: Estimated body mass index is [...] of: Jordan Meade DO documented in this encounterSaint Luke's HospitalMbacboausj29-69-5542 Hospital Discharge instructions* Discharge Instructions* Brittni William DO - 09/21/2023 12:24 AM EDT Continue to drink plenty of fluids. Follow-up with your doctor in the next 2 to 3 days. Return if you have any worsening symptoms. * Attachments The following attachments cannot be sent through Care Everywhere. * POTS (Postural Orthostatic Tachycardia Syndrome): General Info (Belarusian) documented in this encounterSMYTH COUNTY COMMUNITY [facility]OSPITAL05-03-2023 Evaluation note* Encounter Date Diagnosis Assessment Notes Treatment Notes Treatment Clinical Notes July, Strain of neck muscle, initial e ncounter (ICD-10 - S16.1XXA) ROM exercises, heat/ice and Tylenol Hold Motrin and trial Prednisone July,Occipital lymphadenopathy (ICD-10 - R59.0)Monitor for now. Soft and tender indicate inflammatory in character, should resolve July,Sebaceous cyst (ICD-10 - L72.3)Monitor for now may not need treatment [employer] Other 03-10-2023 Evaluation note* Encounter Date Diagnosis Assessment Notes Treatment Notes Treatment Clinical Notes May, Sore throat (ICD-10 - J02.9) May,Viral URI (ICD-10 - J06.9) Advised patient that [...] treatment plan. Patient left in stable condition May,ontact with and (suspected) exposure to other viral communicable diseases (ICD-10 - Z20.828) [employer] Other 2022 NoteOPERATIVE NOTE OPERATION DATE: 02/18/2022 PROCEDURE: Repair of fourth degree perineal laceration. PREOPERATIVE DIAGNOSIS: Fourth degree perineal laceration. POSTOPERATIVE DIAGNOSIS: Fourth degree perineal laceration. ANESTHESIA: Epidural SURGEON: Jordan Meade D.O. WILTON WEAVER: BOBO Cole URINE OUTPUT: Yellow and clear. [...] was taken to recovery in stable condition.[facility] CenterQcbtzjip34-28-2078 NoteOP Note OPERATION DATE: 01/23/2022 PROCEDURE: Repair of fourth degree perineal laceration. PREOPERATIVE DIAGNOSIS: Fourth degree perineal laceration. POSTOPERATIVE DIAGNOSIS: Fourth degree perineal laceration. ANESTHESIA: Epidural SURGEON: Jordan Meade D.O. WILTON WEAVER: BOBO Cole URINE OUTPUT: Yellow and clear. [...] was taken to recovery in stable condition.[facility] CenterFfpukoai24-72-3856 NoteOPERATIVE NOTE OPERATION DATE: 02/10/2022 PROCEDURE: Repair of fourth degree laceration. PREOPERATIVE DIAGNOSIS: Fourth degree laceration. POSTOPERATIVE DIAGNOSIS: Fourth degree laceration. ANESTHESIA: General. SURGEON: Jordan Meade D.O. WILTON WEAVER: BOBO URINE OUTPUT: Yellow and clear. BLOOD [...] sheath and this was done in a vpgoiy-du-iveow fashion. This was performed using 3-0 Vicryl. [...] x2. The patient tolerated this procedure well.[facility] 08-22-2021 NotePROCEDURE: XR CHEST 1 [...] authenticated by: DERIC VO Date: 2021-08-22 07:30[facility] CenterEvaluation note* Diagnosis Palpitations Post-COVID chronic palpitations Shortness of breath Lightheaded Dizziness and giddiness Dizziness Dizziness and giddiness documented in this encounter [employer] Work Phone: evaluation noteNo [employer] Other Evaluation note* Diagnosis Onset Date Resolution Status Viral URI with cough acuteContact with and (suspected) exposure to covid-19noneactive [facility] Work Phone: Evaluation note* Diagnosis S/P section Other postprocedural status documented in this encounter [facility] HealthcareEvaluation note* Diagnosis 6 weeks follow-up Encounter for female control documented in this encounter [facility] HealthcareEvaluation note* Diagnosis Tachycardia- Primary Tachycardia, unspecified POTS (postural orthostatic tachycardia syndrome) Tachycardia, unspecified documented in this encounter [facility]Evaluation [facility]* Diagnosis Well woman exam with routine gynecological exam Routine gynecological examination Abnormal uterine bleeding (AUB) documented in this encounter [facility] HealthcareEvaluation note* Diagnosis Bleeding in early ([facility]) Unspecified hemorrhage in early , unspecified as to episode of care Nausea Nausea alone documented in this encounter [facility] HealthcareEvaluation note* Diagnosis Twin gestation in first trimester, unspecified multiple gestation type ([facility]) Twin gestation in first trimester, unspecified multiple gestation type ([facility]) Amenorrhea Absence of menstruation 9 weeks gestation of ([facility]) First trimester ([facility]) state, incidental Missed menses , unspecified gestational age ([facility]) Encounter for supervision of normal first in first trimester ([facility]) documented in this encounter [facility] HealthcareEvaluation noteNo assessment information availableMercy Health Ctr Work Phone: History general Narrative - Reported* Type Description Date Medical History POTS Medical Historysinus tachycardiaSurgical Rvpmnez0aa degree vaginal tear after giving [id number] [employer] Other History general Narrative - Reported* Type Description Date Medical History POTS Medical Historysinus tachycardiaMedical HistoryAnxiety, generalizedSurgical Yqgbtze8gp degree vaginal tear after giving [id number] HistoryMASTOPEXY OF BOTH BREASTS WITH INSERTION OF SALINE IMPLANTSHospitalization HistorySEE SURGICAL HX [facility] [facility] [email or web address] Other Reason for referral (narrative)No reason for referral information availableOhio Valley Hospital Work Phone: Reason for Referral SpecialtyDiagnoses / ProceduresReferred By ContactReferred To ContactCardiology Diagnoses Palpitations Post-COVID chronic palpitations Shortness of breath Lightheaded Dizziness Procedures Holter Monitor 24 Hour Ailyn Marquez MD [address] [place] [address] Referral IDStatusReasonStart DateExpiration DateVisits RequestedVisits [id number]/13/202112/ Advance Directives No Advanced Directives Records FoundDocuments on File TypeDate RecordedPatient RepresentativeExplanationACP-Advance DirectiveACP-Power of Machine Icer Advance Directive Response Recorded Date/ Time Advance Directives No July 30, 2023 10:42am Summary Purpose Family History No Family History Records Found Relationship Condition Age at Onset Recorded Date/T bettye mother Heart disease Unknown fatherSupraventricular tachycardiaUnknown Chief Complaint and Reason for Visit Chief Complaint Sinus congestion, so re throat Reason for Visit Viral URI with cough Contact with and (suspected) exposure to covid-19 Chief Complaint Admit Date Unknown October 6th, 2025 3: 48pm Additional Source Comments Reason for Visit (unrecogniz ed section and content) SpecialtyDiagnoses / ProceduresReferred By ContactReferred To ContactCardiology Diagnoses Palpitations Post-COVID chronic palpitations Shortness of breath Lightheaded Dizziness Procedures Holter Monitor 24 Hour Ailyn Marquez MD [address] [place] [address] Referral IDStatusReasonStart DateExpiration DateVisits RequestedVisits [id number]/13/20200329/322713BpirzhPwfqqtfw8 week s/p c section ReasonCommentsPostpartum CareReasonCommentsShortness of BreathFor the past three hours. Hx of POTS, sent by Laura for rule out PE. Patient is appox. 32 weeks TachycardiaPatient reports intermittent high heart rates for the past three hoursReasonCommentsGynecologic ExamReasonCommentsBleeding in early pregnancyReasonCommentsAmenorrhea Care Teams (unrecognized sec tion and content) Team MemberRelationshipSpecialtyStart DateEnd Date Nick Leonardo DO [address] [place] [phone] PCP - GeneralInternal Rmvcvnsw11/13/21 Team Status: Active Member Role Status Dates Opal Cristina MD Primary Care Provider Active Team Status: Inactive Member Role Status Dates Gini Alvarado APRN Attending Provider Active S tart: January 11, 2024 End: January 11, 2024MARIA DEL CARMEN Haileriw. d. partlow developmental centerbrit Care ProviderActiveStart: January 11, 2024 End: January 11, 2024Team MemberRelationshipSpecialtyStart DateEnd Date Opal Cristina MD [address] [place] [id number] PCP - GeneralFamily Medicine07/25/23 Team Status: Inactive Member Role Status Dates Joaquim Cespedes DO Attending Provider Active Start: December 31, 2024 End: December 31, 2024 INFORMATION SOURCE (unrecogn ized section and content) DATE CREATED AUTHOR 07/01/2022 [facility] DATE CREATED AUTHOR AUTHOR'S ORGANIZ ATION 09/22/2023 [facility] DATE CREATED AUTHOR AUTHOR'S ORGANIZ ATION 12/11/2023 [facility] DATE CREATED AUTHOR AUTHOR'S ORGANIZ ATION 11/30/2024 [facility] DATE CREATED AUTHOR AUTHOR'S ORGANIZ ATION 12/14/2024 [facility] DATE CREATED AUTHOR AUTHOR'S ORGANIZ ATION 12/27/2024 [facility] DATE CREATED AUTHOR AUTHOR'S ORGANIZ ATION 01/03/2025 [facility] Goals (unrecognized section and content) Goals may be documented in a n alternate section PRN Active and Recently Administ ered Medications (unrecognized section and content) Medication Order09/18/// iopamidol (ISOVUE-370) 76 % injection 75 mL (COMPLETED) 75 mL, IntraVENous, IMG ONCE PRN, 1 dose, Starting on Tue09/20/23 at 2155, Until Discontinued, Other * 2231 (Given - Provider: Marie Mir) FOR RECORDS PERTAINING TO PATIENTS WHO [...] BE BASED ON THE PRIMARY CLINICAL RECORDS. [employer] provides no warranty or guarantee of the accuracy or completeness of information in this document.
--- OUTSIDE RECORDS SUMMARY | 2025-01-16 16:17 | XMS_ITS | Patient Health Record ---
Author Organization [facility] in [place] Address [address] [place] [address] Care Team Providers Care Lighthouse Keeper Name Role Phone Cristina Opal Primary Care Provider Allergies No Known Allergies Reason For Referral No Information Medications Medication SIG (Take, Route, Frequency, Duration) Notes Start Date End Date Status Metoprolol Succinate ER 25 MG 1 tablet Oral Once a day; Duration: 30 days ActiveIbuprofen 800 MG1 tablet with food or milk as needed Orally every 8 hrs; Duration: 30 days11/15/2023ctiveAzithromycin 250 MG2 tabs today, then 1 tab daily for 4 more days Orally Once a day; Duration: 5 day(s)04/23/2024Not-Taking Amoxicillin-Pot Clavulanate 875-125 MG1 tablet Orally every 12 hrs; Duration: 10 days05/30/2024Not-TakingVitamin DActivePrenatalActive Social History Tobacco Use: Social History Observation Description Date Details (start date - stop date) Never Smoker NA - NA Tobacco Use/Smoking Question Answer Notes Patient is a nonsmoker Alcohol Screen (Audit-C) Question Answer Notes Did you have a drink containing alcohol in the p ast year? No Ahqink6QqhwaxkvdqidhkNlssppnn Problems Problem Type SNOMED Code ICD Code Onset Dates Problem Status W/U Status Risk Notes Problem Paresthesia (finding) (66948489) Paresthe daryl of skin (R20.2) ActiveconfirmedProblemPostural orthostatic tachycardia syndrome (disorder) (446594181)Postural orthostatic tachycardia syndrome [POTS] (G90.A)Active confirmed Vital Signs Heart Rate 89 /min [...] 6months Encounters Encounter Location Date Provider Diagnosis [place] [address] [place] [address] 10/03/2024 Opal Cristina Postural orthostatic tachycardia syndrome [POTS] G90.A ; Anesthesia of skin R20.0 ; Paresthesia of skin R20.2 and Other fatigue R53.83 [place] [address] [place] [address] 04/23/2024 Opal Cristina Acute recurrent maxillary sinusitis J01.01 [place] [address] [place] [address] 05/30/2024 Opal Cristina Assessments Encounter Date Diagnosis (ICD Code) Assessment Notes Treatment Notes Treatment Clinical Notes Section Notes 04/23/2024 Acute recurrent maxillary sinusi tis (ICD-10 - J01.01) 10/03/2024Postural orthostatic tachycardia syndrome [POTS] (ICD-10 - G90.A) 10/03/2024nesthesia of skin (ICD-10 - R20.0)10/03/2024Paresthesia of skin (ICD- 10 - R20.2)10/03/2024Other fatigue (ICD-10 - R53.83) Plan Of Treatment [...] Coverage Start Date Coverage End Date [place] [address] [place] [id number] DavidsongabbyRossy Self - patient is the insured 2 Medical (General) History Medical History History ICD Code POTS Right neck/scalp lymphadenopathy - 08/17Surgical History Surgery Date(Month/Year) Breast augmentation- Dr Goodman 07/14 4th degree tear repari Dr Meade 01/16
--- OUTSIDE RECORDS SUMMARY | 2025-01-16 16:18 | XMS_ITS | Encounter Summary ---
Author Organization [facility] Address [address] [facility] [place] [address] Care Team Providers Care Stripping Shovel Oiler Name Role Phone Unavailable Primary Care Provider Unavailabl e Encounter Details DateTypeDepartmentCare Team (Latest Contact Info)Spqmsigylin12/22/2025amboo flowsheet [facility] [place] [facility] [place] [address] Jordan Meade DO [facility] [address] [place], [place] [address] Social History Tobacco UseTypesPacks/DayYears UsedDateSmoking Tobacco: NeverSmokeless Tobacco: NeverAlcohol UseStandard Drinks/WeekCommentsYes0 (1 standard drink = 0.6 oz pure alcohol)caffeine: occasional sodaEstimated Date of DeliveryCommentsYes 6Based on last menstrual period of 10/17/2024Sex and Gender Information ValueDate RecordedSex Assigned at BirthNot on fileLegal HcbQcbknz49/15/2023 7:01 PM EDTGender IdentityNot on fileSexual OrientationNot on filedocumented as of this encounter Plan of Treatment DateTypeDepartmentCare Team (Latest Contact Info)Xgwdoglvmur84/19/2025 3:30 PM ESTRoutine [facility] [place] [facility] [address] [place] [address] Jordan Meade DO [address] [place] [address] documented as of this encounter Visit Diagnoses Not on filedocumented in this encounter
--- OUTSIDE RECORDS SUMMARY | 2025-01-16 16:18 | XMS_ITS | Clinical Summary ---
Author Organization [facility] Address [address] [facility] [place] [address] Care Team Providers Care Gas Prover Name Role Phone Unavailable Primary Care Provider Unavailabl e Allergies No known active allergies Medications MedicationSigDispense QuantityRefillsLast FilledStart DateEnd DateStatus metoprolol succinate XL (Toprol-XL) 25 MG 24 hr tablet Take 25 mg by mouth in the morning.Active Drospirenone (Slynd) 4 MG tablet Indications:Abnormal uterine bleeding (AUB)Take 4 mg by mouth Daily 28 tablet Discontinued(Therapy completed) ondansetron ODT (Zofran-ODT) 4 MG disintegrating tablet Indications:NauseaTake 1 tablet (4 mg) by mouth every 6 (six) hours if needed for nausea or vomiting 30 tablet Expired Encounters DateTypeDepartmentCare AomyGzmyictsggr14/22/2025 3:00 PM EDTRoutine [facility] [place] [facility] [address] [place] [phone] Jordan Meade DO Second trimester ([facility]); 13 weeks gestation of ([facility]); POTS (postural orthostatic tachycardia syndrome)01/16/2025amboo flowsheet [facility] [place] [facility] [address] [place] [phone] Jordan Meade DO 12/20/2024 2:30 PM EDTInitial [facility] [place] [facility] [address] [facility] [place] [phone] [place]: 9w1d12/20/2024 2:00 PM EDTAncillary Procedure [facility] [place] [facility] [address] [facility] [place] [phone] Twin gestation in first trimester, unspecified multiple gestation type ([facility]) 12/12/2024Telephone [facility] [place] [facility] [address] [facility] [place] [address] Huma Young MA 12/06/2024 2:00 PM EDTOffice Visit [facility] [place] [facility] [address] [facility] [place] [phone] Reanna Bowman PA Bleeding in early ([facility]); Gbcznj2312/06/2024 1:30 PM EDTAncillary Procedure [facility] [place] [facility] [address] [facility] [place] [phone] Bleeding in early ([facility]); Missed menses; Positive urine test ([facility])11/29/2024bstract [facility] [place] [facility] [address] [facility] [place] [phone] Dalila Weiss MA 11/29/2024Telephone [facility] [place] [facility] [address] [facility] [place] [phone] Dalila Weiss MA from Last 3 Months Family History Medical HistoryRelationNameCommentsHeart diseaseBrotherHeart diseaseFather DiabetesMaternal GrandfatherHeart diseaseMaternal GrandfatherHeart diseaseMother arterioscleroticHyperlipidemiaMotherOsteoporosisMotherplacenta previaMother Ovarian cancerOtherMaternal great auntDiverticulosisPaternal GrandfatherHeart diseasePaternal GrandfatherHeart diseaseSisterRelationNameStatusCommentsBrother FatherMaternal GrandfatherMotherOtherPaternal GrandfatherSister Social History Tobacco UseTypesPacks/DayYears UsedDateSmoking Tobacco: NeverSmokeless Tobacco: NeverAlcohol UseStandard Drinks/WeekCommentsYes0 (1 standard drink = 0.6 oz pure alcohol)caffeine: occasional sodaEstimated Date of DeliveryCommentsYes 07/24/2025ased on last menstrual period of 10/17/2024Sex and Gender Information ValueDate RecordedSex Assigned at BirthNot on fileLegal ZgjIdnhve55/15/2023 7:01 PM EDTGender IdentityNot on fileSexual OrientationNot on file Last Filed Vital Signs Vital SignReadingTime TakenCommentsBlood Mautbsiv690/7201/16/2025 3:19 PM EDT Pulse--Temperature--Respiratory Rate--Oxygen Saturation--Inhaled Oxygen Concentration--Qlsdnw93.9 kg (165 lb 1.9 oz)01/16/2025 3:19 PM LQAZfhhtn387.2 cm (5' 7 )03/09/2022 12:00 PM ESTBody Mass Index25.8603/09/2022 12:00 PM EST Plan of Treatment DateTypeDepartmentCare Team (Latest Contact Info)Bjlywquveda77/19/2025 3:30 PM ESTRoutine [facility] [place] [facility] [address] [facility] [place] [phone] Jordan Meade DO [address] [facility] [address] [place], [place] [phone] Procedures Procedure NamePriorityDate/TimeAssociated DiagnosisCommentsPOCT URINALYSIS AJFPZYTMWujomek01/22/2025 3:31 PM EDT 13 weeks gestation of ([facility] POCT URINALYSIS IMGSTQRRZnpgysh68/25/2025 3:06 PM EDT Missed menses POCT , MFLNHSrmfydx28/25/2025 3:06 PM EDT Missed menses US OB LYMKVZWAGUMJTxelxqf89/25/2025 2:30 PM EDT Twin gestation in first trimester, unspecified multiple gestation type ([facility]) POCT , NNDDWOlquydd61/11/2025 2:30 PM EDT Bleeding in early ([facility]) US OB ATGVKQKQFRQBUpgoovo01/11/2025 2:11 PM EDT Bleeding in early ([facility]) Missed menses Positive urine test ([facility]) from Last 3 Months Results * (ABNORMAL) POCT urinalysis dipstick manually resulted (01/16/2025 3:31 PM EDT) Only the most recent of2 resultswithin the time period is included. ComponentValueRef RangeTest MethodAnalysis TimePerformed AtPathologist Signature Color, UAYellowClarity, UAClearGlucose, UANegativeNegative - 2000(110) ++++ mg/dLBilirubin, UANegativeNegative - 4(70) +++ mg/dLKetones, UANegativeNegative - 160(16) ++++ mg/dLSpec Grav, UA1.0101 - 1.03Blood, UANegativeNegative - 50 Drake/mcLpH, UA6.55 - 9Protein, UANegativeNegative - 2000(20) ++++ mg/dL Urobilinogen, UA2.00.2 - 12 mg/dLLeukocytes, UATraceNegative - 500+++ Dasia/mcL Nitrite, UANegativeNegative - PositiveSpecimen (Source)Anatomical Location / LateralityCollection Method / VolumeCollection TimeReceived XivkHzeds33/22/2025 3:31 PM EDT Narrative Authorizing ProviderResult TypeResult StatusCorey Deshaun DOPOINT OF CARE TEST ENTER/EDIT ORDERABLESFinal Result * (ABNORMAL) POCT , urine manually resulted (12/20/2024 3:06 PM EDT) Only the most recent of2 resultswithin the time period is included. ComponentValueRef RangeTest MethodAnalysis TimePerformed AtPathologist Signature Preg Test, UrPositiveNegativeSpecimen (Source)Anatomical Location / Laterality Collection Method / VolumeCollection TimeReceived FwgjUqwle20/25/2025 3:06 PM EDT Narrative Authorizing ProviderResult TypeResult StatusCorey Deshaun DOPOINT OF CARE TEST ENTER/EDIT ORDERABLESFinal Result * US OB transvaginal (12/20/2024 2:30 PM EDT) Only the most recent of2 resultswithin the time period is included. Anatomical RegionLateralityModalityBodyUltrasoundSpecimen (Source)Anatomical Location / LateralityCollection Method / VolumeCollection TimeReceived Time 12/20/2024 2:39 PM EDT Impressions 12/20/2024 3:05 PM EDT Findings consistent with a live intrauterine gestation, current sonographic age of 8 weeks and 4 days resulting in an estimated date of delivery of July 28, 2025. TRANSCRIBED BY: ? ELECTRONICALLY SIGNED BY: Kalpesh Louis MD Narrative 12/20/2024 3:05 PM EDT FINDINGS: A single intrauterine gestational sac is present. ??No subchorionic hemorrhage. ??A single pole is present. Normal heart rate at 173 beats per minute. ??Yolk sac also is seen. ?? Current sonographic age is 8 ??weeks and 4 days based on the crown-rump length measurement of 2.0 cm. ??Based on this age, current estimated date of delivery is ??July 28, 2025. ?? No pelvic fluid or adnexal mass present. ??Cervical length is 5.0 cm. Procedure Note Kalpesh [...] BY: ELECTRONICALLY SIGNED BY: Kalpesh Louis MD Authorizing ProviderResult TypeResult StatusCorey Deshaun DOIMG OB US PROCEDURES Final Result from Last 3 Months Insurance * Guarantor: Rossy Gutierrez TypeRelation to PatientDate of PhoneBilling AddressPersonal/LlvwvfFesf82/04[birth year][id number] [address]
--- OUTSIDE RECORDS SUMMARY | 2025-01-16 16:18 | XMS_ITS | Clinical Summary ---
Author Organization [facility] Address [address], [address] [place] [address] Care Team Providers Care Recruitment Officer Name Role Phone Opal Cristina MD Primary Care Provider + [phone] Allergies No known active allergies Medications MedicationSigDispense QuantityRefillsLast FilledStart DateEnd DateStatus Vit-Fe Fumarate-FA (PREPLUS) 27-1 MG TABS TAKE ONE TABLET BY MOUTH ONCE DAILY FOR 30 DAYS02/10/2021ctive PROFE 391.3 (180 Fe) MG CAPS TAKE ONE CAPSULE BY MOUTH DAILY11/17/2021ctive metoprolol succinate (TOPROL XL) 25 MG extended release tablet Indications:POTS (postural orthostatic tachycardia syndrome)Take 1 tablet by mouth daily 90 tablet ctive omeprazole (PRILOSEC) 20 MG delayed release capsule Take 1 capsule by mouth dailyActive Active Problems ProblemNoted DateDiagnosed DateBPV (benign positional vertigo)3Post- COVID auaydxci76/13/2021 Family History Medical HistoryRelationNameCommentsHypertensionBrother 3High CholesterolFather HypertensionFatherOsteoarthritisFatherSupraventricular tachycardiaFatherDiabetes Maternal GrandfatherIDDMDiabetesMaternal GrandmotherIDDMAortic StenosisMother Coronary Art DisMotherDiabetesPaternal GrandfatherIDDMStrokePaternal Grandfather RelationNameStatusCommentsBrother 1AlivehalfBrother 2AlivehalfBrother 3Father AliveMaternal GrandfatherDeceasedMaternal GrandmotherDeceasedMotherAlivePaternal GrandfatherDeceasedPaternal GrandmotherDeceasedSister 1AlivehalfSister 2Alive half Social History Tobacco UseTypesPacks/DayYears UsedDateSmoking Tobacco: NeverSmokeless Tobacco: NeverAlcohol UseStandard Drinks/WeekCommentsYes0 (1 standard drink = 0.6 oz pure alcohol)occ.Interpersonal Safety Domain Source: IP Abuse ScreeningAnswerDate RecordedRead-Only, Retired: Physical SwavvQkxvad37/30/2024ead-Only, Retired: Verbal UcctuUjknzb22/30/2024ead-Only, Retired: Emotional lzyxuDdqjxe07/30/2024 Read-Only, Retired: Financial KpayuUkoasj64/30/2024ead-Only, Retired: Sexual qastnDpkyrw96/30/2024CommentsUnknownSex and Gender InformationValueDate RecordedSex Assigned at BirthNot on fileLegal FscPqnilg92/04/2015 7:03 AM EDT Gender IdentityNot on fileSexual OrientationNot on file Last Filed Vital Signs Vital SignReadingTime TakenCommentsBlood Uvftovrn728/7408 1:27 PM EDT Gmiys42553 1:27 PM YOTJhahqbpbsau44 ??C (98.6 ??F)09/20/2023 9:18 PM EDT Respiratory Rbkc5651 1:27 PM EDTOxygen Ysfqopakqv88%09/20/2023 11:41 PM EDTInhaled Oxygen Concentration--Rgkgvx68.2 kg (201 lb)10/31/2023 1:27 PM EDT Ojiuol146.7 cm (5' 8 )10/31/2023 1:27 PM EDTBody Mass Index30.5608 1:27 PM EDT Plan of Treatment Health MaintenanceDue DateLast DoneCommentsDepression Brvnfx5210/29/2004Varicella vaccine (1 of 2 - 13+ 2-dose series)2005HIV eexuko4310/30/2007Hepatitis C ydzaet9810/29/2010Pap smear2013DTaP/Tdap/Td vaccine (7 - Td or Tdap) , 11/18/1997, 01/14/1995, Additional history existsCervical cancer slwbgh4110/29/2022HPV (without or with Pap)2022Flu vaccine (#1) 10/26/2024OVID-19 Vaccine ( season)2024Hepatitis B vaccine Ssjpjtdnp95/03/1994, 05/22/1993, 03/04/1993Hib bjhqtqsSpklepzns98/20/1995, 10/28/1993, 05/22/1993, Additional history existsPolio vaccineCompleted 11/18/1997, 10/28/1993, 05/22/1993, Additional history existsMeningococcal (ACWY) lhmjgabMovttsphe80/14/2011HPV bzehzidApcogytnu03/23/2012, 12/28/2010, 10/08/2010Hepatitis A cfjuxljOotjwizag94/23/2012, 10/08/2010Meningococcal B vaccineAged OutNo longer eligible based on patient's age to complete this topic Pneumococcal 0-49 years VaccineAged OutNo longer eligible based on patient's age to complete this topic Insurance * Guarantor: Rossy Gutierrez TypeRelation to PatientDate of PhoneBilling AddressPersonal/AiiewfXvdw68/04/[id number] [place] [id number] * Guarantor: Rossy Gutierrez TypeRelation to PatientDate of PhoneBilling AddressPersonal/ZpdrujXuxo35/04/[id number] [address] Care Teams Team MemberRelationshipSpecialtyStart DateEnd Opal Cristina MD [address] [place] [address] [facility]07/25/23
[2025-01-16 16:33] LABS: Hematocrit 34.2 % (36.0-48.0); Hemoglobin 11.6 g/dL (12.0-16.0); Immature Granulocytes Abs Auto 0.03 10^3/uL (0.00-0.03); Immature Granulocytes Pct Auto 0.3 % (0.0-0.5); Lymphocytes Absolute Auto 2.6 10^3/uL (1.2-3.8); Mean Corpuscular HGB Conc 33.9 g/dL (29.9-35.2); Mean Corpuscular Hemoglobin 29.4 pg (26.7-34.0); Mean Corpuscular Volume 86.8 fL (81.0-99.0); Platelet Count 332 10^3/uL (150-450); Red Blood Count 3.94 10^6/uL (4.20-5.40); White Blood Count 11.1 10^3/uL (4.0-11.0)
[2025-01-16 16:58] LABS: Cannabinoid Screen Urine NEGATIVE (NEGATIVE); Methamphetamines Screen Urine NEGATIVE (NEGATIVE); Tricyclic Antidepressant Urine NEGATIVE (NEGATIVE)
[2025-01-18 08:09] LABS: Rubella Antibodies, IgG 1.43 index (Immune >0.99)
[2025-01-18 13:08] LABS: Rapid Plasma Reagin, Quant Non Reactive titer (NonRea<1:1)
== END 2025-01-16 16:10 | disposition home or self-care (01) ==
LOC: LAB 16:10
PROVIDERS: PCP Family Medicine; Visit Provider Obstetrics & Gynecology
DX: Z34.01 Encounter for supervision of normal first pregnancy, first trimester (principal); N92.6 Irregular menstruation, unspecified
CPT/HCPCS: 36415; 80307; 83036; 85025; 86592; 86762; 86803; 86850; 86900; 86901; 87086; 87340; 87389